=== PATIENT | female | born 1985 | race Caucasian/White ===

== ENCOUNTER 2022-09-14 06:52 | Outpatient (OUT) | payer MEDICARE, MEDICAID, SELFPAY ==
[2022-09-14 07:44] LABS: Basophils Absolute Auto 0.1 10^3/uL (0.0-0.1); Basophils Percent Auto 1.1 % (0.2-2.0); Eosinophils Absolute Auto 0.1 10^3/uL (0.0-0.7); Eosinophils Percent Auto 3.1 % (0.9-7.0); Hematocrit 35.2 % (36.0-48.0); Hemoglobin 12.1 g/dL (12.0-16.0); Immature Granulocytes Abs Auto 0.02 10^3/uL (0.00-0.03); Immature Granulocytes Pct Auto 0.4 % (0.0-0.5); Lymphocytes Absolute Auto 1.5 10^3/uL (1.2-3.8); Lymphocytes Percent Auto 34.2 % (20.5-60.0); Mean Corpuscular HGB Conc 34.4 g/dL (29.9-35.2); Mean Corpuscular Hemoglobin 32.4 pg (26.7-34.0); Mean Corpuscular Volume 94.1 fL (81.0-99.0); Mean Platelet Volume 8.6 fL (9.5-13.5); Monocytes Absolute Auto 0.9 10^3/uL (0.3-0.8); Monocytes Percent Auto 19.7 % (1.7-12.0); Neutrophils Absolute Auto 1.9 10^3/uL (1.4-6.5); Neutrophils Percent Auto 41.5 % (43.0-75.0); Platelet Count 301 10^3/uL (150-450); Red Blood Count 3.74 10^6/uL (4.20-5.40); Red Cell Distribution Width 12.4 % (11.0-15.0); White Blood Count 4.5 10^3/uL (4.0-11.0)
[2022-09-14 08:52] LABS: Alanine Aminotransferase 34 U/L (14-59); Albumin Globulin Ratio 0.9; Albumin Level 3.7 g/dL (3.4-5.0); Alkaline Phosphatase 53 U/L (46-116); Anion Gap 13.9; Aspartate Amino Transferase 26 U/L (15-37); BUN Creatinine Ratio 17.6; Bilirubin Total 0.2 mg/dL (0.2-1.0); Calcium 8.8 mg/dL (8.5-10.1); Carbon Dioxide 27.2 mmol/L (21.0-32.0); Chloride 97 mmol/L (98-107); Chol HDL Ratio 1.9; Cholesterol 144 mg/dL (<=200); Estimated GFR (African America >60 (>=60); Estimated GFR (Non-African Ame >60 (>=60); Globulin 4.1 g/dL; Glucose 100 mg/dL (74-106); HDL Cholesterol 77 mg/dL (40-60); Potassium 4.1 mmol/L (3.5-5.1); Sodium 134 mmol/L (136-145); Total Protein 7.8 g/dL (6.4-8.2); Triglycerides 42 mg/dL (<=150); VLDL CHOLESTEROL 8.4 mg/dL
[2022-09-15 04:12] LABS: Carbamazepine(Tegretol),S 8.3 ug/mL (4.0-12.0)
[2022-09-17 16:09] LABS: Lamotrigine (Lamictal), Serum 4.9 ug/mL (2.0-20.0)
== END 2022-09-14 06:53 | disposition home or self-care (01) ==
LOC: LAB 06:54
PROVIDERS: PCP Family Medicine; Visit Provider Family Medicine
DX: Z79.899 Other long term (current) drug therapy (principal); F31.9 Bipolar disorder, unspecified; E78.00 Pure hypercholesterolemia, unspecified
CPT/HCPCS: 36415; 80053; 80061; 80156; 80175; 85025

== ENCOUNTER 2022-10-03 18:11 | Emergency (ER) | payer MEDICARE, MEDICAID, SELFPAY ==
[2022-10-03 18:14] VITALS: BP 163/93; PULSE 85; RESP 20; TEMP 36.7; O2SAT 98; BMI 27.3
--- NOTE | 2022-10-03 18:30 | XR_ITS ---
The [address] [address] Patient Name: PJ CARD MRN: [id number] date: 1985 Sex: F Assigned Patient Location: ER Current Patient Location: ER Accession/Order Number: [id number] Exam Date: 10/03/2022 18:40 Report Date: 10/03/2022 19:10 At the request of: KYLE LARES Procedure: XR chest 1V EXAMINATION: XR chest 1V HISTORY: Chest pain COMPARISON: None. TECHNIQUE: Portable chest FINDINGS: The lung parenchyma is free of consolidation or infiltrate. No pneumothorax or pleural effusion. The cardiac, mediastinal and hilar contours are normal. The visualized osseous structures exhibit no gross abnormality. XR/XR chest 1V IMPRESSION: No acute cardiopulmonary abnormality. Electronically authenticated by: VIKTORIYA AGUDELO Date: 10/03/2022 19:10
--- NOTE | 2022-10-03 18:30 | ECG_ITS ---
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
--- NOTE | 2022-10-03 18:30 | XR_ITS ---
[address] [address] Patient Name: PJ CARD MRN: [id number] date: 1985 Sex: F Assigned Patient Location: ER Current Patient Location: ED.MAIN Accession/Order Number: [id number] Exam Date: 10/03/2022 18:40 Report Date: 10/03/2022 19:09 At the request of: KYLE LARES Procedure: XR knee RT 4V EXAM: XR knee RT 4V HISTORY: Right knee pain after fall COMPARISON: None. TECHNIQUE: 4 views FINDINGS: IMPRESSION: Nondescript soft tissue edema. Questionable small knee effusion. No visualized fracture, dislocation, subluxation or osseous lesion. Joint spaces are maintained. Electronically authenticated by: VIKTORIYA AGUDELO Date: 10/03/2022 19:09
--- NOTE | 2022-10-03 18:31 | ED.GENADUL1 ---
HPI - General Adult General Chief complaint: Chest Pain Stated complaint: CHEST PAIN Time Seen by Provider: 10/03/22 18:20 Mode of arrival: ambulance Limitations: language barrier History of Present Illness HPI narrative: patient sent from [facility] after complaining of chest pain that began around 4pm this afternoon. On arrival the patient complains of pain in the right knee where she has some bruising. She no longer complains of chest pain. PMHx notable for anxiety. She was able to ambulate on the right knee but could not tell us what happened to the knee. Staff member who called by phone before the patient arrived reported that the patient fell on or around 09/20/22 and the right knee pain and bruising started then. but the caregiver who accompanied the patient told me that she is at the house every day and that the patient fell onto a bent right knee 2 days ago. Related Data Allergies Allergy/AdvReac Type Severity Reaction Status Date / Time amoxicillin Allergy Unknown Verified 10/03/22 18:31 aripiprazole [From Abilify] Allergy Unknown Verified 10/03/22 18:31 metyrosine Allergy Unknown Verified 10/03/22 18:31 molindone [From Moban] Allergy Unknown Verified 10/03/22 18:31 nalbuphine [From Nubain] Allergy Unknown Verified 10/03/22 18:31 divalproex sodium AdvReac Nausea Verified 10/03/22 18:31 [From Depakote] sympathomimetics Allergy Unknown Uncoded 10/03/22 18:31 vicks 44d Allergy Unknown Uncoded 10/03/22 18:31 Exam Narrative Exam Narrative: Nurses notes and vital signs reviewed and patient is not hypoxic. afebrile General: Well-appearing and in no apparent distress. Skin: Warm, dry, no pallor noted. Head: Normocephalic, atraumatic. Neck: Supple, non-tender. Eye: Pupils are equal, round and EOMI. No scleral icterus. Cardiovascular: Regular Rate and Rhythm without murmur, gallop or rub. Respiratory: No accessory muscle use or respiratory distress. Lungs are clear to auscultation, no wheezing, rales or rhonchi Chest Wall: anterior chest wall tenderness without crepitus or subcutaneous emphysema Musculoskeletal: ecchymosis noted to the right knee anteriorly. She has normal ROM in that knee, no calf or popliteal tenderness, no lower extremity edema/swelling GI: Abdomen is soft, non-distended. Normal bowel sounds. No tenderness to palpation. No rebound, guarding, or rigidity noted. Neurological: A&O x4. No cranial nerve dysfunction observed. No truncal ataxia. Moves all extremities. Sensation intact. Psychiatric: Cooperative and interactive. Normal mood and affect. Constitutional Vital Signs, click to edit/add: Last Vital Signs Temp 98.1 F 10/03/22 18:14 Pulse 85 10/03/22 18:14 Resp 20 10/03/22 18:14 BP 163/93 H 10/03/22 18:14 Pulse Ox 98 10/03/22 18:14 O2 Del Method Room Air 10/03/22 18:14 Course Vital Signs Vital signs: Vital Signs Temperature 98.1 F 10/03/22 18:14 Pulse Rate 85 10/03/22 18:14 Respiratory Rate 20 10/03/22 18:14 Blood Pressure 163/93 H 10/03/22 18:14 Pulse Oximetry 98 10/03/22 18:14 Oxygen Delivery Method Room Air 10/03/22 18:14 Temperature 98.1 F 10/03/22 18:14 Pulse Rate 85 10/03/22 18:14 Respiratory Rate 20 10/03/22 18:14 Blood Pressure 163/93 H 10/03/22 18:14 Pulse Oximetry 98 10/03/22 18:14 Oxygen Delivery Method Room Air 10/03/22 18:14 Medical Decision Making MDM Narrative Medical decision making narrative: Patient was placed on monitor and storage bin tender and EKG obtained. EKG unremarkable. CXR obtained and was negative. X-rays of the right knee did not show acute fracture or dislocation - they were unchanged when compared with X-rays on 03/08/20. Caregiver informed of results and given reassurance. ED nurse ordered to place an SEAN wrap on the patient's right knee. Patient discharged back to [facility] Data Chest x-ray: My impression: NAD xr right knee: My impression: no acute fracture or dislocation. Findings present today were also seen on 03/08/20. ECG Data Interpretation: EKG interpretation: Emergency Department physician interpretation. Normal sinus rhythm at 75bpm. Normal axis, normal intervals and no ST segment elevation or depression. Discharge Plan Discharge Chief Complaint: Chest Pain Clinical Impression: Chest pain, Contusion of right knee Patient Disposition: Home, Self-Care Time of Disposition Decision: 19:07 Instructions: Swollen Knee Joint (ED), Knee Pain (ED), Chest Wall Pain (ED) Stand Alone Forms: Portal Instructions Referrals: JOHN MUNROE DO [Primary Care Provider] - 1 week
[2022-10-03 18:32] VITALS: PULSE 85
== END 2022-10-03 19:20 | disposition home or self-care (01) ==
PROVIDERS: Emergency Provider Emergency Medicine; PCP Family Medicine
DX: R07.9 Chest pain, unspecified (principal); S80.01XA Contusion of right knee, initial encounter; W19.XXXA Unspecified fall, initial encounter; F41.9 Anxiety disorder, unspecified; Z79.899 Other long term (current) drug therapy
CPT/HCPCS: 71045; 73564; 93005; 99284

== ENCOUNTER 2023-03-09 09:25 | Outpatient (OUT) | payer MEDICARE, MEDICAID, SELFPAY ==
--- NOTE | 2023-03-09 09:54 | MR_ITS ---
The [address] [address] Patient Name: PJ CARD MRN: [id number] date: 1985 Sex: F Assigned Patient Location: MRI Current Patient Location: MRI Accession/Order Number: [id number] Exam Date: 03/09/2023 10:00 Report Date: 03/09/2023 14:21 At the request of: JOHN MUNROE Procedure: MR pituitary wo/w con MRI brain and pituitary gland with and without contrast, 03/09/2023. HISTORY: Pituitary microadenoma. COMPARISON: MRI brain and pituitary gland with and without contrast, 11/21/2019. TECHNIQUE: Multiplanar, multisequence MRI imaging of the brain and pituitary gland with and without contrast. FINDINGS: The paranasal sinuses are clear. Mastoid air cells appear clear. Nasopharynx is normal. 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 Orbital contents are unremarkable. The extracranial soft tissue structures appear unremarkable. Ventricles are normal in size. There is no hydrocephalus. 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 This is unchanged. This does not place mass effect on the tectal plate. Mild chronic microvascular ischemic changes are seen in the white matter. This is stable from prior. No subdural fluid collection. Diffusion images are normal. No acute ischemic infarction. There appears to be mild asymmetric fullness of the right side of the pituitary gland which is unchanged from the prior exam. The pituitary gland is stable in size. Questionable adenoma on the right side measuring approximately 6 mm in diameter unchanged from previous. MR/MR pituitary wo/w con IMPRESSION: 1. Stable exam. 2. Mild asymmetric fullness of the right side of the pituitary gland possibly with a small microadenoma on the right side of the pituitary measuring approximately 6 mm. The pituitary gland appears stable in size. No significant change. 3. Pineal cyst stable. The remainder of the brain is unremarkable. Electronically authenticated by: MARY ANN PURVIS Date: 03/09/2023 14:21
--- NOTE | 2023-03-09 09:55 | XR_ITS ---
The [address] [address] Patient Name: PJ CARD MRN: [id number] date: 1985 Sex: F Assigned Patient Location: MRI Current Patient Location: MRI Accession/Order Number: [id number] Exam Date: 03/09/2023 11:10 Report Date: 03/09/2023 11:27 At the request of: JOHN MUNROE Procedure: XR DEXA axial skeleton EXAMINATION: XR DEXA axial skeleton, 03/09/2023 11:10 AM EST HISTORY: Osteopenia COMPARISON: 2020, 2018, 2014. TECHNIQUE: Dual-energy X-ray absorptiometry (DEXA) bone density study performed for the axial skeleton. HISTORY: Osteopenia FINDINGS: Bone mineral density AP spine L1-L4 measures 1.159 g/sq cm. T score -0.2. WHO classification: Normal. Lowest bone mineral density left femoral neck measuring 0.867 g/sq cm. T score -1.2. WHO classification: Osteopenia XR/XR DEXA axial skeleton IMPRESSION: Osteopenia. Moderate fracture risk Electronically authenticated by: VIKTORIYA JIMÉNEZ Date: 03/09/2023 11:27
== END 2023-03-09 09:26 | disposition home or self-care (01) ==
LOC: MRI 09:27
PROVIDERS: PCP Family Medicine; Visit Provider Family Medicine
DX: E34.8 Other specified endocrine disorders (principal); M85.80 Other specified disorders of bone density and structure, unspecified site; Z79.3 Long term (current) use of hormonal contraceptives
CPT/HCPCS: 70553; 77080; A9575

== ENCOUNTER 2023-04-28 06:28 | Outpatient (OUT) | payer MEDICARE, MEDICAID, SELFPAY ==
--- OUTSIDE RECORDS SUMMARY | 2023-04-28 06:31 | XMS_ITS | CCD ---
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 Name Role Phone SYSTEM, PROVIDER NOT IN Admitting Unavaila ble SYSTEM, PROVIDER NOT IN Referring Unavaila ble EVANS KILGORE Primary Care Unavailable Unavailable Primary Care Provider Unavailabl e PROVIDER, UNKNOWN Attending Unavailable PROVIDER, UNKNOWN Admitting Unavailable MUNROE, DR JOHN Gates Consulting Unavailable MUNROE, DR JOHN Gates Attending Unavailable MUNROE, DR JOHN Gates Admitting Unavailable MUNROE, DR JOHN Gates Primary Care Unavailable KARASIK ., DR PRUITT Admitting Unavailabl e KARASIK ., DR PRUITT Consulting Unavailabl e KARASIK ., DR PRUITT Attending Unavailabl e MUNROE, DR JOHN Gates Primary Care Unavailable MUNROE, DR JOHN Gates Consulting Unavailable MUNROE, DR JOHN Gates Attending Unavailable MUNROE, DR JOHN Gates Admitting Unavailable MUNROE, DR JOHN Gates Primary Care Unavailable OJHN MUNROE Primary Care Physician SHANEKA, JOHN Attending Unavailable MUNROE, JOHN Admitting Unavailable MUNROE, JOHN Attending Unavailable MUNROEJOHN Admitting Unavailable Allergies Allergy Classification Reported Allergen(s) Allergy Type Date of Onset Reaction(s) Facility (3 sources) Amoxicillin; Translations: [AMOXICILLIN] Drug Allergy 3 [facility] (4 sources) ARIPiprazole; Translations: [ABILIFY] Drug Allergy 3 [facility] Work Phone: (3 sources) Dextromethorphan ; Translations: [DEXTROMETHORPHA N HBR] Drug Allergy 3 [facility] (3 sources) metyroSINE; Translations: [METYROSINE] Drug Allergy 3 [facility] (3 sources) Molindone; Translations: [MOLINDONE] [facility] ([facility] sources) Nalbuphine; Translations: [NALBUPHINE] Drug Allergy 3 [facility] (3 sources) Valproate; Translations: [VALPROIC ACID] Drug Allergy 9 [facility] (3 sources) Food; Translations: [FOOD] Propensity to adverse reactions to drug 3 [facility] (3 sources) Sympathomimetics ; Translations: [SYMPATHOMIMETIC S] Propensity to adverse reactions to drug 3 [facility] (1 source) Amoxicillin Drug Allergy [facility] (1 source) metyroSINE Drug Allergy [facility] (1 source) Molindone Drug Allergy [facility] (1 source) Nalbuphine Drug Allergy [facility] (1 source) Valproate Drug Allergy [facility] (1 source) [facility] [address] [place] [address] Care Drug allergy (disorder) [facility] Medications Current Medications Medication Drug Class(es) Dates Sig (Normalized) Sig (Original) busPIRone hydrochloride 10 mg oral tablet (2 sources) take 1 tablet by mouth twice daily busPIRone (BUSPAR) 10 MG tablet Take 10 mg by mouth 2 times daily. 0 Active calcium polycarbophil (2 sources) Calcium Polycarbophil (FIBER-LAX ORAL) Take by mouth. 0 Active carBAMazepine 100 mg chewable tablet (2 sources) Mood Stabilizer carbamazepine (TEGRETOL) 100 MG chewable tablet carbamazepine 100 mg chewable tablet 0 Active cloNIDine hydrochloride 0.2 mg oral tablet (2 sources) Central alpha-2 Adrenergic Agonist Start: 06-12-2020 cloNIDine (CATAPRES) 0.2 MG tablet dicyclomine hydrochloride 20 mg oral tablet (2 sources) Anticholinergic take 1 tablet by mouth every six hours dicyclomine (BENTYL) 20 MG tablet Take 20 mg by mouth every 6 hours. 0 Active docusate sodium 100 mg oral capsule (2 sources) take 1 capsule by mouth three times daily docusate sodium (COLACE) 100 MG capsule Take 100 mg by mouth 3 times daily. 0 Active fenofibrate 134 mg oral capsule (2 sources) Peroxisome Proliferator Receptor alpha Agonist take 1 capsule by mouth once daily at breakfast fenofibrate micronized (LOFIBRA) 134 MG capsule Take 134 mg by mouth daily (with breakfast). 0 Active guanFACINE 1 mg oral tablet (2 sources) Central alpha-2 Adrenergic Agonist take 1.5 mg by mouth twice daily guanfacine (TENEX) 1 MG tablet Take 1.5 mg by mouth 2 times daily. 0 Active lamoTRIgine 25 mg oral tablet (2 sources) Mood Stabilizer, Anti-epileptic Agent take 2 tablets by mouth once daily lamotrigine (LAMICTAL) 25 MG tablet Take 50 mg by mouth daily. 0 Active loratadine 10 mg oral tablet (2 sources) take 1 tablet by mouth once daily loratadine (CLARITIN) 10 MG tablet Take 10 mg by mouth daily. 0 Active metoprolol tartrate 100 mg oral tablet (2 sources) beta-Adrenergic Molly take 1 tablet by mouth twice daily metoprolol (LOPRESSOR) 100 MG tablet Take 100 mg by mouth 2 times daily. 0 Active montelukast 10 mg oral tablet (2 sources) Leukotriene Receptor Antagonist take 1 tablet by mouth once daily montelukast (SINGULAIR) 10 MG tablet Take 10 mg by mouth daily. 0 Active naltrexone hydrochloride 50 mg oral tablet (2 sources) Opioid Antagonist take 1 tablet by mouth once daily naltrexone (DEPADE) 50 MG tablet Take 50 mg by mouth daily. 0 Active OLANZapine 20 mg oral tablet (2 sources) Atypical Antipsychotic take 1 tablet by mouth once daily olanzapine (ZYPREXA) 20 MG tablet Take 20 mg by mouth daily. 0 Active omeprazole 20 mg delayed release oral capsule (2 sources) Proton Pump Inhibitor take 1 capsule by mouth once daily omeprazole (PRILOSEC) 20 MG capsule Take 20 mg by mouth daily. 0 Active raNITIdine 150 mg oral tablet (2 sources) Histamine-2 Receptor Antagonist take 1 tablet by mouth twice daily ranitidine (ZANTAC) 150 MG tablet Take 150 mg by mouth 2 times daily. 0 Active zolpidem tartrate 10 mg oral tablet (2 sources) gamma-Aminobutyric Acid-ergic Agonist Start: 06-10-2020 zolpidem (AMBIEN) 10 MG tablet Problems Active Problems Problem Classification Problem Date Documented Date Episodic/Chronic Attention-deficit, conduct, and disruptive behavior disorders (2 sources) Attention deficit hyperactivity disorder; Translations: [Attention-deficit hyperactivity disorder, unspecified type] Onset: 05-25-2012 06-03-2018 Chronic Developmental disorders (2 sources) Moderate intellectual disability; Translations: [Moderate intellectual disabilities] Onset: 05-25-2012 05-25-2012 Chronic Disorders of teeth and jaw (2 sources) Chronic periodontitis; Translations: [Chronic periodontitis, unspecified] Onset: 06-09-2012 06-09-2012 Chronic Genitourinary symptoms and ill-defined conditions (5 sources) Unspecified abnormal findings in urine; Translations: [Other abnormal findings in urine] Onset: 05-17-2022 Episodic Past or Other Problems Problem Classification Problem Date Documented Date Episodic/Chronic Disorders of teeth and jaw (6 sources) Dental caries; Translations: [Dental caries, unspecified] Onset: 06-09-2012 06-09-2012 Episodic Immunizations and screening for infectious disease (1 source) Encounter for screening for human papillomavirus (HPV); Translations: [ENC SCREENING HUMAN PAPILLOMAVIRUS] Onset: 04-29-2022 Episodic Other screening for suspected conditions (not mental disorders or infectious disease) (6 sources) Possible ; Translations: [Encounter for test, result unknown] Onset: 06-09-2012 06-09-2012 Episodic Results Test Name Value Interpretation Reference Range Facility CarbamazepineOrdered By: SYS TEM SYSTEM on 04-13-2023 Carbamaz Lvl 6.9 microgram/mL Normal 4.0-12.0 Rem[facility] Comment on above: Performed By: #### 2 [id number], [id number] #### [facility] [address] [place] [address] Physician Orderon 04-13-2023 Physician Order [id number] 0#1.00TIFF Normal [facility] SodiumOrdered By: SYSTEM SYS TEM on 04-13-2023 Sodium [Moles/Vol] 134 mmol/L Low 135-145 Remiso l [facility] Comment on above: Performed By: #### 2 [id number], [id number] #### [facility] [address] [place] [address] CHEMISTRYOrdered By: SYSTEM SYSTEM on 02-23-2023 Carbamaz Lvl 8.7 microgram/mL Normal 4.0 - 12.0 mcg/mL Remisol Chem Sodium [Moles/Vol] 123 mmol/L Low 135 - 145 mmol/L Remisol Chem Carbamazepineon 02-23-2023 Carbamaz Lvl 8.7 microgram/mL Normal 4.0-12.0 [facility] Comment on above: Performed By: #### 2 [id number], [id number] #### [facility] [address] [place] [address] Physician Orderon 02-23-2023 Physician Order [id number] 6#1.00TIFF Normal [facility] Sodiumon 02-23-2023 Sodium [Moles/Vol] 123 mmol/L Low 135-145 [facility] Comment on above: Performed By: #### 2 [id number], [id number] #### [facility] [address] [place] [address] Progress Noteson 06-10-2022 Book Jogger Authentication Interface Message Text ----- May at 3:52:48 PM ----- ----- Provider: [id number] Mario -- Clinic: [place] ----- OR EVALUATION Patient presents for evaluation to determine best course of treatment due to history of . Moderate intellectual disabillity seizure disorder Patient is accompanied by caregiver for today's appointment. Patient cooperated for full intraoral exam. Clinical findings: Normal findings It is best suited that this patient have full comprehensive examination, radiographs and treatment completed in the OR setting. Explained that the patient will be added to our OR waiting list, and the legal guardian will be contacted once a time slot becomes available. Legal Guardian: Jessica Anderson ( family friend) Called [facility], she did not answer , consent could not be taken today Request for dental treatment in the OR was sent out [phone] NOTE: Note: Pt seen in the OR about 2 years ago. Next Visit: OR ----- Signed on May at 4:11:20 PM ----- ----- Provider: [id number] Ed Obrien DDS -- Clinic: [place] ----- Normal [facility] UA (CLEAN/CATCH) PHOTOGRAPHIC EQUIPMENT MECHANIC/MICRO I F IND.on 05-17-2022 Bilirubin Ql (U) Negative Normal NEGATIVE [facility] Comment on above: Performed By: #### U ACSIND #### [facility] [address] [place] [address] Dr. Pio Mack Clarity (U) CLEAR Normal CLEAR [facility] Comment on above: Performed By: #### U ACSIND #### [facility] [address] [address] [address] Pio Mack Color (U) LT. YELLOW Normal YELLOW [facility] Comment on above: Performed By: #### U ACSIND #### [facility] [address] [place] [address] Dr. Pio Mack Glucose Ql (U) Negative Normal NEGATIVE [facility] Comment on above: Performed By: #### U ACSIND #### [facility] [address] [place] [address] Dr. Pio Mack Hemoglobin Ql (U) Negative Normal NEGATIVE [facility] Comment on above: Performed By: #### U ACSIND #### [facility] [address] [place] [address] Dr. Pio Mack Ketones Ql (U) Negative Normal NEGATIVE [facility] Comment on above: Performed By: #### U ACSIND #### [facility] [address] [place] [address] Dr. Pio Mack LEUKOCYTES Negative Normal NEGATIVE [facility] Comment on above: Performed By: #### U ACSIND #### [facility] [address] [address] [address] Pio Mack Nitrite Ql (U) Negative Normal NEGATIVE [facility] Comment on above: Performed By: #### U ACSIND #### [facility] [address] [place] [address] Dr. Pio Mack pH (U) 7.5 [pH] Normal 5-9 [facility] Comment on above: Performed By: #### U ACSIND #### [facility] [address] [place] [address] Dr. Pio Mack SPEC GRAVITY 1.010 Normal 1.005-<=1.02 5 [facility] Comment on above: Performed By: #### U ACSIND #### [facility] [address] [place] [address] Dr. Pio Mack UA PROTEIN Negative Normal NEGATIVE/ TRACE [facility] Comment on above: Performed By: #### U ACSIND #### [facility] [address] [address] [address] Pio Mack UR MICRO IND NOT INDICATED Normal [facility] Comment on above: Performed By: #### U ACSIND #### [facility] [address] [address] [address] Pio Mack Urobilinogen Qn (U) 0.2 {Polina'U}/dL Normal 0.2 - 1. 0 [facility] Comment on above: Performed By: #### U ACSIND #### [facility] [address] [place] [address] Dr. Pio Mack PAP ACOG PANEL 2: 30 to 65on 05-06-2022 . . Normal [facility] Comment on above: Result Comment: Perf ormed at: WB Performed By: #### 4 [id number] #### [facility] [address] [place] [address] Dr. Pio Mack Age Gdln ACOG Testing 30-65 Normal [facility] Comment on above: Performed By: #### 4 [id number] #### [facility] [address] [place] [address] Dr. Pio Mack DIAGNOSIS: Comment Normal [facility] Comment on above: Result Comment: NEGA TIVE FOR INTRAEPITHELIAL LESION OR MALIGNANCY. Performed at: WB Performed By: #### 4 [id number] #### [facility] [address] [place] [address] Dr. Pio Mack HPV Aptima Negative Normal Negative [facility] Comment on above: Result Comment: This nucleic acid amplification test detects fourteen high-risk HPV types (16,18,31,33,35,39,45,51,52,56,58,59,66,68) without differentiation. Performed at: =G Performed By: #### 4 [id number] #### [facility] [address] [address] [address] Pio Mack HPV Genotype Reflex Comment Normal [facility] Comment on above: Result Comment: Crit ershashank not met, HPV Genotype not performed. Performed at: WB Performed By: #### 4 [id number] #### [facility] [address] [place] [address] Dr. Pio Mack Methodology: Comment Normal [facility] Comment on above: Result Comment: This liquid based ThinPrep(R) pap test was screened with the use of an image guided system. Performed at: WB Performed By: #### 4 [id number] #### [facility] [address] [place] [address] Dr. Pio Mack Note: Comment Normal [facility] Comment on above: Result Comment: The Pap smear is a screening test designed to aid in the detection of premalignant and malignant conditions of the uterine cervix. It is not a diagnostic procedure and should not be used as the sole means of detecting cervical cancer. Both false-positive and false-negative reports do occur. . Performed at: WB Performed By: #### 4 [id number] #### [facility] [address] [place] [address] Dr. Pio Mack Performed by: Comment Normal [facility] Comment on above: Result Comment: Ayesha Poe, Assembly Technician (ASCP) Performed at: WB Performed By: #### 4 [id number] #### [facility] [address] [place] [address] Dr. Pio Mack Specimen adequacy: Comment Normal [facility] Comment on above: Result Comment: Sati sfactory for evaluation. Endocervical and/or squamous metaplastic cells (endocervical component) are present. Performed at: WB Performed By: #### 4 [id number] #### [facility] [address] [place] [address] Dr. Pio Mack Encounters Encounter Date Encounter Type Care Provider Facility Start: 04-13-2023 End: 04-14-2023 ambulatory JOHN MUNROE Facility[facility] Start: 04-13-2023 End: 04-13-2023 Lab Drop off JOHN MUNROE [facility] Start: 02-23-2023 End: 02-23-2023 Lab Drop off JOHN MUNROE [facility] Start: 02-23-2023 End: 02-24-2023 ambulatory JOHN MUNROE Facility:[facility] Start: 07-21-[address] JOHN MUNROE Fac ility:[facility] Start: 06-10-2022 End: 06-14-2022 ambulatory UNKNOWN PROVIDER Facility:[facility] Start: 06-10-2022 End: 06-14-2022 Patient encounter procedure Scarlett Albarran DDS Work Phone: [facility] Start: 05-17-2022 End: 05-17-[address] JOHN MUNROE Facility:[facility] Start: 04-28-2022 End: 04-28-[address] SONAL CARRERO . Facility: Start: 04-06-2022 [facility] Start: 05-08-2018 End: 05-12-2018 Patient encounter procedure PROVIDER NOT IN SYSTEM [facility] Plan of Treatment Date Care Activity Detail Author Start: 2036 Shingles (RZV) Vaccine (1 of 2) Shingles (RZV) Vaccine (1 of 2) [facility] Start: 11-11-2029 Tetanus vaccination Tetanus (Td or Tdap) Booster [facility] Start: 05-03-2022 End: 05-03-2022 Patient encounter procedure 05/03/2022 Procedure Visit Dentistry Holli Nguyen DDS [address] [place] [address] [facility] Start: 11-21-2021 Influenza vaccination Influenza Vaccine (#1) [facility] Start: 02-11-2021 COVID-19 Vaccine (4 - Booster for Pfizer series) COVID-19 Vaccine (4 - Booster for Pfizer series) [facility] Start: 04-21-2008 Annual wellness visit Annual Wellness Visit (G0438) [facility] Start: 07-05-2007 Screening for malignant neoplasm of cervix Pap Smear [facility] Start: 2004 Hepatitis C screening Hepatitis C Antibody [facility] Start: 2001 HIV screening HIV Test [facility] Start: 1986 Screening for malignant neoplasm of breast Mammography shared decision making (35 through 39 years) [facility] Immunizations Immunization Date Immunization Notes Care Provider Susi malone 12-17-2020 influenza, injectabl e, quadrivalent, preservative free [facility] 12-17-2020 influenza virus vacc ine, unspecified formulation [facility] 03-25-2020 Pfizer (12+ yrs) KAE S-COV-2 (COVID-19) vaccine, mRNA, spike protein, LNP, pres. free, 30 mcg/0.3mL dose (WXG=222) [facility] 03-04-2020 Pfizer (12+ yrs) KAE S-COV-2 (COVID-19) vaccine, mRNA, spike protein, LNP, pres. free, 30 mcg/0.3mL dose (KPI=272) [facility] 11-28-2019 influenza, injectabl e, quadrivalent, preservative free [facility] 11-12-2019 tetanus toxoid, redu naila diphtheria toxoid, and acellular pertussis vaccine, adsorbed [facility] 11-30-2017 influenza, injectabl e, quadrivalent, preservative free [facility] 12-15-2016 influenza, injectabl e, quadrivalent, contains preservative [facility] 12-12-2014 influenza, injectabl e, quadrivalent, preservative free [facility] 11-10-2010 influenza, seasonal, injectable [facility] 07-07-2006 meningococcal polysa ccharide (groups A, C, Y and W-135) diphtheria toxoid conjugate vaccine (MCV4P) [facility] 11-29-2001 TD(adult) unspecified formulation [facility] 05-04-2001 hepatitis B vaccine, pediatric or pediatric/adolescent dosage [facility] 11-10-2000 hepatitis B vaccine, pediatric or pediatric/adolescent dosage [facility] 10-10-2000 hepatitis B vaccine, pediatric or pediatric/adolescent dosage [facility] 05-30-1998 measles, mumps and r ubella virus vaccine [facility] 12-03-1991 TD(adult) unspecified formulation [facility] 12-03-1991 trivalent poliovirus vaccine, live, oral [facility] 09-06-1988 diphtheria, tetanus toxoids and pertussis vaccine [facility] 09-06-1988 trivalent poliovirus vaccine, live, oral [facility] 01-23-1988 haemophilus influenz ae type b vaccine, conjugate unspecified formulation [facility] 04-30-1987 measles, mumps and r ubella virus vaccine [facility] 1986 diphtheria, tetanus toxoids and pertussis vaccine [facility] 1986 diphtheria, tetanus toxoids and pertussis vaccine [facility] 1986 trivalent poliovirus vaccine, live, oral [facility] 1986 diphtheria, tetanus toxoids and pertussis vaccine [facility] 1986 trivalent poliovirus vaccine, live, oral [facility] Payers Date Payer Category Payer Medicaid [id number] 2007 Medicare MEDICARE MEDICAR E PART A & B [id number] 2007-Present [address] [place] [address] Medicare [id number] 1986 Unknown [id number] 1986 Unknown [id number] 1986 Unknown [id number] 1986 Unknown [id number] 1986 Unknown [id number] 1986 Unknown [id number] 1958 Medicaid [id number] 1958 Medicare [id number] Social History Date Type Detail Facility Start: 06-13-2020 Tobacco smoking stat us [facility] Never smoked tobacco [facility] Work Phone: Start: 06-13-2020 Tobacco use and exposure Smokeless tobacco non-user [facility] Start: 07-15-2020 Alcohol intake Lifetime non-d mark (finding) [facility] Start: 06-13-2020 History SDOH Alcohol Frequency 1 [facility] Start: 1985 Sex Assigned At Not on file [facility] Tobacco smoking status No Smokin g Status Entered [facility] Sex Assigned At Female [facility] History of Present illness Narrative 06-10-2022 Scarlett Albarran DDS - 06/10/2022 1:29 PM EDT Note Date & Type Note Facility 06-10-2022 History of Presen t illness Narrative ----- May at 3:52:48 PM ----- ----- Provider: [id number] Resident Betsy -- Clinic: [place] ----- OR EVALUATION Patient presents for evaluation to determine best course of treatment due to history of . Moderate intellectual disabillity seizure disorder Patient is accompanied by caregiver for today's appointment. Patient cooperated for full intraoral exam. Clinical findings: Normal findings It is best suited that this patient have full comprehensive examination, radiographs and treatment completed in the OR setting. Explained that the patient will be added to our OR waiting list, and the legal guardian will be contacted once a time slot becomes available. Legal Guardian: Jessica Anderson ( family friend) Called [facility], she did not answer , consent could not be taken today Request for dental treatment in the OR was sent out [phone] NOTE: Note: Pt seen in the OR about 2 years ago. Next Visit: OR ----- Signed on May at 4:11:20 PM ----- ----- Provider: [id number] Ed Obrien DDS -- Clinic: [place] ----- documented in this encounter [facility] Evaluation + Plan note Note Date & Type Note Facility Evaluation + Plan note No data available for this section [facility] Hospital Discharge instructions Note Date & Type Note Facility Hospital Discharge instructions No data available for this section [facility] Progress note Note Date & Type Note Facility Progress note No data available for this section [facility] Summary Purpose Family History No Family History Records FoundNo Family History Records FoundNo Family History Records Found No data available for this section No data available for this section No Family History Records Found Advance Directives No Advanced Directives Records FoundNo Advanced Directives Records FoundNo Advanced Directives Records FoundNo Advanced Directives Records Found Additional Source Comments INFORMATION SOURCE (unrecogn ized section and content) DATE CREATED AUTHOR 05/12/2018 [facility] DATE CREATED AUTHOR AUTHOR'S ORGANIZ ATION 06/17/2022 [facility] DATE CREATED AUTHOR AUTHOR'S ORGANIZ ATION 07/30/2022 [facility] DATE CREATED AUTHOR AUTHOR'S ORGANIZ ATION 04/21/2023 [facility] Patient Care team informatio n (unrecognized section and content) Personnel Name: JOHN MUNROE DO Address: Address: [address] [place] [address] Personnel Name: MUNROEJOHN NEVAREZ DO Address: Address: [address] [place] [address] FOR RECORDS PERTAINING TO PATIENTS WHO ARE OR HAVE BEEN ENROLLED IN A CHEMICAL DEPENDENCY/SUBSTANCEABUSE PROGRAM, SOME INFORMATION MAY BE OMITTED. This clinical summary was aggregated from multiple sources. Caution should be exercised in using it in the provision of clinical care. This summary normalizes information from multiple sources, and as a consequence, information in this document may materially change the coding, format and clinical context of patient data. In addition, data may be omitted in some cases. CLINICAL DECISIONS SHOULD BE BASED ON THE PRIMARY CLINICAL RECORDS. [facility] [email or web address] [facility]. provides no warranty or guarantee of the accuracy or completeness of information in this document.
[2023-04-28 07:03] LABS: Sodium 131 mmol/L (136-145)
== END 2023-04-28 06:29 | disposition home or self-care (01) ==
LOC: LAB 06:29
PROVIDERS: PCP Family Medicine; Visit Provider Family Medicine
DX: R79.9 Abnormal finding of blood chemistry, unspecified (principal)
CPT/HCPCS: 36415; 84295

== ENCOUNTER 2023-05-24 21:41 | Inpatient (IN) | payer MEDICARE, MEDICAID, SELFPAY ==
--- NOTE | 2023-05-24 21:47 | ED_ITS ---
HPI - Allergic Reaction General Chief complaint: Allergic Reaction Stated complaint: Allergic Reaction Time Seen by Provider: 05/24/23 21:44 History of Present Illness HPI narrative: patient is mentally slow. Resides at senior living. Developed swelling of her face this afternoon. Physician on called prescribed antibiotic concerned it may be an infection of her sinuses. She now presents with what is suspected to be a possible allergic reaction as she has facial swelling. no fever. she is not able to provide history other than to say it feels hot. she does not appear short of breath and has no stridor MD complaint: Reports allergic reaction, hives and facial swelling Related Data Home Medications ?Medication ?Instructions ?Recorded ?Confirmed atomoxetine 40 mg capsule 40 mg PO QPM 05/24/23 05/25/23 atomoxetine 60 mg capsule 60 mg PO QAM 05/24/23 05/25/23 calcium carbonate 600 mg-vitamin 1 tab PO BID 05/24/23 05/25/23 D3 20 mcg (800 unit) tablet carbamazepine 200 mg 200 mg PO Q12H 05/24/23 05/25/23 tablet,extended release,12 hr carbamazepine 400 mg 400 mg PO DAILY 05/24/23 05/25/23 tablet,extended release,12 hr cefdinir 300 mg capsule 300 mg PO Q12H 05/24/23 05/25/23 clonidine HCl 0.2 mg tablet 0.2 mg PO Q8H 05/24/23 05/25/23 dicyclomine 20 mg tablet 20 mg PO BID 05/24/23 05/25/23 docusate sodium 100 mg capsule 200 mg PO BID 05/24/23 05/28/23 fenofibrate micronized 134 mg 134 mg PO BEDTIME 05/24/23 05/25/23 capsule fluorouracil 5 % topical cream 1 applic topical BID 05/24/23 05/25/23 guanfacine 2 mg tablet 2 mg PO TID 05/24/23 05/25/23 lamotrigine 150 mg tablet 300 mg PO BEDTIME 05/24/23 05/25/23 lamotrigine 200 mg tablet 200 mg PO DAILY 05/24/23 05/25/23 loratadine 10 mg tablet 10 mg PO Q24H 05/24/23 05/24/23 metoprolol tartrate 100 mg tablet 100 mg PO QID 05/24/23 05/25/23 montelukast 10 mg tablet 10 mg PO DAILY 05/24/23 05/25/23 olanzapine 20 mg tablet 20 mg PO QPM 05/24/23 05/28/23 omeprazole 20 mg capsule,delayed 20 mg PO DAILY 05/24/23 05/25/23 release paliperidone 6 mg tablet,extended 6 mg PO BID 05/24/23 05/25/23 release 24 hr calcium polycarbophil 625 mg 1,250 mg PO DAILY 05/25/23 05/25/23 tablet (Fiber-Lax) levonorgestrel-ethinyl estradiol 1 tab PO DAILY 05/25/23 05/25/23 0.1 mg-20 mcg tablet (Aviane) lamotrigine 100 mg tablet 100 mg PO QPM 05/28/23 05/28/23 olanzapine 10 mg tablet (Zyprexa) 10 mg PO QPM 05/28/23 05/28/23 Previous Rx's ?Medication ?Instructions ?Recorded doxycycline hyclate 100 mg capsule 100 mg PO BID 10 days #20 caps 05/28/23 prednisone 50 mg tablet 50 mg PO DAILY 5 days #5 tabs 05/28/23 Allergies Allergy/AdvReac Type Severity Reaction Status Date / Time acetaminophen [From Tylenol] Allergy Intermediate Swelling Verified 05/24/23 23:35 of the Eye guaifenesin [From Mucinex] Allergy Intermediate Swelling Verified 05/24/23 21:48 of the Eye amoxicillin Allergy Unknown Verified 05/24/23 21:48 aripiprazole [From Abilify] Allergy Unknown Verified 05/24/23 21:48 metyrosine Allergy Unknown Verified 05/24/23 21:48 molindone [From Moban] Allergy Unknown Verified 05/24/23 21:48 nalbuphine [From Nubain] Allergy Unknown Verified 05/24/23 21:48 divalproex sodium AdvReac Nausea Verified 05/24/23 21:48 [From Depakote] sympathomimetics Allergy Unknown Uncoded 05/24/23 21:48 vicks 44d Allergy Unknown Uncoded 05/24/23 21:48 Review of Systems ROS Status of ROS unobtainable due to mental status [facility] Medical History (Updated 05/28/23 @ 10:35 by Bhanu Nieves MD) Chest pain ?R07.9 - Chest pain, unspecified (ICD-10) Contusion of right knee ?S80.01XA - Contusion of right knee, initial encounter (ICD-10) Facial rash ?R21 - Rash and other nonspecific skin eruption (ICD-10) Cyst of pineal gland ?E34.8 - Other specified endocrine disorders (ICD-10) Mood disorder ?F39 - Unspecified mood [affective] disorder (ICD-10) Bursitis of right patella ?M70.51 - Other bursitis of knee, right knee (ICD-10) Astigmatism ?H52.209 - Unspecified astigmatism, unspecified eye (ICD-10) Essential familial hypercholesterolemia ?E78.01 - Familial hypercholesterolemia (ICD-10) Hormone imbalance ?E34.9 - Endocrine disorder, unspecified (ICD-10) GERD (gastroesophageal reflux disease) ?K21.9 - Gastro-esophageal reflux disease without esophagitis (ICD-10) Constipation ?K59.00 - Constipation, unspecified (ICD-10) Seasonal allergies ?J30.2 - Other seasonal allergic rhinitis (ICD-10) Seizure ?R56.9 - Unspecified convulsions (ICD-10) Microadenoma ?D36.9 - Benign neoplasm, unspecified site (ICD-10) Osteopenia ?M85.80 - Other specified disorders of bone density and structure, unspecified site (ICD-10) Hyperopia ?H52.00 - Hypermetropia, unspecified eye (ICD-10) Bipol I sing man rem NOS ?F30.3 - Manic episode in partial remission (ICD-10) PTSD (post-traumatic stress disorder) ?F43.10 - Post-traumatic stress disorder, unspecified (ICD-10) Dissociative disorder ?F44.9 - Dissociative and conversion disorder, unspecified (ICD-10) Impulse control disorder ?F63.9 - Impulse disorder, unspecified (ICD-10) ADHD (attention deficit hyperactivity disorder) ?F90.9 - Attention-deficit hyperactivity disorder, unspecified type (ICD-10) Surgical History (Updated 05/24/23 @ 22:22 by Sara Rodriguez) History of cholecystectomy ?Z90.49 - Acquired absence of other specified parts of digestive tract (ICD- 10) Exam Constitutional Other: awake. swelling and erythema of her face [place] about her eyes and her cheeks oral cavity appears dry. limited eval as patient not opening her mouth completely. No obvious swelling. No effort to breath or appearance of distress related to her breathing HENMT Common normals: normocephalic and head/scalp atraumatic Other: puffiness of bilat eyelids R>L Eye Common normals: EOMs intact bilaterally and conjunctivae normal Respiratory Common normals: normal respiratory effort, no retractions, no use of accessory muscles and clear to auscultation bilaterally Cardio Common normals: regular rate, regular rhythm, S1 normal heart sound and S2 normal heart sound GI Common normals: Normal to inspection, nondistended, normoactive bowel sounds present Extremity Common normals: normal to inspection and full ROM Neuro Common normals: moves all extremities and no focal motor deficits Course Course Hospital Course: Reason for admission: See ER note and H&P for details. 37 y/o female with a history of MRDD who presented from senior living with possible allergic reaction. Developed facial swelling and PCP started cefdinir. Developed increased redness and swelling and sent to ER. WBC elevated at 24.[address] showed periorbital cellulitis and admitted. Hospital course: Started fortaz and flagyl. Redness and swelling worsened and added vancomycin. C/o itching and on solu-medrol. Repeat CT showed increased edema but no abscess. Gradually improved. WBC decreased. Afebrile. Redness and swelling much improved. Tolerating oral intake. Discharged home in stable condition. Will resume cefdinir and add doxycycline. Take prednisonen x 5 days. Resume home medication as directed. MDM - Allergic Reaction MDM Narrative Medical decision making narrative: patient presents with what appears to be an allergic reaction involving only her face. She has a dry eczematous confluent rash of her face that does not have the appearance of cellulitis . she has puffiness of both periorbital eyelids R>L. Difficult to grade how tender her eyelids are because anywhere you touch her hurts. Her WBC is elevated with left shift but she is afebrile . treated in the department as an allergic reaction with pepcid, benadryl and solumedrol but not real change with the treatment. CT face ordered and returned with findings suggestive of orbital cellulitis. Discussed with hospitalist and will plan admission Imaging Data CT scan - chest: Radiologist's impression: ITS Impressions Facial Bones CT 05/25/23 00:07 IMPRESSION: 1. Findings suggest acute right periorbital and infraorbital cellulitis involving mostly infraorbital soft tissues. Critical value was reported to Physician: Ryan Felix by Dr. Amari Cat on 05/25/2023 12:46 AM EDT. Electronically authenticated by: AMARI CAT Date: 05/25/2023 00:46 Discharge Plan Discharge Chief Complaint: Allergic Reaction Clinical Impression: Cellulitis of right orbit, Facial rash Patient Disposition: Admitted As Inpatient Discharge Date/Time: 05/25/23 01:28
[2023-05-24 21:48] VITALS: BP 137/104; TEMP 37.1; BMI 29.2
--- OUTSIDE RECORDS SUMMARY | 2023-05-24 21:51 | XMS_ITS | CCD ---
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[employer] Name Role Phone SYSTEM, PROVIDER NOT IN [...] DR JOHN Gates Primary Care Unavailable MUNROE, JOHN Primary Care Physician [phone] SHANEKA, JOHN Attending Unavailable MUNROE, JOHN Admitting Unavailable MUNROE, JOHN Attending Unavailable MUNROE, JOHN Admitting Unavailable DOLKAMINI CRENSHAW Attending Unavailable Allergies Allergy Classification Reported Allergen(s) Allergy Type Date of Onset Reaction(s) Facility (3 sources) Amoxicillin; Translations: [AMOXICILLIN] Drug Allergy 3 [facility] (4 sources) ARIPiprazole; Translations: [ABILIFY] Drug Allergy 3 [facility] Work Phone: (3 sources) Dextromethorphan ; Translations: [DEXTROMETHORPHA N HBR] Drug Allergy 3 [facility] (3 sources) metyroSINE; Translations: [METYROSINE] Drug Allergy 3 [facility] (3 sources) Molindone; Translations: [MOLINDONE] [facility] ([facility] sources) Nalbuphine; Translations: [NALBUPHINE] Drug Allergy 3 [facility] (3 sources) Valproate; Translations: [VALPROIC ACID] Drug Allergy 9 [facility] (3 sources) Food; Translations: [FOOD] Propensity to adverse reactions to drug 3 [facility] (3 sources) Sympathomimetics ; Translations: [SYMPATHOMIMETIC S] Propensity to adverse reactions to drug 3 [facility] (1 source) Amoxicillin Drug Allergy [facility] (1 source) metyroSINE Drug Allergy [facility] (1 source) Molindone Drug Allergy [facility] (1 source) Nalbuphine Drug Allergy [facility] (1 source) Valproate Drug Allergy [facility] (1 source) [facility] [address] [place] [address] Care Drug allergy (disorder) [facility] Medications Current Medications Medication Drug [...] Comment on above: Performed By: #### 2 [id number], [id number] #### [facility] [address] [place] [address] Physician Orderon 04-13-2023 Physician Order [id number] 0#1.00TIFF Normal [facility] SodiumOrdered By: SYSTEM SYS TEM on 04-13-2023 Sodium [Moles/Vol] 134 mmol/L Low 135-145 Remiso l Chem Comment on above: Performed By: #### 2 [id number], [id number] #### [facility] [address] [place] [address] CHEMISTRYOrdered By: SYSTEM SYSTEM on 02-23-2023 Carbamaz Lvl 8.7 microgram/mL Normal 4.0 - 12.0 mcg/mL Remisol Chem Sodium [Moles/Vol] 123 mmol/L Low 135 - 145 mmol/L Remisol Chem Carbamazepineon 02-23-2023 Carbamaz Lvl 8.7 microgram/mL Normal 4.0-12.0 [facility] Comment on above: Performed By: #### 2 [id number], [id number] #### [facility] [address] [place] [address] Physician Orderon 02-23-2023 Physician Order [id number] 6#1.00TIFF Normal [facility] Sodiumon 02-23-2023 Sodium [Moles/Vol] 123 mmol/L Low 135-145 [facility] Comment on above: Performed By: #### 2 [id number], [id number] #### [facility] [address] [place] [address] Progress Noteson 06-10-2022 Wildlife Refuge Manager Authentication Interface Message Text ----- May at 3:52:48 PM ----- ----- Provider: [id number] Mario -- Clinic: [place] ----- OR EVALUATION Patient presents for evaluation [...] treatment in the OR was sent out [phone] NOTE: Note: Pt seen in the OR about 2 years ago. 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 Pio Mack Clarity (U) CLEAR Normal CLEAR [facility] Comment on above: Performed By: #### U ACSIND #### [facility] [address] [address] [address] Pio Mack Color (U) LT. YELLOW Normal YELLOW [facility] Comment on above: Performed By: #### U ACSIND #### [facility] [address] [address] [address] Pio Mack Glucose Ql (U) Negative Normal NEGATIVE [facility] Comment on above: Performed By: #### U ACSIND #### [facility] [address] [place] [address] Dr. Pio Mack Hemoglobin Ql (U) Negative Normal NEGATIVE [facility] Comment on above: Performed By: #### U ACSIND #### [facility] [address] [address] [address] Pio Mack Ketones Ql (U) Negative Normal NEGATIVE [facility] Comment on above: Performed By: #### U ACSIND #### [facility] [address] [address] [address] Pio Mack LEUKOCYTES Negative Normal NEGATIVE [facility] Comment on above: Performed By: #### U ACSIND #### [facility] [address] [address] [address] Pio Mack Nitrite Ql (U) Negative Normal NEGATIVE [facility] Comment on above: Performed By: #### U ACSIND #### [facility] [address] [address] [address] Pio Mack pH (U) 7.5 [pH] Normal 5-9 [facility] Comment on above: Performed By: #### U ACSIND #### [facility] [address] [place] [address] Dr. Pio Mack SPEC GRAVITY 1.010 Normal 1.005-<=1.02 5 [facility] Comment on above: Performed By: #### U ACSIND #### [facility] [address] [address] [address] Pio Mack UA PROTEIN Negative Normal NEGATIVE/ TRACE [facility] Comment on above: Performed By: #### U ACSIND #### [facility] [address] [address] [address] Pio Mack UR MICRO IND NOT INDICATED Normal [facility] Comment on above: Performed By: #### U ACSIND #### [facility] [address] [address] [address] Pio Mack Urobilinogen Qn (U) 0.2 {Polina'U}/dL Normal 0.2 - 1. 0 [facility] Comment on above: Performed By: #### U ACSIND #### [facility] [address] [place] [address] Dr. Pio Mack PAP ACOG PANEL 2: 30 to 65on 05-06-2022 . . Normal [facility] Comment on above: Result Comment: Perf ormed at: WB Performed By: #### 4 [id number] #### [facility] [address] [place] [address] Dr. Pio Mack Age Gdln ACOG Testing 30-65 Normal [facility] Comment on above: Performed By: #### 4 [id number] #### [facility] [address] [place] [address] Dr. Pio Mack DIAGNOSIS: Comment Normal [facility] Comment on above: Result Comment: NEGA TIVE FOR INTRAEPITHELIAL LESION OR MALIGNANCY. Performed at: WB Performed By: #### 4 [id number] #### [facility] [address] [place] [address] Dr. Pio Mack HPV Aptima Negative Normal Negative [facility] Comment on above: Result Comment: This nucleic acid amplification test detects fourteen high-risk HPV types (16,18,31,33,35,39,45,51,52,56,58,59,66,68) without differentiation. Performed at: =G Performed By: #### 4 [id number] #### [facility] [address] [address] [address] Pio Mack HPV Genotype Reflex Comment Normal [facility] Comment on above: Result Comment: Crit eria not met, HPV Genotype not performed. Performed at: WB Performed By: #### 4 [id number] #### [facility] [address] [place] [address] Dr. Pio Mack Methodology: Comment Normal [facility] Comment on above: Result Comment: This liquid based ThinPrep(R) pap test was screened with the use of an image guided system. Performed at: WB Performed By: #### 4 [id number] #### [facility] [address] [place] [address] Dr. Pio Mack Note: Comment Normal [facility] Comment on above: Result Comment: The Pap smear is a screening test designed to aid in the detection of premalignant and malignant conditions of the uterine cervix. It is not a diagnostic procedure and should not be used as the sole means of detecting cervical cancer. Both false-positive and false-negative reports do occur. . Performed at: WB Performed By: #### 4 [id number] #### [facility] [address] [place] [address] Dr. Pio Mack Performed by: Comment Normal [facility] Comment on above: Result Comment: Ayesha Poe, Sand Sifter (ASCP) Performed at: WB Performed By: #### 4 [id number] #### [facility] [address] [place] [address] Dr. Pio Mack Specimen adequacy: Comment Normal [facility] Comment on above: Result Comment: Sati sfactory for evaluation. Endocervical and/or squamous metaplastic cells (endocervical component) are present. Performed at: WB Performed By: #### 4 [id number] #### [facility] [address] [place] [address] Dr. Pio Mack Encounters Encounter Date Encounter Type Care Provider Facility Start: 05-04-2023 End: 05-04-2023 ambulatory KAMINI RAMIREZ Not Available Start: 04-13-2023 End: 04-14-2023 ambulatory JOHN MUNROE Facility:[facility] Start: 04-13-2023 End: 04-13-2023 Lab Drop off JOHN MUNROE [facility] Start: 02-23-2023 End: 02-23-2023 Lab Drop off JOHN MUNROE [facility] Start: 02-23-2023 End: 02-24-2023 ambulatory JOHN MUNROE Facility:[facility] Start: 07-21-[address] JOHN MUNROE Fac ility:[facility] Start: 06-10-2022 End: 06-14-2022 ambulatory UNKNOWN PROVIDER Facility:[facility] Start: 06-10-2022 End: 06-14-2022 Patient encounter procedure Scarlett Avis DDSylvia Work Phone: [facility] Start: 05-17-2022 End: 05-17-[address] JOHN MUNROE Facility:[facility] Start: 04-28-2022 End: 04-28-[address] SONAL CARRERO . Facility: Start: 04-06-2022 Letter encounter [facility] Start: 05-08-2018 End: 05-12-2018 Patient encounter procedure PROVIDER NOT IN SYSTEM [facility] Plan of Treatment Date Care Activity Detail Author Start: 2036 Shingles (RZV) Vaccine (1 of 2) Shingles (RZV) Vaccine (1 of 2) [facility] Start: 11-11-2029 Tetanus vaccination Tetanus (Td or Tdap) Booster [facility] Start: 05-03-2022 End: 05-03-2022 Patient encounter procedure 05/03/2022 Procedure Visit Dentistry Holli Nguyen DDS [address] [place] [address] [facility] Start: 11-21-2021 Influenza vaccination Influenza Vaccine (#1) [facility] Start: 02-11-2021 COVID-19 Vaccine (4 - Booster for Pfizer series) COVID-19 Vaccine (4 - Booster for Pfizer series) [facility] Start: 04-21-2008 Annual wellness visit Annual Wellness Visit (G0438) [facility] Start: 07-05-2007 Screening for malignant neoplasm of cervix Pap Smear [facility] Start: 2004 Hepatitis C screening Hepatitis C Antibody [facility] Start: 2001 HIV screening HIV Test [facility] Start: 1986 Screening for malignant neoplasm of breast Mammography shared decision making (35 through 39 years) [facility] Immunizations Immunization Date Immunization Notes Care Provider Fa cility 12-17-2020 influenza, injectabl e, quadrivalent, preservative free [facility] 12-17-2020 influenza virus vacc ine, unspecified formulation [facility] 03-25-2020 Pfizer (12+ yrs) KAE S-COV-2 (COVID-19) vaccine, mRNA, spike protein, LNP, pres. free, 30 mcg/0.3mL dose (KWQ=933) [facility] 03-04-2020 Pfizer (12+ yrs) KAE S-COV-2 (COVID-19) vaccine, mRNA, spike protein, LNP, pres. free, 30 mcg/0.3mL dose (FDI=672) [facility] 11-28-2019 influenza, injectabl e, quadrivalent, preservative free [facility] 11-12-2019 tetanus toxoid, redu naila diphtheria toxoid, and acellular pertussis vaccine, adsorbed [facility] 11-30-2017 influenza, injectabl e, quadrivalent, preservative free [facility] 12-15-2016 influenza, injectabl e, quadrivalent, contains preservative [facility] 12-12-2014 influenza, injectabl e, quadrivalent, preservative free [facility] 11-10-2010 influenza, seasonal, injectable [facility] 07-07-2006 meningococcal polysa ccharide (groups A, C, Y and W-135) diphtheria toxoid conjugate vaccine (MCV4P) [facility] 11-29-2001 TD(adult) unspecified formulation [facility] 05-04-2001 hepatitis B vaccine, pediatric or pediatric/adolescent dosage [facility] 11-10-2000 hepatitis B vaccine, pediatric or pediatric/adolescent dosage [facility] 10-10-2000 hepatitis B vaccine, pediatric or pediatric/adolescent dosage [facility] 05-30-1998 measles, mumps and r ubella virus vaccine [facility] 12-03-1991 TD(adult) unspecified formulation [facility] 12-03-1991 trivalent poliovirus vaccine, live, oral [facility] 09-06-1988 diphtheria, tetanus toxoids and pertussis vaccine [facility] 09-06-1988 trivalent poliovirus vaccine, live, oral [facility] 01-23-1988 haemophilus influenz ae type b vaccine, conjugate unspecified formulation [facility] 04-30-1987 measles, mumps and r ubella virus vaccine [facility] 1986 diphtheria, tetanus toxoids and pertussis vaccine [facility] 1986 diphtheria, tetanus toxoids and pertussis vaccine [facility] 1986 trivalent poliovirus vaccine, live, oral [facility] 1986 diphtheria, tetanus toxoids and pertussis vaccine [facility] 1986 trivalent poliovirus vaccine, live, oral [facility] Payers Date Payer Category Payer Medicaid [id number] 2007 Medicare MEDICARE MEDICAR E PART A & B [id number] 2007-Present [address] [place] [address] Medicare [id number] 1986 Unknown [id number] 1986 Unknown [id number] 1986 Unknown [id number] 1986 Unknown [id number] 1986 Unknown [id number] 1986 Unknown [id number] 1986 Unknown [id number] 1959 Medicaid [id number] 1958 Medicare [id number] Social History Date Type Detail Facility [facility]: [facility] Work Phone: Start: 06-13-2020 Tobacco use and exposure Smokeless tobacco non-user [facility] Start: 07-15-2020 Alcohol intake Lifetime non-d mark (finding) [facility] Start: 06-13-2020 History SDOH Alcohol Frequency 1 [facility] Start: 1985 Sex Assigned At Not on file [facility] Tobacco smoking status No Smokin g Status Entered [facility] Sex Assigned At Female [facility] History of Present illness Narrative 06-10-2022 Scarlett Albarran DDS - 06/10/2022 1:29 PM EDT Note Date & Type Note Facility 06-10-2022 History of Presen t illness Narrative ----- May at 3:52:48 PM ----- ----- Provider: [id number] Albarran, -- Clinic: [place] ----- OR EVALUATION Patient presents for evaluation [...] treatment in the OR was sent out [phone] NOTE: Note: Pt seen in the OR about 2 years ago. Next Visit: OR ----- Signed on May at 4:11:20 PM ----- ----- Provider: Satinder Obrien DDS -- Clinic: [place] ----- documented in this encounter [facility] Evaluation + Plan note Note Date & Type Note Facility Evaluation + Plan note No data available for this section [facility] Hospital Discharge instructions Note Date & Type Note Facility Hospital Discharge instructions No data available for this section [facility] Progress note Note Date & Type Note Facility Progress note No data available for this section [facility] Summary Purpose Family History No Family History Records FoundNo Family History Records FoundNo Family History Records Found No data available for this section No data available for this section No Family History Records FoundNo Family History Records Found Advance Directives No Advanced Directives Records FoundNo Advanced Directives Records FoundNo Advanced Directives Records FoundNo Advanced Directives Records FoundNo Advanced Directives Records Found Additional Source Comments INFORMATION SOURCE (unrecogn ized section and content) DATE CREATED AUTHOR 05/12/2018 [facility] DATE CREATED AUTHOR AUTHOR'S ORGANIZ ATION 06/17/2022 [facility] DATE CREATED AUTHOR AUTHOR'S ORGANIZ ATION 07/30/2022 [facility] DATE CREATED AUTHOR AUTHOR'S ORGANIZ ATION 04/21/2023 [facility] DATE CREATED AUTHOR AUTHOR'S ORGANIZ ATION 05/05/2023 [facility]IC Patient Care team informatio n (unrecognized section and content) Personnel Name: JOHN MUNROE DO Address: Address: [address] [place] [address] Personnel Name: JOHN MUNROE DO Address: Address: [address] [place] [address] FOR RECORDS PERTAINING TO PATIENTS WHO ARE [...] BE BASED ON THE PRIMARY CLINICAL RECORDS. [facility] [employer] [facility]. provides no warranty or guarantee of the accuracy or completeness of information in this document.
[2023-05-24 22:03] LABS: Hematocrit 33.7 % (36.0-48.0); Hemoglobin 11.2 g/dL (12.0-16.0); Mean Corpuscular HGB Conc 33.2 g/dL (29.9-35.2); Mean Corpuscular Hemoglobin 31.4 pg (26.7-34.0); Mean Corpuscular Volume 94.4 fL (81.0-99.0); Mean Platelet Volume 8.4 fL (9.5-13.5); Platelet Count 262 10^3/uL (150-450); Red Blood Count 3.57 10^6/uL (4.20-5.40); Red Cell Distribution Width 12.4 % (11.0-15.0); White Blood Count 24.4 10^3/uL (4.0-11.0)
[2023-05-24] MEDS: METHYLPREDNISOLONE SOD SUCC PF 125 MG/2 ML VIAL IVP (22:06)
[2023-05-24] MEDS: FAMOTIDINE/PF 20 MG/2 ML VIAL IV (22:06)
[2023-05-24] MEDS: DIPHENHYDRAMINE HCL 50 MG/ML (1ML) VIAL IV (22:06)
[2023-05-24 22:12] VITALS: O2SAT 98
[2023-05-24 22:13] LABS: Anion Gap 16.4; Calcium 9.3 mg/dL (8.5-10.1); Carbon Dioxide 21.5 mmol/L (21.0-32.0); Chloride 95 mmol/L (98-107); Estimated GFR (African America >60 (>=60); Estimated GFR (Non-African Ame >60 (>=60); Glucose 136 mg/dL (74-106); Potassium 3.9 mmol/L (3.5-5.1); Sodium 129 mmol/L (136-145)
--- NOTE | 2023-05-24 22:14 | PC.NURSE ---
Pt from [facility], sent in for swelling of bilateral eyes and cheeks. Pt was given mucinex at 0800 for nasal congestion and swelling began around 1200. Pt was then started on 300mg omnicef at 1930 with no improvement. Swelling continued to worsen around eyes. Pt given 650mg tylenol and 40mg ibuprofen at 1930.
[2023-05-24 22:49] LABS: Lymphocytes Absolute Manual 0.24 10^3/uL (1.20-3.80); Toxic Granulation 4+
[2023-05-24 22:50] LABS: Toxic Vacuolation 1+
[2023-05-24 23:17] VITALS: PULSE 95; O2SAT 96
[2023-05-24] MEDS: IBUPROFEN 400 MG TABLET PO (23:56)
[2023-05-25] VITALS (11 sets, daily range): BP systolic 112–155; BP diastolic 72–88; PULSE 90–113; TEMP 36.6–38.3; O2SAT 94–100; BMI 30.1
--- NOTE | 2023-05-25 00:07 | CT_ITS ---
The [address] [address] Patient Name: PJ CARD MRN: [id number] date: 1985 Sex: F Assigned Patient Location: ER Current Patient Location: ER Accession/Order Number: [id number] Exam Date: 05/25/2023 22:15 Report Date: 05/25/2023 00:46 At the request of: RYAN FELIX Procedure: CT facial bones wo con EXAM: CT facial bones wo con HISTORY: facial swelling COMPARISON: None. TECHNIQUE: Multiplanar, multisequence imaging obtained through the facial bones and orbits without contrast. This CT exam was performed using one or more of the following dose reduction techniques: Automated exposure control, adjustment of the mA and/or kV according to patient size, or use of iterative reconstruction technique. Thin section coronal and sagittal images were reconstructed from the axial data set. All images were reviewed and interpreted. FINDINGS: There is acute left infraorbital soft tissue swelling with edema extending post septal along the inferior left orbital wall. Findings concerning for orbital cellulitis involving the inferior orbital fat. The right globe is intact. Some sparing of the superior renal fat. No retrobulbar or involvement. Symmetric appearance of the right and left optic nerves and extraocular muscles. Left orbit and periorbital tissues are normal. Normal osseous structures. There is some nodular mucosal thickening at base of right maxillary sinus. No air-fluid levels. The rest of the sinuses are clear. Mastoid air cells are clear. Bilateral temporomandibular joints are normal. Upper cervical vertebrae are unremarkable. CT/CT facial bones wo con IMPRESSION: 1. Findings suggest acute right periorbital and infraorbital cellulitis involving mostly infraorbital soft tissues. Critical value was reported to Physician: Ryan Felix by Dr. Amari Cat on 05/25/2023 12:46 AM EDT. Electronically authenticated by: AMARI CAT Date: 05/25/2023 00:46
[2023-05-25] MEDS: CLINDAMYCIN PHOSPHATE/D5W 900 MG/50 ML PIGGYBACK 100 MG IV (00:58)
[2023-05-25] MEDS: VANCOMYCIN HCL 1,000 MG in 0.9 % SODIUM CHLORIDE 250 ML 250 MG IV (01:44)
--- OUTSIDE RECORDS SUMMARY | 2023-05-25 01:46 | XMS_ITS | CCD ---
Author Organization [facility] Care Team Providers Care Dowel Inspector Name Role Phone SYSTEM, PROVIDER NOT IN [...] Care Unavailable MUNROE, JOHN Primary Care Physician SHANEKA, JOHN Attending Unavailable MUNROE, JOHN Admitting Unavailable MUNROE, JOHN Attending Unavailable MUNROE, JOHN Admitting Unavailable DOLKAMINI CRENSHAW Attending Unavailable Allergies Allergy Classification Reported Allergen(s) Allergy Type Date of Onset Reaction(s) Facility (3 sources) Amoxicillin; Translations: [AMOXICILLIN] Drug Allergy 3 [facility] (4 sources) ARIPiprazole; Translations: [ABILIFY] Drug Allergy 3 [facility] Work Phone: (3 sources) Dextromethorphan ; Translations: [DEXTROMETHORPHA N HBR] Drug Allergy 3 [facility] (3 sources) metyroSINE; Translations: [METYROSINE] Drug Allergy 3 [facility] (3 sources) Molindone; Translations: [MOLINDONE] Drug [facility] [address] [facility] (3 sources) Nalbuphine; Translations: [NALBUPHINE] Drug Allergy [address] [facility] (3 sources) Valproate; Translations: [VALPROIC ACID] Drug Allergy [address] [facility] (3 sources) Food; Translations: [FOOD] Propensity to adverse reactions to drug [address] [facility] (3 sources) Sympathomimetics ; Translations: [SYMPATHOMIMETIC S] Propensity to adverse reactions to drug [address] [facility] (1 source) Amoxicillin Drug Allergy [facility] (1 source) metyroSINE Drug Allergy [facility] (1 source) Molindone Drug Allergy [facility] (1 source) Nalbuphine Drug Allergy [facility] (1 source) Valproate Drug Allergy [facility] (1 source) [facility] [address] [place] [address] Care Drug allergy (disorder) [facility] Medications Current Medications Medication Drug [...] Comment on above: Performed By: #### 2 [id number], [id number] #### [facility] [address] [place] [address] Physician Orderon 04-13-2023 Physician Order [id number] 0#1.00TIFF Normal [facility] SodiumOrdered By: SYSTEM SYS TEM on 04-13-2023 Sodium [Moles/Vol] 134 mmol/L Low 135-145 Remiso l Chem Comment on above: Performed By: #### 2 [id number], [id number] #### [facility] [address] [place] [address] CHEMISTRYOrdered By: SYSTEM SYSTEM on 02-23-2023 Carbamaz Lvl 8.7 microgram/mL Normal 4.0 - 12.0 mcg/mL Remisol Chem Sodium [Moles/Vol] 123 mmol/L Low 135 - 145 mmol/L Remisol Chem Carbamazepineon 02-23-2023 Carbamaz Lvl 8.7 microgram/mL Normal 4.0-12.0 [facility] Comment on above: Performed By: #### 2 [id number], [id number] #### [facility] [address] [place] [address] Physician Orderon 02-23-2023 Physician Order [id number] 6#[id number] Normal [facility] Sodiumon 02-23-2023 Sodium [Moles/Vol] 123 mmol/L Low 135-145 [facility] Comment on above: Performed By: #### 2 [id number], [id number] #### [facility] [address] [place] [address] Progress Noteson 06-10-2022 Packaging Engineer Authentication Interface Message Text ----- May at 3:52:48 PM ----- ----- Provider: [id number] Mario -- Clinic: [place] ----- OR EVALUATION Patient presents for evaluation [...] treatment in the OR was sent out [phone] NOTE: Note: Pt seen in the OR about 2 years ago. Next Visit: OR ----- Signed on May at 4:11:20 PM ----- ----- Provider: [id number] Ed Obrien DDS -- Clinic: [place] ----- Normal [facility] [employer] [facility] UA (CLEAN/CATCH) FACILITIES ENGINEER/MICRO I F IND.on 05-17-2022 Bilirubin Ql (U) Negative Normal NEGATIVE [facility] Comment on above: Performed By: #### U ACSIND #### [facility] [address] [place] [address] Dr. Pio Mack Clarity (U) CLEAR Normal CLEAR [facility] Comment on above: Performed By: #### U ACSIND #### [facility] [address] [address] [address] Pio Mack Color (U) LT. YELLOW Normal YELLOW [facility] Comment on above: Performed By: #### U ACSIND #### [facility] [address] [address] [address] Pio Mack Glucose Ql (U) Negative Normal NEGATIVE [facility] Comment on above: Performed By: #### U ACSIND #### [facility] [address] [place] [address] Dr. Pio Mack Hemoglobin Ql (U) Negative Normal NEGATIVE [facility] Comment on above: Performed By: #### U ACSIND #### [facility] [address] [address] [address] Pio Mack Ketones Ql (U) Negative Normal NEGATIVE [facility] Comment on above: Performed By: #### U ACSIND #### [facility] [address] [address] [address] Pio Mack LEUKOCYTES Negative Normal NEGATIVE [facility] Comment on above: Performed By: #### U ACSIND #### [facility] [address] [address] [address] Pio Mack Nitrite Ql (U) Negative Normal NEGATIVE [facility] Comment on above: Performed By: #### U ACSIND #### [facility] [address] [address] [address] Pio Mack pH (U) 7.5 [pH] Normal 5-9 [facility] Comment on above: Performed By: #### U ACSIND #### [facility] [address] [place] [address] Dr. Pio Mack SPEC GRAVITY 1.010 Normal 1.005-<=1.02 5 [facility] Comment on above: Performed By: #### U ACSIND #### [facility] [address] [address] [address] Pio Mack UA PROTEIN Negative Normal NEGATIVE/ TRACE [facility] Comment on above: Performed By: #### U ACSIND #### [facility] [address] [address] [address] Pio Mack UR MICRO IND NOT INDICATED Normal [facility] Comment on above: Performed By: #### U ACSIND #### [facility] [address] [address] [address] Pio Mack Urobilinogen Qn (U) 0.2 {Polina'U}/dL Normal 0.2 - 1. 0 [facility] Comment on above: Performed By: #### U ACSIND #### [facility] [address] [place] [address] Dr. Pio Mack PAP ACOG PANEL 2: 30 to 65on 05-06-2022 . . Normal [facility] Comment on above: Result Comment: Perf ormed at: WB Performed By: #### 4 [id number] #### [facility] [address] [place] [address] Dr. Pio Mack Age Gdln ACOG Testing 30-65 Normal [facility] Comment on above: Performed By: #### 4 [id number] #### [facility] [address] [place] [address] Dr. Pio Mack DIAGNOSIS: Comment Normal [facility] Comment on above: Result Comment: NEGA TIVE FOR INTRAEPITHELIAL LESION OR MALIGNANCY. Performed at: WB Performed By: #### 4 [id number] #### [facility] [address] [place] [address] Dr. Pio Mack HPV Aptima Negative Normal Negative [facility] Comment on above: Result Comment: This nucleic acid amplification test detects fourteen high-risk HPV types (16,18,31,33,35,39,45,51,52,56,58,59,66,68) without differentiation. Performed at: =G Performed By: #### 4 [id number] #### [facility] [address] [address] [address] Pio Mack HPV Genotype Reflex Comment Normal [facility] Comment on above: Result Comment: Crit eria not met, HPV Genotype not performed. Performed at: WB Performed By: #### 4 [id number] #### [facility] [address] [place] [address] Dr. Pio Mack Methodology: Comment Normal [facility] Comment on above: Result Comment: This liquid based ThinPrep(R) pap test was screened with the use of an image guided system. Performed at: WB Performed By: #### 4 [id number] #### [facility] [address] [place] [address] Dr. Pio Mack Note: Comment Normal [facility] Comment on above: Result Comment: The Pap smear is a screening test designed to aid in the detection of premalignant and malignant conditions of the uterine cervix. It is not a diagnostic procedure and should not be used as the sole means of detecting cervical cancer. Both false-positive and false-negative reports do occur. . Performed at: WB Performed By: #### 4 [id number] #### [facility] [address] [place] [address] Dr. Pio Mack Performed by: Comment Normal [facility] Comment on above: Result Comment: Ayesha Poe, Screening Specialist (ASCP) Performed at: WB Performed By: #### 4 [id number] #### [facility] [address] [place] [address] Dr. Pio Mack Specimen adequacy: Comment Normal [facility] Comment on above: Result Comment: Sati sfactory for evaluation. Endocervical and/or squamous metaplastic cells (endocervical component) are present. Performed at: WB Performed By: #### 4 [id number] #### [facility] [address] [place] [address] Dr. Pio Mack Encounters Encounter Date Encounter Type Care Provider Facility Start: 05-04-2023 End: 05-04-2023 ambulatory KAMINI RAMIREZ Not Available Start: 04-13-2023 End: 04-14-2023 ambulatory [place] MUNROE [place] [place]: 04-13-2023 End: 04-13-2023 Lab Drop off JOHN MUNROE [facility] Start: 02-23-2023 End: 02-23-2023 Lab Drop off JOHN MUNROE [facility] Start: 02-23-2023 End: 02-24-2023 ambulatory [place] MUNROE [place] Start: 07-21-[address] JOHN MUNROE Fac ility:[facility] Start: 06-10-2022 End: 06-14-2022 ambulatory UNKNOWN PROVIDER Facility:[facility] Start: 06-10-2022 End: 06-14-2022 Patient encounter procedure Scarlett Avis DDSylvia Work Phone: [facility] Start: 05-17-2022 End: 05-17-[address] JOHN MUNROE Facility:[facility] Start: 04-28-2022 End: 04-28-[address] SONAL CARRERO . Facility: Start: 04-06-2022 Letter encounter [facility] Start: 05-08-2018 End: 05-12-2018 Patient encounter procedure PROVIDER NOT IN SYSTEM [facility] Plan of Treatment Date Care Activity Detail Author Start: 2036 Shingles (RZV) Vaccine (1 of 2) Shingles (RZV) Vaccine (1 of 2) [facility] Start: 11-11-2029 Tetanus vaccination Tetanus (Td or Tdap) Booster [facility] Start: 05-03-2022 End: 05-03-2022 Patient encounter procedure 05/03/2022 Procedure Visit Dentistry Holli Nguyen DDS [address] [place] [address] [facility] Start: 11-21-2021 Influenza vaccination Influenza Vaccine (#1) [facility] Start: 02-11-2021 COVID-19 Vaccine (4 - Booster for Pfizer series) COVID-19 Vaccine (4 - Booster for Pfizer series) [facility] Start: 04-21-2008 Annual wellness visit Annual Wellness Visit (G0438) [facility] Start: 07-05-2007 Screening for malignant neoplasm of cervix Pap Smear [facility] Start: 2004 Hepatitis C screening Hepatitis C Antibody [facility] Start: 2001 HIV screening HIV Test [facility] Start: 1986 Screening for malignant neoplasm of breast Mammography shared decision making (35 through 39 years) [facility] Immunizations Immunization Date Immunization Notes Care Provider Fa cility 12-17-2020 influenza, injectabl e, quadrivalent, preservative free [facility] 12-17-2020 influenza virus vacc ine, unspecified formulation [facility] 03-25-2020 Pfizer (12+ yrs) KAE S-COV-2 (COVID-19) vaccine, mRNA, spike protein, LNP, pres. free, 30 mcg/0.3mL dose (SFZ=796) [facility] 03-04-2020 Pfizer (12+ yrs) KAE S-COV-2 (COVID-19) vaccine, mRNA, spike protein, LNP, pres. free, 30 mcg/0.3mL dose (WAY=838) [facility] 11-28-2019 influenza, injectabl e, quadrivalent, preservative free [facility] 11-12-2019 tetanus toxoid, redu naila diphtheria toxoid, and acellular pertussis vaccine, adsorbed [facility] 11-30-2017 influenza, injectabl e, quadrivalent, preservative free [facility] 12-15-2016 influenza, injectabl e, quadrivalent, contains preservative [facility] 12-12-2014 influenza, injectabl e, quadrivalent, preservative free [facility] 11-10-2010 influenza, seasonal, injectable [facility] 07-07-2006 meningococcal polysa ccharide (groups A, C, Y and W-135) diphtheria toxoid conjugate vaccine (MCV4P) [facility] 11-29-2001 TD(adult) unspecified formulation [facility] 05-04-2001 hepatitis B vaccine, pediatric or pediatric/adolescent dosage [facility] 11-10-2000 hepatitis B vaccine, pediatric or pediatric/adolescent dosage [facility] 10-10-2000 hepatitis B vaccine, pediatric or pediatric/adolescent dosage [facility] 05-30-1998 measles, mumps and r ubella virus vaccine [facility] 12-03-1991 TD(adult) unspecified formulation [facility] 12-03-1991 trivalent poliovirus vaccine, live, oral [facility] 09-06-1988 diphtheria, tetanus toxoids and pertussis vaccine [facility] 09-06-1988 trivalent poliovirus vaccine, live, oral [facility] 01-23-1988 haemophilus influenz ae type b vaccine, conjugate unspecified formulation [facility] 04-30-1987 measles, mumps and r ubella virus vaccine [facility] 1986 diphtheria, tetanus toxoids and pertussis vaccine [facility] 1986 diphtheria, tetanus toxoids and pertussis vaccine [facility] 1986 trivalent poliovirus vaccine, live, oral [facility] 1986 diphtheria, tetanus toxoids and pertussis vaccine [facility] 1986 trivalent poliovirus vaccine, live, oral [facility] Payers Date Payer Category Payer Medicaid [id number] 2007 Medicare MEDICARE MEDICAR E PART A & B [id number] 2007-Present [address] [place] [address] Medicare [id number] 1986 Unknown [id number] 1986 Unknown [id number] 1986 Unknown [id number] 1986 Unknown [id number] 1986 Unknown [id number] 1986 Unknown [id number] 1986 Unknown [id number] 1959 Medicaid [id number] 1958 Medicare [id number] Social History Date Type Detail Facility Start: 06-13-2020 [facility] Work Phone: Start: 06-13-2020 Tobacco use and exposure Smokeless tobacco non-user [facility] Start: 07-15-2020 Alcohol intake Lifetime non-d mark (finding) [facility] Start: 06-13-2020 History SDOH Alcohol Frequency 1 [facility] Start: 1985 Sex Assigned At Not on file [facility] Tobacco smoking status No Smokin g Status Entered [facility] Sex Assigned At Female [facility] History of Present illness Narrative 06-10-2022 Scarlett Albarran DDS - 06/10/2022 1:29 PM EDT Note Date & Type Note Facility 06-10-2022 History of Presen t illness Narrative ----- May at 3:52:48 PM ----- ----- Provider: [id number] Albarran, -- Clinic: [place] ----- OR EVALUATION Patient presents for evaluation [...] treatment in the OR was sent out [phone] NOTE: Note: Pt seen in the OR about 2 years ago. Next Visit: OR ----- Signed on May at 4:11:20 PM ----- ----- Provider: Satinder Obrien DDS -- Clinic: [place] ----- documented in this encounter [facility] Evaluation + Plan note Note Date & Type Note Facility Evaluation + Plan note No data available for this section [facility] Hospital Discharge instructions Note Date & Type Note Facility Hospital Discharge instructions No data available for this section [facility] Progress note Note Date & Type Note Facility Progress note No data available for this section [facility] Summary Purpose Family History No Family History [...] section and content) DATE CREATED AUTHOR 05/12/2018 [facility] DATE CREATED AUTHOR AUTHOR'S ORGANIZ ATION 06/17/2022 [facility] DATE CREATED AUTHOR AUTHOR'S ORGANIZ ATION 07/30/2022 [facility] DATE CREATED AUTHOR AUTHOR'S ORGANIZ ATION 04/21/2023 [facility] DATE CREATED AUTHOR AUTHOR'S ORGANIZ ATION 05/05/2023 [facility] EPIC Patient Care team informatio n (unrecognized section and content) Personnel Name: JOHN MUNROE DO Address: Address: [address] [place] [address] Personnel Name: JOHN MUNROE DO Address: Address: [address] [place] [address] FOR RECORDS PERTAINING TO PATIENTS WHO ARE [...] BE BASED ON THE PRIMARY CLINICAL RECORDS. [facility]. provides no warranty or guarantee of the accuracy or completeness of information in this document.
[2023-05-25 02:07] LABS: PROCALCITONIN 0.17 ng/mL (0.00-0.50)
[2023-05-25] MEDS: KETOROLAC TROMETHAMINE 30 MG/ML VIAL IVP ×2 (05:26→23:33)
[2023-05-25 05:31] LABS: Basophils Percent Auto 0.2 % (0.2-2.0); Eosinophils Percent Auto 0.2 % (0.9-7.0); Hematocrit 31.1 % (36.0-48.0); Hemoglobin 10.5 g/dL (12.0-16.0); Immature Granulocytes Abs Auto 0.25 10^3/uL (0.00-0.03); Immature Granulocytes Pct Auto 1.1 % (0.0-0.5); Lymphocytes Absolute Auto 0.7 10^3/uL (1.2-3.8); Lymphocytes Percent Auto 2.8 % (20.5-60.0); Mean Corpuscular HGB Conc 33.8 g/dL (29.9-35.2); Mean Corpuscular Hemoglobin 31.5 pg (26.7-34.0); Mean Corpuscular Volume 93.4 fL (81.0-99.0); Mean Platelet Volume 9.1 fL (9.5-13.5); Monocytes Percent Auto 4.2 % (1.7-12.0); Neutrophils Absolute Auto 21.4 10^3/uL (1.4-6.5); Neutrophils Percent Auto 91.5 % (43.0-75.0); Platelet Count 284 10^3/uL (150-450); Red Blood Count 3.33 10^6/uL (4.20-5.40); Red Cell Distribution Width 12.4 % (11.0-15.0); White Blood Count 23.3 10^3/uL (4.0-11.0)
[2023-05-25 05:55] LABS: Alanine Aminotransferase 20 U/L (14-59); Albumin Globulin Ratio 0.8; Alkaline Phosphatase 52 U/L (46-116); Anion Gap 14.5; Aspartate Amino Transferase 17 U/L (15-37); BUN Creatinine Ratio 12.5; Bilirubin Total 0.3 mg/dL (0.2-1.0); Calcium 8.9 mg/dL (8.5-10.1); Carbon Dioxide 22.2 mmol/L (21.0-32.0); Chloride 96 mmol/L (98-107); Estimated GFR (African America >60 (>=60); Estimated GFR (Non-African Ame >60 (>=60); Globulin 3.9 g/dL; Glucose 129 mg/dL (74-106); Potassium 3.7 mmol/L (3.5-5.1); Sodium 129 mmol/L (136-145); Total Protein 6.9 g/dL (6.4-8.2)
--- NOTE | 2023-05-25 06:13 | PC.NURSE ---
3 Small hard round pieces of stool noted in bedside commode. Care provided.
--- NOTE | 2023-05-25 06:15 | PC.NURSE ---
Patient up to c and voided 4 large pieces of bowel movement. Brown in color. Hard in texture.
[2023-05-25] MEDS: METHYLPREDNISOLONE SOD SUCC PF 125 MG/2 ML VIAL IVP ×3 (06:40→18:16)
[2023-05-25] MEDS: DIPHENHYDRAMINE HCL 50 MG/ML (1ML) VIAL 25 MG IV (06:40)
[2023-05-25 08:20] LABS: Lactate/Lactic Acid 2.9 mmol/L (0.4-2.0)
[2023-05-25 09:02] LABS: Lactate/Lactic Acid 2.6 mmol/L (0.4-2.0)
[2023-05-25] MEDS: OLANZapine 5 MG TABLET 30 MG PO (09:09)
[2023-05-25] MEDS: LAMOTRIGINE 100 MG TABLET 200 MG PO (09:10)
[2023-05-25] MEDS: CETIRIZINE HCL 10 MG TABLET PO (09:11)
[2023-05-25] MEDS: DOCUSATE SODIUM 100 MG CAPSULE PO ×2 (09:11→22:10)
[2023-05-25] MEDS: CALCIUM CARBONATE 600 MG/VITAMIN D3 400 IU TABLET 1 TAB PO ×2 (09:11→22:12)
[2023-05-25] MEDS: MONTELUKAST SODIUM 10 MG TABLET PO (09:11)
[2023-05-25] MEDS: OMEPRAZOLE 20 MG CAPSULE.DR PO (09:11)
[2023-05-25] MEDS: DICYCLOMINE HCL 10 MG CAPSULE 20 MG PO ×2 (09:11→22:12)
[2023-05-25] MEDS: CLINDAMYCIN PHOSPHATE/D5W 600 MG/50 ML PIGGYBACK 100 MG IV (09:12)
--- NOTE | 2023-05-25 09:42 | CM.NOTE ---
Rounds made with Dr. Moreno, discussed plan of care with pt and need for IV antibiotics.
--- NOTE | 2023-05-25 10:03 | P.HP_ITS ---
HPI H&P: HPI History of Present Illness Chief complaint: Allergic Reaction Narrative: Patient presented to the emergency room with increasing swelling around her right eye. CT scan is consistent with periorbital cellulitis. Patient did not have any visual deficits in terms of range of motion. She admitted for IV antibiotics. When I saw patient up on the medical surgical floor, she seemed comfortable. Not having significant pain. She was a little bit agitated she has MRDD Opioid HPI Opioid Management Most Recent Opioid Data: Last Pain Scale 2 10/03/22 18:41 Last Pain Assessment 05/25/23 18:00 Last MAR Pain Assessment 05/25/23 05:26 Last ORT Total Score 1 05/25/23 01:43 Last ORT Risk Category Low Risk 05/25/23 01:43 PFSH PFSH Medical History (Updated 05/25/23 @ 01:46 by Rajendra Parks) Cyst of pineal gland ?E34.8 - Other specified endocrine disorders (ICD-10) Mood disorder ?F39 - Unspecified mood [affective] disorder (ICD-10) Bursitis of right patella ?M70.51 - Other bursitis of knee, right knee (ICD-10) Astigmatism ?H52.209 - Unspecified astigmatism, unspecified eye (ICD-10) Essential familial hypercholesterolemia ?E78.01 - Familial hypercholesterolemia (ICD-10) Hormone imbalance ?E34.9 - Endocrine disorder, unspecified (ICD-10) GERD (gastroesophageal reflux disease) ?K21.9 - Gastro-esophageal reflux disease without esophagitis (ICD-10) Constipation ?K59.00 - Constipation, unspecified (ICD-10) Seasonal allergies ?J30.2 - Other seasonal allergic rhinitis (ICD-10) Hypertension ?I10 - Essential (primary) hypertension (ICD-10) Seizure ?R56.9 - Unspecified convulsions (ICD-10) Microadenoma ?D36.9 - Benign neoplasm, unspecified site (ICD-10) Osteopenia ?M85.80 - Other specified disorders of bone density and structure, unspecified site (ICD-10) Hyperopia ?H52.00 - Hypermetropia, unspecified eye (ICD-10) Bipolar 1 disorder ?F31.9 - Bipolar disorder, unspecified (ICD-10) Bipol I sing man rem NOS ?F30.3 - Manic episode in partial remission (ICD-10) PTSD (post-traumatic stress disorder) ?F43.10 - Post-traumatic stress disorder, unspecified (ICD-10) Dissociative disorder ?F44.9 - Dissociative and conversion disorder, unspecified (ICD-10) Impulse control disorder ?F63.9 - Impulse disorder, unspecified (ICD-10) Moderate intellectual disability ?F71 - Moderate intellectual disabilities (ICD-10) ADHD (attention deficit hyperactivity disorder) ?F90.9 - Attention-deficit hyperactivity disorder, unspecified type (ICD-10) Surgical History (Updated 05/24/23 @ 22:22 by Sara Rodriguez) History of cholecystectomy ?Z90.49 - Acquired absence of other specified parts of digestive tract (ICD- 10) Meds Home Medications and Allergies Home Medications ?Medication ?Instructions ?Recorded ?Confirmed ?Type atomoxetine 40 mg capsule 40 mg PO QPM 05/24/23 05/25/23 History atomoxetine 60 mg capsule 60 mg PO QAM 05/24/23 05/25/23 History calcium carbonate 600 mg-vitamin 1 tab PO BID 05/24/23 05/25/23 History D3 20 mcg (800 unit) tablet carbamazepine 200 mg 200 mg PO Q12H 05/24/23 05/25/23 History tablet,extended release,12 hr carbamazepine 400 mg 400 mg PO DAILY 05/24/23 05/25/23 History tablet,extended release,12 hr cefdinir 300 mg capsule 300 mg PO Q12H 05/24/23 05/25/23 History clonidine HCl 0.2 mg tablet 0.2 mg PO Q8H 05/24/23 05/25/23 History dicyclomine 20 mg tablet 20 mg PO BID 05/24/23 05/25/23 History docusate sodium 100 mg capsule 100 mg PO BID 05/24/23 05/25/23 History fenofibrate micronized 134 mg 134 mg PO BEDTIME 05/24/23 05/25/23 History capsule fluorouracil 5 % topical cream 1 applic topical BID 05/24/23 05/25/23 History guanfacine 2 mg tablet 2 mg PO TID 05/24/23 05/25/23 History lamotrigine 150 mg tablet 300 mg PO BEDTIME 05/24/23 05/25/23 History lamotrigine 200 mg tablet 200 mg PO DAILY 05/24/23 05/25/23 History levonorgestrel-ethinyl estradiol 1 tab PO DAILY 05/24/23 05/25/23 History 0.1 mg-20 mcg tablet (Aviane) loratadine 10 mg tablet 10 mg PO Q24H 05/24/23 05/24/23 History metoprolol tartrate 100 mg tablet 100 mg PO QID 05/24/23 05/25/23 History montelukast 10 mg tablet 10 mg PO DAILY 05/24/23 05/25/23 History olanzapine 20 mg tablet 30 mg PO DAILY 05/24/23 05/25/23 History omeprazole 20 mg capsule,delayed 20 mg PO DAILY 05/24/23 05/25/23 History release paliperidone 6 mg tablet,extended 6 mg PO BID 05/24/23 05/25/23 History release 24 hr acetaminophen 325 mg tablet 650 mg PO BID PRN fever or pain 05/25/23 05/25/23 History calcium polycarbophil 625 mg 1,250 mg PO DAILY 05/25/23 05/25/23 History tablet (Fiber-Lax) levonorgestrel-ethinyl estradiol 1 tab PO DAILY 05/25/23 05/25/23 History 0.1 mg-20 mcg tablet (Aviane) Allergies Allergy/AdvReac Type Severity Reaction Status Date / Time acetaminophen [From Tylenol] Allergy Intermediate Swelling Verified 05/24/23 23:35 of the Eye guaifenesin [From Mucinex] Allergy Intermediate Swelling Verified 05/24/23 21:48 of the Eye amoxicillin Allergy Unknown Verified 05/24/23 21:48 aripiprazole [From Abilify] Allergy Unknown Verified 05/24/23 21:48 metyrosine Allergy Unknown Verified 05/24/23 21:48 molindone [From Moban] Allergy Unknown Verified 05/24/23 21:48 nalbuphine [From Nubain] Allergy Unknown Verified 05/24/23 21:48 divalproex sodium AdvReac Nausea Verified 05/24/23 21:48 [From Depakote] sympathomimetics Allergy Unknown Uncoded 05/24/23 21:48 vicks 44d Allergy Unknown Uncoded 05/24/23 21:48 Exam Constitutional Vital Signs, click to edit/add: Last Vital Signs Temp 97.8 F 05/25/23 08:24 Pulse 105 H 05/25/23 08:24 Resp 16 05/25/23 08:24 BP 128/82 05/25/23 08:24 Pulse Ox 97 05/25/23 08:24 O2 Del Method Room Air 05/25/23 08:24 Documenting provider has reviewed patient's vital signs: yes Common normals: no apparent distress [facility] Common normals: normocephalic and head/scalp atraumatic Other: Swelling around right eye, mild erythema. Extraocular motions appear to be intact although difficult to assess Neck & C-Spine Common normals: full ROM; lymphadenopathy noted (Right-sided lymphadenopathy) Lymph Lymphatic: no lymphadenopathy noted Respiratory Common normals: normal respiratory effort and no retractions Cardio Common normals: regular rate and regular rhythm Results Labs Labs: Short CBC 05/24/23 05/25/23 Range/Units 21:55 04:32 WBC 24.4 H 23.3 H (4.0-11.0) 10^3/uL Hgb 11.2 L 10.5 L (12.0-16.0) g/dL Hct 33.7 L 31.1 L (36.0-48.0) % Plt Count 262 284 (150-450) 10^3/uL BMP 05/24/23 05/25/23 21:55 04:32 Sodium 129 L 129 L Potassium 3.9 3.7 Chloride 95 L 96 L Carbon Dioxide 21.5 22.2 BUN 9.0 7.0 Creatinine 0.75 0.56 Glucose 136 H 129 H Calcium 9.3 8.9 Liver Function 05/25/23 Range/Units 04:32 Total Bilirubin 0.3 (0.2-1.0) mg/dL AST 17 (15-37) U/L ALT 20 (14-59) U/L Alkaline Phosphatase 52 (46-116) U/L Albumin 3.0 L (3.4-5.0) g/dL Assessment and Plan Assessment and Plan (1) Cellulitis of right orbit: Plan Sinus tachycardia, leukocytosis with bandemia,, hyponatremia, positive lactate secondary to right periorbital cellulitis with mild dehydration, blood cultures are pending this is resulted in severe sepsis. Did not give fluid resuscitation significantly secondary to patient has a history of fluid retention. Blood cultures have been obtained. Antibiotics were adjusted. Try patient on steroids and Benadryl to try to reduce eye swelling. Iron deficiency anemia-monitor daily Juaakywswshg-nyigeevwd-zefbm resuscitation as outlined above may improve Hyperglycemia on admission this is likely secondary to the infection. Will monitor daily. Patient was treated as an outpatient for this over the last 2 days. Antibiotics failed with failure of outpatient treatment with oral antibiotics and progression of symptoms to the point of periorbital cellulitis with severe sepsis, medically necessary treatment with inpatient status, likely 3 to 4-day hospital stay.
[2023-05-25] MEDS: GUANFACINE 2 MG 2 EACH PO ×3 (10:26→22:14)
[2023-05-25] MEDS: CARBAMAZEPINE 200 MG 200 EACH PO ×2 (10:27→22:10)
[2023-05-25] MEDS: ATOMOXETINE 60 MG 60 EACH PO (10:27)
[2023-05-25] MEDS: 0.9 % SODIUM CHLORIDE 1,000 ML 1000 ML IV (10:28)
[2023-05-25] MEDS: LEVONORGESTREL ETHINYL ESTRAD PO (10:29)
--- NOTE | 2023-05-25 10:29 | SWNOTE1 ---
Pt is from [place].
[2023-05-25] MEDS: PALIPERIDONE 6 MG 6 EACH PO ×2 (10:30→22:14)
[2023-05-25] MEDS: CALCIUM POLYCARBOPHIL 625 MG TABLET 1250 MG PO (10:31)
[2023-05-25 10:54] LABS: C Reactive Protein 20.03 mg/dL (<=0.50)
[2023-05-25 11:01] LABS: Erythrocyte Sedimentation Rate 55 mm/hr (<=20)
[2023-05-25 11:17] LABS: Lactate/Lactic Acid 3.3 mmol/L (0.4-2.0)
[2023-05-25] MEDS: LACTATED RINGER'S SOLUTION 1,000 ML 100 ML IV ×2 (11:40→22:19)
[2023-05-25] MEDS: LEVOFLOXACIN IN DEXTROSE 5 % 750 MG/150 ML IV.SOLN 100 MG IV (11:59)
[2023-05-25] MEDS: METOPROLOL TARTRATE 100 MG TABLET PO ×3 (12:01→22:08)
[2023-05-25 14:22] LABS: Lactate/Lactic Acid 3.3 mmol/L (0.4-2.0)
--- NOTE | 2023-05-25 15:05 | SWNOTE1 ---
SHAHID spoke with pt's guardian, Jessica, via phone. She expressed things are going well at [place] for pt. She stated pt does have behaviors, but this is typical. She does not have any concerns at this time of pt returning to [place]. Important Message from Medicare reviewed and discussed with patient's guardian. Pt's guardian verbalized understanding and signed the form. Original was placed in pt's room and copy was placed on chart.
[2023-05-25] MEDS: CLINDAMYCIN PHOS 300 MG/50 ML PIGGYBACK 100 MG IV ×2 (15:20→22:19)
[2023-05-25] MEDS: CLONIDINE HCL 0.2 MG TABLET 0.200000000000000011 MG PO ×2 (15:40→22:08)
[2023-05-25] MEDS: DIPHENHYDRAMINE HCL 50 MG/ML (1ML) VIAL IV (15:43)
[2023-05-25] MEDS: ATOMOXETINE 40 MG 40 EACH PO (22:08)
[2023-05-25] MEDS: LAMOTRIGINE 100 MG TABLET 300 MG PO (22:10)
[2023-05-25] MEDS: FENOFIBRATE 54 MG TABLET 134 MG PO (22:14)
[2023-05-26] VITALS (7 sets, daily range): BP systolic 113–155; BP diastolic 68–93; PULSE 81–92; TEMP 36.4–37; O2SAT 95–99
[2023-05-26] MEDS: METHYLPREDNISOLONE SOD SUCC PF 125 MG/2 ML VIAL IVP ×4 (03:26→21:52)
[2023-05-26] MEDS: CLINDAMYCIN PHOS 300 MG/50 ML PIGGYBACK 100 MG IV ×2 (03:27→08:47)
[2023-05-26 05:56] LABS: Alanine Aminotransferase 25 U/L (14-59); Albumin Globulin Ratio 0.7; Albumin Level 2.5 g/dL (3.4-5.0); Alkaline Phosphatase 63 U/L (46-116); Anion Gap 13.1; Aspartate Amino Transferase 20 U/L (15-37); BUN Creatinine Ratio 12.5; Bilirubin Total 0.2 mg/dL (0.2-1.0); C Reactive Protein 19.69 mg/dL (<=0.50); Calcium 8.2 mg/dL (8.5-10.1); Carbon Dioxide 22.2 mmol/L (21.0-32.0); Chloride 98 mmol/L (98-107); Estimated GFR (African America >60 (>=60); Estimated GFR (Non-African Ame >60 (>=60); Globulin 3.7 g/dL; Glucose 126 mg/dL (74-106); Potassium 4.3 mmol/L (3.5-5.1); Sodium 129 mmol/L (136-145); Total Protein 6.2 g/dL (6.4-8.2)
[2023-05-26] MEDS: METOPROLOL TARTRATE 100 MG TABLET PO ×4 (06:11→21:26)
[2023-05-26 06:15] LABS: Basophils Percent Auto 0.2 % (0.2-2.0); Eosinophils Percent Auto 0.1 % (0.9-7.0); Hematocrit 29.3 % (36.0-48.0); Hemoglobin 9.8 g/dL (12.0-16.0); Lymphocytes Absolute Auto 0.8 10^3/uL (1.2-3.8); Lymphocytes Percent Auto 4.2 % (20.5-60.0); Mean Corpuscular HGB Conc 33.4 g/dL (29.9-35.2); Mean Corpuscular Hemoglobin 31.6 pg (26.7-34.0); Mean Corpuscular Volume 94.5 fL (81.0-99.0); Mean Platelet Volume 8.8 fL (9.5-13.5); Monocytes Absolute Auto 1.2 10^3/uL (0.3-0.8); Monocytes Percent Auto 6.2 % (1.7-12.0); Neutrophils Percent Auto 88.3 % (43.0-75.0); Platelet Count 259 10^3/uL (150-450); Red Cell Distribution Width 12.5 % (11.0-15.0); White Blood Count 19.2 10^3/uL (4.0-11.0)
[2023-05-26 06:19] LABS: Erythrocyte Sedimentation Rate 90 mm/hr (<=20)
[2023-05-26] MEDS: 0.9 % SODIUM CHLORIDE 1,000 ML 75 ML IV ×2 (08:47→23:08)
[2023-05-26] MEDS: DOCUSATE SODIUM 100 MG CAPSULE PO ×2 (08:49→21:18)
[2023-05-26] MEDS: PALIPERIDONE 6 MG 6 EACH PO ×2 (08:50→21:23)
[2023-05-26] MEDS: LAMOTRIGINE 100 MG TABLET 200 MG PO (08:50)
[2023-05-26] MEDS: LEVONORGESTREL ETHINYL ESTRAD PO (08:51)
[2023-05-26] MEDS: ATOMOXETINE 60 MG 60 EACH PO (08:51)
[2023-05-26] MEDS: CALCIUM CARBONATE 600 MG/VITAMIN D3 400 IU TABLET 1 TAB PO ×2 (08:52→21:17)
[2023-05-26] MEDS: MONTELUKAST SODIUM 10 MG TABLET PO (08:52)
[2023-05-26] MEDS: DICYCLOMINE HCL 10 MG CAPSULE 20 MG PO ×2 (08:52→21:17)
[2023-05-26] MEDS: CALCIUM POLYCARBOPHIL 625 MG TABLET 1250 MG PO (08:52)
[2023-05-26] MEDS: CETIRIZINE HCL 10 MG TABLET PO (08:53)
[2023-05-26] MEDS: CARBAMAZEPINE 200 MG 200 EACH PO ×2 (08:53→21:33)
[2023-05-26] MEDS: OLANZapine 5 MG TABLET 30 MG PO (08:53)
[2023-05-26] MEDS: OMEPRAZOLE 20 MG CAPSULE.DR PO (08:53)
[2023-05-26] MEDS: LACTOSE -REDUCED (ENSURE ORIGINAL 237 ML LIQUID) PO ×2 (08:54→21:18)
--- NOTE | 2023-05-26 09:01 | CT_ITS ---
The [address] [address] Patient Name: PJ CARD MRN: [id number] date: 1985 Sex: F Assigned Patient Location: [place] Current Patient Location: [place] Accession/Order Number: [id number] Exam Date: 05/26/2023 09:35 Report Date: 05/26/2023 10:10 At the request of: RAQUEL BLAKELY Procedure: CT facial bones wo con CT facial bones wo con, 05/26/2023 9:35 AM EDT INDICATION: periorbital cellulites progressed COMPARISON: Prior CT of the facial bones dated 06/11/2023 TECHNIQUE: Axial images of 1 mm were obtained from the base of the skull to vertex without contrast with coronal and sagittal reconstruction. Dose reduction techniques were achieved by using automated exposure control and/or adjustment of mA and/or kV according to patient size and/or use of iterative reconstruction technique. FINDINGS: The sensitivity of study has been decreased due to streak artifacts from dental fillings. There is interval increase in the facial swelling from bilateral infraorbital to supraorbital regions with no fluid collection. No post septal extension is noted. There is a retention cyst within the right maxillary sinus. Mild mucosal thickening within the maxillary sinuses is noted. The remainder of paranasal sinuses are clear. There is no pneumatization of the supraorbital anterior ethmoidal air cells. The frontal and sphenoethmoidal recesses are patent. No abnormality of bilateral maxillary ostium and ethmoidal infundibulum is noted. The lamina papyracea is unremarkable bilaterally. Right Celia bullosa is noted. There is a septal deviation to left side. There is a left nasal spur. The carotid arteries have normal intracranial pathway. The fovea ethmoidalis is symmetric. No pneumatization of anterior clinoid process is noted. The optic nerves show bone coverage. There is no suspicious osteolytic or osteoblastic lesion. The visualized portions of orbits and mastoid air cells are unremarkable. No suprahyoid lymphadenopathy by size criteria is noted. CT/CT facial bones wo con IMPRESSION: Interval progression of the facial swelling with no postseptal extension and no fluid collection. Electronically authenticated by: KAREN HARO Date: 05/26/2023 10:10
--- NOTE | 2023-05-26 09:54 | P.PN_ITS ---
Progress Note: Subjective Subjective Interval history: No complaints from the patient. Denies pain. Did spike a fever last night over 100.5 Exam Constitutional Vital Signs, click to edit/add: Last Vital Signs Temp 98.5 F 05/26/23 07:54 Pulse 87 05/26/23 07:54 Resp 20 05/26/23 07:54 BP 147/93 H 05/26/23 07:54 Pulse Ox 98 05/26/23 07:54 O2 Del Method Room Air 05/26/23 07:54 [facility] Common normals: normocephalic (Worsening swelling and erythema around the right eye, now around left eye ) and head/scalp atraumatic Respiratory Common normals: normal respiratory effort and no retractions Cardio Common normals: regular rate Progress Note: Objective Labs Labs: Short CBC 05/26/23 Range/Units 06:10 WBC 19.2 H (4.0-11.0) 10^3/uL Hgb 9.8 L (12.0-16.0) g/dL Hct 29.3 L (36.0-48.0) % Plt Count 259 (150-450) 10^3/uL BMP 05/26/23 04:55 Sodium 129 L Potassium 4.3 Chloride 98 Carbon Dioxide 22.2 BUN 6.0 L Creatinine 0.48 L Glucose 126 H Calcium 8.2 L Liver Function 05/26/23 Range/Units 04:55 Total Bilirubin 0.2 (0.2-1.0) mg/dL AST 20 (15-37) U/L ALT 25 (14-59) U/L Alkaline Phosphatase 63 (46-116) U/L Albumin 2.5 L (3.4-5.0) g/dL Progress Note: A&P Assessment and Plan (1) Cellulitis of right orbit: Plan Admission Dx: Sinus tachycardia, leukocytosis with bandemia, hyponatremia, positive lactate secondary to right periorbital cellulitis with mild dehydration, blood cultures are pending this is resulted in severe sepsis. Did not give fluid resuscitation significantly secondary to patient has a history of fluid retention. So far blood cultures are still pending, this definitely appears worse today. Will adjust antibiotics to triple agent. Repeat CT scan shows no periorbital abscess. But cellulitis has progressed. If not improved with change in antibiotics may need referral tertiary care facility white blood cell count overall is improved Iron deficiency anemia-monitor daily Hubavixkvbsu-cxvjvflki-hmcllsue to monitor Hyperglycemia on admission this is likely secondary to the infection. Will monitor daily. Admission statement : patient was treated as an outpatient for this over the last 2 days. Antibiotics failed with failure of outpatient treatment with oral antibiotics and progression of symptoms to the point of periorbital cellulitis with severe sepsis, medically necessary treatment with inpatient status, likely 3 to 4-day hospital stay. ?
[2023-05-26] MEDS: DIPHENHYDRAMINE HCL 50 MG/ML (1ML) VIAL 25 MG IV ×2 (11:57→17:28)
[2023-05-26] MEDS: VANCOMYCIN HCL 1,250 MG in 0.9 % SODIUM CHLORIDE 250 ML 166.667000000000002 MG IV ×2 (11:57→21:15)
[2023-05-26] MEDS: NEOMYCIN/POLYMYXIN B/DEXAMETHA OP SUSP 100 DROP/5 ML BOTTLE OP ×3 (11:58→21:27)
[2023-05-26 12:28] LABS: HIV Antigen NON-REACTIVE (NONREACTIVE)
[2023-05-26] MEDS: CEFTAZIDIME 2,000 MG in 0.9 % SODIUM CHLORIDE 100 ML 200 MG IV (14:35)
[2023-05-26] MEDS: CLONIDINE HCL 0.2 MG TABLET 0.200000000000000011 MG PO ×2 (14:38→21:23)
[2023-05-26] MEDS: GUANFACINE 2 MG 2 EACH PO ×2 (14:38→21:24)
[2023-05-26] MEDS: METRONIDAZOLE/SODIUM CHLORIDE 500 MG/100 ML PREMIX 100 MG IV ×2 (16:04→23:08)
[2023-05-26] MEDS: FENOFIBRATE 54 MG TABLET 134 MG PO (21:24)
[2023-05-26] MEDS: LAMOTRIGINE 100 MG TABLET 300 MG PO (21:26)
[2023-05-26] MEDS: ATOMOXETINE 40 MG 40 EACH PO (21:34)
[2023-05-27] VITALS (9 sets, daily range): BP systolic 126–158; BP diastolic 74–95; PULSE 70–97; TEMP 36.2–36.7; O2SAT 96–99
[2023-05-27] MEDS: DIPHENHYDRAMINE HCL 50 MG/ML (1ML) VIAL 25 MG IV ×4 (00:11→21:20)
[2023-05-27] MEDS: CEFTAZIDIME 2,000 MG in 0.9 % SODIUM CHLORIDE 100 ML 200 MG IV ×3 (00:12→16:37)
[2023-05-27] MEDS: KETOROLAC TROMETHAMINE 30 MG/ML VIAL IVP (01:15)
[2023-05-27] MEDS: METHYLPREDNISOLONE SOD SUCC PF 125 MG/2 ML VIAL IVP ×4 (03:59→21:23)
[2023-05-27] MEDS: VANCOMYCIN HCL 1,250 MG in 0.9 % SODIUM CHLORIDE 250 ML 166.667000000000002 MG IV (03:59)
[2023-05-27] MEDS: METRONIDAZOLE/SODIUM CHLORIDE 500 MG/100 ML PREMIX 100 MG IV ×3 (05:35→17:36)
[2023-05-27] MEDS: NEOMYCIN/POLYMYXIN B/DEXAMETHA OP SUSP 100 DROP/5 ML BOTTLE OP ×4 (05:38→21:27)
[2023-05-27] MEDS: METOPROLOL TARTRATE 100 MG TABLET PO ×4 (05:39→21:26)
[2023-05-27] MEDS: CLONIDINE HCL 0.2 MG TABLET 0.200000000000000011 MG PO ×3 (05:49→21:25)
[2023-05-27] MEDS: GUANFACINE 2 MG 2 EACH PO ×3 (05:50→21:26)
[2023-05-27 06:07] LABS: Basophils Percent Auto 0.2 % (0.2-2.0); Eosinophils Percent Auto 0.1 % (0.9-7.0); Hematocrit 31.4 % (36.0-48.0); Hemoglobin 9.9 g/dL (12.0-16.0); Immature Granulocytes Pct Auto 1.9 % (0.0-0.5); Lymphocytes Absolute Auto 1.9 10^3/uL (1.2-3.8); Lymphocytes Percent Auto 12.2 % (20.5-60.0); Mean Corpuscular HGB Conc 31.5 g/dL (29.9-35.2); Mean Corpuscular Hemoglobin 30.8 pg (26.7-34.0); Mean Corpuscular Volume 97.8 fL (81.0-99.0); Mean Platelet Volume 9.3 fL (9.5-13.5); Monocytes Absolute Auto 1.9 10^3/uL (0.3-0.8); Monocytes Percent Auto 12.1 % (1.7-12.0); Neutrophils Absolute Auto 11.3 10^3/uL (1.4-6.5); Neutrophils Percent Auto 73.5 % (43.0-75.0); Platelet Count 297 10^3/uL (150-450); Red Blood Count 3.21 10^6/uL (4.20-5.40); Red Cell Distribution Width 12.8 % (11.0-15.0); White Blood Count 15.4 10^3/uL (4.0-11.0)
[2023-05-27 06:09] LABS: HBsAg Screen Negative (Negative); HCV Antibody Non Reactive (Non Reactive)
[2023-05-27 06:32] LABS: Alanine Aminotransferase 23 U/L (14-59); Albumin Globulin Ratio 0.6; Albumin Level 2.5 g/dL (3.4-5.0); Alkaline Phosphatase 66 U/L (46-116); Anion Gap 14.1; Aspartate Amino Transferase 23 U/L (15-37); BUN Creatinine Ratio 18.2; Bilirubin Total 0.2 mg/dL (0.2-1.0); C Reactive Protein 9.57 mg/dL (<=0.50); Calcium 8.9 mg/dL (8.5-10.1); Carbon Dioxide 21.3 mmol/L (21.0-32.0); Chloride 102 mmol/L (98-107); Estimated GFR (African America >60 (>=60); Estimated GFR (Non-African Ame >60 (>=60); Globulin 4.4 g/dL; Glucose 117 mg/dL (74-106); Potassium 4.4 mmol/L (3.5-5.1); Sodium 133 mmol/L (136-145); Total Protein 6.9 g/dL (6.4-8.2)
[2023-05-27 07:07] LABS: Erythrocyte Sedimentation Rate 65 mm/hr (<=20)
[2023-05-27] MEDS: OMEPRAZOLE 20 MG CAPSULE.DR PO (09:03)
[2023-05-27] MEDS: LACTOSE -REDUCED (ENSURE ORIGINAL 237 ML LIQUID) PO ×2 (09:03→21:23)
[2023-05-27] MEDS: CETIRIZINE HCL 10 MG TABLET PO (09:03)
[2023-05-27] MEDS: ATOMOXETINE 60 MG 60 EACH PO (09:04)
[2023-05-27] MEDS: CARBAMAZEPINE 200 MG 200 EACH PO ×2 (09:06→21:22)
[2023-05-27] MEDS: CALCIUM CARBONATE 600 MG/VITAMIN D3 400 IU TABLET 1 TAB PO ×2 (09:06→21:21)
[2023-05-27] MEDS: CALCIUM POLYCARBOPHIL 625 MG TABLET 1250 MG PO (09:06)
[2023-05-27] MEDS: DICYCLOMINE HCL 10 MG CAPSULE 20 MG PO ×2 (09:07→21:22)
[2023-05-27] MEDS: DOCUSATE SODIUM 100 MG CAPSULE PO ×2 (09:07→21:23)
[2023-05-27] MEDS: CARBAMAZEPINE 400 MG 400 EACH PO (09:07)
--- NOTE | 2023-05-27 09:07 | CM.NOTE ---
Rounds made with Dr. Moreno. Migdalia with c/o headache would like Tylenol. Dr. Moreno verbalizes understanding. No discharge today.
[2023-05-27] MEDS: LAMOTRIGINE 100 MG TABLET 200 MG PO (09:08)
[2023-05-27] MEDS: OLANZapine 5 MG TABLET 30 MG PO (09:09)
[2023-05-27] MEDS: LEVONORGESTREL ETHINYL ESTRAD PO (09:09)
[2023-05-27] MEDS: PALIPERIDONE 6 MG 6 EACH PO ×2 (09:10→21:24)
[2023-05-27] MEDS: MONTELUKAST SODIUM 10 MG TABLET PO (09:10)
--- NOTE | 2023-05-27 10:06 | P.PN_ITS ---
Progress Note: Subjective Subjective Interval history: Patient more interactive than yesterday. Asking for a sleeping pill Exam Constitutional Vital Signs, click to edit/add: Last Vital Signs Temp 97.8 F 05/27/23 07:46 Pulse 70 05/27/23 07:46 Resp 16 05/27/23 07:46 BP 134/87 05/27/23 07:46 Pulse Ox 96 05/27/23 07:46 O2 Del Method Room Air 05/27/23 07:46 [facility] Common normals: normocephalic (Swelling around eyes is improved from previous day, erythema as well) and head/scalp atraumatic Respiratory Common normals: normal respiratory effort and no retractions Cardio Common normals: regular rate Progress Note: Objective Labs Labs: Short CBC 05/27/23 Range/Units 05:17 WBC 15.4 H (4.0-11.0) 10^3/uL Hgb 9.9 L (12.0-16.0) g/dL Hct 31.4 L (36.0-48.0) % Plt Count 297 (150-450) 10^3/uL BMP 05/27/23 05:17 Sodium 133 L Potassium 4.4 Chloride 102 Carbon Dioxide 21.3 BUN 6.0 L Creatinine 0.33 L Glucose 117 H Calcium 8.9 Liver Function 05/27/23 Range/Units 05:17 Total Bilirubin 0.2 (0.2-1.0) mg/dL AST 23 (15-37) U/L ALT 23 (14-59) U/L Alkaline Phosphatase 66 (46-116) U/L Albumin 2.5 L (3.4-5.0) g/dL Progress Note: A&P Assessment and Plan (1) Cellulitis of right orbit: Plan Admission Dx: Sinus tachycardia, leukocytosis with bandemia, hyponatremia, positive lactate secondary to right periorbital cellulitis with mild dehydration, blood cultures are pending this is resulted in severe sepsis. Did not give fluid resuscitation significantly secondary to patient has a history of fluid retention. Check on blood cultures later in the day. Definitely improvement from previous day with change in antibiotics. Likely needs 2-3 more days of IV antibiotics. Leukocytosis sedimentation rate and CRP all improved Iron deficiency anemia-monitor daily Hyponatremia-improved Hyperglycemia on admission this is likely secondary to the infection. Will monitor daily. Admission statement : patient was treated as an outpatient for this over the last 2 days. Antibiotics failed with failure of outpatient treatment with oral antibiotics and progression of symptoms to the point of periorbital cellulitis with severe sepsis, medically necessary treatment with inpatient status, likely 3 to 4-day hospital stay. ?
[2023-05-27 11:09] LABS: Rapid Plasma Reagin, Quant Non Reactive titer (NonRea<1:1)
[2023-05-27 11:27] LABS: Vancomycin Trough 8.3 ug/mL (5.0-20.0)
[2023-05-27] MEDS: BENZONATATE 100 MG CAPSULE 200 MG PO (13:39)
[2023-05-27] MEDS: VANCOMYCIN HCL 1,500 MG in 0.9 % SODIUM CHLORIDE 500 ML 250 MG IV ×2 (14:35→22:34)
[2023-05-27] MEDS: ATOMOXETINE 40 MG 40 EACH PO (21:19)
[2023-05-27] MEDS: DOXEPIN HCL 10 MG CAPSULE PO (21:25)
[2023-05-27] MEDS: FENOFIBRATE 54 MG TABLET 134 MG PO (21:25)
[2023-05-27] MEDS: LAMOTRIGINE 100 MG TABLET 300 MG PO (21:26)
[2023-05-28] VITALS: BP 128/77; PULSE 75; TEMP 36.3; O2SAT 95
[2023-05-28] MEDS: METRONIDAZOLE/SODIUM CHLORIDE 500 MG/100 ML PREMIX 100 MG IV ×2 (00:46→07:53)
[2023-05-28] MEDS: KETOROLAC TROMETHAMINE 30 MG/ML VIAL IVP ×2 (00:50→10:21)
[2023-05-28] MEDS: DIPHENHYDRAMINE HCL 50 MG/ML (1ML) VIAL 25 MG IV ×2 (01:51→07:52)
[2023-05-28] MEDS: CEFTAZIDIME 2,000 MG in 0.9 % SODIUM CHLORIDE 100 ML 200 MG IV ×2 (01:51→10:23)
[2023-05-28] MEDS: METHYLPREDNISOLONE SOD SUCC PF 125 MG/2 ML VIAL IVP ×2 (02:29→09:20)
[2023-05-28 04:00] VITALS: BP 151/99; PULSE 86; TEMP 36.3; O2SAT 94
[2023-05-28 05:05] VITALS: O2SAT 95
[2023-05-28 05:15] LABS: Alanine Aminotransferase 27 U/L (14-59); Albumin Globulin Ratio 0.7; Albumin Level 2.5 g/dL (3.4-5.0); Alkaline Phosphatase 56 U/L (46-116); Aspartate Amino Transferase 19 U/L (15-37); BUN Creatinine Ratio 16.7; Bilirubin Total 0.1 mg/dL (0.2-1.0); C Reactive Protein 4.21 mg/dL (<=0.50); Calcium 8.6 mg/dL (8.5-10.1); Carbon Dioxide 24.4 mmol/L (21.0-32.0); Chloride 103 mmol/L (98-107); Estimated GFR (African America >60 (>=60); Estimated GFR (Non-African Ame >60 (>=60); Globulin 3.7 g/dL; Glucose 122 mg/dL (74-106); Potassium 4.4 mmol/L (3.5-5.1); Sodium 136 mmol/L (136-145); Total Protein 6.2 g/dL (6.4-8.2)
[2023-05-28] MEDS: CLONIDINE HCL 0.2 MG TABLET 0.200000000000000011 MG PO (05:15)
[2023-05-28] MEDS: GUANFACINE 2 MG 2 EACH PO (05:16)
[2023-05-28] MEDS: METOPROLOL TARTRATE 100 MG TABLET PO ×2 (05:16→12:23)
[2023-05-28] MEDS: NEOMYCIN/POLYMYXIN B/DEXAMETHA OP SUSP 100 DROP/5 ML BOTTLE OP ×2 (05:17→12:19)
[2023-05-28 05:18] LABS: Basophils Absolute Auto 0.1 10^3/uL (0.0-0.1); Basophils Percent Auto 0.7 % (0.2-2.0); Eosinophils Percent Auto 0.1 % (0.9-7.0); Hematocrit 31.1 % (36.0-48.0); Hemoglobin 10.5 g/dL (12.0-16.0); Immature Granulocytes Pct Auto 7.8 % (0.0-0.5); Lymphocytes Absolute Auto 1.9 10^3/uL (1.2-3.8); Lymphocytes Percent Auto 15.1 % (20.5-60.0); Mean Corpuscular HGB Conc 33.8 g/dL (29.9-35.2); Mean Corpuscular Hemoglobin 31.7 pg (26.7-34.0); Mean Platelet Volume 8.3 fL (9.5-13.5); Monocytes Absolute Auto 0.9 10^3/uL (0.3-0.8); Neutrophils Absolute Auto 8.9 10^3/uL (1.4-6.5); Neutrophils Percent Auto 69.3 % (43.0-75.0); Platelet Count 317 10^3/uL (150-450); Red Blood Count 3.31 10^6/uL (4.20-5.40); Red Cell Distribution Width 12.9 % (11.0-15.0); White Blood Count 12.8 10^3/uL (4.0-11.0)
[2023-05-28 05:34] LABS: Erythrocyte Sedimentation Rate 87 mm/hr (<=20)
[2023-05-28] MEDS: VANCOMYCIN HCL 1,500 MG in 0.9 % SODIUM CHLORIDE 500 ML 250 MG IV (05:47)
[2023-05-28 07:30] VITALS: BP 144/92; PULSE 70; TEMP 36.4; O2SAT 99
[2023-05-28] MEDS: LACTOSE -REDUCED (ENSURE ORIGINAL 237 ML LIQUID) PO (09:20)
[2023-05-28] MEDS: LEVONORGESTREL ETHINYL ESTRAD PO (12:21)
[2023-05-28] MEDS: ATOMOXETINE 60 MG 60 EACH PO (12:21)
[2023-05-28] MEDS: CALCIUM CARBONATE 600 MG/VITAMIN D3 400 IU TABLET 1 TAB PO (12:21)
[2023-05-28] MEDS: CALCIUM POLYCARBOPHIL 625 MG TABLET 1250 MG PO (12:21)
[2023-05-28] MEDS: MONTELUKAST SODIUM 10 MG TABLET PO (12:22)
[2023-05-28] MEDS: OMEPRAZOLE 20 MG CAPSULE.DR PO (12:22)
[2023-05-28] MEDS: DOCUSATE SODIUM 100 MG CAPSULE 200 MG PO (12:23)
[2023-05-28] MEDS: CARBAMAZEPINE 200 MG 200 EACH PO (12:23)
[2023-05-28] MEDS: PALIPERIDONE 6 MG 6 EACH PO (12:23)
[2023-05-28] MEDS: LAMOTRIGINE 200 MG TABLET 1 EACH PO (12:24)
--- NOTE | 2023-05-28 12:28 | P.DS_ITS ---
DS: Providers Provider Date of admission: 05/25/23 01:42 Primary care physician: JOHN MUNROE DO Consults: 05/25/23 01:18 Consult to Pharmacy Routine Consulting Provider: Reason for consultation: Vancomycin dosing/monitoring for orbital cellulitis Has provider been notified: No DS: Diagnosis Discharge Diagnosis (1) Cellulitis of right orbit: (2) Hypertension: (3) Moderate intellectual disability: (4) Bipolar 1 disorder: DS: Summary Hospital Course Hospital Course: Reason for admission: See ER note and H&P for details. 37 y/o female with a history of MRDD who presented from senior care with possible allergic reaction. Developed facial swelling and PCP started cefdinir. Developed increased redness and swelling and sent to ER. WBC elevated at 24.[address] showed periorbital cellulitis and admitted. Hospital course: Started fortaz and flagyl. Redness and swelling worsened and added vancomycin. C/o itching and on solu-medrol. Repeat CT showed increased edema but no abscess. Gradually improved. WBC decreased. Afebrile. Redness and swelling much improved. Tolerating oral intake. Discharged home in stable condition. Will resume cefdinir and add doxycycline. Take prednisonen x 5 days. Resume home medication as directed. Time Spent with Patient Time attestation: Total time spent providing and/or coordinating discharge services: Exam Constitutional Vital Signs, click to edit/add: Last Vital Signs Temp 97.5 F L 05/28/23 07:30 Pulse 70 05/28/23 07:30 Resp 18 05/28/23 07:30 BP 144/92 H 05/28/23 07:30 Pulse Ox 99 05/28/23 07:30 O2 Del Method Room Air 05/28/23 07:30 Documenting provider has reviewed patient's vital signs: yes Common normals: no apparent distress, oriented x3 and alert HENMT Common normals: normocephalic Face and sinus: other (Mild redness and peeling skin around right eye) Eye Common normals: PERRL and EOMs intact bilaterally Respiratory Common normals: normal respiratory effort and clear to auscultation bilaterally Cardio Common normals: regular rate, regular rhythm, no gallops, no murmurs and no rub GI Common normals: Normal to inspection, nondistended, normoactive bowel sounds present and non-tender Extremity Common normals: no pedal edema DS: Data Data Completed and Pending Labs on day of discharge: Labs from last 24 hours 05/28/23 05/28/23 05:13 04:10 WBC 12.8 H RBC 3.31 L Hgb 10.5 L Hct 31.1 L MCV 94.0 MCH 31.7 MCHC 33.8 RDW 12.9 Plt Count 317 MPV 8.3 L Neut % (Auto) 69.3 Lymph % (Auto) 15.1 L [place] % (Auto) 7.0 Eos % (Auto) 0.1 L Baso % (Auto) 0.7 Neut # (Auto) 8.9 H Lymph # (Auto) 1.9 [place] # (Auto) 0.9 H Eos # (Auto) 0.0 Baso # (Auto) 0.1 Abs Immat Gran (auto) 1.00 H Imm/Tot Granulo (auto) 7.8 H ESR 87 H Sodium 136 Potassium 4.4 Chloride 103 Carbon Dioxide 24.4 Anion Gap 13.0 BUN 7.0 Creatinine 0.42 L Est GFR ( Amer) >60 Est GFR (Non-Af Amer) >60 BUN/Creatinine Ratio 16.7 Glucose 122 H Calcium 8.6 Total Bilirubin 0.1 L AST 19 ALT 27 Alkaline Phosphatase 56 C-Reactive Protein 4.21 H Total Protein 6.2 L Albumin 2.5 L Globulin 3.7 Albumin/Globulin Ratio 0.7 Preliminary micro results at discharge 05/25/23 10:44 - Preliminary Blood NO GROWTH AT 36-48 HOURS. FINAL TO FOLLOW. 05/25/23 10:39 Blood Culture Result 1 - Preliminary Blood NO GROWTH AT 36-48 HOURS. FINAL TO FOLLOW. Discharge Plan Discharge Disposition: Home, Self-Care Discharge Medications: New prednisone 50 mg tablet 50 mg PO DAILY 5 Days Qty: 5 0RF doxycycline hyclate 100 mg capsule 100 mg PO BID 10 Days Qty: 20 0RF Continued atomoxetine 40 mg capsule 40 mg PO QPM Patient Comments: takes at 4pm atomoxetine 60 mg capsule 60 mg PO QAM Patient Comments: takes at 8 am calcium carbonate-vitamin D3 600 mg-20 mcg (800 unit) tablet 1 tab PO BID Patient Comments: 0800,2000 carbamazepine 400 mg tablet extended release 12 hr 400 mg PO DAILY Patient Comments: 8 pm carbamazepine 200 mg tablet extended release 12 hr 200 mg PO Q12H Patient Comments: 0800, 1600 cefdinir 300 mg capsule 300 mg PO Q12H Patient Comments: 05/24/23-05/31/23 Rx Instructions: 1 week clonidine HCl 0.2 mg tablet 0.2 mg PO Q8H Patient Comments: 0800,1599,1999 dicyclomine 20 mg tablet 20 mg PO BID Patient Comments: 799,1999 docusate sodium 100 mg capsule 200 mg PO BID Patient Comments: 799,1999 fenofibrate micronized 134 mg capsule 134 mg PO BEDTIME fluorouracil 5 % cream 1 applic TOPICAL BID guanfacine 2 mg tablet 2 mg PO TID Patient Comments: 08,1599,1999 lamotrigine 150 mg tablet 300 mg PO BEDTIME Patient Comments: 1999 lamotrigine 200 mg tablet 200 mg PO DAILY Patient Comments: 08 loratadine 10 mg tablet 10 mg PO Q24H Patient Comments: 0800 metoprolol tartrate 100 mg tablet 100 mg PO QID Rx Instructions: scheduled at 0800, 1200, 1600 and 1999 at [facility] montelukast 10 mg tablet 10 mg PO DAILY Patient Comments: 0800 olanzapine 20 mg tablet 20 mg PO QPM Rx Instructions: at 1999 omeprazole 20 mg capsule,delayed release(DR/EC) 20 mg PO DAILY Patient Comments: 0800 paliperidone 6 mg tablet extended release 24hr 6 mg PO BID Patient Comments: 799,1999 levonorgestrel-ethinyl estrad [Aviane] 0.1-20 mg-mcg tablet 1 tab PO DAILY calcium polycarbophil [Fiber-Lax] 625 mg tablet 1,250 mg PO DAILY Patient Comments: takes at 0800 lamotrigine 100 mg tablet 100 mg PO QPM Patient Comments: at 8 pm olanzapine [Zyprexa] 10 mg tablet 10 mg PO QPM Patient Comments: at 1999 Activity: resume usual activities as tolerated Diet: advance to your usual diet Print Language: Welsh Forms: Portal Instructions
[2023-05-28 12:32] VITALS: O2SAT 95
== END 2023-05-28 14:50 | disposition home or self-care (01) | DRG 603 ==
LOC: ER 05-25 01:04 → MS 05-25 01:43
PROVIDERS: Emergency Medicine Emergency Medical Services; Registered Nurse; Admitting Provider Family Medicine; Emergency Provider Internal Medicine; PCP Family Medicine; Visit Provider Family Medicine
DX: L03.213 Periorbital cellulitis (principal); E87.1 Hypo-osmolality and hyponatremia; E86.0 Dehydration; D50.9 Iron deficiency anemia, unspecified; F71 Moderate intellectual disabilities; F31.9 Bipolar disorder, unspecified; I10 Essential (primary) hypertension; R00.0 Tachycardia, unspecified; R73.9 Hyperglycemia, unspecified; Z79.3 Long term (current) use of hormonal contraceptives; Z79.899 Other long term (current) drug therapy; Z88.6 Allergy status to analgesic agent; Z88.5 Allergy status to narcotic agent; Z88.0 Allergy status to penicillin; Z88.8 Allergy status to other drugs, medicaments and biological substances
CPT/HCPCS: 36415; 36592; 70486; 80048; 80053; 80202; 81001; 83605; 84145; 85007; 85025; 85027; 85652; 86140; 86592; 86803; 87040; 87086; 87340; 87389; 94761; 96365; 96366; 96367; 96368; 96375; 96376; 99285; C1887; J2919; J3370

== ENCOUNTER 2023-06-16 06:34 | Outpatient (OUT) | payer MEDICARE, MEDICAID, SELFPAY ==
--- OUTSIDE RECORDS SUMMARY | 2023-06-16 06:39 | XMS_ITS | CCD ---
Author Organization [facility] Care Team Providers Care Online Banking Specialist Name Role Phone SYSTEM, PROVIDER NOT IN Admitting Unavaila ble SYSTEM, PROVIDER NOT IN Referring Unavaila ble EVANS KILGORE Primary Care Unavailable Unavailable Primary Care Provider Unavailabl e PROVIDER, UNKNOWN Attending Unavailable PROVIDER, UNKNOWN Admitting Unavailable MUNROE, DR LIO Gates Consulting Unavailable MUNROE, DR LIO Gates Attending Unavailable MUNROE, DR LIO Gates Admitting Unavailable MUNROE, DR LIO Gates Primary Care Unavailable KARASIK ., DR PRUITT Admitting Unavailabl e KARASIK ., DR PRUITT Consulting Unavailabl e KARASIK ., DR PRUITT Attending Unavailabl e MUNROE, DR LIO Gates Primary Care Unavailable MUNROE, DR LIO Gates Consulting Unavailable MUNROE, DR LIO Gates Attending Unavailable MUNROE, DR LIO Gates Admitting Unavailable MUNROE, DR LIO Gates Primary Care Unavailable MUNROELIO Primary Care Physician LIO MUNROE Attending Unavailable MUNROE, LIO Admitting Unavailable MUNROE, LIO Attending Unavailable MUNROE, LIO Admitting Unavailable Unavailable Primary Care Provider Unavailabl e NON STAFF Primary Care Provider Unavailabl e IMAN Amanda Emergency Provider [phone] Jass, DO Yazid Admit Provider Jass DO Arvind Attending Provider IMAN Amanda Emergency Provider [phone] Jass, DO Yazid Admit Provider DO Rico Romero Attending Provider [phone] DO Lio Munroe Primary Care Provider Arvind Regan Admitting Unavailable Lio Munroe Primary Care Unavailable Rico Romero Attending UnavailKAMINI Saldana Attending Unavailable KAMINI RAMIREZ Attending Unavailable Allergies Allergy Classification Reported Allergen(s) Allergy Type Date of Onset Reaction(s) Facility (5 sources) Amoxicillin; Translations: [AMOXICILLIN] Drug Allergy Unknown Reaction [facility] (4 sources) ARIPiprazole; Translations: [ABILIFY] Drug Allergy [facility] Work Phone: (3 sources) Dextromethorphan; Translations: [DEXTROMETHORPHAN HBR] Drug Allergy [facility] (5 sources) metyroSINE; Translations: [METYROSINE] Drug Allergy Unknown Reaction [facility] (5 sources) Molindone; Translations: [MOLINDONE] Drug Allergy Unknown Reaction [facility] (3 sources) Nalbuphine; Translations: [NALBUPHINE] Drug Allergy [facility] (3 sources) Valproate; Translations: [VALPROIC ACID] Drug Allergy 019 [facility] (3 sources) Food; Translations: [FOOD] Propensity to adverse reactions to drug [facility] (5 sources) Sympathomimetics; Translations: [SYMPATHOMIMETICS] Propensity to adverse reactions to drug Unknown Reaction [facility] (1 source) Amoxicillin Drug Allergy [facility] (1 source) metyroSINE Drug Allergy [facility] (1 source) Molindone Drug Allergy [facility] (1 source) Nalbuphine Drug Allergy [facility] (1 source) Valproate Drug Allergy [facility] (1 source) [address] [employer] Drug allergy (disorder) [facility] (2 sources) ARIPiprazole Drug Allergy Unknown Reaction [facility] (2 sources) Chlorpheniramine Drug Allergy Unknown Reaction [facility] (2 sources) Dextromethorphan Drug Allergy Unknown Reaction [facility] (2 sources) guaiFENesin Drug Allergy Unknown Reaction [facility] (2 sources) Phenylpropanolamine Drug Allergy Unknown Reaction [facility] (2 sources) Pseudoephedrine Drug Allergy Unknown Reaction [facility] (2 sources) Valproate Drug Allergy Unknown Reaction [facility] Medications Current Medications Medication Drug Class(es) Dates Sig (Normalized) Sig (Original) atomoxetine 40 mg oral capsule (4 sources) Norepinephrine Reuptake Inhibitor Start: 05-29-2023 take 40 mg by mouth once daily in the evening Atomoxetine Active 40 MG PO Every evening May 29, 2023 12:00am Start: 05-29-2023 take 60 mg by mouth once daily in the morning Atomoxetine Active 60 MG PO Every morning May 29, 2023 12:00am busPIRone hydrochloride 10 mg oral tablet (2 sources) take 1 tablet by mouth twice daily busPIRone (BUSPAR) 10 MG tablet Take 10 mg by mouth 2 times daily. 0 Active calcium carbonate 750 mg chewable tablet (2 sources) Start: 05-29-2023 take 1 tablet by mouth every four hours Calcium Carbonate (Tums) 300 mg (750 mg) tablet,chewable Active 600 MG PO Every 4 hours May 29, 2023 12:00am calcium carbonate 1500 mg / cholecalciferol 200 unt oral capsule (2 sources) Vitamin D Start: 05-29-2023 take 1 capsule by mouth twice daily Calcium Carbonate-Vitamin D3 (Calcium 600 + D(3)) 600 mg-5 mcg (200 unit) capsule Active 1 CAP PO Twice daily May 29, 2023 12:00am calcium polycarbophil 625 mg oral tablet (4 sources) Start: 05-29-2023 Calcium Polycarbophil (Fiber-Lax) 625 mg tablet Active 1250 MG PO Daily May 29, 2023 12:00am Calcium Polycarb ophil (FIBER-LAX ORAL) Take by mouth. 0 Active 12 hr carBAMazepine 400 mg extended release oral tablet (4 sources) Mood Stabilizer Start: 05-29-2023 take 400 mg by mouth once daily in the evening Carbamazepine Active 400 MG PO Every evening May 29, 2023 12:00am carbamazepine (T EGRETOL) 100 MG chewable tablet carbamazepine 100 mg chewable tablet 0 Active cloNIDine hydrochloride 0.2 mg oral tablet (4 sources) Central alpha-2 Adrenergic Agonist Start: 05-29-2023 take 0.2 mg by mouth three times daily Clonidine Hcl Active 0.2 MG PO Three times daily May 29, 2023 12:00am Start: 06-12-2020 cloNIDine (CAT DANIEL) 0.2 MG tablet diazePAM 5 mg oral tablet (2 sources) Benzodiazepine Start: 05-29-2023 take 5 mg by mouth once Diazepam Active 5 MG PO As Directed May 29, 2023 12:00am 1 hour prior to procedure dicyclomine hydrochloride 20 mg oral tablet (4 sources) Anticholinergic Start: 05-29-2023 take 20 mg by mouth twice daily Dicyclomine Active 20 MG PO Twice daily May 29, 2023 12:00am take 1 tablet by mouth every six hours dicyclomine (BENTYL) 20 MG tablet Take 20 mg by mouth every 6 hours. 0 Active docusate sodium 100 mg oral capsule (4 sources) Start: 05-29-2023 take 200 mg by mouth twice daily Docusate Sodium Active 200 MG PO Twice daily May 29, 2023 12:00am take 1 capsule by mouth three ti mes daily docusate sodium (COLACE) 100 MG capsule Take 100 mg by mouth 3 times daily. 0 Active doxycycline hyclate 100 mg oral capsule (2 sources) Tetracycline-class Drug Start: 05-29-2023 take 100 mg by mouth twice daily Doxycycline Hyclate Active 100 MG PO Twice daily May 29, 2023 12:00am x 10 days, started on 05/28/23 Levonorgestrel-Et hinyl Estrad (2 sources) Progestin, Estrogen, Progestin-containing Intrauterine Device Start: 05-29-2023 take 1 tablet by mouth once daily Levonorgestrel-E thinyl Estrad (Falmina (28)) 0.1-20 mg-mcg tablet Active 1 TAB PO Daily May 29, 2023 12:00am fenofibrate 120 mg oral tablet (4 sources) Peroxisome Proliferator Receptor alpha Agonist Start: 05-29-2023 take 1 capsule by mouth at bedtime Fenofibrate Active 120 MG PO Bedtime May 29, 2023 12:00am 134 mg capsule take 1 capsule by [facility] once daily at breakfast fenofibrate micronized (LOFIBRA) 134 MG capsule Take 134 mg by mouth daily (with breakfast). 0 Active fluorouracil 50 mg/ml topical cream (2 sources) Nucleoside Metabolic Inhibitor Start: 05-29-2023 Fluorouracil (Efudex) 5 % cream Active 1 APPLIC TOPICAL Twice daily May 29, 2023 12:00am fluticasone propionate 0.05 mg/actuat metered dose nasal spray (2 sources) Corticosteroid Start: 05-29-2023 take 1 spray(s) nasal route once daily Fluticasone Propionate (24 Hour Allergy Relief) 50 mcg/actuation spray,suspension Active 2 SPRAY INTRANASAL Daily May 29, 2023 12:00am administer into each nostril glycerin 2 mg/ml / naphazoline hydrochloride 0.12 mg/ml ophthalmic solution (2 sources) Non-Standardized Chemical Allergen Start: 05-29-2023 take 0.012-0.2 drop(s) into the eye(s) three times daily Naphazoline-Glycer in (Redness Relief) 0.012-0.2 % drops Active 2 DROPS OPHTHALMIC Three times daily May 29, 2023 12:00am guanFACINE 2 mg oral tablet (4 sources) Central alpha-2 Adrenergic Agonist Start: 05-29-2023 take 2 mg by mouth three times daily Guanfacine Active 2 MG PO Three times daily May 29, 2023 12:00am take 1.5 mg by mouth twice daily guanfacine (TENEX) 1 MG tablet Take 1.5 mg by mouth 2 times daily. 0 Active ibuprofen 200 mg oral tablet (2 sources) Nonsteroidal Anti-inflammatory Drug Start: 05-29-2023 Ibuprofen (Advil) 200 mg tablet Active 400 MG PO As Directed May 29, 2023 12:00am lamoTRIgine 200 mg oral tablet (8 sources) Mood Stabilizer, Anti-epileptic Agent Start: 05-29-2023 take 1 tablet by mouth at bedtime Lamotrigine (Lamictal) 100 mg tablet Active 100 MG PO Bedtime May 29, 2023 12:00am Start: 05-29-2023 Lamotrigine (L amictal) 150 mg tablet Active 300 MG PO Bedtime May 29, 2023 12:00am take with 100 mg tablet for total of 400 mg Start: 05-29-2023 take 1 tablet by kip once daily in the morning Lamotrigine (Lamictal) 200 mg tablet Active 200 MG PO Every morning May 29, 2023 12:00am take 2 tablets by mo [facility] once daily lamotrigine (LAMICTAL) 25 MG tablet Take 50 mg by mouth daily. 0 Active loperamide hydrochloride 2 mg oral tablet (2 sources) Opioid Agonist Start: 05-29-2023 Loperamide (Anti-Diarrheal (Loperamide)) 2 mg tablet Active 4 MG PO As Directed May 29, 2023 12:00am administer after each loose stool until symptoms controlled; do not exceed 8 mg per 24 hrs loratadine 10 mg oral tablet (4 sources) Start: 05-29-2023 take 1 tablet by mouth once daily Loratadine (Allerclear) 10 mg tablet Active 10 MG PO Daily May 29, 2023 12:00am take 1 tablet by mouth once yury y loratadine (CLARITIN) 10 MG tablet Take 10 mg by mouth daily. 0 Active metoprolol tartrate 100 mg oral tablet (4 sources) beta-Adrenergic Molly Start: 05-29-2023 take 100 mg by mouth four times daily Metoprolol Tartrate Active 100 MG PO Four times daily May 29, 2023 12:00am take 1 tablet by mouth twice [place] metoprolol (LOPRESSOR) 100 MG tablet Take 100 mg by mouth 2 times daily. 0 Active montelukast 10 mg oral tablet (4 sources) Leukotriene Receptor Antagonist Start: 05-29-2023 take 10 mg by mouth once daily Montelukast Active 10 MG PO Daily May 29, 2023 12:00am take 1 tablet by mouth once yury y montelukast (SINGULAIR) 10 MG tablet Take 10 mg by mouth daily. 0 Active moxifloxacin 400 mg oral tablet (1 source) Quinolone Antimicrobial Start: 06-01-2023 take 400 mg by mouth once daily Moxifloxacin Active 400 MG PO Daily 5 5 June 01, 2023 12:00am naltrexone hydrochloride 50 mg oral tablet (2 sources) Opioid Antagonist take 1 tablet by mouth once daily naltrexone (DEPADE) 50 MG tablet Take 50 mg by mouth daily. 0 Active OLANZapine 10 mg oral tablet (6 sources) Atypical Antipsychotic Start: 05-29-2023 Olanzapine Active 20 MG PO Daily at bedtime May 29, 2023 12:00am take with 10 mg tablet for total dose of 30 mg Start: 05-29-2023 take 10 mg by mouth once daily at bedtime Olanzapine Active 10 MG PO Daily at bedtime May 29, 2023 12:00am take 1 tablet by kip th once daily olanzapine (ZYPREXA) 20 MG tablet Take 20 mg by mouth daily. 0 Active omeprazole 20 mg delayed release oral capsule (4 sources) Proton Pump Inhibitor Start: 05-29-2023 take 20 mg by mouth once daily Omeprazole Active 20 MG PO Daily May 29, 2023 12:00am take 1 capsule by mouth once [place] omeprazole (PRILOSEC) 20 MG capsule Take 20 mg by mouth daily. 0 Active 24 hr paliperidone 6 mg extended release oral tablet (2 sources) Atypical Antipsychotic Start: 05-29-2023 take 6 mg by mouth twice daily Paliperidone Active 6 MG PO Twice daily May 29, 2023 12:00am petrolatum 1 mg/mg topical ointment (2 sources) Start: 05-29-2023 White Petrolatum (Petroleum Jelly) gel Active 1 APPLIC TOPICAL Twice daily May 29, 2023 12:00am twice a day and PRN until face is healed raNITIdine 150 mg oral tablet (2 sources) Histamine-2 Receptor Antagonist take 1 tablet by mouth twice daily ranitidine (ZANTAC) 150 MG tablet Take 150 mg by mouth 2 times daily. 0 Active Sennosides (Senna) 8.6 mg capsule (2 sources) Start: 05-29-2023 take 2 capsules by mouth twice daily Sennosides (Senna) 8.6 mg capsule Active 17.2 MG PO Twice daily May 29, 2023 12:00am sodium chloride 0.111 meq/ml nasal spray (2 sources) Start: 05-29-2023 Sodium Chloride (Altamist) 0.65 % aerosol,spray Active 1 SPRAY INTRANASAL As Directed May 29, 2023 12:00am 3-4 times a day as needed zolpidem tartrate 10 mg oral tablet (2 sources) gamma-Aminobutyric Acid-ergic Agonist Start: 06-10-2020 zolpidem (AMBIEN) 10 MG tablet Completed/Discontinued Medications Medication Drug Class(es) Dates Sig (Normalized) Sig (Original) ondansetron 4 mg disintegrating oral tablet (2 sources) Serotonin-3 Receptor Antagonist Start: 05-29-2023 End: 04-10-2024 take 4 mg by mouth every six hours Ondansetron Discontinued 4 MG PO Every 6 hours May 29, 2023 12:00am June 01, 2023 12:13pm predniSONE 50 mg oral tablet (2 sources) Start: 05-29-2023 End: 06-01-2023 take 50 mg by mouth once daily Prednisone Discontinued 50 MG PO Daily May 29, 2023 12:00am June 01, 2023 12:13pm x5 days, started on 05/29/23 Problems Active Problems Problem Classification Problem Date Documented Date Episodic/Chronic Anxiety disorders (4 sources) Posttraumatic stress disorder; Translations: [Post-traumatic stress disorder, unspecified] Onset: 05-30-2023 05-29-2023 Chronic Attention-deficit, conduct, and disruptive behavior disorders (2 sources) Attention deficit hyperactivity disorder; Translations: [Attention-deficit hyperactivity disorder, unspecified type] Onset: 05-25-2012 06-03-2018 Chronic Developmental disorders (6 sources) Moderate intellectual disability; Translations: [Moderate intellectual disabilities] Onset: 05-25-2012 05-25-2012 Chronic Disorders of lipid metabolism (4 sources) Hypercholesterolemia ; Translations: [Pure hypercholesterolemia , unspecified] Onset: 05-30-2023 05-29-2023 Chronic Disorders of teeth and jaw (2 sources) Chronic periodontitis; Translations: [Chronic periodontitis, unspecified] Onset: 06-09-2012 06-09-2012 Chronic Epilepsy; convulsions (4 sources) Seizure disorder; Translations: [Epilepsy, unspecified, not intractable, without status epilepticus] Onset: 05-30-2023 05-29-2023 Chronic Essential hypertension (4 sources) Hypertensive disorder; Translations: [Essential (primary) hypertension] Onset: 05-30-2023 05-29-2023 Chronic Fluid and electrolyte disorders (1 source) Hyponatremia; Translations: [Hypo-osmolality and hyponatremia] 05-25-2023 Episodic Genitourinary symptoms and ill-defined conditions (5 sources) Unspecified abnormal findings in urine; Translations: [Other abnormal findings in urine] Onset: 05-17-2022 Episodic Mood disorders (4 sources) Bipolar disorder; Translations: [Bipolar disorder, unspecified] Onset: 05-30-2023 05-29-2023 Chronic Residual codes; unclassified (3 sources) Other specified health status; Translations: [Failure of outpatient treatment] Onset: 05-30-2023 05-31-2023 Episodic Skin and subcutaneous tissue infections (5 sources) Cellulitis of periorbital region; Translations: [Periorbital cellulitis] Onset: 05-30-2023 05-29-2023 Episodic Past or Other Problems Problem Classification [...] Test Name Value Interpretation Reference Range Facility Alanine aminotransferase [En zymatic activity/volume] in Serum or PlasmaOrdered By: Rico Romero on 06-01-2023 ALT [Catalytic activity/Vol] 15 U/L 7-52 [facility] Albumin [Mass/volume] in Ser um or Plasma by Bromocresol green (BCG) dye binding methoOrdered By: Rico Romero on 06-01-2023 Albumin BCG dye [Mass/Vol] 3.5 g/dL 3.5-5.7 [facility] Alkaline phosphatase [Enzyma tic activity/volume] in Serum or PlasmaOrdered By: Rico Romero on 06-01-2023 ALP [Catalytic activity/Vol] 42 U/L 34-104 [facility] Aspartate aminotransferase [ Enzymatic activity/volume] in Serum or PlasmaOrdered By: Rico Romero on 06-01-2023 AST [Catalytic activity/Vol] 13 U/L 13-39 [facility] Band form neutrophils/100 WB C Manual cnt (Bld)Ordered By: Arvind Regan on 06-01-2023 Band form neutrophils/100 WBC (Bld) 5 % 0-5 [facility] Basophils Auto (Bld) [#/Vol] Ordered By: Arvind Regan on 06-01-2023 Basophils (Bld) [#/Vol] N/A [facility] Basophils/100 WBC Auto (Bld) Ordered By: Arvind Regan on 06-01-2023 Basophils/100 WBC (Bld) N/A [facility] Bilirubin.total [Mass/volume ] in Serum or PlasmaOrdered By: Rico Romero on 06-01-2023 Bilirubin [Mass/Vol] 0.2 mg/dL 0.3-1.0 [facility] C reactive protein [Mass/vol ume] in Serum or PlasmaOrdered By: Rico Romero on 06-01-2023 CRP [Mass/Vol] 1.1 mg/dL 0.0-0.5 [facility] C-Reactive Proteinon 024 C-Reactive Protein 1.1 mg/dL High 0.0-0.5 [facility] Comment on above: Result Comment: PERF ORMED BY: [place] [address] PATHOLOGIST TRAVEL COORDINATOR REJI SALAZAR M.D. Performed By: #### L ACTIC, CRP #### [address] Calcium [Mass/volume] in Ser um or PlasmaOrdered By: Rico Romero on 06-01-2023 Calcium [Mass/Vol] 8.9 mg/dL 8.6-10.3 [facility] Carbon dioxide, total [Moles /volume] in Serum or PlasmaOrdered By: Rico Romero on 06-01-2023 CO2 [Moles/Vol] 26.6 mmol/L 21.0-31.0 [facility] Chloride [Moles/volume] in S [place] or PlasmaOrdered By: Rico Romero on 06-01-2023 Chloride [Moles/Vol] 102 mmol/L 98-107 [facility] Comprehensive Metabolic Pane carlos 06-01-2023 Albumin [Mass/Vol] 3.5 g/dL Normal 3.5-5.7 [facility] Comment on above: Performed By: #### R SANDRINE Shaw #### [address] Albumin/Globulin [Mass ratio] 1.2 {ratio} Normal [facility] Comment on above: Performed By: #### Devante Shaw #### [address] ALP [Catalytic activity/Vol] 42 U/L Normal 34-104 [facility] Comment on above: Performed By: #### Devante Shaw #### [address] ALT [Catalytic activity/Vol] 15 U/L Normal 7-52 [facility] Comment on above: Performed By: #### Devante Shaw #### [address] Anion gap [Moles/Vol] 11.7 mmol/L Normal 6.0-15.0 [facility] Comment on above: Performed By: #### Devante Shaw #### [address] AST [Catalytic activity/Vol] 13 U/L Normal 13-39 [facility] Comment on above: Performed By: #### Devante Shaw #### [address] Bilirubin [Mass/Vol] 0.2 mg/dL Low 0.3-1.0 [facility] Comment on above: Performed By: #### Devante Shaw #### [address] Calcium [Mass/Vol] 8.9 mg/dL Normal 8.6-10.3 [facility] Comment on above: Performed By: #### Devante Shaw #### [place] [address] [place] Chloride [Moles/Vol] 102 mmol/L Normal 98-107 [facility] Comment on above: Performed By: #### Devante Shaw #### [place] [address] [place] CO2 [Moles/Vol] 26.6 mmol/L Normal 21.0-31.0 [facility] Comment on above: Performed By: #### Devante Shaw #### [address] Creatinine [Mass/Vol] 0.43 mg/dL Low 0.60-1.20 [facility] Comment on above: Performed By: #### Devante Shaw #### [place] [address] [place] Creatinine Clr Calc Pharmacy 191.30 Normal [facility] Comment on above: Performed By: #### Devante Shaw #### [place] [address] [place] GFR/1.73 sq M.predicted MDRD (S/P/Bld) [Vol rate/Area] mL/min/{1.73_m2} Normal [facility] Comment on above: Performed By: #### Devante Shaw #### [address] Globulin (S) [Mass/Vol] 3.0 g/dL Normal T [facility] Comment on above: Performed By: #### Devante Shaw #### [address] Glucose [Mass/Vol] 107 mg/dL High 70-100 [facility] Comment on above: Result Comment: [facility] Glucose Reference Range is dependent on time and content of last meal. Glucose of more than 200 mg/dL in a nonstressed, ambulatory subject supports the diagnosis of Diabetes Mellitus. ADA recommended reference range Performed By: #### Devante Shaw #### [address] Potassium [Moles/Vol] 4.3 mmol/L Normal 3.5-5.1 [facility] Comment on above: Performed By: #### Devante Shaw #### [address] Protein [Mass/Vol] 6.5 g/dL Normal 6.4-8.9 [facility] Comment on above: Performed By: #### R EDRAW K #### [facility] [address] Sodium [Moles/Vol] 136 mmol/L Normal 136-145 [facility] Comment on above: Performed By: #### R EDROLY K #### [facility] [address] [place] [address] [place] Urea nitrogen [Mass/Vol] 9 mg/dL Normal 7-25 [facility] Comment on above: Performed By: #### R SANDRINE K #### [facility] [address] [place] [address] [place] Creatinine [Mass/volume] in Serum or PlasmaOrdered By: Rico Romero on 06-01-2023 Creatinine [Mass/Vol] 0.43 mg/dL 0.60-1.20 [facility] Diff and CBCon 06-01-2023 Band form neutrophils/100 WBC (Bld) 5 % Normal 0-5 [facility] Comment on above: Performed By: #### L ACTIC, CRP #### [facility] [address] [place] [address] [place] Eosinophils/100 WBC (Bld) 4 % High 1-3 [facility] Comment on above: Performed By: #### L ACTIC, CRP #### [facility] [address] [place] [address] [place] Erythrocyte distribution width (RBC) [Ratio] 13.7 % Normal 11.9-15.3 [facility] Comment on above: Performed By: #### L ACTIC, CRP #### [facility] [address] Hematocrit (Bld) [Volume fraction] 35.5 % Normal 34.0-46.4 [facility] Comment on above: Performed By: #### L ACTIC, CRP #### [facility] [address] Hemoglobin (Bld) [Mass/Vol] 11.7 g/dL Low 11.8-15.4 [facility] Comment on above: Performed By: #### L ACTIC, CRP #### [facility] [address] Lymphocytes/100 WBC (Bld) 24 % Normal 18-42 [facility] Comment on above: Performed By: #### L ACTIC, CRP #### [facility] [address] [place] [address] [place] MCH (RBC) [Entitic mass] 31.0 pg Normal 24.7-34.3 [facility] Comment on above: Performed By: #### L ACTIC, CRP #### [address] MCV (RBC) [Entitic vol] 93.9 fL Normal 80-100 [facility] Comment on above: Performed By: #### L ACTIC, CRP #### [address] Mean Corpuscular HGB Conc 33.0 g/dL Normal 32.0-35.0 [facility] Comment on above: Performed By: #### L ACTIC, CRP #### [address] Monocytes/100 WBC (Bld) 6 % Normal 2-11 [facility] Comment on above: Performed By: #### L ACTIC, CRP #### [address] Myelocytes 11 % High 0-0 [facility] Comment on above: Performed By: #### L ACTIC, CRP #### [place] [address] [place] Platelet Estimate Increased Normal Normal [facility] Comment on above: Performed By: #### L ACTIC, CRP #### [place] [address] [place] Platelet mean volume (Bld) [Entitic vol] 6.1 fL Low 6.3-10.7 [facility] [facility] Comment on above: Performed By: #### L ACTIC, CRP #### [place] [address] [place] Platelet Morphology Normal Normal Normal [facility] Comment on above: Performed By: #### L ACTIC, CRP #### [facility] [address] [place] [address] [place] Platelets (Bld) [#/Vol] 456 10*3/uL High 150-450 [facility] Comment on above: Performed By: #### L ACTIC, CRP #### [facility] [address] [place] [address] [place] RBC (Bld) [#/Vol] 3.77 10*6/uL Normal 3.60-5.00 [facility] Comment on above: Performed By: #### L ACTIC, CRP #### [facility] [address] RBC morphology finding Nom (Bld) Normal Normal Normal [facility] Comment on above: Performed By: #### L ACTIC, CRP #### [facility] [address] Segmented neutrophils/100 WBC (Bld) 51 % Normal 50-70 [facility] Comment on above: Performed By: #### L ACTIC, CRP #### [facility] [address] [place] [address] [place] WBC (Bld) [#/Vol] 10.1 10*3/uL Normal 3.8-11.6 [facility] Comment on above: Performed By: #### L ACTIC, CRP #### [facility] [address] [place] [address] [place] Eosinophils Auto (Bld) [#/Vo l]Ordered By: Arvind Regan on 06-01-2023 Eosinophils (Bld) [#/Vol] N/A [facility] Eosinophils/100 WBC Auto (Bl d)Ordered By: Arvind Regan on 06-01-2023 Eosinophils/100 WBC (Bld) N/A [facility] Eosinophils/100 WBC Manual c nt (Bld)Ordered By: Arvind Regan on 06-01-2023 Eosinophils/100 WBC (Bld) 4 % 1-3 [facility] Erythrocyte Sedimentation Ra don 06-01-2023 ESR (Bld) [Velocity] 30 mm/h High 0-19 [facility] Comment on above: Result Comment: PERF ORMED BY: [facility] [address] [place] [address] PATHOLOGIST TRAVEL COORDINATOR REJI SALAZAR M.D. Performed By: #### L ACTIC, CRP #### [facility] [address] Erythrocyte distribution wid th Auto (RBC) [Ratio]Ordered By: Arvind Regan on 06-01-2023 Erythrocyte distribution width (RBC) [Ratio] 13.7 % 11.9-15.3 [facility] Erythrocyte sedimentation ra te by Photometric methodOrdered By: Rico Romero on 06-01-2023 ESR Photometric method (Bld) [Velocity] 30 mm/hr 0-19 [facility] Globulin Calc (S) [Mass/Vol] Ordered By: Rico Romero on 06-01-2023 Globulin (S) [Mass/Vol] 3.0 g/dL [facility] Glucose [Mass/volume] in Ser um or PlasmaOrdered By: Rico Romero on 06-01-2023 Glucose [Mass/Vol] 107 mg/dL 70-100 [facility] Comment on above: ADA recommended refe rence rangeRandom Glucose Reference Range is dependent on time and content of last meal. Glucose of more than 200 mg/dL in a nonstressed, ambulatory subject supports the diagnosis of Diabetes Mellitus. Hematocrit Auto (Bld) [Volum e fraction]Ordered By: Arvind Regan on 06-01-2023 Hematocrit (Bld) [Volume fraction] 35.5 % 34.0-46.4 [facility] Hemoglobin [Mass/volume] in BloodOrdered By: Arvind Regan on 06-01-2023 Hemoglobin (Bld) [Mass/Vol] 11.7 g/dL 11.8-15.4 [facility] Leukocytes [#/volume] correc kristian for nucleated erythrocytes in Blood by Automated counOrdered By: Arvind Regan on 06-01-2023 WBC corrected for nucl RBC Auto (Bld) [#/Vol] 10.1 10*3/uL 3.8-11.6 [facility] Lymphocytes Auto (Bld) [#/Vo l]Ordered By: Yazid Jass on 06-01-2023 Lymphocytes (Bld) [#/Vol] N/A [facility] Lymphocytes/100 WBC Auto (Bl d)Ordered By: Yaneyda Jass on 06-01-2023 Lymphocytes/100 WBC (Bld) N/A [facility] Lymphocytes/100 WBC Manual c nt (Bld)Ordered By: Yazid Jass on 06-01-2023 Lymphocytes/100 WBC (Bld) 24 % 18-42 [facility] MCH Auto (RBC) [Entitic mass ]Ordered By: Yaneyda Jass on 06-01-2023 MCH (RBC) [Entitic mass] 31.0 pg 24.7-34.3 [facility] MCHC Auto (RBC) [Mass/Vol]Or dered By: Yaneyda Jass on 06-01-2023 MCHC (RBC) [Mass/Vol] 33.0 g/dL 32.0-35.0 [facility] MCV Auto (RBC) [Entitic vol] Ordered By: Yaneyda Murdocksein on 06-01-2023 MCV (RBC) [Entitic vol] 93.9 fL 80-100 [facility] Monocytes Auto (Bld) [#/Vol] Ordered By: Yaneyda Jass on 06-01-2023 Monocytes (Bld) [#/Vol] N/A [facility] Monocytes/100 WBC Auto (Bld) Ordered By: Yaneyda Jass on 06-01-2023 Monocytes/100 WBC (Bld) N/A [facility] Monocytes/100 WBC Manual cnt (Bld)Ordered By: Yaneyda Jass on 06-01-2023 Monocytes/100 WBC (Bld) 6 % 2-11 [facility] Myelocytes/100 WBC Manual cn t (Bld)Ordered By: Yaneyda Jass on 06-01-2023 Myelocytes/100 WBC (Bld) 11 % 0-0 [facility] Neutrophils Auto (Bld) [#/Vo l]Ordered By: Yaneyda Jass on 06-01-2023 Neutrophils (Bld) [#/Vol] N/A [facility] Neutrophils/100 WBC Auto (Bl d)Ordered By: Arvind Regan on 06-01-2023 Neutrophils/100 WBC (Bld) N/A [facility] No Panel InformationOrdered By: Rico Romero on 06-01-2023 Estimated GFR (CKD-EPI) > 60.0 mL/Min [facility] Creatinine Clearance (Chem 191.30 [facility] Nucleated erythrocytes [Pres ence] in Blood by Automated countOrdered By: Arvind Regan on 06-01-2023 Nucleated RBC Auto Ql (Bld) N/A [facility] Platelet adequacy [Presence] in Blood by Light microscopyOrdered By: Arvind Regan on 06-01-2023 Platelets LM Ql (Bld) Increased Normal [facility] Platelet mean volume Auto (B ld) [Entitic vol]Ordered By: Arvind Regan on 06-01-2023 Platelet mean volume (Bld) [Entitic vol] 6.1 fL 6.3-10.7 [facility] Platelet morphology finding [Identifier] in BloodOrdered By: Arvind Regan on 06-01-2023 Platelet morphology finding Nom (Bld) Normal Normal [facility] Platelets Auto (Bld) [#/Vol] Ordered By: Arvind Regan on 06-01-2023 Platelets (Bld) [#/Vol] 456 10*3/uL 150-450 [facility] Potassium [Moles/volume] in Serum or PlasmaOrdered By: Rico Romero on 06-01-2023 Potassium [Moles/Vol] 4.3 mmol/L 3.5-5.1 [facility] Protein [Mass/volume] in Ser um or PlasmaOrdered By: Rico Romero on 06-01-2023 Protein [Mass/Vol] 6.5 g/dL 6.4-8.9 [facility] RBC Auto (Bld) [#/Vol]Ordere d By: Arvind Regan on 06-01-2023 RBC (Bld) [#/Vol] 3.77 10*6/uL 3.60-5.00 [facility] RBC morphologyOrdered By: Maddie Regan on 06-01-2023 RBC morphology finding Nom (Bld) Normal Normal [facility] Segmented neutrophils/100 WB C Manual cnt (Bld)Ordered By: Arvind Regan on 06-01-2023 Segmented neutrophils/100 WBC (Bld) 51 % 50-70 [facility] Serum or plasma albumin/glob ulin mass ratioOrdered By: Rico Romero on 06-01-2023 Albumin/Globulin [Mass ratio] 1.2 {ratio} [facility] Serum or plasma anion gap de terminationOrdered By: Rico Romero on 06-01-2023 Anion gap [Moles/Vol] 11.7 mmol/L 6.0-15.0 [facility] Sodium [Moles/volume] in Ser um or PlasmaOrdered By: Rico Romero on 06-01-2023 Sodium [Moles/Vol] 136 mmol/L 136-145 [facility] Urea nitrogen [Mass/volume] in Serum or PlasmaOrdered By: Rico Romero on 06-01-2023 Urea nitrogen [Mass/Vol] 9 mg/dL 7-25 [facility] WBC Auto (Bld) [#/Vol]Ordere d By: Arvind Regan on 06-01-2023 WBC (Bld) [#/Vol] 10.1 10*3/uL 3.8-11.6 [facility] C-Reactive Proteinon 024 C-Reactive Protein 1.0 mg/dL High 0.0-0.5 [facility] Comment on above: Result Comment: PERF ORMED BY: [facility] [address] [place] [address] PATHOLOGIST TRAVEL COORDINATOR REJI SALAZAR M.D. Performed By: #### L ACTIC, CRP #### [facility] [address] [place] [address] [place] Diff and CBCon 05-31-2023 Band form neutrophils/100 WBC (Bld) 3 % Normal 0-5 [facility] Comment on above: Performed By: #### Devante Shaw #### [place] [address] [place] Eosinophils/100 WBC (Bld) 3 % Normal 1-3 [facility] Comment on above: Performed By: #### Devante Shaw #### [address] Erythrocyte distribution width (RBC) [Ratio] 13.6 % Normal 11.9-15.3 [facility] Comment on above: Performed By: #### Devante Shaw #### [address] Hematocrit (Bld) [Volume fraction] 34.3 % Normal 34.0-46.4 [facility] Comment on above: Performed By: #### Devante Shaw #### [address] Hemoglobin (Bld) [Mass/Vol] 11.5 g/dL Low 11.8-15.4 [facility] Comment on above: Performed By: #### Devante Shaw #### [place] [address] [place] Lymphocytes/100 WBC (Bld) 38 % Normal 18-42 [facility] Comment on above: Performed By: #### Devante Shaw #### [address] MCH (RBC) [Entitic mass] 31.2 pg Normal 24.7-34.3 [facility] Comment on above: Performed By: #### Devante Shaw #### [address] MCV (RBC) [Entitic vol] 92.8 fL Normal 80-100 [facility] Comment on above: Performed By: #### Devante Shaw #### [address] Mean Corpuscular HGB Conc 33.6 g/dL Normal 32.0-35.0 [facility] Comment on above: Performed By: #### Devante Shaw #### [address] Metamyelocytes 8 % High 0-0 [facility] Comment on above: Performed By: #### Devante Shaw #### [address] Monocytes/100 WBC (Bld) 4 % Normal 2-11 [facility] Comment on above: Performed By: #### Devante Shaw #### [address] Myelocytes 6 % High 0-0 [facility] Comment on above: Performed By: #### Devante Shaw #### [address] Platelet Estimate Increased Normal Normal [facility] Comment on above: Performed By: #### Devante Shaw #### [address] Platelet mean volume (Bld) [Entitic vol] 6.1 fL Low 6.3-10.7 [facility] Comment on above: Performed By: #### Devante Shaw #### [address] Platelet Morphology Normal Normal Normal [facility] Comment on above: Result Comment: PERF ORMED BY: [place] [address] PATHOLOGIST TRAVEL COORDINATOR REJI SALAZAR M.D. Performed By: #### Devante Shaw #### [place] [address] [place] Platelets (Bld) [#/Vol] 465 10*3/uL High 150-450 [facility] Comment on above: Performed By: #### Devante Shaw #### [address] Polychromasia Slight Normal [facility] Comment on above: Performed By: #### Devante Shaw #### [address] Promyelocytes 1 % High 0-0 [facility] Comment on above: Performed By: #### Devante Shaw #### [address] RBC (Bld) [#/Vol] 3.70 10*6/uL Normal 3.60-5.00 [facility] Comment on above: Performed By: #### Devante DELUCA K #### [address] RBC morphology finding Nom (Bld) Normal Normal Normal [facility] Comment on above: Performed By: #### R SANDRINE K #### [address] Segmented neutrophils/100 WBC (Bld) 38 % Low 50-70 [facility] Comment on above: Performed By: #### Devante DELUCA K #### [address] WBC (Bld) [#/Vol] 10.5 10*3/uL Normal 3.8-11.6 [facility] Comment on above: Performed By: #### Devante Shaw #### [address] Lactate [Moles/volume] in Se rum or PlasmaOrdered By: Anamaria Benton on 05-31-2023 Lactate [Moles/Vol] 1.4 mmol/L 0.5-2.2 [facility] Lactic Acidon 05-31-2023 Lactate [Moles/Vol] 1.4 mmol/L Normal 0.5-2.2 [facility] Comment on above: Result Comment: PERF ORMED BY: [place] [address] PATHOLOGIST TRAVEL COORDINATOR REJI SALAZAR M.D. Performed By: #### L ACTIC, CRP #### [place] [address] [place] Metamyelocytes/100 WBC Manua l cnt (Bld)Ordered By: Arvind Regan on 05-31-2023 Metamyelocytes/100 WBC (Bld) 8 % 0-0 [facility] No Panel InformationOrdered By: Arvind Regan on 05-31-2023 Slides for Pathologist Review Ordered path review [facility] Pathologist Slide Reviewon 0 05-31-2023 Pathologist Slide Review Ordered Path Review Normal [facility] Comment on above: Result Comment: PERF ORMED BY: [place] [address] PATHOLOGIST TRAVEL COORDINATOR REJI SALAZAR M.D. Performed By: #### R SANDRINE K #### [facility] [address] [place] [address] Polychromasia [Presence] in Blood by Light microscopyOrdered By: Arvind Regan on 05-31-2023 Polychromasia LM Ql (Bld) Slight [facility] Promyelocytes/100 WBC Manual cnt (Bld)Ordered By: Arvind Regan on 05-31-2023 Promyelocytes/100 WBC (Bld) 1 % 0-0 [facility] Serum or plasma trough vanco mycin levelOrdered By: Arvind Regan on 05-31-2023 Vancomycin trough [Mass/Vol] 7.4 ug/mL 10.0-20.0 [facility] Comment on above: Last dose: - Vancomycin,Peakon 05-31-2023 Vancomycin,Peak 14.1 ug/mL Low 20.0-40.0 [facility] Comment on above: Order Comment: PREVI OUS SAMPLE HEMOLYZED Result Comment: Last dose: - PERFORMED BY: [place] [address] PATHOLOGIST TRAVEL COORDINATOR REJI SALAZAR M.D. Performed By: #### R SANDRINE K #### [facility] [address] [place] [address] Vancomycin,Troughon 05-31-19 24 Vancomycin,Trough 7.4 ug/mL Low 10.0-20.0 [facility] Comment on above: Order Comment: Time of next dose? 399 Date of last dose?: [id number] Time of last dose?: 184 Result Comment: Last dose: - PERFORMED BY: [place] [address] PATHOLOGIST TRAVEL COORDINATOR REJI SALAZAR M.D. Performed By: #### V ANCT #### [address] Basophils/100 WBC Manual cnt (Bld)Ordered By: Arvind Regan on 05-30-2023 Basophils/100 WBC (Bld) 0 % 0-2 [facility] Comprehensive Metabolic Pane carlos 05-30-2023 Albumin [Mass/Vol] 3.4 g/dL Low 3.5-5.7 [facility] Comment on above: Performed By: #### Devante DELUCA K #### [address] Albumin/Globulin [Mass ratio] 1.3 {ratio} Normal [facility] Comment on above: Performed By: #### Devante DELUCA K #### [address] ALP [Catalytic activity/Vol] 49 U/L Normal 34-104 [facility] Comment on above: Performed By: #### Devante Shaw #### [address] ALT [Catalytic activity/Vol] 19 U/L Normal 7-52 [facility] Comment on above: Performed By: #### Devante Shaw #### [address] Anion gap [Moles/Vol] 10.6 mmol/L Normal 6.0-15.0 [facility] Comment on above: Performed By: #### Devante DELUCA K #### [address] AST [Catalytic activity/Vol] 12 U/L Low 13-39 [facility] Comment on above: Performed By: #### Devante Shaw #### [address] Bilirubin [Mass/Vol] 0.2 mg/dL Low 0.3-1.0 [facility] Comment on above: Performed By: #### Devante Shaw #### [address] Calcium [Mass/Vol] 8.6 mg/dL Normal 8.6-10.3 [facility] Comment on above: Performed By: #### Devante Shaw #### [address] Chloride [Moles/Vol] 102 mmol/L Normal 98-107 [facility] Comment on above: Performed By: #### Devante Shaw #### [address] CO2 [Moles/Vol] 28.4 mmol/L Normal 21.0-31.0 [facility] Comment on above: Performed By: #### Devante Shaw #### [address] Creatinine [Mass/Vol] 0.46 mg/dL Low 0.60-1.20 [facility] Comment on above: Performed By: #### Devante Shaw #### [address] Creatinine Clr Calc Pharmacy 179.58 Normal [facility] Comment on above: Performed By: #### Devante Shaw #### [address] GFR/1.73 sq M.predicted MDRD (S/P/Bld) [Vol rate/Area] mL/min/{1.73_m2} Normal [facility] Comment on above: Performed By: #### Devante Shaw #### [place] [address] [place] Globulin (S) [Mass/Vol] 2.7 g/dL Normal [facility] Comment on above: Performed By: #### Devante Shaw #### [place] [address] [place] Glucose [Mass/Vol] 89 mg/dL Normal 70-100 [facility] Comment on above: Result Comment: [place] Glucose Reference Range is dependent on time and content of last meal. Glucose of more than 200 mg/dL in a nonstressed, ambulatory subject supports the diagnosis of Diabetes Mellitus. ADA recommended reference range Performed By: #### Devante Shaw #### [address] Potassium [Moles/Vol] 4.0 mmol/L Normal 3.5-5.1 [facility] Comment on above: Performed By: #### Devante Shaw #### [address] Protein [Mass/Vol] 6.1 g/dL Low 6.4-8.9 [facility] Comment on above: Performed By: #### Devante Shaw #### [place] [address] [place] Sodium [Moles/Vol] 137 mmol/L Normal 136-145 [facility] Comment on above: Performed By: #### Devante Shaw #### [place] [address] [place] Urea nitrogen [Mass/Vol] 12 mg/dL Normal 7-25 [facility] Comment on above: Performed By: #### Devante Shaw #### [place] [address] [place] Diff and CBCon 05-30-2023 Band form neutrophils/100 WBC (Bld) 1 % Normal 0-5 [facility] Comment on above: Performed By: #### Devante Shaw #### [place] [address] [place] Basophils/100 WBC (Bld) 0 % Normal 0-2 T [facility] Comment on above: Performed By: #### Devante Shaw #### [place] [address] [place] Eosinophils/100 WBC (Bld) 0 % Low 1-3 [facility] Comment on above: Performed By: #### Devante Shaw #### [address] Erythrocyte distribution width (RBC) [Ratio] 13.8 % Normal 11.9-15.3 [facility] Comment on above: Performed By: #### Devante DELUCA K #### [address] Hematocrit (Bld) [Volume fraction] 30.4 % Low 34.0-46.4 [facility] Comment on above: Performed By: #### Devante DELUCA K #### [address] Hemoglobin (Bld) [Mass/Vol] 10.3 g/dL Low 11.8-15.4 [facility] Comment on above: Performed By: #### Devante Shaw #### [address] Lymphocytes/100 WBC (Bld) 31 % Normal 18-42 [facility] Comment on above: Performed By: #### Devante Shaw #### [address] MCH (RBC) [Entitic mass] 31.2 pg Normal 24.7-34.3 [facility] Comment on above: Performed By: #### Devante Shaw #### [address] MCV (RBC) [Entitic vol] 92.2 fL Normal 80-100 [facility] Comment on above: Performed By: #### Devante Shaw #### [address] Mean Corpuscular HGB Conc 33.8 g/dL Normal 32.0-35.0 [facility] Comment on above: Performed By: #### Devante DELUCA K #### [address] Metamyelocytes 4 % High 0-0 [facility] Comment on above: Performed By: #### Devante Shaw #### [address] Monocytes/100 WBC (Bld) 8 % Normal 2-11 T [facility] Comment on above: Performed By: #### Devante Shaw #### [address] Myelocytes 1 % High 0-0 [facility] Comment on above: Performed By: #### Devante Shaw #### [address] Platelet Estimate Normal Normal Normal [facility] Comment on above: Performed By: #### Devante Shaw #### [address] Platelet mean volume (Bld) [Entitic vol] 6.4 fL Normal 6.3-10.7 [facility] Comment on above: Performed By: #### Devante Shaw #### [address] Platelet Morphology Normal Normal Normal [facility] Comment on above: Result Comment: PERF ORMED BY: [place] [address] PATHOLOGIST TRAVEL COORDINATOR REJI SALAZAR M.D. Performed By: #### Devante Shaw #### [place] [address] [place] Platelets (Bld) [#/Vol] 418 10*3/uL Normal 150-450 [facility] Comment on above: Performed By: #### Devante Shaw #### [place] [address] [place] RBC (Bld) [#/Vol] 3.30 10*6/uL Low 3.60-5.00 [facility] Comment on above: Performed By: #### Devante Shaw #### [address] RBC morphology finding Nom (Bld) Normal Normal Normal [facility] Comment on above: Performed By: #### Devante Shaw #### [address] [place] [address] [place] Segmented neutrophils/100 WBC (Bld) 55 % Normal 50-70 [facility] Comment on above: Performed By: #### R SANDRINE K #### [address] WBC (Bld) [#/Vol] 13.4 10*3/uL High 3.8-11.6 [facility] Comment on above: Performed By: #### R SANDRINE K #### [address] Magnesiumon 05-30-2023 Magnesium [Mass/Vol] 1.8 mg/dL Low 1.9-2.7 [facility] Comment on above: Result Comment: PERF ORMED BY: [place] [address] PATHOLOGIST TRAVEL COORDINATOR REJI SALAZAR M.D. Performed By: #### R SANDRINE K #### [address] Magnesium [Mass/volume] in S marimar or PlasmaOrdered By: Arvind Murdocksein on 05-30-2023 Magnesium [Mass/Vol] 1.8 mg/dL 1.9-2.7 [facility] Vancomycin [Mass/volume] in Serum or Plasma --peakOrdered By: Arvind Murdocksein on 05-30-2023 Vancomycin peak [Mass/Vol] 14.1 ug/mL 20.0-40.0 [facility] Comment on above: Last dose: - GHULAM with Reflexon 05-29-2023 GHULAM with Reflex Negative Normal Negative [facility] Comment on above: Result Comment: Perf ormed at: - [facility] [address] [id number] [employer] Manager: Tyrell Fernandez PhD, Phone: [phone] PERFORMED BY: [place] [address] PATHOLOGIST TRAVEL COORDINATOR REJI SALAZAR M.D. Performed By: #### R SANDRINE K #### [address] [address] [place] Anisocytosis LM Ql (Bld)Orde red By: Venita Amanda on 05-29-2023 Anisocytosis Ql (Bld) Slight Fir [facility] Band form neutrophils/100 WB C Manual cnt (Bld)Ordered By: Venita Amanda on 05-29-2023 Band form neutrophils/100 WBC (Bld) 1 % 0-5 [facility] Basic Metabolic Panelon 040 Anion gap [Moles/Vol] Not performed Normal 6.0-15.0 [facility] Comment on above: Performed By: #### C UBLD, BMP, DIFF CBC, PATH SLIDE REV, LACTIC #### [facility] [address] [place] [address] Calcium [Mass/Vol] 9.0 mg/dL Normal 8.6-10.3 [facility] Comment on above: Performed By: #### C UBLD, BMP, DIFF CBC, PATH SLIDE REV, LACTIC #### [address] Chloride [Moles/Vol] 99 mmol/L Normal 98-107 [facility] Comment on above: Performed By: #### C UBLD, BMP, DIFF CBC, PATH SLIDE REV, LACTIC #### [address] CO2 [Moles/Vol] 24.6 mmol/L Normal 21.0-31.0 [facility] [facility] Comment on above: Performed By: #### C UBLD, BMP, DIFF CBC, PATH SLIDE REV, LACTIC #### [address] Creatinine [Mass/Vol] 0.55 mg/dL Low 0.60-1.20 [facility] Comment on above: Performed By: #### C UBLD, BMP, DIFF CBC, PATH SLIDE REV, LACTIC #### [address] Creatinine Clr Calc Pharmacy 149.21 Normal [facility] Comment on above: Result Comment: PERF ORMED BY: [place] [address] PATHOLOGIST TRAVEL COORDINATOR REIJ SALAZAR M.D. Performed By: #### C UBLD, BMP, DIFF CBC, PATH SLIDE REV, LACTIC #### [facility] [address] GFR/1.73 sq M.predicted MDRD (S/P/Bld) [Vol rate/Area] mL/min/{1.73_m2} Normal [facility] Comment on above: Performed By: #### C UBLD, BMP, DIFF CBC, PATH SLIDE REV, LACTIC #### [facility] [address] Glucose [Mass/Vol] 163 mg/dL High 70-100 [facility] Comment on above: Result Comment: [facility] Glucose Reference Range is dependent on time and content of last meal. Glucose of more than 200 mg/dL in a nonstressed, ambulatory subject supports the diagnosis of Diabetes Mellitus. ADA recommended reference range Performed By: #### C UBLD, BMP, DIFF CBC, PATH SLIDE REV, LACTIC #### [address] Potassium Normal 3.5-5.1 [facility] Comment on above: Result Comment: Spec imen hemolyzed, redraw requested Performed By: #### C UBLD, BMP, DIFF CBC, PATH SLIDE REV, LACTIC #### [address] Sodium [Moles/Vol] 134 mmol/L Low 136-145 [facility] Comment on above: Performed By: #### C UBLD, BMP, DIFF CBC, PATH SLIDE REV, LACTIC #### [facility] [address] Urea nitrogen [Mass/Vol] 11 mg/dL Normal 7-25 [facility] Comment on above: Performed By: #### C UBLD, BMP, DIFF CBC, PATH SLIDE REV, LACTIC #### [address] Basophils Auto (Bld) [#/Vol] Ordered By: Venita Amanda on 05-29-2023 Basophils (Bld) [#/Vol] N/A [facility] Basophils/100 WBC Auto (Bld) Ordered By: Venita Amanda on 05-29-2023 Basophils/100 WBC (Bld) N/A [facility] Blood Cultureon 05-29-2023 Bacteria identified Cx Nom (Bld) NO GROWTH 5 DAYS PERFORMED BY: [place] [address] PATHOLOGIST TRAVEL COORDINATOR REJI SALAZAR M.D. Normal [facility] Comment on above: Performed By: #### R EDRAW K #### [address] Bacteria identified Cx Nom (Bld) NO GROWTH 5 DAYS PERFORMED BY: [place] [address] PATHOLOGIST TRAVEL COORDINATOR REJI SALAZAR M.D. Normal [facility] Comment on above: Performed By: #### C UBLD, BMP, DIFF CBC, PATH SLIDE REV, LACTIC #### [address] facial bones w conon CT facial bones w con [facility] Main [place] [address] [place] [address] CT Scan Report Signed Patient: Migdalia Card MR#: [id number] : 1985 Acct:[id number] Age/Sex: 37 / F ADM Date: 05/29/23 Loc: ER Room: Type: [facility] ER Attending Dr: Copies to: Venita Amanda APRN Ordering Provider: Venita Amanda APRN Date of Service: 05/29/23 CT/CT facial bones w con: increased facial swelling. r/o abscess MAXILLOFACIAL CT WITHOUT CONTRAST: CLINICAL HISTORY: Facial swelling, cellulitis. COMPARISON: None TECHNIQUE: Spiral axial unenhanced images were obtained through the facial bones. Coronal and sagittal reconstructions were also reviewed. This CT exam was performed using one or more following dose reduction techniques: Automated exposure control, adjustment of the mA and/or kV according to patient size, or use of iterative reconstruction technique. FINDINGS: No facial bone fracture. No bony destruction. No nasal bone fracture. No mandibular fracture. No orbital fracture. Mild bilateral maxillary sinus disease. Mild ethmoid sinus disease. No air-fluid levels. Intraorbital contents appear unremarkable. Mild periorbital soft tissue swelling. No fluid collection to suggest abscess. This appears to extend into the cheek regions. Nasopharynx appears unremarkable. Prominent level [address]/CT facial bones w con IMPRESSION: NO EVIDENCE OF FACIAL BONE FRACTURE. BILATERAL PERIORBITAL SOFT TISSUE SWELLING IS SEEN EXTENDING INTO THE CHEEK REGION WITHOUT EVIDENCE OF ABSCESS. THERE ARE PRESUMED REACTIVE/PROMINENT BILATERAL LEVEL 2 LYMPH NODES. MILD ETHMOID AND MAXILLARY SINUS DISEASE. Impression dictated by: Rickie Smith Jr., DTienOTien05/29/2023 2:48 PM Dictation Location: [place] [address] Transcribed By: [facility] 05/29/23 1448 Dictated By: Rickie Smith Jr, DO 05/29/23 1443 Signed By: 05/29/23 1448 Normal [facility] Calcium [Mass/volume] in Ser um or PlasmaOrdered By: Venita Amanda on 05-29-2023 Calcium [Mass/Vol] 9.0 mg/dL 8.6-10.3 [facility] Carbon dioxide, total [Moles /volume] in Serum or PlasmaOrdered By: Venita Amanda on 05-29-2023 CO2 [Moles/Vol] 24.6 mmol/L 21.0-31.0 [facility] Chloride [Moles/volume] in S marimar or PlasmaOrdered By: Venita Amanda on 05-29-2023 Chloride [Moles/Vol] 99 mmol/L 98-107 [facility] Creatinine [Mass/volume] in Serum or PlasmaOrdered By: Venita Amanda on 05-29-2023 Creatinine [Mass/Vol] 0.55 mg/dL 0.60-1.20 [facility] Diff and CBCon 05-29-2023 Anisocytosis Ql (Bld) Slight Normal [facility] Comment on above: Performed By: #### C UBLD, BMP, DIFF CBC, PATH SLIDE REV, LACTIC #### [facility] [address] [place] [address] Band form neutrophils/100 WBC (Bld) 1 % Normal 0-5 [facility] Comment on above: Performed By: #### C UBLD, BMP, DIFF CBC, PATH SLIDE REV, LACTIC #### [address] Erythrocyte distribution width (RBC) [Ratio] 13.7 % Normal 11.9-15.3 [facility] Comment on above: Performed By: #### C UBLD, BMP, DIFF CBC, PATH SLIDE REV, LACTIC #### [address] Hematocrit (Bld) [Volume fraction] 35.6 % Normal 34.0-46.4 [facility] Comment on above: Performed By: #### C UBLD, BMP, DIFF CBC, PATH SLIDE REV, LACTIC #### [address] Hemoglobin (Bld) [Mass/Vol] 11.8 g/dL Normal 11.8-15.4 [facility] Comment on above: Performed By: #### C UBLD, BMP, DIFF CBC, PATH SLIDE REV, LACTIC #### [address] Hypochromasia Slight Normal [facility] Comment on above: Performed By: #### C UBLD, BMP, DIFF CBC, PATH SLIDE REV, LACTIC #### [address] Lymphocytes/100 WBC (Bld) 23 % Normal 18-42 [facility] Comment on above: Performed By: #### C UBLD, BMP, DIFF CBC, PATH SLIDE REV, LACTIC #### [address] MCH (RBC) [Entitic mass] 31.0 pg Normal 24.7-34.3 [facility] Comment on above: Performed By: #### C UBLD, BMP, DIFF CBC, PATH SLIDE REV, LACTIC #### [address] MCV (RBC) [Entitic vol] 93.2 fL Normal 80-100 [facility] Comment on above: Performed By: #### C UBLD, BMP, DIFF CBC, PATH SLIDE REV, LACTIC #### [address] Mean Corpuscular HGB Conc 33.2 g/dL Normal 32.0-35.0 [facility] Comment on above: Performed By: #### C UBLD, BMP, DIFF CBC, PATH SLIDE REV, LACTIC #### [address] Metamyelocytes 4 % High 0-0 [facility] Comment on above: Performed By: #### C UBLD, BMP, DIFF CBC, PATH SLIDE REV, LACTIC #### [address] Monocytes/100 WBC (Bld) 18.14 % Normal 0.00-20.00 [facility] Comment on above: Performed By: #### C UBLD, BMP, DIFF CBC, PATH SLIDE REV, LACTIC #### [address] Monocytes/100 WBC (Bld) 1 % Low 2-11 [facility] Comment on above: Performed By: #### C UBLD, BMP, DIFF CBC, PATH SLIDE REV, LACTIC #### [address] Myelocytes 12 % High 0-0 [facility] Comment on above: Performed By: #### C UBLD, BMP, DIFF CBC, PATH SLIDE REV, LACTIC #### [address] Platelet Estimate Normal Normal Normal The [facility] Comment on above: Performed By: #### C UBLD, BMP, DIFF CBC, PATH SLIDE REV, LACTIC #### [address] Platelet mean volume (Bld) [Entitic vol] 6.4 fL Normal 6.3-10.7 [facility] Comment on above: Performed By: #### C UBLD, BMP, DIFF CBC, PATH SLIDE REV, LACTIC #### [address] Platelet Morphology Normal Normal Normal The [facility] Comment on above: Result Comment: PERF ORMED BY: [place] [address] PATHOLOGIST TRAVEL COORDINATOR REJI SALAZAR M.D. Performed By: #### C UBLD, BMP, DIFF CBC, PATH SLIDE REV, LACTIC #### [address] Platelets (Bld) [#/Vol] 403 10*3/uL Normal 150-450 [facility] Comment on above: Performed By: #### C UBLD, BMP, DIFF CBC, PATH SLIDE REV, LACTIC #### [address] Polychromasia Slight Normal [facility] Comment on above: Performed By: #### C UBLD, BMP, DIFF CBC, PATH SLIDE REV, LACTIC #### [address] RBC (Bld) [#/Vol] 3.82 10*6/uL Normal 3.60-5.00 [facility] Comment on above: Performed By: #### C UBLD, BMP, DIFF CBC, PATH SLIDE REV, LACTIC #### [address] Segmented neutrophils/100 WBC (Bld) 59 % Normal 50-70 [facility] Comment on above: Performed By: #### C UBLD, BMP, DIFF CBC, PATH SLIDE REV, LACTIC #### [address] WBC (Bld) [#/Vol] 8.7 10*3/uL Normal 3.8-11.6 [facility] Comment on above: Performed By: #### C UBLD, BMP, DIFF CBC, PATH SLIDE REV, LACTIC #### [place] [address] [place] Eosinophils Auto (Bld) [#/Vo l]Ordered By: Venita Amanda on 05-29-2023 Eosinophils (Bld) [#/Vol] N/A [facility] Eosinophils/100 WBC Auto (Bl d)Ordered By: Venita Amanda on 05-29-2023 Eosinophils/100 WBC (Bld) N/A [facility] Erythrocyte distribution wid th Auto (RBC) [Ratio]Ordered By: Venita Amanda on 05-29-2023 Erythrocyte distribution width (RBC) [Ratio] 13.7 % 11.9-15.3 [facility] Glucose [Mass/volume] in Ser um or PlasmaOrdered By: Venita Amanda on 05-29-2023 Glucose [Mass/Vol] 163 mg/dL 70-100 [facility] Comment on above: ADA recommended refe rence rangeRandom Glucose Reference Range is dependent on time and content of last meal. Glucose of more than 200 mg/dL in a nonstressed, ambulatory subject supports the diagnosis of Diabetes Mellitus. Hematocrit Auto (Bld) [Volum e fraction]Ordered By: Venita Amanda on 05-29-2023 Hematocrit (Bld) [Volume fraction] 35.6 % 34.0-46.4 [facility] Hemoglobin [Mass/volume] in BloodOrdered By: Venita Amanda on 05-29-2023 Hemoglobin (Bld) [Mass/Vol] 11.8 g/dL 11.8-15.4 [facility] Hypochromia LM Ql (Bld)Order ed By: Venita Amanda on 05-29-2023 Hypochromia Ql (Bld) Slight [facility] Carlos 05-29-2023 L Specimen: [id number] Received: 05/29/23 Status: SOURuben Samuels Num: [id number] Spec Type: Impression Subm Dr: Venita Amanda APRN Tissues: PATHPER Procedures: PATHREVIEW Age/ Patient Sex Location Account Attending Physician Migdalia Card 37/F 4N [id number] Rico Romero DO SPEC NUM: [id number] RECD: 05/29/23 STATUS: LYDIA SAMUELS NUM: [id number] BRUNO: 05/29/23- SUBM DR: Venita Amanda APRN ENTERED: 05/29/[address] [facility] [address]: MYLES STAFF SPEC TYPE: Impression DEPT: [place] ENTERED BY: [id number] RECV BY: [id number] ORDERED: PATHREVIEW ORDERED: PATHREVIEW Pathologist Review Abnormal CBC for peripheral blood smear review: -Borderline anemia of the normocytic type, including mild anisocytosis with occasional microcytes and at least rare polychromatophils -Occasional immature granulocytes without blast or granulocytic dysplasia identified -Mildly suggested monocytopenia -Majority of the platelets are of the small sizes Comment: -Mildly left shifted neutrophilic granulocytes are compatible with reactive change, including systemic inflammation and/or the stated history of the cellulitis of the face, to be supported by elevated ESR and C-reactive protein -Borderline anemia may suggest anemia of chronic disease, and possibly relatively iron deficiency in reproductive age of the young adult female patient CPT: Here 5060 CBC Date Time Test Result Flag (u) Normal Range 05/29/23 1336 WBC 8.7 3.8-11.6 X10E3/uL RBC 3.82 3.60-5.00 X10E6/uL HGB 11.8 11.8-15.4 g/dL HCT 35.6 34.0-46.4 % Specimen: [id number] Received: 05/29/23 Status: LYDIA Samuels Num: [id number] Spec Type: Impression Subm Dr: Venita Amanda APRN Tissues: PATHPER Procedures: PATHREVIEW Patient: Migdalia Card [id number] (Continued) Specimen: [id number] Received: 05/29/23 (Continued) LE (Continued) Signed (signature on file) Sharonda Mack MD 06/06/23 0920 Specimen: [id number] Received: 05/29/23 Status: LYDIA Samuels Num: [id number] Spec Type: Impression Subm Dr: Venita Amanda APRN Tissues: PATHPER Procedures: PATHREVIEW Patient: Migdalia Card [id number] (Continued) Specimen: [id number] Received: 05/29/23 (Continued) CBC (Continued) MCV 93.2 80-100 fl MCH 31.0 24.7-34.3 pg MCHC 33.2 32.0-35.0 g/dL RDW 13.7 11.9-15.3 % Plt 403 150-450 x10E3/uL MPV 6.4 6.3-10.7 fl Seg 59 50-70 % Band 1 0-5 % Lymph 23 18-42 % [place] 1 L 2-11 % [place] 4 H 0-0 % Myelo 12 H 0-0 % Polychrom Slight Hypochrom Slight [place] Slight Plt Est Normal Normal Plt Morphology Normal Normal Specimen: [id number] Received: 05/29/23 Status: LYDIA Samuels Num: [id number] Spec Type: Impression Subm Dr: Venita Amanda APRN Tissues: PATHPER Procedures: PATHREVIEW Patient: GodwinMigdalia E [id number] (Continued) Signed (signature on file) Chin-Blu Mack MD 06/06/23 0920 Normal [facility] Lactate [Moles/volume] in Se rum or PlasmaOrdered By: Venita Amanda on 05-29-2023 Lactate [Moles/Vol] 3.0 mmol/L 0.5-2.2 [facility] Comment on above: Critical valueresult calledat 1423 on 05/29/23--- 05/29/231423 ---Lactic previously reported as: 3.0 *H mmol/L Lactic Acidon 05-29-2023 Lactate [Moles/Vol] 3.0 mmol/L Off scale high 0.5-2.2 T [facility] Comment on above: Result Comment: Crit ical value result called at 1423 on 05/29/23 --- 05/29/231423 --- Lactic previously reported as: 3.0 *H mmol/L PERFORMED BY: [place] [address] PATHOLOGIST TRAVEL COORDINATOR REJI SALAZAR M.D. Performed By: #### C UBLD, BMP, DIFF CBC, PATH SLIDE REV, LACTIC #### [facility] [address] Lactic Acid Reflexon 024 Lactic Acid Reflex 2.9 mmol/L Off scale high 0.5-2.2 Th e [facility] Comment on above: Result Comment: Crit ical Result : Called to and read back by: RENATO RODRIGUEZ at: 05/29/2023 18:39:12 by:ZULEIKA PERFORMED BY: [place] [address] PATHOLOGIST TRAVEL COORDINATOR REJI SALAZAR M.D. Performed By: #### R SANDRINE Shaw #### [facility] [address] Leukocytes [#/volume] correc kristian for nucleated erythrocytes in Blood by Automated counOrdered By: Venita Amanda on 05-29-2023 WBC corrected for nucl RBC Auto (Bld) [#/Vol] 8.7 10*3/uL 3.8-11.6 [facility] Lymphocytes Auto (Bld) [#/Vo l]Ordered By: Venita Amanda on 05-29-2023 Lymphocytes (Bld) [#/Vol] N/A [facility] Lymphocytes/100 WBC Auto (Bl d)Ordered By: Venita Amanda on 05-29-2023 Lymphocytes/100 WBC (Bld) N/A [facility] Lymphocytes/100 WBC Manual c nt (Bld)Ordered By: Venita Amanda on 05-29-2023 Lymphocytes/100 WBC (Bld) 23 % 18-42 [facility] MCH Auto (RBC) [Entitic mass ]Ordered By: Venita Amanda on 05-29-2023 MCH (RBC) [Entitic mass] 31.0 pg 24.7-34.3 [facility] MCHC Auto (RBC) [Mass/Vol]Or dered By: Venita Amanda on 05-29-2023 MCHC (RBC) [Mass/Vol] 33.2 g/dL 32.0-35.0 [facility] MCV Auto (RBC) [Entitic vol] Ordered By: Venita Amanda on 05-29-2023 MCV (RBC) [Entitic vol] 93.2 fL 80-100 [facility] Metamyelocytes/100 WBC Manua l cnt (Bld)Ordered By: Venita Amanda on 05-29-2023 Metamyelocytes/100 WBC (Bld) 4 % 0-0 [facility] Monocyte distribution width [Entitic volume] in Blood by AutomatedOrdered By: Venita Amanda on 05-29-2023 Monocyte distribution width Auto (Bld) [Entitic vol] 18.14 % 0.00-20.00 [facility] Monocytes Auto (Bld) [#/Vol] Ordered By: Venita Alessandronayane on 05-29-2023 Monocytes (Bld) [#/Vol] N/A [facility] Monocytes/100 WBC Auto (Bld) Ordered By: Venita Alessandrofle on 05-29-2023 Monocytes/100 WBC (Bld) N/A [facility] Monocytes/100 WBC Manual cnt (Bld)Ordered By: Venita Alessandrofle on 05-29-2023 Monocytes/100 WBC (Bld) 1 % 2-11 [facility] Myelocytes/100 WBC Manual cn t (Bld)Ordered By: Venita Alessandronayane on 05-29-2023 Myelocytes/100 WBC (Bld) 12 % 0-0 [facility] Neutrophils Auto (Bld) [#/Vo l][facility] Neutrophils (Bld) [#/Vol] N/A [facility] Neutrophils/100 WBC Auto (Bl d)Ordered By: Venita Alessandrofle on 05-29-2023 Neutrophils/100 WBC (Bld) N/A [facility] No Panel InformationOrdered By: Venita Amanda on 05-29-2023 Estimated GFR (CKD-EPI) > 60.0 mL/Min [facility] Creatinine Clearance (Chem 149.21 [facility] Slides for Pathologist Review Ordered path review [facility] Nucleated erythrocytes [Pres ence] in Blood by Automated countOrdered By: Venita Amanda on 05-29-2023 Nucleated RBC Auto Ql (Bld) N/A [facility] Pathologist Slide Reviewon 0 05-29-2023 Pathologist Slide Review Ordered Path Review Normal [facility] Comment on above: Result Comment: PERF ORMED BY: [place] [address] PATHOLOGIST TRAVEL COORDINATOR REJI SALAZAR M.D. Performed By: #### C UBLD, BMP, DIFF CBC, PATH SLIDE REV, LACTIC #### [address] Platelet adequacy [Presence] in Blood by Light microscopyOrdered By: Venita Amanda on 05-29-2023 Platelets LM Ql (Bld) Normal Normal [facility] Platelet mean volume Auto (B ld) [Entitic vol]Ordered By: Venita Amanda on 05-29-2023 Platelet mean volume (Bld) [Entitic vol] 6.4 fL 6.3-10.7 [facility] Platelet morphology finding [Identifier] in BloodOrdered By: Venita Amanda on 05-29-2023 Platelet morphology finding Nom (Bld) Normal Normal [facility] Platelets Auto (Bld) [#/Vol] Ordered By: Venita Amanda on 05-29-2023 Platelets (Bld) [#/Vol] 403 10*3/uL 150-450 [facility] Polychromasia [Presence] in Blood by Light microscopyOrdered By: Venita Amanda on 05-29-2023 Polychromasia LM Ql (Bld) Slight [facility] Potassium [Moles/volume] in Serum or PlasmaOrdered By: Venita Amanda on 05-29-2023 Potassium [Moles/Vol] 4.0 mmol/L 3.5-5.1 [facility] RBC Auto (Bld) [#/Vol]Ordere d By: Venita Amanda on 05-29-2023 RBC (Bld) [#/Vol] 3.82 10*6/uL 3.60-5.00 [facility] RBC morphologyOrdered By: Fredrick Amanda on 05-29-2023 RBC morphology finding Nom (Bld) N/A [facility] Redraw Potassiumon Potassium [Moles/Vol] 4.0 mmol/L Normal 3.5-5.1 [facility] Comment on above: Order Comment: PREVI OUS SAMPLE HEMOLYZED Result Comment: PERF ORMED BY: [place] [address] PATHOLOGIST TRAVEL COORDINATOR REJI SALAZAR M.D. Performed By: #### R EDRAW K #### [place] [address] [place] Segmented neutrophils/100 WB C Manual cnt (Bld)Ordered By: Venita Amanda on 05-29-2023 Segmented neutrophils/100 WBC (Bld) 59 % 50-70 [facility] Serum or plasma anion gap de terminationOrdered By: Venita Amanda on 05-29-2023 Anion gap [Moles/Vol] TNP Fir [facility] Comment on above: Test not performed Serum or plasma free cefurox jeni measurement (mass/volume)Ordered By: Arvind Regan on 05-29-2023 Cefuroxime free [Mass/Vol] Negative Negative [facility] Comment on above: Performed at: [place] [id number] Director: Tyrell Fernandez PhD, Phone: [phone] Sodium [Moles/volume] in Ser um or PlasmaOrdered By: Venita Amanda on 05-29-2023 Sodium [Moles/Vol] 134 mmol/L 136-145 [facility] Urea nitrogen [Mass/volume] in Serum or PlasmaOrdered By: Venita Amanda on 05-29-2023 Urea nitrogen [Mass/Vol] 11 mg/dL 7-25 [facility] WBC Auto (Bld) [#/Vol]Ordere d By: Venita Amanda on 05-29-2023 WBC (Bld) [#/Vol] 8.7 10*3/uL 3.8-11.6 [facility] CarbamazepineOrdered By: SYS TEM SYSTEM on 04-13-2023 Carbamaz Lvl 6.9 microgram/mL Normal 4.0-12.0 [facility] Comment on above: Performed By: #### 2 [id number], [id number] #### [facility] [address] [place] [address] Physician Orderon 04-13-2023 Physician Order [id number] 0#1.00TIFF Normal [facility] SodiumOrdered By: SYSTEM SYS TEM on 04-13-2023 Sodium [Moles/Vol] 134 mmol/L Low 135-145 [facility] Comment on above: Performed By: #### 2 [id number], [id number] #### [facility] [address] [place] [address] CHEMISTRYOrdered By: SYSTEM SYSTEM on 02-23-2023 Carbamaz Lvl 8.7 microgram/mL Normal 4.0 - 12.0 mcg/mL Rem[facility] Chem Sodium [Moles/Vol] 123 mmol/L Low 135 - 145 mmol/L [facility] Carbamazepineon 02-23-2023 Carbamaz Lvl 8.7 microgram/mL Normal 4.0-12.0 [facility] Comment on above: Performed By: #### 2 [id number], [id number] #### [facility] [address] [place] [address] Physician Orderon 02-23-2023 Physician Order [id number] 6#1.00TIFF Normal [facility] Sodiumon 02-23-2023 Sodium [Moles/Vol] 123 mmol/L Low 135-145 [facility] Comment on above: Performed By: #### 2 [id number], [id number] #### [facility] [address] [place] [address] Progress Noteson 06-10-2022 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 Next Visit: OR ----- Signed on May at 4:11:20 PM ----- ----- Provider: Satinder Obrien DDS -- Clinic: [place] ----- Normal [facility] (CLEAN/CATCH) PROPERTIES SUPERVISOR/MICRO I F IND.on 05-17-2022 Bilirubin Ql (U) Negative Normal NEGATIVE [facility] Comment on above: Performed By: #### U ACSIND #### [facility] [address] [place] [address] Dr. Pio Mack Clarity (U) CLEAR Normal CLEAR [facility] Comment on above: Performed By: #### U ACSIND #### [facility] [address] [place] [address] Dr. Pio Mack Color (U) LT. YELLOW Normal YELLOW [facility] Comment on above: Performed By: #### U ACSIND #### [facility] [address] [place] [address] [address] Pio Mack Glucose Ql (U) Negative Normal NEGATIVE [facility] Comment on above: Performed By: #### U ACSIND #### [facility] [address] [place] [address] [address] Pio Mack Hemoglobin Ql (U) Negative Normal NEGATIVE [facility] Comment on above: Performed By: #### U ACSIND #### [facility] [address] [address] [address] Pio Mack Ketones Ql (U) Negative Normal NEGATIVE [facility] Comment on above: Performed By: #### U ACSIND #### [facility] [address] [address] [address] Pio Mack LEUKOCYTES Negative Normal NEGATIVE [facility] Comment on above: Performed By: #### U ACSIND #### [facility] [address] [place] [address] Dr. Pio Mack Nitrite Ql (U) Negative Normal NEGATIVE [facility] Comment on above: Performed By: #### U ACSIND #### [facility] [address] [place] [address] Dr. Pio Mack pH (U) 7.5 [pH] Normal 5-9 [facility] Comment on above: Performed By: #### U ACSIND #### [facility] [address] [place] [address] Dr. Pio Mack SPEC GRAVITY 1.010 Normal 1.005-<=1.02 5 [facility] Comment on above: Performed By: #### U ACSIND #### [facility] [address] [place] [address] Dr. Pio Mack UA PROTEIN Negative Normal NEGATIVE/ TRACE [facility] Comment on above: Performed By: #### U ACSIND #### [facility] [address] [place] [address] Dr. Pio Mack UR MICRO IND NOT INDICATED Normal [facility] Comment on above: Performed By: #### U ACSIND #### [facility] [address] [place] [address] Dr. Pio Mack Urobilinogen Qn (U) 0.2 {Polina'U}/dL Normal 0.2 - 1. 0 [facility] Comment on above: Performed By: #### U ACSIND #### [facility] [address] [place] [address] Dr. Pio Mack PAP ACOG PANEL 2: 30 to 65on 05-06-2022 . . Normal [facility] Comment on above: Result Comment: Perf ormed at: WB Performed By: #### [id number] #### [facility] [address] [place] [address] Dr. Pio Mack Age Gdln ACOG Testing 30-65 Normal [facility] Comment on above: Performed By: #### [id number] #### [facility] [address] [place] [address] Dr. Pio Mack DIAGNOSIS: Comment Normal [facility] Comment on above: Result Comment: NEGA TIVE FOR INTRAEPITHELIAL LESION OR MALIGNANCY. Performed at: WB Performed By: #### [id number] #### [facility] [address] [place] [address] Dr. Pio Mack HPV Aptima Negative Normal Negative [facility] Comment on above: Result Comment: This nucleic acid amplification test detects fourteen high-risk HPV types (16,18,31,33,35,39,45,51,52,56,58,59,66,68) without differentiation. Performed at: =G Performed By: #### [id number] #### [facility] [address] [address] [address] Pio Mack HPV Genotype Reflex Comment Normal [facility] Comment on above: Result Comment: Crit eria not met, HPV Genotype not performed. Performed at: WB Performed By: #### [id number] #### [facility] [address] [address] [address] Pio Mack Methodology: Comment Normal [facility] Comment on above: Result Comment: This liquid based ThinPrep(R) pap test was screened with the use of an image guided system. Performed at: WB Performed By: #### [id number] #### [facility] [address] [place] [address] Dr. Pio Mack Note: Comment Normal [facility] Comment on above: Result Comment: The Pap smear is a screening test designed to aid in the detection of premalignant and malignant conditions of the uterine cervix. It is not a diagnostic procedure and should not be used as the sole means of detecting cervical cancer. Both false-positive and false-negative reports do occur. . Performed at: WB Performed By: #### [id number] #### [facility] [address] [place] [address] Dr. Pio Mack Performed by: Comment Normal [facility] Comment on above: Result Comment: Cind daksha Poe, Corporate Driver (ASCP) Performed at: WB Performed By: #### [id number] #### [facility] [address] [place] [address] Dr. Pio Mack Specimen adequacy: Comment Normal [facility] Comment on above: Result Comment: Sati sfactory for evaluation. Endocervical and/or squamous metaplastic cells (endocervical component) are present. Performed at: WB Performed By: #### [id number] #### [facility] [address] [address] [address] Pio Mcak Vital Signs Date Time Vital Sign Value Performing Clinician Dianelys lorenz 06-01-2023 12:00-0400 Body temperature 97.3 [degF] SUSTAINABILITY DIRECTOR Venita Saffle Work Phone: [facility] 06-01-2023 12:00-0400 Diastolic blood pressure 81 mm[Hg] SUSTAINABILITY DIRECTOR Venita Saffle Work Phone: [facility] 06-01-2023 12:00-0400 Heart rate 82 /min SUSTAINABILITY DIRECTOR Venita Saffle Work Phone: [facility] 06-01-2023 12:00-0400 Respiratory rate 18 /min SUSTAINABILITY DIRECTOR Venita Saffle Work Phone: [facility] 06-01-2023 12:00-0400 SaO2% (BldA) [Mass fraction] 98 % SUSTAINABILITY DIRECTOR Venita Saffle Work Phone: [facility] 06-01-2023 12:00-0400 Systolic blood pressure 137 mm[Hg] SUSTAINABILITY DIRECTOR Venita Saffle Work Phone: [facility] 06-01-2023 06:00-0400 Body weight 82 kg SUSTAINABILITY DIRECTOR Venita Saffle Work Phone: [facility] 05-30-2023 12:46-0400 Body height 165.1 cm SUSTAINABILITY DIRECTOR Venita Saffle Work Phone: [facility] 05-29-2023 16:36-0400 Diastolic blood pressure 98 mm[Hg] [facility] 05-29-2023 16:36-0400 Systolic blood pressure 148 mm[Hg] [facility] 05-29-2023 15:48-0400 Body temperature 98.1 [degF] [facility] 05-29-2023 15:48-0400 Heart rate 90 /min [facility] 05-29-2023 15:48-0400 Respiratory rate 18 /min [facility] 05-29-2023 15:48-0400 SaO2% (BldA) [Mass fraction] 96 % [facility] 05-29-2023 13:05-0400 Body height 165.1 cm [facility] 05-29-2023 13:05-0400 Body weight 81.6 kg [facility] Encounters Encounter Date Encounter Type Care Provider Facility Start: 06-09-2023 ambulatory [facility] Start: 06-07-2023 End: 06-07-2023 ambulatory KAMINI D DOLCE Not Available Start: 05-30-2023 End: 06-01-2023 Evaluation and management of inpatient Yazid Jass Facility:[facility] Start: 05-30-2023 End: 06-01-2023 Evaluation and management of inpatient SUSTAINABILITY DIRECTOR Venita Amanda Work Phone: [facility] Work Phone: Start: 05-29-2023 Non-patient / Non-visit [facility] Work Phone: Start: 05-29-2023 Evaluation and management of inpatient [facility] Work Phone: Start: 05-29-2023 observation encounter NON STAFF [facility] Work Phone: Start: 05-25-2023 Orders Only Rickey perez MD Work Phone: [facility] Comment on above: Hyponatremia (Primar y Dx) Start: 05-04-2023 End: 05-04-2023 ambulatory KAMINI D DOLCE Not Available Start: 04-13-2023 End: 04-14-2023 ambulatory LIO MUNROE Facility:[facility] Start: 04-13-2023 End: 04-13-2023 Lab Drop off LIO MUNROE [facility] Start: 02-23-2023 End: 02-23-2023 Lab Drop off LIO MUNROE [facility] Start: 02-23-2023 End: 02-24-2023 ambulatory LIO MUNROE Facility:[facility] Start: 07-21-[address] LIO MUNROE Fac ility:[facility] Start: 06-10-2022 End: 06-14-2022 ambulatory UNKNOWN PROVIDER Facility:[facility] Start: 06-10-2022 End: 06-14-2022 Patient encounter procedure Scarlett Albarran DDS Work Phone: [facility] Start: 05-17-2022 End: 05-17-[address] LIO MUNROE Facility: Start: 04-28-2022 End: 04-28-[address] SONAL CARRERO . Facility: Start: 04-06-2022 Letter encounter [facility] Start: 05-08-2018 End: 05-12-2018 Patient encounter procedure PROVIDER NOT IN SYSTEM [facility] Procedures Date Procedure Procedure Detail Performing Clinician Start: 05-29-2023 CT of facial bones w ith contrast Plan of Treatment Date Care Activity Detail Author Start: 2036 Shingles (RZV) Vacci ne (1 of 2) Shingles (RZV) Vaccine (1 of 2) [facility] Start: 11-11-2029 Tetanus vaccination Tetanus (T d or Tdap) Booster [facility] Start: 10-23-2023 Influenza vaccination Influenza Vacc ine [facility] Start: 07-28-2023 End: 07-28-2023 Patient encounter procedure 07/28/2023 2:30 PM EDT Office Visit [facility] [address] [place] [address] Rickey Cade MD [address] [place] [address] [facility] Start: 06-09-2023 End: 06-09-2023 Patient encounter procedure 06/09/2023 10:00 AM EDT Office Visit [facility] [address] [place] [address] [facility] Start: 06-08-2023 [facility] Start: 06-07-2023 [facility] Start: 06-06-2023 [facility] Start: 06-05-2023 [facility] Start: 06-04-2023 [facility] Start: 06-03-2023 [facility] Start: 06-02-2023 [facility] Start: 06-01-2023 End: 06-01-2023 [facility] Start: 05-31-2023 [facility] Start: 05-30-2023 Comprehensive metabo lic 2000 panel - Serum or Plasma [facility] Start: 05-30-2023 End: 05-30-2023 [facility] Start: 05-29-2023 Hospital admission [facility] Start: 05-29-2023 [facility] Start: 05-29-2023 Bacteria identified in Blood by Culture [facility] Start: 05-29-2023 Blood culture for bacteria, including anaerobic screen Blood Culture [facility] Start: 05-29-2023 [facility] Start: 05-03-2022 End: 05-03-2022 Patient encounter procedure 05/03/2022 Procedure Visit Dentistry CyndygiacomotobiaslindaHolli, DDS [address] [place] [address] [facility] Start: 11-21-2021 Influenza vaccination Influenza Vacc ine (#1) [facility] Start: 02-11-2021 COVID-19 Vaccine (4 - Booster for Pfizer series) COVID-19 Vaccine (4 - Booster for Pfizer series) [facility] Start: 04-21-2008 Annual wellness visit Annual W ellness Visit (G0438) [facility] Start: 07-05-2007 Screening for malign ant neoplasm of cervix [facility] Sm[facility] Start: 2005 DTaP,Tdap and Td Vaccines (1 - Tdap) DTaP,Tdap and Td Vaccines (1 - Tdap) [facility] Start: 2004 Adult BMI Screening Adult BMI Screen ing [facility] Start: 2004 Hepatitis C screening Hepatitis C An tibody [facility] Start: 2001 HIV screening HIV Test [facility] Start: 1998 Depression Screening Depression Scre ening [facility] Start: 1998 Tobacco Screening Tobacco Screening [facility] Start: 1986 Screening for malign ant neoplasm of breast Mammography shared decision making (35 through 39 years) [facility] End: 05-24-2024 Basic metabolic 2000 panel - Serum or Plasma Basic Metabolic Panel Lab Routine Hyponatremia 1 Occurrences starting 05/25/2023 until 05/24/2024 [facility] Work Phone: Comment on above: 1 Occurrences starti ng 05/25/2023 until 05/24/2024 End: 05-24-2024 CBC panel - Blood by Automated count CBC without diff Lab Routine Hyponatremia 1 Occurrences starting 05/25/2023 until 05/24/2024 [facility] Comment on above: 1 Occurrences starti ng 05/25/2023 until 05/24/2024 Cefuroxime free [Mass/volume] in Serum or Plasma [facility] End: 05-24-2024 Magnesium [Mass/volume] in Serum or Plasma Magnesium Lab Routine Hyponatremia 1 Occurrences starting 05/25/2023 until 05/24/2024 [facility] Comment on above: 1 Occurrences starti ng 05/25/2023 until 05/24/2024 Patient referral [facility] Work Phone: End: 05-24-2024 Phosphate [Mass/volume] in Serum or Plasma Phosphorus Lab Routine Hyponatremia 1 Occurrences starting 05/25/2023 until 05/24/2024 [facility] Comment on above: 1 Occurrences starti ng 05/25/2023 until 05/24/2024 End: 05-24-2024 Protein creat ratio Protein creat ratio Lab Routine Hyponatremia 1 Occurrences starting 05/25/2023 until 05/24/2024 [facility] Comment on above: 1 Occurrences starti ng 05/25/2023 until 05/24/2024 End: 05-24-2024 Urinalysis Urinalysis Lab Routine Hyponatremia 1 Occurrences starting 05/25/2023 until 05/24/2024 [facility] Comment on above: 1 Occurrences starti ng 05/25/2023 until 05/24/2024 Immunizations Immunization Date Immunization Notes Care Provider Susi hawkins 12-17-2020 influenza, injectabl e, quadrivalent, preservative free [facility] 12-17-2020 influenza virus vacc ine, unspecified formulation [facility] 03-25-2020 Pfizer (12+ yrs) [facility] S-COV-2 (COVID-19) vaccine, mRNA, spike protein, LNP, pres. free, 30 mcg/0.3mL dose (BAP=452) [facility] 03-04-2020 Pfizer (12+ yrs) KAE S-COV-2 (COVID-19) vaccine, mRNA, spike protein, LNP, pres. free, 30 mcg/0.3mL dose (QTJ=567) [facility] 11-28-2019 influenza, injectabl e, quadrivalent, preservative free [facility] 11-12-2019 tetanus toxoid, redu naila diphtheria toxoid, and acellular pertussis vaccine, adsorbed [facility] 11-30-2017 influenza, injectabl e, quadrivalent, preservative free [facility] 12-15-2016 influenza, injectabl e, quadrivalent, contains preservative [facility] 12-12-2014 influenza, injectabl e, quadrivalent, preservative free [facility] 11-10-2010 influenza, seasonal, injectable [facility] 07-07-2006 meningococcal polysa ccharide (groups A, C, Y and W-135) diphtheria toxoid conjugate vaccine (MCV4P) [facility] 11-29-2001 TD(adult) unspecified formulation [facility] 05-04-2001 hepatitis B vaccine, pediatric or pediatric/adolescent dosage [facility] 11-10-2000 hepatitis B vaccine, pediatric or pediatric/adolescent dosage [facility] 10-10-2000 hepatitis B vaccine, pediatric or pediatric/adolescent dosage [facility] 05-30-1998 measles, mumps and r ubella virus vaccine [facility] 12-03-1991 TD(adult) unspecified formulation [facility] 12-03-1991 trivalent poliovirus [facility], live, [facility] 09-06-1988 diphtheria, tetanus toxoids and pertussis vaccine [facility] 09-06-1988 trivalent poliovirus vaccine, live, oral [facility] 01-23-1988 haemophilus influenz ae type b vaccine, conjugate unspecified formulation [facility] 04-30-1987 measles, mumps and r ubella virus vaccine [facility] 1986 diphtheria, tetanus toxoids and pertussis vaccine [facility] 1986 diphtheria, tetanus toxoids and pertussis vaccine [facility] 1986 trivalent poliovirus vaccine, live, oral [facility] 1986 diphtheria, tetanus toxoids and pertussis vaccine [facility] 1986 trivalent poliovirus vaccine, live, oral [facility] Payers Date Payer Category Payer Medicaid [id number] 2007 Medicare MEDICARE MEDICAR E PART A & B [id number] 2007-Present [address] [place] [address] Medicare [id number] 1986 Unknown [id number] 1986 Unknown [id number] 1986 Unknown [id number] 1986 Unknown [id number] 1986 Unknown [id number] 1986 Unknown [id number] 1986 Unknown [id number] 1986 Unknown [id number] 1986 Unknown [id number] 1958 Medicaid [id number] 1958 Medicare [id number] Medicare Medicare [id number] Social History Date Type Detail Facility Start: 06-13-2020 End: 05-29-2023 Tobacco smoking status NHIS Never smoked tobacco [facility] Work Phone: Start: 06-13-2020 Tobacco use and exposure Smokeless tobacco non-user [facility] Start: 07-15-2020 Alcohol intake Lifetime non-d mark (finding) [facility] Start: 06-13-2020 History SDOH Alcohol Frequency 1 [facility] Start: 1986 Sex Assigned At Not on file [facility] Tobacco smoking status No Smoking Status Entered [facility] Sex Assigned At Female [facility] Tobacco smoking status NHIS Tobacco smoking consumption unknown [facility] Start: 1985 Sex Assigned At Female [facility] NEGATED: Highlighted row [facility] Goals Date Patient Goal Desired Activity /State Functional Status Date Assessment Result Facility 06-01-2023 Functional status Patient at Baseline [facility] Work Phone: Mental Status Date Assessment Result Facility 06-01-2023 Cognitive function Cognitive Sta tus Patient at Baseline [facility] Work Phone: Clinical Notes 06-10-2022 to 06-01-2023 Note Date & Type Note Facility 06-01-2023 Discharge summary Note Date/Time June 01, 2023 12:23pm [facility] [address] [place] [address] Discharge Summary Signed Patient: Migdalia Card MR#: [id number] : 1985 Acct:[id number] Age/Sex: 37 / F Adm Date: 4 Loc: 4N Room: 8Q5718-[address]: Rico Romero DO Copies to: DO Rico Baldwin DO~ Providers Date of Discharge: 06/01/23 Discharging Provider: Rico Romero Primary Care Provider: Lio Munroe Discharge Diagnosis (1) Periorbital cellulitis: (2) Failure of outpatient treatment: (3) Hypertension: (4) Seizure disorder: (5) Bipolar disorder: (6) PTSD (post-traumatic stress disorder): (7) Hypercholesterolemia: (8) Moderate intellectual disability: Final Diagnosis Final Discharge Diagnosis: Acute infectious periorbital cellulitis. This is due to underlying acute bacterial sinusitis. Failure of outpatient treatment. Elevated lactic acid and elevated white blood count on presentation to our ER, concerning for sepsis and bacteremia. CT scan of the sinuses and facial bones was read by radiology as the following: CT/CT facial bones w con IMPRESSION: NO EVIDENCE OF FACIAL BONE FRACTURE. BILATERAL PERIORBITAL SOFT TISSUE SWELLING IS SEEN EXTENDING INTO THE CHEEK REGION WITHOUT EVIDENCE OF ABSCESS. THERE ARE PRESUMED REACTIVE/PROMINENT BILATERAL LEVEL 2 LYMPH NODES. MILD ETHMOID AND MAXILLARY SINUS DISEASE. History of multiple MRDD and psychiatric disorders, which seem to be clinically stable during this hospital stay. Summary Hospital Course Hospital course: This is a 37-year-old woman with developmental delay who lives at the [facility]. She had been cared for at an outside hospital, being discharged couple days before presenting here, for periorbital cellulitis. The caregiver noticed worsening appearance of the patient's face. The patient has also been picking on the skin of her face and she reported that the skin on her face was itching. In the emergency room she had an elevated lactic acid level and an elevated white blood count concerning for bacteremia and the risk of developing sepsis. She was admitted to the hospital. She was placed on broad-spectrum antibiotics with vancomycin and Levaquin. At the outside hospital she had been discharged home to take doxycycline and prednisone for short time. Prednisone was not administered here. CT scanning of the sinuses was done. Changes consistent with periorbital cellulitis was found. No significant fluid collections were seen in her sinusesand the eyes are normal on this CT scan. While she was here in this hospital she made a steady improvement. GHULAM testing was done because the rash in her face looks so dry and like a butterfly rash, but the GHULAM lab test came back perfectly normal. Mostly her dry skin is likely due to washing with soap that is too strong. It does not look like a particularacute allergic reaction. Fortunately white blood count improved rapidly. Lactic acid level improved rapidly. Blood cultures were negative. On the last hospital day the patient's legal guardian came to visit her before she will be transferred back to [place]. She was also given the discharge instructions and the legal guardian will work on making sure that she has gentlesoaps and appropriate skin moisturizers to prevent dry skin and itching which talia constant problem for this patient. The legal guardian was also enforcing on hand hygiene and appropriate facial hygiene with the patient which is also appropriate. Condition Condition at Discharge: Stable Status at Discharge Functional status at discharge: independent ambulation Overall status at discharge: patient is back to baseline Time Spent with Patient Time spent providing/coordinating discharge services (# min): 34 Diagnostic Studies Completed and Pending Studies Pending studies at discharge: 05/29/23 13:54 Blood Culture Stat Preliminary micro results at discharge 05/29/23 13:54 Blood Culture - Preliminary Blood - Right Antecubital No Growth 2 Days 05/29/23 13:33 Blood Culture - Preliminary Blood - Right Antecubital No Growth 2 Days Labs on day of discharge: 06/01/23 05:58: Corrected WBC 10.1, Uncorrected WBC Count 10.1, RBC 3.77, Hgb 11.7 L, Hct 35.5, MCV 93.9, MCH 31.0, MCHC 33.0, RDW 13.7, Plt Count 456 H, MPV 6.1 L, Neut % (Auto) N/A, Lymph % (Auto) N/A, [place] % (Auto) N/A, Eos % (Auto) N/A, Baso % (Auto) N/A, Nucleat RBC Rel Count N/A, Neut # (Auto) N/A, Lymph # (Auto) N/A, [place] # (Auto) N/A, Eos # (Auto) N/A, Baso # (Auto) N/A, Band Neutrophils % 5, Lymphocytes % 24, Monocytes % 6, Eosinophils % 4 H, Myelocytes % 11 H, Segmented Neutrophils 51, Platelet Estimate Increased, Plt Morphology Comment Normal, RBC Morphology Normal, ESR 30 H, PHA Creatinine Clear 191.30, Sodium 136, Potassium 4.3, Chloride 102, Carbon Dioxide 26.6, Anion Gap 11.7, BUN 9, Creatinine 0.43 L, Est GFR (CKD-EPI) > 60.0, Glucose 107 H, Calcium 8.9, Total Bilirubin 0.2 L, AST 13, ALT 15, Alkaline Phosphatase 42, C-Reactive Prot,Quant 1.1 H, Total Protein 6.5, Albumin 3.5, Globulin 3.0, Albumin/Globulin Ratio 1.2, Slides for Path Review Cancelled Exam Physical Exam Vital Signs: Temp Pulse Resp BP Pulse Ox O2 Del Method 97.3 F L 91 16 130/88 96 Room Air 06/01/23 08:00 06/01/23 08:00 06/01/23 08:00 06/01/23 08:00 06/01/23 08:00 06/01/23 08:00 Narrative: Face: Bilateral skin changes from periorbital cellulitis are present. I do agree there is some drying of the skin. This would look a little bit like a butterfly rash . But the GHULAM profile already came back negative. There is no surface skin cellulitis, just typical black eye changes of peyman-orbital cellulitis. Lungs: Clear to auscultation throughout. No wheezing. No rhonchi. No crackles. Cardiac: Regular rate and rhythm auscultation. No rubs or gallops to auscultation. Extremities: No edema in ankles. No swelling or knots of calves bilaterally. Neck: Shotty anterior lymphadenopathy is noted. Left foot: There are some areas of dry skin likely due to ill fitting footwear. The legal guardian points out the patient does not wear her AFO boots like she should. There is no fungal infection on the skin. This will respond to just nice topical moisturizers and appropriate footwear and appropriate socks. Discharge Plan Discharge Plan Patient Disposition: Home Activity: No Activity Restriction Diet: Regular Additional Instructions: DO continue to finish all of the antibiotic pills that was prescribed by Morris: Doxycycline. DO NOT take any of the prednisone that was prescribedby [facility]. This is not needed anymore. DO take the extra antibiotic we are sending home at this time: Avelox. Prescriptions: New moxifloxacin 400 mg tablet 400 mg PO DAILY 5 Days Qty: 5 0RF Continued atomoxetine 40 mg capsule 40 mg PO QPM atomoxetine 60 mg capsule 60 mg PO QAM levonorgestrel-ethinyl estrad [Falmina (28)] 0.1-20 mg-mcg tablet 1 tab PO DAILY Calcium 600 + D(3) 600 mg-5 mcg (200 unit) capsule 1 cap PO BID carbamazepine 400 mg tablet extended release 12 hr 400 mg PO QPM clonidine HCl 0.2 mg tablet 0.2 mg PO TID diazepam 5 mg tablet 5 mg PO DIRECTED Rx Instructions: 1 hour prior to procedure dicyclomine 20 mg tablet 20 mg PO BID docusate sodium 100 mg capsule 200 mg PO BID doxycycline hyclate 100 mg capsule 100 mg PO BID Rx Instructions: x 10 days, started on 05/28/23 fenofibrate 120 mg tablet 120 mg PO HS Rx Instructions: 134 mg capsule calcium polycarbophil [Fiber-Lax] 625 mg tablet 1,250 mg PO DAILY fluorouracil [Efudex] 5 % cream 1 applic topical BID guanfacine 2 mg tablet 2 mg PO TID lamotrigine [Lamictal] 200 mg tablet 200 mg PO QAM lamotrigine [Lamictal] 100 mg tablet 100 mg PO HS loratadine [Allerclear] 10 mg tablet 10 mg PO DAILY metoprolol tartrate 100 mg tablet 100 mg PO QID montelukast 10 mg tablet 10 mg PO DAILY olanzapine 10 mg tablet 10 mg PO QHS omeprazole 20 mg capsule,delayed release(DR/EC) 20 mg PO DAILY paliperidone 6 mg tablet extended release 24 hr 6 mg PO BID white petrolatum [Petroleum Jelly] Gel 1 applic topical BID PRN (Reason: dry skin) Rx Instructions: twice a day and PRN until face is healed Tums 300 mg (750 mg) tablet,chewable 600 mg PO Q4HR PRN (Reason: dyspepsia) fluticasone propionate [24 Hour Allergy Relief] 50 mcg/actuation spray,suspension 2 spray intranasal DAILY PRN (Reason: allergy symptoms) Rx Instructions: administer into each nostril ibuprofen [Advil] 200 mg tablet 400 mg PO DIRECTED PRN (Reason: pain) loperamide [Anti-Diarrheal (loperamide)] 2 mg tablet 4 mg PO DIRECTED PRN (Reason: loose stool) Rx Instructions: administer after each loose stool until symptoms controlled; do not exceed 8 mg per 24 hrs senna 8.6 mg capsule 17.2 mg PO BID PRN (Reason: constipation) Altamist 0.65 % aerosol,spray 1 spray intranasal DIRECTED PRN (Reason: nasal congestion) Rx Instructions: 3-4 times a day as needed Redness Relief 0.012-0.2 % drops 2 drp ophthalmic (eye) TID PRN (Reason: dry eye(s)) lamotrigine [Lamictal] 150 mg tablet 300 mg PO HS Rx Instructions: take with 100 mg tablet for total of 400 mg olanzapine 20 mg tablet 20 mg PO QHS Rx Instructions: take with 10 mg tablet for total dose of 30 mg Discontinued prednisone 50 mg tablet 50 mg PO DAILY Rx Instructions: x5 days, started on 05/29/23 ondansetron 4 mg tablet,disintegrating 4 mg PO Q6HR PRN (Reason: nausea and vomiting) Follow Up: Lio Munroe DO [Primary Care Provider] - (The office is currently closed for lunch. Please call the office for a follow-up appointment within 3-5 days. ) Documented By: Rico Romero DO [id number] Signed By: <Electronically signed by Rico Romero DO> 06/01/23 1503 [facility] Work Phone: [phone] Progress note Author Rico Romero [facility] May 31, 2023 11:47am Note Date/Time May 31, 2023 11:4 7am [facility] [address] [place] [address] Hospitalist Progress Note Signed Patient: Migdalia Card MR#: [id number] : 1985 Acct:[id number] Age/Sex: 37 / F Adm Date: 4 Loc: 4N Room: 9J5633-9 Type: ADM IN Attending Dr: Rico Romero DO Copies to: ~ Date of Service: 05/31/2023 Subjective Subjective Narrative: Patient states that her symptoms that caused her to come to this hospital for hot flash. She says that that is better at this time. Taking her history is difficult because of MRDD. It is difficult to tell if the hot flash was a sensation of warmness and pain in her face or total body fevers chills and rigors. She does describe feeling that she was really cold. She reports thatthat is better at this time. Right now she denies any facial pain. She denies any nasal pain. She denies any eye pain on either one of her eyes. She denies any headache. Denies any fevers or chills. She denies any diarrhea. Her appetite is good. She repeatedly asks ? Home? Patient CT scan showing bilateral periorbital soft tissue swelling with no underlying abscess. History taking is limited given her impaired speech due to MRDD. Currently no family member present at bedside. Exam Physical Exam Vital Signs: Temp Pulse Resp BP Pulse Ox O2 Del Method 98.3 F 69 16 137/79 97 Room Air 05/31/23 08:00 05/31/23 08:00 05/31/23 08:00 05/31/23 08:00 05/31/23 08:00 05/31/23 08:00 Narrative: Face: Bilateral skin changes from periorbital cellulitis are present. I do agree there is some drying of the skin. This would look a little bit like a butterfly rash . But the GHULAM profile already came back negative. There is edema underneath both eyelids, consistent with acute infectious periorbital cellulitis. Lungs: Clear to auscultation throughout. No wheezing. No rhonchi. No crackles. Cardiac: Regular rate and rhythm auscultation. No rubs or gallops to auscultation. Extremities: No edema in ankles. No swelling or knots of calves bilaterally. Neck: Shotty anterior lymphadenopathy is noted Objective Lab Results 05/31/23 03:22 05/30/23 05:26 Microbiology Results Microbiology 05/29/23 13:54 Blood - Right Antecubital Blood Culture - Preliminary No Growth 1 Day 05/29/23 13:33 Blood - Right Antecubital Blood Culture - Preliminary No Growth 1 Day Meds Allergies and Active Meds Allergies amoxicillin Allergy (Unknown, Verified 05/29/23 13:05) Unknown Reaction aripiprazole [From Abilify] Allergy (Unknown, Verified 05/29/23 13:05) Unknown Reaction chlorpheniramine [From Vicks DayQuil] Allergy (Unknown, Verified 05/29/23 13:05) Unknown Reaction dextromethorphan [From Vicks DayQuil] Allergy (Unknown, Verified 05/29/23 13:05) Unknown Reaction divalproex sodium [From Depakote] Allergy (Unknown, Verified 05/29/23 13:05) Unknown Reaction guaifenesin [From Vicks DayQuil] Allergy (Unknown, Verified 05/29/23 13:05) Unknown Reaction metyrosine Allergy (Unknown, Verified 05/29/23 13:05) Unknown Reaction molindone [From Moban] Allergy (Unknown, Verified 05/29/23 13:05) Unknown Reaction phenylpropanolamine [From Vicks DayQuil] Allergy (Unknown, Verified 05/29/23 13:05) Unknown Reaction pseudoephedrine [From Vicks DayQuil] Allergy (Unknown, Verified 05/29/23 13:05) Unknown Reaction sympathomimetics Allergy (Unknown, Uncoded 05/29/23 13:05) Unknown Reaction Active Meds: Active Medications Generic Name Dose Route Start Last Admin Trade Name Freq PRN Reason Stop Dose Admin Acetaminophen 650 mg 05/29/23 15:58 05/31/23 10:38 Acetaminophen 325 Mg Tablet PO 05/28/24 15:57 650 mg Q6HR PRN Administration Pain Scale 1 - 3 or fever Atomoxetine HCl 60 mg 05/30/23 09:00 05/31/23 08:14 Atomoxetine 60 Mg Capsule PO 05/29/24 08:59 60 mg QAM KATHARINE Administration Atomoxetine HCl 40 mg 05/29/23 19:30 05/30/23 20:06 Atomoxetine 40 Mg Capsule PO 05/28/24 19:29 40 mg DAILY@1930 KATHARINE Administration Bisacodyl 10 mg 05/29/23 15:58 Bisacodyl 5 Mg Tablet.Dr PO 05/28/24 15:57 DAILY PRN Constipation Calcium Carbonate 1 tab 05/29/23 19:30 05/31/23 08:14 Calcium Carbonate/Vitamin D3 500 Mg/200 Unit Tablet PO 05/28/24 19:29 1 tab BID@0900,1930 KATHARINE Administration Calcium Carbonate 500 mg 05/29/23 18:01 Calcium Carbonate 500 Mg Tab.Chew PO Q4HR PRN dyspepsia Calcium Polycarbophil 1,250 mg 05/30/23 09:00 05/31/23 08:26 Calcium Polycarbophil 625 Mg Tablet PO 05/29/24 08:59 1,250 mg DAILY KATHARINE Administration Carbamazepine 400 mg 05/29/23 19:30 05/30/23 20:05 Carbamazepine Xr.12hr 200 Mg Tab.Er.12h PO 05/28/24 19:29 400 mg DAILY@1929 KATHARINE Administration Clonidine HCl 0.2 mg 05/29/23 19:30 05/31/23 08:26 Clonidine 0.2 Mg Tablet PO 05/28/24 19:29 0.2 mg 0900,1399,1929 KATHARINE Administration Diazepam 5 mg 05/29/23 18:15 Diazepam 5 Mg Tablet PO 11/25/23 18:14 ONCE PRN 1 HOUR PRIOR TO PROCEDURE Dicyclomine HCl 20 mg 05/29/23 19:30 05/31/23 08:17 Dicyclomine 20 Mg Tablet PO 05/28/24 19:29 20 mg BID@ KATHARINE Administration Diphenhydramine HCl 25 mg 05/29/23 15:51 05/31/23 02:33 Diphenhydramine 25 Mg Capsule PO 05/28/24 15:50 25 mg Q8H PRN Administration Severe rash or Itching Docusate Sodium 200 mg 05/29/23 19:30 05/31/23 08:17 Docusate 100 Mg Capsule PO 05/28/24 19:29 200 mg BID@899,1929 [facility] Administration Emollient Ointment 1 applic 05/29/23 18:01 05/30/23 11:30 Petrolatum,White 99 Gm Oint...G. TOPICAL 1 applic BID PRN Administration dry skin Enoxaparin Sodium 40 mg 05/30/23 10:00 05/31/23 08:18 Enoxaparin 40 Mg/0.4 Ml Syringe SUBCUT 05/29/24 09:59 40 mg DAILY@10 [facility] Administration Fenofibrate 145 mg 05/29/23 19:30 05/30/23 20:04 Fenofibrate Nanocrystallized 145 Mg Tablet PO 05/28/24 19:29 145 mg DAILY@1929 [facility] Administration Fluticasone Propionate 2 spray 05/29/23 18:01 Fluticasone Propionate Charlotte 120 Charlotte/16 Gm Bottle INTRANASAL 05/28/24 18:00 DAILY PRN allergy symptoms Guanfacine HCl 2 mg 05/29/23 19:30 05/31/23 08:15 Guanfacine 1 Mg Tablet PO 05/28/24 19:29 2 mg TID@0900,1400,1930 KATHARINE Administration Hydralazine HCl 10 mg 05/29/23 16:01 Hydralazine 20 Mg/Ml Vial IV-PUSH 05/28/24 16:00 Q4H PRN if SBP > 185 Levofloxacin 750 mg in 150 mls @ 100 mls/hr 05/30/23 17:00 05/30/23 17:16 Levaquin IV 100 mls/hr Q24H KATHARINE Administration Vancomycin HCl 1.5 gm/ 530 mls @ 353.333 mls/hr 05/31/23 12:00 Dextrose IV 05/30/24 11:59 Q8H KATHARINE Ibuprofen 400 mg 05/29/23 18:01 05/31/23 02:33 Ibuprofen 400 Mg Tablet PO 05/28/24 18:00 400 mg Q8H PRN Administration pain Lamotrigine 400 mg 05/29/23 19:30 05/30/23 20:05 Lamotrigine 100 Mg Tablet PO 05/28/24 19:29 400 mg DAILY@1929 KATHARINE Administration Lamotrigine 200 mg 05/30/23 09:00 05/31/23 10:40 Lamotrigine 100 Mg Tablet PO 05/29/24 08:59 200 mg QAM KATHARINE Administration Loperamide HCl 4 mg 05/29/23 18:01 Loperamide 2 Mg Capsule PO 05/28/24 18:00 POST.LOOSE.STOOL PRN loose stool Loratadine 10 mg 05/30/23 09:00 05/31/23 08:16 Loratadine 10 Mg Tablet PO 05/29/24 08:59 10 mg DAILY KATHARINE Administration Melatonin 5 mg 05/29/23 15:58 05/30/23 20:21 Melatonin 5 Mg Tablet PO 05/28/24 15:57 5 mg QHS PRN Administration Insomnia Metoprolol Tartrate 100 mg 05/29/23 19:30 05/31/23 10:38 Metoprolol Tartrate 100 Mg Tablet PO 05/28/24 19:29 100 mg QID@0600,1100,1500,1930 KATHARINE Administration Montelukast Sodium 10 mg 05/30/23 09:00 05/31/23 08:26 Montelukast 10 Mg Tablet PO 05/29/24 08:59 10 mg DAILY KATHARINE Administration Non-Formulary Medication 1 applic 05/29/23 21:00 05/31/23 08:23 Fluorouracil [Efudex] TOPICAL 05/28/24 20:59 Not Given BID KATHARINE Non-Formulary Medication 1 tab 05/30/23 09:00 05/31/23 08:23 Levonorgestrel-Ethinyl Estrad [Falmina (28)] PO 05/29/24 08:59 Not Given DAILY KATHARINE Olanzapine 30 mg 05/29/23 19:30 05/30/23 20:06 Olanzapine 10 Mg Tablet PO 05/28/24 19:29 30 mg DAILY@1929 KATHARINE Administration Paliperidone 6 mg 05/29/23 19:30 05/31/23 08:17 Paliperidone 24hr Er 6 Mg Tab.Er.24 PO 05/28/24 19:29 6 mg BID@899,1929 KATHARINE Administration Pantoprazole Sodium 40 mg 05/30/23 09:00 05/31/23 08:17 Pantoprazole 40 Mg Tablet. PO 05/29/24 08:59 40 mg DAILY KATHARINE Administration Sennosides 2 tab 05/29/23 18:01 Sennosides 8.6 Mg Tablet PO BID PRN constipation Sodium Chloride 0 ml 05/29/23 13:02 05/31/23 08:27 Sodium Chloride 0.9 % 10 Ml Syringe IV-PUSH 05/28/24 13:01 10 ml PRN PRN Administration Flush Vancomycin HCl 1 each 05/29/23 15:51 Vancomycin - Pharmacy Dosing 1 Each Miscell IV PRN PRN ZZ.Pharmacy Consult Protocol A&P - Hospitalist Assessment/Plan (1) Periorbital cellulitis: (2) Failure of outpatient treatment: (3) Hypertension: (4) Seizure disorder: (5) Bipolar disorder: (6) PTSD (post-traumatic stress disorder): (7) Hypercholesterolemia: (8) Moderate intellectual disability: Plan Patient was admitted for periorbital cellulitis with the labs showing leukocytosis and lactic acidosis. Pending blood cultures. Continue current IV antibiotic with both IV Vancomycin - dosed by pharmacy, AND IV Levaquin until clinically improvement. On Lovenox for DVT prophylaxis. Continue home medications. Given her presentation with periorbital cellulitis, with her labs showing significant lactic acidosis and leukocytosis, at the time of admission she clearly had failed outpatient treatment and treatment at the other outlying hospital, and was at risk for sepsis and progression into multisystem organ failure. History taking is challenging given her MRDD status, and that she cannot fully give a complete history to give us an arc of this illness. Therefore inpatient status from the beginning of this hospital stay is appropriate. As of today this patient requires continued hospital stay for IV antibiotics until documented clinical improvement. Documented By: Rico Romero DO 1143 Signed By: <Electronically signed by Rico Romero DO> 05/31/23 1147 [facility] Work Phone: 1([phone]) 524-750404-08-2024 Progress note Author Anamaria Benton [facility] May 30, 2023 12:21pm Note Date/Time May 30, 2023 12:2 1pm [facility] [address] [place] [address] Hospitalist Progress Note Signed Patient: Migdalia Card MR#: [id number] : 1985 Acct:[id number] Age/Sex: 37 / F Adm Date: 4 Loc: 4N Room: 0L9781-2 Type: ADM INOo Attending Dr: Anamaria Benton MD Copies to: ~ Date of Service: 05/30/2023 Subjective Subjective Narrative: Patient examined at bedside and continues to complain of facial discomfort. Noted to have bilateral periorbital edema and cellulitis. Her labs showing leukocytosis with WBC count of 13.4 with bandemia as well. She also had lactic acidosis on admission. Patient CT scan showing bilateral periorbital soft tissue swelling with no underlying abscess. History taking is limited given herimpaired speech due to MRDD. Currently no family member present at bedside. Exam Physical Exam Vital Signs: Temp Pulse Resp BP Pulse Ox O2 Del Method 98.3 F 96 17 155/96 H 98 Room Air 05/30/23 11:39 05/30/23 11:39 05/30/23 11:39 05/30/23 11:39 05/30/23 11:39 05/30/23 11:39 Const Orientation: alert and awake Eyes Other: Bilateral periorbital edema with area of erythema. Extraocular movement intact without tenderness on eye movement. Normal visual acuity. Resp Effort & Inspection: normal respiratory effort and able to speak in complete sentences Auscultation: no rales, no rhonchi and no wheezes Cardio Rate: regular rate Rhythm: regular rhythm Heart Sounds: S1 normal and S2 normal GI Palpation: soft, not firm, no guarding and nontender Neuro General: patient alert, patient awake, moves all extremities and no focal motor deficits Objective Lab Results 05/30/23 05:26 05/30/23 05:26 Meds Allergies and Active Meds Allergies amoxicillin Allergy (Unknown, Verified 05/29/23 13:05) Unknown Reaction aripiprazole [From Abilify] Allergy (Unknown, Verified 05/29/23 13:05) Unknown Reaction chlorpheniramine [From Vicks DayQuil] Allergy (Unknown, Verified 05/29/23 13:05) Unknown Reaction dextromethorphan [From Vicks DayQuil] Allergy (Unknown, Verified 05/29/23 13:05) Unknown Reaction divalproex sodium [From Depakote] Allergy (Unknown, Verified 05/29/23 13:05) Unknown Reaction guaifenesin [From Vicks DayQuil] Allergy (Unknown, Verified 05/29/23 13:05) Unknown Reaction metyrosine Allergy (Unknown, Verified 05/29/23 13:05) Unknown Reaction molindone [From Moban] Allergy (Unknown, Verified 05/29/23 13:05) Unknown Reaction phenylpropanolamine [From Vicks DayQuil] Allergy (Unknown, Verified 05/29/23 13:05) Unknown Reaction pseudoephedrine [From Vicks DayQuil] Allergy (Unknown, Verified 05/29/23 13:05) Unknown Reaction sympathomimetics Allergy (Unknown, Uncoded 05/29/23 13:05) Unknown Reaction Active Meds: Active Medications Generic Name Dose Route Start Last Admin Trade Name Freq PRN Reason Stop Dose Admin Acetaminophen 650 mg 05/29/23 15:58 05/30/23 04:02 Acetaminophen 325 Mg Tablet PO 05/28/24 15:57 650 mg Q6HR PRN Administration Pain Scale 1 - 3 or fever Atomoxetine HCl 60 mg 05/30/23 09:00 05/30/23 08:24 Atomoxetine 60 Mg Capsule PO 05/29/24 08:59 60 mg QAM KATHARINE Administration Atomoxetine HCl 40 mg 05/29/23 19:30 05/29/23 20:03 Atomoxetine 40 Mg Capsule PO 05/28/24 19:29 40 mg DAILY@1929 KATHARINE Administration Bisacodyl 10 mg 05/29/23 15:58 Bisacodyl 5 Mg Tablet.Dr PO 05/28/24 15:57 DAILY PRN Constipation Calcium Carbonate 1 tab 05/29/23 19:30 05/30/23 08:24 Calcium Carbonate/Vitamin D3 500 Mg/200 Unit Tablet PO 05/28/24 19:29 1 tab BID@899,1929 KATHARINE Administration Calcium Carbonate 500 mg 05/29/23 18:01 Calcium Carbonate 500 Mg Tab.Chew PO Q4HR PRN dyspepsia Calcium Polycarbophil 1,250 mg 05/30/23 09:00 05/30/23 08:25 Calcium Polycarbophil 625 Mg Tablet PO 05/29/24 08:59 1,250 mg DAILY KATHARINE Administration Carbamazepine 400 mg 05/29/23 19:30 05/29/23 20:03 Carbamazepine Xr.12hr 200 Mg Tab.Er.12h PO 05/28/24 19:29 400 mg DAILY@1929 KATHARINE Administration Clonidine HCl 0.2 mg 05/29/23 19:30 05/30/23 11:29 Clonidine 0.2 Mg Tablet PO 05/28/24 19:29 0.2 mg 899,1399,1929 KATHARINE Administration Diazepam 5 mg 05/29/23 18:15 Diazepam 5 Mg Tablet PO 11/25/23 18:14 ONCE PRN 1 HOUR PRIOR TO PROCEDURE Dicyclomine HCl 20 mg 05/29/23 19:30 05/30/23 08:25 Dicyclomine 20 Mg Tablet PO 05/28/24 19:29 20 mg BID@899,1929 KATHARINE Administration Diphenhydramine HCl 25 mg 05/29/23 15:51 05/29/23 20:04 Diphenhydramine 25 Mg Capsule PO 05/28/24 15:50 25 mg Q8H PRN Administration Severe rash or Itching Docusate Sodium 200 mg 05/29/23 19:30 05/30/23 08:24 Docusate 100 Mg Capsule PO 05/28/24 19:29 200 mg BID@0900,1930 KATHARINE Administration Emollient Ointment 1 applic 05/29/23 18:01 05/30/23 11:30 Petrolatum,White 99 Gm Oint...G. TOPICAL 1 applic BID PRN Administration dry skin Enoxaparin Sodium 40 mg 05/30/23 10:00 05/30/23 09:11 Enoxaparin 40 Mg/0.4 Ml Syringe SUBCUT 05/29/24 09:59 40 mg DAILY@10 KATHARINE Administration Fenofibrate 145 mg 05/29/23 19:30 05/29/23 20:00 Fenofibrate Nanocrystallized 145 Mg Tablet PO 05/28/24 19:29 145 mg DAILY@1929 KATHARINE Administration Fluticasone Propionate 2 spray 05/29/23 18:01 Fluticasone Propionate Charlotte 120 Charlotte/16 Gm Bottle INTRANASAL 05/28/24 18:00 DAILY PRN allergy symptoms Guanfacine HCl 2 mg 05/29/23 19:30 05/30/23 08:24 Guanfacine 1 Mg Tablet PO 05/28/24 19:29 2 mg TID@0900,1400,1930 KATHARINE Administration Hydralazine HCl 10 mg 05/29/23 16:01 Hydralazine 20 Mg/Ml Vial IV-PUSH 05/28/24 16:00 Q4H PRN if SBP > 185 Levofloxacin 750 mg in 150 mls @ 100 mls/hr 05/30/23 17:00 Levaquin IV Q24H KATHARINE Vancomycin HCl 1.25 gm/ 275 mls @ 183.333 mls/hr 05/29/23 22:30 05/30/23 09:10 Dextrose IV 05/28/24 22:29 183.33 mls/hr Q8H KATHARINE Administration Ibuprofen 400 mg 05/29/23 18:01 05/29/23 20:04 Ibuprofen 400 Mg Tablet PO 05/28/24 18:00 400 mg Q8H PRN Administration pain Lamotrigine 400 mg 05/29/23 19:30 05/29/23 20:01 Lamotrigine 100 Mg Tablet PO 05/28/24 19:29 400 mg DAILY@193 KATHARINE Administration Lamotrigine 200 mg 05/30/23 09:00 05/30/23 08:30 Lamotrigine 100 Mg Tablet PO 05/29/24 08:59 200 mg QAM KATHARINE Administration Loperamide HCl 4 mg 05/29/23 18:01 Loperamide 2 Mg Capsule PO 05/28/24 18:00 POST.LOOSE.STOOL PRN loose stool Loratadine 10 mg 05/30/23 09:00 05/30/23 08:24 Loratadine 10 Mg Tablet PO 05/29/24 08:59 10 mg DAILY KATHARINE Administration Melatonin 5 mg 05/29/23 15:58 05/29/23 20:04 Melatonin 5 Mg Tablet PO 05/28/24 15:57 5 mg QHS PRN Administration Insomnia Metoprolol Tartrate 100 mg 05/29/23 19:30 05/30/23 11:29 Metoprolol Tartrate 100 Mg Tablet PO 05/28/24 19:29 100 mg QID@0600,1100,1500,1930 KATHARINE Administration Montelukast Sodium 10 mg 05/30/23 09:00 05/30/23 09:11 Montelukast 10 Mg Tablet PO 05/29/24 08:59 10 mg DAILY KATHARINE Administration Non-Formulary Medication 1 applic 05/29/23 21:00 05/29/23 23:29 Fluorouracil [Efudex] TOPICAL 05/28/24 20:59 Not Given BID [facility] Non-Formulary Medication 1 tab 05/30/23 09:00 Levonorgestrel-Ethinyl Estrad [Falmina (28)] PO 05/29/24 08:59 DAILY KATHARINE Olanzapine 30 mg 05/29/23 19:30 05/29/23 20:00 Olanzapine 10 Mg Tablet PO 05/28/24 19:29 30 mg DAILY@1929 KATHARINE Administration Paliperidone 6 mg 05/29/23 19:30 05/30/23 08:25 Paliperidone 24hr Er 6 Mg Tab.Er.24 PO 05/28/24 19:29 6 mg BID@899,1929 KATHARINE Administration Pantoprazole Sodium 40 mg 05/30/23 09:00 05/30/23 08:25 Pantoprazole 40 Mg Tablet.Dr PO 05/29/24 08:59 40 mg DAILY KATHARINE Administration Sennosides 2 tab 05/29/23 18:01 Sennosides 8.6 Mg Tablet PO BID PRN constipation Sodium Chloride 0 ml 05/29/23 13:02 05/30/23 11:03 Sodium Chloride 0.9 % 10 Ml Syringe IV-PUSH 05/28/24 13:01 10 ml PRN PRN Administration Flush Vancomycin HCl 1 each 05/29/23 13:17 Vancomycin - Pharmacy Dosing 1 Each Miscell IV ONCE PRN ZZ.Pharmacy Consult Protocol Vancomycin HCl 1 each 05/29/23 15:51 Vancomycin - Pharmacy Dosing 1 Each Miscell IV PRN PRN ZZ.Pharmacy Consult Protocol A&P - Hospitalist Assessment/Plan (1) Periorbital cellulitis: Plan Patient was admitted for periorbital cellulitis with the labs showing leukocytosis and lactic acidosis. Pending blood cultures. Continue current IV antibiotic until clinically improvement. Replace magnesium. On Lovenox for DVTprophylaxis. Continue home medications. Follow-up lactic acid and morning labs. Given her presentation with periorbital cellulitis with her labs showing significant lactic acidosis and leukocytosis, patient requires hospital stay forIV antibiotics until clinical improvement. Documented By: Anamaria Benton MD 05/30/23 1215 Signed By: <Electronically signed by Anamaria Benton MD> 05/30/23 1221 [facility] Work Phone: 1([phone] 266-893704-07-2024 History and physical note Author Arvind Regan [facility] May 29, 2023 4:12pm Note Date/Time May 29, 2023 4:01 pm [facility] [address] [place] [address] Hospitalist H&P Signed Patient: Migdalia Card MR#: [id number] : 1985 Acct:[id number] Age/Sex: 37 / F Adm Date: 4 Loc: 4 Room: 5W6033-7 Type: ADM INOo Attending Dr: Arvind Regan DO Copies to: NON STAFF Arvind Regan DO~ HPI DATE OF EXAMINATION: 05/29/23 CHIEF COMPLAINT: Concern for worsening facial cellulitis HISTORY OF PRESENT ILLNESS: This is a 37-year-old female with MRDD who lives in a halfway who presents [facility] ER with her caregiver with concern for worsening facial cellulitis. Patient was just discharged from [facility] on Tuesday after being treated for periorbital cellulitis. She was discharged home with doxycycline p.o. which she has been taking as per caregiver. Caregiver noticed worsening erythema. Patient has been picking on her skin on the face. She reports that it is itching. Patient is a poor historian due to MRDD but she is able to answer some of my questions. History provided by caregiver by discussion with ER provider and review of medical chart. Patient reports erythema and swelling around her eyes bilaterally. She denies pain with extraocular movement. No changes in vision. No fever. No nausea vomiting or abdominal pain. Review of Systems Review of Systems All other systems reviewed & are negative unless noted below or in HPI [facility] Medical History (Updated 05/29/23 @ 16:10 by Arvind Regan DO) Bursitis of right patella Pineal gland cyst Astigmatism Hypercholesterolemia Mood disorder Hormone imbalance Constipation GERD (gastroesophageal reflux disease) Seasonal allergies Hypertension Seizure disorder Pituitary microadenoma Osteopenia Hyperopia Bipolar disorder PTSD (post-traumatic stress disorder) Dissociative disorder Impulse control disorder, unspecified OCD (obsessive compulsive disorder) ADHD Moderate intellectual disability Surgical History (Updated 05/29/23 @ 13:27 by Candelaria Akbar RN) Hx of cholecystectomy Social History Smoking Status: Never smoker Substance Use Type: None Meds Medications and Allergies Allergies amoxicillin Allergy (Unknown, Verified 05/29/23 13:05) Unknown Reaction aripiprazole [From Abilify] Allergy (Unknown, Verified 05/29/23 13:05) Unknown Reaction chlorpheniramine [From Vicks DayQuil] Allergy (Unknown, Verified 05/29/23 13:05) Unknown Reaction dextromethorphan [From Vicks DayQuil] Allergy (Unknown, Verified 05/29/23 13:05) Unknown Reaction divalproex sodium [From Depakote] Allergy (Unknown, Verified 05/29/23 13:05) Unknown Reaction guaifenesin [From Vicks DayQuil] Allergy (Unknown, Verified 05/29/23 13:05) Unknown Reaction metyrosine Allergy (Unknown, Verified 05/29/23 13:05) Unknown Reaction molindone [From Moban] Allergy (Unknown, Verified 05/29/23 13:05) Unknown Reaction phenylpropanolamine [From Vicks DayQuil] Allergy (Unknown, Verified 05/29/23 13:05) Unknown Reaction pseudoephedrine [From [email or web address]] Allergy (Unknown, Verified 05/29/23 13:05) Unknown Reaction sympathomimetics Allergy (Unknown, Uncoded 05/29/23 13:05) Unknown Reaction Home Medications atomoxetine 40 mg capsule 40 mg PO QPM 05/29/23 [History Confirmed 05/29/23] atomoxetine 60 mg capsule 60 mg PO QAM 05/29/23 [History Confirmed 05/29/23] calcium carbonate 300 mg (750 mg) chewable tablet (Tums) 600 mg PO Q4HR PRN dyspepsia 05/29/23 [History Confirmed 05/29/23] calcium carbonate 600 mg-vitamin D3 5 mcg (200 unit) capsule (Calcium 600 + D(3)) 1 cap PO BID 05/29/23 [History Confirmed 05/29/23] calcium polycarbophil 625 mg tablet (Fiber-Lax) 1,250 mg PO DAILY 05/29/23 [History Confirmed 05/29/23] carbamazepine 400 mg tablet,extended release,12 hr 400 mg PO QPM 05/29/23 [History Confirmed 05/29/23] clonidine HCl 0.2 mg tablet 0.2 mg PO TID 05/29/23 [History Confirmed 05/29/23] diazepam 5 mg tablet 5 mg PO DIRECTED 05/29/23 [History Confirmed 05/29/23] dicyclomine 20 mg tablet 20 mg PO BID 05/29/23 [History Confirmed 05/29/23] docusate sodium 100 mg capsule 200 mg PO BID 05/29/23 [History Confirmed 05/29/23] doxycycline hyclate 100 mg capsule 100 mg PO BID 05/29/23 [History Confirmed 05/29/23] fenofibrate 120 mg tablet 120 mg PO HS 05/29/23 [History Confirmed 05/29/23] fluorouracil 5 % topical cream (Efudex) 1 applic topical BID 05/29/23 [History Confirmed 05/29/23] fluticasone propionate 50 mcg/actuation nasal spray,suspension (24 Hour Allergy Relief) 2 spray intranasal DAILY PRN allergy symptoms 05/29/23 [History Confirmed 05/29/23] guanfacine 2 mg tablet 2 mg PO TID 05/29/23 [History Confirmed 05/29/23] ibuprofen 200 mg tablet (Advil) 400 mg PO DIRECTED PRN pain 05/29/23 [History Confirmed 05/29/23] lamotrigine 100 mg tablet (Lamictal) 100 mg PO HS 05/29/23 [History Confirmed 05/29/23] lamotrigine 150 mg tablet (Lamictal) 300 mg PO HS 05/29/23 [History Confirmed 05/29/23] lamotrigine 200 mg tablet (Lamictal) 200 mg PO QAM 05/29/23 [History Confirmed 05/29/23] levonorgestrel-ethinyl estradiol 0.1 mg-20 mcg tablet (Falmina (28)) 1 tab PO DAILY 05/29/23 [History Confirmed 05/29/23] loperamide 2 mg tablet (Anti-Diarrheal (loperamide)) 4 mg PO DIRECTED PRN loose stool 05/29/23 [History Confirmed 05/29/23] loratadine 10 mg tablet (Allerclear) 10 mg PO DAILY 05/29/23 [History Confirmed 05/29/23] metoprolol tartrate 100 mg tablet 100 mg PO QID 05/29/23 [History Confirmed 05/29/23] montelukast 10 mg tablet 10 mg PO DAILY 05/29/23 [History Confirmed 05/29/23] naphazoline 0.012 %-glycerin 0.2 % eye drops (Redness Relief) 2 drp ophthalmic (eye) TID PRN dry eye(s) 05/29/23 [History Confirmed 05/29/23] olanzapine 10 mg tablet 10 mg PO QHS 05/29/23 [History Confirmed 05/29/23] olanzapine 20 mg tablet 20 mg PO QHS 05/29/23 [History Confirmed 05/29/23] omeprazole 20 mg capsule,delayed release 20 mg PO DAILY 05/29/23 [History Confirmed 05/29/23] ondansetron 4 mg disintegrating tablet 4 mg PO Q6HR PRN nausea and vomiting 05/29/23 [History Confirmed 05/29/23] paliperidone 6 mg tablet,extended release 24 hr 6 mg PO BID 05/29/23 [History Confirmed 05/29/23] prednisone 50 mg tablet 50 mg PO DAILY 05/29/23 [History Confirmed 05/29/23] sennosides 8.6 mg capsule (senna) 17.2 mg PO BID PRN constipation 05/29/23 [History Confirmed 05/29/23] sodium chloride 0.65 % nasal spray aerosol (Altamist) 1 spray intranasal DIRECTED PRN nasal congestion 05/29/23 [History Confirmed 05/29/23] white petrolatum (Petroleum Jelly topical) 1 applic topical BID PRN dry skin 05/29/23 [History Confirmed 05/29/23] Exam Physical Exam Vital Signs: Temp Pulse Resp BP Pulse Ox O2 Del Method 98.1 F 90 18 180/88 H 96 Room Air 05/29/23 15:48 05/29/23 15:48 05/29/23 15:48 05/29/23 15:48 05/29/23 15:48 05/29/23 15:48 Narrative: Generally: No acute distress, nontoxic appearing. Noted to be picking at her skin during my exam. HEENT: Symmetric erythematous rash/malar rash distribution with area of bulging infraorbital area bilaterally with very small area of discharge where the patient has been picking on her skin. Heart: Regular rate Lungs clear to auscultation bilaterally abdomen soft nontender nondistended Extremities no edema Neurologically nonfocal Skin see HEENT exam Psych: Cooperative Results - Hospitalist H&P Lab Results Labs: Laboratory Last Values Corrected WBC 8.7 X10E3/uL (3.8-11.6) 05/29/23 13:36 Uncorrected WBC Count 8.7 x10E3/uL (3.8-11.6) 05/29/23 13:36 RBC 3.82 X10E6/uL (3.60-5.00) 05/29/23 13:36 Hgb 11.8 g/dL (11.8-15.4) 05/29/23 13:36 Hct 35.6 % (34.0-46.4) 05/29/23 13:36 MCV 93.2 fl (80-100) 05/29/23 13:36 MCH 31.0 pg (24.7-34.3) 05/29/23 13:36 MCHC 33.2 g/dL (32.0-35.0) 05/29/23 13:36 RDW 13.7 % (11.9-15.3) 05/29/23 13:36 Plt Count 403 x10E3/uL (150-450) 05/29/23 13:36 MPV 6.4 fl (6.3-10.7) 05/29/23 13:36 Neut % (Auto) N/A 05/29/23 13:36 Lymph % (Auto) N/A 05/29/23 13:36 [place] % (Auto) N/A 05/29/23 13:36 Eos % (Auto) N/A 05/29/23 13:36 Baso % (Auto) N/A 05/29/23 13:36 Nucleat RBC Rel Count N/A 05/29/23 13:36 Neut # (Auto) N/A 05/29/23 13:36 Lymph # (Auto) N/A 05/29/23 13:36 [place] # (Auto) N/A 05/29/23 13:36 Eos # (Auto) N/A 05/29/23 13:36 Baso # (Auto) N/A 05/29/23 13:36 Band Neutrophils % 1 % (0-5) 05/29/23 13:36 Lymphocytes % 23 % (18-42) 05/29/23 13:36 Monocytes % 1 % (2-11) L 05/29/23 13:36 Metamyelocytes % 4 % (0-0) H 05/29/23 13:36 Myelocytes % 12 % (0-0) H 05/29/23 13:36 Segmented Neutrophils 59 % (50-70) 05/29/23 13:36 Monocyte Dist Width 18.14 % (0.00-20.00) 05/29/23 13:36 Platelet Estimate Normal (Normal) 05/29/23 13:36 Plt Morphology Comment Normal (Normal) 05/29/23 13:36 RBC Morphology N/A 05/29/23 13:36 Polychromasia Slight 05/29/23 13:36 Hypochromasia Slight 05/29/23 13:36 Anisocytosis Slight 05/29/23 13:36 PHA Creatinine Clear 149.21 05/29/23 13:36 Sodium 134 mmol/L (136-145) L 05/29/23 13:36 Potassium 4.0 mmol/L (3.5-5.1) 05/29/23 13:54 Chloride 99 mmol/L (98-107) 05/29/23 13:36 Carbon Dioxide 24.6 mmol/L (21.0-31.0) 05/29/23 13:36 Anion Gap TNP 05/29/23 13:36 BUN 11 mg/dL (7-25) 05/29/23 13:36 Creatinine 0.55 mg/dL (0.60-1.20) L 05/29/23 13:36 Est GFR (CKD-EPI) > 60.0 mL/Min 05/29/23 13:36 Glucose 163 mg/dL (70-100) H 05/29/23 13:36 Lactic Acid 3.0 mmol/L (0.5-2.2) H* 05/29/23 13:54 Calcium 9.0 mg/dL (8.6-10.3) 05/29/23 13:36 Slides for Path Review Ordered path review 05/29/23 13:36 Assessment & Plan Assessment/Plan (1) Periorbital cellulitis: Plan This is a 37-year-old female with MRDD who presents to the hospital with worsening facial erythema that seems to be very symmetric pattern, initially concerning for periorbital cellulitis where she was hospitalized at [facility] and treated with IV antibiotics and discharged on doxycycline. -Will observe the patient to medical floor -Will cover the patient with antibiotics for possible periorbital cellulitis although in my opinion rash is very symmetric and consistent with malar rash/inflammation versus allergic reaction rather than infection which has caused her to have itching and pain and she has been picking on it likely causing superficial infection/impetigo. Follow-up blood culture obtained in the emergency room -Will review home medication and order as appropriate once reconciled by RN/pharmacist -As needed Benadryl for itching and triamcinolone to skin -Check GHULAM -Monitor for any signs of orbital cellulitis including but not limited to pain with eye movement, fever, proptosis. These are not present at this time. -Discussed plan of care with caregiver -Full code -Regular diet -DVT prophylaxis-subcu Lovenox IP vs OBS Justification Based on differential dx, clinical care plan, and risk of adverse events, if untreated, in my clinical judgement this patient requires an acute care setting as: OBSERVATION because of an expectation of an under 2 midnight stay. Estimated length of stay (# of days): 36 Documented By: Arvind Regan DO 05/29/23 1600 Signed By: <Electronically signed by Arvind Regan > 05/29/23 1612 [facility] Work Phone: [phone] 495-179904-03-2024 Miscellaneous Notes* Telephone Encounter - Cesiarocky Lang - 05/25/2023 11:38 AM EDT Called and scheduled new pt appt with nurse from [facility] [place] [place] Labs ordered and faxed to facility. documented in this encounterHenry County HospitalSeatSwapr [id number] Telephone encounter Note* Telephone Encounter - Cesia Lang - 05/25/2023 11:38 AM EDT Called and scheduled new pt appt with nurse from [facility] [place] [place] Labs ordered and [facility] facility[id number] History of Present illness Narrative* Scarlett Albarran DDS - 06/10/2022 1:29 PM EDT ----- , June 10, 2022 at 3:52:48 PM ----- ----- Provider: Resident Florencio -- Clinic: [place] ----- OR EVALUATION Patient [...] treatment in the OR was sent out [phone] NOTE: Note: Pt seen in the OR about 2 years ago. Next Visit: OR ----- Signed on May at 4:11:20 PM ----- ----- Provider: Satinder - Og Obrien DDS -- Clinic: [place] ----- documented in this encounterMetroHealthEvaluation + Plan note No data available for this section [facility]* Diagnosis Hyponatremia- Primary Hyposmolality and/or hyponatremia documented in this encounter [facility]* Diagnosis Onset Date Resolution Status Periorbital cellulitis acute [facility] Work Phone: Evaluation note* Diagnosis Onset Date Resolution Status Bipolar disorder acute Failure of outpatient treatment acute Hypercholesterolemia acute Hypertension acute Moderate intellectual disability acute Periorbital cellulitis acute PTSD (post-traumatic stress disorder) acute Seizure disorder acute [facility] Work Phone: History and physical note Author Arvind Regan [facility] May 29, 2023 4:12pm Note Date/Time May 29, 2023 4:01 pm [facility] [address] [place] [address] Hospitalist H&P Signed Patient: Migdalia Card MR#: [id number] : 1985 Acct:[id number] Age/Sex: 37 / F Adm Date: 4 Loc: 4N Room: [address] [place] [address] Type: ADM INOo Attending Dr: Arvind Regan DO Copies to: NON STAFF Arvind Regan DO~ HPI DATE OF EXAMINATION: 05/29/23 CHIEF COMPLAINT: Concern for worsening facial cellulitis HISTORY OF PRESENT ILLNESS: This is a 37-year-old female with MRDD who lives in a halfway who presents [facility] ER with her caregiver with concern for worsening facial cellulitis. Patient was just discharged from [facility] on Tuesday after being treated for periorbital cellulitis. She was discharged home with doxycycline p.o. which she has been taking as per caregiver. Caregiver noticed worsening erythema. Patient has been picking on her skin on the face. She reports that it is itching. Patient is a poor historian due to MRDD but she is able to answer some of my questions. History provided by caregiver by discussion with ER provider and review of medical chart. Patient reports erythema and swelling around her eyes bilaterally. She denies pain with extraocular movement. No changes in vision. No fever. No nausea vomiting or abdominal pain. Review of Systems Review of Systems All other systems reviewed & are negative unless noted below or in HPI [facility] Medical History (Updated 05/29/23 @ 16:10 by Arvind Regan DO) Bursitis of right patella Pineal gland cyst Astigmatism Hypercholesterolemia Mood disorder Hormone imbalance Constipation GERD (gastroesophageal reflux disease) Seasonal allergies Hypertension Seizure disorder Pituitary microadenoma Osteopenia Hyperopia Bipolar disorder PTSD (post-traumatic stress disorder) Dissociative disorder Impulse control disorder, unspecified OCD (obsessive compulsive disorder) ADHD Moderate intellectual disability Surgical History (Updated 05/29/23 @ 13:27 by Candelaria Akbar RN) Hx of cholecystectomy Social History Smoking Status: Never smoker Substance Use Type: None Meds Medications and Allergies Allergies amoxicillin Allergy (Unknown, Verified 05/29/23 13:05) Unknown Reaction aripiprazole [From Abilify] Allergy (Unknown, Verified 05/29/23 13:05) Unknown Reaction chlorpheniramine [From Vicks DayQuil] Allergy (Unknown, Verified 05/29/23 13:05) Unknown Reaction dextromethorphan [From Vicks DayQuil] Allergy (Unknown, Verified 05/29/23 13:05) Unknown Reaction divalproex sodium [From Depakote] Allergy (Unknown, Verified 05/29/23 13:05) Unknown Reaction guaifenesin [From Vicks DayQuil] Allergy (Unknown, Verified 05/29/23 13:05) Unknown Reaction metyrosine Allergy (Unknown, Verified 05/29/23 13:05) Unknown Reaction molindone [From Moban] Allergy (Unknown, Verified 05/29/23 13:05) Unknown Reaction phenylpropanolamine [From Vicks DayQuil] Allergy (Unknown, Verified 05/29/23 13:05) Unknown Reaction pseudoephedrine [From Vicks DayQuil] Allergy (Unknown, Verified 05/29/23 13:05) Unknown Reaction sympathomimetics Allergy (Unknown, Uncoded 05/29/23 13:05) Unknown Reaction Home Medications atomoxetine 40 mg capsule 40 mg PO QPM 05/29/23 [History Confirmed 05/29/23] atomoxetine 60 mg capsule 60 mg PO QAM 05/29/23 [History Confirmed 05/29/23] calcium carbonate 300 mg (750 mg) chewable tablet (Tums) 600 mg PO Q4HR PRN dyspepsia 05/29/23 [History Confirmed 05/29/23] calcium carbonate 600 mg-vitamin D3 5 mcg (200 unit) capsule (Calcium 600 + D(3)) 1 cap PO BID 05/29/23 [History Confirmed 05/29/23] calcium polycarbophil 625 mg tablet (Fiber-Lax) 1,250 mg PO DAILY 05/29/23 [History Confirmed 05/29/23] carbamazepine 400 mg tablet,extended release,12 hr 400 mg PO QPM 05/29/23 [History Confirmed 05/29/23] clonidine HCl 0.2 mg tablet 0.2 mg PO TID 05/29/23 [History Confirmed 05/29/23] diazepam 5 mg tablet 5 mg PO DIRECTED 05/29/23 [History Confirmed 05/29/23] dicyclomine 20 mg tablet 20 mg PO BID 05/29/23 [History Confirmed 05/29/23] docusate sodium 100 mg capsule 200 mg PO BID 05/29/23 [History Confirmed 05/29/23] doxycycline hyclate 100 mg capsule 100 mg PO BID 05/29/23 [History Confirmed 05/29/23] fenofibrate 120 mg tablet 120 mg PO HS 05/29/23 [History Confirmed 05/29/23] fluorouracil 5 % topical cream (Efudex) 1 applic topical BID 05/29/23 [History Confirmed 05/29/23] fluticasone propionate 50 mcg/actuation nasal spray,suspension (24 Hour Allergy Relief) 2 spray intranasal DAILY PRN allergy symptoms 05/29/23 [History Confirmed 05/29/23] guanfacine 2 mg tablet 2 mg PO TID 05/29/23 [History Confirmed 05/29/23] ibuprofen 200 mg tablet (Advil) 400 mg PO DIRECTED PRN pain 05/29/23 [History Confirmed 05/29/23] lamotrigine 100 mg tablet (Lamictal) 100 mg PO HS 05/29/23 [History Confirmed 05/29/23] lamotrigine 150 mg tablet (Lamictal) 300 mg PO HS 05/29/23 [History Confirmed 05/29/23] lamotrigine 200 mg tablet (Lamictal) 200 mg PO QAM 05/29/23 [History Confirmed 05/29/23] levonorgestrel-ethinyl estradiol 0.1 mg-20 mcg tablet (Falmina (28)) 1 tab PO DAILY 05/29/23 [History Confirmed 05/29/23] loperamide 2 mg tablet (Anti-Diarrheal (loperamide)) 4 mg PO DIRECTED PRN loose stool 05/29/23 [History Confirmed 05/29/23] loratadine 10 mg tablet (Allerclear) 10 mg PO DAILY 05/29/23 [History Confirmed 05/29/23] metoprolol tartrate 100 mg tablet 100 mg PO QID 05/29/23 [History Confirmed 05/29/23] montelukast 10 mg tablet 10 mg PO DAILY 05/29/23 [History Confirmed 05/29/23] naphazoline 0.012 %-glycerin 0.2 % eye drops (Redness Relief) 2 drp ophthalmic (eye) TID PRN dry eye(s) 05/29/23 [History Confirmed 05/29/23] olanzapine 10 mg tablet 10 mg PO QHS 05/29/23 [History Confirmed 05/29/23] olanzapine 20 mg tablet 20 mg PO QHS 05/29/23 [History Confirmed 05/29/23] omeprazole 20 mg capsule,delayed release 20 mg PO DAILY 05/29/23 [History Confirmed 05/29/23] ondansetron 4 mg disintegrating tablet 4 mg PO Q6HR PRN nausea and vomiting 05/29/23 [History Confirmed 05/29/23] paliperidone 6 mg tablet,extended release 24 hr 6 mg PO BID 05/29/23 [History Confirmed 05/29/23] prednisone 50 mg tablet 50 mg PO DAILY 05/29/23 [History Confirmed 05/29/23] sennosides 8.6 mg capsule (senna) 17.2 mg PO BID PRN constipation 05/29/23 [History Confirmed 05/29/23] sodium chloride 0.65 % nasal spray aerosol (Altamist) 1 spray intranasal DIRECTED PRN nasal congestion 05/29/23 [History Confirmed 05/29/23] white petrolatum (Petroleum Jelly topical) 1 applic topical BID PRN dry skin 05/29/23 [History Confirmed 05/29/23] Exam Physical Exam Vital Signs: Temp Pulse Resp BP Pulse Ox O2 Del Method 98.1 F 90 18 180/88 H 96 Room Air 05/29/23 15:48 05/29/23 15:48 05/29/23 15:48 05/29/23 15:48 05/29/23 15:48 05/29/23 15:48 Narrative: Generally: No acute distress, nontoxic appearing. Noted to be picking at her skin during my exam. HEENT: Symmetric erythematous rash/malar rash distribution with area of bulging infraorbital area bilaterally with very small area of discharge where the patient has been picking on her skin. Heart: Regular rate Lungs clear to auscultation bilaterally abdomen soft nontender nondistended Extremities no edema Neurologically nonfocal Skin see HEENT exam Psych: Cooperative Results - Hospitalist H&P Lab Results Labs: Laboratory Last Values Corrected WBC 8.7 X10E3/uL (3.8-11.6) 05/29/23 13:36 Uncorrected WBC Count 8.7 x10E3/uL (3.8-11.6) 05/29/23 13:36 RBC 3.82 X10E6/uL (3.60-5.00) 05/29/23 13:36 Hgb 11.8 g/dL (11.8-15.4) 05/29/23 13:36 Hct 35.6 % (34.0-46.4) 05/29/23 13:36 MCV 93.2 fl (80-100) 05/29/23 13:36 MCH 31.0 pg (24.7-34.3) 05/29/23 13:36 MCHC 33.2 g/dL (32.0-35.0) 05/29/23 13:36 RDW 13.7 % (11.9-15.3) 05/29/23 13:36 Plt Count 403 x10E3/uL (150-450) 05/29/23 13:36 MPV 6.4 fl (6.3-10.7) 05/29/23 13:36 Neut % (Auto) N/A 05/29/23 13:36 Lymph % (Auto) N/A 05/29/23 13:36 [place] % (Auto) N/A 05/29/23 13:36 Eos % (Auto) N/A 05/29/23 13:36 Baso % (Auto) N/A 05/29/23 13:36 Nucleat RBC Rel Count N/A 05/29/23 13:36 Neut # (Auto) N/A 05/29/23 13:36 Lymph # (Auto) N/A 05/29/23 13:36 [place] # (Auto) N/A 05/29/23 13:36 Eos # (Auto) N/A 05/29/23 13:36 Baso # (Auto) N/A 05/29/23 13:36 Band Neutrophils % 1 % (0-5) 05/29/23 13:36 Lymphocytes % 23 % (18-42) 05/29/23 13:36 Monocytes % 1 % (2-11) L 05/29/23 13:36 Metamyelocytes % 4 % (0-0) H 05/29/23 13:36 Myelocytes % 12 % (0-0) H 05/29/23 13:36 Segmented Neutrophils 59 % (50-70) 05/29/23 13:36 Monocyte Dist Width 18.14 % (0.00-20.00) 05/29/23 13:36 Platelet Estimate Normal (Normal) 05/29/23 13:36 Plt Morphology Comment Normal (Normal) 05/29/23 13:36 RBC Morphology N/A 05/29/23 13:36 Polychromasia Slight 05/29/23 13:36 Hypochromasia Slight 05/29/23 13:36 Anisocytosis Slight 05/29/23 13:36 PHA Creatinine Clear 149.21 05/29/23 13:36 Sodium 134 mmol/L (136-145) L 05/29/23 13:36 Potassium 4.0 mmol/L (3.5-5.1) 05/29/23 13:54 Chloride 99 mmol/L (98-107) 05/29/23 13:36 Carbon Dioxide 24.6 mmol/L (21.0-31.0) 05/29/23 13:36 Anion Gap TNP 05/29/23 13:36 BUN 11 mg/dL (7-25) 05/29/23 13:36 Creatinine 0.55 mg/dL (0.60-1.20) L 05/29/23 13:36 Est GFR (CKD-EPI) > 60.0 mL/Min 05/29/23 13:36 Glucose 163 mg/dL (70-100) H 05/29/23 13:36 Lactic Acid 3.0 mmol/L (0.5-2.2) H* 05/29/23 13:54 Calcium 9.0 mg/dL (8.6-10.3) 05/29/23 13:36 Slides for Path Review Ordered path review 05/29/23 13:36 Assessment & Plan Assessment/Plan (1) Periorbital cellulitis: Plan This is a 37-year-old female with MRDD who presents to the hospital with worsening facial erythema that seems to be very symmetric pattern, initially concerning for periorbital cellulitis where she was hospitalized at [facility] and treated with IV antibiotics and discharged on doxycycline. -Will observe the patient to medical floor -Will cover the patient with antibiotics for possible periorbital cellulitis although in my opinion rash is very symmetric and consistent with malar rash/inflammation versus allergic reaction rather than infection which has caused her to have itching and pain and she has been picking on it likely causing superficial infection/impetigo. Follow-up blood culture obtained in the emergency room -Will review home medication and order as appropriate once reconciled by RN/pharmacist -As needed Benadryl for itching and triamcinolone to skin -Check GHULAM -Monitor for any signs of orbital cellulitis including but not limited to pain with eye movement, fever, proptosis. These are not present at this time. -Discussed plan of care with caregiver -Full code -Regular diet -DVT prophylaxis-subcu Lovenox IP vs OBS Justification Based on differential dx, clinical care plan, and risk of adverse events, if untreated, in my clinical judgement this patient requires an acute care setting as: OBSERVATION because of an expectation of an under 2 midnight stay. Estimated length of stay (# of days): 36 Documented By: Arvind Regan DO 05/29/23 1600 Signed By: <Electronically signed by Arvind Regan DO> 05/29/23 161 [facility] Work Phone: Hospital Discharge instructions No data available for this section [facility] Additional Instructions DO continue to finish all of the antibiotic pills that was prescribed by Di: Doxycycline. DO NOT take any of the prednisone that was prescribed by Di. This is not needed anymore. DO take the extra antibiotic we are sending home at this time: Avelox.[facility] Work Phone: InstructionsNot on filedocumented in this encounter [facility]Progress note No data available for this section [facility] Summary Purpose Family History No Family History Records FoundNo Family History Records FoundNo Family History Records Found No data available for this section No data available for this section No Family History Records FoundNo Family History Records FoundNo Family History Records FoundNo Family History Records Found Advance Directives No Advanced Directives Records Found Advance Directive Response Recorded Date/ Time Advance Directives No May 28 1:57pm Chief Complaint and Reason for Visit Chief Complaint Cellulitis on face Cellulitis on face Reason for Visit Periorbital cellulit is Chief Complaint Cellulitis on face Cellulitis on face Reason for Visit Bipolar disorder Failure of outpatient treatment Hypercholesterolemia Hypertension Moderate intellectual disability Periorbital cellulitis PTSD (post-traumatic stress disorder) Seizure disorder Additional Source Comments INFORMATION SOURCE (unrecogn ized section and content) DATE CREATED AUTHOR 05/12/2018 [facility] DATE CREATED AUTHOR AUTHOR'S ORGANIZ ATION 06/17/2022 [facility] DATE CREATED AUTHOR AUTHOR'S ORGANIZ ATION 07/30/2022 [facility] DATE CREATED AUTHOR AUTHOR'S ORGANIZ ATION 04/21/2023 [facility] DATE CREATED AUTHOR AUTHOR'S ORGANIZ ATION 06/06/2023 [facility] DATE CREATED AUTHOR AUTHOR'S ORGANIZ ATION 06/08/2023 [facility] EPIC DATE CREATED AUTHOR AUTHOR'S ORGANIZ ATION 06/10/2023 [facility] Patient Care team informatio n (unrecognized section and content) Team Status: Active Member Role Status Dates Lio Munroe DO Primary Care Provider Active Team Status: Active Member Role Status Dates NON STAFF Primary Care Provider Active Start: May 29, 2023 Venita Amanda APRN Emergency Provider Active Start: May 29, 2023 Arvind Poncein , DO Admit Provider, Atte nding Provider, Other Provider Active Start: May 29, 2023 Team Status: Inactive Member Role Status Dates Venita Amanda APRN Emergency Provider Active Start: May 30, 2023 End: June 01, 2023 Maddieneyda Poncein , DO Admit Provider Active Start: May 30, 2023 End: June 01, 2023 Rico Romero , DO Attending Provider Active Start: May 30, 2023 End: June 01, 2023 Lio Munroe DO Primary Care Provider Active Start: May 30, 2023 End: June 01, 2023 Team Status: Active Member Role Status Dates NON STAFF Primary Care Provider Active Team Status: Active Member Role Status Dates NON STAFF Primary Care Provider Active Start: May 29, 2023 Venita Amanda APRN Emergency Provider Active Start: May 29, 2023 Maddieneyda Regan , DO Admit Provider, Atte nding Provider Active Start: May 29, 2023 Goals (unrecognized section and content) Goals may be documented in a n alternate section FOR RECORDS PERTAINING TO PATIENTS WHO ARE [...] BE BASED ON THE PRIMARY CLINICAL RECORDS. [employer] provides no warranty or guarantee of the accuracy or completeness of information in this document.
[2023-06-16 09:01] LABS: Valproic Acid <3.0 ug/mL (50.0-100.0)
[2023-06-20 15:08] LABS: Lamotrigine (Lamictal), Serum 6.6 ug/mL (2.0-20.0)
== END 2023-06-16 06:35 | disposition home or self-care (01) ==
LOC: LAB 06:36
PROVIDERS: PCP Family Medicine; Visit Provider Family Medicine
DX: G40.909 Epilepsy, unspecified, not intractable, without status epilepticus (principal); Z79.899 Other long term (current) drug therapy
CPT/HCPCS: 36415; 80164; 80175

== ENCOUNTER 2023-07-14 08:04 | Outpatient (OUT) | payer MEDICARE, MEDICAID, SELFPAY ==
[2023-07-14 08:48] LABS: Basophils Absolute Auto 0.1 10^3/uL (0.0-0.1); Eosinophils Absolute Auto 0.1 10^3/uL (0.0-0.7); Eosinophils Percent Auto 2.9 % (0.9-7.0); Hematocrit 37.4 % (36.0-48.0); Hemoglobin 12.8 g/dL (12.0-16.0); Immature Granulocytes Abs Auto 0.04 10^3/uL (0.00-0.03); Immature Granulocytes Pct Auto 0.8 % (0.0-0.5); Lymphocytes Absolute Auto 1.8 10^3/uL (1.2-3.8); Lymphocytes Percent Auto 36.2 % (20.5-60.0); Mean Corpuscular HGB Conc 34.2 g/dL (29.9-35.2); Mean Corpuscular Hemoglobin 31.6 pg (26.7-34.0); Mean Corpuscular Volume 92.3 fL (81.0-99.0); Mean Platelet Volume 8.6 fL (9.5-13.5); Monocytes Absolute Auto 0.6 10^3/uL (0.3-0.8); Neutrophils Absolute Auto 2.2 10^3/uL (1.4-6.5); Neutrophils Percent Auto 46.1 % (43.0-75.0); Platelet Count 324 10^3/uL (150-450); Red Blood Count 4.05 10^6/uL (4.20-5.40); Red Cell Distribution Width 12.9 % (11.0-15.0); White Blood Count 4.8 10^3/uL (4.0-11.0)
[2023-07-14 08:49] LABS: Bilirubin Urine NEGATIVE (NEGATIVE); Blood Urine NEGATIVE (NEGATIVE); Clarity Urine CLEAR (CLEAR); Color Urine LT. YELLOW (YELLOW); Glucose Urine UA NEGATIVE (NEGATIVE); Ketones Urine NEGATIVE (NEGATIVE); Leukocyte Esterase Urine NEGATIVE (NEGATIVE); Nitrite Urine NEGATIVE (NEGATIVE); Protein Urine NEGATIVE (NEG/TRACE); Urobilinogen Urine 0.2 EU/dL (0.2-1.0)
[2023-07-14 09:18] LABS: Urine Microscopic Indicated NO
[2023-07-14 10:06] LABS: Anion Gap 13.8; BUN Creatinine Ratio 18.8; Calcium 9.6 mg/dL (8.5-10.1); Carbon Dioxide 27.3 mmol/L (21.0-32.0); Chloride 98 mmol/L (98-107); Estimated GFR (African America >60 (>=60); Estimated GFR (Non-African Ame >60 (>=60); Glucose 91 mg/dL (74-106); Magnesium 1.9 mg/dL (1.8-2.4); Phosphorus 4.1 mg/dL (2.6-4.7); Potassium 4.1 mmol/L (3.5-5.1); Sodium 135 mmol/L (136-145)
[2023-07-14 11:01] LABS: Creatinine Urine Random 18.54 mg/dL (20.00-300.00); Total Protein Urine Random <6.0 mg/dL (<=11.9)
== END 2023-07-14 08:05 | disposition home or self-care (01) ==
LOC: LAB 08:06
PROVIDERS: PCP Family Medicine; Visit Provider Family Medicine
DX: R79.89 Other specified abnormal findings of blood chemistry (principal); G40.909 Epilepsy, unspecified, not intractable, without status epilepticus; M85.80 Other specified disorders of bone density and structure, unspecified site; Z79.899 Other long term (current) drug therapy
CPT/HCPCS: 36415; 80048; 81003; 82570; 83735; 84100; 84156; 85025

== ENCOUNTER 2023-08-17 08:06 | Outpatient (OUT) | payer MEDICARE, MEDICAID, SELFPAY ==
[2023-08-17 08:44] LABS: Basophils Absolute Auto 0.1 10^3/uL (0.0-0.1); Basophils Percent Auto 1.1 % (0.2-2.0); Eosinophils Absolute Auto 0.2 10^3/uL (0.0-0.7); Eosinophils Percent Auto 3.5 % (0.9-7.0); Hematocrit 35.7 % (36.0-48.0); Hemoglobin 11.9 g/dL (12.0-16.0); Immature Granulocytes Abs Auto 0.05 10^3/uL (0.00-0.03); Immature Granulocytes Pct Auto 0.9 % (0.0-0.5); Lymphocytes Absolute Auto 2.3 10^3/uL (1.2-3.8); Mean Corpuscular HGB Conc 33.3 g/dL (29.9-35.2); Mean Corpuscular Hemoglobin 30.7 pg (26.7-34.0); Mean Corpuscular Volume 92.2 fL (81.0-99.0); Mean Platelet Volume 8.4 fL (9.5-13.5); Monocytes Absolute Auto 0.7 10^3/uL (0.3-0.8); Monocytes Percent Auto 11.4 % (1.7-12.0); Neutrophils Absolute Auto 2.5 10^3/uL (1.4-6.5); Neutrophils Percent Auto 43.1 % (43.0-75.0); Platelet Count 442 10^3/uL (150-450); Red Blood Count 3.87 10^6/uL (4.20-5.40); Red Cell Distribution Width 12.3 % (11.0-15.0); White Blood Count 5.7 10^3/uL (4.0-11.0)
[2023-08-17 09:18] LABS: Creatinine Urine Random 18.24 mg/dL (20.00-300.00); Sodium Urine Random 67 mmol/L (30-90)
[2023-08-17 11:13] LABS: Free T4 0.76 ng/dL (0.76-1.46)
[2023-08-17 11:16] LABS: Alanine Aminotransferase 44 U/L (14-59); Albumin Globulin Ratio 0.8; Albumin Level 3.8 g/dL (3.4-5.0); Alkaline Phosphatase 51 U/L (46-116); Anion Gap 12.7; Aspartate Amino Transferase 22 U/L (15-37); BUN Creatinine Ratio 16.9; Bilirubin Total 0.3 mg/dL (0.2-1.0); Calcium 9.4 mg/dL (8.5-10.1); Carbon Dioxide 27.4 mmol/L (21.0-32.0); Chloride 102 mmol/L (98-107); Chol HDL Ratio 2.6; Cholesterol 192 mg/dL (<=200); Estimated GFR (African America >60 (>=60); Estimated GFR (Non-African Ame >60 (>=60); Globulin 4.8 g/dL; Glucose 103 mg/dL (74-106); HDL Cholesterol 74 mg/dL (40-60); Potassium 4.1 mmol/L (3.5-5.1); Sodium 138 mmol/L (136-145); Thyroid Stimulating Hormone 1.895 uIU/mL (0.358-3.740); Total Protein 8.6 g/dL (6.4-8.2); Triglycerides 122 mg/dL (<=150); VLDL CHOLESTEROL 24.4 mg/dL
[2023-08-19 16:09] LABS: Osmolality, Urine 300 mOsmol/kg (.)
[2023-08-19 16:09] LABS: Lamotrigine (Lamictal), Serum 5.8 ug/mL (2.0-20.0)
== END 2023-08-17 08:07 | disposition home or self-care (01) ==
LOC: LAB 08:07
PROVIDERS: PCP Family Medicine; Visit Provider Family Medicine
DX: E78.00 Pure hypercholesterolemia, unspecified (principal); Z79.899 Other long term (current) drug therapy
CPT/HCPCS: 36415; 80053; 80061; 80175; 82533; 82570; 83935; 84300; 84439; 84443; 84550; 85025

== ENCOUNTER 2023-10-21 13:37 | Outpatient (OUT) | payer MEDICARE, MEDICAID, SELFPAY ==
--- OUTSIDE RECORDS SUMMARY | 2023-10-21 13:52 | XMS_ITS | CCD ---
Author Organization [facility] Care Team Providers Care Operating Table Assembler Name Role Phone SYSTEM, PROVIDER NOT IN Admitting Unavaila ble SYSTEM, PROVIDER NOT IN Referring Unavaila ble EVANS KILGORE Primary Care Unavailable Unavailable Primary Care Provider Unavailabl e MUNROE, DR LIO Gates Consulting Unavailable MUNROE, [...] MUNROE, DR LIO Gates Primary Care Unavailable LIO MUNROE Primary Care Physician LIO MUNROE Attending Unavailable MUNROE, LIO Admitting Unavailable MUNROE, LIO Attending Unavailable MUNROELIO Admitting Unavailable Unavailable Primary Care Provider Unavailabl e NON STAFF Primary Care Provider Unavailabl e IMAN Amanda Emergency Provider DO Jass Yaneyda Admit Provider DO Arvind Regan Attending Provider IMAN Amanda Emergency Provider Jass DO Yazid Admit Provider DO Rico Romero Attending Provider DO Lio Munroe Primary Care Provider [phone] KAMINI RAMIREZ Attending Unavailable KAMINI RAMIREZ Attending Unavailable KAMINI RAMIREZ Attending Unavailable KAMINI RAMIREZ Attending Unavailable DAMIEN JONES Attending Unavailable KAMINI RAMIREZ Attending Unavailable DO Titi Terry Emergency Provider Titi Naranjo Attending Unavailable Lio Munroe Primary Care Unavailable Titi Terry Admitting Unavailable Maddie Reganneyda Admitting Unavailable Rico Romero Attending UnavailLio Guevara Primary Care Unavailable PROVIDER, UNKNOWN Admitting Unavailable LIZANDRO PLATA Attending Unavailable Allergies Allergy Classification Reported Allergen(s) Allergy Type Date of Onset Reaction(s) Facility Adrenergic Agonists (1 source) Pseudoephedrine Drug Allergy 024 Unknown Reaction [facility] ARIPiprazole (1 source) ARIPiprazole Drug Allergy 024 Unknown Reaction [facility] Chlorpheniramine (1 source) Chlorpheniramine Drug Allergy 024 Unknown Reaction [facility] Dextromethorphan (1 source) Dextromethorphan Drug Allergy 024 Unknown Reaction [facility] guaiFENesin (1 source) guaiFENesin Drug Allergy 024 Unknown Reaction [facility] metyroSINE (1 source) metyroSINE Drug Allergy 024 Unknown Reaction [facility] Molindone (1 source) Molindone Drug Allergy 024 Unknown Reaction [facility] Penicillins (antibiotic) (1 source) Amoxicillin Drug Allergy 024 Unknown Reaction [facility] Phenylpropanolamine (1 source) Phenylpropanolamine Drug Allergy 024 Unknown Reaction [facility] Valproate (1 source) Valproate Drug Allergy 024 Unknown Reaction [facility] (6 sources) Amoxicillin; Translations: [AMOXICILLIN] Drug Allergy 013 Unknown Reaction [facility] (5 sources) ARIPiprazole; Translations: [Abilify] Drug Allergy 013 [facility] Work Phone: (4 sources) Dextromethorphan; Translations: [DEXTROMETHORPHAN HBR] Drug Allergy [facility] (6 sources) metyroSINE; Translations: [METYROSINE] Drug Allergy 04-19-2 013 Unknown Reaction [facility] (6 sources) Molindone; Translations: [MOLINDONE] Drug Allergy Unknown Reaction [facility] (4 sources) Nalbuphine; Translations: [NALBUPHINE] Drug Allergy [facility] (4 sources) Valproate; Translations: [VALPROIC ACID] Drug Allergy [facility] (4 sources) Food; Translations: [FOOD] Propensity to adverse reactions to drug [facility] (7 sources) Sympathomimetics; Translations: [SYMPATHOMIMETICS] Propensity to adverse reactions to drug Unknown Reaction [facility] (1 source) Amoxicillin Drug Allergy [facility] (1 source) metyroSINE Drug Allergy [facility] (1 source) Molindone Drug Allergy [facility] (1 source) Nalbuphine Drug Allergy [facility] (1 source) Valproate Drug Allergy [facility] (1 source) [address] [employer] Drug allergy (disorder) [facility] (2 sources) ARIPiprazole Drug Allergy Unknown Reaction [facility] (2 sources) Chlorpheniramine Drug Allergy Unknown Reaction [facility] (2 sources) Dextromethorphan Drug Allergy Unknown Reaction [facility] (2 sources) guaiFENesin Drug Allergy Unknown Reaction [facility] (2 sources) Phenylpropanolamine Drug Allergy 024 Unknown Reaction [facility] (2 sources) Pseudoephedrine Drug Allergy 024 Unknown Reaction [facility] (2 sources) Valproate Drug Allergy Unknown Reaction [facility] Medications Current Medications Medication Drug Class(es) Dates Sig (Normalized) Sig (Original) acetaminophen 325 mg oral capsule (1 source) Start: 08-06-2023 take 650 mg by mouth twice daily Acetaminophen Active 650 MG PO Twice daily August 06, 2023 12:00am atomoxetine 40 mg oral capsule (6 sources) Norepinephrine Reuptake Inhibitor Start: 05-29-2023 take 40 mg by mouth once daily in the evening Atomoxetine Active 40 MG PO Every evening May 29, 2023 12:00am Start: 05-29-2023 take 60 mg by mouth once daily in the morning Atomoxetine Active 60 MG PO Every morning May 29, 2023 12:00am busPIRone hydrochloride 10 mg oral tablet (3 sources) take 1 tablet by mouth twice daily busPIRone (BUSPAR) 10 MG tablet Take 10 mg by mouth 2 times daily. Active calcium carbonate 750 mg chewable tablet (3 sources) Start: 05-29-2023 take 1 tablet by mouth every four hours Calcium Carbonate (Tums) 300 mg (750 mg) tablet,chewable Active 600 MG PO Every 4 hours May 29, 2023 12:00am calcium carbonate 1500 mg / cholecalciferol 200 unt oral capsule (3 sources) Vitamin D Start: 05-29-2023 take 1 capsule by mouth twice daily Calcium Carbonate-Vitamin D3 (Calcium 600 + D(3)) 600 mg-5 mcg (200 unit) capsule Active 1 CAP PO Twice daily May 29, 2023 12:00am calcium polycarbophil 625 mg oral tablet (6 sources) Start: 05-29-2023 Calcium Polycarbophil (Fiber-Lax) 625 mg tablet Active 1250 MG PO Daily May 29, 2023 12:00am Calcium Polycarb ophil (FIBER-LAX ORAL) Take by mouth. Active Calcium Polycarb ophil (FIBER-LAX ORAL) Take by mouth. 0 Active 12 hr carBAMazepine 400 mg extended release oral tablet (6 sources) Mood Stabilizer Start: 05-29-2023 take 200 mg by mouth three times daily Carbamazepine Active 200 MG PO Three times daily May 29, 2023 12:00am Start: 05-29-2023 take 400 mg by mouth once daily in the evening Carbamazepine Active 400 MG PO Every evening May 29, 2023 12:00am carbamazepine (T EGRETOL) 100 MG chewable tablet carbamazepine 100 mg chewable tablet Active clindamycin 300 mg oral capsule (1 source) Lincosamide Antibacterial Start: 07-14-2020 take 1 capsule by mouth three times daily clindamycin (CLEOCIN) 300 MG capsule Take 1 Capsule by mouth 3 times daily for 7 days. 21 Capsule 07/14/2020 Active cloNIDine hydrochloride 0.2 mg oral tablet (6 sources) Central alpha-2 Adrenergic Agonist Start: 06-12-2020 take 0.2 mg by mouth three times daily Clonidine Hcl Active 0.2 MG PO Three times daily May 29, 2023 12:00am dicyclomine hydrochloride 20 mg oral tablet (6 sources) Anticholinergic Start: 05-29-2023 take 20 mg by mouth twice daily Dicyclomine Active 20 MG PO Twice daily May 29, 2023 12:00am take 1 tablet by mouth every six hours dicyclomine (BENTYL) 20 MG tablet Take 20 mg by mouth every 6 hours. Active docusate sodium 100 mg oral capsule (7 sources) Start: 08-06-2023 take 1 capsule by mouth twice daily Docusate Sodium (Colace) 100 mg capsule Active 100 MG PO Twice daily 60 August 06, 2023 9:31pm Start: 05-29-2023 take 200 mg by mouth twice portia ly Docusate Sodium Active 200 MG PO Twice daily May 29, 2023 12:00am take 1 capsule by mo ut three times daily docusate sodium (COLACE) 100 MG capsule Take 100 mg by mouth 3 times daily. Active Levonorgestrel-Ethinyl Estrad (3 sources) Progestin, Estrogen, Progestin-containing Intrauterine Device Start: 05-29-2023 take 1 tablet by mouth once daily Levonorgestrel-Ethinyl Estrad (Falmina (28)) 0.1-20 mg-mcg tablet Active 1 TAB PO Daily May 29, 2023 12:00am fenofibrate 120 mg oral tablet (6 sources) Peroxisome Proliferator Receptor alpha Agonist Start: 05-29-2023 take 1 capsule by mouth at bedtime Fenofibrate Active 120 MG PO Bedtime May 29, 2023 12:00am 134 mg capsule take 1 capsule by mo [facility] once daily at breakfast fenofibrate micronized (LOFIBRA) 134 MG capsule Take 134 mg by mouth daily (with breakfast). Active fluticasone propionate 0.05 mg/actuat metered dose nasal spray (3 sources) Corticosteroid Start: 05-29-2023 take 1 spray(s) nasal route once daily Fluticasone Propionate (24 Hour Allergy Relief) 50 mcg/actuation spray,suspension Active 2 SPRAY INTRANASAL Daily May 29, 2023 12:00am administer into each nostril glycerin 2 mg/ml / naphazoline hydrochloride 0.12 mg/ml ophthalmic solution (3 sources) Non-Standardized Chemical Allergen Start: 05-29-2023 take 0.012-0.2 drop(s) into the eye(s) three times daily Naphazoline-Glycerin (Redness Relief) 0.012-0.2 % drops Active 2 DROPS OPHTHALMIC Three times daily May 29, 2023 12:00am guanFACINE 2 mg oral tablet (6 sources) Central alpha-2 Adrenergic Agonist Start: 05-29-2023 take 2 mg by mouth three times daily Guanfacine Active 2 MG PO Three times daily May 29, 2023 12:00am take 1.5 mg by mouth twice daily guanfacine (TENEX) 1 MG tablet Take 1.5 mg by mouth 2 times daily. Active ibuprofen 200 mg oral tablet (3 sources) Nonsteroidal Anti-inflammatory Drug Start: 05-29-2023 take 2 tablets by mouth every four to six hours Ibuprofen (Advil) 200 mg tablet Active 400 MG PO EVERY 4-6 HOURS May 29, 2023 12:00am Start: 05-29-2023 Ibuprofen (Adv il) 200 mg tablet Active 400 MG PO As Directed May 29, 2023 12:00am lamoTRIgine 200 mg oral tablet (12 sources) Mood Stabilizer, Anti-epileptic Agent Start: 05-29-2023 take 1 tablet by mouth at bedtime Lamotrigine (Lamictal) 100 mg tablet Active 100 MG PO Bedtime May 29, 2023 12:00am Start: 05-29-2023 Lamotrigine (L amictal) 150 mg tablet Active 300 MG PO Bedtime May 29, 2023 12:00am take with 100 mg tablet for total of 400 mg Start: 05-29-2023 take 1 tablet by kip th once daily in the morning Lamotrigine (Lamictal) 200 mg tablet Active 200 MG PO Every morning May 29, 2023 12:00am take 2 tablets by mo txh once daily lamotrigine (LAMICTAL) 25 MG tablet Take 50 mg by mouth daily. Active loperamide hydrochloride 2 mg oral tablet (3 sources) Opioid Agonist Start: 05-29-2023 Loperamide (Anti-Diarrheal (Loperamide)) 2 mg tablet Active 4 MG PO As Directed May 29, 2023 12:00am administer after each loose stool until symptoms controlled; do not exceed 8 mg per 24 hrs loratadine 10 mg oral tablet (6 sources) Start: 05-29-2023 take 1 tablet by mouth once daily Loratadine (Allerclear) 10 mg tablet Active 10 MG PO Daily May 29, 2023 12:00am metoprolol tartrate 100 mg oral tablet (6 sources) beta-Adrenergi c Molly Start: 05-29-2023 take 100 mg by mouth four times daily Metoprolol Tartrate Active 100 MG PO Four times daily May 29, 2023 12:00am take 1 tablet by mouth twice portia ly metoprolol (LOPRESSOR) 100 MG tablet Take 100 mg by mouth 2 times daily. Active montelukast 10 mg oral tablet (6 sources) Leukotriene Receptor Antagonist Start: 05-29-2023 take 10 mg by mouth once daily Montelukast Active 10 MG PO Daily May 29, 2023 12:00am naltrexone hydrochloride 50 mg oral tablet (3 sources) Opioid Antagonist take 1 tablet by mouth once daily naltrexone (DEPADE) 50 MG tablet Take 50 mg by mouth daily. Active OLANZapine 10 mg oral tablet (9 sources) Atypical Antipsychotic Start: 05-29-2023 Olanzapine Active [...] tablet Take 20 mg by mouth daily. Active omeprazole 20 mg delayed release oral capsule (6 sources) Proton Pump Inhibitor Start: 05-29-2023 take 20 mg by mouth once daily Omeprazole Active 20 MG PO Daily May 29, 2023 12:00am 24 hr paliperidone 6 mg extended release oral tablet (3 sources) Atypical Antipsychotic Start: 05-29-2023 take 6 mg by mouth twice daily Paliperidone Active 6 MG PO Twice daily May 29, 2023 12:00am petrolatum 1 mg/mg topical ointment (3 sources) Start: 05-29-2023 White Petrolatum (Petroleum Jelly) gel Active 1 APPLIC TOPICAL Twice daily May 29, 2023 12:00am twice a day and PRN until face is healed polyethylene glycol 3350 25691 mg powder for oral solution (1 source) Osmotic Laxative Start: 08-06-2023 Polyethylene Glycol 3350 (Miralax) 17 gram/dose powder Active 17 GM PO Twice daily August 06, 2023 12:00am mix into 4-8 oz. of any hot/cold/room temp. beverage; use immediately Psyllium Husk (Metamucil) 0.4 gram capsule (1 source) Start: 08-06-2023 Psyllium Husk (Metamucil) 0.4 gram capsule Active 0.4 GM PO Daily August 06, 2023 12:00am raNITIdine 150 mg oral tablet (3 sources) Histamine-2 Receptor Antagonist take 1 tablet by mouth twice daily ranitidine (ZANTAC) 150 MG tablet Take 150 mg by mouth 2 times daily. Active Sennosides (Senna) 8.6 mg capsule (3 sources) Start: 05-29-2023 take 2 capsules by mouth twice daily Sennosides (Senna) 8.6 mg capsule Active 17.2 MG PO Twice daily May 29, 2023 12:00am simethicone 250 mg oral capsule (1 source) Start: 08-06-2023 take 250 mg by mouth twice daily Simethicone Active 250 MG PO Twice daily 10 12August 06, 2023 12:00am sodium chloride 0.111 meq/ml nasal spray (3 sources) Start: 05-29-2023 Sodium Chloride (Altamist) 0.65 % aerosol,spray Active 1 SPRAY INTRANASAL As Directed May 29, 2023 12:00am 3-4 times a day as needed zolpidem tartrate 10 mg oral tablet (3 sources) gamma-Aminobutyric Acid-ergic Agonist Start: 06-10-2020 zolpidem (AMBIEN) 10 MG tablet 06/10/2020 Active Completed/Discontinued Medications Medication Drug Class(es) Dates Sig (Normalized) Sig (Original) diazePAM 5 mg oral tablet (3 sources) Benzodiazepine Start: 05-29-2023 End: 08-06-2023 take 5 mg by mouth once Diazepam Discontinued 5 MG PO As Directed May 29, 2023 12:00am August 06, 2023 9:27pm 1 hour prior to procedure doxycycline hyclate 100 mg oral capsule (3 sources) Tetracycline-class Drug Start: 05-29-2023 End: 08-06-2023 take 100 mg by mouth twice daily Doxycycline Hyclate Discontinued 100 MG PO Twice daily May 29, 2023 12:00am August 06, 2023 9:27pm x 10 days, started on 05/28/23 fluorouracil 50 mg/ml topical cream (3 sources) Nucleoside Metabolic Inhibitor Start: 05-29-2023 End: 08-06-2023 Fluorouracil (Efudex) 5 % cream Discontinued 1 APPLIC TOPICAL Twice daily May 29, 2023 12:00am August 06, 2023 9:27pm moxifloxacin 400 mg oral tablet (2 sources) Quinolone Antimicrobial Start: 06-01-2023 End: 08-06-2023 take 400 mg by mouth once daily Moxifloxacin Discontinued 400 MG PO Daily 5 5 June 01, 2023 12:00am August 06, 2023 9:27pm ondansetron 4 mg disintegrating oral tablet (3 sources) Serotonin-3 Receptor Antagonist Start: 05-29-2023 End: 06-01-2023 take 4 mg by mouth every six hours Ondansetron Discontinued 4 MG PO Every 6 hours May 29, 2023 12:00am June 01, 2023 12:13pm predniSONE 50 mg oral tablet (3 sources) Start: 05-29-2023 End: 06-01-2023 take 50 mg by mouth once daily Prednisone Discontinued 50 MG PO Daily May 29, 2023 12:00am June 01, 2023 12:13pm x5 days, started on 05/29/23 Problems Active Problems Problem Classification Problem Date Documented Da te Episodic/Chronic Abdominal pain (1 source) Abdominal pain; Translations: [Unspecified abdominal pain] 08-06-2023 Episodic Anxiety disorders (6 sources) Posttraumatic stress disorder; Translations: [Post-traumatic stress disorder, unspecified] Onset: 05-30-2023 05-29-2023 Chronic Attention-deficit, conduct, and disruptive behavior disorders (3 sources) Attention deficit hyperactivity disorder; Translations: [Attention-deficit hyperactivity disorder, unspecified type] Onset: 05-25-2012 06-03-2018 Chronic Developmental disorders (7 sources) Moderate intellectual disability; Translations: [Moderate intellectual disabilities] Onset: 05-25-2012 05-25-2012 Chronic Disorders of lipid metabolism (6 sources) Hypercholesterolemi a; Translations: [Pure hypercholesterolemi a, unspecified] Onset: 05-30-2023 05-29-2023 Chronic Disorders of teeth and jaw (3 sources) Chronic periodontitis; Translations: [Chronic periodontitis, unspecified] Onset: 06-09-2012 06-09-2012 Chronic Epilepsy; convulsions (6 sources) Seizure disorder; Translations: [Epilepsy, unspecified, not intractable, without status epilepticus] Onset: 05-30-2023 05-29-2023 Chronic Essential hypertension (6 sources) Hypertensive disorder; Translations: [Essential (primary) hypertension] Onset: 05-30-2023 05-29-2023 Chronic Fluid and electrolyte disorders (1 source) Hyponatremia; Translations: [Hypo-osmolality and hyponatremia] 05-25-2023 Episodic Genitourinary symptoms and ill-defined conditions (5 sources) Unspecified abnormal findings in urine; Translations: [Other abnormal findings in urine] Onset: 05-17-2022 Episodic Headache; including migraine (1 source) Headache; Translations: [Headache] 08-06-2023 Episodic Mood disorders (6 sources) Bipolar disorder; Translations: [Bipolar disorder, unspecified] Onset: 05-30-2023 05-29-2023 Chronic Other gastrointestinal disorders (1 source) Constipation; Translations: [Constipation, unspecified] 08-06-2023 Episodic Residual codes; unclassified (3 sources) Other specified health status; Translations: [Failure of outpatient treatment] Onset: 05-30-2023 05-31-2023 Episodic Skin and subcutaneous tissue infections (7 sources) Cellulitis of periorbital region; Translations: [Periorbital cellulitis] Onset: 05-30-2023 05-29-2023 Episodic Past or Other Problems Problem Classification Problem Date Documented Date Episodic/Chronic Disorders of teeth and jaw (11 sources) Dental caries; Translations: [Dental caries, unspecified] Onset: 06-09-2012 06-09-2012 Episodic Immunizations and screening for infectious disease (1 source) Encounter for screening for human papillomavirus (HPV); Translations: [ENC SCREENING HUMAN PAPILLOMAVIRUS] Onset: 04-29-2022 Episodic Other screening for suspected conditions (not mental disorders or infectious disease) (7 sources) Possible ; Translations: [Encounter for test, result unknown] Onset: 06-09-2012 06-09-2012 Episodic Results Test Name Value Interpretation Reference Range Facility Progress Noteson 10-19-2023 Brick Offbearer Authentication Interface Message Text ----- Thursday, October 19, 2023 at 11:01:41 AM ----- ----- Provider: [id number] Plata, Resident -- Clinic: [place] ----- LIMITED EXAM Patient presents for Emergency appointment with a CC of Sensitivity in the LL and LR area of their mouth. Reviewed patient's medical history. Patient has a history of: . ADHD, seizure disorder, bipolar disorder, moderate intellectual disabilities No contraindications, patient is ready for treatment. Clinical exam was completed. Clinical Exam Finding(s): Extensive decay tooth # None Radiographs taken today were: NONE Radiographic Findings: Discussed the medical necessity of the problem with the patient. Patient consented to treatment today. Pt here with meter calibrator to discuss IV sedation as a quicker alternative to the OR waitlist. Pt has previously been evaluated for the OR on 06/10/2022. While evaluating the patient, I informed her that there will be a needle with regards to placing the IV. Pt accepts this. Pt is cooperative, opens and closes on command. Pt had no issues with the examination. #22 and 26 appear carious, further radiographic evidence is needed for full determination. Spoke with Dr. Mahoney, he agrees the patient is a candidate for IV sedation. Informed both the patient and the meter calibrator. Treatment request for IV sedation will be sent for the patient. Next Visit: IV sedation and appropriate treatment. ----- Signed on Thursday, October 19, 2023 at 1:27:08 PM ----- ----- Provider: [id number] Ed Obrien DDS -- Clinic: [place] ----- Normal [facility] Progress Noteson 09-22-2023 Brick Offbearer [employer] Interface Message Text Return call to LATASHA barragan) inquiring how long patient has to wait before being seen in the OR . patient was added on OR list 06/10/2022---advised there is a two year wait ----- September at 1:05:49 PM ----- ----- Provider: THOUSTONMilena Ramírez [facility] -- Clinic: [place] ----- Normal [facility] CT head/brain wo conon 08-06 CT head/brain wo con [facility] Main [facility] [address] [place] [address] CT Scan Report Signed Patient: Migdalia Connelly MR#: [id number] : 1985 Acct:[id number] Age/Sex: 38 / F ADM Date: 08/06/23 Loc: ER Room: Type: [facility] ER Attending Dr: Copies to: Titi Terry DO Ordering Provider: Titi Terry DO Date of Service: 08/06/23 CT/CT head/brain wo con: r/o ich Unenhanced head CT TECHNIQUE: Contiguous axial imaging of the head. The CT exam was performed using one or more the following dose reduction techniques: Automated exposure control, adjustment of the MA and/or Kv according to patient size, or use of the iterative reconstruction technique. COMPARISON: None HISTORY: Hypertension. History of seizures. VENTRICLES: Within normal limits ATROPHY: None BRAIN PARENCHYMA: Adequate tillman-white matter differentiation identified. HEMORRHAGE: None HERNIATION: No mass effect or herniation INFARCTION: No recent vascular distribution infarction is seen. EXTRA-AXIAL FLUID COLLECTIONS None MIDBRAIN: Unremarkable GRETEL: Unremarkable MEDULLA: Unremarkable SINUSES: Unremarkable ORBITS: Grossly unremarkable MASTOIDS: Unremarkable BONY STRUCTURES Intact ADDITIONAL FINDINGS: CT/CT head/brain wo con IMPRESSION: No acute findings. Impression dictated by: Cr Remy M.D.08/07/2023 9:56 AM Dictation Location: [place] [address] Transcribed By: [facility] 08/07/23 0956 Dictated By: Cr Remy DO 08/07/23 0955 Signed By: 08/07/23 0956 Normal [facility] XR KUBon 08-07-2023 XR KUB [facility] Main [address] [address] XRay Report Signed Patient: Migdalia Connelly MR#: [id number] : 1985 Acct:[id number] Age/Sex: 38 / F ADM Date: 08/06/23 Loc: ER Room: Type: [facility] ER Attending Dr: Copies to: Titi Terry DO Ordering Provider: Titi Terry DO Date of Service: 08/06/23 XR/XR KUB: Abdominal Pain KUB COMPARISON: None HISTORY: Abdominal pain. Constipation. THORAX: Lung bases unremarkable. FREE AIR: Supine position limits assessment BOWEL: No gaseous intestinal distention. STOOL: Large amount stool throughout the colon. RENAL STONES: No significant stones present. VASCULAR CALCIFICATIONS: Unremarkable SOFT TISSUE: Unremarkable BONES: Unremarkable POSTSURGICAL CHANGES: Cholecystectomy XR/XR KUB IMPRESSION: Constipation. Impression dictated by: Cr Remy M.D.08/07/2023 9:55 AM Dictation Location: [place] [address] Transcribed By: [facility] 08/07/23954 Dictated By: Cr Remy DO 08/07/2354 Signed By: 08/07/23954 Normal [facility] Alanine aminotransferase [En zymatic activity/volume] in Serum or PlasmaOrdered By: Titi Terry on 08-06-2023 ALT [Catalytic activity/Vol] 25 U/L Normal 7-52 [facility] Comment on above: Performed By: #### C UBLD, BMP, DIFF CBC, LACTIC, PATH SLIDE REV #### [facility] [address] [place] [address] [place] Albumin [Mass/volume] in Ser um or Plasma by Bromocresol green (BCG) dye binding methoOrdered By: Titi Terry on 08-06-2023 Albumin BCG dye [Mass/Vol] 4.0 g/dL 3.5-5.7 [facility] Alkaline phosphatase [Enzyma tic activity/volume] in Serum or PlasmaOrdered By: Titi Terry on 08-06-2023 ALP [Catalytic activity/Vol] 32 U/L Low 34-104 [facility] Comment on above: Performed By: #### C UBLD, BMP, DIFF CBC, LACTIC, PATH SLIDE REV #### [facility] [address] [id number] [place] Aspartate aminotransferase [ Enzymatic activity/volume] in Serum or PlasmaOrdered By: Titi Terry on 08-06-2023 AST [Catalytic activity/Vol] 24 U/L Normal 13-39 [facility] Comment on above: Performed By: #### C UBLD, BMP, DIFF CBC, LACTIC, PATH SLIDE REV #### [address] Automated basophil %Ordered By: Titi Terry on 08-06-2023 Basophils/100 WBC (Bld) 0.3 % Normal . [facility] Comment on above: Performed By: #### C UBLD, BMP, DIFF CBC, LACTIC, PATH SLIDE REV #### [address] Automated basophil countOrde red By: Titi Terry on 08-06-2023 Basophils (Bld) [#/Vol] 0.0 10*3/uL Normal 0.0-0.2 [facility] Comment on above: Result Comment: PERF ORMED BY: [place] [address] PATHOLOGIST PROGRAM SUPPORT CLERK REJI SALAZAR M.D. Performed By: #### C UBLD, BMP, DIFF CBC, LACTIC, PATH SLIDE REV #### [address] Automated blood monocyte cou ntOrdered By: Titi Terry on 08-06-2023 Monocytes (Bld) [#/Vol] 0.4 10*3/uL Normal 0.0-0.8 [facility] Comment on above: Performed By: #### C UBLD, BMP, DIFF CBC, LACTIC, PATH SLIDE REV #### [address] Automated eosinophil %Ordere d By: Titi Terry on 08-06-2023 Eosinophils/100 WBC (Bld) 0.3 % Normal . [facility] Comment on above: Performed By: #### C UBLD, BMP, DIFF CBC, LACTIC, PATH SLIDE REV #### [address] Automated eosinophil countOr dered By: Titi Terry on 08-06-2023 Eosinophils (Bld) [#/Vol] 0.0 10*3/uL Normal 0.0-0.45 [facility] Comment on above: Performed By: #### C UBLD, BMP, DIFF CBC, LACTIC, PATH SLIDE REV #### [facility] [address] Automated monocyte %Ordered By: Titi Terry on 08-06-2023 Monocytes/100 WBC (Bld) 4.2 % Normal . [facility] Comment on above: Performed By: #### C UBLD, BMP, DIFF CBC, LACTIC, PATH SLIDE REV #### [address] Automated neutrophil %Ordere d By: Titi Terry on 08-06-2023 Neutrophils/100 WBC (Bld) 89.0 % Normal . [facility] Comment on above: Performed By: #### C UBLD, BMP, DIFF CBC, LACTIC, PATH SLIDE REV #### [address] Bacteria [Presence] in Urine by AutomatedOrdered By: PROVIDER TEMP on 08-06-2023 Bacteria Auto Ql (U) 2+ [HPF] None Seen [facility] Basic Metabolic Panelon 07-22 Creatinine Clr Calc Pharmacy 142.49 Normal [facility] Comment on above: Performed By: #### C UBLD, BMP, DIFF CBC, LACTIC, PATH SLIDE REV #### [address] GFR/1.73 sq M.predicted MDRD (S/P/Bld) [Vol rate/Area] mL/min/{1.73_m2} Normal [facility] Comment on above: Performed By: #### C UBLD, BMP, DIFF CBC, LACTIC, PATH SLIDE REV #### [address] Bilirubin Test strip Ql (U)O rdered By: PROVIDER TEMP on 08-06-2023 Bilirubin Ql (U) Negative Negative [facility] Bilirubin.direct [Mass/volum e] in Serum or PlasmaOrdered By: Titi Terry on 08-06-2023 Bilirubin.direct [Mass/Vol] 0.10 mg/dL 0.03-0.18 [facility] Bilirubin.total [Mass/volume ] in Serum or PlasmaOrdered By: Titi Huertay on 08-06-2023 Bilirubin [Mass/Vol] 0.3 mg/dL Normal 0.3-1.0 [facility] Comment on above: Performed By: #### C UBLD, BMP, DIFF CBC, LACTIC, PATH SLIDE REV #### [facility] [address] COVID CepheidOrdered By: Leonid belgica Harrison on 08-06-2023 SARS-CoV-2 (COVID-19) Ab IA Ql Negative Negative [facility] Comment on above: This is a duplicate [employer] Xpert Xpress CoV-2/Flu/RSV Plus RNA by RT-PCR result to be used for statistical tracking purpose only. SARS-CoV-2 (COVID-19) RNA ROSENDO+probe Ql (Unsp spec) [facility] COVID-19 / Flu A/B / RSV PCR on 08-06-2023 SARS-CoV-2 (COVID-19) RNA ROSENDO+probe Ql (Unsp spec) COVID-19 Cepheid Result Negative for SARS-CoV-2 RNA by RT-PCR Flu A Cepheid Result Negative for Flu A RNA by RT-PCR Flu B Cepheid Result Negative for Flu B RNA by RT-PCR RSV Cepheid Result Negative for RSV RNA by RT-PCR COVID19 Blank Space Reference: Negative COVID19 Blank Space Cepheid Disclaimer The Cepheid Xpert Xpress CoV-2/Flu/RSV Plus has Cepheid Disclaimer not been FDA cleared or approved; this test has Cepheid Disclaimer been authorized by FDA under an EUA for use by Cepheid Disclaimer authorized laboratories; this test has been Cepheid Disclaimer authorized only for the simultaneous qualitative Cepheid Disclaimer detection and differentiation of nucleic acids from Cepheid Disclaimer SARS-CoV-2, influenza A, influenza B, and Cepheid Disclaimer respiratory syncytial virus (RSV), and not for any Cepheid Disclaimer other viruses or pathogens; and this test is only Cepheid Disclaimer authorized for the duration of the declaration that Cepheid Disclaimer circumstances exist justifying the authorization of Cepheid Disclaimer emergency use of in vitro diagnostic tests for Cepheid Disclaimer detection and/or diagnosis of COVID-19 under Cepheid Disclaimer Section 564(b)(1) of the Act, 21 U.S.C. 360bbb- Cepheid Disclaimer 3(b)(1), unless the authorization is terminated or Cepheid Disclaimer revoked sooner. PERFORMED BY: [place] [address] PATHOLOGIST PROGRAM SUPPORT CLERK REJI SALAZAR M.D. Normal [facility] Comment on above: Performed By: #### C UBLD, BMP, DIFF CBC, LACTIC, PATH SLIDE REV #### [place] [address] [place] Calcium [Mass/volume] in Ser um or PlasmaOrdered By: Titi Terry on 08-06-2023 Calcium [Mass/Vol] 8.8 mg/dL Normal 8.6-10.3 [facility] Comment on above: Performed By: #### C UBLD, BMP, DIFF CBC, LACTIC, PATH SLIDE REV #### [place] [address] [place] Carbon dioxide, total [Moles /volume] in Serum or PlasmaOrdered By: Titi Terry on 08-06-2023 CO2 [Moles/Vol] 22.4 mmol/L Normal 21.0-31.0 [facility] Comment on above: Performed By: #### C UBLD, BMP, DIFF CBC, LACTIC, PATH SLIDE REV #### [address] [id number] [facility] Cepheid COVID PCR Negativeon 08-06-2023 SARS-CoV-2 (COVID-19) RNA ROSENDO+probe Ql (Unsp spec) Negative Normal Negative [facility] Comment on above: Result Comment: This is a duplicate [employer] Xpert Xpress CoV-2/Flu/RSV Plus RNA by RT-PCR result to be used for statistical tracking purpose only. PERFORMED BY: [place] [address] PATHOLOGIST PROGRAM SUPPORT CLERK REJI SALAZAR M.D. Performed By: #### C UBLD, BMP, DIFF CBC, LACTIC, PATH SLIDE REV #### [address] Chloride [Moles/volume] in S marimar or PlasmaOrdered By: Titi Terry on 08-06-2023 Chloride [Moles/Vol] 99 mmol/L Normal 98-107 [facility] Comment on above: Performed By: #### C UBLD, BMP, DIFF CBC, LACTIC, PATH SLIDE REV #### [address] Color of Urine by AutoOrdere d By: HEBERT TEMP on 08-06-2023 Color (U) Yellow Normal Yellow [facility] Comment on above: Order Comment: Name Collection Type:: Voided Performed By: #### C UBLD, BMP, DIFF CBC, LACTIC, PATH SLIDE REV #### [address] Complete Blood Count Auto Di ffon 08-06-2023 Mean Corpuscular HGB Conc 34.8 g/dL Normal 32.0-35.0 [facility] Comment on above: Performed By: #### C UBLD, BMP, DIFF CBC, LACTIC, PATH SLIDE REV #### [address] Monocytes/100 WBC (Bld) 28.85 % High 0.00-20.00 [facility] Comment on above: Result Comment: For adults in ED, MDW > 20.0 may be associated with a higher risk of sepsis during the first 12 hrs of hospital admission Performed By: #### C UBLD, BMP, DIFF CBC, LACTIC, PATH SLIDE REV #### [address] NRBC% 0.0 /100{WBC} Normal 0-0.5 [facility] Comment on above: Performed By: #### C UBLD, BMP, DIFF CBC, LACTIC, PATH SLIDE REV #### [facility] [address] [place] [address] [place] Creatinine [Mass/volume] in Serum or PlasmaOrdered By: Titi Terry on 08-06-2023 Creatinine [Mass/Vol] 0.56 mg/dL Low 0.60-1.20 [facility] Comment on above: Performed By: #### C UBLD, BMP, DIFF CBC, LACTIC, PATH SLIDE REV #### [place] [address] [place] Dipstick and Microscopicon 0 08-06-2023 Bacteria,Urine 2+ High None Seen [facility] Comment on above: Order Comment: Name Collection Type:: Voided Performed By: #### C UBLD, BMP, DIFF CBC, LACTIC, PATH SLIDE REV #### [place] [address] [place] Bilirubin,Urine Negative Normal Negative [facility] Comment on above: Order Comment: Name Collection Type:: Voided Performed By: #### C UBLD, BMP, DIFF CBC, LACTIC, PATH SLIDE REV #### [address] Glucose Ql (U) Normal Normal Normal [facility] Comment on above: Order Comment: Name Collection Type:: Voided Performed By: #### C UBLD, BMP, DIFF CBC, LACTIC, PATH SLIDE REV #### [place] [address] [place] Hyaline Casts,Urine None Normal 0-8 [facility] Comment on above: Order Comment: Name Collection Type:: Voided Performed By: #### C UBLD, BMP, DIFF CBC, LACTIC, PATH SLIDE REV #### [place] [address] [place] Mucus,Urine Rare Normal [facility] Comment on above: Order Comment: Name Collection Type:: Voided Result Comment: PERF ORMED BY: [place] [address] PATHOLOGIST PROGRAM SUPPORT CLERK REJI SALAZAR M.D. Performed By: #### C UBLD, BMP, DIFF CBC, LACTIC, PATH SLIDE REV #### [place] [address] [place] Nitrite,Urine Negative Normal Negative [facility] Comment on above: Order Comment: Name Collection Type:: Voided Performed By: #### C UBLD, BMP, DIFF CBC, LACTIC, PATH SLIDE REV #### [place] [address] [place] Non-Squamous Epithelial Cell,U 1-2 High None Seen [facility] Comment on above: Order Comment: Name Collection Type:: Voided Performed By: #### C UBLD, BMP, DIFF CBC, LACTIC, PATH SLIDE REV #### [place] [address] [place] Occult Blood,Urine Negative Normal Negative [facility] Comment on above: Order Comment: Name Collection Type:: Voided Result Comment: PERF ORMED BY: [place] [address] PATHOLOGIST PROGRAM SUPPORT CLERK REJI SALAZAR M.D. Performed By: #### C UBLD, BMP, DIFF CBC, LACTIC, PATH SLIDE REV #### [place] [address] [place] Protein,Urine Negative Normal Negative [facility] Comment on above: Order Comment: Name Collection Type:: Voided Performed By: #### C UBLD, BMP, DIFF CBC, LACTIC, PATH SLIDE REV #### [place] [address] [place] RBC,Urine 5-9 High 0-4 [facility] Comment on above: Order Comment: Name Collection Type:: Voided Performed By: #### C UBLD, BMP, DIFF CBC, LACTIC, PATH SLIDE REV #### [place] [address] [place] Specificy [place],Urine 1.022 Normal 1.001-1.030 [facility] Comment on above: Order Comment: Name Collection Type:: Voided Performed By: #### C UBLD, BMP, DIFF CBC, LACTIC, PATH SLIDE REV #### [facility] [address] Squamous Epithelial Cell,Urine 10-19 High 0-2 [facility] Comment on above: Order Comment: Name Collection Type:: Voided Performed By: #### C UBLD, BMP, DIFF CBC, LACTIC, PATH SLIDE REV #### [address] Urobilinogen,Urine Normal Normal Normal [facility] Comment on above: Order Comment: Name Collection Type:: Voided Performed By: #### C UBLD, BMP, DIFF CBC, LACTIC, PATH SLIDE REV #### [address] WBC,Urine 10-19 High 0-4 [facility] Comment on above: Order Comment: Name Collection Type:: Voided Performed By: #### C UBLD, BMP, DIFF CBC, LACTIC, PATH SLIDE REV #### [address] Epithelial cells.non-squamou s [#/area] in Urine sediment by Automated countOrdered By: PROVIDER TEMP on 08-06-2023 Epithelial cells.non-squamous Auto (Urine sed) [#/Area] 1-2 [HPF] None Seen [facility] Epithelial cells.squamous [# /area] in Urine sediment by Automated countOrdered By: PROVIDER TEMP on 08-06-2023 Epithelial cells.squamous Auto (Urine sed) [#/Area] 10-19 [HPF] 0-2 [facility] Erythrocyte distribution wid th [Ratio] by Automated countOrdered By: Titi Terry on 08-06-2023 Erythrocyte distribution width (RBC) [Ratio] 13.0 % Normal 11.9-15.3 [facility] Comment on above: Performed By: #### C UBLD, BMP, DIFF CBC, LACTIC, PATH SLIDE REV #### [facility] [address] [place] [address] Erythrocytes [#/area] in Uri ne sediment by Automated countOrdered By: PROVIDER TEMP on 08-06-2023 RBC Auto (Urine sed) [#/Area] 5-9 [HPF] 0-4 [facility] Erythrocytes [#/volume] in B lood by Automated countOrdered By: Titi Terry on 08-06-2023 RBC (Bld) [#/Vol] 3.57 10*6/uL Low 3.60-5.00 [facility] Comment on above: Performed By: #### C UBLD, BMP, DIFF CBC, LACTIC, PATH SLIDE REV #### [facility] [address] [place] [address] [place] Glucose [Mass/volume] in Ser um or PlasmaOrdered By: Titi Terry on 08-06-2023 Glucose [Mass/Vol] 116 mg/dL High 70-100 [facility] Comment on above: ADA recommended refe rence rangeRandom Glucose Reference Range is dependent on time and content of last meal. Glucose of more than 200 mg/dL in a nonstressed, ambulatory subject supports the diagnosis of Diabetes Mellitus. Result Comment: [place] om Glucose Reference Range is dependent on time and content of last meal. Glucose of more than 200 mg/dL in a nonstressed, ambulatory subject supports the diagnosis of Diabetes Mellitus. ADA recommended reference range Performed By: #### C UBLD, BMP, DIFF CBC, LACTIC, PATH SLIDE REV #### [facility] [address] [id number] [place] Glucose [Mass/volume] in Uri ne by Test stripOrdered By: PROVIDER TEMP on 08-06-2023 Glucose Test strip (U) [Mass/Vol] Normal mg/dL Normal [facility] Hematocrit [Volume Fraction] of Blood by Automated countOrdered By: Titi Terry on 08-06-2023 Hematocrit (Bld) [Volume fraction] 32.9 % Low 34.0-46.4 [facility] Comment on above: Performed By: #### C UBLD, BMP, DIFF CBC, LACTIC, PATH SLIDE REV #### [facility] [address] [place] [address] [place] Hemoglobin Test strip Ql (U) Ordered By: PROVIDER TEMP on 08-06-2023 Hemoglobin Ql (U) Negative Negative [facility] Hemoglobin [Mass/volume] in BloodOrdered By: Titi Terry on 08-06-2023 Hemoglobin (Bld) [Mass/Vol] 11.4 g/dL Low 11.8-15.4 [facility] Comment on above: Performed By: #### C UBLD, BMP, DIFF CBC, LACTIC, PATH SLIDE REV #### [facility] [address] Hepatic Panelon 08-06-2023 Albumin [Mass/Vol] 4.0 g/dL Normal 3.5-5.7 [facility] Comment on above: Performed By: #### C UBLD, BMP, DIFF CBC, LACTIC, PATH SLIDE REV #### [address] Bilirubin,Indirect 0.2 mg/dL Normal [facility] Comment on above: Performed By: #### C UBLD, BMP, DIFF CBC, LACTIC, PATH SLIDE REV #### [address] Bilirubin.indirect [Mass/Vol] 0.10 mg/dL Normal 0.03-0.18 [facility] Comment on above: Performed By: #### C UBLD, BMP, DIFF CBC, LACTIC, PATH SLIDE REV #### [address] Hyaline casts [#/area] in Ur ine sediment by Automated countOrdered By: PROVIDER TEMP on 08-06-2023 Hyaline casts Auto (Urine sed) [#/Area] None [LPF] 0-8 [facility] Ketones [Presence] in Urine by Test stripOrdered By: PROVIDER TEMP on 08-06-2023 Ketones Ql (U) Negative Normal Negative [facility] Comment on above: Order Comment: Name Collection Type:: Voided Performed By: #### C UBLD, BMP, DIFF CBC, LACTIC, PATH SLIDE REV #### [address] Leukocyte esterase [Presence ] in Urine by Test stripOrdered By: PROVIDER TEMP on 08-06-2023 Leukocyte esterase Test strip Ql (U) 2+ High Negative [facility] Comment on above: Order Comment: Name Collection Type:: Voided Performed By: #### C UBLD, BMP, DIFF CBC, LACTIC, PATH SLIDE REV #### [address] Leukocytes [#/area] in Urine sediment by Automated countOrdered By: PROVIDER TEMP on 08-06-2023 WBC Auto (Urine sed) [#/Area] 10-19 [HPF] 0-4 [facility] Leukocytes [#/volume] correc kristian for nucleated erythrocytes in Blood by Automated counOrdered By: Titi Terry on 08-06-2023 WBC corrected for nucl RBC Auto (Bld) [#/Vol] 9.0 10*3/uL 3.8-11.6 [facility] Leukocytes [#/volume] in Blo od by Automated countOrdered By: Titi Terry on 08-06-2023 WBC (Bld) [#/Vol] 9.0 10*3/uL Normal 3.8-11.6 [facility] Comment on above: Performed By: #### C UBLD, BMP, DIFF CBC, LACTIC, PATH SLIDE REV #### [facility] [address] [place] [address] Lipase [Enzymatic activity/v olume] in Serum or PlasmaOrdered By: Titi Terry on 08-06-2023 Lipase [Catalytic activity/Vol] 25.0 U/L Normal 11.0-82.0 [facility] Comment on above: Result Comment: PERF ORMED BY: [place] [address] PATHOLOGIST PROGRAM SUPPORT CLERK REJI SALAZAR M.D. Performed By: #### C UBLD, BMP, DIFF CBC, LACTIC, PATH SLIDE REV #### [facility] [address] [place] [address] [place] Lymphocytes [#/volume] in Bl ood by Automated countOrdered By: Titi Terry on 08-06-2023 Lymphocytes (Bld) [#/Vol] 0.6 10*3/uL Low 1.00-4.8 [facility] Comment on above: Performed By: #### C UBLD, BMP, DIFF CBC, LACTIC, PATH SLIDE REV #### [facility] [address] [place] [address] [place] Lymphocytes/100 leukocytes i n Blood by Automated countOrdered By: Titi Terry on 08-06-2023 Lymphocytes/100 WBC (Bld) 6.2 % Normal . [facility] Comment on above: Performed By: #### C UBLD, BMP, DIFF CBC, LACTIC, PATH SLIDE REV #### [facility] [address] MCH [Entitic mass] by Automa kristian countOrdered By: Titi Terry on 08-06-2023 MCH (RBC) [Entitic mass] 32.0 pg Normal 24.7-34.3 [facility] Comment on above: Performed By: #### C UBLD, BMP, DIFF CBC, LACTIC, PATH SLIDE REV #### [address] MCHC Auto (RBC) [Mass/Vol]Or dered By: Titi Terry on 08-06-2023 MCHC (RBC) [Mass/Vol] 34.8 g/dL 32.0-35.0 [facility] MCV [Entitic volume] by Auto mated countOrdered By: Titi Terry on 08-06-2023 MCV (RBC) [Entitic vol] 92.0 fL Normal 80-100 [facility] Comment on above: Performed By: #### C UBLD, BMP, DIFF CBC, LACTIC, PATH SLIDE REV #### [address] Monocyte distribution width [Entitic volume] in Blood by AutomatedOrdered By: Titi Terry on 08-06-2023 Monocyte distribution width Auto (Bld) [Entitic vol] 28.85 % 0.00-20.00 [facility] Comment on above: For adults in ED, MD W > 20.0 may be associated with a higher risk of sepsis during the first 12 hrs of hospital admission Mucus [Presence] in Urine by AutomatedOrdered By: HEBERT TEMP on 08-06-2023 Mucus Auto Ql (U) Rare [LPF] [facility] Neutrophils [#/volume] in Bl ood by Automated countOrdered By: Titi Terry on 08-06-2023 Neutrophils (Bld) [#/Vol] 8.0 10*3/uL High 1.8-7.7 [facility] Comment on above: Performed By: #### C UBLD, BMP, DIFF CBC, LACTIC, PATH SLIDE REV #### [facility] [address] Nitrite Test strip Ql (U)Ord ered By: PROVIDER TEMP on 08-06-2023 Nitrite Ql (U) Negative Negative [facility] No Panel InformationOrdered By: Titi Terry on 08-06-2023 Estimated GFR (CKD-EPI) > 60.0 mL/Min [facility] Creatinine Clearance (Chem 142.49 [facility] Nucleated erythrocytes [Pres ence] in Blood by Automated countOrdered By: Titi Terry on 08-06-2023 Nucleated RBC Auto Ql (Bld) 0.0 /100{WBC} 0-0.5 [facility] Platelet mean volume [Entiti c volume] in Blood by Automated countOrdered By: Titi Terry on 08-06-2023 Platelet mean volume (Bld) [Entitic vol] 6.8 fL Normal 6.3-10.7 [facility] Comment on above: Performed By: #### C UBLD, BMP, DIFF CBC, LACTIC, PATH SLIDE REV #### [facility] [address] [place] [address] [place] Platelets [#/volume] in Bloo d by Automated countOrdered By: Titi Terry on 08-06-2023 Platelets (Bld) [#/Vol] 294 10*3/uL Normal 150-450 [facility] Comment on above: Performed By: #### C UBLD, BMP, DIFF CBC, LACTIC, PATH SLIDE REV #### [facility] [address] [place] [address] [place] Potassium [Moles/volume] in Serum or PlasmaOrdered By: Titi Terry on 06-15-2024 Potassium [Moles/Vol] 3.7 mmol/L Normal 3.5-5.1 [facility] Comment on above: Performed By: #### C UBLD, BMP, DIFF CBC, LACTIC, PATH SLIDE REV #### [address] Protein Test strip (U) [Mass /Vol]Ordered By: PROVIDER TEMP on 08-06-2023 Protein (U) [Mass/Vol] Negative Negative [facility] Protein [Mass/volume] in Ser um or PlasmaOrdered By: Titi Terry on 08-06-2023 Protein [Mass/Vol] 6.9 g/dL Normal 6.4-8.9 [facility] Comment on above: Performed By: #### C UBLD, BMP, DIFF CBC, LACTIC, PATH SLIDE REV #### [address] Serum globulin measurement b y calculation (mass/volume)Ordered By: Titi Terry on 08-06-2023 Globulin (S) [Mass/Vol] 2.9 g/dL Normal [facility] Comment on above: Performed By: #### C UBLD, BMP, DIFF CBC, LACTIC, PATH SLIDE REV #### [address] Serum or plasma albumin/glob ulin mass ratioOrdered By: Titi Terry on 08-06-2023 Albumin/Globulin [Mass ratio] 1.4 {ratio} Normal [facility] Comment on above: Performed By: #### C UBLD, BMP, DIFF CBC, LACTIC, PATH SLIDE REV #### [address] Serum or plasma anion gap de terminationOrdered By: Titi Terry on 08-06-2023 Anion gap [Moles/Vol] 13.3 mmol/L Normal 6.0-15.0 [facility] Comment on above: Performed By: #### C UBLD, BMP, DIFF CBC, LACTIC, PATH SLIDE REV #### [address] Serum or plasma non-glucuron idated bilirubin measurement (mass/volume)Ordered By: Titi Terry on 08-06-2023 Bilirubin.indirect [Mass/Vol] 0.2 mg/dL [facility] Sodium [Moles/volume] in Ser um or PlasmaOrdered By: Titi Terry on 08-06-2023 Sodium [Moles/Vol] 131 mmol/L Low 136-145 [facility] Comment on above: Performed By: #### C UBLD, BMP, DIFF CBC, LACTIC, PATH SLIDE REV #### [facility] [address] Specific gravity Test strip (U) [Rel density]Ordered By: PROVIDER TEMP on 08-06-2023 Specific gravity (U) [Rel density] 1.022 1.001-1.030 [facility] Urea nitrogen [Mass/volume] in Serum or PlasmaOrdered By: Titi Terry on 08-06-2023 Urea nitrogen [Mass/Vol] 6 mg/dL Low 7-25 [facility] Comment on above: Performed By: #### C UBLD, BMP, DIFF CBC, LACTIC, PATH SLIDE REV #### [address] Urine Cultureon 08-06-2023 Bacteria identified Cx Nom (U) 20,000 colonies/ml mixed bacterial skin contaminants 2 Days PERFORMED BY: [place] [address] PATHOLOGIST PROGRAM SUPPORT CLERK REJI SALAZAR M.D. Normal [facility] Comment on above: Performed By: #### C UBLD, BMP, DIFF CBC, LACTIC, PATH SLIDE REV #### [facility] [address] Urine appearanceOrdered By: PROVIDER TEMP on 08-06-2023 Appearance (U) Cloudy Critically abnormal Clear [facility] Comment on above: Order Comment: Name Collection Type:: Voided Performed By: #### C UBLD, BMP, DIFF CBC, LACTIC, PATH SLIDE REV #### [facility] [address] [place] [address] [place] Urobilinogen Test strip (U) [Mass/Vol]Ordered By: PROVIDER TEMP on 08-06-2023 Urobilinogen (U) [Mass/Vol] Normal mg/dL Normal [facility] pH of Urine by Test stripOrd ered By: PROVIDER TEMP on 08-06-2023 pH (U) 6.5 [pH] Normal 5.0-9.0 [facility] Comment on above: Order Comment: Name Collection Type:: Voided Performed By: #### C UBLD, BMP, DIFF CBC, LACTIC, PATH SLIDE REV #### [facility] [address] [place] [id number] [facility] Progress Noteson 07-28-2023 Brick Offbearer Authentication Interface Message Text Received message from Sheila yanez [place] regarding where patient was on waitlist advised that patient was seen on 06/10/2022 and there is a 2 to 2 1/2 year wait ----- , July 28, 2023 at 11:20:33 AM ----- ----- Provider: Gayle Ventura-High Scaler -- Clinic: [place] ----- Normal [facility] Alanine aminotransferase [En zymatic activity/volume] in Serum or PlasmaOrdered By: Rico Romero on 06-01-2023 ALT [Catalytic activity/Vol] 15 U/L Normal 7-52 [facility] Comment on above: Performed By: #### C UBLD, BMP, DIFF CBC, LACTIC, PATH SLIDE REV #### [facility] [address] [place] [id number] [facility] Albumin [Mass/volume] in Ser um or Plasma by Bromocresol green (BCG) dye binding methoOrdered By: Rico Romero on 06-01-2023 Albumin BCG dye [Mass/Vol] 3.5 g/dL 3.5-5.7 [facility] Alkaline phosphatase [Enzyma tic activity/volume] in Serum or PlasmaOrdered By: Rico Romero on 06-01-2023 ALP [Catalytic activity/Vol] 42 U/L Normal 34-104 [facility] Comment on above: Performed By: #### C UBLD, BMP, DIFF CBC, LACTIC, PATH SLIDE REV #### [facility] [address] [place] [id number] [place] Aspartate aminotransferase [ Enzymatic activity/volume] in Serum or PlasmaOrdered By: Rico Romero on 06-01-2023 AST [Catalytic activity/Vol] 13 U/L Normal 13-39 [facility] Comment on above: Performed By: #### C UBLD, BMP, DIFF CBC, LACTIC, PATH SLIDE REV #### [facility] [address] [place] [address] [place] Basophils Auto (Bld) [#/Vol] Ordered By: Arvind Regan on 06-01-2023 Basophils (Bld) [#/Vol] N/A F [facility] Basophils/100 WBC Auto (Bld) Ordered By: Yaneyda Murdocksein on 06-01-2023 Basophils/100 WBC (Bld) N/A F [facility] Bilirubin.total [Mass/volume ] in Serum or PlasmaOrdered By: Rico Romero on 06-01-2023 Bilirubin [Mass/Vol] 0.2 mg/dL Low 0.3-1.0 [facility] Comment on above: Performed By: #### C UBLD, BMP, DIFF CBC, LACTIC, PATH SLIDE REV #### [facility] [address] [place] [id number] [place] C reactive protein [Mass/vol ume] in Serum or PlasmaOrdered By: Rico Romero on 06-01-2023 CRP [Mass/Vol] 1.1 mg/dL 0.0-0.5 [facility] C-Reactive Proteinon 024 C-Reactive Protein 1.1 mg/dL High 0.0-0.5 [facility] Comment on above: Result Comment: PERF ORMED BY: [place] [address] PATHOLOGIST PROGRAM SUPPORT CLERK REJI SALAZAR M.D. Performed By: #### C UBLD, BMP, DIFF CBC, LACTIC, PATH SLIDE REV #### [facility] [address] [place] [id number] [place] Calcium [Mass/volume] in Ser um or PlasmaOrdered By: Rico Romero on 06-01-2023 Calcium [Mass/Vol] 8.9 mg/dL Normal 8.6-10.3 [facility] Comment on above: Performed By: #### C UBLD, BMP, DIFF CBC, LACTIC, PATH SLIDE REV #### [facility] [address] Carbon dioxide, total [Moles /volume] in Serum or PlasmaOrdered By: Rico Romero on 06-01-2023 CO2 [Moles/Vol] 26.6 mmol/L Normal 21.0-31.0 [facility] Comment on above: Performed By: #### C UBLD, BMP, DIFF CBC, LACTIC, PATH SLIDE REV #### [address] Chloride [Moles/volume] in S [place] or PlasmaOrdered By: Rico Romero on 06-01-2023 Chloride [Moles/Vol] 102 mmol/L Normal 98-107 [facility] Comment on above: Performed By: #### C UBLD, BMP, DIFF CBC, LACTIC, PATH SLIDE REV #### [address] Comprehensive Metabolic Pane carlos 06-01-2023 Albumin [Mass/Vol] 3.5 g/dL Normal 3.5-5.7 [facility] Comment on above: Performed By: #### C UBLD, BMP, DIFF CBC, LACTIC, PATH SLIDE REV #### [place] [address] [place] Creatinine Clr Calc Pharmacy 191.30 Normal [facility] Comment on above: Performed By: #### C UBLD, BMP, DIFF CBC, LACTIC, PATH SLIDE REV #### [place] [address] [place] GFR/1.73 sq M.predicted MDRD (S/P/Bld) [Vol rate/Area] mL/min/{1.73_m2} Normal [facility] Comment on above: Performed By: #### C UBLD, BMP, DIFF CBC, LACTIC, PATH SLIDE REV #### [facility] [address] Creatinine [Mass/volume] in Serum or PlasmaOrdered By: Rico Romero on 06-01-2023 Creatinine [Mass/Vol] 0.43 mg/dL Low 0.60-1.20 [facility] Comment on above: Performed By: #### C UBLD, BMP, DIFF CBC, LACTIC, PATH SLIDE REV #### [facility] [address] [place] [address] [place] Diff and CBCon 06-01-2023 Mean Corpuscular HGB Conc 33.0 g/dL Normal 32.0-35.0 [facility] Comment on above: Performed By: #### C UBLD, BMP, DIFF CBC, LACTIC, PATH SLIDE REV #### [address] Myelocytes 11 % High 0-0 [facility] Comment on above: Performed By: #### C UBLD, BMP, DIFF CBC, LACTIC, PATH SLIDE REV #### [address] Platelet Estimate Increased Normal Normal [facility] Comment on above: Performed By: #### C UBLD, BMP, DIFF CBC, LACTIC, PATH SLIDE REV #### [address] Platelet Morphology Normal Normal Normal [facility] Comment on above: Performed By: #### C UBLD, BMP, DIFF CBC, LACTIC, PATH SLIDE REV #### [place] [address] [place] Eosinophils Auto (Bld) [#/Vo l]Ordered By: Arvind Regan on 06-01-2023 Eosinophils (Bld) [#/Vol] N/A [facility] Eosinophils/100 WBC Auto (Bl d)Ordered By: Arvind Regan on 06-01-2023 Eosinophils/100 WBC (Bld) N/A [facility] Eosinophils/100 leukocytes i n Blood by Manual countOrdered By: Arvind Regan on 06-01-2023 Eosinophils/100 WBC (Bld) 4 % High 1-3 [facility] Comment on above: Performed By: #### C UBLD, BMP, DIFF CBC, LACTIC, PATH SLIDE REV #### [facility] [address] Erythrocyte Sedimentation Ra don 06-01-2023 ESR (Bld) [Velocity] 30 mm/h High 0-19 [facility] Comment on above: Result Comment: PERF ORMED BY: [place] [address] PATHOLOGIST PROGRAM SUPPORT CLERK REJI SALAZAR M.D. Performed By: #### C UBLD, BMP, DIFF CBC, LACTIC, PATH SLIDE REV #### [facility] [address] Erythrocyte distribution wid th [Ratio] by Automated countOrdered By: Arvind Regan on 06-01-2023 Erythrocyte distribution width (RBC) [Ratio] 13.7 % Normal 11.9-15.3 [facility] Comment on above: Performed By: #### C UBLD, BMP, DIFF CBC, LACTIC, PATH SLIDE REV #### [facility] [address] Erythrocyte sedimentation ra te by Photometric methodOrdered By: Rico Romero on 06-01-2023 ESR Photometric method (Bld) [Velocity] 30 mm/hr 0-19 [facility] Erythrocytes [#/volume] in B lood by Automated countOrdered By: Arvind Regan on 06-01-2023 RBC (Bld) [#/Vol] 3.77 10*6/uL Normal 3.60-5.00 [facility] Comment on above: Performed By: #### C UBLD, BMP, DIFF CBC, LACTIC, PATH SLIDE REV #### [place] [address] [place] Glucose [Mass/volume] in Ser um or PlasmaOrdered By: Rico Romero on 06-01-2023 Glucose [Mass/Vol] 107 mg/dL High 70-100 [facility] Comment on above: ADA recommended refe rence rangeRandom Glucose Reference Range is dependent on time and content of last meal. Glucose of more than 200 mg/dL in a nonstressed, ambulatory subject supports the diagnosis of Diabetes Mellitus. Result Comment: [place] Glucose Reference Range is dependent on time and content of last meal. Glucose of more than 200 mg/dL in a nonstressed, ambulatory subject supports the diagnosis of Diabetes Mellitus. ADA recommended reference range Performed By: #### C UBLD, BMP, DIFF CBC, LACTIC, PATH SLIDE REV #### [address] Hematocrit [Volume Fraction] of Blood by Automated countOrdered By: Arvind Regan on 06-01-2023 Hematocrit (Bld) [Volume fraction] 35.5 % Normal 34.0-46.4 [facility] Comment on above: Performed By: #### C UBLD, BMP, DIFF CBC, LACTIC, PATH SLIDE REV #### [address] Hemoglobin [Mass/volume] in BloodOrdered By: Arvind Regan on 06-01-2023 Hemoglobin (Bld) [Mass/Vol] 11.7 g/dL Low 11.8-15.4 [facility] Comment on above: Performed By: #### C UBLD, BMP, DIFF CBC, LACTIC, PATH SLIDE REV #### [address] Leukocytes [#/volume] correc kristian for nucleated erythrocytes in Blood by Automated counOrdered By: Arvind Regan on 06-01-2023 WBC corrected for nucl RBC Auto (Bld) [#/Vol] 10.1 10*3/uL 3.8-11.6 [facility] Leukocytes [#/volume] in Blo od by Automated countOrdered By: Arvind Regan on 06-01-2023 WBC (Bld) [#/Vol] 10.1 10*3/uL Normal 3.8-11.6 [facility] Comment on above: Performed By: #### C UBLD, BMP, DIFF CBC, LACTIC, PATH SLIDE REV #### [place] [address] [place] Lymphocytes Auto (Bld) [#/Vo l]Ordered By: Arvind Regan on 06-01-2023 Lymphocytes (Bld) [#/Vol] N/A [facility] Lymphocytes/100 WBC Auto (Bl d)Ordered By: Arvind Poncein on 06-01-2023 Lymphocytes/100 WBC (Bld) N/A [facility] Lymphocytes/100 leukocytes i n Blood by Manual countOrdered By: Arvind Regan on 06-01-2023 Lymphocytes/100 WBC (Bld) 24 % Normal 18-42 [facility] Comment on above: Performed By: #### C UBLD, BMP, DIFF CBC, LACTIC, PATH SLIDE REV #### [facility] [address] MCH [Entitic mass] by Automa kristian countOrdered By: Arvind Regan on 06-01-2023 MCH (RBC) [Entitic mass] 31.0 pg Normal 24.7-34.3 [facility] Comment on above: Performed By: #### C UBLD, BMP, DIFF CBC, LACTIC, PATH SLIDE REV #### [facility] [address] MCHC Auto (RBC) [Mass/Vol]Or dered By: Arvind Regan on 06-01-2023 MCHC (RBC) [Mass/Vol] 33.0 g/dL 32.0-35.0 [facility] MCV [Entitic volume] by Auto mated countOrdered By: Arvind Regan on 06-01-2023 MCV (RBC) [Entitic vol] 93.9 fL Normal 80-100 F [facility] Comment on above: Performed By: #### C UBLD, BMP, DIFF CBC, LACTIC, PATH SLIDE REV #### [facility] [address] Manual blood segmented neutr ophils/100 leukocytesOrdered By: Arvind Regan on 06-01-2023 Segmented neutrophils/100 WBC (Bld) 51 % Normal 50-70 [facility] Comment on above: Performed By: #### C UBLD, BMP, DIFF CBC, LACTIC, PATH SLIDE REV #### [facility] [address] [place] [address] [place] Monocytes Auto (Bld) [#/Vol] Ordered By: Yaneyda Murdocksein on 06-01-2023 Monocytes (Bld) [#/Vol] N/A F [facility] Monocytes/100 WBC Auto (Bld) Ordered By: Arvidn Murdocksein on 06-01-2023 Monocytes/100 WBC (Bld) N/A F [facility] Monocytes/100 leukocytes in Blood by Manual countOrdered By: Arvind Murdocksein on 06-01-2023 Monocytes/100 WBC (Bld) 6 % Normal 2-11 [facility] Comment on above: Performed By: #### C UBLD, BMP, DIFF CBC, LACTIC, PATH SLIDE REV #### [place] [address] [place] Myelocytes/100 WBC Manual cn t (Bld)Ordered By: Arvind Murdocksein on 06-01-2023 Myelocytes/100 WBC (Bld) 11 % 0-0 [facility] Neutrophils Auto (Bld) [#/Vo l]Ordered By: Arvind Murdocksein on 06-01-2023 Neutrophils (Bld) [#/Vol] N/A [facility] Neutrophils/100 WBC Auto (Bl d)Ordered By: Arvind Murdocksein on 06-01-2023 Neutrophils/100 WBC (Bld) N/A [facility] No Panel InformationOrdered By: Rico Romero on 06-01-2023 Estimated GFR (CKD-EPI) > 60.0 mL/Min [facility] Creatinine Clearance (Chem 191.30 [facility] Nucleated erythrocytes [Pres ence] in Blood by Automated countOrdered By: Arvind Murdocksein on 06-01-2023 Nucleated RBC Auto Ql (Bld) N/A [facility] Peripheral white blood cell differential % bands, microscopic examOrdered By: Arvind Regan on 06-01-2023 Band form neutrophils/100 WBC (Bld) 5 % Normal 0-5 [facility] Comment on above: Performed By: #### C UBLD, BMP, DIFF CBC, LACTIC, PATH SLIDE REV #### [facility] [address] [place] [address] [place] Platelet adequacy [Presence] in Blood by Light microscopyOrdered By: Arvind Regan on 06-01-2023 Platelets LM Ql (Bld) Increased Normal [facility] Platelet mean volume [Entiti c volume] in Blood by Automated countOrdered By: Arvind Regan on 06-01-2023 Platelet mean volume (Bld) [Entitic vol] 6.1 fL Low 6.3-10.7 [facility] Comment on above: Performed By: #### C UBLD, BMP, DIFF CBC, LACTIC, PATH SLIDE REV #### [facility] [address] Platelet morphology finding [Identifier] in BloodOrdered By: Arvind Regan on 06-01-2023 Platelet morphology finding Nom (Bld) Normal Normal [facility] Platelets [#/volume] in Bloo d by Automated countOrdered By: Arvind Regan on 06-01-2023 Platelets (Bld) [#/Vol] 456 10*3/uL High 150-450 [facility] Comment on above: Performed By: #### C UBLD, BMP, DIFF CBC, LACTIC, PATH SLIDE REV #### [facility] [address] [place] [address] [place] Potassium [Moles/volume] in Serum or PlasmaOrdered By: Rico Romero on 06-01-2023 Potassium [Moles/Vol] 4.3 mmol/L Normal 3.5-5.1 [facility] Comment on above: Performed By: #### C UBLD, BMP, DIFF CBC, LACTIC, PATH SLIDE REV #### [facility] [address] [place] [address] [place] Protein [Mass/volume] in Ser um or PlasmaOrdered By: Rico Romero on 06-01-2023 Protein [Mass/Vol] 6.5 g/dL Normal 6.4-8.9 [facility] Comment on above: Performed By: #### C UBLD, BMP, DIFF CBC, LACTIC, PATH SLIDE REV #### [facility] [address] [place] [address] [place] RBC morphologyOrdered By: Maddie Regan on 06-01-2023 RBC morphology finding Nom (Bld) Normal Normal Normal [facility] Comment on above: Performed By: #### C UBLD, BMP, DIFF CBC, LACTIC, PATH SLIDE REV #### [facility] [address] Serum globulin measurement b y calculation (mass/volume)Ordered By: Rico Romero on 06-01-2023 Globulin (S) [Mass/Vol] 3.0 g/dL Normal F [facility] Comment on above: Performed By: #### C UBLD, BMP, DIFF CBC, LACTIC, PATH SLIDE REV #### [address] Serum or plasma albumin/glob ulin mass ratioOrdered By: Rico Romero on 06-01-2023 Albumin/Globulin [Mass ratio] 1.2 {ratio} Normal [facility] Comment on above: Performed By: #### C UBLD, BMP, DIFF CBC, LACTIC, PATH SLIDE REV #### [address] Serum or plasma anion gap de terminationOrdered By: Rico Romero on 06-01-2023 Anion gap [Moles/Vol] 11.7 mmol/L Normal 6.0-15.0 [facility] Comment on above: Performed By: #### C UBLD, BMP, DIFF CBC, LACTIC, PATH SLIDE REV #### [address] Sodium [Moles/volume] in Ser um or PlasmaOrdered By: Rico Romero on 06-01-2023 Sodium [Moles/Vol] 136 mmol/L Normal 136-145 [facility] Comment on above: Performed By: #### C UBLD, BMP, DIFF CBC, LACTIC, PATH SLIDE REV #### [address] Urea nitrogen [Mass/volume] in Serum or PlasmaOrdered By: Rico Romero on 06-01-2023 Urea nitrogen [Mass/Vol] 9 mg/dL Normal 7-25 [facility] Comment on above: Performed By: #### C UBLD, BMP, DIFF CBC, LACTIC, PATH SLIDE REV #### [address] C-Reactive Proteinon 024 C-Reactive Protein 1.0 mg/dL High 0.0-0.5 [facility] Comment on above: Result Comment: PERF ORMED BY: [place] [address] PATHOLOGIST PROGRAM SUPPORT CLERK REJI SALAZAR M.D. Performed By: #### C UBLD, BMP, DIFF CBC, LACTIC, PATH SLIDE REV #### [address] Diff and CBCon 05-31-2023 Band form neutrophils/100 WBC (Bld) 3 % Normal 0-5 [facility] Comment on above: Performed By: #### C UBLD, BMP, DIFF CBC, LACTIC, PATH SLIDE REV #### [address] Eosinophils/100 WBC (Bld) 3 % Normal 1-3 [facility] Comment on above: Performed By: #### C UBLD, BMP, DIFF CBC, LACTIC, PATH SLIDE REV #### [address] Erythrocyte distribution width (RBC) [Ratio] 13.6 % Normal 11.9-15.3 [facility] Comment on above: Performed By: #### C UBLD, BMP, DIFF CBC, LACTIC, PATH SLIDE REV #### [address] Hematocrit (Bld) [Volume fraction] 34.3 % Normal 34.0-46.4 [facility] Comment on above: Performed By: #### C UBLD, BMP, DIFF CBC, LACTIC, PATH SLIDE REV #### [address] Hemoglobin (Bld) [Mass/Vol] 11.5 g/dL Low 11.8-15.4 [facility] Comment on above: Performed By: #### C UBLD, BMP, DIFF CBC, LACTIC, PATH SLIDE REV #### [address] Lymphocytes/100 WBC (Bld) 38 % Normal 18-42 [facility] Comment on above: Performed By: #### C UBLD, BMP, DIFF CBC, LACTIC, PATH SLIDE REV #### [address] MCH (RBC) [Entitic mass] 31.2 pg Normal 24.7-34.3 [facility] Comment on above: Performed By: #### C UBLD, BMP, DIFF CBC, LACTIC, PATH SLIDE REV #### [address] MCV (RBC) [Entitic vol] 92.8 fL Normal 80-100 [facility] Comment on above: Performed By: #### C UBLD, BMP, DIFF CBC, LACTIC, PATH SLIDE REV #### [address] Mean Corpuscular HGB Conc 33.6 g/dL Normal 32.0-35.0 [facility] Comment on above: Performed By: #### C UBLD, BMP, DIFF CBC, LACTIC, PATH SLIDE REV #### [address] Metamyelocytes 8 % High 0-0 [facility] Comment on above: Performed By: #### C UBLD, BMP, DIFF CBC, LACTIC, PATH SLIDE REV #### [address] Monocytes/100 WBC (Bld) 4 % Normal 2-11 [facility] Comment on above: Performed By: #### C UBLD, BMP, DIFF CBC, LACTIC, PATH SLIDE REV #### [address] Myelocytes 6 % High 0-0 [facility] Comment on above: Performed By: #### C UBLD, BMP, DIFF CBC, LACTIC, PATH SLIDE REV #### [address] Platelet Estimate Increased Normal Normal [facility] Comment on above: Performed By: #### C UBLD, BMP, DIFF CBC, LACTIC, PATH SLIDE REV #### [address] Platelet mean volume (Bld) [Entitic vol] 6.1 fL Low 6.3-10.7 [facility] Comment on above: Performed By: #### C UBLD, BMP, DIFF CBC, LACTIC, PATH SLIDE REV #### [address] Platelet Morphology Normal Normal Normal [facility] Comment on above: Result Comment: PERF ORMED BY: [place] [address] PATHOLOGIST PROGRAM SUPPORT CLERK REJI SALAZAR M.D. Performed By: #### C UBLD, BMP, DIFF CBC, LACTIC, PATH SLIDE REV #### [address] Platelets (Bld) [#/Vol] 465 10*3/uL High 150-450 [facility] Comment on above: Performed By: #### C UBLD, BMP, DIFF CBC, LACTIC, PATH SLIDE REV #### [address] Polychromasia Slight Normal [facility] Comment on above: Performed By: #### C UBLD, BMP, DIFF CBC, LACTIC, PATH SLIDE REV #### [address] Promyelocytes 1 % High 0-0 [facility] Comment on above: Performed By: #### C UBLD, BMP, DIFF CBC, LACTIC, PATH SLIDE REV #### [address] RBC (Bld) [#/Vol] 3.70 10*6/uL Normal 3.60-5.00 [facility] Comment on above: Performed By: #### C UBLD, BMP, DIFF CBC, LACTIC, PATH SLIDE REV #### [facility] [address] [place] [address] [place] RBC morphology finding Nom (Bld) Normal Normal Normal [facility] Comment on above: Performed By: #### C UBLD, BMP, DIFF CBC, LACTIC, PATH SLIDE REV #### [facility] [address] [place] [address] [place] Segmented neutrophils/100 WBC (Bld) 38 % Low 50-70 [facility] Comment on above: Performed By: #### C UBLD, BMP, DIFF CBC, LACTIC, PATH SLIDE REV #### [facility] [address] [place] [address] [place] WBC (Bld) [#/Vol] 10.5 10*3/uL Normal 3.8-11.6 [facility] Comment on above: Performed By: #### C UBLD, BMP, DIFF CBC, LACTIC, PATH SLIDE REV #### [facility] [address] [place] [address] [place] Lactate [Moles/volume] in Se rum or PlasmaOrdered By: Anamaria Benton on 05-31-2023 Lactate [Moles/Vol] 1.4 mmol/L Normal 0.5-2.2 [facility] Comment on above: Result Comment: PERF ORMED BY: [place] [address] PATHOLOGIST PROGRAM SUPPORT CLERK REJI SALAZAR M.D. Performed By: #### C UBLD, BMP, DIFF CBC, LACTIC, PATH SLIDE REV #### [place] [address] [place] Metamyelocytes/100 WBC Manua l cnt (Bld)Ordered By: Arvind Regan on 05-31-2023 Metamyelocytes/100 WBC (Bld) 8 % 0-0 [facility] No Panel InformationOrdered By: Arvind Regan on 05-31-2023 Slides for Pathologist Review Ordered path review [facility] Pathologist Slide Reviewon 0 05-31-2023 Pathologist Slide Review Ordered Path Review Normal [facility] Comment on above: Result Comment: PERF ORMED BY: [place] [address] PATHOLOGIST PROGRAM SUPPORT CLERK REJI SALAZAR M.D. Performed By: #### C UBLD, BMP, DIFF CBC, LACTIC, PATH SLIDE REV #### [place] [id number] [facility] Polychromasia [Presence] in Blood by Light microscopyOrdered By: Arvind Murdocksein on 05-31-2023 Polychromasia LM Ql (Bld) Slight [facility] Promyelocytes/100 WBC Manual cnt (Bld)Ordered By: Arvind Murdocksein on 05-31-2023 Promyelocytes/100 WBC (Bld) 1 % 0-0 [facility] Serum or plasma trough vanco mycin levelOrdered By: Arvnid Regan on 05-31-2023 Vancomycin trough [Mass/Vol] 7.4 ug/mL 10.0-20.0 [facility] Comment on above: Last dose: - Vancomycin,Troughon 05-31-19 Vancomycin,Trough 7.4 ug/mL Low 10.0-20.0 [facility] Comment on above: Order Comment: Time of next dose? 399 Date of last dose?: 20230530 Time of last dose?: 1842 Result Comment: Last dose: - PERFORMED BY: [place] [address] PATHOLOGIST PROGRAM SUPPORT CLERK REJI SALAZAR M.D. Performed By: #### C UBLD, BMP, DIFF CBC, LACTIC, PATH SLIDE REV #### [place] [id number] [place] Basophils/100 leukocytes in Blood by Manual countOrdered By: Arvind Regan on 05-30-2023 Basophils/100 WBC (Bld) 0 % Normal 0-2 [facility] Comment on above: Performed By: #### M G, DIFF CBC, CMP #### [place] [address] [facility] Comprehensive Metabolic Pane carlos 05-30-2023 Albumin [Mass/Vol] 3.4 g/dL Low 3.5-5.7 [facility] Comment on above: Performed By: #### M G, DIFF CBC, CMP #### [facility] [address] [place] [address] [place] Albumin/Globulin [Mass ratio] 1.3 {ratio} Normal [facility] Comment on above: Performed By: #### M G, DIFF CBC, CMP #### [facility] [address] ALP [Catalytic activity/Vol] 49 U/L Normal 34-104 [facility] Comment on above: Performed By: #### M G, DIFF CBC, CMP #### [facility] [address] ALT [Catalytic activity/Vol] 19 U/L Normal 7-52 [facility] Comment on above: Performed By: #### M G, DIFF CBC, CMP #### [facility] [address] Anion gap [Moles/Vol] 10.6 mmol/L Normal 6.0-15.0 [facility] Comment on above: Performed By: #### M G, DIFF CBC, CMP #### [facility] [address] [place] [address] [place] AST [Catalytic activity/Vol] 12 U/L Low 13-39 [facility] Comment on above: Performed By: #### M G, DIFF CBC, CMP #### [place] [address] [place] Bilirubin [Mass/Vol] 0.2 mg/dL Low 0.3-1.0 [facility] Comment on above: Performed By: #### M G, DIFF CBC, CMP #### [facility] [address] [place] [address] [place] Calcium [Mass/Vol] 8.6 mg/dL Normal 8.6-10.3 [facility] Comment on above: Performed By: #### M G, DIFF CBC, CMP #### [facility] [address] [place] [address] [place] Chloride [Moles/Vol] 102 mmol/L Normal 98-107 [facility] Comment on above: Performed By: #### M G, DIFF CBC, CMP #### [facility] [address] CO2 [Moles/Vol] 28.4 mmol/L Normal 21.0-31.0 The [facility] Comment on above: Performed By: #### M G, DIFF CBC, CMP #### [address] Creatinine [Mass/Vol] 0.46 mg/dL Low 0.60-1.20 [facility] Comment on above: Performed By: #### M G, DIFF CBC, CMP #### [facility] [address] [place] [address] [place] Creatinine Clr Calc Pharmacy 179.58 Normal [facility] Comment on above: Performed By: #### M G, DIFF CBC, CMP #### [facility] [address] [place] [address] [place] GFR/1.73 sq M.predicted MDRD (S/P/Bld) [Vol rate/Area] mL/min/{1.73_m2} Normal [facility] Comment on above: Performed By: #### M G, DIFF CBC, CMP #### [facility] [address] [place] [address] [place] Globulin (S) [Mass/Vol] 2.7 g/dL Normal T he [facility] Comment on above: Performed By: #### M G, DIFF CBC, CMP #### [place] [address] [place] Glucose [Mass/Vol] 89 mg/dL Normal 70-100 [facility] Comment on above: Result Comment: [facility] Glucose Reference Range is dependent on time and content of last meal. Glucose of more than 200 mg/dL in a nonstressed, ambulatory subject supports the diagnosis of Diabetes Mellitus. ADA recommended reference range Performed By: #### M G, DIFF CBC, CMP #### [facility] [address] Potassium [Moles/Vol] 4.0 mmol/L Normal 3.5-5.1 [facility] Comment on above: Performed By: #### M G, DIFF CBC, CMP #### [facility] [address] Protein [Mass/Vol] 6.1 g/dL Low 6.4-8.9 [facility] Comment on above: Performed By: #### M G, DIFF CBC, CMP #### [facility] [address] Sodium [Moles/Vol] 137 mmol/L Normal 136-145 [facility] Comment on above: Performed By: #### M G, DIFF CBC, CMP #### [address] Urea nitrogen [Mass/Vol] 12 mg/dL Normal 7-25 [facility] Comment on above: Performed By: #### M G, DIFF CBC, CMP #### [facility] [address] Diff and CBCon 05-30-2023 Band form neutrophils/100 WBC (Bld) 1 % Normal 0-5 [facility] Comment on above: Performed By: #### M G, DIFF CBC, CMP #### [address] Eosinophils/100 WBC (Bld) 0 % Low 1-3 [facility] Comment on above: Performed By: #### M G, DIFF CBC, CMP #### [address] Erythrocyte distribution width (RBC) [Ratio] 13.8 % Normal 11.9-15.3 [facility] Comment on above: Performed By: #### M G, DIFF CBC, CMP #### [address] Hematocrit (Bld) [Volume fraction] 30.4 % Low 34.0-46.4 [facility] Comment on above: Performed By: #### M G, DIFF CBC, CMP #### [address] Hemoglobin (Bld) [Mass/Vol] 10.3 g/dL Low 11.8-15.4 [facility] Comment on above: Performed By: #### M G, DIFF CBC, CMP #### [address] Lymphocytes/100 WBC (Bld) 31 % Normal 18-42 [facility] Comment on above: Performed By: #### M G, DIFF CBC, CMP #### [address] MCH (RBC) [Entitic mass] 31.2 pg Normal 24.7-34.3 [facility] Comment on above: Performed By: #### M G, DIFF CBC, CMP #### [address] MCV (RBC) [Entitic vol] 92.2 fL Normal 80-100 T [facility] Comment on above: Performed By: #### M G, DIFF CBC, CMP #### [address] Mean Corpuscular HGB Conc 33.8 g/dL Normal 32.0-35.0 [facility] Comment on above: Performed By: #### M G, DIFF CBC, CMP #### [address] Metamyelocytes 4 % High 0-0 The [facility] Comment on above: Performed By: #### M G, DIFF CBC, CMP #### [address] Monocytes/100 WBC (Bld) 8 % Normal 2-11 [facility] Comment on above: Performed By: #### M G, DIFF CBC, CMP #### [address] Myelocytes 1 % High 0-0 [facility] Comment on above: Performed By: #### M G, DIFF CBC, CMP #### [address] Platelet Estimate Normal Normal Normal [facility] Comment on above: Performed By: #### M G, DIFF CBC, CMP #### [facility] [address] [place] [address] [place] Platelet mean volume (Bld) [Entitic vol] 6.4 fL Normal 6.3-10.7 [facility] Comment on above: Performed By: #### M G, DIFF CBC, CMP #### [address] Platelet Morphology Normal Normal Normal The [facility] Comment on above: Result Comment: PERF ORMED BY: [place] [address] PATHOLOGIST PROGRAM SUPPORT CLERK REJI SALAZAR M.D. Performed By: #### M G, DIFF CBC, CMP #### [place] [address] [place] Platelets (Bld) [#/Vol] 418 10*3/uL Normal 150-450 [facility] Comment on above: Performed By: #### M G, DIFF CBC, CMP #### [address] RBC (Bld) [#/Vol] 3.30 10*6/uL Low 3.60-5.00 [facility] Comment on above: Performed By: #### M G, DIFF CBC, CMP #### [address] RBC morphology finding Nom (Bld) Normal Normal Normal [facility] Comment on above: Performed By: #### M G, DIFF CBC, CMP #### [place] [address] [place] Segmented neutrophils/100 WBC (Bld) 55 % Normal 50-70 [facility] Comment on above: Performed By: #### M G, DIFF CBC, CMP #### [facility] [address] [place] [address] [place] WBC (Bld) [#/Vol] 13.4 10*3/uL High 3.8-11.6 [facility] Comment on above: Performed By: #### M G, DIFF CBC, CMP #### [place] [address] [place] Magnesium [Mass/volume] in S marimar or PlasmaOrdered By: Arvind Regan on 05-30-2023 Magnesium [Mass/Vol] 1.8 mg/dL Low 1.9-2.7 [facility] Comment on above: Result Comment: PERF ORMED BY: [place] [address] PATHOLOGIST PROGRAM SUPPORT CLERK REJI SALAZAR M.D. Performed By: #### M G, DIFF CBC, CMP #### [address] Vancomycin [Mass/volume] in Serum or Plasma --peakOrdered By: Arvind Poncein on 05-30-2023 Vancomycin peak [Mass/Vol] 14.1 ug/mL 20.0-40.0 [facility] Comment on above: Last dose: - Vancomycin,Peakon 05-30-2023 Vancomycin,Peak 14.1 ug/mL Low 20.0-40.0 The [facility] Comment on above: Order Comment: Comme nt ?DRAW 1 HOUR AFTER INFUSION COMPLETES AB 1944 per RN said draw at 2230 AB 8 Date of last dose?: 20230530 Time of last dose?: 1700 Result Comment: Last dose: - PERFORMED BY: [place] [address] PATHOLOGIST PROGRAM SUPPORT CLERK REJI SALAZAR M.D. Performed By: #### C UBLD, BMP, DIFF CBC, LACTIC, PATH SLIDE REV #### [address] GHULAM with Reflexon 05-29-2023 GHULAM with Reflex Negative Normal Negative [facility] Comment on above: Result Comment: Perf ormed at: - [facility] [address] [id number] Portfolio Architect: Tyrell Fernandez PhD, Phone: [phone] PERFORMED BY: [place] [address] PATHOLOGIST PROGRAM SUPPORT CLERK REJI SALAZAR M.D. Performed By: #### C UBLD, BMP, DIFF CBC, LACTIC, PATH SLIDE REV #### [place] [id number] [facility] Anisocytosis [Presence] in B lood by Light microscopyOrdered By: Venita Amanda on 05-29-2023 Anisocytosis Ql (Bld) Slight Normal [facility] Comment on above: Performed By: #### C UBLD, BMP, DIFF CBC, LACTIC, PATH SLIDE REV #### [facility] [address] Bacterial blood cultureOrder ed By: Venita Amanda on 05-29-2023 Bacteria identified Cx Nom (Bld) NO GROWTH 5 DAYS [facility] Bacteria identified Cx Nom (Bld) NO GROWTH 5 DAYS [facility] Basic Metabolic Panelon Anion gap [Moles/Vol] Not performed Normal 6.0-15.0 [facility] Comment on above: Performed By: #### C UBLD, BMP, DIFF CBC, LACTIC, PATH SLIDE REV #### [address] Creatinine Clr Calc Pharmacy 149.21 Normal [facility] Comment on above: Result Comment: PERF ORMED BY: [place] [address] PATHOLOGIST PROGRAM SUPPORT CLERK REJI SALAZAR M.D. Performed By: #### C UBLD, BMP, DIFF CBC, LACTIC, PATH SLIDE REV #### [address] GFR/1.73 sq M.predicted MDRD (S/P/Bld) [Vol rate/Area] mL/min/{1.73_m2} Normal [facility] Comment on above: Performed By: #### C UBLD, BMP, DIFF CBC, LACTIC, PATH SLIDE REV #### [facility] [address] Potassium Normal 3.5-5.1 [facility] Comment on above: Result Comment: Spec imen hemolyzed, redraw requested Performed By: #### C UBLD, BMP, DIFF CBC, LACTIC, PATH SLIDE REV #### [facility] [address] [place] [address] [place] Basophils Auto (Bld) [#/Vol] Ordered By: Venita Amanda on 05-29-2023 Basophils (Bld) [#/Vol] N/A F [facility] Basophils/100 WBC Auto (Bld) Ordered By: Venita Amanda on 05-29-2023 Basophils/100 WBC (Bld) N/A F [facility] Blood Cultureon 05-29-2023 Bacteria identified Cx Nom (Bld) NO GROWTH 5 DAYS PERFORMED BY: [place] [address] PATHOLOGIST PROGRAM SUPPORT CLERK REJI SALAZAR M.D. Normal [facility] Comment on above: Performed By: #### C UBLD #### [address] Bacteria identified Cx Nom (Bld) NO GROWTH 5 DAYS PERFORMED BY: [place] [address] PATHOLOGIST PROGRAM SUPPORT CLERK REJI SALAZAR M.D. Normal [facility] Comment on above: Performed By: #### C UBLD, BMP, DIFF CBC, LACTIC, PATH SLIDE REV #### [address] facial bones w conon CT facial bones w con [facility] [address] [place] [address] CT Scan Report Signed Patient: Migdalia Connelly MR#: [id number] : 1985 Acct:[id number] Age/Sex: 37 / F ADM Date: 05/29/23 Loc: ER Room: Type: [facility] ER Attending Dr: Copies to: Venita [...] DISEASE. Impression dictated by: Rickie Smith Jr., Ann.OTien05/29/2023 2:48 PM Dictation Location: [place] [address] Transcribed By: [facility] 05/29/23 1448 Dictated By: Rickie Smith Jr, DO 05/29/23 1443 Signed By: 05/29/23 1448 Normal [facility] Calcium [Mass/volume] in Ser um or PlasmaOrdered By: Venita Amanda on 05-29-2023 Calcium [Mass/Vol] 9.0 mg/dL Normal 8.6-10.3 [facility] Comment on above: Performed By: #### C UBLD, BMP, DIFF CBC, LACTIC, PATH SLIDE REV #### [facility] [address] [place] [address] [place] Carbon dioxide, total [Moles /volume] in Serum or PlasmaOrdered By: Venita Amanda on 05-29-2023 CO2 [Moles/Vol] 24.6 mmol/L Normal 21.0-31.0 [facility] Comment on above: Performed By: #### C UBLD, BMP, DIFF CBC, LACTIC, PATH SLIDE REV #### [facility] [address] [place] [id number] [place] Chloride [Moles/volume] in S marimar or PlasmaOrdered By: Venita Amanda on 05-29-2023 Chloride [Moles/Vol] 99 mmol/L Normal 98-107 [facility] Comment on above: Performed By: #### C UBLD, BMP, DIFF CBC, LACTIC, PATH SLIDE REV #### [address] Creatinine [Mass/volume] in Serum or PlasmaOrdered By: Venita Amanda on 05-29-2023 Creatinine [Mass/Vol] 0.55 mg/dL Low 0.60-1.20 [facility] Comment on above: Performed By: #### C UBLD, BMP, DIFF CBC, LACTIC, PATH SLIDE REV #### [address] Diff and CBCon 05-29-2023 Hypochromasia Slight Normal [facility] Comment on above: Performed By: #### C UBLD, BMP, DIFF CBC, LACTIC, PATH SLIDE REV #### [address] Mean Corpuscular HGB Conc 33.2 g/dL Normal 32.0-35.0 [facility] Comment on above: Performed By: #### C UBLD, BMP, DIFF CBC, LACTIC, PATH SLIDE REV #### [address] Metamyelocytes 4 % High 0-0 [facility] Comment on above: Performed By: #### C UBLD, BMP, DIFF CBC, LACTIC, PATH SLIDE REV #### [address] Monocytes/100 WBC (Bld) 18.14 % Normal 0.00-20.00 T [facility] Comment on above: Performed By: #### C UBLD, BMP, DIFF CBC, LACTIC, PATH SLIDE REV #### [address] Myelocytes 12 % High 0-0 [facility] Comment on above: Performed By: #### C UBLD, BMP, DIFF CBC, LACTIC, PATH SLIDE REV #### [address] Platelet Estimate Normal Normal Normal [facility] Comment on above: Performed By: #### C UBLD, BMP, DIFF CBC, LACTIC, PATH SLIDE REV #### [address] Platelet Morphology Normal Normal Normal [facility] Comment on above: Result Comment: PERF ORMED BY: [place] [address] PATHOLOGIST PROGRAM SUPPORT CLERK REJI SALAZAR M.D. Performed By: #### C UBLD, BMP, DIFF CBC, LACTIC, PATH SLIDE REV #### [address] Polychromasia Slight Normal [facility] Comment on above: Performed By: #### C UBLD, BMP, DIFF CBC, LACTIC, PATH SLIDE REV #### [address] Eosinophils Auto (Bld) [#/Vo l]Ordered By: Venita Amanda on 05-29-2023 Eosinophils (Bld) [#/Vol] N/A [facility] Eosinophils/100 WBC Auto (Bl d)Ordered By: Venita Amanda on 05-29-2023 Eosinophils/100 WBC (Bld) N/A [facility] Erythrocyte distribution wid th [Ratio] by Automated countOrdered By: Venita Amanda on 05-29-2023 Erythrocyte distribution width (RBC) [Ratio] 13.7 % Normal 11.9-15.3 [facility] Comment on above: Performed By: #### C UBLD, BMP, DIFF CBC, LACTIC, PATH SLIDE REV #### [address] Erythrocytes [#/volume] in B lood by Automated countOrdered By: Venita Amanda on 05-29-2023 RBC (Bld) [#/Vol] 3.82 10*6/uL Normal 3.60-5.00 [facility] Comment on above: Performed By: #### C UBLD, BMP, DIFF CBC, LACTIC, PATH SLIDE REV #### [place] [address] [place] Glucose [Mass/volume] in Ser um or PlasmaOrdered By: Venita Amanda on 05-29-2023 Glucose [Mass/Vol] 163 mg/dL High 70-100 [facility] Comment on above: ADA recommended refe rence rangeRandom Glucose Reference Range is dependent on time and content of last meal. Glucose of more than 200 mg/dL in a nonstressed, ambulatory subject supports the diagnosis of Diabetes Mellitus. Result Comment: [place] om Glucose Reference Range is dependent on time and content of last meal. Glucose of more than 200 mg/dL in a nonstressed, ambulatory subject supports the diagnosis of Diabetes Mellitus. ADA recommended reference range Performed By: #### C UBLD, BMP, DIFF CBC, LACTIC, PATH SLIDE REV #### [facility] [address] [place] [address] Hematocrit [Volume Fraction] of Blood by Automated countOrdered By: Venita Amanda on 05-29-2023 Hematocrit (Bld) [Volume fraction] 35.6 % Normal 34.0-46.4 [facility] Comment on above: Performed By: #### C UBLD, BMP, DIFF CBC, LACTIC, PATH SLIDE REV #### [facility] [address] Hemoglobin [Mass/volume] in BloodOrdered By: Venita Amanda on 05-29-2023 Hemoglobin (Bld) [Mass/Vol] 11.8 g/dL Normal 11.8-15.4 [facility] Comment on above: Performed By: #### C UBLD, BMP, DIFF CBC, LACTIC, PATH SLIDE REV #### [facility] [address] [place] [address] Hypochromia LM Ql (Bld)Order ed By: Venita Amanda on 05-29-2023 Hypochromia Ql (Bld) Slight [facility] Carlos 05-29-2023 L Specimen: [id number] Received: 05/29/23 Status: SOUT Req Num: [id number] Spec Type: Impression Subm Dr: Venita Amanda APRN Tissues: PATHPER Procedures: PATHREVIEW Age/ Patient Sex Location Account Attending Physician Migdalia Connelly 37/F 4N [id number] Rico Romero DO SPEC NUM: [id number] RECD: 05/29/23 STATUS: LYDIA JAMAAL NUM: [id number] BRUNO: 05/29/23- SUBM DR: Venita Amanda APRN ENTERED: 05/29/[address]: MYLES STAFF SPEC TYPE: Impression DEPT: PA ENTERED BY: [id number] RECV BY: [id number] ORDERED: PATHREVIEW ORDERED: PATHREVIEW Pathologist Review Abnormal [...] 11.8-15.4 g/dL HCT 35.6 34.0-46.4 % Specimen: [id number] Received: 05/29/23 Status: LYDIA Jamaal Num: [id number] Spec Type: Impression Subm Dr: Venita Amanda APRN Tissues: PATHPER Procedures: PATHREVIEW Patient: Migdalia Connelly [id number] (Continued) Specimen: [id number] Received: 05/29/23 (Continued) LE (Continued) Signed (signature on file) Sharonda Mack MD 06/06/23 0920 Specimen: [id number] Received: 05/29/23 Status: LYDIA Samuels Num: [id number] Spec Type: Impression Subm Dr: Venita Amanda APRN Tissues: PATHPER Procedures: PATHREVIEW Patient: Migdalia Connelly [id number] (Continued) Specimen: [id number] Received: 05/29/23 (Continued) CBC (Continued) MCV 93.2 80-100 fl MCH 31.0 24.7-34.3 pg MCHC 33.2 32.0-35.0 g/dL RDW 13.7 11.9-15.3 % Plt 403 150-450 x10E3/uL MPV 6.4 6.3-10.7 fl Seg 59 50-70 % Band 1 0-5 % Lymph 23 18-42 % [place] 1 L 2-11 % [place] 4 H 0-0 % Myelo 12 H 0-0 % Polychrom Slight Hypochrom Slight [place] Slight Plt Est Normal Normal Plt Morphology Normal Normal Specimen: [id number] Received: 05/29/23 Status: LYDIA Samuels Num: [id number] Spec Type: Impression Subm Dr: Venita Amanda APRN Tissues: PATHPER Procedures: PATHREVIEW Patient: Migdalia Connelly [id number] (Continued) Signed (signature on file) Martinez-Blu Mack MD 06/06/23 0920 Normal [facility] Lactate [Moles/volume] in Se rum or PlasmaOrdered By: Venita Amanda on 05-29-2023 Lactate [Moles/Vol] 3.0 mmol/L Off scale high 0.5-2.2 F [facility] Comment on above: Critical valueresult calledat 1423 on 05/29/23--- 05/29/23 1424 ---Lactic previously reported as: 3.0 *H mmol/L Result Comment: Crit ical value result called at 1423 on 05/29/23 --- 05/29/23 1424 --- Lactic previously reported as: 3.0 *H mmol/L PERFORMED BY: [address] [place] [address] PATHOLOGIST PROGRAM SUPPORT CLERK REJI SALAZAR M.D. Performed By: #### C UBLD, BMP, DIFF CBC, LACTIC, PATH SLIDE REV #### [facility] [address] Lactic Acid Reflexon 024 Lactic Acid Reflex 2.9 mmol/L Off scale high 0.5-2.2 Th [facility] Comment on above: Result Comment: Crit ical Result : Called to and read back by: RENATO RODRIGUEZ at: 05/29/2023 18:39:12 by:[email or web address] PERFORMED BY: [place] [address] PATHOLOGIST PROGRAM SUPPORT CLERK REJI SALAZAR M.D. Performed By: #### L ACTIC RFX #### [address] Leukocytes [#/volume] correc kristian for nucleated erythrocytes in Blood by Automated counOrdered By: Venita Amanda on 05-29-2023 WBC corrected for nucl RBC Auto (Bld) [#/Vol] 8.7 10*3/uL 3.8-11.6 [facility] Leukocytes [#/volume] in Blo od by Automated countOrdered By: Venita Amanda on 05-29-2023 WBC (Bld) [#/Vol] 8.7 10*3/uL Normal 3.8-11.6 [facility] Comment on above: Performed By: #### C UBLD, BMP, DIFF CBC, LACTIC, PATH SLIDE REV #### [address] Lymphocytes Auto (Bld) [#/Vo l]Ordered By: Venita Amanda on 05-29-2023 Lymphocytes (Bld) [#/Vol] N/A [facility] Lymphocytes/100 WBC Auto (Bl d)Ordered By: Venita Amanda on 05-29-2023 Lymphocytes/100 WBC (Bld) N/A [facility] Lymphocytes/100 leukocytes i n Blood by Manual countOrdered By: Venita Amanda on 05-29-2023 Lymphocytes/100 WBC (Bld) 23 % Normal 18-42 [facility] Comment on above: Performed By: #### C UBLD, BMP, DIFF CBC, LACTIC, PATH SLIDE REV #### [address] MCH [Entitic mass] by Automa kristian countOrdered By: Venita Amanda on 05-29-2023 MCH (RBC) [Entitic mass] 31.0 pg Normal 24.7-34.3 [facility] Comment on above: Performed By: #### C UBLD, BMP, DIFF CBC, LACTIC, PATH SLIDE REV #### [facility] [address] MCHC Auto (RBC) [Mass/Vol]Or dered By: Venita Amanda on 05-29-2023 MCHC (RBC) [Mass/Vol] 33.2 g/dL 32.0-35.0 [facility] MCV [Entitic volume] by Auto mated countOrdered By: Venita Amanda on 05-29-2023 MCV (RBC) [Entitic vol] 93.2 fL Normal 80-100 F [facility] Comment on above: Performed By: #### C UBLD, BMP, DIFF CBC, LACTIC, PATH SLIDE REV #### [facility] [address] Manual blood segmented neutr ophils/100 leukocytesOrdered By: Venita Amanda on 05-29-2023 Segmented neutrophils/100 WBC (Bld) 59 % Normal 50-70 [facility] Comment on above: Performed By: #### C UBLD, BMP, DIFF CBC, LACTIC, PATH SLIDE REV #### [facility] [address] [place] [address] [place] Metamyelocytes/100 WBC Manua l cnt (Bld)Ordered By: Venita Amanda on 05-29-2023 Metamyelocytes/100 WBC (Bld) 4 % 0-0 [facility] Monocyte distribution width [Entitic volume] in Blood by AutomatedOrdered By: Venita Amanda on 05-29-2023 Monocyte distribution width Auto (Bld) [Entitic vol] 18.14 % 0.00-20.00 [facility] Monocytes Auto (Bld) [#/Vol] Ordered By: Venita Amanda on 05-29-2023 Monocytes (Bld) [#/Vol] N/A F [facility] Monocytes/100 WBC Auto (Bld) Ordered By: Venita Amanda on 05-29-2023 Monocytes/100 WBC (Bld) N/A F [facility] Monocytes/100 leukocytes in Blood by Manual countOrdered By: Venita Amanda on 05-29-2023 Monocytes/100 WBC (Bld) 1 % Low 2-11 F [facility] Comment on above: Performed By: #### C UBLD, BMP, DIFF CBC, LACTIC, PATH SLIDE REV #### [facility] [address] [place] [address] [place] Myelocytes/100 WBC Manual cn t (Bld)Ordered By: Venita Amanda on 05-29-2023 Myelocytes/100 WBC (Bld) 12 % 0-0 [facility] Neutrophils Auto (Bld) [#/Vo l]Ordered By: Venita Amanda on 05-29-2023 Neutrophils (Bld) [#/Vol] N/A [facility] Neutrophils/100 WBC Auto (Bl d)Ordered By: Venita Amanda on 05-29-2023 Neutrophils/100 WBC (Bld) N/A [facility] No Panel InformationOrdered By: Venita Amanda on 05-29-2023 Estimated GFR (CKD-EPI) > 60.0 mL/Min [facility] Pharmacy Creatinine Clearance (Chem 149.21 [facility] Slides for Pathologist Review Ordered path review [facility] Nucleated erythrocytes [Pres ence] in Blood by Automated countOrdered By: Venita Amanda on 05-29-2023 Nucleated RBC Auto Ql (Bld) N/A [facility] Pathologist Slide Reviewon 0 05-29-2023 Pathologist Slide Review Ordered Path Review Normal [facility] Comment on above: Result Comment: PERF ORMED BY: [place] [address] PATHOLOGIST PROGRAM SUPPORT CLERK REJI SALAZAR M.D. Performed By: #### C UBLD, BMP, DIFF CBC, LACTIC, PATH SLIDE REV #### [facility] [address] [place] [address] [place] Peripheral white blood cell differential % bands, microscopic examOrdered By: Venita Amanda on 05-29-2023 Band form neutrophils/100 WBC (Bld) 1 % Normal 0-5 [facility] Comment on above: Performed By: #### C UBLD, BMP, DIFF CBC, LACTIC, PATH SLIDE REV #### [facility] [address] [place] [address] [place] Platelet adequacy [Presence] in Blood by Light microscopyOrdered By: Venita Amanda on 05-29-2023 Platelets LM Ql (Bld) Normal Normal [facility] Platelet mean volume [Entiti c volume] in Blood by Automated countOrdered By: Venita Amanda on 05-29-2023 Platelet mean volume (Bld) [Entitic vol] 6.4 fL Normal 6.3-10.7 [facility] Comment on above: Performed By: #### C UBLD, BMP, DIFF CBC, LACTIC, PATH SLIDE REV #### [facility] [address] Platelet morphology finding [Identifier] in BloodOrdered By: Venita Amanda on 05-29-2023 Platelet morphology finding Nom (Bld) Normal Normal [facility] Platelets [#/volume] in Bloo d by Automated countOrdered By: Venita Amanda on 05-29-2023 Platelets (Bld) [#/Vol] 403 10*3/uL Normal 150-450 [facility] Comment on above: Performed By: #### C UBLD, BMP, DIFF CBC, LACTIC, PATH SLIDE REV #### [facility] [address] Polychromasia [Presence] in Blood by Light microscopyOrdered By: Venita Amanda on 05-29-2023 Polychromasia LM Ql (Bld) Slight [facility] Potassium [Moles/volume] in Serum or PlasmaOrdered By: Venita Amanda on 05-29-2023 Potassium [Moles/Vol] 4.0 mmol/L Normal 3.5-5.1 [facility] Comment on above: Order Comment: PREVI OUS SAMPLE HEMOLYZED Result Comment: PERF ORMED BY: [place] [address] PATHOLOGIST PROGRAM SUPPORT CLERK REJI SALAZAR M.D. Performed By: #### C UBLD, BMP, DIFF CBC, LACTIC, PATH SLIDE REV #### [facility] [address] [place] [address] [place] RBC morphologyOrdered By: Fredrick Amanda on 05-29-2023 RBC morphology finding Nom (Bld) N/A [facility] Serum or plasma anion gap de terminationOrdered By: Venita Amanda on 05-29-2023 Anion gap [Moles/Vol] TNP [facility] Comment on above: Test not performed Serum or plasma free cefurox jeni measurement (mass/volume)Ordered By: Arvind Regan on 05-29-2023 Cefuroxime free [Mass/Vol] Negative Negative [facility] Comment on above: Performed at: [address] [id number] Director: Tyrell Fernandez PhD, Phone: [phone] Sodium [Moles/volume] in Ser um or PlasmaOrdered By: Venita Amanda on 05-29-2023 Sodium [Moles/Vol] 134 mmol/L Low 136-145 [facility] Comment on above: Performed By: #### C UBLD, BMP, DIFF CBC, LACTIC, PATH SLIDE REV #### [facility] [address] Urea nitrogen [Mass/volume] in Serum or PlasmaOrdered By: Venita Amanda on 05-29-2023 Urea nitrogen [Mass/Vol] 11 mg/dL Normal 7-25 [facility] Comment on above: Performed By: #### C UBLD, BMP, DIFF CBC, LACTIC, PATH SLIDE REV #### [facility] [address] CarbamazepineOrdered By: SYS TEM SYSTEM on 04-13-2023 Carbamaz Lvl 6.9 microgram/mL Normal 4.0-12.0 [facility] Comment on above: Performed By: #### 2 [id number], [id number] #### [facility] [address] [place] [address] Physician Orderon 04-13-2023 Physician Order [id number] 0#1.00TIFF Normal [facility] SodiumOrdered By: SYSTEM SYS TEM on 04-13-2023 Sodium [Moles/Vol] 134 mmol/L Low 135-145 [facility] Comment on above: Performed By: #### 2 [id number], [id number] #### [facility] [address] [place] [address] CHEMISTRYOrdered By: SYSTEM SYSTEM on 02-23-2023 Carbamaz Lvl 8.7 microgram/mL Normal 4.0 - 12.0 mcg/mL Remisol Chem Sodium [Moles/Vol] 123 mmol/L Low 135 - 145 mmol/L Remisol Chem Carbamazepineon 02-23-2023 Carbamaz Lvl 8.7 microgram/mL Normal 4.0-12.0 [facility] Comment on above: Performed By: #### 2 [id number], [id number] #### [facility] [address] [place] [address] Physician Orderon 02-23-2023 Physician Order [id number] 6#1.00TIFF Normal [facility] Sodiumon 02-23-2023 Sodium [Moles/Vol] 123 mmol/L Low 135-145 [facility] Comment on above: Performed By: #### 2 [id number], [id number] #### [facility] [address] [place] [address] UA (CLEAN/CATCH) CAR USHER/MICRO I F IND.on 05-17-2022 Bilirubin Ql (U) Negative Normal NEGATIVE [facility] Comment on above: Performed By: #### U ACSIND #### [facility] [address] [place] [address] Dr. Pio Mack Clarity (U) CLEAR Normal CLEAR [facility] Comment on above: Performed By: #### U ACSIND #### [facility] [address] [place] [address] Dr. Pio Mack Color (U) LT. YELLOW Normal YELLOW [facility] Comment on above: Performed By: #### U ACSIND #### [facility] [address] [place] [address] Dr. Pio Mack Glucose Ql (U) Negative Normal NEGATIVE [facility] Comment on above: Performed By: #### U ACSIND #### [facility] [address] [place] [address] Dr. Pio Mack Hemoglobin Ql (U) Negative Normal NEGATIVE [facility] Comment on above: Performed By: #### U ACSIND #### [facility] [address] [place] [address] Dr. Pio Mack Ketones Ql (U) Negative Normal NEGATIVE [facility] Comment on above: Performed By: #### U ACSIND #### [facility] [address] [place] [address] Dr. Pio Makc LEUKOCYTES Negative Normal NEGATIVE [facility] Comment on above: Performed By: #### U ACSIND #### [facility] [address] [place] [address] [address] Pio Mack Nitrite Ql (U) Negative Normal NEGATIVE [facility] Comment on above: Performed By: #### U ACSIND #### [facility] [address] [place] [address] Dr. Pio Mack pH (U) 7.5 [pH] Normal 5-9 [facility] Comment on above: Performed By: #### U ACSIND #### [facility] [address] [place] [address] Dr. Pio Mack SPEC GRAVITY 1.010 Normal 1.005-<=1.02 5 [facility] Comment on above: Performed By: #### U ACSIND #### [facility] [address] [place] [address] Dr. Pio Mack UA PROTEIN Negative Normal NEGATIVE/ TRACE [facility] Comment on above: Performed By: #### U ACSIND #### [facility] [address] [place] [address] Dr. Pio Mack UR MICRO IND NOT INDICATED Normal [facility] Comment on above: Performed By: #### U ACSIND #### [facility] [address] [place] [address] Dr. Pio Mack Urobilinogen Qn (U) 0.2 {Polina'U}/dL Normal 0.2 - 1. 0 [facility] Comment on above: Performed By: #### U ACSIND #### [facility] [address] [place] [address] Dr. Pio Mack PAP ACOG PANEL 2: 30 to 65on 05-06-2022 . . Normal [facility] Comment on above: Result Comment: Perf ormed at: WB Performed By: #### 4 [id number] #### [facility] [address] [place] [address] [address] Pio Mack Age Gdln ACOG Testing 30-65 Normal [facility] Comment on above: Performed By: #### 4 [id number] #### [facility] [address] [place] [address] [address] Pio Mack DIAGNOSIS: Comment Normal [facility] Comment on above: Result Comment: NEGA TIVE FOR INTRAEPITHELIAL LESION OR MALIGNANCY. Performed at: WB Performed By: #### 4 [id number] #### [facility] [address] [place] [address] Dr. Pio Mack HPV Aptima Negative Normal Negative [facility] Comment on above: Result Comment: This nucleic acid amplification test detects fourteen high-risk HPV types (16,18,31,33,35,39,45,51,52,56,58,59,66,68) without differentiation. Performed at: =G Performed By: #### 4 [id number] #### [facility] [address] [place] [address] [address] Pio Mack HPV Genotype Reflex Comment Normal [facility] Comment on above: Result Comment: Crit eria not met, HPV Genotype not performed. Performed at: WB Performed By: #### 4 [id number] #### [facility] [address] [place] [address] [address] Pio Mack Methodology: Comment Normal [facility] Comment on above: Result Comment: This liquid based ThinPrep(R) pap test was screened with the use of an image guided system. Performed at: WB Performed By: #### 4 [id number] #### [facility] [address] [place] [address] Dr. Pio Mack Note: Comment Normal [facility] Comment on above: Result Comment: The Pap smear is a screening test designed to aid in the detection of premalignant and malignant conditions of the uterine cervix. It is not a diagnostic procedure and should not be used as the sole means of detecting cervical cancer. Both false-positive and false-negative reports do occur. . Performed at: WB Performed By: #### 4 [id number] #### [facility] [address] [place], [place] [address] Dr. Pio Mack Performed by: Comment Normal [facility] Comment on above: Result Comment: Ayesha Poe, Loom Operator (ASCP) Performed at: WB Performed By: #### 4 [id number] #### [facility] [address] [place], [place] [address] Dr. Pio Mack Specimen adequacy: Comment Normal [facility] Comment on above: Result Comment: Sati sfactory for evaluation. Endocervical and/or squamous metaplastic cells (endocervical component) are present. Performed at: WB Performed By: #### 4 [id number] #### [facility] [address] [place], [place] [address] Dr. Pio Mack Vital Signs Date Time Vital Sign Value Performing Clinician Faci lity 08-06-2023 22:14-0400 Diastolic blood pressure 81 mm[Hg] IRON GUARDRAIL INSTALLER Venita myaNUMBER Work Phone: [facility] 08-06-2023 22:14-0400 Heart rate 85 /min IRON GUARDRAIL INSTALLER Venita myaNUMBER Work Phone: [facility] 08-06-2023 22:14-0400 Respiratory rate 22 /min IRON GUARDRAIL INSTALLERSherlyn Nathan myaNUMBER Work Phone: [facility] 08-06-2023 22:14-0400 SaO2% (BldA) [Mass fraction] 100 % IRON GUARDRAIL INSTALLER Venita [employer] Work Phone: [facility] 08-06-2023 22:14-0400 Systolic blood pressure 142 mm[Hg] IRON GUARDRAIL INSTALLER Venita [employer] Work Phone: [facility] 08-06-2023 19:54-0400 Body height 163.83 cm IRON GUARDRAIL INSTALLER Venita myaNUMBER Work Phone: [facility] 08-06-2023 19:54-0400 Body temperature 98.2 [degF] IRON GUARDRAIL INSTALLER Venita Saffle Work Phone: [facility] 08-06-2023 19:54-0400 Body weight 82 kg IRON GUARDRAIL INSTALLER Venita Saffle Work Phone: [facility] 06-01-2023 12:00-0400 Body temperature 97.3 [degF] IRON GUARDRAIL INSTALLER Venita Saffle Work Phone: [facility] 06-01-2023 12:00-0400 Diastolic blood pressure 81 mm[Hg] IRON GUARDRAIL INSTALLER Venita Saffle Work Phone: [facility] 06-01-2023 12:00-0400 Heart rate 82 /min IRON GUARDRAIL INSTALLER Venita Saffle Work Phone: [facility] 06-01-2023 12:00-0400 Respiratory rate 18 /min IRON GUARDRAIL INSTALLER Venita Saffle Work Phone: [facility] 06-01-2023 12:00-0400 SaO2% (BldA) [Mass fraction] 98 % IRON GUARDRAIL INSTALLER Venita Saffle Work Phone: [facility] 06-01-2023 12:00-0400 Systolic blood pressure 137 mm[Hg] IRON GUARDRAIL INSTALLER Venita Saffle Work Phone: [facility] 06-01-2023 06:00-0400 Body weight 82 kg IRON GUARDRAIL INSTALLER Venita Saffle Work Phone: [facility] 05-30-2023 12:46-0400 Body height 165.1 cm IRON GUARDRAIL INSTALLER Venita Saffle Work Phone: [facility] 05-29-2023 16:36-0400 Diastolic blood pressure 98 mm[Hg] [facility] 05-29-2023 16:36-0400 Systolic blood pressure 148 mm[Hg] [facility] 05-29-2023 15:48-0400 Body temperature 98.1 [degF] [facility] 05-29-2023 15:48-0400 Heart rate 90 /min [facility] 05-29-2023 15:48-0400 Respiratory rate 18 /min [facility] 05-29-2023 15:48-0400 SaO2% (BldA) [Mass fraction] 96 % [facility] 05-29-2023 13:05-0400 Body height 165.1 cm [facility] 05-29-2023 13:05-0400 Body weight 81.6 kg [facility] Encounters Encounter Date Encounter Type Care Provider Facility Start: 10-19-2023 End: 10-19-2023 Patient encounter procedure Lizandro Plata DDS Work Phone: [facility] Comment on above: Caries (Primary Dx) Start: 10-19-2023 ambulatory UNKNOWN PROVIDER Facili ty:[facility] Start: 08-06-2023 End: 08-07-2023 Emergency department patient visit IMAN Francoistammy Work Phone: [facility] Work Phone: Start: 07-26-2023 End: 07-26-2023 ambulatory KAMINI D DOLCE Not Available Start: 07-14-2023 End: 07-14-2023 ambulatory DAMIEN JONES Not Available Start: 07-12-2023 End: 07-12-2023 ambulatory KAMINI D DOLCE Not Available Start: 06-28-2023 End: 06-28-2023 ambulatory KAMINI D DOLCE Not Available Start: 06-09-2023 ambulatory [facility] Start: 06-07-2023 End: 06-07-2023 ambulatory KAMINI D DOLCE Not Available Start: 05-30-2023 End: 06-01-2023 Evaluation and management of inpatient IMAN Amanda Work Phone: [facility] Work Phone: Start: 05-29-2023 Evaluation and management of inpatient [place] [address] [facility] Work Phone: Start: 05-29-2023 observation encounter NON STAFF [facility] Work Phone: Start: 05-29-2023 End: 06-01-2023 Non-patient / Non-visit [facility] Work Phone: Start: 05-25-2023 Orders Only Rickey perez MD Work Phone: [facility] Comment on above: Hyponatremia (Primar y Dx) Start: 05-04-2023 End: 05-04-2023 ambulatory KAMINI RAMIREZ Not Available Start: 04-13-2023 End: 04-14-2023 ambulatory LIO MUNREO Facility:[facility] Start: 04-13-2023 End: 04-13-2023 Lab Drop off LIO MUNROE [facility] Start: 02-23-2023 End: 02-23-2023 Lab Drop off LIO MUNROE [facility] Start: 02-23-2023 End: 02-24-2023 ambulatory LIO MUNROE Facility:[facility] Start: 07-21-[address] LIO MUNROE Fac ility:[facility] Start: 06-10-2022 End: 06-14-2022 Patient encounter procedure Scarlett Albarran DDS Work Phone: [facility] Start: 05-17-2022 End: 05-17-[address] LIO MUNROE Facility: Start: 04-28-2022 End: 04-28-[address] SONAL CARRERO . Facility: Start: 04-06-2022 Letter encounter David osorio Start: 05-08-2018 End: 05-12-2018 Patient encounter procedure PROVIDER NOT IN SYSTEM [facility] Procedures Date Procedure Procedure Detail Performing Clinician Start: 08-06-2023 SARS-CoV-2, Influenz a & RSV (PCR) IRON GUARDRAIL INSTALLERSherlyn Amanda Work Phone: Start: 05-29-2023 CT of facial bones w ith contrast Start: 05-29-2023 Blood culture for bacteria, including anaerobic screen IMAN Amanda Work Phone: Plan of Treatment Date Care Activity Detail Author Start: 2036 Shingles (RZV) Vacci ne (1 of 2) Shingles (RZV) Vaccine (1 of 2) [facility] Start: 11-11-2029 Tetanus vaccination Tetanus (T d or Tdap) [facility] Start: 11-22-2023 Influenza vaccination Influenza Vacc ine (#1) [facility] Start: 10-23-2023 Influenza vaccination Influenza Vacc ine [facility] Start: 08-06-2023 CT of head without contrast CT head/brain wo con [facility] Start: 08-06-2023 CT Unspecified body region WO contrast [facility] Start: 08-06-2023 Diagnostic radiograp hy of abdomen [facility] Start: 08-06-2023 Bacteria identified in Urine by Culture [facility] Start: 07-28-2023 End: 07-28-2023 Patient encounter procedure 07/28/2023 2:30 PM EDT Office Visit [facility] [address] [place] [address] Rickey Cade MD [address] [place] [address] [facility] Start: 06-09-2023 End: 06-09-2023 Patient encounter procedure 06/09/2023 10:00 AM EDT Office Visit [facility] [address] [place] [address] [facility] Start: 06-08-2023 [facility] Start: 06-07-2023 [facility] Start: 06-06-2023 [facility] Start: 06-05-2023 [facility] Start: 06-04-2023 [facility] Start: 06-03-2023 [facility] Start: 06-02-2023 [facility] Start: 06-01-2023 End: 06-01-2023 [facility] Start: 05-31-2023 [facility] Start: 05-30-2023 Comprehensive metabo lic 2000 panel - Serum or Plasma [facility] Start: 05-30-2023 End: 05-30-2023 [facility] Start: 05-29-2023 Hospital admission [facility] Start: 05-29-2023 [facility] Start: 05-29-2023 Bacteria identified in Blood by Culture [facility] Start: 05-29-2023 Blood culture for bacteria, including anaerobic screen Blood Culture [facility] Start: 05-29-2023 [facility] Start: 10-22-2022 COVID-19 Vaccine () COVID-19 Vaccine () [facility] Start: 05-03-2022 End: 05-03-2022 Patient encounter procedure 05/03/2022 Procedure Visit Dentistry Holli Nguyen, DDSylvia [address] [place] [address] [facility] Start: 11-21-2021 Influenza vaccination Influenza Vacc ine (#1) [facility] Start: 02-11-2021 COVID-19 Vaccine (4 - Booster for Pfizer series) COVID-19 Vaccine (4 - Booster for Pfizer series) [facility] Start: 2013 HPV Vaccine (optiona l start 27-45 years) HPV Vaccine (optional start 27-45 years) [facility] Start: 04-21-2008 Annual wellness visit Annual W ellness Visit (G0438) [facility] Start: 07-05-2007 Screening for malign ant neoplasm of cervix Pap Smear [facility] Start: 2005 DTaP,Tdap and Td Vaccines (1 - Tdap) DTaP,Tdap and Td Vaccines (1 - Tdap) Xamplified V[facility] Start: 2005 Hepatitis A (HAV) Vaccine (optional start 19+ years) Hepatitis A (HAV) Vaccine (optional start 19+ years) [facility] Start: 2004 Adult BMI Screening Adult BMI Screen ing [facility] Start: 2004 Hepatitis C screening Hepatitis C An tibody [facility] Start: 2001 HIV screening HIV Test [facility] Start: 1998 Depression Screening Depression Scre ening [facility] Start: 1998 Tobacco Screening Tobacco Screening [facility] Start: 1986 Screening for malign ant neoplasm of breast [facility] End: 05-24-2024 Basic metabolic 2000 panel - Serum or Plasma Basic Metabolic Panel Lab Routine Hyponatremia 1 Occurrences starting 05/25/2023 until 05/24/2024 [facility] Work Phone: Comment on above: 1 Occurrences starti ng 05/25/2023 until 05/24/2024 End: 05-24-2024 CBC panel - Blood by Automated count CBC without diff Lab Routine Hyponatremia 1 Occurrences starting 05/25/2023 until 05/24/[address] [facility] Comment on above: 1 Occurrences starti ng 05/25/2023 until 05/24/2024 Cefuroxime free [Mass/volume] in Serum or Plasma [facility] End: 05-24-2024 Magnesium [Mass/volume] in Serum or Plasma Magnesium Lab Routine Hyponatremia 1 Occurrences starting 05/25/2023 until 05/24/[address] [facility] Comment on above: 1 Occurrences starti ng 05/25/2023 until 05/24/2024 Patient Education Constipation, Adult (DC) Headache, Adult (DC) [facility] Work Phone: Patient referral [facility] Work Phone: End: 05-24-2024 Phosphate [Mass/volume] in Serum or Plasma Phosphorus Lab Routine Hyponatremia 1 Occurrences starting 05/25/2023 until 05/24/[address] [facility] Comment on above: 1 Occurrences starti ng 05/25/2023 until 05/24/2024 End: 05-24-2024 Protein creat ratio Protein creat ratio Lab Routine Hyponatremia 1 Occurrences starting 05/25/2023 until 05/24/[address] [facility] Comment on above: 1 Occurrences starti ng 05/25/2023 until 05/24/2024 End: 05-24-2024 Urinalysis Urinalysis Lab Routine Hyponatremia 1 Occurrences starting 05/25/2023 until 05/24/[address] [facility] Comment on above: 1 Occurrences starti ng 05/25/2023 until 05/24/2024 Immunizations Immunization Date Immunization Notes Care Provider Susi malone 12-17-2020 influenza, injectabl e, quadrivalent, preservative free [facility] 12-17-2020 influenza virus vacc ine, unspecified formulation [facility] 03-25-2020 Pfizer (12+ yrs) KAE S-COV-2 (COVID-19) vaccine, mRNA, spike protein, LNP, pres. free, 30 mcg/0.3mL dose (BSE=728) [facility] 03-04-2020 Pfizer (12+ yrs) KAE S-COV-2 (COVID-19) vaccine, mRNA, spike protein, LNP, pres. free, 30 mcg/0.3mL dose (OTC=187) [facility] 11-28-2019 influenza, injectabl e, quadrivalent, preservative free [facility] 11-12-2019 tetanus toxoid, redu naila diphtheria toxoid, and acellular pertussis vaccine, adsorbed [facility] 11-30-2017 influenza, injectabl e, quadrivalent, preservative free [facility] 12-15-2016 influenza, injectabl e, quadrivalent, contains preservative [facility] 12-12-2014 influenza, injectabl e, quadrivalent, preservative free [facility] 11-10-2010 influenza, seasonal, injectable [facility] 07-07-2006 meningococcal polysa ccharide (groups A, C, Y and W-135) diphtheria toxoid conjugate vaccine (MCV4P) [facility] 11-29-2001 TD(adult) unspecified formulation [facility] 05-04-2001 hepatitis B vaccine, pediatric or pediatric/adolescent dosage [facility] 11-10-2000 hepatitis B vaccine, pediatric or pediatric/adolescent dosage [facility] 10-10-2000 hepatitis B vaccine, pediatric or pediatric/adolescent dosage [facility] 05-30-1998 measles, mumps and r ubella virus vaccine [facility] 12-03-1991 TD(adult) unspecified formulation [facility] 12-03-1991 trivalent poliovirus vaccine, live, oral [facility] 09-06-1988 diphtheria, tetanus toxoids and pertussis vaccine [facility] 09-06-1988 trivalent poliovirus vaccine, live, oral [facility] 01-23-1988 haemophilus influenz ae type b vaccine, conjugate unspecified formulation [facility] 04-30-1987 measles, mumps and r ubella virus vaccine [facility] 1986 diphtheria, tetanus toxoids and pertussis vaccine [facility] 1986 diphtheria, tetanus toxoids and pertussis vaccine [facility] 1986 trivalent poliovirus vaccine, live, oral [facility] 1986 diphtheria, tetanus toxoids and pertussis vaccine [facility] 1986 trivalent poliovirus vaccine, live, oral [facility] Payers Date Payer Category Payer Medicaid [id number] 2007 Medicare MEDICARE MEDICAR E PART A & B [id number] 2007-Present [address] [place] [address] Medicare [id number] 1986 Unknown [id number] 1986 Unknown [id number] 1986 Unknown [id number] [id number] 1986 Unknown [id number] [id number] 1986 Unknown [id number] [id number] 1986 Unknown [id number] [id number] 1986 Unknown [id number] 2.16.840.1.184763.3.579.2.9 1986 Unknown [id number] [id number] 1986 Unknown [id number] 2.16.840.1.144293.3.579.2.9 1986 Unknown [id number] 2.16.840.1.049780.3.579.2.9 1986 Unknown [id number] [id number] 1986 Unknown [id number] [id number] 1986 Unknown [id number] [id number] 1959 Medicaid [id number] 1958 Medicare [id number] Medicare Medicare [id number] Social History Date Type Detail Facility [...] Tobacco smoking status No Smoking Status Entered [facility] Start: 07-15-2020 Sex Assigned At Female [facility] Start: 08-06-2023 Tobacco smoking status DEIS Tobacco smoking consumption unknown [facility] Start: 1985 Sex Assigned At Female [facility] Start: 07-15-2020 History of Social function [facility] NEGATED: Highlighted row [facility] Goals Date Patient Goal Desired Activity /State Functional Status Date Assessment Result Facility 06-01-2023 Functional status Patient at Baseline [facility] Work Phone: Mental Status Date Assessment Result Facility 06-01-2023 Cognitive function Cognitive Sta tus Patient at Baseline [facility] Work Phone: Clinical Notes 06-10-2022 to 10-19-2023 Lizandro Plata DDS - 10/19/2023 10:05 AM EDT Note Date & Type Note Facility 10-19-2023 History of Presen t illness Narrative ----- Thursday, October 19, 2023 at 11:01:41 AM ----- ----- Provider: [id number] Ed Plata, -- Clinic: [place] ----- LIMITED EXAM Patient presents for Emergency appointment with a CC of Sensitivity in the LL and LR area of their mouth. Reviewed patient's medical history. Patient has a history of: . ADHD, seizure disorder, bipolar disorder, moderate intellectual disabilities No contraindications, patient is ready for treatment. Clinical exam was completed. Clinical Exam Finding(s): Extensive decay tooth # None Radiographs taken today were: NONE Radiographic Findings: Discussed the medical necessity of the problem with the patient. Patient consented to treatment today. Pt here with meter calibrator to discuss IV sedation as a quicker alternative to the OR waitlist. Pt has previously been evaluated for the OR on 06/10/2022. While evaluating the patient, I informed her that there will be a needle with regards to placing the IV. Pt accepts this. Pt is cooperative, opens and closes on command. Pt had no issues with the examination. #22 and 26 appear carious, further radiographic evidence is needed for full determination. Spoke with Dr. Mahoney, he agrees the patient is a candidate for IV sedation. Informed both the patient and the meter calibrator. Treatment request for IV sedation will be sent for the patient. Next Visit: IV sedation and appropriate treatment. ----- Signed on Thursday, October 19, 2023 at 1:27:08 PM ----- ----- Provider: [id number] Ed Obrien DDS -- Clinic: [place] ----- documented in this encounter [facility] 06-01-2023 Discharge summary Note Date/Time June 01, 2023 12:23pm [facility] [address] [place], [place] [address] Discharge Summary Signed Patient: Migdalia Connelly MR#: [id number] : 1985 Acct:[id number] Age/Sex: 37 / F Adm Date: 4 Loc: 4N Room: [address] [place] [address]: Rico Romero DO Copies to: Lio Munroe, DO Rico Romero DO~ Providers Date of Discharge: 06/01/23 Discharging [...] with developmental delay who lives at the [facility]. She had been cared for at an [...] before she will be transferred back to [place]. She was also given the discharge instructions [...] % (Auto) N/A, Lymph % (Auto) N/A, Desoto % (Auto) N/A, Eos % (Auto) N/A, Baso % (Auto) N/A, Nucleat RBC Rel Count N/A, Neut # (Auto) N/A, Lymph # (Auto) N/A, Desoto # (Auto) N/A, Eos # (Auto) N/A, [...] <Electronically signed by Rico Romero DO> 06/01/23 1656 [facility] Work Phone: 1(335) 703-262004-09-2024 Progress note Author Rico Romero [facility] May 31, 2023 11:47am Note Date/Time May 31, 2023 11:4 7am [facility] [address] [place], [place] [address]ist Progress Note Signed Patient: Migdalia Connelly MR#: [id number] : 1985 Acct:[id number] Age/Sex: 37 / F Adm Date: 4 Loc: 4N Room: 8H5943-9 Type: ADM IN Attending Dr: Rico Romero [...] Unit Tablet PO 05/28/24 19:29 1 tab BID@ KATHARINE Administration Calcium Carbonate 500 mg 05/29/23 [...] Mg Tablet PO 05/28/24 19:29 0.2 mg 09,1399,1929 [facility] Administration Diazepam 5 mg 05/29/23 18:15 Diazepam [...] Capsule PO 05/28/24 19:29 200 mg BID@899,1929 [facility] Administration Emollient Ointment 1 applic 05/29/23 18:01 05/30/23 11:30 Petrolatum,White 99 Gm Oint...G. TOPICAL 1 applic BID PRN Administration dry skin Enoxaparin Sodium 40 mg 05/30/23 10:00 05/31/23 08:18 Enoxaparin 40 Mg/0.4 Ml Syringe SUBCUT 05/29/24 09:59 40 mg DAILY@10 KATHARINE Administration Fenofibrate 145 mg 05/29/23 19:30 05/30/23 20:04 Fenofibrate Nanocrystallized 145 Mg Tablet PO 05/28/24 19:29 145 mg DAILY@1930 KATHARINE Administration Fluticasone Propionate 2 spray 05/29/23 18:01 Fluticasone Propionate Pe[place] 120 [place]/16 Gm Bottle INTRANASAL 05/28/24 18:00 DAILY PRN [...] Mg Tablet PO 05/28/24 19:29 400 mg DAILY@1930 KATHARINE Administration Lamotrigine 200 mg 05/30/23 09:00 [...] Tablet PO 05/29/24 08:59 10 mg DAILY KTAHARINE Administration Non-Formulary Medication 1 applic 05/29/23 21:00 [...] 05/30/23 09:00 05/31/23 08:17 Pantoprazole 40 Mg Tablet.Dr PO 05/29/24 08:59 [...] signed by Rico Romero DO> 05/31/23 1147 [facility] Work Phone: 1(308) 966-397704-08-2024 Progress note Author Anamaria Benton [facility] May 30, 2023 12:21pm Note Date/Time May 30, 2023 12:2 1pm [facility] [address] [place] [address] Hospitalist Progress Note Signed Patient: Migdalia Connelly MR#: [id number] : 1985 Acct:[id number] Age/Sex: 37 / F Adm Date: 4 Loc: 4N Room: 1R1268-7 Type: ADM INOo Attending Dr: Anamaria Benton [...] Verified 05/29/23 13:05) Unknown Reaction pseudoephedrine [From Miyaobabei] Allergy (Unknown, Verified 05/29/23 13:05) Unknown Reaction [...] 10 mg 05/29/23 15:58 Bisacodyl 5 Mg Tablet. PO 05/28/24 15:57 DAILY PRN Constipation Calcium Carbonate 1 tab 05/29/23 19:30 05/30/23 08:24 Calcium Carbonate/Vitamin D3 500 Mg/200 Unit Tablet PO 05/28/24 19:29 1 tab BID@0900,0 KATHARINE Administration Calcium Carbonate 500 mg 05/29/23 [...] Mg Tablet PO 05/28/24 19:29 0.2 mg 0900,1400,1930 KATHARINE Administration Diazepam 5 mg 05/29/23 18:15 Diazepam 5 Mg Tablet PO 11/25/23 18:14 ONCE PRN 1 HOUR PRIOR TO PROCEDURE Dicyclomine HCl 20 mg 05/29/23 19:30 05/30/23 08:25 Dicyclomine 20 Mg Tablet PO 05/28/24 19:29 20 mg BID@0900,1930 KATHARINE Administration Diphenhydramine HCl 25 mg 05/29/23 15:51 05/29/23 20:04 Diphenhydramine 25 Mg Capsule PO 05/28/24 15:50 25 mg Q8H PRN Administration Severe rash or Itching Docusate Sodium 200 mg 05/29/23 19:30 05/30/23 08:24 Docusate 100 Mg Capsule PO 05/28/24 19:29 200 mg BID@09,1929 [facility] Administration Emollient Ointment 1 applic 05/29/23 18:01 05/30/23 11:30 Petrolatum,White 99 Gm Oint...G. TOPICAL 1 applic BID PRN Administration dry skin Enoxaparin Sodium 40 mg 05/30/23 10:00 05/30/23 09:11 Enoxaparin 40 Mg/0.4 Ml Syringe SUBCUT 05/29/24 09:59 40 mg DAILY@10 [facility] Administration Fenofibrate 145 mg 05/29/23 19:30 05/29/23 20:00 Fenofibrate Nanocrystallized 145 Mg Tablet PO 05/28/24 19:29 145 mg DAILY@1929 [facility] Administration Fluticasone Propionate 2 spray 05/29/23 18:01 Fluticasone Propionate Pe[place] 120 [place]/16 Gm Bottle INTRANASAL 05/28/24 18:00 DAILY PRN allergy symptoms Guanfacine HCl 2 mg 05/29/23 19:30 05/30/23 08:24 Guanfacine 1 Mg Tablet PO 05/28/24 19:29 2 mg TID@0900,1400,1930 [facility] Administration Hydralazine HCl 10 mg 05/29/23 16:01 Hydralazine 20 Mg/Ml Vial IV-PUSH 05/28/24 16:00 Q4H PRN if SBP > 185 Levofloxacin 750 mg in 150 mls @ 100 mls/hr 05/30/23 17:00 Levaquin IV Q24H [facility] Vancomycin HCl 1.25 gm/ 275 mls @ 183.333 mls/hr 05/29/23 22:30 05/30/23 09:10 Dextrose IV 05/28/24 22:29 183.33 mls/hr Q8H KATHARINE Administration Ibuprofen 400 mg 05/29/23 18:01 05/29/23 20:04 Ibuprofen 400 Mg Tablet PO 05/28/24 18:00 400 mg Q8H PRN Administration pain Lamotrigine 400 mg 05/29/23 19:30 05/29/23 20:01 Lamotrigine 100 Mg Tablet PO 05/28/24 19:29 400 mg DAILY@1930 KATHARINE Administration Lamotrigine 200 mg 05/30/23 09:00 [...] KATHARINE Non-Formulary Medication 1 tab 05/30/23 09:00 Levonorgestrel-Ethinyl Estrad [Falmina (28)] PO 05/29/24 08:59 DAILY KATHARINE Olanzapine 30 mg 05/29/23 19:30 05/29/23 20:00 Olanzapine 10 Mg Tablet PO 05/28/24 19:29 30 mg DAILY@1930 KATHARINE Administration Paliperidone 6 mg 05/29/23 19:30 05/30/23 08:25 Paliperidone 24hr Er 6 Mg Tab.Er.24 PO 05/28/24 19:29 6 mg BID@0900,1930 KATHARINE Administration Pantoprazole Sodium 40 mg 05/30/23 [...] signed by Anamaria Benton MD> 05/30/23 1221 [facility] Work Phone: 1(523) 332-542104-07-2024 History and physical note Author Arvind Regan [facility] May 29, 2023 4:12pm Note Date/Time May 29, 2023 4:01 pm [facility] [address] [place] [address] Hospitalist H&P Signed Patient: Migdalia Connelly MR#: [id number] : 1985 Acct:[id number] Age/Sex: 37 / F Adm Date: 4 Loc: 4N Room: 4P0159-2 Type: ADM INOo Attending Dr: Arvind Regan DO Copies to: NON STAFF Arvind Regan DO~ HPI DATE OF EXAMINATION: 05/29/23 CHIEF COMPLAINT: Concern for worsening facial cellulitis HISTORY OF PRESENT ILLNESS: This is a 37-year-old female with MRDD who lives in a correction who presents [facility] ER with her caregiver with concern for worsening facial cellulitis. Patient was just discharged from [facility] on Tuesday after being treated [...] negative unless noted below or in HPI [facility] Medical History (Updated 05/29/23 @ 16:10 by [...] 13:36 Lymph % (Auto) N/A 05/29/23 13:36 Desoto % (Auto) N/A 05/29/23 13:36 Eos % (Auto) N/A 05/29/23 13:36 Baso % (Auto) N/A 05/29/23 13:36 Nucleat RBC Rel Count N/A 05/29/23 13:36 Neut # (Auto) N/A 05/29/23 13:36 Lymph # (Auto) N/A 05/29/23 13:36 [place] # (Auto) N/A 05/29/23 13:36 Eos # [...] periorbital cellulitis where she was hospitalized at [facility] and treated with IV antibiotics [...] <Electronically signed by Arvind Regan DO> 05/29/23 1612 [facility] Work Phone: 1(462) 725-807204-03-2024 Miscellaneous Notes* Telephone Encounter - Cesia Lang - 05/25/2023 11:38 AM EDT Called and scheduled new pt appt with nurse from [facility]. Labs ordered and faxed to facility. [facility] Telephone encounter Note* Telephone Encounter - Cesia Lang - 05/25/2023 11:38 AM EDT Called and scheduled new pt appt with nurse from [facility]. Labs ordered and faxed to facility. [facility] VidRocket [id number] History of Present illness Narrative* Scarlett Albarran DDS - 06/10/2022 1:29 PM EDT ----- May at 3:52:48 PM ----- ----- Provider: Resident Florencio -- Clinic: [place] ----- OR EVALUATION Patient presents for evaluation [...] treatment in the OR was sent out [phone] NOTE: Note: Pt seen in the OR about 2 years ago. Next Visit: OR ----- Signed on May at 4:11:20 PM ----- ----- Provider: Satinder Obrien DDS -- Clinic: [place] ----- documented in this encounter[facility]Health[facility] + Plan note No data available for this section [facility] Diagnosis Hyponatremia- Primary Hyposmolality and/or hyponatremia [facility] Diagnosis Onset Date Resolution Status Periorbital cellulitis acute [facility] Work Phone: Evaluation note* Diagnosis Onset Date Resolution Status Bipolar disorder acute Failure of outpatient treatment acute Hypercholesterolemia acute Hypertension acute Moderate intellectual disability acute Periorbital cellulitis acute PTSD (post-traumatic stress disorder) acute Seizure disorder acute [facility] Work Phone: Evaluation note* Diagnosis Onset Date Resolution Status Bipolar disorder acute Hypercholesterolemia acute Hypertension acute PTSD (post-traumatic stress disorder) acute Seizure disorder acute Periorbital cellulitis resol shana [facility] Work Phone: Evaluation note* Diagnosis Caries- Primary Unspecified dental caries documented in this encounter [facility] Author Arvind Regan [facility] May 29, 2023 4:12pm Note Date/Time May 29, 2023 4:01 pm [facility] [address] [place] [address] Hospitalist H&P Signed Patient: Migdalia Connelly MR#: [id number] : 1985 Acct:[id number] Age/Sex: 37 / F Adm Date: 4 Loc: 4N Room: [id number] Type: ADM INOo Attending Dr: Arvind Regan DO Copies to: NON STAFF Arvind Regan DO~ HPI DATE OF EXAMINATION: 05/29/23 CHIEF COMPLAINT: Concern for worsening facial cellulitis HISTORY OF PRESENT ILLNESS: This is a 37-year-old female with MRDD who lives in a correction who presents [facility] ER with her caregiver with concern for worsening facial cellulitis. Patient was just discharged from [facility] on Tuesday after being treated [...] negative unless noted below or in HPI [facility] Medical History (Updated 05/29/23 @ 16:10 by [...] 13:36 Lymph % (Auto) N/A 05/29/23 13:36 [place]oto % (Auto) N/A 05/29/23 13:36 Eos % (Auto) N/A 05/29/23 13:36 Baso % (Auto) N/A 05/29/23 13:36 Nucleat RBC Rel Count N/A 05/29/23 13:36 Neut # (Auto) N/A 05/29/23 13:36 Lymph # (Auto) N/A 05/29/23 13:36 Desoto # (Auto) N/A 05/29/23 13:36 Eos # [...] periorbital cellulitis where she was hospitalized at [facility] and treated with IV antibiotics [...] <Electronically signed by Arvind Regan DO> 05/29/23 1612 [facility] Work Phone: Hospital Discharge instructions No data available for this section [facility] Additional Instructions DO continue to finish all of the antibiotic pills that was prescribed by Di: Doxycycline. DO NOT take any of the prednisone that was prescribed by Di. This is not needed anymore. DO take the extra antibiotic we are sending home at this time: Avelox.[facility] Work Phone: Hospital Discharge instructions Additional Instructions Take simethicone as prescribed for abdominal distention. Take Metamucil Colace and MiraLAX as prescribed constipation. Make sure to take drinking plenty of water each day. Take Naprosyn as prescribed for headache. Follow-up with your primary care provider for ongoing treatment.[facility] Work Phone: InstructionsNot on filedocumented in this encounter [facility] No data available for this section [facility] Summary Purpose Family History No Family [...] cellulitis PTSD (post-traumatic stress disorder) Seizure disorder Chief Complaint Cellulitis on face Cellulitis on face Cellulitis on face flu like symptoms Reason for Visit Bipolar disorder Hypercholesterolemia Hypertension PTSD (post-traumatic stress disorder) Seizure disorder Periorbital cellulitis Reason for Referral Specialty Diagnoses / Procedures Referred By Delilah ball Referred To Contact Anesthesiology Diagnoses Caries Og Mahoney, DDS [address] [place] [address] S PRE ADMISSION TESTING [address] [place] [address] Referral ID Status Reason Start Date Expiration Date V isits Requested Visits Authorized [id number] Authorized 10/19/2023 10/18/2024 1 1 Scheduling Instructions Your surgical team will reach out to you to schedule a pre-admission testing appointment. Question Answer Reason for consult? Recommended PAT Risk Score Additional Source Comments INFORMATION SOURCE (unrecogn ized section and content) DATE CREATED AUTHOR 05/12/2018 [facility] DATE CREATED AUTHOR AUTHOR'S ORGANIZ ATION 07/30/2022 [facility] DATE CREATED AUTHOR AUTHOR'S ORGANIZ ATION 04/21/[address] [facility] DATE CREATED AUTHOR AUTHOR'S ORGANIZ ATION 06/10/2023 [facility] DATE CREATED AUTHOR AUTHOR'S ORGANIZ ATION 07/27/2023 [facility] DATE CREATED AUTHOR AUTHOR'S ORGANIZ ATION 08/08/2023 [facility] DATE CREATED AUTHOR AUTHOR'S ORGANIZ ATION 10/21/2023 [facility] Patient Care team informatio n (unrecognized section and content) Team Status: Active Member Role Status Dates Lio Munroe DO Primary Care Provider Active Team Status: Active Member Role Status Dates NON STAFF Primary Care Provider Active Start: May 29, 2023 Venita Amanda APRN Emergency Provider Active Start: May 29, 2023 Arvind Regan DO Admit Provider, Atte nding Provider, Other Provider Active Start: May 29, 2023 Team Status: Inactive Member Role Status Dates Venita Amanda APRN Emergency Provider Active Start: May 30, 2023 End: June 01, 2023 Arvind Poncein , DO Admit Provider Active Start: [...] Provider Active Start: May 29, 2023 Arvind Murdocksein , DO Admit Provider, Atte nding Provider Active Start: May 29, 2023 Team Status: Active Member Role Status Dates Venita Amanda APRN Emergency Provider Active Start: May 29, 2023 End: June 01, 2023 Arvind Murdocksein , DO Admit Provider, Atte nding Provider Active Start: May 29, 2023 End: June 01, 2023 Rico Romero , DO Other Provider Active Start: May 29, 2023 End: June 01, 2023 Lio Munroe DO Primary Care Provider Active Start: May 29, 2023 End: June 01, 2023 Sherie Holt MD Active Start: 2023 End: June 01, 2023 Team Status: Active Member Role Status Dates NON STAFF Primary Care Provider Active Start: May 29, 2023 End: June 01, 2023 Venita Amanda APRN Emergency Provider Active Start: May 29, 2023 End: June 01, 2023 Arvind Poncein , DO Admit Provider, Atte nding Provider, Other Provider Active Start: May 29, 2023 End: June 01, 2023 Team Status: Inactive Member Role Status Dates Lio Munroe DO Primary Care Provider Active Start: August 06, 2023 End: August 07, 2023 Titi Terry DO Emergency Provider Active Start: August 06, 2023 End: August 07, 2023 Goals (unrecognized section and content) Goals [...] BE BASED ON THE PRIMARY CLINICAL RECORDS. [facility] [x+1] [facility]. provides no warranty or guarantee of the accuracy or completeness of information in this document.
[2023-10-21 14:14] LABS: Hematocrit 36.2 % (36.0-48.0); Hemoglobin 12.4 g/dL (12.0-16.0); Mean Corpuscular HGB Conc 34.3 g/dL (29.9-35.2); Mean Corpuscular Hemoglobin 31.2 pg (26.7-34.0); Mean Corpuscular Volume 91.2 fL (81.0-99.0); Mean Platelet Volume 8.6 fL (9.5-13.5); Platelet Count 332 10^3/uL (150-450); Red Blood Count 3.97 10^6/uL (4.20-5.40); Red Cell Distribution Width 11.8 % (11.0-15.0); White Blood Count 5.3 10^3/uL (4.0-11.0)
[2023-10-21 14:14] LABS: Bilirubin Urine NEGATIVE (NEGATIVE); Blood Urine NEGATIVE (NEGATIVE); Clarity Urine CLEAR (CLEAR); Color Urine LT. YELLOW (YELLOW); Glucose Urine UA NEGATIVE (NEGATIVE); Ketones Urine NEGATIVE (NEGATIVE); Leukocyte Esterase Urine TRACE (NEGATIVE); Nitrite Urine NEGATIVE (NEGATIVE); Protein Urine NEGATIVE (NEG/TRACE); Urobilinogen Urine 0.2 EU/dL (0.2-1.0)
[2023-10-21 14:48] LABS: Creatinine Urine Random 48.06 mg/dL (20.00-300.00); Protein Creatinine Ratio Urine 0.16; Sodium Urine Random 31 mmol/L (30-90); Total Protein Urine Random 7.9 mg/dL (<=11.9)
[2023-10-21 15:06] LABS: Anion Gap 15.9; Carbon Dioxide 24.2 mmol/L (21.0-32.0); Chloride 96 mmol/L (98-107); Estimated GFR (African America >60 (>=60); Estimated GFR (Non-African Ame >60 (>=60); Glucose 103 mg/dL (74-106); Magnesium 1.6 mg/dL (1.8-2.4); Phosphorus 3.6 mg/dL (2.6-4.7); Potassium 4.1 mmol/L (3.5-5.1); Sodium 132 mmol/L (136-145); TSH W/ REFLEX FT4 1.539 uIU/mL (0.358-3.740); Uric Acid 2.4 mg/dL (2.6-6.0)
== END 2023-10-21 13:38 | disposition home or self-care (01) ==
PROVIDERS: PCP Family Medicine; Visit Provider Internal Medicine Nephrology
DX: E87.1 Hypo-osmolality and hyponatremia (principal)
CPT/HCPCS: 36415; 80048; 81003; 82533; 82570; 83735; 83930; 83935; 84100; 84156; 84300; 84443; 84550; 85027

== ENCOUNTER 2024-05-03 06:35 | Outpatient (OUT) | payer MEDICARE, MEDICAID, SELFPAY ==
--- OUTSIDE RECORDS SUMMARY | 2024-05-03 06:38 | XMS_ITS | CCD ---
Author Organization 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 Name Role Phone SYSTEM, PROVIDER NOT IN Admitting Unavaila ble SYSTEM, PROVIDER NOT IN Referring Unavaila ble EVANS KILGORE Primary Care Unavailable Unavailable Primary Care Provider Unavailabl e MUÑOZ, DR LIO aGtes Consulting Unavailable MUÑOZ, DR LIO Gates Attending Unavailable MUÑOZ, DR LIO Gates Admitting Unavailable MUÑOZ, DR LIO Gates Primary Care Unavailable KARASIK ., DR PRUITT Admitting Unavailabl e KARASIK ., DR PRUITT Consulting Unavailabl e KARASIK ., DR PRUITT Attending Unavailabl e MUÑOZ, DR LIO Gates Primary Care Unavailable MUÑOZ, DR LIO Gates Consulting Unavailable MUÑOZ, DR LIO Gates Attending Unavailable MUÑOZ, DR LIO Gates Admitting Unavailable MUÑOZ, DR LIO Gates Primary Care Unavailable LIO MUÑOZ Primary Care Physician LIO MUÑOZ Attending Unavailable MUÑOZ, LIO Admitting Unavailable MUÑOZ, LIO Attending Unavailable MUÑOZ, LIO Admitting Unavailable NON STAFF Primary Care Provider Unavailabl e IMAN Amanda Emergency Provider DO Jass Yazid Admit Provider DO Arvind Regan Attending Provider [phone] IMAN Amanda Emergency Provider [phone] Jass DO Yazid Admit Provider DO Rico Romero Attending Provider [phone] DO Lio Muñoz Primary Care Provider DO Titi Terry Emergency Provider Unava Titi Clarke Attending Unavailable Muñoz, Lio Gates Primary Care Unavailable Titi Terry Admitting Unavailable Arvind Regan Admitting Unavailable Rico Romero Attending Unavailabl e Lio Muñoz Primary Care Unavailable Sharon SUN Isidrolizeth Unavailable Lio Muñoz MD Primary Care Provider PROVIDER, UNKNOWN Admitting Unavailable SABRA FRIAS Referring Unavailable PROVIDER, UNKNOWN Attending Unavailable PROVIDER, UNKNOWN Admitting Unavailable LUKE-OG MCKINLEY Referring Unavailable PROVIDER, UNKNOWN Attending Unavailable PROVIDER, UNKNOWN Admitting Unavailable MARLENI ALEJANDRO Attending Unavailable PROVIDER, UNKNOWN Attending Unavailable PROVIDER, UNKNOWN Admitting Unavailable PROVIDER, UNKNOWN Admitting Unavailable LIZANDRO VERONICA Attending Unavailable DOLCE, BHANU Juarez Attending Unavailable DOLCE, BHANU Juarez Attending Unavailable DOLCE, BHANU Juarez Attending Unavailable DOLCE, BHANU Juarez Attending Unavailable ROBERT, DAMIEN Attending Unavailable DOLCE, BHANU Juarez Attending Unavailable DOLCE, BHANU Juarez Attending Unavailable ROBERT, DAMIEN Attending Unavailable DOLCE, BHANU Juarez Attending Unavailable IVORY HANNAH Attending Unavailable DOLCE, BHANU Juarez Attending Unavailable ROBERT, DAMIEN Attending Unavailable Unavailable Primary Care Provider Unavailabl e Allergies Allergy Classification Reported Allergen(s) Allergy Type Date of Onset Reaction(s) Facility Adrenergic Agonists (1 source) Pseudoephedrine Drug Allergy 024 Unknown Reaction [facility] ARIPiprazole (1 source) ARIPiprazole Drug Allergy 024 Unknown Reaction [facility] Chlorpheniramine (1 source) Chlorpheniramine Drug Allergy 024 Unknown Reaction [facility] Dextromethorphan (1 source) Dextromethorphan Drug Allergy 024 Unknown Reaction [facility] guaiFENesin (1 source) guaiFENesin Drug Allergy 024 Unknown Reaction [facility] metyroSINE (1 source) metyroSINE Drug Allergy 024 Unknown Reaction [facility] Molindone (1 source) Molindone Drug Allergy 024 Unknown Reaction [facility] Penicillins (antibiotic) (1 source) Amoxicillin Drug Allergy 024 Unknown Reaction [facility] Phenylpropanolamine (1 source) Phenylpropanolamine Drug Allergy 024 Unknown Reaction [facility] Valproate (1 source) Valproate Drug Allergy Unknown Reaction [facility] (20 sources) Amoxicillin; Translations: [AMOXICILLIN] Drug Allergy Unknown [facility] (14 sources) ARIPiprazole; Translations: [Abilify] Drug Allergy [facility] Work Phone: (20 sources) Dextromethorphan; Translations: [DEXTROMETHORPHAN HBR] Drug Allergy [facility] (20 sources) metyroSINE; Translations: [METYROSINE] Drug Allergy Unknown [facility] (20 sources) Molindone; Translations: [MOLINDONE] Drug Allergy Unknown [facility] (20 sources) Nalbuphine; Translations: [NALBUPHINE] Drug Allergy Unknown [facility] (20 sources) Valproate; Translations: [VALPROIC ACID] Drug Allergy Unknown [facility] (20 sources) Food; Translations: [FOOD] Propensity to adverse reactions to drug [facility] (20 sources) Sympathomimetics; Translations: [SYMPATHOMIMETICS] Propensity to adverse reactions to drug Unknown Reaction [facility] (1 source) Amoxicillin Drug Allergy [facility] (1 source) metyroSINE Drug Allergy [facility] (1 source) Molindone Drug Allergy [facility] (1 source) Nalbuphine Drug Allergy [facility] (1 source) Valproate Drug Allergy [facility] (1 source) [facility] [address] [facility] Drug allergy (disorder) [facility] (15 sources) ARIPiprazole Drug Allergy Unknown [facility] (12 sources) Chlorpheniramine Drug Allergy Unknown [facility] (2 sources) Dextromethorphan Drug Allergy Unknown Reaction [facility] (2 sources) guaiFENesin Drug Allergy Unknown Reaction [facility] (2 sources) Phenylpropanolamine Drug Allergy Unknown Reaction [facility] (2 sources) Pseudoephedrine Drug Allergy Unknown Reaction [facility] (2 sources) Valproate Drug Allergy Unknown Reaction [facility] (3 sources) metyroSINE Drug Allergy [facility] Medications Current Medications Medication Drug Class(es) Dates Sig (Normalized) Sig (Original) acetaminophen 325 mg oral capsule (20 sources) Start: 08-06-2023 take 650 mg by mouth twice daily Acetaminophen Active 650 MG PO Twice daily August 06, 2023 12:00am take 2 tablets by mo uth twice daily as needed acetaminophen (Tylenol) 325 MG tablet TA KE TWO TABLETS BY MOUTH TWICE A DAY NEEDED FOR TEMP OR GENERAL DISCOMFORT Active take 1 tablet by kip th every four hours as needed acetaminophen (TYLENOL) 325 mg tablet Ta ke 1 tablet (325 mg total) by mouth every 4 (four) hours as needed. Active atomoxetine 40 mg oral capsule (20 sources) Norepinephrine Reuptake Inhibitor Start: 05-29-2023 take 60 mg by mouth once daily in the morning Atomoxetine Active 60 MG PO Every morning May 29, 2023 12:00am Start: 04-27-2023 atomoxetine (S trattera) 40 MG capsule 04/27/2023 Active busPIRone hydrochloride 10 mg oral tablet (4 sources) take 1 tablet by mouth twice daily busPIRone (BUSPAR) 10 MG tablet Take 10 mg by mouth 2 times daily. Active calcium carbonate 750 mg chewable tablet (11 sources) Start: 05-29-2023 take 2 tablets by mouth every four hours as needed Calcium Carbonate Antacid (Tums Smoothies) 750 MG CHEW Take 2 Tablets by mouth every 4 hours as needed. 05/29/2023 Active Start: 05-29-2023 take 1 tablet by kip th every four hours Calcium Carbonate (Tums) 300 mg (750 mg) tablet,chewable Active 600 MG PO Every 4 hours May 29, 2023 12:00am calcium carbonate 1500 mg / cholecalciferol 200 unt oral capsule (20 sources) Vitamin D Start: 05-29-2023 take 1 capsule by mouth twice daily Calcium Carbonate-Vitamin D3 (Calcium 600 + D(3)) 600 mg-5 mcg (200 unit) capsule Active 1 CAP PO Twice daily May 29, 2023 12:00am Start: 04-26-2023 take 1 tablet by kip th in the morning Calcium+D3 600-20 MG-MCG tablet Take 1 tablet by mouth in the morning and 1 tablet before bedtime. 04/26/2023 Active Start: 04-26-2023 take 1 tablet by kip th in the morning calcium carbonate-vitamin D3 600 mg(1,500mg) -800 units tablet Take 1 tablet by mouth in the morning and 1 tablet before bedtime. 04/26/2023 Active take 1 tablet by kip th twice daily Calcium+D3 600-20 MG-MCG TABS Take 1 Tablet by mouth 2 times daily. Active calcium polycarbophil 625 mg oral tablet (20 sources) Start: 07-21-2023 take 1 tablet by mouth in the morning FIBER-LAX 625 mg tablet Take 1 tablet (625 mg total) by mouth in the morning. 07/21/2023 Active Start: 05-29-2023 Calcium Polyca rbophil (Fiber-Lax) 625 mg tablet Active 1250 MG PO Daily May 29, 2023 12:00am Calcium Polycarb ophil (FIBER-LAX ORAL) Take by mouth. Active Calcium Polycarb ophil (FIBER-LAX ORAL) Take by mouth. 0 Active 12 hr carBAMazepine 400 mg extended release oral tablet (20 sources) Mood Stabilizer Start: 05-29-2023 take 1 tablet by mouth three times daily, then take 2 tablets by mouth every twelve hours carBAMazepine XR (TEGretol XR) 400 mg 12 hr tablet Take 200 mg by mouth 3 (three) times a day. 05/29/2023 Active Start: 05-29-2023 take 400 mg by mouth once daily in the evening Carbamazepine Active 400 MG PO Every evening May 29, 2023 12:00am Start: 04-27-2023 End: 02-29-2024 take 1 tablet by mouth in the morning, then take 1 tablet by mouth every twelve hours in the evening, then take 1 tablet by mouth at bedtime carBAMazepine XR (TEGretol XR) 200 MG 12 hr tablet Take 200 mg by mouth in the morning and 200 mg in the evening and 200 mg before bedtime. 04/27/2023 02/29/2024 Discontinued (Side effects) carbamazepine (T EGRETOL) 100 MG chewable tablet carbamazepine 100 mg chewable tablet Active clindamycin 300 mg oral capsule (2 sources) Lincosamide Antibacterial Start: 07-14-2020 take 1 capsule by mouth three times daily clindamycin (CLEOCIN) 300 MG capsule Take 1 Capsule by mouth 3 times daily for 7 days. 21 Capsule 07/14/2020 Active cloNIDine hydrochloride 0.2 mg oral tablet (20 sources) Central alpha-2 Adrenergic Agonist Start: 06-12-2020 take 1 tablet by mouth three times daily cloNIDine (CATAPRES) 0.2 mg tablet Take 1 tablet (0.2 mg total) by mouth 3 (three) times a day. 07/21/2023 Active cloNIDine (Catap res) 0.2 MG tablet 1 (one) time each day at the same time Active dicyclomine hydrochloride 20 mg oral tablet (20 sources) Anticholinergic Start: 07-21-2023 take 1 tablet by mouth every six hours dicyclomine (BENTYL) 20 mg tablet Take 1 tablet (20 mg total) by mouth every 6 (six) hours. 07/21/2023 Active Start: 05-29-2023 take 20 mg by mouth twice yury y Dicyclomine Active 20 MG PO Twice daily May 29, 2023 12:00am dicyclomine (Ivan tyl) 20 MG tablet every 12 (twelve) hours Active docusate sodium 100 mg oral capsule (20 sources) Start: 05-29-2023 take 1 capsule by mouth twice daily Docusate Sodium (Colace) 100 mg capsule Active 100 MG PO Twice daily August 06, 2023 9:31pm Start: 05-29-2023 take 200 mg by mouth twice portia ly Docusate Sodium Active 200 MG PO Twice daily May 29, 2023 12:00am Docusate Sodium (DSS) 100 MG capsule 1 (one) time each day at the same time Active take 2 capsules by m outh twice daily docusate sodium (COLACE) 100 MG capsule Take 200 mg by mouth 2 times daily. Active take 1 capsule by mo uth three times daily docusate sodium (COLACE) 100 MG capsule Take 100 mg by mouth 3 times daily. Active Levonorgestrel-Ethinyl Estrad (20 sources) Progestin, Estrogen, Progestin-containing Intrauterine Device Start: 05-29-2023 take 1 tablet by mouth once daily Levonorgestrel-Ethinyl Estrad (Falmina (28)) 0.1-20 mg-mcg tablet Active 1 TAB PO Daily May 29, 2023 12:00am take 1 tablet by mouth once yury y Aviane 0.1-20 MG-MCG tablet Take 1 tablet by mouth Daily Active take 1 tablet by mouth once in t he morning levonorgestreL-ethinyl estrad (AVIANE,ALESSE,LESSINA) 0.1-20 mg-mcg per tablet Take 1 tablet by mouth in the morning. Active fenofibrate 134 mg oral capsule (20 sources) Peroxisome Proliferator Receptor alpha Agonist Start: 07-21-2023 take 1 capsule by mouth once daily before breakfast fenofibrate micronized (LOFIBRA) 134 mg capsule Take 1 capsule (134 mg total) by mouth every morning before breakfast. 07/21/2023 Active Start: 05-29-2023 take 1 capsule by mo [facility] at bedtime Fenofibrate Active 120 MG PO Bedtime May 29, 2023 12:00am 134 mg capsule fluticasone propionate 0.05 mg/actuat metered dose nasal spray (20 sources) Corticosteroid Start: 05-29-2023 take 1 spray(s) nasal route in the morning fluticasone propionate (FLONASE) 50 mcg/actuation nasal spray Administer 1 spray into each nostril in the morning. 05/29/2023 Active Start: 05-29-2023 take 1 spray(s) nasa l route once daily Fluticasone Propionate (24 Hour Allergy Relief) 50 mcg/actuation spray,suspension Active 2 SPRAY INTRANASAL Daily May 29, 2023 12:00am administer into each nostril take 2 spray(s) nasa l route once daily as needed fluticasone (Flonase) 50 MCG/ACT nasal spray INHALE 2 SPRAYS INTO EACH NOSTRIL ONCE DAILY NEEDED Active take 2 spray(s) nasa l route once daily as needed FLUTICASONE PROPIONATE, NASAL, NASAL Use 2 Sprays in each nostril daily as needed for Other. Active glycerin 2 mg/ml / naphazoline hydrochloride 0.12 mg/ml ophthalmic solution (3 sources) Non-Standardized Chemical Allergen Start: 05-29-2023 take 0.012-0.2 drop(s) into the eye(s) three times daily Naphazoline-Glycerin (Redness Relief) 0.012-0.2 % drops Active 2 DROPS OPHTHALMIC Three times daily May 29, 2023 12:00am guanFACINE 2 mg oral tablet (20 sources) Central alpha-2 Adrenergic Agonist Start: 05-29-2023 take 1 tablet by mouth once daily guanFACINE (TENEX) 2 mg tablet Take 1 tablet (2 mg total) by mouth nightly. 05/29/2023 Active Start: 05-29-2023 take 2 mg by mouth t hree times daily Guanfacine Active 2 MG PO Three times daily May 29, 2023 12:00am take 1.5 mg by mouth twice daily guanfacine (TENEX) 1 MG tablet Take 1.5 mg by mouth 2 times daily. Active ibuprofen 200 mg oral tablet (14 sources) Nonsteroidal Anti-inflammatory Drug Start: 05-29-2023 take 1 tablet by mouth every six hours as needed ibuprofen (ADVIL,MOTRIN) 200 mg tablet Take 1 tablet (200 mg total) by mouth every 6 (six) hours as needed. 05/29/2023 Active Start: 05-29-2023 take 2 tablets by mo uth every four to six hours Ibuprofen (Advil) 200 mg tablet Active 400 MG PO EVERY 4-6 HOURS May 29, 2023 12:00am Start: 05-29-2023 Ibuprofen (Adv il) 200 mg tablet Active 400 MG PO As Directed May 29, 2023 12:00am take 400 mg by mouth every four hours as needed for pain IBUPROFEN ORAL Take 400 mg by mouth every 4 hours as needed for Pain. Active ibuprofen (Motrin) 50 mg split tablet (2 sources) ibuprofen (Motri n) 50 mg split tablet Take 400 mg by mouth Active lamoTRIgine 150 mg oral tablet (20 sources) Mood Stabilizer, Anti-epileptic Agent Start: 07-21-2023 take 1 tablet by mouth in the morning lamoTRIgine (LaMICtal) 150 mg tablet Take 1 tablet (150 mg total) by mouth in the morning. 07/21/2023 Active Start: 07-21-2023 take 0.5 tablet by m outh in the morning lamoTRIgine (LaMICtal) 200 mg tablet Take 0.5 tablets (100 mg total) by mouth in the morning. 07/21/2023 Active Start: 05-29-2023 take 1 tablet by kip th in the morning lamoTRIgine (LaMICtal) 100 mg tablet Take 1 tablet (100 mg total) by mouth in the morning. 07/21/2023 Active Start: 05-29-2023 Lamotrigine (L amictal) 150 mg tablet Active 300 MG PO Bedtime May 29, 2023 12:00am take with 100 mg tablet for total of 400 mg Start: 04-27-2023 take 2 tablets by mo ut at bedtime lamoTRIgine (LaMICtal) 150 MG tablet Take 300 mg by mouth at bedtime 04/27/2023 Active Start: 04-27-2023 [facility] lamoTRIgine (LaMICtal) 200 MG tablet Take 1 tablet by mouth Daily 04/27/2023 Active take 2 tablets by mo orh once daily lamotrigine (LAMICTAL) 25 MG tablet Take 50 mg by mouth daily. Active loperamide hydrochloride 2 mg oral tablet (14 sources) Opioid Agonist Start: 05-29-2023 take 1 tablet by mouth three times daily as needed loperamide (IMODIUM A-D) 2 mg tablet Take 1 tablet (2 mg total) by mouth 3 (three) times a day as needed. 05/29/2023 Active Start: 05-29-2023 Loperamide (An ti-Diarrheal (Loperamide)) 2 mg tablet Active 4 MG PO As Directed May 29, 2023 12:00am administer after each loose stool until symptoms controlled; do not exceed 8 mg per 24 hrs loratadine 10 mg oral tablet (20 sources) Start: 05-29-2023 take 1 tablet by mouth in the morning loratadine (CLARITIN) 10 mg tablet Take 1 tablet (10 mg total) by mouth in the morning. 05/29/2023 Active metoprolol tartrate 100 mg oral tablet (20 sources) beta-Adrenergic Molly Start: 05-29-2023 take 1 tablet by mouth in the morning, then take 1 tablet by mouth at bedtime metoprolol tartrate (LOPRESSOR) 100 mg tablet Take 1 tablet (100 mg total) by mouth in the morning and 1 tablet (100 mg total) before bedtime. 07/21/2023 Active metoprolol tartr ate (Lopressor) 100 MG tablet every 12 (twelve) hours Active take 1 tablet by mouth twice portia ly metoprolol (LOPRESSOR) 100 MG tablet Take 100 mg by mouth 2 times daily. Active montelukast 10 mg oral tablet (20 sources) Leukotriene Receptor Antagonist Start: 05-29-2023 take 1 tablet by mouth once daily montelukast (SINGULAIR) 10 mg tablet Take 1 tablet (10 mg total) by mouth nightly. 07/21/2023 Active naltrexone hydrochloride 50 mg oral tablet (4 sources) Opioid Antagonist take 1 tablet by mouth once daily naltrexone (DEPADE) 50 MG tablet Take 50 mg by mouth daily. Active OLANZapine 20 mg oral tablet (20 sources) Atypical Antipsychotic Start: 07-21-2023 take 1 tablet by mouth once daily OLANZapine (ZyPREXA) 20 mg tablet Take 1 tablet (20 mg total) by mouth nightly. Total 30mg 07/21/2023 Active Start: 05-29-2023 Olanzapine Act sindhu 20 MG PO Daily at bedtime May 29, 2023 12:00am take with 10 mg tablet for total dose of 30 mg Start: 04-27-2023 OLANZapine (Zy PREXA) 10 MG tablet 04/27/2023 Active omeprazole 20 mg delayed release oral capsule (20 sources) Proton Pump Inhibitor Start: 05-10-2023 take 20 mg by mouth once daily Omeprazole Active 20 MG PO Daily May 29, 2023 12:00am 24 hr paliperidone 6 mg extended release oral tablet (20 sources) Atypical Antipsychotic Start: 07-21-2023 take 1 tablet by mouth once daily in the morning paliperidone (INVEGA) 6 mg 24 hr tablet Take 1 tablet (6 mg total) by mouth every morning. 07/21/2023 Active Start: 05-29-2023 take 6 mg by mouth twice daily Paliperidone Active 6 MG PO Twice daily May 29, 2023 12:00am Start: 04-27-2023 paliperidone ( Invega) 6 MG 24 hr tablet 1 tablet in the morning and 1 tablet before bedtime. 04/27/2023 Active petrolatum 1 mg/mg topical ointment (3 sources) Start: 05-29-2023 White Petrolat um (Petroleum Jelly) gel Active 1 APPLIC TOPICAL Twice daily May 29, 2023 12:00am twice a day and PRN until face is healed polyethylene glycol 3350 71317 mg powder for oral solution (9 sources) Osmotic Laxative Start: 11-18-2023 Polyethylene Glycol 3350 (PEG 3350) 17 GM/SCOOP POWD Take 17 g by mouth every morning. 11/18/2023 Active Start: 08-06-2023 Polyethylene G lycol 3350 (Miralax) 17 gram/dose powder Active 17 GM PO Twice daily August 06, 2023 12:00am mix into 4-8 oz. of any hot/cold/room temp. beverage; use immediately Psyllium Husk (Metamucil) 0.4 gram capsule (1 source) Start: 08-06-2023 Psyllium Husk (Metamucil) 0.4 gram capsule Active 0.4 GM PO Daily August 06, 2023 12:00am raNITIdine 150 mg oral tablet (4 sources) Histamine-2 Receptor Antagonist take 1 tablet by mouth twice daily ranitidine (ZANTAC) 150 MG tablet Take 150 mg by mouth 2 times daily. Active Sennosides (Senna) 8.6 mg capsule (3 sources) Start: 05-29-2023 take 2 capsules by mouth twice daily Sennosides (Senna) 8.6 mg capsule Active 17.2 MG PO Twice daily May 29, 2023 12:00am sennosides, retirement 8.6 mg oral tablet (10 sources) Start: 05-29-2023 sennosides (Senokot) 8.6 MG tablet Twice daily 05/29/2023 Active simethicone 250 mg oral capsule (1 source) Start: 08-06-2023 take 250 mg by mouth twice daily Simethicone Active 250 MG PO Twice daily 10 12August 06, 2023 12:00am sodium chloride 0.111 meq/ml nasal spray (3 sources) Start: 05-29-2023 Sodium Chloride (Altamist) 0.65 % aerosol,spray Active 1 SPRAY INTRANASAL As Directed May 29, 2023 12:00am 3-4 times a day as needed tacrolimus 0.001 mg/mg topical ointment (7 sources) Calcineurin Inhibitor Immunosuppressant Start: 12-09-2023 tacrolimus (Protopic) 0.1 % ointment Indications: Lip licking dermatitis Apply to affected areas bid prn when flared 60 g 11 12/09/2023 Active zolpidem tartrate 10 mg oral tablet (4 sources) gamma-Aminobutyric Acid-ergic Agonist Start: 06-10-2020 zolpidem (AMBIEN) 10 MG tablet 06/10/2020 Active Completed/Discontinued Medications Medication Drug Class(es) Dates Sig (Normalized) Sig (Original) calcium chloride 0.0014 meq/ml / potassium chloride 0.004 meq/ml / sodium chloride 0.103 meq/ml / sodium lactate 0.028 meq/ml injectable solution (3 sources) Start: 12-15-2023 End: 12-15-2023 Intravenous, PRN CONTINUOUS, Starting on Melanie 12/15/23 at 0832, Until Melanie 12/15/23 at 0925 dexmedetomidine 0.1 mg/ml injectable solution (3 sources) Central alpha-2 Adrenergic Agonist Start: 12-15-2023 End: 12-15-2023 Intravenous Push, PRN, Starting on Melanie 12/15/23 at 0834, Until Melanie 12/15/23 at 0925, Intra-op diazePAM 5 mg oral tablet (3 sources) [...] 2023 12:00am August 06, 2023 9:27pm 1 ml glycopyrrolate 0.2 mg/ml injection (3 sources) Start: 12-15-2023 End: 12-15-2023 Intravenous, PRN, Starting on Melanie 12/15/23 at 0834, Until Melanie 12/15/23 at 0925, Intra-op 1 ml ketorolac tromethamine 30 mg/ml cartridge (3 sources) Nonsteroidal Anti-inflammatory Drug, Cyclooxygenase Inhibitor Start: 12-15-2023 End: 12-15-2023 Intravenous Push, PRN, Starting on Melanie 12/15/23 at 0912, Until Melanie 12/15/23 at 0925 midazolam 1 mg/ml injectable solution (3 sources) Benzodiazepine Start: 12-15-2023 End: 12-15-2023 Intravenous, PRN, Starting on Melanie 12/15/23 at 0834, Until Melanie 12/15/23 at 0925, Intra-op moxifloxacin 400 mg oral tablet (2 sources) Quinolone Antimicrobial Start: 06-01-2023 End: 08-06-2023 take 400 mg by mouth once daily Moxifloxacin Discontinued 400 MG PO Daily 06 25June 01, 2023 12:00am August 06, 2023 9:27pm ondansetron 4 mg disintegrating oral tablet (11 sources) Serotonin-3 Receptor Antagonist Start: 05-29-2023 End: 06-01-2023 take 4 mg by mouth every six hours Ondansetron Discontinued 4 MG PO Every 6 hours May 29, 2023 12:00am June 01, 2023 12:13pm take 1 tablet by kip th every six hours as needed for nausea ondansetron (Zofran) 4 MG tablet Take 4 mg by mouth every 6 hours as needed for Nausea. Active predniSONE 50 mg oral tablet (3 sources) Start: 05-29-2023 End: 06-01-2023 take 50 mg by mouth once daily Prednisone Discontinued 50 MG PO Daily May 29, 2023 12:00am June 01, 2023 12:13pm x5 days, started on 05/29/23 Problems Active Problems Problem Classification Problem Date Documented Da te Episodic/Chronic Abdominal pain (1 source) Abdominal pain; Translations: [Unspecified abdominal pain] 08-06-2023 Episodic Allergic reactions (2 sources) Lip-licking eczema; Translations: [Dermatitis, unspecified] 12-09-2023 Episodic Anxiety disorders (9 sources) Posttraumatic stress disorder; Translations: [Post-traumatic stress disorder, unspecified] Onset: 4 05-29-2023 Chronic Anxiety disorders (12 sources) Anger reaction; Translations: [Irritability and anger] Onset: 4 07-14-2023 Episodic Attention-deficit, conduct, and disruptive behavior disorders (20 sources) Attention deficit hyperactivity disorder; Translations: [Attention-deficit hyperactivity disorder, unspecified type] Onset: 3 06-03-2018 Chronic Developmental disorders (16 sources) Moderate intellectual disability; Translations: [Moderate intellectual disabilities] Onset: 3 05-25-2012 Chronic Disorders of lipid metabolism (16 sources) Hypercholesterolemia; Translations: [Pure hypercholesterolemia, unspecified] Onset: 4 05-29-2023 Chronic Disorders of teeth and jaw (12 sources) Chronic periodontitis; Translations: [Chronic periodontitis, unspecified] Onset: 3 06-09-2012 Chronic Epilepsy; convulsions (16 sources) Seizure disorder; Translations: [Epilepsy, unspecified, not intractable, without status epilepticus] Onset: 4 05-29-2023 Chronic Epilepsy; convulsions (12 sources) Seizure; Translations: [Unspecified convulsions] Onset: 4 07-14-2023 Episodic Esophageal disorders (3 sources) Gastroesophageal reflux disease; Translations: [Gastro-esophageal reflux disease without esophagitis] Onset: 4 02-01-2024 Chronic Essential hypertension (16 sources) Hypertensive disorder; Translations: [Essential (primary) hypertension] Onset: 4 05-29-2023 Chronic Fluid and electrolyte disorders (6 sources) Hyponatremia; Translations: [Hypo-osmolality and hyponatremia] Onset: 4 02-29-2024 Episodic Genitourinary symptoms and ill-defined conditions (5 sources) Unspecified abnormal findings in urine; Translations: [Other abnormal findings in urine] Onset: 3 Episodic Headache; including migraine (4 sources) Headache; Translations: [Headache] Onset: 4 08-06-2023 Episodic Impulse control disorders, NEC (3 sources) Impulse control disorder; Translations: [Impulse disorder, unspecified] Onset: 4 02-01-2024 Chronic Miscellaneous mental health disorders (3 sources) Dissociative disorder; Translations: [Dissociative and conversion disorder, unspecified] Onset: 4 02-01-2024 Chronic Mood disorders (19 sources) Bipolar disorder; Translations: [Bipolar disorder, unspecified] Onset: 4 05-29-2023 Chronic Mycoses (2 sources) Onychomycosis; Translations: [Tinea unguium] 11-09-2023 Episodic Other connective tissue disease (2 sources) Pain of toe of right foot; Translations: [Pain in right toe(s)] 11-09-2023 Episodic Other connective tissue disease (2 sources) Pain of toe of left foot; Translations: [Pain in left toe(s)] 11-09-2023 Episodic Other gastrointestinal disorders (1 source) Constipation; Translations: [Constipation, unspecified] 08-06-2023 Episodic Other nutritional; endocrine; and metabolic disorders (12 sources) Developmental delay; Translations: [Unspecified lack of expected normal physiological development in childhood] Onset: 4 07-14-2023 Episodic Residual codes; unclassified (3 sources) Other specified health status; Translations: [Failure of outpatient treatment] Onset: 4 05-31-2023 Episodic Skin and subcutaneous tissue infections (7 sources) Cellulitis of periorbital region; Translations: [Periorbital cellulitis] Onset: 4 05-29-2023 Episodic Past or Other Problems Problem Classification Problem Date Documented Date Episodic/Chronic Disorders of teeth and jaw (20 sources) Dental caries; Translations: [Dental caries, unspecified] Onset: 06-09-2012 06-09-2012 Episodic Immunizations and screening for infectious disease (1 source) Encounter for screening for human papillomavirus (HPV); Translations: [ENC SCREENING HUMAN PAPILLOMAVIRUS] Onset: 04-29-2022 Episodic Other screening for suspected conditions (not mental disorders or infectious disease) (16 sources) Possible ; Translations: [Encounter for test, result unknown] Onset: 06-09-2012 06-09-2012 Episodic Residual codes; unclassified (10 sources) Disturbance of consciousness; Translations: [Transient alteration of awareness] Onset: 07-14-2023 07-14-2023 Episodic Results Test Name Value Interpretation Reference Range Facility Anesthesia Postprocedure Stefani qiuntana 02-23-2024 Order Processor Authentication Interface Message Text Anesthesia Postoperative Assessment: Vital Signs (most recent): There were no vitals taken for this visit. Anesthesia Post Evaluation Level of consciousness: awake Post-procedure exam normal. Body temperature, hydration status, PONV and pain evaluated and addressed. Pain management: adequate Hydration status: normal PONV:No nausea/vomiting reported Cardiopulmonary status stable Respiratory status: acceptable Cardiovascular status: acceptable Comments: The patient has fully recovered, meets discharge criteria, and has been under anesthesia care until point of discharge home. ANESTHESIA NOTABLE EVENTS: No notable events documented. 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 Questions answered. Risks, benefits, and alternatives of anesthesia discussed with patient. Patient agrees to proceed with planned surgery. Patient consented to history and physical in presence of visitors. Advised patient that s/he should make no major decisions, no driving, and no exertion today postoperatively. Advised patient that due to sedation anesthesia, s/he may have awareness during procedure. Physical Exam Airway TM distance: Not Adequate Micrognathia: Not present Jaw opening: Adequate Neck flexion: Adequate Dental PE (+) chipped teeth Pulmonary - pulmonary exam normal Cardiovascular - cardiovascular exam normal Neuro - neurological exam normal Plan Anesthesia plan: MAC; (NC) Anesthesia risks / alternatives discussed pre-op Questions answered / anesthesia plan accepted Past medical history, surgical history, allergies, and medications reviewed. Pertinent laboratory tests, EKG, imaging, and consults reviewed and I have personally seen and evaluated the patient, repeating brown portions of the history and physical examination. Attestation: Anesthesia options were discussed with the patient and/or legal account executive sales representative. The risks, benefits and alternatives were reviewed. Questions regarding anesthesia were answered. Patient and/or legal account executive sales representative knows such anesthetics and procedures may be performed by Resident physicians, Certified Anesthesiologist Assistants, or Certified Nurse Anesthetists under the supervision of a physician. The patient /or the patient's legal account executive sales representative agree with the plan for anesthesia. MHPATFORM Normal [facility] Progress Noteson 02-23-2024 Order Processor Authentication Interface Message Text ----- February at 10:34:06 AM ----- ----- Provider: Shelby Frias DMD -- Clinic: [facility] ----- PT. WAS SEEN IN [facility] UNDER TWILIGHT SEDATION WITH ANESTHESIA TEAM. Anesthesia diagnosis: Unspecified mental disorder- F09 and Other intellectual disabilities- F78 Dental diagnosis: Dental Caries, unspecified - K02.9 COMPOSITE JEWISH Patient is scheduled for Rastafari on tooth #23 MFL and 24 DFL. Reviewed Medical History. Patient is ready for treatment. Topical Benzocaine gel applied at the injection site for 2 minutes. Administered 2 carpules of Lidocaine, 2% with Epinephrine 1:100,000,. Cotton roll isolation achieved. Decay/existing rastafarian removed, cavity prepared. Selectively etched enamel with 37% phosphoric acid, rinsed, and blot dried. OptiBond bowles applied and light-cured. Condensed packable composite shade A2 in light cured increments using Mylar strip and wedge. Finished with finishing burs, checked occlusion, verified proximal contacts and rastafarian was polished. Rinsed and suctioned intraorally, advised patient to not eat until local anesthesia wears off. NOTE: Pt. was not cooperative for IV sedation; moved head and tried to sit up often. Due to behavior today, it is recommended for patient's safety to be seen in OR for all remaining treatment. Next Visit: OR for comprehensive treatment ----- Signed on February at 10:36:59 AM ----- ----- Provider: Shelby Frias DMD -- Clinic: [facility] ----- Normal [facility] Telephone Encounteron 2023 Order Processor Authentication Interface Message Text Anesthesia consent obtained by Dr. Koch and scanned into [employer]. Normal [facility] PAT Call Historyon Order Processor Authentication Interface Message Text Telephone History Migdalia Connelly, [id number] 02/01/2024 Patient was identified by name and date of with Nurse Latasha from [facility]. Needs: Physical, Neck Circumference, Glasses, BHCG, Intellectual Disability, Anxiety and Seizure Precautions on DOS. If the patient becomes ill prior to procedure or surgery, they are to call their provider or surgeon's office directly. 02/01/2024 - communicated with patient will need urine test the morning of the procedure 02/01/2024-Spoke with Dr. 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 No Snoring No Tired/Fatigued No Observed Apnea No Pressure: Hypertension No BMI greater than 35 0 Age greater than 50 0 Neck circ greater than 40cm (15.75 ) Unable to Assess Gender male? 0 Score 0 EXERCISE CAPACITY: 4-10 mets ALLERGIES: Abilify, Amoxicillin, Depakote [valproic acid], Food, Metyrosine, Moban [molindone], Nubain [nalbuphine], Sympathomimetics, and Vicks 44 cough relief [dextromethorphan hbr] PREVIOUS ANESTHETIC EXPERIENCES AND INTUBATION HISTORY: No previous anesthetic complication FAMILY HISTORY OF ANESTHETIC COMPLICATIONS: No PAST MEDICAL HISTORY: Past Medical History: Diagnosis Date Attention deficit hyperactivity disorder (ADHD) 05/25/2012 Attention deficit disorder with hyperactivity Caries 09/05/2018 Added automatically from request for surgery [id number] Constipation Per OSH H+P 08/2018 Dental decay 08/26/2016 Added automatically from request for surgery [id number] Developmental delay Per OSH H+P 08/2018 Hormone imbalance Per OSH H+P 08/2018 HTN (hypertension) Per OSH H+P 08/2018 Hypercholesteremia Per OSH H+P 08/2018 Moderate intellectual disabilities 05/25/2012 Mood disorder (HCC) Per OSH H+P 08/2018 Pituitary microadenoma (HCC) Per OSH H+P 08/2018 Seizures (HCC) Per OSH H+P 08/2018 PROBLEM LIST: Patient Active Problem List: Moderate intellectual disabilities [F71] Attention deficit hyperactivity disorder (ADHD) [F90.9] Unspecified dental caries [K02.9] Chronic periodontitis, unspecified [K05.30] Unconfirmed [Z32.00] Dental decay [K02.9] Caries [K02.9] Past Medical History and Review of Systems Pulmonary - negative ROS Comment: Denies SOB, wheezes, fever, chills, increased sputum, or general malaise. 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 GI/Hepatic/Renal (+) GERD Heme/Other - negative ROS Other ROS: glasses PAST SURGICAL HISTORY: Past Surgical History: Procedure Laterality Date CHOLECYSTECTOMY 2009 Per OSH H+P 08/2018 DENTAL RESTORATIONS Bilateral 12/28/2013 Procedure: DENTAL RESTORATIONS; Surgeon: Lynda Haque DDS; Location[facility]; Service: Dental DENTAL RESTORATIONS N/A 09/03/2016 Procedure: DENTAL RESTORATIONS; Surgeon: Bhavin Valdovinos DDS; Location: [facility] [place]; Service: Dental DENTAL RESTORATIONS N/A 09/15/2018 Procedure: DENTAL RESTORATIONS; Surgeon: Og Mahoney DDS; Location: [facility] [place]; Service: Dental DENTAL RESTORATIONS Bilateral 07/14/2020 Procedure: DENTAL RESTORATIONS; Surgeon: Og Mahoney DDS; Location: [facility] [place]; Service: Dental SOCIAL HISTORY: Social History Socioeconomic History Marital status: Single Tobacco Use Smoking status: Never Smokeless tobacco: Never Substance and Sexual Activity Alcohol use: Never Drug use: Never PAIN ASSESSMENT: Severity: 0 Location: N/A LABORATORY DATA: [facility] 10/24/2023 LABS TESTS REVIEWED: CXRay: No Chest x-ray found EKG: Last ECG Date: Not Found ECHO: Echocardiogram date: Not Found No results found for this basename: LVEF Stress test date: Last StressTest: none found going back to 09/16/2011 CURRENT MEDICATION LIST: Current Outpatient Medications Medication Sig Dispense Refill ondansetron (Zofran) 4 MG tablet Take 4 mg by mouth every 6 hours as needed for Nausea. FLUTICASONE PROPIONATE, NASAL, NASAL Use 2 Sprays in each nostril daily as needed for Other. IBUPROFEN ORAL Take 400 mg by mouth every 4 hours as needed for Pain. Loperamide HCl 2 MG ta (more content not included)... Normal [facility] Addendum Noteon 12-15-2023 Order Processor Authentication Interface Message Text Addendum created 12/15/23 1134 by Orquidea Florez MD Clinical Note Signed Normal [facility] Order Processor Authentication Interface Message Text Addendum created 12/15/23 1026 by Domingo Carrion APRN-RAVINDRA Flowsheet accepted, LDA properties accepted Normal [facility] Anesthesia Postprocedure Stefani luationon 12-15-2023 Order Processor Authentication Interface Message Text Anesthesia Postoperative Assessment: Vital Signs (most recent): There were no vitals taken for this visit. Anesthesia Post Evaluation Level of consciousness: awake Post-procedure exam normal. Body temperature, hydration status, PONV and pain evaluated and addressed. Pain management: adequate Hydration status: normal PONV:No nausea/vomiting reported Cardiopulmonary status stable Respiratory status: acceptable Cardiovascular status: acceptable Comments: The patient has fully recovered, meets discharge criteria, and has been under anesthesia care until point of discharge home. ANESTHESIA NOTABLE EVENTS: No notable events documented. 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 Questions answered. Risks, benefits, and alternatives of anesthesia discussed with patient. Patient agrees to proceed with planned surgery. Patient consented to history and physical in presence of visitors. Advised patient that s/he should make no major decisions, no driving, and no exertion today postoperatively. Advised patient that due to sedation anesthesia, s/he may have awareness during procedure. Physical Exam Airway Mallampati: III TM distance: Not Adequate Micrognathia: Not present Jaw opening: Adequate Neck flexion: Adequate Dental PE (+) chipped teeth Pulmonary - pulmonary exam normal Cardiovascular - cardiovascular exam normal Neuro - neurological exam normal Plan Anesthesia plan: MAC; (NC) Anesthesia risks / alternatives discussed pre-op Questions answered / anesthesia plan accepted Past medical history, surgical history, allergies, and medications reviewed. Pertinent laboratory tests, EKG, imaging, and consults reviewed and I have personally seen and evaluated the patient, repeating brown portions of the history and physical examination. Attestation: Anesthesia options were discussed with the patient and/or legal account executive sales representative. The risks, benefits and alternatives were reviewed. Questions regarding anesthesia were answered. Patient and/or legal account executive sales representative knows such anesthetics and procedures may be performed by Resident physicians, Certified Anesthesiologist Assistants, or Certified Nurse Anesthetists under the supervision of a physician. The patient /or the patient's legal account executive sales representative agree with the plan for anesthesia. MHPATFORM Normal [facility] Anesthesia Transfer Of Careo n 12-15-2023 Order Processor Authentication Interface Message Text Patient recovered by SILK SCREEN PAINTER in room. Patient is awake, comfortable, and stable. 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] Attention deficit hyperactivity disorder (ADHD) [F90.9] Unspecified dental caries [K02.9] Chronic periodontitis, unspecified [K05.30] Unconfirmed [Z32.00] Dental decay [K02.9] Caries [K02.9] Past Surgical History: Review of patient's past surgical history indicates: DENTAL RESTORATIONS (12/28/2013) Procedure: DENTAL RESTORATIONS; Surgeon: Lynda Haque DDS; Location: [facility]; Service: Dental DENTAL RESTORATIONS (09/03/2016) Procedure: DENTAL RESTORATIONS; Surgeon: Bhavin Valdovinos DDS; Location: [facility] [place]; Service: Dental CHOLECYSTECTOMY (2009) Per OSH H+P 08/2018 DENTAL RESTORATIONS (09/15/2018) Procedure: DENTAL RESTORATIONS; Surgeon: Og Mahoney DDS; Location: [facility] [place]; Service: Dental DENTAL RESTORATIONS (07/14/2020) Procedure: DENTAL RESTORATIONS; Surgeon: Og Mahoney DDS; Location: [facility]; Service: Dental Allergies: Abilify, Amoxicillin, Depakote [valproic acid], Food, Metyrosine, Moban [molindone], Nubain [nalbuphine], Sympathomimetics, and Vicks 44 cough relief [dextromethorphan hbr] Basic Operating Room Facts: * No surgeons listed * Anesthesiologist: Orquidea Florez MD SILK SCREEN PAINTER: Domingo Carrion APRN-SILK SCREEN PAINTER DENTAL VISIT Intraoperative Events: No acute event ASA: ASA status not filed in the log. EBL: Not documented Urine Not documented Lactated Ringers and NaCl 0.9%: Fluid Totals (Filter: LR and NaCl 0.9% Medications Shown) Medication Calculated Total Lactated Ringers 30 mL / 1 bag Cell Saver: Not documented Blood Volume Values: Blood Products None MTP Blood: MTP PRBC: Not documented MTP FFP: Not documented MTP PLT: Not documented MTP Cryo: Not documented MTP Whole Blood: Not documented Current Vasoactive Medications: {Vasoactive Medications: None Lines, Drains, Airways Airway Adjunct: Nasal Cannula (Active) Airway Insertion Details * No LDAs found * All non-working IVs have been removed: Yes Laboratory Data: CBC (last 3 years, up to 8 values) No lab values to display. BMP (last 3 years, up to 8 values) No lab values to display. Basic Metabolic Panel No lab values to display. No results found for: INR No result for BNP LFT's (last 3 years, up to 8 values) No lab values to display. Arterial Blood Gases None Hand off Completed: Yes 1. The patient was identified. 2. Pertinent medical history was relayed. 3. A brief discussion was had about any pertinent surgical/ procedural issues. 4. Intraoperative/ anesthetic management issue and concerns were discussed. 5. Plans for the early post-operative period relayed. 6. An opportunity for questions and acknowledgment of understanding of the report was received. Domingo Carrion APRN-SILK SCREEN PAINTER [facility] Blood Attestationon 12-15-19 Order Processor Authentication Interface Message Text Blood Attestation: ATTESTATION OF INFORMED CONSENT FOR BLOOD: The transfusion of blood and/or blood components were discussed with the patient and/or legal account executive sales representative. The risks, benefits and alternatives were reviewed. Questions regarding blood transfusions were answered. The patient /or the patient's legal account executive sales representative agree with the plan for transfusion of blood and/or blood components. Normal [facility] Progress Noteson 12-15-2023 Order Processor Authentication Interface Message Text ----- November at 9:52:24 AM ----- ----- Provider: Orlando Alejandro Resident -- Clinic: [facility] ----- PT WAS SEEN IN [facility] UNDER TWILIGHT SEDATION WITH ANESTHESIA TEAM Anesthesia diagnosis: ADHD- F909, and Moderate intellectual disabilities- F71 Dental diagnosis: Dental Caries, unspecified - K02.9 and Retained Dental Root- K08.3 PERIODIC EXAMINATION Reviewed patient's medical history. Patient has a history of: ADHD, seizure disorder, bipolar disorder, moderate intellectual disabilities No contraindications, patient is ready for treatment. Patient's chief complaint: Periodic Exam Pain Scale: 0/10 Radiographs taken today were: 4 BWs and 1 PA Clinical Examination reveals: Decay teeth # 7,23,24,25,26,27 Missing teeth # 7 non restorable Soft tissue evaluation: Within Normal Limits Completed current status of dentition on the charting. COMPOSITE JEWISH Patient is scheduled for Rastafari on tooth #26 surface B5. Topical Benzocaine gel applied at the injection site for 2 minutes. Administered 0.5 carpules of Lidocaine, 2% with Epinephrine 1:100,000,. Isolation achieved. Decay/existing rastafarian removed, cavity prepared. Selectively etched enamel with 37% phosphoric acid, rinsed, and blot dried. OptiBond bowles applied and light-cured. Condensed packable composite shade A2 in light cured increments. Finished with finishing burs, checked occlusion, verified proximal contacts and rastafarian was polished. SIMPLE EXTRACTION tooth # 7 Radiograph used for surgical planning and direction is correctly matched to the patient. Correct surgical site and/or involved teeth have been physically verified by the patient and the surgeon immediately before starting the procedure. Blood Pressure: 126/72 Pulse:79 Consent for treatment was signed by the patient. Benzocaine topical applied in injection area for 2-3 minutes. Anesthesia injected in facial area with prior aspiration to prevent intravascular infiltration. Infiltrative technique performed with 1 carpules Lidocaine, 2% with Epinephrine 1:100,000, 27 gauge long needle used. Extracted tooth/teeth # 7 . Simple extraction performed. Reflected mucoperiosteal cuff around tooth #7, followed by luxation, avulsion and atraumatic delivery with elevator and forceps. Inspected socket, followed by curettage, saline irrigation, and pressure gauze for hemostasis. No complications The patient has been given the following prescriptions: No medications prescribed. Post operative care instructions have been given to the patient and the patient has confirmed that they understand the instructions. Patient was dismissed. Patient tolerated the procedure well. NOTE: Pt already on pain medications Next visit: Restorative under IV sedation [facility] ----- Signed on November at 10:18:01 AM ----- ----- Provider: Shelby Frias DMD -- Clinic: [facility] ----- Normal [facility] PAT Appt H AND Jaspreet Order Processor Authentication Interface Message Text Attestation signed by Lio Jones MD at 11/28/2023 4:39 PM Teaching Physician Note: I saw and evaluated the patient. I personally obtained the brown and critical portions of the history and physical exam. I reviewed the resident's documentation and discussed the patient with the resident. I agree with the resident's medical decision making as documented in the resident's note. The patient was advised that a portion of this visit was performed virtually via audio and video and that strict confidentially was maintained. Lio Jones MD Pre-Admission Testing Consultation Migdalia Connelly, [id number] 38 year old Female 11/23/2023 Consult placed to [facility] due to significant PMH of HLD, HTN, seizures, moderate intellectual disability. [facility] Triage Risk Score Total Score: 3 2 Patient is on more than 2 antihypertension medications. 1 Patient has history of hyperlipidemia. Migdalia Connelly is scheduled for Dental Rastafari Pre-Op diagnosis of: Dental Carries HISTORY OF PRESENT ILLNESS: Patient is a 38 year old female with a pmh of HLD, HTN, seizures, moderate intellectual disability. Patient is here for pre-admission optimization and education prior to surgery. RECENT ILLNESS: Serious illness or hospitalization within the last six months. No STOP BANG: STOP-BANG Row Name 11/23/23 5682 History of sleep apnea? Yes Snoring No Tired/Fatigued No Observed Apnea No BMI greater than 35 0 Age greater than 50 0 Gender male? 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 Social History Tobacco Use Smoking status: Never Smokeless tobacco: Never Substance Use Topics Alcohol use: Never Drug use: Never MEDICAL HISTORY: Past Medical History: Diagnosis Date Constipation Per OSH H+P 08/2018 Developmental delay Per OSH H+P 08/2018 Hormone imbalance Per OSH H+P 08/2018 HTN (hypertension) Per OSH H+P 08/2018 Hypercholesteremia Per OSH H+P 08/2018 Mood disorder (HCC) Per OSH H+P 08/2018 Pituitary microadenoma (HCC) Per OSH H+P 08/2018 Seizures (HCC) Per OSH H+P 08/2018 SURGICAL HISTORY: Past Surgical History: Procedure Laterality Date CHOLECYSTECTOMY 2009 Per OSH H+P 08/2018 DENTAL RESTORATIONS Bilateral 12/28/2013 Procedure: DENTAL RESTORATIONS; Surgeon: Lynda Haque DDS; Location: [facility]; Service: Dental DENTAL RESTORATIONS N/A 09/03/2016 Procedure: DENTAL RESTORATIONS; Surgeon: Bhavin Valdovinos DDS; Location: [facility] [place]; Service: Dental DENTAL RESTORATIONS N/A 09/15/2018 Procedure: DENTAL RESTORATIONS; Surgeon: Og Mahoeny DDS; Location: [facility]; Service: Dental DENTAL RESTORATIONS Bilateral 07/14/2020 Procedure: DENTAL RESTORATIONS; Surgeon: Og Mahoney DDS; Location: [facility] [place]; Service: Dental Past Medical History and Review of Systems Pulmonary - negative ROS Dental ROS (+) teeth problems Endo Neuro/Psych (+) bipolar disorder, seizures, attention deficit hyperactivity disorder, intellectual disability Comment: +Pituitary Adenoma Cardiovascular (+) hypertension, hyperlipidemia GI/Hepatic/Renal (+) GERD Heme/Other - negative ROS PREVIOUS ANESTHETIC COMPLICATIONS: no history of difficult intubation , adverse effects of anesthetic agents, or family history of anesthesia-related problems, nor malignant hyperthermia Anesthesia Complications No anesthesia history noted CURRENT MEDICATION LIST: Current Outpatient Medications Medication Sig Dispense Refill clindamycin (CLEOCIN) 300 MG capsule Take 1 Capsule by mouth 3 times daily for 7 days. 21 Capsule 0 zolpidem (AMBIEN) 10 MG tablet cloNIDine (CATAPRES) 0.2 MG tablet carbamazepine (TEGRETOL) 100 MG chewable tablet carbamazepine 100 mg chewable tablet guanfacine (TENEX) 1 MG tablet Take 1.5 mg by mouth 2 times daily. ranitidine (ZANTAC) 150 MG tablet Take 150 mg by mouth 2 times daily. docusate sodium (COLACE) 100 MG capsule Take 100 mg by mouth 3 times daily. loratadine (CLARITIN) 10 MG tablet Take 10 mg by mouth daily. fenofibrate micronized (LOFIBRA) 134 MG capsule Take 134 mg by mouth daily (with breakfast). montelukast (SINGULAIR) 10 MG tablet Take 10 mg by mouth daily. naltrexone (DEPADE) 50 MG tablet Take 50 mg by mouth d (more content not included)... Normal [facility] Telephone Encounteron 2023 Order Processor Authentication Interface Message Text Anesthesia consent obtained and scanned into [facility]. Scheduled for surgery 12/15/2023. Normal [facility] Progress Noteson 11-07-2023 Order Processor Authentication Interface Message Text Parent/guardian/richard ent was contacted for PAT AND IV Sedation scheduled -- confirmed information with patient, also informed mom importance of going to PAT appointment -- if missed, IV Sedation will be cancelled, and you will be placed back on wait list 12/15/2023----- Tuesday, November 07, 2023 at 2:12:30 PM ----- ----- Provider: HANNAH Ramírez Dental-Hospital Admissions Clerk -- Clinic: [facility] ----- Normal [facility] Order Processor Authentication Interface Message Text Parent/guardian/richard ent was contacted for PAT AND IV Sedation scheduled -- confirmed information with patient, also informed mom importance of going to PAT appointment -- if missed, IV Sedation will be cancelled, and you will be placed back on wait list 12/15/2023----- Tuesday, November 07, 2023 at 2:17:34 PM ----- ----- Provider: HANNAH Ramírez [facility] Admissions Clerk -- Clinic: [facility] ----- Normal [facility] Progress Noteson 10-19-2023 Order Processor Authentication Interface Message Text ----- Thursday, October 19, 2023 at 11:01:41 AM ----- ----- Provider: [id number] Veronica, Resident -- Clinic: [facility] ----- LIMITED EXAM Patient presents for Emergency [...] consented to treatment today. Pt here with glove pairer to discuss IV sedation as a quicker [...] sedation. Informed both the patient and the glove pairer. Treatment request for IV sedation will be sent for the patient. Next Visit: IV sedation and appropriate treatment. ----- Signed on Thursday, October 19, 2023 at 1:27:08 PM ----- ----- Provider: Satinder Obrien DDS -- Clinic: [facility] ----- Normal [facility] Progress Noteson 09-22-2023 Order Processor Authentication Interface Message Text Return call to LATASHA Dubois [email or web address]) inquiring how long patient has to wait before being seen in the OR . patient was added on OR list 06/10/2022---advised there is a two year wait ----- September at 1:05:49 PM ----- ----- Provider: Gayle Vent[facility]-H[facility] Admissions Clerk -- Clinic: [facility] ----- Normal [facility] CT head/brain wo [facility] 08-06 CT head/brain wo [facility] Main [address] [address] [address] Scan Report Signed Patient: Migdalia Connelly MR#: [id number] : 1985 Acct:[id number] Age/Sex: 38 / F ADM Date: 08/06/23 Loc: ER Room: Type: [facility] ER Attending Dr: Copies to: Titi Terry [...] Cr Remy M.D.08/07/2023 9:56 AM Dictation Location: [place] [facility] Transcribed By: [facility] 08/07/23 0956 Dictated By: Cr Remy DO 08/07/23 0955 Signed By: 08/07/23 0956 Normal [facility] XR KUBon 08-07-2023 XR KUB [facility] [place] [address] XRay Report Signed Patient: Migdalia Connelly MR#: [id number] : 1985 Acct:[id number] Age/Sex: 38 / F ADM Date: 08/06/23 Loc: ER Room: Type: [facility] ER Attending Dr: Copies to: Titi Terry [...] Cr Remy M.D.08/07/2023 9:55 AM Dictation Location: [place] [address] Transcribed By: ENRIQUE 08/07/23954 Dictated By: Cr Remy DO 08/07/23953 Signed By: 08/07/23954 Normal [facility] Alanine aminotransferase [En zymatic activity/volume] in Serum or PlasmaOrdered By: Titi Terry on 08-06-2023 ALT [Catalytic activity/Vol] 25 U/L Normal 7-52 [facility] Comment on above: Performed By: #### C UBLD, BMP, DIFF CBC, LACTIC, PATH SLIDE REV #### [facility] [address] [place] [address] [place] Albumin [Mass/volume] in Ser um or Plasma by Bromocresol green (BCG) dye binding methoOrdered By: Titi eTrry on 08-06-2023 Albumin BCG dye [Mass/Vol] 4.0 g/dL 3.5-5.7 [facility] Alkaline phosphatase [Enzyma tic activity/volume] in Serum or PlasmaOrdered By: Titi Terry on 08-06-2023 ALP [Catalytic activity/Vol] 32 U/L Low 34-104 [facility] Comment on above: Performed By: #### C UBLD, BMP, DIFF CBC, LACTIC, PATH SLIDE REV #### [facility] [address] [place] [address] [place] Aspartate aminotransferase [ Enzymatic activity/volume] in Serum or PlasmaOrdered By: Titi Terry on 08-06-2023 AST [Catalytic activity/Vol] 24 U/L Normal 13-39 [facility] Comment on above: Performed By: #### C UBLD, BMP, DIFF CBC, LACTIC, PATH SLIDE REV #### [facility] [address] [place] [address] [place] Automated basophil %Ordered By: Titi Terry on 08-06-2023 Basophils/100 WBC (Bld) 0.3 % Normal . [facility] Comment on above: Performed By: #### C UBLD, BMP, DIFF CBC, LACTIC, PATH SLIDE REV #### [facility] [address] [place] [id number] [place] Automated basophil countOrde red By: Titi Terry on 08-06-2023 Basophils (Bld) [#/Vol] 0.0 10*3/uL Normal 0.0-0.2 [facility] Comment on above: Result Comment: PERF ORMED BY: [place] [address] PATHOLOGIST ENGINEERING PROGRAM MANAGER REJI SALAZAR M.D. Performed By: #### C UBLD, BMP, DIFF CBC, LACTIC, PATH SLIDE REV #### [address] Automated blood monocyte cou ntOrdered By: Titi Terry on 08-06-2023 Monocytes (Bld) [#/Vol] 0.4 10*3/uL Normal 0.0-0.8 [facility] Comment on above: Performed By: #### C UBLD, BMP, DIFF CBC, LACTIC, PATH SLIDE REV #### [address] Automated eosinophil %Ordere d By: Titi Terry on 08-06-2023 Eosinophils/100 WBC (Bld) 0.3 % Normal . [facility] Comment on above: Performed By: #### C UBLD, BMP, DIFF CBC, LACTIC, PATH SLIDE REV #### [address] Automated eosinophil countOr dered By: Titi Terry on 08-06-2023 Eosinophils (Bld) [#/Vol] 0.0 10*3/uL Normal 0.0-0.45 [facility] Comment on above: Performed By: #### C UBLD, BMP, DIFF CBC, LACTIC, PATH SLIDE REV #### [address] Automated monocyte %Ordered By: Titi Terry on 08-06-2023 Monocytes/100 WBC (Bld) 4.2 % Normal . [facility] Comment on above: Performed By: #### C UBLD, BMP, DIFF CBC, LACTIC, PATH SLIDE REV #### [address] Automated neutrophil %Ordere d By: Titi Terry on 08-06-2023 Neutrophils/100 WBC (Bld) 89.0 % Normal . [facility] Comment on above: Performed By: #### C UBLD, BMP, DIFF CBC, LACTIC, PATH SLIDE REV #### [facility] [address] Bacteria [Presence] in Urine by AutomatedOrdered By: PROVIDER TEMP on 08-06-2023 Bacteria Auto Ql (U) 2+ [HPF] None Seen [facility] Basic Metabolic Panelon 07-22 Creatinine Clr Calc Pharmacy 142.49 Normal [facility] Comment on above: Performed By: #### C UBLD, BMP, DIFF CBC, LACTIC, PATH SLIDE REV #### [facility] [address] [place] [address] GFR/1.73 sq M.predicted MDRD (S/P/Bld) [Vol rate/Area] mL/min/{1.73_m2} Normal [facility] Comment on above: Performed By: #### C UBLD, BMP, DIFF CBC, LACTIC, PATH SLIDE REV #### [address] Bilirubin Test strip Ql (U)O rdered By: PROVIDER TEMP on 08-06-2023 Bilirubin Ql (U) Negative Negative [facility] Bilirubin.direct [Mass/volum e] in Serum or PlasmaOrdered By: Titi Terry on 08-06-2023 Bilirubin.direct [Mass/Vol] 0.10 mg/dL 0.03-0.18 [facility] Bilirubin.total [Mass/volume ] in Serum or PlasmaOrdered By: Titi Terry on 08-06-2023 Bilirubin [Mass/Vol] 0.3 mg/dL Normal 0.3-1.0 [facility] Comment on above: Performed By: #### C UBLD, BMP, DIFF CBC, LACTIC, PATH SLIDE REV #### [address] COVID CepheidOrdered By: Leonid Terry on 08-06-2023 SARS-CoV-2 (COVID-19) Ab IA Ql Negative Negative [facility] Comment on above: This is a duplicate Cepheid Xpert Xpress CoV-2/Flu/RSV Plus RNA by RT-PCR result to be used for statistical tracking purpose only. SARS-CoV-2 (COVID-19) RNA ROSENDO+probe Ql (Unsp spec) [facility] COVID-19 / Flu A/B / RSV PCR [...] or Cepheid Disclaimer revoked sooner. PERFORMED BY: [place] [id number] PATHOLOGIST ENGINEERING PROGRAM MANAGER REJI SALAZAR M.D. Normal [facility] Comment on above: Performed By: #### C UBLD, BMP, DIFF CBC, LACTIC, PATH SLIDE REV #### [place] [id number] [facility] Calcium [Mass/volume] in Ser um or PlasmaOrdered By: Titi Terry on 08-06-2023 Calcium [Mass/Vol] 8.8 mg/dL Normal 8.6-10.3 [facility] Comment on above: Performed By: #### C UBLD, BMP, DIFF CBC, LACTIC, PATH SLIDE REV #### [address] Carbon dioxide, total [Moles /volume] in Serum or PlasmaOrdered By: Titi Terry on 08-06-2023 CO2 [Moles/Vol] 22.4 mmol/L Normal 21.0-31.0 [facility] Comment on above: Performed By: #### C UBLD, BMP, DIFF CBC, LACTIC, PATH SLIDE REV #### [address] [address] [facility] Cepheid COVID PCR Negativeon 08-06-2023 SARS-CoV-2 (COVID-19) RNA ROSENDO+probe Ql (Unsp spec) Negative Normal Negative [facility] Comment on above: Result Comment: This is a duplicate Cepheid Xpert Xpress CoV-2/Flu/RSV Plus RNA by RT-PCR result to be used for statistical tracking purpose only. PERFORMED BY: [place] [id number] PATHOLOGIST ENGINEERING PROGRAM MANAGER REJI SALAZAR M.D. Performed By: #### C UBLD, BMP, DIFF CBC, LACTIC, PATH SLIDE REV #### [place] [id number] [place] Chloride [Moles/volume] in S marimar or PlasmaOrdered By: Titi Terry on 08-06-2023 Chloride [Moles/Vol] 99 mmol/L Normal 98-107 [facility] Comment on above: Performed By: #### C UBLD, BMP, DIFF CBC, LACTIC, PATH SLIDE REV #### [facility] [address] Color of Urine by AutoOrdere d By: HEBERT TEMLeelee on 08-06-2023 Color (U) Yellow Normal Yellow [facility] Comment on above: Order Comment: Name Collection Type:: Voided Performed By: #### C UBLD, BMP, DIFF CBC, LACTIC, PATH SLIDE REV #### [facility] [address] Complete Blood Count Auto Di ffon 08-06-2023 Mean Corpuscular HGB Conc 34.8 g/dL Normal 32.0-35.0 [facility] Comment on above: Performed By: #### C UBLD, BMP, DIFF CBC, LACTIC, PATH SLIDE REV #### [address] Monocytes/100 WBC (Bld) 28.85 % High 0.00-20.00 [facility] Comment on above: Result Comment: For adults in ED, MDW > 20.0 may be associated with a higher risk of sepsis during the first 12 hrs of hospital admission Performed By: #### C UBLD, BMP, DIFF CBC, LACTIC, PATH SLIDE REV #### [address] NRBC% 0.0 /100{WBC} Normal 0-0.5 [facility] Comment on above: Performed By: #### C UBLD, BMP, DIFF CBC, LACTIC, PATH SLIDE REV #### [facility] [address] [place] [address] [place] Creatinine [Mass/volume] in Serum or PlasmaOrdered By: Titi Terry on 08-06-2023 Creatinine [Mass/Vol] 0.56 mg/dL Low 0.60-1.20 [facility] Comment on above: Performed By: #### C UBLD, BMP, DIFF CBC, LACTIC, PATH SLIDE REV #### [address] Dipstick and Microscopicon 0 08-06-2023 Bacteria,Urine 2+ High None Seen [facility] Comment on above: Order Comment: Name Collection Type:: Voided Performed By: #### C UBLD, BMP, DIFF CBC, LACTIC, PATH SLIDE REV #### [address] Bilirubin,Urine Negative Normal Negative [facility] Comment on above: Order Comment: Name Collection Type:: Voided Performed By: #### C UBLD, BMP, DIFF CBC, LACTIC, PATH SLIDE REV #### [address] Glucose Ql (U) Normal Normal Normal [facility] Comment on above: Order Comment: Name Collection Type:: Voided Performed By: #### C UBLD, BMP, DIFF CBC, LACTIC, PATH SLIDE REV #### [address] Hyaline Casts,Urine None Normal 0-8 [facility] Comment on above: Order Comment: Name Collection Type:: Voided Performed By: #### C UBLD, BMP, DIFF CBC, LACTIC, PATH SLIDE REV #### [address] Mucus,Urine Rare Normal [facility] Comment on above: Order Comment: Name Collection Type:: Voided Result Comment: PERF ORMED BY: [place] [address] PATHOLOGIST ENGINEERING PROGRAM MANAGER REJI SALAZAR M.D. Performed By: #### C UBLD, BMP, DIFF CBC, LACTIC, PATH SLIDE REV #### [address] Nitrite,Urine Negative Normal Negative [facility] Comment on above: Order Comment: Name Collection Type:: Voided Performed By: #### C UBLD, BMP, DIFF CBC, LACTIC, PATH SLIDE REV #### [address] Non-Squamous Epithelial Cell,U 1-2 High None Seen [facility] Comment on above: Order Comment: Name Collection Type:: Voided Performed By: #### C UBLD, BMP, DIFF CBC, LACTIC, PATH SLIDE REV #### [address] Occult Blood,Urine Negative Normal Negative [facility] Comment on above: Order Comment: Name Collection Type:: Voided Result Comment: PERF ORMED BY: [place] [address] PATHOLOGIST ENGINEERING PROGRAM MANAGER REJI SALAZAR M.D. Performed By: #### C UBLD, BMP, DIFF CBC, LACTIC, PATH SLIDE REV #### [address] Protein,Urine Negative Normal Negative [facility] Comment on above: Order Comment: Name Collection Type:: Voided Performed By: #### C UBLD, BMP, DIFF CBC, LACTIC, PATH SLIDE REV #### [address] RBC,Urine 5-9 High 0-4 [facility] Comment on above: Order Comment: Name Collection Type:: Voided Performed By: #### C UBLD, BMP, DIFF CBC, LACTIC, PATH SLIDE REV #### [address] Specificy [place],Urine 1.022 Normal 1.001-1.030 [facility] Comment on above: Order Comment: Name Collection Type:: Voided Performed By: #### C UBLD, BMP, DIFF CBC, LACTIC, PATH SLIDE REV #### [address] Squamous Epithelial Cell,Urine 10-19 High 0-2 [facility] Comment on above: Order Comment: Name Collection Type:: Voided Performed By: #### C UBLD, BMP, DIFF CBC, LACTIC, PATH SLIDE REV #### [address] Urobilinogen,Urine Normal Normal Normal [facility] Comment on above: Order Comment: Name Collection Type:: Voided Performed By: #### C UBLD, BMP, DIFF CBC, LACTIC, PATH SLIDE REV #### [facility] [address] WBC,Urine 10-19 High 0-4 [facility] Comment on above: Order Comment: Name Collection Type:: Voided Performed By: #### C UBLD, BMP, DIFF CBC, LACTIC, PATH SLIDE REV #### [facility] [address] Epithelial cells.non-squamou s [#/area] in Urine sediment by Automated countOrdered By: PROVIDER TEMP on 08-06-2023 Epithelial cells.non-squamous Auto (Urine sed) [#/Area] 1-2 [HPF] None Seen [facility] Epithelial cells.squamous [# /area] in Urine sediment by Automated countOrdered By: PROVIDER TEMP on 08-06-2023 Epithelial cells.squamous Auto (Urine sed) [#/Area] 10-19 [HPF] 0-2 [facility] Erythrocyte distribution wid th [Ratio] by Automated countOrdered By: Tiit Terry on 08-06-2023 Erythrocyte distribution width (RBC) [Ratio] 13.0 % Normal 11.9-15.3 [facility] Comment on above: Performed By: #### C UBLD, BMP, DIFF CBC, LACTIC, PATH SLIDE REV #### [address] Erythrocytes [#/area] in Uri ne sediment by Automated countOrdered By: PROVIDER TEMP on 08-06-2023 RBC Auto (Urine sed) [#/Area] 5-9 [HPF] 0-4 [facility] Erythrocytes [#/volume] in B lood by Automated countOrdered By: Titi Terry on 08-06-2023 RBC (Bld) [#/Vol] 3.57 10*6/uL Low 3.60-5.00 [facility] Comment on above: Performed By: #### C UBLD, BMP, DIFF CBC, LACTIC, PATH SLIDE REV #### [address] Glucose [Mass/volume] in Ser um or PlasmaOrdered By: Titi Terry on 08-06-2023 Glucose [Mass/Vol] 116 mg/dL High 70-100 [facility] Comment on above: ADA recommended refe rence rangeRandom Glucose Reference Range is dependent on time and content of last meal. Glucose of more than 200 mg/dL in a nonstressed, ambulatory subject supports the diagnosis of Diabetes Mellitus. Result Comment: [place] om Glucose Reference Range is dependent on time and content of last meal. Glucose of more than 200 mg/dL in a nonstressed, ambulatory subject supports the diagnosis of Diabetes Mellitus. ADA recommended reference range Performed By: #### C UBLD, BMP, DIFF CBC, LACTIC, PATH SLIDE REV #### [address] Glucose [Mass/volume] in Uri ne by Test stripOrdered By: PROVIDER TEMP on 08-06-2023 Glucose Test strip (U) [Mass/Vol] Normal mg/dL Normal [facility] Hematocrit [Volume Fraction] of Blood by Automated countOrdered By: Titi Terry on 08-06-2023 Hematocrit (Bld) [Volume fraction] 32.9 % Low 34.0-46.4 [facility] Comment on above: Performed By: #### C UBLD, BMP, DIFF CBC, LACTIC, PATH SLIDE REV #### [place] [id number] [facility] Hemoglobin Test strip Ql (U) Ordered By: PROVIDER TEMP on 08-06-2023 Hemoglobin Ql (U) Negative Negative [facility] Hemoglobin [Mass/volume] in BloodOrdered By: Titi Terry on 08-06-2023 Hemoglobin (Bld) [Mass/Vol] 11.4 g/dL Low 11.8-15.4 [facility] Comment on above: Performed By: #### C UBLD, BMP, DIFF CBC, LACTIC, PATH SLIDE REV #### [place] [id number] [facility] Hepatic Panelon 08-06-2023 Albumin [Mass/Vol] 4.0 g/dL Normal 3.5-5.7 [facility] Comment on above: Performed By: #### C UBLD, BMP, DIFF CBC, LACTIC, PATH SLIDE REV #### [facility] [address] [place] [address] [place] Bilirubin,Indirect 0.2 mg/dL Normal [facility] Comment on above: Performed By: #### C UBLD, BMP, DIFF CBC, LACTIC, PATH SLIDE REV #### [address] Bilirubin.indirect [Mass/Vol] 0.10 mg/dL Normal 0.03-0.18 [facility] Comment on above: Performed By: #### C UBLD, BMP, DIFF CBC, LACTIC, PATH SLIDE REV #### [address] Hyaline casts [#/area] in Ur ine sediment by Automated countOrdered By: PROVIDER TEMP on 08-06-2023 Hyaline casts Auto (Urine sed) [#/Area] None [LPF] 0-8 [facility] Ketones [Presence] in Urine by Test stripOrdered By: PROVIDER TEMP on 08-06-2023 Ketones Ql (U) Negative Normal Negative [facility] Comment on above: Order Comment: Name Collection Type:: Voided Performed By: #### C UBLD, BMP, DIFF CBC, LACTIC, PATH SLIDE REV #### [address] Leukocyte esterase [Presence ] in Urine by Test stripOrdered By: PROVIDER TEMP on 08-06-2023 Leukocyte esterase Test strip Ql (U) 2+ High Negative [facility] Comment on above: Order Comment: Name Collection Type:: Voided Performed By: #### C UBLD, BMP, DIFF CBC, LACTIC, PATH SLIDE REV #### [place] [address] [place] Leukocytes [#/area] in Urine sediment by Automated countOrdered By: PROVIDER TEMP on 08-06-2023 WBC Auto (Urine sed) [#/Area] 10-19 [HPF] 0-4 [facility] Leukocytes [#/volume] correc kristian for nucleated erythrocytes in Blood by Automated counOrdered By: Titivalentin Terry on 08-06-2023 WBC corrected for nucl RBC Auto (Bld) [#/Vol] 9.0 10*3/uL 3.8-11.6 [facility] Leukocytes [#/volume] in Blo od by Automated countOrdered By: Titi Terry on 08-06-2023 WBC (Bld) [#/Vol] 9.0 10*3/uL Normal 3.8-11.6 [facility] Comment on above: Performed By: #### C UBLD, BMP, DIFF CBC, LACTIC, PATH SLIDE REV #### [address] Lipase [Enzymatic activity/v olume] in Serum or PlasmaOrdered By: Titi Terry on 08-06-2023 Lipase [Catalytic activity/Vol] 25.0 U/L Normal 11.0-82.0 [facility] Comment on above: Result Comment: PERF ORMED BY: [place] [address] PATHOLOGIST ENGINEERING PROGRAM MANAGER REJI SALAZAR M.D. Performed By: #### C UBLD, BMP, DIFF CBC, LACTIC, PATH SLIDE REV #### [place] [address] [place] Lymphocytes [#/volume] in Bl ood by Automated countOrdered By: Titi Terry on 08-06-2023 Lymphocytes (Bld) [#/Vol] 0.6 10*3/uL Low 1.00-4.8 [facility] Comment on above: Performed By: #### C UBLD, BMP, DIFF CBC, LACTIC, PATH SLIDE REV #### [place] [address] [place] Lymphocytes/100 leukocytes i n Blood by Automated countOrdered By: Titi Terry on 08-06-2023 Lymphocytes/100 WBC (Bld) 6.2 % Normal . [facility] Comment on above: Performed By: #### C UBLD, BMP, DIFF CBC, LACTIC, PATH SLIDE REV #### [facility] [address] MCH [Entitic mass] by Automa kristian countOrdered By: Titi Terry on 08-06-2023 MCH (RBC) [Entitic mass] 32.0 pg Normal 24.7-34.3 [facility] Comment on above: Performed By: #### C UBLD, BMP, DIFF CBC, LACTIC, PATH SLIDE REV #### [facility] [address] MCHC Auto (RBC) [Mass/Vol]Or dered By: Titi Terry on 08-06-2023 MCHC (RBC) [Mass/Vol] 34.8 g/dL 32.0-35.0 [facility] MCV [Entitic volume] by Auto mated countOrdered By: Titi Terry on 08-06-2023 MCV (RBC) [Entitic vol] 92.0 fL Normal 80-100 [facility] Comment on above: Performed By: #### C UBLD, BMP, DIFF CBC, LACTIC, PATH SLIDE REV #### [address] Monocyte distribution width [Entitic volume] in Blood by AutomatedOrdered By: Titi Terry on 08-06-2023 Monocyte distribution width Auto (Bld) [Entitic vol] 28.85 % 0.00-20.00 [facility] Comment on above: For adults in ED, MD W > 20.0 may be associated with a higher risk of sepsis during the first 12 hrs of hospital admission Mucus [Presence] in Urine by AutomatedOrdered By: PROVIDER TEMP on 08-06-2023 Mucus Auto Ql (U) Rare [LPF] [facility] Neutrophils [#/volume] in Bl ood by Automated countOrdered By: Titi Terry on 08-06-2023 Neutrophils (Bld) [#/Vol] 8.0 10*3/uL High 1.8-7.7 [facility] Comment on above: Performed By: #### C UBLD, BMP, DIFF CBC, LACTIC, PATH SLIDE REV #### [facility] [address] [place] [address] Nitrite Test strip Ql (U)Ord ered By: PROVIDER TEMP on 08-06-2023 Nitrite Ql (U) Negative Negative [facility] No Panel InformationOrdered By: Titi Terry on 08-06-2023 Estimated GFR (CKD-EPI) > 60.0 mL/Min [facility] Creatinine Clearance (Chem 142.49 [facility] Nucleated erythrocytes [Pres ence] in Blood by Automated countOrdered By: Titi Terry on 08-06-2023 Nucleated RBC Auto Ql (Bld) 0.0 /100{WBC} 0-0.5 [facility] Platelet mean volume [Entiti c volume] in Blood by Automated countOrdered By: Titi Terry on 08-06-2023 Platelet mean volume (Bld) [Entitic vol] 6.8 fL Normal 6.3-10.7 [facility] Comment on above: Performed By: #### C UBLD, BMP, DIFF CBC, LACTIC, PATH SLIDE REV #### [facility] [address] [place] [address] [place] Platelets [#/volume] in Bloo d by Automated countOrdered By: Titi Terry on 08-06-2023 Platelets (Bld) [#/Vol] 294 10*3/uL Normal 150-450 [facility] Comment on above: Performed By: #### C UBLD, BMP, DIFF CBC, LACTIC, PATH SLIDE REV #### [facility] [address] [place] [address] [place] Potassium [Moles/volume] in Serum or PlasmaOrdered By: Titi Terry on 08-06-2023 Potassium [Moles/Vol] 3.7 mmol/L Normal 3.5-5.1 [facility] Comment on above: Performed By: #### C UBLD, BMP, DIFF CBC, LACTIC, PATH SLIDE REV #### [facility] [address] [place] [id number] [place] Protein Test strip (U) [Mass /Vol]Ordered By: PROVIDER TEMP on 08-06-2023 Protein (U) [Mass/Vol] Negative Negative [facility] Protein [Mass/volume] in Ser um or PlasmaOrdered By: Titi Terry on 08-06-2023 Protein [Mass/Vol] 6.9 g/dL Normal 6.4-8.9 [facility] Comment on above: Performed By: #### C UBLD, BMP, DIFF CBC, LACTIC, PATH SLIDE REV #### [address] Serum globulin measurement b y calculation (mass/volume)Ordered By: Titi Terry on 08-06-2023 Globulin (S) [Mass/Vol] 2.9 g/dL Normal [facility] Comment on above: Performed By: #### C UBLD, BMP, DIFF CBC, LACTIC, PATH SLIDE REV #### [address] Serum or plasma albumin/glob ulin mass ratioOrdered By: Titi Terry on 08-06-2023 Albumin/Globulin [Mass ratio] 1.4 {ratio} Normal [facility] Comment on above: Performed By: #### C UBLD, BMP, DIFF CBC, LACTIC, PATH SLIDE REV #### [address] Serum or plasma anion gap de terminationOrdered By: Titi Terry on 08-06-2023 Anion gap [Moles/Vol] 13.3 mmol/L Normal 6.0-15.0 [facility] Comment on above: Performed By: #### C UBLD, BMP, DIFF CBC, LACTIC, PATH SLIDE REV #### [address] Serum or plasma non-glucuron idated bilirubin measurement (mass/volume)Ordered By: Titi Terry on 08-06-2023 Bilirubin.indirect [Mass/Vol] 0.2 mg/dL [facility] Sodium [Moles/volume] in Ser um or PlasmaOrdered By: Titi Terry on 08-06-2023 Sodium [Moles/Vol] 131 mmol/L Low 136-145 [facility] Comment on above: Performed By: #### C UBLD, BMP, DIFF CBC, LACTIC, PATH SLIDE REV #### [place] [id number] [place] Specific gravity Test strip (U) [Rel density]Ordered By: PROVIDER TEMP on 08-06-2023 Specific gravity (U) [Rel density] 1.022 1.001-1.030 [facility] Urea nitrogen [Mass/volume] in Serum or PlasmaOrdered By: Titi Terry on 08-06-2023 Urea nitrogen [Mass/Vol] 6 mg/dL Low 7-25 [facility] Comment on above: Performed By: #### C UBLD, BMP, DIFF CBC, LACTIC, PATH SLIDE REV #### [facility] [address] [place] [address] Urine Cultureon 08-06-2023 Bacteria identified Cx Nom (U) 20,000 colonies/ml mixed bacterial skin contaminants 2 Days PERFORMED BY: [place] [address] PATHOLOGIST ENGINEERING PROGRAM MANAGER REJI SALAZAR M.D. Normal [facility] Comment on above: Performed By: #### C UBLD, BMP, DIFF CBC, LACTIC, PATH SLIDE REV #### [facility] [address] [place] [address] Urine appearanceOrdered By: PROVIDER TEMP on 08-06-2023 Appearance (U) Cloudy Critically abnormal Clear [facility] Comment on above: Order Comment: Name Collection Type:: Voided Performed By: #### C UBLD, BMP, DIFF CBC, LACTIC, PATH SLIDE REV #### [facility] [address] [place] [address] Urobilinogen Test strip (U) [Mass/Vol]Ordered By: PROVIDER TEMP on 08-06-2023 Urobilinogen (U) [Mass/Vol] Normal mg/dL Normal [facility] pH of Urine by Test stripOrd ered By: PROVIDER TEMP on 08-06-2023 pH (U) 6.5 [pH] Normal 5.0-9.0 [facility] Comment on above: Order Comment: Name Collection Type:: Voided Performed By: #### C UBLD, BMP, DIFF CBC, LACTIC, PATH SLIDE REV #### [facility] [address] [place] [address] Progress Noteson 07-28-2023 Order Processor Authentication Interface Message Text Received message from Sheila from [facility] regarding where patient was on waitlist advised that patient was seen on 06/10/2022 and there is a 2 to 2 1/2 year wait ----- , July 28, 2023 at 11:20:33 AM ----- ----- Provider: Gayle [facility]-H[facility] Admissions Clerk -- Clinic: [facility] ----- Normal [facility] Alanine aminotransferase [En zymatic activity/volume] in Serum or PlasmaOrdered By: Rico Romero on 06-01-2023 ALT [Catalytic activity/Vol] 15 U/L Normal 7-52 [facility] Comment on above: Performed By: #### C UBLD, BMP, DIFF CBC, LACTIC, PATH SLIDE REV #### [facility] [address] Albumin [Mass/volume] in Ser um or Plasma by Bromocresol green (BCG) dye binding methoOrdered By: Rico Romero on 06-01-2023 Albumin BCG dye [Mass/Vol] 3.5 g/dL 3.5-5.7 [facility] Alkaline phosphatase [Enzyma tic activity/volume] in Serum or PlasmaOrdered By: Rico Romero on 06-01-2023 ALP [Catalytic activity/Vol] 42 U/L Normal 34-104 [facility] Comment on above: Performed By: #### C UBLD, BMP, DIFF CBC, LACTIC, PATH SLIDE REV #### [facility] [address] [place] [id number] [facility] Aspartate aminotransferase [ Enzymatic activity/volume] in Serum or PlasmaOrdered By: Rico Romero on 06-01-2023 AST [Catalytic activity/Vol] 13 U/L Normal 13-39 [facility] Comment on above: Performed By: #### C UBLD, BMP, DIFF CBC, LACTIC, PATH SLIDE REV #### [facility] [address] [place] [id number] [facility] Basophils Auto (Bld) [#/Vol] Ordered By: Arvind Regan on 06-01-2023 Basophils (Bld) [#/Vol] N/A [facility] Basophils/100 WBC Auto (Bld) Ordered By: Maddieneyda Regan on 06-01-2023 Basophils/100 WBC (Bld) N/A [facility] Bilirubin.total [Mass/volume ] in Serum or PlasmaOrdered By: Rico Romero on 06-01-2023 Bilirubin [Mass/Vol] 0.2 mg/dL Low 0.3-1.0 [facility] Comment on above: Performed By: #### C UBLD, BMP, DIFF CBC, LACTIC, PATH SLIDE REV #### [facility] [address] [place] [address] [place] C reactive protein [Mass/vol ume] in Serum or PlasmaOrdered By: Rico Romero on 06-01-2023 CRP [Mass/Vol] 1.1 mg/dL 0.0-0.5 [facility] C-Reactive Proteinon 024 C-Reactive Protein 1.1 mg/dL High 0.0-0.5 [facility] Comment on above: Result Comment: PERF ORMED BY: [place] [address] PATHOLOGIST ENGINEERING PROGRAM MANAGER REJI SALAZAR M.D. Performed By: #### C UBLD, BMP, DIFF CBC, LACTIC, PATH SLIDE REV #### [facility] [address] [place] [address] [place] Calcium [Mass/volume] in Ser um or PlasmaOrdered By: Rico Romero on 06-01-2023 Calcium [Mass/Vol] 8.9 mg/dL Normal 8.6-10.3 [facility] Comment on above: Performed By: #### C UBLD, BMP, DIFF CBC, LACTIC, PATH SLIDE REV #### [facility] [address] [place] [address] [place] Carbon dioxide, total [Moles /volume] in Serum or PlasmaOrdered By: Rico Romero on 06-01-2023 CO2 [Moles/Vol] 26.6 mmol/L Normal 21.0-31.0 [facility] Comment on above: Performed By: #### C UBLD, BMP, DIFF CBC, LACTIC, PATH SLIDE REV #### [facility] [address] Chloride [Moles/volume] in S [place] or PlasmaOrdered By: Rico Romero on 06-01-2023 Chloride [Moles/Vol] 102 mmol/L Normal 98-107 [facility] Comment on above: Performed By: #### C UBLD, BMP, DIFF CBC, LACTIC, PATH SLIDE REV #### [facility] [address] Comprehensive Metabolic Pane carlos 06-01-2023 Albumin [Mass/Vol] 3.5 g/dL Normal 3.5-5.7 [facility] Comment on above: Performed By: #### C UBLD, BMP, DIFF CBC, LACTIC, PATH SLIDE REV #### [facility] [address] [place] [address] [place] Creatinine Clr Calc Pharmacy 191.30 Normal [facility] Comment on above: Performed By: #### C UBLD, BMP, DIFF CBC, LACTIC, PATH SLIDE REV #### [facility] [address] GFR/1.73 sq M.predicted MDRD (S/P/Bld) [Vol rate/Area] mL/min/{1.73_m2} Normal [facility] Comment on above: Performed By: #### C UBLD, BMP, DIFF CBC, LACTIC, PATH SLIDE REV #### [facility] [address] Creatinine [Mass/volume] in Serum or PlasmaOrdered By: Rico Romero on 06-01-2023 Creatinine [Mass/Vol] 0.43 mg/dL Low 0.60-1.20 [facility] Comment on above: Performed By: #### C UBLD, BMP, DIFF CBC, LACTIC, PATH SLIDE REV #### [facility] [address] [place] [address] [place] Diff and CBCon 06-01-2023 Mean Corpuscular HGB Conc 33.0 g/dL Normal 32.0-35.0 [facility] Comment on above: Performed By: #### C UBLD, BMP, DIFF CBC, LACTIC, PATH SLIDE REV #### [facility] [address] Myelocytes 11 % High 0-0 [facility] Comment on above: Performed By: #### C UBLD, BMP, DIFF CBC, LACTIC, PATH SLIDE REV #### [facility] [address] Platelet Estimate Increased Normal Normal [facility] Comment on above: Performed By: #### C UBLD, BMP, DIFF CBC, LACTIC, PATH SLIDE REV #### [facility] [address] Platelet Morphology Normal Normal Normal [facility] Comment on above: Performed By: #### C UBLD, BMP, DIFF CBC, LACTIC, PATH SLIDE REV #### [address] Eosinophils Auto (Bld) [#/Vo l]Ordered By: Arvind Regan on 06-01-2023 Eosinophils (Bld) [#/Vol] N/A [facility] Eosinophils/100 WBC Auto (Bl d)Ordered By: Arvind Regan on 06-01-2023 Eosinophils/100 WBC (Bld) N/A [facility] Eosinophils/100 leukocytes i n Blood by Manual countOrdered By: Arvind Regan on 06-01-2023 Eosinophils/100 WBC (Bld) 4 % High 1-3 [facility] Comment on above: Performed By: #### C UBLD, BMP, DIFF CBC, LACTIC, PATH SLIDE REV #### [address] Erythrocyte Sedimentation Ra don 06-01-2023 ESR (Bld) [Velocity] 30 mm/h High 0-19 [facility] Comment on above: Result Comment: PERF ORMED BY: [place] [address] PATHOLOGIST ENGINEERING PROGRAM MANAGER REJI SALAZAR M.D. Performed By: #### C UBLD, BMP, DIFF CBC, LACTIC, PATH SLIDE REV #### [facility] [address] Erythrocyte distribution wid th [Ratio] by Automated countOrdered By: Arvind Regan on 06-01-2023 Erythrocyte distribution width (RBC) [Ratio] 13.7 % Normal 11.9-15.3 [facility] Comment on above: Performed By: #### C UBLD, BMP, DIFF CBC, LACTIC, PATH SLIDE REV #### [facility] [address] Erythrocyte sedimentation ra te by Photometric methodOrdered By: Rico Romero on 06-01-2023 ESR Photometric method (Bld) [Velocity] 30 mm/hr 0-19 [facility] Erythrocytes [#/volume] in B lood by Automated countOrdered By: Arvind Regan on 06-01-2023 RBC (Bld) [#/Vol] 3.77 10*6/uL Normal 3.60-5.00 [facility] Comment on above: Performed By: #### C UBLD, BMP, DIFF CBC, LACTIC, PATH SLIDE REV #### [facility] [address] Glucose [Mass/volume] in Ser um or PlasmaOrdered By: Rico Romero on 06-01-2023 Glucose [Mass/Vol] 107 mg/dL High 70-100 [facility] Comment on above: ADA recommended refe rence rangeRandom Glucose Reference Range is dependent on time and content of last meal. Glucose of more than 200 mg/dL in a nonstressed, ambulatory subject supports the diagnosis of Diabetes Mellitus. Result Comment: [place] om Glucose Reference Range is dependent on time and content of last meal. Glucose of more than 200 mg/dL in a nonstressed, ambulatory subject supports the diagnosis of Diabetes Mellitus. ADA recommended reference range Performed By: #### C UBLD, BMP, DIFF CBC, LACTIC, PATH SLIDE REV #### [facility] [address] [place] [address] [place] Hematocrit [Volume Fraction] of Blood by Automated countOrdered By: Arvind Regan on 06-01-2023 Hematocrit (Bld) [Volume fraction] 35.5 % Normal 34.0-46.4 [facility] Comment on above: Performed By: #### C UBLD, BMP, DIFF CBC, LACTIC, PATH SLIDE REV #### [facility] [address] Hemoglobin [Mass/volume] in BloodOrdered By: Arvind Regan on 06-01-2023 Hemoglobin (Bld) [Mass/Vol] 11.7 g/dL Low 11.8-15.4 [facility] Comment on above: Performed By: #### C UBLD, BMP, DIFF CBC, LACTIC, PATH SLIDE REV #### [facility] [address] Leukocytes [#/volume] correc kristian for nucleated erythrocytes in Blood by Automated counOrdered By: Arvind Regan on 06-01-2023 WBC corrected for nucl RBC Auto (Bld) [#/Vol] 10.1 10*3/uL 3.8-11.6 [facility] Leukocytes [#/volume] in Blo od by Automated countOrdered By: Arvind Regan on 06-01-2023 WBC (Bld) [#/Vol] 10.1 10*3/uL Normal 3.8-11.6 [facility] Comment on above: Performed By: #### C UBLD, BMP, DIFF CBC, LACTIC, PATH SLIDE REV #### [address] Lymphocytes Auto (Bld) [#/Vo l]Ordered By: Arvind Murdocksein on 06-01-2023 Lymphocytes (Bld) [#/Vol] N/A [facility] Lymphocytes/100 WBC Auto (Bl d)Ordered By: Arvind Murdocksein on 06-01-2023 Lymphocytes/100 WBC (Bld) N/A [facility] Lymphocytes/100 leukocytes i n Blood by Manual countOrdered By: Arvind Poncein on 06-01-2023 Lymphocytes/100 WBC (Bld) 24 % Normal 18-42 [facility] Comment on above: Performed By: #### C UBLD, BMP, DIFF CBC, LACTIC, PATH SLIDE REV #### [facility] [address] MCH [Entitic mass] by Automa kristian countOrdered By: Arvind Regan on 06-01-2023 MCH (RBC) [Entitic mass] 31.0 pg Normal 24.7-34.3 [facility] Comment on above: Performed By: #### C UBLD, BMP, DIFF CBC, LACTIC, PATH SLIDE REV #### [address] MCHC Auto (RBC) [Mass/Vol]Or dered By: Arvind Regan on 06-01-2023 MCHC (RBC) [Mass/Vol] 33.0 g/dL 32.0-35.0 [facility] MCV [Entitic volume] by Auto mated countOrdered By: Arvind Regan on 06-01-2023 MCV (RBC) [Entitic vol] 93.9 fL Normal 80-100 [facility] Comment on above: Performed By: #### C UBLD, BMP, DIFF CBC, LACTIC, PATH SLIDE REV #### [address] Manual blood segmented neutr ophils/100 leukocytesOrdered By: Arvind Regan on 06-01-2023 Segmented neutrophils/100 WBC (Bld) 51 % Normal 50-70 [facility] Comment on above: Performed By: #### C UBLD, BMP, DIFF CBC, LACTIC, PATH SLIDE REV #### [address] Monocytes Auto (Bld) [#/Vol] Ordered By: Arvind Regan on 06-01-2023 Monocytes (Bld) [#/Vol] N/A [facility] Monocytes/100 WBC Auto (Bld) Ordered By: Arvind Murdocksein on 06-01-2023 Monocytes/100 WBC (Bld) N/A [facility] Monocytes/100 leukocytes in Blood by Manual countOrdered By: Arvind Regan on 06-01-2023 Monocytes/100 WBC (Bld) 6 % Normal 2-11 [facility] Comment on above: Performed By: #### C UBLD, BMP, DIFF CBC, LACTIC, PATH SLIDE REV #### [facility] [address] [place] [address] [place] Myelocytes/100 WBC Manual cn t (Bld)Ordered By: Arvind Regan on 06-01-2023 Myelocytes/100 WBC (Bld) 11 % 0-0 [facility] Neutrophils Auto (Bld) [#/Vo l]Ordered By: Arvind Regan on 06-01-2023 Neutrophils (Bld) [#/Vol] N/A [facility] Neutrophils/100 WBC Auto (Bl d)Ordered By: Arvind Regan on 06-01-2023 Neutrophils/100 WBC (Bld) N/A [facility] No Panel InformationOrdered By: Rico Romero on 06-01-2023 Estimated GFR (CKD-EPI) > 60.0 mL/Min [facility] Creatinine Clearance (Chem 191.30 [facility] Nucleated erythrocytes [Pres ence] in Blood by Automated countOrdered By: Arvind Regan on 06-01-2023 Nucleated RBC Auto Ql (Bld) N/A [facility] Peripheral white blood cell differential % bands, microscopic examOrdered By: Arvind Regan on 06-01-2023 Band form neutrophils/100 WBC (Bld) 5 % Normal 0-5 [facility] Comment on above: Performed By: #### C UBLD, BMP, DIFF CBC, LACTIC, PATH SLIDE REV #### [facility] [address] [place] [address] [place] Platelet adequacy [Presence] in Blood by Light microscopyOrdered By: Arvind Regan on 06-01-2023 Platelets LM Ql (Bld) Increased Normal [facility] Platelet mean volume [Entiti c volume] in Blood by Automated countOrdered By: Arvind Regan on 06-01-2023 Platelet mean volume (Bld) [Entitic vol] 6.1 fL Low 6.3-10.7 [facility] Comment on above: Performed By: #### C UBLD, BMP, DIFF CBC, LACTIC, PATH SLIDE REV #### [facility] [address] Platelet morphology finding [Identifier] in BloodOrdered By: Arvind Regan on 06-01-2023 Platelet morphology finding Nom (Bld) Normal Normal [facility] Platelets [#/volume] in Bloo d by Automated countOrdered By: Arvind Regan on 06-01-2023 Platelets (Bld) [#/Vol] 456 10*3/uL High 150-450 [facility] Comment on above: Performed By: #### C UBLD, BMP, DIFF CBC, LACTIC, PATH SLIDE REV #### [facility] [address] Potassium [Moles/volume] in Serum or PlasmaOrdered By: Rico Romero on 06-01-2023 Potassium [Moles/Vol] 4.3 mmol/L Normal 3.5-5.1 [facility] Comment on above: Performed By: #### C UBLD, BMP, DIFF CBC, LACTIC, PATH SLIDE REV #### [facility] [address] Protein [Mass/volume] in Ser um or PlasmaOrdered By: Rico Romero on 06-01-2023 Protein [Mass/Vol] 6.5 g/dL Normal 6.4-8.9 [facility] Comment on above: Performed By: #### C UBLD, BMP, DIFF CBC, LACTIC, PATH SLIDE REV #### [facility] [address] RBC morphologyOrdered By: Maddie Regan on 06-01-2023 RBC morphology finding Nom (Bld) Normal Normal Normal [facility] Comment on above: Performed By: #### C UBLD, BMP, DIFF CBC, LACTIC, PATH SLIDE REV #### [facility] [address] Serum globulin measurement b y calculation (mass/volume)Ordered By: Rico Romero on 06-01-2023 Globulin (S) [Mass/Vol] 3.0 g/dL Normal [facility] Comment on above: Performed By: #### C UBLD, BMP, DIFF CBC, LACTIC, PATH SLIDE REV #### [facility] [address] Serum or plasma albumin/glob ulin mass ratioOrdered By: Rico Romero on 06-01-2023 Albumin/Globulin [Mass ratio] 1.2 {ratio} Normal [facility] Comment on above: Performed By: #### C UBLD, BMP, DIFF CBC, LACTIC, PATH SLIDE REV #### [facility] [address] Serum or plasma anion gap de terminationOrdered By: Rico Romero on 06-01-2023 Anion gap [Moles/Vol] 11.7 mmol/L Normal 6.0-15.0 [facility] Comment on above: Performed By: #### C UBLD, BMP, DIFF CBC, LACTIC, PATH SLIDE REV #### [facility] [address] [place] [address] Sodium [Moles/volume] in Ser um or PlasmaOrdered By: Rico Romero on 06-01-2023 Sodium [Moles/Vol] 136 mmol/L Normal 136-145 [facility] Comment on above: Performed By: #### C UBLD, BMP, DIFF CBC, LACTIC, PATH SLIDE REV #### [facility] [address] [place] [address] Urea nitrogen [Mass/volume] in Serum or PlasmaOrdered By: Rico Romero on 06-01-2023 Urea nitrogen [Mass/Vol] 9 mg/dL Normal 7-25 [facility] Comment on above: Performed By: #### C UBLD, BMP, DIFF CBC, LACTIC, PATH SLIDE REV #### [facility] [address] [place] [address] C-Reactive Proteinon 024 C-Reactive Protein 1.0 mg/dL High 0.0-0.5 [facility] Comment on above: Result Comment: PERF ORMED BY: [place] [id number] PATHOLOGIST ENGINEERING PROGRAM MANAGER REJI SALAZAR M.D. Performed By: #### C UBLD, BMP, DIFF CBC, LACTIC, PATH SLIDE REV #### [address] Diff and CBCon 05-31-2023 Band form neutrophils/100 WBC (Bld) 3 % Normal 0-5 [facility] Comment on above: Performed By: #### C UBLD, BMP, DIFF CBC, LACTIC, PATH SLIDE REV #### [address] Eosinophils/100 WBC (Bld) 3 % Normal 1-3 [facility] Comment on above: Performed By: #### C UBLD, BMP, DIFF CBC, LACTIC, PATH SLIDE REV #### [address] Erythrocyte distribution width (RBC) [Ratio] 13.6 % Normal 11.9-15.3 [facility] Comment on above: Performed By: #### C UBLD, BMP, DIFF CBC, LACTIC, PATH SLIDE REV #### [address] Hematocrit (Bld) [Volume fraction] 34.3 % Normal 34.0-46.4 [facility] Comment on above: Performed By: #### C UBLD, BMP, DIFF CBC, LACTIC, PATH SLIDE REV #### [address] Hemoglobin (Bld) [Mass/Vol] 11.5 g/dL Low 11.8-15.4 [facility] Comment on above: Performed By: #### C UBLD, BMP, DIFF CBC, LACTIC, PATH SLIDE REV #### [address] Lymphocytes/100 WBC (Bld) 38 % Normal 18-42 [facility] Comment on above: Performed By: #### C UBLD, BMP, DIFF CBC, LACTIC, PATH SLIDE REV #### [address] MCH (RBC) [Entitic mass] 31.2 pg Normal 24.7-34.3 [facility] Comment on above: Performed By: #### C UBLD, BMP, DIFF CBC, LACTIC, PATH SLIDE REV #### [address] MCV (RBC) [Entitic vol] 92.8 fL Normal 80-100 [facility] Comment on above: Performed By: #### C UBLD, BMP, DIFF CBC, LACTIC, PATH SLIDE REV #### [address] Mean Corpuscular HGB Conc 33.6 g/dL Normal 32.0-35.0 [facility] Comment on above: Performed By: #### C UBLD, BMP, DIFF CBC, LACTIC, PATH SLIDE REV #### [address] Metamyelocytes 8 % High 0-0 [facility] Comment on above: Performed By: #### C UBLD, BMP, DIFF CBC, LACTIC, PATH SLIDE REV #### [address] Monocytes/100 WBC (Bld) 4 % Normal 2-11 [facility] Comment on above: Performed By: #### C UBLD, BMP, DIFF CBC, LACTIC, PATH SLIDE REV #### [address] Myelocytes 6 % High 0-0 [facility] Comment on above: Performed By: #### C UBLD, BMP, DIFF CBC, LACTIC, PATH SLIDE REV #### [address] Platelet Estimate Increased Normal Normal [facility] Comment on above: Performed By: #### C UBLD, BMP, DIFF CBC, LACTIC, PATH SLIDE REV #### [address] Platelet mean volume (Bld) [Entitic vol] 6.1 fL Low 6.3-10.7 [facility] Comment on above: Performed By: #### C UBLD, BMP, DIFF CBC, LACTIC, PATH SLIDE REV #### [address] Platelet Morphology Normal Normal Normal [facility] Comment on above: Result Comment: PERF ORMED BY: [place] [address] PATHOLOGIST ENGINEERING PROGRAM MANAGER REJI SALAZAR M.D. Performed By: #### C UBLD, BMP, DIFF CBC, LACTIC, PATH SLIDE REV #### [address] Platelets (Bld) [#/Vol] 465 10*3/uL High 150-450 [facility] Comment on above: Performed By: #### C UBLD, BMP, DIFF CBC, LACTIC, PATH SLIDE REV #### [address] Polychromasia Slight Normal [facility] Comment on above: Performed By: #### C UBLD, BMP, DIFF CBC, LACTIC, PATH SLIDE REV #### [address] Promyelocytes 1 % High 0-0 [facility] Comment on above: Performed By: #### C UBLD, BMP, DIFF CBC, LACTIC, PATH SLIDE REV #### [address] RBC (Bld) [#/Vol] 3.70 10*6/uL Normal 3.60-5.00 [facility] Comment on above: Performed By: #### C UBLD, BMP, DIFF CBC, LACTIC, PATH SLIDE REV #### [address] RBC morphology finding Nom (Bld) Normal Normal Normal [facility] Comment on above: Performed By: #### C UBLD, BMP, DIFF CBC, LACTIC, PATH SLIDE REV #### [address] Segmented neutrophils/100 WBC (Bld) 38 % Low 50-70 [facility] Comment on above: Performed By: #### C UBLD, BMP, DIFF CBC, LACTIC, PATH SLIDE REV #### [facility] [address] [place] [address] [place] WBC (Bld) [#/Vol] 10.5 10*3/uL Normal 3.8-11.6 [facility] Comment on above: Performed By: #### C UBLD, BMP, DIFF CBC, LACTIC, PATH SLIDE REV #### [facility] [address] [place] [address] [place] Lactate [Moles/volume] in Se rum or PlasmaOrdered By: Anamaria Benton on 05-31-2023 Lactate [Moles/Vol] 1.4 mmol/L Normal 0.5-2.2 [facility] Comment on above: Result Comment: PERF ORMED BY: [place] [address] PATHOLOGIST ENGINEERING PROGRAM MANAGER REJI SALAZAR M.D. Performed By: #### C UBLD, BMP, DIFF CBC, LACTIC, PATH SLIDE REV #### [address] Metamyelocytes/100 WBC Manua l cnt (Bld)Ordered By: Arvind Regan on 05-31-2023 Metamyelocytes/100 WBC (Bld) 8 % 0-0 [facility] No Panel InformationOrdered By: Arvind Regan on 05-31-2023 Slides for Pathologist Review Ordered path review [facility] Pathologist Slide Reviewon 0 05-31-2023 Pathologist Slide Review Ordered Path Review Normal [facility] Comment on above: Result Comment: PERF ORMED BY: [place] [address] PATHOLOGIST ENGINEERING PROGRAM MANAGER REJI SALAZAR M.D. Performed By: #### C UBLD, BMP, DIFF CBC, LACTIC, PATH SLIDE REV #### [facility] [address] [place] [address] [place] Polychromasia [Presence] in Blood by Light microscopyOrdered By: Arvind Regan on 05-31-2023 Polychromasia LM Ql (Bld) Slight [facility] Promyelocytes/100 WBC Manual cnt (Bld)Ordered By: Arvind Regan on 05-31-2023 Promyelocytes/100 WBC (Bld) 1 % 0-0 [facility] Serum or plasma trough vanco mycin levelOrdered By: Arvind Murdocksein on 05-31-2023 Vancomycin trough [Mass/Vol] 7.4 ug/mL 10.0-20.0 [facility] Comment on above: Last dose: - Vancomycin,Troughon 05-31-19 24 Vancomycin,Trough 7.4 ug/mL Low 10.0-20.0 [facility] Comment on above: Order Comment: Time of next dose? 399 Date of last dose?: [id number] Time of last dose?: 1842 Result Comment: Last dose: - PERFORMED BY: [place] [address] PATHOLOGIST ENGINEERING PROGRAM MANAGER REJI SALAZAR M.D. Performed By: #### C UBLD, BMP, DIFF CBC, LACTIC, PATH SLIDE REV #### [facility] [address] [place] [address] [place] Basophils/100 leukocytes in Blood by Manual countOrdered By: Arvind Regan on 05-30-2023 Basophils/100 WBC (Bld) 0 % Normal 0-2 [facility] Comment on above: Performed By: #### M G, DIFF CBC, CMP #### [facility] [address] [place] [address] [place] Comprehensive Metabolic Pane carlos 05-30-2023 Albumin [Mass/Vol] 3.4 g/dL Low 3.5-5.7 [facility] Comment on above: Performed By: #### M G, DIFF CBC, CMP #### [facility] [address] [place] [address] [place] Albumin/Globulin [Mass ratio] 1.3 {ratio} Normal [facility] Comment on above: Performed By: #### M G, DIFF CBC, CMP #### [facility] [address] ALP [Catalytic activity/Vol] 49 U/L Normal 34-104 [facility] Comment on above: Performed By: #### M G, DIFF CBC, CMP #### [facility] [address] ALT [Catalytic activity/Vol] 19 U/L Normal 7-52 [facility] Comment on above: Performed By: #### M G, DIFF CBC, CMP #### [facility] [address] Anion gap [Moles/Vol] 10.6 mmol/L Normal 6.0-15.0 Th e [facility] Comment on above: Performed By: #### M G, DIFF CBC, CMP #### [facility] [address] AST [Catalytic activity/Vol] 12 U/L Low 13-39 [facility] Comment on above: Performed By: #### M G, DIFF CBC, CMP #### [facility] [address] Bilirubin [Mass/Vol] 0.2 mg/dL Low 0.3-1.0 [facility] Comment on above: Performed By: #### M G, DIFF CBC, CMP #### [facility] [address] [place] [address] [place] Calcium [Mass/Vol] 8.6 mg/dL Normal 8.6-10.3 [facility] Comment on above: Performed By: #### M G, DIFF CBC, CMP #### [place] [address] [place] Chloride [Moles/Vol] 102 mmol/L Normal 98-107 [facility] Comment on above: Performed By: #### M G, DIFF CBC, CMP #### [facility] [address] [place] [id number] [place] CO2 [Moles/Vol] 28.4 mmol/L Normal 21.0-31.0 [facility] Comment on above: Performed By: #### M G, DIFF CBC, CMP #### [place] [address] [place] Creatinine [Mass/Vol] 0.46 mg/dL Low 0.60-1.20 [facility] Comment on above: Performed By: #### M G, DIFF CBC, CMP #### [facility] [address] [place] [address] [place] Creatinine Clr Calc Pharmacy 179.58 Normal [facility] Comment on above: Performed By: #### M G, DIFF CBC, CMP #### [place] [address] [place] GFR/1.73 sq M.predicted MDRD (S/P/Bld) [Vol rate/Area] mL/min/{1.73_m2} Normal [facility] Comment on above: Performed By: #### M G, DIFF CBC, CMP #### [address] Globulin (S) [Mass/Vol] 2.7 g/dL Normal T he [facility] Comment on above: Performed By: #### M G, DIFF CBC, CMP #### [address] Glucose [Mass/Vol] 89 mg/dL Normal 70-100 [facility] Comment on above: Result Comment: [facility] Glucose Reference Range is dependent on time and content of last meal. Glucose of more than 200 mg/dL in a nonstressed, ambulatory subject supports the diagnosis of Diabetes Mellitus. ADA recommended reference range Performed By: #### M G, DIFF CBC, CMP #### [address] Potassium [Moles/Vol] 4.0 mmol/L Normal 3.5-5.1 [facility] Comment on above: Performed By: #### M G, DIFF CBC, CMP #### [address] Protein [Mass/Vol] 6.1 g/dL Low 6.4-8.9 [facility] Comment on above: Performed By: #### M G, DIFF CBC, CMP #### [address] Sodium [Moles/Vol] 137 mmol/L Normal 136-145 [facility] Comment on above: Performed By: #### M G, DIFF CBC, CMP #### [address] Urea nitrogen [Mass/Vol] 12 mg/dL Normal 7-25 [facility] Comment on above: Performed By: #### M G, DIFF CBC, CMP #### [address] Diff and CBCon 05-30-2023 Band form neutrophils/100 WBC (Bld) 1 % Normal 0-5 [facility] Comment on above: Performed By: #### M G, DIFF CBC, CMP #### [address] Eosinophils/100 WBC (Bld) 0 % Low 1-3 [facility] Comment on above: Performed By: #### M G, DIFF CBC, CMP #### [address] Erythrocyte distribution width (RBC) [Ratio] 13.8 % Normal 11.9-15.3 [facility] Comment on above: Performed By: #### M G, DIFF CBC, CMP #### [address] Hematocrit (Bld) [Volume fraction] 30.4 % Low 34.0-46.4 [facility] Comment on above: Performed By: #### M G, DIFF CBC, CMP #### [address] Hemoglobin (Bld) [Mass/Vol] 10.3 g/dL Low 11.8-15.4 [facility] Comment on above: Performed By: #### M G, DIFF CBC, CMP #### [address] Lymphocytes/100 WBC (Bld) 31 % Normal 18-42 [facility] Comment on above: Performed By: #### M G, DIFF CBC, CMP #### [address] MCH (RBC) [Entitic mass] 31.2 pg Normal 24.7-34.3 [facility] Comment on above: Performed By: #### M G, DIFF CBC, CMP #### [address] MCV (RBC) [Entitic vol] 92.2 fL Normal 80-100 [facility] Comment on above: Performed By: #### M G, DIFF CBC, CMP #### [address] Mean Corpuscular HGB Conc 33.8 g/dL Normal 32.0-35.0 [facility] Comment on above: Performed By: #### M G, DIFF CBC, CMP #### [address] Metamyelocytes 4 % High 0-0 [facility] Comment on above: Performed By: #### M G, DIFF CBC, CMP #### [address] Monocytes/100 WBC (Bld) 8 % Normal 2-11 [facility] Comment on above: Performed By: #### M G, DIFF CBC, CMP #### [address] Myelocytes 1 % High 0-0 [facility] Comment on above: Performed By: #### M G, DIFF CBC, CMP #### [address] Platelet Estimate Normal Normal Normal [facility] Comment on above: Performed By: #### M G, DIFF CBC, CMP #### [address] Platelet mean volume (Bld) [Entitic vol] 6.4 fL Normal 6.3-10.7 [facility] Comment on above: Performed By: #### M G, DIFF CBC, CMP #### [address] Platelet Morphology Normal Normal Normal [facility] Comment on above: Result Comment: PERF ORMED BY: [place] [address] PATHOLOGIST ENGINEERING PROGRAM MANAGER REJI SALAZAR M.D. Performed By: #### M G, DIFF CBC, CMP #### [facility] [address] [place] [address] [place] Platelets (Bld) [#/Vol] 418 10*3/uL Normal 150-450 [facility] Comment on above: Performed By: #### M G, DIFF CBC, CMP #### [facility] [address] RBC (Bld) [#/Vol] 3.30 10*6/uL Low 3.60-5.00 [facility] Comment on above: Performed By: #### M G, DIFF CBC, CMP #### [facility] [address] RBC morphology finding Nom (Bld) Normal Normal Normal [facility] Comment on above: Performed By: #### M G, DIFF CBC, CMP #### [address] Segmented neutrophils/100 WBC (Bld) 55 % Normal 50-70 [facility] Comment on above: Performed By: #### M G, DIFF CBC, CMP #### [place] [address] [place] WBC (Bld) [#/Vol] 13.4 10*3/uL High 3.8-11.6 [facility] Comment on above: Performed By: #### M G, DIFF CBC, CMP #### [address] Magnesium [Mass/volume] in S marimar or PlasmaOrdered By: Arvind Regan on 05-30-2023 Magnesium [Mass/Vol] 1.8 mg/dL Low 1.9-2.7 [facility] Comment on above: Result Comment: PERF ORMED BY: [place] [address] PATHOLOGIST ENGINEERING PROGRAM MANAGER REJI SALAZAR M.D. Performed By: #### M G, DIFF CBC, CMP #### [address] Vancomycin [Mass/volume] in Serum or Plasma --peakOrdered By: Arvind Regan on 05-30-2023 Vancomycin peak [Mass/Vol] 14.1 ug/mL 20.0-40.0 [facility] Comment on above: Last dose: - Vancomycin,Peakon 05-30-2023 Vancomycin,Peak 14.1 ug/mL Low 20.0-40.0 [facility] Comment on above: Order Comment: Comme nt ?DRAW 1 HOUR AFTER INFUSION COMPLETES AB 1944 per RN said draw at 2230 AB 8 Date of last dose?: 20230530 Time of last dose?: 170 Result Comment: Last dose: - PERFORMED BY: [place] [address] PATHOLOGIST ENGINEERING PROGRAM MANAGER REJI SALAZAR M.D. Performed By: #### C UBLD, BMP, DIFF CBC, LACTIC, PATH SLIDE REV #### [address] GHULAM with Reflexon 05-29-2023 GHULAM with Reflex Negative Normal Negative [facility] Comment on above: Result Comment: Perf ormed at: CB - [facility] [address] [id number] Lodge Attendant: Tyrell Fernandez PhD, Phone: [phone] PERFORMED BY: [place] [address] PATHOLOGIST ENGINEERING PROGRAM MANAGER REJI SALAZAR M.D. Performed By: #### C UBLD, BMP, DIFF CBC, LACTIC, PATH SLIDE REV #### [address] Anisocytosis [Presence] in B lood by Light microscopyOrdered By: Venita Amanda on 05-29-2023 Anisocytosis Ql (Bld) Slight Normal [facility] Comment on above: Performed By: #### C UBLD, BMP, DIFF CBC, LACTIC, PATH SLIDE REV #### [address] Bacterial blood cultureOrder ed By: Venita Amanda on 05-29-2023 Bacteria identified Cx Nom (Bld) NO GROWTH 5 DAYS [facility] Bacteria identified Cx Nom (Bld) NO GROWTH 5 DAYS [facility] Basic Metabolic Panelon Anion gap [Moles/Vol] Not performed Normal 6.0-15.0 [facility] Comment on above: Performed By: #### C UBLD, BMP, DIFF CBC, LACTIC, PATH SLIDE REV #### [facility] [address] Creatinine Clr Calc Pharmacy 149.21 Normal [facility] Comment on above: Result Comment: PERF ORMED BY: [place] [address] PATHOLOGIST ENGINEERING PROGRAM MANAGER REJI SALAZAR M.D. Performed By: #### C UBLD, BMP, DIFF CBC, LACTIC, PATH SLIDE REV #### [address] GFR/1.73 sq M.predicted MDRD (S/P/Bld) [Vol rate/Area] mL/min/{1.73_m2} Normal [facility] Comment on above: Performed By: #### C UBLD, BMP, DIFF CBC, LACTIC, PATH SLIDE REV #### [facility] [address] Potassium Normal 3.5-5.1 [facility] Comment on above: Result Comment: Spec imen hemolyzed, redraw requested Performed By: #### C UBLD, BMP, DIFF CBC, LACTIC, PATH SLIDE REV #### [place] [address] [place] Basophils Auto (Bld) [#/Vol] Ordered By: Venita Amanda on 05-29-2023 Basophils (Bld) [#/Vol] N/A [facility] Basophils/100 WBC Auto (Bld) Ordered By: Venita Amanda on 05-29-2023 Basophils/100 WBC (Bld) N/A [facility] Blood Cultureon 05-29-2023 Bacteria identified Cx Nom (Bld) NO GROWTH 5 DAYS PERFORMED BY: [place] [address] PATHOLOGIST ENGINEERING PROGRAM MANAGER REJI SALAZAR M.D. Normal [facility] Comment on above: Performed By: #### C UBLD #### [address] Bacteria identified Cx Nom (Bld) NO GROWTH 5 DAYS PERFORMED BY: [place] [address] PATHOLOGIST ENGINEERING PROGRAM MANAGER REJI SALAZAR M.D. Normal [facility] Comment on above: Performed By: #### C UBLD, BMP, DIFF CBC, LACTIC, PATH SLIDE REV #### [address] facial bones w conon 04-0 CT facial bones w con [facility] Main [place] [address] [place] [address] CT Scan Report Signed Patient: Migdalia Connelly MR#: [id number] : 1985 Acct:[id number] Age/Sex: 37 / F ADM Date: 05/29/23 Loc: ER Room: Type: [facility] ER Attending Dr: Copies to: Venita Amanda [...] DISEASE. Impression dictated by: Rickie Smith Jr., D.O.05/29/2023 2:48 PM Dictation Location: [place] [address] Transcribed By: [facility] 05/29/23 1448 Dictated By: Rickie Smith Jr, DO 05/29/23 1443 Signed By: 05/29/23 1448 Normal [facility] Calcium [Mass/volume] in Ser um or PlasmaOrdered By: Venita Amanda on 05-29-2023 Calcium [Mass/Vol] 9.0 mg/dL Normal 8.6-10.3 [facility] Comment on above: Performed By: #### C UBLD, BMP, DIFF CBC, LACTIC, PATH SLIDE REV #### [facility] [address] [place] [address] [place] Carbon dioxide, total [Moles /volume] in Serum or PlasmaOrdered By: Venita Amanda on 05-29-2023 CO2 [Moles/Vol] 24.6 mmol/L Normal 21.0-31.0 [facility] Comment on above: Performed By: #### C UBLD, BMP, DIFF CBC, LACTIC, PATH SLIDE REV #### [facility] [address] [place] [id number] [place] Chloride [Moles/volume] in S marimar or PlasmaOrdered By: Venita Amanda on 05-29-2023 Chloride [Moles/Vol] 99 mmol/L Normal 98-107 [facility] Comment on above: Performed By: #### C UBLD, BMP, DIFF CBC, LACTIC, PATH SLIDE REV #### [facility] [address] [place] [id number] [place] Creatinine [Mass/volume] in Serum or PlasmaOrdered By: Venita Amanda on 05-29-2023 Creatinine [Mass/Vol] 0.55 mg/dL Low 0.60-1.20 [facility] Comment on above: Performed By: #### C UBLD, BMP, DIFF CBC, LACTIC, PATH SLIDE REV #### [address] Diff and CBCon 05-29-2023 Hypochromasia Slight Normal [facility] Comment on above: Performed By: #### C UBLD, BMP, DIFF CBC, LACTIC, PATH SLIDE REV #### [address] Mean Corpuscular HGB Conc 33.2 g/dL Normal 32.0-35.0 [facility] Comment on above: Performed By: #### C UBLD, BMP, DIFF CBC, LACTIC, PATH SLIDE REV #### [address] Metamyelocytes 4 % High 0-0 [facility] Comment on above: Performed By: #### C UBLD, BMP, DIFF CBC, LACTIC, PATH SLIDE REV #### [address] Monocytes/100 WBC (Bld) 18.14 % Normal 0.00-20.00 [facility] Comment on above: Performed By: #### C UBLD, BMP, DIFF CBC, LACTIC, PATH SLIDE REV #### [address] Myelocytes 12 % High 0-0 [facility] Comment on above: Performed By: #### C UBLD, BMP, DIFF CBC, LACTIC, PATH SLIDE REV #### [address] Platelet Estimate Normal Normal Normal [facility] Comment on above: Performed By: #### C UBLD, BMP, DIFF CBC, LACTIC, PATH SLIDE REV #### [address] Platelet Morphology Normal Normal Normal [facility] Comment on above: Result Comment: PERF ORMED BY: [place] [address] PATHOLOGIST ENGINEERING PROGRAM MANAGER REJI SALAZAR M.D. Performed By: #### C UBLD, BMP, DIFF CBC, LACTIC, PATH SLIDE REV #### [address] Polychromasia Slight Normal [facility] Comment on above: Performed By: #### C UBLD, BMP, DIFF CBC, LACTIC, PATH SLIDE REV #### [facility] [address] Eosinophils Auto (Bld) [#/Vo l]Ordered By: Venita Amanda on 05-29-2023 Eosinophils (Bld) [#/Vol] N/A [facility] Eosinophils/100 WBC Auto (Bl d)Ordered By: Venita Amanda on 05-29-2023 Eosinophils/100 WBC (Bld) N/A [facility] Erythrocyte distribution wid th [Ratio] by Automated countOrdered By: Venita Amanda on 05-29-2023 Erythrocyte distribution width (RBC) [Ratio] 13.7 % Normal 11.9-15.3 [facility] Comment on above: Performed By: #### C UBLD, BMP, DIFF CBC, LACTIC, PATH SLIDE REV #### [facility] [address] Erythrocytes [#/volume] in B lood by Automated countOrdered By: Venita Amanda on 05-29-2023 RBC (Bld) [#/Vol] 3.82 10*6/uL Normal 3.60-5.00 [facility] Comment on above: Performed By: #### C UBLD, BMP, DIFF CBC, LACTIC, PATH SLIDE REV #### [address] Glucose [Mass/volume] in Ser um or PlasmaOrdered By: Venita Amanda on 05-29-2023 Glucose [Mass/Vol] 163 mg/dL High 70-100 [facility] Comment on above: ADA recommended refe rence rangeRandom Glucose Reference Range is dependent on time and content of last meal. Glucose of more than 200 mg/dL in a nonstressed, ambulatory subject supports the diagnosis of Diabetes Mellitus. Result Comment: [place] Glucose Reference Range is dependent on time and content of last meal. Glucose of more than 200 mg/dL in a nonstressed, ambulatory subject supports the diagnosis of Diabetes Mellitus. ADA recommended reference range Performed By: #### C UBLD, BMP, DIFF CBC, LACTIC, PATH SLIDE REV #### [facility] [address] Hematocrit [Volume Fraction] of Blood by Automated countOrdered By: Venita Amanda on 05-29-2023 Hematocrit (Bld) [Volume fraction] 35.6 % Normal 34.0-46.4 [facility] Comment on above: Performed By: #### C UBLD, BMP, DIFF CBC, LACTIC, PATH SLIDE REV #### [facility] [address] [place] [address] Hemoglobin [Mass/volume] in BloodOrdered By: Venita Amanda on 05-29-2023 Hemoglobin (Bld) [Mass/Vol] 11.8 g/dL Normal 11.8-15.4 [facility] Comment on above: Performed By: #### C UBLD, BMP, DIFF CBC, LACTIC, PATH SLIDE REV #### [address] Hypochromia LM Ql (Bld)Order ed By: Venita Amanda on 05-29-2023 Hypochromia Ql (Bld) Slight [facility] Carlos 05-29-2023 L Specimen: [id number] Received: 05/29/23 Status: LYDIA Hinton Num: [id number] Spec Type: Impression Subm Dr: Venita Amanda APRN Tissues: PATHPER Procedures: PATHREVIEW Age/ Patient Sex Location Account Attending Physician Migdalia Connelly 37/F 4N [id number] Rico Romero DO SPEC NUM: [id number] RECD: 05/29/23 STATUS: LYDIA HINTON NUM: [id number] BRUNO: 05/29/23- SUBM DR: Venita Amanda APRN ENTERED: 05/29/[address]: MYLES STAFF SPEC TYPE: Impression DEPT: NE ENTERED BY: [id number] RECV BY: [id number] ORDERED: PATHREVIEW ORDERED: PATHREVIEW Pathologist Review Abnormal [...] HCT 35.6 34.0-46.4 % Specimen: [id number] Received: 05/29/23-1424 Status: LYDIA Hinton Num: [id number] Spec Type: Impression Subm Dr: Venita Amanda APRN Tissues: PATHPER Procedures: PATHREVIEW Patient: Migdalia Connelly [id number] (Continued) Specimen: [id number] Received: 05/29/23 (Continued) CBC (Continued) Signed (signature on file) Sharonda Mack MD 06/06/23 0920 Specimen: [id number] Received: 05/29/23 Status: LYDIA Hinton Num: [id number] Spec Type: Impression Subm Dr: Venita Amanda APRN Tissues: PATHPER Procedures: PATHREVIEW Patient: Migdalia Connelly [id number] (Continued) Specimen: [id number] Received: 05/29/23 (Continued) CBC (Continued) MCV 93.2 80-100 fl MCH 31.0 24.7-34.3 pg MCHC 33.2 32.0-35.0 g/dL RDW 13.7 11.9-15.3 % Plt 403 150-450 x10E3/uL MPV 6.4 6.3-10.7 fl Seg 59 50-70 % Band 1 0-5 % Lymph 23 18-42 % [place] 1 L 2-11 % [place] 4 H 0-0 % Myelo 12 H 0-0 % Polychrom Slight Hypochrom Slight [place] Slight Plt Est Normal Normal Plt Morphology Normal Normal Specimen: [id number] Received: 05/29/23 Status: LYDIA H[place] Num: [id number] Spec Type: Impression Subm Dr: Venita Amanda APRN Tissues: PATHPER Procedures: PATHREVIEW Patient: Migdalia Connelly [id number] (Continued) Signed (signature on file) Chin-Blu Mack MD 06/06/23 0920 Normal [facility] Lactate [Moles/volume] in Se rum or PlasmaOrdered By: Venita Amanda on 05-29-2023 Lactate [Moles/Vol] 3.0 mmol/L Off scale high 0.5-2.2 [facility] Comment on above: Critical valueresult calledat 1423 on 05/29/23--- 05/29/23 142 ---Lactic previously reported as: 3.0 *H mmol/L Result Comment: Crit ical value result called at 1423 on 05/29/23 --- 05/29/23 142 --- Lactic previously reported as: 3.0 *H mmol/L PERFORMED BY: [place] [address] PATHOLOGIST ENGINEERING PROGRAM MANAGER REJI SALAZAR M.D. Performed By: #### C UBLD, BMP, DIFF CBC, LACTIC, PATH SLIDE REV #### [facility] [address] [place] [address] Lactic Acid Reflexon 024 Lactic Acid Reflex 2.9 mmol/L Off scale high 0.5-2.2 Th e [facility] Comment on above: Result Comment: Crit ical Result : Called to and read back by: RENATO RODRGIUEZ at: 05/29/2023 18:39:12 by:[email or web address] PERFORMED BY: [place] [address] PATHOLOGIST ENGINEERING PROGRAM MANAGER REJI SALAZAR M.D. Performed By: #### L ACTIC RFX #### [facility] [address] [place] [address] Leukocytes [#/volume] correc kristian for nucleated erythrocytes in Blood by Automated counOrdered By: Venita Amanda on 05-29-2023 WBC corrected for nucl RBC Auto (Bld) [#/Vol] 8.7 10*3/uL 3.8-11.6 [facility] Leukocytes [#/volume] in Blo od by Automated countOrdered By: Venita Amanda on 05-29-2023 WBC (Bld) [#/Vol] 8.7 10*3/uL Normal 3.8-11.6 [facility] Comment on above: Performed By: #### C UBLD, BMP, DIFF CBC, LACTIC, PATH SLIDE REV #### [facility] [address] Lymphocytes Auto (Bld) [#/Vo l]Ordered By: Venita Amanda on 05-29-2023 Lymphocytes (Bld) [#/Vol] N/A [facility] Lymphocytes/100 WBC Auto (Bl d)Ordered By: Venita Amanda on 05-29-2023 Lymphocytes/100 WBC (Bld) N/A [facility] Lymphocytes/100 leukocytes i n Blood by Manual countOrdered By: Venita Amanda on 05-29-2023 Lymphocytes/100 WBC (Bld) 23 % Normal 18-42 [facility] Comment on above: Performed By: #### C UBLD, BMP, DIFF CBC, LACTIC, PATH SLIDE REV #### [address] MCH [Entitic mass] by Automa kristian countOrdered By: Venita Amanda on 05-29-2023 MCH (RBC) [Entitic mass] 31.0 pg Normal 24.7-34.3 [facility] Comment on above: Performed By: #### C UBLD, BMP, DIFF CBC, LACTIC, PATH SLIDE REV #### [address] MCHC Auto (RBC) [Mass/Vol]Or dered By: Venita Amanda on 05-29-2023 MCHC (RBC) [Mass/Vol] 33.2 g/dL 32.0-35.0 [facility] MCV [Entitic volume] by Auto mated countOrdered By: Venita Amanda on 05-29-2023 MCV (RBC) [Entitic vol] 93.2 fL Normal 80-100 [facility] Comment on above: Performed By: #### C UBLD, BMP, DIFF CBC, LACTIC, PATH SLIDE REV #### [facility] [address] [place] [address] [place] Manual blood segmented neutr ophils/100 leukocytesOrdered By: Venita Amanda on 05-29-2023 Segmented neutrophils/100 WBC (Bld) 59 % Normal 50-70 [facility] Comment on above: Performed By: #### C UBLD, BMP, DIFF CBC, LACTIC, PATH SLIDE REV #### [facility] [address] [place] [address] [place] Metamyelocytes/100 WBC Manua l cnt (Bld)Ordered By: Venita Amanda on 05-29-2023 Metamyelocytes/100 WBC (Bld) 4 % 0-0 [facility] Monocyte distribution width [Entitic volume] in Blood by AutomatedOrdered By: Venita Amanda on 05-29-2023 Monocyte distribution width Auto (Bld) [Entitic vol] 18.14 % 0.00-20.00 [facility] Monocytes Auto (Bld) [#/Vol] Ordered By: Venita Amanda on 05-29-2023 Monocytes (Bld) [#/Vol] N/A [facility] Monocytes/100 WBC Auto (Bld) Ordered By: Venita Amanda on 05-29-2023 Monocytes/100 WBC (Bld) N/A [facility] Monocytes/100 leukocytes in Blood by Manual countOrdered By: Venita Amanda on 05-29-2023 Monocytes/100 WBC (Bld) 1 % Low 2-11 [facility] Comment on above: Performed By: #### C UBLD, BMP, DIFF CBC, LACTIC, PATH SLIDE REV #### [facility] [address] [place] [address] [place] Myelocytes/100 WBC Manual cn t (Bld)Ordered By: Venita Amanda on 05-29-2023 Myelocytes/100 WBC (Bld) 12 % 0-0 [facility] Neutrophils Auto (Bld) [#/Vo l]Ordered By: Venita Amanda on 05-29-2023 Neutrophils (Bld) [#/Vol] N/A [facility] Neutrophils/100 WBC Auto (Bl d)Ordered By: Venita Amanda on 05-29-2023 Neutrophils/100 WBC (Bld) N/A [facility] No Panel InformationOrdered By: Venita Amanda on 05-29-2023 Estimated GFR (CKD-EPI) > 60.0 mL/Min [facility] Creatinine Clearance (Chem 149.21 [facility] Slides for Pathologist Review Ordered path review [facility] Nucleated erythrocytes [Pres ence] in Blood by Automated countOrdered By: Venita Amanda on 05-29-2023 Nucleated RBC Auto Ql (Bld) N/A [facility] Pathologist Slide Reviewon 0 05-29-2023 Pathologist Slide Review Ordered Path Review Normal [facility] Comment on above: Result Comment: PERF ORMED BY: [place] [address] PATHOLOGIST ENGINEERING PROGRAM MANAGER REJI SALAZAR M.D. Performed By: #### C UBLD, BMP, DIFF CBC, LACTIC, PATH SLIDE REV #### [facility] [address] Peripheral white blood cell differential % bands, microscopic examOrdered By: Venita Amanda on 05-29-2023 Band form neutrophils/100 WBC (Bld) 1 % Normal 0-5 [facility] Comment on above: Performed By: #### C UBLD, BMP, DIFF CBC, LACTIC, PATH SLIDE REV #### [facility] [address] [place] [address] [place] Platelet adequacy [Presence] in Blood by Light microscopyOrdered By: Venita Amanda on 05-29-2023 Platelets LM Ql (Bld) Normal Normal [facility] Platelet mean volume [Entiti c volume] in Blood by Automated countOrdered By: Venita Amanda on 05-29-2023 Platelet mean volume (Bld) [Entitic vol] 6.4 fL Normal 6.3-10.7 [facility] Comment on above: Performed By: #### C UBLD, BMP, DIFF CBC, LACTIC, PATH SLIDE REV #### [place] [address] [place] Platelet morphology finding [Identifier] in BloodOrdered By: Venita Amanda on 05-29-2023 Platelet morphology finding Nom (Bld) Normal Normal [facility] Platelets [#/volume] in Bloo d by Automated countOrdered By: Veniat Amanda on 05-29-2023 Platelets (Bld) [#/Vol] 403 10*3/uL Normal 150-450 [facility] Comment on above: Performed By: #### C UBLD, BMP, DIFF CBC, LACTIC, PATH SLIDE REV #### [facility] [address] Polychromasia [Presence] in Blood by Light microscopyOrdered By: Venita Amanda on 05-29-2023 Polychromasia LM Ql (Bld) Slight [facility] Potassium [Moles/volume] in Serum or PlasmaOrdered By: Venita Amanda on 05-29-2023 Potassium [Moles/Vol] 4.0 mmol/L Normal 3.5-5.1 [facility] Comment on above: Order Comment: PREVI OUS SAMPLE HEMOLYZED Result Comment: PERF ORMED BY: [place] [address] PATHOLOGIST ENGINEERING PROGRAM MANAGER REJI SALAZAR M.D. Performed By: #### C UBLD, BMP, DIFF CBC, LACTIC, PATH SLIDE REV #### [facility] [address] RBC morphologyOrdered By: Fredrick Amanda on 05-29-2023 RBC morphology finding Nom (Bld) N/A [facility] Serum or plasma anion gap de terminationOrdered By: Venita Amanda on 05-29-2023 Anion gap [Moles/Vol] TNP [facility] Comment on above: Test not performed Serum or plasma free cefurox jeni measurement (mass/volume)Ordered By: Arvind Regan on 05-29-2023 Cefuroxime free [Mass/Vol] Negative Negative [facility] Comment on above: Performed at: [address] [id number] Director: Tyrell Fernandez PhD, Phone: [phone] Sodium [Moles/volume] in Ser um or PlasmaOrdered By: Venita Amanda on 05-29-2023 Sodium [Moles/Vol] 134 mmol/L Low 136-145 [facility] Comment on above: Performed By: #### C UBLD, BMP, DIFF CBC, LACTIC, PATH SLIDE REV #### [facility] [address] Urea nitrogen [Mass/volume] in Serum or PlasmaOrdered By: Venita Amanda on 05-29-2023 Urea nitrogen [Mass/Vol] 11 mg/dL Normal 7-25 [facility] Comment on above: Performed By: #### C UBLD, BMP, DIFF CBC, LACTIC, PATH SLIDE REV #### [facility] [address] CarbamazepineOrdered By: SYS TEM SYSTEM on 04-13-2023 Carbamaz Lvl 6.9 microgram/mL Normal 4.0-12.0 [facility] Comment on above: Performed By: #### 2 [id number], [id number] #### [facility] [address] [place] [address] Physician Orderon 04-13-2023 Physician Order [id number] 0#1.00TIFF Normal [facility] SodiumOrdered By: SYSTEM SYS TEM on 04-13-2023 Sodium [Moles/Vol] 134 mmol/L Low 135-145 [facility] Comment on above: Performed By: #### 2 [id number], [id number] #### [facility] [address] [place] [id number] CHEMISTRYOrdered By: SYSTEM SYSTEM on 02-23-2023 Carbamaz Lvl 8.7 microgram/mL Normal 4.0 - 12.0 mcg/mL Remisol Chem Sodium [Moles/Vol] 123 mmol/L Low 135 - 145 mmol/L Remisol Chem Carbamazepineon 02-23-2023 Carbamaz Lvl 8.7 microgram/mL Normal 4.0-12.0 [facility] Comment on above: Performed By: #### 2 [id number], [id number] #### [facility] [address] [place] [address] Physician Orderon 02-23-2023 Physician Order [id number] 6#1.00TIFF Normal [facility] Sodiumon 02-23-2023 Sodium [Moles/Vol] 123 mmol/L Low 135-145 [facility] Comment on above: Performed By: #### 2 [id number], [id number] #### [facility] [address] [place] [address] UA (CLEAN/CATCH) WAGON DRIVER SALESPERSON/MICRO I F IND.on 05-17-2022 Bilirubin Ql (U) Negative Normal NEGATIVE [facility] Comment on above: Performed By: #### U ACSIND #### [facility] [address] [place] [address] Dr. Pio Mack Clarity (U) CLEAR Normal CLEAR [facility] Comment on above: Performed By: #### U ACSIND #### [facility] [address] [place] [address] Dr. Pio Mack Color (U) LT. YELLOW Normal YELLOW [facility] Comment on above: Performed By: #### U ACSIND #### [facility] [address] [place] [address] Dr. Pio Mack Glucose Ql (U) Negative Normal NEGATIVE [facility] Comment on above: Performed By: #### U ACSIND #### [facility] [address] [place] [address] Dr. Pio Mack Hemoglobin Ql (U) Negative Normal NEGATIVE [facility] Comment on above: Performed By: #### U ACSIND #### [facility] [address] [place] [address] Dr. Pio Mack Ketones Ql (U) Negative Normal NEGATIVE [facility] Comment on above: Performed By: #### U ACSIND #### [facility] [address] [place] [address] Dr. Pio Mack LEUKOCYTES Negative Normal NEGATIVE [facility] Comment on above: Performed By: #### U ACSIND #### [facility] [address] [address] [address] Pio Mack Nitrite Ql (U) Negative Normal NEGATIVE [facility] Comment on above: Performed By: #### U ACSIND #### [facility] [address] [place] [address] [address] Pio Mack pH (U) 7.5 [pH] Normal 5-9 [facility] Comment on above: Performed By: #### U ACSIND #### [facility] [address] [place] [address] Dr. Pio Mack SPEC GRAVITY 1.010 Normal 1.005-<=1.02 5 [facility] Comment on above: Performed By: #### U ACSIND #### [facility] [address] [place] [address] Dr. Pio Mack UA PROTEIN Negative Normal NEGATIVE/ TRACE [facility] Comment on above: Performed By: #### U ACSIND #### [facility] [address] [place] [address] [address] Pio Mack UR MICRO IND NOT INDICATED Normal [facility] Comment on above: Performed By: #### U ACSIND #### [facility] [address] [place] [address] Dr. Pio Mack Urobilinogen Qn (U) 0.2 {Polina'U}/dL Normal 0.2 - 1. 0 [facility] Comment on above: Performed By: #### U ACSIND #### [facility] [address] [place] [address] Dr. Pio Mack PAP ACOG PANEL 2: 30 to 65on 05-06-2022 . . Normal [facility] Comment on above: Result Comment: Perf ormed at: WB Performed By: #### 4 [id number] #### [facility] [address] [place] [address] Dr. Pio Mack Age Gdln ACOG Testing 30-65 Normal [facility] Comment on above: Performed By: #### 4 [id number] #### [facility] [address] [place] [address] Dr. Pio Mack DIAGNOSIS: Comment Normal [facility] Comment on above: Result Comment: NEGA TIVE FOR INTRAEPITHELIAL LESION OR MALIGNANCY. Performed at: WB Performed By: #### 4 [id number] #### [facility] [address] [place] [address] Dr. Pio Mack HPV Aptima Negative Normal Negative [facility] Comment on above: Result Comment: This nucleic acid amplification test detects fourteen high-risk HPV types (16,18,31,33,35,39,45,51,52,56,58,59,66,68) without differentiation. Performed at: =G Performed By: #### 4 [id number] #### [facility] [address] [place] [address] Dr. Pio Mack HPV Genotype Reflex Comment Normal [facility] Comment on above: Result Comment: Crit eria not met, HPV Genotype not performed. Performed at: WB Performed By: #### 4 [id number] #### [facility] [address] [place] [address] Dr. Pio Mack Methodology: Comment Normal [facility] Comment on above: Result Comment: This liquid based ThinPrep(R) pap test was screened with the use of an image guided system. Performed at: WB Performed By: #### 4 [id number] #### [facility] [address] [place] [address] Dr. Pio Mack Note: Comment Normal [facility] Comment on above: Result Comment: The Pap smear is a screening test designed to aid in the detection of premalignant and malignant conditions of the uterine cervix. It is not a diagnostic procedure and should not be used as the sole means of detecting cervical cancer. Both false-positive and false-negative reports do occur. . Performed at: WB Performed By: #### 4 [id number] #### [facility] [address] [place] [address] Dr. Pio Mack Performed by: Comment Normal [facility] Comment on above: Result Comment: Ayesha Poe, Communications Electrician Supervisor (ASCP) Performed at: WB Performed By: #### 4 [id number] #### [facility] [address] [place], [place] [id number] Dr. Pio Mack Specimen adequacy: Comment Normal [facility] Comment on above: Result Comment: Sati sfactory for evaluation. Endocervical and/or squamous metaplastic cells (endocervical component) are present. Performed at: WB Performed By: #### 4 [id number] #### [facility] [address] [address] [address] Pio Mack Vital Signs Date Time Vital Sign Value Performing Clinician Facility 02-29-2024 11:05-0500 Body mass index (BMI) [Ratio] 31.24 kg/m2 Damien Jones LOOP PULLER Work Phone: [facility] 02-29-2024 11:05-0500 Body weight 82.56 kg Damien Jones LOOP PULLER Work Phone: [facility] 02-29-2024 11:05-0500 Diastolic blood pressure 82 mm[Hg] Damien Jones LOOP PULLER Work Phone: [facility] 02-29-2024 11:05-0500 Heart rate 84 /min Damien Jones LOOP PULLER Work Phone: [facility] 02-29-2024 11:05-0500 Systolic blood pressure 142 mm[Hg] Damien Jones LOOP PULLER Work Phone: [facility] 02-28-2024 09:30-0500 Body height 162.6 cm Bhanu Ramirez DPM FACFAS Work Phone: [facility] 02-28-2024 09:30-0500 Body mass index (BMI) [Ratio] 31.58 kg/m2 Bhanu Ramirez DPM FACFAS Work Phone: [facility] 02-28-2024 09:30-0500 Body weight 83.46 kg Bhanu Ramirez DPM FACFAS Work Phone: [facility] 02-28-2024 09:30-0500 Diastolic blood pressure 82 mm[Hg] Bhanu Ramirez DPM FACFAS Work Phone: [facility] 02-28-2024 09:30-0500 Heart rate 71 /min Bhanu Ramirez DPM FACFAS Work Phone: [facility] 02-28-2024 09:30-0500 Systolic blood pressure 132 mm[Hg] Bhanu Ramirez DPM FACFAS Work Phone: [facility] 02-01-2024 09:00-0500 Body height 165.1 cm Penny Denton RN [facility] 02-01-2024 09:00-0500 Body mass index (BMI) [Ratio] 31.72 kg/m2 Penny Denton RN [facility] 02-01-2024 09:00-0500 Body weight 86.46 kg Penny Denton RN [facility] 12-15-2023 09:17-0400 Body temperature 98.2 [degF] Micaela VELEZ Work Phone: [facility] 12-15-2023 09:17-0400 Respiratory rate 0 /min Micaela VELEZ Work Phone: [facility] 12-15-2023 09:16-0400 Diastolic blood pressure 90 mm[Hg] Micaela VELEZ Work Phone: [facility] 12-15-2023 09:16-0400 Heart rate 84 /min [facility]icaela VELEZ [facility] 12-15-2023 09:16-0400 SaO2% (BldA) [Mass fraction] 95 % Micaela VELEZ Work Phone: [facility] 12-15-2023 09:16-0400 Systolic blood pressure 125 mm[Hg] Micaela VELEZ Work Phone: [facility] 11-09-2023 09:19-0400 Body height 162.6 cm Bhanu Ramirez DPM FACFAS Work Phone: [facility] 11-09-2023 09:19-0400 Body mass index (BMI) [Ratio] 31.58 kg/m2 Bhanu Ivance DPM FACFAS Work Phone: [facility] 11-09-2023 09:19-0400 Body weight 83.46 kg Bhanu Dolce DPM FACFAS Work Phone: [facility] 11-09-2023 09:19-0400 Diastolic blood pressure 80 mm[Hg] Bhaun Ramirez DPM FACFAS Work Phone: [facility] 11-09-2023 09:19-0400 Heart rate 68 /min Bhanu Ramirez DPM FACFAS Work Phone: [facility] 11-09-2023 09:19-0400 Systolic blood pressure 130 mm[Hg] Bhanu Ramirez DPM FACFAS Work Phone: [facility] 10-27-2023 09:37-0400 Diastolic blood pressure 62 mm[Hg] Case Melchor MD Work Phone: [facility] 10-27-2023 09:37-0400 Heart rate 65 /min Case Melchor MD Work Phone: [facility] 10-27-2023 09:37-0400 Systolic blood pressure 102 mm[Hg] Case Melchor MD Work Phone: [facility] 10-27-2023 09:34-0400 Body weight 83.46 kg Case Melchor MD Work Phone: [facility] 08-06-2023 22:14-0400 Diastolic blood pressure 81 mm[Hg] IMAN Nathan Saffle Work Phone: [facility] 08-06-2023 22:14-0400 Heart rate 85 /min WOOD BOATBUILDERRocky Nathan Saffle Work Phone: [facility] 08-06-2023 22:14-0400 Respiratory rate 22 /min WOOD BOATBUILDERRocky Nathan Saffle Work Phone: [facility] 08-06-2023 22:14-0400 SaO2% (BldA) [Mass fraction] 100 % WOOD BOATBUILDER Venita Saffle Work Phone: [facility] 08-06-2023 22:14-0400 Systolic blood pressure 142 mm[Hg] IMAN Nathan Saffle Work Phone: [facility] 08-06-2023 19:54-0400 Body height 163.83 cm IMAN Pathakney Saffle Work Phone: [facility] 08-06-2023 19:54-0400 Body temperature 98.2 [degF] WOOD BOATBUILDER Venita Saffle Work Phone: [facility] 08-06-2023 19:54-0400 Body weight 82 kg WOOD BOATBUILDER Venita Saffle Work Phone: [facility] 07-28-2023 14:10-0400 Diastolic blood pressure 80 mm[Hg] Case Melchor MD Work Phone: [facility] 07-28-2023 14:10-0400 Heart rate 75 /min Case Melchor MD Work Phone: [facility] 07-28-2023 14:10-0400 Systolic blood pressure 110 mm[Hg] Case Melchor MD Work Phone: [facility] 07-28-2023 14:07-0400 Body weight 80.74 kg Case Melchor MD Work Phone: [facility] 07-28-2023 14:07-0400 SaO2% (BldA) [Mass fraction] 100 % Case Melchor MD Work Phone: [email or web address] 06-01-2023 12:00-0400 Body temperature 97.3 [degF] WOOD BOATBUILDER Venita Saffle Work Phone: [facility] 06-01-2023 12:00-0400 Diastolic blood pressure 81 mm[Hg] WOOD BOATBUILDER Venita Saffle Work Phone: [facility] 06-01-2023 12:00-0400 Heart rate 82 /min WOOD BOATBUILDER Venita Saffle Work Phone: [facility] 06-01-2023 12:00-0400 Respiratory rate 18 /min WOOD BOATBUILDER Venita Saffle Work Phone: [facility] 06-01-2023 12:00-0400 SaO2% (BldA) [Mass fraction] 98 % WOOD BOATBUILDER Venita Saffle Work Phone: [facility] 06-01-2023 12:00-0400 Systolic blood pressure 137 mm[Hg] WOOD BOATBUILDER Venita Saffle Work Phone: [facility] 06-01-2023 06:00-0400 Body weight 82 kg WOOD BOATBUILDER Venita Saffle Work Phone: [facility] 05-30-2023 12:46-0400 Body height 165.1 cm WOOD BOATBUILDER Venita Saffle Work Phone: [facility] 05-29-2023 16:36-0400 Diastolic blood pressure 98 mm[Hg] [facility] 05-29-2023 16:36-0400 Systolic blood pressure 148 mm[Hg] [facility] 05-29-2023 15:48-0400 Body temperature 98.1 [degF] [facility] 05-29-2023 15:48-0400 Heart rate 90 /min [facility] 05-29-2023 15:48-0400 Respiratory rate 18 /min [facility] 05-29-2023 15:48-0400 SaO2% (BldA) [Mass fraction] 96 % [facility] 05-29-2023 13:05-0400 Body height 165.1 cm [facility] 05-29-2023 13:05-0400 Body weight 81.6 kg [facility] Encounters Encounter Date Encounter Type Care Provider Facility Start: 02-29-2024 End: 02-29-2024 Bamboo geovanni Jones LOOP PULLER Work Phone: [facility] Start: 02-29-2024 End: 02-29-2024 Larryboo geovanni Jones LOOP PULLER Work Phone: [facility] Start: 02-29-2024 End: 02-29-2024 Office outpatient visit 25 minutes Damien Jones LOOP PULLER Work Phone: [facility] Comment on above: Convulsions, unspeci fied convulsion type (CMS/HCC) (Primary Dx); Hyponatremia; Developmental delay; Anger reaction Start: 02-29-2024 End: 02-29-2024 ambulatory DAMIEN JONES Not Available Start: 02-28-2024 End: 02-28-2024 Bamboo flowsheet Bhanu Ramirez DPM FACFAS Work Phone: [facility] Start: 02-28-2024 End: 02-28-2024 Bamboo flowsheet Bhanu Ann Ramirez DPM FACFAS Work Phone: [facility] Start: 02-28-2024 End: 02-28-2024 Patient encounter procedure Bhanu Ramirez DPM FACFAS Work Phone: [facility] Comment on above: Onychomycosis (Prima ry Dx); Pain in right toe(s); Pain in left toe(s) Start: 02-28-2024 End: 02-28-2024 ambulatory BHANU RAMIREZ Not Available Start: 02-23-2024 End: 02-27-2024 Patient encounter procedure Sabra Frias DMD Work Phone: [facility] Start: 02-23-2024 End: 02-27-2024 ambulatory UNKNOWN PROVIDER Facility:[facility] Start: 02-14-2024 End: 02-14-2024 Telephone encounter Megha Sanchez RN [facility] Pre-Admission Testing Start: 02-01-2024 End: 02-01-2024 Nursing evaluation of patient and report Penny Denton RN [facility] Pre-Admission Testing Comment on above: Pre-op evaluation (P rimary Dx) Start: 02-01-2024 End: 02-01-2024 Preprocedural examination done Penny Denton RN [facility] Start: 02-01-2024 ambulatory UNKNOWN PROVIDER Facili ty:[facility] Start: 02-01-2024 Encounter for other preprocedural examination UNKNOWN PROVIDER [facility] Start: 01-07-2024 End: 01-07-2024 Letter encounter [facility] Start: 12-15-2023 End: 12-19-2023 ambulatory UNKNOWN PROVIDER Facility:[facility] Start: 12-15-2023 End: 12-15-2023 Anesthesia consultation Orquidea Florez MD Work Phone: [facility] Start: 12-15-2023 End: 12-15-2023 Patient encounter procedure Marleni Alejandro DDS Work Phone: [facility] Comment on above: Caries (Primary Dx) Start: 12-09-2023 End: 12-09-2023 Bamboo flowsheet Ivory A Felter WOOD BOATBUILDER-PAINTER MIRROR Work Phone: [facility] Start: 12-09-2023 End: 12-09-2023 Bamboo flowsheet Ivory A Felter WOOD BOATBUILDER-PAINTER MIRROR Work Phone: [facility] Start: 12-09-2023 End: 12-09-2023 Office outpatient new 30 minutes Ivory A Felter WOOD BOATBUILDER-PAINTER MIRROR Work Phone: [facility] Comment on above: Lip licking dermatit is Start: 12-09-2023 End: 12-09-2023 ambulatory IVORY A FELTER Not Available Start: 11-23-2023 End: 11-23-2023 Telephone encounter Idania Campbell RN [facility] Pre-Admission Testing Comment on above: PAT (Anesthesia cons ent obtained) Start: 11-23-2023 ambulatory UNKNOWN PROVIDER Facili ty:[facility] Start: 11-09-2023 End: 11-09-2023 Bamboo flowsheet Bhanu D Dolce DPM FACFAS Work Phone: [facility] Start: 11-09-2023 End: 11-09-2023 Bamboo flowsheet Bhanu D Dolce DPM FACFAS Work Phone: [facility] Start: 11-09-2023 End: 11-09-2023 ambulatory BHANU D DOLCE Not Available Start: 11-09-2023 End: 11-09-2023 Patient encounter procedure Bhanu D Dolce DPM FACFAS Work Phone: [facility] Comment on above: Onychomycosis (Prima ry Dx); Pain in right toe(s); Pain in left toe(s) Start: 10-27-2023 End: 10-27-2023 Office outpatient visit 25 minutes Case Melchor MD Work Phone: [facility] Comment on above: Hyponatremia (Primar y Dx) Start: 10-19-2023 End: 10-19-2023 Patient encounter procedure Lizandro Veronica DDS Work Phone: [facility] Comment on above: Caries (Primary Dx) Start: 10-19-2023 ambulatory UNKNOWN PROVIDER Facili ty:[facility] Start: 09-15-2023 End: 09-15-2023 ambulatory DAMIEN ROBERT Not Available Start: 08-30-2023 End: 08-30-2023 ambulatory BHANU D DOLCE Not Available Start: 08-06-2023 End: 08-07-2023 Emergency department patient visit WOOD BOATBUILDERRocky Amanda Work Phone: [facility] Work Phone: Start: 08-01-2023 End: 08-01-2023 Telephone encounter Scanning Provider External [facility] Start: 07-28-2023 End: 07-28-2023 Office outpatient new 45 minutes Case Melchor MD Work Phone: [facility] Comment on above: Hyponatremia (Primar y Dx) Start: 07-26-2023 End: 07-26-2023 ambulatory BHANU D DOLCE Not Available Start: 07-14-2023 End: 07-14-2023 ambulatory DAMIEN ROBERT Not Available Start: 07-12-2023 End: 07-12-2023 ambulatory BHANU D DOLCE Not Available Start: 06-28-2023 End: 06-28-2023 ambulatory BHANU D DOLCE Not Available Start: 06-09-2023 ambulatory [facility] Start: 06-07-2023 End: 06-07-2023 ambulatory BHANU D DOLCE Not Available Start: 05-30-2023 End: 06-01-2023 Evaluation and management of inpatient WOOD BOATBUILDER Venita Saffle Work Phone: [facility] Work Phone: Start: 05-29-2023 Evaluation and management of inpatient [address] [facility] Work Phone: Start: 05-29-2023 observation encounter NON STAFF [facility] Work Phone: Start: 05-29-2023 End: 06-01-2023 Non-patient / Non-visit [facility] Work Phone: Start: 05-25-2023 Orders Only Case perez MD Work Phone: [facility] Comment on above: Hyponatremia (Primar y Dx) Start: 05-04-2023 End: 05-04-2023 ambulatory BHANU RAMIREZ Not Available Start: 04-13-2023 End: 04-14-2023 ambulatory LIO MUÑOZ Facility:[facility] Start: 04-13-2023 End: 04-13-2023 Lab Drop off LIO MUÑOZ [facility] Start: 02-23-2023 End: 02-23-2023 Lab Drop off LIO MUÑOZ [facility] Start: 02-23-2023 End: 02-24-2023 ambulatory LIO MUÑOZ Facility:[facility] Start: 07-21-[address] LIO MUÑOZ Fac ility:[facility] Start: 06-10-2022 End: 06-14-2022 Patient encounter procedure Scarlett Albarran DDS Work Phone: [facility] Start: 05-17-2022 End: 05-17-[address] LIO MUÑOZ Facility: Start: 04-28-2022 End: 04-28-[address] SONAL CARRERO . Facility:[facility] Start: 02-14-2023 Letter encounter [facility] Start: 05-08-2018 End: 05-12-2018 Patient encounter procedure PROVIDER NOT IN SYSTEM [facility] Procedures Date Procedure Procedure Detail Performing Clinician Start: 08-06-2023 SARS-CoV-2, Influenz a & RSV (PCR) IMAN Amanda Work Phone: Start: 05-29-2023 CT of facial bones w ith contrast Start: 05-29-2023 Blood culture for bacteria, including anaerobic screen IMAN Amanda Work Phone: Plan of Treatment Date Care Activity Detail Author Start: 2036 Shingles (RZV) Vacci ne (1 of 2) Shingles (RZV) Vaccine (1 of 2) [facility] Start: 11-11-2029 DTaP,Tdap and Td Vaccines (7 - Td or Tdap) DTaP,Tdap and Td Vaccines (7 - Td or Tdap) [facility] Start: 11-11-2029 Tetanus vaccination Tetanus (T d or Tdap) Booster [facility] Start: 05-17-2024 End: 05-17-2024 Patient encounter procedure 05/17/2024 8:40 AM EDT Office Visit [facility] [address] [place] [address] Damien Jones NP [address] [place] [address] [facility] Start: 05-08-2024 End: 05-08-2024 Patient encounter procedure 05/08/2024 9:30 AM EDT Procedure Visit [facility] [address] [place] [address] Bhanu Ramirez, DPM FACFAS [address] [place] [address] [facility] Start: 02-29-2024 End: 02-29-2024 Patient encounter procedure [facility] [address] Comment on above: Arrived Start: 02-28-2024 End: 02-28-2024 Patient encounter procedure [facility] Comment on above: Arrived Start: 02-23-2024 End: 02-23-2024 Patient encounter procedure 02/23/2024 10:50 AM EST Procedure Visit [facility] [address] [place] [address] Sabra Frias, DMD [address] [place] [address] [facility] Start: 02-01-2024 End: 02-01-2024 Nursing evaluation of patient and report 02/01/2024 9:00 AM EST Nurse Visit [facility] Pre-Admission Testing [address] [place] [address] Penny Denton, RN [address] [place] [address] [facility] Pre-Admission Testing Start: 12-15-2023 End: 12-15-2023 Patient encounter procedure 12/15/2023 12:00 PM EDT Procedure Visit [facility] [address] [place] [address] Sabra Frias, DMD [address] [place] [address] [facility] Start: 12-09-2023 End: 12-09-2023 Patient encounter procedure 12/09/2023 12:40 PM EDT Office Visit [facility] [address] [place] [address] Ivory Hannah, WOOD BOATBUILDER-PAINTER MIRROR [address] [place] [address] Arrived [facility] Comment on above: Arrived Start: 11-22-2023 Influenza vaccination Influenza Vacc ine (#1) [facility] Start: 10-27-2023 End: 10-27-2023 Patient encounter procedure 10/27/2023 9:30 AM EDT Office Visit [facility] [address] [place] [address] Case Melchor MD [address] [place] [address] [facility] Start: 10-23-2023 COVID-19 Vaccine ( season) COVID-19 Vaccine () [facility] Start: 10-23-2023 COVID-19 Vaccine ( season) COVID-19 Vaccine () [facility] Start: 10-23-2023 Influenza vaccination [facility] Start: 08-06-2023 CT of head without contrast CT head/brain wo con [facility] Start: 08-06-2023 CT Unspecified body region WO contrast [facility] Start: 08-06-2023 Diagnostic radiograp hy of abdomen [facility] Start: 08-06-2023 Bacteria identified in Urine by Culture [facility] Start: 07-28-2023 End: 07-28-2023 Patient encounter procedure 07/28/2023 2:30 PM EDT Office Visit N [facility] [address] [place] [address] Case Melchor MD [address] [place] [address] [facility] Start: 07-28-2023 End: 07-20-2024 Cortisol Cortisol Lab Routine Hyponatremia Expected: 07/28/2023 (Approximate), Expires: 07/20/2024 [facility] Work Phone: Comment on above: Expected: 07/28/2023 (Approximate), Expires: 07/20/2024 Start: 07-28-2023 End: 07-20-2024 Osmolality of Serum or Plasma Osmolality Lab Routine Hyponatremia Expected: 07/28/2023 (Approximate), Expires: 07/20/2024 [facility] Comment on above: Expected: 07/28/2023 (Approximate), Expires: 07/20/2024 Start: 07-28-2023 End: 07-20-2024 Osmolality, urine Osmolality, urine Lab Routine Hyponatremia Expected: 07/28/2023 (Approximate), Expires: 07/20/2024 [facility] Comment on above: Expected: 07/28/2023 (Approximate), Expires: 07/20/2024 Start: 07-28-2023 End: 07-20-2024 TSH with Reflex TSH with Reflex Lab Routine Hyponatremia Expected: 07/28/2023 (Approximate), Expires: 07/20/2024 [facility] Comment on above: Expected: 07/28/2023 (Approximate), Expires: 07/20/2024 Start: 07-28-2023 End: 07-20-2024 Urate [Mass/volume] in Serum or Plasma Uric acid Lab Routine Hyponatremia Expected: 07/28/2023 (Approximate), Expires: 07/20/2024 [facility] Comment on above: Expected: 07/28/2023 (Approximate), Expires: 07/20/2024 Start: 06-09-2023 End: 06-09-2023 Patient encounter procedure 06/09/2023 10:00 AM EDT Office Visit [facility] [address] [place] [id number] [facility] Start: 06-08-2023 [facility] Start: 06-07-2023 [facility] Start: 06-06-2023 [facility] Start: 06-05-2023 [facility] Start: 06-04-2023 [facility] Start: 06-03-2023 [facility] Start: 06-02-2023 [facility] Start: 06-01-2023 End: 06-01-2023 [facility] Start: 05-31-2023 [facility] Start: 05-30-2023 Comprehensive metabo lic 2000 panel - Serum or Plasma [facility] Start: 05-30-2023 End: 05-30-2023 [facility] Start: 05-29-2023 Hospital admission [facility] Start: 05-29-2023 [facility] Start: 05-29-2023 Bacteria identified in Blood by Culture [facility] Start: 05-29-2023 Blood culture for bacteria, including anaerobic screen Blood Culture [facility] Start: 05-29-2023 [facility] Start: 10-22-2022 COVID-19 Vaccine () COVID-19 Vaccine () [facility] Start: 05-03-2022 End: 05-03-2022 Patient encounter procedure 05/03/2022 Procedure Visit Dentistry Holli Nguyen, HALINA [address] [place] [address] [facility] Start: 11-21-2021 Influenza vaccination Influenza Vacc ine (#1) [facility] Start: 02-11-2021 COVID-19 Vaccine (4 - Booster for Pfizer series) COVID-19 Vaccine (4 - Booster for Pfizer series) [facility] Start: 2016 Screening for malign ant neoplasm of cervix [facility] Start: 2013 HPV Vaccine (optiona l start 27-45 years) HPV Vaccine (optional start 27-45 years) [facility] Start: 04-21-2008 Annual wellness visit Annual W ellness Visit (G0438) [facility] Start: 07-05-2007 Screening for malign ant neoplasm of cervix Pap Smear [facility] Start: 2005 DTaP,Tdap and Td Vaccines (1 - Tdap) DTaP,Tdap and Td Vaccines (1 - Tdap) [facility] Start: 2005 Hepatitis A (HAV) Vaccine (optional start 19+ years) Hepatitis A (HAV) Vaccine (optional start 19+ years) [facility] Start: 2004 Adult BMI Screening Adult BMI Screen ing [facility] Start: 2004 Hepatitis C screening Hepatitis C An tibody [facility] Start: 2001 HIV screening HIV Test [facility] Start: 02-21-1999 Annual wellness visit Annual W ellness Visit (G0438) [facility] Start: 1998 Depression Screening Depression Scre ening [facility] Start: 1998 Tobacco Screening Tobacco Screening [facility] Start: 1986 Screening for malign ant neoplasm of breast [facility] End: 05-24-2024 Basic metabolic 2000 panel - Serum or Plasma Basic Metabolic Panel Lab Routine Hyponatremia 1 Occurrences starting 05/25/2023 until 05/24/2024 [facility] Work Phone: Comment on above: 1 Occurrences starti ng 05/25/2023 until 05/24/2024 End: 05-24-2024 CBC panel - Blood by Automated count CBC without diff Lab Routine Hyponatremia 1 Occurrences starting 05/25/2023 until 05/24/2024 [facility] Comment on above: 1 Occurrences starti ng 05/25/2023 until 05/24/2024 Cefuroxime free [Mass/volume] in Serum or Plasma [facility] End: 05-24-2024 Magnesium [Mass/volume] in Serum or Plasma Magnesium Lab Routine Hyponatremia 1 Occurrences starting 05/25/2023 until 05/24/2024 [facility] Comment on above: 1 Occurrences starti ng 05/25/2023 until 05/24/2024 Patient Education Constipation, Adult (DC) Headache, Adult (DC) [facility] Work Phone: Patient referral [facility] Work Phone: End: 05-24-2024 Phosphate [Mass/volume] in Serum or Plasma Phosphorus Lab Routine Hyponatremia 1 Occurrences starting 05/25/2023 until 05/24/2024 [facility] Comment on above: 1 Occurrences starti ng 05/25/2023 until 05/24/2024 End: 05-24-2024 Protein creat ratio Protein creat ratio Lab Routine Hyponatremia 1 Occurrences starting 05/25/2023 until 05/24/2024 [facility] Comment on above: 1 Occurrences starti ng 05/25/2023 until 05/24/2024 Sodium [Moles/volume ] in Serum or Plasma Sodium Lab Routine Hyponatremia Ordered: 02/29/2024 [facility] Work Phone: Comment on above: Ordered: 02/29/2024 End: 07-20-2024 Sodium, urine, random Sodium, urine, random Lab Routine Hyponatremia 1 Occurrences starting 07/28/2023 until 07/20/2024 [facility] Comment on above: 1 Occurrences starti ng 07/28/2023 until 07/20/2024 End: 05-24-2024 Urinalysis Urinalysis Lab Routine Hyponatremia 1 Occurrences starting 05/25/2023 until 05/24/2024 [facility] Comment on above: 1 Occurrences starti ng 05/25/2023 until 05/24/2024 Urine Creatinine,Rdm Urine Creat inine,Rdm Lab Routine Hyponatremia Ordered: 07/28/2023 [facility] Comment on above: Ordered: 07/28/2023 End: 12-15-2023 Urine test visual color cmprsn meths URINE HCG-IN OFFICE Lab Routine One time for 1 Occurrences starting 12/15/2023 until 12/15/2023 [facility] Work Phone: Comment on above: One time for 1 Occur rences starting 12/15/2023 until 12/15/2023 Immunizations Immunization Date Immunization Notes Care Provider Susi [facility] 12-08-2023 influenza virus vaccine, unspecified formulation Ivory Hannah WOOD BOATBUILDER-PAINTER MIRROR Work Phone: [facility] 12-08-2022 influenza virus vaccine, unspecified formulation Case Melchor MD Work Phone: [facility] 12-17-2020 influenza, injectabl e, quadrivalent, preservative free [facility] 12-17-2020 influenza virus vaccine, unspecified formulation [facility] 03-25-2020 Pfizer (12+ yrs) SARS-COV-2 (COVID-19) vaccine, mRNA, spike protein, LNP, pres. free, 30 mcg/0.3mL dose ([id number]) [facility] 03-04-2020 Pfizer (12+ yrs) SARS-COV-2 (COVID-19) vaccine, mRNA, spike protein, LNP, pres. free, 30 mcg/0.3mL dose ([id number]) [facility] 11-28-2019 influenza, injectabl e, quadrivalent, preservative free [facility] 11-12-2019 tetanus toxoid, redu anila diphtheria toxoid, and acellular pertussis vaccine, adsorbed [facility] 11-30-2017 influenza, injectabl e, quadrivalent, preservative free [facility] 12-15-2016 influenza, injectabl e, quadrivalent, contains preservative [facility] 12-12-2014 influenza, injectabl e, quadrivalent, preservative free [facility] 11-10-2010 influenza, seasonal, injectable [facility] 07-07-2006 meningococcal polysaccharide (groups A, C, Y and W-135) diphtheria toxoid conjugate vaccine (MCV4P) [facility] 11-29-2001 TD(adult) unspecifie d formulation [facility] 05-04-2001 hepatitis B vaccine, pediatric or pediatric/adolescent dosage [facility] 11-10-2000 hepatitis B vaccine, pediatric or pediatric/adolescent dosage [facility] 10-10-2000 hepatitis B vaccine, pediatric or pediatric/adolescent dosage [facility] 05-30-1998 measles, mumps and rubella virus vaccine [facility] 12-03-1991 TD(adult) unspecifie d formulation [facility] 12-03-1991 trivalent poliovirus vaccine, live, oral [facility] 09-06-1988 diphtheria, tetanus toxoids and pertussis vaccine [facility] 09-06-1988 trivalent poliovirus vaccine, live, oral [facility] 01-23-1988 haemophilus influenz ae type b vaccine, conjugate unspecified formulation [facility] 04-30-1987 measles, mumps and rubella virus vaccine [facility] 1986 diphtheria, tetanus toxoids and pertussis vaccine [facility] 1986 diphtheria, tetanus toxoids and pertussis vaccine [facility] 1986 trivalent poliovirus vaccine, live, oral [facility] 1985 diphtheria, tetanus toxoids and pertussis vaccine [facility] 1985 trivalent poliovirus vaccine, live, oral [facility] Payers Date Payer Category Payer Dental --Stand Alone DENTAL-MEDI CAID [id number] 2018 Medicaid [id number]. [id number] 2007 Medicare FFS MEDICARE [id number]. [id number] 2006 Medicare [id number] 1.13.56.2.7. [id number] 1986 Unknown [id number] 2.16.840.1.369522.3.579.2.5 1986 Unknown [id number] 2.16.840.1.667955.3.579.2.5 1986 Unknown [id number] 2.16.840.1.317245.3.579.2.5 1986 Unknown [id number] 2.16.840.1.573682.3.579.2.7 1986 Unknown [id number] 2.16.840.1.363444.3.579.2.7 1986 Unknown [id number] 2.16.840.1.755250.3.579.2.1 1986 Unknown [id number] 2.16.840.1.290943.3.579.2.7 32 1986 Unknown [id number] 2.16.840.1.592976.3.579.2.7 32 1986 Unknown [id number] 2.16.840.1.814598.3.579.2.7 32 1986 Unknown [id number] 2.16.840.1.222102.3.579.2.7 32 1986 Unknown [id number] 2.16.840.1.155915.3.579.2.7 32 1986 Unknown [id number] 2.16.840.1.428913.3.579.2.1 259 1986 Unknown [id number] 2.16.840.1.885052.3.579.2.1 259 1986 Unknown [id number] 2.16.840.1.283823.3.579.2.1 259 1986 Unknown [id number] 2.16.840.1.835509.3.579.2.1 259 1986 Unknown [id number] 2.16.840.1.888159.3.579.2.1 259 1986 Unknown [id number] 2.16.840.1.687334.3.579.2.1 259 1986 Unknown [id number] 2.16.840.1.505253.3.579.2.1 259 1986 Unknown [id number] 2.16.840.1.574711.3.579.2.1 259 1986 Unknown [id number] 2.16.840.1.757353.3.579.2.1 259 1986 Unknown [id number] 2.16.840.1.691253.3.579.2.1 259 1986 Unknown [id number] 2.16.840.1.454339.3.579.2.1 259 1986 Unknown [id number] 2.16.840.1.396916.3.579.2.1 259 1959 Medicaid [id number] 1958 Medicare [id number] Medicare Medicare [id number] Social History Date Type Detail Facility Start: 06-13-2020 End: 05-04-2023 Tobacco smoking status NHIS Never smoked tobacco [facility] Work Phone: Start: 06-13-2020 End: 05-04-2023 Tobacco use and exposure Smokeless tobacco non-user [facility] Start: 07-15-2020 End: 02-28-2024 Alcohol intake Lifetime non-drinker (finding) [facility] Start: 06-13-2020 History SDOH Alcohol Frequency 1 [facility] Start: 1985 [facility] Tobacco smoking status No Smoking Status Entered [facility] Start: 07-15-2020 End: 02-28-2024 Sex Assigned At Female [facility] Start: 1985 Sex Assigned At Female [facility] Start: 08-06-2023 Tobacco smoking status NHIS Unknown if ever smoked [facility] Start: 07-15-2020 End: 02-28-2024 History of Social function [facility] Start: 01-12-2012 Sex Female (finding) [facility] NEGATED: Highlighted row [facility] Goals Date Patient Goal Desired Activity /State Functional Status Date Assessment Result Facility 06-01-2023 Functional status [facility] at [facility] Work Phone: Mental Status Date Assessment Result Facility 06-01-2023 Cognitive function Cognitive Sta tus Patient at [facility] Work Phone: Clinical Notes 06-10-2022 to 02-29-2024 Damien Jones NP - 02/29/2024 11:00 AM Hemant Ramirez DPM FACFAS - 02/28/2024 9:30 AM Sabra Tsai DMD - 02/23/2024 9:37 AM ESTDischarmarisol InstructionsProcedure Summary Note Date & Type Note Facility 02-29-2024 History of Presen t illness Narrative Images from the original note were not included. Chief Complaint Patient presents with Convulsions Subjective Migdalia Connelly, 38 y.o., female The patient presents today for follow up to convulsions/seizure activity. She is accompanied today by a facility caregiver. Admits labs after last visit, September 2023 that were ordered by her PCP. She takes carbamazepine and lamotrigine, tolerating well. Her caregiver denies any symptoms to suggest breakthrough seizure and states previous concern to her knowledge was many years ago. No signs of nocturnal seizure and no concerns with staring off episodes. Caregiver states the patient has not had any episodes of syncope or increased confusion. The patient has been sleeping well, and mood has been stable. The patient and caregiver deny further concerns today. Review of Systems Constitutional: Negative for appetite change, fatigue and fever. Respiratory: Negative for cough, shortness of breath and wheezing. Cardiovascular: Negative for chest pain, palpitations and leg swelling. Gastrointestinal: Negative for abdominal pain, constipation, diarrhea and nausea. Musculoskeletal: Negative for arthralgias, gait problem and myalgias. Neurological: Positive for seizures (history of). Negative for dizziness, tremors, numbness and headaches. Past Medical History: Diagnosis Date ADHD (attention deficit hyperactivity disorder) ([facility]) Alteration of consciousness Anger reaction Astigmatism Bipolar disorder ([facility]) Convulsions ([facility]) Developmental delay GERD (gastroesophageal reflux disease) Hypercholesterolemia ([facility]) Hyperopia Hypertension ([facility]) Impulse control disorder ([facility]) Intellectual disability ([facility]) Mental disorder Mental retardation, mild Mood disorder ([facility]) OCD (obsessive compulsive disorder) ([facility]) Osteopenia PTSD (post-traumatic stress disorder) ([facility]) Seizures ([facility]) History reviewed. No pertinent surgical history. No family history on file. Social History Tobacco Use Smoking status: Never Smokeless tobacco: Never Substance Use Topics Alcohol use: Never Allergies: Amoxicillin, Aripiprazole, Chlorpheniramine, Dextromethorphan hbr, Food, Metyrosine, Molindone, Nalbuphine, Sympathomimetics, and Valproic acid Vitals: 02/29/24 1105 BP: 142/82 Pulse: 84 Body mass index is 31.24 kg/m . weight: 182 lb Neurologic exam: Mental status: Developmentally delayed, in no acute distress. Grossly oriented to person, place and time. Memory partially intact. Developmental delay. Chronic dysarthria. Attention and concentration decreased at baseline. Fund of knowledge is at baseline. Cranial nerves: CN II: Visual acuity is normal. Visual ray full to confrontation. CN III, IV, : pupils equal round and reactive to light. Extraocular movements intact. No ptosis present. CN V: Facial sensation is normal. CN VII: Full and symmetric facial movement. CN VIII: Hearing is intact. CN IX and X: Palate elevates symmetrically. CN XI: Shoulder shrug is normal bilaterally. CN XII: Tongue is midline without atrophy or fasciculation. 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 RLE Strength illopsoas, quadriceps, tibialis anterior, and gastrocnemius strength 5/5. LLE Strength illopsoas, quadriceps, tibialis anterior, and gastrocnemius strength 5/5. Normal tone x4 extremities. Bulk is normal. Sensory: Sensation is intact to light touch throughout distal extremities. Reflexes: RUE biceps reflex 2+, brachioradialis reflex 2+. LUE biceps reflex 2+, brachioradialis reflex 2+. RLE knee reflex 1+. LLE knee reflex 1+. Negative Brian's Coordination: [id number] testing is normal Gait: Normal Review and summary of old records: Sodium level on 10/21/23 was 132 Labs on 08/17/23: Lamotrigine level 5.8 (wnl), Sodium 138 LABS on 04/28/23: Na 131 LABS on 04/13/23: Carbamazepine level 6.9 (within normal limits). Sodium level 134 (mildly low) LABs on 03/22/23: Carbamazepine level 8.7 (WNL). Sodium level 123 (L) LABS on 09/14/22: Carbamazepine level 8.3 (WNL). Lamotrigine level 4.9 (WNL). CBC overall unremarkable. Sodium level 134 (L). LFTs (WNL) Routine EEG at [facility] in March 2018: Normal MRI of the brain w and w/o contrast at 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 Assessment/Plan Diagnoses and all orders for this visit: Convulsions, unspecified convulsion type (CMS/HCC) The patient has a history of behavioral reactions and outbursts that can be convulsive in nature. Per documentation, these have resembled seizures but seem to be nonepileptic. However, the patient does have developmental delay which increases epilepsy risk. She has been stable on lamotrigine and carbamazepine without concerns for any breakthrough seizures for several years. Carbamazepine dose has been decreased to low sodium levels however it seems that her sodium level is again dropping. PLAN: - Continue lamotrigine PO 200 mg in morning and 400 mg in the evening (primarily for mood/psych) - Decrease carbamazepine XR PO to 200 mg in the morning, 100 mg in the afternoon, and 200 mg in the evening - Will recheck sodium level prior to next appointment. Lab slip printed and given to the patient today. - Medication compliance discussed - No driving (the patient does not) - If concerns for a breakthrough epileptic event would consider the addition of Onfi - I advised the caregiver to notify the office or have the patient evaluated should the patient experience seizure-like activity or acute alteration of mental status in the future Hyponatremia Sodium level 132 on 10/21/23. See plan above. Developmental delay The patient is developmentally delayed which certainly raises the risk for epilepsy. Anger reaction Seemingly stable per report from the patient's caregiver today. PLAN: - Follow closely with psychiatry and primary care provider for management Follow up in 2-3 months (lab to be completed prior) or sooner if symptoms worsen, fail to improve, or should a new neurological concern arise. Pt has been fully educated on their diagnosis, treatment options, follow up plan, and return instructions documented in this encounter [facility] 02-28-2024 History of Presen t illness Narrative Images from the original note were not included. patient: Migdalia Connelly : 1985 PCP: Lio Muñoz MD SUBJECTIVE This is a 38 y.o. female that presents today with a chief complaint of painful elongated nails digits 1 through 10. They cause marked limitation in ambulation due to pain and pressure from shoe gear. Allergies: Allergies Allergen Reactions Amoxicillin Unknown Aripiprazole Unknown Chlorpheniramine Unknown Dextromethorphan Hbr Food Peterson Slaw Metyrosine Unknown Molindone Unknown Nalbuphine Unknown Sympathomimetics Valproic Acid Unknown Per OSH H+P 08/2018 Past Medical History: Past Medical History: Diagnosis Date ADHD (attention deficit hyperactivity disorder) ([facility]) Alteration of consciousness Anger reaction Astigmatism Bipolar disorder ([facility]) Convulsions ([facility]) Developmental delay GERD (gastroesophageal reflux disease) Hypercholesterolemia ([facility]) Hyperopia Hypertension ([facility]) Impulse control disorder ([facility]) Intellectual disability ([facility]) Mental disorder Mental retardation, mild Mood disorder ([facility]) OCD (obsessive compulsive disorder) ([facility]) Osteopenia PTSD (post-traumatic stress disorder) ([facility]) Seizures ([facility]) Medications: Current Outpatient Medications: acetaminophen (Tylenol) 325 MG tablet, TAKE TWO TABLETS BY MOUTH TWICE A DAY NEEDED FOR TEMP OR GENERAL DISCOMFORT, Disp: , Rfl: atomoxetine (Strattera) 40 MG capsule, , Disp: , Rfl: atomoxetine (Strattera) 60 MG capsule, 1 (one) time each day at the same time, Disp: , Rfl: Aviane 0.1-20 MG-MCG tablet, Take 1 tablet by mouth Daily, Disp: , Rfl: Calcium Polycarbophil (fiber) 625 MG tablet, every 8 (eight) hours, Disp: , Rfl: Calcium+D3 600-20 MG-MCG tablet, Take 1 tablet by mouth in the morning and 1 tablet before bedtime., Disp: , Rfl: carBAMazepine XR (TEGretol XR) 200 MG 12 hr tablet, Take 200 mg by mouth in the morning and 200 mg in the evening and 200 mg before bedtime., Disp: , Rfl: cloNIDine (Catapres) 0.2 MG tablet, 1 (one) time each day at the same time, Disp: , Rfl: dicyclomine (Bentyl) 20 MG tablet, every 12 (twelve) hours, Disp: , Rfl: Docusate Sodium (DSS) 100 MG capsule, 1 (one) time each day at the same time, Disp: , Rfl: fenofibrate micronized (Lofibra) 134 MG capsule, 1 (one) time each day at the same time, Disp: , Rfl: fluticasone (Flonase) 50 MCG/ACT nasal spray, INHALE 2 SPRAYS INTO EACH NOSTRIL ONCE DAILY NEEDED, Disp: , Rfl: guanFACINE (Tenex) 2 MG tablet, 1 (one) time each day at the same time, Disp: , Rfl: lamoTRIgine (LaMICtal) 100 MG tablet, 1 (one) time each day at the same time, Disp: , Rfl: lamoTRIgine (LaMICtal) 150 MG tablet, Take 300 mg by mouth at bedtime, Disp: , Rfl: lamoTRIgine (LaMICtal) 200 MG tablet, Take 1 tablet by mouth Daily, Disp: , Rfl: loratadine (Claritin) 10 MG tablet, 1 (one) time each day at the same time, Disp: , Rfl: metoprolol tartrate (Lopressor) 100 MG tablet, every 12 (twelve) hours, Disp: , Rfl: montelukast (Singulair) 10 MG tablet, 1 (one) time each day at the same time, Disp: , Rfl: OLANZapine (ZyPREXA) 10 MG tablet, , Disp: , Rfl: OLANZapine (ZyPREXA) 20 MG tablet, 1 (one) time each day at the same time, Disp: , Rfl: omeprazole (PriLOSEC) [address] capsule, 1 (one) time each day at the same time, Disp: , Rfl: paliperidone (Invega) 6 MG 24 hr tablet, 1 tablet in the morning and 1 tablet before bedtime., Disp: , Rfl: sennosides (Senokot) 8.6 MG tablet, Twice daily, Disp: , Rfl: tacrolimus (Protopic) 0.1 % ointment, Apply to affected areas bid prn when flared, Disp: 60 g, Rfl: 11 Review of systems: Constitutional: Denies fever, chills, nausea, vomiting GI: Denies abdominal pain, cramping, loose stool, gastric ulcers Musculoskeletal: Denies low back pain, knee pain, systemic arthritis Neurologic: Denies burning, tingling, transient paralysis OBJECTIVE Physical Examination: DERM: Positive hair growth to b/l feet with good skin turgor noted. Negative openings in skin. No macerations noted interdigitally. Web spaces were clean and dry. No ulcerations were noted. Nails 1 through 10 were thickened elongated yellow and crumbly with subungual debris. They were painful to palpation 04262 on the right 21314 on the left. VASC: DP /PT were nonpalpable bilateral. Capillary refill time < 3 seconds Digits 1-5 bilateral NEURO: [place] [facility] 5.07 monofilament was intact B/L. Vibratory sensation was intact B/L Musculoskeletal: Muscle strength was +5 over 5 all intrinsic and extrinsic muscles tested. Radiographs: AP/MO/LAT: Diagnostic ultrasound: ASSESSMENT 1. Onychomycosis 2. Pain in right toe(s) 3. Pain in left toe(s) PLAN The patient was educated on proper foot care as well as the etiology of onychomycosis. I educated the patient on proper shoe gear as well. Today the nails were debrided both in length and thickness 1 through 10. DAY Laura documented in this encounter [facility] 02-23-2024 Note Patient recovered by anesthesia in procedure room. [facility] 02-23-2024 History of Presen t illness Narrative ----- February at 10:34:06 AM ----- ----- Provider: Shelby Frias DMD -- Clinic: [facility] ----- PT. WAS SEEN IN [facility] UNDER TWILIGHT SEDATION WITH ANESTHESIA TEAM. Anesthesia diagnosis: Unspecified mental disorder- F09 and Other intellectual disabilities- F78 Dental diagnosis: Dental Caries, unspecified - K02.9 COMPOSITE JEWISH Patient is scheduled for Rastafari on tooth #23 MFL and 24 DFL. Reviewed Medical History. Patient is ready for treatment. Topical Benzocaine gel applied at the injection site for 2 minutes. Administered 2 carpules of Lidocaine, 2% with Epinephrine 1:100,000,. Cotton roll isolation achieved. Decay/existing rastafarian removed, cavity prepared. Selectively etched enamel with 37% phosphoric acid, rinsed, and blot dried. OptiBond bowles applied and light-cured. Condensed packable composite shade A2 in light cured increments using Mylar strip and wedge. Finished with finishing burs, checked occlusion, verified proximal contacts and rastafarian was polished. Rinsed and suctioned intraorally, advised patient to not eat until local anesthesia wears off. NOTE: Pt. was not cooperative for IV sedation; moved head and tried to sit up often. Due to behavior today, it is recommended for patient's safety to be seen in OR for all remaining treatment. Next Visit: OR for comprehensive treatment ----- Signed on February at 10:36:59 AM ----- ----- Provider: Shelby Frias DMD -- Clinic: [facility] ----- documented in this encounter [facility] 02-14-2024 Telephone encount er Note Anesthesia consent obtained by Dr. Koch and scanned into [employer]. [facility] 02-14-2024 Miscellaneous Notes Formattin g of this note might be different from the original. Anesthesia consent obtained by Dr. Koch and scanned into [employer]. documented in this encounter [facility] 02-01-2024 Instructions Penny Denton RN - 02/01/2024 9:44 AM EST You are you have surgery with Dr. Frias on 02/22/2023 at [facility] which is located at [address] [place] [address] PATIENT MEDICATION INSTRUCTIONS: On the morning of your surgery, please take only the following medications, with a small sip of water: FLUTICASONE PROPIONATE, NASAL, NASAL acetaminophen (TYLENOL) 325 mg tablet paliperidone (INVEGA) 6 MG 24 hour tablet lamotrigine (LaMICtal) 200 MG tablet carBAMazepine (TEGRETOL XR) 200 MG SR tablet Aviane 0.1-20 MG-MCG per tablet cloNIDine (CATAPRES) 0.2 MG tablet guanFACINE HCl 2 MG TABS montelukast (SINGULAIR) 10 MG tablet omeprazole (PRILOSEC) 20 MG capsule metoprolol (LOPRESSOR) 100 MG tablet DO NOT TAKE Fenofibrate within 24 hours of the procedure - LAST DOSE 02/21/2024 Do not take any Aspirin 7 days before the surgery. Do not take any Ibuprofen products/NSAIDs 3 days before surgery. May take over the counter Acetaminophen (Tylenol) as needed for pain. Do not take any herbal medications 7 days prior to surgery (Fish Oil, Ginseng, Ginko Biloba) DAY OF SURGERY NOTES: Please use this CHECKLIST to prepare for your surgery/procedure: Assume that any lab or testing done during your Pre-admission testing appointment is within normal limits unless otherwise contacted. Expect a call from [facility] one business day prior to surgery for surgery arrival time and location. Please plan to restart your medications the day after surgery unless otherwise explicitly instructed. Please contact your surgeon s/proceduralist s office for any surgical or recovery types of questions. CANCELLING YOUR SURGERY/PROCEDURE: If you get a cold, are not feeling well, or become , please call your surgeon s office as soon as possible. Refer to your Preparing for Your Surgery/Procedure booklet or [email or web address] if you have questions. Contact the Pre-Admission Testing department at [phone] or your surgeon's office with any questions that are not answered. Eating and drinking before surgery: Adult Patients: Plain water withOUT additives is acceptable up to 2 hours prior to surgery arrival time. No food or any other type of liquids for at least 8 hours prior to surgery arrival time. A sip of water with morning medications is acceptable. Enhanced Recovery After Surgery (ERAS), bariatric, and endoscopy/colonoscopy patients should follow their surgeon s/proceduralist s instructions for clear fluids prior to surgery. Patients whose assigned sex at was female, and are starting puberty or beyond, will be urine tested for per hospital policy. Pediatric Patients (under the age of 1212 years old): Patients are not to have solid food for 8 hours prior to coming for surgery. Patients can have infant formula or non-human milk (skim, 2%, whole, nut-milks, soy, etc.) 6 hours prior to coming for surgery. Patients can have breast milk up to 4 hours prior to coming for surgery. Patients can have clear liquids (water, flavored flores, Pedialyte) up to 2 hours prior to coming for surgery. ON THE DAY OF SURGERY: DO bring your ID, insurance card, medication list, and a small amount of guerra for filling prescriptions and any medical co-pays. Do NOT wear any jewelry including rings, earrings, or mouth, tongue, or body piercings. Metal jewelry could cause constriction, amputation, or quinn. Loose or bulky things in your mouth can be unsafe and result in breathing problems. DO bring glasses if you wear contacts and other assistance items such as oxygen, inhaler, cane, walker, etc. Do NOT bring valuables, credit cards, or large amounts of guerra. Do NOT wear lotion or strong-smelling fragrance (perfume, cologne, cream or lotion). ARRANGE FOR A RIDE: If you are scheduled to go home the same day of surgery, a responsible adult MUST drive or accompany you home in a car, cab, shared ride service, or Metro-van. You will not be allowed to drive yourself home or travel home alone. Your surgery may be cancelled if you do not have a ride. A responsible adult must stay with you after surgery. Please call [employer] if you need transportation assistance or have concerns about going home [phone]. PEDIATRIC or ADOLESCENTS: Parents or a legal guardian must remain at the hospital during surgery. You will need to make childcare arrangements for your other small children to remain at home or bring an adult with you who can supervise them in the waiting area while you are with your child. Please bring legal guardianship papers with you if applicable. Patients whose assigned sex at was female, and are starting puberty or beyond, will be urine tested for per hospital policy. SLEEP APNEA PATIENTS: Bring your sleep apnea machine and mask. PLEASE BE ON TIME. A late arrival may result in the cancellation/ delay of your surgery. A risk of anesthesia is nausea and/or vomiting (PONV). Certain patients are at higher risk than others. Talk to your anesthesiologist about the plan to minimize this risk. In general, it is best to start with only ice chips or small sips of water, then progress to clear, non-alcoholic fluids. You do not have to eat if you do not feel like it; fluids are the most important in the first 24 hours after surgery. If you start to eat, try bananas, applesauce, plain toast, saltine crackers, or broth; avoid fried or fatty foods. Make sure to eat something about 15 minutes before taking any pain medications. Seek medical attention for any prolonged PONV and signs of dehydration. Thank you for choosing [facility]; it is our pleasure to care for you. documented in this encounter [facility] 02-01-2024 Evaluation note Images from the original note were not included. Telephone History Migdalia Cueva Godwin, [id number] 02/01/2024 Patient was identified by name and date of with Nurse Anaya from [place]. Needs: Physical, Neck Circumference, Glasses, BHCG, Intellectual Disability, Anxiety and Seizure Precautions on DOS. If the patient becomes ill prior to procedure or surgery, they are to call their provider or surgeon's office directly. 02/01/2024 - communicated with patient will need urine test the morning of the procedure 02/01/2024-Spoke with Dr. 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 No Snoring No Tired/Fatigued No Observed Apnea No Pressure: Hypertension No BMI greater than 35 0 Age greater than 50 0 Neck circ greater than 40cm (15.75 ) Unable to Assess Gender male? 0 Score 0 EXERCISE CAPACITY: 4-10 mets ALLERGIES: Abilify, Amoxicillin, Depakote [valproic acid], Food, Metyrosine, Moban [molindone], Nubain [nalbuphine], Sympathomimetics, and Vicks 44 cough relief [dextromethorphan hbr] PREVIOUS ANESTHETIC EXPERIENCES AND INTUBATION HISTORY: No previous anesthetic complication FAMILY HISTORY OF ANESTHETIC COMPLICATIONS: No PAST MEDICAL HISTORY: Past Medical History: Diagnosis Date Attention deficit hyperactivity disorder (ADHD) 05/25/2012 Attention deficit disorder with hyperactivity Caries 09/05/2018 Added automatically from request for surgery [id number] Constipation Per OSH H+P 08/2018 Dental decay 08/26/2016 Added automatically from request for surgery [id number] Developmental delay Per OSH H+P 08/2018 Hormone imbalance Per OSH H+P 08/2018 HTN (hypertension) Per OSH H+P 08/2018 Hypercholesteremia Per OSH H+P 08/2018 Moderate intellectual disabilities 05/25/2012 Mood disorder (HCC) Per OSH H+P 08/2018 Pituitary microadenoma (HCC) Per OSH H+P 08/2018 Seizures (HCC) Per OSH H+P 08/2018 PROBLEM LIST: Patient Active Problem List: Moderate intellectual disabilities [F71] Attention deficit hyperactivity disorder (ADHD) [F90.9] Unspecified dental caries [K02.9] Chronic periodontitis, unspecified [K05.30] Unconfirmed [Z32.00] Dental decay [K02.9] Caries [K02.9] Past Medical History and Review of Systems Pulmonary - negative ROS Comment: Denies SOB, wheezes, fever, chills, increased sputum, or general malaise. 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 GI/Hepatic/Renal (+) GERD Heme/Other - negative ROS Other ROS: glasses PAST SURGICAL HISTORY: Past Surgical History: Procedure Laterality Date CHOLECYSTECTOMY 2009 Per OSH H+P 08/2018 DENTAL RESTORATIONS Bilateral 12/28/2013 Procedure: DENTAL RESTORATIONS; Surgeon: Lynda Haque DDS; Location: [facility]; Service: Dental DENTAL RESTORATIONS N/A 09/03/2016 Procedure: DENTAL RESTORATIONS; Surgeon: Bhavin Valdovinos DDS; Location: [facility] [place]; Service: Dental DENTAL RESTORATIONS N/A 09/15/2018 Procedure: DENTAL RESTORATIONS; Surgeon: Og Mahoney DDS; Location: [facility] [place]; Service: Dental DENTAL RESTORATIONS Bilateral 07/14/2020 Procedure: DENTAL RESTORATIONS; Surgeon: Og Mahoney DDS; Location: [facility] [place]; Service: Dental SOCIAL HISTORY: Social History Socioeconomic History Marital status: Single Tobacco Use Smoking status: Never Smokeless tobacco: Never Substance and Sexual Activity Alcohol use: Never Drug use: Never PAIN ASSESSMENT: Severity: 0 Location: N/A LABORATORY DATA: [facility] 10/24/2023 LABS TESTS REVIEWED: CXRay: No Chest x-ray found EKG: Last ECG Date: Not Found ECHO: Echocardiogram date: Not Found No results found for this basename: LVEF Stress test date: Last StressTest: none found going back to 09/16/2011 CURRENT MEDICATION LIST: Current Outpatient Medications Medication Sig Dispense Refill ondansetron (Zofran) 4 MG tablet Take 4 mg by mouth every 6 hours as needed for Nausea. FLUTICASONE PROPIONATE, NASAL, NASAL Use 2 Sprays in each nostril daily as needed for Other. IBUPROFEN ORAL Take 400 mg by mouth every 4 hours as needed for Pain. Loperamide HCl 2 MG tab Take 4 mg by mouth as needed for Other. Calcium Carbonate Antacid (Tums Smoothies) 750 MG CHEW Take 2 Tablets by mouth every 4 hours as needed. acetaminophen (TYLENOL) 325 mg tablet Take 650 mg by mouth 2 times daily as needed for Pain or Fever. Polyethylene Glycol 3350 (PEG 3350) 17 GM/SCOOP POWD Take 17 g by mouth every morning. paliperidone (INVEGA) 6 MG 24 hour tablet Take 6 mg by mouth 2 times a day. lamotrigine (LaMICtal) 150 MG tablet Take 300 mg by mouth at bedtime. lamotrigine (LaMICtal) 200 MG tablet Take 200 mg by mouth every morning. OLANZapine (ZyPREXA) 10 MG tablet Take 10 mg by mouth at bedtime. carBAMazepine (TEGRETOL XR) 200 MG SR tablet Take 200 mg by mouth 3 times daily. atomoxetine (STRATTERA) 40 MG capsule Take 40 mg by mouth every evening. atomoxetine (STRATTERA) 60 MG capsule Take 60 mg by mouth every morning. Aviane 0.1-20 MG-MCG per tablet Take 1 Tablet by mouth daily. Calcium+D3 600-20 MG-MCG TABS Take 1 Tablet by mouth 2 times daily. cloNIDine (CATAPRES) 0.2 MG tablet Take 0.2 mg by mouth 3 times daily. guanFACINE HCl 2 MG TABS Take 2 mg by mouth 3 times daily. docusate sodium (COLACE) 100 MG capsule Take 200 mg by mouth 2 times daily. loratadine (CLARITIN) 10 MG tablet Take 10 mg by mouth daily. fenofibrate micronized (LOFIBRA) 134 MG capsule Take 134 mg by mouth at bedtime. montelukast (SINGULAIR) 10 MG tablet Take 10 mg by mouth daily. lamoTRIgine (LAMICTAL) 100 MG tablet Take 100 mg by mouth at bedtime. omeprazole (PRILOSEC) 20 MG capsule Take 20 mg by mouth daily. olanzapine (ZYPREXA) 20 MG tablet Take 20 mg by mouth at bedtime. dicyclomine (BENTYL) 20 MG tablet Take 20 mg by mouth 2 times a day. metoprolol (LOPRESSOR) 100 MG tablet Take 100 mg by mouth 4 times daily. Calcium Polycarbophil (FIBER-LAX ORAL) Take by mouth. No current facility-administered medications for this visit. CURRENT MEDICATIONS: Aspirin: No NSAIDS: Yes - will stop 3 days prior to procedure - tylenol ok Other Antiplatelet Medication: No Anticoagulants: No Steroids: No SGLT-2/GLP-1: No PATIENT MEDICATION INSTRUCTIONS: On the morning of your surgery, please take only the following medications, with a small sip of water: FLUTICASONE PROPIONATE, NASAL, NASAL acetaminophen (TYLENOL) 325 mg tablet paliperidone (INVEGA) 6 MG 24 hour tablet lamotrigine (LaMICtal) 200 MG tablet carBAMazepine (TEGRETOL XR) 200 MG SR tablet Aviane 0.1-20 MG-MCG per tablet cloNIDine (CATAPRES) 0.2 MG tablet guanFACINE HCl 2 MG TABS montelukast (SINGULAIR) 10 MG tablet omeprazole (PRILOSEC) 20 MG capsule metoprolol (LOPRESSOR) 100 MG tablet DO NOT TAKE Fenofibrate within 24 hours of the procedure - LAST DOSE 02/21/2024 Do not take any Aspirin 7 days before the surgery. Do not take any Ibuprofen products/NSAIDs 3 days before surgery. May take over the counter Acetaminophen (Tylenol) as needed for pain. Do not take any herbal medications 7 days prior to surgery (Fish Oil, Ginseng, Ginko Biloba) DAY OF SURGERY NOTES: Please use this CHECKLIST to prepare for your surgery/procedure: Assume that any lab or testing done during your Pre-admission testing appointment is within normal limits unless otherwise contacted. Expect a call from [facility] one business day prior to surgery for surgery arrival time and location. Please plan to restart your medications the day after surgery unless otherwise explicitly instructed. Please contact your surgeon s/proceduralist s office for any surgical or recovery types of questions. CANCELLING YOUR SURGERY/PROCEDURE: If you get a cold, are not feeling well, or become , please call your surgeon s office as soon as possible. Refer to your Preparing for Your Surgery/Procedure booklet or [email or web address] if you have questions. Contact the Pre-Admission Testing department at [phone] or your surgeon's office with any questions that are not answered. Eating and drinking before surgery: Adult Patients: Plain water withOUT additives is acceptable up to 2 hours prior to surgery arrival time. No food or any other type of liquids for at least 8 hours prior to surgery arrival time. A sip of water with morning medications is acceptable. Enhanced Recovery After Surgery (ERAS), bariatric, and endoscopy/colonoscopy patients should follow their surgeon s/proceduralist s instructions for clear fluids prior to surgery. Patients whose assigned sex at was female, and are starting puberty or beyond, will be urine tested for per hospital policy. Pediatric Patients (under the age of 1212 years old): Patients are not to have solid food for 8 hours prior to coming for surgery. Patients can have formula or non-human milk (skim, 2%, whole, nut-milks, soy, etc.) 6 hours prior to coming for surgery. Patients can have breast milk up to 4 hours prior to coming for surgery. Patients can have clear liquids (water, flavored flores, Pedialyte) up to 2 hours prior to coming for surgery. ON THE DAY OF SURGERY: DO bring your ID, insurance card, medication list, and a small amount of guerra for filling prescriptions and any medical co-pays. Do NOT wear any jewelry including rings, earrings, or mouth, tongue, or body piercings. Metal jewelry could cause constriction, amputation, or quinn. Loose or bulky things in your mouth can be unsafe and result in breathing problems. DO bring glasses if you wear contacts and other assistance items such as oxygen, inhaler, cane, walker, etc. Do NOT bring valuables, credit cards, or large amounts of guerra. Do NOT wear lotion or strong-smelling fragrance (perfume, cologne, cream or lotion). ARRANGE FOR A RIDE: If you are scheduled to go home the same day of surgery, a responsible adult MUST drive or accompany you home in a car, cab, shared ride service, or Metro-van. You will not be allowed to drive yourself home or travel home alone. Your surgery may be cancelled if you do not have a ride. A responsible adult must stay with you after surgery. Please call [employer] if you need transportation assistance or have concerns about going home [phone]. PEDIATRIC or ADOLESCENTS: Parents or a legal guardian must remain at the hospital during surgery. You will need to make childcare arrangements for your other small children to remain at home or bring an adult with you who can supervise them in the waiting area while you are with your child. Please bring legal guardianship papers with you if applicable. Patients whose assigned sex at was female, and are starting puberty or beyond, will be urine tested for per hospital policy. SLEEP APNEA PATIENTS: Bring your sleep apnea machine and mask. PLEASE BE ON TIME. A late arrival may result in the cancellation/ delay of your surgery. A risk of anesthesia is nausea and/or vomiting (PONV). Certain patients are at higher risk than others. Talk to your anesthesiologist about the plan to minimize this risk. In general, it is best to start with only ice chips or small sips of water, then progress to clear, non-alcoholic fluids. You do not have to eat if you do not feel like it; fluids are the most important in the first 24 hours after surgery. If you start to eat, try bananas, applesauce, plain toast, saltine crackers, or broth; avoid fried or fatty foods. Make sure to eat something about 15 minutes before taking any pain medications. Seek medical attention for any prolonged PONV and signs of dehydration. Thank you for choosing [facility]; it is our pleasure to care for you. Penny Denton RN Time Spent Performing this Telephone History: 30 [facility] 02-01-2024 Miscellaneous Notes Formattin g of this note is different from the original. Images from the original note were not included. Telephone History Migdalia Cueva Godwin, [id number] 02/01/2024 Patient was identified by name and date of with Nurse Latasha from [facility]. Needs: Physical, Neck Circumference, Glasses, BHCG, Intellectual Disability, Anxiety and Seizure Precautions on DOS. If the patient becomes ill prior to procedure or surgery, they are to call their provider or surgeon's office directly. 02/01/2024 - communicated with patient will need urine test the morning of the procedure 02/01/2024-Spoke with Dr. 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 No Snoring No Tired/Fatigued No Observed Apnea No Pressure: Hypertension No BMI greater than 35 0 Age greater than 50 0 Neck circ greater than 40cm (15.75 ) Unable to Assess Gender male? 0 Score 0 EXERCISE CAPACITY: 4-10 mets ALLERGIES: Abilify, Amoxicillin, Depakote [valproic acid], Food, Metyrosine, Moban [molindone], Nubain [nalbuphine], Sympathomimetics, and Vicks 44 cough relief [dextromethorphan hbr] PREVIOUS ANESTHETIC EXPERIENCES AND INTUBATION HISTORY: No previous anesthetic complication FAMILY HISTORY OF ANESTHETIC COMPLICATIONS: No PAST MEDICAL HISTORY: Past Medical History: Diagnosis Date Attention deficit hyperactivity disorder (ADHD) 05/25/2012 Attention deficit disorder with hyperactivity Caries 09/05/2018 Added automatically from request for surgery [id number] Constipation Per OSH H+P 08/2018 Dental decay 08/26/2016 Added automatically from request for surgery [id number] Developmental delay Per OSH H+P 08/2018 Hormone imbalance Per OSH H+P 08/2018 HTN (hypertension) Per OSH H+P 08/2018 Hypercholesteremia Per OSH H+P 08/2018 Moderate intellectual disabilities 05/25/2012 Mood disorder (HCC) Per OSH H+P 08/2018 Pituitary microadenoma (HCC) Per OSH H+P 08/2018 Seizures (HCC) Per OSH H+P 08/2018 PROBLEM LIST: Patient Active Problem List: Moderate intellectual disabilities [F71] Attention deficit hyperactivity disorder (ADHD) [F90.9] Unspecified dental caries [K02.9] Chronic periodontitis, unspecified [K05.30] Unconfirmed [Z32.00] Dental decay [K02.9] Caries [K02.9] Past Medical History and Review of Systems Pulmonary - negative ROS Comment: Denies SOB, wheezes, fever, chills, increased sputum, or general malaise. 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 GI/Hepatic/Renal (+) GERD Heme/Other - negative ROS Other ROS: glasses PAST SURGICAL HISTORY: Past Surgical History: Procedure Laterality Date CHOLECYSTECTOMY 2009 Per OSH H+P 08/2018 DENTAL RESTORATIONS Bilateral 12/28/2013 Procedure: DENTAL RESTORATIONS; Surgeon: Lynda Haque DDS; Location: [facility]; Service: Dental DENTAL RESTORATIONS N/A 09/03/2016 Procedure: DENTAL RESTORATIONS; Surgeon: Bhavin Valdovinos DDS; Location: [facility] [place]; Service: Dental DENTAL RESTORATIONS N/A 09/15/2018 Procedure: DENTAL RESTORATIONS; Surgeon: Og Mahoney DDS; Location: [facility] [place]; Service: Dental DENTAL RESTORATIONS Bilateral 07/14/2020 Procedure: DENTAL RESTORATIONS; Surgeon: Og Mahoney DDS; Location: [facility] [place]; Service: Dental SOCIAL HISTORY: Social History Socioeconomic History Marital status: Single Tobacco Use Smoking status: Never Smokeless tobacco: Never Substance and Sexual Activity Alcohol use: Never Drug use: Never PAIN ASSESSMENT: Severity: 0 Location: N/A LABORATORY DATA: [facility] 10/24/2023 LABS TESTS REVIEWED: CXRay: No Chest x-ray found EKG: Last ECG Date: Not Found ECHO: Echocardiogram date: Not Found No results found for this basename: LVEF Stress test date: Last StressTest: none found going back to 09/16/2011 CURRENT MEDICATION LIST: Current Outpatient Medications Medication Sig Dispense Refill ondansetron (Zofran) 4 MG tablet Take 4 mg by mouth every 6 hours as needed for Nausea. FLUTICASONE PROPIONATE, NASAL, NASAL Use 2 Sprays in each nostril daily as needed for Other. IBUPROFEN ORAL Take 400 mg by mouth every 4 hours as needed for Pain. Loperamide HCl 2 MG tab Take 4 mg by mouth as needed for Other. Calcium Carbonate Antacid (Tums Smoothies) 750 MG CHEW Take 2 Tablets by mouth every 4 hours as needed. acetaminophen (TYLENOL) 325 mg tablet Take 650 mg by mouth 2 times daily as needed for Pain or Fever. Polyethylene Glycol 3350 (PEG 3350) 17 GM/SCOOP POWD Take 17 g by mouth every morning. paliperidone (INVEGA) 6 MG 24 hour tablet Take 6 mg by mouth 2 times a day. lamotrigine (LaMICtal) 150 MG tablet Take 300 mg by mouth at bedtime. lamotrigine (LaMICtal) 200 MG tablet Take 200 mg by mouth every morning. OLANZapine (ZyPREXA) 10 MG tablet Take 10 mg by mouth at bedtime. carBAMazepine (TEGRETOL XR) 200 MG SR tablet Take 200 mg by mouth 3 times daily. atomoxetine (STRATTERA) 40 MG capsule Take 40 mg by mouth every evening. atomoxetine (STRATTERA) 60 MG capsule Take 60 mg by mouth every morning. Aviane 0.1-20 MG-MCG per tablet Take 1 Tablet by mouth daily. Calcium+D3 600-20 MG-MCG TABS Take 1 Tablet by mouth 2 times daily. cloNIDine (CATAPRES) 0.2 MG tablet Take 0.2 mg by mouth 3 times daily. guanFACINE HCl 2 MG TABS Take 2 mg by mouth 3 times daily. docusate sodium (COLACE) 100 MG capsule Take 200 mg by mouth 2 times daily. loratadine (CLARITIN) 10 MG tablet Take 10 mg by mouth daily. fenofibrate micronized (LOFIBRA) 134 MG capsule Take 134 mg by mouth at bedtime. montelukast (SINGULAIR) 10 MG tablet Take 10 mg by mouth daily. lamoTRIgine (LAMICTAL) 100 MG tablet Take 100 mg by mouth at bedtime. omeprazole (PRILOSEC) 20 MG capsule Take 20 mg by mouth daily. olanzapine (ZYPREXA) 20 MG tablet Take 20 mg by mouth at bedtime. dicyclomine (BENTYL) 20 MG tablet Take 20 mg by mouth 2 times a day. metoprolol (LOPRESSOR) 100 MG tablet Take 100 mg by mouth 4 times daily. Calcium Polycarbophil (FIBER-LAX ORAL) Take by mouth. No current facility-administered medications for this visit. CURRENT MEDICATIONS: Aspirin: No NSAIDS: Yes - will stop 3 days prior to procedure - tylenol ok Other Antiplatelet Medication: No Anticoagulants: No Steroids: No SGLT-2/GLP-1: No PATIENT MEDICATION INSTRUCTIONS: On the morning of your surgery, please take only the following medications, with a small sip of water: FLUTICASONE PROPIONATE, NASAL, NASAL acetaminophen (TYLENOL) 325 mg tablet paliperidone (INVEGA) 6 MG 24 hour tablet lamotrigine (LaMICtal) 200 MG tablet carBAMazepine (TEGRETOL XR) 200 MG SR tablet Aviane 0.1-20 MG-MCG per tablet cloNIDine (CATAPRES) 0.2 MG tablet guanFACINE HCl 2 MG TABS montelukast (SINGULAIR) 10 MG tablet omeprazole (PRILOSEC) 20 MG capsule metoprolol (LOPRESSOR) 100 MG tablet DO NOT TAKE Fenofibrate within 24 hours of the procedure - LAST DOSE 02/21/2024 Do not take any Aspirin 7 days before the surgery. Do not take any Ibuprofen products/NSAIDs 3 days before surgery. May take over the counter Acetaminophen (Tylenol) as needed for pain. Do not take any herbal medications 7 days prior to surgery (Fish Oil, Ginseng, Ginko Biloba) DAY OF SURGERY NOTES: Please use this CHECKLIST to prepare for your surgery/procedure: Assume that any lab or testing done during your Pre-admission testing appointment is within normal limits unless otherwise contacted. Expect a call from [facility] one business day prior to surgery for surgery arrival time and location. Please plan to restart your medications the day after surgery unless otherwise explicitly instructed. Please contact your surgeon s/proceduralist s office for any surgical or recovery types of questions. CANCELLING YOUR SURGERY/PROCEDURE: If you get a cold, are not feeling well, or become , please call your surgeon s office as soon as possible. Refer to your Preparing for Your Surgery/Procedure booklet or [email or web address] if you have questions. Contact the Pre-Admission Testing department at [phone] or your surgeon's office with any questions that are not answered. Eating and drinking before surgery: Adult Patients: Plain water withOUT additives is acceptable up to 2 hours prior to surgery arrival time. No food or any other type of liquids for at least 8 hours prior to surgery arrival time. A sip of water with morning medications is acceptable. Enhanced Recovery After Surgery (ERAS), bariatric, and endoscopy/colonoscopy patients should follow their surgeon s/proceduralist s instructions for clear fluids prior to surgery. Patients whose assigned sex at was female, and are starting puberty or beyond, will be urine tested for per hospital policy. Pediatric Patients (under the age of 1212 years old): Patients are not to have solid food for 8 hours prior to coming for surgery. Patients can have formula or non-human milk (skim, 2%, whole, nut-milks, soy, etc.) 6 hours prior to coming for surgery. Patients can have breast milk up to 4 hours prior to coming for surgery. Patients can have clear liquids (water, flavored flores, Pedialyte) up to 2 hours prior to coming for surgery. ON THE DAY OF SURGERY: DO bring your ID, insurance card, medication list, and a small amount of guerra for filling prescriptions and any medical co-pays. Do NOT wear any jewelry including rings, earrings, or mouth, tongue, or body piercings. Metal jewelry could cause constriction, amputation, or quinn. Loose or bulky things in your mouth can be unsafe and result in breathing problems. DO bring glasses if you wear contacts and other assistance items such as oxygen, inhaler, cane, walker, etc. Do NOT bring valuables, credit cards, or large amounts of guerra. Do NOT wear lotion or strong-smelling fragrance (perfume, cologne, cream or lotion). ARRANGE FOR A RIDE: If you are scheduled to go home the same day of surgery, a responsible adult MUST drive or accompany you home in a car, cab, shared ride service, or Metro-van. You will not be allowed to drive yourself home or travel home alone. Your surgery may be cancelled if you do not have a ride. A responsible adult must stay with you after surgery. Please call [facility] Social Work if you need transportation assistance or have concerns about going home [phone]. PEDIATRIC or ADOLESCENTS: Parents or a legal guardian must remain at the hospital during surgery. You will need to make childcare arrangements for your other small children to remain at home or bring an adult with you who can supervise them in the waiting area while you are with your child. Please bring legal guardianship papers with you if applicable. Patients whose assigned sex at was female, and are starting puberty or beyond, will be urine tested for per hospital policy. SLEEP APNEA PATIENTS: Bring your sleep apnea machine and mask. PLEASE BE ON TIME. A late arrival may result in the cancellation/ delay of your surgery. A risk of anesthesia is nausea and/or vomiting (PONV). Certain patients are at higher risk than others. Talk to your anesthesiologist about the plan to minimize this risk. In general, it is best to start with only ice chips or small sips of water, then progress to clear, non-alcoholic fluids. You do not have to eat if you do not feel like it; fluids are the most important in the first 24 hours after surgery. If you start to eat, try bananas, applesauce, plain toast, saltine crackers, or broth; avoid fried or fatty foods. Make sure to eat something about 15 minutes before taking any pain medications. Seek medical attention for any prolonged PONV and signs of dehydration. Thank you for choosing [facility]; it is our pleasure to care for you. Penny Denton RN Time Spent Performing this Telephone History: 30 documented in this encounter [facility] 12-15-2023 Note Formatting of this n ote is different from the original. Addendum created 12/15/23 1134 by Orquidea Florez MD Clinical Note Signed [facility] 12-15-2023 Miscellaneous Notes Formattin g of this note is different from the original. Addendum created 12/15/23 1134 by Orquidea Florez MD Clinical Note Signed Addendum created 12/15/23 1026 by Domingo Carrion APRN-CRNA Flowsheet accepted, LDA properties accepted Patient recovered by SILK SCREEN PAINTER in room. Patient is awake, comfortable, and stable. 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] Attention deficit hyperactivity disorder (ADHD) [F90.9] Unspecified dental caries [K02.9] Chronic periodontitis, unspecified [K05.30] Unconfirmed [Z32.00] Dental decay [K02.9] Caries [K02.9] Past Surgical History: Review of patient's past surgical history indicates: DENTAL RESTORATIONS (12/28/2013) Procedure: DENTAL RESTORATIONS; Surgeon: Lynda Haque DDS; Location: [facility]; Service: Dental DENTAL RESTORATIONS (09/03/2016) Procedure: DENTAL RESTORATIONS; Surgeon: Bhavin Valdovinos DDS; Location: [facility]; Service: Dental CHOLECYSTECTOMY (2009) Per OSH H+P 08/2018 DENTAL RESTORATIONS (09/15/2018) Procedure: DENTAL RESTORATIONS; Surgeon: Og Mahoney DDS; Location: [facility]; Service: Dental DENTAL RESTORATIONS (07/14/2020) Procedure: DENTAL RESTORATIONS; Surgeon: Og Mahoney DDS; Location: [facility]; Service: Dental Allergies: Abilify, Amoxicillin, Depakote [valproic acid], Food, Metyrosine, Moban [molindone], Nubain [nalbuphine], Sympathomimetics, and Vicks 44 cough relief [dextromethorphan hbr] Basic Operating Room Facts: * No surgeons listed * Anesthesiologist: Orquidea Florez MD SILK SCREEN PAINTER: Domingo Carrion APRN-CRNA DENTAL VISIT Intraoperative Events: No acute event ASA: ASA status not filed in the log. EBL: Not documented Urine Not documented Lactated Ringers and NaCl 0.9%: Fluid Totals (Filter: LR and NaCl 0.9% Medications Shown) Medication Calculated Total Lactated Ringers 30 mL / 1 bag Cell Saver: Not documented Blood Volume Values: Blood Products None MTP Blood: MTP PRBC: Not documented MTP FFP: Not documented MTP PLT: Not documented MTP Cryo: Not documented MTP Whole Blood: Not documented Current Vasoactive Medications: {Vasoactive Medications: None Lines, Drains, Airways Airway Adjunct: Nasal Cannula (Active) Airway Insertion Details * No LDAs found * All non-working IVs have been removed: Yes Laboratory Data: CBC (last 3 years, up to 8 values) No lab values to display. BMP (last 3 years, up to 8 values) No lab values to display. Basic Metabolic Panel No lab values to display. No results found for: INR No result for BNP LFT's (last 3 years, up to 8 values) No lab values to display. Arterial Blood Gases None Hand off Completed: Yes 1. The patient was identified. 2. Pertinent medical history was relayed. 3. A brief discussion was had about any pertinent surgical/ procedural issues. 4. Intraoperative/ anesthetic management issue and concerns were discussed. 5. Plans for the early post-operative period relayed. 6. An opportunity for questions and acknowledgment of understanding of the report was received. MAXIMO Soliz documented in this encounter [facility] 12-15-2023 Procedure anesthe fritz Narrative Procedure Name Responsible Anesthesiologist Anesthesia Start Time Anesthesia Stop Time DENTAL VISIT Orquidea Florez MD 12/15/23 0832 4 0925 Events Date Time Event Comment 12/15/2023 0810 0832 An Start Data 0832 An Start 0833 Preinduction Verify The anes thesia team has reviewed the patient's vital signs immediately prior to induction. MAXIMO Soliz 0833 Procedure Timeout Confirm th e correct patient identity: Yes Confirm the correct procedure: Yes Confirm the correct procedural site: Yes Confirm signed informed consent: Yes Confirm prophylactic antibiotic administration (if applicable): N/A Discuss fire risk mitigation (if applicable): Yes Anesthesia Staff MAXIMO Soliz Proceduralist Altagracia Additional Staff 0834 An Induction 0843 Anesthesia Release 0920 an stop data 0924 Handoff I completed my SBAR handoff to the receiving nurse in the receiving unit. 09 AN Stop Meds Name Total glycopyrrolate (ROBINUL) injection 0.2 m g/mL 0.1 mg Midazolam 1 mg/mL 5 mg Dexmedetomidine injection 100 mcg/mL 56 mcg Ketorolac 30 mg/mL 15 mg Lactated Ringers 30 mL * Agents Name N2O O2 Flow Rate (l/min) * Blood No blood administrations on file. Lines, Drains, and Airways Type Details Placement Removal Surgical Wound 06/09/12 06/09/12 0000 by Carola Hansen RN Surgical Wound 09/15/18; 1148; Incision; N/A; Mouth 09/15/18 1148 by Mayte Poole RN Wound 07/14/20; 1023; Bilateral; Other (Comment); Surgical - Incision 07/14/20 1023 by Felix Oro, VISHNU Airway Adjunct 12/15/23; 0833; Nasa l Cannula; 12/15/23; 0920 12/15/23 0833 by Domingo Carrion APRN-CRNA 12/15/23 0920 by Domingo Carrion APRN-CRNA documented in this encounter [id number] Note* Addendum Note - Domingo Carrion APRN-CRNA - 12/15/2023 10:26 AM EDT Addendum created 12/15/23 1026 by Domingo Carrion APRN-CRNA Flowsheet accepted, LDA properties accepted [facility] [facility] Work Phone: 1(682) 980-800510-24-2024 Note* Addendum Note - Domingo Carrion APRN- CRNA - 12/15/2023 10:26 AM EDT Addendum created 12/15/23 1026 by Domingo Carrion APRN-CRNA Flowsheet accepted, LDA properties accepted [employer] [facility] Work Phone: 1(242) 593-777610-24-2024 Miscellaneous Notes* Addendum Note - Domingo Carrion APRN-CRNA - 12/15/2023 10:26 AM EDT Addendum created 12/15/23 1026 by Domingo Carrion APRN-CRNA Flowsheet accepted, LDA properties accepted * Anesthesia Transfer Of Care - Domingo Carrion APRN-CRNA - 12/15/2023 9:24 AM EDT Patient recovered by SILK SCREEN PAINTER in room. Patient is awake, comfortable, and stable. 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] Attention deficit hyperactivity disorder (ADHD) [F90.9] Unspecified dental caries [K02.9] Chronic periodontitis, unspecified [K05.30] Unconfirmed [Z32.00] Dental decay [K02.9] Caries [K02.9] Past Surgical History: Review of patient's past surgical history indicates: DENTAL RESTORATIONS (12/28/2013) Procedure: DENTAL RESTORATIONS; Surgeon: Lynda Haque DDS; Location: [facility]; Service: Dental DENTAL RESTORATIONS (09/03/2016) Procedure: DENTAL RESTORATIONS; Surgeon: Bhavin Valdovinos DDS; Location: [facility] [place]; Service: Dental CHOLECYSTECTOMY (2009) Per OSH H+P 08/2018 DENTAL RESTORATIONS (09/15/2018) Procedure: DENTAL RESTORATIONS; Surgeon: Og Mahoney DDS; Location: [facility] [place]; Service: Dental DENTAL RESTORATIONS (07/14/2020) Procedure: DENTAL RESTORATIONS; Surgeon: Og Mahoney DDS; Location: [facility] [place]; Service: Dental Allergies: Abilify, Amoxicillin, Depakote [valproic acid], Food, Metyrosine, Moban [molindone], Nubain [nalbuphine], Sympathomimetics, and Vicks 44 cough relief [dextromethorphan hbr] Basic Operating Room Facts: * No surgeons listed * Anesthesiologist: Orquidea Florez MD SILK SCREEN PAINTER: Domingo Carrion APRN-RAVINDRA DENTAL VISIT Intraoperative Events: No acute event ASA: ASA status not filed in the log. EBL: Not documented Urine Not documented Lactated Ringers and NaCl 0.9%: Fluid Totals (Filter: LR and NaCl 0.9% Medications Shown) Medication Calculated Total Lactated Ringers 30 mL / 1 bag Cell Saver: Not documented Blood Volume Values: Blood Products None MTP Blood: MTP PRBC: Not documented MTP FFP: Not documented MTP PLT: Not documented MTP Cryo: Not documented MTP Whole Blood: Not documented Current Vasoactive Medications: {Vasoactive Medications: None Lines, Drains, Airways Airway Adjunct: Nasal Cannula (Active) Airway Insertion Details * No LDAs found * All non-working IVs have been removed: Yes Laboratory Data: CBC (last 3 years, up to 8 values) No lab values to display. BMP (last 3 years, up to 8 values) No lab values to display. Basic Metabolic Panel No lab values to display. No results found for: INR No result for BNP LFT's (last 3 years, up to 8 values) No lab values to display. Arterial Blood Gases None Hand off Completed: Yes 1. The patient was identified. 2. Pertinent medical history was relayed. 3. A brief discussion was had about any pertinent surgical/ procedural issues. 4. Intraoperative/ anesthetic management issue and concerns were discussed. 5. Plans for the early post-operative period relayed. 6. An opportunity for questions and acknowledgment of understanding of the report was received. MAXIMO Soliz documented in this [id number] Anesthesiology Postoperative evaluation and management note* Anesthesia Postprocedure Evaluation - Orquidea Florez MD - 12/15/2023 9:26 AM EDT Anesthesia Postoperative Assessment: Vital Signs (most recent): There were no vitals taken for this visit. Anesthesia Post Evaluation Level of consciousness: awake Post-procedure exam normal. Body temperature, hydration status, PONV and pain evaluated and addressed. Pain management: adequate Hydration status: normal PONV:No nausea/vomiting reported Cardiopulmonary status stable Respiratory status: acceptable Cardiovascular status: acceptable Comments: The patient has fully recovered, meets discharge criteria, and has been under anesthesia care until point of discharge home. ANESTHESIA NOTABLE EVENTS: No notable events documented. [facility] Work Phone: [phone] 209-199010-24-2024 Surgical operation note* Anesthesia Postprocedure Evaluation - Orquidea Florez MD - 12/15/2023 9:26 AM EDT Anesthesia Postoperative Assessment: Vital Signs (most recent): There were no vitals taken for this visit. Anesthesia Post Evaluation Level of consciousness: awake Post-procedure exam normal. Body temperature, hydration status, PONV and pain evaluated and addressed. Pain management: adequate Hydration status: normal PONV:No nausea/vomiting reported Cardiopulmonary status stable Respiratory status: acceptable Cardiovascular status: acceptable Comments: The patient has fully recovered, meets discharge criteria, and has been under anesthesia care until point of discharge home. ANESTHESIA NOTABLE EVENTS: No notable events documented. 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 Questions answered. Risks, benefits, and alternatives of anesthesia discussed with patient. Patient agrees to proceed with planned surgery. Patient consented to history and physical in presence of visitors. Advised patient that s/he should make no major decisions, no driving, and no exertion today postoperatively. Advised patient that due to sedation anesthesia, s/he may have awareness during procedure. Physical Exam Airway Mallampati: III TM distance: Adequate Micrognathia: Not present Jaw opening: Adequate Neck flexion: Adequate Dental PE (+) chipped teeth Pulmonary - pulmonary exam normal Cardiovascular - cardiovascular exam normal Neuro - neurological exam normal Plan Anesthesia plan: MAC; (NC) Anesthesia risks / alternatives discussed pre-op Questions answered / anesthesia plan accepted Past medical history, surgical history, allergies, and medications reviewed. Pertinent laboratory tests, EKG, imaging, and consults reviewed and I have personally seen and evaluated the patient, repeating brown portions of the history and physical examination. Attestation: Anesthesia options were discussed with the patient and/or legal account executive sales representative. The risks, benefitsand alternatives were reviewed. Questions regarding anesthesia were answered. Patient and/or legal account executive sales representative knows such anesthetics and procedures may be performed by Resident physicians, Certified Anesthesiologist Assistants, or Certified Nurse Anesthetists under the supervision of a physician. The patient /or the patient s legal account executive sales representative agree with the plan for anesthesia. MHPATFORM documented in this [id number] Surgical operation note* Anesthesia Postprocedure Evaluation - Orquidea Florez MD - 12/15/2023 9:26 AM EDT Anesthesia Postoperative Assessment: Vital Signs (most recent): There were no vitals taken for this visit. Anesthesia Post Evaluation Level of consciousness: awake Post-procedure exam normal. Body temperature, hydration status, PONV and pain evaluated and addressed. Pain management: adequate Hydration status: normal PONV:No nausea/vomiting reported Cardiopulmonary status stable Respiratory status: acceptable Cardiovascular status: acceptable Comments: The patient has fully recovered, meets discharge criteria, and has been under anesthesia care until point of discharge home. ANESTHESIA NOTABLE EVENTS: No notable events documented. 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 Questions answered. Risks, benefits, and alternatives of anesthesia discussed with patient. Patient agrees to proceed with planned surgery. Patient consented to history and physical in presence of visitors. Advised patient that s/he should make no major decisions, no driving, and no exertion today postoperatively. Advised patient that due to sedation anesthesia, s/he may have awareness during procedure. Physical Exam Airway Mallampati: III TM distance: Adequate Micrognathia: Not present Jaw opening: Adequate Neck flexion: Adequate Dental PE (+) chipped teeth Pulmonary - pulmonary exam normal Cardiovascular - cardiovascular exam normal Neuro - neurological exam normal Plan Anesthesia plan: MAC; (NC) Anesthesia risks / alternatives discussed pre-op Questions answered / anesthesia plan accepted Past medical history, surgical history, allergies, and medications reviewed. Pertinent laboratory tests, EKG, imaging, and consults reviewed and I have personally seen and evaluated the patient, repeating brown portions of the history and physical examination. Attestation: Anesthesia options were discussed with the patient and/or legal account executive sales representative. The risks, benefitsand alternatives were reviewed. Questions regarding anesthesia were answered. Patient and/or legal account executive sales representative knows such anesthetics and procedures may be performed by Resident physicians, Certified Anesthesiologist Assistants, or Certified Nurse Anesthetists under the supervision of a physician. The patient /or the patient s legal account executive sales representative agree with the plan for anesthesia. MHPATFORM documented in this [id number] Surgical operation note* Anesthesia Postprocedure Evaluation - Orquidea Florez MD - 12/15/2023 9:26 AM EDT Anesthesia Postoperative Assessment: Vital Signs (most recent): There were no vitals taken for this visit. Anesthesia Post Evaluation Level of consciousness: awake Post-procedure exam normal. Body temperature, hydration status, PONV and pain evaluated and addressed. Pain management: adequate Hydration status: normal PONV:No nausea/vomiting reported Cardiopulmonary status stable Respiratory status: acceptable Cardiovascular status: acceptable Comments: The patient has fully recovered, meets discharge criteria, and has been under anesthesia care until point of discharge home. ANESTHESIA NOTABLE EVENTS: No notable events documented. 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 Questions answered. Risks, benefits, and alternatives of anesthesia discussed with patient. Patient agrees to proceed with planned surgery. Patient consented to history and physical in presence of visitors. Advised patient that s/he should make no major decisions, no driving, and no exertion today postoperatively. Advised patient that due to sedation anesthesia, s/he may have awareness during procedure. Physical Exam Airway Mallampati: III TM distance: Not Adequate Micrognathia: Not present Jaw opening: Adequate Neck flexion: Adequate Dental PE (+) chipped teeth Pulmonary - pulmonary exam normal Cardiovascular - cardiovascular exam normal Neuro - neurological exam normal Plan Anesthesia plan: MAC; (NC) Anesthesia risks / alternatives discussed pre-op Questions answered / anesthesia plan accepted Past medical history, surgical history, allergies, and medications reviewed. Pertinent laboratory tests, EKG, imaging, and consults reviewed and I have personally seen and evaluated the patient, repeating brown portions of the history and physical examination. Attestation: Anesthesia options were discussed with the patient and/or legal account executive sales representative. The risks, benefitsand alternatives were reviewed. Questions regarding anesthesia were answered. Patient and/or legal account executive sales representative knows such anesthetics and procedures may be performed by Resident physicians, Certified Anesthesiologist Assistants, or Certified Nurse Anesthetists under the supervision of a physician. The patient /or the patient s legal account executive sales representative agree with the plan for anesthesia. MHPATFORM documented in this [id number] Anesthesiology Postoperative evaluation and management note* Anesthesia Transfer Of Care - Domingo Carrion APRN- RAVINDRA - 12/15/2023 9:24 AM EDT Patient recovered by SILK SCREEN PAINTER in room. Patient is awake, comfortable, and stable. 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] Attention deficit hyperactivity disorder (ADHD) [F90.9] Unspecified dental caries [K02.9] Chronic periodontitis, unspecified [K05.30] Unconfirmed [Z32.00] Dental decay [K02.9] Caries [K02.9] Past Surgical History: Review of patient's past surgical history indicates: DENTAL RESTORATIONS (12/28/2013) Procedure: DENTAL RESTORATIONS; Surgeon: Lynda Haque DDS; Location: [facility]; Service: Dental DENTAL RESTORATIONS (09/03/2016) Procedure: DENTAL RESTORATIONS; Surgeon: Bhavin Valdovinos DDS; Location: [facility]; Service: Dental CHOLECYSTECTOMY (2009) Per OSH H+P 08/2018 DENTAL RESTORATIONS (09/15/2018) Procedure: DENTAL RESTORATIONS; Surgeon: Og Mahoney DDS; Location: [facility] [place]; Service: Dental DENTAL RESTORATIONS (07/14/2020) Procedure: DENTAL RESTORATIONS; Surgeon: Og Mahoney DDS; Location: [facility] [place]; Service: Dental Allergies: Abilify, Amoxicillin, Depakote [valproic acid], Food, Metyrosine, Moban [molindone], Nubain [nalbuphine], Sympathomimetics, and Vicks 44 cough relief [dextromethorphan hbr] Basic Operating Room Facts: * No surgeons listed * Anesthesiologist: Orquidea Florez MD SILK SCREEN PAINTER: Domingo Carrion APRN-RAVINDRA DENTAL VISIT Intraoperative Events: No acute event ASA: ASA status not filed in the log. EBL: Not documented Urine Not documented Lactated Ringers and NaCl 0.9%: Fluid Totals (Filter: LR and NaCl 0.9% Medications Shown) Medication Calculated Total Lactated Ringers 30 mL / 1 bag Cell Saver: Not documented Blood Volume Values: Blood Products None MTP Blood: MTP PRBC: Not documented MTP FFP: Not documented MTP PLT: Not documented MTP Cryo: Not documented MTP Whole Blood: Not documented Current Vasoactive Medications: {Vasoactive Medications: None Lines, Drains, Airways Airway Adjunct: Nasal Cannula (Active) Airway Insertion Details * No LDAs found * All non-working IVs have been removed: Yes Laboratory Data: CBC (last 3 years, up to 8 values) No lab values to display. BMP (last 3 years, up to 8 values) No lab values to display. Basic Metabolic Panel No lab values to display. No results found for: INR No result for BNP LFT's (last 3 years, up to 8 values) No lab values to display. Arterial Blood Gases None Hand off Completed: Yes 1. The patient was identified. 2. Pertinent medical history was relayed. 3. A brief discussion was had about any pertinent surgical/ procedural issues. 4. Intraoperative/ anesthetic management issue and concerns were discussed. 5. Plans for the early post-operative period relayed. 6. An opportunity for questions and acknowledgment of understanding of the report was received. MAXIMO Soliz [employer] Work Phone: [phone]) 467-837310-24-2024 Miscellaneous Notes* Anesthesia Transfer Of Care - Domingo Carrion APRN-CRNA - 12/15/2023 9:24 AM EDT Patient recovered by SILK SCREEN PAINTER in room. Patient is awake, comfortable, and stable. 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] Attention deficit hyperactivity disorder (ADHD) [F90.9] Unspecified dental caries [K02.9] Chronic periodontitis, unspecified [K05.30] Unconfirmed [Z32.00] Dental decay [K02.9] Caries [K02.9] Past Surgical History: Review of patient's past surgical history indicates: DENTAL RESTORATIONS (12/28/2013) Procedure: DENTAL RESTORATIONS; Surgeon: Lynda Haque DDS; Location: [facility]; Service: Dental DENTAL RESTORATIONS (09/03/2016) Procedure: DENTAL RESTORATIONS; Surgeon: Bhavin Valdovinos DDS; Location: [facility] [place]; Service: Dental CHOLECYSTECTOMY (2009) Per OSH H+P 08/2018 DENTAL RESTORATIONS (09/15/2018) Procedure: DENTAL RESTORATIONS; Surgeon: Og Mahoney DDS; Location: [facility] [place]; Service: Dental DENTAL RESTORATIONS (07/14/2020) Procedure: DENTAL RESTORATIONS; Surgeon: Og Mahoney DDS; Location: [facility] [place]; Service: Dental Allergies: Abilify, Amoxicillin, Depakote [valproic acid], Food, Metyrosine, Moban [molindone], Nubain [nalbuphine], Sympathomimetics, and Vicks 44 cough relief [dextromethorphan hbr] Basic Operating Room Facts: * No surgeons listed * Anesthesiologist: Orquidea Florez MD SILK SCREEN PAINTER: Domingo Carrion APRN-RAVINDRA DENTAL VISIT Intraoperative Events: No acute event ASA: ASA status not filed in the log. EBL: Not documented Urine Not documented Lactated Ringers and NaCl 0.9%: Fluid Totals (Filter: LR and NaCl 0.9% Medications Shown) Medication Calculated Total Lactated Ringers 30 mL / 1 bag Cell Saver: Not documented Blood Volume Values: Blood Products None MTP Blood: MTP PRBC: Not documented MTP FFP: Not documented MTP PLT: Not documented MTP Cryo: Not documented MTP Whole Blood: Not documented Current Vasoactive Medications: {Vasoactive Medications: None Lines, Drains, Airways Airway Adjunct: Nasal Cannula (Active) Airway Insertion Details * No LDAs found * All non-working IVs have been removed: Yes Laboratory Data: CBC (last 3 years, up to 8 values) No lab values to display. BMP (last 3 years, up to 8 values) No lab values to display. Basic Metabolic Panel No lab values to display. No results found for: INR No result for BNP LFT's (last 3 years, up to 8 values) No lab values to display. Arterial Blood Gases None Hand off Completed: Yes 1. The patient was identified. 2. Pertinent medical history was relayed. 3. A brief discussion was had about any pertinent surgical/ procedural issues. 4. Intraoperative/ anesthetic management issue and concerns were discussed. 5. Plans for the early post-operative period relayed. 6. An opportunity for questions and acknowledgment of understanding of the report was received. MAXIMO Soliz documented in this [id number] History of Present illness Narrative* Marleni Alejandro DDS - 12/15/2023 8:53 AM EDT ----- November at 9:52:24 AM ----- ----- Provider: Resident Eric -- Clinic: [facility] ----- PT WAS SEEN IN [facility] UNDER TWILIGHT SEDATION WITH ANESTHESIA TEAM Anesthesia diagnosis: ADHD- F909, and Moderate intellectual disabilities- F71 Dental diagnosis: Dental Caries, unspecified - K02.9 and Retained Dental Root- K08.3 PERIODIC EXAMINATION Reviewed patient's medical history. Patient has a history of: ADHD, seizure disorder, bipolar disorder, moderate intellectual disabilities No contraindications, patient is ready for treatment. Patient's chief complaint: Periodic Exam Pain Scale: 0/10 Radiographs taken today were: 4 BWs and 1 PA Clinical Examination reveals: Decay teeth # 7,23,24,25,26,27 Missing teeth # 7 non restorable Soft tissue evaluation: Within Normal Limits Completed current status of dentition on the charting. COMPOSITE JEWISH Patient is scheduled for Rastafari on tooth #26 surface B5. Topical Benzocaine gel applied at theinjection site for 2 minutes. Administered 0.5 carpules of Lidocaine, 2% with Epinephrine 1:100,000,. Isolation achieved. Decay/existing rastafarian removed, cavity prepared. Selectively etched enamel with 37% phosphoric acid, rinsed, and blot dried. OptiBond bowles applied and light-cured. Condensed packable composite shade A2 in light cured increments. Finished with finishing burs, checked occlusion, verified proximal contacts and rastafarian was polished. SIMPLE EXTRACTION tooth # 7 Radiograph used for surgical planning and direction is correctly matched to the patient. Correct surgical site and/or involved teeth have been physically verified by the patient and the surgeon immediately before starting the procedure. Blood Pressure: 126/72 Pulse:79 Consent for treatment was signed by the patient. Benzocaine topical applied in injection area for 2-3 minutes. Anesthesia injected in facial area with prior aspiration to prevent intravascular infiltration. Infiltrative technique performed with 1 carpules Lidocaine, 2% with Epinephrine 1:100,000, 27 gauge long needle used. Extracted tooth/teeth # 7 . Simple extraction performed. Reflected mucoperiosteal cuff around tooth #7, followed by luxation, avulsion and atraumatic delivery with elevator and forceps. Inspected socket, followed by curettage, saline irrigation, and pressure gauze for hemostasis. No complications The patient has been given the following prescriptions: No medications prescribed. Post operative care instructions have been given to the patient and the patient has confirmed that they understand the instructions. Patient was dismissed. Patient tolerated the procedure well. NOTE: Pt already on pain medications Next visit: Restorative under IV sedation [place] ----- Signed on November at 10:18:01 AM ----- ----- Provider: Shelby Frias DMD -- Clinic: [facility] ----- documented in this [id number] Progress note* Blood Attestation - Orquidea Florez MD - 12/15/2023 8:26 AM EDT Blood Attestation: ATTESTATION OF INFORMED CONSENT FOR BLOOD: The transfusion of blood and/or blood components were discussed with the patient and/or legal account executive sales representative. The risks, benefits and alternatives were reviewed. Questions regarding blood transfusions were answered. The patient /or the patient s legal account executive sales representative agree with the plan for transfusion of blood and/or blood components. [facility] Work Phone: [phone] Miscellaneous Notes* Blood Attestation - Orquidea Florez MD - 12/15/2023 8:26 AM EDT Blood Attestation: ATTESTATION OF INFORMED CONSENT FOR BLOOD: The transfusion of blood and/or blood components were discussed with the patient and/or legal account executive sales representative. The risks, benefits and alternatives were reviewed. Questions regarding blood transfusions were answered. The patient /or the patient s legal account executive sales representative agree with the plan for transfusion of blood and/or blood components. 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 Questions answered. Risks, benefits, and alternatives of anesthesia discussed with patient. Patient agrees to proceed with planned surgery. Patient consented to history and physical in presence of visitors. Advised patient that s/he should make no major decisions, no driving, and no exertion today postoperatively. Advised patient that due to sedation anesthesia, s/he may have awareness during procedure. Physical Exam Airway Mallampati: III TM distance: Not Adequate Micrognathia: Not present Jaw opening: Adequate Neck flexion: Adequate Dental PE (+) chipped teeth Pulmonary - pulmonary exam normal Cardiovascular - cardiovascular exam normal Neuro - neurological exam normal Plan Anesthesia plan: MAC; (NC) Anesthesia risks / alternatives discussed pre-op Questions answered / anesthesia plan accepted Past medical history, surgical history, allergies, and medications reviewed. Pertinent laboratory tests, EKG, imaging, and consults reviewed and I have personally seen and evaluated the patient, repeating brown portions of the history and physical examination. Attestation: Anesthesia options were discussed with the patient and/or legal account executive sales representative. The risks, benefitsand alternatives were reviewed. Questions regarding anesthesia were answered. Patient and/or legal account executive sales representative knows such anesthetics and procedures may be performed by Resident physicians, Certified Anesthesiologist Assistants, or Certified Nurse Anesthetists under the supervision of a physician. The patient /or the patient s legal account executive sales representative agree with the plan for anesthesia. MHP[employer]FORM [id number] History of Present illness Narrative* YESIKA Mac - 12/09/2023 12:40 PM EDT Images from the original note were not included. Rash Location: face Duration: unsure Severity: moderate Quality: itchy painful Modifying Factors: none Associated symptoms: redness, bumps Treatments tried: Clindamycin 300 mg BID x 7 days, Bactroban ointment BID x 5 days, Carmex TID x 10days Current treatments: OTC hydrocortisone BID, stable but not healed New patient All pertinent medical history, medications, and allergies were reviewed. General Exam: alert, oriented to person, place, and time, normal affect, well appearing Accompanied by caregiver A focused exam completed based on patient reported problems, see below: 1. Lip licking dermatitis Left Lower Cutaneous Lip, Mid Lower Cutaneous Lip, Right Lower Cutaneous Lip Erythematous papules Start Protopic 0.1 % use up to twice a day. Notify office if worsening. Related Medications tacrolimus (Protopic) 0.1 % ointment Apply to affected areas bid prn when flared Next Visit: prn for any new/changing lesions documented in this encounterRanken Jordan Pediatric Specialty [id number] Telephone encounter Note* Telephone Encounter - Idania Campbell RN - 11/23/2023 2:56 PM EDT Anesthesia consent obtained and scanned into [facility]. Scheduled for surgery 12/15/2023. [id number] Miscellaneous Notes* Telephone Encounter - Idania Campbell RN - 11/23/2023 2:56 PM EDT Anesthesia consent obtained and scanned into [facility]. Scheduled for surgery 12/15/2023. documented in this [id number] NoteDo not eat or drink anything after midnight the night prior to your procedure. On the morning of your procedure, take only the following medications with a small sip of water if needed: -Continue taking all medications as prescribed. Avoid taking medications, supplements or multivitamins not listed above the day of your surgery without consulting with your physician first. READ THE FOLLOWING BOLDED LINES CAREFULLY, THEY ARE TEMPORARY CHANGES TO YOUR MEDICATIONS: Do not take aspirin for 7 days prior to your procedure; this medication increases your risk of bleeding during the procedure. Do not take NSAIDs (e.g., Ibuprofen, Motrin, Aleve) for at least 3 days prior to your procedure; these medications increase your risk of bleeding during the procedure. You may take acetaminophen (Tylenol) for pain as needed. Contact the Pre Admission Testing (PAT) department at [phone], or your surgeon's office, with any additional questions.[facility]09-18-2024 History of Present illness Narrative* Bhanu Ramirez DPM FACFAS - 11/09/2023 9:00 AM EDT Images from the original note were not included. patient: Migdalia Connelly : 1985 PCP: Lio Muñoz MD SUBJECTIVE This is a 38 y.o. female that presents today with a chief complaint of painful elongated nails digits 1 through 10. They cause marked limitation in ambulation due to pain and pressure from shoe gear. Allergies: Allergies Allergen Reactions Amoxicillin Unknown Aripiprazole Unknown Chlorpheniramine Unknown Dextromethorphan Hbr Food Peterson Slaw Metyrosine Unknown Molindone Unknown Nalbuphine Unknown Sympathomimetics Valproic Acid Unknown Per OSH H+P 08/2018 Past Medical History: Past Medical History: Diagnosis Date ADHD (attention deficit hyperactivity disorder) ([facility]) Alteration of consciousness Anger reaction Astigmatism Bipolar disorder ([facility]) Convulsions ([facility]) Developmental delay GERD (gastroesophageal reflux disease) Hypercholesterolemia ([facility]) Hyperopia Hypertension ([facility]) Impulse control disorder ([facility]) Intellectual disability ([facility]) Mental disorder Mental retardation, mild Mood disorder ([facility]) OCD (obsessive compulsive disorder) ([facility]) Osteopenia PTSD (post-traumatic stress disorder) ([facility]) Seizures ([facility]) Medications: Current Outpatient Medications: acetaminophen (Tylenol) 325 MG tablet, TAKE TWO TABLETS BY MOUTH TWICE A DAY NEEDED FOR TEMP OR GENERAL DISCOMFORT, Disp: , Rfl: atomoxetine (Strattera) 40 MG capsule, , Disp: , Rfl: atomoxetine (Strattera) 60 MG capsule, 1 (one) time each day at the same time, Disp: , Rfl: Aviane 0.1-20 MG-MCG tablet, Take 1 tablet by mouth Daily, Disp: , Rfl: Calcium Polycarbophil (fiber) 625 MG tablet, every 8 (eight) hours, Disp: , Rfl: Calcium+D3 600-20 MG-MCG tablet, Take 1 tablet by mouth in the morning and 1 tablet before bedtime., Disp: , Rfl: carBAMazepine XR (TEGretol XR) 200 MG 12 hr tablet, Take 200 mg by mouth in the morning and 200 mg in the evening and 200 mg before bedtime., Disp: , Rfl: cloNIDine (Catapres) 0.2 MG tablet, 1 (one) time each day at the same time, Disp: , Rfl: dicyclomine (Bentyl) 20 MG tablet, every 12 (twelve) hours, Disp: , Rfl: Docusate Sodium (DSS) 100 MG capsule, 1 (one) time each day at the same time, Disp: , Rfl: fenofibrate micronized (Lofibra) 134 MG capsule, 1 (one) time each day at the same time, Disp: , Rfl: fluticasone (Flonase) 50 MCG/ACT nasal spray, INHALE 2 SPRAYS INTO EACH NOSTRIL ONCE DAILY NEEDED, Disp: , Rfl: guanFACINE (Tenex) 2 MG tablet, 1 (one) time each day at the same time, Disp: , Rfl: lamoTRIgine (LaMICtal) 100 MG tablet, 1 (one) time each day at the same time, Disp: , Rfl: lamoTRIgine (LaMICtal) 150 MG tablet, Take 300 mg by mouth at bedtime, Disp: , Rfl: lamoTRIgine (LaMICtal) 200 MG tablet, Take 1 tablet by mouth Daily, Disp: , Rfl: loratadine (Claritin) 10 MG tablet, 1 (one) time each day at the same time, Disp: , Rfl: metoprolol tartrate (Lopressor) 100 MG tablet, every 12 (twelve) hours, Disp: , Rfl: montelukast (Singulair) 10 MG tablet, 1 (one) time each day at the same time, Disp: , Rfl: OLANZapine (ZyPREXA) 10 MG tablet, , Disp: , Rfl: OLANZapine (ZyPREXA) 20 MG tablet, 1 (one) time each day at the same time, Disp: , Rfl: omeprazole (PriLOSEC) [address] capsule, 1 (one) time each day at the same time, Disp: , Rfl: paliperidone (Invega) 6 MG 24 hr tablet, 1 tablet in the morning and 1 tablet before bedtime., Disp: , Rfl: sennosides (Senokot) 8.6 MG tablet, Twice daily, Disp: , Rfl: Review of systems: Constitutional: Denies fever, chills, nausea, vomiting GI: Denies abdominal pain, cramping, loose stool, gastric ulcers Musculoskeletal: Denies low back pain, knee pain, systemic arthritis Neurologic: Denies burning, tingling, transient paralysis OBJECTIVE Physical Examination: DERM: Positive hair growth to b/l feet with good skin turgor noted. Negative openings in skin. No macerations noted interdigitally. Web spaces were clean and dry. No ulcerations were noted. Nails 1 through 10 were thickened elongated yellow and crumbly with subungual debris. They were painful to palpation [phone] on the right [id number] on the left. VASC: DP /PT were nonpalpable bilateral. Capillary refill time < 3 seconds Digits 1-5 bilateral NEURO: [place] 5.07 monofilament was intact B/L. Vibratory sensation was intact B/L Musculoskeletal: Muscle strength was +5 over 5 all intrinsic and extrinsic muscles tested. Radiographs: AP/MO/LAT: Diagnostic ultrasound: ASSESSMENT 1. Onychomycosis 2. Pain in right toe(s) 3. Pain in left toe(s) PLAN The patient was educated on proper foot care as well as the etiology of onychomycosis. I educated the patient on proper shoe gear as well. Today the nails were debrided both in length and thickness 1through 10. Bhanu Ramirez DPM FACBART documented in this encounterRanken Jordan Pediatric Specialty [id number] History of Present illness Narrative* Case Melchor MD - 10/27/2023 9:30 AM EDT Images from the original note were not included. Date of Service: 10/24/23 PCP:Dr. Lio Muñoz History of Present Illness Migdalia Connelly is a 38 y.o. female, who is following with us for hyponatremia returning for nephrologicfollow-up. When seen in June of 2023 the sodium was 135 BUN 9 creatinine 0.48. She is on multiple medications that have been associated with hyponatremia which include Strattera,Tegretol, Zyprexa, Lamictal, and Invega. Laboratories of 10/26/2023 show a urine sodium of 31 sodium was 132 potassium 4.1 chloride 96 totalCO2 24.2 BUN 9 creatinine 0.6 cortisol 16.6 mcg/dL urinalysis was unremarkable. Plasma osmolality was 272 milliosmoles per kg. Unfortunately the urine osmolality was not performed. Migdalia does drink a variety of liquid beverages avidly. The caregiver who accompanied her to the clinic today confirms that it would be very difficult to restrict her intake of liquids. Problem List Attention deficit hyperactivity disorder Moderate intellectual disabilities Chronic periodontitis Verruca plantaris 5. Painful lesion plantar aspect of the foot Surgical, Family & Social History Social History: Social History Socioeconomic History Marital status: Single Spouse name: Not on file Number of children: Not on file Years of education: Not on file Highest education level: Not on file Occupational History Not on file Tobacco Use Smoking status: Not on file Smokeless tobacco: Not on file Substance and Sexual Activity Alcohol use: Not on file Drug use: Not on file Sexual activity: Not on file Other Topics Concern Not on file Social History Narrative Not on file Social Determinants of Health Financial Resource Strain: Not on file Food Insecurity: Not on file Transportation Needs: Not on file Physical Activity: Not on file Stress: Not on file Social Connections: Not on file Interpersonal Safety: Not on file Housing Instability: Not on file Family History: No family history on file. Allergies & Medications Allergies: Allergies Allergen Reactions Abilify [Aripiprazole] Amoxicillin Metyrosine Moban [Molindone] Nubain [Nalbuphine] Current Meds: Current Outpatient Medications Medication Sig Dispense Refill acetaminophen (TYLENOL) 325 mg tablet Take 1 tablet (325 mg total) by mouth every 4 (four) hours asneeded. atomoxetine (STRATTERA) 40 mg capsule Take 1 capsule (40 mg total) by mouth in the morning. atomoxetine (STRATTERA) 60 mg capsule Take 1 capsule (60 mg total) by mouth in the morning. mORNING. calcium carbonate-vitamin D3 600 mg(1,500mg) -800 units tablet Take 1 tablet by mouth in the morning and 1 tablet before bedtime. carBAMazepine XR (TEGretol XR) 400 mg 12 hr tablet Take 200 mg by mouth 3 (three) times a day. cloNIDine (CATAPRES) 0.2 mg tablet Take 1 tablet (0.2 mg total) by mouth 3 (three) times a day. dicyclomine (BENTYL) 20 mg tablet Take 1 tablet (20 mg total) by mouth every 6 (six) hours. docusate sodium (COLACE) 100 mg capsule Take 1 capsule (100 mg total) by mouth in the morning and 1capsule (100 mg total) before bedtime. fenofibrate micronized (LOFIBRA) 134 mg capsule Take 1 capsule (134 mg total) by mouth every morning before breakfast. FIBER-LAX 625 mg tablet Take 1 tablet (625 mg total) by mouth in the morning. fluticasone propionate (FLONASE) 50 mcg/actuation nasal spray Administer 1 spray into each nostril in the morning. guanFACINE (TENEX) 2 mg tablet Take 1 tablet (2 mg total) by mouth nightly. ibuprofen (ADVIL,MOTRIN) 200 mg tablet Take 1 tablet (200 mg total) by mouth every 6 (six) hours asneeded. lamoTRIgine (LaMICtal) 100 mg tablet Take 1 tablet (100 mg total) by mouth in the morning. lamoTRIgine (LaMICtal) 150 mg tablet Take 1 tablet (150 mg total) by mouth in the morning. lamoTRIgine (LaMICtal) 200 mg tablet Take 0.5 tablets (100 mg total) by mouth in the morning. levonorgestreL-ethinyl estrad (AVIANE,ALESSE,LESSINA) 0.1-20 mg-mcg per tablet Take 1 tablet by mouth in the morning. loperamide (IMODIUM A-D) 2 mg tablet Take 1 tablet (2 mg total) by mouth 3 (three) times a day as needed. loratadine (CLARITIN) 10 mg tablet Take 1 tablet (10 mg total) by mouth in the morning. metoprolol tartrate (LOPRESSOR) 100 mg tablet Take 1 tablet (100 mg total) by mouth in the morning and 1 tablet (100 mg total) before bedtime. montelukast (SINGULAIR) 10 mg tablet Take 1 tablet (10 mg total) by mouth nightly. OLANZapine (ZyPREXA) 20 mg tablet Take 1 tablet (20 mg total) by mouth nightly. Total 30mg omeprazole (PriLOSEC) 20 mg capsule Take 1 capsule (20 mg total) by mouth every morning before breakfast. paliperidone (INVEGA) 6 mg 24 hr tablet Take 1 tablet (6 mg total) by mouth every morning. No current facility-administered medications for this visit. Review of Systems Review of Systems Physical Exam Vital Signs: There were no vitals filed for this visit. BMI: There is no height or weight on file to calculate BMI. General appearance: alert in no apparent distress. Psychiatric: Oriented to place, time and person HEENT: atraumatic, supple, moist oral mucosa, no JVD Cardiovascular: normal S1-S2 Respiratory: No respiratory distress with no use of accessory muscles. Clear to auscultation bilaterally with no wheezes or crackles Abdomen: soft, no tenderness, no guarding, positive bowel sounds and no hepato or splenomegaly Vascular: adequate pulses and no carotid bruits. Musculoskeletal: no joint swelling or tenderness. Neurologic: No focal deficit in upper or lower extremities Lymphatic: no cervical or axillary lymphadenopathy. Edema: Laboratory Studies Chemistry: No results found for: SODIUM , K , CL , CO2 , ANIONGAP , BUN , CREATININE , EGFR , CALCIUM , MG , PHOSPHORUS , IONIZEDCALC No results found for: TOTALPROTEI , ALBUMIN , AST , ALT , BILIRUBIN , ALKPHOS Hematology: No results found for: WBC , HGB , HCT , PLT Anemia Studies: No results found for: IRONSAT , FERRITIN , [id number] , FOLATE Mineral and Bone Labs: No results found for: CALCIUM , PHOSPHORUS , VITD25 , PTH Urine Studies: No results found for: COLOR , TURBIDITY , SPECIFICGRA , NITRITE , PHURINE , LEUKOCYTE , PROTEIN , KETONES , UROBILINOGEN , BLOODHGB No results found for: UPROCRTRAT , MICROALBUR , MICRAU Immunology Profile No results found for: PROTELECTR , SEDRATE , CRP , RF , ANASCREEN , ANTIDSDNA , C3 , C4 , ANCA , MYELOP , PROTEINASE3 , ANTIGLOMERU No results found for: HAV , HEPAIGM , HEPBIGM , HEPBCAB , HBEAG , HEPCAB Imaging Echocardiogram: No results found. IMPRESSION 1. Hyponatremia: Secondary to the syndrome of inappropriate anti diuresis associated with the use of multiple psychotropic medications. Unfortunately, the laboratory did not obtain data that was ordered. But clinically I believe the diagnosis is secure. PLAN 1. I would not change psychotropic medications on the basis of mild hyponatremia. 2. Ordinarily we would fluid restrict patient is with the syndrome of inappropriate anti diuresis. Due to her behavioral issues, I think it would be very difficult to restrict her access to free water. 3. This level of hyponatremia is likely of little clinical significance. No specific intervention is recommended. She should avoid,of course, water loading or excessive fluid intake. 4. I would monitor her electrolytes once a month or bimonthly and return for nephrologic follow-up if the sodium is routinely less than or equal to 125 mEq per L. Thank you Dr. Muñoz for the opportunity to participate in the care of your patients! Please contact me at [phone] (Office) or [phone] (Answering service) with any questions. CASE MELCHOR MD [facility] This note was created with the assistance of a speech-recognition program. Although the intention is to generate a document that actually reflects the content of the visit, no guarantees can be provided that every mistake has been identified and corrected by editing. documented in this encounter[facility]08-28-[facility] History of Present illness Narrative* Lizandro Veronica DDS - 10/19/2023 10:05 AM EDT ----- Thursday, October 19, 2023 at 11:01:41 AM ----- ----- Provider: [id number] Resident Marco -- Clinic: [facility] ----- LIMITED EXAM Patient presents for Emergency [...] consented to treatment today. Pt here with glove pairer to discuss IV sedation as a quicker [...] sedation. Informed both the patient and the glove pairer. Treatment request for IV sedation will be sent for the patient. Next Visit: IV sedation and appropriate treatment. ----- Signed on Thursday, October 19, 2023 at 1:27:08 PM ----- ----- Provider: [id number] Ed Obrien DDS -- Clinic: [facility] ----- documented in this [id number] Miscellaneous Notes* Telephone Encounter - Cesia Lang - 08/01/2023 3:02 PM EDT [facility] called and requested the last progress note to be faxed to [phone]. Faxed note. documented in this encounterPrem[facility]06-10-2024 Telephone encounter Note* Telephone Encounter - Cesiarocky Lang - 08/01/2023 3:02 PM EDT [facility] called and requested the last progress note to be faxed to [phone]. Faxed note. [facility]06-06-[facility] History of Present illness Narrative* Case Melchor MD - 07/28/2023 2:30 PM EDT Date of Service: 07/28/23 Reason for Referral: Hyponatremia Referring Physician: Damien Jones, APR* History of Present Illness Migdalia Connelly is a 38 y.o. female, who was referred to us for the evaluation of hyponatremia. Laboratories of 07/14/2023 show a sodium of 135 potassium 4.1 chloride 98 total CO2 27 BUN 9 creatinine 0.48 EGFR greater than 60 a urinalysis showed a specific gravity of 1.010 there is negative protein and negative blood on dipstick exam. She is awake and alert. She drinks a lot of water and other beverages constantly. She is a resident at the [facility] full- time. She is reasonably functional. Her most serious behavior is obsessive compulsive disorder. Problem List Attention deficit hyperactivity disorder Moderate intellectual disabilities Chronic periodontitis Verruca plantaris 5.Painful lesion plantar aspect of the foot Surgical, Family & Social History Medical History: History reviewed. No pertinent past medical history. Surgical History: No past surgical history on file. Social History: Social History Socioeconomic History Marital status: Single Spouse name: Not on file Number of children: Not on file Years of education: Not on file Highest education level: Not on file Occupational History Not on file Tobacco Use Smoking status: Not on file Smokeless tobacco: Not on file Substance and Sexual Activity Alcohol use: Not on file Drug use: Not on file Sexual activity: Not on file Other Topics Concern Not on file Social History Narrative Not on file Social Determinants of Health Financial Resource Strain: Not on file Food Insecurity: Not on file Transportation Needs: Not on file Physical Activity: Not on file Stress: Not on file Social Connections: Not on file Interpersonal Safety: Not on file Housing Instability: Not on file Family History: No family history on file. Allergies & Medications Allergies: Allergies Allergen Reactions Abilify [Aripiprazole] Amoxicillin Metyrosine Moban [Molindone] Nubain [Nalbuphine] Current Meds: Current Outpatient Medications Medication Sig Dispense Refill acetaminophen (TYLENOL) 325 mg tablet Take 1 tablet (325 mg total) by mouth every 4 (four) hours asneeded. atomoxetine (STRATTERA) 40 mg capsule Take 1 capsule (40 mg total) by mouth in the morning. atomoxetine (STRATTERA) 60 mg capsule Take 1 capsule (60 mg total) by mouth in the morning. mORNING. calcium carbonate-vitamin D3 600 mg(1,500mg) -800 units tablet Take 1 tablet by mouth in the morning and 1 tablet before bedtime. carBAMazepine XR (TEGretol XR) 400 mg 12 hr tablet Take 200 mg by mouth 3 (three) times a day. cloNIDine (CATAPRES) 0.2 mg tablet Take 1 tablet (0.2 mg total) by mouth 3 (three) times a day. dicyclomine (BENTYL) 20 mg tablet Take 1 tablet (20 mg total) by mouth every 6 (six) hours. docusate sodium (COLACE) 100 mg capsule Take 1 capsule (100 mg total) by mouth in the morning and 1capsule (100 mg total) before bedtime. fenofibrate micronized (LOFIBRA) 134 mg capsule Take 1 capsule (134 mg total) by mouth every morning before breakfast. FIBER-LAX 625 mg tablet Take 1 tablet (625 mg total) by mouth in the morning. fluticasone propionate (FLONASE) 50 mcg/actuation nasal spray Administer 1 spray into each nostril in the morning. guanFACINE (TENEX) 2 mg tablet Take 1 tablet (2 mg total) by mouth nightly. ibuprofen (ADVIL,MOTRIN) 200 mg tablet Take 1 tablet (200 mg total) by mouth every 6 (six) hours asneeded. lamoTRIgine (LaMICtal) 100 mg tablet Take 1 tablet (100 mg total) by mouth in the morning. lamoTRIgine (LaMICtal) 150 mg tablet Take 1 tablet (150 mg total) by mouth in the morning. lamoTRIgine (LaMICtal) 200 mg tablet Take 0.5 tablets (100 mg total) by mouth in the morning. levonorgestreL-ethinyl estrad (AVIANE,ALESSE,LESSINA) 0.1-20 mg-mcg per tablet Take 1 tablet by mouth in the morning. loperamide (IMODIUM A-D) 2 mg tablet Take 1 tablet (2 mg total) by mouth 3 (three) times a day as needed. loratadine (CLARITIN) 10 mg tablet Take 1 tablet (10 mg total) by mouth in the morning. metoprolol tartrate (LOPRESSOR) 100 mg tablet Take 1 tablet (100 mg total) by mouth in the morning and 1 tablet (100 mg total) before bedtime. montelukast (SINGULAIR) 10 mg tablet Take 1 tablet (10 mg total) by mouth nightly. OLANZapine (ZyPREXA) 20 mg tablet Take 1 tablet (20 mg total) by mouth nightly. Total 30mg omeprazole (PriLOSEC) 20 mg capsule Take 1 capsule (20 mg total) by mouth every morning before breakfast. paliperidone (INVEGA) 6 mg 24 hr tablet Take 1 tablet (6 mg total) by mouth every morning. No current facility-administered medications for this visit. Review of Systems Review of Systems Constitutional: Negative for chills, diaphoresis, fatigue and fever. HENT: Negative for congestion, ear discharge, ear pain, facial swelling and hearing loss. Eyes: Negative for pain, discharge, redness and itching. Respiratory: Negative for cough, shortness of breath and wheezing. Cardiovascular: Negative for chest pain, palpitations and leg swelling. Gastrointestinal: Negative for abdominal pain, constipation, diarrhea, nausea and vomiting. Endocrine: Negative for polydipsia, polyphagia and polyuria. Genitourinary: Negative for decreased urine volume, difficulty urinating, dysuria, enuresis, flank pain, frequency, hematuria and urgency. Musculoskeletal: Negative for arthralgias, joint swelling and myalgias. Skin: Negative for rash and wound. Neurological: Negative for dizziness, tremors, weakness, light-headedness and numbness. Hematological: Negative for adenopathy. Does not bruise/bleed easily. Physical Exam Vital Signs: Vitals: 07/28/23 1407 07/28/23 1410 BP: 116/59 110/80 BP Site: Left Arm Right Arm BP Postition: Sitting Standing BP CUFF SIZE: M (9-13 inches) M (9-13 inches) Pulse: 76 75 SpO2: 100% Weight: 80.7 kg (178 lb) BMI: There is no height or weight on file to calculate BMI. General appearance: alert in no apparent distress. Psychiatric: Oriented to place, time and person HEENT: atraumatic, supple, moist oral mucosa, no JVD Cardiovascular: normal S1-S2, no edema Respiratory: No respiratory distress with no use of accessory muscles. Clear to auscultation bilaterally with no wheezes or crackles Abdomen: soft, no tenderness, no guarding, positive bowel sounds and no hepato or splenomegaly Vascular: adequate pulses and no carotid bruits. Musculoskeletal: no joint swelling or tenderness. Neurologic: No focal deficit in upper or lower extremities Lymphatic: no cervical or axillary lymphadenopathy. Laboratory Studies Chemistry: No results found for: SODIUM , K , CL , CO2 , ANIONGAP , BUN , CREATININE , EGFR , CALCIUM , MG , PHOSPHORUS , IONIZEDCALC No results found for: TOTALPROTEI , ALBUMIN , AST , ALT , BILIRUBIN , ALKPHOS Hematology: No results found for: WBC , HGB , HCT , PLT Anemia Studies: No results found for: IRONSAT , FERRITIN , [id number] , FOLATE Mineral and Bone Labs: No results found for: CALCIUM , PHOSPHORUS , VITD25 , PTH Urine Studies: No results found for: COLOR , TURBIDITY , SPECIFICGRA , NITRITE , PHURINE , LEUKOCYTE , PROTEIN , KETONES , UROBILINOGEN , BLOODHGB No results found for: UPROCRTRAT , MICROALBUR , MICRAU Immunology Profile No results found for: PROTELECTR , SEDRATE , CRP , RF , ANASCREEN , ANTIDSDNA , C3 , C4 , ANCA , MYELOP , PROTEINASE3 , ANTIGLOMERU No results found for: HAV , HEPAIGM , HEPBIGM , HEPBCAB , HBEAG , HEPCAB Imaging Echocardiogram: No results found. IMPRESSION 1. Hyponatremia: Medications that have been associated with hyponatremia these include Strattera, Tegretol, Zyprexa, Lamictal, and Invega. Fortunately, she does not have severe hyponatremia and at this moment no specific intervention is necessary. Ordinarily, we would fluid restrict patients With this degree of hyponatremia. I believe, because of her behavioral disorder, it would be very difficult to restrict her access to water or other beverages. PLAN 1. Confirm diagnosis with measuring of plasma osmolality, T4 TSH cortisol uric acid urine sodium urine creatinine urine osmolality. 2. No change in current medications. 3. She return the office in 4-6 weeks time to review the results of her investigations. Further recommendations will be forthcoming depending on the results of these studies. If treatment were needed, it would probably consists of low-dose loop diuretic and sodium chloride tablets to increase obligate free water excretion. Thank you No primary care provider on file. for the referral and opportunity to participate in the care of your patients! Please contact me at [phone] (Office) or [phone] (Answering service) with any questions. CASE MELCHOR MD [facility] This note was created with the assistance of a speech-recognition program. Although the intention is to generate a document that actually reflects the content of the visit, no guarantees can be provided that every mistake has been identified and corrected by editing. documented in this encounterPremier Health [facility]04-10-2024 Discharge summary Author Rico Romero [facility] June 01, 2023 3:06pm Note Date/Time June 01, 2023 12: 23pm [facility] [address] [place] [address] Discharge Summary Signed Patient: Migdalia Connelly MR#: [id number] : 1985 Acct:[id number] Age/Sex: 37 / F Adm Date: 4 Loc: 4N Room: 8F4953-[address]: Rico Romero DO Copies to: Lio Muñoz, DO Rico Romero, DO~ Providers Date of Discharge: 06/01/23 Discharging Provider: Rico Romero Primary Care Provider: Lio Muñoz Discharge Diagnosis (1) Periorbital cellulitis: (2) Failure [...] with developmental delay who lives at the [facility]. She had been cared for [...] before she will be transferred back to [place]. She was also given the discharge instructions [...] % (Auto) N/A, Lymph % (Auto) N/A, Bates % (Auto) N/A, Eos % (Auto) N/A, Baso % (Auto) N/A, Nucleat RBC Rel Count N/A, Neut # (Auto) N/A, Lymph # (Auto) N/A, Bates # (Auto) N/A, Eos # (Auto) N/A, [...] (Reason: nausea and vomiting) Follow Up: Lio Muñoz DO [Primary Care Provider] - (The office is currently closed for lunch. Please call the office for a follow-up appointment within 3-5 days. ) Documented By: Rico Romero DO 1219 Signed By: <Electronically signed by Rico Romero DO> 06/01/23 8[facility] Work Phone: [phone] 607-302404-09-2024 Progress note Author Rico Romero [facility] May 31, 2023 11:47am Note Date/Time May 31, 2023 11:[address] [facility] [address] [place] [address] Hospitalist Progress Note Signed Patient: Migdalia Connelly MR#: [id number] : 1985 Acct:[id number] Age/Sex: 37 / F Adm Date: 4 Loc: 4N Room: 8U0242-9 Type: ADM IN Attending Dr: Rico Romero [...] Verified 05/29/23 13:05) Unknown Reaction pseudoephedrine [From VicFlowify Limited DayQuil] Allergy (Unknown, Verified 05/29/23 13:05) Unknown [...] Tablet PO 05/28/24 19:29 0.2 mg 09,1399,1929 KATHARINE Administration Diazepam 5 mg 05/29/23 18:15 [...] Capsule PO 05/28/24 19:29 200 mg BID@899,1929 KATHARINE Administration Emollient Ointment 1 applic 05/29/23 18:01 05/30/23 11:30 Petrolatum,White 99 Gm Oint...G. TOPICAL 1 applic BID PRN Administration dry skin Enoxaparin Sodium 40 mg 05/30/23 10:00 05/31/23 08:18 Enoxaparin 40 Mg/0.4 Ml Syringe SUBCUT 05/29/24 09:59 40 mg DAILY@10 [facility] Administration Fenofibrate 145 mg 05/29/23 19:30 05/30/23 20:04 Fenofibrate Nanocrystallized 145 Mg Tablet PO 05/28/24 19:29 145 mg DAILY@1929 KATHARINE Administration Fluticasone Propionate 2 spray 05/29/23 18:01 Fluticasone Propionate Highland 120 Highland/16 Gm Bottle INTRANASAL 05/28/24 18:00 DAILY PRN allergy symptoms Guanfacine HCl 2 mg 05/29/23 19:30 05/31/23 08:15 Guanfacine 1 Mg Tablet PO 05/28/24 19:29 2 mg TID@0900,1400,1929 KATHARINE Administration Hydralazine HCl 10 mg 05/29/23 [...] 1143 Signed By: <Electronically signed by Rico Romero, > 05/31/[address] [facility] Work Phone: 1(925) 867-884504-08-2024 Progress note Author Anamaria Benton [facility] May 30, 2023 12:21pm Note Date/Time May 30, 2023 12:[address] [facility] [address] [place] [address] Hospitalist Progress Note Signed Patient: Migdalia Connelly MR#: [id number] : 1985 Acct:[id number] Age/Sex: 37 / F Adm Date: 4 Loc: 4N Room: [address] [place] [address] Type: ADM INOo Attending Dr: Anamaria Benton [...] Tablet PO 05/28/24 19:29 0.2 mg 0900,1399,1929 [facility] Administration Diazepam 5 mg 05/29/23 18:15 Diazepam [...] Capsule PO 05/28/24 19:29 200 mg BID@899,1929 [facility] Administration Emollient Ointment 1 applic 05/29/23 18:01 [...] Propionate 2 spray 05/29/23 18:01 Fluticasone Propionate Highland 120 Highland/16 Gm Bottle INTRANASAL 05/28/24 18:00 DAILY PRN [...] signed by Anamaria Benton MD> 05/30/23 [facility] Work Phone: 1(899) 601-890604-07-2024 History and physical note Author Arvind Regan [facility] May 29, 2023 4:12pm Note Date/Time May 29, 2023 4:[address] [facility] [address] [place] [address] Hospitalist H&P Signed Patient: Migdalia Connelly MR#: [id number] : 1985 Acct:[id number] Age/Sex: 37 / F Adm Date: 4 Loc: 4N Room: 9A2017-7 Type: ADM INOo Attending Dr: Arvind Regan DO Copies to: NON STAFF Arvind Regan DO~ HPI DATE OF EXAMINATION: 05/29/23 CHIEF COMPLAINT: Concern for worsening facial cellulitis HISTORY OF PRESENT ILLNESS: This is a 37-year-old female with MRDD who lives in a [facility] term [facility] with concern for worsening facial cellulitis. Patient was just discharged from [facility] on Tuesday after being treated for periorbital [...] negative unless noted below or in HPI [facility] Medical History (Updated 05/29/23 @ 16:10 by [...] 13:36 Lymph % (Auto) N/A 05/29/23 13:36 Bates % (Auto) N/A 05/29/23 13:36 Eos % (Auto) N/A 05/29/23 13:36 Baso % (Auto) N/A 05/29/23 13:36 Nucleat RBC Rel Count N/A 05/29/23 13:36 Neut # (Auto) N/A 05/29/23 13:36 Lymph # (Auto) N/A 05/29/23 13:36 Bates # (Auto) N/A 05/29/23 13:36 Eos # [...] periorbital cellulitis where she was hospitalized at [facility] and treated with IV antibiotics and discharged [...] stay (# of days): 36 Documented By: Avrind Regan DO 05/29/23 1600 Signed By: <Electronically signed by Arvind Regan DO> 05/29/[address] [facility] Work Phone: 1(814) 527-544804-03-2024 Miscellaneous Notes* Telephone Encounter - Cesia Lang - 05/25/2023 11:38 AM EDT Called and scheduled new pt appt with nurse from [facility]. Labs ordered and faxed to facility. documented in this encounterPremier Health [facility]04-03-2024 Telephone encounter Note* Telephone Encounter - Cesia Lang - 05/25/2023 11:38 AM EDT Called and scheduled new pt appt with nurse from [facility]. Labs ordered and faxed to facility. [facility]04-20-2023 History of Present illness Narrative* Scarlett Albarran DDS - 06/10/2022 1:29 PM EDT ----- May at 3:52:48 PM ----- ----- Provider: [id number] Resident Betsy -- Clinic: [facility] ----- OR EVALUATION Patient presents for evaluation [...] treatment in the OR was sent out [phone] NOTE: Note: Pt seen in the OR about 2 years ago. Next Visit: OR ----- Signed on May at 4:11:20 PM ----- ----- Provider: [id number] Ed Obrien DDS -- Clinic: [facility] ----- documented in this encounterMetroHealthEvaluation + Plan note No data available for this section [facility]* Diagnosis Onset Date Resolution Status Periorbital cellulitis acute [facility] Work Phone: Evaluation note* Diagnosis Onset Date Resolution Status Bipolar disorder acute Failure of outpatient treatment acute Hypercholesterolemia acute Hypertension acute Moderate intellectual disability acute Periorbital cellulitis acute PTSD (post-traumatic stress disorder) acute Seizure disorder acute [facility] Work Phone: Evaluation note* Diagnosis Onset Date Resolution Status Bipolar disorder acute Hypercholesterolemia acute Hypertension acute PTSD (post-traumatic stress disorder) acute Seizure disorder acute Periorbital cellulitis resol shana [facility] Work Phone: Evaluation note* Diagnosis Caries- Primary Unspecified dental caries [facility] encounter [facility]* Diagnosis Lip licking dermatitis [facility] Diagnosis Caries- Primary Unspecified dental caries [facility]* Diagnosis Onychomycosis- Primary Dermatophytosis of nail Pain in right toe(s) Pain in left toe(s) [facility]* Diagnosis Pre-op evaluation- Primary Preoperative examination, unspecified [facility]* Diagnosis Onychomycosis- Primary Dermatophytosis of nail Pain in right toe(s) Pain in left toe(s) [facility]* Diagnosis Convulsions, unspecified convulsion type (CMS/HCC)- Primary Hyponatremia Hyposmolality and/or hyponatremia Developmental delay Unspecified delay in development Anger reaction Undersocialized conduct disorder, aggressive type, unspecified [facility] encounter [facility]* Diagnosis Hyponatremia- Primary Hyposmolality and/or hyponatremia [facility] Diagnosis Hyponatremia- Primary Hyposmolality and/or hyponatremia documented [facility]* Diagnosis Hyponatremia- Primary Hyposmolality and/or hyponatremia documented in this encounter [facility] Author Arvind Regan [facility] May 29, 2023 4:12pm Note Date/Time May 29, 2023 4:[address] [facility] [address] [place] [address] Hospitalist H&P Signed Patient: Migdalia Connelly MR#: [id number] : 1985 Acct:[id number] Age/Sex: 37 / F Adm Date: 4 Loc: 4N Room: [address] [place] [address] Type: ADM INOo Attending Dr: Arvind Regan DO Copies to: NON STAFF Arvind Regan DO~ HPI DATE OF EXAMINATION: 05/29/23 CHIEF COMPLAINT: Concern for worsening facial cellulitis HISTORY OF PRESENT ILLNESS: This is a 37-year-old female with MRDD who lives in a long term [facility] with concern for worsening facial cellulitis. Patient was just discharged from [facility] on Tuesday after being treated for periorbital [...] negative unless noted below or in HPI [facility] Medical History (Updated 05/29/23 @ 16:10 by [...] 13:36 Lymph % (Auto) N/A 05/29/23 13:36 Bates % (Auto) N/A 05/29/23 13:36 Eos % (Auto) N/A 05/29/23 13:36 Baso % (Auto) N/A 05/29/23 13:36 Nucleat RBC Rel Count N/A 05/29/23 13:36 Neut # (Auto) N/A 05/29/23 13:36 Lymph # (Auto) N/A 05/29/23 13:36 Bates # (Auto) N/A 05/29/23 13:36 Eos # [...] periorbital cellulitis where she was hospitalized at [facility] and treated with IV antibiotics and discharged [...] signed by Arvind Regan DO> 05/29/23 1612 [facility] Work Phone: Hospital Discharge instructions No data available for this section [facility] Additional Instructions DO continue to finish all of the antibiotic pills that was prescribed by Radha: Doxycycline. DO NOT take any of the prednisone that was prescribed by Radha. This is not needed anymore. DO take the extra antibiotic we are sending home at this time: Avelox[facility] Work Phone: Hospital Discharge instructions Additional Instructions Take simethicone as prescribed for abdominal distention. Take Metamucil Colace and MiraLAX as prescribed constipation. Make sure to take drinking plenty of water each day. Take Naprosyn as prescribed for headache. Follow-up with your primary care provider for ongoing treatment.[facility] Work Phone: InstructionsNot on filedocumented in this encounter [facility]ructionsNot on filedocumented in this encounter [facility] System[facility]ructionsNot on filedocumented in this encounter [facility] Narrative* Procedure Summary Procedure Name Responsible Anesthesiologist Anesthesia Start Time Anesthesia Stop Time DENTAL VISIT Orquidea Florez MD 12/15/23 0832 4 0925 Events Date Time Event Comment 12/15/2023 0810 0832 An Start Data 0832 An Start 0833 Preinduction Verify The anes thesia team has reviewed the patient's vital signs immediately prior to induction. MAXIMO Soliz 0833 Procedure Timeout Confirm th e correct patient identity: Yes Confirm the correct procedure: Yes Confirm the correct procedural site: Yes Confirm signed informed consent: Yes Confirm prophylactic antibiotic administration (if applicable): N/A Discuss fire risk mitigation (if applicable): Yes Anesthesia Staff MAXIMO Soliz Proceduralist Altagracia Additional Staff 0834 An Induction 0843 Anesthesia Release 09 an stop data 09 Handoff I completed my SBAR handoff to the receiving nurse in the receiving unit. 09 AN Stop Meds Name Total glycopyrrolate (ROBINUL) injection 0.2 m g/mL 0.1 mg Midazolam 1 mg/mL 5 mg Dexmedetomidine injection 100 mcg/mL 56 mcg Ketorolac 30 mg/mL 15 mg Lactated Ringers 30 mL * Agents Name N2O O2 Flow Rate (l/min) * Blood No blood administrations on file. Lines, Drains, and Airways Type Details Placement Removal Surgical Wound 06/09/12 06/09/12 0000 by Carola Hansen, admitting office escort Wound 09/15/18; 1148; Inci jae; N/A; Mouth 09/15/18 1148 by Mayte Poole RN Wound 07/14/20; 1023; Bila teral; Other (Comment); Surgical - Incision 07/14/20 1023 by Felix Oro, RN Airway Adjunct 12/15/23; 0833; Nasal Cannula 0833 by Domingo Carrion APRN-CRNA [facility] N[facility]* Procedure Summary Procedure Name Responsible Anesthesiologist Anesthesia Start Time Anesthesia Stop Time DENTAL VISIT Orquidea Florez MD 12/15/23 0832 4 09 Events Date Time Event Comment 12/15/2023 0810 0832 An Start Data 0832 An Start 0833 Preinduction Verify The anes thesia team has reviewed the patient's vital signs immediately prior to induction. MAXIMO Soliz 0833 Procedure Timeout Confirm th e correct patient identity: Yes Confirm the correct procedure: Yes Confirm the correct procedural site: Yes Confirm signed informed consent: Yes Confirm prophylactic antibiotic administration (if applicable): N/A Discuss fire risk mitigation (if applicable): Yes Anesthesia Staff MAXIMO Soliz Proceduralist Altagracia Additional Staff 0834 An Induction 0843 Anesthesia Release 0920 an stop data 0924 Handoff I completed my SBAR handoff to the receiving nurse in the receiving unit. 924 AN Stop Meds Name Total glycopyrrolate (ROBINUL) injection 0.2 m g/mL 0.1 mg Midazolam 1 mg/mL 5 mg Dexmedetomidine injection 100 mcg/mL 56 mcg Ketorolac 30 mg/mL 15 mg Lactated Ringers 30 mL * Agents Name N2O O2 Flow Rate (l/min) * Blood No blood administrations on file. Lines, Drains, and Airways Type Details Placement Removal Surgical Wound 06/09/12 06/09/12 0000 by Carola Hansen RN Surgical Wound 09/15/18; 1148; Incision; N/A; Mouth 09/15/18 1148 by Mayte Poole RN Wound 07/14/20; 1023; Bilateral; Other (Comment); Surgical - Incision 07/14/20 1023 by Felix Oro, VISHNU Airway Adjunct 12/15/23; 0833; Nasa l Cannula; 12/15/23; 0920 12/15/23 0833 by Domingo Carrion APRN-CRNA 12/15/23 0920 by Domingo Carrion APRN-CRNA documented [facility] this encounter [facility] No data available for this section [facility] for visit Narrative* Service Level Authorization (Routine) - Closed Specialty Diagnoses / Procedures Referred By Conttruman t Referred To Contact Anesthesiology Diagnoses Caries Sabra Frias DMD [address] [place] [address] Phone: tel: fax: [facility] [address] [place] [address] Phone: tel: Referral ID Status Reason Start Date Expiration Date Visits Re quested Visits Authorized [id number] Closed 12/15/2023 12/14/2024 1 1 [facility] for visit Narrative* Consultation (Routine) - Pending Review Specialty Diagnoses / Procedures Referred By Delilah ball Referred To Contact Nephrology Diagnoses Hyponatremia Damien Jones, WOOD BOATBUILDER-PAINTER MIRROR [address] [place] [address] Phn Nephrology Nwgeni Alma [address] [place] [address] Referral ID Status Reason Start Date Expiration Date Visits Requested Visits Authorized [id number] Pending Review Specialty Services Required 05/24/2023 05/23/2024 1 1 [facility] Summary Purpose Family History No Family History Records FoundNo Family History Records Found No data available for this section No data available for this section No Family History Records FoundNo Family History Records FoundNo Family History Records FoundNo Family History Records FoundNo Family History Records Found Advance Directives Advance Directive Response Recorded Date/ Time Advance [...] ball Referred To Contact Anesthesiology Diagnoses Caries Sabra Frias, [address] [place] [address] [facility] [address] [place] [address] Referral ID Status Reason Start Date Expiration Date V isits Requested Visits Authorized [id number] Authorized 12/15/2023 12/14/2024 1 1 Scheduling Instructions Your surgical team will reach out to you to schedule a pre-admission testing appointment. Question Answer Reason for consult? Recommended PAT Risk Score Specialty Diagnoses / Procedures Referred By Delilah t Referred To Contact Anesthesiology Diagnoses Caries LukeEdRikaOg, DDS [address] [place] [address] [facility] [address] [place] [address] Referral ID Status Reason Start Date Expiration Date V isits Requested Visits Authorized [id number] Authorized 10/19/2023 10/18/2024 1 1 Scheduling Instructions Your surgical team will reach out to you to schedule a pre-admission testing appointment. Question Answer Reason for consult? Recommended PAT Risk Score Additional Source Comments INFORMATION SOURCE (unrecogn ized section and content) DATE CREATED AUTHOR 05/12/2018 [facility] DATE CREATED AUTHOR AUTHOR'S ORGANIZ ATION 07/30/2022 [facility] DATE CREATED AUTHOR AUTHOR'S ORGANIZ ATION 04/21/2023 [facility] DATE CREATED AUTHOR AUTHOR'S ORGANIZ ATION 06/10/2023 [facility] DATE CREATED AUTHOR AUTHOR'S ORGANIZ ATION 08/08/2023 [facility] DATE CREATED AUTHOR AUTHOR'S ORGANIZ ATION 03/04/2024 [facility] DATE CREATED AUTHOR AUTHOR'S ORGANIZ ATION 03/05/2024 [facility] EPIC Patient Care team informatio n (unrecognized section and content) Team Status: Active Member Role Status Dates Lio Muñoz DO Primary Care Provider Active Team Status: [...] 30, 2023 End: June 01, 2023 Arvind Regan DO Admit Provider Active Start: May 30, 2023 End: June 01, 2023 Rico Romero DO Attending Provider Active Start: May 30, 2023 End: June 01, 2023 Lio Muñoz DO Primary Care Provider Active Start: May 30, 2023 End: June 01, 2023 Team Status: Active Member Role Status Dates NON STAFF Primary Care Provider Active Team Status: Active Member Role Status Dates NON STAFF Primary Care Provider Active Start: May 29, 2023 Venita Amanda APRN Emergency Provider Active Start: May 29, 2023 Yazid Jass , DO Admit Provider, Atte nding Provider Active Start: May 29, 2023 Team Status: Active Member Role Status Dates Venita Amanda APRN Emergency Provider Active Start: May 29, 2023 End: June 01, 2023 Yazid Jass , DO Admit Provider, Atte nding Provider Active Start: May 29, 2023 End: June 01, 2023 Rico Romero DO Other Provider Active Start: May 29, 2023 End: June 01, 2023 Lio Muñoz DO Primary Care Provider Active Start: May 29, 2023 End: June 01, 2023 Sherie Holt MD Active Start: 2023 End: June 01, 2023 Team Status: Active Member Role Status Dates NON STAFF Primary Care Provider Active Start: May 29, 2023 End: June 01, 2023 Venita Amanda APRN Emergency Provider Active Start: May 29, 2023 End: June 01, 2023 Yazid Jass , DO Admit Provider, Atte nding Provider, Other Provider Active Start: May 29, 2023 End: June 01, 2023 Team Status: Inactive Member Role Status Dates Lio Muñoz DO Primary Care Provider Active Start: August 06, 2023 End: August 07, 2023 Titi Terry DO Emergency Provider Active Start: August 06, 2023 End: August 07, 2023 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 Start Date End Date Lio Muñoz MD [address] [place] [address] PCP - General Family Medicine 11/09/23 Ramone Herrera DO [address] [place] [address] Referring Physician Neurology 05/19/23 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 Start Date End Date Lio Muñoz MD [address] [place] [address] PCP - General Family Medicine 11/09/23 Ramone Herrera DO [address] [place] [id number] Referring Physician Neurology 05/19/23 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 Start Date End Date Lio Muñoz MD [address] [place] [address] PCP - General Family Medicine 11/09/23 Ramone Herrera DO [address] [place] [id number] Referring Physician Neurology 05/19/23 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 Start Date End Date Lio Muñoz MD [address] [place] [address] PCP - General Family Medicine 11/09/23 Ramone Herrera DO [address] [place] [phone] Referring Physician Neurology 05/19/23 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 Start Date End Date Lio Muñoz MD [address] [place] [id number] PCP - General Family Medicine 11/09/23 Ramone Herrera DO [address] [address] Referring Physician Neurology 05/19/23 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 Start Date End Date Lio Muñoz MD [address] [place] [address] PCP - General Family Medicine 11/09/23 Ramone Herrera DO [address] [place] [address] Referring Physician Neurology 05/19/23 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 Start Date End Date Lio Muñoz MD [address] [place] [address] PCP - General Family Medicine 11/09/23 Ramone Herrera DO [address] [place] [address] Referring Physician Neurology 05/19/23 Goals (unrecognized section and content) Goals may be documented in a n alternate section Reason for Visit (unrecogniz ed section and content) Reason Onset Date Comments PAT 11/23/2023 Anesthesia conse nt obtained Reason Comments Toenail Care Non dm nail care Reason Comments Toenail Care Non DM nail care Reason Comments Convulsions FOR RECORDS PERTAINING TO PATIENTS WHO ARE [...] BE BASED ON THE PRIMARY CLINICAL RECORDS. [employer] provides no warranty or guarantee of the accuracy or completeness of information in this document.
[2024-05-03 06:55] LABS: Basophils Percent Auto 0.6 % (0.2-2.0); Eosinophils Absolute Auto 0.2 10^3/uL (0.0-0.7); Eosinophils Percent Auto 2.4 % (0.9-7.0); Hematocrit 37.9 % (36.0-48.0); Hemoglobin 12.7 g/dL (12.0-16.0); Immature Granulocytes Abs Auto 0.02 10^3/uL (0.00-0.03); Immature Granulocytes Pct Auto 0.3 % (0.0-0.5); Lymphocytes Absolute Auto 2.4 10^3/uL (1.2-3.8); Lymphocytes Percent Auto 33.4 % (20.5-60.0); Mean Corpuscular HGB Conc 33.5 g/dL (29.9-35.2); Mean Corpuscular Hemoglobin 31.3 pg (26.7-34.0); Mean Corpuscular Volume 93.3 fL (81.0-99.0); Mean Platelet Volume 9.4 fL (9.5-13.5); Monocytes Absolute Auto 0.8 10^3/uL (0.3-0.8); Monocytes Percent Auto 11.1 % (1.7-12.0); Neutrophils Absolute Auto 3.7 10^3/uL (1.4-6.5); Neutrophils Percent Auto 52.2 % (43.0-75.0); Platelet Count 250 10^3/uL (150-450); Red Blood Count 4.06 10^6/uL (4.20-5.40); Red Cell Distribution Width 12.3 % (11.0-15.0)
[2024-05-03 07:30] LABS: Alanine Aminotransferase 26 U/L (14-59); Albumin Globulin Ratio 0.9; Albumin Level 3.5 g/dL (3.4-5.0); Alkaline Phosphatase 70 U/L (46-116); Anion Gap 15.3; Aspartate Amino Transferase 21 U/L (15-37); BUN Creatinine Ratio 14.8; Bilirubin Total 0.2 mg/dL (0.2-1.0); Calcium 9.3 mg/dL (8.5-10.1); Carbon Dioxide 25.2 mmol/L (21.0-32.0); Chloride 102 mmol/L (98-107); Chol HDL Ratio 2.7; Cholesterol 178 mg/dL (<=200); Estimated GFR (African America >60 (>=60 mL/min/1.73m^2); Estimated GFR (Non-African Ame >60 (>=60 mL/min/1.73m^2); Globulin 3.9 g/dL; Glucose 105 mg/dL (74-106); HDL Cholesterol 65 mg/dL (40-60); Potassium 4.5 mmol/L (3.5-5.1); Sodium 138 mmol/L (136-145); Total Protein 7.4 g/dL (6.4-8.2); Triglycerides 194 mg/dL (<=150); VLDL CHOLESTEROL 38.8 mg/dL
== END 2024-05-03 06:36 | disposition home or self-care (01) ==
LOC: LAB 06:35
PROVIDERS: PCP Family Medicine; Visit Provider Family Medicine
DX: E78.00 Pure hypercholesterolemia, unspecified (principal); Z79.899 Other long term (current) drug therapy; G40.909 Epilepsy, unspecified, not intractable, without status epilepticus; I10 Essential (primary) hypertension; K21.9 Gastro-esophageal reflux disease without esophagitis; K59.00 Constipation, unspecified; E61.8 Deficiency of other specified nutrient elements
CPT/HCPCS: 36415; 80053; 80061; 82306; 85025

== ENCOUNTER 2024-08-23 18:32 | Outpatient (REF) | payer MEDICARE, MEDICAID, SELFPAY ==
[2024-08-23 19:30] LABS: Glucose Urine UA NEGATIVE (NEGATIVE)
[2024-08-23 19:39] LABS: Cast Seen? NONE SEEN #/LPF (NONE SEEN); Crystals Seen? Seen #/HPF (None Seen); Urine Culture Indicated YES-FRMC
== END 2024-08-23 18:33 | disposition home or self-care (01) ==
LOC: LAB 18:32
PROVIDERS: PCP Family Medicine; Visit Provider Family Medicine
DX: R30.0 Dysuria (principal)
CPT/HCPCS: 81001; 87086

== ENCOUNTER 2024-09-28 06:32 | Outpatient (OUT) | payer MEDICARE, MEDICAID, SELFPAY ==
--- OUTSIDE RECORDS SUMMARY | 2024-09-28 06:35 | XMS_ITS | CCD ---
Author Organization [facility] Care Team Providers Care Senior Biostatistician Name Role Phone SYSTEM, PROVIDER NOT IN Admitting Unavaila ble SYSTEM, PROVIDER NOT IN Referring Unavaila ble EVANS KILGORE Primary Care Unavailable Unavailable Primary Care Provider Unavailvarsha e MUÑOZ, DR LIO Gates Consulting Unavailable MUÑOZ, [...] MUÑOZ, DR LIO Gates Primary Care Unavailable MUÑOZLIO Primary Care Physician [phone] LIO MUÑOZ Attending Unavailable MUÑOZ, LIO Admitting Unavailable MUÑOZ, LIO Attending Unavailable MUÑOZ, LIO Admitting Unavailable NON STAFF Primary Care Provider Unavailvarsha e IMAN Amanda Emergency Provider DO Jass Yazid Admit Provider DO Arvind Regan Attending Provider IMAN Amanda Emergency Provider Jass DO Yazid Admit Provider DO Rico Romero Attending Provider [phone] DO Lio Muñoz Primary Care Provider [phone] DO Titi Terry Emergency Provider Unavai eli Sharon Javi SUNattilaer Unavailable Lio Muñoz MD Primary Care Provider [phone] Unavailable Primary Care Provider Unavailabl e Unavailable Primary Care Provider Unavailabl e Isidro Herrera DOer Unavailable MuñozLio aggarwal DO Primary Care Provider EVE HAQUE Attending Unavailable TEOFILO, LINN L Referring Unavailable MUÑOZ, LIO A Primary Care Unavailable TEOFILO, LINN L Attending Unavailable TEOFILO, LINN L Referring Unavailable MUÑOZ, LIO A Primary Care Unavailable TEOFILO, LINN L Attending Unavailable TEOFILO, LINN L Referring Unavailable MUÑOZ, LIO A Primary Care Unavailable DOLCE, BHANU Juarez Attending Unavailable HILL, VALENTINA Attending Unavailable MUÑOZ, LIO Gates Referring Unavailable DOLCE, BHANU Juarez Attending Unavailable DOLCE, BHANU Juarez Attending Unavailable DOLCE, BHANU Juarez Attending Unavailable DOLCE, BHANU Juarez Attending Unavailable DOLCE, BHANU Juarez Attending Unavailable ROBERT, DAMIEN Attending Unavailable DOLCE, BHANU Juarez Attending Unavailable FELTER, IVORY Gates Attending Unavailable DOLCE, BHANU Juarez Attending Unavailable ROBERT, DAMIEN Attending Unavailable Muñoz DO, Lio A Attending Provider [phone] Muñoz, Lio A Admitting Unavailable Muñoz, Lio A Attending Unavailable SHOLEYZAID Attending Unavailable TEOFILO, LINN L Attending Unavailable MUÑOZ, LIO A Primary Care Unavailable TEOFILO, LINN L Attending Unavailable MUÑOZ, LIO A Referring Unavailable MUÑOZ, LIO A Primary Care Unavailable PROVIDER, UNKNOWN Admitting Unavailable PROVIDER, UNKNOWN Attending Unavailable MARLENI ALEJANDRO Attending Unavailable PROVIDER, UNKNOWN Admitting Unavailable LIZANDRO VERONICA Attending Unavailable PROVIDER, UNKNOWN Admitting Unavailable AL-MASHNI, OG Admitting Unavailable AL-MASHNI, OG Attending Unavailable PROVIDER, UNKNOWN Admitting Unavailable GLENN CHATMAN Attending Unavailable PROVIDER, UNKNOWN Attending Unavailable SABRA FRIAS Referring Unavailable PROVIDER, UNKNOWN Admitting Unavailable PROVIDER, UNKNOWN Attending Unavailable AL-MASHNI, OG Referring Unavailable PROVIDER, UNKNOWN Admitting Unavailable Allergies Allergy Classification Reported Allergen(s) Allergy Type Date of Onset Reaction(s) Facility Adrenergic Agonists (1 source) Pseudoephedrine Drug Allergy 024 Unknown Reaction [facility] ARIPiprazole (1 source) ARIPiprazole Drug Allergy 024 Unknown Reaction [facility] Chlorpheniramine (1 source) Chlorpheniramine Drug Allergy 024 Unknown Reaction [facility] Dextromethorphan (1 source) Dextromethorphan Drug Allergy 024 Unknown Reaction [facility] guaiFENesin (1 source) guaiFENesin Drug Allergy 024 Unknown Reaction [facility] metyroSINE (1 source) metyroSINE Drug Allergy 024 Unknown Reaction [facility] Molindone (1 source) Molindone Drug Allergy 024 Unknown Reaction [facility] Penicillins (antibiotic) (1 source) Amoxicillin Drug Allergy 024 Unknown Reaction [facility] Phenylpropanolamine (1 source) Phenylpropanolamine Drug Allergy 024 Unknown Reaction [facility] Valproate (1 source) Valproate Drug Allergy 024 Unknown Reaction [facility] (20 sources) Amoxicillin; Translations: [AMOXICILLIN] Drug [facility]ergy [facility] ARIPiprazole; Translations: [Abilify] Drug Allergy [facility] Work Phone: (20 sources) Dextromethorphan; Translations: [DEXTROMETHORPHAN HBR] Drug Allergy [facility] (20 sources) metyroSINE; Translations: [METYROSINE] Drug Allergy Unknown [facility] (20 sources) Molindone; Translations: [MOLINDONE] Drug Allergy Unknown [facility] (20 sources) Nalbuphine; Translations: [NALBUPHINE] Drug Allergy Unknown [facility] (20 sources) Valproate; Translations: [VALPROIC ACID] Drug Allergy 019 Unknown [facility] (20 sources) Food; Translations: [FOOD] Propensity to adverse reactions to drug [facility] (20 sources) Sympathomimetics; Translations: [SYMPATHOMIMETICS] Propensity to adverse reactions to drug 013 Unknown Reaction [facility] (1 source) Amoxicillin Drug Allergy [facility] (1 source) metyroSINE Drug Allergy [facility] (1 source) Molindone Drug Allergy [facility] (1 source) Nalbuphine Drug Allergy [facility] (1 source) Valproate Drug Allergy [facility] (1 source) [employer] [address] [employer] Drug allergy (disorder) [facility] (20 sources) ARIPiprazole; Translations: [ARIPIPRAZOLE] Drug Allergy 013 Unknown [facility] (20 sources) Chlorpheniramine Drug Allergy 024 Unknown [facility] (3 sources) Dextromethorphan Drug Allergy 024 Unknown Reaction [facility] (3 sources) guaiFENesin Drug Allergy 024 Unknown Reaction [facility] (3 sources) Phenylpropanolamine Drug Allergy 024 Unknown Reaction [facility] (3 sources) Pseudoephedrine Drug Allergy Unknown Reaction [facility] (3 sources) Valproate Drug Allergy 024 Unknown Reaction [facility] (7 sources) metyroSINE Drug Allergy 024 [facility] (6 sources) Other; Translations: [OTHER] Propensity to adverse reactions [facility] Medications Current Medications Medication Drug Class(es) Dates Sig (Normalized) Sig (Original) acetaminophen 325 mg oral capsule (20 sources) Start: 08-06-2023 take 2 capsules by mouth twice daily as needed for pain Start: 08-06-2023 take 650 mg by mouth twice daily Acetaminophen Active 650 MG PO Twice daily August 06, 2023 12:00am take 1 tablet by kip th every four hours as needed acetaminophen (TYLENOL) 325 mg tablet Take 1 tablet (325 mg total) by mouth every 4 (four) hours as needed. Active take 2 tablets by mo uth twice daily as needed acetaminophen (Tylenol) 325 MG tablet TAKE TWO TABLETS BY MOUTH TWICE A DAY NEEDED FOR TEMP OR GENERAL DISCOMFORT Active albuterol 0.83 mg/ml inhalation solution (3 sources) beta2-Adrenergic Agonist Start: 05-23-2024 take 1 dose by inhalation every six hours as needed albuterol (PROVENTIL,VENTOLIN) 2.5 mg /3 mL (0.083 %) nebulizer solution INHALE 1 VIAL VIA NEBULIZER EVERY 6 HOURS NEEDED FOR 2 WEEKS 05/23/2024 Active atomoxetine 60 mg oral capsule (20 sources) Norepinephrine Reuptake Inhibitor Start: 05-29-2023 take 1 capsule by mouth once daily in the morning Start: 04-27-2023 take 1 capsule by mouth once d aily in the evening busPIRone hydrochloride 10 mg oral tablet (4 sources) take 1 tablet by mouth twice daily busPIRone (BUSPAR) 10 MG tablet Take 10 mg by mouth 2 times daily. Active calcium carbonate 750 mg chewable tablet (13 sources) Start: 05-29-2023 take 2 tablets by mouth every four hours as needed Calcium Carbonate Antacid (Tums Smoothies) 750 MG CHEW Take 2 Tablets by mouth every 4 hours as needed. 05/29/2023 Active Start: 05-29-2023 take 1 tablet by mouth every f our hours as needed calcium carbonate 1500 mg / cholecalciferol 200 unt oral capsule (20 sources) Vitamin D Start: 05-29-2023 take 1 capsule by mo [facility] twice daily Start: 04-26-2023 take 1 tablet by kip [...] the morning. 07/21/2023 Active Start: 05-29-2023 Calcium Polycarb ophil (FIBER-LAX ORAL) Take by mouth. Active Calcium Polycarb ophil (FIBER-LAX ORAL) Take by mouth. 0 Active 12 hr carBAMazepine 400 mg extended release oral tablet (20 sources) Mood Stabilizer Start: 05-29-2023 take 1 tablet by mouth in the morning, then take 1 tablet by mouth every twelve hours, then take 1 tablet by mouth at bedtime carBAMazepine XR (TEGretol XR) 400 mg 12 hr tablet Take 200 mg by mouth in the morning and 200 mg at noon and 200 mg before bedtime. 05/29/2023 Active Start: 05-29-2023 take 400 mg by mouth once daily in the evening Carbamazepine Active 400 MG PO Every evening May 29, 2023 12:00am Start: 04-27-2023 End: 02-29-2024 take 1 tablet by mouth three times daily carBAMazepine (TEGRETOL XR) 200 MG SR tablet Take 200 mg by mouth 3 times daily. 11/16/2023 Active carbamazepine (T EGRETOL) 100 MG chewable tablet carbamazepine 100 mg chewable tablet Active clindamycin 300 mg oral capsule (5 sources) Lincosamide Antibacterial Start: 08-05-2024 clindamycin (CLEOCIN ) 300 mg capsule 08/05/2024 Active Start: 07-14-2020 take 1 capsule by mo [facility] three times daily clindamycin (CLEOCIN) 300 MG capsule Take 1 Capsule by mouth 3 times daily for 7 days. 21 Capsule 07/14/2020 Active cloNIDine hydrochloride 0.2 mg oral tablet (20 sources) Central alpha-2 Adrenergic Agonist Start: 06-12-2020 cloNIDine (CATAPRES) 0.2 mg tablet Take 1 tablet (0.2 mg total) by mouth in the morning and 1 tablet (0.2 mg total) at noon and 1 tablet (0.2 mg total) before bedtime. 07/21/2023 Active cloNIDine (Catap res) 0.2 MG tablet 1 (one) time each day at the same time Active dicyclomine hydrochloride 20 mg oral tablet (20 sources) Anticholinergic Start: 07-21-2023 take 1 tablet by mouth every six hours dicyclomine (BENTYL) 20 mg tablet Take 1 tablet (20 mg total) by mouth every 6 (six) hours. 07/21/2023 Active Start: 05-29-2023 [facility] dicyclomine (Ivan tyl) 20 MG tablet every 12 (twelve) hours Active docusate sodium 100 mg oral capsule (20 sources) Start: 05-29-2023 take 1 capsule by mouth in the morning, then take 1 capsule by mouth at bedtime docusate sodium (COLACE) 100 mg capsule Take 1 capsule (100 mg total) by mouth in the morning and 1 capsule (100 mg total) before bedtime. 05/29/2023 Active Start: 05-29-2023 take 2 capsules by m outh twice daily Start: 05-29-2023 take 200 mg by mouth twice [place] Docusate Sodium Active 200 MG PO Twice daily May 29, 2023 12:00am Docusate Sodium (DSS) 100 MG capsule 1 (one) time each day at the same time Active take 1 capsule by mo neh three times daily docusate sodium (COLACE) 100 MG capsule Take 100 mg by mouth 3 times daily. Active Levonorgestrel-Ethinyl Estra d (20 sources) Progestin, Estrogen, Progestin-containing Intrauterine Device Start: 05-29-2023 take 1 tablet by mouth once daily Start: 05-29-2023 take 1 tablet by kip th once daily Levonorgestrel-Ethinyl Estrad (Falmina (28)) 0.1-20 mg-mcg tablet Active 1 TAB PO Daily May 29, 2023 12:00am take 1 tablet by kip th once daily Aviane 0.1-20 MG-MCG tablet Take 1 table t by mouth Daily Active take 1 tablet by kip th once in the morning levonorgestreL-ethinyl estrad (AVIANE,ALESSE,LESSINA) 0.1-20 mg-mcg per [...] breakfast. 07/21/2023 Active Start: 05-29-2023 take 1 tablet by mouth at bedt jeni fluticasone propionate 0.05 mg/actuat metered dose nasal spray (20 sources) Corticosteroid Start: 05-29-2023 take 1 spray(s) nasal route in the morning fluticasone propionate (FLONASE) 50 mcg/actuation nasal spray Administer 1 spray into each nostril in the morning. 05/29/2023 Active Start: 05-29-2023 take 1 spray(s) nasa l route once daily as needed take 2 spray(s) nasa l route once daily as needed fluticasone (Flonase) 50 MCG/ACT nasal spray INHALE 2 SPRAYS INTO EACH NOSTRIL ONCE DAILY NEEDED Active take 2 spray(s) nasa l route once daily as needed FLUTICASONE PROPIONATE, NASAL, NASAL Use 2 Sprays in each nostril daily as needed for Other. Active glycerin 2 mg/ml / naphazoline hydrochloride 0.12 mg/ml ophthalmic solution (4 sources) Non-Standardized Chemical Allergen Start: 05-29-2023 take 0.012-0.2 drop(s) into the eye(s) three times daily as needed 12 hr guaiFENesin 600 mg extended release oral tablet (3 sources) Start: 06-01-2024 take 1 tablet by mouth twice daily as needed for congestion and cough guaiFENesin (MUCINEX) 600 mg tablet extended release 12hr TAKE ONE TABLET BY MOUTH TWICE A DAY NEEDED FOR NASAL CONGESTION AND COUGH MUCINEX 06/01/2024 Active guanFACINE 2 mg oral tablet (20 sources) Central alpha-2 Adrenergic Agonist Start: 05-29-2023 take 1 tablet by mouth once daily guanFACINE (TENEX) 2 mg tablet Take 1 tablet (2 mg total) by mouth nightly. 05/29/2023 Active Start: 05-29-2023 take 1 tablet by kip three times daily take 1.5 mg by mouth twice daily guanfacine (TENEX) 1 MG tablet Take 1.5 mg by mouth 2 times daily. Active ibuprofen 200 mg oral tablet (20 sources) Nonsteroidal Anti-inflammatory Drug Start: 05-29-2023 take 1 tablet by mouth every six hours as needed ibuprofen (ADVIL,MOTRIN) 200 mg tablet Take 1 tablet (200 mg total) by mouth every 6 (six) hours as needed. 05/29/2023 Active Start: 05-29-2023 take 2 tablets by mo [facility] every four to six hours as needed for pain Start: 05-29-2023 Ibuprofen (Adv il) 200 mg tablet Active 400 MG PO As Directed May 29, 2023 12:00am take 400 mg by mouth every four hours as needed for pain IBUPROFEN ORAL Take 400 mg by mouth every 4 hours as needed for Pain. Active ibuprofen (Motrin) 50 mg split tablet (15 sources) ibuprofen (Motri n) 50 mg split [...] in the morning. 07/21/2023 Active Start: 05-29-2023 Start: 04-27-2023 take 1 tablet by kip th once daily in the morning Start: 04-27-2023 take 2 tablets by mo uth at bedtime lamoTRIgine (LaMICtal) 150 MG tablet Take 300 mg by mouth at bedtime 04/27/2023 Active take 2 tablets by mo uth once daily lamotrigine (LAMICTAL) 25 MG tablet Take 50 mg by mouth daily. Active loperamide hydrochloride 2 mg oral tablet (20 sources) Opioid Agonist Start: 05-29-2023 loperamide (IM ODIUM A-D) 2 mg tablet Take 1 tablet (2 mg total) by mouth as needed in the morning and 1 tablet (2 mg total) as needed at noon and 1 tablet (2 mg total) as needed in the evening. 05/29/2023 Active Start: 05-29-2023 take 1 tablet by kip th three times daily as needed loperamide (IMODIUM A-D) 2 mg tablet Take 1 tablet (2 mg total) by mouth 3 (three) times a day as needed. 05/29/2023 Active Start: 05-29-2023 loratadine 10 mg oral tablet (20 sources) [...] nightly. Total 30mg 07/21/2023 Active Start: 05-29-2023 Start: 04-27-2023 take 1 tablet by mouth once da giacomo at bedtime omeprazole 20 mg delayed release oral capsule (20 sources) Proton Pump Inhibitor Start: 05-10-2023 take 1 capsule by mouth once daily before breakfast omeprazole (PriLOSEC) 20 mg capsule Take 1 capsule (20 mg total) by mouth every morning before breakfast. 05/10/2023 Active 24 hr paliperidone 6 mg extended release oral tablet (20 sources) Atypical Antipsychotic Start: 07-21-2023 take 1 tablet by mouth once daily in the morning paliperidone (INVEGA) 6 mg 24 hr tablet Take 1 tablet (6 mg total) by mouth every morning. 07/21/2023 Active Start: 05-29-2023 take 1 tablet by kip th twice daily Start: 04-27-2023 paliperidone ( Invega) 6 MG 24 hr tablet 1 tablet in the morning and 1 tablet before bedtime. 04/27/2023 Active petrolatum 1 mg/mg topical ointment (4 sources) Start: 05-29-2023 polyethylene glycol 3350 [id number] mg powder for oral solution (14 sources) Osmotic Laxative Start: 11-18-2023 polyethylene glycol (GLYCOLAX) 17 gram/dose powder Take 17 g by mouth. 11/18/2023 Active Start: 08-06-2023 psyllium 400 mg oral capsule (1 source) Start: 08-06-2023 Psyllium Husk (Metamucil) 0.4 gram capsule (1 [...] Twice daily May 29, 2023 12:00am sennosides, senior care 8.6 mg oral tablet (20 sources) Start: 05-29-2023 sennosides (Senokot) 8.6 MG tablet Twice daily 05/29/2023 Active Start: 05-29-2023 take 2 capsules by m outh twice daily as needed for constipation simethicone 250 mg oral capsule (2 sources) Start: 08-06-2023 take 1 capsule by mouth twice daily as needed sodium chloride 0.111 meq/ml nasal spray (4 sources) Start: 05-29-2023 tacrolimus 0.001 mg/mg topical ointment (20 sources) Calcineurin Inhibitor Immunosuppressant Start: 12-09-2023 tacrolimus [...] 0925, Intra-op diazePAM 5 mg oral tablet (4 sources) Benzodiazepine Start: 05-29-2023 End: 08-06-2023 take 1 tablet by mouth once Diazepam 5 mg tablet Discontinued 5 MG PO As Directed May 29, 2023 12:00am August 06, 2023 9:27pm 1 hour prior to procedure doxycycline hyclate 100 mg oral capsule (4 sources) Tetracycline-class Drug Start: 05-29-2023 End: 08-06-2023 take 1 capsule by mouth twice daily Doxycycline Hyclate 100 mg capsule Discontinued 100 MG PO Twice daily May 29, 2023 12:00am August 06, 2023 9:27pm x 10 days, started on 05/28/23 fluorouracil 50 mg/ml topical cream (4 sources) Nucleoside Metabolic Inhibitor Start: 05-29-2023 End: [...] 0925, Intra-op moxifloxacin 400 mg oral tablet (3 sources) Quinolone Antimicrobial Start: 06-01-2023 End: 08-06-2023 take 1 tablet by mouth once daily Moxifloxacin 400 mg tablet Discontinued 400 MG PO Daily 5 June 01, 2023 12:00am August 06, 2023 9:27pm ondansetron 4 mg disintegrating oral tablet (13 sources) Serotonin-3 Receptor Antagonist Start: 05-29-2023 End: 06-01-2023 take 1 tablet by mouth every six hours as needed for nausea and vomiting Ondansetron 4 mg tablet,disintegra ting Discontinued 4 MG PO Every 6 hours as needed for nausea and vomiting May 29, 2023 12:00am June 01, 2023 12:13pm take 1 tablet by kip th every six hours as needed for nausea ondansetron (Zofran) 4 MG tablet Take 4 mg by mouth every 6 hours as needed for Nausea. Active predniSONE 50 mg oral tablet (4 sources) Start: 05-29-2023 End: 06-01-2023 take 1 tablet by mouth once daily Prednisone 50 mg tablet Discontinued 50 MG PO Daily May 29, 2023 12:00am June 01, 2023 12:13pm x5 days, started on 05/29/23 Problems Active Problems Problem Classification Problem Date Documented Da te Episodic/Chronic Abdominal pain (2 sources) Abdominal pain; Translations: [Unspecified abdominal pain] 08-06-2023 Episodic Allergic reactions (2 sources) Lip-licking eczema; Translations: [Dermatitis, unspecified] 12-09-2023 Episodic Anxiety disorders (10 sources) Posttraumatic stress disorder; Translations: [Post-traumatic stress disorder, unspecified] Onset: 4 05-29-2023 Chronic Attention-deficit, conduct, and disruptive behavior disorders (20 sources) Attention deficit hyperactivity disorder; Translations: [Attention-deficit hyperactivity disorder, unspecified type] Onset: 3 06-03-2018 Chronic Developmental disorders (16 sources) Moderate intellectual disability; Translations: [Moderate intellectual disabilities] Onset: 3 05-25-2012 Chronic Disorders of lipid metabolism (20 sources) Hypercholesterolemia; Translations: [Pure hypercholesterolemia, unspecified] Onset: 4 05-29-2023 Chronic Disorders of teeth and jaw (13 sources) Chronic periodontitis; Translations: [Chronic periodontitis, unspecified] Onset: 3 06-09-2012 Chronic Epilepsy; convulsions (20 sources) Seizure disorder; Translations: [Epilepsy, unspecified, not intractable, without status epilepticus] Onset: 4 05-29-2023 Chronic Esophageal disorders (4 sources) Gastroesophageal reflux disease; Translations: [Gastro-esophageal reflux disease without esophagitis] Onset: 4 02-01-2024 Chronic Essential hypertension (20 sources) Hypertensive disorder; Translations: [Essential (primary) hypertension] Onset: 4 05-29-2023 Chronic Genitourinary symptoms and ill-defined conditions (5 sources) Unspecified abnormal findings in urine; Translations: [Other abnormal findings in urine] Onset: Episodic Headache; including migraine (6 sources) Headache; Translations: [Headache] Onset: 4 08-06-2023 Episodic Impulse control disorders, NEC (4 sources) Impulse control disorder; Translations: [Impulse disorder, unspecified] Onset: 4 02-01-2024 Chronic Miscellaneous mental health disorders (4 sources) Dissociative disorder; Translations: [Dissociative and conversion disorder, unspecified] Onset: 4 02-01-2024 Chronic Mood disorders (20 sources) Bipolar disorder; Translations: [Bipolar disorder, unspecified] Onset: 4 05-29-2023 Chronic Mycoses (3 sources) Onychomycosis; Translations: [Tinea unguium] 11-09-2023 Episodic Nonmalignant breast conditions (17 sources) Pain of breast; Translations: [Lump in right breast] Onset: 5 08-07-2024 Episodic Other bone disease and musculoskeletal deformities (2 sources) Exostosis of right foot; Translations: [Other specified disorders of bone, ankle and foot] 08-07-2024 Episodic Other connective tissue disease (3 sources) Pain of toe of right foot; Translations: [Pain in right toe(s)] 11-09-2023 Episodic Other connective tissue disease (5 sources) Pain of toe of left foot; Translations: [Pain in left toe(s)] 11-09-2023 Episodic Other connective tissue disease (2 sources) Enthesopathy of lower limb; Translations: [Other enthesopathy of right foot and ankle] 08-07-2024 Episodic Other connective tissue disease (2 sources) Pain in right foot; Translations: [Pain in right foot] 08-07-2024 Episodic Other gastrointestinal disorders (2 sources) Constipation; Translations: [Constipation, unspecified] 08-06-2023 Episodic Other skin disorders (4 sources) Ingrowing nail; Translations: [Ingrowing nail] 2024 Episodic Other skin disorders (3 sources) Breast changes; Translations: [Changes in skin texture] Onset: 5 08-08-2024 Episodic Other skin disorders (1 source) Changes in skin texture; Translations: [Changes in skin texture] Onset: 5 Episodic Residual codes; unclassified (2 sources) Other specified health status; Translations: [Failure of outpatient treatment] 05-31-2023 Episodic Skin and subcutaneous tissue infections (11 sources) Cellulitis of periorbital region; Translations: [Periorbital cellulitis] 05-29-2023 Episodic Unclassified (1 source) New Patient Onset: 5 Unclassified (1 source) Mass Onset: 5 Unclassified (1 source) Medicare breast and Pelvic Onset: 5 Past or Other Problems Problem Classification Problem Date Documented Date Episodic/Chronic Anxiety disorders (20 sources) Anger reaction; Translations: [Irritability and anger] Onset: 07-14-2023 07-14-2023 Episodic Disorders of teeth and jaw (20 sources) Dental caries; Translations: [Dental caries, unspecified] Onset: 06-09-2012 06-09-2012 Episodic Epilepsy; convulsions (20 sources) Seizure; Translations: [Unspecified convulsions] Onset: 07-14-2023 07-14-2023 Episodic Fluid and electrolyte disorders (12 sources) Hyponatremia; Translations: [Hypo-osmolality and hyponatremia] Onset: 10-27-2023 02-29-2024 Episodic Immunizations and screening for infectious disease (1 source) Encounter for screening for human papillomavirus (HPV); Translations: [ENC SCREENING HUMAN PAPILLOMAVIRUS] Onset: 04-29-2022 Episodic Other nutritional; endocrine; and metabolic disorders (20 sources) Developmental delay; Translations: [Unspecified lack of expected normal physiological development in childhood] Onset: 07-14-2023 07-14-2023 Episodic Other screening for suspected conditions (not mental disorders or infectious disease) (17 sources) Possible ; Translations: [Encounter for test, result unknown] Onset: 06-09-2012 06-09-2012 Episodic Residual codes; unclassified (20 sources) Disturbance of consciousness; Translations: [Transient alteration of awareness] Onset: 07-14-2023 07-14-2023 Episodic Results Test Name Value Interpretation Reference Range Facility Patient Instructionson 09-21 Lead Pony Rider Authentication Interface Message Text RECOMMENDATIONS: Patient was instructed on the following: Nothing by mouth after midnight before surgery except following meds with sip of water on AM of surgery: Atomoxetine, Aviane, Carbamazepine, Clonidine, Bentyl, Guanfacine, Lamictal, Metoprolol, Omeprazole and Invega Stop aspirin 7 days before surgery Stop NSAID 5 days before surgery Stop Vitamin E 10 days prior to surgery Stop alternative/herbal medication 10 days before surgery Glenn Chatman MD Normal [facility] Progress Noteson 09-21-2024 Lead Pony Rider Authentication Interface Message Text Blood pressure 138/85, pulse 85, temperature 97.8 ???F (36.6 ???C), temperature source Temporal, resp. rate 18, weight 182 lb 14.4 oz (83 kg). Medications/Allergie s Reviewed CURRENT MEDICATIONS Current Outpatient Medications Medication Sig Dispense Refill carbamazepine (TEGretol-XR) 100 MG XR tablet Take 100 mg by mouth daily. metoprolol (LOPRESSOR) 25 MG tablet Take 25 mg by mouth 3 times daily. ondansetron (Zofran) 4 MG tablet Take 4 [...] 200 mg by mouth 3 times daily. (Patient taking differently: Take 200 mg by mouth 2 times daily.) atomoxetine (STRATTERA) 40 MG capsule Take 40 [...] 100 mg by mouth 4 times daily. (Patient taking differently: Take 100 mg by mouth 3 times daily.) Calcium Polycarbophil (FIBER-LAX ORAL) Take by mouth. No current facility-administere d medications for this visit. ALLERGIES Allergies[1] Latex Allergy: unknown Surgical Procedure: dental restorations Surgeon: unknown Date of Surgery: 10/08/24 HISTORY: 39 year old with history of Mod ID,ADHD OCD, Impulse Control Disorder, PTSD, Osteopenia, Seizure Disorder, Bipolar Disorder, S/P CCK, HTN, GERD, Seasonal Allergies, Mood Disoder, HLD, Pineal Cyst and Microadenoma scheduled for above procedure My opinion was requested regarding this patient's complex presurgical evaluation. Pertinent Past Medical History and Surgical History Reviewed. Medical History[2] Surgical History[3] Pertinent Social History Reviewed Tobacco Use History[4] Social History Substance and Sexual Activity Alcohol Use Never Social History Substance and Sexual Activity Drug Use Never Family History Reviewed. family history is not on file. Patient reports following maximal activity level: > 4 METS REVIEW OF SYSTEMS: Anesthesia complications: Unknown General: Denies: fever, chills, night sweats, and weight loss MOVEMENT EDUCATION SPECIALIST: h/o Seizures on AEDs Microadenoma in Pituitary Gland Respiratory: No h/o COPD, asthma dyspnea or recent URI Cardiovascular: HTN HLD GI: GERD Constipation : No h/o disease Renal: No h/o CRI/ESRD Endo: Microadenoma Heme: Easy Bruisability Onc: No h/o malignancy VTE: No h/o DVT/PE Rheum: No h/o rheumatologic disease Psychiatric: Mood Disorder PHYSICAL EXAMINATION: General: Alert, no distress, cooperative Skin: Skin texture and tugor normal. No rash or lesions HEENT: No oropharyngeal lesions, no obvious dental infections, no loose teeth Missing some teeth Neck: No carotid bruit, JVD, lymphadenopathy or goiter CV: Normal S1/S2, no murmurs/gallops/rubs Lungs: Lungs clear to auscultation. Good air entry bilaterally Abdomen: Distended; non tender Extremities: Extremities normal. No deformities, edema, clubbing or discoloration. Neuro: No focal neurological deficits Pulses: 2+ carotid and radial pulses : Not examined/ Not indicated AIRWAY EXAM: Mallampati Classification of Airway: Class I Uvula, faucial pillars, soft palate visible Thyromental Distance: >6cm Neck Extension: FROM Mouth (more content not included)... Normal [facility] Progress Noteson 08-28-2024 Lead Pony Rider Authentication Interface Message Text Nurse (LATASHA) was contacted for PAT AND OR Visit scheduled -- confirmed information with nurse , also informed nurse importance of receiving PSE call -- if not received surgery will be canceled ----- Wednesday, August 28, 2024 at 12:25:15 PM ----- ----- Provider: HANNAH Ramírez Dental-Certified Wellness Program Coordinator -- Clinic: [place] ----- Normal [facility] Urine Cultureon 08-23-2024 Bacteria identified Cx Nom (U) <9,000 colonies/ml mixed bacterial skin contaminants 2 Days PERFORMED BY: [place] [address] PATHOLOGIST BAND SAWMILL OPERATOR CHARLENE BEDOYA M.D. Normal [facility] Comment on above: Performed By: #### C UU #### [address] MAMM DIAGNOSTIC BILATERAL W CADon 08-09-2024 MAMM DIAGNOSTIC BILATERAL W CAD MAMM DIAGNOSTIC BILATERAL W CAD MIGDALIA STEPHIE 1985 [id number], [id number] EXAM: MAMM DIAGNOSTIC BILATERAL W CAD, US BREAST RT LIMITED, 08/09/2024 11:03 AM CLINICAL INDICATIONS: Mastodynia, female; Mass of right breast, unspecified quadrant, COMPARISON: None TECHNIQUE: Bilateral digital tomosynthesis MLO and CC views of the breasts were obtained, with creation of synthetic 2D views. Computer aided detection was utilized. FINDINGS: There are scattered areas of fibroglandular density. No masses evident on mammographic imaging in the area of clinical symptoms. There are no suspicious masses, calcifications, or areas of architectural distortion. Right Breast Ultrasound, Limited TECHNIQUE: Multiple real-time tillman-scale images of the right breast in the 10 o'clock axis were performed in the area of clinical symptoms. Color Doppler was utilized to assess vascular flow. FINDINGS: There is no focal mass, architectural distortion or abnormal vascularity visualized. COMBINED IMPRESSION: No mammographic or sonographic evidence of malignancy. BI-RADS: BI-RADS 1 - Negative RECOMMENDATION: Follow up per ACR recommendations or as clinically indicated.. RISK ASSESSMENT: TC Lifetime risk: 12.68%. The patient's reported personal and family medical history was used calculate their Tyrer-Cuzick lifetime risk of malignancy. Scores less than 20% are not considered high risk per ACR guidelines and patient should continue with the above recommendation. Patient was given the results before leaving the department. Finalized by Milad Umana MD on 08/09/2024 11:36 AM 1 b FU ACR Normal [facility] Anesthesia Postprocedure Stefani luationon 02-23-2024 Lead Pony Rider Authentication Interface Message Text Anesthesia Postoperative Assessment: [...] EVENTS: No notable events documented. Normal [facility] Anesthesia Preprocedure Eval uationon 02-23-2024 Lead Pony Rider Authentication Interface Message Text ASA: 2 No history of anesthetic complications NPO status: >8 hours Past Medical History and Review of Systems Pulmonary (-) sleep apnea Dental ROS (+) teeth problems Endo sagger preparer (-) not (negative in clinic today) Neuro/Psych [...] were discussed with the patient and/or legal pest control service representative. The risks, benefits and alternatives were reviewed. Questions regarding anesthesia were answered. Patient and/or legal pest control service representative knows such anesthetics and procedures may be performed by Resident physicians, Certified Anesthesiologist Assistants, or Certified Nurse Anesthetists under the supervision of a physician. The patient /or the patient's legal pest control service representative agree with the plan for anesthesia. MHPATFORM Normal [facility] Progress Noteson 02-23-2024 Lead Pony Rider Authentication Interface Message Text ----- February at 10:34:06 AM ----- ----- Provider: Shelby Frias DMD -- Clinic: [place] ----- PT. WAS SEEN IN [facility] UNDER TWILIGHT SEDATION WITH ANESTHESIA TEAM. Anesthesia diagnosis: Unspecified mental disorder- F09 and Other intellectual disabilities- F78 Dental diagnosis: Dental Caries, unspecified - K02.9 COMPOSITE SIKHISM Patient is scheduled for Mormonism on tooth #23 MFL and 24 DFL. Reviewed Medical History. Patient is ready for treatment. Topical Benzocaine gel applied at the injection site for 2 minutes. Administered 2 carpules of Lidocaine, 2% with Epinephrine 1:100,000,. Cotton roll isolation achieved. Decay/existing hoahaoism removed, cavity prepared. Selectively etched enamel with 37% phosphoric acid, rinsed, and blot dried. OptiBond bowles applied and light-cured. Condensed packable composite shade A2 in light cured increments using Mylar strip and wedge. Finished with finishing burs, checked occlusion, verified proximal contacts and hoahaoism was polished. Rinsed and suctioned intraorally, advised [...] ----- Provider: Shelby Frias DMD -- Clinic: [place] ----- Normal [facility] Telephone Encounteron 2023 Lead Pony Rider Authentication Interface Message Text Anesthesia consent obtained by Dr. Koch and scanned into Alfred. Normal [facility] PAT Call Historyon Lead Pony Rider Authentication Interface Message Text Telephone History Migdalia Card, [id number] 02/01/2024 Patient was identified by name and date of with Nurse Anaya from [facility]. Needs: Physical, Neck Circumference, Glasses, BHCG, Intellectual Disability, Anxiety and Seizure Precautions on DOS. If the patient becomes ill prior to procedure or surgery, they are to call their provider or surgeon's office directly. 02/01/2024 - communicated with patient will need urine test the morning of the procedure 02/01/2024-Spoke with Dr. Florez (Anesthesia) in regards to anxiety with last procedure - indicates that [facility] can give her 5 mg Valium at least 1 hour prior to arriving (Nurse at [facility] - Latasha- aware) 02/01/2024-[facility] to provide most recent labs (fax number given) 02/14/2024-LG consent obtained - see media analyst 38 year old 190.6 lbs 5' 5 [...] 09/05/2018 Added automatically from request for surgery [id number] Constipation Per OSH H+P 08/2018 Dental decay 08/26/2016 Added automatically from request for surgery [id number] Developmental delay Per OSH H+P 08/2018 Hormone [...] Decay, Dental Caries, Peridontitis, Endo (+) obesity sagger preparer (+) irregular periods Neuro/Psych (+) bipolar disorder, [...] DENTAL RESTORATIONS; Surgeon: Bhavin Valdovinos DDS; Location: [facility] [place]; Service: Dental DENTAL RESTORATIONS N/A 09/15/2018 Procedure: DENTAL RESTORATIONS; Surgeon: Og Mahoney DDS; Location: [facility]; Service: Dental DENTAL RESTORATIONS Bilateral 07/14/2020 Procedure: DENTAL RESTORATIONS; Surgeon: Og Mahoney DDS; Location: [facility]; Service: Dental SOCIAL HISTORY: Social History Socioeconomic History Marital status: Single Tobacco Use Smoking status: Never Smokeless tobacco: Never Substance and Sexual Activity Alcohol use: Never Drug use: Never PAIN ASSESSMENT: Severity: 0 Location: N/A LABORATORY DATA: [facility] 10/24/2023 LABS TESTS REVIEWED: CXRay: No Chest [...] ta (more content not included)... Normal [facility] Addendum Noteon 12-15-2023 Lead Pony Rider Authentication Interface Message Text Addendum created 12/15/23 1134 by Orquidea Florez MD Clinical Note Signed Normal [facility] Lead Pony Rider Authentication Interface Message Text Addendum created 12/15/23 1026 by Domingo Carrion APRN-RAVINDRA Flowsheet accepted, LDA properties accepted Normal [facility] Anesthesia Postprocedure Steafni kyungationon 12-15-2023 Lead Pony Rider Authentication Interface Message Text Anesthesia Postoperative Assessment: [...] EVENTS: No notable events documented. Normal [facility] Anesthesia Preprocedure Maria Luisa escalona 12-15-2023 Lead Pony Rider Authentication Interface Message Text ASA: 2 No history of anesthetic complications PSE status: Had PSE NPO status: >8 hours Past Medical History and Review of Systems (Full ROS completed in PSE) Pulmonary (-) sleep apnea Dental ROS (+) teeth problems Endo sagger preparer (-) not (negative in clinic today) Neuro/Psych [...] were discussed with the patient and/or legal pest control service representative. The risks, benefits and alternatives were reviewed. Questions regarding anesthesia were answered. Patient and/or legal pest control service representative knows such anesthetics and procedures may be performed by Resident physicians, Certified Anesthesiologist Assistants, or Certified Nurse Anesthetists under the supervision of a physician. The patient /or the patient's legal pest control service representative agree with the plan for anesthesia. MHPATFORM Normal [facility] Anesthesia Transfer Of Careo n 12-15-2023 Lead Pony Rider Authentication Interface Message Text Patient recovered by UNIT SUPERVISOR in room. Patient is awake, comfortable, and [...] DENTAL RESTORATIONS; Surgeon: Bhavin Valdovinos DDS; Location: [facility] [place]; Service: Dental CHOLECYSTECTOMY (2009) Per OSH H+P 08/2018 DENTAL RESTORATIONS (09/15/2018) Procedure: DENTAL RESTORATIONS; Surgeon: Og Mahoney DDS; Location: [facility] [place]; Service: Dental DENTAL RESTORATIONS (07/14/2020) Procedure: DENTAL RESTORATIONS; Surgeon: Og Mahoney DDS; Location: [facility] [place]; Service: Dental Allergies: Abilify, Amoxicillin, Depakote [valproic acid], Food, Metyrosine, Moban [molindone], Nubain [nalbuphine], Sympathomimetics, and Vicks 44 cough relief [dextromethorphan hbr] Basic Operating Room Facts: * No surgeons listed * Anesthesiologist: Orquidea Florez MD UNIT SUPERVISOR: Domingo Carrion APRN-CRNA DENTAL VISIT Intraoperative Events: [...] of the report was received. MAXIMO Soliz Normal [facility] Blood Attestationon 12-15-19 Lead Pony Rider Authentication Interface Message Text Blood Attestation: ATTESTATION OF INFORMED CONSENT FOR BLOOD: The transfusion of blood and/or blood components were discussed with the patient and/or legal pest control service representative. The risks, benefits and alternatives were reviewed. Questions regarding blood transfusions were answered. The patient /or the patient's legal pest control service representative agree with the plan for transfusion of blood and/or blood components. Normal [facility] Progress Noteson 12-15-2023 Lead Pony Rider Authentication Interface Message Text ----- November at 9:52:24 AM ----- ----- Provider: Orlando Alejandro Resident -- Clinic: [place] ----- PT WAS SEEN IN [facility] UNDER TWILIGHT SEDATION WITH ANESTHESIA TEAM [...] status of dentition on the charting. COMPOSITE SIKHISM Patient is scheduled for Mormonism on tooth #26 surface B5. Topical Benzocaine gel applied at the injection site for 2 minutes. Administered 0.5 carpules of Lidocaine, 2% with Epinephrine 1:100,000,. Isolation achieved. Decay/existing hoahaoism removed, cavity prepared. Selectively etched enamel with 37% phosphoric acid, rinsed, and blot dried. OptiBond bowles applied and light-cured. Condensed packable composite shade A2 in light cured increments. Finished with finishing burs, checked occlusion, verified proximal contacts and hoahaoism was polished. SIMPLE EXTRACTION tooth # 7 [...] ----- Provider: Shelby Frias DMD -- Clinic: [place] ----- Normal [facility] Appt H AND Jaspreet Lead Pony Rider Authentication Interface Message Text Attestation signed by [...] Lio Jones MD Pre-Admission Testing Consultation Migdalia Cueva Stephie, [id number] 38 year old Female 11/23/2023 Consult placed to [facility] due to significant PMH of HLD, HTN, seizures, moderate intellectual disability. [facility] Triage Risk Score Total Score: 3 2 Patient is on more than 2 antihypertension medications. 1 Patient has history of hyperlipidemia. Migdalia Anay Card is scheduled for Dental Mormonism Pre-Op diagnosis of: Dental Carries HISTORY OF PRESENT ILLNESS: Patient is a 38 year old female with a pmh of HLD, HTN, seizures, moderate intellectual disability. Patient is here for pre-admission optimization and education prior to surgery. RECENT ILLNESS: Serious illness or hospitalization within the last six months. No STOP BANG: STOP-BANG Row Name 11/23/23 1330 History of sleep apnea? Yes Snoring No [...] DENTAL RESTORATIONS; Surgeon: Bhavin Valdovinos DDS; Location: [facility]; Service: Dental DENTAL RESTORATIONS N/A 09/15/2018 Procedure: DENTAL RESTORATIONS; Surgeon: Og Mahoney DDS; Location: [facility] [place]; Service: Dental DENTAL RESTORATIONS Bilateral 07/14/2020 Procedure: DENTAL RESTORATIONS; Surgeon: Og Mahoney DDS; Location: [facility] [place]; Service: Dental Past Medical History and Review [...] d (more content not included)... Normal [facility] Telephone Encounteron 2023 Lead Pony Rider Authentication Interface Message Text Anesthesia consent obtained and scanned into Mapp. Scheduled for surgery 12/15/2023. Normal [facility] Progress Noteson 11-07-2023 Lead Pony Rider Authentication Interface Message Text Parent/guardian/richard ent was contacted for PAT AND IV Sedation scheduled -- confirmed information with patient, also informed mom importance of going to PAT appointment -- if missed, IV Sedation will be cancelled, and you will be placed back on wait list 12/15/2023----- Tuesday, November 07, 2023 at 2:12:30 PM ----- ----- Provider: HANNAH Ramírez Dental-Certified Wellness Program Coordinator -- Clinic: [place] ----- Normal [facility] Lead Pony Rider Authentication Interface Message Text Parent/guardian/richard ent was contacted for PAT AND IV Sedation scheduled -- confirmed information with patient, also informed mom importance of going to PAT appointment -- if missed, IV Sedation will be cancelled, and you will be placed back on wait list 12/15/2023----- Tuesday, November 07, 2023 at 2:17:34 PM ----- ----- Provider: HANNAH Ramírez Dental-Certified Wellness Program Coordinator -- Clinic: [place] ----- Normal [facility] Progress Noteson 10-19-2023 Lead Pony Rider Authentication Interface Message Text ----- Thursday, October 19, 2023 at 11:01:41 AM ----- ----- Provider: Glynn Veronica, Resident -- Clinic: [place] ----- LIMITED EXAM Patient presents for Emergency [...] consented to treatment today. Pt here with relationship advisor to discuss IV sedation as a quicker [...] sedation. Informed both the patient and the relationship advisor. Treatment request for IV sedation will be sent for the patient. Next Visit: IV sedation and appropriate treatment. ----- Signed on Thursday, October 19, 2023 at 1:27:08 PM ----- ----- Provider: Satinder Obrien DDS -- Clinic: [place] ----- Normal [facility] Alanine aminotransferase [En zymatic activity/volume] in Serum or PlasmaOrdered By: Titi Terry on 08-06-2023 ALT [Catalytic activity/Vol] 25 U/L 7-52 [facility] Albumin [Mass/volume] in Ser um or Plasma by Bromocresol green (BCG) dye binding methoOrdered By: Titi Terry on 08-06-2023 Albumin BCG dye [Mass/Vol] 4.0 g/dL 3.5-5.7 [facility] Alkaline phosphatase [Enzyma tic activity/volume] in Serum or PlasmaOrdered By: Titi Terry on 08-06-2023 ALP [Catalytic activity/Vol] 32 U/L 34-104 [facility] Aspartate aminotransferase [ Enzymatic activity/volume] in Serum or PlasmaOrdered By: Titi Terry on 08-06-2023 AST [Catalytic activity/Vol] 24 U/L 13-39 [facility] Bacteria [Presence] in Urine by AutomatedOrdered By: HEBERT SILVA on 08-06-2023 Bacteria Auto Ql (U) 2+ [HPF] None Seen [facility] Basophils Auto (Bld) [#/Vol] Ordered By: Titi Terry on 08-06-2023 Basophils (Bld) [#/Vol] 0.0 10*3/uL 0.0-0.2 [facility] Basophils/100 WBC Auto (Bld) Ordered By: Titi Terry on 08-06-2023 Basophils/100 WBC (Bld) 0.3 % . F [facility] Bilirubin Test strip Ql (U)O rdered By: PROVIDER SHIRA on 08-06-2023 Bilirubin Ql (U) Negative Negative [facility] Bilirubin.direct [Mass/volum e] in Serum or PlasmaOrdered By: Titi Terry on 08-06-2023 Bilirubin.direct [Mass/Vol] 0.10 mg/dL 0.03-0.18 [facility] Bilirubin.total [Mass/volume ] in Serum or PlasmaOrdered By: Titi Terry on 08-06-2023 Bilirubin [Mass/Vol] 0.3 mg/dL 0.3-1.0 [facility] COVID CepheidOrdered By: Leonid lindo Harrison on 08-06-2023 SARS-CoV-2 (COVID-19) Ab IA Ql Negative Negative [facility] Comment on above: This is a duplicate [employer] Xpert Xpress CoV-2/Flu/RSV Plus RNA by RT-PCR result to be used for statistical tracking purpose only. SARS-CoV-2 (COVID-19) RNA ROSENDO+probe Ql (Unsp spec) [facility] Calcium [Mass/volume] in Ser um or PlasmaOrdered By: Titi Terry on 08-06-2023 Calcium [Mass/Vol] 8.8 mg/dL 8.6-10.3 [facility] Carbon dioxide, total [Moles /volume] in Serum or PlasmaOrdered By: Titi Terry on 08-06-2023 CO2 [Moles/Vol] 22.4 mmol/L 21.0-31.0 [facility] Chloride [Moles/volume] in S marimar or PlasmaOrdered By: Titi Terry on 08-06-2023 Chloride [Moles/Vol] 99 mmol/L 98-107 [facility] Color Auto (U)Ordered By: SHANT SILVA on 08-06-2023 Color (U) Yellow Yellow [facility] Creatinine [Mass/volume] in Serum or PlasmaOrdered By: Titi Terry on 08-06-2023 Creatinine [Mass/Vol] 0.56 mg/dL 0.60-1.20 [facility] Eosinophils Auto (Bld) [#/Vo l]Ordered By: Titi Terry on 08-06-2023 Eosinophils (Bld) [#/Vol] 0.0 10*3/uL 0.0-0.45 [facility] Eosinophils/100 WBC Auto (Bl d)Ordered By: Titi Terry on 08-06-2023 Eosinophils/100 WBC (Bld) 0.3 % . [facility] Epithelial cells.non-squamou s [#/area] in Urine sediment by Automated countOrdered By: PROVIDER TEMP on 08-06-2023 Epithelial cells.non-squamous Auto (Urine sed) [#/Area] 1-2 [HPF] None Seen [facility] Epithelial cells.squamous [# /area] in Urine sediment by Automated countOrdered By: PROVIDER TEMP on 08-06-2023 Epithelial cells.squamous Auto (Urine sed) [#/Area] 10-19 [HPF] 0-2 [facility] Erythrocyte distribution wid th Auto (RBC) [Ratio]Ordered By: Titi Terry on 08-06-2023 Erythrocyte distribution width (RBC) [Ratio] 13.0 % 11.9-15.3 [facility] Erythrocytes [#/area] in Uri ne sediment by Automated countOrdered By: PROVIDER TEMP on 08-06-2023 RBC Auto (Urine sed) [#/Area] 5-9 [HPF] 0-4 [facility] Globulin Calc (S) [Mass/Vol] Ordered By: Titi Terry on 08-06-2023 Globulin (S) [Mass/Vol] 2.9 g/dL [facility] Glucose [Mass/volume] in Ser um or PlasmaOrdered By: Titi Terry on 08-06-2023 Glucose [Mass/Vol] 116 mg/dL 70-100 [facility] Comment on above: ADA recommended refe rence rangeRandom Glucose Reference Range is dependent on time and content of last meal. Glucose of more than 200 mg/dL in a nonstressed, ambulatory subject supports the diagnosis of Diabetes Mellitus. Glucose [Mass/volume] in Uri ne by Test stripOrdered By: PROVIDER TEMP on 08-06-2023 Glucose Test strip (U) [Mass/Vol] Normal mg/dL Normal [facility] Hematocrit Auto (Bld) [Volum e fraction]Ordered By: Titi Terry on 08-06-2023 Hematocrit (Bld) [Volume fraction] 32.9 % 34.0-46.4 [facility] Hemoglobin Test strip Ql (U) Ordered By: PROVIDER TEMP on 08-06-2023 Hemoglobin Ql (U) Negative Negative [facility] Hemoglobin [Mass/volume] in BloodOrdered By: Titi Terry on 08-06-2023 Hemoglobin (Bld) [Mass/Vol] 11.4 g/dL 11.8-15.4 [facility] Hyaline casts [#/area] in Ur ine sediment by Automated countOrdered By: PROVIDER TEMP on 08-06-2023 Hyaline casts Auto (Urine sed) [#/Area] None [LPF] 0-8 [facility] Ketones Test strip Ql (U)Ord ered By: PROVIDER TEMP on 08-06-2023 Ketones Ql (U) Negative Negative [facility] Leukocyte esterase [Presence ] in Urine by Test stripOrdered By: PROVIDER TEMP on 08-06-2023 Leukocyte esterase Test strip Ql (U) 2+ Negative [facility] Leukocytes [#/area] in Urine sediment by Automated countOrdered By: PROVIDER TEMP on 08-06-2023 WBC Auto (Urine sed) [#/Area] 10-19 [HPF] 0-4 [facility] Leukocytes [#/volume] correc kristian for nucleated erythrocytes in Blood by Automated counOrdered By: Titi Terry on 08-06-2023 WBC corrected for nucl RBC Auto (Bld) [#/Vol] 9.0 10*3/uL 3.8-11.6 [facility] Lipase [Enzymatic activity/v olume] in Serum or PlasmaOrdered By: Titi Terry on 08-06-2023 Lipase [Catalytic activity/Vol] 25.0 U/L 11.0-82.0 [facility] Lymphocytes Auto (Bld) [#/Vo l]Ordered By: Titi Terry on 08-06-2023 Lymphocytes (Bld) [#/Vol] 0.6 10*3/uL 1.00-4.8 [facility] Lymphocytes/100 WBC Auto (Bl d)Ordered By: Titi Terry on 08-06-2023 Lymphocytes/100 WBC (Bld) 6.2 % . [facility] MCH Auto (RBC) [Entitic mass ]Ordered By: Titi Terry on 08-06-2023 MCH (RBC) [Entitic mass] 32.0 pg 24.7-34.3 [facility] MCHC Auto (RBC) [Mass/Vol]Or dered By: Titi Terry on 08-06-2023 MCHC (RBC) [Mass/Vol] 34.8 g/dL 32.0-35.0 [facility] MCV Auto (RBC) [Entitic vol] Ordered By: Titi Terry on 08-06-2023 MCV (RBC) [Entitic vol] 92.0 fL 80-100 [facility] Monocyte distribution width [Entitic volume] in Blood by AutomatedOrdered By: Titi Terry on 08-06-2023 Monocyte distribution width Auto (Bld) [Entitic vol] 28.85 % 0.00-20.00 [facility] Comment on above: For adults in ED, MD W > 20.0 may be associated with a higher risk of sepsis during the first 12 hrs of hospital admission Monocytes Auto (Bld) [#/Vol] Ordered By: Titi Terry on 08-06-2023 Monocytes (Bld) [#/Vol] 0.4 10*3/uL 0.0-0.8 [facility] Monocytes/100 WBC Auto (Bld) Ordered By: Titi Terry on 08-06-2023 Monocytes/100 WBC (Bld) 4.2 % . [facility] Mucus [Presence] in Urine by AutomatedOrdered By: HEBERT SILVA on 08-06-2023 Mucus Auto Ql (U) Rare [LPF] [facility] Neutrophils Auto (Bld) [#/Vo l]Ordered By: Titi Terry on 08-06-2023 Neutrophils (Bld) [#/Vol] 8.0 10*3/uL 1.8-7.7 [facility] Neutrophils/100 WBC Auto (Bl d)Ordered By: Titi Terry on 08-06-2023 Neutrophils/100 WBC (Bld) 89.0 % . [facility] Nitrite Test strip Ql (U)Ord ered By: PROVIDER SHIRA on 08-06-2023 Nitrite Ql (U) Negative Negative [facility] No Panel InformationOrdered By: Titi Terry on 08-06-2023 Estimated GFR (CKD-EPI) > 60.0 mL/Min [facility] Creatinine Clearance (Chem 142.49 [facility] Nucleated erythrocytes [Pres ence] in Blood by Automated countOrdered By: Titi Terry on 08-06-2023 Nucleated RBC Auto Ql (Bld) 0.0 /100{WBC} 0-0.5 [facility] Platelet mean volume Auto (B ld) [Entitic vol]Ordered By: Titi Terry on 08-06-2023 Platelet mean volume (Bld) [Entitic vol] 6.8 fL 6.3-10.7 [facility] Platelets Auto (Bld) [#/Vol] Ordered By: Titi Terry on 08-06-2023 Platelets (Bld) [#/Vol] 294 10*3/uL 150-450 [facility] Potassium [Moles/volume] in Serum or PlasmaOrdered By: Titi Terry on 08-06-2023 Potassium [Moles/Vol] 3.7 mmol/L 3.5-5.1 [facility] Protein Test strip (U) [Mass /Vol]Ordered By: HEBERT SILVA on 08-06-2023 Protein (U) [Mass/Vol] Negative Negative [facility] Protein [Mass/volume] in Ser um or PlasmaOrdered By: Titi Terry on 08-06-2023 Protein [Mass/Vol] 6.9 g/dL 6.4-8.9 [facility] RBC Auto (Bld) [#/Vol]Ordere d By: Titi Terry on 08-06-2023 RBC (Bld) [#/Vol] 3.57 10*6/uL 3.60-5.00 [facility] Serum or plasma albumin/glob ulin mass ratioOrdered By: Titi Terry on 08-06-2023 Albumin/Globulin [Mass ratio] 1.4 {ratio} [facility] Serum or plasma anion gap de terminationOrdered By: Titi Terry on 08-06-2023 Anion gap [Moles/Vol] 13.3 mmol/L 6.0-15.0 [facility] Serum or plasma non-glucuron idated bilirubin measurement (mass/volume)Ordered By: Titi Terry on 08-06-2023 Bilirubin.indirect [Mass/Vol] 0.2 mg/dL [facility] Sodium [Moles/volume] in Ser um or PlasmaOrdered By: Titi Terry on 08-06-2023 Sodium [Moles/Vol] 131 mmol/L 136-145 [facility] Specific gravity Test strip (U) [Rel density]Ordered By: PROVIDER TEMP on 08-06-2023 Specific gravity (U) [Rel density] 1.022 1.001-1.030 [facility] Urea nitrogen [Mass/volume] in Serum or PlasmaOrdered By: Titi Terry on 08-06-2023 Urea nitrogen [Mass/Vol] 6 mg/dL 09-14 [facility] Urine appearanceOrdered By: PROVIDER TEMP on 08-06-2023 Appearance (U) Cloudy Clear [facility] Urobilinogen Test strip (U) [Mass/Vol]Ordered By: PROVIDER TEMP on 08-06-2023 Urobilinogen (U) [Mass/Vol] Normal mg/dL Normal [facility] WBC Auto (Bld) [#/Vol]Ordere d By: Titi Terry on 08-06-2023 WBC (Bld) [#/Vol] 9.0 10*3/uL 3.8-11.6 [facility] pH Test strip (U)Ordered By: PROVIDER TEMP on 08-06-2023 pH (U) 6.5 [pH] 5.0-9.0 [facility] Alanine aminotransferase [En zymatic activity/volume] in Serum or PlasmaOrdered By: Rico Romero on 06-01-2023 ALT [Catalytic activity/Vol] 15 U/L 7-52 [facility] Albumin [Mass/volume] in Ser um or Plasma by Bromocresol green (BCG) dye binding methoOrdered By: Rico Romero on 06-01-2023 Albumin BCG dye [Mass/Vol] 3.5 g/dL 3.5-5.7 [facility] Alkaline phosphatase [Enzyma tic activity/volume] in Serum or PlasmaOrdered By: Rico Romero on 06-01-2023 ALP [Catalytic activity/Vol] 42 U/L 34-104 [facility] Aspartate aminotransferase [ Enzymatic activity/volume] in Serum or PlasmaOrdered By: Rico Romero on 06-01-2023 AST [Catalytic activity/Vol] 13 U/L 13-39 [facility] Band form neutrophils/100 WB C Manual cnt (Bld)Ordered By: Arvind Murdocksein on 06-01-2023 Band form neutrophils/100 WBC (Bld) 5 % 0-5 [facility] Basophils Auto (Bld) [#/Vol] Ordered By: Arvind Murdocksein on 06-01-2023 Basophils (Bld) [#/Vol] N/A [facility] Basophils/100 WBC Auto (Bld) Ordered By: Arvind Murdocksein on 06-01-2023 Basophils/100 WBC (Bld) N/A [facility] Bilirubin.total [Mass/volume ] in Serum or PlasmaOrdered By: Rico Romero on 06-01-2023 Bilirubin [Mass/Vol] 0.2 mg/dL 0.3-1.0 [facility] C reactive protein [Mass/vol ume] in Serum or PlasmaOrdered By: Rico Romero on 06-01-2023 CRP [Mass/Vol] 1.1 mg/dL 0.0-0.5 [facility] Calcium [Mass/volume] in Ser um or PlasmaOrdered By: Rico Romero on 06-01-2023 Calcium [Mass/Vol] 8.9 mg/dL 8.6-10.3 [facility] Carbon dioxide, total [Moles /volume] in Serum or PlasmaOrdered By: Rico Romero on 06-01-2023 CO2 [Moles/Vol] 26.6 mmol/L 21.0-31.0 [facility] Chloride [Moles/volume] in S marimar or PlasmaOrdered By: Rico Romero on 06-01-2023 Chloride [Moles/Vol] 102 mmol/L 98-107 [facility] Creatinine [Mass/volume] in Serum or PlasmaOrdered By: Rico Romero on 06-01-2023 Creatinine [Mass/Vol] 0.43 mg/dL 0.60-1.20 [facility] Eosinophils Auto (Bld) [#/Vo l]Ordered By: Arvind Regan on 06-01-2023 Eosinophils (Bld) [#/Vol] N/A [facility] Eosinophils/100 WBC Auto (Bl d)Ordered By: Arvind Regan on 06-01-2023 Eosinophils/100 WBC (Bld) N/A [facility] Eosinophils/100 WBC Manual c nt (Bld)Ordered By: Arvind Regan on 06-01-2023 Eosinophils/100 WBC (Bld) 4 % 1-3 [facility] Erythrocyte distribution wid th Auto (RBC) [Ratio]Ordered By: Arvind Regan on 06-01-2023 Erythrocyte distribution width (RBC) [Ratio] 13.7 % 11.9-15.3 [facility] Erythrocyte sedimentation ra te by Photometric methodOrdered By: Rico Romero on 06-01-2023 ESR Photometric method (Bld) [Velocity] 30 mm/hr 0-19 [facility] Globulin Calc (S) [Mass/Vol] Ordered By: Rico Romero on 06-01-2023 Globulin (S) [Mass/Vol] 3.0 g/dL [facility] Glucose [Mass/volume] in Ser um or PlasmaOrdered By: Rico Romero on 06-01-2023 Glucose [Mass/Vol] 107 mg/dL 70-100 [facility] Comment on above: ADA recommended refe rence rangeRandom Glucose Reference Range is dependent on time and content of last meal. Glucose of more than 200 mg/dL in a nonstressed, ambulatory subject supports the diagnosis of Diabetes Mellitus. Hematocrit Auto (Bld) [Volum e fraction]Ordered By: Arvind Regan on 06-01-2023 Hematocrit (Bld) [Volume fraction] 35.5 % 34.0-46.4 [facility] Hemoglobin [Mass/volume] in BloodOrdered By: Arvind Regan on 06-01-2023 Hemoglobin (Bld) [Mass/Vol] 11.7 g/dL 11.8-15.4 [facility] Leukocytes [#/volume] correc kristian for nucleated erythrocytes in Blood by Automated counOrdered By: Arvind Murdocksein on 06-01-2023 WBC corrected for nucl RBC Auto (Bld) [#/Vol] 10.1 10*3/uL 3.8-11.6 [facility] Lymphocytes Auto (Bld) [#/Vo l]Ordered By: Yaneyda Jass on 06-01-2023 Lymphocytes (Bld) [#/Vol] N/A [facility] Lymphocytes/100 WBC Auto (Bl d)Ordered By: Yaneyda Jass on 06-01-2023 Lymphocytes/100 WBC (Bld) N/A [facility] Lymphocytes/100 WBC Manual c nt (Bld)Ordered By: Arvind Murdocksein on 06-01-2023 Lymphocytes/100 WBC (Bld) 24 % 18-42 [facility] MCH Auto (RBC) [Entitic mass ]Ordered By: Arvind Murdocksein on 06-01-2023 MCH (RBC) [Entitic mass] 31.0 pg 24.7-34.3 [facility] MCHC Auto (RBC) [Mass/Vol]Or dered By: Yaneyda Jass on 06-01-2023 MCHC (RBC) [Mass/Vol] 33.0 g/dL 32.0-35.0 [facility] MCV Auto (RBC) [Entitic vol] Ordered By: Arvind Murdocksein on 06-01-2023 MCV (RBC) [Entitic vol] 93.9 fL 80-100 [facility] Monocytes Auto (Bld) [#/Vol] Ordered By: Arvind Murdocksein on 06-01-2023 Monocytes (Bld) [#/Vol] N/A [facility] Monocytes/100 WBC Auto (Bld) Ordered By: Yaneyda Jass on 06-01-2023 Monocytes/100 WBC (Bld) N/A [facility] Monocytes/100 WBC Manual cnt (Bld)Ordered By: Arvind Murdocksein on 06-01-2023 Monocytes/100 WBC (Bld) 6 % 2-11 [facility] Myelocytes/100 WBC Manual cn t (Bld)Ordered By: Arvind Regan on 06-01-2023 Myelocytes/100 WBC (Bld) 11 % 0-0 [facility] Neutrophils Auto (Bld) [#/Vo l]Ordered By: Arvind Murdocksein on 06-01-2023 Neutrophils (Bld) [#/Vol] N/A [facility] Neutrophils/100 WBC Auto (Bl d)Ordered By: Arvind Murdocksein on 06-01-2023 Neutrophils/100 WBC (Bld) N/A [facility] No Panel InformationOrdered By: Rico Romero on 06-01-2023 Estimated GFR (CKD-EPI) > 60.0 mL/Min [facility] Creatinine Clearance (Chem 191.30 [facility] Nucleated erythrocytes [Pres ence] in Blood by Automated countOrdered By: Arvind Regan on 06-01-2023 Nucleated RBC Auto Ql (Bld) N/A [facility] Platelet adequacy [Presence] in Blood by Light microscopyOrdered By: Arvind Regan on 06-01-2023 Platelets LM Ql (Bld) Increased Normal [facility] Platelet mean volume Auto (B ld) [Entitic vol]Ordered By: Arvind Regan on 06-01-2023 Platelet mean volume (Bld) [Entitic vol] 6.1 fL 6.3-10.7 [facility] Platelet morphology finding [Identifier] in BloodOrdered By: Arvind Regan on 06-01-2023 Platelet morphology finding Nom (Bld) Normal Normal [facility] Platelets Auto (Bld) [#/Vol] Ordered By: Arvind Regan on 06-01-2023 Platelets (Bld) [#/Vol] 456 10*3/uL 150-450 [facility] Potassium [Moles/volume] in Serum or PlasmaOrdered By: Rico Romero on 06-01-2023 Potassium [Moles/Vol] 4.3 mmol/L 3.5-5.1 [facility] Protein [Mass/volume] in Ser um or PlasmaOrdered By: Rico Romero on 06-01-2023 Protein [Mass/Vol] 6.5 g/dL 6.4-8.9 [facility] RBC Auto (Bld) [#/Vol]Ordere d By: Arvind Regan on 06-01-2023 RBC (Bld) [#/Vol] 3.77 10*6/uL 3.60-5.00 [facility] RBC morphologyOrdered By: Maddie Regan on 06-01-2023 RBC morphology finding Nom (Bld) Normal Normal [facility] Segmented neutrophils/100 WB C Manual cnt (Bld)Ordered By: Arvind Regan on 06-01-2023 Segmented neutrophils/100 WBC (Bld) 51 % 50-70 [facility] Serum or plasma albumin/glob ulin mass ratioOrdered By: Rico Romero on 06-01-2023 Albumin/Globulin [Mass ratio] 1.2 {ratio} [facility] Serum or plasma anion gap de terminationOrdered By: Rico Romero on 06-01-2023 Anion gap [Moles/Vol] 11.7 mmol/L 6.0-15.0 [facility] Sodium [Moles/volume] in Ser um or PlasmaOrdered By: Rico Romero on 06-01-2023 Sodium [Moles/Vol] 136 mmol/L 136-145 [facility] Urea nitrogen [Mass/volume] in Serum or PlasmaOrdered By: Rico Romero on 06-01-2023 Urea nitrogen [Mass/Vol] 9 mg/dL 7-25 [facility] WBC Auto (Bld) [#/Vol]Ordere d By: Arvind Regan on 06-01-2023 WBC (Bld) [#/Vol] 10.1 10*3/uL 3.8-11.6 [facility] Lactate [Moles/volume] in Se rum or PlasmaOrdered By: Anamaria Benton on 05-31-2023 Lactate [Moles/Vol] 1.4 mmol/L 0.5-2.2 [facility] Metamyelocytes/100 WBC Manua l cnt (Bld)Ordered By: Arvind Regan on 05-31-2023 Metamyelocytes/100 WBC (Bld) 8 % 0-0 [facility] No Panel InformationOrdered By: Arvind Regan on 05-31-2023 Slides for Pathologist Review Ordered path review [facility] Polychromasia [Presence] in Blood by Light microscopyOrdered By: Arvind Regan on 05-31-2023 Polychromasia LM Ql (Bld) Slight [facility] Promyelocytes/100 WBC Manual cnt (Bld)Ordered By: Arvind Regan on 05-31-2023 Promyelocytes/100 WBC (Bld) 1 % 0-0 [facility] Serum or plasma trough vanco mycin levelOrdered By: Arvind Regan on 05-31-2023 Vancomycin trough [Mass/Vol] 7.4 ug/mL 10.0-20.0 [facility] Comment on above: Last dose: - Basophils/100 WBC Manual cnt (Bld)Ordered By: Arvind Regan on 05-30-2023 Basophils/100 WBC (Bld) 0 % 0-2 [facility] Magnesium [Mass/volume] in S marimar or PlasmaOrdered By: Arvind Regan on 05-30-2023 Magnesium [Mass/Vol] 1.8 mg/dL 1.9-2.7 [facility] Vancomycin [Mass/volume] in Serum or Plasma --peakOrdered By: Arvind Regan on 05-30-2023 Vancomycin peak [Mass/Vol] 14.1 ug/mL 20.0-40.0 [facility] Comment on above: Last dose: - Anisocytosis LM Ql (Bld)Orde red By: Venita Amanda on 05-29-2023 Anisocytosis Ql (Bld) Slight [facility] Bacterial blood cultureOrder ed By: Venita Amanda on 05-29-2023 Bacteria identified Cx Nom (Bld) NO GROWTH 5 DAYS [facility] Bacteria identified Cx Nom (Bld) NO GROWTH 5 DAYS [facility] Band form neutrophils/100 WB C Manual cnt (Bld)Ordered By: Venita Amanda on 05-29-2023 Band form neutrophils/100 WBC (Bld) 1 % 0-5 [facility] Basophils Auto (Bld) [#/Vol] Ordered By: Venita Amanda on 05-29-2023 Basophils (Bld) [#/Vol] N/A [facility] Basophils/100 WBC Auto (Bld) Ordered By: Venita Amanda on 05-29-2023 Basophils/100 WBC (Bld) N/A [facility] Calcium [Mass/volume] in Ser um or PlasmaOrdered By: Venita Amanda on 05-29-2023 Calcium [Mass/Vol] 9.0 mg/dL 8.6-10.3 [facility] Carbon dioxide, total [Moles /volume] in Serum or PlasmaOrdered By: Venita Amanda on 05-29-2023 CO2 [Moles/Vol] 24.6 mmol/L 21.0-31.0 [facility] Chloride [Moles/volume] in S marimar or PlasmaOrdered By: Venita Amanda on 05-29-2023 Chloride [Moles/Vol] 99 mmol/L 98-107 [facility] Creatinine [Mass/volume] in Serum or PlasmaOrdered By: Venita Amanda on 05-29-2023 Creatinine [Mass/Vol] 0.55 mg/dL 0.60-1.20 [facility] Eosinophils Auto (Bld) [#/Vo l]Ordered By: Venita Amanda on 05-29-2023 Eosinophils (Bld) [#/Vol] N/A [facility] Eosinophils/100 WBC Auto (Bl d)Ordered By: Venita Amanda on 05-29-2023 Eosinophils/100 WBC (Bld) N/A [facility] Erythrocyte distribution wid th Auto (RBC) [Ratio]Ordered By: Venita Amanda on 05-29-2023 Erythrocyte distribution width (RBC) [Ratio] 13.7 % 11.9-15.3 [facility] Glucose [Mass/volume] in Ser um or PlasmaOrdered By: Venita Amanda on 05-29-2023 Glucose [Mass/Vol] 163 mg/dL 70-100 [facility] Comment on above: ADA recommended refe rence rangeRandom Glucose Reference Range is dependent on time and content of last meal. Glucose of more than 200 mg/dL in a nonstressed, ambulatory subject supports the diagnosis of Diabetes Mellitus. Hematocrit Auto (Bld) [Volum e fraction]Ordered By: Venita Amanda on 05-29-2023 Hematocrit (Bld) [Volume fraction] 35.6 % 34.0-46.4 [facility] Hemoglobin [Mass/volume] in BloodOrdered By: Venita Amanda on 05-29-2023 Hemoglobin (Bld) [Mass/Vol] 11.8 g/dL 11.8-15.4 [facility] Hypochromia LM Ql (Bld)Order ed By: Venita Amanda on 05-29-2023 Hypochromia Ql (Bld) Slight [facility] Lactate [Moles/volume] in Se rum or PlasmaOrdered By: Venita Amanda on 05-29-2023 Lactate [Moles/Vol] 3.0 mmol/L 0.5-2.2 [facility] Comment on above: Critical valueresult calledat 1423 on 05/29/23--- 05/29/23 1424 ---Lactic previously reported as: 3.0 *H mmol/L Leukocytes [#/volume] correc kristian for nucleated erythrocytes in Blood by Automated counOrdered By: Venita Amanda on 05-29-2023 WBC corrected for nucl RBC Auto (Bld) [#/Vol] 8.7 10*3/uL 3.8-11.6 [facility] Lymphocytes Auto (Bld) [#/Vo l]Ordered By: Venita Amanda on 05-29-2023 Lymphocytes (Bld) [#/Vol] N/A [facility] Lymphocytes/100 WBC Auto (Bl d)Ordered By: Venita Amanda on 05-29-2023 Lymphocytes/100 WBC (Bld) N/A [facility] Lymphocytes/100 WBC Manual c nt (Bld)Ordered By: Venita Amanda on 05-29-2023 Lymphocytes/100 WBC (Bld) 23 % 18-42 [facility] MCH Auto (RBC) [Entitic mass ]Ordered By: Venita Amanda on 05-29-2023 MCH (RBC) [Entitic mass] 31.0 pg 24.7-34.3 [facility] MCHC Auto (RBC) [Mass/Vol]Or dered By: Venita Amanda on 05-29-2023 MCHC (RBC) [Mass/Vol] 33.2 g/dL 32.0-35.0 [facility] MCV Auto (RBC) [Entitic vol] Ordered By: Venita Amanda on 05-29-2023 MCV (RBC) [Entitic vol] 93.2 fL 80-100 [facility] Metamyelocytes/100 WBC Manua l cnt (Bld)Ordered By: Venita Amanda on 05-29-2023 Metamyelocytes/100 WBC (Bld) 4 % 0-0 [facility] Monocyte distribution width [Entitic volume] in Blood by AutomatedOrdered By: Venita Amanda on 05-29-2023 Monocyte distribution width Auto (Bld) [Entitic vol] 18.14 % 0.00-20.00 [facility] Monocytes Auto (Bld) [#/Vol] Ordered By: Venita Amanda on 05-29-2023 Monocytes (Bld) [#/Vol] N/A [facility] Monocytes/100 WBC Auto (Bld) Ordered By: Venita Amanda on 05-29-2023 Monocytes/100 WBC (Bld) N/A [facility] Monocytes/100 WBC Manual cnt (Bld)Ordered By: Venita Amanda on 05-29-2023 Monocytes/100 WBC (Bld) 1 % 2-11 [facility] Myelocytes/100 WBC Manual cn t (Bld)Ordered By: Venita Amanda on 05-29-2023 Myelocytes/100 WBC (Bld) 12 % 0-0 [facility] Neutrophils Auto (Bld) [#/Vo l]Ordered By: Venita Amanda on 05-29-2023 Neutrophils (Bld) [#/Vol] N/A [facility] Neutrophils/100 WBC Auto (Bl d)Ordered By: Venita Amanda on 05-29-2023 Neutrophils/100 WBC (Bld) N/A [facility] No Panel InformationOrdered By: Venita Amanda on 05-29-2023 Estimated GFR (CKD-EPI) > 60.0 mL/Min [facility] Creatinine Clearance (Chem 149.21 [facility] Slides for Pathologist Review Ordered path review [facility] Nucleated erythrocytes [Pres ence] in Blood by Automated countOrdered By: Venita Amanda on 05-29-2023 Nucleated RBC Auto Ql (Bld) N/A [facility] Platelet adequacy [Presence] in Blood by Light microscopyOrdered By: Venita Amanda on 05-29-2023 Platelets LM Ql (Bld) Normal Normal [facility] Platelet mean volume Auto (B ld) [Entitic vol]Ordered By: Venita Amanda on 05-29-2023 Platelet mean volume (Bld) [Entitic vol] 6.4 fL 6.3-10.7 [facility] Platelet morphology finding [Identifier] in BloodOrdered By: Venita Amanda on 05-29-2023 Platelet morphology finding Nom (Bld) Normal Normal [facility] Platelets Auto (Bld) [#/Vol] Ordered By: Venita Amanda on 05-29-2023 Platelets (Bld) [#/Vol] 403 10*3/uL 150-450 [facility] Polychromasia [Presence] in Blood by Light microscopyOrdered By: Venita Amanda on 05-29-2023 Polychromasia LM Ql (Bld) Slight [facility] Potassium [Moles/volume] in Serum or PlasmaOrdered By: Venita Amanda on 05-29-2023 Potassium [Moles/Vol] 4.0 mmol/L 3.5-5.1 [facility] RBC Auto (Bld) [#/Vol]Ordere d By: Venita Amanda on 05-29-2023 RBC (Bld) [#/Vol] 3.82 10*6/uL 3.60-5.00 [facility] RBC morphologyOrdered By: Fredrick Amanda on 05-29-2023 RBC morphology finding Nom (Bld) N/A [facility] Segmented neutrophils/100 WB C Manual cnt (Bld)Ordered By: Venita Amanda on 05-29-2023 Segmented neutrophils/100 WBC (Bld) 59 % 50-70 [facility] Serum or plasma anion gap de terminationOrdered By: Venita Amanda on 05-29-2023 Anion gap [Moles/Vol] TNP [facility] Comment on above: Test not performed Serum or plasma free cefurox jeni measurement (mass/volume)Ordered By: Arvind Regan on 05-29-2023 Cefuroxime free [Mass/Vol] Negative Negative [facility] Comment on above: Performed at: - [facility] [address] [id number] Director: Tyrell Fernandez PhD, Phone: [phone] Sodium [Moles/volume] in Ser um or PlasmaOrdered By: Venita Amanda on 05-29-2023 Sodium [Moles/Vol] 134 mmol/L 136-145 [facility] Urea nitrogen [Mass/volume] in Serum or PlasmaOrdered By: Venita Amanda on 05-29-2023 Urea nitrogen [Mass/Vol] 11 mg/dL 7-25 [facility] WBC Auto (Bld) [#/Vol]Ordere d By: Venita Amanda on 05-29-2023 WBC (Bld) [#/Vol] 8.7 10*3/uL 3.8-11.6 [facility] CarbamazepineOrdered By: SYS TEM SYSTEM on 04-13-2023 Carbamaz Lvl 6.9 microgram/mL Normal 4.0-12.0 Remiso l Chem Comment on above: Performed By: #### 2 [id number] #### [facility] [address] [place] [address] Physician Orderon 04-13-2023 Physician Order [id number] 0#1.00TIFF Normal [facility] SodiumOrdered By: SYSTEM SYS TEM on 04-13-2023 Sodium [Moles/Vol] 134 mmol/L Low 135-145 Remiso l Chem Comment on above: Performed By: #### 2 [id number] #### [facility] [address] [place] [address] CHEMISTRYOrdered By: SYSTEM SYSTEM on 02-23-2023 Carbamaz Lvl 8.7 microgram/mL Normal 4.0 - 12.0 mcg/mL Remisol Chem Sodium [Moles/Vol] 123 mmol/L Low 135 - 145 mmol/L Remisol Chem Carbamazepineon 02-23-2023 Carbamaz Lvl 8.7 microgram/mL Normal 4.0-12.0 [facility] Comment on above: Performed By: #### 2 [id number], [id number] #### [facility] [address] [place] [address] Physician Orderon 02-23-2023 Physician Order [id number] 6#1.00TIFF Normal [facility] Sodiumon 02-23-2023 Sodium [Moles/Vol] 123 mmol/L Low 135-145 [facility] Comment on above: Performed By: #### 2 [id number] #### [facility] [address] [place] [address] UA (CLEAN/CATCH) MOVEMENT EDUCATION SPECIALIST/MICRO I F IND.on 05-17-2022 Bilirubin Ql (U) Negative Normal NEGATIVE [facility] Comment on above: Performed By: #### U ACSIND #### [facility] [address] [place] [address] Dr. Pio Mack Clarity (U) CLEAR Normal CLEAR [facility] Comment on above: Performed By: #### U ACSIND #### [facility] [address] [place] [address] Dr. Pio Mack Color (U) LT. YELLOW Normal YELLOW [facility] Comment on above: Performed By: #### U ACSIND #### [facility] [address] [place] [address] Dr. Pio Mack Glucose Ql (U) Negative Normal NEGATIVE [facility] Comment on above: Performed By: #### U ACSIND #### [facility] [address] [place] [address] Dr. Pio Mack Hemoglobin Ql (U) Negative Normal NEGATIVE [facility] Comment on above: Performed By: #### U ACSIND #### [facility] [address] [address] [address] Pio Mack Ketones Ql (U) Negative Normal NEGATIVE [facility] Comment on above: Performed By: #### U ACSIND #### [facility] [address] [address] [address] Pio Mack LEUKOCYTES Negative Normal NEGATIVE [facility] Comment on above: Performed By: #### U ACSIND #### [facility] [address] [address] [address] Pio Mack Nitrite Ql (U) Negative Normal NEGATIVE [facility] Comment on above: Performed By: #### U ACSIND #### [facility] [address] [place] [address] Dr. Pio Mack pH (U) 7.5 [pH] Normal 5-9 [facility] Comment on above: Performed By: #### U ACSIND #### [facility] [address] [address] [address] Pio Mack SPEC GRAVITY 1.010 Normal 1.005-<=1.02 5 [facility] Comment on above: Performed By: #### U ACSIND #### [facility] [address] [place] [address] Dr. Pio Mack UA PROTEIN Negative Normal NEGATIVE/ TRACE [facility] Comment on above: Performed By: #### U ACSIND #### [facility] [address] [address] [address] Pio Mack UR MICRO IND NOT INDICATED Normal [facility] Comment on above: Performed By: #### U ACSIND #### [facility] [address] [address] [address] Pio Mack Urobilinogen Qn (U) 0.2 {Polina'U}/dL Normal 0.2 - 1. 0 [facility] Comment on above: Performed By: #### U ACSIND #### [facility] [address] [place] [address] Dr. Pio Mack PAP ACOG PANEL 2: 30 to 65on 05-06-2022 . . Normal [facility] Comment on above: Result Comment: Perf ormed at: WB Performed By: #### 4 [id number] #### [facility] [address] [place] [address] Dr. Pio Mack Age Gdln ACOG Testing 30-65 [facility] Comment on above: Performed By: #### 4 [id number] #### [facility] [address] [address] [address] Pio Mack DIAGNOSIS: Comment Normal [facility] Comment on above: Result Comment: NEGA TIVE FOR INTRAEPITHELIAL LESION OR MALIGNANCY. Performed at: WB Performed By: #### 4 [id number] #### [facility] [address] [place] [address] Dr. Pio Mack HPV Aptima Negative Normal Negative [facility] Comment on above: Result Comment: This nucleic acid amplification test detects fourteen high-risk HPV types (16,18,31,33,35,39,45,51,52,56,58,59,66,68) without differentiation. Performed at: =G Performed By: #### 4 [id number] #### [facility] [address] [address] [address] Pio Mack HPV Genotype Reflex Comment Normal [facility] Comment on above: Result Comment: Crit eria not met, HPV Genotype not performed. Performed at: WB Performed By: #### 4 [id number] #### [facility] [address] [place] [address] Dr. Pio Mack Methodology: Comment [facility] Comment on above: Result Comment: This liquid based ThinPrep(R) pap test was screened with the use of an image guided system. Performed at: WB Performed By: #### 4 [id number] #### [facility] [address] [place] [address] Dr. Pio Mack Note: Comment [facility] Comment on above: Result Comment: The Pap smear is a screening test designed to aid in the detection of premalignant and malignant conditions of the uterine cervix. It is not a diagnostic procedure and should not be used as the sole means of detecting cervical cancer. Both false-positive and false-negative reports do occur. . Performed at: WB Performed By: #### 4 [id number] #### [facility] [address] [place] [address] Dr. Pio Mack Performed by: Comment Normal [facility] Comment on above: Result Comment: Ayesha Poe, [employer]vertising Display Rotator (ASCP) Performed at: WB Performed By: #### 4 [id number] #### [facility] [address] [place] [address] Dr. Pio Mack Specimen adequacy: Comment Normal [facility] Comment on above: Result Comment: Sati sfactory for evaluation. Endocervical and/or squamous metaplastic cells (endocervical component) are present. Performed at: WB Performed By: #### 4 [id number] #### [facility] [address] [place] [address] Dr. Pio Mack Vital Signs Date Time Vital Sign Value Performing Clinician Facility 09-04-2024 10:32-0400 Body height 163.8 cm Linn Red MD Work Phone: [facility] 09-04-2024 10:32-0400 Body mass index (BMI) [Ratio] 31.03 kg/m2 Linn Red MD Work Phone: [facility] 09-04-2024 10:32-0400 Body weight 83.28 kg Linn Red MD Work Phone: [facility] 09-04-2024 10:32-0400 Diastolic blood pressure 70 mm[Hg] Linn Red MD Work Phone: [facility] 09-04-2024 10:32-0400 Systolic blood pressure 110 mm[Hg] Linn Red MD Work Phone: [facility] 08-21-2024 10:31-0400 Body height 162.6 cm Bhanu FUCHS Work Phone: [facility] 08-21-2024 10:31-0400 Body mass index (BMI) [Ratio] 33.81 kg/m2 Bhanu Ivannavid DPM FACFAS Work Phone: [facility] 08-21-2024 10:31-0400 Body weight 89.36 kg Bhanu Ramirez DPM FACFAS Work Phone: [facility] 08-21-2024 10:31-0400 Diastolic blood pressure 69 mm[Hg] Bhanu Ivannavid DPM FACFAS Work Phone: [facility] 08-21-2024 10:31-0400 Heart rate 70 /min Bhanu Ramirez DPM FACFAS Work Phone: [facility] 08-21-2024 10:31-0400 Systolic blood pressure 114 mm[Hg] Bhanu Ramirez DPM FACFAS Work Phone: [facility] 08-09-2024 09:36-0400 Body height 163.8 cm Eve Haque DIRECTOR [employer] Work Phone: [facility] 08-09-2024 09:36-0400 Body mass index (BMI) [Ratio] 31.45 kg/m2 Eve Haque DIRECTOR [employer] Work Phone: [facility] 08-09-2024 09:36-0400 Body weight 84.37 kg Eve Haqeu DIRECTOR [employer] Work Phone: [facility] 08-09-2024 09:36-0400 Diastolic blood pressure 92 mm[Hg] Eve Haque DIRECTOR [employer] Work Phone: [facility] 08-09-2024 09:36-0400 Heart rate 69 /min Eve Haque DIRECTOR [employer] Work Phone: [facility] 08-09-2024 09:36-0400 Respiratory rate 16 /min Eve Haque DIRECTOR [employer] Work Phone: [facility] 08-09-2024 09:36-0400 Systolic blood pressure 124 mm[Hg] Eve Haque DIRECTOR [employer] Work Phone: [facility] 08-07-2024 14:12-0400 Body height 163.8 cm Linn Red MD Work Phone: [facility] 08-07-2024 14:12-0400 Body mass index (BMI) [Ratio] 31.54 kg/m2 Linn Red MD Work Phone: [facility] 08-07-2024 14:12-0400 Body weight 84.64 kg Linn Red MD Work Phone: [facility] 08-07-2024 14:12-0400 Diastolic blood pressure 68 mm[Hg] Linn Red MD Work Phone: [facility] 08-07-2024 14:12-0400 Systolic blood pressure 114 mm[Hg] Linn Rde MD Work Phone: [facility] 08-07-2024 09:53-0400 Body height 162.6 cm Bhanu Lovece DPM FACFAS Work Phone: [facility] 08-07-2024 09:53-0400 Body mass index (BMI) [Ratio] 33.81 kg/m2 Bhanu Dolce DPM FACFAS Work Phone: [facility] 08-07-2024 09:53-0400 Body weight 89.36 kg Bhanu Dolce DPM FACFAS Work Phone: [facility] 08-07-2024 09:53-0400 Diastolic blood pressure 68 mm[Hg] Bhanu Dolce DPM FACFAS Work Phone: [facility] 08-07-2024 09:53-0400 Heart rate 71 /min Bhanu Dolce DPM FACFAS Work Phone: [facility] 08-07-2024 09:53-0400 Systolic blood pressure 112 mm[Hg] Bhanu Dolce DPM FACFAS Work Phone: [facility] 07-18-2024 10:55-0400 Body height 162.6 cm Bhanu Dolce DPM FACFAS Work Phone: [facility] 07-18-2024 10:55-0400 Body mass index (BMI) [Ratio] 33.81 kg/m2 Bhanu Dolce DPM FACFAS Work Phone: [facility] 07-18-2024 10:55-0400 Body weight 89.36 kg Bhanu Dolce DPM FACFAS Work Phone: [facility] 07-18-2024 10:55-0400 Diastolic blood pressure 66 mm[Hg] Bhanu Dolce DPM FACFAS Work Phone: [facility] 07-18-2024 10:55-0400 Heart rate 72 /min Bhanu Dolce DPM FACFAS Work Phone: [facility] 07-18-2024 10:55-0400 Systolic blood pressure 110 mm[Hg] Bhanu Dolce DPM FACFAS Work Phone: [facility] 2024 10:23-0400 Body height 162.6 cm Bhanu Dolce DPM FACFAS Work Phone: [facility] 2024 10:23-0400 Body mass index (BMI) [Ratio] 33.81 kg/m2 Bhanu Dolce DPM FACFAS Work Phone: [facility] 2024 10:23-0400 Body weight 89.36 kg Bhanu Dolce DPM FACFAS Work Phone: [facility] 2024 10:23-0400 Diastolic blood pressure 68 mm[Hg] Bhanu Dolce DPM FACFAS Work Phone: [facility] 2024 10:23-0400 Heart rate 75 /min Bhanu Dolce DPM FACFAS Work Phone: [facility] 2024 10:23-0400 Systolic blood pressure 108 mm[Hg] Bhanu Dolce DPM FACFAS Work Phone: [facility] 06-13-2024 13:33-0400 Body height 165.1 cm Zaid MONTANEZ Work Phone: [facility] 06-13-2024 13:33-0400 Body mass index (BMI) [Ratio] 32.05 kg/m2 Zaid Jama DIRECTOR [employer] Work Phone: [facility] 06-13-2024 13:33-0400 Body weight 87.36 kg Zaid Jama DIRECTOR [employer] Work Phone: [facility] 06-13-2024 13:33-0400 Diastolic blood pressure 72 mm[Hg] Zaid Jama DIRECTOR [employer] Work Phone: [facility] 06-13-2024 13:33-0400 Systolic blood pressure 116 mm[Hg] Zaid Jama DIRECTOR [employer] Work Phone: [facility] 06-04-2024 10:33-0400 Body height 162.6 cm Valentina Dukes PA Work Phone: [facility] 06-04-2024 10:33-0400 Body mass index (BMI) [Ratio] 33.81 kg/m2 Valentina Dukes PA Work Phone: [facility] 06-04-2024 10:33-0400 Body weight 89.36 kg Valentina Dukes PA Work Phone: [facility] 06-04-2024 10:33-0400 Diastolic blood pressure 72 mm[Hg] Valentina Dukes PA Work Phone: [facility] 06-04-2024 10:33-0400 Heart rate 73 /min Valentina Dukes PA Work Phone: [facility] 06-04-2024 10:33-0400 Respiratory rate 16 /min Valentina Dukes PA Work Phone: [facility] 06-04-2024 10:33-0400 SaO2% (BldA) [Mass fraction] 96 % Valentina Dukes PA Work Phone: [facility] 06-04-2024 10:33-0400 Systolic blood pressure 104 mm[Hg] Valentina Dukes PA Work Phone: [facility] 02-29-2024 11:05-0500 Body mass index (BMI) [Ratio] 31.24 kg/m2 Damien Jones SHOWPLACE MANAGER Work Phone: [facility] 02-29-2024 11:05-0500 Body weight 82.56 kg Damien Jones SHOWPLACE MANAGER Work Phone: [facility] 02-29-2024 11:05-0500 Diastolic blood pressure 82 mm[Hg] Damien Jones SHOWPLACE MANAGER Work Phone: [facility] 02-29-2024 11:05-0500 Heart rate 84 /min Damien Jones SHOWPLACE MANAGER Work Phone: [facility] 02-29-2024 11:05-0500 Systolic blood pressure 142 mm[Hg] Damien Jones SHOWPLACE MANAGER Work Phone: [facility] 02-28-2024 09:30-0500 Body height 162.6 cm Bhanu Dolce DPM FACFAS Work Phone: [facility] 02-28-2024 09:30-0500 Body mass index (BMI) [Ratio] 31.58 kg/m2 Bhanu Dolce DPM FACFAS Work Phone: [facility] 02-28-2024 09:30-0500 Body weight 83.46 kg Bhanu Dolce DPM FACFAS Work Phone: [facility] 02-28-2024 09:30-0500 Diastolic blood pressure 82 mm[Hg] Bhanu Dolce DPM FACFAS Work Phone: [facility] 02-28-2024 09:30-0500 Heart rate 71 /min Bhanu Dolce DPM FACFAS Work Phone: [facility] 02-28-2024 09:30-0500 Systolic blood pressure 132 mm[Hg] Bhanu Lovece DPM FACFAS Work Phone: [facility] 02-01-2024 09:00-0500 Body height 165.1 cm Penny Denton RN [facility] 02-01-2024 09:00-0500 Body mass index (BMI) [Ratio] 31.72 kg/m2 Penny Denton RN [facility] 02-01-2024 09:00-0500 Body weight 86.46 kg [facility] 12-15-2023 09:17-0400 Body temperature 98.2 [degF] [facility] 12-15-2023 09:17-0400 Respiratory rate 0 /min [facility]ica[facility] VELEZ [facility] 12-15-2023 09:16-0400 Diastolic blood pressure 90 mm[Hg] [facility]ica[facility]LEZ [facility] 12-15-2023 09:16-0400 Heart rate 84 /min [facility]icaela VELEZ [facility] 12-15-2023 09:16-0400 SaO2% (BldA) [Mass fraction] 95 % Micaela VELEZ [facility] 12-15-2023 09:16-0400 Systolic blood pressure 125 mm[Hg] Micaela VELEZ Work [facility]: [facility] 11-09-2023 09:19-0400 Body height 162.6 cm Bhanu Dolce DPM FACFAS Work Phone: [facility] 11-09-2023 09:19-0400 Body mass index (BMI) [Ratio] 31.58 kg/m2 Bhanu Dolce DPM FACFAS Work Phone: [facility] 11-09-2023 09:19-0400 Body weight 83.46 kg Bhanu Dolce DPM FACFAS Work Phone: [facility] 11-09-2023 09:19-0400 Diastolic blood pressure 80 mm[Hg] Bhanu Dolce DPM FACFAS Work Phone: [facility] 11-09-2023 09:19-0400 Heart rate 68 /min Bhanu Lovece DPM FACFAS Work Phone: [facility] 11-09-2023 09:19-0400 Systolic blood pressure 130 mm[Hg] Bhanu Lovece DPM FACFAS Work Phone: [facility] 10-27-2023 09:37-0400 Diastolic blood pressure 62 mm[Hg] Case Melchor MD Work Phone: [facility] 10-27-2023 09:37-0400 Heart rate 65 /min Case Melchor MD Work Phone: [facility] 10-27-2023 09:37-0400 Systolic blood pressure 102 mm[Hg] Case Melchor MD Work Phone: [facility] 10-27-2023 09:34-0400 Body weight 83.46 kg Case Melchor MD Work Phone: [facility] 08-06-2023 22:14-0400 Diastolic blood pressure 81 mm[Hg] DIRECTOR [employer] SCI[employer] Venita Saffle Work Phone: [facility] 08-06-2023 22:14-0400 Heart rate 85 /min DIRECTOR [employer] Venita Saffle Work Phone: [facility] 08-06-2023 22:14-0400 Respiratory rate 22 /min DIRECTOR [employer] Venita Saffle Work Phone: [facility] 08-06-2023 22:14-0400 SaO2% (BldA) [Mass fraction] 100 % DIRECTOR [employer] Venita Saffle Work Phone: [facility] 08-06-2023 22:14-0400 Systolic blood pressure 142 mm[Hg] DIRECTOR [employer] Venita Saffle Work Phone: [facility] 08-06-2023 19:54-0400 Body height 163.83 cm DIRECTOR [employer] Venita Saffle Work Phone: [facility] 08-06-2023 19:54-0400 Body temperature 98.2 [degF] DIRECTOR [employer] Venita Saffle Work Phone: [facility] 08-06-2023 19:54-0400 Body weight 82 kg DIRECTOR [employer] Venita Saffle Work Phone: [facility] 07-28-2023 14:10-0400 Diastolic blood pressure 80 mm[Hg] Case Melchor MD Work Phone: [facility] [employer] [facility] 07-28-2023 14:10-0400 Heart rate 75 /min Case Melchor MD Work Phone: [facility] [employer] [facility] 07-28-2023 14:10-0400 Systolic blood pressure 110 mm[Hg] Case Melchor MD Work Phone: [facility] [employer] [facility] 07-28-2023 14:07-0400 Body weight 80.74 kg Case Melchor MD Work Phone: [facility] [employer] 07-28-2023 14:07-0400 SaO2% (BldA) [Mass fraction] 100 % Case Melchor MD Work Phone: [facility] [employer] [facility] 06-01-2023 12:00-0400 Body temperature 97.3 [degF] DIRECTOR [employer] Venita Saffle Work Phone: [facility] 06-01-2023 12:00-0400 Diastolic blood pressure 81 mm[Hg] DIRECTOR [employer] Venita Saffle Work Phone: [facility] 06-01-2023 12:00-0400 Heart rate 82 /min DIRECTOR [employer] Venita Saffle Work Phone: [facility] 06-01-2023 12:00-0400 Respiratory rate 18 /min DIRECTOR [employer] Venita Saffle Work Phone: [facility] 06-01-2023 12:00-0400 SaO2% (BldA) [Mass fraction] 98 % DIRECTOR [employer] Venita Saffle Work Phone: [facility] 06-01-2023 12:00-0400 Systolic blood pressure 137 mm[Hg] DIRECTOR [employer] Venita Saffle Work Phone: [facility] 06-01-2023 06:00-0400 Body weight 82 kg DIRECTOR [employer] Venita Saffle Work Phone: [facility] 05-30-2023 12:46-0400 Body height 165.1 cm IMAN Amanda Work Phone: [facility] 05-29-2023 16:36-0400 Diastolic blood pressure 98 mm[Hg] [facility] 05-29-2023 16:36-0400 Systolic blood pressure 148 mm[Hg] [facility] 05-29-2023 15:48-0400 Body temperature 98.1 [degF] [facility] 05-29-2023 15:48-0400 Heart rate 90 /min [facility] 05-29-2023 15:48-0400 Respiratory rate 18 /min [facility] 05-29-2023 15:48-0400 SaO2% (BldA) [Mass fraction] 96 % [facility] 05-29-2023 13:05-0400 Body height 165.1 cm [facility] 05-29-2023 13:05-0400 Body weight 81.6 kg [facility] Encounters Encounter Date Encounter Type Care Provider Facility Start: 09-21-2024 ambulatory UNKNOWN PROVIDER Facili ty:[facility] Start: 09-04-2024 End: 09-04-2024 Office outpatient visit 15 minutes Linn Red MD Work Phone: [facility] Comment on above: Mastodynia, female ( Primary Dx) Start: 09-04-2024 End: 09-04-2024 ambulatory LINN RED [facility] Start: 08-28-2024 [facility] Start: 08-23-2024 End: 08-23-2024 ambulatory Lio Mñuoz [facility] Work Phone: Start: 08-23-2024 End: 08-23-2024 Departed Referred Lio Muñoz DO -LAB [facility] Start: 08-21-2024 End: 08-21-2024 Bamboo flowsheet Bhanu Ramirez DPM FACFAS Work Phone: [facility] Start: 08-21-2024 End: 08-21-2024 Bamboo flowsheet Bhanu D Dolce DPM FACFAS Work Phone: [facility] Start: 08-21-2024 End: 08-21-2024 Office outpatient visit 15 minutes Bhanu D Dolce DPM FACFAS Work Phone: [facility] Comment on above: Exostosis of right f oot (Primary Dx); Other enthesopathy of right foot and ankle; Right foot pain Start: 08-21-2024 End: 08-21-2024 ambulatory BHANU D DOLCE Not Available Start: 08-09-2024 End: 08-09-2024 ambulatory [facility] Start: 08-09-2024 End: 08-09-2024 Office outpatient new 30 minutes Eve Haque DIRECTOR [employer] MAN Work Phone: [facility] Comment on above: Mass of right breast , unspecified quadrant (Primary Dx); Breast skin changes; Mastodynia, female Start: 08-09-2024 End: 08-09-2024 ambulatory [facility] Start: 08-08-2024 End: 08-08-2024 Admission to same day surgery center Risa Black DDS Work Phone: [facility] Start: 08-07-2024 End: 08-07-2024 Office outpatient visit 15 minutes Linn Red MD Work Phone: [facility] Comment on above: Mastodynia, female ( Primary Dx); Mass of right breast, unspecified quadrant Start: 08-07-2024 End: 08-07-2024 ambulatory [facility] Start: 08-07-2024 End: 08-07-2024 Bamboo flowsheet Bhanu D Dolce DPM FACFAS Work Phone: [facility] Start: 08-07-2024 End: 08-07-2024 Bamboo flowsheet Bhanu D Dolce DPM FACFAS Work Phone: [facility] Start: 08-07-2024 End: 08-07-2024 Office outpatient visit 15 minutes Bhanu Ann Dolce DPM FACFAS Work Phone: [facility] Comment on above: Exostosis of right f oot (Primary Dx); Other enthesopathy of right foot and ankle; Pain in right toe(s); Right foot pain; Onychomycosis; Pain in left toe(s) Start: 08-07-2024 End: 08-07-2024 ambulatory BHANU D DOLCE Not Available Start: 07-18-2024 End: 07-18-2024 Bamboo flowsheet Bhanu Ann Dolce DPM FACFAS Work Phone: [facility] Start: 07-18-2024 End: 07-18-2024 Bamboo flowsheet Bhanu Ann Dolce DPM FACFAS Work Phone: [facility] Start: 07-18-2024 End: 07-18-2024 Office outpatient visit 15 minutes Bhanu Ann Lovece DPM FACFAS Work Phone: [facility] Comment on above: Abscess, toe, left ( Primary Dx); Onychocryptosis Start: 07-18-2024 End: 07-18-2024 ambulatory BHANU D DOLCE Not Available Start: 2024 End: 2024 Bamboo flowsheet Bhanu D Dolce DPM FACFAS Work Phone: [facility] Start: 2024 End: 2024 Bamboo flowsheet Bhanu D Dolce DPM FACFAS Work Phone: [facility] Start: 2024 End: 2024 Office outpatient visit 15 minutes Bhanu D Dolce DPM FACFAS Work Phone: [facility] Comment on above: Onychocryptosis (Bertha jack Dx); Pain in left toe(s); Abscess, toe, left Start: 2024 End: 2024 ambulatory BHANU D DOLCE Not Available Start: 06-13-2024 End: 06-13-2024 Manual pelvic examination [facility] DIRECTOR [employer] SCI[employer]-CNM Work Phone: [facility] Work Phone: Start: 06-13-2024 End: 06-13-2024 [facility] [employer]-CN[employer] Work Phone: [facility] Comment on above: Encounter for breast and pelvic examination (Primary Dx) Start: 06-13-2024 End: 06-13-2024 ambulatory [facility] Start: 06-13-2024 Encounter for gynecological examination (general) (routine) without abnormal findings [facility] Start: 06-04-2024 End: 06-04-2024 Bamboo flowsheet Valentina PYLE Work Phone: [facility] Start: 06-04-2024 End: 06-04-2024 Bamboo flowsheet Valentina PYLE Work Phone: [facility] Start: 06-04-2024 End: 06-04-2024 Office outpatient visit 15 minutes Valentina PYLE Work Phone: [facility] Comment on above: Convulsions, unspeci fied convulsion type (CMS/HCC) (Primary Dx); Hyponatremia; Developmental delay; Anger reaction Start: 06-04-2024 End: 06-04-2024 ambulatory VALENTINA DUKES Not Available Start: 05-08-2024 End: 05-08-2024 ambulatory BHANU RAMIREZ Not Available Start: 02-29-2024 End: 02-29-2024 Bamboo flowsheet Damien Jones SHOWPLACE MANAGER Work Phone: [facility] Start: 02-29-2024 End: 02-29-2024 Bamboo flowsheet Damien Jones SHOWPLACE MANAGER Work Phone: [facility] Start: 02-29-2024 End: 02-29-2024 Office outpatient visit 25 minutes Damien Jones NP Work Phone: [facility] Comment on above: Convulsions, unspeci fied convulsion type (CMS/HCC) (Primary Dx); Hyponatremia; Developmental delay; Anger reaction Start: 02-29-2024 End: 02-29-2024 ambulatory DAMIEN JONES Not Available Start: 02-28-2024 End: 02-28-2024 Bamboo flowsheet Bhanu Ann Ramirez DPM FACFAS Work Phone: [facility] Start: 02-28-2024 End: 02-28-2024 Bamboo flowsheet Bhanu Ann Dolce DPM FACFAS Work Phone: [facility] Start: 02-28-2024 End: 02-28-2024 Patient encounter procedure Bhanu Ann Ramirez DPM FACFAS Work Phone: [facility] Comment on above: Onychomycosis (Prima ry Dx); Pain in right toe(s); Pain in left toe(s) Start: 02-28-2024 End: 02-28-2024 ambulatory BHANU RAMIREZ Not Available Start: 02-23-2024 End: 02-27-2024 Patient encounter procedure Sabra Frias DMD Work Phone: [facility] Start: 02-23-2024 End: 02-27-2024 ambulatory UNKNOWN PROVIDER Facility:[facility] Start: 02-14-2024 End: 02-14-2024 Telephone encounter Megha Sanchez RN [facility] Pre-Admission Testing Start: 02-01-2024 End: 02-01-2024 Nursing evaluation of patient and report Penny Denton RN [facility] Pre-Admission Testing Comment on above: Pre-op evaluation (P rimary Dx) Start: 02-01-2024 End: 02-01-2024 Preprocedural examination done Penny Denton RN [facility] Start: 02-01-2024 ambulatory UNKNOWN PROVIDER Facili ty:[facility] Start: 02-01-2024 Encounter for other preprocedural examination UNKNOWN PROVIDER [facility] Start: 01-07-2024 End: 01-07-2024 Letter encounter [facility] Start: 12-15-2023 End: 12-19-2023 ambulatory MARLENI ALEJANDRO Facility:[facility] Start: 12-15-2023 End: 12-15-2023 Anesthesia consultation Orquidea Florez MD Work Phone: [facility] Start: 12-15-2023 End: 12-15-2023 Patient encounter procedure Marleni Alejandro DDS Work Phone: [facility] Comment on above: Caries (Primary Dx) Start: 12-09-2023 End: 12-09-2023 Bamboo flowsheet Ivory A Felter DIRECTOR LIFE SCIENCES-LOCATION MAN Work Phone: [facility] Start: 12-09-2023 End: 12-09-2023 Bamboo flowsheet Ivory A Felter DIRECTOR LIFE SCIENCES-LOCATION MAN Work Phone: [facility] Start: 12-09-2023 End: 12-09-2023 Office outpatient new 30 minutes Ivory A Felter DIRECTOR LIFE SCIENCES-LOCATION MAN Work Phone: [facility] Comment on above: Lip licking dermatit is Start: 12-09-2023 End: 12-09-2023 ambulatory IVORY A FELTER Not Available Start: 11-23-2023 End: 11-23-2023 Telephone encounter Idania Campbell RN [facility] Pre-Admission Testing Comment on above: PAT (Anesthesia cons ent obtained) Start: 11-23-2023 ambulatory UNKNOWN PROVIDER Facili ty:[facility] Start: 11-09-2023 End: 11-09-2023 Bamboo flowsheet Bhanu [...] 25 minutes Case Melchor MD Work Phone: [facility] Comment on above: Hyponatremia (Primar y Dx) Start: 10-19-2023 End: 10-19-2023 Patient encounter procedure Lizandro Veronica DDS Work Phone: [facility] Comment on above: Caries (Primary Dx) Start: 10-19-2023 ambulatory LIZANDRO VERONICA Facility:[facility] Start: 09-15-2023 End: 09-15-2023 ambulatory DAMIEN JONES Not Available Start: 08-30-2023 End: 08-30-2023 ambulatory BHANU RAMIREZ Not Available Start: 08-06-2023 End: 08-07-2023 Emergency department patient visit DIRECTOR LIFE SCIENCES Venita Francoisnayananay Work Phone: [facility] Work Phone: Start: 08-01-2023 End: 08-01-2023 Telephone encounter Scanning Provider External N [facility] Start: 07-28-2023 End: 07-28-2023 Office outpatient new 45 minutes Case Melchor MD Work Phone: [facility] Comment on above: Hyponatremia (Primar y Dx) Start: 05-30-2023 End: 06-01-2023 Evaluation and management of inpatient DIRECTOR LIFE SCIENCES Venita Francoisfle Work Phone: [facility] Work Phone: Start: 05-29-2023 Evaluation and manag ement of inpatient [facility] [place] [facility] Work Phone: Start: 05-29-2023 observation encounter NON STAFF F [facility] Work Phone: Start: 05-29-2023 End: 06-01-2023 Non-patient / [facility]-visit [facility] Work Phone: Start: 05-25-2023 Orders Only Case perez MD Work Phone: [facility] Comment on above: Hyponatremia (Primar y Dx) Start: 04-13-2023 End: 04-14-2023 ambulatory LIO MUÑOZ [facility] Start: 04-13-2023 End: 04-13-2023 Lab Drop off LIO MUÑOZ [facility] Start: 02-23-2023 End: 02-23-2023 Lab Drop off LIO MUÑOZ [facility] Start: 02-23-2023 End: 02-24-2023 ambulatory LIO MUÑOZ [facility] Start: 07-21-[address] LIO MUÑOZ Fac ility:[facility] Start: 06-10-2022 End: 06-14-2022 Patient encounter procedure Scarlett Albarran DDS Work Phone: [facility] Start: 05-17-2022 End: 05-17-[address] LIO MUÑOZ Facility: Start: 04-28-2022 End: 04-28-[address] SONAL CARRERO . Facility: Start: 04-06-2022 [facility] Start: 05-08-2018 End: 05-12-2018 Patient encounter procedure PROVIDER NOT IN SYSTEM [facility] Procedures Date Procedure Procedure Detail Performing Clinician Start: 09-04-2024 Follow-up visit Follow-up LINN RED Start: 06-13-2024 Microscopic observat ion [Identifier] in Cervix by Cyto stain Zaid MONTANEZ Work Phone: Start: 08-06-2023 SARS-CoV-2, Influenz a & RSV (PCR) IMAN Amanda Work Phone: Start: 05-29-2023 CT of facial bones w ith contrast Start: 05-29-2023 Blood culture for bacteria, including anaerobic screen IMAN Amanda Work Phone: Plan of Treatment Date Care Activity Detail Author Start: 2036 Shingles (RZV) Vacci ne (1 of 2) Shingles (RZV) Vaccine (1 of 2) [facility] Start: 11-11-2029 DTaP,Tdap and Td Vaccines (7 - Td or Tdap) DTaP,Tdap and Td Vaccines (7 - Td or Tdap) [facility] Start: 11-11-2029 Tetanus vaccination Tetanus (T d or Tdap) Booster [facility] Start: 06-14-2027 Screening for malign ant neoplasm of cervix Pap Smear [facility] Start: 08-09-2025 Adult BMI Screening Adult BMI Screen ing [facility] Start: 08-09-2025 Tobacco Screening Tobacco Screening [facility] Start: 08-07-2025 Adult BMI Screening Adult BMI Screen ing [facility] Start: 08-07-2025 Tobacco Screening Tobacco Screening [facility] Start: 06-13-2025 Adult BMI Screening Adult BMI Screen ing [facility] Start: 06-13-2025 Tobacco Screening Tobacco Screening [facility] Start: 11-20-2024 End: 11-20-2024 Patient encounter procedure 11/20/2024 11:00 AM EDT [facility] [address] [place] [address] Abby Bauman PA [address] [place] [address] [facility] Start: 11-14-2024 End: 11-14-2024 Patient encounter procedure 11/14/2024 9:00 AM EDT Procedure Visit [facility] [address] [place] [phone] Bhanu Ramirez, DPM FACFAS [address] [facility] [place] [address] [facility] Start: 11-06-2024 End: 11-06-2024 Patient encounter procedure 11/06/2024 9:40 AM EDT Procedure Visit [facility] [address] [facility] [place] [address] Bhanu Ramirez, DPM FACFAS [address] [facility] [place] [address] [facility] Start: 10-22-2024 Influenza vaccination P [facility] Start: 10-17-2024 End: 10-17-2024 Patient encounter procedure 10/17/2024 8:40 AM EDT Office Visit [facility] [address] [place] [phone] Migdalia Mike NP [address] [place] [address] [facility] Start: 09-04-2024 End: 09-04-2024 Patient encounter procedure 09/04/2024 10:00 AM EDT Office Visit [facility]ly [facility] [place] [id number] Linn Red MD [address] [place] [address] [facility] Start: 08-27-2024 End: 08-27-2024 Patient encounter procedure 08/27/2024 10:20 AM EDT Office Visit [facility] [address] [place] [phone] Valentina Dukes PA [address] [place], [place] [id number] [facility] Start: 08-23-2024 Urine culture [facility] Start: 08-23-2024 Bacteria identified in Urine by Culture Urine Culture [facility] Start: 08-21-2024 End: 08-21-2024 Clinical Support [facility] Comment on above: Arrived Start: 08-07-2024 End: 08-07-2025 MG Breast duct - right Views W contrast intra duct Mammography diagnostic unilateral right with CAD Imaging Routine Mastodynia, female Mass of right breast, unspecified quadrant Expected: 08/07/2024, Expires: 08/07/2025 [employer] Object Phone: Comment on above: Expected: 08/07/2024 , Expires: 08/07/2025 Start: 08-07-2024 End: 08-07-2025 MR Breast - bilateral WO and W contrast IV MR bilateral breast with and without contrast with CAD Imaging Routine Mastodynia, female Mass of right breast, unspecified quadrant Expected: 08/07/2024, Expires: 08/07/2025 [employer] Comment on above: Expected: 08/07/2024 , Expires: 08/07/2025 Start: 08-07-2024 End: 08-07-2025 US Breast - right limited Ultrasound breast limited right Imaging Routine Mastodynia, female Mass of right breast, unspecified quadrant Expected: 08/07/2024, Expires: 08/07/2025 [employer] Comment on above: Expected: 08/07/2024 , Expires: 08/07/2025 Start: 08-07-2024 End: 08-07-2024 Patient encounter procedure [facility] Comment on above: Arrived Start: 07-18-2024 End: 07-18-2024 Patient encounter procedure [facility] Comment on above: Arrived Start: 2024 End: 2024 Patient encounter procedure 2024 10:20 AM EDT Office Visit [facility] [address] [facility] [facility] [address] Bhanu Ramirez, DPM FACFAS [address] [place] [address] Arrived [facility] Comment on above: Arrived Start: 06-04-2024 End: 06-04-2024 Patient encounter procedure 06/04/2024 10:40 AM EDT Office Visit [facility] [address] [place] [phone] Valentina Dukes PA [address] [place] [address] Arrived [facility] Comment on above: Arrived Start: 05-17-2024 End: 05-17-2024 Patient encounter procedure 05/17/2024 8:40 AM EDT Office Visit [facility] [address] [place] [address] Damien Jones NP [address] [place] [address] [facility] Start: 05-08-2024 End: 05-08-2024 Patient encounter procedure 05/08/2024 9:30 AM EDT Procedure Visit [facility] [address] [place] [address] Bhanu Ramirez, DPM FACFAS [address] [place] [address] [facility] Start: 02-29-2024 End: 02-29-2024 Patient encounter procedure [facility] [place] [address] Comment on above: Arrived Start: 02-28-2024 End: 02-28-2024 Patient encounter procedure [facility] Comment on above: Arrived Start: 02-23-2024 End: 02-23-2024 Patient encounter procedure 02/23/2024 10:50 AM EST Procedure Visit [facility] [address] [place] [address] Sabra Frias DMD [address] [place] [address] [facility] Start: 02-01-2024 End: 02-01-2024 Nursing evaluation of patient and report 02/01/2024 9:00 AM EST Nurse Visit [facility] Pre-Admission Testing [address] [place] [address] Penny Denton, VISHNU [address] [place] [address] [facility] Pre-Admission Testing Start: 12-15-2023 End: 12-15-2023 Patient encounter procedure 12/15/2023 12:00 PM EDT Procedure Visit [facility] [address] [place] [address] Sabra Frias DMD [address] [place] [address] [facility] Start: 12-09-2023 End: 12-09-2023 Patient encounter procedure 12/09/2023 12:40 PM EDT Office Visit [facility] [address] [place] [address] Ivory Hannah APRN-LOCATION MAN [address] [place] [address] Arrived [facility] Comment on above: Arrived Start: 11-22-2023 Influenza vaccination Influenza Vacc ine (#1) [facility] Start: 10-27-2023 End: 10-27-2023 Patient encounter procedure 10/27/2023 9:30 AM EDT Office Visit [facility] [address] [place] [address] Case Melchor MD [address] [facility] [address] [place] [address] [facility] Start: 10-23-2023 COVID-19 Vaccine ( season) COVID-19 Vaccine ( season) [facility] Start: 10-23-2023 COVID-19 Vaccine ( season) COVID-19 Vaccine ( season) [facility] Start: 10-23-2023 Influenza vaccination [facility] Start: 08-06-2023 CT of head without contrast CT head/brain [facility] Start: 08-06-2023 CT Unspecified body region WO contrast [facility] Start: 08-06-2023 Diagnostic radiograp hy of abdomen [facility] Start: 08-06-2023 Bacteria identified in Urine by Culture [facility] Start: 07-28-2023 End: 07-28-2023 Patient encounter procedure 07/28/2023 2:30 PM EDT Office Visit N [facility] [address] [place] [address] Case Melchor MD [address] [place] [address] [facility] Start: 07-28-2023 End: 07-20-2024 Cortisol Cortisol Lab Routine Hyponatremia Expected: 07/28/2023 (Approximate), Expires: 07/20/2024 [facility] Work Phone: Comment on above: Expected: 07/28/2023 (Approximate), Expires: 07/20/2024 Start: 07-28-2023 End: 07-20-2024 Osmolality of Serum or Plasma Osmolality Lab Routine Hyponatremia Expected: 07/28/2023 (Approximate), Expires: 07/20/2024 [facility] Comment on above: Expected: 07/28/2023 (Approximate), Expires: 07/20/2024 Start: 07-28-2023 End: 07-20-2024 Osmolality, urine Osmolality, urine Lab Routine Hyponatremia Expected: 07/28/2023 (Approximate), Expires: 07/20/2024 [facility] Comment on above: Expected: 07/28/2023 (Approximate), Expires: 07/20/2024 Start: 07-28-2023 End: 07-20-2024 TSH with Reflex TSH with Reflex Lab Routine Hyponatremia Expected: 07/28/2023 (Approximate), Expires: 07/20/2024 [facility] Comment on above: Expected: 07/28/2023 (Approximate), Expires: 07/20/2024 Start: 07-28-2023 End: 07-20-2024 Urate [Mass/volume] in Serum or Plasma Uric acid Lab Routine Hyponatremia Expected: 07/28/2023 (Approximate), Expires: 07/20/2024 [facility] Comment on above: Expected: 07/28/2023 (Approximate), Expires: 07/20/2024 Start: 06-09-2023 End: 06-09-2023 Patient encounter procedure 06/09/2023 10:00 AM EDT Office Visit [facility] [address] [place] [address] [facility] Start: 06-08-2023 [facility] Start: 06-07-2023 [facility] Start: 06-06-2023 [facility] Start: 06-05-2023 [facility] Start: 06-04-2023 [facility] Start: 06-03-2023 [facility] Start: 06-02-2023 [facility] Start: 06-01-2023 End: 06-01-2023 [facility] Start: 05-31-2023 [facility] Start: 05-30-2023 Comprehensive metabo lic 2000 panel - Serum or Plasma [facility] Start: 05-30-2023 End: 05-30-2023 [facility] Start: 05-29-2023 Hospital admission [facility] Start: 05-29-2023 [facility] Start: 05-29-2023 Bacteria identified in Blood by Culture [facility] Start: 05-29-2023 Blood culture for bacteria, including anaerobic screen Blood Culture [facility] Start: 05-29-2023 [facility] Start: 10-22-2022 COVID-19 Vaccine ( season) COVID-19 Vaccine () [facility] Start: 05-03-2022 End: 05-03-2022 Patient encounter procedure 05/03/2022 Procedure Visit Dentistry Holli Nguyen, HALINA [address] [place] [address] [facility] Start: 11-21-2021 Influenza vaccination Influenza Vacc ine (#1) [facility] Start: 02-11-2021 COVID-19 Vaccine (4 - Booster for Pfizer series) COVID-19 Vaccine (4 - Booster for Pfizer series) [facility] Start: 2016 Screening for malign ant neoplasm of cervix [facility] Start: 2013 HPV Vaccine (optiona l start 27-45 years) HPV Vaccine (optional start 27-45 years) [facility] Start: 04-21-2008 Annual wellness visit Annual W ellness Visit (G0438) [facility] Start: 07-05-2007 Screening for malign ant neoplasm of cervix [facility] Start: 2005 DTaP,Tdap and Td Vaccines (1 - Tdap) DTaP,Tdap and Td Vaccines (1 - Tdap) [facility] Start: 2005 Hepatitis A (HAV) Vaccine (optional start 19+ years) Hepatitis A (HAV) Vaccine (optional start 19+ years) [facility] Start: 2004 Adult BMI Follow Up Plan Adult BMI Follow Up Plan [facility] Start: 2004 Adult BMI Screening Adult BMI Screen ing [facility] Start: 2004 Hepatitis C screening Hepatitis C An tibody [facility] Start: 2001 HIV screening HIV Test [facility] Start: 02-21-1999 Annual wellness visit Annual W ellness Visit (G0438) [facility] Start: 1998 Depression Screening Depression Scre ening [facility] Start: 1998 Tobacco Screening Tobacco Screening [facility] Start: 1986 Screening for malign ant neoplasm of breast [facility] End: 05-24-2024 Basic metabolic 2000 panel - Serum or Plasma Basic Metabolic Panel Lab Routine Hyponatremia 1 Occurrences starting 05/25/2023 until 05/24/2024 [facility] Work Phone: Comment on above: 1 Occurrences starti ng 05/25/2023 until 05/24/2024 End: 05-24-2024 CBC panel - Blood by Automated count CBC without diff Lab Routine Hyponatremia 1 Occurrences starting 05/25/2023 until 05/24/2024 [facility] Comment on above: 1 Occurrences starti ng 05/25/2023 until 05/24/2024 Cefuroxime free [Mass/volume] in Serum or Plasma [facility] DENTAL RESTORATIONS DENTAL SILVIA RATIONS Routine scheduled Caries [facility] End: 05-24-2024 Magnesium [Mass/volume] in Serum or Plasma Magnesium Lab Routine Hyponatremia 1 Occurrences starting 05/25/2023 until 05/24/2024 [facility] Comment on above: 1 Occurrences starti ng 05/25/2023 until 05/24/2024 Patient Education Constipation, Adult (DC) Headache, Adult (DC) [facility] Work Phone: Patient referral [facility] Work Phone: End: 05-24-2024 Phosphate [Mass/volume] in Serum or Plasma Phosphorus Lab Routine Hyponatremia 1 Occurrences starting 05/25/2023 until 05/24/2024 [facility] Comment on above: 1 Occurrences starti ng 05/25/2023 until 05/24/2024 End: 05-24-2024 Protein creat ratio Protein creat ratio Lab Routine Hyponatremia 1 Occurrences starting 05/25/2023 until 05/24/2024 [facility] Comment on above: 1 Occurrences starti ng 05/25/2023 until 05/24/2024 Sodium [Moles/volume ] in Serum or Plasma Sodium Lab Routine Hyponatremia Ordered: 02/29/2024 [facility] Work Phone: Comment on above: Ordered: 02/29/2024 End: 07-20-2024 Sodium, urine, random Sodium, urine, random Lab Routine Hyponatremia 1 Occurrences starting 07/28/2023 until 07/20/2024 [facility] Comment on above: 1 Occurrences starti ng 07/28/2023 until 07/20/2024 End: 05-24-2024 Urinalysis Urinalysis Lab Routine Hyponatremia 1 Occurrences starting 05/25/2023 until 05/24/2024 [facility] Comment on above: 1 Occurrences starti ng 05/25/2023 until 05/24/2024 Urine Creatinine,Rdm Urine Creat inine,Rdm Lab Routine Hyponatremia Ordered: 07/28/2023 [facility] Comment on above: Ordered: 07/28/2023 End: 12-15-2023 Urine test visual color cmprsn meths URINE HCG-IN OFFICE Lab Routine One time for 1 Occurrences starting 12/15/2023 until 12/15/2023 [employer] Work Phone: Comment on above: One time for 1 Occur rences starting 12/15/2023 until 12/15/2023 Immunizations Immunization Date Immunization Notes Care Provider [facility] 12-08-2023 influenza virus vaccine, unspecified formulation Ivory Hannah DIRECTOR [employer]-LOCATION MAN Work Phone: [facility] 12-08-2022 influenza virus vaccine, unspecified formulation Case Melchor MD Work Phone: [facility] 12-17-2020 influenza, injectabl e, quadrivalent, preservative free [facility] 12-17-2020 influenza virus vaccine, unspecified formulation [facility] 03-25-2020 Pfizer (12+ yrs) SARS-COV-2 (COVID-19) vaccine, mRNA, spike protein, LNP, pres. free, 30 mcg/0.3mL dose (LKF=[id number]) [facility] 03-04-2020 Pfizer (12+ yrs) SARS-COV-2 (COVID-19) vaccine, mRNA, spike protein, LNP, pres. free, 30 mcg/0.3mL dose (ZFG=818) [facility] 11-28-2019 influenza, injectabl e, quadrivalent, preservative free [facility] 11-12-2019 tetanus toxoid, redu naila diphtheria toxoid, and acellular pertussis vaccine, adsorbed [facility] 11-30-2017 influenza, injectabl e, quadrivalent, preservative free [facility] 12-15-2016 influenza, injectabl e, quadrivalent, contains preservative [facility] 12-12-2014 influenza, injectabl e, quadrivalent, preservative free [facility] 11-10-2010 influenza, seasonal, injectable [facility] 07-07-2006 meningococcal polysaccharide (groups A, C, Y and W-135) diphtheria toxoid conjugate vaccine (MCV4P) [facility] 11-29-2001 TD(adult) unspecifie d formulation [facility] 05-04-2001 hepatitis B vaccine, pediatric or pediatric/adolescent dosage [facility] 11-10-2000 hepatitis B vaccine, pediatric or pediatric/adolescent dosage [facility] 10-10-2000 hepatitis B vaccine, pediatric or pediatric/adolescent dosage [facility] 05-30-1998 measles, mumps and rubella virus vaccine [facility] 12-03-1991 TD(adult) unspecifie d formulation [facility] 12-03-1991 trivalent poliovirus vaccine, live, oral [facility] 09-06-1988 diphtheria, tetanus toxoids and pertussis vaccine [facility] 09-06-1988 trivalent poliovirus vaccine, live, oral [facility] 01-23-1988 haemophilus influenz ae type b vaccine, conjugate unspecified formulation [facility] 04-30-1987 measles, mumps and rubella virus vaccine [facility] 1986 diphtheria, tetanus toxoids and pertussis vaccine [facility] 1986 diphtheria, tetanus toxoids and pertussis vaccine [facility] 1986 trivalent poliovirus vaccine, live, [facility] 1986 diphtheria, tetanus toxoids and pertussis vaccine [facility] 1986 trivalent poliovirus vaccine, live, oral [facility] Payers Date Payer Category Payer Dental --Stand Alone DENTAL-MEDI CAID [id number] 2018 Medicaid [id number]. [id number] 2007 Medicare FFS MEDICARE [id number] 2006 Medicare [id number] [id number]. [id number] 1986 Unknown [id number] 2.16.840.1.167435.3.579.2.5 93 1986 Unknown [id number] 2.16.840.1.186147.3.579.2.5 93 1986 Unknown [id number] 2.16.840.1.573548.3.579.2.5 93 1986 Unknown [id number] 2.16.840.1.896692.3.579.2.7 27 1986 Unknown [id number] 2.16.840.1.822649.3.579.2.7 27 1986 Unknown [id number] 2.16.840.1.324628.3.579.2.1 286 1986 Unknown [id number] 2.16.840.1.867909.3.579.2.1 286 1986 Unknown [id number] 2.16.840.1.427798.3.579.2.1 286 1986 Unknown [id number] 2.16.840.1.236553.3.579.2.1 259 1986 Unknown [id number] 2.16.840.1.874038.3.579.2.1 259 1986 Unknown [id number] 2.16.840.1.707465.3.579.2.1 259 1986 Unknown [id number] 2.16.840.1.181932.3.579.2.1 259 1986 Unknown [id number] 2.16.840.1.946537.3.579.2.1 259 1986 Unknown [id number] 2.16.840.1.131132.3.579.2.1 259 1986 Unknown [id number] 2.16.840.1.059008.3.579.2.1 259 1986 Unknown [id number] 2.16.840.1.269074.3.579.2.1 259 1986 Unknown [id number] 2.16.840.1.106095.3.579.2.1 259 1986 Unknown [id number] 2.16.840.1.453561.3.579.2.1 259 1986 Unknown [id number] 2.16.840.1.702970.3.579.2.1 259 1986 Unknown [id number] 2.16.840.1.075854.3.579.2.1 259 1986 Unknown [id number] 2.16.840.1.280895.3.579.2.1 286 1986 Unknown [id number] 2.16.840.1.135891.3.579.2.1 286 1986 Unknown [id number] 2.16.840.1.697214.3.579.2.1 286 1986 Unknown [id number] 2.16.840.1.670515.3.579.2.7 32 1986 Unknown [id number] 2.16.840.1.023939.3.579.2.7 32 1986 Unknown [id number] 2.16.840.1.463415.3.579.2.7 32 1986 Unknown [id number] 2.16.840.1.117354.3.579.2.7 32 1986 Unknown [id number] 2.16.840.1.537241.3.579.2.7 32 1986 Unknown [id number] 2.16.840.1.268843.3.579.2.7 32 1986 Unknown [id number] 2.16.840.1.727041.3.579.2.7 32 1959 Medicaid [id number] 1958 Medicare [id number] Medicare Medicare [id number] Social History Date Type Detail Facility Start: 06-13-2020 End: 06-13-2024 Tobacco smoking status NHIS Never smoked tobacco [facility] Work Phone: Start: 06-13-2020 End: 06-13-2024 Tobacco use and exposure Smokeless tobacco non-user [facility] Start: 07-15-2020 End: 09-04-2024 Alcohol intake Lifetime non-drinker (finding) [facility] Start: 06-13-2020 History SDOH Alcohol Frequency 1 [facility] Start: 1985 Sex Assigned At Not on file [facility] Tobacco smoking status No Smoking Status Entered [facility] Start: 07-15-2020 End: 09-04-2024 Sex Assigned At Female [facility] Start: 1985 Sex Assigned At Female [facility] Start: 08-06-2023 Tobacco smoking status NHIS Unknown if ever smoked [facility] Start: 07-15-2020 End: 09-04-2024 History of Social function [facility] Start: 01-12-2012 End: 04-28-2023 Sex Female (finding) [facility] Start: 02-01-2024 Details of drug misuse behavior Has never misused drugs (situation) [facility] NEGATED: Highlighted row [facility] Goals Date Patient Goal Desired Activity /State Functional Status Date Assessment Result Facility 06-01-2023 Functional status Patient at Baseline [facility] Work Phone: Mental Status Date Assessment Result Facility 06-01-2023 Cognitive function Cognitive Sta tus Patient at Baseline [facility] Work Phone: Clinical Notes 06-10-2022 to 09-04-2024 Linn Red MD - 09/04/2024 10:00 AM EDErick Ramirez DPM [facility]ACFAS - 08/21/2024 10:30 AM Jayden Haque APRN-DESI - 08/09/2024 9:30 AM Rvaen Red MD - 08/07/2024 2:30 PM EDT Note Date & Type Note Facility 09-04-2024 History of Present illness Narrative Migdalia Card is a 39 y.o.female. No LMP recorded (lmp unknown).. She presents for follow up of breast imaging due to breast pain. Patient reports improvement with antibiotics. Patient reports no pain or burning. MRI was not obtained. OB History No obstetric history on file. RESULTS DISCUSSED: FINDINGS: There is no focal mass, architectural distortion or abnormal vascularity visualized. COMBINED IMPRESSION: No mammographic or sonographic evidence of malignancy. BI-RADS: BI-RADS 1 - Negative RECOMMENDATION: Follow up per ACR recommendations or as clinically indicated.. RISK ASSESSMENT: TC Lifetime risk: 12.68%. The patient's reported personal and family medical history was used calculate their Tyrer-Cuzick lifetime risk of malignancy. Scores less than 20% are not considered high risk per ACR guidelines and patient should continue with the above recommendation. MEDICAL HX Past Medical History: Diagnosis Date Astigmatism Attention deficit disorder with hyperactivity Bipolar 1 disorder (CMS-HCC) Constipation Dissociative disorder GERD (gastroesophageal reflux disease) History of pineal cyst Hormone imbalance Hypercholesterolemia Hyperopia Hypertension Impulse control disorder Moderate intellectual disability Mood disorder OCD (obsessive compulsive disorder) Osteopenia Patellar bursitis, right Pituitary microadenoma (CMS-HCC) PTSD (post-traumatic stress disorder) Seizure disorder (CMS-HCC) SURGICAL HX Past Surgical History: Procedure Laterality Date CHOLECYSTECTOMY FAMILY HX No family history on file. MEDS Current Outpatient Medications Medication Sig Dispense Refill acetaminophen (TYLENOL) 325 mg tablet Take 1 tablet (325 mg total) by mouth every 4 (four) hours as needed. albuterol (PROVENTIL,VENTOLIN) 2.5 mg /3 mL (0.083 %) nebulizer solution INHALE 1 VIAL VIA NEBULIZER EVERY 6 HOURS NEEDED FOR 2 WEEKS atomoxetine (STRATTERA) 40 mg capsule Take 1 [...] mouth in the morning and 200 mg at noon and 200 mg before bedtime. clindamycin (CLEOCIN) 300 mg capsule cloNIDine (CATAPRES) 0.2 mg tablet Take 1 tablet (0.2 mg total) by mouth in the morning and 1 tablet (0.2 mg total) at noon and 1 tablet (0.2 mg total) before bedtime. dicyclomine (BENTYL) 20 mg tablet Take 1 tablet (20 mg total) by mouth every 6 (six) hours. docusate sodium (COLACE) 100 mg capsule Take 1 capsule (100 mg total) by mouth in the morning and 1 capsule (100 mg total) before bedtime. fenofibrate micronized (LOFIBRA) 134 mg capsule Take 1 capsule (134 mg total) by mouth every morning before breakfast. FIBER-LAX 625 mg tablet Take 1 tablet (625 mg total) by mouth in the morning. fluticasone propionate (FLONASE) 50 mcg/actuation nasal spray Administer 1 spray into each nostril in the morning. guaiFENesin (MUCINEX) 600 mg tablet extended release 12hr TAKE ONE TABLET BY MOUTH TWICE A DAY NEEDED FOR NASAL CONGESTION AND COUGH MUCINEX guanFACINE (TENEX) 2 mg tablet Take 1 tablet (2 mg total) by mouth nightly. ibuprofen (ADVIL,MOTRIN) 200 mg tablet Take 1 tablet (200 mg total) by mouth every 6 (six) hours as needed. lamoTRIgine (LaMICtal) 100 mg tablet Take 1 [...] 1 tablet (2 mg total) by mouth as needed in the morning and 1 tablet (2 mg total) as needed at noon and 1 tablet (2 mg total) as needed in the evening. loratadine (CLARITIN) 10 mg tablet Take 1 [...] (6 mg total) by mouth every morning. polyethylene glycol (GLYCOLAX) 17 gram/dose powder Take 17 g by mouth. No current facility-administered medications for this visit. ALLERGIES Allergies Allergen Reactions Abilify [Aripiprazole] Amoxicillin Metyrosine Moban [Molindone] Nubain [Nalbuphine] Other Sympathomimetics Review of Systems Review of Systems Objective BP 110/70 Ht 163.8 cm (5' 4.5 ) Wt 83.3 kg (183 lb 9.6 oz) LMP (LMP Unknown) BMI 31.03 kg/m Physical Exam Physical Exam GEN AAOX3, NAD HEENT UNREMARKABLE HEART RRR LUNGS CTAB BREASTS NO MASSES, SKIN CHANGES OR LAD, NO NIPPLE DC ABD BENIGN, OBESE, NTND PELVIS: DEFERRED RECTAL DEFERRED EXTREM NO CCE, NO CALF TENDERNESS Assessment/Plan: BREAST MASS MASTODYNIA SX RESOLVED SUSPECT MASTITIS RESOLVED AFTER COURSE OF ABX Discussed the mammogram and ultrasound results with patient and resident care manager rn. Discussed how the patient has been feeling since she finished her antibiotics. Discussed the patients skin picking could be the source of infection. Advised to keep appointment with breast clinic. Recommend yearly mammograms. [facility] 09/04/24 [id number] LINN RED MD documented in this encounter [facility] 08-21-2024 History of Present illness Narrative Images from the original note were not included. patient: Migdalia Card : 1985 PCP: Lio Muñoz MD SUBJECTIVE This is a 39 y.o. female that presents today with a chief complaint of a spur /painful mass dorsal aspect of the 1st metatarsocuneiform joint. Patient is a poor historian has difficulty speaking but she states it does hurt in shoes. She had a cortisone injection last visit she relates minimal improvement. She was requesting another injection Allergies: Allergies Allergen Reactions Amoxicillin Unknown Aripiprazole Unknown Chlorpheniramine Unknown Dextromethorphan Hbr Food Peterson Slaw Metyrosine Unknown Molindone Unknown Nalbuphine Unknown Sympathomimetics Valproic Acid Unknown Per OSH H+P 08/2018 Past Medical History: Active Ambulatory Problems Diagnosis Date Noted Attention deficit disorder with hyperactivity 05/25/2012 Bipolar disorder (HCC) 05/04/2023 Essential hypertension 05/04/2023 Seizure disorder (HCC) 05/04/2023 Pure hypercholesterolemia 05/04/2023 Anger reaction 07/14/2023 Convulsion (HCC) 07/14/2023 Alteration of consciousness 07/14/2023 Development delay 07/14/2023 Resolved Ambulatory Problems Diagnosis Date Noted No Resolved Ambulatory Problems Past Medical History: Diagnosis Date ADHD (attention deficit hyperactivity disorder) Astigmatism Convulsions (HCC) Developmental delay GERD (gastroesophageal reflux disease) Hypercholesterolemia Hyperopia Hypertension Impulse control disorder Intellectual disability Mental disorder Mood disorder OCD (obsessive compulsive disorder) Osteopenia PTSD (post-traumatic stress disorder) Seizures (HCC) Medications: Current Outpatient Medications: acetaminophen (Tylenol) 325 [...] the morning and 1 tablet before bedtime. (Patient not taking: Reported on 02/29/2024), Disp: , Rfl: carBAMazepine XR (TEGretol XR) 200 MG 12 hr tablet, Take 200 mg by mouth in the morning and 200 mg before bedtime. Do not crush, chew, or split.., Disp: , Rfl: cloNIDine (Catapres) 0.2 MG [...] at the same time, Disp: , Rfl: ibuprofen (Motrin) 50 mg split tablet, Take 400 mg by mouth, Disp: , Rfl: lamoTRIgine (LaMICtal) 100 MG [...] to affected areas bid prn when flared (Patient not taking: Reported on 02/29/2024), Disp: 60 g, Rfl: 11 Review of [...] clean and dry. No ulcerations were noted. Soft tissue mass noted at the dorsal aspect of the right 1st metatarsocuneiform joint freely mobile within the subcutaneous tissue bursal formation VASC: DP /PT were nonpalpable bilateral. Capillary refill time < 3 seconds Digits 1-5 bilateral NEURO: [place] Ami 5.07 monofilament was intact B/L. Vibratory sensation was intact B/L Musculoskeletal: Muscle strength was +5 over 5 all intrinsic and extrinsic muscles tested. Exostosis noted at the 1st metatarsocuneiform joint mild tenderness noted with direct palpation Radiographs: AP/MO/LAT: deferred Diagnostic ultrasound: DIAGNOSTIC ULTRASOUND 12 MEGAHERTZ LINEAR PROBE REVEALED: hypoechoic capsulitis bursitis noted about the 1st metatarsocuneiform joint with spur formation noted ASSESSMENT 1. Exostosis of right foot 2. Other enthesopathy of right foot and ankle PLAN Recommended a 2nd cortisone injection Educated the patient and her caregiver in the exostosis of the 1st metatarsocuneiform joint as well as soft tissue/ bursa noted in that region I recommended cortisone injection into the bursa of the 1st metatarsocuneiform joint The patient was injected with 1 cc of 2% lidocaine plain and 1 cc of Kenalog 10 the ultrasonic guidance. A 12 megahertz linear probe was used for the injection in order to ensure exact placement and to avoid injection into underlying subcutaneous tissue. I discussed removal of the exostosis and soft tissue mass if the cortisone injection does not help. He was attempting shoe gear modifications at this point i as well. Follow up 1 month DAY Laura documented in this encounter [facility] 08-09-2024 History of Present illness Narrative Images from the original note were not included. 08/09/2024 DIAGNOSIS: Migdalia Card is a 39 y.o. female who [facility] for evaluation and recommendations regarding a right breast mass. HISTORY OF PRESENT ILLNESS: Migdalia Card is a 39 y.o. female who presents with right breast changes. History obtained from chart reviewed, additional information provided primarily by the facility staff present with her but patient is able to offer some input as well. Patient was seen by [facility] on 08/07/24 with complaints of right breast and nipple tenderness/inversion that started on 08/02. This progressed t/o the course of several days to include swelling, firmness, redness and warmth. Clindamycin was initiated on 08/05. BDM, U/S, and breast MRI ordered. She is scheduled for BDM and U/S on 08/28 at [place]. Patient does note some improvement since starting Clindamycin. Appraisal Specialist feels redness is improved compared to earlier in the week. GYNECOLOGICAL HISTORY AND RISK ASSESSMENT: First day of last menstrual period - irregular cycle - last unknown Age when you started your period: unknown Have you ever taken control pills? yes Have you ever taken Fertility Medication? no Number of pregnancies: 0 Number of live births: 0 Age at first : N/A Did you breast feed? N/A Age at menopause: N/A Have you ever taken hormone replacement therapy? no HEALTH HISTORY: The patient's past medical history, medications, and allergies have been reviewed in Epic. PAST MEDICAL HISTORY: Past Medical History: Diagnosis Date Astigmatism Attention deficit disorder with hyperactivity Bipolar 1 disorder (CMS-HCC) Constipation Dissociative disorder GERD (gastroesophageal reflux disease) History of pineal cyst Hormone imbalance Hypercholesterolemia Hyperopia Hypertension Impulse control disorder Moderate intellectual disability Mood disorder OCD (obsessive compulsive disorder) Osteopenia Patellar bursitis, right Pituitary microadenoma (CMS-HCC) PTSD (post-traumatic stress disorder) Seizure disorder ([facility]-HCC) PAST SURGICAL HISTORY: Past Surgical History: Procedure Laterality Date CHOLECYSTECTOMY MEDICATIONS: Current Outpatient Medications: acetaminophen (TYLENOL) 325 mg tablet, Take 1 tablet (325 mg total) by mouth every 4 (four) hours as needed., Disp: , Rfl: albuterol (PROVENTIL,VENTOLIN) 2.5 mg /3 mL (0.083 %) nebulizer solution, INHALE 1 VIAL VIA NEBULIZER EVERY 6 HOURS NEEDED FOR 2 WEEKS, Disp: , Rfl: atomoxetine (STRATTERA) 40 mg capsule, Take 1 capsule (40 mg total) by mouth in the morning., Disp: , Rfl: atomoxetine (STRATTERA) 60 mg capsule, Take 1 capsule (60 mg total) by mouth in the morning. mORNING., Disp: , Rfl: calcium carbonate-vitamin D3 600 mg(1,500mg) -800 units tablet, Take 1 tablet by mouth in the morning and 1 tablet before bedtime., Disp: , Rfl: carBAMazepine XR (TEGretol XR) 400 mg 12 hr tablet, Take 200 mg by mouth in the morning and 200 mg at noon and 200 mg before bedtime., Disp: , Rfl: clindamycin (CLEOCIN) 300 mg capsule, , Disp: , Rfl: cloNIDine (CATAPRES) 0.2 mg tablet, Take 1 tablet (0.2 mg total) by mouth in the morning and 1 tablet (0.2 mg total) at noon and 1 tablet (0.2 mg total) before bedtime., Disp: , Rfl: dicyclomine (BENTYL) 20 mg tablet, Take 1 tablet (20 mg total) by mouth every 6 (six) hours., Disp: , Rfl: docusate sodium (COLACE) 100 mg capsule, Take 1 capsule (100 mg total) by mouth in the morning and 1 capsule (100 mg total) before bedtime., Disp: , Rfl: fenofibrate micronized (LOFIBRA) 134 mg capsule, Take 1 capsule (134 mg total) by mouth every morning before breakfast., Disp: , Rfl: FIBER-LAX 625 mg tablet, Take 1 tablet (625 mg total) by mouth in the morning., Disp: , Rfl: fluticasone propionate (FLONASE) 50 mcg/actuation nasal spray, Administer 1 spray into each nostril in the morning., Disp: , Rfl: guaiFENesin (MUCINEX) 600 mg tablet extended release 12hr, TAKE ONE TABLET BY MOUTH TWICE A DAY NEEDED FOR NASAL CONGESTION AND COUGH MUCINEX, Disp: , Rfl: guanFACINE (TENEX) 2 mg tablet, Take 1 tablet (2 mg total) by mouth nightly., Disp: , Rfl: ibuprofen (ADVIL,MOTRIN) 200 mg tablet, Take 1 tablet (200 mg total) by mouth every 6 (six) hours as needed., Disp: , Rfl: lamoTRIgine (LaMICtal) 100 mg tablet, Take 1 tablet (100 mg total) by mouth in the morning., Disp: , Rfl: lamoTRIgine (LaMICtal) 150 mg tablet, Take 1 tablet (150 mg total) by mouth in the morning., Disp: , Rfl: lamoTRIgine (LaMICtal) 200 mg tablet, Take 0.5 tablets (100 mg total) by mouth in the morning., Disp: , Rfl: levonorgestreL-ethinyl estrad (AVIANE,ALESSE,LESSINA) 0.1-20 mg-mcg per tablet, Take 1 tablet by mouth in the morning., Disp: , Rfl: loperamide (IMODIUM A-D) 2 mg tablet, Take 1 tablet (2 mg total) by mouth as needed in the morning and 1 tablet (2 mg total) as needed at noon and 1 tablet (2 mg total) as needed in the evening., Disp: , Rfl: loratadine (CLARITIN) 10 mg tablet, Take 1 tablet (10 mg total) by mouth in the morning., Disp: , Rfl: metoprolol tartrate (LOPRESSOR) 100 mg tablet, Take 1 tablet (100 mg total) by mouth in the morning and 1 tablet (100 mg total) before bedtime., Disp: , Rfl: montelukast (SINGULAIR) 10 mg tablet, Take 1 tablet (10 mg total) by mouth nightly., Disp: , Rfl: OLANZapine (ZyPREXA) 20 mg tablet, Take 1 tablet (20 mg total) by mouth nightly. Total 30mg, Disp: , Rfl: omeprazole (PriLOSEC) 20 mg capsule, Take 1 capsule (20 mg total) by mouth every morning before breakfast., Disp: , Rfl: paliperidone (INVEGA) 6 mg 24 hr tablet, Take 1 tablet (6 mg total) by mouth every morning., Disp: , Rfl: polyethylene glycol (GLYCOLAX) 17 gram/dose powder, Take 17 g by mouth., Disp: , Rfl: ALLERGIES: Allergies Allergen Reactions Abilify [Aripiprazole] Amoxicillin Metyrosine Moban [Molindone] Nubain [Nalbuphine] Other Sympathomimetics FAMILY HISTORY No family history on file. SOCIAL HISTORY Social History Socioeconomic History Marital status: Single Tobacco Use Smoking status: Never Smokeless tobacco: Never Vaping Use Vaping status: Never Used Substance and Sexual Activity Alcohol use: Never Drug use: Never Sexual activity: Never REVIEW OF SYSTEMS: A review of systems was performed. Pertinent patient information is noted below: Review of Systems Constitutional: Negative for chills, fatigue, fever and unexpected weight change. HENT: Negative for congestion, ear pain, hearing loss, postnasal drip, sneezing and sore throat. Eyes: Negative for pain and redness. Respiratory: Negative for cough, shortness of breath and wheezing. Cardiovascular: Negative for chest pain and palpitations. Gastrointestinal: Negative for abdominal pain, constipation, diarrhea, nausea and vomiting. Genitourinary: Negative for dysuria, frequency, menstrual problem, pelvic pain and vaginal bleeding. Musculoskeletal: Negative for arthralgias, back pain and myalgias. Skin: Negative for rash and wound. Neurological: Negative for dizziness, weakness and headaches. Psychiatric/Behavioral: Negative for confusion. The patient is not nervous/anxious. BREASTS: breast pain, breast lump, and skin changes PHYSICAL EXAMINATION BP (!) 124/92 (BP Site: Left Arm, BP Postition: Sitting) Pulse 69 Resp 16 Ht 163.8 cm (5' 4.49 ) Wt 84.4 kg (186 lb) BMI 31.45 kg/m General Appearance: Well developed, well appearing, no acute distress Head: Normocephalic, without obvious abnormality, atraumatic ENT: Conjugate gaze, EOMs intact, mucous membranes moist Neck: Supple, no appreciable cervical lymphadenopathy Cardiac: Regular rate Pulmonary: Respirations unlabored Breasts: Examined in upright and supine position. BREAST (R): dense fibroglandular tissue upper pole, similar to left breast; there is an island of vague firmness encompassing the LOQ with associated tenderness; no skin changes, no tenderness, partially inverted vs cleft nipple, no nipple discharge, no supra/infraclavicular adenopathy, no axillary adenopathy. BREAST (L): dense fibroglandular tissue upper pole, no masses present, no skin changes, no tenderness, no nipple discharge, no nipple retraction, no supra/infraclavicular adenopathy, no axillary adenopathy. Abdomen: Abdomen is soft without significant tenderness, masses, organomegaly or guarding Extremities: Extremities normal, atraumatic, no cyanosis or edema Neurological: No gross neurological deficits, gait normal Psychologic: Appropriate affect ASSESSMENT: ICD-10-CM 1. Mass of right breast, unspecified quadrant N63.10 2. Breast skin changes R23.4 Migdalia Card is a 39 y.o. female with abrupt onset of right breast pain with associated redness and firmness. PLAN OF CARE: Discussed and reviewed clinical breast exam findings with patient and her care provider present. Spoke with staff at [facility] - patient will be worked in today for [facility] and U/S. Will await results to determine next steps, as appropriate. Continue antibiotic course as advised. Follow up pending results of testing. The patient understands and agrees with the plan as discussed. All questions answered. Eve Haque CNP [facility] Total time spent was 39 minutes: Preparing to see the patient (e.g., review of tests) Obtaining and/or reviewing separately obtained history Performing a medically appropriate examination and/or evaluation Counseling and educating the patient/family/caregiver Ordering medications, tests, or procedures Referring and communicating with other health nurse wound care (not separately reported) Documenting clinical information in the electronic or other health record Independently interpreting results (not separately reported) and communicating results to the patient/family/caregiver YESIKA Armstrong 08/09/24 1711 documented in this encounter [facility] 08-07-2024 History of Present illness Narrative Migdalia Card is a 39 y.o.female. No LMP recorded.. She presents with breast tenderness. According to report that was brought with pt: On 08/02/24 Migdalia began to complain that her right nipple and breast were painful. Then the following days it was noted that her right breast began to be swollen, warm when palpated and had a hardness noted when palpated. Ibuprofen and Acetaminophen were given for pain as ordered and needed. 08/04/24 Dr Muñoz ordered Clindamycin 300mg BID for 7 days. The medication was started on 08/05/24. She had also been noted tat times squeezing her right breast and nipple. OB History No obstetric history on file. MEDICAL HX No past medical history on file. SURGICAL HX No past surgical history on file. FAMILY HX No family history on file. MEDS Current Outpatient Medications Medication Sig Dispense Refill acetaminophen (TYLENOL) 325 mg tablet Take 1 tablet (325 mg total) by mouth every 4 (four) hours as needed. atomoxetine (STRATTERA) 40 mg capsule Take 1 [...] by mouth in the morning and 1 capsule (100 mg total) before bedtime. fenofibrate micronized [...] mouth every 6 (six) hours as needed. lamoTRIgine (LaMICtal) 100 mg tablet Take 1 [...] No current facility-administered medications for this visit. ALLERGIES Allergies Allergen Reactions Abilify [Aripiprazole] Amoxicillin Metyrosine Moban [Molindone] Nubain [Nalbuphine] Review of Systems Review of Systems Objective BP 114/68 Ht 163.8 cm (5' 4.5 ) Wt 84.6 kg (186 lb 9.6 oz) BMI 31.54 kg/m Physical Exam Physical Exam GEN AAOX3, NAD HEENT UNREMARKABLE HEART RRR LUNGS CTAB BREASTS SIGNIFICANT FIRM 6X6 CM AREA IN RIGHT BREAST WITH ERYTHEMA RADIATING TO THE UNDERSIDE OF BREAST TO MIDLINE, SMALL BRUISE AT THE 4 O'CLOCK AREA OF RIGHT BREAST ABD BENIGN, OBESE, NTND PELVIS: DEFERRED RECTAL DEFERRED EXTREM NO CCE, NO CALF TENDERNESS Assessment/Plan: Diagnoses and all orders for this visit: Mastodynia, female 6CM IFLAMMATORY RIGHT BREAST MASS Discussed how the patients right breast has been feeling and what symptoms she is experiencing. Breast evaluated. Advise a consultation with a breast specialist. Discussed ordering a mammogram. Discussed follow up care with patients resident care manager rn who believes she will tolerate a mammogram, she states if CT is needed she may need some sedation. Mammogram, ultrasound, MRI, and breast specialist requisition provided. FU [id number] MD DAMON MILLER, [facility] 08/07/24 1447 [facility] 08/07/24 1458 documented in this encounter [facility] 08-07-2024 History of Present illness Narrative Images from the original note were not included. patient: Migdalia Card : 1985 PCP: Lio Muñoz MD SUBJECTIVE This is a 39 y.o. female that presents today with a chief complaint of painful elongated nails digits 1 through 10. They cause marked limitation in ambulation due to pain and pressure from shoe gear. 2nd chief complaint patient was complaining of a spur /painful mass dorsal aspect of the 1st metatarsocuneiform joint. Patient is a poor historian has difficulty speaking but she states it does hurt in shoes. Allergies: Allergies Allergen Reactions Amoxicillin Unknown Aripiprazole Unknown Chlorpheniramine Unknown Dextromethorphan Hbr Food Peterson Slaw Metyrosine Unknown Molindone Unknown Nalbuphine Unknown Sympathomimetics Valproic Acid Unknown Per OSH H+P 08/2018 Past Medical History: Active Ambulatory Problems Diagnosis Date Noted Attention deficit disorder with hyperactivity 05/25/2012 Bipolar disorder ([facility]) 05/04/2023 Essential hypertension 05/04/2023 Seizure disorder ([facility]) 05/04/2023 Pure hypercholesterolemia 05/04/2023 Anger reaction 07/14/2023 Convulsion ([facility]) 07/14/2023 Alteration of consciousness 07/14/2023 Development delay 07/14/2023 Resolved Ambulatory Problems Diagnosis Date Noted No Resolved Ambulatory Problems Past Medical History: Diagnosis Date ADHD (attention deficit hyperactivity disorder) Astigmatism Convulsions ([facility]) Developmental delay GERD (gastroesophageal reflux disease) Hypercholesterolemia Hyperopia Hypertension Impulse control disorder Intellectual disability Mental disorder Mood disorder OCD (obsessive compulsive disorder) Osteopenia PTSD (post-traumatic stress disorder) Seizures ([facility]) Medications: Current Outpatient Medications: acetaminophen (Tylenol) 325 [...] the morning and 1 tablet before bedtime. (Patient not taking: Reported on 02/29/2024), Disp: , Rfl: carBAMazepine XR (TEGretol XR) 200 MG 12 hr tablet, Take 200 mg by mouth in the morning and 200 mg before bedtime. Do not crush, chew, or split.., Disp: , Rfl: cloNIDine (Catapres) 0.2 MG [...] at the same time, Disp: , Rfl: ibuprofen (Motrin) 50 mg split tablet, Take 400 mg by mouth, Disp: , Rfl: lamoTRIgine (LaMICtal) 100 MG [...] to affected areas bid prn when flared (Patient not taking: Reported on 02/29/2024), Disp: 60 g, Rfl: 11 Review of [...] clean and dry. No ulcerations were noted. Soft tissue mass noted at the dorsal aspect of the right 1st metatarsocuneiform joint freely mobile within the subcutaneous tissue bursal formation Nails 1 through 10 were thickened elongated yellow and crumbly with subungual debris. They were painful to palpation [id number] on the right [id number] on the left. VASC: DP /PT were nonpalpable bilateral. Capillary refill time < 3 seconds Digits 1-5 bilateral NEURO: [place] Ami 5.07 monofilament was intact B/L. Vibratory sensation was intact B/L Musculoskeletal: Muscle strength was +5 over 5 all intrinsic and extrinsic muscles tested. Exostosis noted at the 1st metatarsocuneiform joint mild tenderness noted with direct palpation Radiographs: AP/MO/LAT: deferred Diagnostic ultrasound: DIAGNOSTIC ULTRASOUND 12 MEGAHERTZ LINEAR PROBE REVEALED: hypoechoic capsulitis bursitis noted about the 1st metatarsocuneiform joint with spur formation noted ASSESSMENT 1. Other enthesopathy of right foot and ankle 2. Exostosis of right foot 3. Pain in right toe(s) 4. Right foot pain 5. Onychomycosis 6. Pain in left toe(s) PLAN The patient was educated on proper foot care as well as the etiology of onychomycosis. I educated the patient on proper shoe gear as well. Today the nails were debrided both in length and thickness 1 through 10. Educated the patient and her caregiver in the exostosis of the 1st metatarsocuneiform joint as well as soft tissue/ bursa noted in that region I recommended cortisone injection into the bursa of the 1st metatarsocuneiform joint The patient was injected with 1 cc of 2% lidocaine plain and 1 cc of Kenalog 10 the ultrasonic guidance. A 12 megahertz linear probe was used for the injection in order to ensure exact placement and to avoid injection into underlying subcutaneous tissue. I discussed removal of the exostosis and soft tissue mass if the cortisone injection does not help. I did recommended shoe gear modifications she will be going to an crystal grinder to have new shoes purchase follow up 2 weeks for reexamine. DAY Laura documented in this encounter [facility] 07-18-2024 History of Present illness Narrative Images from the original note were not included. Patient: Migdalia Card : 1985 PCP: Lio Muñoz MD SUBJECTIVE This is a 39 y.o. female that presents today for follow up a nail avulsion /incision and drainage of abscess left . Patient is doing well they deny fever chills nausea vomiting. They deny any pain they have been compliant with her postoperative care they have been soaking the nail as directed and applying topical antibiotics. Allergies: Allergies Allergen Reactions Amoxicillin Unknown Aripiprazole Unknown Chlorpheniramine Unknown Dextromethorphan Hbr Food Peterson Slaw Metyrosine Unknown Molindone Unknown Nalbuphine Unknown Sympathomimetics Valproic Acid Unknown Per OSH H+P 08/2018 Past Medical History: Active Ambulatory Problems Diagnosis Date Noted Attention deficit disorder with hyperactivity ([facility]) 05/25/2012 Bipolar disorder 05/04/2023 Essential hypertension ([facility]) 05/04/2023 Seizure disorder ([facility]) 05/04/2023 Pure hypercholesterolemia ([facility]) 05/04/2023 Anger reaction 07/14/2023 Convulsion ([facility]) 07/14/2023 Alteration of consciousness 07/14/2023 Development delay 07/14/2023 Resolved Ambulatory Problems Diagnosis Date Noted No Resolved Ambulatory Problems Past Medical History: Diagnosis Date ADHD (attention deficit hyperactivity disorder) ([facility]) Astigmatism Convulsions ([facility]) Developmental delay GERD (gastroesophageal reflux disease) Hypercholesterolemia ([facility]) Hyperopia Hypertension ([facility]) Impulse control disorder ([facility]) Intellectual disability ([facility]) Mental disorder Mood disorder ([facility]) OCD (obsessive compulsive disorder) ([facility]) Osteopenia PTSD (post-traumatic stress disorder) ([facility]) Seizures ([facility]) Medications: Current Outpatient Medications: acetaminophen (Tylenol) 325 [...] the morning and 1 tablet before bedtime. (Patient not taking: Reported on 02/29/2024), Disp: , Rfl: carBAMazepine XR (TEGretol XR) 200 MG 12 hr tablet, Take 200 mg by mouth in the morning and 200 mg before bedtime. Do not crush, chew, or split.., Disp: , Rfl: cloNIDine (Catapres) 0.2 MG [...] at the same time, Disp: , Rfl: ibuprofen (Motrin) 50 mg split tablet, Take 400 mg by mouth, Disp: , Rfl: lamoTRIgine (LaMICtal) 100 MG [...] to affected areas bid prn when flared (Patient not taking: Reported on 02/29/2024), Disp: 60 g, Rfl: 11 ROS: Constitutional: Denies fever, chills, nausea, vomiting GI: Denies abdominal pain, cramping, loose stool, gastric ulcers Musculoskeletal: Denies low back pain, knee pain, systemic arthritis Neurologic: Denies burning, tingling, transient paralysis OBJECTIVE Physical examination: DERM: Positive hair growth to b/l feet with good skin turgor noted. Nail avulsion site is healing well no signs of infection no drainage no malodor. Mild fibrotic tissue noted within the nail fold. No ascending cellulitis or lymphangitis noted. VASC: Palpable pedal pulsed b/l with warm to cool tibia to toes b/l NEURO: Gross sensation intact digits 1-10 and b/l feeT MUSCULOSKELETAL: Muscle strength is +5 over 5 all intrinsic and extrinsic muscles tested ASSESSMENT 1. Abscess, toe, left 2. Onychocryptosis PLAN Patient may discontinue soaking the nail. They may discontinue topical antibiotics follow up p.r.n. DAY Laura documented in this encounter [facility] 2024 History of Present illness Narrative Patient: Migdalia Card : 1985 PCP: Lio Muñoz MD SUBJECTIVE This is a 39 y.o. female presents today with a chief complaint of a painful ingrown toenail with associated soft tissue abscess left foot. The state the pain has been present for several weeks and has progressively worsened. They have attempted trimming the nail back to no avail. They have noticed erythema and drainage coming from the affected border of the nail. They have attempted soaking the nail and topical antibiotics to no avail. The patient rates the pain a scale from 1-10 as a 8 with 10 being the worst pain of their lives. Allergies: Allergies Allergen Reactions Amoxicillin Unknown Aripiprazole Unknown Chlorpheniramine Unknown Dextromethorphan Hbr Food Peterson Slaw Metyrosine Unknown Molindone Unknown Nalbuphine Unknown Sympathomimetics Valproic Acid Unknown Per OSH H+P 08/2018 Past Medical History: Active Ambulatory Problems Diagnosis Date Noted Attention deficit disorder with hyperactivity ([facility]) 05/25/2012 Bipolar disorder 05/04/2023 Essential hypertension ([facility]) 05/04/2023 Seizure disorder ([facility]) 05/04/2023 Pure hypercholesterolemia ([facility]) 05/04/2023 Anger reaction 07/14/2023 Convulsion ([facility]) 07/14/2023 Alteration of consciousness 07/14/2023 Development delay 07/14/2023 Resolved Ambulatory Problems Diagnosis Date Noted No Resolved Ambulatory Problems Past Medical History: Diagnosis Date ADHD (attention deficit hyperactivity disorder) ([facility]) Astigmatism Convulsions ([facility]) Developmental delay GERD (gastroesophageal reflux disease) Hypercholesterolemia ([facility]) Hyperopia Hypertension ([facility]) Impulse control disorder ([facility]) Intellectual disability ([facility]) Mental disorder Mood disorder ([facility]) OCD (obsessive compulsive disorder) ([facility]) Osteopenia PTSD (post-traumatic stress disorder) ([facility]) Seizures ([facility]) Medications: Current Outpatient Medications: acetaminophen (Tylenol) 325 [...] the morning and 1 tablet before bedtime. (Patient not taking: Reported on 02/29/2024), Disp: , Rfl: carBAMazepine XR (TEGretol XR) 200 MG 12 hr tablet, Take 200 mg by mouth in the morning and 200 mg before bedtime. Do not crush, chew, or split.., Disp: , Rfl: cloNIDine (Catapres) 0.2 MG [...] at the same time, Disp: , Rfl: ibuprofen (Motrin) 50 mg split tablet, Take 400 mg by mouth, Disp: , Rfl: lamoTRIgine (LaMICtal) 100 MG [...] to affected areas bid prn when flared (Patient not taking: Reported on 02/29/2024), Disp: 60 g, Rfl: 11 Review of systems: Constitutional: Denies fever, chills, nausea, vomiting GI: Denies abdominal pain, cramping, loose stool, gastric ulcers Musculoskeletal: Denies low back pain, knee pain, systemic arthritis Neurologic: Denies burning, tingling, transient paralysis OBJECTIVE Physical Examination: DERM: Positive hair growth to b/l feet with good skin turgor noted. Negative openings in skin. The left great toe is incurvated and painful at the nail border. There is significant erythema and drainage with abscess formation noted. Pain on direct palpation of the incurvated border. Localized erythema circumferentially around the digit. There is no ascending cellulitis or lymphangitis noted. VASC: DP /PT were palpable bilateral. Capillary refill time < 3 seconds Digits 1-5 bilateral NEURO: [place] Ami 5.07 monofilament was intact B/L. Vibratory sensation was intact B/L Musculoskeletal: Muscle strength was +5 over 5 all intrinsic and extrinsic muscles tested. Radiographs: AP/MO/LAT: ASSESSMENT 1. Onychocryptosis 2. Pain in left toe(s) 3. Abscess, toe, left PLAN Recommended incision and drainage of the infection of the digit. Consent forms were signed for the procedure today. The digit was anesthetized with 3 cc of 2% lidocaine plain. The digit was prepped and draped in the usual sterile manner. The offending nail border was freed proximally and at the nail bed. The nail was then split and removed in toto. The abscess was drained and copiously lavaged with normal sterile saline. Dressings consisted of Silvadene 4x4s and Coban. The patient was instructed to change the dressing daily. DAY Laura documented in this encounter [facility] 06-13-2024 History of Present illness Narrative Subjective Migdalia Card is a pleasant 38 y.o. female who presents for medicare pelvic and clinical breast exam screening for cancer. The patient has no complaints today. The patient has never been sexually active. Hot flashes - Mild Bladder issues - None Bowel issues - None History of abnormal Pap smear: no Last pap: 2 years ago Family history of uterine or ovarian cancer: no Regular self breast exam: yes Last mammogram: not yet Family history of breast cancer: no Family history of colon cancer: no Family history of pancreatic or prostate cancer: no Working no : goes to day [employer] How many children? no Smoker no Dexa Scan: not due yet Colonoscopy: not yet The following portions of the patient's history were reviewed and updated as appropriate: allergies, current medications, past family history, past medical history, past social history, past surgical history, problem list, and medication reconciliation was completed including current medication and post discharge medication. Review of Systems Reason unable to perform ROS: developmentally delayed. Objective Vitals: 06/13/24 1333 BP: 116/72 Body mass index is 32.05 kg/m . Physical Exam Vitals and nursing note reviewed. Exam conducted with a polymer tester present. Constitutional: General: She is not in acute distress. Appearance: She is obese. She is not ill-appearing, toxic-appearing or diaphoretic. HENT: Head: Normocephalic and atraumatic. Eyes: General: No scleral icterus. Right eye: No discharge. Left eye: No discharge. Neck: Thyroid: No thyroid mass, thyromegaly or thyroid tenderness. Cardiovascular: Rate and Rhythm: Normal rate and regular rhythm. Heart sounds: Normal heart sounds. Pulmonary: Effort: Pulmonary effort is normal. Breath sounds: Normal breath sounds. Chest: Chest wall: No mass, lacerations, deformity, swelling or tenderness. Breasts: Giovanni Score is 5. Breasts are symmetrical. Right: Normal. Left: Normal. Abdominal: General: There is no distension. Palpations: Abdomen is soft. There is no mass. Tenderness: There is no abdominal tenderness. There is no guarding or rebound. Hernia: No hernia is present. Genitourinary: General: Normal vulva. Exam position: Lithotomy position. Pubic Area: No rash or pubic lice. Labia: Right: No rash, tenderness, lesion or injury. Left: No rash, tenderness, lesion or injury. Urethra: No prolapse, urethral pain, urethral swelling or urethral lesion. Vagina: Normal. Cervix: No discharge, friability, lesion, erythema, cervical bleeding or eversion. Rectum: No external hemorrhoid. Musculoskeletal: Cervical back: Neck supple. No rigidity or tenderness. Lymphadenopathy: Cervical: No cervical adenopathy. Upper Body: Right upper body: No supraclavicular or axillary adenopathy. Left upper body: No supraclavicular or axillary adenopathy. Skin: General: Skin is warm and dry. Neurological: General: No focal deficit present. Mental Status: She is alert. Psychiatric: Mood and Affect: Mood normal. Behavior: Behavior normal. Migdalia was seen today for medicare breast and pelvic . Diagnoses and all orders for this visit: Encounter for breast and pelvic examination 1. Discussed SBE. 2. Questions answered. 3. Discussed ASCCP guidelines w/caregiver Idania, and pt. Due 2027 for next PAP 4. Return for Medicare pelvic / breast exam and / or PRN. DAMON MIKE CMA - TARIK Yates 06/13/24 2:12 PM TARIK Leblanc 06/13/24 1415 documented in this encounter [facility] 06-04-2024 History of Present illness Narrative Images from the original note were not included. Chief Complaint Patient presents with Seizures Subjective Migdalia Card, 38 y.o., female SEIZURE -resident at [place], here today with house aide -labs to review -on carbamazepine and lamotrigine -decreased carbamazepine at last visit -denies any missed doses -no reported seizures per report from facility Review of Systems Constitutional: Negative for appetite [...] Diagnosis Date ADHD (attention deficit hyperactivity disorder) ([facility]) Alteration of consciousness Anger reaction Astigmatism Bipolar disorder Convulsions ([facility]) Developmental delay GERD (gastroesophageal reflux disease) Hypercholesterolemia ([facility]) Hyperopia Hypertension ([facility]) Impulse control disorder ([facility]) Intellectual disability ([facility]) Mental disorder Mental retardation, mild Mood disorder ([facility]) OCD (obsessive compulsive disorder) ([facility]) Osteopenia PTSD (post-traumatic stress disorder) ([facility]) Seizures ([facility]) No past surgical history on file. No family history on file. Social History Tobacco Use Smoking status: Never Smokeless tobacco: Never Substance Use Topics Alcohol use: Never Allergies: Amoxicillin, Aripiprazole, Chlorpheniramine, Dextromethorphan hbr, Food, Metyrosine, Molindone, Nalbuphine, Sympathomimetics, and Valproic acid Vitals: 06/04/24 1033 BP: 104/72 Pulse: 73 Resp: 16 SpO2: 96% Body mass index is 33.81 kg/m . weight: 197 lb Neurologic exam: Mental status: Developmentally delayed, [...] , wrist extensors , wrist flexor , stonemason supervisor strength 5/5. LUE Strength deltoid , biceps , triceps , wrist extensors , wrist flexor , stonemason supervisor strength 5/5. RLE Strength illopsoas, quadriceps, tibialis [...] 1+. LLE knee reflex 1+. Negative Brian's Gait: Normal Review and summary of old records: Sodium level 05/03/2024: 138 Sodium level on 10/21/23 was 132 Labs [...] 134 (L). LFTs (WNL) Routine EEG at [facility] in March 2018: Normal MRI of the brain w and w/o contrast at [facility] on 10/18/13 and 06/30/16: Stable right [...] dose has been decreased to low sodium levels, which have now normalized. She is doing well on current doses without breakthrough events. PLAN: - Continue lamotrigine PO 200 mg in morning and 400 mg in the evening (primarily for mood/psych) - Continue carbamazepine XR PO to 200 mg in the morning, 100 mg in the afternoon, and 200 mg in the evening - Recent blood work reviewed - Continue with compliance with medications - No driving (the patient does not) - If concerns for a breakthrough epileptic event would consider the addition of Onfi - I advised the caregiver to notify the office or have the patient evaluated should the patient experience seizure-like activity or acute alteration of mental status in the future Hyponatremia Sodium level 132 on 10/21/23, recent sodium 05/03/2024 138. See plan above. Developmental delay The patient is developmentally delayed which certainly raises the risk for epilepsy. Anger reaction Seemingly stable per report from the patient's caregiver today. PLAN: - Follow closely with psychiatry and primary care provider for management Follow up in 3-4 months (lab to be completed prior) or sooner if symptoms worsen, fail to improve, or should a new neurological concern arise. Pt has been fully educated on their diagnosis, treatment options, follow up plan, and return instructions documented in this encounter [facility] 02-29-2024 History of Present illness Narrative Images from the original note were not included. Chief Complaint Patient presents with Convulsions Subjective Migdalia Card, 38 y.o., female The patient presents today [...] Diagnosis Date ADHD (attention deficit hyperactivity disorder) (CMS/HCC) Alteration of consciousness Anger reaction Astigmatism Bipolar disorder (CMS/HCC) Convulsions (CMS/HCC) Developmental delay GERD (gastroesophageal reflux disease) Hypercholesterolemia (CMS/HCC) Hyperopia Hypertension (CMS/HCC) Impulse control disorder (CMS/HCC) Intellectual disability (CMS/HCC) Mental disorder Mental retardation, mild Mood disorder (CMS/HCC) OCD (obsessive compulsive disorder) ([facility]/HCC) Osteopenia PTSD (post-traumatic stress disorder) ([facility]) Seizures ([facility]) History reviewed. No pertinent surgical history. No [...] , wrist extensors , wrist flexor , stonemason supervisor strength 5/5. LUE Strength deltoid , biceps , triceps , wrist extensors , wrist flexor , stonemason supervisor strength 5/5. RLE Strength illopsoas, quadriceps, tibialis [...] LLE knee reflex 1+. Negative Brian's Coordination: Hmbker-ys-vify testing is normal Gait: Normal Review and [...] 134 (L). LFTs (WNL) Routine EEG at [facility] in March 2018: Normal MRI of the brain w and w/o contrast at [facility] on 10/18/13 and 06/30/16: Stable right [...] and return instructions documented in this encounter [facility] 02-28-2024 History of Present illness Narrative Images from the original note were not included. patient: Migdalia Card : 1985 PCP: Lio Muñoz MD SUBJECTIVE [...] Diagnosis Date ADHD (attention deficit hyperactivity disorder) (CMS/HCC) Alteration of consciousness Anger reaction Astigmatism Bipolar disorder (CMS/HCC) Convulsions (CMS/HCC) Developmental delay GERD (gastroesophageal reflux disease) Hypercholesterolemia (CMS/HCC) Hyperopia Hypertension (CMS/HCC) Impulse control disorder (CMS/HCC) Intellectual disability (CMS/HCC) Mental disorder Mental retardation, mild Mood disorder (CMS/HCC) OCD (obsessive compulsive disorder) (CMS/HCC) Osteopenia PTSD (post-traumatic stress disorder) ([facility]/HCC) Seizures ([facility]/HCC) Medications: Current Outpatient Medications: acetaminophen (Tylenol) 325 [...] subungual debris. They were painful to palpation 23351 on the right 89537 on the left. VASC: DP /PT were nonpalpable bilateral. Capillary refill time < 3 seconds Digits 1-5 bilateral NEURO: [place] Ami 5.07 monofilament was intact B/L. Vibratory [...] 10. DAY Laura documented in this encounter [facility] 02-23-2024 Note Patient recovered by anesthesia in procedure room. [facility] 02-23-2024 History of Present illness Narrative ----- February at 10:34:06 AM ----- ----- Provider: Shelby Frias DMD -- Clinic: [place] ----- PT. WAS SEEN IN [facility] UNDER TWILIGHT SEDATION WITH ANESTHESIA TEAM. Anesthesia diagnosis: Unspecified mental disorder- F09 and Other intellectual disabilities- F78 Dental diagnosis: Dental Caries, unspecified - K02.9 COMPOSITE SIKHISM Patient is scheduled for Mormonism on tooth #23 MFL and 24 DFL. Reviewed Medical History. Patient is ready for treatment. Topical Benzocaine gel applied at the injection site for 2 minutes. Administered 2 carpules of Lidocaine, 2% with Epinephrine 1:100,000,. Cotton roll isolation achieved. Decay/existing hoahaoism removed, cavity prepared. Selectively etched enamel with 37% phosphoric acid, rinsed, and blot dried. OptiBond bowles applied and light-cured. Condensed packable composite shade A2 in light cured increments using Mylar strip and wedge. Finished with finishing burs, checked occlusion, verified proximal contacts and hoahaoism was polished. Rinsed and suctioned intraorally, advised [...] ----- Provider: Shelby Frias DMD -- Clinic: [place] ----- documented in this encounter [facility] 02-14-2024 Telephone encounter Note Anesthesia consent obtained by Dr. Koch and scanned into Alfred. [facility] 02-14-2024 Miscellaneous Notes Anesthesia consent obtained by Dr. Koch and scanned into Alfred. documented in this encounter [facility] 02-01-2024 Instructions Penny Denton RN - 02/01/2024 9:44 AM EST You are you have surgery with Dr. Frias on 02/22/2023 at [facility] which is located at [address] [place] [address] PATIENT MEDICATION INSTRUCTIONS: On the morning of [...] unless otherwise contacted. Expect a call from [facility] one business day prior to surgery for [...] your Preparing for Your Surgery/Procedure booklet or [email or web address] if you have questions. Contact the Pre-Admission Testing department at [phone] or your surgeon's office with any questions [...] Metal jewelry could cause constriction, amputation, or serrano. Loose or bulky things in your mouth [...] stay with you after surgery. Please call [facility] if you need transportation assistance or have concerns about going home [phone]. PEDIATRIC or ADOLESCENTS: Parents or a legal [...] signs of dehydration. Thank you for choosing [facility]; it is our pleasure to care for you. documented in this encounter [facility] 02-01-2024 Evaluation note Images from the original note were not included. Telephone History Migdalia Card, [id number] 02/01/2024 Patient was identified by name and date of with Nurse Latasha from [facility]. Needs: Physical, Neck Circumference, Glasses, BHCG, Intellectual Disability, Anxiety and Seizure Precautions on DOS. If the patient becomes ill prior to procedure or surgery, they are to call their provider or surgeon's office directly. 02/01/2024 - communicated with patient will need urine test the morning of the procedure 02/01/2024-Spoke with Dr. Florez (Anesthesia) in regards to anxiety with last procedure - indicates that [facility] can give her 5 mg Valium at least 1 hour prior to arriving (Nurse at [facility] - Latasha- aware) 02/01/2024-[facility] to provide most recent labs (fax number given) 02/14/2024-LG consent obtained - see media analyst 38 year old 190.6 lbs 5' 5 [...] 09/05/2018 Added automatically from request for surgery [id number] Constipation Per OSH H+P 08/2018 Dental decay 08/26/2016 Added automatically from request for surgery [id number] Developmental delay Per OSH H+P 08/2018 Hormone [...] Decay, Dental Caries, Peridontitis, Endo (+) obesity sagger preparer (+) irregular periods Neuro/Psych (+) bipolar disorder, [...] DENTAL RESTORATIONS; Surgeon: Bhavin Valdovinos DDS; Location: [facility] [place]; Service: Dental DENTAL RESTORATIONS N/A 09/15/2018 Procedure: DENTAL RESTORATIONS; Surgeon: Og Mahoney DDS; Location: [facility] [place]; Service: Dental DENTAL RESTORATIONS Bilateral 07/14/2020 Procedure: DENTAL RESTORATIONS; Surgeon: Og Mahoney DDS; Location: [facility] [place]; Service: Dental SOCIAL HISTORY: Social History Socioeconomic History Marital status: Single Tobacco Use Smoking status: Never Smokeless tobacco: Never Substance and Sexual Activity Alcohol use: Never Drug use: Never PAIN ASSESSMENT: Severity: 0 Location: N/A LABORATORY DATA: [facility] 10/24/2023 LABS TESTS REVIEWED: CXRay: No Chest [...] unless otherwise contacted. Expect a call from [employer] one business day prior to surgery for [...] your Preparing for Your Surgery/Procedure booklet or [email or web address] if you have questions. Contact the Pre-Admission Testing department at [phone] or your surgeon's office with any questions [...] Metal jewelry could cause constriction, amputation, or serrano. Loose or bulky things in your mouth [...] stay with you after surgery. Please call [facility] [employer] if you need transportation assistance or have concerns about going home [phone]. PEDIATRIC or ADOLESCENTS: Parents or a legal [...] signs of dehydration. Thank you for choosing [facility]; it is our pleasure to care for you. Penny Denton RN Time Spent Performing this Telephone History: 30 [facility] 02-01-2024 Miscellaneous Notes Images from the original note were not included. Telephone History Migdalia Card, [id number] 02/01/2024 Patient was identified by name and date of with Nurse Latasha from [facility]. Needs: Physical, Neck Circumference, Glasses, BHCG, Intellectual Disability, Anxiety and Seizure Precautions on DOS. If the patient becomes ill prior to procedure or surgery, they are to call their provider or surgeon's office directly. 02/01/2024 - communicated with patient will need urine test the morning of the procedure 02/01/2024-Spoke with Dr. Florez (Anesthesia) in regards to anxiety with last procedure - indicates that [facility] can give her 5 mg Valium at least 1 hour prior to arriving (Nurse at [facility] - Latasha- aware) 02/01/2024-[facility] to provide most recent labs (fax number given) 02/14/2024-LG consent obtained - see media analyst 38 year old 190.6 lbs 5' 5 [...] 09/05/2018 Added automatically from request for surgery [id number] Constipation Per OSH H+P 08/2018 Dental decay 08/26/2016 Added automatically from request for surgery [id number] Developmental delay Per OSH H+P 08/2018 Hormone [...] Decay, Dental Caries, Peridontitis, Endo (+) obesity sagger preparer (+) irregular periods Neuro/Psych (+) bipolar disorder, [...] DENTAL RESTORATIONS; Surgeon: Bhavin Valdovinos DDS; Location: [facility] [place]; Service: Dental DENTAL RESTORATIONS N/A 09/15/2018 Procedure: DENTAL RESTORATIONS; Surgeon: Og Mahoney DDS; Location: [facility] [place]; Service: Dental DENTAL RESTORATIONS Bilateral 07/14/2020 Procedure: DENTAL RESTORATIONS; Surgeon: Og Mahoney DDS; Location: [facility] [place]; Service: Dental SOCIAL HISTORY: Social History Socioeconomic History Marital status: Single Tobacco Use Smoking status: Never Smokeless tobacco: Never Substance and Sexual Activity Alcohol use: Never Drug use: Never PAIN ASSESSMENT: Severity: 0 Location: N/A LABORATORY DATA: [facility] 10/24/2023 LABS TESTS REVIEWED: CXRay: No Chest [...] unless otherwise contacted. Expect a call from [employer] one business day prior to surgery for [...] your Preparing for Your Surgery/Procedure booklet or [email or web address] if you have questions. Contact the Pre-Admission Testing department at [phone] or your surgeon's office with any questions [...] Metal jewelry could cause constriction, amputation, or serrano. Loose or bulky things in your mouth [...] stay with you after surgery. Please call [employer] if you need transportation assistance or have concerns about going home [phone]. PEDIATRIC or ADOLESCENTS: Parents or a legal [...] signs of dehydration. Thank you for choosing [facility]; it is our pleasure to care for you. Penny Denton RN Time Spent Performing this Telephone History: 30 documented in this encounter [facility] 12-15-2023 Note Formatting of this n ote is different from the original. Addendum created 12/15/23 113 by Orquidea Florez MD Clinical Note Signed [facility] 12-15-2023 Miscellaneous Notes Addendum created 12/15/231133 by Orquidea Florez MD Clinical Note Signed Addendum created 12/15/23 1026 by Domingo Carrion APRN-CRNA Flowsheet accepted, LDA properties accepted Patient recovered by UNIT SUPERVISOR in room. Patient is awake, comfortable, and [...] DENTAL RESTORATIONS; Surgeon: Bhavin Valdovinos DDS; Location: [facility] [place]; Service: Dental CHOLECYSTECTOMY (2009) Per OSH H+P 08/2018 DENTAL RESTORATIONS (09/15/2018) Procedure: DENTAL RESTORATIONS; Surgeon: Og Mahoney DDS; Location: [facility] [place]; Service: Dental DENTAL RESTORATIONS (07/14/2020) Procedure: DENTAL RESTORATIONS; Surgeon: Og Mahoney DDS; Location: [facility] [place]; Service: Dental Allergies: Abilify, Amoxicillin, Depakote [valproic acid], Food, Metyrosine, Moban [molindone], Nubain [nalbuphine], Sympathomimetics, and Vicks 44 cough relief [dextromethorphan hbr] Basic Operating Room Facts: * No surgeons listed * Anesthesiologist: Orquidea Florez MD UNIT SUPERVISOR: Domingo Carrion APRN-UNIT SUPERVISOR DENTAL VISIT Intraoperative Events: No acute event [...] received. MAXIMO Soliz documented in this encounter [facility] 12-15-2023 Procedure anesthe fritz Narrative Procedure Name [...] the receiving nurse in the receiving unit. 0925 AN Stop Meds Name Total glycopyrrolate (ROBINUL) [...] Surgical - Incision 07/14/20 1023 by Felix Oro RN Airway Adjunct 12/15/23; 0833; Nasa l Cannula; 12/15/23; 0920 12/15/23 0833 by Domingo Carrion APRN-CRNA 12/15/23 0920 by Domingo Carrion APRN-CRNA documented in this encounter [id number] Note* Addendum Note - Domingo Carrion APRN-CRNA - 12/15/2023 10:26 AM EDT Addendum created 12/15/23 1026 by Domingo Carrion APRN-CRNA Flowsheet accepted, LDA properties accepted [facility] Work Phone: 1(303) 923-900010-24-2024 Note* Addendum Note - Domingo Carrion APRN- CRNA - 12/15/2023 10:26 AM EDT Addendum created 12/15/23 1026 by Domingo Carrion APRN-CRNA Flowsheet accepted, LDA properties accepted [employer] Work Phone: 1(358) 524-196110-24-2024 Miscellaneous Notes* Addendum Note - Domingo Carrion APRN-CRNA - 12/15/2023 10:26 AM EDT Addendum created 12/15/23 1026 by Domingo Carrion APRN-CRNA Flowsheet accepted, LDA properties accepted * Anesthesia Transfer Of Care - Domingo Carrion APRN-CRNA - 12/15/2023 9:24 AM EDT Patient recovered by UNIT SUPERVISOR in room. Patient is awake, comfortable, and [...] DENTAL RESTORATIONS; Surgeon: Bhavin Valdovinos DDS; Location: [facility] [place]; Service: Dental CHOLECYSTECTOMY (2009) Per OSH H+P 08/2018 DENTAL RESTORATIONS (09/15/2018) Procedure: DENTAL RESTORATIONS; Surgeon: Og Mahoney DDS; Location: [facility] [place]; Service: Dental DENTAL RESTORATIONS (07/14/2020) Procedure: DENTAL RESTORATIONS; Surgeon: Og Mahoney DDS; Location: [facility] [place]; Service: Dental Allergies: Abilify, Amoxicillin, Depakote [valproic acid], Food, Metyrosine, Moban [molindone], Nubain [nalbuphine], Sympathomimetics, and Vicks 44 cough relief [dextromethorphan hbr] Basic Operating Room Facts: * No surgeons listed * Anesthesiologist: Orquidea Florez MD UNIT SUPERVISOR: Domingo Carrion APRN-RAVINDRA DENTAL VISIT Intraoperative Events: [...] was received. MAXIMO Soliz documented in this [id number] Anesthesiology Postoperative evaluation and management note* Anesthesia [...] ANESTHESIA NOTABLE EVENTS: No notable events documented. [facility] Work Phone: 1(747) 298-778610-24-2024 Surgical operation note* Anesthesia Postprocedure Evaluation - [...] apnea Dental ROS (+) teeth problems Endo sagger preparer (-) not (negative in clinic today) Neuro/Psych [...] were discussed with the patient and/or legal pest control service representative. The risks, benefitsand alternatives were reviewed. Questions regarding anesthesia were answered. Patient and/or legal pest control service representative knows such anesthetics and procedures may be performed by Resident physicians, Certified Anesthesiologist Assistants, or Certified Nurse Anesthetists under the supervision of a physician. The patient /or the patient s legal pest control service representative agree with the plan for anesthesia. [employer] documented in this [id number] Surgical operation note* Anesthesia Postprocedure Evaluation - [...] apnea Dental ROS (+) teeth problems Endo sagger preparer (-) not (negative in clinic today) Neuro/Psych [...] were discussed with the patient and/or legal pest control service representative. The risks, benefitsand alternatives were reviewed. Questions regarding anesthesia were answered. Patient and/or legal pest control service representative knows such anesthetics and procedures may be performed by Resident physicians, Certified Anesthesiologist Assistants, or Certified Nurse Anesthetists under the supervision of a physician. The patient /or the patient s legal pest control service representative agree with the plan for anesthesia. [employer] documented in this [id number] Surgical operation note* Anesthesia Postprocedure Evaluation - [...] apnea Dental ROS (+) teeth problems Endo sagger preparer (-) not (negative in clinic today) Neuro/Psych [...] were discussed with the patient and/or legal pest control service representative. The risks, benefitsand alternatives were reviewed. Questions regarding anesthesia were answered. Patient and/or legal pest control service representative knows such anesthetics and procedures may be performed by Resident physicians, Certified Anesthesiologist Assistants, or Certified Nurse Anesthetists under the supervision of a physician. The patient /or the patient s legal pest control service representative agree with the plan for anesthesia. [employer] documented in this [id number] Anesthesiology Postoperative evaluation and management note* Anesthesia Transfer Of Care - Domingo CarrionIMAN- RAVINDRA - 12/15/2023 9:24 AM EDT Patient recovered by UNIT SUPERVISOR in room. Patient is awake, comfortable, and [...] DENTAL RESTORATIONS; Surgeon: Bhavin Valdovinos DDS; Location: [facility] [place]; Service: Dental CHOLECYSTECTOMY (2009) Per OSH H+P 08/2018 DENTAL RESTORATIONS (09/15/2018) Procedure: DENTAL RESTORATIONS; Surgeon: Og Mahoney DDS; Location: [facility] [place]; Service: Dental DENTAL RESTORATIONS (07/14/2020) Procedure: DENTAL RESTORATIONS; Surgeon: Og Mahoney DDS; Location: [facility] [place]; Service: Dental Allergies: Abilify, Amoxicillin, Depakote [valproic acid], Food, Metyrosine, Moban [molindone], Nubain [nalbuphine], Sympathomimetics, and Vicks 44 cough relief [dextromethorphan hbr] Basic Operating Room Facts: * No surgeons listed * Anesthesiologist: Orquidea Florez MD UNIT SUPERVISOR: Domingo Carrion APRN-CRNA DENTAL VISIT Intraoperative Events: [...] of the report was received. MAXIMO Soliz [employer] Work Phone: 1(968) 781-598610-24-2024 Miscellaneous Notes* Anesthesia Transfer Of Care - Domingo Carrion APRN-CRNA - 12/15/2023 9:24 AM EDT Patient recovered by UNIT SUPERVISOR in room. Patient is awake, comfortable, and [...] DENTAL RESTORATIONS; Surgeon: Bhavin Valdovinos DDS; Location: [facility] [place]; Service: Dental CHOLECYSTECTOMY (2009) Per OSH H+P 08/2018 DENTAL RESTORATIONS (09/15/2018) Procedure: DENTAL RESTORATIONS; Surgeon: Og Mahoney DDS; Location: [facility] [place]; Service: Dental DENTAL RESTORATIONS (07/14/2020) Procedure: DENTAL RESTORATIONS; Surgeon: Og Mahoney DDS; Location: [facility] [place]; Service: Dental Allergies: Abilify, Amoxicillin, Depakote [valproic acid], Food, Metyrosine, Moban [molindone], Nubain [nalbuphine], Sympathomimetics, and Vicks 44 cough relief [dextromethorphan hbr] Basic Operating Room Facts: * No surgeons listed * Anesthesiologist: Orquidea Florez MD UNIT SUPERVISOR: Domingo Carrion APRN-RAVINDRA DENTAL VISIT Intraoperative Events: [...] was received. MAXIMO Soliz documented in this [id number] History of Present illness Narrative* Marleni Alejandro DDS - 12/15/2023 8:53 AM EDT ----- November at 9:52:24 AM ----- ----- Provider: Orlando Alejandro Resident -- Clinic: [place] ----- PT WAS SEEN IN [facility] UNDER TWILIGHT SEDATION WITH ANESTHESIA TEAM [...] status of dentition on the charting. COMPOSITE SIKHISM Patient is scheduled for Mormonism on tooth #26 surface B5. Topical Benzocaine gel applied at theinjection site for 2 minutes. Administered 0.5 carpules of Lidocaine, 2% with Epinephrine 1:100,000,. Isolation achieved. Decay/existing hoahaoism removed, cavity prepared. Selectively etched enamel with 37% phosphoric acid, rinsed, and blot dried. OptiBond bowles applied and light-cured. Condensed packable composite shade A2 in light cured increments. Finished with finishing burs, checked occlusion, verified proximal contacts and hoahaoism was polished. SIMPLE EXTRACTION tooth # 7 [...] medications Next visit: Restorative under IV sedation [facility] ----- Signed on November at 10:18:01 AM ----- ----- Provider: Shelby Frias DMD -- Clinic: [place] ----- documented in this [id number] Progress note* Blood Attestation - Orquidea Florez MD - 12/15/2023 8:26 AM EDT Blood Attestation: ATTESTATION OF INFORMED CONSENT FOR BLOOD: The transfusion of blood and/or blood components were discussed with the patient and/or legal pest control service representative. The risks, benefits and alternatives were reviewed. Questions regarding blood transfusions were answered. The patient /or the patient s legal pest control service representative agree with the plan for transfusion of blood and/or blood components. [facility] Work Phone: 1(136) 474-353610-24-2024 Miscellaneous Notes* Blood Attestation - Orquidea Florez MD - 12/15/2023 8:26 AM EDT Blood Attestation: ATTESTATION OF INFORMED CONSENT FOR BLOOD: The transfusion of blood and/or blood components were discussed with the patient and/or legal pest control service representative. The risks, benefits and alternatives were reviewed. Questions regarding blood transfusions were answered. The patient /or the patient s legal pest control service representative agree with the plan for transfusion of blood and/or blood components. 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 The risks, benefitsand alternatives were reviewed. Questions regarding anesthesia were answered. Patient and/or legal pest control service representative knows such anesthetics and procedures may be performed by Resident physicians, Certified Anesthesiologist Assistants, or Certified Nurse Anesthetists under the supervision of a physician. The patient /or the patient s legal pest control service representative agree with the plan for anesthesia. [employer] [id number] History of Present illness Narrative* Ivory Hannah, DIRECTOR LIFE SCIENCES-LOCATION MAN - 12/09/2023 12:40 PM EDT Images from [...] for any new/changing lesions [id number] Telephone encounter Note* Telephone Encounter - Idania Campbell RN - 11/23/2023 2:56 PM EDT Anesthesia consent obtained and scanned into Mapp. Scheduled for surgery 12/15/2023. [id number] Miscellaneous Notes* Telephone Encounter - Idania Campbell RN - 11/23/2023 2:56 PM EDT Anesthesia consent obtained and scanned into Mapp. Scheduled for surgery 12/15/2023. documented in this [id number] NoteDo not eat or drink anything after [...] the Pre Admission Testing (PAT) department at [phone], or your surgeon's office, with any additional questions.[facility] [id number] History of Present illness Narrative* Bhanu Ramirez DPM FACFAS - 11/09/2023 9:00 AM EDT Images from the original note were not included. patient: Migdalia Card : 1985 PCP: Lio Muñoz MD SUBJECTIVE [...] Diagnosis Date ADHD (attention deficit hyperactivity disorder) ([facility]) Alteration of consciousness Anger reaction Astigmatism Bipolar disorder ([facility]/HCC) Convulsions ([facility]) Developmental delay GERD (gastroesophageal reflux disease) Hypercholesterolemia ([facility]/HCC) Hyperopia Hypertension ([facility]/HCC) Impulse control disorder ([facility]/HCC) Intellectual disability ([facility]/HCC) Mental disorder Mental retardation, mild Mood disorder ([facility]/HCC) OCD (obsessive compulsive disorder) ([facility]/HCC) Osteopenia PTSD (post-traumatic stress disorder) ([facility]) Seizures ([facility] [facility]) Medications: Current Outpatient Medications: acetaminophen (Tylenol) 325 [...] subungual debris. They were painful to palpation 21531 on the right 53878 on the left. VASC: DP /PT were nonpalpable bilateral. Capillary refill time < 3 seconds Digits 1-5 bilateral NEURO: [place] Ami 5.07 monofilament was intact B/L. Vibratory [...] both in length and thickness 1through 10. DAY Laura documented in this encounterBarnes-Jewish Saint Peters [id number] History of Present illness Narrative* Case Melchor MD - 10/27/2023 9:30 AM EDT Images from the original note were not included. Date of Service: 10/24/23 PCP:Dr. Lio Muñoz History of Present Illness Migdalia Card is a 38 y.o. female, who is [...] results found for: IRONSAT , FERRITIN , [id number] , FOLATE Mineral and Bone Labs: No [...] of your patients! Please contact me at [phone] (Office) or [phone] (Answering service) with any questions. CASE MELCHOR MD [facility] This note was created with the assistance of a speech-recognition program. Although the intention is to generate a document that actually reflects the content of the visit, no guarantees can be provided that every mistake has been identified and corrected by editing. documented in [facility] History of Present illness Narrative* Lizandro Veronica, HALINA - 10/19/2023 10:05 AM EDT ----- Tuesday, October 19, 2023 at 11:01:41 AM ----- ----- Provider: [id number] Sukhdeep -- Clinic: [place] ----- LIMITED EXAM Patient presents for Emergency [...] consented to treatment today. Pt here with relationship advisor to discuss IV sedation as a quicker [...] sedation. Informed both the patient and the relationship advisor. Treatment request for IV sedation will be sent for the patient. Next Visit: IV sedation and appropriate treatment. ----- Signed on Thursday, October 19, 2023 at 1:27:08 PM ----- ----- Provider: [id number] - Og Obrien DDS -- Clinic: [place] ----- documented in this [id number] Miscellaneous Notes* Telephone Encounter - Cesia Lang - 08/01/2023 3:02 PM EDT Wolfgang Rachel called and requested the last progress note to be faxed to [phone]. Faxed note. documented in this encounterRegency [facility]06-10-2024 Telephone encounter Note* Telephone Encounter - Cesia Lang - 08/01/2023 3:02 PM EDT Wolfgang Rachel called and requested the last progress note to be faxed to [phone]. Faxed note. [facility] History of Present illness Narrative* Case Melchor MD - 07/28/2023 2:30 PM EDT Date of Service: 07/28/23 Reason for Referral: Hyponatremia Referring Physician: Damien Jones, BLANCA* History of Present Illness Migdalia Card is a 38 y.o. female, who was [...] constantly. She is a resident at the [facility] full- [facility]. She is reasonably functional. Her [...] results found for: IRONSAT , FERRITIN , [id number] , FOLATE Mineral and Bone Labs: No [...] of your patients! Please contact me at [phone] (Office) or [phone] (Answering service) with any questions. CASE MELCHOR MD [facility] This note was created with the assistance of a speech-recognition program. Although the intention is to generate a document that actually reflects the content of the visit, no guarantees can be provided that every mistake has been identified and corrected by editing. documented in this encounterRegency Hospital [facility]04-10-2024 Discharge summary Author Rico Romero [facility] June 01, 2023 3:06pm Note Date/Time June 01, 2023 12: 23pm [facility] [address] [place], [place] [id number] Discharge Summary Signed Patient: Migdalia Card MR#: [id number] : 1985 Acct:[id number] Age/Sex: 37 / F Adm Date: 4 Loc: 4N Room: 1B0060-[address]: Rico Romero DO Copies to: Lio Muñoz, DO Rico Romero DO~ Providers Date of [...] with developmental delay who lives at the [facility]. She had been cared for at [...] before she will be transferred back to [place]. She was also given the discharge instructions [...] % (Auto) N/A, Lymph % (Auto) N/A, Ferry % (Auto) N/A, Eos % (Auto) N/A, Baso % (Auto) N/A, Nucleat RBC Rel Count N/A, Neut # (Auto) N/A, Lymph # (Auto) N/A, Ferry # (Auto) N/A, Eos # (Auto) N/A, [...] <Electronically signed by Rico Romero DO> 06/01/23 2786 [facility] Work Phone: 1(811) 788-810204-09-2024 Progress note Author Rico Romero [facility] May 31, 2023 11:47am Note Date/Time May 31, 2023 11:4 7am [facility] [address] [place] [address] Hospitalist Progress Note Signed Patient: Migdalia Card MR#: [id number] : 1985 Acct:[id number] Age/Sex: 37 / F Adm Date: 4 Loc: 4N Room: 0T4201-4 Type: ADM IN Attending Dr: Rico Romero [...] Tablet PO 05/28/24 19:29 20 mg BID@ [facility] Administration Diphenhydramine HCl 25 mg 05/29/23 15:51 05/31/23 02:33 Diphenhydramine 25 Mg Capsule PO 05/28/24 15:50 25 mg Q8H PRN Administration Severe rash or Itching Docusate Sodium 200 mg 05/29/23 19:30 05/31/23 08:17 Docusate 100 Mg Capsule PO 05/28/24 19:29 200 mg BID@899,1929 [facility] Administration Emollient Ointment 1 applic 05/29/23 18:01 05/30/23 11:30 Petrolatum,White 99 Gm Oint...G. TOPICAL 1 applic BID PRN Administration dry skin Enoxaparin Sodium 40 mg 05/30/23 10:00 05/31/23 08:18 Enoxaparin 40 Mg/0.4 Ml Syringe SUBCUT 05/29/24 09:59 40 mg DAILY@10 [facility] Administration Fenofibrate 145 mg 05/29/23 19:30 05/30/23 20:04 Fenofibrate Nanocrystallized 145 Mg Tablet PO 05/28/24 19:29 145 mg DAILY@1930 KATHARINE Administration Fluticasone Propionate 2 spray 05/29/23 18:01 Fluticasone Propionate [place] 120 [place]/16 Gm Bottle INTRANASAL 05/28/24 18:00 DAILY PRN allergy symptoms Guanfacine HCl 2 mg 05/29/23 19:30 05/31/23 08:15 Guanfacine 1 Mg Tablet PO 05/28/24 19:29 2 mg TID@0900,1400,1930 KAHTARINE Administration Hydralazine HCl 10 mg 05/29/23 16:01 [...] Tablet PO 05/29/24 08:59 10 mg DAILY KATHARNIE Administration Non-Formulary Medication 1 applic 05/29/23 21:00 [...] Mg Tab.Er.24 PO 05/28/24 19:29 6 mg BID@0900,0 KATHARINE Administration Pantoprazole Sodium 40 mg 05/30/23 [...] signed by Rico Romero DO> 05/31/23 114[address] [facility] Work Phone: 1(154) 278-789904-08-2024 Progress note Author Anamaria Benton [facility] May 30, 2023 12:21pm Note Date/Time May 30, 2023 12:[facility] [address] [place] [address] Hospitalist Progress Note Signed Patient: Migdalia Card MR#: [id number] : 1985 Acct:[id number] Age/Sex: 37 / F Adm Date: 4 Loc: 4N Room: 4W3459-9 Type: ADM INOo Attending Dr: Anamaria Benton [...] Mg Capsule PO 05/28/24 19:29 40 mg DAILY@193 KATHARINE Administration Bisacodyl 10 mg 05/29/23 15:58 [...] Mg Tab.Er.12h PO 05/28/24 19:29 400 mg DAILY@193 KATHARINE Administration Clonidine HCl 0.2 mg 05/29/23 19:30 05/30/23 11:29 Clonidine 0.2 Mg Tablet PO 05/28/24 19:29 0.2 mg 0900,1400,0 KATHARINE Administration Diazepam 5 mg 05/29/23 18:15 Diazepam 5 Mg Tablet PO 11/25/23 18:14 ONCE PRN 1 HOUR PRIOR TO PROCEDURE Dicyclomine HCl 20 mg 05/29/23 19:30 05/30/23 08:25 Dicyclomine 20 Mg Tablet PO 05/28/24 19:29 20 mg BID@0900,0 KATHARINE Administration Diphenhydramine HCl 25 mg 05/29/23 [...] Tablet PO 05/28/24 19:29 145 mg DAILY@1930 [facility] Administration Fluticasone Propionate 2 spray 05/29/23 18:01 Fluticasone Propionate [place] 120 [place]/16 Gm Bottle INTRANASAL 05/28/24 18:00 DAILY PRN [...] Mg Tablet PO 05/28/24 19:29 30 mg DAILY@193 KATHARINE Administration Paliperidone 6 mg 05/29/23 19:30 05/30/23 08:25 Paliperidone 24hr Er 6 Mg Tab.Er.24 PO 05/28/24 19:29 6 mg BID@0900,1929 KATHARINE Administration Pantoprazole Sodium 40 mg 05/30/23 09:00 05/30/23 08:25 Pantoprazole 40 Mg Tablet. PO 05/29/24 08:59 [...] Anamaria Benton MD> 05/30/23 1221 [facility] Work Phone: 1(867) 639-163804-07-2024 History and physical note Author Arvind Regan [facility] May 29, 2023 4:12pm Note Date/Time May 29, 2023 4:01 pm [facility] [address] [place] [address] Hospitalist H&P Signed Patient: Migdalia Card MR#: [id number] : 1985 Acct:[id number] Age/Sex: 37 / F Adm Date: 4 Loc: 4N Room: [address] [place] [address] Type: ADM INOo Attending Dr: Arvind Regan DO Copies to: NON STAFF Arvind Regan DO~ HPI DATE OF EXAMINATION: 05/29/23 CHIEF COMPLAINT: Concern for worsening facial cellulitis HISTORY OF PRESENT ILLNESS: This is a 37-year-old female with MRDD who lives in a [facility] who presents [facility] with her caregiver with concern for worsening facial cellulitis. Patient was just discharged from [facility] on Tuesday after being treated for [...] negative unless noted below or in HPI [facility] Medical History (Updated 05/29/23 @ 16:10 [...] Verified 05/29/23 13:05) Unknown Reaction phenylpropanolamine [From VicRossolini DayQuil] Allergy (Unknown, Verified 05/29/23 13:05) Unknown [...] 13:36 Lymph % (Auto) N/A 05/29/23 13:36 Ferry % (Auto) N/A 05/29/23 13:36 Eos % (Auto) N/A 05/29/23 13:36 Baso % (Auto) N/A 05/29/23 13:36 Nucleat RBC Rel Count N/A 05/29/23 13:36 Neut # (Auto) N/A 05/29/23 13:36 Lymph # (Auto) N/A 05/29/23 13:36 Ferry # (Auto) N/A 05/29/23 13:36 Eos # [...] periorbital cellulitis where she was hospitalized at [facility] and treated with IV antibiotics and [...] <Electronically signed by Arvind Regan DO> 05/29/23 0890 [facility] Work Phone: 1(242) 758-781504-03-2024 Miscellaneous Notes* Telephone Encounter - Cesia Lang - 05/25/2023 11:38 AM EDT Called and scheduled new pt appt with nurse from [facility]. Labs ordered and faxed to facility. documented in this encounterGal[facility] Reach Clothing [id number] Telephone encounter Note* Telephone Encounter - Cesia Lang - 05/25/2023 11:38 AM EDT Called and scheduled new pt appt with nurse from [facility]. Labs ordered and [facility]ed to facility. [facility] History of Present illness Narrative* Scarlett Albarran DDS - 06/10/2022 1:29 PM EDT ----- May at 3:52:48 PM ----- ----- Provider: [id number] Ginna -- [place] ----- OR EVALUATION Patient presents for evaluation [...] treatment in the OR was sent out [phone] NOTE: Note: Pt seen in the OR about 2 years ago. Next Visit: OR ----- Signed on May at 4:11:20 PM ----- ----- Provider: Satinder Obrien DDS -- Clinic: [place] ----- documented in this encounterMetroHealthEvaluation + Plan note No data available for this section [facility]* Diagnosis Onset Date Resolution Status Periorbital cellulitis acute [facility] Work Phone: Evaluation note* Diagnosis Onset Date Resolution Status Bipolar disorder acute Failure of outpatient treatment acute Hypercholesterolemia acute Hypertension acute Moderate intellectual disability acute Periorbital cellulitis acute PTSD (post-traumatic stress disorder) acute Seizure disorder acute [facility] Work Phone: Evaluation note* Diagnosis Onset Date Resolution Status Bipolar disorder acute Hypercholesterolemia acute Hypertension acute PTSD (post-traumatic stress disorder) acute Seizure disorder acute Periorbital cellulitis resol shana [facility] Work Phone: Evaluation note* Diagnosis Caries- [...] aggressive type, unspecified documented in this encounter [facility] HealthcareEvaluation note* Diagnosis Hyponatremia- Primary Hyposmolality and/or hyponatremia documented [facility] this encounter [facility] Diagnosis Hyponatremia- Primary Hyposmolality and/or hyponatremia documented in this [facility]* Diagnosis Hyponatremia- Primary Hyposmolality and/or hyponatremia documented in this encounter [facility]* Diagnosis Convulsions, unspecified convulsion type (CMS/HCC)- Primary Hyponatremia Hyposmolality and/or hyponatremia Developmental delay Unspecified delay in development Anger reaction Undersocialized conduct disorder, aggressive type, unspecified documented in this encounter [facility] HealthcareEvaluation note* Diagnosis Encounter for breast and pelvic examination- Primary [facility]* Diagnosis Onychocryptosis- Primary Ingrowing nail Pain in left toe(s) Abscess, toe, left documented in this encounter [facility] HealthcareEvaluation note* Diagnosis Abscess, toe, left- Primary Onychocryptosis Ingrowing nail documented in this encounter [facility] HealthcareEvaluation note* Diagnosis Exostosis of right foot- Primary Other enthesopathy of right foot and ankle Pain in right toe(s) Right foot pain Pain in soft tissues of limb Onychomycosis Dermatophytosis of nail Pain in left toe(s) documented in this encounter [facility] HealthcareEvaluation note* Diagnosis Mastodynia, female- Primary Mass of right breast, unspecified quadrant [facility] this encounter [facility]* Diagnosis Caries- Primary Unspecified dental caries documented in this encounter [facility]* Diagnosis Mass of right breast, unspecified quadrant- Primary Breast skin changes Mastodynia, female documented in this encounter [facility]* Diagnosis Exostosis of right foot- Primary Other enthesopathy of right foot and ankle Right foot pain Pain in soft tissues of limb documented in this encounter [facility] HealthcareEvaluation noteNo assessment information availableSelect Medical [facility] Work Phone: Evaluation note* Diagnosis Mastodynia, female- Primary documented in this encounter [facility] SystemHistory and physical note Author Arvind Regan [facility] May 29, 2023 4:12pm Note Date/Time May 29, 2023 4:01 pm [facility] [address] [place] [address] Hospitalist H&P Signed Patient: Migdalia Card MR#: [id number] : 1985 Acct:[id number] Age/Sex: 37 / F Adm Date: 4 Loc: 4N Room: 7D6279-2 Type: ADM INOo Attending Dr: Arvind Regan DO Copies to: NON STAFF Arvind Regan DO~ HPI DATE OF EXAMINATION: 05/29/23 CHIEF COMPLAINT: Concern for worsening facial cellulitis HISTORY OF PRESENT ILLNESS: This is a 37-year-old female with MRDD who lives in a [facility] who presents [facility] with her caregiver with concern for worsening facial cellulitis. Patient was just discharged from [facility] on Tuesday after being treated for [...] negative unless noted below or in HPI [facility] Medical History (Updated 05/29/23 @ 16:10 [...] 13:36 Lymph % (Auto) N/A 05/29/23 13:36 Ferry % (Auto) N/A 05/29/23 13:36 Eos % (Auto) N/A 05/29/23 13:36 Baso % (Auto) N/A 05/29/23 13:36 Nucleat RBC Rel Count N/A 05/29/23 13:36 Neut # (Auto) N/A 05/29/23 13:36 Lymph # (Auto) N/A 05/29/23 13:36 Ferry # (Auto) N/A 05/29/23 13:36 Eos # [...] periorbital cellulitis where she was hospitalized at [facility] and treated with IV antibiotics and [...] Arvind Regan DO> 05/29/23 1612 [facility] Work Phone: Hospital Discharge instructions No data available for this section [facility] Dis[facility] instructions Additional Instructions DO continue to finish all of the antibiotic pills that was prescribed by Radha: Doxycycline. DO NOT take any of the prednisone that was prescribed by Radha. This is not needed anymore. DO take the extra antibiotic we are sending home at this time: Avelox.[facility] Work Phone: Hospital Discharge instructions Additional Instructions Take simethicone as prescribed for abdominal distention. Take Metamucil Colace and MiraLAX as prescribed constipation. Make sure to take drinking plenty of water each day. Take Naprosyn as prescribed for headache. Follow-up with your primary care provider for ongoing treatment.[facility] Work Phone: InstructionsNot on filedocumented in this encounter [facility] SystemInstructionsNot on filedocumented in this encounter [facility] SystemInstructionsNot on filedocumented in this encounter [facility] SystemInstructionsNot on filedocumented in this encounter [facility] SystemInstructionsNot on filedocumented in this encounter [facility] SystemInstructionsNot on filedocumented in this encounter [facility] SystemInstructionsNot on filedocumented in this encounter [facility] SystemProcedure anesthesia Narrative* Procedure Summary Procedure Name Responsible Anesthesiologist Anesthesia Start Time Anesthesia Stop Time DENTAL VISIT Orquidea Florez MD 12/15/23 0832 4 0925 Events Date Time Event Comment 12/15/2023 0810 0832 An Start Data 0832 An Start 0833 Preinduction Verify The [facility] team has reviewed the patient's vital [...] the receiving nurse in the receiving unit. 0925 AN Stop Meds Name Total glycopyrrolate (ROBINUL) [...] Wound 06/09/12 06/09/12 0000 by Carola Hansen, seismic prospecting observer helper Wound 09/15/18; 1148; Inci jae; N/A; Mouth [...] 0832 An Start 0833 Preinduction Verify The [facility] team has reviewed the patient's vital [...] 0843 Anesthesia Release 09 an stop data 0924 Handoff I completed [...] Felix Oro, RN Airway Adjunct 12/15/23; 0833; Nasa l Cannula; 12/15/23; 0920 12/15/23 0833 by Domingo Carrion APRN-CRNA 12/15/23 0920 by Domingo Carrion APRN-CRNA documented in this encounter [facility] note No data available for this section [facility] HospitalReason for referral (narrative)No reason for referral information availableSelect Medical [facility] Work Phone: Reason for visit Narrative* Service Level Authorization (Routine) - Closed Specialty Diagnoses / Procedures Referred By Delilah t Referred To Contact Anesthesiology Diagnoses Caries Sabra Frias, DMD [address] [place] [address] Phone: tel: fax: [facility] PRE ADMISSION TEST[facility] [address] [place] [address] Phone: tel: Referral ID Status Reason Start Date Expiration Date Visits Re quested Visits Authorized [id number] Closed 12/15/2023 12/14/2024 1 1 [facility] for visit Narrative* Consultation (Routine) - Pending Review Specialty Diagnoses / Procedures Referred By Delilah ball Referred To Contact Nephrology Diagnoses Hyponatremia Damien Jones, IMAN-LOCATION MAN [address] [place] [id number] Phn Nephrology geni [address] [place] [phone] Referral ID Status Reason Start Date Expiration Date Visits Requested Visits Authorized [id number] Pending Review Specialty Services Required 05/24/2023 05/23/2024 1 1 [facility] Summary Purpose Family History No Family History [...] (post-traumatic stress disorder) Seizure disorder Periorbital cellulitis Chief Complaint Admit Date Unknown Negrita 3rd, 2025 6:07p m Reason for Referral Specialty Diagnoses / Procedures Referred By Contac t Referred To Contact Anesthesiology Diagnoses Caries Sabra Frias, DMD [address] [place] [address] [facility] [address] [place] [address] Referral ID Status Reason Start Date Expiration Date V isits Requested Visits Authorized [id number] Authorized 12/15/2023 12/14/2024 1 1 Scheduling Instructions Your surgical team will reach out to you to schedule a pre-admission testing appointment. Question Answer Reason for consult? Recommended PAT Risk Score Specialty Diagnoses / Procedures Referred By Contac t Referred To Contact Anesthesiology Diagnoses Caries Og Mahoney, HALINA [address] [place] [phone] [facility] [address] [place] [phone] Referral ID Status Reason Start Date Expiration Date V isits Requested Visits Authorized [id number] Authorized 10/19/2023 10/18/2024 1 1 Scheduling Instructions Your surgical team will reach out to you to schedule a pre-admission testing appointment. Question Answer Reason for consult? Recommended PAT Risk Score Additional Source Comments INFORMATION SOURCE (unrecogn ized section and content) DATE CREATED AUTHOR 05/12/2018 [facility] DATE CREATED AUTHOR AUTHOR'S ORGANIZ ATION 07/30/2022 [facility] DATE CREATED AUTHOR AUTHOR'S ORGANIZ ATION 04/21/2023 [facility] DATE CREATED AUTHOR AUTHOR'S ORGANIZ ATION 08/12/2024 [facility] DATE CREATED AUTHOR AUTHOR'S ORGANIZ ATION 08/12/2024 [facility] DATE CREATED AUTHOR AUTHOR'S ORGANIZ ATION 08/23/2024 [facility] DATE CREATED AUTHOR AUTHOR'S ORGANIZ ATION 08/26/2024 [facility] DATE CREATED AUTHOR AUTHOR'S ORGANIZ ATION 09/08/2024 [facility] DATE CREATED AUTHOR AUTHOR'S ORGANIZ ATION 09/24/2024 [facility] Patient Care team informatio n (unrecognized [...] May 30, 2023 End: June 01, 2023 Yazid Jass , DO Admit Provider Active Start: May [...] 2023 End: June 01, 2023 Venita Amanda , DIRECTOR LIFE SCIENCES Emergency Provider Active Start: May 29, 2023 [...] August 06, 2023 End: August 07, 2023 Senior Biostatistician Relationship Specialty Start Date End Date Lio Muñoz MD [address] [place] [address] PCP - General Family Medicine 11/09/23 Ramone Herrera DO [address] [place] [id number] Referring Physician Neurology 05/19/23 Senior Biostatistician Relationship Specialty Start Date End Date Lio Muñoz MD [address] [place] [address] PCP - General Family Medicine 11/09/23 Ramone Herrera DO [address] [place] [id number] Referring Physician Neurology 05/19/23 Senior Biostatistician Relationship Specialty Start Date End Date Lio Muñoz MD [address] [place] [address] PCP - General Family Medicine 11/09/23 Ramone Herrera DO [address] [address] Referring Physician Neurology 05/19/23 Senior Biostatistician Relationship Specialty Start Date End Date Lio Muñoz MD [address] [place] [address] PCP - General Family Medicine 11/09/23 Ramone Herrera DO [address] [place] [phone] Referring Physician Neurology 05/19/23 Senior Biostatistician Relationship Specialty Start Date End Date Lio Muñoz MD [address] [place], [place] [id number] PCP - General Family Medicine 11/09/23 Ramone Herrera DO [address] [place] [id number] Referring Physician Neurology 05/19/23 Senior Biostatistician Relationship Specialty Start Date End Date Lio Muñoz MD [address] [place] [address] PCP - General Family Medicine 11/09/23 Ramone Herrera DO [address] [place] [phone] Referring Physician Neurology 05/19/23 Senior Biostatistician Relationship Specialty Start Date End Date Lio Muñoz MD [address] [place], [place] [id number] PCP - General Family Medicine 11/09/23 Ramone Herrera DO [address] [place] [id number] Referring Physician Neurology 05/19/23 Senior Biostatistician Relationship Specialty Start Date End Date Lio Muñoz MD [address] [place] [address] PCP - General Family Medicine 11/09/23 Ramone Herrera DO [address] [place] [address] Referring Physician Neurology 05/19/23 Senior Biostatistician Relationship Specialty Start Date End Date Lio Muñoz MD [address] [place] [address] PCP - General Family Medicine 11/09/23 Ramone Herrera DO [address] [place] [id number] Referring Physician Neurology 05/19/23 Senior Biostatistician Relationship Specialty Start Date End Date Lio Muñoz MD [address] [place], [place] [id number] PCP - General Family Medicine 11/09/23 Ramone Herrera DO [address] [phone] Referring Physician Neurology 05/19/23 Senior Biostatistician Relationship Specialty Start Date End Date Lio Muñoz MD [address] [place] [id number] PCP - General Family Medicine 11/09/23 Ramone Herrera DO [address] [phone] Referring Physician Neurology 05/19/23 Senior Biostatistician Relationship Specialty Start Date End Date Lio Muñoz MD [address] [place], [place] [phone] PCP - General Family Medicine 11/09/23 Ramone Herrera DO [address] [phone] Referring Physician Neurology 05/19/23 Senior Biostatistician Relationship Specialty Start Date End Date Lio Muñoz DO [address] [place] [address] PCP - General Family Medicine 08/07/24 Senior Biostatistician Relationship Specialty Start Date End Date Lio Muñoz DO [address] [place] [address] PCP - General Family Medicine 08/07/24 Senior Biostatistician Relationship Specialty Start Date End Date Lio Muñoz MD [address] [phone] (Work) PCP - General Family Medicine 11/09/23 Ramone Herrera DO [address] [place] [address] Referring Physician Neurology 05/19/23 Senior Biostatistician Relationship Specialty Start Date End Date Lio Muñoz MD [address] [place] [address] PCP - General Family Medicine 11/09/23 Ramone Herrera DO [address] [place] [address] Referring Physician Neurology 05/19/23 Team Status: Inactive Member Role Status Dates Lio Muñoz DO Attending Provider Active Start: August 23, 2024 End: August 23, 2024 Senior Biostatistician Relationship Specialty Start Date End Date Lio Muñoz DO [address] [phone] PCP - General Family Medicine 08/07/24 Goals (unrecognized section and content) Goals may be documented in a n alternate section Reason for Visit (unrecogniz ed section and content) Reason Onset Date Comments PAT 11/23/2023 Anesthesia conse nt obtained Reason Comments Toenail Care Non dm nail care Reason Comments Toenail Care Non DM nail care Reason Comments Convulsions Reason Comments Seizures Reason Comments Medicare breast and Pelvic Reason Comments Ingrown Toenail Lt great toenail Reason Comments Follow-up F/U LT grt nail avul jae Reason Comments Toenail Care Non DM nail care Foot Pain RT foot pain Reason Comments Breast Lump Reason Comments New Patient Mass Right breast mass Specialty Diagnoses / Procedures Referred By Contac t Referred To Contact Breast Surgery Diagnoses Mastodynia, female Mass of right breast, unspecified quadrant Linn Red MD [address] [facility] [place] [address] Phone: tel: fax: Yesenia Serrano MD [address] [phone] Phone: tel: fax: Referral ID Status Reason Start Date Expiration Date V isits Requested Visits Authorized [id number] Pending Review 08/07/2024 08/07/2025 1 1 Reason Comments Injections F/U RT foot joint in j x1 Reason Comments Follow-up FOR RECORDS PERTAINING TO PATIENTS WHO ARE [...] BE BASED ON THE PRIMARY CLINICAL RECORDS. [facility] [employer] provides no warranty or guarantee of the accuracy or completeness of information in this document.
[2024-09-28 06:53] LABS: Hematocrit 37.5 % (36.0-48.0); Hemoglobin 12.6 g/dL (12.0-16.0); Immature Granulocytes Abs Auto 0.01 10^3/uL (0.00-0.03); Immature Granulocytes Pct Auto 0.2 % (0.0-0.5); Lymphocytes Absolute Auto 2.2 10^3/uL (1.2-3.8); Mean Corpuscular HGB Conc 33.6 g/dL (29.9-35.2); Mean Corpuscular Hemoglobin 31.1 pg (26.7-34.0); Mean Corpuscular Volume 92.6 fL (81.0-99.0); Platelet Count 359 10^3/uL (150-450); Red Blood Count 4.05 10^6/uL (4.20-5.40); White Blood Count 5.7 10^3/uL (4.0-11.0)
[2024-09-28 07:04] LABS: Anion Gap 15.2; Blood Urea Nitrogen 9.0 mg/dL (7.0-18.0); Calcium 9.5 mg/dL (8.5-10.1); Carbon Dioxide 25.2 mmol/L (21.0-32.0); Chloride 100 mmol/L (98-107); Estimated GFR (African America >60 (>=60 mL/min/1.73m^2); Estimated GFR (Non-African Ame >60 (>=60 mL/min/1.73m^2); Glucose 98 mg/dL (74-106); Potassium 4.4 mmol/L (3.5-5.1); Sodium 136 mmol/L (136-145)
== END 2024-09-28 06:33 | disposition home or self-care (01) ==
LOC: LAB 06:32
PROVIDERS: PCP Family Medicine; Visit Provider Family Medicine
DX: K59.00 Constipation, unspecified (principal); I10 Essential (primary) hypertension; G40.909 Epilepsy, unspecified, not intractable, without status epilepticus; K21.9 Gastro-esophageal reflux disease without esophagitis; Z79.899 Other long term (current) drug therapy; F31.9 Bipolar disorder, unspecified
CPT/HCPCS: 36415; 80048; 85025

== ENCOUNTER 2024-10-06 06:31 | Outpatient (OUT) | payer MEDICARE, MEDICAID, SELFPAY ==
--- NOTE | 2024-10-06 | XR_ITS ---
The [address] [address] Patient Name: PJ CARD MRN: [id number] date: 1985 Sex: F Assigned Patient Location: LAB Current Patient Location: LAB Accession/Order Number: [id number] Exam Date: 10/06/2024 09:16 Report Date: 10/06/2024 09:17 At the request of: JOHN MUNROE DO Procedure: XR abdomen 1V KUB: CLINICAL INFORMATION: Abdominal pain COMPARISON: None FINDINGS: No bowel obstruction or free air. Osseous structures demonstrate degenerative change. XR/XR abdomen 1V IMPRESSION: No acute process. Impression dictated by: Rickie Smith Jr., D.O. 10/06/2024 9:17 AM Dictation Location: [employer] ([place]) TechnologyFERRY COUNTY MEMORIAL HOSPITALChujian Electronically authenticated by: [id number] Date: 10/06/2024 09:17
--- OUTSIDE RECORDS SUMMARY | 2024-10-06 06:35 | XMS_ITS | CCD ---
Author Organization [facility] [employer] Care Team Providers Care Directory Compiler Name Role Phone SYSTEM, PROVIDER NOT IN Admitting Unavaila ble SYSTEM, PROVIDER NOT IN Referring Unavaila ble EVANS KILGORE Primary Care Unavailable Unavailable Primary Care Provider Unavailabl e MUÑOZ, DR LIO Gates Consulting Unavailable [...] Care Unavailable LIO MUÑOZ Primary Care Physician [phone] LIO MUÑOZ Attending Unavailable MUÑOZ, LIO Admitting Unavailable MUÑOZ, LIO Attending Unavailable MUÑOZ, LIO Admitting Unavailable NON STAFF Primary Care Provider Unavailabl e IMAN Amanda Emergency Provider DO Arvind Regan Admit Provider DO Arvind Regan Attending Provider IMAN Amanda Emergency Provider DO Jass Yazid Admit Provider DO Rico Romero Attending Provider DO Lio Muñoz Primary Care Provider [phone] DO Titi Terry Emergency Provider ЕленаndRamone Mcguire DO Unavailable Lio Muñoz MD Primary Care Provider Unavailable Primary Care Provider Unavailabl e Unavailable Primary Care Provider Unavailabl e Sharon SUN Christopher Unavailable [phone] MuñozLio aggarwal DO Primary Care Provider EVE HAQUE Attending Unavailable TEOFILO, LINN L Referring Unavailable MUÑOZ, LIO Gates Primary Care Unavailable TEOFILO, LINN Almazan Attending Unavailable TEOFILO, LINN L Referring Unavailable MUÑOZ, LIO Gates Primary Care Unavailable TEOFILO, LINN L Attending Unavailable TEOFILO, LINN L Referring Unavailable MUÑOZ, LIO Gates Primary Care Unavailable Muñoz Lio SUN Attending Provider [phone] MuñozLio aggarwal Admitting Unavailable Muñoz, Lio Gates Attending Unavailable SHOLEYZAID Attending Unavailable TEOFILO, LINN Almazan Attending Unavailable MUÑOZ, LIO Gates Primary Care Unavailable TEOFILO, LINN L Attending Unavailable MUÑOZ, LIO Gates Referring Unavailable MUÑOZ, LIO Gates Primary Care Unavailable Sharon SUN Christopher Unavailable DOLCE, BHANU Juarez Attending Unavailable HILL, VALENTINA Attending Unavailable MUÑOZ, LIO Gates Referring Unavailable DOLCE, BHANU Juarez Attending Unavailable DOLCE, BHANU Juarez Attending Unavailable DOLCE, BHANU Juarez Attending Unavailable DOLCE, BHANU Juarez Attending Unavailable DOLCE, BHANU Juarez Attending Unavailable DOLCE, BHANU Juarez Attending Unavailable FELTER, IVORY Gates Attending Unavailable DOLCE, BHANU Juarez Attending Unavailable DAMIEN JONES Attending Unavailable PROVIDER, UNKNOWN Admitting Unavailable PROVIDER, UNKNOWN Attending Unavailable PROVIDER, UNKNOWN Attending Unavailable AL-MASHNI, OG Referring Unavailable PROVIDER, UNKNOWN Admitting Unavailable PROVIDER, UNKNOWN Attending Unavailable SABRA FRIAS Referring Unavailable PROVIDER, UNKNOWN Admitting Unavailable PROVIDER, UNKNOWN Admitting Unavailable GLENN CHATMAN Attending Unavailable AL-MASHNI, OG Admitting Unavailable AL-MASHNI, OG Attending Unavailable LIZANDRO VERONICA Attending Unavailable PROVIDER, UNKNOWN Admitting Unavailable MARLENI ALEJANDRO Attending Unavailable PROVIDER, UNKNOWN Admitting Unavailable Allergies Allergy Classification Reported Allergen(s) Allergy Type Date of Onset Reaction(s) Facility Adrenergic Agonists (1 source) Pseudoephedrine Drug Allergy 024 Unknown Reaction [facility] ARIPiprazole (1 source) ARIPiprazole Drug Allergy 024 Unknown Reaction [facility] Chlorpheniramine (1 source) Chlorpheniramine Drug Allergy 024 Unknown Reaction [facility] Dextromethorphan (1 source) Dextromethorphan Drug Allergy 024 Unknown Reaction [facility] guaiFENesin (1 source) guaiFENesin Drug Allergy 024 Unknown Reaction [facility] metyroSINE (1 source) metyroSINE Drug Allergy 024 Unknown Reaction [facility] Molindone (1 source) Molindone Drug Allergy 024 Unknown Reaction [facility] Penicillins (antibiotic) (1 source) Amoxicillin Drug Allergy 024 Unknown Reaction [facility] Phenylpropanolamine (1 source) Phenylpropanolamine Drug Allergy 024 Unknown Reaction [facility] Valproate (1 source) Valproate Drug Allergy 024 Unknown Reaction [facility] (20 sources) Amoxicillin; Translations: [AMOXICILLIN] Drug Allergy Unknown [facility] (20 sources) ARIPiprazole; Translations: [Abilify] Drug Allergy [facility] Work Phone: (20 sources) Dextromethorphan; Translations: [DEXTROMETHORPHAN HBR] Drug Allergy [facility] (20 sources) metyroSINE; Translations: [METYROSINE] Drug Allergy 013 Unknown [facility] (20 sources) Molindone; Translations: [MOLINDONE] [...] [facility] (1 source) Amoxicillin Drug Allergy [facility] (1 source) metyroSINE Drug Allergy [facility] (1 source) Molindone Drug Allergy [facility] (1 source) Nalbuphine Drug Allergy [facility] (1 source) Valproate Drug Allergy [facility] (1 source) [address] [address] [facility] Drug allergy (disorder) [facility] (20 sources) ARIPiprazole; Translations: [ARIPIPRAZOLE] Drug Allergy 013 Unknown [facility] (20 sources) Chlorpheniramine Drug Allergy Unknown [facility] (3 sources) Dextromethorphan Drug Allergy Unknown Reaction [facility] (3 sources) guaiFENesin Drug Allergy Unknown Reaction [facility] (3 sources) Phenylpropanolamine Drug Allergy Unknown Reaction [facility] (3 sources) Pseudoephedrine Drug Allergy Unknown Reaction [facility] (3 sources) Valproate Drug Allergy Unknown Reaction [facility] (7 sources) [facility]roSINE [facility] (6 sources) Other; Translations: [OTHER] Propensity to adverse reactions [facility] Medications Current Medications Medication Drug Class(es) Dates Sig (Normalized) Sig (Original) acetaminophen 325 mg oral capsule (20 sources) Start: 08-06-2023 take 2 capsules by mouth twice daily as needed for pain Start: 08-06-2023 take 650 mg by mouth twice daily Acetaminophen Active 650 MG PO Twice daily August 06, 2023 12:00am take 2 tablets by mo [facility] twice daily as needed for pain acetaminophen (TYLENOL) 325 mg tablet Take 650 mg by mouth 2 times daily as needed for Pain or Fever. Active take 1 tablet by kip every four hours as needed acetaminophen (TYLENOL) 325 mg tablet Take 1 tablet (325 mg total) by mouth every 4 (four) hours as needed. Active albuterol 0.83 mg/ml inhalation solution (3 sources) beta2-Adrenergic Agonist Start: 04-02-2025 take 1 dose by inhalation every six hours as needed albuterol (PROVENTIL,VENTOLIN) 2.5 mg /3 mL (0.083 %) nebulizer solution INHALE 1 VIAL VIA NEBULIZER EVERY 6 HOURS NEEDED FOR 2 WEEKS 05/23/2024 Active atomoxetine 60 mg oral capsule (20 sources) Norepinephrine Reuptake Inhibitor Start: 05-29-2023 take 1 capsule by mouth once daily in the morning Start: 04-27-2023 atomoxetine (S trattera) 40 MG capsule 04/27/2023 Active busPIRone hydrochloride 10 mg oral tablet (4 sources) take 1 tablet by mouth twice daily busPIRone (BUSPAR) 10 MG tablet Take 10 mg by mouth 2 times daily. Active calcium carbonate 750 mg chewable tablet (18 sources) Start: 05-29-2023 take 2 tablets by [...] Start: 05-29-2023 take 1 capsule by mo [facility] twice daily Start: 04-26-2023 take 1 [...] in the morning. 07/21/2023 Active Start: 05-29-2023 End: 09-21-2024 Calcium Polycarbophil (FIBER -LAX ORAL) Take by mouth. 09/21/2024 Discontinued Calcium Polycarb ophil (FIBER-LAX ORAL) Take by mouth. Active Calcium Polycarb ophil (FIBER-LAX ORAL) Take by mouth. 0 Active 12 hr carBAMazepine 200 mg extended release oral tablet (20 sources) Mood Stabilizer Start: 09-21-2024 take 1 tablet by mouth twice daily carBAMazepine (TEGRETOL XR) 200 MG SR tablet Take 1 Tablet by mouth 2 times daily. 09/21/2024 Active Start: 05-29-2023 take 1 tablet by kip in the morning, then take 1 tablet [...] May 29, 2023 12:00am Start: 04-27-2023 End: 09-21-2024 take 1 tablet by mouth three times daily carBAMazepine (TEGRETOL XR) 200 MG SR tablet Take 200 mg by mouth 3 times daily. 11/16/2023 09/21/2024 Discontinued End: 09-21-2024 take 1 tablet by mouth once daily carbamazepine (TEGretol-XR) 100 MG XR tablet Take 100 mg by mouth daily. 09/21/2024 Discontinued take 1 capsule by mo [facility] once daily in the evening carBAMazepine ER (CARBATROL) 100 MG CR capsule Take 100 mg by mouth daily. At 4 pm Active carbamazepine (T EGRETOL) 100 MG chewable tablet carbamazepine 100 mg chewable tablet Active cholecalciferol 0.125 mg oral capsule (5 sources) Vitamin D take 1 capsule by mouth once daily Cholecalciferol (Vitamin D3) 125 MCG (5000 UT) CAPS Take 125 mcg by mouth daily. Active clindamycin 300 mg oral capsule (5 sources) Lincosamide Antibacterial Start: clindamycin (CLEOCIN) 300 mg capsule 08/05/2024 Active Start: 07-14-2020 take 1 capsule by mo uth three times daily clindamycin (CLEOCIN) 300 MG capsule Take 1 Capsule by mouth 3 times daily for 7 days. 21 Capsule 07/14/2020 Active cloNIDine hydrochloride 0.2 mg oral tablet (20 sources) Central alpha-2 Adrenergic Agonist Start: 06-12-2020 take 1 tablet by mouth three times daily cloNIDine (CATAPRES) 0.2 MG tablet Take 0.2 mg by mouth 3 times daily. 06/12/2020 Active cloNIDine (Catap res) 0.2 MG tablet [...] 1 tablet by kip th twice daily dicyclomine (Ivan tyl) 20 MG [...] time Active take 1 capsule by mo [facility] three times daily docusate sodium (COLACE) 100 [...] kip th once daily Aviane 0.1-20 MG-MCG per tablet Take 1 Tablet by mouth daily. Active take 1 tablet by kip th [...] tablet by kip th three times daily take 1.5 mg by [...] mo uth every four to six hours as needed for pain Start: 05-29-2023 Ibuprofen (Adv il) 200 mg tablet Active 400 MG PO As Directed May 29, 2023 12:00am take 400 mg by mouth every four hours as needed for pain IBUPROFEN ORAL Take 400 mg by mouth every 4 hours as needed for Pain. Active ibuprofen (Motrin) 50 mg split tablet (17 sources) ibuprofen (Motri n) 50 mg split [...] 07/21/2023 Active Start: 05-29-2023 Start: 04-27-2023 take 2 tablets by mo uth at bedtime lamoTRIgine (LaMICtal) 150 MG tablet Take 300 mg by mouth at bedtime 04/27/2023 Active Start: 04-27-2023 take 1 tablet by kip th once daily lamoTRIgine (LaMICtal) 200 MG tablet Take 1 tablet by mouth Daily 04/27/2023 Active take 2 tablets by mo [facility] once daily lamotrigine (LAMICTAL) 25 MG tablet Take 50 mg by mouth daily. Active loperamide hydrochloride 2 mg oral tablet (20 sources) Opioid Agonist Start: 05-29-2023 take 1 tablet by mouth three times daily as needed loperamide (IMODIUM A-D) 2 mg tablet Take 1 tablet (2 mg total) by mouth 3 (three) times a day as needed. 05/29/2023 Active Start: 05-29-2023 loperamide (IM ODIUM A-D) 2 mg tablet Take 1 tablet (2 mg total) by mouth as needed in the morning and 1 tablet (2 mg total) as needed at noon and 1 tablet (2 mg total) as needed in the evening. 05/29/2023 Active Start: 05-29-2023 loratadine 10 mg oral tablet (20 sources) Start: 05-29-2023 take 1 tablet by mouth in the morning loratadine (CLARITIN) 10 mg tablet Take 1 tablet (10 mg total) by mouth in the morning. 05/29/2023 Active metoprolol tartrate 100 mg oral tablet (20 sources) beta-Adrenergic Molly Start: 05-29-2023 End: 09-21-2024 take 1 tablet by mouth in the morning, then take 1 tablet by mouth at bedtime metoprolol tartrate (LOPRESSOR) 100 mg tablet Take 1 tablet (100 mg total) by mouth in the morning and 1 tablet (100 mg total) before bedtime. 07/21/2023 [facility] metoprolol (LOPRESSOR) 100 MG tablet Franck e 100 mg by mouth 3 times a day. Active take 1 tablet by kip three times daily metoprolol (LOPRESSOR) 25 MG tablet Take 25 mg by mouth 3 times daily. Active metoprolol tartr ate (Lopressor) 100 MG [...] 30mg 07/21/2023 Active Start: 05-29-2023 Start: 04-27-2023 End: 09-21-2024 OLANZapine (ZyPREXA) 10 MG t ablet 04/27/2023 Active omeprazole 20 mg delayed release [...] (4 sources) Start: 05-29-2023 polyethylene glycol 3350 49776 mg powder for oral solution (19 sources) Osmotic Laxative Start: 11-18-2023 Polyethylene Glycol 3350 (PEG 3350) 17 GM/SCOOP POWD Take 17 g by mouth every morning. 11/18/2023 Active Start: 08-06-2023 psyllium 400 mg [...] Twice daily May 29, 2023 12:00am sennosides, halfway 8.6 mg oral tablet (20 sources) Start: [...] tablet Discontinued 400 MG PO Daily 5 5 June 01, 2023 12:00am August 06, 2023 9:27pm ondansetron 4 mg disintegrating oral tablet (18 sources) Serotonin-3 Receptor Antagonist Start: 05-29-2023 End: [...] Translations: [Dermatitis, unspecified] 12-09-2023 Episodic Anxiety disorders (15 sources) Posttraumatic stress disorder; Translations: [Post-traumatic stress disorder, unspecified] Onset: 4 05-29-2023 Chronic Attention-deficit, conduct, and disruptive behavior disorders (20 sources) Attention deficit hyperactivity disorder; Translations: [Attention-deficit hyperactivity disorder, unspecified type] Onset: 3 06-03-2018 Chronic Developmental disorders (20 sources) Moderate intellectual disability; Translations: [Moderate intellectual disabilities] Onset: 3 05-25-2012 Chronic Disorders of lipid metabolism (20 sources) Hypercholesterolemia; Translations: [Pure hypercholesterolemia, unspecified] Onset: 4 05-29-2023 Chronic Disorders of teeth and jaw (18 sources) Chronic periodontitis; Translations: [Chronic periodontitis, unspecified] Onset: 3 06-09-2012 Chronic Epilepsy; convulsions (20 sources) Seizure disorder; Translations: [Epilepsy, unspecified, not intractable, without status epilepticus] Onset: 4 05-29-2023 Chronic Esophageal disorders (9 sources) Gastroesophageal reflux disease; Translations: [Gastro-esophageal reflux disease without esophagitis] Onset: 4 02-01-2024 Chronic Essential hypertension (20 sources) Hypertensive disorder; Translations: [Essential (primary) hypertension] Onset: 4 05-29-2023 Chronic Genitourinary symptoms and ill-defined conditions (5 sources) Unspecified abnormal findings in urine; Translations: [Other abnormal findings in urine] Onset: 3 Episodic Impulse control disorders, NEC (9 sources) Impulse control disorder; Translations: [Impulse disorder, unspecified] Onset: 4 02-01-2024 Chronic Miscellaneous mental health disorders (9 sources) Dissociative disorder; Translations: [Dissociative and conversion disorder, unspecified] Onset: 4 02-01-2024 Chronic Mood disorders (20 sources) Bipolar disorder; Translations: [Bipolar disorder, unspecified] Onset: 4 05-29-2023 Chronic Mycoses (3 sources) Onychomycosis; Translations: [Tinea unguium] 11-09-2023 Episodic Nonmalignant breast conditions (17 sources) Pain of breast; Translations: [Lump in right breast] Onset: 5 08-07-2024 Episodic Other bone disease and musculoskeletal deformities (3 sources) Exostosis of right foot; Translations: [Other specified disorders of bone, ankle and foot] 08-07-2024 Episodic Other connective tissue disease (3 sources) Pain of toe of right foot; Translations: [Pain in right toe(s)] 11-09-2023 Episodic Other connective tissue disease (5 sources) Pain of toe of left foot; Translations: [Pain in left toe(s)] 11-09-2023 Episodic Other connective tissue disease (3 sources) Enthesopathy of lower limb; Translations: [Other enthesopathy of right foot and ankle] 08-07-2024 Episodic Other connective tissue disease (2 sources) Pain in right foot; Translations: [Pain in right foot] 08-07-2024 Episodic Other gastrointestinal disorders (2 sources) Constipation; Translations: [Constipation, unspecified] 08-06-2023 Episodic Other nutritional; endocrine; and metabolic disorders (1 source) Body mass index 30+ - obesity; Translations: [Body mass index (BMI) 30.0-30.9, adult] 10-05-2024 Chronic Other skin disorders (4 sources) Ingrowing nail; [...] [Hypo-osmolality and hyponatremia] Onset: 10-27-2023 02-29-2024 Episodic Headache; including migraine (11 sources) Headache; Translations: [Headache] Onset: 02-01-2024 08-06-2023 Episodic Immunizations and screening for infectious disease (1 source) Encounter for screening for human papillomavirus (HPV); Translations: [ENC SCREENING HUMAN PAPILLOMAVIRUS] Onset: 04-29-2022 Episodic Other nutritional; endocrine; and metabolic disorders (20 sources) Developmental delay; Translations: [Unspecified lack of expected normal physiological development in childhood] Onset: 07-14-2023 07-14-2023 Episodic Other screening for suspected conditions (not mental disorders or infectious disease) (20 sources) Possible ; Translations: [Encounter for test, result unknown] Onset: 06-09-2012 06-09-2012 Episodic Residual codes; unclassified (20 sources) Disturbance of consciousness; Translations: [Transient alteration of awareness] Onset: 07-14-2023 07-14-2023 Episodic Results Test Name Value Interpretation Reference Range Facility Telephone Encounteron 2024 Division Human Resources Manager Authentication Interface Message Text Dr. Chatman made aware that CBC and CMP from 05/03/24 received from [facility] and scanned into [employer]. Addendum: Dr. Chatman states that he has reviewed labs and results are acceptable on 10/04 via secure chat. Normal [facility] Patient Instructionson 09-21 Division Human Resources Manager Authentication Interface Message Text RECOMMENDATIONS: Patient was [...] before surgery Glenn Chatman MD Normal [facility] Progress Noteson 09-21-2024 Division Human Resources Manager Authentication Interface Message Text Blood pressure 138/85, [...] fever, chills, night sweats, and weight loss POPULATION HEALTH MANAGER: h/o Seizures on AEDs Microadenoma in Pituitary [...] Mouth (more content not included)... Normal [facility] Progress Noteson 08-28-2024 Division Human Resources Manager Authentication Interface Message Text Nurse (LATASHA) was contacted for PAT AND OR Visit scheduled -- confirmed information with nurse , also informed nurse importance of receiving PSE call -- if not received surgery will be canceled ----- Wednesday, August 28, 2024 at 12:25:15 PM ----- ----- Provider: HANNAH - Bharti Ramírez, Dental-Lockstitch Waistline Joiner -- Clinic: [place] ----- Normal [facility] Urine Cultureon 08-23-2024 Bacteria identified Cx Nom (U) <9,000 colonies/ml mixed bacterial skin contaminants 2 Days PERFORMED BY: [place] [address] PATHOLOGIST PATTERN LAYOUT WORKER CHARLENE BEDOYA M.D. Normal [facility] Comment on above: Performed By: #### C UU #### [address] [facility] W CADon 08-09-2024 [facility] W CAD [facility]ATER[facility] W CAD MIGDALIA STEPHIE 1985 [id number], [id number] EXAM: MAMM DIAGNOSTIC BILATERAL W CAD, US [...] family medical history was used calculate their Tyrer-zi lifetime risk of malignancy. Scores less than 20% are not considered high risk per ACR guidelines and patient should continue with the above recommendation. Patient was given the results before leaving the department. Finalized by Milad Umana MD on 08/09/2024 11:36 AM 1 b FU ACR Normal [facility] Anesthesia Postprocedure Stefani luationon 02-23-2024 Division Human Resources Manager Authentication Interface Message Text Anesthesia Postoperative Assessment: [...] EVENTS: No notable events documented. Normal [facility] Anesthesia Preprocedure Eval uationon 02-23-2024 Division Human Resources Manager Authentication Interface Message Text ASA: 2 No history of anesthetic complications NPO status: >8 hours Past Medical History and Review of Systems Pulmonary (-) sleep apnea Dental ROS (+) teeth problems Endo damage inside adjuster (-) not (negative in clinic today) Neuro/Psych [...] were discussed with the patient and/or legal customer development representative. The risks, benefits and alternatives were reviewed. Questions regarding anesthesia were answered. Patient and/or legal customer development representative knows such anesthetics and procedures may be performed by Resident physicians, Certified Anesthesiologist Assistants, or Certified Nurse Anesthetists under the supervision of a physician. The patient /or the patient's legal customer development representative agree with the plan for anesthesia. [employer] Normal [facility] Progress Noteson 02-23-2024 Division Human Resources Manager Authentication Interface Message Text ----- February at 10:34:06 AM ----- ----- Provider: Shelby Frias DMD -- Clinic: [place] ----- PT. WAS SEEN IN [facility] UNDER TWILIGHT SEDATION WITH ANESTHESIA TEAM. Anesthesia diagnosis: Unspecified mental disorder- F09 and Other intellectual disabilities- F78 Dental diagnosis: Dental Caries, unspecified - K02.9 COMPOSITE CONGREGATIONAL Patient is scheduled for Druze on tooth #23 MFL and 24 DFL. Reviewed Medical History. Patient is ready for treatment. Topical Benzocaine gel applied at the injection site for 2 minutes. Administered 2 carpules of Lidocaine, 2% with Epinephrine 1:100,000,. Cotton roll isolation achieved. Decay/existing mormonism removed, cavity prepared. Selectively etched enamel with 37% phosphoric acid, rinsed, and blot dried. OptiBond bowles applied and light-cured. Condensed packable composite shade A2 in light cured increments using Mylar strip and wedge. Finished with finishing burs, checked occlusion, verified proximal contacts and mormonism was polished. Rinsed and suctioned intraorally, advised [...] ----- Provider: Shelby Frias DMD -- Clinic: [place] ----- Normal [facility] Telephone Encounteron 2023 Division Human Resources Manager Authentication Interface Message Text Anesthesia consent obtained by Dr. Koch and scanned into [employer]. Normal [facility] PAT Call Historyon Division Human Resources Manager Authentication Interface Message Text Telephone History Migdalia Connelly, [id number] 02/01/2024 Patient was identified by name and date of with Nurse Latasha from [place]. Needs: Physical, Neck Circumference, Glasses, BHCG, Intellectual Disability, Anxiety and Seizure Precautions on DOS. If the patient becomes ill prior to procedure or surgery, they are to call their provider or surgeon's office directly. 02/01/2024 - communicated with patient will need urine test the morning of the procedure 02/01/2024-Spoke with Dr. Florez (Anesthesia) in regards to anxiety with last procedure - indicates that [facility] can give her 5 mg Valium at least 1 hour prior to arriving (Nurse at [place] - Latasha- aware) 02/01/2024-[facility] to provide most recent labs (fax number given) 02/14/2024-LG consent obtained - see media theorist and author of 38 year old 190.6 lbs 5' 5 [...] 09/05/2018 Added automatically from request for surgery [id number] Constipation Per OSH H+P 08/2018 Dental decay 08/26/2016 Added automatically from request for surgery [id number] Developmental delay Per OSH H+P 08/2018 Hormone [...] Decay, Dental Caries, Peridontitis, Endo (+) obesity damage inside adjuster (+) irregular periods Neuro/Psych (+) bipolar disorder, [...] DENTAL RESTORATIONS; Surgeon: Bhavin Valdovinos DDS; Location: [facility]; Service: Dental DENTAL RESTORATIONS N/A 09/15/2018 Procedure: DENTAL RESTORATIONS; Surgeon: Og Mahoney DDS; Location: [facility]; Service: Dental DENTAL RESTORATIONS Bilateral 07/14/2020 Procedure: DENTAL RESTORATIONS; Surgeon: Og Mahoney DDS; Location: [facility]; Service: Dental SOCIAL HISTORY: Social History Socioeconomic History Marital status: Single Tobacco Use Smoking status: Never Smokeless tobacco: Never Substance and Sexual Activity Alcohol use: Never Drug use: Never PAIN ASSESSMENT: Severity: 0 Location: N/A LABORATORY DATA: [facility] 10/24/2023 LABS TESTS REVIEWED: CXRay: No Chest [...] ta (more content not included)... Normal [facility] [employer] [facility] Addendum Noteon 12-15-2023 Division Human Resources Manager Authentication Interface Message Text Addendum created 12/15/23 1134 by Orquidea Florez MD Clinical Note Signed Normal [facility] [employer] [facility] Division Human Resources Manager Authentication Interface Message Text Addendum created 12/15/23 1026 by Domingo Carrion APRN-RAVINDRA Flowsheet accepted, LDA properties accepted Normal [facility] [employer] [facility] Anesthesia Postprocedure Stefani luationon 12-15-2023 Division Human Resources Manager Authentication Interface Message Text Anesthesia Postoperative Assessment: [...] EVENTS: No notable events documented. Normal [facility] [employer] [facility] Anesthesia Preprocedure Evlinnette escalona 12-15-2023 Division Human Resources Manager Authentication Interface Message Text ASA: 2 No history of anesthetic complications PSE status: Had PSE NPO status: >8 hours Past Medical History and Review of Systems (Full ROS completed in PSE) Pulmonary (-) sleep apnea Dental ROS (+) teeth problems Endo damage inside adjuster (-) not (negative in clinic today) Neuro/Psych [...] were discussed with the patient and/or legal customer development representative. The risks, benefits and alternatives were reviewed. Questions regarding anesthesia were answered. Patient and/or legal customer development representative knows such anesthetics and procedures may be performed by Resident physicians, Certified Anesthesiologist Assistants, or Certified Nurse Anesthetists under the supervision of a physician. The patient /or the patient's legal customer development representative agree with the plan for anesthesia. [employer] Normal [facility] [employer] [facility] Anesthesia Transfer Of Careo n 12-15-2023 Division Human Resources Manager Authentication Interface Message Text Patient recovered by BRADDER in room. Patient is awake, comfortable, and [...] DENTAL RESTORATIONS; Surgeon: Bhavin Valdovinos DDS; Location: [facility] [place]; Service: Dental CHOLECYSTECTOMY (2009) Per OSH H+P 08/2018 DENTAL RESTORATIONS (09/15/2018) Procedure: DENTAL RESTORATIONS; Surgeon: Og Mahoney DDS; Location: [facility] [place]; Service: Dental DENTAL RESTORATIONS (07/14/2020) Procedure: DENTAL RESTORATIONS; Surgeon: Og Mahoney DDS; Location: [facility] [place]; Service: Dental Allergies: Abilify, Amoxicillin, Depakote [valproic acid], Food, Metyrosine, Moban [molindone], Nubain [nalbuphine], Sympathomimetics, and Vicks 44 cough relief [dextromethorphan hbr] Basic Operating Room Facts: * No surgeons listed * Anesthesiologist: Orquidea Florez MD BRADDER: Domingo Carrion APRN-BRADDER DENTAL VISIT Intraoperative Events: No acute event [...] of the report was received. Domingo Carrion APRN-BRADDER Normal [facility] [employer] [facility] Blood Attestationon 12-15-19 Division Human Resources Manager Authentication Interface Message Text Blood Attestation: ATTESTATION OF INFORMED CONSENT FOR BLOOD: The transfusion of blood and/or blood components were discussed with the patient and/or legal customer development representative. The risks, benefits and alternatives were reviewed. Questions regarding blood transfusions were answered. The patient /or the patient's legal customer development representative agree with the plan for transfusion of blood and/or blood components. Normal [facility] [employer] [facility] Progress Noteson 12-15-2023 Division Human Resources Manager Authentication Interface Message Text ----- November at 9:52:24 AM ----- ----- Provider: Orlando Alejandro Resident -- Clinic: [place] ----- PT WAS SEEN IN [facility] UNDER TWILIGHT SEDATION WITH ANESTHESIA TEAM [...] status of dentition on the charting. COMPOSITE CONGREGATIONAL Patient is scheduled for Druze on tooth #26 surface B5. Topical Benzocaine gel applied at the injection site for 2 minutes. Administered 0.5 carpules of Lidocaine, 2% with Epinephrine 1:100,000,. Isolation achieved. Decay/existing mormonism removed, cavity prepared. Selectively etched enamel with 37% phosphoric acid, rinsed, and blot dried. OptiBond bowles applied and light-cured. Condensed packable composite shade A2 in light cured increments. Finished with finishing burs, checked occlusion, verified proximal contacts and mormonism was polished. SIMPLE EXTRACTION tooth # 7 [...] medications Next visit: Restorative under IV sedation [facility] ----- Signed on November at 10:18:01 AM ----- ----- Provider: [id number] - Sabra Frias DMD -- Clinic: [place] ----- Normal [facility] [employer] [facility] PAT Appt Juancarlos Division Human Resources Manager Authentication Interface Message Text Attestation signed by [...] Jones MD Pre-Admission Testing Consultation Migdalia Connelly, [id number] 38 year old Female 11/23/2023 Consult placed to [facility] due to significant PMH of HLD, HTN, seizures, moderate intellectual disability. [facility] Triage Risk Score Total Score: 3 2 Patient is on more than 2 antihypertension medications. 1 Patient has history of hyperlipidemia. Migdalia Connelly is scheduled for Dental Druze Pre-Op diagnosis of: Dental Carries HISTORY OF PRESENT ILLNESS: Patient is a 38 year old female with a pmh of HLD, HTN, seizures, moderate intellectual disability. Patient is here for pre-admission optimization and education prior to surgery. RECENT ILLNESS: Serious illness or hospitalization within the last six months. No STOP BANG: STOP-BANG Row Name 11/23/23 8307 History of sleep apnea? Yes Snoring No [...] DENTAL RESTORATIONS; Surgeon: Bhavin Valdovinos DDS; Location: [facility] [place]; Service: Dental DENTAL RESTORATIONS N/A 09/15/2018 Procedure: DENTAL RESTORATIONS; Surgeon: Og Mahoney DDS; Location: [facility] [place]; Service: Dental DENTAL RESTORATIONS Bilateral 07/14/2020 Procedure: DENTAL RESTORATIONS; Surgeon: Og Mahoney DDS; Location: [facility] [place]; Service: Dental Past Medical History and Review [...] d (more content not included)... Normal [facility] [employer] [facility] Telephone Encounteron 2023 Division Human Resources Manager Authentication Interface Message Text Anesthesia consent obtained and scanned into [employer]. Scheduled for surgery 12/15/2023. Normal [facility] [employer] [facility] [facility] Progress Noteson 11-07-2023 Division Human Resources Manager Authentication Interface Message Text Parent/guardian/richard ent was contacted for PAT AND IV Sedation scheduled -- confirmed information with patient, also informed mom importance of going to PAT appointment -- if missed, IV Sedation will be cancelled, and you will be placed back on wait list 12/15/2023----- Tuesday, November 07, 2023 at 2:12:30 PM ----- ----- Provider: HANNAH Ramírez Dental-Lockstitch Waistline Joiner -- Clinic: [place] ----- Normal [facility] [employer] [facility] Division Human Resources Manager Authentication Interface Message Text Parent/guardian/richard ent was contacted for PAT AND IV Sedation scheduled -- confirmed information with patient, also informed mom importance of going to PAT appointment -- if missed, IV Sedation will be cancelled, and you will be placed back on wait list 12/15/2023----- Tuesday, November 07, 2023 at 2:17:34 PM ----- ----- Provider: HANNAH Ramírez Dental-Lockstitch Waistline Joiner -- Clinic: [place] ----- Normal [facility] [employer] [facility] [facility] Progress Noteson 10-19-2023 Division Human Resources Manager Authentication Interface Message Text ----- Thursday, October 19, 2023 at 11:01:41 AM ----- ----- Provider: [id number] Veronica, Resident -- Clinic: [place] ----- LIMITED EXAM Patient presents for Emergency [...] consented to treatment today. Pt here with double cut sawyer to discuss IV sedation as a quicker [...] sedation. Informed both the patient and the double cut sawyer. Treatment request for IV sedation will be sent for the patient. Next Visit: IV sedation and appropriate treatment. ----- Signed on Thursday, October 19, 2023 at 1:27:08 PM ----- ----- Provider: [id number] Ed Obrien DDS -- Clinic: [place] ----- Normal [facility] [employer] [facility] [facility] Alanine aminotransferase [En zymatic activity/volume] in Serum or PlasmaOrdered By: Titi Terry on 08-06-2023 ALT [Catalytic activity/Vol] 25 U/L 7-52 [facility] Albumin [Mass/volume] in Ser um or Plasma by Bromocresol green (BCG) dye binding methoOrdered By: Titi Terry on 08-06-2023 Albumin BCG dye [Mass/Vol] 4.0 g/dL 3.5-5.7 [facility] Alkaline phosphatase [Enzyma tic activity/volume] in Serum or PlasmaOrdered By: Titi Terry on 08-06-2023 ALP [Catalytic activity/Vol] 32 U/L 34-104 [facility] Aspartate aminotransferase [ Enzymatic activity/volume] in Serum or PlasmaOrdered By: Titi Terry on 08-06-2023 AST [Catalytic activity/Vol] 24 U/L 13-39 [facility] Bacteria [Presence] in Urine by AutomatedOrdered By: PROVIDER TEMP on 08-06-2023 Bacteria Auto Ql (U) 2+ [HPF] None Seen [facility] Basophils Auto (Bld) [#/Vol] Ordered By: Titi Terry on 08-06-2023 Basophils (Bld) [#/Vol] 0.0 10*3/uL 0.0-0.2 [facility] Basophils/100 WBC Auto (Bld) Ordered By: Titi Terry on 08-06-2023 Basophils/100 WBC (Bld) 0.3 % . [facility] Bilirubin Test strip Ql (U)O rdered By: PROVIDER SHIRA on 08-06-2023 Bilirubin Ql (U) Negative Negative [facility] Bilirubin.direct [Mass/volum e] in Serum or PlasmaOrdered By: Titi Terry on 08-06-2023 Bilirubin.direct [Mass/Vol] 0.10 mg/dL 0.03-0.18 [facility] Bilirubin.total [Mass/volume ] in Serum or PlasmaOrdered By: Titi Terry on 08-06-2023 Bilirubin [Mass/Vol] 0.3 mg/dL 0.3-1.0 [facility] COVID CepheidOrdered By: Leonid Terry on 08-06-2023 SARS-CoV-2 (COVID-19) Ab IA Ql Negative Negative [facility] Comment on above: This is a duplicate Cepheid Xpert Xpress CoV-2/Flu/RSV Plus RNA by RT-PCR result to be used for statistical tracking purpose only. SARS-CoV-2 (COVID-19) RNA ROSENDO+probe Ql (Unsp spec) [facility] Calcium [Mass/volume] in Ser um or PlasmaOrdered By: Titi Terry on 08-06-2023 Calcium [Mass/Vol] 8.8 mg/dL 8.6-10.3 [facility] Carbon dioxide, total [Moles /volume] in Serum or PlasmaOrdered By: Titi Terry on 08-06-2023 CO2 [Moles/Vol] 22.4 mmol/L 21.0-31.0 [facility] Chloride [Moles/volume] in S marimar or PlasmaOrdered By: Titi Terry on 08-06-2023 Chloride [Moles/Vol] 99 mmol/L 98-107 [facility] Color Auto (U)Ordered By: SHANT SILVA on 08-06-2023 Color (U) Yellow Yellow [facility] Creatinine [Mass/volume] in Serum or PlasmaOrdered By: Titi Terry on 08-06-2023 Creatinine [Mass/Vol] 0.56 mg/dL 0.60-1.20 [facility] Eosinophils Auto (Bld) [#/Vo l]Ordered By: Titi Terry on 08-06-2023 Eosinophils (Bld) [#/Vol] 0.0 10*3/uL 0.0-0.45 [facility] Eosinophils/100 WBC Auto (Bl d)Ordered By: Titi Terry on 08-06-2023 Eosinophils/100 WBC (Bld) 0.3 % . [facility] Epithelial cells.non-squamou s [#/area] in Urine sediment by Automated countOrdered By: PROVIDER TEMP on 08-06-2023 Epithelial cells.non-squamous Auto (Urine sed) [#/Area] 1-2 [HPF] None Seen [facility] Epithelial cells.squamous [# /area] in Urine sediment by Automated countOrdered By: PROVIDER TEMP on 08-06-2023 Epithelial cells.squamous Auto (Urine sed) [#/Area] 10-19 [HPF] 0-2 [facility] Erythrocyte distribution wid th Auto (RBC) [Ratio]Ordered By: Titi Terry on 08-06-2023 Erythrocyte distribution width (RBC) [Ratio] 13.0 % 11.9-15.3 [facility] Erythrocytes [#/area] in Uri ne sediment by Automated countOrdered By: PROVIDER TEMP on 08-06-2023 RBC Auto (Urine sed) [#/Area] 5-9 [HPF] 0-4 [facility] Globulin Calc (S) [Mass/Vol] Ordered By: Titi Terry on 08-06-2023 Globulin (S) [Mass/Vol] 2.9 g/dL [facility] Glucose [Mass/volume] in Ser um or PlasmaOrdered By: Titi Terry on 08-06-2023 Glucose [Mass/Vol] 116 mg/dL 70-100 [facility] Comment on above: ADA recommended refe rence rangeRandom Glucose Reference Range is dependent on time and content of last meal. Glucose of more than 200 mg/dL in a nonstressed, ambulatory subject supports the diagnosis of Diabetes Mellitus. Glucose [Mass/volume] in Uri ne by Test stripOrdered By: PROVIDER SHIRA on 08-06-2023 Glucose Test strip (U) [Mass/Vol] Normal mg/dL Normal [facility] Hematocrit Auto (Bld) [Volum e fraction]Ordered By: Titi Terry on 08-06-2023 Hematocrit (Bld) [Volume fraction] 32.9 % 34.0-46.4 [facility] Hemoglobin Test strip Ql (U) Ordered By: PROVIDER TEMLeelee on 08-06-2023 Hemoglobin Ql (U) Negative Negative [facility] Hemoglobin [Mass/volume] in BloodOrdered By: Titi Terry on 08-06-2023 Hemoglobin (Bld) [Mass/Vol] 11.4 g/dL 11.8-15.4 [facility] Hyaline casts [#/area] in Ur ine sediment by Automated countOrdered By: PROVIDER TEMP on 08-06-2023 Hyaline casts Auto (Urine sed) [#/Area] None [LPF] 0-8 [facility] Ketones Test strip Ql (U)Ord ered By: PROVIDER TEMP on 08-06-2023 Ketones Ql (U) Negative Negative [facility] Leukocyte esterase [Presence ] in Urine by Test stripOrdered By: PROVIDER TEMP on 08-06-2023 Leukocyte esterase Test strip Ql (U) 2+ Negative [facility] Leukocytes [#/area] in Urine sediment by Automated countOrdered By: PROVIDER TEMP on 08-06-2023 WBC Auto (Urine sed) [#/Area] 10-19 [HPF] 0-4 [facility] Leukocytes [#/volume] correc kristian for nucleated erythrocytes in Blood by Automated counOrdered By: Titi Terry on 08-06-2023 WBC corrected for nucl RBC Auto (Bld) [#/Vol] 9.0 10*3/uL 3.8-11.6 [facility] Lipase [Enzymatic activity/v olume] in Serum or PlasmaOrdered By: Titi Terry on 08-06-2023 Lipase [Catalytic activity/Vol] 25.0 U/L 11.0-82.0 [facility] Lymphocytes Auto (Bld) [#/Vo l]Ordered By: Titi Terry on 08-06-2023 Lymphocytes (Bld) [#/Vol] 0.6 10*3/uL 1.00-4.8 [facility] Lymphocytes/100 WBC Auto (Bl d)Ordered By: Titi Terry on 08-06-2023 Lymphocytes/100 WBC (Bld) 6.2 % . [facility] MCH Auto (RBC) [Entitic mass ]Ordered By: Titi Terry on 08-06-2023 MCH (RBC) [Entitic mass] 32.0 pg 24.7-34.3 [facility] MCHC Auto (RBC) [Mass/Vol]Or dered By: Titi Terry on 08-06-2023 MCHC (RBC) [Mass/Vol] 34.8 g/dL 32.0-35.0 [facility] MCV Auto (RBC) [Entitic vol] Ordered By: Titi Terry on 08-06-2023 MCV (RBC) [Entitic vol] 92.0 fL 80-100 [facility] Monocyte distribution width [Entitic volume] in Blood by AutomatedOrdered By: Titi Terry on 08-06-2023 Monocyte distribution width Auto (Bld) [Entitic vol] 28.85 % 0.00-20.00 [facility] Comment on above: For adults in ED, MD W > 20.0 may be associated with a higher risk of sepsis during the first 12 hrs of hospital admission Monocytes Auto (Bld) [#/Vol] Ordered By: Titi Terry on 08-06-2023 Monocytes (Bld) [#/Vol] 0.4 10*3/uL 0.0-0.8 [facility] Monocytes/100 WBC Auto (Bld) Ordered By: Titi Terry on 08-06-2023 Monocytes/100 WBC (Bld) 4.2 % . [facility] Mucus [Presence] in Urine by AutomatedOrdered By: PROVIDER TEMP on 08-06-2023 Mucus Auto Ql (U) Rare [LPF] [facility] Neutrophils Auto (Bld) [#/Vo l]Ordered By: Titi Terry on 08-06-2023 Neutrophils (Bld) [#/Vol] 8.0 10*3/uL 1.8-7.7 [facility] Neutrophils/100 WBC Auto (Bl d)Ordered By: Titi Terry on 08-06-2023 Neutrophils/100 WBC (Bld) 89.0 % . [facility] Nitrite Test strip Ql (U)Ord ered By: PROVIDER TEMP on 08-06-2023 Nitrite Ql (U) Negative Negative [facility] No Panel InformationOrdered By: Titi Terry on 08-06-2023 Estimated GFR (CKD-EPI) > 60.0 mL/Min [facility] Creatinine Clearance (Chem 142.49 [facility] Nucleated erythrocytes [Pres ence] in Blood by Automated countOrdered By: Titi Terry on 08-06-2023 Nucleated RBC Auto Ql (Bld) 0.0 /100{WBC} 0-0.5 [facility] Platelet mean volume Auto (B ld) [Entitic vol]Ordered By: Titi Terry on 08-06-2023 Platelet mean volume (Bld) [Entitic vol] 6.8 fL 6.3-10.7 [facility] Platelets Auto (Bld) [#/Vol] Ordered By: Titi Terry on 08-06-2023 Platelets (Bld) [#/Vol] 294 10*3/uL 150-450 [facility] Potassium [Moles/volume] in Serum or PlasmaOrdered By: Titi Terry on 08-06-2023 Potassium [Moles/Vol] 3.7 mmol/L 3.5-5.1 [facility] Protein Test strip (U) [Mass /Vol]Ordered By: PROVIDER TEMP on 08-06-2023 Protein (U) [Mass/Vol] Negative Negative [facility] Protein [Mass/volume] in Ser um or PlasmaOrdered By: Titi Terry on 08-06-2023 Protein [Mass/Vol] 6.9 g/dL 6.4-8.9 [facility] RBC Auto (Bld) [#/Vol]Ordere d By: Titi Terry on 08-06-2023 RBC (Bld) [#/Vol] 3.57 10*6/uL 3.60-5.00 [facility] Serum or plasma albumin/glob ulin mass ratioOrdered By: Titi Terry on 08-06-2023 Albumin/Globulin [Mass ratio] 1.4 {ratio} [facility] Serum or plasma anion gap de terminationOrdered By: Titi Terry on 08-06-2023 Anion gap [Moles/Vol] 13.3 mmol/L 6.0-15.0 [facility] Serum or plasma non-glucuron idated bilirubin measurement (mass/volume)Ordered By: Titi Terry on 08-06-2023 Bilirubin.indirect [Mass/Vol] 0.2 mg/dL [facility] Sodium [Moles/volume] in Ser um or PlasmaOrdered By: Titi Terry on 08-06-2023 Sodium [Moles/Vol] 131 mmol/L 136-145 [facility] Specific gravity Test strip (U) [Rel density]Ordered By: PROVIDER TEMP on 08-06-2023 Specific gravity (U) [Rel density] 1.022 1.001-1.030 [facility] Urea nitrogen [Mass/volume] in Serum or PlasmaOrdered By: Titi Terry on 08-06-2023 Urea nitrogen [Mass/Vol] 6 mg/dL 09-14 [facility] Urine appearanceOrdered By: PROVIDER TEMP on 08-06-2023 Appearance (U) Cloudy Clear [facility] Urobilinogen Test strip (U) [Mass/Vol]Ordered By: PROVIDER TEMP on 08-06-2023 Urobilinogen (U) [Mass/Vol] Normal mg/dL Normal [facility] WBC Auto (Bld) [#/Vol]Ordere d By: Titi Terry on 08-06-2023 WBC (Bld) [#/Vol] 9.0 10*3/uL 3.8-11.6 [facility] pH Test strip (U)Ordered By: PROVIDER TEMP on 08-06-2023 pH (U) 6.5 [pH] 5.0-9.0 [facility] Alanine aminotransferase [En zymatic activity/volume] in Serum or PlasmaOrdered By: Rico Romero on 06-01-2023 ALT [Catalytic activity/Vol] 15 U/L [facility] Albumin [Mass/volume] in Ser um or Plasma by Bromocresol green (BCG) dye binding methoOrdered By: Rico Romero on 06-01-2023 Albumin BCG dye [Mass/Vol] 3.5 g/dL 3.5-5.7 [facility] Alkaline phosphatase [Enzyma tic activity/volume] in Serum or PlasmaOrdered By: Rico Romero on 06-01-2023 ALP [Catalytic activity/Vol] 42 U/L 34-104 [facility] Aspartate aminotransferase [ Enzymatic activity/volume] in Serum or PlasmaOrdered By: Rico Romero on 06-01-2023 AST [Catalytic activity/Vol] 13 U/L 13-39 [facility] Band form neutrophils/100 WB C Manual cnt (Bld)Ordered By: Arvind Regan on 06-01-2023 Band form neutrophils/100 WBC (Bld) 5 % 0-5 [facility] Basophils Auto (Bld) [#/Vol] Ordered By: Arvind Regan on 06-01-2023 Basophils (Bld) [#/Vol] N/A [facility] Basophils/100 WBC Auto (Bld) Ordered By: Arvind Regan on 06-01-2023 Basophils/100 WBC (Bld) N/A [facility] Bilirubin.total [Mass/volume ] in Serum or PlasmaOrdered By: Rico Romero on 06-01-2023 Bilirubin [Mass/Vol] 0.2 mg/dL 0.3-1.0 [facility] C reactive protein [Mass/vol ume] in Serum or PlasmaOrdered By: Rico Romero on 06-01-2023 CRP [Mass/Vol] 1.1 mg/dL 0.0-0.5 [facility] Calcium [Mass/volume] in Ser um or PlasmaOrdered By: Rico Romero on 06-01-2023 Calcium [Mass/Vol] 8.9 mg/dL 8.6-10.3 [facility] Carbon dioxide, total [Moles /volume] in Serum or PlasmaOrdered By: Rico Romero on 06-01-2023 CO2 [Moles/Vol] 26.6 mmol/L 21.0-31.0 [facility] Chloride [Moles/volume] in S marimar or PlasmaOrdered By: Rico Romero on 06-01-2023 Chloride [Moles/Vol] 102 mmol/L 98-107 [facility] Creatinine [Mass/volume] in Serum or PlasmaOrdered By: Rico Romero on 06-01-2023 Creatinine [Mass/Vol] 0.43 mg/dL 0.60-1.20 [facility] Eosinophils Auto (Bld) [#/Vo l]Ordered By: Arvind Regan on 06-01-2023 Eosinophils (Bld) [#/Vol] N/A [facility] Eosinophils/100 WBC Auto (Bl d)Ordered By: Arvind Regan on 06-01-2023 Eosinophils/100 WBC (Bld) N/A [facility] Eosinophils/100 WBC Manual c nt (Bld)Ordered By: Arvind Regan on 06-01-2023 Eosinophils/100 WBC (Bld) 4 % 1-3 [facility] Erythrocyte distribution wid th Auto (RBC) [Ratio]Ordered By: Arvind Regan on 06-01-2023 Erythrocyte distribution width (RBC) [Ratio] 13.7 % 11.9-15.3 [facility] Erythrocyte sedimentation ra te by Photometric methodOrdered By: Rico Romero on 06-01-2023 ESR Photometric method (Bld) [Velocity] 30 mm/hr 0-19 [facility] Globulin Calc (S) [Mass/Vol] Ordered By: Rico Romero on 06-01-2023 Globulin (S) [Mass/Vol] 3.0 g/dL [facility] Glucose [Mass/volume] in Ser um or PlasmaOrdered By: Rico Romero on 06-01-2023 Glucose [Mass/Vol] 107 mg/dL 70-100 [facility] Comment on above: ADA recommended refe rence rangeRandom Glucose Reference Range is dependent on time and content of last meal. Glucose of more than 200 mg/dL in a nonstressed, ambulatory subject supports the diagnosis of Diabetes Mellitus. Hematocrit Auto (Bld) [Volum e fraction]Ordered By: Arvind Regan on 06-01-2023 Hematocrit (Bld) [Volume fraction] 35.5 % 34.0-46.4 [facility] Hemoglobin [Mass/volume] in BloodOrdered By: Arvind Regan on 06-01-2023 Hemoglobin (Bld) [Mass/Vol] 11.7 g/dL 11.8-15.4 [facility] Leukocytes [#/volume] correc kristian for nucleated erythrocytes in Blood by Automated counOrdered By: Arvind Regan on 06-01-2023 WBC corrected for nucl RBC Auto (Bld) [#/Vol] 10.1 10*3/uL 3.8-11.6 [facility] Lymphocytes Auto (Bld) [#/Vo l]Ordered By: Yaneyda Jass on 06-01-2023 Lymphocytes (Bld) [#/Vol] N/A [facility] Lymphocytes/100 WBC Auto (Bl d)Ordered By: Yazid Jass on 06-01-2023 Lymphocytes/100 WBC (Bld) N/A [facility] Lymphocytes/100 WBC Manual c nt (Bld)Ordered By: Yaneyda Jass on 06-01-2023 Lymphocytes/100 WBC (Bld) 24 % 18-42 [facility] MCH Auto (RBC) [Entitic mass ]Ordered By: Yaneyda Jass on 06-01-2023 MCH (RBC) [Entitic mass] 31.0 pg 24.7-34.3 [facility] MCHC Auto (RBC) [Mass/Vol]Or dered By: Yazid Jass on 06-01-2023 MCHC (RBC) [Mass/Vol] 33.0 g/dL 32.0-35.0 [facility] MCV Auto (RBC) [Entitic vol] Ordered By: Yazid Jass on 06-01-2023 MCV (RBC) [Entitic vol] 93.9 fL 80-100 [facility] Monocytes Auto (Bld) [#/Vol] Ordered By: Yazid Jass on 06-01-2023 Monocytes (Bld) [#/Vol] N/A [facility] [facility] WBC Auto (Bld) Ordered By: Yaneyda Jass on 06-01-2023 Monocytes/100 WBC (Bld) N/A [facility] Monocytes/100 WBC Manual cnt (Bld)Ordered By: Yazid Jass on 06-01-2023 Monocytes/100 WBC (Bld) 6 % 2-11 [facility] Myelocytes/100 WBC Manual cn t (Bld)Ordered By: Yazid Jass on 06-01-2023 Myelocytes/100 WBC (Bld) 11 % 0-0 [facility] Neutrophils Auto (Bld) [#/Vo l]Ordered By: Yaneyda Jass on 06-01-2023 Neutrophils (Bld) [#/Vol] N/A [facility] Neutrophils/100 WBC Auto (Bl d)Ordered By: Arvind Regan on 06-01-2023 Neutrophils/100 WBC (Bld) N/A [facility] No Panel InformationOrdered By: Rico Romero on 06-01-2023 Estimated GFR (CKD-EPI) > 60.0 mL/Min [facility] Creatinine Clearance (Chem 191.30 [facility] Nucleated erythrocytes [Pres ence] in Blood by Automated countOrdered By: Arvind Regan on 06-01-2023 Nucleated RBC Auto Ql (Bld) N/A [facility] Platelet adequacy [Presence] in Blood by Light microscopyOrdered By: Arvind Regan on 06-01-2023 Platelets LM Ql (Bld) Increased Normal [facility] Platelet mean volume Auto (B ld) [Entitic vol]Ordered By: Arvind Regan on 06-01-2023 Platelet mean volume (Bld) [Entitic vol] 6.1 fL 6.3-10.7 [facility] Platelet morphology finding [Identifier] in BloodOrdered By: Arvind Regan on 06-01-2023 Platelet morphology finding Nom (Bld) Normal Normal [facility] Platelets Auto (Bld) [#/Vol] Ordered By: Arvind Regan on 06-01-2023 Platelets (Bld) [#/Vol] 456 10*3/uL 150-450 [facility] Potassium [Moles/volume] in Serum or PlasmaOrdered By: Rico Romero on 06-01-2023 Potassium [Moles/Vol] 4.3 mmol/L 3.5-5.1 [facility] Protein [Mass/volume] in Ser um or PlasmaOrdered By: Rico Romero on 06-01-2023 Protein [Mass/Vol] 6.5 g/dL 6.4-8.9 [facility] RBC Auto (Bld) [#/Vol]Ordere d By: Arvind Regan on 06-01-2023 RBC (Bld) [#/Vol] 3.77 10*6/uL 3.60-5.00 [facility] RBC morphologyOrdered By: Maddie Regan on 06-01-2023 RBC morphology finding Nom (Bld) Normal Normal [facility] Segmented neutrophils/100 WB C Manual cnt (Bld)Ordered By: Arvind Regan on 06-01-2023 Segmented neutrophils/100 WBC (Bld) 51 % 50-70 [facility] Serum or plasma albumin/glob ulin mass ratioOrdered By: Rico Romero on 06-01-2023 Albumin/Globulin [Mass ratio] 1.2 {ratio} [facility] Serum or plasma anion gap de terminationOrdered By: Rico Romero on 06-01-2023 Anion gap [Moles/Vol] 11.7 mmol/L 6.0-15.0 [facility] Sodium [Moles/volume] in Ser um or PlasmaOrdered By: Rico Romero on 06-01-2023 Sodium [Moles/Vol] 136 mmol/L 136-145 [facility] Urea nitrogen [Mass/volume] in Serum or PlasmaOrdered By: Rico Romero on 06-01-2023 Urea nitrogen [Mass/Vol] 9 mg/dL 7-25 [facility] WBC Auto (Bld) [#/Vol]Ordere d By: Arvind Regan on 06-01-2023 WBC (Bld) [#/Vol] 10.1 10*3/uL 3.8-11.6 [facility] Lactate [Moles/volume] in Se rum or PlasmaOrdered By: Anamaria Benton on 05-31-2023 Lactate [Moles/Vol] 1.4 mmol/L 0.5-2.2 [facility] Metamyelocytes/100 WBC Manua l cnt (Bld)Ordered By: Arvind Regan on 05-31-2023 Metamyelocytes/100 WBC (Bld) 8 % 0-0 [facility] No Panel InformationOrdered By: Arvind Regan on 05-31-2023 Slides for Pathologist Review Ordered path review [facility] Polychromasia [Presence] in Blood by Light microscopyOrdered By: Arvind Regan on 05-31-2023 Polychromasia LM Ql (Bld) Slight [facility] Promyelocytes/100 WBC Manual cnt (Bld)Ordered By: Arvind Regan on 05-31-2023 Promyelocytes/100 WBC (Bld) 1 % 0-0 [facility] Serum or plasma trough vanco mycin levelOrdered By: Arvind Regan on 05-31-2023 Vancomycin trough [Mass/Vol] 7.4 ug/mL 10.0-20.0 [facility] Comment on above: Last dose: - Basophils/100 WBC Manual cnt (Bld)Ordered By: Arvind Regan on 05-30-2023 Basophils/100 WBC (Bld) 0 % 0-2 [facility] Magnesium [Mass/volume] in S marimar or PlasmaOrdered By: Arvind Regan on 05-30-2023 Magnesium [Mass/Vol] 1.8 mg/dL 1.9-2.7 [facility] Vancomycin [Mass/volume] in Serum or Plasma --peakOrdered By: Arvind Regan on 05-30-2023 Vancomycin peak [Mass/Vol] 14.1 ug/mL 20.0-40.0 [facility] Comment on above: Last dose: - Anisocytosis LM Ql (Bld)Orde red By: Venita Amanda on 05-29-2023 Anisocytosis Ql (Bld) Slight [facility] Bacterial blood cultureOrder ed By: Venita Amanda on 05-29-2023 Bacteria identified Cx Nom (Bld) NO GROWTH 5 DAYS [facility] Bacteria identified Cx Nom (Bld) NO GROWTH 5 DAYS [facility] Band form neutrophils/100 WB C Manual cnt (Bld)Ordered By: Venita Amanda on 05-29-2023 Band form neutrophils/100 WBC (Bld) 1 % 0-5 [facility] Basophils Auto (Bld) [#/Vol] Ordered By: Venita Amanda on 05-29-2023 Basophils (Bld) [#/Vol] N/A [facility] Basophils/100 WBC Auto (Bld) Ordered By: Venita Amanda on 05-29-2023 Basophils/100 WBC (Bld) N/A [facility] Calcium [Mass/volume] in Ser um or PlasmaOrdered By: Venita Amanda on 05-29-2023 Calcium [Mass/Vol] 9.0 mg/dL 8.6-10.3 [facility] Carbon dioxide, total [Moles /volume] in Serum or PlasmaOrdered By: Venita Amanda on 05-29-2023 CO2 [Moles/Vol] 24.6 mmol/L 21.0-31.0 [facility] Chloride [Moles/volume] in S marimar or PlasmaOrdered By: Venita Amanda on 05-29-2023 Chloride [Moles/Vol] 99 mmol/L 98-107 [facility] Creatinine [Mass/volume] in Serum or PlasmaOrdered By: Venita Amanda on 05-29-2023 Creatinine [Mass/Vol] 0.55 mg/dL 0.60-1.20 [facility] Eosinophils Auto (Bld) [#/Vo l]Ordered By: Venita Amanda on 05-29-2023 Eosinophils (Bld) [#/Vol] N/A [facility] Eosinophils/100 WBC Auto (Bl d)Ordered By: Venita Amanda on 05-29-2023 Eosinophils/100 WBC (Bld) N/A [facility] Erythrocyte distribution wid th Auto (RBC) [Ratio]Ordered By: Venita Amanda on 05-29-2023 Erythrocyte distribution width (RBC) [Ratio] 13.7 % 11.9-15.3 [facility] Glucose [Mass/volume] in Ser um or PlasmaOrdered By: Venita Amanda on 05-29-2023 Glucose [Mass/Vol] 163 mg/dL 70-100 [facility] Comment on above: ADA recommended refe rence rangeRandom Glucose Reference Range is dependent on time and content of last meal. Glucose of more than 200 mg/dL in a nonstressed, ambulatory subject supports the diagnosis of Diabetes Mellitus. Hematocrit Auto (Bld) [Volum e fraction]Ordered By: Venita Amanda on 05-29-2023 Hematocrit (Bld) [Volume fraction] 35.6 % 34.0-46.4 [facility] Hemoglobin [Mass/volume] in BloodOrdered By: Venita Amanda on 05-29-2023 Hemoglobin (Bld) [Mass/Vol] 11.8 g/dL 11.8-15.4 [facility] Hypochromia LM Ql (Bld)Order ed By: Venita Amanda on 05-29-2023 Hypochromia Ql (Bld) Slight [facility] Lactate [Moles/volume] in Se rum or PlasmaOrdered By: Venita Amanda on 05-29-2023 Lactate [Moles/Vol] 3.0 mmol/L 0.5-2.2 [facility] Comment on above: Critical valueresult calledat 1423 on 05/29/23--- 05/29/23 142 ---Lactic previously reported as: 3.0 *H mmol/L Leukocytes [#/volume] correc kristian for nucleated erythrocytes in Blood by Automated counOrdered By: Venita Amanda on 05-29-2023 WBC corrected for nucl RBC Auto (Bld) [#/Vol] 8.7 10*3/uL 3.8-11.6 [facility] Lymphocytes Auto (Bld) [#/Vo l]Ordered By: Venita Amanda on 05-29-2023 Lymphocytes (Bld) [#/Vol] N/A [facility] Lymphocytes/100 WBC Auto (Bl d)Ordered By: Venita Amanda on 05-29-2023 Lymphocytes/100 WBC (Bld) N/A [facility] Lymphocytes/100 WBC Manual c nt (Bld)Ordered By: Venita Amanda on 05-29-2023 Lymphocytes/100 WBC (Bld) 23 % 18-42 [facility] MCH Auto (RBC) [Entitic mass ]Ordered By: Venita Amanda on 05-29-2023 MCH (RBC) [Entitic mass] 31.0 pg 24.7-34.3 [facility] MCHC Auto (RBC) [Mass/Vol]Or dered By: Venita Amanda on 05-29-2023 MCHC (RBC) [Mass/Vol] 33.2 g/dL 32.0-35.0 [facility] MCV Auto (RBC) [Entitic vol] Ordered By: Venita Amanda on 05-29-2023 MCV (RBC) [Entitic vol] 93.2 fL 80-100 [facility] Metamyelocytes/100 WBC Manua l cnt (Bld)Ordered By: Venita Amanda on 05-29-2023 Metamyelocytes/100 WBC (Bld) 4 % 0-0 [facility] Monocyte distribution width [Entitic volume] in Blood by AutomatedOrdered By: Venita Amanda on 05-29-2023 Monocyte distribution width Auto (Bld) [Entitic vol] 18.14 % 0.00-20.00 [facility] Monocytes Auto (Bld) [#/Vol] Ordered By: Venita Amanda on 05-29-2023 Monocytes (Bld) [#/Vol] N/A [facility] Monocytes/100 WBC Auto (Bld) Ordered By: Venita Amanda on 05-29-2023 Monocytes/100 WBC (Bld) N/A [facility] Monocytes/100 WBC Manual cnt (Bld)Ordered By: Venita Amanda on 05-29-2023 Monocytes/100 WBC (Bld) 1 % 2-11 [facility] Myelocytes/100 WBC Manual cn t (Bld)Ordered By: Venita Amanda on 05-29-2023 Myelocytes/100 WBC (Bld) 12 % 0-0 [facility] Neutrophils Auto (Bld) [#/Vo l]Ordered By: Venita Amanda on 05-29-2023 Neutrophils (Bld) [#/Vol] N/A [facility] Neutrophils/100 WBC Auto (Bl d)Ordered By: Venita Amanda on 05-29-2023 Neutrophils/100 WBC (Bld) N/A [facility] No Panel InformationOrdered By: Venita Amanda on 05-29-2023 Estimated GFR (CKD-EPI) > 60.0 mL/Min [facility] Creatinine Clearance (Chem 149.21 [facility] Slides for Pathologist Review Ordered path review [facility] Nucleated erythrocytes [Pres ence] in Blood by Automated countOrdered By: Venita Amanda on 05-29-2023 Nucleated RBC Auto Ql (Bld) N/A [facility] Platelet adequacy [Presence] in Blood by Light microscopyOrdered By: Venita Amanda on 05-29-2023 Platelets LM Ql (Bld) Normal Normal [facility] Platelet mean volume Auto (B ld) [Entitic vol]Ordered By: Venita Amanda on 05-29-2023 Platelet mean volume (Bld) [Entitic vol] 6.4 fL 6.3-10.7 [facility] Platelet morphology finding [Identifier] in BloodOrdered By: Venita Amanda on 05-29-2023 Platelet morphology finding Nom (Bld) Normal Normal [facility] Platelets Auto (Bld) [#/Vol] Ordered By: Venita Amanda on 05-29-2023 Platelets (Bld) [#/Vol] 403 10*3/uL 150-450 [facility] Polychromasia [Presence] in Blood by Light microscopyOrdered By: Venita Amanda on 05-29-2023 Polychromasia LM Ql (Bld) Slight [facility] Potassium [Moles/volume] in Serum or PlasmaOrdered By: Venita Amanda on 05-29-2023 Potassium [Moles/Vol] 4.0 mmol/L 3.5-5.1 [facility] RBC Auto (Bld) [#/Vol]Ordere d By: Venita Amanda on 05-29-2023 RBC (Bld) [#/Vol] 3.82 10*6/uL 3.60-5.00 [facility] RBC morphologyOrdered By: Fredrick Amanda on 05-29-2023 RBC morphology finding Nom (Bld) N/A [facility] Segmented neutrophils/100 WB C Manual cnt (Bld)Ordered By: Venita Amanda on 05-29-2023 Segmented neutrophils/100 WBC (Bld) 59 % 50-70 [facility] Serum or plasma anion gap de terminationOrdered By: Venita Amanda on 05-29-2023 Anion gap [Moles/Vol] TNP [facility] Comment on above: Test not performed Serum or plasma free cefurox jeni measurement (mass/volume)Ordered By: Arvind Regan on 05-29-2023 Cefuroxime free [Mass/Vol] Negative Negative [facility] Comment on above: Performed at: [address] [id number] Director: Tyrell Fernandez PhD, Phone: [phone] Sodium [Moles/volume] in Ser um or PlasmaOrdered By: Venita Amanda on 05-29-2023 Sodium [Moles/Vol] 134 mmol/L 136-145 [facility] Urea nitrogen [Mass/volume] in Serum or PlasmaOrdered By: Venita Amanda on 05-29-2023 Urea nitrogen [Mass/Vol] 11 mg/dL 7-25 [facility] WBC Auto (Bld) [#/Vol]Ordere d By: Venita Amanda on 05-29-2023 WBC (Bld) [#/Vol] 8.7 10*3/uL 3.8-11.6 [facility] CarbamazepineOrdered By: SYS TEM SYSTEM on 04-13-2023 Carbamaz Lvl 6.9 microgram/mL Normal 4.0-12.0 [facility] Comment on above: Performed By: #### 2 [id number] #### [facility] [address] [id number] Physician Orderon 04-13-2023 Physician Order [id number] 0#1.00TIFF Normal [facility] SodiumOrdered By: SYSTEM SYS TEM on 04-13-2023 Sodium [Moles/Vol] 134 mmol/L Low 135-145 [facility] Comment on above: Performed By: #### 2 [id number] #### [facility] [address] [place] [address] CHEMISTRYOrdered By: SYSTEM SYSTEM on 02-23-2023 Carbamaz Lvl 8.7 microgram/mL Normal 4.0 - 12.0 mcg/mL Rem[facility] Sodium [Moles/Vol] 123 mmol/L Low 135 - 145 mmol/L [facility] Carbamazepineon 02-23-2023 Carbamaz Lvl 8.7 microgram/mL Normal 4.0-12.0 [facility] Comment on above: Performed By: #### 2 [id number] #### [facility] [address] [place] [address] Physician Orderon 02-23-2023 Physician Order [id number] 6#1.00TIFF Normal [facility] Sodiumon 02-23-2023 Sodium [Moles/Vol] 123 mmol/L Low 135-145 [facility] Comment on above: Performed By: #### 2 [id number] #### [facility] [address] [place] [address] UA (CLEAN/CATCH) POPULATION HEALTH MANAGER/MICRO I F IND.on 05-17-2022 Bilirubin Ql (U) Negative Normal NEGATIVE [facility] Comment on above: Performed By: #### U ACSIND #### [facility] [address] [place] [address] Dr. Pio Mack Clarity (U) CLEAR Normal CLEAR [facility] Comment on above: Performed By: #### U ACSIND #### [facility] [address] [place] [address] Dr. Pio Mack Color (U) LT. YELLOW Normal YELLOW [facility] Comment on above: Performed By: #### U ACSIND #### [facility] [address] [place] [address] Dr. Pio Mack Glucose Ql (U) Negative Normal NEGATIVE [facility] Comment on above: Performed By: #### U ACSIND #### [facility] [address] [place] [address] Dr. Pio Mack Hemoglobin Ql (U) Negative Normal NEGATIVE [facility] Comment on above: Performed By: #### U ACSIND #### [facility] [address] [place] [address] Dr. Pio Mack Ketones Ql (U) Negative Normal NEGATIVE [facility] Comment on above: Performed By: #### U ACSIND #### [facility] [address] [place] [address] Dr. Pio Mack LEUKOCYTES Negative Normal NEGATIVE [facility] Comment on above: Performed By: #### U ACSIND #### [facility] [address] [place] [address] Dr. Pio Mack Nitrite Ql (U) Negative Normal NEGATIVE [facility] Comment on above: Performed By: #### U ACSIND #### [facility] [address] [address] [address] Pio Mack pH (U) 7.5 [pH] Normal 5-9 [facility] Comment on above: Performed By: #### U ACSIND #### [facility] [address] [place] [address] Dr. Pio Mack SPEC GRAVITY 1.010 Normal 1.005-<=1.02 5 [facility] Comment on above: Performed By: #### U ACSIND #### [facility] [address] [place] [address] Dr. Pio Mack UA PROTEIN Negative Normal NEGATIVE/ TRACE [facility] Comment on above: Performed By: #### U ACSIND #### [facility] [address] [place] [address] Dr. Pio Mack UR MICRO IND NOT INDICATED Normal [facility] Comment on above: Performed By: #### U ACSIND #### [facility] [address] [place] [address] Dr. Pio Mack Urobilinogen Qn (U) 0.2 {Polina'U}/dL Normal 0.2 - 1. 0 [facility] Comment on above: Performed By: #### U ACSIND #### [facility] [address] [place] [address] Dr. Pio Mack PAP ACOG PANEL 2: 30 to 65on 05-06-2022 . . Normal [facility] Comment on above: Result Comment: Perf ormed at: WB Performed By: #### 4 [id number] #### [facility] [address] [place] [address] Dr. Pio Mack Age Gdln ACOG Testing 30-65 Normal [facility] Comment on above: Performed By: #### 4 [id number] #### [facility] [address] [place] [address] Dr. Pio Mack DIAGNOSIS: Comment Normal [facility] Comment on above: Result Comment: NEGA TIVE FOR INTRAEPITHELIAL LESION OR MALIGNANCY. Performed at: WB Performed By: #### 4 [id number] #### [facility] [address] [place] [address] Dr. Pio Mack HPV Aptima Negative Normal Negative [facility] Comment on above: Result Comment: This nucleic acid amplification test detects fourteen high-risk HPV types (16,18,31,33,35,39,45,51,52,56,58,59,66,68) without differentiation. Performed at: =G Performed By: #### 4 [id number] #### [facility] [address] [place] [address] Dr. Pio Mack HPV Genotype Reflex Comment Normal [facility] Comment on above: Result Comment: Crit eria not met, HPV Genotype not performed. Performed at: WB Performed By: #### 4 [id number] #### [facility] [address] [place] [address] Dr. Pio Mack Methodology: Comment Normal [facility] Comment on above: Result Comment: This liquid based ThinPrep(R) pap test was screened with the use of an image guided system. Performed at: WB Performed By: #### 4 [id number] #### [facility] [address] [place] [address] Dr. Pio Mack Note: Comment Normal [facility] Comment on above: Result Comment: The Pap smear is a screening test designed to aid in the detection of premalignant and malignant conditions of the uterine cervix. It is not a diagnostic procedure and should not be used as the sole means of detecting cervical cancer. Both false-positive and false-negative reports do occur. . Performed at: WB Performed By: #### 4 [id number] #### [facility] [address] [place] [address] Dr. Pio Mack Performed by: Comment Normal [facility] Comment on above: Result Comment: Ayesha Poe, Account Executive [employer] (ASCP) Performed at: WB Performed By: #### 4 [id number] #### [facility] [address] [place], [place] [address] Dr. Pio Mack Specimen adequacy: Comment Normal [facility] Comment on above: Result Comment: Sati sfactory for evaluation. Endocervical and/or squamous metaplastic cells (endocervical component) are present. Performed at: WB Performed By: #### 4 [id number] #### [facility] [address] [address] [address] Pio Mack Vital Signs Date Time Vital Sign Value Performing Clinician Facility 10-03-2024 09:36-0400 Body height 162.6 cm Bhanu Ramirez DPM FACFAS Work Phone: [facility] 10-03-2024 09:36-0400 Body mass index (BMI) [Ratio] 33.81 kg/m2 Bhanu Ramirez DPM FACFAS Work Phone: [facility] 10-03-2024 09:36-0400 Body weight 89.36 kg Bhanu Ramirez DPM FACFAS Work Phone: [facility] 10-03-2024 09:36-0400 Diastolic blood pressure 68 mm[Hg] Bhanu Ramirez DPM FACFAS Work Phone: [facility] 10-03-2024 09:36-0400 Heart rate 72 /min Bhanu Ramirez DPM FACFAS Work Phone: [facility] 10-03-2024 09:36-0400 Systolic blood pressure 115 mm[Hg] Bhanu Ramirez DPM FACFAS Work Phone: [facility] 09-21-2024 14:39-0400 Body mass index (BMI) [Ratio] 30.44 kg/m2 Glenn Chatman MD Work Phone: [facility] 09-21-2024 14:39-0400 Body temperature 97.81 [degF] Glenn Chatman MD Work Phone: [facility] 09-21-2024 14:39-0400 Body weight 82.96 kg Glenn Chatman MD Work Phone: [facility] 09-21-2024 14:39-0400 Diastolic blood pressure 85 mm[Hg] [facility] 09-21-2024 14:39-0400 Heart rate 85 /min Glenn Chatman [facility] 09-21-2024 14:39-0400 Respiratory rate 18 /min Glenn Chatman [facility] 09-21-2024 14:39-0400 Systolic blood pressure 138 mm[Hg] Glenn Chatman MD Work Phone: [facility] 09-04-2024 10:32-0400 Body height 163.8 cm Linn Red MD Work Phone: [facility] 09-04-2024 10:32-0400 Body mass index (BMI) [Ratio] 31.03 kg/m2 Linn Red MD Work Phone: [facility] 09-04-2024 10:32-0400 Body weight 83.28 kg Linn Red MD Work Phone: [facility] 09-04-2024 10:32-0400 Diastolic blood pressure 70 mm[Hg] Linn Red MD Work Phone: [facility] 09-04-2024 10:32-0400 Systolic blood pressure 110 mm[Hg] Linn Red MD Work Phone: [facility] 08-21-2024 10:31-0400 Body height 162.6 cm Bhanu Ramirez DPM FACFAS Work Phone: [facility] 08-21-2024 10:31-0400 Body mass index (BMI) [Ratio] 33.81 kg/m2 Bhanu Ramirez DPM FACFAS Work Phone: [facility] 08-21-2024 10:31-0400 Body weight 89.36 kg Bhanu Ramirez DPM FACFAS Work Phone: [facility] 08-21-2024 10:31-0400 Diastolic blood pressure 69 mm[Hg] Bhanu Ivanden DPM FACFAS Work Phone: [facility] 08-21-2024 10:31-0400 Heart rate 70 /min Bhanu Ramirez DPM FACFAS Work Phone: [facility] 08-21-2024 10:31-0400 Systolic blood pressure 114 mm[Hg] Bhanu Ramirez DPM FACFAS Work Phone: [facility] 08-09-2024 09:36-0400 Body height 163.8 cm Eve Haque [employer] SUPERVISOR-RETAIL STORE ASSISTANT Work Phone: [facility] 08-09-2024 09:36-0400 Body mass index (BMI) [Ratio] 31.45 kg/m2 Eve Haque [employer] SUPERVISOR-RETAIL STORE ASSISTANT Work Phone: [facility] 08-09-2024 09:36-0400 Body weight 84.37 kg Eve Haque [employer] SUPERVISOR-RETAIL STORE ASSISTANT Work Phone: [facility] 08-09-2024 09:36-0400 Diastolic blood pressure 92 mm[Hg] Eve Haque [employer]ING SUPERVISOR-RETAIL STORE ASSISTANT Work Phone: [facility] 08-09-2024 09:36-0400 Heart rate 69 /min Eve Haque [employer]ING SUPERVISOR-RETAIL STORE ASSISTANT Work Phone: [facility] 08-09-2024 09:36-0400 Respiratory rate 16 /min Eve Haque [employer]ING SUPERVISOR-RETAIL STORE ASSISTANT Work Phone: [facility] 08-09-2024 09:36-0400 Systolic blood pressure 124 mm[Hg] Eve Haque [employer]ING SUPERVISOR-RETAIL STORE ASSISTANT Work Phone: [facility] 08-07-2024 14:12-0400 Body height 163.8 cm Linn Red MD Work Phone: [facility] 08-07-2024 14:12-0400 Body mass index (BMI) [Ratio] 31.54 kg/m2 Linn Red MD Work Phone: [facility] 08-07-2024 14:12-0400 Body weight 84.64 kg Linn Red MD Work Phone: [facility] 08-07-2024 14:12-0400 Diastolic blood pressure 68 mm[Hg] Linn Red MD Work Phone: [facility] 08-07-2024 14:12-0400 Systolic blood pressure 114 mm[Hg] Linn Red MD Work Phone: [facility] 08-07-2024 09:53-0400 Body height 162.6 cm Bhanu Dolce DPM FACFAS Work Phone: [facility] 08-07-2024 09:53-0400 Body mass index (BMI) [Ratio] 33.81 kg/m2 Bhanu Dolce DPM FACFAS Work Phone: [facility] 08-07-2024 09:53-0400 Body weight 89.36 kg Bhanu Dolce DPM FACFAS Work Phone: [facility] 08-07-2024 09:53-0400 Diastolic blood pressure 68 mm[Hg] Bhanu Dolce DPM FACFAS Work Phone: [facility] 08-07-2024 09:53-0400 Heart rate 71 /min Bhanu Dolce DPM FACFAS Work Phone: [facility] 08-07-2024 09:53-0400 Systolic blood pressure 112 mm[Hg] Bhanu Dolce DPM FACFAS Work Phone: [facility] 07-18-2024 10:55-0400 Body height 162.6 cm Bhanu Dolce DPM FACFAS Work Phone: [facility] 07-18-2024 10:55-0400 Body mass index (BMI) [Ratio] 33.81 kg/m2 Bhanu Dolce DPM FACFAS Work Phone: [facility] 07-18-2024 10:55-0400 Body weight 89.36 kg Bhanu Dolce DPM FACFAS Work Phone: [facility] 07-18-2024 10:55-0400 Diastolic blood pressure 66 mm[Hg] Bhanu Dolce DPM FACFAS Work Phone: [facility] 07-18-2024 10:55-0400 Heart rate 72 /min Bhanu Dolce DPM FACFAS Work Phone: [facility] 07-18-2024 10:55-0400 Systolic blood pressure 110 mm[Hg] Bhanu Dolce DPM FACFAS Work Phone: [facility] 2024 10:23-0400 Body height 162.6 cm Bhanu Dolce DPM FACFAS Work Phone: [facility] 2024 10:23-0400 Body mass index (BMI) [Ratio] 33.81 kg/m2 Bhanu Dolce DPM FACFAS Work Phone: [facility] 2024 10:23-0400 Body weight 89.36 kg Bhanu Dolce DPM FACFAS Work Phone: [facility] 2024 10:23-0400 Diastolic blood pressure 68 mm[Hg] Bhanu Dolce DPM FACFAS Work Phone: [facility] 2024 10:23-0400 Heart rate 75 /min Bhanu Dolce DPM FACFAS Work Phone: [facility] 2024 10:23-0400 Systolic blood pressure 108 mm[Hg] Bhanu Dolce DPM FACFAS Work Phone: [facility] 06-13-2024 13:33-0400 Body height 165.1 cm Zaid Jama APRN-CNM Work Phone: [facility] 06-13-2024 13:33-0400 Body mass index (BMI) [Ratio] 32.05 kg/m2 Zaid Jama ETHYLBENZENE CRACKING SUPERVISOR-CNM Work Phone: [facility] 06-13-2024 13:33-0400 Body weight 87.36 kg Zaid Jama ETHYLBENZENE CRACKING SUPERVISOR-CNM Work Phone: [facility] 06-13-2024 13:33-0400 Diastolic blood pressure 72 mm[Hg] Zaid Jama ETHYLBENZENE CRACKING SUPERVISOR-CNM Work Phone: [facility] 06-13-2024 13:33-0400 Systolic blood pressure 116 mm[Hg] Zaid Jama ETHYLBENZENE CRACKING SUPERVISOR-CNM Work Phone: [facility] 06-04-2024 10:33-0400 Body height 162.6 cm Valentina Dukes PA Work Phone: [facility] 06-04-2024 10:33-0400 Body mass index (BMI) [Ratio] 33.81 kg/m2 Valentina Dukes PA Work Phone: [facility] 06-04-2024 10:33-0400 Body weight 89.36 kg Valentina Dukes PA Work Phone: [facility] 06-04-2024 10:33-0400 Diastolic blood pressure 72 mm[Hg] Valentina Dukes PA Work Phone: [facility] 06-04-2024 10:33-0400 Heart rate 73 /min Valentina Dukes PA Work Phone: [facility] 06-04-2024 10:33-0400 Respiratory rate 16 /min Valentina Dukes PA Work Phone: [facility] 06-04-2024 10:33-0400 SaO2% (BldA) [Mass fraction] 96 % Valentina Dukes PA Work Phone: [facility] 06-04-2024 10:33-0400 Systolic blood pressure 104 mm[Hg] Valentina Dukes PA Work Phone: [facility] 02-29-2024 11:05-0500 Body mass index (BMI) [Ratio] 31.24 kg/m2 Damien Jones NP Work Phone: [facility] 02-29-2024 11:05-0500 Body weight 82.56 kg Damien Jones NP Work Phone: [facility] 02-29-2024 11:05-0500 Diastolic blood pressure 82 mm[Hg] Damien Jones COMMUNITY AIDE Work Phone: [facility] 02-29-2024 11:05-0500 Heart rate 84 /min Damien Jones COMMUNITY AIDE Work Phone: [facility] 02-29-2024 11:05-0500 Systolic blood pressure 142 mm[Hg] Damien Jones COMMUNITY AIDE Work Phone: [facility] 02-28-2024 09:30-0500 Body height 162.6 cm Bhanu Dolce DPM FACFAS Work Phone: [facility] 02-28-2024 09:30-0500 Body mass index (BMI) [Ratio] 31.58 kg/m2 Bhanu Dolce DPM FACFAS Work Phone: [facility] 02-28-2024 09:30-0500 Body weight 83.46 kg Bhanu Dolce DPM FACFAS Work Phone: [facility] 02-28-2024 09:30-0500 Diastolic blood pressure 82 mm[Hg] Bhanu Dolce DPM FACFAS Work Phone: [facility] 02-28-2024 09:30-0500 Heart rate 71 /min Bhanu Dolce DPM FACFAS Work Phone: [facility] 02-28-2024 09:30-0500 Systolic blood pressure 132 mm[Hg] Bhanu Dolce DPM FACFAS Work Phone: [facility] 02-01-2024 09:00-0500 Body height 165.1 cm Penny Denton RN [facility] 02-01-2024 09:00-0500 Body mass index (BMI) [Ratio] 31.72 kg/m2 Penny Denton RN [facility] 02-01-2024 09:00-0500 Body weight 86.46 kg Penny Denton RN [facility] 12-15-2023 09:17-0400 Body temperature 98.2 [degF] Micaela Heard CAA Work Phone: [facility] 12-15-2023 09:17-0400 Respiratory rate 0 /min Micaela VELEZ Work Phone: [facility] 12-15-2023 09:16-0400 Diastolic blood pressure 90 mm[Hg] Micaela VELEZ Work Phone: [facility] 12-15-2023 09:16-0400 Heart rate 84 /min Micaela VELEZ Work Phone: [facility] 12-15-2023 09:16-0400 SaO2% (BldA) [Mass fraction] 95 % Micaela VELEZ Work Phone: [facility] 12-15-2023 09:16-0400 Systolic blood pressure 125 mm[Hg] Micaela VELEZ Work Phone: [facility] 11-09-2023 09:19-0400 Body height 162.6 cm Bhanu Dolce DPM FACFAS Work Phone: [facility] 11-09-2023 09:19-0400 Body mass index (BMI) [Ratio] 31.58 kg/m2 Bhanu Dolce DPM FACFAS Work Phone: [facility] 11-09-2023 09:19-0400 Body weight 83.46 kg Bhanu Dolce DPM FACFAS Work Phone: [facility] 11-09-2023 09:19-0400 Diastolic blood pressure 80 mm[Hg] Bhanu Lovece DPM FACFAS Work Phone: [facility] 11-09-2023 09:19-0400 Heart rate 68 /min Bhanu Lovece DPM FACFAS Work Phone: [facility] 11-09-2023 09:19-0400 Systolic blood pressure 130 mm[Hg] Bhanu Lovece DPM FACFAS Work Phone: [facility] 10-27-2023 09:37-0400 Diastolic blood pressure 62 mm[Hg] Case Melchor MD Work Phone: [facility] 10-27-2023 09:37-0400 Heart rate 65 /min Case Melchor MD Work Phone: [facility] 10-27-2023 09:37-0400 Systolic blood pressure 102 mm[Hg] Case Melchor MD Work Phone: [facility] 10-27-2023 09:34-0400 Body weight 83.46 kg Case Melchor MD Work Phone: [facility] 08-06-2023 22:14-0400 Diastolic blood pressure 81 mm[Hg] ETHYLBENZENE CRACKING SUPERVISOR Venita Saffle Work Phone: [facility] 08-06-2023 22:14-0400 Heart rate 85 /min ETHYLBENZENE CRACKING SUPERVISOR Venita Saffle Work Phone: [facility] 08-06-2023 22:14-0400 Respiratory rate 22 /min ETHYLBENZENE CRACKING SUPERVISOR Venita Saffle Work Phone: [facility] 08-06-2023 22:14-0400 SaO2% (BldA) [Mass fraction] 100 % ETHYLBENZENE CRACKING SUPERVISOR Venita Saffle Work Phone: [facility] 08-06-2023 22:14-0400 Systolic blood pressure 142 mm[Hg] ETHYLBENZENE CRACKING SUPERVISOR Venita Saffle Work Phone: [facility] 08-06-2023 19:54-0400 Body height 163.83 cm ETHYLBENZENE CRACKING SUPERVISOR Venita Saffle Work Phone: [facility] 08-06-2023 19:54-0400 Body temperature 98.2 [degF] ETHYLBENZENE CRACKING SUPERVISOR Venita Saffle Work Phone: [facility] 08-06-2023 19:54-0400 Body weight 82 kg ETHYLBENZENE CRACKING SUPERVISOR Venita Saffle Work Phone: [facility] 07-28-2023 14:10-0400 Diastolic blood pressure 80 mm[Hg] Case Melchor MD Work Phone: [facility] 07-28-2023 14:10-0400 Heart rate 75 /min Case Melchor MD [facility] 07-28-2023 14:10-0400 Systolic blood pressure 110 mm[Hg] [facility] 07-28-2023 14:07-0400 Body weight 80.74 kg Case Melchor MD Work Phone: [facility] 07-28-2023 14:07-0400 SaO2% (BldA) [Mass fraction] 100 % Case Melchor MD Work Phone: [facility] 06-01-2023 12:00-0400 Body temperature 97.3 [degF] ETHYLBENZENE CRACKING SUPERVISOR Venita Saffle Work Phone: [facility] 06-01-2023 12:00-0400 Diastolic blood pressure 81 mm[Hg] ETHYLBENZENE CRACKING SUPERVISOR Venita Saffle Work Phone: [facility] 06-01-2023 12:00-0400 Heart rate 82 /min ETHYLBENZENE CRACKING SUPERVISOR Venita Saffle Work Phone: [facility] 06-01-2023 12:00-0400 Respiratory rate 18 /min ETHYLBENZENE CRACKING SUPERVISOR Venita Saffle Work Phone: [facility] 06-01-2023 12:00-0400 SaO2% (BldA) [Mass fraction] 98 % ETHYLBENZENE CRACKING SUPERVISOR Venita Saffle Work Phone: [facility] 06-01-2023 12:00-0400 Systolic blood pressure 137 mm[Hg] ETHYLBENZENE CRACKING SUPERVISOR Venita Saffle Work Phone: [facility] 06-01-2023 06:00-0400 Body weight 82 kg ETHYLBENZENE CRACKING SUPERVISOR Venita Saffle Work Phone: [facility] 05-30-2023 12:46-0400 Body height 165.1 cm ETHYLBENZENE CRACKING SUPERVISOR Venita Saffle Work Phone: [facility] 05-29-2023 16:36-0400 Diastolic blood pressure 98 mm[Hg] [facility] 05-29-2023 16:36-0400 Systolic blood pressure 148 mm[Hg] [facility] 05-29-2023 15:48-0400 Body temperature 98.1 [degF] [facility] 05-29-2023 15:48-0400 Heart rate 90 /min [facility] 05-29-2023 15:48-0400 Respiratory rate 18 /min [facility] 05-29-2023 15:48-0400 SaO2% (BldA) [Mass fraction] 96 % [facility] 05-29-2023 13:05-0400 Body height 165.1 cm [facility] 05-29-2023 13:05-0400 Body weight 81.6 kg [facility] Encounters Encounter Date Encounter Type Care Provider Facility Start: 10-05-2024 End: 10-05-2024 Telephone encounter Alvin Garcia RN [facility] Pre-Admission Testing Comment on above: Dental (DD adult den marixa restorations 10/08/24 under [place] at [facility]. PAT completed 09/21/24. Consents obtained from [facility] [place]. KIM RN spoke to Yazmin MARES at [facility] on 10/05/24. Confirmed NPO after 2200. [facility] address [address] [place] [address]. 0630 arrival time. Staff from [facility] will be accompanying pt DOS./) Start: 10-03-2024 End: 10-03-2024 Bamboo flowsheet Bhanu Ramirez DPM FACFAS Work Phone: [facility] Start: 10-03-2024 End: 10-03-2024 Bamboo flowsheet Bhanu Ramirez DPM FACFAS Work Phone: [facility] Start: 10-03-2024 End: 10-03-2024 Telephone encounter [facility] Start: 10-03-2024 End: 10-03-2024 Office outpatient visit 15 minutes Bhanu Ramirez DPM FACFAS Work Phone: [facility] Comment on above: Exostosis of right f oot (Primary Dx); Other enthesopathy of right foot and ankle Start: 10-03-2024 End: 10-03-2024 ambulatory BHANU RAMIREZ Not Available Start: 09-28-2024 End: 09-28-2024 Telephone encounter Megha Sanchez RN [facility] Pre-Admission Testing Start: 09-21-2024 ambulatory UNKNOWN PROVIDER Facili ty:[facility] Start: 09-21-2024 End: 10-05-2024 Office outpatient new 45 minutes Glenn Chatman MD Work Phone: [facility] Comment on above: Pre-op evaluation (P rimary Dx); Body mass index (BMI) 30.0-30.9, adult Start: 09-21-2024 End: 10-05-2024 Preprocedural examination done Glenn Chatman MD Work Phone: [facility] Work Phone: Start: 09-04-2024 End: 09-04-2024 Office outpatient visit 15 minutes Linn Red MD Work Phone: [facility]stetric[facility]Gyne[facility] Comment on above: Mastodynia, female ( Primary Dx) Start: 09-04-2024 End: 09-04-2024 ambulatory LINN RED [facility] Start: 08-28-2024 ambulatory OG MAHONEY Facilit y:[facility] Start: 08-23-2024 End: 08-23-2024 ambulatory Lio Muñoz [facility] Work Phone: Start: 08-23-2024 End: 08-23-2024 Departed Referred Lio Muñoz DO -LAB [facility] Start: 08-21-2024 End: 08-21-2024 Bamboo flowsheet Bhanu Ramirez DPM FACFAS Work Phone: [facility] Start: 08-21-2024 End: 08-21-2024 Bamboo flowsheet Bhanu Ramirez DPM FACFAS Work Phone: [facility] Start: 08-21-2024 End: 08-21-2024 Office outpatient visit 15 minutes Bhanu D Ivance DPM FACFAS Work Phone: [facility] Comment on above: Exostosis of right f oot (Primary Dx); Other enthesopathy of right foot and ankle; Right foot pain Start: 08-21-2024 End: 08-21-2024 ambulatory BHANU D DOLDEN Not Available Start: 08-09-2024 End: 08-09-2024 ambulatory [facility] Start: 08-09-2024 End: 08-09-2024 Office outpatient new 30 minutes Eve Haque ETHYLBENZENE CRACKING SUPERVISOR-RETAIL STORE ASSISTANT Work Phone: [facility] Surgical Oncology Comment on above: Mass of right breast , unspecified quadrant (Primary Dx); Breast skin changes; Mastodynia, female Start: 08-09-2024 End: 08-09-2024 [facility] Start: 08-08-2024 End: 08-08-2024 Admission to same day surgery center Risa Sofia DDS Work Phone: [facility] Start: 08-07-2024 End: 08-07-2024 Office outpatient visit 15 minutes Linn Red MD Work Phone: [facility]stetric[facility]Gynecology Comment on above: Mastodynia, female ( Primary Dx); Mass of right breast, unspecified quadrant Start: 08-07-2024 End: 08-07-2024 ambulatory [facility] Start: 08-07-2024 End: 08-07-2024 Bamboo flowsheet Bhanu D Dolce DPM FACFAS Work Phone: [facility] Start: 08-07-2024 End: 08-07-2024 Bamboo flowsheet Bhanu D Dolce DPM FACFAS Work Phone: [facility] Start: 08-07-2024 End: 08-07-2024 Office outpatient visit 15 minutes Bhanu D Dolce DPM FACFAS Work Phone: [facility] Comment on above: Exostosis of right f oot (Primary Dx); Other enthesopathy of right foot and ankle; Pain in right toe(s); Right foot pain; Onychomycosis; Pain in left toe(s) Start: 08-07-2024 End: 08-07-2024 ambulatory BHANU D DOLCE Not Available Start: 07-18-2024 End: 07-18-2024 Bamboo flowsheet Bhanu D Dolce DPM FACFAS Work Phone: [facility] Start: 07-18-2024 End: 07-18-2024 Bamboo flowsheet Bhanu D Dolce DPM FACFAS Work Phone: [facility] Start: 07-18-2024 End: 07-18-2024 Office outpatient visit 15 minutes Bhanu D [...] Start: 06-13-2024 End: 06-13-2024 Manual pelvic examination Zaid Jama APRN-[facility] Work Phone: [facility] Work Phone: Start: 06-13-2024 End: 06-13-2024 Patient encounter procedure [facility] ETHYLBENZENE CRACKING SUPERVISOR-CNM Work Phone: [facility]etric[facility]Gynecology Comment on above: Encounter for breast and pelvic examination (Primary Dx) Start: 06-13-2024 End: 06-13-2024 ambulatory [facility] Start: 06-13-2024 Encounter for gynecological examination (general) (routine) without abnormal findings [facility] Start: 06-04-2024 End: 06-04-2024 Bamboo flowsheet Valentina PYLE Work Phone: [facility] Start: 06-04-2024 End: 06-04-2024 Bamboo flowsheet Valentina PYLE Work Phone: [facility] Start: 06-04-2024 End: 06-04-2024 Office outpatient visit 15 minutes Valentina PYLE Work Phone: [facility] Comment on above: Convulsions, unspeci fied convulsion type (CMS/HCC) (Primary Dx); Hyponatremia; Developmental delay; Anger reaction Start: 06-04-2024 End: 06-04-2024 ambulatory VALENTINA DUKES Not Available Start: 05-08-2024 End: 05-08-2024 ambulatory BHANU RAMIREZ Not Available Start: 02-29-2024 End: 02-29-2024 Bamboo flowsheet Damien Jones COMMUNITY AIDE Work Phone: [facility] Start: 02-29-2024 End: 02-29-2024 Bamboo flowsheet Damien Jones COMMUNITY AIDE Work Phone: [facility] Start: 02-29-2024 End: 02-29-2024 Office outpatient visit 25 minutes Damien Jones COMMUNITY AIDE Work Phone: [facility] Comment on above: Convulsions, unspeci fied convulsion type (CMS/HCC) (Primary Dx); Hyponatremia; Developmental delay; Anger reaction Start: 02-29-2024 End: 02-29-2024 ambulatory DAMIEN JONES Not Available Start: 02-28-2024 End: 02-28-2024 Bamboo flowsheet Bhanu Ann Dolden DPM FACFAS Work Phone: [facility] Start: 02-28-2024 End: 02-28-2024 Bamboo flowsheet Bhanu Juarez Dolden DPM FACFAS Work Phone: [facility] Start: 02-28-2024 End: 02-28-2024 Patient encounter procedure Bhanu Ramirez DPM FACFAS Work Phone: [facility] Comment on above: Onychomycosis (Prima ry Dx); Pain in right toe(s); Pain in left toe(s) Start: 02-28-2024 End: 02-28-2024 ambulatory BHANU Juarez IVANDEN Not Available Start: 02-23-2024 End: 02-27-2024 Patient encounter procedure Sarba Frias DMD Work Phone: [facility] Start: 02-23-2024 End: 02-27-2024 ambulatory UNKNOWN PROVIDER Facility:[facility] Start: 02-14-2024 End: 02-14-2024 Telephone encounter Megha Sanchez RN [facility] Pre-Admission Testing Start: 02-01-2024 End: 02-01-2024 Nursing evaluation of patient and report Penny Denton RN [facility] Pre-Admission Testing Comment on above: Pre-op evaluation (P rimary Dx) Start: 02-01-2024 End: 02-01-2024 Preprocedural examination done Penny Denton RN [facility] Start: 02-01-2024 ambulatory UNKNOWN PROVIDER Facili ty:[facility] Start: 02-01-2024 Encounter for other preprocedural examination UNKNOWN PROVIDER [facility] Start: 01-07-2024 End: 01-07-2024 Letter encounter [facility] Start: 12-15-2023 End: 12-19-2023 ambulatory MARELNI ALEJANDRO Facility:[facility] Start: 12-15-2023 End: 12-15-2023 Anesthesia consultation Orquidea Florez MD Work Phone: [facility] Start: 12-15-2023 End: 12-15-2023 Patient encounter procedure Marleni Alejandro DDS Work Phone: [facility] Comment on above: Caries (Primary Dx) Start: 12-09-2023 End: 12-09-2023 Bamboo flowsheet Ivory A Felter ETHYLBENZENE CRACKING SUPERVISOR-RETAIL STORE ASSISTANT Work Phone: [facility] Start: 12-09-2023 End: 12-09-2023 Bamboo flowsheet Ivory A Felter ETHYLBENZENE CRACKING SUPERVISOR-RETAIL STORE ASSISTANT Work Phone: [facility] Start: 12-09-2023 End: 12-09-2023 Office outpatient new 30 minutes Ivory A Felter ETHYLBENZENE CRACKING SUPERVISOR-RETAIL STORE ASSISTANT Work Phone: [facility] Comment on above: Lip licking dermatit is Start: 12-09-2023 End: 12-09-2023 ambulatory IVORY A FELTER Not Available Start: 11-23-2023 End: 11-23-2023 Telephone encounter Idania Campbell RN [facility] Pre-Admission Testing Comment on above: PAT (Anesthesia cons ent obtained) Start: 11-23-2023 ambulatory UNKNOWN PROVIDER Facili ty:[facility] Start: 11-09-2023 End: 11-09-2023 Bamboo flowsheet Bhanu D Ivance DPM FACFAS Work Phone: [facility] Start: 11-09-2023 End: 11-09-2023 Bamboo flowsheet Bhanu D Dolce DPM FACFAS Work Phone: [facility] Start: 11-09-2023 End: 11-09-2023 ambulatory BHANU D DOLCE Not Available Start: 11-09-2023 End: 11-09-2023 Patient encounter procedure Bhanu Ann Lovece DPM FACFAS Work Phone: [facility] Comment on above: Onychomycosis (Prima ry Dx); Pain in right toe(s); Pain in left toe(s) Start: 10-27-2023 End: 10-27-2023 Office outpatient visit 25 minutes Case Melchor MD Work Phone: [facility] Comment on above: Hyponatremia (Primar y Dx) Start: 10-19-2023 End: 10-19-2023 Patient encounter procedure Lizandro Veronica DDS Work Phone: [facility] Comment on above: Caries (Primary Dx) Start: 10-19-2023 ambulatory LIZANDRO VERONICA Facility:[facility] Start: 08-06-2023 End: 08-07-2023 Emergency department patient visit ETHYLBENZENE CRACKING SUPERVISOR Venita Amanda Work Phone: [facility] Work Phone: Start: 08-01-2023 End: 08-01-2023 Telephone encounter Scanning Provider External [facility] Start: 07-28-2023 End: 07-28-2023 Office outpatient new 45 minutes Case Melchor MD Work Phone: [facility] Comment on above: Hyponatremia (Primar y Dx) Start: 05-30-2023 End: 06-01-2023 Evaluation and management of inpatient IMAN Francoisfle Work Phone: [facility] Work Phone: Start: 05-29-2023 Evaluation and manag ement of inpatient [facility]-[address] [place] [address] Surgical Work Phone: Start: 05-29-2023 observation encounter NON STAFF F [facility] Work Phone: Start: 05-29-2023 End: 06-01-2023 Non-patient / Non-visit [facility] Work Phone: Start: 05-25-2023 Orders Only Case perez MD Work Phone: [facility] Comment on above: Hyponatremia (Primar y Dx) Start: 04-13-2023 End: 04-14-2023 ambulatory LIO SHANEKA [facility] Start: 04-13-2023 End: 04-13-2023 Lab Drop off LIO SHANEKA [facility] Start: 02-23-2023 End: 02-23-2023 Lab Drop off ILO SPEARSRING [facility] Start: 02-23-2023 End: 02-24-2023 ambulatory LIO MUÑOZ [facility] Start: 07-21-[address] LIO MUÑOZ Fac ility:[facility] Start: 06-10-2022 End: 06-14-2022 Patient encounter procedure Scarlett Albarran DDS Work Phone: [facility] Start: 05-17-2022 End: 05-17-[address] LIO MUÑOZ Facility: Start: 04-28-2022 End: 04-28-[address] SONAL CARRERO . Facility: Start: 04-06-2022 Letter encounter David osorio Start: 05-08-2018 End: 05-12-2018 Patient encounter procedure PROVIDER NOT IN SYSTEM [facility] Procedures Date Procedure Procedure Detail Performing Clinician Start: 09-04-2024 Follow-up visit Follow-up LINN RED Start: 06-13-2024 Microscopic observat ion [Identifier] in Cervix by Cyto stain Zaid Jama ETHYLBENZENE CRACKING SUPERVISOR-CN Work Phone: Start: 08-06-2023 SARS-CoV-2, Influenz a & RSV (PCR) IMAN Amanda Work Phone: Start: 05-29-2023 CT of facial bones w ith contrast Start: 05-29-2023 Blood culture for bacteria, including anaerobic screen IMAN Amanda Work Phone: Plan of Treatment Date Care Activity Detail Author Start: 2036 Shingles (RZV) Vacci ne (1 of 2) Shingles (RZV) Vaccine (1 of 2) [facility] Start: 11-11-2029 DTaP,Tdap and Td Vaccines (7 - Td or Tdap) DTaP,Tdap and Td Vaccines (7 - Td or Tdap) [facility] Start: 11-11-2029 Tetanus vaccination Tetanus (T d or Tdap) Booster [facility] Start: 06-14-2027 Screening for malign ant neoplasm of cervix Pap Smear [facility] Start: 08-09-2025 Adult BMI Screening Adult BMI Screen ing [facility] Start: 08-09-2025 Tobacco Screening Tobacco Screening [facility] Start: 08-07-2025 Adult BMI Screening Adult BMI Screen ing [facility] Start: 08-07-2025 Tobacco Screening Tobacco Screening [facility] Start: 06-13-2025 Adult BMI Screening Adult BMI Screen ing [facility] Start: 06-13-2025 Tobacco Screening Tobacco Screening [facility] Start: 11-21-2024 Influenza vaccination Influenza Vacc ine (#1) [facility] Start: 11-20-2024 End: 11-20-2024 Patient encounter procedure 11/20/2024 11:00 AM EDT Office Visit [facility] [address] [place] [address] Abby Bauman PA [address] [place] [address] [facility] Start: 11-14-2024 End: 11-14-2024 Patient encounter procedure 11/14/2024 9:00 AM EDT Procedure Visit [facility] [address] [place] [phone] Bhanu Ramirez, DPM FACFAS [address] [place] [address] [facility] Start: 11-06-2024 End: 11-06-2024 Patient encounter procedure 11/06/2024 9:40 AM EDT Procedure Visit [facility] [address] [place] [phone] Bhanu Ramirez, DPM FACFAS [address] [place] [address] [facility] Start: 10-22-2024 Influenza vaccination [facility] Start: 10-17-2024 End: 10-17-2024 Patient encounter procedure 10/17/2024 8:40 AM EDT Office Visit [facility] [address] [phone] Migdalia Mike NP [address] [address] [facility] Start: 10-08-2024 End: 10-08-2024 Admission to same day surgery center [facility] Comment on above: [facility] Start: 10-08-2024 End: 10-08-2024 DENTAL RESTORATIONS [facility] Start: 10-08-2024 Subsequent hospital visit by physician [facility] Start: 10-08-2024 End: 10-08-2024 Patient encounter procedure 10/08/2024 6:30 AM EDT Procedure Visit [facility] [address] [place] [address] Og Mahoney, DDS [address] [place], [place] [phone] [facility] Start: 10-03-2024 End: 10-03-2024 Clinical Support 10/03/2024 9:30 AM EDT Clinical Support [facility] [address] [place] [address] Bhanu Ramirez, DPM FACFAS [address] [place] [address] Arrived [facility] Comment on above: Arrived Start: 09-04-2024 End: 09-04-2024 Patient encounter procedure 09/04/2024 10:00 AM EDT [facility] [address] [place] [address] Linn Red MD [address] [place] [address] [facility] Start: 08-27-2024 End: 08-27-2024 Patient encounter procedure 08/27/2024 10:20 AM EDT Office Visit [facility]ARC[facility] [address] [place] [phone] Valentina Dukes PA [address] [place] [address] [facility] Start: 08-23-2024 Urine culture [facility] Start: 08-23-2024 Bacteria identified in Urine by Culture Urine Culture [facility] Start: 08-21-2024 End: 08-21-2024 Clinical Support [facility] Comment on above: Arrived Start: 08-07-2024 End: 08-07-2025 MG Breast duct - right Views W contrast intra duct Mammography diagnostic unilateral right with CAD Imaging Routine Mastodynia, female Mass of right breast, unspecified quadrant Expected: 08/07/2024, Expires: 08/07/2025 [employer] Work Phone: Comment on above: Expected: 08/07/2024 , Expires: 08/07/2025 Start: 08-07-2024 End: 08-07-2025 MR Breast - bilateral WO and W contrast IV MR bilateral breast with and without contrast with CAD Imaging Routine Mastodynia, female Mass of right breast, unspecified quadrant Expected: 08/07/2024, Expires: 08/07/2025 [employer] Comment on above: Expected: 08/07/2024 , Expires: 08/07/2025 Start: 08-07-2024 End: 08-07-2025 US Breast - right limited Ultrasound breast limited right Imaging Routine Mastodynia, female Mass of right breast, unspecified quadrant Expected: 08/07/2024, Expires: 08/07/2025 [employer] Comment on above: Expected: 08/07/2024 , Expires: 08/07/2025 Start: 08-07-2024 End: 08-07-2024 Patient encounter procedure [facility] Comment on above: Arrived Start: 07-18-2024 End: 07-18-2024 Patient encounter procedure [facility] Comment on above: Arrived Start: 2024 End: 2024 Patient encounter procedure 2024 10:20 AM EDT Office Visit [facility] [address] [place] [phone] Bhanu Ramirez, DPM FACFAS [address] [address] Arrived [facility] Comment on above: Arrived Start: 06-04-2024 End: 06-04-2024 Patient encounter procedure 06/04/2024 10:40 AM EDT Office Visit [facility] [address] [place] [phone] Valentina Dukes PA [address] [place] [address] Arrived [facility] Comment on above: Arrived Start: 05-17-2024 End: 05-17-2024 Patient encounter procedure 05/17/2024 8:40 AM EDT Office Visit [facility] [address] [place] [phone] Damien Jones NP [address] [place] [address] [facility] Start: 05-08-2024 End: 05-08-2024 Patient encounter procedure 05/08/2024 9:30 AM EDT Procedure Visit [facility] [address] [place] [phone] Bhanu Ramirez, DPM FACFAS [address] [place] [address] [facility] Start: 02-29-2024 End: 02-29-2024 Patient encounter procedure [facility] [place] [address] Comment on above: Arrived Start: 02-28-2024 End: 02-28-2024 Patient encounter procedure [facility] Comment on above: Arrived Start: 02-23-2024 End: 02-23-2024 Patient encounter procedure 02/23/2024 10:50 AM EST Procedure Visit [facility] [address] [place] [address] Sabra Frias, [address] [place] [address] [facility] Start: 02-01-2024 End: 02-01-2024 Nursing evaluation of patient and report 02/01/2024 9:00 AM EST Nurse Visit [facility] Pre-Admission Testing [address] [phone] Penny Denton RN [address] [place] [address] [facility] Start: 12-15-2023 End: 12-15-2023 Patient encounter procedure 12/15/2023 12:00 PM EDT Procedure Visit [facility] [address] [place] [address] Sabra Frias, TYS[address] [place] [address] [facility] Start: 12-09-2023 End: 12-09-2023 Patient encounter procedure 12/09/2023 12:40 PM EDT Office Visit [facility] [address] [place] [phone] Ivory Hannah APRN-RETAIL STORE ASSISTANT [address] [place] [address] Arrived [facility] Comment on above: Arrived Start: 11-22-2023 Influenza vaccination Influenza Vacc ine (#1) [facility] Start: 10-27-2023 End: 10-27-2023 Patient encounter procedure 10/27/2023 9:30 AM EDT Office Visit [facility] [place] [address] [facility] [place] [address] Case Melchor MD [address] [place] [address] [facility] Start: 10-23-2023 COVID-19 Vaccine ( season) COVID-19 Vaccine () [facility] Start: 10-23-2023 COVID-19 Vaccine ( season) COVID-19 Vaccine () [facility] Start: 10-23-2023 Influenza [facility] Start: 08-06-2023 CT of head without contrast CT head/brain wo con [facility] Start: 08-06-2023 CT Unspecified body region WO contrast [facility] Start: 08-06-2023 Diagnostic radiograp hy of abdomen [facility] Start: 08-06-2023 Bacteria identified in Urine by Culture [facility] Start: 07-28-2023 End: 07-28-2023 Patient encounter procedure 07/28/2023 2:30 PM EDT Office Visit [facility] [place] [address] [facility] [address] Case Melchor MD [address] [address] [facility] Start: 07-28-2023 End: 07-20-2024 Cortisol Cortisol Lab Routine Hyponatremia Expected: 07/28/2023 (Approximate), Expires: 07/20/2024 [facility] Work Phone: Comment on above: Expected: 07/28/2023 (Approximate), Expires: 07/20/2024 Start: 07-28-2023 End: 07-20-2024 Osmolality of Serum or Plasma Osmolality Lab Routine Hyponatremia Expected: 07/28/2023 (Approximate), Expires: 07/20/2024 [facility] Comment on above: Expected: 07/28/2023 (Approximate), Expires: 07/20/2024 Start: 07-28-2023 End: 07-20-2024 Osmolality, urine Osmolality, urine Lab Routine Hyponatremia Expected: 07/28/2023 (Approximate), Expires: 07/20/2024 [facility] Comment on above: Expected: 07/28/2023 (Approximate), Expires: 07/20/2024 Start: 07-28-2023 End: 07-20-2024 TSH with Reflex TSH with Reflex Lab Routine Hyponatremia Expected: 07/28/2023 (Approximate), Expires: 07/20/2024 [facility] Comment on above: Expected: 07/28/2023 (Approximate), Expires: 07/20/2024 Start: 07-28-2023 End: 07-20-2024 Urate [Mass/volume] in Serum or Plasma Uric acid Lab Routine Hyponatremia Expected: 07/28/2023 (Approximate), Expires: 07/20/2024 [facility] Comment on above: Expected: 07/28/2023 (Approximate), Expires: 07/20/2024 Start: 06-09-2023 End: 06-09-2023 Patient encounter procedure 06/09/2023 10:00 AM EDT [facility] [address] [place] [address] [facility] Start: 06-08-2023 [facility] Start: 06-07-2023 [facility] Start: 06-06-2023 [facility] Start: 06-05-2023 [facility] Start: 06-04-2023 [facility] Start: 06-03-2023 [facility] Start: 06-02-2023 [facility] Start: 06-01-2023 End: 06-01-2023 [facility] Start: 05-31-2023 [facility] Start: 05-30-2023 Comprehensive metabo lic 2000 panel - Serum or Plasma [facility] Start: 05-30-2023 End: 05-30-2023 [facility] Start: 05-29-2023 Hospital admission [facility] Start: 05-29-2023 [facility] Start: 05-29-2023 Bacteria identified in Blood by Culture [facility] Start: 05-29-2023 Blood culture for bacteria, including anaerobic screen Blood Culture [facility] Start: 05-29-2023 [facility] Start: 10-22-2022 COVID-19 Vaccine () COVID-19 Vaccine () [facility] Start: 05-03-2022 End: 05-03-2022 Patient encounter procedure 05/03/2022 Procedure Visit Dentistry Holli Nguyen, DDS [address] [place] [address] [facility] Start: 11-21-2021 Influenza vaccination Influenza Vacc ine (#1) [facility] Start: 02-11-2021 COVID-19 Vaccine (4 - Booster for Pfizer series) COVID-19 Vaccine (4 - Booster for Pfizer series) [facility] Start: 2016 Screening for malign ant neoplasm of cervix [facility] Start: 2013 HPV Vaccine (optiona l start 27-45 years) HPV Vaccine (optional start 27-45 years) [facility] Start: 04-21-2008 Annual wellness visit Annual W ellness Visit (G0438) [facility] Start: 07-05-2007 Screening for malign ant neoplasm of cervix Pap Smear [facility] Start: 2005 DTaP,Tdap and Td Vaccines (1 - Tdap) DTaP,Tdap and Td Vaccines (1 - Tdap) [facility] Start: 2005 Hepatitis A (HAV) Vaccine (optional start 19+ years) Hepatitis A (HAV) Vaccine (optional start 19+ years) [facility] Start: 2004 Adult BMI Follow Up Plan Adult BMI Follow Up Plan [facility] Start: 2004 Adult BMI Screening Adult BMI Screen ing [facility] Start: 2004 Hepatitis C screening Hepatitis C An tibody [facility] Start: 2001 HIV screening HIV Test [facility] Start: 02-21-1999 Annual wellness visit Annual W ellness Visit (G0438) [facility] Start: 1998 Depression Screening Depression Scre ening [facility] Start: 1998 Tobacco Screening Tobacco Screening [facility] Start: 1986 Screening for malign ant neoplasm of breast [facility] End: 05-24-2024 Basic metabolic 2000 panel - Serum or Plasma Basic Metabolic Panel Lab Routine Hyponatremia 1 Occurrences starting 05/25/2023 until 05/24/2024 [facility] Work Phone: Comment on above: 1 Occurrences starti ng 05/25/2023 until 05/24/2024 End: 09-21-2025 Basic metabolic 2000 panel - Serum or Plasma BASIC METABOLIC PANEL Lab Routine Pre-op evaluation 1 Occurrences starting 09/21/2024 until 09/21/2025 [facility] Work Phone: Comment on above: 1 Occurrences starti ng 09/21/2024 until 09/21/2025 End: 05-24-2024 CBC panel - Blood by Automated count CBC without diff Lab Routine Hyponatremia 1 Occurrences starting 05/25/2023 until 05/24/2024 [facility] Comment on above: 1 Occurrences starti ng 05/25/2023 until 05/24/2024 CBC panel - Blood by Automated count COMPLETE BLOOD COUNT Lab Routine Pre-op evaluation Ordered: 09/21/2024 [facility] Comment on above: Ordered: 09/21/2024 Cefuroxime free [Mass/volume] in Serum or Plasma [facility] DENTAL RESTORATIONS DENTAL SILVIA RATIONS Routine scheduled Caries [facility] End: 05-24-2024 Magnesium [Mass/volume] in Serum or Plasma Magnesium Lab Routine Hyponatremia 1 Occurrences starting 05/25/2023 until 05/24/2024 [facility] Comment on above: 1 Occurrences starti ng 05/25/2023 until 05/24/2024 Patient Education Constipation, Adult (DC) Headache, Adult (DC) [facility] Work Phone: Patient referral [facility] Work Phone: End: 05-24-2024 Phosphate [Mass/volume] in Serum or Plasma Phosphorus Lab Routine Hyponatremia 1 Occurrences starting 05/25/2023 until 05/24/2024 [facility] Comment on above: 1 Occurrences starti ng 05/25/2023 until 05/24/2024 End: 05-24-2024 Protein creat ratio Protein creat ratio Lab Routine Hyponatremia 1 Occurrences starting 05/25/2023 until 05/24/2024 [facility] Comment on above: 1 Occurrences starti ng 05/25/2023 until 05/24/2024 Sodium [Moles/volume ] in Serum or Plasma Sodium Lab Routine Hyponatremia Ordered: 02/29/2024 [facility] Work Phone: Comment on above: Ordered: 02/29/2024 End: 07-20-2024 Sodium, urine, random Sodium, urine, random Lab Routine Hyponatremia 1 Occurrences starting 07/28/2023 until 07/20/2024 [facility] Comment on above: 1 Occurrences starti ng 07/28/2023 until 07/20/2024 End: 05-24-2024 Urinalysis Urinalysis Lab Routine Hyponatremia 1 Occurrences starting 05/25/2023 until 05/24/2024 [facility] Comment on above: 1 Occurrences starti ng 05/25/2023 until 05/24/2024 Urine Creatinine,Rdm Urine Creat inine,Rdm Lab Routine Hyponatremia Ordered: 07/28/2023 [facility] Comment on above: Ordered: 07/28/2023 End: 12-15-2023 Urine test visual color cmprsn meths URINE HCG-IN OFFICE Lab Routine One time for 1 Occurrences starting 12/15/2023 until 12/15/2023 [employer] Work Phone: Comment on above: One time for 1 Occur rences starting 12/15/2023 until 12/15/2023 Immunizations Immunization Date Immunization Notes Care Provider Fa [facility] 12-08-2023 influenza virus vaccine, unspecified formulation Ivory Hannah ETHYLBENZENE CRACKING SUPERVISOR-RETAIL STORE ASSISTANT Work Phone: [facility] 12-08-2022 influenza virus vaccine, unspecified formulation Case Melchor MD Work Phone: [facility] 12-17-2020 influenza, injectabl e, quadrivalent, preservative free [facility] 12-17-2020 influenza virus vaccine, unspecified formulation [facility] 03-25-2020 Pfizer (12+ yrs) SARS-COV-2 (COVID-19) vaccine, mRNA, spike protein, LNP, pres. free, 30 mcg/0.3mL dose (QST=451) [facility] 03-04-2020 Pfizer (12+ yrs) SARS-COV-2 (COVID-19) vaccine, mRNA, spike protein, LNP, pres. free, 30 mcg/0.3mL dose (GKH=624) [facility] 11-28-2019 influenza, injectabl e, quadrivalent, preservative free [facility] 11-12-2019 tetanus toxoid, redu naila diphtheria toxoid, and acellular pertussis vaccine, adsorbed [facility] 11-30-2017 influenza, injectabl e, quadrivalent, preservative free [facility] 12-15-2016 influenza, injectabl e, quadrivalent, contains preservative [facility] 12-12-2014 influenza, injectabl e, quadrivalent, preservative free [facility] 11-10-2010 influenza, seasonal, injectable [facility] 07-07-2006 meningococcal polysaccharide (groups A, C, Y and W-135) diphtheria toxoid conjugate vaccine (MCV4P) [facility] 11-29-2001 TD(adult) unspecifie d formulation [facility] 05-04-2001 hepatitis B vaccine, pediatric or pediatric/adolescent dosage [facility] 11-10-2000 hepatitis B vaccine, pediatric or pediatric/adolescent dosage [facility] 10-10-2000 hepatitis B vaccine, pediatric or pediatric/adolescent dosage [facility] 05-30-1998 measles, mumps and rubella virus vaccine [facility] 12-03-1991 TD(adult) unspecifie d formulation [facility] 12-03-1991 trivalent poliovirus vaccine, live, oral [facility] 09-06-1988 diphtheria, tetanus toxoids and pertussis vaccine [facility] 09-06-1988 trivalent poliovirus vaccine, live, oral [facility] 01-23-1988 haemophilus influenz ae type b vaccine, conjugate unspecified formulation [facility] 04-30-1987 measles, mumps and rubella virus vaccine [facility] 1986 diphtheria, tetanus toxoids and pertussis vaccine [facility] 1986 diphtheria, tetanus toxoids and pertussis vaccine [facility] 1986 trivalent poliovirus vaccine, live, oral [facility] 1986 diphtheria, tetanus toxoids and pertussis vaccine [facility] 1986 trivalent poliovirus vaccine, live, oral [facility] Payers Date Payer Category Payer Dental --Stand Alone DENTAL-MEDI CAID [id number] 2018 Medicaid [id number]. [id number] 2007 Medicare FFS MEDICARE [id number] 2006 Medicare [id number] [id number]. [id number] 1986 Unknown [id number] 2.16.840.1.203119.3.579.2.5 93 1986 Unknown [id number] 2.16.840.1.733180.3.579.2.5 93 1986 Unknown [id number] 2.16.840.1.681693.3.579.2.5 93 1986 Unknown [id number] 2.16.840.1.663932.3.579.2.7 27 1986 Unknown [id number] 2.16.840.1.962025.3.579.2.7 27 1986 Unknown [id number] 2.16.840.1.325574.3.579.2.1 286 1986 Unknown [id number] 2.16.840.1.539221.3.579.2.1 286 1986 Unknown [id number] 2.16.840.1.506533.3.579.2.1 286 1986 Unknown [id number] 2.16.840.1.613020.3.579.2.1 286 1986 Unknown [id number] 2.16.840.1.547840.3.579.2.1 286 1986 Unknown [id number] 2.16.840.1.438409.3.579.2.1 286 1986 Unknown [id number] 2.16.840.1.668670.3.579.2.1 259 1986 Unknown [id number] 2.16.840.1.691283.3.579.2.1 259 1986 Unknown [id number] 2.16.840.1.954529.3.579.2.1 259 1986 Unknown [id number] 2.16.840.1.559869.3.579.2.1 259 1986 Unknown [id number] 2.16.840.1.833737.3.579.2.1 259 1986 Unknown [id number] 2.16.840.1.308787.3.579.2.1 259 1986 Unknown [id number] 2.16.840.1.743123.3.579.2.1 259 1986 Unknown [id number] 2.16.840.1.465257.3.579.2.1 259 1986 Unknown [id number] 2.16.840.1.120334.3.579.2.1 259 1986 Unknown [id number] 2.16.840.1.526836.3.579.2.1 259 1986 Unknown [id number] 2.16.840.1.095462.3.579.2.1 259 1986 Unknown [id number] 2.16.840.1.171522.3.579.2.7 32 1986 Unknown [id number] 2.16.840.1.684644.3.579.2.7 32 1986 Unknown [id number] 2.16.840.1.664429.3.579.2.7 32 1986 Unknown [id number] 2.16.840.1.159603.3.579.2.7 32 1986 Unknown [id number] 2.16.840.1.394900.3.579.2.7 32 1986 Unknown [id number] 2.16.840.1.792119.3.579.2.7 32 1986 Unknown [id number] 2.16.840.1.808449.3.579.2.7 32 1959 Medicaid [id number] 1958 Medicare [id number] Medicare Medicare [id number] Social History Date Type Detail Facility Start: 06-13-2020 End: 05-04-2023 Tobacco smoking status COIS Never smoked tobacco [employer] Phone: Start: 06-13-2020 End: 05-04-2023 Tobacco use and exposure Smokeless tobacco non-user [facility] Start: 07-15-2020 End: 09-21-2024 Alcohol intake Lifetime non-drinker (finding) [facility] Start: 06-13-2020 History SDOH Alcohol Frequency 1 [facility] Start: 1986 Sex Assigned At Not on file [facility] Tobacco smoking status No Smoking Status Entered [facility] Start: 07-15-2020 End: 02-01-2024 Sex Assigned At Female [facility] Start: 1986 Sex Assigned At Female [facility] Start: 08-06-2023 Tobacco smoking status NHIS Unknown if ever smoked [facility] Start: 07-15-2020 End: 02-01-2024 History of Social function [facility] Start: 01-12-2012 End: 04-28-2023 Sex Female (finding) [facility] Start: 02-01-2024 End: 09-21-2024 Details of drug misuse behavior Has never misused drugs (situation) [facility] NEGATED: Highlighted row [facility] Goals Date Patient Goal Desired Activity /State Functional Status Date Assessment Result Facility 06-01-2023 Functional status Patient at [facility] Work Phone: Mental Status Date Assessment Result Facility 06-01-2023 Cognitive function Cognitive Sta tus Patient at [facility] Work Phone: Clinical Notes 06-10-2022 to 10-03-2024 Telephone Encounter - Megha Sanchez RN - 10/03/2024 10:08 AM EDTTelephone Encounter - Megha Sanchez RN - 10/03/2024 10:08 AM EDTTelephone Encounter - Megha Sanchez RN - 10/03/2024 10:08 AM EDT Note Date & Type Note Facility 10-03-[address] Chatman made aware that CBC and CMP from 05/03/24 received from [facility] and scanned into Epic. Addendum: Dr. Chatman states that he has reviewed labs and results are acceptable on 10/04 via secure chat. [facility] 10-03-[address] Chatman made aware that CBC and CMP from 05/03/24 received from [facility] and scanned into Epic. documented in this encounter [facility] 10-03-[address] Chatman made aware that CBC and CMP from 05/03/24 received from [facility] and scanned into Epic. Addendum: Dr. Chatman states that he has reviewed labs and results are acceptable on 10/04 via secure chat. documented in this encounter [facility] 10-03-2024 History of Present illness Narrative Images from [...] states it does hurt in shoes. She states it is feeling significantly better no pain. Allergies: Allergies Allergen Reactions Amoxicillin Unknown Aripiprazole [...] clean and dry. No ulcerations were noted. No Soft tissue mass noted at the dorsal aspect of the right 1st metatarsocuneiform joint freely mobile within the subcutaneous tissue bursal formation VASC: DP /PT were nonpalpable bilateral. Capillary refill time < 3 seconds Digits 1-5 bilateral NEURO: Dorena Ami 5.07 monofilament was intact B/L. Vibratory sensation was intact B/L Musculoskeletal: Muscle strength was +5 over 5 all intrinsic and extrinsic muscles tested. Exostosis noted at the 1st metatarsocuneiform joint mild tenderness noted with direct palpation ASSESSMENT 1. Exostosis of right foot 2. Other enthesopathy of right foot and ankle PLAN Patient is doing significantly better she is not having any pain follow up with me p.r.n. Bhanu Ramirez DPM FACFAS documented in this encounter [facility] [facility] 09-28-2024 Note Anesthesia consent o btained by Dr. Velez for 10/08 dental procedure and scanned into [employer]. [facility] 09-28-2024 Telephone encounter Note Anesthesia consent obtained by Dr. Velez for 10/08 dental procedure and scanned into [employer]. [facility] 09-28-2024 Miscellaneous Notes Anesthesia consent obtained by Dr. Velez for 10/08 dental procedure and scanned into [employer]. documented in this encounter [facility] 09-21-2024 Instructions Glenn Chatman MD - 09/21/2024 4:10 PM EDT RECOMMENDATIONS: Patient was instructed on the following: [...] 10 days before surgery Glenn Chatman MD documented in this encounter [facility] 09-21-2024 History of Present illness Narrative Blood pressure 138/85, pulse 85, temperature 97.8 F (36.6 C), temperature source Temporal, resp. rate 18, weight 182 lb 14.4 oz (83 kg). Medications/Allergies Reviewed CURRENT MEDICATIONS Current Outpatient Medications Medication [...] current facility-administered medications for this visit. 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 Disease status limits daily activity. EKG: Not indicated LABS: Reviewed ASSESSMENT and PLAN Patient is a 39 year old year old female Functional capacity: >4.0 METs Comorbid Conditions: Mod ID ADHD OCD Impulse Control Disorder PTSD Osteopenia Seizure Disorder Bipolar Disorder S/P CCK HTN GERD Seasonal Allergies Mood Disoder HLD Pineal Cyst Microadenoma Revised Cardiac Risk Index: None Patient is scheduled for a procedure that is low risk. RECOMMENDATIONS: Patient was instructed on the following: Nothing by mouth after midnight before surgery except following meds with sip of water on AM of surgery: Atomoxetine, Aviane, Carbamazepine, Clonidine, Bentyl, Guanfacine, Lamictal, Metoprolol, Omeprazole and Invega Stop aspirin 7 days before surgery Stop NSAID 5 days before surgery Stop Vitamin E 10 days prior to surgery Stop alternative/herbal medication 10 days before surgery Recommendations to surgical team: None Patient is medically optimized for surgery pending : at baseline Glenn Chatman MD [phone] [1] Allergies Allergen Reactions Abilify Amoxicillin Depakote [Valproic Acid] Per OSH H+P 08/2018 Food Peterson Slaw Metyrosine Moban [Molindone] Nubain [Nalbuphine] Sympathomimetics Vicks 44 Cough Relief [Dextromethorphan Hbr] [2] Past Medical History: Diagnosis Date Attention deficit hyperactivity disorder (ADHD) 05/25/2012 Attention deficit disorder with hyperactivity Caries 09/05/2018 Added automatically from request for surgery [id number] Constipation Per OSH H+P 08/2018 Dental decay 08/26/2016 Added automatically from request for surgery [id number] Developmental delay Per OSH H+P 08/2018 Hormone imbalance Per OSH H+P 08/2018 HTN (hypertension) Per OSH H+P 08/2018 Hypercholesteremia Per OSH H+P 08/2018 Moderate intellectual disabilities 05/25/2012 Mood disorder (HCC) Per OSH H+P 08/2018 Pituitary microadenoma (HCC) Per OSH H+P 08/2018 Seizures (HCC) Per OSH H+P 08/2018 [3] Past Surgical History: Procedure Laterality Date CHOLECYSTECTOMY 2009 Per OSH H+P 08/2018 DENTAL RESTORATIONS Bilateral 12/28/2013 Procedure: DENTAL RESTORATIONS; Surgeon: Lynda Haque DDS; Location: [facility]; Service: Dental DENTAL RESTORATIONS N/A 09/03/2016 Procedure: DENTAL RESTORATIONS; Surgeon: Bhavin Valdovinos DDS; Location: [facility] Surgery [place]; Service: Dental DENTAL RESTORATIONS N/A 09/15/2018 Procedure: DENTAL RESTORATIONS; Surgeon: Og Mahoney DDS; Location: [facility] Surgery [place]; Service: Dental DENTAL RESTORATIONS Bilateral 07/14/2020 Procedure: DENTAL RESTORATIONS; Surgeon: Og Mahoney DDS; Location: [facility] Surgery [place]; Service: Dental [4] Social History Tobacco Use Smoking Status Never Smokeless Tobacco Never documented in this encounter [facility] 09-04-2024 History of Present illness Narrative Migdalia Connelly is a 39 y.o.female. No LMP recorded [...] (CMS-HCC) PTSD (post-traumatic stress disorder) Seizure disorder ([facility]) SURGICAL HX Past Surgical History: Procedure Laterality [...] mammogram and ultrasound results with patient and veterinarian laboratory animal care. Discussed how the patient has been feeling since she finished her antibiotics. Discussed the patients skin picking could be the source of infection. Advised to keep appointment with breast clinic. Recommend yearly mammograms. [facility] CLEMENTE 09/04/24 1046 LINN RED MD documented in this encounter [facility] 08-21-2024 History of Present illness Narrative Images [...] deficit disorder with hyperactivity 05/25/2012 Bipolar disorder ([facility]) 05/04/2023 Essential hypertension 05/04/2023 Seizure disorder ([facility]) 05/04/2023 Pure hypercholesterolemia 05/04/2023 Anger reaction 07/14/2023 Convulsion ([facility]) 07/14/2023 Alteration of consciousness 07/14/2023 Development delay 07/14/2023 Resolved Ambulatory Problems Diagnosis Date Noted No Resolved Ambulatory Problems Past Medical History: Diagnosis Date ADHD (attention deficit hyperactivity disorder) Astigmatism Convulsions ([facility]) Developmental delay GERD (gastroesophageal reflux disease) Hypercholesterolemia Hyperopia Hypertension Impulse control disorder Intellectual disability Mental disorder Mood disorder OCD (obsessive compulsive disorder) Osteopenia PTSD (post-traumatic stress disorder) Seizures ([facility]) Medications: Current Outpatient Medications: acetaminophen [...] < 3 seconds Digits 1-5 bilateral NEURO: Dorena Ami 5.07 monofilament was intact B/L. Vibratory [...] i as well. Follow up 1 month Bhanu Ramirez DPM FACBART documented in this encounter [facility] 08-09-2024 History of Present illness Narrative Images from the original note were not included. 08/09/2024 DIAGNOSIS: Migdalia Connelly is a 39 y.o. female who presents to the [facility] for evaluation and recommendations regarding a right breast mass. HISTORY OF PRESENT ILLNESS: Migdalia Connelly is a 39 y.o. female who presents with right breast changes. History obtained from chart reviewed, additional information provided primarily by the facility staff present with her but patient is able to offer some input as well. Patient was seen by SCOREBOARD OPERATOR on 08/07/24 with complaints of right breast and nipple tenderness/inversion that started on 08/02. This progressed t/o the course of several days to include swelling, firmness, redness and warmth. Clindamycin was initiated on 08/05. BDM, U/S, and breast MRI ordered. She is scheduled for BDM and U/S on 08/28 at [place]. Patient does note some improvement since starting Clindamycin. Product Safety Coordinator feels redness is improved compared to earlier [...] medications, and allergies have been reviewed in [facility]. PAST MEDICAL HISTORY: Past Medical History: Diagnosis Date Astigmatism Attention deficit disorder with hyperactivity Bipolar 1 disorder (CMS-HCC) Constipation Dissociative disorder GERD (gastroesophageal reflux disease) History of pineal cyst Hormone imbalance Hypercholesterolemia Hyperopia Hypertension Impulse control disorder Moderate intellectual disability Mood disorder OCD (obsessive compulsive disorder) Osteopenia Patellar bursitis, right Pituitary microadenoma ([facility]) PTSD (post-traumatic stress disorder) Seizure disorder ([facility]) PAST SURGICAL HISTORY: Past Surgical History: Procedure [...] N63.10 2. Breast skin changes R23.4 Migdalia Connelly is a 39 y.o. female with abrupt onset of right breast pain with associated redness and firmness. PLAN OF CARE: Discussed and reviewed clinical breast exam findings with patient and her care provider present. Spoke with staff at [facility] - patient will be worked in today for BD and U/S. Will await results to determine next steps, as appropriate. Continue antibiotic course as advised. Follow up pending results of testing. The patient understands and agrees with the plan as discussed. All questions answered. Eve Haque CNP [facility] Breast Surgery Total time spent was 39 minutes: Preparing to see the patient (e.g., review of tests) Obtaining and/or reviewing separately obtained history Performing a medically appropriate examination and/or evaluation Counseling and educating the patient/family/caregiver Ordering medications, tests, or procedures Referring and communicating with other health director of health care marketing (not separately reported) Documenting clinical information in the electronic or other health record Independently interpreting results (not separately reported) and communicating results to the patient/family/caregiver YESIKA Armstrong 08/09/24 1711 documented in this encounter [facility] 08-07-2024 History of Present illness Narrative Migdalia Connelly is a 39 y.o.female. No LMP recorded.. [...] mammogram. Discussed follow up care with patients veterinarian laboratory animal care who believes she will tolerate a mammogram, she states if CT is needed she may need some sedation. Mammogram, ultrasound, MRI, and breast specialist requisition provided. FU [id number] MD DAMON MILLER, [facility] Aundrea Banks 08/07/24 9917 Aundrea Banks 08/07/24 8171 documented in this encounter [facility] 08-07-2024 History of Present illness Narrative Images from the original note were not included. patient: Migdaila Connelly : 1985 PCP: Lio Muñoz MD [...] (HCC) 05/04/2023 Essential hypertension 05/04/2023 Seizure disorder ([facility]) 05/04/2023 Pure hypercholesterolemia 05/04/2023 Anger reaction 07/14/2023 Convulsion ([facility]) 07/14/2023 Alteration of consciousness 07/14/2023 Development delay 07/14/2023 Resolved Ambulatory Problems Diagnosis Date Noted No Resolved Ambulatory Problems Past Medical History: Diagnosis Date ADHD (attention deficit hyperactivity disorder) Astigmatism Convulsions ([facility]) Developmental delay GERD (gastroesophageal reflux disease) Hypercholesterolemia Hyperopia Hypertension Impulse control disorder Intellectual disability Mental disorder Mood disorder OCD (obsessive compulsive disorder) Osteopenia PTSD (post-traumatic stress disorder) Seizures ([facility]) Medications: Current Outpatient Medications: acetaminophen [...] subungual debris. They were painful to palpation 28399 on the right 51733 on the left. VASC: DP /PT were nonpalpable bilateral. Capillary refill time < 3 seconds Digits 1-5 bilateral NEURO: Dorena Ami 5.07 monofilament was intact B/L. Vibratory [...] modifications she will be going to an energy and conservation technician to have new shoes purchase follow up 2 weeks for reexamine. DAY Laura documented in this encounter [facility] 07-18-2024 History of Present illness Narrative Images from the original note were not included. Patient: Migdalia Connelly : 1985 PCP: Lio Muñoz [...] Date Noted Attention deficit disorder with hyperactivity (CMS/HCC) 05/25/2012 Bipolar disorder 05/04/2023 Essential hypertension (CMS/HCC) 05/04/2023 Seizure disorder (CMS/HCC) 05/04/2023 Pure hypercholesterolemia (CMS/HCC) 05/04/2023 Anger reaction 07/14/2023 Convulsion (CMS/HCC) 07/14/2023 Alteration of consciousness 07/14/2023 Development delay 07/14/2023 Resolved Ambulatory Problems Diagnosis Date Noted No Resolved Ambulatory Problems Past Medical History: Diagnosis Date ADHD (attention deficit hyperactivity disorder) ([facility]) Astigmatism Convulsions ([facility]) Developmental delay GERD (gastroesophageal reflux disease) Hypercholesterolemia ([facility]) Hyperopia Hypertension ([facility]) Impulse control disorder ([facility]) Intellectual disability ([facility]) Mental disorder Mood disorder ([facility]) OCD (obsessive compulsive disorder) ([facility]) Osteopenia PTSD (post-traumatic stress disorder) ([facility]) Seizures ([facility]) Medications: Current Outpatient Medications: acetaminophen (Tylenol) 325 [...] p.r.n. DAY Laura documented in this encounter [facility] 2024 History of Present illness Narrative Patient: Migdalia Connelly : 1985 PCP: Lio Muñoz [...] Date Noted Attention deficit disorder with hyperactivity ([facility]) 05/25/2012 Bipolar disorder 05/04/2023 Essential hypertension (CMS/[facility]) 05/04/2023 Seizure disorder ([facility]) 05/04/2023 Pure hypercholesterolemia (CMS/HCC) 05/04/2023 Anger reaction 07/14/2023 Convulsion ([facility]) 07/14/2023 Alteration of consciousness 07/14/2023 Development delay 07/14/2023 Resolved Ambulatory Problems Diagnosis Date Noted No Resolved Ambulatory Problems Past Medical History: Diagnosis Date ADHD (attention deficit hyperactivity disorder) (CMS/[facility]) Astigmatism Convulsions ([facility]) Developmental delay GERD (gastroesophageal reflux disease) Hypercholesterolemia ([facility]/H[facility]) Hyperopia Hypertension ([facility]) Impulse control disorder ([facility]) Intellectual disability ([facility]) Mental disorder Mood disorder ([facility]) OCD (obsessive compulsive disorder) ([facility]) Osteopenia PTSD (post-traumatic stress disorder) ([facility]) Seizures ([facility]) Medications: Current Outpatient Medications: acetaminophen [...] < 3 seconds Digits 1-5 bilateral NEURO: Dorena Ami 5.07 monofilament was intact B/L. Vibratory [...] daily. DAY Laura documented in this encounter [facility] 06-13-2024 History of Present illness Narrative Subjective Migdalia Connelly is a pleasant 38 y.o. female who [...] nursing note reviewed. Exam conducted with a mathematical sciences professor present. Constitutional: General: She is not in [...] breast exam and / or PRN. DAMON MIKE, [facility] - Zaid Jama, ETHYLBENZENE CRACKING SUPERVISOR-CNM 06/13/24 2:12 PM TARIK Leblanc 06/13/24 1415 documented in this encounter [facility] 06-04-2024 History of Present illness Narrative Images from the original note were not included. Chief Complaint Patient presents with Seizures Subjective Migdalia Connelly, 38 y.o., female SEIZURE -resident at [place], here today with house aide -labs to [...] consciousness Anger reaction Astigmatism Bipolar disorder Convulsions (CMS/HCC) Developmental delay GERD (gastroesophageal reflux disease) Hypercholesterolemia (CMS/HCC) Hyperopia Hypertension (CMS/HCC) Impulse control disorder (CMS/HCC) Intellectual disability (CMS/HCC) Mental disorder Mental retardation, mild Mood disorder (CMS/HCC) OCD (obsessive compulsive disorder) (CMS/HCC) Osteopenia PTSD (post-traumatic stress disorder) (CMS/HCC) Seizures ([facility]) No past surgical history on file. No [...] , wrist extensors , wrist flexor , dispatcher chief oil strength 5/5. LUE Strength deltoid , biceps , triceps , wrist extensors , wrist flexor , dispatcher chief oil strength 5/5. RLE Strength illopsoas, quadriceps, tibialis [...] LFTs (WNL) Routine EEG at [facility] in March 2018: Normal MRI of the brain w and w/o contrast at [facility] on 10/18/13 and 06/30/16: Stable right [...] and return instructions documented in this encounter [facility] 02-29-2024 History of Present illness Narrative Images [...] Diagnosis Date ADHD (attention deficit hyperactivity disorder) ([facility]) Alteration of consciousness Anger reaction Astigmatism Bipolar disorder ([facility]) Convulsions ([facility]) Developmental delay GERD (gastroesophageal reflux disease) Hypercholesterolemia ([facility]) Hyperopia Hypertension ([facility]) Impulse control disorder ([facility]) Intellectual disability ([facility]) Mental disorder Mental retardation, mild Mood disorder ([facility]) OCD (obsessive compulsive disorder) ([facility]) Osteopenia PTSD (post-traumatic stress disorder) ([facility]) Seizures ([facility]) History reviewed. No pertinent surgical [...] , wrist extensors , wrist flexor , dispatcher chief oil strength 5/5. LUE Strength deltoid , biceps , triceps , wrist extensors , wrist flexor , dispatcher chief oil strength 5/5. RLE Strength illopsoas, quadriceps, tibialis [...] LLE knee reflex 1+. Negative Brian's Coordination: Fmilps-hw-lfzy testing is normal Gait: Normal Review and [...] LFTs (WNL) Routine EEG at [facility] in March 2018: Normal MRI of the brain w and w/o contrast at [facility] on 10/18/13 and 06/30/16: Stable right [...] and return instructions documented in this encounter [facility] 02-28-2024 History of Present illness Narrative Images [...] Diagnosis Date ADHD (attention deficit hyperactivity disorder) ([facility]) Alteration of consciousness Anger reaction Astigmatism Bipolar disorder (CMS/HCC) Convulsions (CMS/HCC) Developmental delay GERD (gastroesophageal reflux disease) Hypercholesterolemia (CMS/HCC) Hyperopia Hypertension (CMS/HCC) Impulse control disorder (CMS/HCC) Intellectual disability (CMS/HCC) Mental disorder Mental retardation, mild Mood disorder (CMS/HCC) OCD (obsessive compulsive disorder) (CMS/HCC) Osteopenia PTSD (post-traumatic stress disorder) (CMS/HCC) Seizures ([facility]) Medications: Current Outpatient Medications: acetaminophen [...] subungual debris. They were painful to palpation 70207 on the right 21726 on the left. VASC: DP /PT were nonpalpable bilateral. Capillary refill time < 3 seconds Digits 1-5 bilateral NEURO: Dorena Ami 5.07 monofilament was intact B/L. Vibratory [...] 10. DAY Laura documented in this encounter [facility] 02-23-2024 Note Patient recovered by anesthesia in procedure room. [facility] 02-23-2024 History of Present illness Narrative ----- February at 10:34:06 AM ----- ----- Provider: Shelby Frias DMD -- Clinic: [place] ----- PT. WAS SEEN IN [place] UNDER TWILIGHT SEDATION WITH ANESTHESIA TEAM. Anesthesia diagnosis: Unspecified mental disorder- F09 and Other intellectual disabilities- F78 Dental diagnosis: Dental Caries, unspecified - K02.9 COMPOSITE CONGREGATIONAL Patient is scheduled for Druze on tooth #23 MFL and 24 DFL. Reviewed Medical History. Patient is ready for treatment. Topical Benzocaine gel applied at the injection site for 2 minutes. Administered 2 carpules of Lidocaine, 2% with Epinephrine 1:100,000,. Cotton roll isolation achieved. Decay/existing mormonism removed, cavity prepared. Selectively etched enamel with 37% phosphoric acid, rinsed, and blot dried. OptiBond bowles applied and light-cured. Condensed packable composite shade A2 in light cured increments using Mylar strip and wedge. Finished with finishing burs, checked occlusion, verified proximal contacts and mormonism was polished. Rinsed and suctioned intraorally, advised [...] ----- Provider: Shelby Frias DMD -- Clinic: [place] ----- documented in this encounter [facility] 02-14-2024 Telephone encounter Note Anesthesia consent obtained by Dr. Koch and scanned into [employer]. [facility] 02-14-2024 Miscellaneous Notes Anesthesia consent obtained by Dr. Koch and scanned into [employer]. documented in this encounter [facility] 02-01-2024 Instructions Penny Denton RN - 02/01/2024 9:44 AM EST You are you have surgery with Dr. Frias on 02/22/2023 at [facility] which is located at [address] [place] [address] PATIENT MEDICATION INSTRUCTIONS: On the morning of [...] unless otherwise contacted. [facility] one business day prior to surgery for [...] your Preparing for Your Surgery/Procedure booklet or [email or web address] if you have questions. Contact the Pre-Admission Testing department at [phone] or your surgeon's office with any questions [...] stay with you after surgery. Please call [email or web address] if you need transportation assistance or have concerns about going home [phone]. PEDIATRIC or ADOLESCENTS: Parents or a legal [...] signs of dehydration. Thank you for choosing [facility]; it is our pleasure to care for you. documented in this encounter [facility] 02-01-2024 Evaluation note Images from the original note were not included. Telephone History Migdalia Cueva Stephie, [id number] 02/01/2024 Patient was identified by name and date of with Nurse Latasha from [place]. Needs: Physical, Neck Circumference, Glasses, BHCG, Intellectual Disability, Anxiety and Seizure Precautions on DOS. If the patient becomes ill prior to procedure or surgery, they are to call their provider or surgeon's office directly. 02/01/2024 - communicated with patient will need urine test the morning of the procedure 02/01/2024-Spoke with Dr. 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 No Snoring No [...] 09/05/2018 Added automatically from request for surgery [id number] Constipation Per OSH H+P 08/2018 Dental decay 08/26/2016 Added automatically from request for surgery [id number] Developmental delay Per OSH H+P 08/2018 Hormone [...] Decay, Dental Caries, Peridontitis, Endo (+) obesity damage inside adjuster (+) irregular periods Neuro/Psych (+) bipolar disorder, [...] DENTAL RESTORATIONS; Surgeon: Bhavin Valdovinos DDS; Location: [facility] Surgery [place]; Service: Dental DENTAL RESTORATIONS N/A 09/15/2018 Procedure: DENTAL RESTORATIONS; Surgeon: Og Mahoney DDS; Location: [facility]; Service: Dental DENTAL RESTORATIONS Bilateral 07/14/2020 Procedure: DENTAL RESTORATIONS; Surgeon: Og Mahoney DDS; Location: [facility] Surgery [place]; Service: Dental SOCIAL HISTORY: Social History Socioeconomic History Marital status: Single Tobacco Use Smoking status: Never Smokeless tobacco: Never Substance and Sexual Activity Alcohol use: Never Drug use: Never PAIN ASSESSMENT: Severity: 0 Location: N/A [facility] [place] 10/24/2023 LABS TESTS REVIEWED: CXRay: No Chest [...] unless otherwise contacted. Expect a call from [employer] one business day prior to surgery for [...] your Preparing for Your Surgery/Procedure booklet or [employer]/surgery if you have questions. Contact the Pre-Admission Testing department at [phone] or your surgeon's office with any questions [...] stay with you after surgery. Please call [email or web address] if you need transportation assistance or have concerns about going home [phone]. PEDIATRIC or ADOLESCENTS: Parents or a legal [...] signs of dehydration. Thank you for choosing [facility]; it is our pleasure to care for you. Penny Denton RN Time Spent Performing this Telephone History: 30 [facility] 02-01-2024 Miscellaneous Notes Images from the original note were not included. Telephone History Migdalia Connelly, [id number] 02/01/2024 Patient was identified by name and date of with Nurse Anaya from [place]. Needs: Physical, Neck Circumference, Glasses, BHCG, Intellectual Disability, Anxiety and Seizure Precautions on DOS. If the patient becomes ill prior to procedure or surgery, they are to call their provider or surgeon's office directly. 02/01/2024 - communicated with patient will need urine test the morning of the procedure 02/01/2024-Spoke with Dr. Florez (Anesthesia) in regards to anxiety with last procedure - indicates that [place] can give her 5 mg Valium at least 1 hour prior to arriving (Nurse at [place] - Latasha- aware) 02/01/2024-[place] to provide most recent labs (fax number given) 02/14/2024-LG consent obtained - see media theorist and author of 38 year old 190.6 lbs 5' 5 [...] 09/05/2018 Added automatically from request for surgery [id number] Constipation Per OSH H+P 08/2018 Dental decay 08/26/2016 Added automatically from request for surgery [id number] Developmental delay Per OSH H+P 08/2018 Hormone [...] Decay, Dental Caries, Peridontitis, Endo (+) obesity damage inside adjuster (+) irregular periods Neuro/Psych (+) bipolar disorder, [...] DENTAL RESTORATIONS; Surgeon: Bhavin Valdovinos DDS; Location: [facility] [place]; Service: Dental DENTAL RESTORATIONS N/A 09/15/2018 Procedure: DENTAL RESTORATIONS; Surgeon: Og Mahoney DDS; Location: [facility]; Service: Dental DENTAL RESTORATIONS Bilateral 07/14/2020 Procedure: DENTAL RESTORATIONS; Surgeon: Og Mahoney DDS; Location: [facility] [place]; Service: Dental SOCIAL HISTORY: Social History Socioeconomic History Marital status: Single Tobacco Use Smoking status: Never Smokeless tobacco: Never Substance and Sexual Activity Alcohol use: Never Drug use: Never PAIN ASSESSMENT: Severity: 0 Location: N/A LABORATORY DATA: [facility] [place] 10/24/2023 LABS TESTS REVIEWED: CXRay: No Chest [...] unless otherwise contacted. Expect a call from [employer] one business day prior to surgery for [...] your Preparing for Your Surgery/Procedure booklet or [employer]/surgery if you have questions. Contact the Pre-Admission Testing department at [phone] or your surgeon's office with any questions [...] a car, cab, shared ride service, or [facility]. You will not be allowed to drive yourself home or travel home alone. Your surgery may be cancelled if you do not have a ride. A responsible adult must stay with you after surgery. Please call [email or web address] if you need transportation assistance or have concerns about going home [phone]. PEDIATRIC or ADOLESCENTS: Parents or a legal [...] signs of dehydration. Thank you for choosing [facility]; it is our pleasure to care for you. Penny Denton RN Time Spent Performing this Telephone History: 30 documented in this encounter [facility] 12-15-2023 Note Formatting of this n ote is different from the original. Addendum created 12/15/231133 by Orquidea Florez MD Clinical Note Signed [facility] 12-15-2023 Miscellaneous Notes Addendum created 12/15/231133 by Orquidea Florez MD Clinical Note Signed Addendum created 12/15/23 1026 by Domingo Carrion APRN-BRADDER Flowsheet accepted, LDA properties accepted Patient recovered by BRADDER in room. Patient is awake, comfortable, and [...] DENTAL RESTORATIONS; Surgeon: Bhavin Valdovinos DDS; Location: [facility] [place]; Service: Dental CHOLECYSTECTOMY (2009) Per OSH H+P 08/2018 DENTAL RESTORATIONS (09/15/2018) Procedure: DENTAL RESTORATIONS; Surgeon: Og Mahoney DDS; Location: [facility] [place]; Service: Dental DENTAL RESTORATIONS (07/14/2020) Procedure: DENTAL RESTORATIONS; Surgeon: Og Mahoney DDS; Location: [facility] [place]; Service: Dental Allergies: Abilify, Amoxicillin, Depakote [valproic acid], Food, Metyrosine, Moban [molindone], Nubain [nalbuphine], Sympathomimetics, and Vicks 44 cough relief [dextromethorphan hbr] Basic Operating Room Facts: * No surgeons listed * Anesthesiologist: Orquidea Florez MD BRADDER: Domingo Carrion APRN-CRNA DENTAL VISIT Intraoperative Events: [...] received. MAXIMO Soliz documented in this encounter [facility] 12-15-2023 Procedure anesthe fritz Narrative Procedure Name [...] Domingo Carrion APRN-CRNA documented in this encounter [id number] Note* Addendum Note - Domingo Carrion APRN-CRNA - 12/15/2023 10:26 AM EDT Addendum created 12/15/23 1026 by Domingo Carrion APRN-CRNA Flowsheet accepted, LDA properties accepted [facility] Work Phone: 1(293) 127-299210-24-2024 Note* Addendum Note - Domingo Carrion APRN- CRNA - 12/15/2023 10:26 AM EDT Addendum created 12/15/23 1026 by Domingo Carrion APRN-CRNA Flowsheet accepted, LDA properties accepted [employer] Work Phone: 1(970) 247-641210-24-2024 Miscellaneous Notes* Addendum Note - Domingo Carrion APRN-CRNA - 12/15/2023 10:26 AM EDT Addendum created 12/15/23 1026 by Domingo Carrion APRN-CRNA Flowsheet accepted, LDA properties accepted * Anesthesia Transfer Of Care - Domingo Carrion APRN-CRNA - 12/15/2023 9:24 AM EDT Patient recovered by BRADDER in room. Patient is awake, comfortable, and [...] DENTAL RESTORATIONS; Surgeon: Bhavin Valdovinos DDS; Location: [facility] [place]; Service: Dental CHOLECYSTECTOMY (2009) Per OSH H+P 08/2018 DENTAL RESTORATIONS (09/15/2018) Procedure: DENTAL RESTORATIONS; Surgeon: Og Mahoney DDS; Location: [facility] [place]; Service: Dental DENTAL RESTORATIONS (07/14/2020) Procedure: DENTAL RESTORATIONS; Surgeon: Og Mahoney DDS; Location: [facility] [place]; Service: Dental Allergies: Abilify, Amoxicillin, Depakote [valproic acid], Food, Metyrosine, Moban [molindone], Nubain [nalbuphine], Sympathomimetics, and Vicks 44 cough relief [dextromethorphan hbr] Basic Operating Room Facts: * No surgeons listed * Anesthesiologist: Orquidea Florez MD BRADDER: Domingo Carrion APRN-CRNA DENTAL VISIT Intraoperative Events: [...] was received. MAXIMO Soliz documented in this [id number] Anesthesiology Postoperative evaluation and management note* Anesthesia [...] ANESTHESIA NOTABLE EVENTS: No notable events documented. [facility] Work Phone: 1(186) 421-248410-24-2024 Surgical operation note* Anesthesia Postprocedure Evaluation - [...] apnea Dental ROS (+) teeth problems Endo damage inside adjuster (-) not (negative in clinic today) Neuro/Psych [...] were discussed with the patient and/or legal customer development representative. The risks, benefitsand alternatives were reviewed. Questions regarding anesthesia were answered. Patient and/or legal customer development representative knows such anesthetics and procedures may be performed by Resident physicians, Certified Anesthesiologist Assistants, or Certified Nurse Anesthetists under the supervision of a physician. The patient /or the patient s legal customer development representative agree with the plan for anesthesia. [employer] documented in this [id number] Surgical operation note* Anesthesia Postprocedure Evaluation - [...] apnea Dental ROS (+) teeth problems Endo damage inside adjuster (-) not (negative in clinic today) Neuro/Psych [...] were discussed with the patient and/or legal customer development representative. The risks, benefitsand alternatives were reviewed. Questions regarding anesthesia were answered. Patient and/or legal customer development representative knows such anesthetics and procedures may be performed by Resident physicians, Certified Anesthesiologist Assistants, or Certified Nurse Anesthetists under the supervision of a physician. The patient /or the patient s legal customer development representative agree with the plan for anesthesia. [employer] documented in this [id number] Surgical operation note* Anesthesia Postprocedure Evaluation - [...] apnea Dental ROS (+) teeth problems Endo damage inside adjuster (-) not (negative in clinic today) Neuro/Psych [...] were discussed with the patient and/or legal customer development representative. The risks, benefitsand alternatives were reviewed. Questions regarding anesthesia were answered. Patient and/or legal customer development representative knows such anesthetics and procedures may be performed by Resident physicians, Certified Anesthesiologist Assistants, or Certified Nurse Anesthetists under the supervision of a physician. The patient /or the patient s legal customer development representative agree with the plan for anesthesia. [employer] documented in this [id number] Anesthesiology Postoperative evaluation and management note* Anesthesia Transfer Of Care - Domingo Carrion APRN- RAVINDRA - 12/15/2023 9:24 AM EDT Patient recovered by BRADDER in room. Patient is awake, comfortable, and [...] DENTAL RESTORATIONS; Surgeon: Bhavin Valdovinos DDS; Location: [facility] [place]; Service: Dental CHOLECYSTECTOMY (2009) Per OSH H+P 08/2018 DENTAL RESTORATIONS (09/15/2018) Procedure: DENTAL RESTORATIONS; Surgeon: Og Mahoney DDS; Location: [facility] [place]; Service: Dental DENTAL RESTORATIONS (07/14/2020) Procedure: DENTAL RESTORATIONS; Surgeon: Og Mahoney DDS; Location: [facility] [place]; Service: Dental Allergies: Abilify, Amoxicillin, Depakote [valproic acid], Food, Metyrosine, Moban [molindone], Nubain [nalbuphine], Sympathomimetics, and Vicks 44 cough relief [dextromethorphan hbr] Basic Operating Room Facts: * No surgeons listed * Anesthesiologist: Orquidea Florez MD BRADDER: Domingo Carrion APRN-BRADDER DENTAL VISIT Intraoperative Events: No acute event [...] of the report was received. MAXIMO Soliz [employer] Work Phone: 1(189) 753-134510-24-2024 Miscellaneous Notes* Anesthesia Transfer Of Care - Domingo Carrion APRN-CRNA - 12/15/2023 9:24 AM EDT Patient recovered by BRADDER in room. Patient is awake, comfortable, and [...] DENTAL RESTORATIONS; Surgeon: Bhavin Valdovinos DDS; Location: [facility] [place]; Service: Dental CHOLECYSTECTOMY (2009) Per OSH H+P 08/2018 DENTAL RESTORATIONS (09/15/2018) Procedure: DENTAL RESTORATIONS; Surgeon: Og Mahoney DDS; Location: [facility] [place]; Service: Dental DENTAL RESTORATIONS (07/14/2020) Procedure: DENTAL RESTORATIONS; Surgeon: Og Mahoney DDS; Location: [facility] [place]; Service: Dental Allergies: Abilify, Amoxicillin, Depakote [valproic acid], Food, Metyrosine, Moban [molindone], Nubain [nalbuphine], Sympathomimetics, and Vicks 44 cough relief [dextromethorphan hbr] Basic Operating Room Facts: * No surgeons listed * Anesthesiologist: Orquidea Florez MD BRADDER: Domingo Carrion APRN-CRNA DENTAL VISIT Intraoperative Events: [...] was received. MAXIMO Soliz documented in this [id number] History of Present illness Narrative* Marleni Alejandro DDS - 12/15/2023 8:53 AM EDT ----- , December 15, 2023 at 9:52:24 AM ----- ----- Provider: Orlando Alejandro, Resident -- Clinic: [facility] ----- PT WAS SEEN IN [facility] UNDER TWILIGHT SEDATION WITH ANESTHESIA TEAM [...] status of dentition on the charting. COMPOSITE CONGREGATIONAL Patient is scheduled for Druze on tooth #26 surface B5. Topical Benzocaine gel applied at theinjection site for 2 minutes. Administered 0.5 carpules of Lidocaine, 2% with Epinephrine 1:100,000,. Isolation achieved. Decay/existing mormonism removed, cavity prepared. Selectively etched enamel with 37% phosphoric acid, rinsed, and blot dried. OptiBond bowles applied and light-cured. Condensed packable composite shade A2 in light cured increments. Finished with finishing burs, checked occlusion, verified proximal contacts and mormonism was polished. SIMPLE EXTRACTION tooth # 7 [...] medications Next visit: Restorative under IV sedation [facility] ----- Signed on November at 10:18:01 AM ----- ----- Provider: Shelby Frias DMD -- Clinic: [place] [place] ----- documented in this [id number] Progress note* Blood Attestation - Orquidea Florez MD - 12/15/2023 8:26 AM EDT Blood Attestation: ATTESTATION OF INFORMED CONSENT FOR BLOOD: The transfusion of blood and/or blood components were discussed with the patient and/or legal customer development representative. The risks, benefits and alternatives were reviewed. Questions regarding blood transfusions were answered. The patient /or the patient s legal customer development representative agree with the plan for transfusion of blood and/or blood components. [facility] Work Phone: 1(172) 951-109510-24-2024 Miscellaneous Notes* Blood Attestation - Orquidea Florez MD - 12/15/2023 8:26 AM EDT Blood Attestation: ATTESTATION OF INFORMED CONSENT FOR BLOOD: The transfusion of blood and/or blood components were discussed with the patient and/or legal customer development representative. The risks, benefits and alternatives were reviewed. Questions regarding blood transfusions were answered. The patient /or the patient s legal customer development representative agree with the plan for transfusion of blood and/or blood components. documented in this [id number] Anesthesiology Preoperative evaluation and management note* Anesthesia Preprocedure Evaluation - Orquidea Florez MD - 12/15/2023 7:54 AM EDT ASA: 2 No history of anesthetic complications PSE status: Had PSE NPO status: >8 hours Past Medical History and Review of Systems (Full ROS completed in PSE) Pulmonary (-) sleep apnea Dental ROS (+) teeth problems Endo damage inside adjuster (-) not (negative in clinic today) Neuro/Psych [...] were discussed with the patient and/or legal customer development representative. The risks, benefitsand alternatives were reviewed. Questions regarding anesthesia were answered. Patient and/or legal customer development representative knows such anesthetics and procedures may be performed by Resident physicians, Certified Anesthesiologist Assistants, or Certified Nurse Anesthetists under the supervision of a physician. The patient /or the patient s legal customer development representative agree with the plan for anesthesia. [facility] [id number] History of Present illness Narrative* YESIKA Mac [...] for any new/changing lesions documented in this encounterMissouri Baptist Medical [id number] Telephone encounter Note* Telephone Encounter - Idania Campbell RN - 11/23/2023 2:56 PM EDT Anesthesia consent obtained and scanned into [facility]. Scheduled for surgery 12/15/2023. [id number] Miscellaneous Notes* Telephone Encounter - Idania Campbell RN - 11/23/2023 2:56 PM EDT Anesthesia consent obtained and scanned into [facility]. Scheduled for surgery 12/15/2023. documented in this [id number] NoteDo not eat or drink anything after [...] the Pre Admission Testing (PAT) department at [phone], or your surgeon's office, with any additional questions.[facility] HospitalAsterion [id number] History of Present illness Narrative* Bhanu Ramirez DPM FACFAS - 11/09/2023 9:00 AM EDT Images from the original note were not included. patient: Migdaila Connelly : 1985 PCP: Lio Muñoz MD [...] Diagnosis Date ADHD (attention deficit hyperactivity disorder) ([facility]/HCC) Alteration of consciousness Anger reaction Astigmatism Bipolar disorder (CMS/HCC) Convulsions (CMS/HCC) Developmental delay GERD (gastroesophageal reflux disease) Hypercholesterolemia (CMS/HCC) Hyperopia Hypertension (CMS/HCC) Impulse control disorder (CMS/HCC) Intellectual disability (CMS/HCC) Mental disorder Mental retardation, mild Mood disorder (CMS/HCC) OCD (obsessive compulsive disorder) (CMS/HCC) Osteopenia PTSD (post-traumatic stress disorder) ([facility]) Seizures ([facility]) Medications: Current Outpatient Medications: acetaminophen [...] subungual debris. They were painful to palpation 69712 on the right 50599 on the left. VASC: DP /PT were nonpalpable bilateral. Capillary refill time < 3 seconds Digits 1-5 bilateral NEURO: Dorena Ami 5.07 monofilament was intact B/L. Vibratory [...] and thickness 1through 10. Bhanu Ramirez DPM FACFAS documented in this encounterMissouri Baptist Medical [id number] History of Present illness Narrative* Case Melchor [...] results found for: IRONSAT , FERRITIN , [id number] , FOLATE Mineral and Bone Labs: No [...] of your patients! Please contact me at [phone] (Office) or [phone] (Answering service) with any questions. CASE MELCHOR MD [facility] This note was created with the assistance of a speech-recognition program. Although the intention is to generate a document that actually reflects the content of the visit, no guarantees can be provided that every mistake has been identified and corrected by editing. documented in this encounterKindred Hospital Lima08-28-2024 History of Present illness Narrative* Lizandro Veronica, HALINA - 10/19/2023 10:05 AM EDT ----- Thursday, October 19, 2023 at 11:01:41 AM ----- ----- Provider: [id number] - Lizandro Veronica, Resident -- Clinic: [place] ----- LIMITED EXAM Patient presents for Emergency [...] consented to treatment today. Pt here with double cut sawyer to discuss IV sedation as a quicker [...] sedation. Informed both the patient and the double cut sawyer. Treatment request for IV sedation will be sent for the patient. Next Visit: IV sedation and appropriate treatment. ----- Signed on Thursday, October 19, 2023 at 1:27:08 PM ----- ----- Provider: [id number] - Og Obrien DDS -- Clinic: [place] ----- documented in this [id number] Miscellaneous Notes* Telephone Encounter - Cesia Lang - 08/01/2023 3:02 PM EDT [facility] last [facility] to be fax[facility] to [phone]. Faxed note. documented in this encounterKindred Hospital Lima06-10-2024 Telephone encounter Note* Telephone Encounter - Cesia Lang - 08/01/2023 3:02 PM EDT [place] Nurs[facility] called and requested the last progress note to be faxed to [phone]. Faxed note. [facility] History of Present illness Narrative* Case Melchor [...] constantly. She is a resident at the [facility] full- time. She is reasonably functional. [...] results found for: IRONSAT , FERRITIN , [id number] , FOLATE Mineral and Bone Labs: No [...] of your patients! Please contact me at [phone] (Office) or [phone] (Answering service) with any questions. CASE MELCHOR MD [facility] This note was created with the assistance of a speech-recognition program. Although the intention is to generate a document that actually reflects the content of the visit, no guarantees can be provided that every mistake has been identified and corrected by editing. documented in this encounterKindred Hospital Lima04-10-2024 Discharge summary Author Rico Romero [facility] June 01, 2023 3:06pm Note Date/Time June 01, 2023 12: 23pm [facility] [address] [place] [address] Discharge Summary Signed Patient: Migdalia Connelly MR#: [id number] : 1985 Acct:[id number] Age/Sex: 37 / F Adm Date: 4 Loc: 4N Room: 0I2220-[address]: Rico Romero DO Copies to: [...] with developmental delay who lives at the [facility] home. She had been cared for at an [...] before she will be transferred back to [place]. She was also given the discharge instructions [...] % (Auto) N/A, Lymph % (Auto) N/A, [place] % (Auto) N/A, Eos % (Auto) N/A, Baso % (Auto) N/A, Nucleat RBC Rel Count N/A, Neut # (Auto) N/A, Lymph # (Auto) N/A, [place] # (Auto) N/A, Eos # (Auto) N/A, [...] <Electronically signed by Rico Romero DO> 06/01/23 [address] [facility] Work Phone: 1(181) 674-518104-09-2024 Progress note Author Rico Romero [facility] May 31, 2023 11:47am Note Date/Time May 31, 2023 11:4 7am [facility] [address] [place] [address] Hospitalist Progress Note Signed Patient: Migdalia Connelly MR#: [id number] : 1985 Acct:[id number] Age/Sex: 37 / F Adm Date: 4 Loc: 4N Room: 9H0730-1 Type: ADM IN Attending Dr: Rico Romero [...] Dose Route Start Last Admin Trade Name Anu PRN Reason Stop Dose Admin Acetaminophen 650 [...] Mg Tablet PO 05/28/24 19:29 20 mg BID@09,1929 KATHARINE Administration Diphenhydramine HCl 25 mg 05/29/23 [...] Tablet PO 05/28/24 19:29 145 mg DAILY@1929 [facility] Administration Fluticasone Propionate 2 spray 05/29/23 18:01 Fluticasone Propionate Kemmerer 120 Kemmerer/16 Gm Bottle INTRANASAL 05/28/24 18:00 DAILY PRN [...] [Efudex] TOPICAL 05/28/24 20:59 Not Given BID [facility] Non-Formulary Medication 1 tab 05/30/23 09:00 05/31/23 [...] signed by Rico Romero DO> 05/31/23 [address] [facility] Work Phone: 1(673) 510-722904-08-2024 Progress note Author Anamaria Benton [facility] May 30, 2023 12:21pm Note Date/Time May 30, 2023 12:2 1pm [facility] [address] [place] [address] Hospitalist Progress Note Signed Patient: Migdalia Connelly MR#: [id number] : 1985 Acct:[id number] Age/Sex: 37 / F Adm Date: 4 Loc: 4N Room: [address] [place] [address] Type: ADM INOo Attending Dr: Anamaria Benton [...] Mg Tablet PO 05/28/24 19:29 0.2 mg 0900,1400,1929 KATHARINE Administration Diazepam 5 mg 05/29/23 18:15 Diazepam 5 Mg Tablet PO 11/25/23 18:14 ONCE PRN 1 HOUR PRIOR TO PROCEDURE Dicyclomine HCl 20 mg 05/29/23 19:30 05/30/23 08:25 Dicyclomine 20 Mg Tablet PO 05/28/24 19:29 20 mg BID@09,1929 KATHARINE Administration Diphenhydramine HCl 25 mg 05/29/23 15:51 05/29/23 20:04 Diphenhydramine 25 Mg Capsule PO 05/28/24 15:50 25 mg Q8H PRN Administration Severe rash or Itching Docusate Sodium 200 mg 05/29/23 19:30 05/30/23 08:24 Docusate 100 Mg Capsule PO 05/28/24 19:29 200 mg BID@09,1929 KATHARINE Administration Emollient Ointment 1 applic 05/29/23 18:01 05/30/23 11:30 Petrolatum,White 99 Gm Oint...G. TOPICAL 1 applic BID PRN Administration dry skin Enoxaparin Sodium 40 mg 05/30/23 10:00 05/30/23 09:11 Enoxaparin 40 Mg/0.4 Ml Syringe SUBCUT 05/29/24 09:59 40 mg DAILY@10 [facility] Administration Fenofibrate 145 mg 05/29/23 19:30 05/29/23 20:00 Fenofibrate Nanocrystallized 145 Mg Tablet PO 05/28/24 19:29 145 mg DAILY@193 KATHARINE Administration Fluticasone Propionate 2 spray 05/29/23 18:01 Fluticasone Propionate Kemmerer 120 Kemmerer/16 Gm Bottle INTRANASAL 05/28/24 18:00 DAILY PRN [...] signed by Anamaria Benton MD> 05/30/23 [address] [facility] Work Phone: 1(457) 737-849004-07-2024 History and physical note Author Arvind Regan [facility] May 29, 2023 4:12pm Note Date/Time May 29, 2023 4:01 pm [facility] [address] [place] [address] Hospitalist H&P Signed Patient: Migdalia Connelly MR#: [id number] : 1985 Acct:[id number] Age/Sex: 37 / F Adm Date: 4 Loc: 4N Room: 3D7693-2 Type: ADM INOo Attending Dr: Arvind Regan DO Copies to: NON STAFF Arvind Regan DO~ HPI DATE OF EXAMINATION: 05/29/23 CHIEF COMPLAINT: Concern for worsening facial cellulitis HISTORY OF PRESENT ILLNESS: This is a 37-year-old female with MRDD who lives in a fdc who presents [facility] ER with her caregiver with concern for worsening facial cellulitis. Patient was just discharged from [facility] on Tuesday after being treated for [...] negative unless noted below or in HPI [facility] Medical History (Updated 05/29/23 @ 16:10 by [...] 13:36 Lymph % (Auto) N/A 05/29/23 13:36 [place] % (Auto) N/A 05/29/23 13:36 Eos % (Auto) N/A 05/29/23 13:36 Baso % (Auto) N/A 05/29/23 13:36 Nucleat RBC Rel Count N/A 05/29/23 13:36 Neut # (Auto) N/A 05/29/23 13:36 Lymph # (Auto) N/A 05/29/23 13:36 [place] # (Auto) N/A 05/29/23 13:36 Eos # [...] periorbital cellulitis where she was hospitalized at [facility] and treated with IV antibiotics and [...] signed by Arvind Regan DO> 05/29/23 1612 [facility] Work Phone: [phone] 332-530904-03-2024 Miscellaneous Notes* Telephone Encounter - Cesia Lang - 05/25/2023 11:38 AM EDT Called and scheduled new pt appt with nurse from [facility]. Labs ordered and faxed to facility. [facility] Telephone encounter Note* Telephone Encounter - Cesia Lang - 05/25/2023 11:38 AM EDT Called and scheduled new pt appt with nurse from [facility]. Labs ordered and [facility]ed to facility. [facility] Asterion [phone] History of Present illness Narrative* Scarlett Albarran DDS - 06/10/2022 1:29 PM EDT ----- May at 3:52:48 PM ----- ----- Provider: [id number] Resident Betsy -- Clinic: [place] ----- OR EVALUATION Patient presents for evaluation [...] treatment in the OR was sent out [phone] NOTE: Note: Pt seen in the OR about 2 years ago. Next Visit: OR ----- Signed on May at 4:11:20 PM ----- ----- Provider: [id number] Ed Obrien DDS -- Clinic: [place] ----- documented in this encounterMetroHealthEvaluation + Plan note No data available for this section [facility]* Diagnosis Onset Date Resolution Status Periorbital cellulitis acute [facility] Work Phone: Evaluation note* Diagnosis Onset Date Resolution Status Bipolar disorder acute Failure of outpatient treatment acute Hypercholesterolemia acute Hypertension acute Moderate intellectual disability acute Periorbital cellulitis acute PTSD (post-traumatic stress disorder) acute Seizure disorder acute [facility] Work Phone: Evaluation note* Diagnosis Onset Date Resolution Status Bipolar disorder acute Hypercholesterolemia acute Hypertension acute PTSD (post-traumatic stress disorder) acute Seizure disorder acute Periorbital cellulitis resol shana [facility] Work Phone: Evaluation note* Diagnosis Caries- Primary [...] [facility] Diagnosis Convulsions, unspecified convulsion type (CMS/HCC)- Primary Hyponatremia Hyposmolality and/or hyponatremia Developmental delay Unspecified delay in development Anger reaction Undersocialized conduct disorder, aggressive type, unspecified [facility]* Diagnosis Encounter for breast and pelvic examination- Primary documented [facility] this [facility]* Diagnosis Onychocryptosis- Primary Ingrowing nail Pain in left toe(s) Abscess, toe, left documented [facility] this [facility]* Diagnosis Abscess, toe, left- Primary Onychocryptosis Ingrowing nail [facility]* Diagnosis Exostosis of right foot- Primary Other enthesopathy of right foot and ankle Pain in right toe(s) Right foot pain Pain in soft tissues of limb Onychomycosis Dermatophytosis of nail Pain in left toe(s) documented [facility] this encounter [facility]* Diagnosis Mastodynia, female- Primary Mass of right breast, unspecified quadrant documented [facility] this encounter [facility]* Diagnosis Caries- Primary Unspecified dental caries [facility]* Diagnosis Mass of right breast, unspecified quadrant- Primary Breast skin changes Mastodynia, female [facility] encounter [facility]* Diagnosis Exostosis of right foot- Primary Other enthesopathy of right foot and ankle Right foot pain Pain in soft tissues of limb documented in this encounter [facility] noteNo assessment information available[facility] Work Phone: Evaluation note* Diagnosis Mastodynia, female- Primary [facility]* Diagnosis Exostosis of right foot- Primary Other enthesopathy of right foot and ankle documented in this encounter [facility]* Diagnosis Caries- Primary Unspecified dental caries Pre-op evaluation- Primary Preoperative examination, unspecified Body mass index (BMI) 30.0-30.9, adult Caries Unspecified dental caries documented in this encounter [facility]HealthHistory and physical note Author Arvind Regan [facility] May 29, 2023 4:12pm Note Date/Time May 29, 2023 4:01 pm [facility] [address] [place] [address] Hospitalist H&P Signed Patient: Migdalia Connelly MR#: [id number] : 1985 Acct:[id number] Age/Sex: 37 / F Adm Date: 4 Loc: 4N Room: 6I9827-0 Type: ADM INOo Attending Dr: Arvind Regan DO Copies to: NON STAFF Arvind Regan DO~ HPI DATE OF EXAMINATION: 05/29/23 CHIEF COMPLAINT: Concern for worsening facial cellulitis HISTORY OF PRESENT ILLNESS: This is a 37-year-old female with MRDD who lives in a fdc who presents [facility] ER with her caregiver with concern for worsening facial cellulitis. Patient was just discharged from [facility] on Tuesday after being treated for [...] negative unless noted below or in HPI [facility] Medical History (Updated 05/29/23 @ 16:10 by [...] Verified 05/29/23 13:05) Unknown Reaction phenylpropanolamine [From Polimax DayQuil] Allergy (Unknown, Verified 05/29/23 13:05) Unknown Reaction pseudoephedrine [From VicAnago DayQuil] Allergy (Unknown, Verified 05/29/23 13:05) Unknown [...] 13:36 Lymph % (Auto) N/A 05/29/23 13:36 [place] % (Auto) N/A 05/29/23 13:36 Eos % (Auto) N/A 05/29/23 13:36 Baso % (Auto) N/A 05/29/23 13:36 Nucleat RBC Rel Count N/A 05/29/23 13:36 Neut # (Auto) N/A 05/29/23 13:36 Lymph # (Auto) N/A 05/29/23 13:36 [place] # (Auto) N/A 05/29/23 13:36 Eos # [...] periorbital cellulitis where she was hospitalized at [facility] and treated with IV antibiotics and [...] 1600 Signed By: <Electronically signed by Arvind Rgean DO> 05/29/23 1612 [facility] Work Phone: Hospital Discharge instructions No data available for this section [facility] Dis[facility] instructions Additional Instructions DO continue to finish all of the antibiotic pills that was prescribed by Radha: Doxycycline. DO NOT take any of the prednisone that was prescribed by Radha. This is not needed anymore. DO take the extra antibiotic we are sending home at this time: Avelox.[facility] Work Phone: Hospital Discharge instructions Additional Instructions Take simethicone as prescribed for abdominal distention. Take Metamucil Colace and MiraLAX as prescribed constipation. Make sure to take drinking plenty of water each day. Take Naprosyn as prescribed for headache. Follow-up with your primary care provider for ongoing treatment.[facility] Work Phone: InstructionsNot on filedocumented in this encounter [facility]InstructionsNot on filedocumented in this encounter [facility]ructionsNot on filedocumented in this encounter [facility] SystemInstructionsNot on filedocumented in this encounter [facility] SystemInstructionsNot on filedocumented in this encounter [facility] SystemInstructionsNot on filedocumented in this encounter [facility] SystemInstructionsNot on filedocumented in this encounter [facility] SystemProcedure anesthesia Narrative* Procedure Summary Procedure Name Responsible Anesthesiologist Anesthesia Start Time Anesthesia Stop Time DENTAL VISIT Orquidea Florez MD 12/15/23 0832 4 0925 Events Date Time Event Comment 12/15/2023 0810 0832 An Start Data 0832 An Start 0833 Preinduction Verify The [facility] thesia team has reviewed the patient's vital signs immediately prior to induction. Domingo Carrion APRN-RAVINDRA 0833 Procedure Timeout Confirm th e correct patient identity: Yes Confirm the correct procedure: Yes Confirm the correct procedural site: Yes Confirm signed informed consent: Yes Confirm prophylactic antibiotic administration (if applicable): N/A Discuss fire risk mitigation (if applicable): Yes Anesthesia Staff MAXIMO Soliz Proceduralist Altagracia Additional Staff 0834 An Induction 08 Anesthesia Release 919 an stop data 923 Handoff I completed my SBAR handoff to [...] Wound 06/09/12 06/09/12 0000 by Carola Hansen, chicken tender Wound 09/15/18; 1148; Inci jae; N/A; Mouth [...] 0832 An Start 0833 Preinduction Verify The [facility] thesia team has reviewed the patient's vital [...] Staff 0834 An Induction 0843 Anesthesia Release 919 an stop data 923 Handoff I completed my SBAR handoff to [...] Wound 06/09/12 06/09/12 0000 by Carola Hansen, chicken tender Wound 09/15/18; 1148; Incision; N/A; Mouth 09/15/18 1148 by Mayte Poole RN Wound 07/14/20; 1023; Bilateral; Other (Comment); Surgical - Incision 07/14/20 1023 by Felix Oro RN Airway Adjunct 12/15/23; 0833; Nasa l Cannula; 12/15/23; 0920 12/15/23 0833 by Domingo Carrion APRN-CRNA 12/15/23 0920 by Domingo Carrion APRN-CRNA documented in this encounter [facility]Progress note No data available for this section [facility] CenterReason for referral (narrative)No reason for referral information availableBer[facility] Work Phone: Reason for visit Narrative* Service Level Authorization (Routine) - Closed Specialty Diagnoses / Procedures Referred By Contac t Referred To Contact Anesthesiology Diagnoses Caries Sabra Frias DMD [address] [place] [address] Phone: tel: fax: [facility] PRE [facility]MISSION [facility] [address] [place] [address] Phone: tel: Referral ID Status Reason Start Date Expiration Date Visits Re quested Visits Authorized [id number] Closed 12/15/2023 12/14/2024 1 1 [facility]* Consultation (Routine) - Pending Review Specialty Diagnoses / Procedures Referred By Contac t Referred To Contact Nephrology Diagnoses Hyponatremia Damien Jones, IMAN-RETAIL STORE ASSISTANT [address] [place] [address] [address] Nephrology Nw[place]i [place] [address] [place] [address] Referral ID Status Reason Start Date Expiration Date Visits Requested Visits Authorized [id number] Pending Review Specialty Services Required 05/24/2023 05/23/2024 1 1 [facility] Summary Purpose Family History No Family History [...] Periorbital cellulitis Chief Complaint Admit Date Unknown August 23, 2024 6:07p m Reason for Referral Specialty Diagnoses / Procedures Referred By Contac t Referred To Contact Anesthesiology Diagnoses Caries Sabra Frias DMD [address] [place] [address] [facility] PRE ADMISSION TESTING [address] [place] [address] Referral ID Status Reason Start Date Expiration Date V isits Requested Visits Authorized [id number] Authorized 12/15/2023 12/14/2024 1 1 Scheduling Instructions Your surgical team will reach out to you to schedule a pre-admission testing appointment. Question Answer Reason for consult? Recommended PAT Risk Score Specialty Diagnoses / Procedures Referred By Contac t Referred To Contact Anesthesiology Diagnoses Caries Og Mahoney, HALINA [address] [place] [address] [facility] PRE ADMISSION TESTING [address] [place] [address] Referral ID Status Reason Start Date Expiration Date V isits Requested Visits Authorized [id number] Authorized 10/19/2023 10/18/2024 1 1 Scheduling Instructions Your surgical team will reach out to you to schedule a pre-admission testing appointment. Question Answer Reason for consult? Recommended PAT Risk Score Additional Source Comments INFORMATION SOURCE (unrecogn ized section and content) DATE CREATED AUTHOR 05/12/2018 [facility] DATE CREATED AUTHOR AUTHOR'S ORGANIZ ATION 07/30/2022 [facility] DATE CREATED AUTHOR AUTHOR'S ORGANIZ ATION 04/21/2023 [facility] DATE CREATED AUTHOR AUTHOR'S ORGANIZ ATION 08/12/2024 [facility] DATE CREATED AUTHOR AUTHOR'S ORGANIZ ATION 08/12/2024 [facility] DATE CREATED AUTHOR AUTHOR'S ORGANIZ ATION 08/26/2024 [facility] DATE CREATED AUTHOR AUTHOR'S ORGANIZ ATION 09/08/2024 [facility] DATE CREATED AUTHOR AUTHOR'S ORGANIZ ATION 10/04/2024 [facility] EPIC DATE CREATED AUTHOR AUTHOR'S ORGANIZ ATION 10/05/2024 [facility] Patient Care team informatio n (unrecognized section and content) Team Status: Active Member Role Status Dates Lio Muñoz DO Primary Care Provider Active Team Status: Active Member Role Status Dates NON STAFF Primary Care Provider Active Start: May 29, 2023 Veinta Amanda APRN Emergency Provider Active Start: May [...] August 06, 2023 End: August 07, 2023 Directory Compiler Relationship Specialty Start Date End Date Lio Muñoz MD [address] [place] [address] PCP - General Family Medicine 11/09/23 Ramone Herrera DO [address] [place] [address] Referring Physician Neurology 05/19/23 Directory Compiler Relationship Specialty Start Date End Date Lio Muñoz MD [address] [place], [place] [id number] PCP - General Family Medicine 11/09/23 Ramone Herrera DO [address] [place] [id number] Referring Physician Neurology 05/19/23 Directory Compiler Relationship Specialty Start Date End Date Lio Muñoz MD [address] [place], [place] [id number] PCP - General Family Medicine 11/09/23 Ramone Herrera DO [address] [place] [address] Referring Physician Neurology 05/19/23 Directory Compiler Relationship Specialty Start Date End Date Lio Muñoz MD [address] [place] [address] PCP - General Family Medicine 11/09/23 Ramone Herrera DO [address] [place] [id number] Referring Physician Neurology 05/19/23 Directory Compiler Relationship Specialty Start Date End Date Lio Muñoz MD [address] [place] [address] PCP - General Family Medicine 11/09/23 Ramone Herrera DO [address] [address] Referring Physician Neurology 05/19/23 Directory Compiler Relationship Specialty Start Date End Date Lio Muñoz MD [address] [place] [address] PCP - General Family Medicine 11/09/23 Ramone Herrera DO [address] [address] Referring Physician Neurology 05/19/23 Directory Compiler Relationship Specialty Start Date End Date Lio Muñoz MD [address] [place] [address] PCP - General Family Medicine 11/09/23 Ramone Herrera DO [address] [place] [id number] Referring Physician Neurology 05/19/23 Directory Compiler Relationship Specialty Start Date End Date Lio Muñoz MD [address] [place] [id number] PCP - General Family Medicine 11/09/23 Ramone Herrera DO [address] [place] [id number] Referring Physician Neurology 05/19/23 Directory Compiler Relationship Specialty Start Date End Date Lio Muñoz MD [address] [place] [address] PCP - General Family Medicine 11/09/23 Ramone Herrera DO [address] [place] [id number] Referring Physician Neurology 05/19/23 Directory Compiler Relationship Specialty Start Date End Date Lio Muoñz MD [address] [place] [address] PCP - General Family Medicine 11/09/23 Ramone Herrera DO [address] [address] Referring Physician Neurology 05/19/23 Directory Compiler Relationship Specialty Start Date End Date Lio Muñoz MD [address] [place] [id number] PCP - General Family Medicine 11/09/23 Ramone Herrera DO [address] [place] [phone] Referring Physician Neurology 05/19/23 Directory Compiler Relationship Specialty Start Date End Date Lio Muñoz MD [address] [place] [address] PCP - General Family Medicine 11/09/23 Ramone Herrera DO [address] [place] [id number] Referring Physician Neurology 05/19/23 Directory Compiler Relationship Specialty Start Date End Date Lio Muñoz DO [address] [place] [id number] PCP - General Family Medicine 08/07/24 Directory Compiler Relationship Specialty Start Date End Date Lio Muñoz DO [address] [place] [address] PCP - General Family Medicine 08/07/24 Directory Compiler Relationship Specialty Start Date End Date Lio Muñoz MD [address] [place] [address] PCP - General Family Medicine 11/09/23 Ramone Herrera DO [address] [place] [phone] Referring Physician Neurology 05/19/23 Directory Compiler Relationship Specialty Start Date End Date Lio Muñoz MD [address] [place], [place] [id number] PCP - General Family Medicine 11/09/23 Ramone Herrera DO [address] [place] [address] Referring Physician Neurology 05/19/23 Team Status: Inactive Member Role Status Dates Lio Muñoz DO Attending Provider Active Start: August 23, 2024 End: August 23, 2024 Directory Compiler Relationship Specialty Start Date End Date Lio Muñoz DO [address] [place], [place] [phone] PCP - General Family Medicine 08/07/24 Directory Compiler Relationship Specialty Start Date End Date Lio Muñoz MD [address] [place], [place] [id number] PCP - General Family Medicine 11/09/23 Ramone Herrera DO [address] [place] [phone] Referring Physician Neurology 05/19/23 Directory Compiler Relationship Specialty Start Date End Date Lio Muñoz MD [address] [place] [address] PCP - General Family Medicine 11/09/23 Ramone Herrera DO [address] [place] [phone] Referring Physician Neurology 05/19/23 Goals (unrecognized section [...] mass Specialty Diagnoses / Procedures Referred By Delilah t Referred To Contact Breast Surgery Diagnoses Mastodynia, female Mass of right breast, unspecified quadrant Linn Red MD [address] [facility] [place] [address] Phone: tel: fax: Yesenia Serrano MD [address] [address] Phone: tel: fax: Referral ID Status Reason Start Date Expiration Date V isits Requested Visits Authorized [id number] Pending Review 08/07/2024 08/07/2025 1 1 Reason Comments Injections F/U RT foot joint in j x1 Reason Comments Follow-up Reason Comments Injections F/U LT foot 1st met joint inj x2 Reason Onset Date Comments Dental 10/05/2024 DD adult dental restorations 10/08/24 under [place] at [facility]. PAT completed 09/21/24. Consents obtained from Guardian Jessica [place]. KIM RN spoke to Yazmin MARES at [facility] on 10/05/24. Confirmed NPO after 0. [facility] address [address] [place] [address] - [place] entrance. 0630 arrival time. Staff from [facility] will be accompanying pt DOS. Reason Comments Pre-surgical Evaluation FOR RECORDS PERTAINING TO PATIENTS WHO ARE [...] BE BASED ON THE PRIMARY CLINICAL RECORDS. [facility]. provides no warranty or guarantee of the accuracy or completeness of information in this document.
[2024-10-06 06:55] LABS: Hematocrit 38.4 % (36.0-48.0); Hemoglobin 13.0 g/dL (12.0-16.0); Immature Granulocytes Abs Auto 0.01 10^3/uL (0.00-0.03); Immature Granulocytes Pct Auto 0.2 % (0.0-0.5); Lymphocytes Absolute Auto 1.5 10^3/uL (1.2-3.8); Mean Corpuscular HGB Conc 33.9 g/dL (29.9-35.2); Mean Corpuscular Hemoglobin 31.0 pg (26.7-34.0); Mean Corpuscular Volume 91.6 fL (81.0-99.0); Platelet Count 322 10^3/uL (150-450); Red Blood Count 4.19 10^6/uL (4.20-5.40); White Blood Count 5.0 10^3/uL (4.0-11.0)
[2024-10-06 07:12] LABS: Alanine Aminotransferase 52 U/L (14-59); Albumin Globulin Ratio 0.8; Albumin Level 3.4 g/dL (3.4-5.0); Alkaline Phosphatase 51 U/L (46-116); Anion Gap 12.0; Aspartate Amino Transferase 42 U/L (15-37); Blood Urea Nitrogen 6.0 mg/dL (7.0-18.0); Calcium 9.2 mg/dL (8.5-10.1); Carbon Dioxide 26.4 mmol/L (21.0-32.0); Chloride 101 mmol/L (98-107); Estimated GFR (African America >60 (>=60 mL/min/1.73m^2); Estimated GFR (Non-African Ame >60 (>=60 mL/min/1.73m^2); Globulin 4.5 g/dL; Glucose 108 mg/dL (74-106); Potassium 4.4 mmol/L (3.5-5.1); Sodium 135 mmol/L (136-145); Total Protein 7.9 g/dL (6.4-8.2)
== END 2024-10-06 06:32 | disposition home or self-care (01) ==
LOC: LAB 06:31
PROVIDERS: PCP Family Medicine; Visit Provider Family Medicine
DX: R10.84 Generalized abdominal pain (principal)
CPT/HCPCS: 36415; 74018; 80053; 85025

== ENCOUNTER 2025-01-05 17:34 | Outpatient (REF) | payer MEDICARE, MEDICAID, SELFPAY ==
--- OUTSIDE RECORDS SUMMARY | 2023-09-02 05:50 | XMS_ITS ---
Author Organization [facility] Address [address] [place] [address] Care Team Providers Care Ergonomics Technician Name Role Phone Lexus Thapa Primary Care Provider REASON FOR VISIT NEW PATIENT DENTAL EXAM Encounters Encounter Location Date Provider Diagnosis [facility] [address] [place] [address] 09/02/2023 Lexus Thapa Plan Of Treatment Next Appt Details Provider Name:Rickie Garg, 0 05/01/2025 09:30:00 AM, [address], [place], [address], Progress Notes * PJ CARDDOB:1985 ([age] yo F)Acc No.[id number]:09/02/2023 Patient:?KAE CARDAH :?Lexus Thapa DDSDOB:1985???Age:38 Y ???Sex:FemaleDate:09/02/2023hone:[phone]:[address] [place] [place] [address], [place], [place] Subjective: * Chief Complaints: * N EW PATIENT DENTAL EXAM * Electronic signature of Lexus Thapa DDS on 01/05/2025 at 05:42 PM ESTSign off status: Pending * Provider: Kody Thapa DDS Date: 0 09/02/2023 Generated for Printing/Faxing/eTransmitting on:?01/05/2025 05:42 PM EST
--- OUTSIDE RECORDS SUMMARY | 2023-09-23 05:25 | XMS_ITS ---
Author Organization [facility] Address [address] [facility] [place] [place] [address] Care Team Providers Care Relationship Manager Name Role Phone Lexus Thapa Primary Care Provider [phone] Dr. Rickie Hebert Unavailable [phone] REASON FOR VISIT NEW PT EXAM Encounters Encounter Location Date Provider Diagnosis [facility] [address] [facility] [place] [address] 09/23/2023 Rickie Garg Plan Of Treatment Next Appt Details Provider Name:Rickie Garg, 0 05/01/2025 09:30:00 AM, [address] [place], [address], Progress Notes * PJ CARDDOB:1985 ([age] yo F)Acc No.[id number]:09/23/2023 Patient:?PJ CARD :?ROBERT CheneyOB:1985???Age:38 Y???Sex: FemaleDate:09/23/2023hone:[phone]:[address] [place] [address]Ytd:Lexus Thapa Subjective: * Chief Complaints: * N EW PT EXAM * Electronic signature of Dr. Rickie Garg , [facility], [id number] on 01/05/2025 at 05:41 PM ESTSign off status: Pending * Provider: Tru Garg DDS Date: 0 09/23/2023 Generated for Printing/Faxing/eTransmitting on:?01/05/2025 05:41 PM EST
--- OUTSIDE RECORDS SUMMARY | 2023-11-01 08:30 | XMS_ITS ---
Author Organization [facility] Address [address] [place] [address] Care Team Providers Care Retail Salesman Name Role Phone Lexus Thapa Primary Care Provider REASON FOR VISIT NEW PT EXAM Encounters Encounter Location Date Provider Diagnosis [facility] [address] [place] [address] 11/01/2023 Lexus Thapa Plan Of Treatment Next Appt Details Provider Name:Rickie Garg, 0 05/01/2025 09:30:00 AM, [address], [place], [address], Progress Notes * PJ CARDDOB:1985 ([age] yo F)Acc No.[id number]:11/01/2023 Patient:?PJ CARD :?Lexus Thapa DDSDOB:1985???Age:38 Y ???Sex:FemaleDate:11/01/2023hone:[phone]:[address] [place] [address], [place] Subjective: * Chief Complaints: * N EW PT EXAM * Electronic signature of Lexus Thapa DDS on 01/05/2025 at 05:44 PM ESTSign off status: Pending * Provider: Kody Thapa DDS Date: 0 11/01/2023 Generated for Printing/Faxing/eTransmitting on:?01/05/2025 05:44 PM EST
--- OUTSIDE RECORDS SUMMARY | 2024-05-04 04:20 | XMS_ITS ---
Author Organization [facility] Address [address] [facility] [place] [address] Care Team Providers Care Service Tech/Welder Name Role Phone Lexus Thapa Primary Care Provider [phone] Dr. Rickie Hebert Unavailable [phone] REASON FOR VISIT tooth loose bottom right [place] Encounters Encounter Location Date Provider Diagnosis [facility] [address] [facility] [place] [address] 05/04/2024 Rickie Garg Plan Of Treatment Next Appt Details Provider Name:Rickie Garg, 0 05/01/2025 09:30:00 AM, [address] [place], [address], Progress Notes * PJ CARDDOB:1985 ([age] yo F)Acc No.[id number]:05/04/2024 Patient:?PJ CARD :?Rickie Garg DDSDOB:1985???Age:38 Y???Sex: FemaleDate:05/04/2024Phone:[phone]:[address] [place] [address]Grx:Lexus Thapa Subjective: * Chief Complaints: * T ooth loose bottom right -[place] * Electronic signature of Dr. Rickie Garg , DMD, [id number] on 01/05/2025 at 05:43 PM ESTSign off status: Pending * Provider: Tru Garg DDS Date: 0 05/04/2024 Generated for Printing/Faxing/eTransmitting on:?01/05/2025 05:43 PM EST
--- OUTSIDE RECORDS SUMMARY | 2024-11-01 04:30 | XMS_ITS ---
Author Organization [facility] Servic es Address [address] [place] [address] Care Team Providers Care Baler Operator Name Role Phone Lexus Thapa Primary Care Provider [phone] Dr. Rickie Hebert Unavailable [phone] REASON FOR VISIT 6 month f/u Encounters Encounter Location Date Provider Diagnosis [facility] [place] [address] [place] [address] 2024 Rickie Garg Plan Of Treatment Next Appt Details Provider Name:Rickie Garg, 0 05/01/2025 09:30:00 AM, [address], [address], Progress Notes * PJ CARDDOB:1985 ([age] yo F)Acc No.[id number]:11/01/2024 Patient:?PJ CARD :?Rickie Garg DDSDOB:1985???Age:39 Y???Sex: FemaleDate:11/01/2024Phone:[phone]:[address] [place] [address]Jpw:Lexus Thapa Subjective: * Chief Complaints: * 6 month f/u * Electronic signature of Dr. Rickie Garg , [facility], [id number] on 01/05/2025 at 05:43 PM ESTSign off status: Pending * Provider: Tru Garg DDS Date: 0 11/01/2024 Generated for Printing/Faxing/eTransmitting on:?01/05/2025 05:43 PM EST
--- OUTSIDE RECORDS SUMMARY | 2024-11-13 03:45 | XMS_ITS ---
Author Organization [facility] Address [address] [place] [address] Care Team Providers Care Senior Communications Engineer Name Role Phone Lexus Thapa Primary Care Provider [phone] REASON FOR VISIT CROWN PREP Encounters Encounter Location Date Provider Diagnosis [facility] [address] [place] [address] 11/13/2024 Lexus Thapa Plan Of Treatment Next Appt Details Provider Name:Rickie Garg, 0 05/01/2025 09:30:00 AM, [address], [address], Progress Notes * STEPHIEPJDOB:1985 ([age] yo F)Acc No.[id number]:11/13/2024 Patient:?PJ CARD :?Lexus Thapa DDSDOB:1985???Age:39 Y ???Sex:FemaleDate:11/13/2024Phone:[phone]:[address] [place] [address], [place] Subjective: * Chief Complaints: * C ROWN PREP * Electronic signature of Lexus Thapa DDS on 01/05/2025 at 05:44 PM ESTSign off status: Pending * Provider: Kody Thapa DDS Date: 0 11/13/2024 Generated for Printing/Faxing/eTransmitting on:?01/05/2025 05:44 PM EST
--- OUTSIDE RECORDS SUMMARY | 2024-12-11 04:30 | XMS_ITS ---
Author Organization [facility] Address [address] [place] [address] Care Team Providers Care Customer Account Manager Name Role Phone Lexus Thapa Primary Care Provider [phone] REASON FOR VISIT CROWN SEAT Encounters Encounter Location Date Provider Diagnosis [facility] [address] [place] [address] 12/11/2024 Lexus Thapa Plan Of Treatment Next Appt Details Provider Name:Rickie Garg, 0 05/01/2025 09:30:00 AM, [address], [place], [address], Progress Notes * PJ CARDDOB:1985 ([age] yo F)Acc No.[id number]:12/11/2024 Patient:?PJ CARD :?Lexus Thapa DDSDOB:1985???Age:39 Y ???Sex:FemaleDate:12/11/2024Phone:[phone]:[address] [place] [address], [place] Subjective: * Chief Complaints: * C ROWN SEAT * Electronic signature of Lexus Thapa DDS on 01/05/2025 at 05:41 PM ESTSign off status: Pending * Provider: Kody Thapa DDS Date: 1 Generated for Printing/Faxing/eTransmitting on:?01/05/2025 05:41 PM EST
--- OUTSIDE RECORDS SUMMARY | 2025-01-05 17:40 | XMS_ITS | CCD ---
Author Organization [facility] CliniSysd Care Team Providers Care Continuity Writer Name Role Phone SYSTEM, PROVIDER NOT IN [...] Admit Provider DO Arvind Regan Attending Provider [phone] IMAN Amanda Emergency Provider [phone] DO Jass Yazid Admit Provider DO Rico Romero Attending Provider DO Lio Muñoz Primary Care Provider [phone] DO Titi Terry Emergency Provider ЕленаprRamone Mcguire DO Unavailable [phone] Lio Muñoz MD Primary Care Provider Unavailable Primary Care Provider Unavailabl e Unavailable Primary Care Provider Unavailabl e Sharon DO, Christopher Unavailable MuñozLio aggarwal DO Primary Care Provider [phone] TEOFILO, LINN L Attending Unavailable TEOFILO, LINN L Referring Unavailable MUÑOZ, LIO A Primary Care Unavailable TEOFILO, LINN L Attending Unavailable TEOFILO, LINN L Referring Unavailable MUÑOZ, LIO A Primary Care Unavailable Muñoz DO, Lio A Attending Provider MuñozArmani aggarwalel A Admitting Unavailable Muñoz, Lio A Attending Unavailable ZAID JOSHUA Attending Unavailable TEOFILO, LINN L Attending Unavailable MUÑOZ, LIO A Primary Care Unavailable TEOFILO, LINN L Attending Unavailable MUÑOZ, LIO A Referring Unavailable MUÑOZ, LIO A Primary Care Unavailable Sharon DO, Christopher Unavailable LIZANDRO VERONICA Attending Unavailable PROVIDER, UNKNOWN Admitting Unavailable MARLENI ALEJANDRO Attending Unavailable PROVIDER, UNKNOWN Admitting Unavailable PROVIDER, UNKNOWN Admitting Unavailable PROVIDER, UNKNOWN Attending Unavailable PROVIDER, UNKNOWN Attending Unavailable AL-MASHNI, OG Referring Unavailable PROVIDER, UNKNOWN Admitting Unavailable PROVIDER, UNKNOWN Admitting Unavailable SABRA FRIAS Referring Unavailable PROVIDER, UNKNOWN Attending Unavailable GLENN CHATMAN Attending Unavailable PROVIDER, UNKNOWN Admitting Unavailable AL-MASHNI, OG Attending Unavailable PROVIDER, UNKNOWN Admitting Unavailable AL-MASHNI, OG Referring Unavailable AL-MASHNI, OG Attending Unavailable AL-MASHNI, OG Admitting Unavailable DOLCE, BHANU Juarez Attending Unavailable DAMIEN JONES Attending Unavailable DOLCE, BHANU Juarez Attending Unavailable FELTER, IVORY Gates Attending Unavailable DOLCE, BHANU Juarez Attending Unavailable DOLCE, BHANU Juarez Attending Unavailable DOLCE, BHANU Juarez Attending Unavailable DOLCE, BHANU Juarez Attending Unavailable DOLCE, BHANU Juarez Attending Unavailable VALENTINA MIKE Attending Unavailable MUÑOZ, LIO A Referring Unavailable DOLCE, BHANU Juarez Attending Unavailable EVE HAQUE Attending Unavailable TEOFILO, LINN L Referring Unavailable MUÑOZ, LIO A Primary Care Unavailable ABBY BAUMAN Attending Unavailable MUÑOZ, LIO A Referring Unavailable MUÑOZ, LIO A Primary Care Unavailable Rashid SERVICE SUPERINTENDENT-INTERNAL INVESTIGATOR-CMigdalia Attending Provider NON STAFF Primary Care Provider Unavailvarsha e Allergies Allergy ClassificationReported Allergen(s)Allergy TypeDate of OnsetReaction(s) FacilityAdrenergic Agonists (1 source)PseudoephedrineDrug Cqrkpyq80-70-0447Vtqzhdt ReactionPeoples HospitalARIPiprazole (1 source)ARIPiprazoleDrug Ocndbrx22-56-0533Yvqzebt ReactionPeoples HospitalChlorpheniramine (1 source)ChlorpheniramineDrug Gejbzec42-65-4033Qbykpqn ReactionFirDunlap Memorial HospitalDextromethorphan (1 source)DextromethorphanDrug Ehcepyz52-33-7324Xmegrdu ReactionPeoples HospitalguaiFENesin (1 source)guaiFENesinDrug Jwlabwn35-24-7353Fmivymc ReactionPeoples HospitalmetyroSINE (1 source)metyroSINEDrug Gcharca10-73-1346Yybaimx ReactionPeoples HospitalMolindone (1 source)MolindoneDrug Hgyywbr85-91-1457Fcfzznf ReactionPeoples HospitalPenicillins (antibiotic) (1 source)AmoxicillinDrug Kpokzkz04-89-1207Wnvxmbq ReactionPeoples HospitalPhenylpropanolamine (1 source)PhenylpropanolamineDrug Whtgmlf65-50-6612Amwkbzx ReactionPeoples HospitalValproate (1 source)ValproateDrug Ofzlkqb50-53-1384Ouwzwzs ReactionPeoples Hospital (20 sources)Amoxicillin; Translations: [AMOXICILLIN]Drug Rxagkuf97-63-9329 [facility] (20 sources)ARIPiprazole; Translations: [Abilify]Drug Ovblwrf04-69-0195 [facility] Work Phone: (20 sources)Dextromethorphan; Translations: [DEXTROMETHORPHAN HBR]Drug Allergy 86-68-2049FdqefGurxzj (20 sources)metyroSINE; Translations: [METYROSINE]Drug Lkmoixd65-18-2172Vkeamyb [facility] (20 sources)Molindone; Translations: [MOLINDONE]Drug Ortvfge18-02-8455Npbcvsb [facility] (20 sources)Nalbuphine; Translations: [NALBUPHINE]Drug Xjqdqbs63-28-3214Tzznmyl [facility] (20 sources)Valproate; Translations: [VALPROIC ACID]Drug Uqpfhto72-75-4345 [facility] (20 sources)Food; Translations: [FOOD]Propensity to adverse reactions to drug 39-18-8093FwpauLqubgv (20 sources)Sympathomimetics; Translations: [SYMPATHOMIMETICS]Propensity to adverse reactions to rxgw07-19-9788Ityuidx [facility]Met[facility] (1 source)AmoxicillinDrug AllergyThe [facility] (1 source)metyroSINEDrug AllergyThe [facility] (1 source)MolindoneDrug AllergyThe [facility] (1 source)NalbuphineDrug AllergyThe [facility] (1 source)ValproateDrug AllergyThe [facility] (1 source)Vicks 44 Custom CareDrug allergy (disorder)[facility] (20 sources)ARIPiprazole; Translations: [ARIPIPRAZOLE]Drug Ogyjzir53-56-8487 [facility] (20 sources)ChlorpheniramineDrug Hfkytqq81-24-2635CkzcmstLhdtazmbgProMedica Flower Hospital (4 sources)DextromethorphanDrug Fqvbwqg58-18-8677Un[facility]ces [facility] (4 sources)guaiFENesinDrug Nkzjdxy68-89-5591PjgxiqiSelect Medical [facility] (4 sources)PhenylpropanolamineDrug Hfofhzs15-15-5074Xymxifp [facility] (4 sources)PseudoephedrineDrug Abbopvr01-94-6416Yaovhix [facility] (4 sources)ValproateDrug Ekbyrfl16-99-2661Zyyrmtg [facility] (9 sources)metyroSINEDrug Pqcaynj67-91-3037K[facility] (8 sources)Other; Translations: [OTHER]Propensity to adverse vxnzqkymu17-92-3902 [facility] Medications Current Medications MedicationDrug Class(es)DatesSig (Normalized)Sig (Original)acetaminophen 500 mg oral tablet (20 sources)Start: 18-19-2044miqg 1 tablet by mouth every six hours as needed for painacetaminophen (TYLENOL) 500 MG tablet Take 1 Tablet by mouth every 6 hours as needed for Pain or Fever. 30 Tablet 10/08/2024 10:08 AM EDT 10/08/2024 ActiveStart: 10-08-2024 End: 98-89-8594785 mg, Oral, PACU ONCE PRN, Starting on Tue10/08/24 at 0803, Until Tue10/08/24 at 1402, Mild Pain (pain score 1,2,3), PACU NowStart: 07-61-6773nhfe 2 capsules by mouth twice daily as needed for painAcetaminophen 325 mg capsule Active 650 MG PO Twice daily as needed for fever or pain August 06, 2023 12:00am Complies with drug therapyStart: 64-00-4175chjb 650 mg by mouth twice dailyAcetaminophen Active 650 MG PO Twice daily August 06, 2023 12:00amtake 1 tablet by mouth every four hours as neededacetaminophen (TYLENOL) 325 mg tablet Take 1 tablet (325 mg total) by mouth every 4 (four) hours as needed. Activetake 2 tablets by mouth twice daily as neededacetaminophen (Tylenol) 325 MG tablet TAKE TWO TABLETS BY MOUTH TWICE A DAY NEEDED FOR TEMP OR GENERAL DISCOMFORT Activealbuterol 0.83 mg/ml inhalation solution (5 sources)beta2-Adrenergic AgonistStart: 75-27-9269frem 1 dose by inhalation every six hours as neededalbuterol (PROVENTIL,VENTOLIN) 2.5 mg /3 mL (0.083 %) nebulizer solution INHALE 1 VIAL VIA NEBULIZER EVERY 6 HOURS NEEDED FOR 2 WEEKS 05/23/2024 Activeatomoxetine 60 mg oral capsule (20 sources)Norepinephrine Reuptake InhibitorStart: 43-35-5687tlng 1 capsule by mouth once daily in the morningStart: 89-26-8334aowd 1 capsule by mouth once daily in the eveningbusPIRone hydrochloride 10 mg oral tablet (4 sources)take 1 tablet by mouth twice dailybusPIRone (BUSPAR) 10 MG tablet Take 10 mg by mouth 2 times daily. Activecalcium carbonate 750 mg chewable tablet (20 sources)Start: 11-27-8543pkjk 2 tablets by mouth every four hours as needed Calcium Carbonate Antacid (Tums Smoothies) 750 MG CHEW Take 2 Tablets by mouth every 4 hours as needed. 05/29/2023 ActiveStart: 90-88-0471ifac 1 tablet by mouth every four hours as neededcalcium carbonate 1500 mg / cholecalciferol 200 unt oral capsule (20 sources)Vitamin DStart: 34-65-4308dcna 1 capsule by mouth twice dailyStart: 68-16-2030wmwo 1 tablet by mouth in the morningcalcium carbonate-vitamin D3 600 mg(1,500mg) -800 units tablet Take 1 tablet by mouth in the morning and 1 tablet before bedtime. 04/26/2023 ActiveStart: 42-91-1103vqbj 1 tablet by mouth in the morningCalcium+D3 600-20 MG-MCG tablet Take 1 tablet by mouth in the morning and 1 tablet before bedtime. 04/26/2023 Activetake 1 tablet by mouth twice daily Calcium+D3 600-20 MG-MCG TABS Take 1 Tablet by mouth 2 times daily. Active calcium polycarbophil 625 mg oral tablet (20 sources)Start: 18-07-0058pyak 1 tablet by mouth in the morningFIBER-LAX 625 mg tablet Take 1 tablet (625 mg total) by mouth in the morning. 07/21/2023 ActiveStart: 05-29-2023 End: 38-78-3495Xyqppfg Polycarbophil (FIBER-LAX ORAL) Take by mouth. 09/21/2024 DiscontinuedCalcium Polycarbophil (FIBER-LAX ORAL) Take by mouth. ActiveCalcium Polycarbophil (FIBER-LAX ORAL) Take by mouth. 0 Hepdil12 hr carBAMazepine 200 mg extended release oral tablet (20 sources)Mood StabilizerStart: 56-08-9465wouh 1 tablet by mouth twice daily carBAMazepine (TEGRETOL XR) 200 MG SR tablet Take 1 Tablet by mouth 2 times daily. 09/21/2024 ActiveStart: 13-31-4078qvwt 1 tablet by mouth three times dailyStart: 82-36-6679pzzy 400 mg by mouth once daily in the evening Carbamazepine Active 400 MG PO Every evening May 29, 2023 12:00amStart: 04-27-2023 End: 46-51-4090uqxv 1 tablet by mouth three times dailycarBAMazepine (TEGRETOL XR) 200 MG SR tablet Take 200 mg by mouth 3 times daily. 11/16/2023 09/21/2024 Discontinuedtake 1 capsule by mouth once daily in the eveningcarBAMazepine ER (CARBATROL) 100 MG CR capsule Take 100 mg by mouth daily. At 4 pm Active End: 29-59-6329stoh 1 tablet by mouth once dailycarbamazepine (TEGretol-XR) 100 MG XR tablet Take 100 mg by mouth daily. 09/21/2024 Discontinuedcarbamazepine (TEGRETOL) 100 MG chewable tablet carbamazepine 100 mg chewable tablet Active cholecalciferol 0.125 mg oral capsule (7 sources)Vitamin Dtake 1 capsule by mouth once dailyCholecalciferol (Vitamin D3) 125 MCG (5000 UT) CAPS Take 125 mcg by mouth daily. Activeclindamycin 300 mg oral capsule (7 sources)Lincosamide AntibacterialStart: 96-05-5887bwpxrsvzhsl (CLEOCIN) 300 mg capsule 08/05/2024 ActiveStart: 25-49-2204qlkx 1 capsule by mouth three times dailyclindamycin (CLEOCIN) 300 MG capsule Take 1 Capsule by mouth 3 times daily for 7 days. 21 Capsule 07/14/2020 ActivecloNIDine hydrochloride 0.2 mg oral tablet (20 sources)Central alpha-2 Adrenergic AgonistStart: 84-15-8839bmux 1 tablet by mouth three times dailycloNIDine (Catapres) 0.2 MG tablet 1 (one) time each day at the same time Activedicyclomine hydrochloride 20 mg oral tablet (20 sources)AnticholinergicStart: 99-85-2627cukj 1 tablet by mouth every six hoursdicyclomine (BENTYL) 20 mg tablet Take 1 tablet (20 mg total) by mouth every 6 (six) hours. 07/21/2023 ActiveStart: 96-98-5094cdhf 1 tablet by mouth twice dailydicyclomine (Bentyl) 20 MG tablet every 12 (twelve) hours Active docusate sodium 100 mg oral capsule (20 sources)Start: 22-82-1263junb 1 capsule by mouth twice daily as needed for constipationStart: 57-57-3335ykcl 2 capsules by mouth twice dailyStart: 89-64-5096oxrp 200 mg by mouth twice dailyDocusate Sodium Active 200 MG PO Twice daily Jalyn 7th, 2024 12:00amDocusate Sodium (DSS) 100 MG capsule 1 (one) time each day at the same time Activetake 1 capsule by mouth three times daily docusate sodium (COLACE) 100 MG capsule Take 100 mg by mouth 3 times daily. ActiveLevonorgestrel-Ethinyl Estrad (20 sources)Progestin, Estrogen, Progestin-containing Intrauterine DeviceStart: 66-88-6728bmeb 1 tablet by mouth once dailyStart: 43-73-8299wody 1 tablet by mouth once dailyLevonorgestrel-Ethinyl Estrad (Falmina (28)) 0.1-20 mg-mcg tablet Active 1 TAB PO Daily May 29, 2023 12:00amtake 1 tablet by mouth once dailyAviane 0.1-20 MG-MCG tablet Take 1 tablet by mouth Daily Activetake 1 tablet by mouth once in the morninglevonorgestreL-ethinyl estrad (AVIANE,ALESSE,LESSINA) 0.1-20 mg-mcg per tablet Take 1 tablet by mouth in the morning. Activefenofibrate 134 mg oral capsule (20 sources)Peroxisome Proliferator Receptor alpha AgonistStart: 87-41-5145nsxd 1 capsule by mouth once daily before breakfastfenofibrate micronized (LOFIBRA) 134 mg capsule Take 1 capsule (134 mg total) by mouth every morning before breakfast. 07/21/2023 ActiveStart: 11-60-7568gqna 1 tablet by mouth at bedtime fluticasone propionate 0.05 mg/actuat metered dose nasal spray (20 sources)CorticosteroidStart: 28-78-3005rnzx 1 spray(s) nasal route in the morningfluticasone propionate (FLONASE) 50 mcg/actuation nasal spray Administer 1 spray into each nostril in the morning. 05/29/2023 ActiveStart: 51-94-4964qexe 1 spray(s) nasal route once daily as neededtake 2 spray(s) nasal route once daily as neededfluticasone (Flonase) 50 MCG/ACT nasal spray INHALE 2 SPRAYS INTO EACH NOSTRIL ONCE DAILY NEEDEDActivetake 2 spray(s) nasal route once daily as neededFLUTICASONE PROPIONATE, NASAL, NASAL Use 2 Sprays in each nostril daily as needed for Other. Suspendedtake 2 spray(s) nasal route once daily as needed FLUTICASONE PROPIONATE, NASAL, NASAL Use 2 Sprays in each nostril daily as needed for Other. Activeglycerin 2 mg/ml / naphazoline hydrochloride 0.12 mg/ml ophthalmic solution (5 sources)Non-Standardized Chemical AllergenStart: 99-82-6791ajbm 0.012-0.2 drop(s) into the eye(s) three times daily as hr guaiFENesin 600 mg extended release oral tablet (5 sources)Start: 40-74-1056ghzn 1 tablet by mouth twice daily as needed for congestion and coughguaiFENesin (MUCINEX) 600 mg tablet extended release 12hr TAKE ONE TABLET BY MOUTH TWICE A DAY NEEDED FOR NASAL CONGESTION AND COUGH MUCINEX 06/01/2024 ActiveguanFACINE 2 mg oral tablet (20 sources)Central alpha-2 Adrenergic AgonistStart: 61-47-4132chjl 1 tablet by mouth once dailyguanFACINE (TENEX) 2 mg tablet Take 1 tablet (2 mg total) by mouth nightly. 05/29/2023 ActiveStart: 07-15-8359huzg 1 tablet by mouth three times dailytake 1.5 mg by mouth twice dailyguanfacine (TENEX) 1 MG tablet Take 1.5 mg by mouth 2 times daily. Active1 ml HYDROmorphone hydrochloride 0.2 mg/ml prefilled syringe (2 sources)Opioid AgonistStart: 10-08-2024 End: 50.5 mg, Intravenous, PACU EVERY 15 MIN PRN X 4 DOSES, 4 doses, Starting on Tue10/08/24 at 0803, Until Tue10/09/24 at 2359, Severe Pain (pain score 7,8,9,10), PACU NowStart: 10-08-2024 End: 50.2 mg, Intravenous, PACU EVERY 15 MIN PRN X 4 DOSES, 4 doses, Starting on Tue10/08/24 at 0803, Until Tue10/10/24 at 0802, Moderate Pain (pain score 4,5,6), PACU Nowibuprofen 400 mg oral tablet (20 sources)Nonsteroidal Anti-inflammatory DrugStart: 56-33-6055gkyx 1 tablet by mouth every six hours as needed for painibuprofen (MOTRIN) 400 MG tablet Take 1 Tablet by mouth every 6 hours as needed for Pain. 90 Tablet2 10/08/2024 10:08 AM EDT 10/08/2024 ActiveStart: 77-62-2523ilsa 1 tablet by mouth every six hours as neededibuprofen (ADVIL,MOTRIN) 200 mg tablet Take 1 tablet (200 mg total) by mouth every 6 (six) hours asneeded. 05/29/2023 ActiveStart: 53-61-0200vdwg 2 tablets by mouth every four to six hours as needed for painStart: 05-29-2023 Ibuprofen (Advil) 200 mg tablet Active 400 MG PO As Directed May 29, 2023 12:00amtake 400 mg by mouth every four hours as needed for painIBUPROFEN ORAL Take 400 mg by mouth every 4 hours as needed for Pain. Activeibuprofen (Motrin) 50 mg split tablet (19 sources)ibuprofen (Motrin) 50 mg split tablet Take 400 mg by mouth Active lamoTRIgine 150 mg oral tablet (20 sources)Mood Stabilizer, Anti-epileptic AgentStart: 46-80-8268ryyy 1 tablet by mouth in the morninglamoTRIgine (LaMICtal) 150 mg tablet Take 1 tablet (150 mg total) by mouth in the morning. 07/21/2023 ActiveStart: 76-10-5062dggl 0.5 tablet by mouth in the morninglamoTRIgine (LaMICtal) 200 mg tablet Take 0.5 tablets (100 mg total) by mouth in the morning. 07/21/2023 ActiveStart: 42-60-3377safn 1 tablet by mouth at bedtimeStart: 55-04-7461Chuxr: 04-27-2023 take 1 tablet by mouth once daily in the morningStart: 42-48-6765hmgc 2 tablets by mouth at bedtimelamoTRIgine (LaMICtal) 150 MG tablet Take 300 mg by mouth at bedtime 04/27/2023 Activetake 2 tablets by mouth once dailylamotrigine (LAMICTAL) 25 MG tablet Take 50 mg by mouth daily. Activeloperamide hydrochloride 2 mg oral tablet (20 sources)Opioid AgonistStart: 48-35-9040tuxhemccku (IMODIUM A-D) 2 mg tablet Take 1 tablet (2 mg total) by mouth as needed in the morning and 1 tablet (2 mg total) as needed at noon and 1 tablet (2 mg total) as needed in the evening. 05/29/2023 ActiveStart: 20-82-1496wipn 1 tablet by mouth three times daily as neededloperamide (IMODIUM A-D) 2 mg tablet Take 1 tablet (2 mg total) by mouth 3 (three) times a day as needed. 05/29/2023 ActiveStart: 02-95-3889yhiqprdjsx 10 mg oral tablet (20 sources)Start: 41-20-5573taie 1 tablet by mouth once dailymetoprolol tartrate 100 mg oral tablet (20 sources)beta-Adrenergic BlockerStart: 05-29-2023 End: 21-48-2595tqsd 1 tablet by mouth four times dailymetoprolol tartrate (Lopressor) 100 MG tablet every 12 (twelve) hours Activetake 1 tablet by mouth three times dailymetoprolol (LOPRESSOR) 100 MG tablet Take 100 mg by mouth 3 times a day. Activetake 1 tablet by mouth three times dailymetoprolol (LOPRESSOR) 25 MG tablet Take 25 mg by mouth 3 times daily. Activetake 1 tablet by mouth twice dailymetoprolol (LOPRESSOR) 100 MG tablet Take 100 mg by mouth 2 times daily. Activemontelukast 10 mg oral tablet (20 sources)Leukotriene Receptor AntagonistStart: 26-14-4748hapw 1 tablet by mouth once dailynaltrexone hydrochloride 50 mg oral tablet (4 sources)Opioid Antagonisttake 1 tablet by mouth once dailynaltrexone (DEPADE) 50 MG tablet Take 50 mg by mouth daily. ActiveOLANZapine 20 mg oral tablet (20 sources)Atypical AntipsychoticStart: 28-71-3197eiyl 1 tablet by mouth once dailyOLANZapine (ZyPREXA) 20 mg tablet Take 1 tablet (20 mg total) by mouth nightly. Total 30mg 07/21/2023 ActiveStart: 73-65-6770Glgss: 04-27-2023 End: 86-94-4284amfw 1 tablet by mouth once daily at bedtimeomeprazole 20 mg delayed release oral capsule (20 sources)Proton Pump InhibitorStart: 76-89-0313aoie 1 capsule by mouth once daily2 ml ondansetron 2 mg/ml injection (20 sources)Serotonin-3 Receptor AntagonistStart: 10-08-2024 End: 35-61-7951elda 4 mg intravenously once as needed for nausea4 mg, Intravenous, PACU ONCE PRN, Starting on Tue10/08/24 at 0803, Until Tue10/08/24 at 1402, Nausea, Vomiting, PACU NowStart: 05-29-2023 End: 41-08-2990mhqr 1 tablet by mouth every six hours as needed for nausea and vomitingOndansetron 4 mg tablet,disintegrating Discontinued 4 MG PO Every 6 hours as needed for nausea and vomiting May 29, 2023 12:00am June 01, 2023 12:13pmtake 1 tablet by mouth every six hours as needed for nauseaondansetron (Zofran) 4 MG tablet Take 4 mg by mouth every 6 hours as needed for Nausea. ActiveoxyCODONE hydrochloride 5 mg oral tablet (1 source)Opioid AgonistStart: 07-90-335432 mg, Oral, PRN, 1 dose, Starting on Tue10/08/24 at 0803, Until Discontinued, Moderate Pain (pain score 4,5,6), PACU Now24 hr paliperidone 6 mg extended release oral tablet (20 sources)Atypical AntipsychoticStart: 83-84-6192lgsm 1 tablet by mouth once daily in the morningpaliperidone (INVEGA) 6 mg 24 hr tablet Take 1 tablet (6 mg total) by mouth every morning. 07/21/2023 ActiveStart: 13-16-7109xasr 1 tablet by mouth twice dailyStart: 83-29-6362hdbuyhpbdujg (Invega) 6 MG 24 hr tablet 1 tablet in the morning and 1 tablet before bedtime. 04/27/2023 Activepetrolatum 1 mg/mg topical ointment (5 sources)Start: 15-84-7852ndpvqmydabsg glycol 3350 67458 mg powder for oral solution (20 sources)Osmotic LaxativeStart: 29-40-2927qpdmzhjoqcqk glycol (GLYCOLAX) 17 gram/dose powder Take 17 g by mouth. 11/18/2023 ActiveStart: 16-68-6467tmwxrvvd 400 mg oral capsule (2 sources)Start: 88-53-4002Labseuhb Husk (Metamucil) 0.4 gram capsule (1 source)Start: 85-72-6028Jrjbnyar Husk (Metamucil) 0.4 gram capsule Active 0.4 GM PO Daily August 06, 2023 12:00amraNITIdine 150 mg oral tablet (4 sources)Histamine-2 Receptor Antagonisttake 1 tablet by mouth twice daily ranitidine (ZANTAC) 150 MG tablet Take 150 mg by mouth 2 times daily. Amabgl64 hr scopolamine 0.0139 mg/hr transdermal system (1 source)AnticholinergicStart: 10-08-2024 End: mg, Transdermal, STAT, 1 dose, On Tue10/08/24 at 0730, Pre-op Sennosides (Senna) 8.6 mg capsule (3 sources)Start: 38-87-5468ynli 2 capsules by mouth twice dailySennosides (Senna) 8.6 mg capsule Active 17.2 MG PO Twice daily May 29, 2023 12:00am sennosides, senior living 8.6 mg oral tablet (20 sources)Start: 04-83-0384ncvtygastq (Senokot) 8.6 MG tablet Twice daily 05/29/2023 ActiveStart: 35-50-9688poms 2 capsules by mouth twice daily as needed for constipationsimethicone 250 mg oral capsule (3 sources)Start: 87-28-3151jozt 1 capsule by mouth twice daily as needed tacrolimus 0.001 mg/mg topical ointment (20 sources)Calcineurin Inhibitor ImmunosuppressantStart: 15-46-6493dwidgkozys (Protopic) 0.1 % ointment Indications: Lip licking dermatitis Apply to affected areas bid prn when flared 60 g 11 12/09/2023 Activezolpidem tartrate 10 mg oral tablet (4 sources)gamma-Aminobutyric Acid-ergic AgonistStart: 57-60-9052ncmegykb (AMBIEN) 10 MG tablet 06/10/2020 Active Completed/Discontinued Medications MedicationDrug Class(es)DatesSig (Normalized)Sig (Original)aprepitant 40 mg oral capsule (1 source)Substance P/Neurokinin-1 Receptor AntagonistStart: 10-08-2024 End: 92-40-1321epkj 1 dose by mouth once40 mg, Oral, ONCE, 1 dose, On Tue10/08/24 at 0730, Pre-opStart: 10-08-2024 End: 40-27-0337wgpa 1 dose by mouth once40 mg, Oral, ONCE, 1 dose, On Tue10/08/24 at 0730, Pre-opcalcium chloride 0.0014 meq/ml / potassium chloride 0.004 meq/ml / sodium chloride 0.103 meq/ml / sodium lactate 0.028 meq/ml injectable solution (3 sources)Start: 12-15-2023 End: 96-24-8805Seslarkgjue, PRN CONTINUOUS, Starting on Melanie 12/15/23 at 0832, Until Melanie 12/15/23 at 0925dexmedetomidine 0.1 mg/ml injectable solution (3 sources)Central alpha-2 Adrenergic AgonistStart: 12-15-2023 End: 69-55-1638Fjiwrzitguo Push, PRN, Starting on Melanie 12/15/23 at 0834, Until Melanie 12/15/23 at 0925, Intra-opdiazePAM 5 mg oral tablet (5 sources)BenzodiazepineStart: 05-29-2023 End: 01-07-8902suxl 1 tablet by mouth onceDiazepam 5 mg tablet Discontinued 5 MG PO As Directed May 29, 2023 12:00am August 06, 2023 9:27pm 1 hour prior to proceduredoxycycline hyclate 100 mg oral capsule (5 sources)Tetracycline-class DrugStart: 05-29-2023 End: 68-85-8552zwoi 1 capsule by mouth twice dailyDoxycycline Hyclate 100 mg capsule Discontinued 100 MG PO Twice daily May 29, 2023 12:00am August 06, 2023 9:27pm x 10 days, started on 05/28/23fluorouracil 50 mg/ml topical cream (5 sources)Nucleoside Metabolic InhibitorStart: 05-29-2023 End: 21-31-9235Wgcpugxohbxh (Efudex) 5 % cream Discontinued 1 APPLIC TOPICAL Twice daily May 29, 2023 12:00am August 06, 2023 9:27pm1 ml glycopyrrolate 0.2 mg/ml injection (3 sources)Start: 12-15-2023 End: 88-67-8940Kjxsfbeydze, PRN, Starting on Melanie 12/15/23 at 0834, Until Melanie 12/15/23 at 0925, Intra-op1 ml ketorolac tromethamine 30 mg/ml cartridge (3 sources)Nonsteroidal Anti-inflammatory Drug, Cyclooxygenase InhibitorStart: 12-15-2023 End: 33-49-4741Mybrpwdaldb Push, PRN, Starting on Melanie 12/15/23 at 0912, Until Melanie 12/15/23 at 0925midazolam 1 mg/ml injectable solution (3 sources)BenzodiazepineStart: 12-15-2023 End: 08-32-4281Ukjjvxxhnyh, PRN, Starting on Melanie 12/15/23 at 0834, Until Melanie 12/15/23 at 0925, Intra-opmoxifloxacin 400 mg oral tablet (4 sources)Quinolone AntimicrobialStart: 06-01-2023 End: 78-79-7976bwrm 1 tablet by mouth once dailyMoxifloxacin 400 mg tablet Discontinued 400 MG PO Daily 5 5 0 June 01, 2023 12:00am August 06, 2023 9:27pm1 ml naloxone hydrochloride 0.4 mg/ml injection (1 source)Opioid AntagonistStart: .4 mg, Intravenous, PRN, Starting on Tue10/08/24 at 0803, Until Discontinued, Respiratory Rate Less Than 8 for adults and less than 12 for Peds or for suspected overdose, PACU NowpredniSONE 50 mg oral tablet (5 sources)Start: 05-29-2023 End: 60-64-7398tdid 1 tablet by mouth once dailyPrednisone 50 mg tablet Discontinued 50 MG PO Daily May 29, 2023 12:00am June 01, 2023 12:13pm x5 days, started on 05/29/2419 ml sodium chloride 9 mg/ml injection (6 sources)Start: mL, Intravenous, PRN, Starting on Tue10/08/24 at 0803, Until Discontinued, For medication administration and blood draw, PACU Now Start: 05-29-2023 Problems Active Problems Problem ClassificationProblemDateDocumented DateEpisodic/ChronicAbdominal pain (3 sources)Abdominal pain; Translations: [Unspecified abdominal pain]08-06-2023 EpisodicAllergic reactions (2 sources)Lip-licking eczema; Translations: [Dermatitis, unspecified]12-09-2023 EpisodicAnxiety disorders (18 sources)Posttraumatic stress disorder; Translations: [Post-traumatic stress disorder, unspecified]Onset: 870920-24-5750YxbayqpTeugdfjut-ymplgfs, conduct, and disruptive behavior disorders (20 sources)Attention deficit hyperactivity disorder; Translations: [Attention- deficit hyperactivity disorder, unspecified type]Onset: ChronicDevelopmental disorders (20 sources)Moderate intellectual disability; Translations: [Moderate intellectual disabilities]Onset: 742706-24-3650NkkihjpImilddfqn of lipid metabolism (20 sources)Hypercholesterolemia; Translations: [Pure hypercholesterolemia, unspecified]Onset: 228927-09-0547LxwqdjhApnpghpda of teeth and jaw (20 sources)Chronic periodontitis; Translations: [Chronic periodontitis, unspecified]Onset: 855414-21-9053ClkdkavGhirbovp; convulsions (20 sources)Seizure disorder; Translations: [Epilepsy, unspecified, not intractable, without status epilepticus]Onset: hronic Epilepsy; convulsions (20 sources)Seizure; Translations: [Unspecified convulsions]Onset: 07-14-2023 33-49-5537RunclgzyRztffwfvtv disorders (11 sources)Gastroesophageal reflux disease; Translations: [Gastro-esophageal reflux disease without esophagitis]Onset: 792893-99-1748IolvezzMcpxtpyuw hypertension (20 sources)Hypertensive disorder; Translations: [Essential (primary) hypertension]Onset: 142127-90-6101ChozakpMthrgfcasobvk symptoms and ill- defined conditions (5 sources)Unspecified abnormal findings in urine; Translations: [Other abnormal findings in urine]Onset: 13-64-0066SjkqfsdpHqtjjray; including migraine (14 sources)Headache; Translations: [Headache]Onset: EpisodicImpulse control disorders, NEC (11 sources)Impulse control disorder; Translations: [Impulse disorder, unspecified]Onset: 927671-07-0592CuankgbFmzkdrilcsabw mental health disorders (11 sources)Dissociative disorder; Translations: [Dissociative and conversion disorder, unspecified]Onset: 722965-40-1374RzhxaraLett disorders (20 sources)Bipolar disorder; Translations: [Bipolar disorder, unspecified] Onset: 106400-86-7232IozzbvhXfefkaq (4 sources)Onychomycosis; Translations: [Tinea unguium]96-00-5384XtbrneqmUmfie bone disease and musculoskeletal deformities (3 sources)Exostosis of right foot; Translations: [Other specified disorders of bone, ankle and foot]04-57-2039NenijfkyWipxx connective tissue disease (4 sources)Pain of toe of right foot; Translations: [Pain in right toe(s)] 92-77-2242JicyxhlcFcgmv connective tissue disease (6 sources)Pain of toe of left foot; Translations: [Pain in left toe(s)] 53-99-0417AmnoubbkQzehx connective tissue disease (3 sources)Enthesopathy of lower limb; Translations: [Other enthesopathy of right foot and ankle]62-76-9729LkdujcqjGqsee connective tissue disease (2 sources)Pain in right foot; Translations: [Pain in right foot]08-07-2024 EpisodicOther gastrointestinal disorders (3 sources)Constipation; Translations: [Constipation, unspecified]08-06-2023 EpisodicOther nutritional; endocrine; and metabolic disorders (1 source)Body mass index 30+ - obesity; Translations: [Body mass index (BMI) 30.0-30.9, adult]41-01-7663HhsleluZhvqm skin disorders (4 sources)Ingrowing nail; Translations: [Ingrowing nail]08-07-3264Usnoshrg Residual codes; unclassified (2 sources)Other specified health status; Translations: [Failure of outpatient treatment]28-75-6620LtblqxjiIemi and subcutaneous tissue infections (12 sources)Cellulitis of periorbital region; Translations: [Periorbital cellulitis]40-18-1602CdhxckcoSaduazkvvnll (1 source)Medicare breast and PelvicOnset: 85-82-4168Vfsihlgeihmr (1 source)New PatientOnset: 05-96-4197Bdggreabcyur (1 source)MassOnset: 08-09-2024 Past or Other Problems Problem ClassificationProblemDateDocumented DateEpisodic/ChronicAnxiety disorders (20 sources)Anger reaction; Translations: [Irritability and anger]Onset: 753917-46-1309EoptcxhhHzsfqrtbl of teeth and jaw (20 sources)Dental caries; Translations: [Dental caries, unspecified]Onset: 007882-10-6410JfiltuctAhfah and electrolyte disorders (14 sources)Hyponatremia; Translations: [Hypo-osmolality and hyponatremia]Onset: 427980-65-3591IaqpewbyVmxqspthwxhfn and screening for infectious disease (1 source)Encounter for screening for human papillomavirus (HPV); Translations: [ENC SCREENING HUMAN PAPILLOMAVIRUS]Onset: 24-21-3227QhuwpkmzTcbpjtbfjtla breast conditions (20 sources)Pain of breast; Translations: [Lump in right breast]Onset: 898813-38-3120CvdslkftTlxuo nutritional; endocrine; and metabolic disorders (20 sources)Developmental delay; Translations: [Unspecified lack of expected normal physiological development in childhood]Onset: EpisodicOther screening for suspected conditions (not mental disorders or infectious disease) (20 sources)Possible ; Translations: [Encounter for test, result unknown]Onset: 425895-90-8922MbbpakkeMbxjw skin disorders (5 sources)Breast changes; Translations: [Changes in skin texture]Onset: 397529-20-4428ByfcuigjMhstq skin disorders (1 source)Changes in skin texture; Translations: [Changes in skin texture]Onset: 84-93-4299RqccqzzgIafcvkyt codes; unclassified (20 sources)Disturbance of consciousness; Translations: [Transient alteration of awareness]Onset: 665912-91-8182Zgzknrtu Results Test NameValueInterpretationReference RangeFacilityAnesthesia Postprocedure Evaluationon [id number] Authentication Interface Message Text Anesthesia Postoperative Assessment: Vital Signs (most recent): BP 153/80 (BP Location: right arm) Pulse 113 Temp 36.6 ???C (97.9 ???F) (Temporal) Resp 16 Ht 5' 5 (1.651 m) Wt 182 lb (82.6 kg) SpO2 99% BMI 30.29 kg/m??? Anesthesia Post Evaluation Level of consciousness: arousable Post-procedure exam normal. Body temperature, hydration status, PONV and pain evaluated and addressed. Pain management: adequate Hydration status: normal PONV:No nausea/vomiting reported Cardiopulmonary status stable Respiratory status: acceptable Cardiovascular status: acceptable ANESTHESIA NOTABLE EVENTS: No notable events documented.NormalThe [facility] Clinic [facility] Hospital SystemAnesthesia Preprocedure Evaluationon [id number] Authentication Interface Message Text Attestation signed by Kedar Moralez MD at 10/08/2024 8:51 AM Teaching Physician Note: I saw and evaluated the patient. I personally obtained the brown and critical portions of the history and physical exam. I reviewed the resident's documentation and discussed the patient with the resident. I agree with the resident's medical decision making as documented in the resident's note. 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 - negative ROS Neuro/Psych (+) bipolar disorder, seizures, attention deficit hyperactivity disorder, intellectual disability Cardiovascular (+) hypertension well controlled, Surgical risk: low; Cardiac condition: no apparent, hyperlipidemia (-) arrhythmia, CHF No previous ECG available GI/Hepatic/Renal (+) GERD (-) renal disease, liver disease Heme/Other - negative ROS Physical Exam Airway Mallampati: II TM distance: Adequate Micrognathia: Not present Jaw opening: Adequate Neck flexion: Adequate Dental PE (+) intact Pulmonary - pulmonary exam normal Comment: Chest clear to auscultation bilaterally Cardiovascular - cardiovascular exam normal Comment: RRR with S1S2; no murmurs, gallops, or rubs Neuro - neurological exam normal Comment: Awake, alert, oriented, No motor deficits and sensation grossly intact Plan Anesthesia plan: general; (ETT) Anesthesia risks / alternatives discussed pre-op Questions answered / anesthesia plan accepted Past medical history, surgical history, allergies, and medications reviewed. Pertinent laboratory tests, EKG, imaging, and consults reviewed and I have personally seen and evaluated the patient, repeating brown portions of the history and physical examination. Attestation: Anesthesia options were discussed with the patient and/or legal branch service representative. The risks, benefits and alternatives were reviewed. Questions regarding anesthesia were answered. Patient and/or legal branch service representative knows such anesthetics and procedures may be performed by Resident physicians, Certified Anesthesiologist Assistants, or Certified Nurse Anesthetists under the supervision of a physician. The patient /or the patient's legal branch service representative agree with the plan for anesthesia. [facility] HospitalAnest[facility] Of [facility]on [facility]24 Newspaper Deliverer Authentication Interface Message TextPatient taken to PACU. Patient was drowsy, comfortable, and stable on arrival. Anesthesia Transfer of Care Note Past Medical History: Medical History[1] Sleep Apnea/Positive STOP-BANG: No Problem List: Problem List[2] Past Surgical History: Review of patient's past surgical history indicates: DENTAL RESTORATIONS (12/28/2013) Procedure: DENTAL RESTORATIONS; Surgeon: Lynda Haque DDS; Location: [facility]; Service: Dental DENTAL RESTORATIONS (09/03/2016) Procedure: DENTAL RESTORATIONS; Surgeon: Bhavin Valdovinos DDS; Location: [facility] [place]; Service: Dental CHOLECYSTECTOMY (2009) Per OSH H+P 08/2018 DENTAL RESTORATIONS (09/15/2018) Procedure: DENTAL RESTORATIONS; Surgeon: Og Grant DDS; Location: [facility]; Service: Dental DENTAL RESTORATIONS (07/14/2020) Procedure: DENTAL RESTORATIONS; Surgeon: Og Grant DDS; Location: [facility]; Service: Dental Allergies: Abilify, Amoxicillin, Depakote [valproic acid], Food, Metyrosine, Moban [molindone], Nubain [nalbuphine], Sympathomimetics, and Vicks 44 cough relief [dextromethorphan hbr] Basic Operating Room Facts: Surgeon(s): Og Grant DDS Anesthesiologist: Kedar Moralez MD Utility Driver: Randi Rico MD; Enio Wells MD DENTAL RESTORATIONS (Bilateral: Mouth) EXTRACTION, TOOTH (Bilateral: Mouth) Intraoperative Events: No acute event ASA: 2 EBL: Not documented Urine Not documented Lactated Ringers and NaCl 0.9%: Fluid Totals (Filter: LR and NaCl 0.9% Medications Shown) Medication Calculated Total Lactated Ringers 600 mL / 1 bag Cell Saver: Not documented Blood Volume Values: Blood Products None MTP Blood: MTP PRBC: Not documented MTP FFP: Not documented MTP PLT: Not documented MTP Cryo: Not documented MTP Whole Blood: Not documented Current Vasoactive Medications: {Vasoactive Medications: None Lines, Drains, Airways Airway Insertion Details [REMOVED] Advanced Airway: ETT, Nasal #7 (Removed) 10/08/24 0759 Pre-Oxygenation/ Induction: Mask Rapid Sequence Induction?: Mask Ventilation: Easy Blade Type: Hyperangulated Blade Size: 4 Visualization: Grade 2 Airway Type: ETT, Nasal Airway Size: #7 Post Insertion Assessment: Confirmation: Equal bilateral breath sounds, CO2 confirmed # Attempts >1: 2 Special Equipment: Present on Admission?: Previously Removed / Not Present: Removal Reason: Discontinued therapy Not Removed at Discharge: Removed 10/08/24 0940 Measured from: Naris 10/08/24 0815 Secured via: Taped 10/08/24 08 Site Assessment WNL 10/08/24 0815 All non-working IVs have been removed: N/A Laboratory Data: CBC (last 3 years, up [...] of understanding of the report was received. Enio Wells MD [1] Past Medical History: Diagnosis Date Attention deficit hyperactivity disorder (ADHD) 05/25/2012 Attention deficit disorder with hyperactivity Caries 09/05/2018 Added automatically from request for surgery [id number] Constipation Per OSH H+P 08/2018 Dental decay 08/26/2016 Added automatically from request for surgery [id number] Developmental delay Per OSH H+P 08/2018 Hormone imbalance Per OSH H+P 08/2018 HTN (hypertension) Per OSH H+P 08/2018 Hypercholesteremia Per OSH H+P 08/2018 Moderate intellectual disabilities 05/25/2012 Mood disorder (HCC) Per OSH H+P 08/2018 Pituitary microadenoma (HCC) Per OSH H+P 08/2018 Seizures (HCC) Per OSH H+P 08/2018 [2] Patient Active Problem List Diagnosis Code Moderate intellectual disabilities F71 Attention deficit hyperactivity disorder (ADHD) F90.9 Unspecified dental caries K02.9 Chronic periodontitis, unspecified K05.30 Unconfirmed Z32.00 Dental decay K02.9 Caries K02.9 Bipolar disorder (HCC) F31.9 Dissociative disorder F44.9 Impulse control disorder F63.9 Gastroesophageal reflux disease K21.9 Headache R51.9 Posttraumatic stress disorder F43.10[facility] SystemBrief Operative Noteon [id number] Authentication Interface Message TextBrief Operative Note [facility] OR 3 Migdalia E Stephie 39 year old female Surgical Contact Serial Number: [id number] Preoperative Diagnosis: Pre-op Diagnosis * Caries [K02.9] Moderate intellectual disabilities Attention deficit hyperactivity disorder (ADHD) Unspecified dental caries Chronic periodontitis, unspecified Unconfirmed Dental decay Bipolar disorder (HCC) Dissociative disorder Impulse control disorder Gastroesophageal reflux disease Headache Posttraumatic stress disorder Postoperative Diagnosis: Moderate intellectual disabilities Attention deficit hyperactivity disorder (ADHD) Unspecified dental caries Unconfirmed Bipolar disorder (HCC) Dissociative disorder Impulse control disorder Gastroesophageal reflux disease Headache Posttraumatic stress disorder Procedures: Full mouth xrays [84253] Comprehensive exam [77558] Prophy [62767] Fluoride application [64063] Restorative [01841] Surgical extractions [63464] Surgeon(s): Surgeon(s): Og Grant DDS Staff: Box Closing Machine Operator Nurse: Rosanna Monroe RN Dental Resident: Risa Black DDS Anesthesia: General Anesthesiologist: Kedar Moralez MD Utility Driver: Randi Rico MD; Enio Wells MD Specimen(s): * No specimens in log * Estimated Blood Loss: less than 5 cc Lines/Drains: * No LDAs found * Temporarily Retained Foreign Object: No Findings: Normal Complications: None Status at end of surgery: Stable Activity: weight bearing as tolerated Surgical wound class: No wound. Patient Class: Outpatient Surgery. Is this a patient scheduled as an outpatient that needs to be admitted as an inpatient? No . Dr. Grant was present in the OR for the critical portion of the procedure and procedure sign-out. Signed by Risa Black DDS 10/08/2024 9:24 [facility] Inter[facility] H AND P Noteon [id number] Authentication Interface Message TextH AND P reviewed. The patient was examined and there are no changes to the H AND P. Medications, allergies, and pertinent laboratory and diagnostic tests were also reviewed at this time. Surgery still indicated. Surgical Attestation: I have reviewed the patient's History and Physical Examination. I have personally seen and evaluated the patient, repeating brown portions. There is no significant interval change. Surgery is still indicated. Yes Consent reviewed and signed by patient/family: Yes Operative site verified and marked: site verified but not marked as not anatomically possible Risa Black DDS 10/08/2024 7:15 [facility]PITALVolly SystemOP Noteon [id number] Authentication Interface Message TextOperative Note [facility] OR 3 Migdalia Connelly 39 year old female Surgical Contact Serial Number: [id number] Preoperative Diagnosis: Pre-op Diagnosis * Caries [K02.9] Moderate intellectual disabilities Attention deficit hyperactivity disorder (ADHD) Unspecified dental caries Chronic periodontitis, unspecified Unconfirmed Dental decay Bipolar disorder (HCC) Dissociative disorder Impulse control disorder Gastroesophageal reflux disease Headache Posttraumatic stress disorder Postoperative Diagnosis: Moderate intellectual disabilities Attention deficit hyperactivity disorder (ADHD) Unspecified dental caries Unconfirmed Bipolar disorder (HCC) Dissociative disorder Impulse control disorder Gastroesophageal reflux disease Headache Posttraumatic stress disorder Procedures: Full mouth xrays [94349] Comprehensive exam [63888] Prophy [74933] Fluoride application [39160] Restorative [22033] Surgical extractions [85854] Surgeon(s): Surgeon(s): Og Grant DDS Staff: Box Closing Machine Operator Nurse: Rosanna Monroe RN Dental Resident: Risa Black DDS Anesthesia: General- Nasal ETT Estimated Blood Loss: less than 5 cc IV Fluids: 500cc Urine Output: Not measured. Findings: The patient was brought to the operating room and placed in the supine position on the operating room table. Following satisfactory induction of GA. The patient was intubated with a nasal endotracheal tube. She was then prepped and drapped in the usual sterile fashion for dental procedures. Full mouth series were then taken and an oral examination was completed. A moistened throat pack was then placed. Full mouth scaling was then performed. The radiographs were examined by the attending and the resident and used in conjunction with th oral exam to formulate a treatment plan. The restorative aspect of the treatment plan included the following composite restorations for # 11 DILF, #24 DILF, and #27 DL. These restorations were placed following excavation of the carious lesions on each tooth. The surgical aspect of the treatment plan included the following surgical extraction(s) and/or root removal: Teeth # 12, # 25, # 26, # 28, and # 30 3.0 chromic gut sutures were placed in all extraction sites. The remaining dentition was then polished with prophy paste. The oral cavity was irrigated and suctioned then the throat pack was removed. Fluoride treament was placed on the remaining dentition. The patient tolerated the procedure well was extubated in the operating room, and taken to the PACU in stable condition. Complications: None Status at end of surgery: Stable Medications: Medications Taking[1] Dictated by: Risa Black DDS: Dr. AL- Mashni was present for the critical portions of the procedure. Risa Black, OSCARSylvia 10/08/2024 9:31 AM [1] Outpatient Medications Marked as Taking for the 10/08/24 encounter (Hospital Encounter) Medication Sig Dispense Refill Cholecalciferol (Vitamin D3) 125 MCG (5000 UT) CAPS Take 125 mcg by mouth daily. metoprolol (LOPRESSOR) 100 MG tablet Take 100 mg by mouth 3 times a day. polycarbophil (Fiber-Lax) 625 MG tablet Take 2 Tablets by mouth every morning. carBAMazepine (TEGRETOL XR) 200 MG SR tablet Take 1 Tablet by mouth 2 times daily. carBAMazepine ER (CARBATROL) 100 MG CR capsule Take 100 mg by mouth daily. At 4 pm metoprolol (LOPRESSOR) 25 MG tablet Take 25 mg by mouth 3 times daily. Calcium Carbonate Antacid (Tums Smoothies) 750 MG CHEW Take 2 Tablets by mouth every 4 hours as needed. Polyethylene Glycol 3350 (PEG 3350) 17 GM/SCOOP POWD Take 17 g by mouth every morning. paliperidone (INVEGA) 6 MG 24 hour tablet Take 6 mg by mouth 2 times a day. lamotrigine (LaMICtal) 150 MG tablet Take 300 mg by mouth at bedtime. lamotrigine (LaMICtal) 200 MG tablet Take 200 mg by mouth every morning. atomoxetine (STRATTERA) 40 MG capsule Take 40 mg by mouth every evening. atomoxetine (STRATTERA) 60 MG capsule Take 60 mg by mouth every morning. Calcium+D3 600-20 MG-MCG TABS Take 1 Tablet [...] 20 mg by mouth 2 times a day.NormalThe [facility] SystemProgress Noteson [id number] Authentication Interface Message Text----- Tuesday, October 08, 2024 at 9:47:45 AM ----- ----- Provider: Satinder Obrien DDS -- Clinic: [facility] ----- [place] notes, pt is ready for tx. poor OH. restos and ext completed as needed. took long time, ext was tricky, root tips broke, flaps raised, tips delivered. releasing incisions made to retrieve teeth 12, and 28. OP Note by Risa Black DDS at 10/08/2024 8:06 AM Author: Risa Black DDS Service: Dentistry Author Type: Resident Filed: 10/08/2024 9:33 AM Date of Service: 10/08/2024 8:06 AM Note Type: OP Note Status: Cosign Needed Extractor Operator Helper: Risa Black DDS (Resident) Cosign Required: Yes Operative Note [facility] OR 3 Migdalia Connelly 39 year old female Surgical Contact Serial Number: [id number] Preoperative Diagnosis: Pre-op Diagnosis * Caries [K02.9] Moderate intellectual disabilities Attention deficit hyperactivity disorder (ADHD) Unspecified dental caries Chronic periodontitis, unspecified Unconfirmed Dental decay Bipolar disorder (HCC) Dissociative disorder Impulse control disorder Gastroesophageal reflux disease Headache Posttraumatic stress disorder Postoperative Diagnosis: Moderate intellectual disabilities Attention deficit hyperactivity disorder (ADHD) Unspecified dental caries Unconfirmed Bipolar disorder (HCC) Dissociative disorder Impulse control disorder Gastroesophageal reflux disease Headache Posttraumatic stress disorder Procedures: Full mouth xrays [43027] Comprehensive exam [65866] Prophy [45039] Fluoride application [38617] Restorative [32173] Surgical extractions [35809] Surgeon(s): Surgeon(s): Og Grant DDS Staff: Box Closing Machine Operator Nurse: Baillie, Rosanna, RN Dental Resident: Risa Black DDS Anesthesia: General- Nasal ETT Estimated Blood Loss: less than 5 cc IV Fluids: 500cc Urine Output: Not measured. Findings: The patient was brought to the operating room and placed in the supine position on the operating room table. Following satisfactory induction of GA. The patient was intubated with a nasal endotracheal tube. She was then prepped and drapped in the usual sterile fashion for dental procedures. Full mouth series were then taken and an oral examination was completed. A moistened throat pack was then placed. Full mouth scaling was then performed. The radiographs were examined by the attending and the resident and used in conjunction with th oral exam to formulate a treatment plan. The restorative aspect of the treatment plan included the following composite restorations for # 11 DILF, #24 DILF, and #27 DL. These restorations were placed following excavation of the carious lesions on each tooth. The surgical aspect of the treatment plan included the following surgical extraction(s) and/or root removal: Teeth # 12, # 25, # 26, # 28, and # 30 3.0 chromic gut sutures were placed in all extraction sites. The remaining dentition was then polished with prophy paste. The oral cavity was irrigated and suctioned then the throat pack was removed. Fluoride treament was placed on the remaining dentition. The patient tolerated the procedure well was extubated in the operating room, and taken to the PACU in stable condition. Complications: None Status at end of surgery: Stable Medications: [Medications Taking] [Medications Taking] Outpatient Medications Marked as Taking for the 10/08/24 encounter (Hospital Encounter) Medication Sig Dispense Refill * Cholecalciferol (Vitamin D3) 125 MCG (5000 UT) CAPS Take 125 mcg by mouth daily. * metoprolol (LOPRESSOR) 100 MG tablet Take 100 mg by mouth 3 times a day. * polycarbophil (Fiber-Lax) 625 MG tablet Take 2 Tablets by mouth every morning. * carBAMazepine (TEGRETOL XR) 200 MG SR tablet Take 1 Tablet by mouth 2 times daily. * carBAMazepine ER (CARBATROL) 100 MG CR capsule Take 100 mg by mouth daily. At 4 pm * metoprolol (LOPRESSOR) 25 MG tablet Take 25 mg by mouth 3 times daily. * Calcium Carbonate Antacid (Tums Smoothies) 750 MG CHEW Take 2 Tablets by mouth every 4 hours as needed. * Polyethylene Glycol 3350 (PEG 3350) 17 GM/SCOOP POWD Take 17 g by mouth every morning. * paliperidone (INVEGA) 6 MG 24 hour tablet Take 6 mg by mouth 2 times a day. * lamotrigine (LaMICtal) 150 MG tablet Take 300 mg by mouth at bedtime. * lamotrigine (LaMICtal) 200 MG tablet Take 200 mg by mouth every morning. * atomoxetine (STRATTERA) 40 MG capsule Take 40 mg by mouth every evening. * atomoxetine (STRATTERA) 60 MG capsule Take 60 mg by mouth every morning. * Calcium+D3 600-20 MG-MCG TABS Take 1 Tablet by mouth 2 times daily. * cloNIDine (CATAPRES) 0.2 MG tablet Take 0.2 mg by mouth 3 times daily. * guanFACINE HCl 2 MG TABS Take 2 mg by mouth 3 times daily. * docusate sodium (COLACE) 100 MG capsule Take 200 mg by mouth 2 times daily. * lo (more content not included)...NormalThe Mail.[employer] SystemURINE HCG-IN OFFICEOrdered By: Artur Sinclair on 26-70-8716IRY ( test) Ql (U)Negative NegativeMetroHealthNegative Internal ControlNegativeNegativeMetroHealthPositive Internal ControlPositivePositiveMetroHealthMetroHealthTelephone Encounteron 31-22-7223Kxazfiaspbkfl Authentication Interface Message TextDr. Chatman made aware that CBC and CMP from 05/03/24 received from [facility] and scanned into Dissolve. Addendum: Dr. 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: h/o Seizures on AEDs Microadenoma in Pituitary [...] Neck Extension: FROM Mouth (more content not included)...NormalBerger Hospital SystemPatient Instructionson [id number] Authentication Interface Message Text RECOMMENDATIONS: Patient was [...] Stop alternative/herbal medication 10 days before surgery Brenden CasonMarion Hospital SystemProgress Noteson 08-28-2024 Newspaper Deliverer Authentication Interface Message TextNurse (LATAHSA) was contacted for PAT AND OR Visit scheduled -- confirmed information with nurse , also informed nurse importance of receiving PSE call -- if not received surgery will be canceled ----- Wednesday, August 28, 2024 at 12:25:15 PM ----- ----- Provider: AHNNAH Ramírez Dental-Meteorological Observer -- Clinic: [place] -----NormalMemorial Health SystemUrine Cultureon 63-46-7720Yptuedin identified Cx Nom (U)<9,000 colonies/ml mixed bacterial skin contaminants 2 Days PERFORMED BY: [address] [address] PATHOLOGIST GROUP MANAGER CHARLENE BEDOYA M.D.[facility] Emergency Physician GroupComment on above: Performed By: #### CUU #### [place] [address] USAMAMM DIAGNOSTIC BILATERAL W CADon [id number] DIAGNOSTIC BILATERAL W CADMAMM DIAGNOSTIC BILATERAL W CAD MIGDALIA STEPHIE 1985 [id number], [id number] EXAM: MAMM DIAGNOSTIC BILATERAL W CAD, US [...] MD on 08/09/2024 11:36 AM [address] [facility] CenterAnesthesia Postprocedure Evaluationon [id number] Authentication Interface Message TextAnesthesia Postoperative Assessment: Vital Signs (most recent): There [...] home. 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 The risks, benefits and alternatives were reviewed. Questions regarding anesthesia were answered. Patient and/or legal branch service representative knows such anesthetics and procedures may be performed by Resident physicians, Certified Anesthesiologist Assistants, or Certified Nurse Anesthetists under the supervision of a physician. The patient /or the patient's legal branch service representative agree with the plan for anesthesia. MHPATFORMNormBoston University Medical Center HospitalNeogenix Oncology SystemProgress Noteson [id number] Authentication Interface Message Text----- February at 10:34:06 AM ----- ----- Provider: Shelby Frias DMD -- Clinic: [place] ----- PT. WAS SEEN IN [facility] UNDER TWILIGHT SEDATION WITH ANESTHESIA TEAM. Anesthesia diagnosis: Unspecified mental disorder- F09 and Other intellectual disabilities- F78 Dental diagnosis: Dental Caries, unspecified - K02.9 COMPOSITE MANDAEN Patient is scheduled for Yazidi on tooth #23 MFL and 24 DFL. Reviewed Medical History. Patient is ready for treatment. Topical Benzocaine gel applied at the injection site for 2 minutes. Administered 2 carpules of Lidocaine, 2% with Epinephrine 1:100,000,. Cotton roll isolation achieved. Decay/existing scientologist removed, cavity prepared. Selectively etched enamel with 37% phosphoric acid, rinsed, and blot dried. OptiBond bowles applied and light-cured. Condensed packable composite shade A2 in light cured increments using Mylar strip and wedge. Finished with finishing burs, checked occlusion, verified proximal contacts and scientologist was polished. Rinsed and suctioned intraorally, advised [...] ----- Provider: Shelby Frias DMD -- Clinic: [place] -----DigiwinSoft Telephone Encounteron [id number] Authentication Interface Message TextAnesthesia consent obtained by Dr. Koch and scanned into Dissolve.NormalHarrison Community Hospital Mail.[employer] Media Corporation SystemPAT Call Historyon [id number] Authentication Interface Message TextTelephone History Migdalia Connelly, [id number] 02/01/2024 Patient was identified by name and date of with Nurse Latasha from [place]. Needs: Physical, Neck Circumference, Glasses, BHCG, Intellectual Disability, Anxiety and Seizure Precautions on DOS. If the patient becomes ill prior to procedure or surgery, they are to call their provider or surgeon's office directly. 02/01/2024 - communicated with patient will need urine test the morning of the procedure 02/01/2024-Spoke with Dr. 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 38 year old 190.6 lbs [...] 09/05/2018 Added automatically from request for surgery [id number] Constipation Per OSH H+P 08/2018 Dental decay 08/26/2016 Added automatically from request for surgery [id number] Developmental delay Per OSH H+P 08/2018 Hormone [...] Decay, Dental Caries, Peridontitis, Endo (+) 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 (+) irregular periods Neuro/Psych (+) bipolar disorder, [...] DENTAL RESTORATIONS; Surgeon: Bhavin Valdovinos DDS; Location: [facility] [place]; Service: Dental DENTAL RESTORATIONS N/A 09/15/2018 Procedure: DENTAL RESTORATIONS; Surgeon: Og Grant DDS; Location: [facility] [place]; Service: Dental DENTAL RESTORATIONS Bilateral 07/14/2020 Procedure: DENTAL RESTORATIONS; Surgeon: Og Grant DDS; Location: [facility] [place]; Service: Dental SOCIAL HISTORY: Social History Socioeconomic History Marital status: Single Tobacco Use Smoking status: Never Smokeless tobacco: Never Substance and Sexual Activity Alcohol use: Never Drug use: Never PAIN ASSESSMENT: Severity: 0 Location: N/A LABORATORY DATA: [facility] 10/24/2023 LABS TESTS REVIEWED: CXRay: No Chest [...] HCl 2 MG ta (more content not included)...NormalThe Mail.[employer] SystemAddendum Noteon [id number] Authentication Interface Message TextAddendum created 12/15/23 1134 by Orquidea Florez MD Clinical Note SignedNoSt. Charles Hospital Mail.[employer] Media [employer] SystemTranscription Nuritasation Interface Message TextAddendum created 12/15/23 1026 by Domingo Carrion APRN-CRNA Flowsheet accepted, LDA properties acceptedNoElyria Memorial HospitalVaraa.com System Anesthesia Postprocedure Evaluationon 19-05-9647Lqhpocxqslwqp Authentication Interface Message TextAnesthesia Postoperative Assessment: Vital Signs (most recent): There [...] home. 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 The risks, benefits and alternatives were reviewed. Questions regarding anesthesia were answered. Patient and/or legal branch service representative knows such anesthetics and procedures may be performed by Resident physicians, Certified Anesthesiologist Assistants, or Certified Nurse Anesthetists under the supervision of a physician. The patient /or the patient's legal branch service representative agree with the plan for anesthesia. [facility] HospitalAnesthesia Transfer Of [facility] For The Chronically Illon 12-15-2023 Newspaper Deliverer Authentication Interface Message TextPatient recovered by SIGNAL WORKER in room. Patient is awake, comfortable, and [...] DENTAL RESTORATIONS; Surgeon: Bhavin Valdovinos DDS; Location: [facility] [place]; Service: Dental CHOLECYSTECTOMY (2009) Per OSH H+P 08/2018 DENTAL RESTORATIONS (09/15/2018) Procedure: DENTAL RESTORATIONS; Surgeon: Og Grant DDS; Location: [facility] [place]; Service: Dental DENTAL RESTORATIONS (07/14/2020) Procedure: DENTAL RESTORATIONS; Surgeon: Og Grant DDS; Location: [facility] [place]; Service: Dental Allergies: Abilify, Amoxicillin, Depakote [valproic acid], Food, Metyrosine, Moban [molindone], Nubain [nalbuphine], Sympathomimetics, and Vicks 44 cough relief [dextromethorphan hbr] Basic Operating Room Facts: * No surgeons listed * Anesthesiologist: Orquidea Florez MD SIGNAL WORKER: Domingo Carrion APRN-SIGNAL WORKER DENTAL VISIT Intraoperative Events: No acute event [...] of understanding of the report was received. Ian Soliz [facility] SystemBlood Attestationon 12-15-2023 Newspaper Deliverer Authentication Interface Message TextBlood Attestation: ATTESTATION OF INFORMED CONSENT FOR BLOOD: The transfusion of blood and/or blood components were discussed with the patient and/or legal branch service representative. The risks, benefits and alternatives were reviewed. Questions regarding blood transfusions were answered. The patient /or the patient's legal branch service representative agree with the plan for transfusion of blood and/or blood components.NormalThe [facility] SystemProgress Noteson [id number] Authentication Interface Message Text----- November at 9:52:24 AM ----- ----- Provider: Orlando Alejandro, Resident -- Clinic: [place] ----- PT WAS SEEN IN [facility] UNDER TWILIGHT SEDATION WITH ANESTHESIA TEAM Anesthesia [...] status of dentition on the charting. COMPOSITE MANDAEN Patient is scheduled for Yazidi on tooth #26 surface B5. Topical Benzocaine gel applied at the injection site for 2 minutes. Administered 0.5 carpules of Lidocaine, 2% with Epinephrine 1:100,000,. Isolation achieved. Decay/existing scientologist removed, cavity prepared. Selectively etched enamel with 37% phosphoric acid, rinsed, and blot dried. OptiBond bowles applied and light-cured. Condensed packable composite shade A2 in light cured increments. Finished with finishing burs, checked occlusion, verified proximal contacts and scientologist was polished. SIMPLE EXTRACTION tooth # 7 [...] ----- Provider: Shelby Frias DMD -- Clinic: [place] -----NormalThe [employer] System PAT Appt H AND Jaspreet [id number] Authentication Interface Message Text Attestation signed by [...] Jones MD Pre-Admission Testing Consultation Migdalia Connelly, [id number] 38 year old Female 11/23/2023 Consult placed to [facility] due to significant PMH of HLD, HTN, seizures, moderate intellectual disability. [facility] Triage Risk Score Total Score: 3 2 Patient is on more than 2 antihypertension medications. 1 Patient has history of hyperlipidemia. Migdalia Connelly is scheduled for Dental Yazidi Pre-Op diagnosis of: Dental Carries HISTORY OF PRESENT ILLNESS: Patient is a 38 year old female with a pmh of HLD, HTN, seizures, moderate intellectual disability. Patient is here for pre-admission optimization and education prior to surgery. RECENT ILLNESS: Serious illness or hospitalization within the last six months. No STOP BANG: STOP-BANG Row Name 11/23/23 4968 History of sleep apnea? Yes Snoring No [...] DENTAL RESTORATIONS; Surgeon: Bhavin Valdovinos DDS; Location: [facility] [place]; Service: Dental DENTAL RESTORATIONS N/A 09/15/2018 Procedure: DENTAL RESTORATIONS; Surgeon: Og Grant DDS; Location: [facility]; Service: Dental DENTAL RESTORATIONS Bilateral 07/14/2020 Procedure: DENTAL RESTORATIONS; Surgeon: Og Grant DDS; Location: [facility] [place]; Service: Dental Past Medical History and Review [...] mg by mouth d (more content not included)...NormalBerger Hospital SystemTelephone Encounteron 11-23-2023 Newspaper Deliverer Authentication Interface Message TextAnesthesia consent obtained and scanned into Justin.TV. Scheduled for surgery 12/15/2023.NormalThe [facility] SystemProgress Noteson [id number] Authentication Interface Message TextParent/guardian/patient was contacted for PAT AND IV Sedation scheduled -- confirmed information with patient, also informed mom importance of going to PAT appointment -- if missed, IV Sedation will be cancelled, and you will be placed back on wait list 12/15/2023----- Tuesday, November 07, 2023 at 2:17:34 PM ----- ----- Provider: HANNAH Ramírez Dental-Meteorological Observer -- Clinic: [place] -----[facility] SystemTranscription Nuritasation Interface Message TextParent/guardian/patient was contacted for PAT AND IV Sedation scheduled -- confirmed information with patient, also informed mom importance of going to PAT appointment -- if missed, IV Sedation will be cancelled, and you will be placed back on wait list 12/15/2023----- Tuesday, November 07, 2023 at 2:12:30 PM ----- ----- Provider: HANNAH Ramírez Dental-Meteorological Observer -- Clinic: [place] -----[facility] SystemProess Noteson 38-77-2989Gnyxpbsjrgbtc Nuritasation Interface Message Text----- Thursday, October 19, 2023 at 11:01:41 AM ----- ----- Provider: [id number] Veronica, Resident -- Clinic: [place] ----- LIMITED EXAM Patient presents for Emergency [...] consented to treatment today. Pt here with reformatory attendant to discuss IV sedation as a quicker [...] needed for full determination. Spoke with Dr. Grant, he agrees the patient is a candidate for IV sedation. Informed both the patient and the reformatory attendant. Treatment request for IV sedation will be sent for the patient. Next Visit: IV sedation and appropriate treatment. ----- Signed on Thursday, October 19, 2023 at 1:27:08 PM ----- ----- Provider: Satinder Obrien DDS -- Clinic: [place] -----NormalThe [facility] Alanine aminotransferase [Enzymatic activity/volume] in Serum or PlasmaOrdered By: Titi Terry on 24-82-4677ICT [Catalytic activity/Vol]25 U/L7-52 [facility] HospitalAlbumin [Mass/volume] in Serum or Plasma by Bromocresol green (BCG) dye binding methoOrdered By: Titi Terry on 20-47-7075Yfrujcz BCG dye [Mass/Vol]4.0 g/dL3.5-5.7FMercy Health West HospitalAlkaline phosphatase [Enzymatic activity/volume] in Serum or PlasmaOrdered By: Titi Terry on 85-63-8022VPU [Catalytic activity/Vol]32 U/L34-104 [facility] HospitalAspartate aminotransferase [Enzymatic activity/volume] in Serum or PlasmaOrdered By: Titi Terry on 50-71-5098NJK [Catalytic activity/Vol]24 U/T27-34VnlvgoelpPeoples HospitalBacteria [Presence] in Urine by AutomatedOrdered By: HEBERT SILVA on 99-23-7036Sgdbujdg Auto Ql (U)2+ [HPF]None SeenPeoples HospitalBasophils Auto (Bld) [#/Vol]Ordered By: Titi Terry on 08-97-0669Btnsrkwjn (Bld) [#/Vol] 0.0 10*3/uL0.0-0.2FMercy Health West HospitalBasophils/100 WBC Auto (Bld) Ordered By: Titi Terry on 30-22-9359Armyuxrxk/100 WBC (Bld)0.3 %.Pe[facility] HospitalBilirubin Test strip Ql (U)Ordered By: HEBERT TEMP on 26-46-3306Fprxvdyxv Ql (U)NegativeNegativePeoples Hospital Bilirubin.direct [Mass/volume] in Serum or PlasmaOrdered By: Titi Terry on 19-17-4421Biusuyrvr.direct [Mass/Vol]0.10 mg/dL0.03-0.18FMercy Health West HospitalBilirubin.total [Mass/volume] in Serum or PlasmaOrdered By: Titi Terry on 07-15-6749Uacbpojuj [Mass/Vol]0.3 mg/dL0.3-1.0Pe[facility] HospitalCOVID CepheidOrdered By: Titi Terry on 08-06-2023 SARS-CoV-2 (COVID-19) Ab IA QlNegativeNegVan Wert County Hospital Comment on above:This is a duplicate Cepheid Xpert Xpress CoV-2/Flu/RSV Plus RNA by RT-PCR result to be used for statistical tracking purpose only.SARS-CoV-2 (COVID-19) RNA ROSENDO+probe Ql (Unsp spec)Pe[facility] HospitalCalcium [Mass/volume] in Serum or PlasmaOrdered By: Titi Terry on 08-06-2023 Calcium [Mass/Vol]8.8 mg/dL8.6-10.3FMercy Health West HospitalCarbon dioxide, total [Moles/volume] in Serum or PlasmaOrdered By: Titi Terry on 79-57-8212RQ5 [Moles/Vol]22.4 mmol/L21.0-31.0[facility] Chloride [Moles/volume] in Serum or PlasmaOrdered By: Titi Terry on 96-53-4327Yramptes [Moles/Vol]99 mmol/Y77-843GydkrastfPeoples Hospital Color Auto (U)Ordered By: PROVIDER TEMP on 31-84-7749Eupjj (U)YellowYellow [facility] HospitalCreatinine [Mass/volume] in Serum or Plasma Ordered By: Titi Terry on 48-97-4731Oyuuraynmk [Mass/Vol]0.56 mg/dL 0.60-1.20Pe[facility] HospitalEosinophils Auto (Bld) [#/Vol]Ordered By: Titi Terry on 95-57-8817Tfdyivvuynq (Bld) [#/Vol]0.0 10*3/uL0.0-0.45 [facility] HospitalEosinophils/100 WBC Auto (Bld)Ordered By: Titi Terry on 72-64-7100Pijvdyeskor/100 WBC (Bld)0.3 %.[facility] HospitalEpithelial cells.non-squamous [#/area] in Urine sediment by Automated countOrdered By: PROVIDER TEMP on 01-16-2412Mkufckijot cells.non- squamous Auto (Urine sed) [#/Area]1-2 [HPF]None SeenPeoples HospitalEpithelial cells.squamous [#/area] in Urine sediment by Automated count Ordered By: PROVIDER TEMP on 02-73-1818Mnzdgrqgkb cells.squamous Auto (Urine sed) [#/Area]10-19 [HPF]0-2FMercy Health West HospitalErythrocyte distribution width Auto (RBC) [Ratio]Ordered By: Titi Terry on 08-06-2023 Erythrocyte distribution width (RBC) [Ratio]13.0 %11.9-15.3FMercy Health West HospitalErythrocytes [#/area] in Urine sediment by Automated countOrdered By: PROVIDER TEMP on 74-10-3452EMB Auto (Urine sed) [#/Area]5-9 [HPF]0-4 [facility] HospitalGlobulin Calc (S) [Mass/Vol]Ordered By: Titi Terry on 31-91-1785Fdvczhdp (S) [Mass/Vol]2.9 g/dLPeoples HospitalGlucose [Mass/volume] in Serum or PlasmaOrdered By: Titi Terry on 33-92-3540Vnaubfg [Mass/Vol]116 mg/dE96-238HzlaffxfjPeoples Hospital Comment on above:ADA recommended reference rangeRandom Glucose Reference Range is dependent on time and content of last meal. Glucose of more than 200 mg/dL in a nonstressed, ambulatory subject supports the diagnosisof Diabetes Mellitus. Glucose [Mass/volume] in Urine by Test stripOrdered By: PROVIDER TEMP on 28-11-0521Gmpltvy Test strip (U) [Mass/Vol]Normal mg/dLNormalPeoples HospitalHematocrit Auto (Bld) [Volume fraction]Ordered By: Titi Terry on 33-10-4268Mpapdrcgoe (Bld) [Volume fraction]32.9 %34.0-46.4FMercy Health West HospitalHemoglobin Test strip Ql (U)Ordered By: PROVIDER TEMP on 99-34-2320Tvhiyugzvp Ql (U)NegativeNegativePeoples Hospital Hemoglobin [Mass/volume] in BloodOrdered By: Titi Terry on 08-06-2023 Hemoglobin (Bld) [Mass/Vol]11.4 g/dL11.8-15.4FMercy Health West Hospital Hyaline casts [#/area] in Urine sediment by Automated countOrdered By: PROVIDER TEM on 66-82-3895Pdlyuav casts Auto (Urine sed) [#/Area]None [LPF]0-8Peoples HospitalKetones Test strip Ql (U)Ordered By: PROVIDER TEMP on 55-94-8273Igvkito Ql (U)NegativeNegativePeoples Hospital Leukocyte esterase [Presence] in Urine by Test stripOrdered By: PROVIDER TEMP on 78-01-3886Rdfnszspk esterase Test strip Ql (U)2+NegativePeoples HospitalLeukocytes [#/area] in Urine sediment by Automated countOrdered By: PROVIDER TEMP on 63-72-8815NTU Auto (Urine sed) [#/Area]10-19 [HPF]0-4 [facility] HospitalLeukocytes [#/volume] corrected for nucleated erythrocytes in Blood by Automated counOrdered By: Titi Terry on 61-01-7694CNB corrected for nucl RBC Auto (Bld) [#/Vol]9.0 10*3/uL3.8-11.6 [facility] HospitalLipase [Enzymatic activity/volume] in Serum or PlasmaOrdered By: Titi Terry on 84-30-7211Bxawrf [Catalytic activity/Vol] 25.0 U/L11.0-82.0Peoples HospitalLymphocytes Auto (Bld) [#/Vol] Ordered By: Titi Terry on 95-27-3809Zixrwdmstwl (Bld) [#/Vol]0.6 10*3/uL 1.00-4.8Peoples HospitalLymphocytes/100 WBC Auto (Bld)Ordered By: Titi Terry on 86-59-3510Zlntcmjzruy/100 WBC (Bld)6.2 %.[facility] Auto (RBC) [Entitic mass]Ordered By: Titi Terry on 12-53-1816PTV (RBC) [Entitic mass]32.0 pg24.7-34.3FACMC Healthcare System GlenbeighHC Auto (RBC) [Mass/Vol]Ordered By: Titi Terry on 37-20-3945BBHQ (RBC) [Mass/Vol]34.8 g/dL32.0-35.0Peoples HospitalMCV Auto (RBC) [Entitic vol]Ordered By: Titi Terry on 69-17-8663OZX (RBC) [Entitic vol]92.0 tB73-658VutqkenrlPeoples HospitalMonocyte distribution width [Entitic volume] in Blood by AutomatedOrdered By: Titi Terry on 08-06-2023 Monocyte distribution width Auto (Bld) [Entitic vol]28.85 %0.00-20.00Peoples HospitalComment on above:For adults in ED, MDW > 20.0 may be associated with a higher risk of sepsis during the first 12 hrs of hospital admissionMonocytes Auto (Bld) [#/Vol]Ordered By: Titi Terry on 08-06-2023 Monocytes (Bld) [#/Vol]0.4 10*3/uL0.0-0.8[facility] Monocytes/100 WBC Auto (Bld)Ordered By: Titi Terry on 08-06-2023 Monocytes/100 WBC (Bld)4.2 %.Peoples HospitalMucus [Presence] in Urine by AutomatedOrdered By: PROVIDER TEMP on 77-74-9157Otmjz Auto Ql (U) Rare [LPF]Peoples HospitalNeutrophils Auto (Bld) [#/Vol]Ordered By: Titi Terry on 37-31-5686Hdynagwgmpa (Bld) [#/Vol]8.0 10*3/uL1.8-7.7 Peoples HospitalNeutrophils/100 WBC Auto (Bld)Ordered By: Titi Terry on 28-42-3893Vfnkvapkhne/100 WBC (Bld)89.0 %.Peoples HospitalNitrite Test strip Ql (U)Ordered By: PROVIDER TEMP on 08-06-2023 Nitrite Ql (U)NegativeNegativePeoples HospitalNo Panel InformationOrdered By: Titi Terry on 42-72-4703Zjtfxrakw GFR (CKD-EPI)> 60.0 mL/MinPeoples HospitalPharmacy Creatinine Clearance (Chem 142.49Peoples HospitalNucleated erythrocytes [Presence] in Blood by Automated countOrdered By: Titi Terry on 90-00-8837Dvpmrhogw RBC Auto Ql (Bld)0.0 /100{WBC}0-0.5FMercy Health West HospitalPlatelet mean volume Auto (Bld) [Entitic vol]Ordered By: Titi Terry on 08-06-2023 Platelet mean volume (Bld) [Entitic vol]6.8 fL6.3-10.7FMercy Health West HospitalPlatelets Auto (Bld) [#/Vol]Ordered By: Titi Terry on 08-06-2023 Platelets (Bld) [#/Vol]294 10*3/eV948-535MukqsydkkPeoples Hospital Potassium [Moles/volume] in Serum or PlasmaOrdered By: Titi Terry on 92-77-1793Wdqnyugqi [Moles/Vol]3.7 mmol/L3.5-5.1Fire[facility] Medical CenterProtein Test strip (U) [Mass/Vol]Ordered By: PROVIDER TEMP on 08-06-2023 Protein (U) [Mass/Vol]NegativeNegativePeoples HospitalProtein [Mass/volume] in Serum or PlasmaOrdered By: Titi Terry on 08-06-2023 Protein [Mass/Vol]6.9 g/dL6.4-8.9Peoples HospitalRBC Auto (Bld) [#/Vol]Ordered By: Titi Terry on 09-57-5080LRO (Bld) [#/Vol]3.57 10*6/uL 3.60-5.00[facility] Hospitalerum or plasma albumin/globulin mass ratioOrdered By: Titi Terry on 86-42-0826Mhtrjwc/Globulin [Mass ratio]1.4 {ratio}[facility] Hospitalerum or plasma anion gap determination Ordered By: Titi Terry on 25-74-3967Suycm gap [Moles/Vol]13.3 mmol/L 6.0-15.0[facility] Hospitalerum or plasma non-glucuronidated bilirubin measurement (mass/volume)Ordered By: Titi Terry on 08-06-2023 Bilirubin.indirect [Mass/Vol]0.2 mg/dLOhioHealth Mansfield Hospitalodium [Moles/volume] in Serum or PlasmaOrdered By: Titi Terry on 08-06-2023 Sodium [Moles/Vol]131 mmol/W497-078MykhyuvgcOhioHealth Mansfield Hospitalpecific gravity Test strip (U) [Rel density]Ordered By: PROVIDER TEMP on 08-06-2023 Specific gravity (U) [Rel density]1.0221.001-1.030Peoples HospitalUrea nitrogen [Mass/volume] in Serum or PlasmaOrdered By: Titi Terry on 52-73-7962Rjox nitrogen [Mass/Vol]6 mg/dL7-25Peoples HospitalUrine appearanceOrdered By: PROVIDER TEMP on 05-12-9201Gkpsrrtydh (U) CloudyClearFMercy Health West HospitalUrobilinogen Test strip (U) [Mass/Vol]Ordered By: PROVIDER TEMP on 58-87-6314Sowfjilputbo (U) [Mass/Vol] Normal mg/dLNormalPeoples HospitalWBC Auto (Bld) [#/Vol]Ordered By: Titi Terry on 89-27-8244FRM (Bld) [#/Vol]9.0 10*3/uL3.8-11.6FMercy Health West HospitalpH Test strip (U)Ordered By: HEBERT TEMP on 08-06-2023 pH (U)6.5 [pH]5.0-9.0Peoples HospitalAlanine aminotransferase [Enzymatic activity/volume] in Serum or PlasmaOrdered By: Rico Romero on 24-67-2004PTC [Catalytic activity/Vol]15 U/L7-52Peoples HospitalAlbumin [Mass/volume] in Serum or Plasma by Bromocresol green (BCG) dye binding methoOrdered By: Rico Romero on 99-63-9482Qhizkks BCG dye [Mass/Vol]3.5 g/dL3.5-5.7FMercy Health West HospitalAlkaline phosphatase [Enzymatic activity/volume] in Serum or PlasmaOrdered By: Rico Romero on 84-83-5516LTB [Catalytic activity/Vol]42 U/C32-314GlccwfdmcPeoples HospitalAspartate aminotransferase [Enzymatic activity/volume] in Serum or Plasma Ordered By: Rico Romero on 75-81-3514PTZ [Catalytic activity/Vol]13 U/L 13-39Peoples HospitalBand form neutrophils/100 WBC Manual cnt (Bld)Ordered By: Arvind Regan on 53-95-8451Wccf form neutrophils/100 WBC (Bld)5 %0-5FMercy Health West HospitalBasophils Auto (Bld) [#/Vol]Ordered By: Arvind Regan on 57-29-4316Ybnemlkcd (Bld) [#/Vol]N/[facility] JacksonBasophils/100 WBC Auto (Bld)Ordered By: Arvind Regan on 06-01-2023 Basophils/100 WBC (Bld)N/[facility] JacksonBilirubin.total [Mass/volume] in Serum or PlasmaOrdered By: Rico Romero on 06-01-2023 Bilirubin [Mass/Vol]0.2 mg/dL0.3-1.0Peoples HospitalC reactive protein [Mass/volume] in Serum or PlasmaOrdered By: Rico Romero on 25-90-4560UCM [Mass/Vol]1.1 mg/dL0.0-0.5FMercy Health West HospitalCalcium [Mass/volume] in Serum or PlasmaOrdered By: Rico Romero on 06-01-2023 Calcium [Mass/Vol]8.9 mg/dL8.6-10.3FMercy Health West HospitalCarbon dioxide, total [Moles/volume] in Serum or PlasmaOrdered By: Rico Romero on 87-74-2492EG2 [Moles/Vol]26.6 mmol/L21.0-31.0Peoples HospitalChloride [Moles/volume] in Serum or PlasmaOrdered By: Rico Romero on 45-37-7754Crwodlrt [Moles/Vol]102 mmol/F84-240ZboidyxqqPeoples HospitalCreatinine [Mass/volume] in Serum or PlasmaOrdered By: Rico Romero on 89-14-4929Vibonlrxzp [Mass/Vol]0.43 mg/dL0.60-1.20Peoples HospitalEosinophils Auto (Bld) [#/Vol]Ordered By: Arvind Murdocksein on 92-16-5458Hfkpmhrpeiy (Bld) [#/Vol]N/[facility] Eosinophils/100 WBC Auto (Bld)Ordered By: Arvind Jass on 06-01-2023 Eosinophils/100 WBC (Bld)N/[facility] JacksonEosinophils/100 WBC Manual cnt (Bld)Ordered By: Arvind Jass on 26-76-2947Kigptervyyt/100 WBC (Bld)4 %1-3FMercy Health West HospitalErythrocyte distribution width Auto (RBC) [Ratio]Ordered By: Arvind Murdocksein on 52-29-4228Qagyhotyzgq distribution width (RBC) [Ratio]13.7 %11.9-15.3FMercy Health West HospitalErythrocyte sedimentation rate by Photometric methodOrdered By: Rico Romero on 57-43-9362GWC Photometric method (Bld) [Velocity]30 mm/hr0-19Peoples HospitalGlobulin Calc (S) [Mass/Vol]Ordered By: Rico Romero on 54-69-8142Vpyabinm (S) [Mass/Vol]3.0 g/dLPeoples Hospital Glucose [Mass/volume] in Serum or PlasmaOrdered By: Rico Romero on 25-25-4160Hrrfunt [Mass/Vol]107 mg/aR51-822TncpdqrqwPeoples Hospital Comment on above:ADA recommended reference rangeRandom Glucose Reference Range is dependent on time and content of last meal. Glucose of more than 200 mg/dL in a nonstressed, ambulatory subject supports the diagnosisof Diabetes Mellitus. Hematocrit Auto (Bld) [Volume fraction]Ordered By: Arvind Regan on 06-01-2023 Hematocrit (Bld) [Volume fraction]35.5 %34.0-46.4FMercy Health West HospitalHemoglobin [Mass/volume] in BloodOrdered By: Arvind Regan on 06-01-2023 Hemoglobin (Bld) [Mass/Vol]11.7 g/dL11.8-15.4FMercy Health West Hospital Leukocytes [#/volume] corrected for nucleated erythrocytes in Blood by Automated counOrdered By: Arvind Regan on 98-33-6317LHI corrected for nucl RBC Auto (Bld) [#/Vol]10.1 10*3/uL3.8-11.6FMercy Health West HospitalLymphocytes Auto (Bld) [#/Vol]Ordered By: Arvind Regan on 09-20-7528Iuuisfzzfph (Bld) [#/Vol]N/[facility] JacksonLymphocytes/100 WBC Auto (Bld)Ordered By: Arvind Regan on 22-29-0399Mlidtszdebu/100 WBC (Bld)N/[facility] JacksonLymphocytes/100 WBC Manual cnt (Bld)Ordered By: Arvind Regan on 79-38-0629Mgsjszbgijb/100 WBC (Bld)24 %18-42Cleveland ClinicH Auto (RBC) [Entitic mass]Ordered By: Yaneyda Jass on 10-16-6087QKG (RBC) [Entitic mass]31.0 pg24.7-34.3FMercy Health West HospitalMCHC Auto (RBC) [Mass/Vol]Ordered By: Arvind Jass on 33-85-5884LBJO (RBC) [Mass/Vol]33.0 g/dL 32.0-35.0Peoples HospitalMCV Auto (RBC) [Entitic vol]Ordered By: Arvind Murdocksein on 09-75-5008HWM (RBC) [Entitic vol]93.9 xN99-258XbkvepbqmPeoples HospitalMonocytes Auto (Bld) [#/Vol]Ordered By: Arvind Murdocksein on 69-22-1165Yswykjorw (Bld) [#/Vol]N/[facility] Monocytes/100 WBC Auto (Bld)Ordered By: Arvind Murdocksein on 71-25-3413Omzookafp/100 WBC (Bld)N/[facility] JacksonMonocytes/100 WBC Manual cnt (Bld) Ordered By: Arvind Jass on 80-43-8772Ewfcmrems/100 WBC (Bld)6 %2-11Peoples HospitalMyelocytes/100 WBC Manual cnt (Bld)Ordered By: Arvind Murdocksein on 04-70-6688Buhgopwxgy/100 WBC (Bld)11 %0-0Peoples HospitalNeutrophils Auto (Bld) [#/Vol]Ordered By: Arvind Murdocksein on 06-01-2023 Neutrophils (Bld) [#/Vol]N/[facility] JacksonNeutrophils/100 WBC Auto (Bld)Ordered By: neyda Murdocksein on 43-27-5500Fwlwpcixihg/100 WBC (Bld)N/A Peoples HospitalNo Panel InformationOrdered By: Rico Romero on 53-16-0877Cmnqowxsj GFR (CKD-EPI)> 60.0 mL/MinPeoples HospitalPharmacy Creatinine Clearance (Czyg289.30Peoples HospitalNucleated erythrocytes [Presence] in Blood by Automated count Ordered By: Arvind Regan on 84-35-8879Blbkfpbkv RBC Auto Ql (Bld)N/AFMercy Health West HospitalPlatelet adequacy [Presence] in Blood by Light microscopy Ordered By: Arvind Regan on 14-89-4938Oalkhjtfj LM Ql (Bld)IncreasedNormal Peoples HospitalPlatelet mean volume Auto (Bld) [Entitic vol] Ordered By: Arvind Poncein on 05-48-4673Rkbypvcv mean volume (Bld) [Entitic vol] 6.1 fL6.3-10.7FMercy Health West HospitalPlatelet morphology finding [Identifier] in BloodOrdered By: Arvind Regan on 69-08-7446Fdjrliqk morphology finding Nom (Bld)NormalNormLicking Memorial HospitalPlatelets Auto (Bld) [#/Vol]Ordered By: Arvind Regan on 09-03-8519Kzuepuazv (Bld) [#/Vol]456 10*3/cO628-391VbmsmhnxaPeoples HospitalPotassium [Moles/volume] in Serum or PlasmaOrdered By: Rico Romero on 04-16-6768Jwmjjaqcb [Moles/Vol]4.3 mmol/L3.5-5.1FMercy Health West HospitalProtein [Mass/volume] in Serum or PlasmaOrdered By: Rico Romero on 24-97-5275Aphcvoa [Mass/Vol]6.5 g/dL 6.4-8.9Peoples HospitalRB Auto (Bld) [#/Vol]Ordered By: Arvind Regan on 05-10-5210PWN (Bld) [#/Vol]3.77 10*6/uL3.60-5.00[facility] morphologyOrdered By: Arvind Regan on 67-69-9875UJL morphology finding Nom (Bld)NormalNoProMedica Bay Park Hospital Segmented neutrophils/100 WBC Manual cnt (Bld)Ordered By: Arvind Regan on 35-84-3071Fuhgmeetb neutrophils/100 WBC (Bld)51 %50-70[facility] Hospitalerum or plasma albumin/globulin mass ratioOrdered By: Rico Romero on 07-70-7488Ccnfbxi/Globulin [Mass ratio]1.2 {ratio}[facility] Hospitalerum or plasma anion gap determinationOrdered By: Rico Romero on 14-39-3733Fosng gap [Moles/Vol]11.7 mmol/L6.0-15.0 [facility] Hospitalodium [Moles/volume] in Serum or PlasmaOrdered By: Rico Romero on 58-99-4603Pkggfs [Moles/Vol]136 mmol/O986-043 Peoples HospitalUrea nitrogen [Mass/volume] in Serum or Plasma Ordered By: Rico Romero on 19-41-5313Xumv nitrogen [Mass/Vol]9 mg/dL 7-25Peoples HospitalWBC Auto (Bld) [#/Vol]Ordered By: Arvind Regan on 72-84-0661ABJ (Bld) [#/Vol]10.1 10*3/uL3.8-11.6FMercy Health West HospitalLactate [Moles/volume] in Serum or PlasmaOrdered By: Anamaria Benton on 11-88-3874Shukhmz [Moles/Vol]1.4 mmol/L0.5-2.2FMercy Health West HospitalMetamyelocytes/100 WBC Manual cnt (Bld)Ordered By: Arvind Regan on 19-47-7890Dimvbxcaikzlqv/100 WBC (Bld)8 %0-0Peoples HospitalNo Panel InformationOrdered By: Arvind Regan on 33-78-0143Hvjzgb for Pathologist ReviewOrdered path reviewPeoples HospitalPolychromasia [Presence] in Blood by Light microscopyOrdered By: Arvind Regan on 05-31-2023 Polychromasia LM Ql (Bld)SlightPeoples Hospital Promyelocytes/100 WBC Manual cnt (Bld)Ordered By: Arvind Regan on 05-31-2023 Promyelocytes/100 WBC (Bld)1 %0-0[facility] Hospitalerum or plasma trough vancomycin levelOrdered By: Arvind Regan on 77-60-0459Vaoojhogdj trough [Mass/Vol]7.4 ug/mL10.0-20.0Peoples HospitalComment on above:Last dose: -Basophils/100 WBC Manual cnt (Bld)Ordered By: Arvind Regan on 08-49-1285Fhsawibsu/100 WBC (Bld)0 %0-2FMercy Health West Hospital Magnesium [Mass/volume] in Serum or PlasmaOrdered By: Arvind Regan on 43-30-4960Nmimpxeuf [Mass/Vol]1.8 mg/dL1.9-2.7FMercy Health West Hospital Vancomycin [Mass/volume] in Serum or Plasma --peakOrdered By: Arvind Regan on 38-32-3139Qnhtsedhka peak [Mass/Vol]14.1 ug/mL20.0-40.0Peoples HospitalComment on above:Last dose: -Anisocytosis LM Ql (Bld)Ordered By: Venita Amanda on 83-93-4164Sxlnzsvhfizw Ql (Bld)SlightPeoples HospitalBacterial blood cultureOrdered By: Venita Amanda on 05-29-2023 Bacteria identified Cx Nom (Bld)NO GROWTH 5 DAYSPeoples HospitalBacteria identified Cx Nom (Bld)NO GROWTH 5 DAYSPeoples HospitalBand form neutrophils/100 WBC Manual cnt (Bld)Ordered By: Venita Amanda on 85-68-5453Nhkq form neutrophils/100 WBC (Bld)1 %0-5FMercy Health West HospitalBasophils Auto (Bld) [#/Vol]Ordered By: Venita Amanda on 64-32-5103Zlyqaabjt (Bld) [#/Vol]NMercy Health [facility] Basophils/100 WBC Auto (Bld)Ordered By: Venita Amanda on 05-29-2023 Basophils/100 WBC (Bld)N/[facility] JacksonCalcium [Mass/volume] in Serum or PlasmaOrdered By: Venita Amanda on 59-99-6812Vptpuqi [Mass/Vol] 9.0 mg/dL8.6-10.3FMercy Health West HospitalCarbon dioxide, total [Moles/volume] in Serum or PlasmaOrdered By: Venita Amanda on 91-57-3382QQ1 [Moles/Vol]24.6 mmol/L21.0-31.0Peoples HospitalChloride [Moles/volume] in Serum or PlasmaOrdered By: Venita Amanda on 05-29-2023 Chloride [Moles/Vol]99 mmol/Y33-793SmhdkplarPeoples HospitalCreatinine [Mass/volume] in Serum or PlasmaOrdered By: Venita Amanda on 05-29-2023 Creatinine [Mass/Vol]0.55 mg/dL0.60-1.20[facility] Eosinophils Auto (Bld) [#/Vol]Ordered By: Venita Amanda on 05-29-2023 Eosinophils (Bld) [#/Vol]N/AFMercy Health West HospitalEosinophils/100 WBC Auto (Bld)Ordered By: Venita Amanda on 84-08-5691Vltgjdmbocc/100 WBC (Bld)N/A Peoples HospitalErythrocyte distribution width Auto (RBC) [Ratio]Ordered By: Venita Amanda on 72-68-2668Sdzjimfujfl distribution width (RBC) [Ratio]13.7 %11.9-15.3FMercy Health West HospitalGlucose [Mass/volume] in Serum or PlasmaOrdered By: Venita Amanda on 00-12-6920Tokmpwl [Mass/Vol]163 mg/wG71-615ZpwyliaquPeoples HospitalComment on above:ADA recommended reference rangeRandom Glucose Reference Range is dependent on time and content of last meal. Glucose of more than 200 mg/dL in a nonstressed, ambulatory subject supports the diagnosisof Diabetes Mellitus.Hematocrit Auto (Bld) [Volume fraction]Ordered By: Venita Amanda on 98-68-1203Afnzgguynh (Bld) [Volume fraction]35.6 %34.0-46.4FMercy Health West HospitalHemoglobin [Mass/volume] in BloodOrdered By: Venita Amanda on 60-78-0645Lzdgtfnouy (Bld) [Mass/Vol]11.8 g/dL11.8-15.4FMercy Health West HospitalHypochromia LM Ql (Bld)Ordered By: Venita Amanda on 36-97-6748Kfprksljmui Ql (Bld)Slight Peoples HospitalLactate [Moles/volume] in Serum or Plasma Ordered By: Venita Amanda on 63-92-3638Zskhsmw [Moles/Vol]3.0 mmol/L0.5-2.2 Peoples HospitalComment on above:Critical valueresult calledat 1423 on 05/29/23--- 05/29/23 1424 ---Lactic previously reported as: 3.0 *H mmol/LLeukocytes [#/volume] corrected for nucleated erythrocytes in Blood by Automated counOrdered By: Venita Amanda on 06-36-7372XRQ corrected for nucl RBC Auto (Bld) [#/Vol]8.7 10*3/uL3.8-11.6FMercy Health West Hospital Lymphocytes Auto (Bld) [#/Vol]Ordered By: Venita Amanda on 05-29-2023 Lymphocytes (Bld) [#/Vol]N/AFMercy Health West HospitalLymphocytes/100 WBC Auto (Bld)Ordered By: Venita Amanda on 85-72-8890Xtqurfwycom/100 WBC (Bld)N/A Peoples HospitalLymphocytes/100 WBC Manual cnt (Bld)Ordered By: Venita Amanda on 58-21-0141Zzlfybcexns/100 WBC (Bld)23 %18-42[facility] Auto (RBC) [Entitic mass]Ordered By: Venita Amanda on 31-81-8625NFZ (RBC) [Entitic mass]31.0 pg24.7-34.3FMercy Health West HospitalMCHC Auto (RBC) [Mass/Vol]Ordered By: Venita Amanda on 76-43-2182MUAN (RBC) [Mass/Vol]33.2 g/dL32.0-35.0Cleveland ClinicV Auto (RBC) [Entitic vol]Ordered By: Venita Amanda on 68-93-3614BAA (RBC) [Entitic vol]93.2 uN08-031CpieruvhlPeoples HospitalMetamyelocytes/100 WBC Manual cnt (Bld)Ordered By: Venita Amanda on 17-88-7973Hhkbmolglexwlp/100 WBC (Bld)4 %0-0Peoples HospitalMonocyte distribution width [Entitic volume] in Blood by AutomatedOrdered By: Venita Amanda on 81-19-0576Agjvtpws distribution width Auto (Bld) [Entitic vol]18.14 %0.00-20.00Peoples HospitalMonocytes Auto (Bld) [#/Vol]Ordered By: Venita Amanda on 42-11-8049Efdujjjrx (Bld) [#/Vol]N/[facility] Monocytes/100 WBC Auto (Bld)Ordered By: Venita Amanda on 05-29-2023 Monocytes/100 WBC (Bld)N/[facility] JacksonMonocytes/100 WBC Manual cnt (Bld)Ordered By: Venita Amanda on 62-05-9828Cuwoxnnlw/100 WBC (Bld) 1 %2-11Peoples HospitalMyelocytes/100 WBC Manual cnt (Bld) Ordered By: Venita Amanda on 25-24-1045Cupumsters/100 WBC (Bld)12 %0-0 Peoples HospitalNeutrophils Auto (Bld) [#/Vol]Ordered By: Venita Amanda on 58-38-8871Slishikokah (Bld) [#/Vol]N/[facility] – JacksonNeutrophils/100 WBC Auto (Bld)Ordered By: Venita Amanda on 70-54-1575Wrsvxwqshvn/100 WBC (Bld)N/[facility] – JacksonNo Panel InformationOrdered By: Venita Amanda on 10-70-4415Dqnokghov GFR (CKD-EPI)> 60.0 mL/MinPeoples HospitalPharmacy Creatinine Clearance (Chem 149.21OhioHealth Mansfield Hospitallides for Pathologist ReviewOrdered path reviewPeoples HospitalNucleated erythrocytes [Presence] in Blood by Automated countOrdered By: Venita Amanda on 38-14-9604Bqitflxko RBC Auto Ql (Bld)N/AFMercy Health West HospitalPlatelet adequacy [Presence] in Blood by Light microscopyOrdered By: Venita Amanda on 77-16-7395Dovpetsau LM Ql (Bld)NormalNoProMedica Bay Park HospitalPlatelet mean volume Auto (Bld) [Entitic vol]Ordered By: Venita Amanda on 10-75-7847Rdgkgtng mean volume (Bld) [Entitic vol]6.4 fL6.3-10.7FMercy Health West HospitalPlatelet morphology finding [Identifier] in BloodOrdered By: Venita Amanda on 21-74-1286Bmzvaswn morphology finding Nom (Bld)NormalNormLicking Memorial HospitalPlatelets Auto (Bld) [#/Vol]Ordered By: Venita Amanda on 46-95-1147Nvdroggzj (Bld) [#/Vol]403 10*3/rE242-785BtyryasslPeoples HospitalPolychromasia [Presence] in Blood by Light microscopyOrdered By: Venita Amanda on 52-17-9513Hheisiawbbzrw LM Ql (Bld)SlightPeoples HospitalPotassium [Moles/volume] in Serum or PlasmaOrdered By: Venita Amanda on 26-70-5150Iqqdhtclr [Moles/Vol]4.0 mmol/L3.5-5.1FMercy Health West HospitalRBC Auto (Bld) [#/Vol]Ordered By: Venita Amanda on 63-52-7731RFO (Bld) [#/Vol]3.82 10*6/uL3.60-5.00Peoples HospitalRB morphology Ordered By: Venita Amanda on 06-42-4214ADZ morphology finding Nom (Bld)N/A [facility] Hospitalegmented neutrophils/100 WBC Manual cnt (Bld) Ordered By: Venita Amanda on 98-42-9941Zygiihuiu neutrophils/100 WBC (Bld)59 % 50-70OhioHealth Mansfield Hospitalerum or plasma anion gap determination Ordered By: Venita Amanda on 47-54-4155Knrww gap [Moles/Vol]TNPPeoples HospitalComment on above:Test not performedSerum or plasma free cefuroxime measurement (mass/volume)Ordered By: Arvind Regan on 05-29-2023 Cefuroxime free [Mass/Vol]NegativeNegativePeoples Hospital Comment on above:Performed at: - [facility] [id number] Director: Tyrell Fernandez PhD, Phone: [phone] [Moles/volume] in Serum or PlasmaOrdered By: Venita Amanda on 90-19-4811Oeoael [Moles/Vol]134 mmol/H519-099DjzdhwhllPeoples HospitalUrea nitrogen [Mass/volume] in Serum or PlasmaOrdered By: Venita Amanda on 58-94-1541Zfvf nitrogen [Mass/Vol]11 mg/dL7-25Peoples HospitalWBC Auto (Bld) [#/Vol]Ordered By: Venita Amanda on 65-00-3739JVG (Bld) [#/Vol]8.7 10*3/uL 3.8-11.6FMercy Health West HospitalCarbamazepineOrdered By: SYSTEM SYSTEM on 39-86-6695Bbcvgkkv Lvl6.9 microgram/mLNormal4.0-12.0Remisol ChemComment on above:Performed By: #### [id number], [id number] #### [facility] [address], [place] [address]Etytevqqf Orderon 23-15-7329Byzjnizuc Order [id number]#1.00TIFFNormalFishMercy Medical CenterodiumOrdered By: SYSTEM SYSTEM on 23-32-3336Rjofop [Moles/Vol]134 mmol/L Dtp794-848Gzzqxru ChemComment on above:Performed By: #### [id number], [id number] #### [facility] [address], [place] [address]VZMUTTPGBEhcotbj By: SYSTEM SYSTEM on 32-09-5076Bdanrcgw Lvl8.7 microgram/mLNormal4.0 - 12.0 mcg/mLRemisol ChemSodium [Moles/Vol]123 mmol/LLow 135 - 145 mmol/LRemisol ChemCarbamazepineon 37-44-5520Ejocvypi Lvl8.7 microgram/mLNormal4.0-12.0[facility] Community HospitalComment on above:Performed By: #### [id number], [id number] #### [facility] [address], [place] [address]Dfbsvubso Orderon 17-18-1029Ujcpzaqba Order [id number]#1.00TIFFNormalTrinity Health System Twin City Medical Centerodiumon 68-20-5851Wwjvqt [Moles/Vol]123 mmol/UXeo365-841CunjtsWooster Community HospitalComment on above:Performed By: #### [id number], [id number] #### [facility] [address], [place] [address]AF (CLEAN/CATCH) STARCHMAKER/MICRO IF IND.on 89-28-2399Osistyxly Ql (U) NegativeNormalNEGATIVEDayton Va Medical CenterComment on above:Performed By: #### UACSIND #### [facility] [address] [place] [address] Dr. Pio Kurtz (U)CLEARNormalCLEARDayton Va Medical CenterComment on above: Performed By: #### UACSIND #### [facility] [address] [place] [address] Dr. Pio Velázquez (U)LT. YELLOWNormalYELLOWDayton Va Medical CenterComment on above:Performed By: #### UACSIND #### [facility] [address] [place] [address] Dr. Pio MackGlucose Ql (U)NegativeNormalNEGATIVEDayton Va Medical CenterComment on above:Performed By: #### UACSIND #### [facility] [address] [place] [address] Dr. Pio MackHemoglobin Ql (U)NegativeNormalNEGNorwalk Memorial Hospital Comment on above:Performed By: #### UACSIND #### [facility] [address] [address] [address] Pio Osheaones Ql (U)NegativeNormalNEGATIVEThe [facility] WestComment on above:Performed By: #### UACSIND #### [facility] [address] [place] [address] Dr. Pio MackLEUKOCYTESNegativeNormalNEGATIVEThe [facility] Cleveland WestComment on above:Performed By: #### UACSIND #### [facility] [address] [place] [address] Dr. Pio Barkertrite Ql (U)NegativeNormalNEGATIVEDayton Va Medical CenterComment on above:Performed By: #### UACSIND #### [facility] [address] [place] [address] Dr. Pio Posadas (U)7.5 [pH]Normal5-9The [facility] WestComment on above: Performed By: #### UACSIND #### [facility] [address] [place] [address] Dr. Pio MackSPEC GRAVITY1.215Fxnndx8.005-<=1.025The [facility] Hospital Cleveland WestComment on above:Performed By: #### UACSIND #### [facility] [address] [place] [address] Dr. Pio May PROTEINNegativeNormalNEGATIVE/ TRACEThe [facility] Comment on above:Performed By: #### UACSIND #### [facility] [address] [place] [address] Dr. Pio Rivera MICRO INDNOT INDICATEDNormalThRegency Hospital CompanyComment on above:Performed By: #### UACSIND #### [facility] [address] [place] [address] Dr. Pio Melgozagen Qn (U)0.2 {Polina'U}/dLNormal0.2 - 1.0The [facility] Cleveland WestComment on above:Performed By: #### UACSIND #### [facility] [address] [place] [address] Dr. Pio Quiñones ACOG PANEL 2: 30 to 65on 05-06-2022..NormalDayton Va Medical CenterComformerly [facility] on above:Result Comment: Performed at: WBPerformed By: #### [id number] #### [facility] [address] [place] [address] Dr. Pio Baer Gdln ACOG Zikwhlk44-59MgfpdeMfyOhioHealth Grady Memorial HospitalComment on above:Performed By: #### [id number] #### [facility] [address] [place] [address] Dr. Pio MackDIAGNOSIS:CommentMercy Health Clermont Hospital on above: Result Comment: NEGATIVE FOR INTRAEPITHELIAL LESION OR MALIGNANCY. Performed at: WBPerformed By: #### [id number] #### [facility] [address] [place] [address] Dr. Pio Milner AptimaNegativeNormalNegativeDayton Va Medical CenterComformerly [facility] on above:Result Comment: This nucleic acid amplification test detects fourteen high-risk HPV types (16,18,31,33,35,39,45,51,52,56,58,59,66,68) without differentiation. Performed at: =GPerformed By: #### [id number] #### [facility] [address] [place] [address] Dr. Pio Milner Genotype ReflexCommentCleveland Clinic Ak[facility] General Lodi HospitalComformerly [facility] on above:Result Comment: Criteria not met, HPV Genotype not performed. Performed at: WBPerformed By: #### [id number] #### [facility] [address] [place] [address] Dr. Pio MackMethodology:CommentMercy Health Clermont Hospital on above: Result Comment: This liquid based ThinPrep(R) pap test was screened with the use of an image guided system. Performed at: WBPerformed By: #### [id number] #### [facility] [address] [place] [address] Dr. Pio MackNote:CommentMercy Health Clermont Hospital on above:Result Comment: The Pap smear is a screening test designed to aid in the detection of premalignant and malignant conditions of the uterine cervix. It is not a diagnostic procedure and should not be used as the sole means of detecting cervical cancer. Both false-positive and false-negative reports do occur. . Performed at: WBPerformed By: #### [id number] #### [facility] [address] [place] [address] Dr. Pio MackPerformed by:CommentCleveland Clinic Akron General Lodi HospitalComformerly [facility] on above: Result Comment: Mary Anne Poe, Paper Mill Superintendent (ASCP) Performed at: WBPerformed By: #### [id number] #### [facility] [address] [place] [address] Dr. Pio MackSpecimen adequacy:CommentMercy Health Clermont [facility] on above:Result Comment: Satisfactory for evaluation. Endocervical and/or squamous metaplastic cells (endocervical component) are present. Performed at: WBPerformed By: #### [id number] #### [facility] [address] [place] [address] Dr. Pio Mack Vital Signs Date TimeVital SignValuePerforming ArkwulgnwEhukyldr89-63-1999 09:03-0400Body beqmig775.83 Juankapil Mike SERVICE SUPERINTENDENT-INTERNAL INVESTIGATOR-C Work Phone: 1(984)969-[address] [place], [place] 7182310-29-2025 09:03-0400 Body mass index (BMI) [Ratio]31.4 kg/t3LbyqzMigdalia Mike SERVICE SUPERINTENDENT-INTERNAL INVESTIGATOR-C Work Phone: 1(532)914-[address] [place], [place] 7182310-29-2025 09:03-0400 Body .36 kgriley Mike SERVICE SUPERINTENDENT-INTERNAL INVESTIGATOR-C Work Phone: 1(423)536-[address] [place], [place] 7182310-29-2025 09:03-0400 Diastolic blood skxyodxf01 mm[Hg]Migdalia Rashid SERVICE SUPERINTENDENT-INTERNAL INVESTIGATOR-C Work Phone: 1(336)965-[address] [place], [place] 7182310-29-2025 09:03-0400 Heart rate67 /Rahel Mike SERVICE SUPERINTENDENT-INTERNAL INVESTIGATOR-C Work Phone: [facility]10-29-2025 09:03-0400 Respiratory rate16 /minSarah Rashid SERVICE SUPERINTENDENT-INTERNAL INVESTIGATOR-C Work Phone: [facility]10-29-2025 09:03-0400 SaO2% (BldA) [Mass fraction]98 %Migdalia Mike SERVICE SUPERINTENDENT-INTERNAL INVESTIGATOR-C Work Phone: [facility]10-29-2025 09:03-0400 Systolic blood kojimqyc727 mm[Hg]Migdalia Mike SERVICE SUPERINTENDENT-INTERNAL INVESTIGATOR-C Work Phone: [facility]09-30-2025 10:58-0400 Body qusiot889.8 cmKatherine Romp PA Work Phone: [facility] [employer] [facility] Wnnoex27-93-1650 10:58-0400Body mass index (BMI) [Ratio]27.73 kg/c7Duptiudoi Romp PA Work Phone: [facility] CenterHighcon Flllkw60-39-1718 10:58-0400Body .39 kgKatherine Romp PA Work Phone: [facility] CenterIndependent [facility]09-30-2025 10:58-0400Diastolic blood uwydmlon55 mm[Hg]Abby Romp PA Work Phone: [facility] [employer] [facility] Niverz29-28-5293 10:58-0400Heart rate 62 /minKatherine Romp PA Work Phone: [facility] CenterIn[facility].09-30-2025 10:58-0400 Respiratory rate16 /minKatherine Romp PA Work Phone: [facility] CenterIn[facility].09-30-2025 10:58-0400Systolic blood stegimgr015 mm[Hg]Abby Romp PA Work Phone: [facility] [employer] [facility] Sqbyye30-80-6899 09:29-0400Body hokmyb829.6 cmMarc Dolce DPM FACFAS Work Phone: [facility] SystemFgtlegvvtl86-65-4250 09:29-0400Body mass index (BMI) [Ratio]33.81 kg/m2Maryusuf Charlton DPM FACFAS Work Phone: 1(868)[address] [place], [place] 5837409-24-2025 09:29-0400Body dykaoq04.36 kgMarc Latesha DPM FACFAS Work Phone: 1(448)[address] [place], [place] 5837409-24-2025 09:29-0400Diastolic blood mm[Hg]Bhanu Charlton DPM FACFAS Work Phone: 1(441)[address] [place], [place] 5837409-24-2025 09:29-0400Heart rate75 /min Bhnau Charlton DPM FACFAS Work Phone: 1(755)[address] [place], [place] 5837409-24-2025 09:29-0400Systolic blood oosvmhgz857 mm[Hg]Bhanu Charlton DPM FACFAS Work Phone: 1(916)[address] [place], [place] 5837408-18-2025 10:00-0400Body temperature 97.9 [degF]Ogjesus manuel Grant DDS Work Phone: met797-9133TayauQncafv13-272006HnfzyPivryw03-29-9116 10:00-0400Diastolic blood dtlzruku47 mm[Hg]Ogjesus manuel Grant DDS Work Phone: MetroHealthComment on above:ok for DC per Dr. Moralez, pt will take home BP cfcp92-95-8012 10:00-0400Heart ochn206 /minCatiaith Avinash-Romainjarodi DDS Work Phone: [phone]aNpyggv88-13-5792 10:00-0400Respiratory rate17 /minCatiaith Avinash-Romainhni DDS Work Phone: 1(766) [phone]wVffhda54-92-8072 10:00-7715RwU8% (BldA) [Mass fraction]94 %Ogjesus manuel Gongyulia DDS Work Phone: 1(813) [phone]pWnkbjp14-08-0147 10:00-0400Systolic blood gnncejbg426 mm[Hg]Og OakleyRomainmerlyn DDS Work Phone: MetroHealthComment on above:ok for DC per Dr. Moralez, pt will take home BP kmij04-57-0946 07:13-0400Body ysysmd013.1 cmLmarilu Grant DDS Work Phone: met011-8086JyjrhKqyqia54-634589LvifcCeysvz36-77-2227 07:13-0400Body mass index (BMI) [Ratio]30.29 kg/v8JoqzjOg Grant DDS Work Phone: 1(260) [phone]eXuatyh80-65-2024 07:13-0400Body omenko46.56 kg Og Grant DDS Work Phone: 1(645) [phone]hRjaczj18-17-0393 09:36-0400Body axiwbp245.6 cm Bhanu Charlton DPM FACFAS Work Phone: 1(631)[address]08-13-2025 09:36-0400Body mass index (BMI) [Ratio]33.81 kg/m2Marc Ivance DPM FACFAS Work Phone: 1(632)[address] [place], [place] 5837408-13-2025 09:36-0400Body bfboog52.36 kgMarc Dolce DPM FACFAS Work Phone: 1(671)[address] [place], [place] 5837408-13-2025 09:36-0400Diastolic blood xwjnflyc82 mm[Hg]Bhanu Charlton DPM FACFAS Work Phone: 1(382)[address] [place], [place] 5837408-13-2025 09:36-0400Heart rate72 /min Bhanu Charlton DPM FACFAS Work Phone: 1(106)[address] [place] [address]-13-2025 09:36-0400Systolic blood yfxdvaws851 mm[Hg]Bhanu Charlton DPM FACFAS Work Phone: 1(650)[address] [place], [place] 5837408-01-2025 14:39-0400Body mass index (BMI) [Ratio]30.44 kg/n6WydvbujeGlenn Chatman MD Work Phone: 1(996) [phone]tMhrisk46-18-3246 14:39-0400Body vjmmhhasblw56.81 [degF]Glenn Chatman MD Work Phone: 1(977) [phone]fIdiurg83-53-9461 14:39-0400Body aarnyn41.96 kg Glenn Chatman MD Work Phone: 1(961) [phone]zQoqbrs20-04-1881 14:39-0400Diastolic blood pgytewwc26 mm[Hg]Glenn Chatman MD Work Phone: 1(226) [phone]aVaaahz98-00-9442 14:39-0400Heart rate85 /min Glenn Chatman MD Work Phone: 1(410) [phone]uWqeejr95-02-8201 14:39-0400Respiratory rate18 /minEmmanjanice Chatman MD Work Phone: 1(824) [phone]fJtprko01-69-6714 14:39-0400Systolic blood bwtfkixa582 mm[Hg]Glenn Chatman MD Work Phone: 1(580) [phone]hBobdwj68-43-3531 10:32-0400Body kmbujj084.8 cm Linn Red MD Work Phone: [facility]07-15-2025 10:32-0400Body mass index (BMI) [Ratio]31.03 kg/c5BbxgcLinn Red MD Work Phone: [facility]07-15-2025 10:32-0400Body .28 kgLinn Red MD Work Phone: [facility]07-15-2025 10:32-0400Diastolic blood xubkaxis63 mm[Hg]Linn Red MD Work Phone: [facility]07-15-2025 10:32-0400Systolic blood tqaltlde520 mm[Hg]Linn Red MD Work Phone: [facility]07-01-2025 10:31-0400Body uhbsbz511.6 cmMarc Latesha BERNSTEIN FACFAS Work Phone: [facility] SystemTshzpyuguz20-81-5841 10:31-0400Body mass index (BMI) [Ratio]33.81 kg/m2Marc Dolce DPM FACFAS Work Phone: [facility] SystemTcikqbhzhg84-11-2514 10:31-0400Body igslev65.36 kgMaryusuf Charlton DPM FACFAS Work Phone: [facility] SystemMpdzfrrdsn25-42-4267 10:31-0400Diastolic blood mm[Hg]Bhanu Charlton DPM FACFAS Work Phone: [facility] SystemRlaswvooig40-52-8073 10:31-0400Heart rate70 /min Bhanu Charlton DPM FACFAS Work Phone: [facility] SystemGrxxarvznh68-61-4624 10:31-0400Systolic blood wyoierbs080 mm[Hg]Bhanu Charlton DPM FACFAS Work Phone: 1([phone] SystemBhuavusims35-32-3662 09:36-0400Body faawuo771.8 cmGrjuan carlos Haque SERVICE SUPERINTENDENT-CABLE CUTTER AND SWAGER Work Phone: [facility]06-19-2025 09:36-0400Body mass index (BMI) [Ratio]31.45 kg/u4Mffwnohhjuan carlos Haque SERVICE SUPERINTENDENT-CABLE CUTTER AND SWAGER Work Phone: [facility]06-19-2025 09:36-0400Body skjoys07.37 kgGrjuan carlos Haque SERVICE SUPERINTENDENT-CABLE CUTTER AND SWAGER Work Phone: [facility]06-19-2025 09:36-0400Diastolic blood ymoopaod45 mm[Hg]Eve Haque SERVICE SUPERINTENDENT-CABLE CUTTER AND SWAGER Work Phone: [facility]06-19-2025 09:36-0400Heart rate 69 /minJohanjuan carlos Haque SERVICE SUPERINTENDENT-CABLE CUTTER AND SWAGER Work Phone: [facility]06-19-2025 09:36-0400 Respiratory rate16 /minGrjuan carlos Haque SERVICE SUPERINTENDENT-CABLE CUTTER AND SWAGER Work Phone: [facility]06-19-2025 09:36-0400Systolic blood gozcdhnj515 mm[Hg]Eve Haque SERVICE SUPERINTENDENT-CABLE CUTTER AND SWAGER Work Phone: [facility]06-17-2025 14:12-0400Body wmwzag922.8 Martha Red MD Work Phone: [facility]06-17-2025 14:12-0400Body mass index (BMI) [Ratio]31.54 kg/a6QumboLinn Red MD Work Phone: [facility]06-17-2025 14:12-0400Body qjovju35.64 kgLinn Red MD Work Phone: [facility]06-17-2025 14:12-0400Diastolic blood obvliroh62 mm[Hg]Linn Red MD Work Phone: [facility]06-17-2025 14:12-0400Systolic blood mqhbdyhf703 mm[Hg]Linn Red MD Work Phone: [facility]06-17-2025 09:53-0400Body .6 cmMarc Dolce DPM FACFAS Work Phone: 1(324)[address] [place], [place] 5837406-17-2025 09:53-0400Body mass index (BMI) [Ratio]33.81 kg/m2Marc Dolce DPM FACFAS Work Phone: 1(350)[address] [place], [place] 5837406-17-2025 09:53-0400Body cvaaus15.36 kgMarc Dolce DPM FACFAS Work Phone: 1(516)[address] [place], [place] 5837406-17-2025 09:53-0400Diastolic blood vquwrhne09 mm[Hg]Bhanu Charlton DPM FACFAS Work Phone: 1(133)[address] [place], [place] 5837406-17-2025 09:53-0400Heart rate71 /min Bhanu Charlton DPM FACFAS Work Phone: 1(914)[address] [place], [place] 5837406-17-2025 09:53-0400Systolic blood ncwirxxj261 mm[Hg]Bhanu Charlton DPM FACFAS Work Phone: 1)[address] [place], [place] 5837405-28-2025 10:55-0400Body ckopek064.6 cmMarc Dolce DPM FACFAS Work Phone: 1(419)[address] [place], [place] 5837405-28-2025 10:55-0400Body mass index (BMI) [Ratio]33.81 kg/m2Marc Dolce DPM FACFAS Work Phone: 1(419)[address] [place], [place] 5837405-28-2025 10:55-0400Body ephlkj77.36 kgMarc Dolce DPM FACFAS Work Phone: 1(419)[address] [place], [place] 5837405-28-2025 10:55-0400Diastolic blood ywuuctkv36 mm[Hg]Bhanu Dolce DPM FACFAS Work Phone: 1(419)[address] [place], [place] 5837405-28-2025 10:55-0400Heart rate72 /min Bhanu Dolce DPM FACFAS Work Phone: 1(419)[address] [place], [place] 5837405-28-2025 10:55-0400Systolic blood wwiwmnkm846 mm[Hg]Bhanu Dolce DPM FACFAS Work Phone: 1(419)[address] [place], [place] 5837405-14-2025 10:23-0400Body xmardu417.6 cmMarc Dolce DPM FACFAS Work Phone: 1(419)[address] [place], [place] 5837405-14-2025 10:23-0400Body mass index (BMI) [Ratio]33.81 kg/m2Marc Dolce DPM FACFAS Work Phone: 1(419)[address] [place], [place] 5837405-14-2025 10:23-0400Body .36 kgMarc Dolce DPM FACFAS Work Phone: 1(419)[address] [place] [address]-14-2025 10:23-0400Diastolic blood mm[Hg]Bhanu Dolce DPM FACFAS Work Phone: 1(419)[address] [place], [place] 5837405-14-2025 10:23-0400Heart rate75 /min Bhanu Dolce DPM FACFAS Work Phone: 1(419)[address] [place], [place] 5837405-14-2025 10:23-0400Systolic blood yqnkaact514 mm[Hg]Bhanu Lovece DPM FACFAS Work Phone: 1(419)[address] [place], [place] 5837404-23-2025 13:33-0400Body islhri924.1 cmZaid Joshua SERVICE SUPERINTENDENT-CNM Work Phone: [facility]04-23-2025 13:33-0400Body mass index (BMI) [Ratio]32.05 kg/i2DbvviZaid Joshua SERVICE SUPERINTENDENT-CNM Work Phone: [facility]04-23-2025 13:33-0400Body javgox66.36 kgZaid Joshua SERVICE SUPERINTENDENT-CNM Work Phone: [facility]04-23-2025 13:33-0400Diastolic blood yujqvgxm26 mm[Hg]Zaid Joshua SERVICE SUPERINTENDENT-CNM Work Phone: [facility]04-23-2025 13:33-0400Systolic blood xkuuyifo978 mm[Hg]Zaid Joshua APRN-CNM Work Phone: [facility]04-14-2025 10:33-0400Body vytlyw543.6 cmAparveen Mike PA Work Phone: [facility] SystemKoquhwbzqs84-19-7278 10:33-0400Body mass index (BMI) [Ratio]33.81 kg/m2Valentina Mike PA Work Phone: [facility] SystemAyfftnrhoy75-09-9341 10:33-0400Body .36 kgValentina Mike PA Work Phone: [facility] SystemDhkhhtizss90-53-8580 10:33-0400Diastolic blood ooxijamv39 mm[Hg]Valentina Mike PA Work Phone: [place] [address]Mqszhrdqei04-37-2644 10:33-0400Heart rate73 /min Valentina Mike PA Work Phone: [place] [address]Siwkyfmlhj62-97-0046 10:33-0400Respiratory rate16 /minValentina Mike PA Work Phone: [place] [address]Xgkxgtlfdf37-31-0479 10:33-7563BxN7% (BldA) [Mass fraction]96 %Valentina Mike PA Work Phone: [facility] SystemRufvlkhlyi96-71-8979 10:33-0400Systolic blood szzqedvh935 mm[Hg]Valentina Mike PA Work Phone: [facility] SystemRbgmwobhiu27-12-2412 11:05-0500Body mass index (BMI) [Ratio]31.24 kg/r6BbvcphDamien Jones THREAD ROLLER Work Phone: [facility] SystemXccbuvfxyy16-57-2359 11:05-0500Body mnyezt28.56 kgDamien Jones THREAD ROLLER Work Phone: 1(405)256-[facility] SystemZzfqxzjigb22-12-4848 11:05-0500Diastolic blood mm[Hg]Damien Jones THREAD ROLLER Work Phone: 1(453)033-[facility] SystemWkwwztavnm48-33-9103 11:05-0500Heart rate84 /min Damien Jones THREAD ROLLER Work Phone: [facility] SystemStijeejfgr60-70-2609 11:05-0500Systolic blood zirejvtu684 mm[Hg]Damiendaksha Jones THREAD ROLLER Work Phone: 1(047)321-[facility] SystemPibojfydcu85-45-6105 09:30-0500Body rhfeka390.6 cmMarc Dolce DPM FACFAS Work Phone: [phone] SystemQhmeecasrf67-31-8482 09:30-0500Body mass index (BMI) [Ratio]31.58 kg/m2Marc Dolce DPM FACFAS Work Phone: 1(011)[address] [place], [place] 5837401-07-2025 09:30-0500Body wquqnj04.46 kgMarc Dolce DPM FACFAS Work Phone: 1(828)[address] [place], [place] 5837401-07-2025 09:30-0500Diastolic blood awimxaet00 mm[Hg]Bahnu Charlton DPM FACFAS Work Phone: 1(671)[address] [place], [place] 5837401-07-2025 09:30-0500Heart rate71 /min Bhanu Charlton DPM FACFAS Work Phone: 1(925)993-[address] [place], [place] [address]Qsafymidhs88-79-2972 09:30-0500Systolic blood mm[Hg]Bhanu Charlton DPM FACFAS Work Phone: 1(856)[address] [place], [place] 5837412-11-2024 09:00-0500Body vakeyh481.1 cmCatherkeshawn Denton SQHsglyTumfhp27-13-2182 09:00-0500Body mass index (BMI) [Ratio]31.72 kg/y5Gfaeidpthkeshawn Denton HDQinluDcrejp91-98-0723 09:00-0500Body frurjh18.46 kgCatindia Denton CWIqlpkYyiqkf70-92-5554 09:17-0400Body zcyzczhwlbg33.2 [degF]Micaela VELEZ Work Phone: [phone]8-153918UazqpOlyvjw41-37-4126 09:17-0400Respiratory rate0 /min Micaela VELEZ Work Phone: [phone]43955YqpkgMmejig35-40-1852 09:16-0400Diastolic blood mm[Hg]Micaela VELEZ Work Phone: [phone]51569QumjvYtsoai20-55-0679 09:16-0400Heart rate84 /min Micaela VELEZ Work Phone: [phone]80668YmujpGzlrie57-18-1950 09:16-7447LwN0% (BldA) [Mass fraction]95 %Micaela VELEZ Work Phone: [phone])[phone]06524LpdqtEemtgx23-60-9358 09:16-0400Systolic blood ankisdad399 mm[Hg]Micaela VELEZ Work Phone: 1(502) [phone]RhssxEmmmph64-92-3636 09:19-0400Body ivloie105.6 cm Bhanu Charlton DPM FACFAS Work Phone: [facility] SystemTpmcboukpd50-66-1876 09:19-0400Body mass index (BMI) [Ratio]31.58 kg/m2Marc Dolce DPM FACFAS Work Phone: [facility] SystemAuoeudltsi35-14-3882 09:19-0400Body smhqru53.46 kgMarc Dolce DPM FACFAS Work Phone: [facility] SystemXakelaktcv52-60-3344 09:19-0400Diastolic blood iqynbxlh38 mm[Hg]Bhanu Charlton DPM FACFAS Work Phone: [facility] SystemQtgbrohelm04-51-2759 09:19-0400Heart rate68 /min Bhanu Charlton DPM FACFAS Work Phone: [facility] SystemYixdvggktg37-26-3404 09:19-0400Systolic blood mm[Hg]Bhanu Charlton DPM FACFAS Work Phone: [facility] SystemCmqtfwmvxz45-75-9754 09:37-0400Diastolic blood hgtamycb45 mm[Hg]Case Melchor MD Work Phone: [facility]09-05-2024 09:37-0400Heart rate 65 /minCase Melchor MD Work Phone: [address] [place], [place] 6483409-05-2024 09:37-0400Systolic blood rdemaxst702 mm[Hg]Case Melchor MD Work Phone: [facility]09-05-2024 09:34-0400Body innlxn47.46 kgCase Melchor MD Work Phone: [facility]06-15-2024 22:14-0400Diastolic blood etbvsrzt25 mm[Hg]IMAN Pathakney Saffle Work Phone: [facility]06-15-2024 22:14-0400 Heart rate85 /minBLANCASherlyn Venita Saffle Work Phone: [facility]06-15-2024 22:14-0400 Respiratory rate22 /minAPRSherlyn Venita Saffle Work Phone: [facility]06-15-2024 22:14-0400 SaO2% (BldA) [Mass fraction]100 %SERVICE SUPERINTENDENT Venita Saffle Work Phone: [facility]06-15-2024 22:14-0400 Systolic blood tsosenuq232 mm[Hg]SERVICE SUPERINTENDENT Venita Saffle Work Phone: [facility]06-15-2024 19:54-0400 Body heplzx387.83 cmAPRSherlyn Venita Saffle Work Phone: [facility]06-15-2024 19:54-0400 Body reclxxwyuru28.2 [degF]IMAN Nathan Saffle Work Phone: [facility]06-15-2024 19:54-0400 Body kgAPRSherlyn Nathan Saffle Work Phone: [facility]06-06-2024 14:10-0400 Diastolic blood ychvnjtb19 mm[Hg]Case Melchor MD Work Phone: [facility]06-06-2024 14:10-0400Heart rate 75 /minCase Melchor MD Work Phone: [facility]06-06-2024 14:10-0400Systolic blood vouvpsml519 mm[Hg]Case Melchor MD Work Phone: [facility]06-06-2024 14:07-0400Body wqplwy77.74 kgCase Melchor MD Work Phone: [facility]06-06-2024 14:07-8143OlA1% (BldA) [Mass fraction]100 %Case Melchor MD Work Phone: [facility]04-10-2024 12:00-0400Body tygdxzitfnd93.3 [degF]IMAN Nathan Saffle Work Phone: [facility]04-10-2024 12:00-0400 Diastolic blood tmtaamuv70 mm[Hg]IMAN Nathan Saffle Work Phone: [facility]04-10-2024 12:00-0400 Heart rate82 /minIMAN Nathan Saffle Work Phone: [facility]04-10-2024 12:00-0400 Respiratory rate18 /minIMAN Nathan Saffle Work Phone: [facility]04-10-2024 12:00-0400 SaO2% (BldA) [Mass fraction]98 %IMAN Nathan Saffle Work Phone: [facility]04-10-2024 12:00-0400 Systolic blood exozvrrn757 mm[Hg]IMAN Nathan Saffle Work Phone: [facility]04-10-2024 06:00-0400 Body kgAPRSherlyn Francoisfle Work Phone: [facility]04-08-2024 12:46-0400 Body uzixnn404.1 cmAPRSherlyn Francoisfle Work Phone: [facility]04-07-2024 16:36-0400 Diastolic blood syenutkt23 mm[Hg][facility]04-07-2024 16:36-0400Systolic blood vftbvffy300 mm[Hg][facility] 05-29-2023 15:48-0400Body rwiogtefsdl19.1 [degF][facility]04-07-2024 15:48-0400Heart rate90 /[facility] 05-29-2023 15:48-0400Respiratory rate18 /[facility] 05-29-2023 15:48-8585NfL5% (BldA) [Mass fraction]96 %[facility]04-07-2024 13:05-0400Body uzckxa498.1 cm[facility] 05-29-2023 13:05-0400Body qzxfyn41.6 kgPe[facility] Encounters Encounter DateEncounter TypeCare ProviderFacilityStart: 12-19-2024 End: 67-94-0726nskyyfqpkjXYL [facility]Start: 12-19-2024 End: 51-08-8717Myjhhpv encounter Sarah Mike APRN-FNP-C-[facility] Work Phone: Start: 11-20-2024 End: 98-90-2042Ngqsahvuk encounterSally von Mati [facility] OncologyStart: 11-20-2024 End: 01-10-4930Wohbjd outpatient visit 25 minutesKatherkeshawn Recinos Merna PYLE Work Phone: [facility] Surgical OncologyComment on above:Cellulitis of right breast (Primary Dx)Start: 11-20-2024 End: 30-00-2892lczkuluvwjFHABQFVFM H ROMPProMedica Keenan Private Hospitaltart: 11-14-2024 End: 60-32-4179Qwhruv flowsheetMarc D Dolce DPM FACFAS Work Phone: [facility]: 11-14-2024 End: 75-89-2746Xjkeuo flowsheetMarc D Dolce DPM FACFAS Work Phone: [facility] Hospitaltart: 11-14-2024 End: 38-71-5509Unxwpvc encounter procedureMarc D Dolce DPM FACFAS Work Phone: [facility] PODComment on above:Onychomycosis (Primary Dx); Pain in left toe(s); Pain in right toe(s)Start: 11-14-2024 End: 55-53-8234weozzcbyaaZVPR D DOLCENot AvailableStart: 65-84-3886yytetctkbx OG GONGIFacility:METROHealthStart: 10-08-2024 End: 59-95-6296kgrjohqahzQLOGS AL-MASHNIFacility:METROHealthStart: 10-08-2024 End: 15-95-3562Jzutmmk encounter procedureOg Grant DDS Work Phone: [facility] DentistryStart: 10-08-2024 End: 67-66-7274Osyhzrsxch hospital visit by physicianOg Grant DDS Work Phone: metZipanoAtrium Health Ambulatory SurgeryStart: 10-05-2024 End: 93-96-0624Anrbmdkzv encounterAlvin Garcia RNMetroHealth Pre-Admission TestingComment on above:Dental (DD adult dental restorations 10/08/24 under [place] at [place]. PAT completed 09/21/24. Consents obtained from Guardian Jessica Houston. KIM RN spoke to Yazmin MARES at [facility] on 10/05/24. Confirmed NPO after 2199. [place] address [id number] [place] [address]. 0630 [facility] time. [facility] DOS./)Start: 10-03-2024 End: 68-02-5776Xlnxoy flowsheetMarc D Dolce DPM FACFAS Work Phone: [facility]oms [facility] HospitalwnStart: 10-03-2024 End: 51-37-0201Ypnlmq flowsheetMarc D Dolce DPM FACFAS Work Phone: [facility]oms [facility] Hospitaltart: 10-03-2024 End: 14-93-2641Hqbxvemwb encounterJulienne Ty RNMetroHealth Pre-Admission TestingStart: 10-03-2024 End: 69-90-1527Yzqqss outpatient visit 15 minutesMarc D Dolce DPM FACFAS Work Phone: noms [facility] PODComment on above:Exostosis of right foot (Primary Dx); Other enthesopathy of right foot and ankleStart: 10-03-2024 End: 96-05-6138ioxzjabgkkEZYI D DOLCENot AvailableStart: 09-28-2024 End: 57-21-2661Xaizmxbtu encounterJulienne Ty RNMetroHealth Pre-Admission TestingStart: 85-18-0771bkituslrooOWDCQUID BOAKYEFacility:METROHealthStart: 09-21-2024 End: 46-64-5846Wdmipw outpatient new 45 minutesGlenn Chatman MD Work Phone: Met[facility] Pediatric Comprehensive CareComment on above:Pre-op evaluation (Primary Dx); Body mass index (BMI) 30.0-30.9, adultStart: 09-21-2024 End: 30-22-7023Fctfckbczwuya examination doneGlenn Chatman MD Work Phone: [facility] Work Phone: Start: 09-04-2024 End: 24-01-2476Krusev outpatient visit 15 minutesComita Red MD Work Phone: [facility]etric[facility]/GynecologyComment on above:Mastodynia, female (Primary Dx)Start: 09-04-2024 End: 20-08-0240civxbbycehGJXPZGarfield County Public Hospital Ambulatory PPGStart: 08-23-2024 End: 04-55-5973coonlfjqqkPeftsl A [facility] Work Phone: Start: 08-23-2024 End: 11-31-5183Wohtcwet ReferredGulf Breeze Hospital DO-LAB [facility] Start: 08-21-2024 End: 71-41-3479Xtoqsc flowsheetMarc D Dolce DPM FACFAS Work Phone: noms ASC PODStart: 08-21-2024 End: 40-00-1399Ygtxdg flowsheetMarc D Dolce DPM FACFAS Work Phone: noms [facility] PODStart: 08-21-2024 End: 36-74-4564Mdnjjs outpatient visit 15 minutesMarc D Dolce DPM FACFAS Work Phone: noms [facility]MA PODComment on above:Exostosis of right foot (Primary Dx); Other enthesopathy of right foot and ankle; Right foot painStart: 08-21-2024 End: 26-23-7654afaiwijhueXHED D DOLCENot AvailableStart: 08-09-2024 End: 90-94-2640tuqjinvawiCRQKWUniversity Hospitals Health System HospitalStart: 08-09-2024 End: 74-28-7775Uhvcbq outpatient new 30 minutesEve Haque SERVICE SUPERINTENDENT-CABLE CUTTER AND SWAGER Work Phone: [facility] Surgical OncologyComment on above:Mass of right breast, unspecified quadrant (Primary Dx); Breast skin changes; Mastodynia, femaleStart: 08-09-2024 End: 23-70-6343ljecgcqkouIBZSIGHTEmily Ni [facility] HospitalStart: 08-08-2024 End: 93-20-5396Jqyptnsag to same day surgery centerMitaylor Black DDS Work Phone: [facility] DentistryStart: 08-07-2024 End: 39-63-9654Yzztpq outpatient visit 15 minutesLinn Red MD Work Phone: [facility] Obstetrics/GynecologyComment on above:Mastodynia, female (Primary Dx); Mass of right breast, unspecified quadrantStart: 08-07-2024 End: 74-51-0249prvkhgmtjpFQRAZNYU [facility] Ambulatory PPGStart: 08-07-2024 End: 74-68-0834Ibraji flowsheetMarc D Dolce DPM FACFAS Work Phone: [facility] PODStart: 08-07-2024 End: 97-88-6547Xtmzat flowsheetMarc D Dolce DPM FACFAS Work Phone: [facility] PODStart: 08-07-2024 End: 35-99-2890Yuklxs outpatient visit 15 minutesMarc D Dolce DPM FACFAS Work Phone: [facility] NMA PODComment on above:Exostosis of right foot (Primary Dx); Other enthesopathy of right foot and ankle; Pain in right toe(s); Right foot pain; Onychomycosis; Pain in left toe(s)Start: 08-07-2024 End: 60-36-8537syrcwehapvZGOX D DOLCENot AvailableStart: 07-18-2024 End: 58-53-8632Cruqtd flowsheetMarc D Dolce DPM FACFAS Work Phone: [phone] PODStart: 07-18-2024 End: 18-79-1381Hdkaxp flowsheetMarc D Dolce DPM FACFAS Work Phone: [phone] PODStart: 07-18-2024 End: 38-11-1076Xskuak outpatient visit 15 minutesMarc D Dolce DPM FACFAS Work Phone: noMS NMA PODComment on above:Abscess, toe, left (Primary Dx); OnychocryptosisStart: 07-18-2024 End: 78-07-3679vraqolxivkUKWA D DOLCENot AvailableStart: 2024 End: 82-47-1291Bjggka flowsheetMarc D Dolce DPM FACFAS Work Phone: [facility] ASC PODStart: 2024 End: 57-58-0676Ejoyze flowsheetMarc D Dolce DPM FACFAS Work Phone: NOGF ASC PODStart: 2024 End: 19-34-0798Djqmkq outpatient visit 15 minutesMarc D Dolce DPM FACFAS Work Phone: noms NMA PODComment on above:Onychocryptosis (Primary Dx); Pain in left toe(s); Abscess, toe, leftStart: 2024 End: 75-77-3766celrbccetaOCPZ D DOLCENot AvailableStart: 06-13-2024 End: 04-80-8445Bwsbdn pelvic examinationZaid Joshua IMAN-JEANNINEM Work Phone: [facility] Work Phone: Start: 06-13-2024 End: 32-33-2911Cujqixl encounter procedureZaid Joshua IMAN-CNM Work Phone: [facility] Physicians Obstetrics/GynecologyComment on above:Encounter for breast and pelvic examination (Primary Dx)Start: 06-13-2024 End: 28-27-2741ouubijjjeiOKINP [facility] Ambulatory PPGStart: 00-93-3718Yuerlilbf for gynecological examination (general) (routine) without abnormal findingsOKCASSIEKaleida Health Ambulatory PPGStart: 06-04-2024 End: 09-96-8031Yeuish Yesenia PYLE Work Phone: aNA SALUEStart: 06-04-2024 End: 54-03-3619Hegywirosalia PYLE Work Phone: aNA DANICAEVUEStart: 06-04-2024 End: 29-84-0287Leppbo outpatient visit 15 minutesPamelaanay Rashid PA Work Phone: aNA BELLEVUEComment on above:Convulsions, unspecified convulsion type (CMS/HCC) (Primary Dx); Hyponatremia; Developmental delay; Anger reactionStart: 06-04-2024 End: 41-79-3113svzbdkguhsNVIT HILLNot AvailableStart: 05-08-2024 End: 63-34-6895dkehheztfeMBPC D DOLCENot AvailableStart: 02-29-2024 End: 31-62-7726Ynrjxl Margoth Jones THREAD ROLLER Work Phone: aNA BELLEVUEStart: 02-29-2024 End: 13-59-0782Muwexurosalia Jones THREAD ROLLER Work Phone: ANA BELLEVUEStart: 02-29-2024 End: 01-10-2458Aezite outpatient visit 25 minutesDamien Jones THREAD ROLLER Work Phone: aNA BELLEVUEComment on above:Convulsions, unspecified convulsion type (CMS/HCC) (Primary Dx); Hyponatremia; Developmental delay; Anger reactionStart: 02-29-2024 End: 76-95-5198wriyngxdcbIIEVZG MORRISNot AvailableStart: 02-28-2024 End: 04-30-7109Azrdce flowsheetMarc D Dolce DPM FACFAS Work Phone: [facility] PODStart: 02-28-2024 End: 66-99-1140Vtfwnx flowsheetMarc D Dolce DPM FACFAS Work Phone: [facility] PODStart: 02-28-2024 End: 58-45-5673Hjjtygo encounter procedureMarc D Dolce DPM FACFAS Work Phone: [facility] NMA PODComment on above:Onychomycosis (Primary Dx); Pain in right toe(s); Pain in left toe(s)Start: 02-28-2024 End: 75-09-3955uijvtsmqdhCBOU D DOLCENot AvailableStart: 02-23-2024 End: 87-84-3728Dwkynsp encounter procedureJennifer Altagracia MEHTA Work Phone: [facility]Start: 02-23-2024 End: 22-08-9094gpogpywhlkFXCNKBZ PROVIDERFacility:[facility] HospitalStart: 02-14-2024 End: 55-45-6303Qkyeovkwx encounterJusujit Sanchez RNCleveland Clinic Mercy Hospital Pre-Admission TestingStart: 02-01-2024 End: 21-77-6848Zrlqpgm evaluation of patient and reportPenny Denton RN [facility] Pre-Admission TestingComment on above:Pre-op evaluation (Primary Dx)Start: 02-01-2024 End: 27-85-7733Oyzybsejvhpox examination doneCatindia Denton RNCleveland Clinic Mercy Hospital Start: 34-91-7951ydgbjdxjvcAMNPYDP PROVIDERFacility:[facility] HospitalStart: 02-01-2024 Encounter for other preprocedural examinationUNKNOWN PROVIDERThe [facility] SystemStart: 01-07-2024 End: 83-17-6116Elspdx encounterMetroHealthStart: 12-15-2023 End: 60-75-4453pitldtqzxtPVXLYS GJINIFacility:[facility] HospitalStart: 12-15-2023 End: 25-51-6076Amxskvanhh Saira Florez MD Work Phone: [facility] HospitalStart: 12-15-2023 End: 66-92-8629Dtwgfyq encounter procedureMarleni Alejandro DDS Work Phone: [facility] HospitalComment on above:Caries (Primary Dx)Start: 12-09-2023 End: 52-54-1507Faeqpk flowsheetNatalie A Felter SERVICE SUPERINTENDENT-CABLE CUTTER AND SWAGER Work Phone: noMS SWS DERMStart: 12-09-2023 End: 53-09-7807Pzsaxa flowsheetNatalie A Felter SERVICE SUPERINTENDENT-CABLE CUTTER AND SWAGER Work Phone: noms SWS DERMStart: 12-09-2023 End: 91-86-1357Feornp outpatient new 30 minutesNatalie A Felter SERVICE SUPERINTENDENT-CABLE CUTTER AND SWAGER Work Phone: noms SWS DERMComment on above:Lip licking dermatitis Start: 12-09-2023 End: 84-07-8019gsfwpmnubiBZJNHAR A FELTERNot AvailableStart: 11-23-2023 End: 06-18-9771Svvftqely encounterMeldeep Webblos RNMetroHealth Pre-Admission TestingComment on above:PAT (Anesthesia consent obtained)Start: 11-23-2023 ambulatoryUNKNOWN PROVIDERFacility:METROHealthStart: 11-09-2023 End: 42-21-8371Bepqfn flowsheetMarc D Dolce DPM FACFAS Work Phone: [facility] PODStart: 11-09-2023 End: 49-86-9397Crsouq flowsheetMarc D Dolce DPM FACFAS Work Phone: [facility] PODStart: 11-09-2023 End: 25-66-7200Npphezw encounter procedureMarc D Dolce DPM FACFAS Work Phone: noms NMA PODComment on above:Onychomycosis (Primary Dx); Pain in right toe(s); Pain in left toe(s)Start: 10-27-2023 End: 68-59-5538Aczihv outpatient visit 25 minutesCase Melchor MD Work Phone: [facility] Comment on above:Hyponatremia (Primary Dx)Start: 10-19-2023 End: 54-73-0246Aibkngb encounter Ellen Veronica DDS Work Phone: [facility] HospitalComment on above:Caries (Primary Dx)Start: 12-96-8884zsnthcmgzcRJWO GOODMAN Facility:METROHealthStart: 08-06-2023 End: 98-62-6917Rfyvqlilz department patient visitIMAN Amanda Work Phone: [facility]-Emergency [facility] Work Phone: Start: 08-01-2023 End: 29-25-4385Gtxjbkigs encounterScanning Provider ExternalPHN [facility] CenteroStart: 07-28-2023 End: 76-99-2415Sxsojm outpatient new 45 Lazara Melchor MD Work Phone: T [facility] Comment on above:Hyponatremia (Primary Dx)Start: 05-30-2023 End: 37-89-4949Clqkotziom and management of inpatientAPRN Venita Amanda Work Phone: [facility] Work Phone: Start: 43-94-1119Xdiupqmasr and management of inpatientS[facility] Work Phone: Start: 73-46-9612qupumlevncn encounterNON STAFF [facility] Work Phone: Start: 05-29-2023 End: 78-56-7611Gvu-patient / Non-visitFircjw medical center Physician Group-[facility] Med OutPt Work Phone: Start: 76-29-9012Yetkao Michelle Melchor MD Work Phone: X [facility] Comment on above:Hyponatremia (Primary Dx)Start: 04-13-2023 End: 77-71-0496ldcdbnycpxYUANEA HERRINGFacility:FTMCStart: 04-13-2023 End: 65-30-9135Vfa Drop offDANIEL MUÑOZ [facility] Start: 02-23-2023 End: 81-71-9635Nut Drop offDANIEL MUÑOZ [facility] Start: 02-23-2023 End: 95-61-5449duyjotmrheNOSTSP HERRINGFacility:FTMCStart: 18-48-4605yuqgdemmfv DR LIO A HERRINGFacility:H0Hzmwm: 06-10-2022 End: 89-71-7402Felnrkh encounter procedureElivesna Albarran DDS Work Phone: [facility] DentistryStart: 05-17-2022 End: 84-06-3624xtmyicknlsSU DANIEL A HERRINGFacility:J0Vzfrh: 04-28-2022 End: 00-19-1455oezkppayltSC SONAL CARRERO .Facility:I8Mnovd: 05-21-3917Hqycuh encounterMetroHealthStart: 05-08-2018 End: 87-66-3375Tayetjy encounter procedurePROVIDER NOT IN [facility] Procedures DateProcedureProcedure DetailPerforming ClinicianStart: 79-72-6964Wkneli-up visitFollow-upKATHERINE H ROMPStart: 69-84-6497Drzbu test visual color felipe Black DDS Work Phone: Start: 82-79-4253Jfnskt-up visitFollow-upCORIAnay Almazan KOVACHStart: 04-26-0121Kturocvcsaq observation [Identifier] in Cervix by Cyto Yvette MONTANEZ Work Phone: Start: 01-17-4136PMTF-CoV-2, Influenza & RSV (PCR)IMAN Amanda Work Phone: Start: 11-47-0288NS of facial bones with contrast Start: 59-40-3522Vjsah culture for bacteria, including anaerobic screenAPRSherlyn Amanda Work Phone: Plan of Treatment DateCare ActivityDetailAuthorStart: 68-03-6288Ernzazxv (RZV) Vaccine (1 of 2) Shingles (RZV) Vaccine (1 of 2)MetroHealthStart: 68-33-7704LOkN,Tdap and Td Vaccines (7 - Td or Tdap)DTaP,Tdap and Td Vaccines (7 - Td or Tdap)[facility] Oncology SystemStart: 04-73-8437Izgcwtl vaccinationTetanus (Td or Tdap) Booster MetroHealthStart: 78-55-7733Cpfymhukx for malignant neoplasm of cervixPap Smear [facility] Hospitaltart: 91-00-6114Pquhr BMI ScreeningAdult BMI Screening [facility] Hospitaltart: 34-11-3494Uesdvlb ScreeningTobacco Screening [facility] Hospitaltart: 16-88-4746Bilkd BMI ScreeningAdult BMI Screening [facility] SystemStart: 26-55-9851Wblubuq ScreeningTobacco Screening [facility] Hospitaltart: 47-51-8259Rajnr BMI ScreeningAdult BMI Screening [facility] Hospitaltart: 57-92-2877Ywyvicp ScreeningTobacco Screening [facility] Hospitaltart: 19-65-0785Okvst BMI ScreeningAdult BMI Screening [facility] Hospitaltart: 23-44-6881Uynmkne ScreeningTobacco Screening [facility] Hospitaltart: 01-30-2025 End: 74-94-8522Fulyszj encounter /10/2025 9:10 AM EST Procedure Visit [facility] [address] [facility] [place] [address] Bhanu Charlton, DPM FACFAS [address] [place] [address] [facility] NMA PODStart: 85-36-1283Qqugbuphn vaccinationInfluenza Vaccine (#1)MetroHealthStart: 11-20-2024 End: 28-10-8000Kcyvcoy encounter agofuirfn86/30/2025 11:00 AM EDT Office Visit [facility] [address] [phone] Abby Bauman PA [address] [place] [phone] [facility] OncologyStart: 11-14-2024 End: 10-45-6110Mymjflw encounter procedureNOMS NMA PODComment on above:Arrived Start: 11-06-2024 End: 50-83-2333Jifgmqj encounter zdemdkaza11/16/2025 9:40 AM EDT Procedure Visit [facility] [address] [facility] [place] [address] Bhanu Charlton, DPM FACFAS [address] [place] [address] [facility] Start: 91-33-3226Bnttisgor vaccinationMercy Health St. Rita's Medical Centerca [facility] SystemStart: 10-17-2024 End: 90-75-0190Meoniil encounter wdxdtehik47/27/2025 8:40 AM EDT Office Visit [facility] [address] [phone] Migdalia Mike, DIOGO [address] [place] [address] [facility] VIRAMONTESYStart: 10-08-2024 End: 83-20-9640Cfmdwiofu to same day surgery [facility] Ambulatory SurgeryComment on above:DENTAL RESTORATIONSStart: 10-08-2024 End: 09-44-1966UJPIHN RESTORATIONSMetroHealthStart: 86-63-9086Xovsjqnsty hospital visit by physicianF[facility] Ambulatory SurgeryStart: 10-08-2024 End: 34-71-2668Yrvyvuz encounter hfnvkmytb59/18/2025 6:30 AM EDT Procedure Visit [facility] [address] [place] [address] Og Grant, DDS [address] [place], [place] [id number] [facility] DentistryStart: 10-03-2024 End: 58-04-3476Miaccqil Zoxzktd2610/03/2024 9:30 AM EDT Clinical Support [facility] [address] [facility] [place] [address] Bhanu Charlton, DPM FACFAS [address] [place] [address] ArrivedNOCT DA PODComment on above:ArrivedStart: 09-04-2024 End: 40-49-0846Yyscxbv encounter hzgucodnu69/15/2025 10:00 AM EDT Office Visit [facility] [address] [address] Linn Red MD [address] [place] [address] [facility] Ob[facility]etrics/GynecologyStart: 08-27-2024 End: 29-02-4734Ogjwlli encounter sqnbsezim01/07/2025 10:20 AM EDT Office Visit [facility] [place] [address] [place] [address] Valentina Mike PA [address] [place] [address] [facility] GOFFtart: 42-00-8651SgfavSelect Medical Specialty [facility] Start: 85-32-2768Vcwrdxgb identified in Urine by CultureAdena Regional Medical Centertart: 08-21-2024 End: 11-26-9612Hgjjublh SupportNorthern Texas Foot & Ankle SpecialistsComment on above:ArrivedStart: 08-07-2024 End: 38-06-1295JR Breast duct - right Views W contrast intra ductMammography diagnostic unilateral right with CAD Imaging Routine Mastodynia, female Mass of right breast, unspecified quadrant Expected: 08/07/2024, Expires: 08/07/2025 [facility] Work Phone: Comment on above:Expected: 08/07/2024, Expires: 08/07/2025Start: 08-07-2024 End: 23-52-4798VU Breast - bilateral WO and W contrast IVMR bilateral breast with and without contrast with CAD Imaging Routine Mastodynia, female Mass of ri ght breast, unspecified quadrant Expected: 08/07/2024, Expires: 08/07/2025 [facility] SystemComment on above:Expected: 08/07/2024, Expires: 08/07/2025Start: 08-07-2024 End: 44-47-0844QP Breast - right limitedUltrasound breast limited right Imaging Routine Mastodynia, female Mass of right breast, unspecified quadrant Expected: 08/07/2024, Expires: 08/07/2025[facility] SystemComment on above:Expected: 08/07/2024, Expires: 08/07/2025Start: 08-07-2024 End: 70-11-3724Cbkxdox encounter procedureNOMS NMA PODComment on above:Arrived Start: 07-18-2024 End: 17-69-2066Iettnai encounter procedureNOMS NMA PODComment on above:Arrived Start: 2024 End: 81-24-4700Mzuqtzr encounter /14/2025 10:20 AM EDT Office Visit [facility] [address] [facility] [place] [address] Ioxhu, Marc D, DPM FACFAS [address] [place] [address] ArrivedNOMS NMA PODComment on above:ArrivedStart: 06-04-2024 End: 48-85-3909Avintjx encounter qkyfnsied54/14/2025 10:40 AM EDT Office Visit [facility] GARCIA [address] [place] [phone] Valentina Mike PA [address] [place], [place] [phone] ArrivedGHULAM GARCIAComment on above:ArrivedStart: 05-17-2024 End: 40-41-5711Hycyunl encounter cmgaarexk49/27/2025 8:40 AM EDT Office Visit [facility] GARCIA [address] [place] [address] Damien Jones NP [address] [place], [place] [address] [facility] GOFFtart: 05-08-2024 End: 52-62-6688Fdybzjw encounter nfzpevfqj57/18/2025 9:30 AM EDT Procedure Visit [facility] [address] [place] [address] Bhanu Charlton, DPM FACFAS [address] [place] [address] [facility] NMA PODStart: 02-29-2024 End: 35-70-3976Zbawgur encounter procedureNOMS [facility] ROUTEComment on above:ArrivedStart: 02-28-2024 End: 11-32-3327Qraqdet encounter procedureNOMS NMA PODComment on above:Arrived Start: 02-23-2024 End: 44-52-7556Vgblgbl encounter ajuvpfbyb81/02/2025 10:50 AM EST Procedure Visit [facility] [address] [place] [address] Sabra Frias DMD [address] [place] [address] [facility] Start: 02-01-2024 End: 99-79-6316Vdcbjcv evaluation of patient and haxisv4102/01/2024 9:00 AM EST Nurse Visit [facility] Pre-Admission Testing [address] [place] [address] Penny Denton RN [address] [place], [place] [address]MlyfsZtlpmpFayette County Memorial Hospital Pre-Admission TestingStart: 12-15-2023 End: 59-53-8214Nohcmax encounter gdjhlxpik76/24/2024 12:00 PM EDT Procedure Visit [facility] [address] [place] [address] Sabra Frias DMD [address] [place] [address] [facility] Start: 12-09-2023 End: 95-26-1834Ajieeza encounter gnkzkncby33/18/2024 12:40 PM EDT Office Visit [facility] [address] [place] [address] Tylerlizeth Ivory Gates, IMAN-CABLE CUTTER AND SWAGER [address] [place] [address] ArrivedNOMS SWS DERMComment on above: ArrivedStart: 81-37-3406Nvohdycpw vaccinationInfluenza Vaccine (#1)[facility] Start: 10-27-2023 End: 59-47-0888Vdyxylh encounter dyunkcugm48/05/2024 9:30 AM EDT Office Visit [facility] [place] [address] [place] [address] Case Melchor MD [address] [place] [phone] [facility] Enterprisetart: 40-37-6674CCZEE-19 Vaccine ( season)COVID-19 Vaccine ( season)[facility]HealthStart: 10-23-2023 COVID-19 Vaccine ( season)COVID-19 Vaccine ( season) [facility]HealthStart: 30-08-6149Crosgrxii vaccinationMetroHealthStart: 00-94-4116CY of head without contrastCT head/brain wo [facility] Start: 17-71-0592JH Unspecified body region WO contrastOhioHealth Mansfield Hospitaltart: 08-70-7605Demjqdsyml radiography of abdomenOhioHealth Mansfield Hospitaltart: 45-45-9422Iwltmenx identified in Urine by Culture [facility] Hospitaltart: 07-28-2023 End: 09-68-9726Jmnqaxp encounter fgtzospns48/06/2024 2:30 PM EDT Office Visit [facility] [address] [place] [address] Case Melchor MD [address] [place] [address] [facility] FremontStart: 07-28-2023 End: 74-65-7676ZntmeywlPruvisfp Lab Routine Hyponatremia Expected: 07/28/2023 (Approximate), Expires: 07/20/2024[facility] Work Phone: Comment on above:Expected: 07/28/2023 (Approximate), Expires: 07/20/2024Start: 07-28-2023 End: 93-04-0518Ljqohhrury of Serum or PlasmaOsmolality Lab Routine Hyponatremia Expected: 07/28/2023 (Approximate), Expires: 07/20/2024[facility] Comment on above:Expected: 07/28/2023 (Approximate), Expires: 07/20/2024Start: 07-28-2023 End: 87-12-3909Cpkmrvgwfu, urineOsmolality, urine Lab Routine Hyponatremia Expected: 07/28/2023 (Approximate), Expires: 07/20/2024[facility] Comment on above:Expected: 07/28/2023 (Approximate), Expires: 07/20/2024Start: 07-28-2023 End: 12-83-5139UCF with ReflexTSH with Reflex Lab Routine Hyponatremia Expected: 07/28/2023 (Approximate), Expires: 07/20/2024[facility] CenterComment on above:Expected: 07/28/2023 (Approximate), Expires: 07/20/2024Start: 07-28-2023 End: 89-84-3433Nmpyq [Mass/volume] in Serum or PlasmaUric acid Lab Routine Hyponatremia Expected: 07/28/2023 (Approximate), Expires: 07/20/2024[facility] CenterComment on above:Expected: 07/28/2023 (Approximate), Expires: 07/20/2024Start: 06-09-2023 End: 71-38-3060Ccqbrkz encounter jvnroydyt48/18/2024 10:00 AM EDT Office Visit [facility] [address] [place] [address] [facility]/GynecologyStart: 76-00-5887AqnjqagyzOhioHealth Mansfield Hospitaltart: 73-46-1697TwjxcchsdOhioHealth Mansfield Hospitaltart: 07-00-9938KbecdgqbsOhioHealth Mansfield Hospitaltart: 26-89-2790RpzcxwdusOhioHealth Mansfield Hospitaltart: 75-09-1650PsybtzfqkOhioHealth Mansfield Hospitaltart: 68-72-9037VktymhpyiOhioHealth Mansfield Hospitaltart: 44-33-8632NtmxmfilsOhioHealth Mansfield Hospitaltart: 06-01-2023 End: 33-11-7491DwghnjxldOhioHealth Mansfield Hospitaltart: 26-50-5333CqbbxwptiOhioHealth Mansfield Hospitaltart: 22-00-2237Dnejvqgpavazr metabolic 2000 panel - Serum or PlasmaOhioHealth Mansfield Hospitaltart: 05-30-2023 End: 86-84-6575TyaieutweOhioHealth Mansfield Hospitaltart: 95-43-4460Aosrzrnh admissionOhioHealth Mansfield Hospitaltart: 40-31-6523PvqokdymdOhioHealth Mansfield Hospitaltart: 74-10-8226Doywurex identified in Blood by CultureOhioHealth Mansfield Hospitaltart: 10-01-2524Eeipl culture for bacteria, including anaerobic screenBlood CultureOhioHealth Mansfield Hospitaltart: 05-29-2023 [facility] Hospitaltart: 26-17-5170ZBTLX-19 Vaccine ( season)COVID-19 Vaccine ()[facility]Start: 05-03-2022 End: 71-37-4725Hsxczmi encounter uopdslgxd86/13/2023 Procedure Visit Dentistry Holli Nguyen, DDS [address] [place] [address] [facility] DentistryStart: 11-21-2021 Influenza vaccinationInfluenza Vaccine (#1)[facility]HealthStart: 62-06-7434BLJTF-19 Vaccine (4 - Booster for Pfizer series)COVID-19 Vaccine (4 - Booster for Pfizer series)[facility]HealthStart: 54-11-5323Rvrucfwha for malignant neoplasm of cervix [facility] HealthcareStart: 04-16-7102HOP Vaccine (optional start 27-45 years)HPV Vaccine (optional start 27-45 years)[facility]HealthStart: 97-28-0158Fnwovx wellness visitAnnual Wellness Visit (G0438)[facility]roHealthStart: 15-38-2333Glxwubayq for malignant neoplasm of cervixPap SmearMetroHealthStart: 66-01-3352FRmF,Tdap and Td Vaccines (1 - Tdap)DTaP,Tdap and Td Vaccines (1 - Tdap)[facility] SystemStart: 37-55-7432Blltbhdit A (HAV) Vaccine (optional start 19+ years) Hepatitis A (HAV) Vaccine (optional start 19+ years)[facility]HealthStart: 2004 Adult BMI Follow Up PlanAdult BMI Follow Up PlanProMercy Health [facility] SystemStart: 35-75-3893Qywhh BMI ScreeningAdult BMI ScreeningProMercy Health [facility] SystemStart: 52-16-7469Qlsugfhrq C screeningHepatitis C AntibodyMetroHealthStart: 2001 HIV screeningHIV TestMetroHealthStart: 05-62-1187Ehjbul wellness visitAnnual Wellness Visit (G0438)[facility]roHealthStart: 92-15-7128Qjautffkeg ScreeningDepression ScreeningProMercy Health [facility] SystemStart: 08-13-5180Yijkvtt ScreeningTobacco ScreeningProMercy Health [facility] SystemStart: 58-05-0323Yngtslkqw for malignant neoplasm of breastMetroHealth End: 38-21-5352Qqwkh metabolic 2000 panel - Serum or PlasmaBasic Metabolic Panel Lab Routine Hyponatremia 1 Occurrences starting 05/25/2023 until 05/24/2024[facility] Work Phone: Comment on above:1 Occurrences starting 05/25/2023 until 05/24/2024 End: 60-86-0808Ethkw metabolic 2000 panel - Serum or PlasmaBASIC METABOLIC PANEL Lab Routine Pre-op evaluation 1 Occurrences starting 09/21/2024 until 09/22/19 26[facility]ITALEmployee [facility] Work Phone: Comment on above:1 Occurrences starting 09/21/2024 until 09/21/2025 End: [id number] panel - Blood by Automated countCBC without diff Lab Routine Hyponatremia 1 Occurrences starting 05/25/2023 until 05/24/2024[facility] SystemComment on above:1 Occurrences starting 05/25/2023 until 05/24/2024BC panel - Blood by Automated countCOMPLETE BLOOD COUNT Lab Routine Pre-op evaluation Ordered: 09/21/2024[facility]HealthComment on above:Ordered: 09/21/2024 Cefuroxime free [Mass/volume] in Serum or PlasmaPeoples HospitalDENTAL RESTORATIONSDENTAL RESTORATIONS Routine scheduled CariesMetroHealth End: 51-41-5998Hcxrtvyaq [Mass/volume] in Serum or PlasmaMagnesium Lab Routine Hyponatremia 1 Occurrences starting 05/25/2023 until 05/24/2024[facility] SystemComment on above:1 Occurrences starting 05/25/2023 until 05/24/2024Patient EducationConstipation, Adult (DC) Headache, Adult (DC)[facility] Work Phone: Patient referralS[facility] Work Phone: End: 22-52-3662Kjanuythi [Mass/volume] in Serum or PlasmaPhosphorus Lab Routine Hyponatremia 1 Occurrences starting 05/25/2023 until 05/24/2024Pro[facility] SystemComment on above:1 Occurrences starting 05/25/2023 until 05/24/2024 End: 39-82-1349Fpgxabw creat ratioProtein creat ratio Lab Routine Hyponatremia 1 Occurrences starting 05/25/2023 until 05/24/2024Pro[facility] SystemComment on above:1 Occurrences starting 05/25/2023 until 05/24/2024Sodium [Moles/volume] in Serum or PlasmaSodium Lab Routine Hyponatremia Ordered: 02/29/2024[facility] Work Phone: comment on above:Ordered: 02/29/2024 End: 28-23-3429Reufug, urine, randomSodium, urine, random Lab Routine Hyponatremia 1 Occurrences starting 07/28/2023 until 07/20/2024[facility] CenterComment on above:1 Occurrences starting 07/28/2023 until 07/20/2024 End: 91-02-2726TytpoixldyOmeykhqxrg Lab Routine Hyponatremia 1 Occurrences starting 05/25/2023 until 05/24/2024[facility] CenterComment on above:1 Occurrences starting 05/25/2023 until 05/24/2024Urine Creatinine,RdmUrine Creatinine,Rdm Lab Routine Hyponatremia Ordered: 07/28/2023[facility] CenterComment [facility] above:Ordered: 07/28/2023 End: 30-68-1117Sahmo test visual color cmprsn methsURINE HCG-IN OFFICE Lab Routine One time for 1 Occurrences starting 12/15/2023 until 12/15/2023[facility] Work Phone: comment on above:One time for 1 Occurrences starting 12/15/2023 until 12/15/2023 Immunizations Immunization DateImmunizationNotesCare XjxdcuueAhivwgpe62-19-4763jeqssijfx virus vaccine, unspecified formulationIvory NAPOLES Work Phone: [facility] SystemDlqkcxkseu57-54-8577yuxwpewxz virus vaccine, unspecified formulationCase Melchor MD Work Phone: [facility] CenterOtpddo90-15-5437rszlamnyv, injectable, quadrivalent, preservative kxwtYbtruWwctyi21-81-1077pdyaycpdp virus vaccine, unspecified jrokamqyolyYqdewMcvjod89-08-0902Nmyiho (12+ yrs) SARS-COV-2 (COVID-19) vaccine, mRNA, spike protein, LNP, pres. free, 30 mcg/0.3mL dose (ZLA=101)OctmwZfjuos20-88-8147Vmhfxa (12+ yrs) SARS-COV-2 (COVID-19) vaccine, mRNA, spike protein, LNP, pres. free, 30 mcg/0.3mL dose (ATE=928)[facility] 58-94-8168wszvadtwj, injectable, quadrivalent, preservative freeC[facility] Clinic [facility] 16-24-7702mdykqba toxoid, reduced diphtheria toxoid, and acellular pertussis vaccine, mxcdxtvtKlndaPpvjky73-62-4910ollwnvlcn, injectable, quadrivalent, preservative tcjpFasvuSgsfbd92-88-7489pkjhxnjfb, injectable, quadrivalent, contains vazbpslffvvhAqlmoIsfrfb91-93-2276jiutdgsxb, injectable, quadrivalent, preservative gajbByfuiHhobmh47-36-2013jrfiruwuc, seasonal, injectableMetroUniversity Hospitals [facility]aug[facility] Center 91-04-7429enqzzsbqjvfqd polysaccharide (groups A, C, Y and W-135) diphtheria toxoid conjugate vaccine (MCV4P)AdadaCtqzzm01-45-1992ER(adult) unspecified wzcmcmztqhhEmtwdUgshib01-07-4439cgbbsiwwv B vaccine, pediatric or pediatric/adolescent qxlzjxPizvvVphyww19-57-8203fyhvelidg B vaccine, pediatric or pediatric/adolescent okuygbKqxrwPktpcm37-24-9832bwwciellh B vaccine, pediatric or pediatric/adolescent bjyuniVdntmLhihjy25-15-2391uawvqzi, mumps and rubella virus gchsmraIedfiWmoeau62-55-3652AX(adult) unspecified formulation QnrstDrykgi51-98-0898xfzlijrvs poliovirus vaccine, live, oralMetroUniversity Hospitals [facility]aug[facility] Medical Center 33-19-9458vlpjojoqow, tetanus toxoids and pertussis jykllgeSjamvGvyvom06-23-5612 trivalent poliovirus vaccine, live, exuiQdofdKbstbv76-05-7543nyvrxkrzhph influenzae type b vaccine, conjugate unspecified formulationC[facility] 02-90-9542uwauwhl, mumps and rubella virus ljkcljiDnleeIgqvzb73-18-7235 diphtheria, tetanus toxoids and pertussis bkxamtgIutcjDbawty68-49-0151 diphtheria, tetanus toxoids and pertussis nposdulJqzxcLbphek23-71-1208iwjkcxlez poliovirus vaccine, live, mksqYnpceWndfmj34-87-4457pvedptgnlt, tetanus toxoids and pertussis qkbafnfJwvzdWvralq64-64-6480qlnusihrs poliovirus vaccine, live, oralMetroHealth Payers DatePayer CategoryPayerPolicy [id number] --Stand AloneDENTAL-MEDICAID [id number] 2019Medicaid [id number] 2008Medicare FFEDICARE [id number] 2007Medicare 1.2.840.003396.1.[id number] 2..1.734372.3.57[id number] 2..1.735889.3.57[id number] 2..1.467712.3.57[id number] 2..1.278744.3.57[id number] 2..1.376771.3.57[id number] 2.0.1.509672.3.57[id number] 2..1.338052.3.57[id number] 2.16.840.1.269726.3.57[id number] 2.16.840.1.333065.3.57[id number] 2.16.840.1.567003.3.579.2.004[id number] 2.16.840.1.517836.3.57[id number] 2.16840.1.015771.3.57[id number] 2.16840.1.125441.3.57[id number] 2.840.1.395059.3.57[id number] 2.16840.1.467154.3.57[id number] 2.16840.1.893663.3.57[id number] 2.16840.1.017071.3.57[id number] 2.840.1.910533.3.57[id number] 2.16840.1.795991.3.579.2.372201-79-1354Tiocllv00663740 2.16840.1.124077.3.579.2.[id number] 2.16840.1.512279.3.57[id number] 2.16.840.1.318469.3.579.[id number] 2.16.840.1.436869.3.579.2.922355-72-1591Ttqsjnn5570458 2.16.840.1.734642.3.579.2.702323-55-6883Vuqvlso1980283 2.16.840.1.208478.3.579.2.959171-58-9858Zftkxpk5407194 2.16.840.1.645615.3.579.2.426321-57-9470Brngbau5124206 2.16.840.1.560571.3.579.2.21[id number] 2.16.840.1.576517.3.579.2.[id number] 2.16.840.1.513842.3.579.2.8[id number] 2.16.840.1.196119.3.57[id number] 2.16.840.1.743886.3.579.2.1286 [id number] 1960Medicare [id number] Social History DateTypeDetailFacilityStart: 06-13-2020 End: 25-92-8751Amsnpyf smoking status NHISNever smoked tobaccoMetroHealth Work Phone: Start: 06-13-2020 End: 22-41-5984Gwdibzd use and exposureSmokeless tobacco non-userMetroHealth Start: 07-15-2020 End: 10-73-4384Rqokpbi intakeLifetime non-drinker (finding)MetroHealthStart: 34-85-8263Knuldkg SDOH Alcohol Ksadfywht1ChyrqXyzwjqEspva: 85-28-3646Agt Assigned At BirthNot on fileMetroUniversity Hospitals Geauga Medical CenterTobacco smoking statusNo Smoking Status EnteredCleveland Clinic Lutheran Hospitaltart: 07-15-2020 End: 20-77-0817Mto Assigned At [facility]healthFeMer[facility] Health [facility] Hospitaltart: 70-57-8629Kre Assigned At [facility] Centertart: 24-05-3076Ferysyf smoking status NHISUnknown if ever smokedOhioHealth Mansfield Hospitaltart: 07-15-2020 End: 52-77-2996Jsgizmz of Social functionMetroHealthStart: 01-12-2012 End: 18-76-9881WzeJffzhx (finding)MetroHealthStart: 02-01-2024 End: 44-09-5647Urxqwdi of drug misuse behaviorHas never misused drugs (situation)MetroHealthNEGATED: Highlighted rowPeoples Hospital Goals DatePatient GoalDesired Activity/State Functional Status IbfxJmyjorliivHmxqmvTqvhoptw30-70-0495Ppxwbbrpnd statusPatient at Baseline [facility] Work Phone: Mental Status UwqdNzmgqmujknDidjasDlsvvwgb37-21-0662Rwppbsnrc functionCognitive Status [facility]Mer[facility] Work Phone: Clinical Notes 06-10-2022 to 11-20-2024 Note Date & BxenDfyjQsrifhab86-63-1962 Miscellaneous Notes* Telephone Encounter - Luz Marina Nunez LPN - 11/20/2024 12:56 PM EDT [facility] called request last office note to be faxed to [phone]. Office note faxed. documented in this encounterPremier [facility] Center09-30-2025 Telephone encounter Note* Telephone Encounter - Luz Marina Nunez LPN - 11/20/2024 12:56 PM EDT [facility] called request last office note to be faxed to [phone]. Office note faxed. [facility] [place]09-30-2025 History of Present illness Narrative* EDENILSON Morton - 11/20/2024 11:00 AM EDT Images from the original note were not included. Interval HPI: I had the pleasure of meeting Migdalia Connelly in the office today. She is a very pleasant 39 y.o. female who presents for follow up regarding right breast infection. She states all of her symptoms have resolved including the right breast pain. She denies concerns with her breasts includingmasses, skin changes or nipple discharge. She underwent bilateral diagnostic mammogram and right breast ultrasound (08/09/2024) which was BIRADS 1. Tyrlizeth Cuzik risk assessment calculated by radiology (08/09/2024) showed a 12.68% lifetime risk of developing breast cancer c/t 13.05% for the typical population. Reviewed notes from Eve Haque CNP dated (08/09/2024), imaging including bilateral diagnostic mammogram and right breast ultrasound dated (08/09/2024) and updated history form dated (11/20/2024). HPI (08/09/2024) Eve Haque CABLE CUTTER AND SWAGER: Migdalia Connelly is a 39 y.o. female who presents with right breastchanges. History obtained from chart reviewed, additional information provided primarily by the facility staff present with her but patient is able to offer some input as well. Patient was seen by CAR SANDER on 08/07/24 with complaints of right breast and nipple tenderness/inversion that started on 08/02. This progressed t/o the course of several days to include swelling, firmness, redness and warmth. Clindamycin was initiated on 08/05. BDM, U/S, and breast MRI ordered. She is scheduled for BDM and U/S on 08/28 at [facility]. Patient does note some improvement since starting Clindamycin. Flight Communications Operator feels redness is improved compared to earlier in the week. Past Medical History Past Medical History: Diagnosis Date Astigmatism Attention deficit disorder with hyperactivity Bipolar 1 disorder (CMS-HCC) Constipation Dissociative disorder GERD (gastroesophageal reflux disease) History of pineal cyst Hormone imbalance Hypercholesterolemia Hyperopia Hypertension Impulse control disorder Moderate intellectual disability Mood disorder OCD (obsessive compulsive disorder) Osteopenia Patellar bursitis, right Pituitary microadenoma ([facility]-HCC) PTSD (post-traumatic stress disorder) Seizure disorder ([facility]) Past Surgical History Past Surgical History: Procedure Laterality Date CHOLECYSTECTOMY Family History History reviewed. No pertinent family history. Current Medications Current Outpatient Medications: acetaminophen (TYLENOL) 325 mg [...] mg total) by mouth in the morning., Disp:, Rfl: atomoxetine (STRATTERA) 60 mg capsule, Take [...] total) by mouth every 6 (six) hours., Disp:, Rfl: docusate sodium (COLACE) 100 mg capsule, [...] nasal spray, Administer 1 spray into each nostrilin the morning., Disp: , Rfl: guaiFENesin (MUCINEX) [...] (100 mg total) by mouth in the morningand 1 tablet (100 mg total) before bedtime., [...] 17 g by mouth., Disp: , Rfl: Allergies Allergies Allergen Reactions Abilify [Aripiprazole] Amoxicillin Metyrosine Moban [Molindone] Nubain [Nalbuphine] Other Sympathomimetics Social History Social History Substance and Sexual Activity Alcohol Use Never Social History Tobacco Use Smoking Status Never Smokeless Tobacco Never Social History Substance and Sexual Activity Drug Use Never Review of Systems Review of Systems All other systems reviewed and are negative. Breast: negative for masses, skin changes, nipple discharge or pain Objective: Limited exam, patient refused to lay supine Her height is 163.8 cm (5' 4.49 ) and weight is 74.4 kg (164 lb). Her blood pressure is 144/91 (abnormal) and her pulse is 62. Her respiration is 16. Constitutional: awake, alert, no apparent distress Head: normocephalic, atraumatic. Eyes: conjunctiva normal bilaterally; EOMI. Neck: supple; no lymphadenopathy. Neurologic: oriented to place, person, and situation. Psychiatric: appropriately interactive with provider; normal mood and affect. Examination of the right breast demonstrated nipple cleft; no masses, signs of infection, concerning skin lesions or nipple discharge. Examination of the left breast was without masses, concerning skin lesions or nipple discharge. She has no axillary lymphadenopathy. Images: Her images were reviewed. EXAM: MAMM DIAGNOSTIC BILATERAL W CAD, US [...] family medical history was used calculate their Tyrer-zick lifetime risk of malignancy. Scores less than 20% are not considered high risk per ACR guidelines and patient should continue with the above recommendation. Patient was given the results before leaving the department. Finalized by Milad Umana MD on 08/09/2024 11:36 AM ASSESSMENT -Right breast infection PLAN Reviewed history, imaging and clinical exam with patient and caregiver. No concerning findings on clinical exam or imaging. No signs of infection on exam. She can follow up with us PRN. Encouraged them to contact us with changes in her exam, questions or concerns. Dolores Bauman PA-C [facility] EDENILSON Morton 11/20/24 1115 documented in this encounterMercy Health St. Rita's Medical CenterIndependent Artist Competition Assoc.09-24-2025 History of Present illness Narrative* Bhanu Charlton DPM FACFAS - 11/14/2024 9:00 AM EDT Images from the original [...] deficit disorder with hyperactivity 05/25/2012 Bipolar disorder ([facility]) 05/04/2023 Essential hypertension 05/04/2023 Seizure disorder ([facility]) 05/04/2023 Pure hypercholesterolemia 05/04/2023 Anger reaction 07/14/2023 Convulsion ([facility]) 07/14/2023 Alteration of consciousness 07/14/2023 Development delay 07/14/2023 Resolved Ambulatory Problems Diagnosis Date Noted No Resolved Ambulatory Problems Past Medical History: Diagnosis Date ADHD (attention deficit hyperactivity disorder) Astigmatism Convulsions ([facility]) Developmental delay GERD (gastroesophageal reflux disease) Hypercholesterolemia Hyperopia Hypertension Impulse control disorder Intellectual disability Mental disorder Mood disorder OCD (obsessive compulsive disorder) Osteopenia PTSD (post-traumatic stress disorder) Seizures ([facility]) Medications: Current Outpatient Medications: acetaminophen (Tylenol) [...] in the morning and 1 tablet before bedtime.(Patient not taking: Reported on 02/29/2024), Disp: , [...] subungual debris. They were painful to palpation 29310 on the right 86403 on the left. VASC: DP /PT were nonpalpable bilateral. Capillary refill time < 3 seconds Digits 1-5 bilateral NEURO: [place] 5.07 monofilament was intact B/L. Vibratory sensation was intact B/L Musculoskeletal: Muscle strength was +5 over 5 all intrinsic and extrinsic muscles tested. Radiographs: AP/MO/LAT: Diagnostic ultrasound: ASSESSMENT No diagnosis found. PLAN The patient was educated on proper foot care as well as the etiology of onychomycosis. I educated the patient on proper shoe gear as well. Today the nails were debrided both in length and thickness 1through 10. DAY Laura documented in this encounterSaint Luke's Health SystemAguczfupqi77-19-3086 Hospital Discharge instructions* Discharge Instructions* Yady Lewis RN - 10/08/2024 9:34 AM EDT Basic Extraction Instructions - [employer] [facility] - Department of Dentistry Biting on Gauze to Control Bleeding Bleeding may occur for some time after you extraction. In most cases this bleeding can be easily contolled by placing a piece of clean gauze DIRECTLY over the empty tooth socket. Then make sure that you bite firmly on this gauze for 30 to 60 minutes. Use the gauze we supplied to you in the sealed plastic bag. Wash your hands with soap and water before touching the gauze and placing it in your mouth. Before removing gauze from your mouth first wash your hands with soap and water. Place the used gauze from your mouth in the plastic bag provided and then seal the bag. Dispose of the bag in a trash container. Make sure to wash your hands again when you are done touching the used gauze and before touching anything else. If a small amount of bleeding continues after 45 minutes then repeat these instructions. Very lightbleeding for 2 days is common. If heavy bleeding is still persistent during normal clinic hours than call the Dental Clinic where the extraction was done to speak with a dentist. [facility] [phone]; [facility] [phone];and [place] [phone]. On the weekends or evenings you can contact the Dental Resident circulation manager at [phone] and ask the voltmeter operator to page the Dental Resident. HELPING THE HEALING PROCESS AND STOPPING THE BLEEDING FOR THE NEXT 24 HOURS (1 DAY) AFTER THE EXTRACTION: DO NOT RINSE YOUR MOUTH OR SPIT DO NOT DRINK OR SUCK FROM A STRAW OR ANYTHING ELSE DO NOT DRINK ANY HOT LIQUIDS SUCH SOUP, COFFEE, TEA, HOT CHOCOLATE AVOID HEAVY LIFTING, BENDING OR OTHER STRENUOUS EXERCISES FOR THE NEXT 48 HOURS (2 DAYS) AFTER THE EXTRACTION: DO NOT SMOKE OR DRINK ALCOHOL DO NOT RINSE WITH MOUTHWASH OR A MOUTH RINSE Stitches may have been placed to help healing. Your dentist will advise you if you need to return to have them removed. TOOTH BRUSHING On the day of the extraction it is best to avoid brushing the teeth right next to the extraction site. On the next day you can start brushing ALL your teeth but in a gentle fashion. Remember to not rinse strongly because it may cause you to start bleeding from the extraction site again. SWELLING AND PAIN After the extraction you may feel some pain and experience some swelling. An ice pack of unopened bag of frozen peas of corn applied to the area should keep the swelling down. Put the ice pack on youface for 10 minutes and then leave it off for the next 20 minutes. You can repeat this patter as you feel is necessary for up to 24 hours after the extraction. To avoid injury, make sure that adults or children avoid biting or chewing on their lips of cheeks, which may be numb following an extraction. If your pain or swelling seems to be getting worse or you feel as though something is not right then call your dentist, as directed above. ANTIBIOTICS AND PAIN MEDICATION If antibiotics have been prescribed then you should take them as directed; this includes taking allthe antibiotic (or liquid) pills that were prescribed. If you don't finish them completely a serious infection could result. You may have little to no discomfort after the extraction. If you have minor pain then you may wantto take acetaminophen (Tylenol) or ibuprofen (Motrin). It is very important that before taking any medications that you read and follow the directions and warnings that come with these products so you know whether they are right for you and you situation. If you have any questions on whether these medications are right for you, first talk to your dentist or pharmacist before taking the medication. Your dentist may have given you a written prescription for pain relief. It is important that if youdecide to take it you read and understand all the precautions, warnings and directions that come with the medication. If you have any questions on whether the medication is right for you, first talk to your dentist or pharmacist before taking the medication. The pain medication prescription that your dentist gave you may contain a narcotic (like codeine). If so, most narcotic pain medications may upset your stomach. If so, then it is best to take them with food. The pain medication prescription that you were given can also make you drowsy or make you act strangely. If so, you should limit or stop activities such as driving a motor vehicle, operate machinery or other activities that require your full attention. A scopolamine patch was placed behind your RIGHT ear to help prevent post- operative nausea and vomiting. The patch can stay in place for up to 72 hours. Wash hands after touching or removing the patch. EATING AND DRINKING A soft or liquid diet may be best for you after a difficult extraction. For a simpler extraction just make sure you do your chewing with those teeth that are NOT near the extraction site. PERIOPERATIVE DISCHARGE/HOME-GOING INSTRUCTIONS ANESTHESIA - GENERAL (ADULT) If a problem arises, you may contact your physician by calling [phone] and asking for the resident circulation manager for DENTAL service. Special Care Needs: Activity: Rest at home today and tomorrow, then progress to your regular activities as tolerated. Diet: Clear liquids are best tolerated at first. If you are not nauseated, you can progress your diet to solid foods as tolerated. Possible post-operative precautions: Call you doctor or clinic for: 1. Signs of infection such as fever or chills. 2. Severe pain that in not relieved by Tylenol or your pain medicine prescription. 3. You may have a sore throat - it is usually gone in 1 to 2 days. Post-anesthesia safety: Possible side effects include drowsiness, dizziness, or inability to think clearly. For your safety, do not drive, drink alcoholic beverages, take any unprescribed medication or make any important decisions for 24 hours. A responsible adult should be with you for 24 hours. If no urine by 3:30 pm or you become very uncomfortable and can t urinate, call [phone] or come to the emergency room. A risk of anesthesia is post operative nausea and/or vomiting (PONV). Certain patients?are at higher risk than others. Talk to your anesthesiologist about the plan to minimize this risk. In?general, it is best to start with only ice chips or small sips of water, then progress to clear, non-alcoholic fluids. You do not have to eat if you do not feel like it; fluids?are the most important in?the first?24 hours after surgery. If you start to eat, try bananas, applesauce, plain toast, saltine crackers, or broth; avoid fried or fatty foods. Make sure to eat something about 15 minutes before takingany pain medications. Seek medical attention for any prolonged?PONV and signs of dehydration. The day after surgery, a nurse will call to check on you. However, if there are any questions or concerns, please call us at the number listed in the home going instructions. Rev. 09/26 documented in this [id number] Surgery Postoperative evaluation and management note* Brief Operative Note - Risa Black DDS - 10/08/2024 8:06 AM EDT Brief Operative Note [facility] OR 3 Migdalia Connelly 39 year old female Surgical Contact Serial Number: [id number] Preoperative Diagnosis: Pre-op Diagnosis * Caries [K02.9] Moderate intellectual disabilities Attention deficit hyperactivity disorder (ADHD) Unspecified dental caries Chronic periodontitis, unspecified Unconfirmed Dental decay Bipolar disorder (HCC) Dissociative disorder Impulse control disorder Gastroesophageal reflux disease Headache Posttraumatic stress disorder Postoperative Diagnosis: Moderate intellectual disabilities Attention deficit hyperactivity disorder (ADHD) Unspecified dental caries Unconfirmed Bipolar disorder (HCC) Dissociative disorder Impulse control disorder Gastroesophageal reflux disease Headache Posttraumatic stress disorder Procedures: Full mouth xrays [95923] Comprehensive exam [12526] Prophy [91471] Fluoride application [16629] Restorative [60204] Surgical extractions [05930] Surgeon(s): Surgeon(s): Og Grant DDS Staff: Box Closing Machine Operator Nurse: Rosanna Monroe RN Dental Resident: Risa lBack DDS Anesthesia: General Anesthesiologist: Kedar Moralez MD Utility Driver: Randi Rico MD; Enio Wells MD Specimen(s): * No specimens in log * Estimated Blood Loss: less than 5 cc Lines/Drains: * No LDAs found * Temporarily Retained Foreign Object: No Findings: Normal Complications: None Status at end of surgery: Stable Activity: weight bearing as tolerated Surgical wound class: No wound. Patient Class: Outpatient Surgery. Is this a patient scheduled as an outpatient that needs to be admitted as an inpatient? No Dr. Dr. Grant was present in the OR for the critical portion of the procedure and procedure sign-out. Signed by Risa Black DDS 10/08/2024 9:24 AM Cosigned by Og Grant DDS at 10/08/2024 9:49 AM EDT [id number] Surgery Surgical operation note* OP Note - Risa Black DDS - 10/08/2024 8:06 AM EDT Operative Note [facility] OR 3 Migdalia Connelly 39 year old female Surgical Contact Serial Number: [id number] Preoperative Diagnosis: Pre-op Diagnosis * Caries [K02.9] Moderate intellectual disabilities Attention deficit hyperactivity disorder (ADHD) Unspecified dental caries Chronic periodontitis, unspecified Unconfirmed Dental decay Bipolar disorder (HCC) Dissociative disorder Impulse control disorder Gastroesophageal reflux disease Headache Posttraumatic stress disorder Postoperative Diagnosis: Moderate intellectual disabilities Attention deficit hyperactivity disorder (ADHD) Unspecified dental caries Unconfirmed Bipolar disorder (HCC) Dissociative disorder Impulse control disorder Gastroesophageal reflux disease Headache Posttraumatic stress disorder Procedures: Full mouth xrays [09931] Comprehensive exam [91563] Prophy [61771] Fluoride application [93768] Restorative [32088] Surgical extractions [66487] Surgeon(s): Surgeon(s): Og Grant DDS Staff: Box Closing Machine Operator Nurse: Rosanna Monroe RN Dental Resident: Risa Black DDS Anesthesia: General- Nasal ETT Estimated Blood Loss: less than 5 cc IV Fluids: 500cc Urine Output: Not measured. Findings: The patient was brought to the operating room and placed in the supine position on the operating room table. Following satisfactory induction of GA. The patient was intubated with a nasal endotracheal tube. She was then prepped and drapped in the usual sterile fashion for dental procedures. Full mouth series were then taken and an oral examination was completed. A moistened throat pack was then placed. Full mouth scaling was then performed. The radiographs were examined by the attending and the resident and used in conjunction with th oral exam to formulate a treatment plan. The restorative aspect of the treatment plan included the following composite restorations for # 11DILF, #24 DILF, and #27 DL. These restorations were placed following excavation of the carious lesions on each tooth. The surgical aspect of the treatment plan included the following surgical extraction(s) and/or rootremoval: Teeth # 12, # 25, # 26, # 28, and # 30 3.0 chromic gut sutures were placed in all extraction sites. The remaining dentition was then polished with prophy paste. The oral cavity was irrigated and suctioned then the throat pack was removed. Fluoride treament was placed on the remaining dentition. Thepatient tolerated the procedure well was extubated in the operating room, and taken to the PACU in stable condition. Complications: None Status at end of surgery: Stable Medications: Medications Taking[1] Dictated by: Risa Black DDS: Dr. ASHIA Meléndez was present for the critical portions of the procedure. Risa Black DDS 10/08/2024 9:31 AM [1] Outpatient Medications Marked as Taking for the 10/08/24 encounter (Hospital Encounter) Medication Sig Dispense Refill Cholecalciferol (Vitamin D3) 125 MCG (5000 UT) CAPS Take 125 mcg by mouth daily. metoprolol (LOPRESSOR) 100 MG tablet Take 100 mg by mouth 3 times a day. polycarbophil (Fiber-Lax) 625 MG tablet Take 2 Tablets by mouth every morning. carBAMazepine (TEGRETOL XR) 200 MG SR tablet Take 1 Tablet by mouth 2 times daily. carBAMazepine ER (CARBATROL) 100 MG CR capsule Take 100 mg by mouth daily. At 4 pm metoprolol (LOPRESSOR) 25 MG tablet Take 25 mg by mouth 3 times daily. Calcium Carbonate Antacid (Tums Smoothies) 750 MG CHEW Take 2 Tablets by mouth every 4 hours as needed. Polyethylene Glycol 3350 (PEG 3350) 17 GM/SCOOP POWD Take 17 g by mouth every morning. paliperidone (INVEGA) 6 MG 24 hour tablet Take 6 mg by mouth 2 times a day. lamotrigine (LaMICtal) 150 MG tablet Take 300 mg by mouth at bedtime. lamotrigine (LaMICtal) 200 MG tablet Take 200 mg by mouth every morning. atomoxetine (STRATTERA) 40 MG capsule Take 40 mg by mouth every evening. atomoxetine (STRATTERA) 60 MG capsule Take 60 mg by mouth every morning. Calcium+D3 600-20 MG-MCG TABS Take 1 Tablet [...] mg by mouth 2 times a day. Cosigned by Og Grant DDS at 10/08/2024 9:50 AM EDT [id number] Miscellaneous Notes* Brief Operative Note - Risa Black DDS - 10/08/2024 8:06 AM EDT Brief Operative Note [facility] 3 Migdalia Connelly 39 year old female Surgical Contact Serial Number: [id number] Preoperative Diagnosis: Pre-op Diagnosis * Caries [K02.9] Moderate intellectual disabilities Attention deficit hyperactivity disorder (ADHD) Unspecified dental caries Chronic periodontitis, unspecified Unconfirmed Dental decay Bipolar disorder (HCC) Dissociative disorder Impulse control disorder Gastroesophageal reflux disease Headache Posttraumatic stress disorder Postoperative Diagnosis: Moderate intellectual disabilities Attention deficit hyperactivity disorder (ADHD) Unspecified dental caries Unconfirmed Bipolar disorder (HCC) Dissociative disorder Impulse control disorder Gastroesophageal reflux disease Headache Posttraumatic stress disorder Procedures: Full mouth xrays [15955] Comprehensive exam [53133] Prophy [08592] Fluoride application [61508] Restorative [43827] Surgical extractions [21033] Surgeon(s): Surgeon(s): Og Grant DDS Staff: Box Closing Machine Operator Nurse: Rosanna Monroe RN Dental Resident: Risa Black DDS Anesthesia: General Anesthesiologist: Kedar Moralez MD Utility Driver: Randi Rico MD; Enio Wells MD Specimen(s): * No specimens in log * Estimated Blood Loss: less than 5 cc Lines/Drains: * No LDAs found * Temporarily Retained Foreign Object: No Findings: Normal Complications: None Status at end of surgery: Stable Activity: weight bearing as tolerated Surgical wound class: No wound. Patient Class: Outpatient Surgery. Is this a patient scheduled as an outpatient that needs to be admitted as an inpatient? No . Dr. Grant was present in the OR for the critical portion of the procedure and procedure sign-out. Signed by Risa Black DDS 10/08/2024 9:24 AM Cosigned by Og Grant DDS at 10/08/2024 9:49 AM EDT * OP Note - Risa Black DDS - 10/08/2024 8:06 AM EDT Operative Note [facility] 3 Migdalia Connelly 39 year old female Surgical Contact Serial Number: [id number] Preoperative Diagnosis: Pre-op Diagnosis * Caries [K02.9] Moderate intellectual disabilities Attention deficit hyperactivity disorder (ADHD) Unspecified dental caries Chronic periodontitis, unspecified Unconfirmed Dental decay Bipolar disorder (HCC) Dissociative disorder Impulse control disorder Gastroesophageal reflux disease Headache Posttraumatic stress disorder Postoperative Diagnosis: Moderate intellectual disabilities Attention deficit hyperactivity disorder (ADHD) Unspecified dental caries Unconfirmed Bipolar disorder (HCC) Dissociative disorder Impulse control disorder Gastroesophageal reflux disease Headache Posttraumatic stress disorder Procedures: Full mouth xrays [39879] Comprehensive exam [46194] Prophy [01525] Fluoride application [22896] Restorative [92553] Surgical extractions [42483] Surgeon(s): Surgeon(s): Og Grant DDS Staff: Box Closing Machine Operator Nurse: Rosanna Monroe RN Dental Resident: Risa Black DDS Anesthesia: General- Nasal ETT Estimated Blood Loss: less than 5 cc IV Fluids: 500cc Urine Output: Not measured. Findings: The patient was brought to the operating room and placed in the supine position on the operating room table. Following satisfactory induction of GA. The patient was intubated with a nasal endotracheal tube. She was then prepped and drapped in the usual sterile fashion for dental procedures. Full mouth series were then taken and an oral examination was completed. A moistened throat pack was then placed. Full mouth scaling was then performed. The radiographs were examined by the attending and the resident and used in conjunction with th oral exam to formulate a treatment plan. The restorative aspect of the treatment plan included the following composite restorations for # 11DILF, #24 DILF, and #27 DL. These restorations were placed following excavation of the carious lesions on each tooth. The surgical aspect of the treatment plan included the following surgical extraction(s) and/or rootremoval: Teeth # 12, # 25, # 26, # 28, and # 30 3.0 chromic gut sutures were placed in all extraction sites. The remaining dentition was then polished with prophy paste. The oral cavity was irrigated and suctioned then the throat pack was removed. Fluoride treament was placed on the remaining dentition. Thepatient tolerated the procedure well was extubated in the operating room, and taken to the PACU in stable condition. Complications: None Status at end of surgery: Stable Medications: Medications Taking[1] Dictated by: Risa Black DDS: Dr. ASHIA Meléndez was present for the critical portions of the procedure. Risa Black DDS 10/08/2024 9:31 AM [1] Outpatient Medications Marked as Taking for the 10/08/24 encounter (Hospital Encounter) Medication Sig Dispense Refill Cholecalciferol (Vitamin D3) 125 MCG (5000 UT) CAPS Take 125 mcg by mouth daily. metoprolol (LOPRESSOR) 100 MG tablet Take 100 mg by mouth 3 times a day. polycarbophil (Fiber-Lax) 625 MG tablet Take 2 Tablets by mouth every morning. carBAMazepine (TEGRETOL XR) 200 MG SR tablet Take 1 Tablet by mouth 2 times daily. carBAMazepine ER (CARBATROL) 100 MG CR capsule Take 100 mg by mouth daily. At 4 pm metoprolol (LOPRESSOR) 25 MG tablet Take 25 mg by mouth 3 times daily. Calcium Carbonate Antacid (Tums Smoothies) 750 MG CHEW Take 2 Tablets by mouth every 4 hours as needed. Polyethylene Glycol 3350 (PEG 3350) 17 GM/SCOOP POWD Take 17 g by mouth every morning. paliperidone (INVEGA) 6 MG 24 hour tablet Take 6 mg by mouth 2 times a day. lamotrigine (LaMICtal) 150 MG tablet Take 300 mg by mouth at bedtime. lamotrigine (LaMICtal) 200 MG tablet Take 200 mg by mouth every morning. atomoxetine (STRATTERA) 40 MG capsule Take 40 mg by mouth every evening. atomoxetine (STRATTERA) 60 MG capsule Take 60 mg by mouth every morning. Calcium+D3 600-20 MG-MCG TABS Take 1 Tablet [...] mg by mouth 2 times a day. Cosigned by Og Grant DDS at 10/08/2024 9:50 AM EDT documented in this [id number] History of Present illness Narrative* Og Grant DDS - 10/08/2024 7:53 AM EDT ----- Tuesday, October 08, 2024 at 9:47:45 AM ----- ----- Provider: Satinder Obrien DDS -- Clinic: [facility] ----- [place] notes, pt is ready for tx. poor OH. restos and ext completed as needed. took long time, ext was tricky, root tips broke, flaps raised, tips delivered. releasing incisions made to retrieve teeth 12, and 28. OP Note by Risa Black DDS at 10/08/2024 8:06 AM Author: Risa Black DDS Service: Dentistry Author Type: Resident Filed: 10/08/2024 9:33 AM Date of Service: 10/08/2024 8:06 AM Note Type: OP Note Status: Cosign Needed Extractor Operator Helper: Risa Black DDS (Resident) Cosign Required: Yes Operative Note [facility] OR 3 Migdalia Connelly 39 year old female Surgical Contact Serial Number: [id number] Preoperative Diagnosis: Pre-op Diagnosis * Caries [K02.9] Moderate intellectual disabilities Attention deficit hyperactivity disorder (ADHD) Unspecified dental caries Chronic periodontitis, unspecified Unconfirmed Dental decay Bipolar disorder (HCC) Dissociative disorder Impulse control disorder Gastroesophageal reflux disease Headache Posttraumatic stress disorder Postoperative Diagnosis: Moderate intellectual disabilities Attention deficit hyperactivity disorder (ADHD) Unspecified dental caries Unconfirmed Bipolar disorder (HCC) Dissociative disorder Impulse control disorder Gastroesophageal reflux disease Headache Posttraumatic stress disorder Procedures: Full mouth xrays [70653] Comprehensive exam [87394] Prophy [98376] Fluoride application [77499] Restorative [70910] Surgical extractions [31212] Surgeon(s): Surgeon(s): Og Grant DDS Staff: Box Closing Machine Operator Nurse: Rosanna Monroe RN Dental Resident: Risa Black DDS Anesthesia: General- Nasal ETT Estimated Blood Loss: less than 5 cc IV Fluids: 500cc Urine Output: Not measured. Findings: The patient was brought to the operating room and placed in the supine position on the operating room table. Following satisfactory induction of GA. The patient was intubated with a nasal endotracheal tube. She was then prepped and drapped in the usual sterile fashion for dental procedures. Full mouth series were then taken and an oral examination was completed. A moistened throat pack was then placed. Full mouth scaling was then performed. The radiographs were examined by the attending and the resident and used in conjunction with th oral exam to formulate a treatment plan. The restorative aspect of the treatment plan included the following composite restorations for # 11DILF, #24 DILF, and #27 DL. These restorations were placed following excavation of the carious lesions on each tooth. The surgical aspect of the treatment plan included the following surgical extraction(s) and/or rootremoval: Teeth # 12, # 25, # 26, # 28, and # 30 3.0 chromic gut sutures were placed in all extraction sites. The remaining dentition was then polished with prophy paste. The oral cavity was irrigated and suctioned then the throat pack was removed. Fluoride treament was placed on the remaining dentition. Thepatient tolerated the procedure well was extubated in the operating room, and taken to the PACU in stable condition. Complications: None Status at end of surgery: Stable Medications: [Medications Taking] [Medications Taking] Outpatient Medications Marked as Taking for the 10/08/24 encounter (Hospital Encounter) Medication Sig Dispense Refill * Cholecalciferol (Vitamin D3) 125 MCG (5000 UT) CAPS Take 125 mcg by mouth daily. * metoprolol (LOPRESSOR) 100 MG tablet Take 100 mg by mouth 3 times a day. * polycarbophil (Fiber-Lax) 625 MG tablet Take 2 Tablets by mouth every morning. * carBAMazepine (TEGRETOL XR) 200 MG SR tablet Take 1 Tablet by mouth 2 times daily. * carBAMazepine ER (CARBATROL) 100 MG CR capsule Take 100 mg by mouth daily. At 4 pm * metoprolol (LOPRESSOR) 25 MG tablet Take 25 mg by mouth 3 times daily. * Calcium Carbonate Antacid (Tums Smoothies) 750 MG CHEW Take 2 Tablets by mouth every 4 hours as needed. * Polyethylene Glycol 3350 (PEG 3350) 17 GM/SCOOP POWD Take 17 g by mouth every morning. * paliperidone (INVEGA) 6 MG 24 hour tablet Take 6 mg by mouth 2 times a day. * lamotrigine (LaMICtal) 150 MG tablet Take 300 mg by mouth at bedtime. * lamotrigine (LaMICtal) 200 MG tablet Take 200 mg by mouth every morning. * atomoxetine (STRATTERA) 40 MG capsule Take 40 mg by mouth every evening. * atomoxetine (STRATTERA) 60 MG capsule Take 60 mg by mouth every morning. * Calcium+D3 600-20 MG-MCG TABS Take 1 Tablet by mouth 2 times daily. * cloNIDine (CATAPRES) 0.2 MG tablet Take 0.2 mg by mouth 3 times daily. * guanFACINE HCl 2 MG TABS Take 2 mg by mouth 3 times daily. * docusate sodium (COLACE) 100 MG capsule Take 200 mg by mouth 2 times daily. * loratadine (CLARITIN) 10 MG tablet Take 10 mg by mouth daily. * fenofibrate micronized (LOFIBRA) 134 MG capsule Take 134 mg by mouth at bedtime. * montelukast (SINGULAIR) 10 MG tablet Take 10 mg by mouth daily. * lamoTRIgine (LAMICTAL) 100 MG tablet Take 100 mg by mouth at bedtime. * omeprazole (PRILOSEC) 20 MG capsule Take 20 mg by mouth daily. * olanzapine (ZYPREXA) 20 MG tablet Take 20 mg by mouth at bedtime. * dicyclomine (BENTYL) 20 MG tablet Take 20 mg by mouth 2 times a day. Dictated by: Risa Black DDS: Dr. ASHIA Meléndez was present for the critical portions of the procedure. Risa Black DDS 10/08/2024 9:31 AM ----- Signed on Tuesday, October 08, 2024 at 9:50:51 AM ----- ----- Provider: [id number] Ed Obrien DDS -- Clinic: [facility] ----- documented in this [id number] Telephone encounter Note* Telephone Encounter - Megha Sanchez RN - 10/03/2024 10:[address] Chatman made aware that CBC and CMP from 05/03/24 received from [facility] Addendum: Dr. Chatman states that he has reviewed labs and results are acceptable on 10/04 via secureImpevat. [id number] Miscellaneous Notes* Telephone Encounter - Megha Sanchez RN - 10/03/2024 10:[address] Chatman made aware that CBC and CMP from 05/03/24 received from [facility] and [facility]. documented in this [id number] Miscellaneous Notes* Telephone Encounter - Megha Sanchez RN - 10/03/2024 10:[address] Chatman made aware that CBC and CMP from 05/03/24 received from [facility]. Addendum: Dr. Chatman states that he has reviewed labs and results are acceptable on 10/04 via securechat. documented in this [id number] History of Present illness Narrative* Bhanu Charlton, DAY FACFAS - 10/03/2024 9:30 AM EDT Images from the original [...] in the morning and 1 tablet before bedtime.(Patient not taking: Reported on 02/29/2024), Disp: , [...] the right 1st metatarsocuneiform joint freely mobile withinthe subcutaneous tissue bursal formation VASC: DP /PT were nonpalpable bilateral. Capillary refill time < 3 seconds Digits 1-5 bilateral NEURO: [place] 5.07 monofilament was intact B/L. Vibratory [...] pain follow up with me p.r.n. Bhanu Charlton DPM FACFAS documented in this encounterSaint Luke's Health [id number] Velez for 10/08 dental procedure and scanned into [facility]08-08-2025 Telephone encounter Note* Telephone Encounter - Megha Sanchez RN - 09/28/2024 3:42 PM EDT Anesthesia consent obtained by Dr. Velez for 10/08 dental procedure and scanned into [facility]. [id number] Miscellaneous Notes* Telephone Encounter - Megha Sanchez RN - 09/28/2024 3:42 PM EDT Anesthesia consent obtained by Dr. Velez for 10/08 dental procedure and scanned into [facility]. 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 Diseasestatus limits daily activity. EKG: Not indicated LABS: [...] pending : at baseline Glenn Chatman MD [phone] [1] Allergies Allergen Reactions Abilify Amoxicillin Depakote [Valproic Acid] Per OSH H+P 08/2018 Food Peterson Slaw Metyrosine Moban [Molindone] Nubain [Nalbuphine] Sympathomimetics Vicks 44 Cough Relief [Dextromethorphan Hbr] [2] Past Medical History: Diagnosis Date Attention deficit hyperactivity disorder (ADHD) 05/25/2012 Attention deficit disorder with hyperactivity Caries 09/05/2018 Added automatically from request for surgery [id number] Constipation Per OSH H+P 08/2018 Dental decay 08/26/2016 Added automatically from request for surgery [id number] Developmental delay Per OSH H+P 08/2018 Hormone [...] DENTAL RESTORATIONS; Surgeon: Bhavin Valdovinos DDS; Location: [facility]; Service: Dental DENTAL RESTORATIONS N/A 09/15/2018 Procedure: DENTAL RESTORATIONS; Surgeon: Og Grant DDS; Location: [facility] [place]; Service: Dental DENTAL RESTORATIONS Bilateral 07/14/2020 Procedure: DENTAL RESTORATIONS; Surgeon: Og Grant DDS; Location: [facility] [place]; Service: Dental [4] Social History Tobacco Use Smoking Status Never Smokeless Tobacco Never documented in this [id number] History of Present illness Narrative* Linn Red MD - 09/04/2024 10:00 AM EDT Migdalia Connelly is a 39 y.o.female. No LMP recorded (lmp unknown).. She presents for follow up of breastimaging due to breast pain. Patient reports improvement [...] disorder) Osteopenia Patellar bursitis, right Pituitary microadenoma ([facility]) PTSD (post-traumatic stress disorder) Seizure disorder ([facility]) SURGICAL HX Past Surgical History: Procedure Laterality Date CHOLECYSTECTOMY FAMILY HX No family history on file. MEDS Current Outpatient Medications Medication Sig Dispense Refill acetaminophen (TYLENOL) 325 mg tablet Take 1 tablet (325 mg total) by mouth every 4 (four) hours asneeded. albuterol (PROVENTIL,VENTOLIN) 2.5 mg /3 mL (0.083 [...] mammogram and ultrasound results with patient and janitor caretaker. Discussed how the patient has been feeling since she finished her antibiotics. Discussed the patients skin picking could bethe source of infection. Advised to keep appointment with breast clinic. Recommend yearly mammograms. FOREST CLEMENTE 09/04/24 1046 LINN RED MD documented in this encounterMercy Health St. Rita's Medical CenterInnovolt [facility] [id number] History of Present illness Narrative* Bhanu Charlton DPM FACFAS - 08/21/2024 10:30 AM EDT Images from the original note [...] deficit disorder with hyperactivity 05/25/2012 Bipolar disorder ([facility]) 05/04/2023 Essential hypertension 05/04/2023 Seizure disorder ([facility]) 05/04/2023 Pure hypercholesterolemia 05/04/2023 Anger reaction 07/14/2023 Convulsion ([facility]) 07/14/2023 Alteration of consciousness 07/14/2023 Development delay 07/14/2023 Resolved Ambulatory Problems Diagnosis Date Noted No Resolved Ambulatory Problems Past Medical History: Diagnosis Date ADHD (attention deficit hyperactivity disorder) Astigmatism Convulsions ([facility]) Developmental delay GERD (gastroesophageal reflux disease) Hypercholesterolemia Hyperopia Hypertension Impulse control disorder Intellectual disability Mental disorder Mood disorder OCD (obsessive compulsive disorder) Osteopenia PTSD (post-traumatic stress disorder) Seizures ([facility]) Medications: Current Outpatient Medications: acetaminophen (Tylenol) [...] in the morning and 1 tablet before bedtime.(Patient not taking: Reported on 02/29/2024), Disp: , [...] < 3 seconds Digits 1-5 bilateral NEURO: [place] 5.07 monofilament was intact B/L. Vibratory [...] exact placement and to avoid injection into underlyingsubcutaneous tissue. I discussed removal of the exostosis and soft tissue mass if the cortisone injection does not help. He was attempting shoe gear modifications at this point i as well. Follow up 1month DAY Laura documented in this encounterSaint Luke's Health [id number] History of Present illness Narrative* Eve Haque, SERVICE SUPERINTENDENT-CABLE CUTTER AND SWAGER - 08/09/2024 9:30 AM EDT Images from the original [...] input as well. Patient was seen by CAR SANDER on 08/07/24 with complaints of right breast and nipple tenderness/inversion that started on 08/02. This progressed t/o the course of several days to include swelling, firmness, redness and warmth. Clindamycin was initiated on 08/05. BDM, U/S, and breast MRI ordered. She is scheduled for BDM and U/S on 08/28 at [facility]. Patient does note some improvement since starting Clindamycin. Flight Communications Operator feels redness is improved compared to earlier [...] medications, and allergies have been reviewed in [facility]. PAST MEDICAL HISTORY: Past Medical History: Diagnosis Date Astigmatism Attention deficit disorder with hyperactivity Bipolar 1 disorder (CMS-HCC) Constipation Dissociative disorder GERD (gastroesophageal reflux disease) History of pineal cyst Hormone imbalance Hypercholesterolemia Hyperopia Hypertension Impulse control disorder Moderate intellectual disability Mood disorder OCD (obsessive compulsive disorder) Osteopenia Patellar bursitis, right Pituitary microadenoma (CMS-HCC) PTSD (post-traumatic stress disorder) Seizure disorder (CMS-HCC) PAST SURGICAL HISTORY: Past Surgical History: Procedure [...] mg total) by mouth in the morning., Disp:, Rfl: atomoxetine (STRATTERA) 60 mg capsule, Take [...] total) by mouth every 6 (six) hours., Disp:, Rfl: docusate sodium (COLACE) 100 mg capsule, [...] nasal spray, Administer 1 spray into each nostrilin the morning., Disp: , Rfl: guaiFENesin (MUCINEX) [...] (100 mg total) by mouth in the morningand 1 tablet (100 mg total) before bedtime., [...] no nipple discharge, no supra/infraclavicular adenopathy, no axillaryadenopathy. BREAST (L): dense fibroglandular tissue upper pole, [...] care provider present. Spoke with staff at [facility] - patient will be worked in today for BD and U/S. Will await results to determine next steps, as appropriate. Continue antibiotic course as advised. Follow up pending results of testing. The patient understands and agrees with the plan as discussed. All questions answered. Eve Haque CNP [facility] Total time spent was 39 minutes: Preparing to see the patient (e.g., review of tests) Obtaining and/or reviewing separately obtained history Performing a medically appropriate examination and/or evaluation Counseling and educating the patient/family/caregiver Ordering medications, tests, or procedures Referring and communicating with other health care information associate (not separately reported) Documenting clinical information in the electronic or other health record Independently interpreting results (not separately reported) and communicating results to the patient/family/caregiver YESIKA Arsmtrong 08/09/24 1711 documented in this encounterPremier Health Atrium Medical Center06-17-2025 History of Present illness Narrative* Linn Red MD - 08/07/2024 2:30 PM EDT Migdalia Connelly is a 39 y.o.female. No [...] mammogram. Discussed follow up care with patients janitor caretaker who believes she will tolerate a mammogram, she states if CT is needed she may need some sedation. Mammogram, ultrasound, MRI, and breast specialist requisition provided. FU 4-6WKS MD DAMON MILLER, [facility] Aundrea Leis 08/07/24 1447 Aundrea Leis 08/07/24 1458 documented in this encounterPremier Health Atrium Medical Center06-17-2025 History of Present illness Narrative* Bhanu Charlton DPAwa FACFAS - 08/07/2024 9:30 AM EDT Images from the original [...] (HCC) 05/04/2023 Essential hypertension 05/04/2023 Seizure disorder ([facility]) 05/04/2023 Pure hypercholesterolemia 05/04/2023 Anger reaction 07/14/2023 Convulsion ([facility]) 07/14/2023 Alteration of consciousness 07/14/2023 Development delay 07/14/2023 Resolved Ambulatory Problems Diagnosis Date Noted No Resolved Ambulatory Problems Past Medical History: Diagnosis Date ADHD (attention deficit hyperactivity disorder) Astigmatism Convulsions ([facility]) Developmental delay GERD (gastroesophageal reflux disease) [...] in the morning and 1 tablet before bedtime.(Patient not taking: Reported on 02/29/2024), Disp: , [...] subungual debris. They were painful to palpation 94063 on the right 09972 on the left. VASC: DP /PT were nonpalpable bilateral. Capillary refill time < 3 seconds Digits 1-5 bilateral NEURO: [place] 5.07 monofilament was intact B/L. Vibratory [...] both in length and thickness 1through 10. Educated the patient and her caregiver in the exostosis of the 1st metatarsocuneiform joint as wellas soft tissue/ bursa noted in that region I recommended cortisone injection into the bursa of the 1st metatarsocuneiform joint The patient was injected with 1 cc of 2% lidocaine plain and 1 cc of [place] alog 10 the ultrasonic guidance. A 12 megahertz linear probe was used for the injection in order toensure exact placement and to avoid injection into underlying subcutaneous tissue. I discussed removal of the exostosis and soft tissue mass if the cortisone injection does not help. I did recommended shoe gear modifications she will be going to an corporate recycling manager to have new shoes purchase follow up 2 weeks for reexamine. DAY Laura documented in this encounterSaint Luke's Health [id number] History of Present illness Narrative* DAY Laura - 07/18/2024 10:20 AM EDT Images from the original note [...] Date Noted Attention deficit disorder with hyperactivity ([facility]) 05/25/2012 Bipolar disorder 05/04/2023 Essential hypertension ([facility]) 05/04/2023 Seizure disorder ([facility]) 05/04/2023 Pure hypercholesterolemia ([facility]) 05/04/2023 Anger reaction 07/14/2023 Convulsion ([facility]) 07/14/2023 Alteration of consciousness 07/14/2023 Development delay 07/14/2023 Resolved Ambulatory Problems Diagnosis Date Noted No Resolved Ambulatory Problems Past Medical History: Diagnosis Date ADHD (attention deficit hyperactivity disorder) ([facility]) Astigmatism Convulsions ([facility]) Developmental delay GERD (gastroesophageal reflux disease) Hypercholesterolemia ([facility]) Hyperopia Hypertension ([facility]) Impulse control disorder ([facility]) Intellectual disability ([facility]) Mental disorder Mood disorder ([facility]) OCD (obsessive compulsive disorder) ([facility]) Osteopenia PTSD (post-traumatic stress disorder) ([facility]) Seizures ([facility]) Medications: Current Outpatient Medications: acetaminophen (Tylenol) [...] in the morning and 1 tablet before bedtime.(Patient not taking: Reported on 02/29/2024), Disp: , [...] up p.r.n. DAY Laura documented in this encounterSaint Luke's Health [id number] History of Present illness Narrative* DAY Laura - 2024 10:20 AM EDT Patient: Migdalia Connelly : 1985 PCP: Lio [...] Date Noted Attention deficit disorder with hyperactivity ([facility]/HCC) 05/25/2012 Bipolar disorder 05/04/2023 Essential hypertension ([facility]) 05/04/2023 Seizure disorder ([facility]) 05/04/2023 Pure hypercholesterolemia ([facility]) 05/04/2023 Anger reaction 07/14/2023 Convulsion ([facility]) 07/14/2023 Alteration of consciousness 07/14/2023 Development delay 07/14/2023 Resolved Ambulatory Problems Diagnosis Date Noted No Resolved Ambulatory Problems Past Medical History: Diagnosis Date ADHD (attention deficit hyperactivity disorder) ([facility]) Astigmatism Convulsions ([facility]) Developmental delay GERD (gastroesophageal reflux disease) Hypercholesterolemia ([facility]) Hyperopia Hypertension ([facility]) Impulse control disorder ([facility]) Intellectual disability ([facility]) Mental disorder Mood disorder ([facility]) OCD (obsessive compulsive disorder) ([facility]) Osteopenia PTSD (post-traumatic stress disorder) ([facility]) Seizures ([facility]) Medications: Current Outpatient Medications: acetaminophen (Tylenol) [...] in the morning and 1 tablet before bedtime.(Patient not taking: Reported on 02/29/2024), Disp: , [...] < 3 seconds Digits 1-5 bilateral NEURO: [place] 5.07 monofilament was intact B/L. Vibratory [...] was instructed to change the dressing daily. Bhanu Charlton DPM FACBART documented in this encounterSaint Luke's Health [id number] History of Present illness Narrative* Zaid Joshua APRN-ALEKSANDAR - 06/13/2024 1:15 PM EDT Subjective Migdalia Connelly is a pleasant 38 [...] past medical history, past social history, past surgicalhistory, problem list, and medication reconciliation was completed including current medication andpost discharge medication. Review of Systems Reason unable to perform ROS: developmentally delayed. Objective Vitals: 06/13/24 1333 BP: 116/72 Body mass index is 32.05 kg/m . Physical Exam Vitals and nursing note reviewed. Exam conducted with a cement production plant operator present. Constitutional: General: She is not in [...] TARIK Leblanc 06/13/24 1415 documented in this encounterPremier Health At[facility] Medical Center04-14-2025 History of Present illness Narrative* EDENILSON Rush - 06/04/2024 10:40 AM EDT Images from the original note were not included. Chief Complaint Patient presents with Seizures Subjective Migdalia Connelly, 38 y.o., female SEIZURE -resident at [facility], here today with house aide -labs to [...] Diagnosis Date ADHD (attention deficit hyperactivity disorder) ([facility]/HCC) Alteration of consciousness Anger reaction Astigmatism Bipolar disorder Convulsions (CMS/HCC) Developmental delay GERD (gastroesophageal reflux disease) Hypercholesterolemia (CMS/HCC) Hyperopia Hypertension (CMS/HCC) Impulse control disorder ([facility]/HCC) Intellectual disability ([facility]/HCC) Mental disorder Mental retardation, mild Mood disorder (CMS/HCC) OCD (obsessive compulsive disorder) ([facility]) Osteopenia PTSD (post-traumatic stress disorder) ([facility]) Seizures ([facility]) No past surgical history on file. [...] , wrist extensors , wrist flexor , director of religious activities strength 5/5. LUE Strength deltoid , biceps , triceps , wrist extensors , wrist flexor , director of religious activities strength 5/5. RLE Strength illopsoas, quadriceps, tibialis [...] 134 (L). LFTs (WNL) Routine EEG at [facility] in March 2018: Normal MRI of the brain w and w/o contrast at [facility] on 10/18/13 and 06/30/16: Stable right adenohypophyseal [...] breakthrough seizures for several years. Carbamazepine dose hasbeen decreased to low sodium levels, which have now normalized. She is doing well on current doses without breakthrough events. PLAN: - Continue lamotrigine PO 200 mg in morning and 400 mg in the evening (primarily for mood/psych) - Continue carbamazepine XR PO to 200 mg in the morning, 100 mg in the afternoon, and 200 mg in theevening - Recent blood work reviewed - Continue [...] plan, and return instructions documented in this encounterSaint Luke's Health [id number] History of Present illness Narrative* Damien Jones NP - 02/29/2024 11:00 AM EST Images from the original note were not included. Chief Complaint Patient presents with Convulsions Subjective Migdalia Connelly, 38 y.o., female The patient presents today for follow up to convulsions/seizure activity. She is accompanied today by a facility caregiver. Admits labs after last visit, September 2023 that were ordered by her PCP. Shetakes carbamazepine and lamotrigine, tolerating well. Her caregiver [...] (CMS/HCC) Impulse control disorder (CMS/HCC) Intellectual disability ([facility]) Mental disorder Mental retardation, mild Mood disorder ([facility]/HCC) OCD (obsessive compulsive disorder) ([facility]) Osteopenia PTSD (post-traumatic stress disorder) ([facility]) Seizures ([facility]) History reviewed. No pertinent surgical history. [...] , wrist extensors , wrist flexor , director of religious activities strength 5/5. LUE Strength deltoid , biceps , triceps , wrist extensors , wrist flexor , director of religious activities strength 5/5. RLE Strength illopsoas, quadriceps, tibialis [...] LLE knee reflex 1+. Negative Brian's Coordination: Ooplow-ds-pocn testing is normal Gait: Normal Review and [...] 134 (L). LFTs (WNL) Routine EEG at [facility] in March 2018: Normal MRI of the brain w and w/o contrast at [facility] on 10/18/13 and 06/30/16: Stable right adenohypophyseal [...] breakthrough seizures for several years. Carbamazepine dose hasbeen decreased to low sodium levels however it seems that her sodium level is again dropping. PLAN: - Continue lamotrigine PO 200 mg in morning and 400 mg in the evening (primarily for mood/psych) - Decrease carbamazepine XR PO to 200 mg in the morning, 100 mg in the afternoon, and 200 mg in theevening - Will recheck sodium level prior to [...] plan, and return instructions documented in this encounterSaint Luke's Health [id number] History of Present illness Narrative* Bhanu Charlton DPM FACFAS - 02/28/2024 9:30 AM EST Images from the original note were not [...] Diagnosis Date ADHD (attention deficit hyperactivity disorder) ([facility]) Alteration of consciousness Anger reaction Astigmatism Bipolar disorder ([facility]/HCC) Convulsions ([facility]/HCC) Developmental delay GERD (gastroesophageal reflux disease) Hypercholesterolemia (CMS/HCC) Hyperopia Hypertension ([facility]/HCC) Impulse control disorder ([facility]/HCC) Intellectual disability ([facility]/HCC) Mental disorder Mental retardation, mild Mood disorder ([facility]/HCC) OCD (obsessive compulsive disorder) ([facility]/HCC) Osteopenia PTSD (post-traumatic stress disorder) ([facility]/HCC) Seizures ([facility]) Medications: Current Outpatient Medications: acetaminophen (Tylenol) [...] bid prn when flared, Disp: 60 g, Rfl:11 Review of systems: Constitutional: Denies fever, chills, [...] subungual debris. They were painful to palpation 84028 on the right 54941 on the left. VASC: DP /PT were nonpalpable bilateral. Capillary refill time < 3 seconds Digits 1-5 bilateral NEURO: [place] 5.07 monofilament was intact B/L. Vibratory [...] 1through 10. DAY Laura documented in this encounterSaint Luke's Health [id number] NotePatient recovered by anesthesia in procedure room.[facility] [id number] History of Present illness Narrative* Sabra Frias DMD - 02/23/2024 9:37 AM EST ----- Thursday, February 23, 2024 at 10:34:06 AM ----- ----- Provider: Shelby Frias DMD -- Clinic: [place] ----- PT. WAS SEEN IN [facility] UNDER TWILIGHT SEDATION WITH ANESTHESIA TEAM. Anesthesia diagnosis: Unspecified mental disorder- F09 and Other intellectual disabilities- F78 Dental diagnosis: Dental Caries, unspecified - K02.9 COMPOSITE MANDAEN Patient is scheduled for Yazidi on tooth #23 MFL and 24 DFL. Reviewed Medical History. Patient is ready for treatment. Topical Benzocaine gel applied at the injection site for 2 minutes. Administered 2 carpules of Lidocaine, 2% with Epinephrine 1:100,000,. Cotton roll isolation achieved. Decay/existing scientologist removed, cavity prepared. Selectively etched enamel with 37% phosphoric acid, rinsed, and blot dried. OptiBond bowles applied and light-cured. Condensed packable composite shade A2 in light cured increments using Mylar strip and wedge. Finished with finishing burs, checked occlusion, verified proximal contacts and scientologist was polished. Rinsed and suctioned intraorally, advised [...] ----- Provider: Shelby Frias DMD -- Clinic: [place] ----- documented in this [id number] Telephone encounter Note* Telephone Encounter - Megha Sanchez RN - 02/14/2024 10:24 AM EST Anesthesia consent obtained by Dr. Koch and scanned into Dissolve. [id number] Miscellaneous Notes* Telephone Encounter - Megha Sanchez RN - 02/14/2024 10:24 AM EST Anesthesia consent obtained by Dr. Koch and scanned into [employer]olve. documented in this [id number] Instructions* Discharge Instructions* Penny Denton RN - 02/01/2024 9:44 AM EST You are you have surgery with Dr. Frias on 02/22/2023 at [facility] which is located at [address] [place] [address] PATIENT MEDICATION INSTRUCTIONS: On the morning of [...] Do not take any Ibuprofen products/NSAIDs 3 daysbefore surgery. May take over the counter Acetaminophen [...] unless otherwise contacted. Expect a call from [employer] one business day prior to surgery for surgery arrival time andlocation. Please plan to restart your medications the day after surgery unless otherwise explicitly instructed. Please contact your surgeon s/proceduralist s office for any surgical or recovery types of questions. CANCELLING YOUR SURGERY/PROCEDURE: If you get a cold, are not feeling well, or become , please call your surgeon s office as soon as possible. Refer to your Preparing for Your Surgery/Procedure booklet or [email or web address] if you have questions. Contact the Pre-Admission Testing department at [phone] or your surgeon's officewith any questions that are not answered. Eating [...] earrings, or mouth, tongue, or body piercings. Metaljewelry could cause constriction, amputation, or serrano. Loose [...] stay with you after surgery. Please call [employer] if you need transportation assistance or have concerns about going home [phone]. PEDIATRIC or ADOLESCENTS: Parents or a legal [...] of water, then progress to clear, non-alcoholic fluids.You do not have to eat if you do not feel like it; fluids are the most important in the first 24 hours after surgery. If you start to eat, try bananas, applesauce, plain toast, saltine crackers, or broth; avoid fried or fatty foods. Make sure to eat something about 15 minutes before taking any painmedications. Seek medical attention for any prolonged PONV and signs of dehydration. Thank you for choosing [facility]; it is our pleasure to care for you. documented in this [id number] Evaluation note* PAT Call History - Penny Denton RN - 02/01/2024 9:20 AM EST Images from the original note were not included. Telephone History Migdalia Connelly, [id number] 02/01/2024 Patient was identified by name and date of with Nurse Latasha from [facility]. Needs: Physical, Neck Circumference, Glasses, BHCG, Intellectual Disability, Anxiety and Seizure Precautions on DOS. Ifthe patient becomes ill prior to procedure or surgery, they are to call their provider or surgeon'soffice directly. 02/01/2024 - communicated with patient will need urine test the morning of the procedure 02/01/2024-Spoke with Dr. Florez (Anesthesia) in regards to anxiety with last procedure - indicates that [facility] can give her 5 mg Valium at least 1 hour prior to arriving (Nurse at [facility] - Latasha-aware) 02/01/2024-[facility] to provide most recent labs (fax number given) 02/14/2024-LG consent obtained - see assistant media buyer 38 year old 190.6 lbs [...] 09/05/2018 Added automatically from request for surgery [id number] Constipation Per OSH H+P 08/2018 Dental decay 08/26/2016 Added automatically from request for surgery [id number] Developmental delay Per OSH H+P 08/2018 Hormone [...] Decay, Dental Caries, Peridontitis, Endo (+) 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 (+) irregular periods Neuro/Psych (+) bipolar disorder, [...] DENTAL RESTORATIONS; Surgeon: Bhavin Valdovinos DDS; Location: [facility]; Service: Dental DENTAL RESTORATIONS N/A 09/15/2018 Procedure: DENTAL RESTORATIONS; Surgeon: Og Grant DDS; Location: [facility]; Service: Dental DENTAL RESTORATIONS Bilateral 07/14/2020 Procedure: DENTAL RESTORATIONS; Surgeon: Og Grant DDS; Location: [facility]; Service: Dental SOCIAL HISTORY: Social History Socioeconomic History Marital status: Single Tobacco Use Smoking status: Never Smokeless tobacco: Never Substance and Sexual Activity Alcohol use: Never Drug use: Never PAIN ASSESSMENT: Severity: 0 Location: N/A LABORATORY DATA: [facility] 10/24/2023 LABS TESTS REVIEWED: CXRay: No Chest [...] Do not take any Ibuprofen products/NSAIDs 3 daysbefore surgery. May take over the counter Acetaminophen [...] unless otherwise contacted. [facility] to surgery for surgery arrival time andlocation. Please plan to restart your medications the day after surgery unless otherwise explicitly instructed. Please contact your surgeon s/proceduralist s office for any surgical or recovery types of questions. CANCELLING YOUR SURGERY/PROCEDURE: If you get a cold, are not feeling well, or become , please call your surgeon s office as soon as possible. Refer to your Preparing for Your Surgery/Procedure booklet or [email or web address] if you have questions. Contact the Pre-Admission Testing department at [phone] or your surgeon's officewith any questions that are not answered. Eating [...] earrings, or mouth, tongue, or body piercings. Metaljewelry could cause constriction, amputation, or serrano. Loose [...] stay with you after surgery. Please call [employer] if you need transportation assistance or have concerns about going home [phone]. PEDIATRIC or ADOLESCENTS: Parents or a legal [...] of water, then progress to clear, non-alcoholic fluids.You do not have to eat if you do not feel like it; fluids are the most important in the first 24 hours after surgery. If you start to eat, try bananas, applesauce, plain toast, saltine crackers, or broth; avoid fried or fatty foods. Make sure to eat something about 15 minutes before taking any painmedications. Seek medical attention for any prolonged PONV and signs of dehydration. Thank you for choosing [facility]; it is our pleasure to care for you. Penny Denton RN Time Spent Performing this Telephone History: 30 [id number] Miscellaneous Notes* PAT Call History - Penny Denton RN - 02/01/2024 9:20 AM EST Images from the original note were not included. Telephone History Migdalia Cueva Stephie, [id number] 02/01/2024 Patient was identified by name and date of with Nurse Anaya from [facility] [place]. Needs: Physical, Neck Circumference, Glasses, BHCG, Intellectual Disability, Anxiety and Seizure Precautions on DOS. Ifthe patient becomes ill prior to procedure or surgery, they are to call their provider or surgeon'soffice directly. 02/01/2024 - communicated with patient will need urine test the morning of the procedure 02/01/2024-Spoke with Dr. Florez (Anesthesia) in regards to anxiety with last procedure - indicates that [facility] can give her 5 mg Valium at least 1 hour prior to arriving (Nurse at [facility] - Latasha-aware) 02/01/2024-[facility] to provide most recent labs (fax number given) 02/14/2024-LG consent obtained - see assistant media buyer 38 year old 190.6 lbs [...] 09/05/2018 Added automatically from request for surgery [id number] Constipation Per OSH H+P 08/2018 Dental decay 08/26/2016 Added automatically from request for surgery [id number] Developmental delay Per OSH H+P 08/2018 Hormone [...] Decay, Dental Caries, Peridontitis, Endo (+) 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; Service: Dental DENTAL RESTORATIONS Bilateral 07/14/2020 Procedure: DENTAL RESTORATIONS; Surgeon: Og Grant DDS; Location: [facility]; Service: Dental SOCIAL HISTORY: Social History Socioeconomic History Marital status: Single Tobacco Use Smoking status: Never Smokeless tobacco: Never Substance and Sexual Activity Alcohol use: Never Drug use: Never PAIN ASSESSMENT: Severity: 0 Location: N/A LABORATORY DATA: [facility] 10/24/2023 LABS TESTS REVIEWED: CXRay: No Chest [...] Do not take any Ibuprofen products/NSAIDs 3 daysbefore surgery. May take over the counter Acetaminophen [...] unless otherwise contacted. Expect a call from [employer] one business day prior to surgery for surgery arrival time andlocation. Please plan to restart your medications the day after surgery unless otherwise explicitly instructed. Please contact your surgeon s/proceduralist s office for any surgical or recovery types of questions. CANCELLING YOUR SURGERY/PROCEDURE: If you get a cold, are not feeling well, or become , please call your surgeon s office as soon as possible. Refer to your Preparing for Your Surgery/Procedure booklet or [email or web address] if you have questions. Contact the Pre-Admission Testing department at [phone] or your surgeon's officewith any questions that are not answered. Eating [...] earrings, or mouth, tongue, or body piercings. Metaljewelry could cause constriction, amputation, or serrano. Loose [...] stay with you after surgery. Please call [employer] if you need transportation assistance or have concerns about going home [phone]. PEDIATRIC or ADOLESCENTS: Parents or a legal [...] of water, then progress to clear, non-alcoholic fluids.You do not have to eat if you do not feel like it; fluids are the most important in the first 24 hours after surgery. If you start to eat, try bananas, applesauce, plain toast, saltine crackers, or broth; avoid fried or fatty foods. Make sure to eat something about 15 minutes before taking any painmedications. Seek medical attention for any prolonged PONV and signs of dehydration. Thank you for choosing [facility]; it is our pleasure to care for you. Penny Denton RN Time Spent Performing this Telephone History: 30 documented in this [id number] Note* Addendum Note - Orquidea Florez MD - 12/15/2023 11:34 AM EDT Addendum created 12/15/231133 by Orquidea Florez MD Clinical Note Signed [id number] Miscellaneous Notes* Addendum Note - Orquidea Florez MD - 12/15/2023 11:34 AM EDT Addendum created 12/15/231133 by Orquidea Florez MD Clinical Note Signed * Addendum Note - Domingo Carrion APRN-CRNA - 12/15/2023 10:26 AM EDT Addendum created 12/15/23 1026 by Domingo Carrion APRN-CRNA Flowsheet accepted, LDA properties accepted * Anesthesia Transfer Of Care - Domingo Carrion APRN-CRNA - 12/15/2023 9:24 AM EDT Patient recovered by SIGNAL WORKER in room. Patient is awake, comfortable, and [...] DENTAL RESTORATIONS; Surgeon: Bhavin Valdovinos DDS; Location: [facility] [place]; Service: Dental CHOLECYSTECTOMY (2009) Per OSH H+P 08/2018 DENTAL RESTORATIONS (09/15/2018) Procedure: DENTAL RESTORATIONS; Surgeon: Og Grant DDS; Location: [facility] [place]; Service: Dental DENTAL RESTORATIONS (07/14/2020) Procedure: DENTAL RESTORATIONS; Surgeon: Og Grant DDS; Location: [facility] [place]; Service: Dental Allergies: Abilify, Amoxicillin, Depakote [valproic acid], Food, Metyrosine, Moban [molindone], Nubain [nalbuphine], Sympathomimetics, and Vicks 44 cough relief [dextromethorphan hbr] Basic Operating Room Facts: * No surgeons listed * Anesthesiologist: Orquidea Florez MD SIGNAL WORKER: Domingo Carrion APRN-CRNA DENTAL VISIT Intraoperative Events: [...] was received. MAXIMO Soliz documented in this [id number] Procedure anesthesia Narrative * Procedure NameResponsible AnesthesiologistAnesthesia Start TimeAnesthesia Stop TimeDENTAL VISITOrquidea Florez MD12/15/23 79340212/15/23 0925DateTime RhmynDnxmjqq57/24/[id number] Start [id number] Owvju2239Zofmdwrweeyl Verify The anesthesia team has reviewed the patient's vital signs immediately prior to induction. MAXIMO Soliz0833Procedure TimeoutConfirm the correct patient identity: Yes Confirm the correct procedure: Yes Confirm the correct procedural site: Yes Confirm signed informed consent: Yes Confirm prophylactic antibiotic administration (if applicable): N/A Discuss fire risk mitigation (if applicable): Yes Anesthesia Staff MAXIMO Soliz Proceduralist Altagracia Additional Staff 0834An Eqtznoehi5780Itfncgorvu Fwqnzek1509he stop [id number] completed my SBAR handoff to the receiving nurse in the receiving unit.09AN Stop* NameTotalglycopyrrolate (ROBINUL) injection 0.2 mg/mL0.1 mgMidazolam 1 mg/mL5 mgDexmedetomidine injection 100 mcg/mL56 mcg Ketorolac 30 mg/mL15 mgLactated Tttaban55 mL * Agents Name N2O O2 Flow Rate (l/min) * Blood No blood administrations on file. TypeDetailsPlacementRemovalSurgical Wound06/09 0000 by Carola Hansen RNSurgical Wound09/15/18; 1148; Incision; N/A; Mouth09/15/18 1148 by Mayte Poole RNWound07/14/20; 1023; Bilateral; Other (Comment); Surgical - Hkubsuir61/24/21 1023 by Felix Oro RNAirway Rvhezot64/24/24; 0833; Nasal Cannula; 12/15/23; 0833 by Domingo Carrino APRN-CRNA12/15/23 0920 by Domingo Carrion APRN-CRNAdocumented in this encounter [id number] Note* Addendum Note - Domingo Carrion APRN-CRNA - 12/15/2023 10:26 AM EDT Addendum created 12/15/23 1026 by Domingo Carrion APRN-CRNA Flowsheet accepted, LDA properties accepted [facility] Work Phone: 1(855) 122-838910-24-2024 Note* Addendum Note - Domingo Carrion APRN- CRNA - 12/15/2023 10:26 AM EDT Addendum created 12/15/23 1026 by Domingo Carrion APRN-CRNA Flowsheet accepted, LDA properties accepted [facility] Work Phone: 1(328) 509-380810-24-2024 Miscellaneous Notes* Addendum Note - Domingo Carrion APRN-CRNA - 12/15/2023 10:26 AM EDT Addendum created 12/15/23 1026 by Domingo Carrion APRN-CRNA Flowsheet accepted, LDA properties accepted * Anesthesia Transfer Of Care - Domingo Carrion APRN-CRNA - 12/15/2023 9:24 AM EDT Patient recovered by SIGNAL WORKER in room. Patient is awake, comfortable, and [...] DENTAL RESTORATIONS; Surgeon: Bhavin Valdovinos DDS; Location: [facility] [place]; Service: Dental CHOLECYSTECTOMY (2009) Per OSH H+P 08/2018 DENTAL RESTORATIONS (09/15/2018) Procedure: DENTAL RESTORATIONS; Surgeon: Og rGant DDS; Location: [facility] [place]; Service: Dental DENTAL RESTORATIONS (07/14/2020) Procedure: DENTAL RESTORATIONS; Surgeon: Og Grant DDS; Location: [facility]; Service: Dental Allergies: Abilify, Amoxicillin, Depakote [valproic acid], Food, Metyrosine, Moban [molindone], Nubain [nalbuphine], Sympathomimetics, and Vicks 44 cough relief [dextromethorphan hbr] Basic Operating Room Facts: * No surgeons listed * Anesthesiologist: Orquidea Florez MD SIGNAL WORKER: Domingo Carrion APRN-RAVINDRA DENTAL VISIT Intraoperative Events: [...] was received. MAXIMO Soliz documented in this [id number] Anesthesiology Postoperative evaluation and management note* Anesthesia [...] ANESTHESIA NOTABLE EVENTS: No notable events documented. 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 The risks, benefitsand alternatives were reviewed. Questions regarding anesthesia were answered. Patient and/or legal branch service representative knows such anesthetics and procedures may be performed by Resident physicians, Certified Anesthesiologist Assistants, or Certified Nurse Anesthetists under the supervision of a physician. The patient /or the patient s legal branch service representative agree with the plan for anesthesia. MHPATFORM documented in this [id number] Surgical operation note* Anesthesia Postprocedure Evaluation - [...] apnea Dental ROS (+) teeth problems Endo scientific systems analyst (-) not (negative in clinic today) Neuro/Psych [...] were discussed with the patient and/or legal branch service representative. The risks, benefitsand alternatives were reviewed. Questions regarding anesthesia were answered. Patient and/or legal branch service representative knows such anesthetics and procedures may be performed by Resident physicians, Certified Anesthesiologist Assistants, or Certified Nurse Anesthetists under the supervision of a physician. The patient /or the patient s legal branch service representative agree with the plan for anesthesia. MHPATFORM documented in this [id number] Surgical operation note* Anesthesia Postprocedure Evaluation - [...] apnea Dental ROS (+) teeth problems Endo scientific systems analyst (-) not (negative in clinic today) Neuro/Psych [...] were discussed with the patient and/or legal branch service representative. The risks, benefitsand alternatives were reviewed. Questions regarding anesthesia were answered. Patient and/or legal branch service representative knows such anesthetics and procedures may be performed by Resident physicians, Certified Anesthesiologist Assistants, or Certified Nurse Anesthetists under the supervision of a physician. The patient /or the patient s legal branch service representative agree with the plan for anesthesia. MHPATFORM documented in this [id number] Anesthesiology Postoperative evaluation and management note* Anesthesia Transfer Of Care - Domingo Carrion APRN- RAVINDRA - 12/15/2023 9:24 AM EDT Patient recovered by SIGNAL WORKER in room. Patient is awake, comfortable, and [...] DENTAL RESTORATIONS; Surgeon: Bhavin Valdovinos DDS; Location: [facility] [place]; Service: Dental CHOLECYSTECTOMY (2009) Per OSH H+P 08/2018 DENTAL RESTORATIONS (09/15/2018) Procedure: DENTAL RESTORATIONS; Surgeon: Og Grant DDS; Location: [facility] [place]; Service: Dental DENTAL RESTORATIONS (07/14/2020) Procedure: DENTAL RESTORATIONS; Surgeon: Og Grant DDS; Location: [facility] [place]; Service: Dental Allergies: Abilify, Amoxicillin, Depakote [valproic acid], Food, Metyrosine, Moban [molindone], Nubain [nalbuphine], Sympathomimetics, and Vicks 44 cough relief [dextromethorphan hbr] Basic Operating Room Facts: * No surgeons listed * Anesthesiologist: Orquidea Florez MD SIGNAL WORKER: Domingo Carrion APRN-SIGNAL WORKER DENTAL VISIT Intraoperative Events: No acute event [...] of the report was received. MAXIMO Soliz [employer] Work Phone: 1(496) 634-752810-24-2024 Miscellaneous Notes* Anesthesia Transfer Of Care - Domingo Carrion APRN-CRNA - 12/15/2023 9:24 AM EDT Patient recovered by SIGNAL WORKER in room. Patient is awake, comfortable, and [...] DENTAL RESTORATIONS; Surgeon: Bhavin Valdovinos DDS; Location: [facility] [place]; Service: Dental CHOLECYSTECTOMY (2009) Per OSH H+P 08/2018 DENTAL RESTORATIONS (09/15/2018) Procedure: DENTAL RESTORATIONS; Surgeon: Og Grant DDS; Location: [facility] [place]; Service: Dental DENTAL RESTORATIONS (07/14/2020) Procedure: DENTAL RESTORATIONS; Surgeon: Og Grant DDS; Location: [facility]; Service: Dental Allergies: Abilify, Amoxicillin, Depakote [valproic acid], Food, Metyrosine, Moban [molindone], Nubain [nalbuphine], Sympathomimetics, and Vicks 44 cough relief [dextromethorphan hbr] Basic Operating Room Facts: * No surgeons listed * Anesthesiologist: Orquidea Florez MD SIGNAL WORKER: Domingo Carrion APRN-RAVINDRA DENTAL VISIT Intraoperative Events: [...] was received. MAXIMO Soliz documented in this [id number] History of Present illness Narrative* Marleni Alejandro DDS - 12/15/2023 8:53 AM EDT ----- November at 9:52:24 AM ----- ----- Provider: Resident Eric -- Clinic: [place] ----- PT WAS SEEN IN [facility] UNDER TWILIGHT SEDATION WITH ANESTHESIA TEAM Anesthesia [...] status of dentition on the charting. COMPOSITE MANDAEN Patient is scheduled for Yazidi on tooth #26 surface B5. Topical Benzocaine gel applied at theinjection site for 2 minutes. Administered 0.5 carpules of Lidocaine, 2% with Epinephrine 1:100,000,. Isolation achieved. Decay/existing scientologist removed, cavity prepared. Selectively etched enamel with 37% phosphoric acid, rinsed, and blot dried. OptiBond bowles applied and light-cured. Condensed packable composite shade A2 in light cured increments. Finished with finishing burs, checked occlusion, verified proximal contacts and scientologist was polished. SIMPLE EXTRACTION tooth # 7 [...] ----- Provider: Shelby Frias DMD -- Clinic: [place] ----- documented in this [id number] Progress note* Blood Attestation - Oruqidea Florez MD - 12/15/2023 8:26 AM EDT Blood Attestation: ATTESTATION OF INFORMED CONSENT FOR BLOOD: The transfusion of blood and/or blood components were discussed with the patient and/or legal branch service representative. The risks, benefits and alternatives were reviewed. Questions regarding blood transfusions were answered. The patient /or the patient s legal branch service representative agree with the plan for transfusion of blood and/or blood components. [facility] Work Phone: 1(606) 601-655810-24-2024 Miscellaneous Notes* Blood Attestation - Orquidea Florez MD - 12/15/2023 8:26 AM EDT Blood Attestation: ATTESTATION OF INFORMED CONSENT FOR BLOOD: The transfusion of blood and/or blood components were discussed with the patient and/or legal branch service representative. The risks, benefits and alternatives were reviewed. Questions regarding blood transfusions were answered. The patient /or the patient s legal branch service representative agree with the plan for transfusion of blood and/or blood components. 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 The risks, benefitsand alternatives were reviewed. Questions regarding anesthesia were answered. Patient and/or legal branch service representative knows such anesthetics and procedures may be performed by Resident physicians, Certified Anesthesiologist Assistants, or Certified Nurse Anesthetists under the supervision of a physician. The patient /or the patient s legal branch service representative agree with the plan for anesthesia. MHPATFORM [id number] History of Present illness Narrative* YESIKA Mac [...] for any new/changing lesions documented in this encounterSaint Luke's Health [id number] Telephone encounter Note* Telephone Encounter - Idania Campbell RN - 11/23/2023 2:56 PM EDT Anesthesia consent obtained and scanned into [employer]. Scheduled for surgery 12/15/2023. [id number] Miscellaneous Notes* Telephone Encounter - Idania Campbell RN - 11/23/2023 2:56 PM EDT Anesthesia consent obtained and scanned into [employer]. Scheduled for surgery 12/15/2023. documented in this [id number] NoteDo not eat or drink anything after [...] the Pre Admission Testing (PAT) department at [phone], or your surgeon's office, with any additional questions.[facility] [id number] History of Present illness Narrative* Bhanu Charlton DPM FACFAS - 11/09/2023 9:00 AM EDT [...] Anger reaction Astigmatism Bipolar disorder (CMS/HCC) Convulsions ([facility]/HCC) Developmental delay GERD (gastroesophageal reflux disease) Hypercholesterolemia (CMS/HCC) Hyperopia Hypertension (CMS/HCC) Impulse control disorder (CMS/HCC) Intellectual disability ([facility]/HCC) Mental disorder Mental retardation, mild Mood disorder (CMS/HCC) OCD (obsessive compulsive disorder) ([facility]) Osteopenia PTSD (post-traumatic stress disorder) ([facility]) Seizures ([facility]) Medications: Current Outpatient Medications: acetaminophen (Tylenol) [...] subungual debris. They were painful to palpation 88917 on the right 06090 on the left. VASC: DP /PT were nonpalpable bilateral. Capillary refill time < 3 seconds Digits 1-5 bilateral NEURO: [place] Ami 5.07 monofilament was intact B/L. Vibratory [...] 1through 10. DAY Laura documented in this encounterSaint Luke's Health [id number] History of Present illness Narrative* Case Melchor [...] results found for: IRONSAT , FERRITIN , [id number] , FOLATE Mineral and Bone Labs: No [...] of your patients! Please contact me at [phone] (Office) or [phone] (Answering service) with any questions. CASE MELCHOR MD [facility] This note was created with the assistance of a speech-recognition program. Although the intention is to generate a document that actually reflects the content of the visit, no guarantees can be provided that every mistake has been identified and corrected by editing. documented in this encounterPremier Health Atrium Medical Center08-28-2024 History of Present illness Narrative* Lizandro Veronica DDS - 10/19/2023 10:05 AM EDT ----- Thursday, October 19, 2023 at 11:01:41 AM ----- ----- Provider: [id number] Resident Marco -- Clinic: [place] ----- LIMITED EXAM Patient presents for Emergency [...] consented to treatment today. Pt here with reformatory attendant to discuss IV sedation as a quicker [...] needed for full determination. Spoke with Dr. Grant, he agrees the patient is a candidate for IV sedation. Informed both the patient and the reformatory attendant. Treatment request for IV sedation will be sent for the patient. Next Visit: IV sedation and appropriate treatment. ----- Signed on Thursday, October 19, 2023 at 1:27:08 PM ----- ----- Provider: [id number] Ed Obrien DDS -- Clinic: [place] ----- documented in this [id number] Miscellaneous Notes* Telephone Encounter - Cesia Lang - 08/01/2023 3:02 PM EDT [facility] called and requested the last progress note to be faxed to [phone]. Faxed note. documented in this encounterPremier Health Atrium Medical Center06-10-2024 Telephone encounter Note* Telephone Encounter - Cesia Lang - 08/01/2023 3:02 PM EDT [facility] called and requested the last progress note to be faxed to [phone]. Faxed note. [facility]06-06-2024 History of Present illness Narrative* Case Melchor [...] constantly. She is a resident at the [facility] full- time. She is reasonably functional. [...] Physical Exam Vital Signs: Vitals: 07/28/23 1407 06/06/24 1410 BP: 116/59 110/80 BP Site: Left [...] results found for: IRONSAT , FERRITIN , [id number] , FOLATE Mineral and Bone Labs: No [...] of your patients! Please contact me at [phone] (Office) or [phone] (Answering service) with any questions. CASE MELCHOR MD [facility] This note was created with the assistance of a speech-recognition program. Although the intention is to generate a document that actually reflects the content of the visit, no guarantees can be provided that every mistake has been identified and corrected by editing. documented in this encounterPremier Health Atrium Medical Center04-10-2024 Discharge summary Author Rico Romero [facility] June 01, 2023 3:06pmNote Date/TimeApr2023 12:23pm[place] [address] Discharge Summary Signed Patient: Migdalia Connelly MR#: [id number] : 1985 Acct:[id number] Age/Sex: 37 / F Adm Date: 4 Loc: 4N Room: 0R7166-[address]: Rico Romero DO Copies to: [...] SEEN EXTENDING INTO THE [place] WITHOUT EVIDENCEOF ABSCESS. THERE ARE PRESUMED REACTIVE/PROMINENT BILATERAL LEVEL 2 LYMPH NODES. MILD ETHMOID AND MAXILLARY SINUS DISEASE. History of multiple MRDD and psychiatric disorders, which seem to be clinically stable during this hospital stay. Summary Hospital Course Hospital course: This is a 37-year-old woman with developmental delay who lives at the [facility]. She hadbeen cared for at an outside hospital, being discharged couple days before presenting here, for periorbital cellulitis. The caregiver noticed worsening appearance of the patient's face. The patient has also been picking on the skin of her face and she reported that the skin on her face was itching.In the emergency room she had an elevated [...] steady improvement. GHULAM testing was done because therash in her face looks so dry and [...] before she will be transferred back to [place]. She was also given the discharge instructions [...] RBC 3.77, Hgb 11.7 L, Hct 35.5, MCV93.9, MCH 31.0, MCHC 33.0, RDW 13.7, Plt Count 456 H, MPV 6.1 L, Neut % (Auto) N/A, Lymph % (Auto) N/A, [place] % (Auto) N/A, Eos % (Auto) N/A, Baso % (Auto) N/A, Nucleat RBC Rel Count N/A, Neut # (Auto) N/A, Lymph # (Auto) N/A, [place] # (Auto) N/A, Eos # (Auto) N/A, [...] 60.0, Glucose 107 H, Calcium 8.9, Total Bilirubin0.2 L, AST 13, ALT 15, Alkaline Phosphatase [...] <Electronically signed by Rico Romero DO> 06/01/[address] [facility] Work Phone: 1(119) 222-866104-09-2024 Progress note Author Rico Romero [facility] May 31, 2023 11:47amNote Date/TimeApril 2023 11:47[place] [address] Hospitalist Progress Note Signed Patient: Migdalia Connelly MR#: [id number] : 1985 Acct:[id number] Age/Sex: 37 / F Adm Date: 4 Loc: 4N Room: 2Q3789-5 Type: ADM IN Attending Dr: Rico Romero DO Copies to: ~ Date of Service: 05/31/2023 Subjective Subjective Narrative: Patient states that her symptoms that caused her to come to this hospital for hot flash. She saysthat that is better at this time. Taking [...] Capsule PO 05/28/24 19:29 40 mg DAILY@1929 [facility] Administration Bisacodyl 10 mg 05/29/23 15:58 Bisacodyl [...] Capsule PO 05/28/24 19:29 200 mg BID@899,1929 [facility] Administration Emollient Ointment 1 applic 05/29/23 18:01 05/30/23 11:30 Petrolatum,White 99 Gm Oint...G. TOPICAL 1 applic BID PRN Administration dry skin Enoxaparin Sodium 40 mg 05/30/23 10:00 05/31/23 08:18 Enoxaparin 40 Mg/0.4 Ml Syringe SUBCUT 05/29/24 09:59 40 mg DAILY@10 [facility] Administration Fenofibrate 145 mg 05/29/23 19:30 05/30/23 20:04 Fenofibrate Nanocrystallized 145 Mg Tablet PO 05/28/24 19:29 145 mg DAILY@1929 [facility] Administration Fluticasone Propionate 2 spray 05/29/23 18:01 Fluticasone Propionate [place] 120 [place]/16 Gm Bottle INTRANASAL 05/28/24 18:00 DAILY PRN allergy symptoms Guanfacine HCl 2 mg 05/29/23 19:30 05/31/23 08:15 Guanfacine 1 Mg Tablet PO 05/28/24 19:29 2 mg TID@0900,1400,1929 [facility] Administration Hydralazine HCl 10 mg 05/29/23 16:01 [...] [Efudex] TOPICAL 05/28/24 20:59 Not Given BID [facility] Non-Formulary Medication 1 tab 05/30/23 09:00 [...] Signed By: <Electronically signed by Rico Romero, DO> 05/31/[address] [facility] Work Phone: 1(836) 306-457404-08-2024 Progress note Author Anamaria Benton [facility] May 30, 2023 12:21pmNote Date/TimeApril 2023 12:21[place] [address] Hospitalist Progress Note Signed Patient: Migdalia Connelly MR#: [id number] : 1985 Acct:[id number] Age/Sex: 37 / F Adm Date: 4 Loc: 4 Room: 5K3650-1 Type: ADM INOo Attending Dr: Anamaria Benton MD Copies to: ~ Date of Service: 05/30/2023 Subjective Subjective Narrative: Patient examined at bedside and continues to complain of facial discomfort. Noted to have bilateralperiorbital edema and cellulitis. Her labs showing leukocytosis [...] Unit Tablet PO 05/28/24 19:29 1 tab BID@09,1929 [facility] Administration Calcium Carbonate 500 mg 05/29/23 18:01 Calcium Carbonate 500 Mg Tab.Chew PO Q4HR PRN dyspepsia Calcium Polycarbophil 1,250 mg 05/30/23 09:00 05/30/23 08:25 Calcium Polycarbophil 625 Mg Tablet PO 05/29/24 08:59 1,250 mg DAILY [facility] Administration Carbamazepine 400 mg 05/29/23 19:30 05/29/23 20:03 Carbamazepine Xr.12hr 200 Mg Tab.Er.12h PO 05/28/24 19:29 400 mg DAILY@1929 [facility] Administration Clonidine HCl 0.2 mg 05/29/23 19:30 05/30/23 11:29 Clonidine 0.2 Mg Tablet PO 05/28/24 19:29 0.2 mg 0900,1400,1929 [facility] Administration Diazepam 5 mg 05/29/23 18:15 Diazepam 5 Mg Tablet PO 11/25/23 18:14 ONCE PRN 1 HOUR PRIOR TO PROCEDURE Dicyclomine HCl 20 mg 05/29/23 19:30 05/30/23 08:25 Dicyclomine 20 Mg Tablet PO 05/28/24 19:29 20 mg BID@899,1929 [facility] Administration Diphenhydramine HCl 25 mg 05/29/23 15:51 05/29/23 20:04 Diphenhydramine 25 Mg Capsule PO 05/28/24 15:50 25 mg Q8H PRN Administration Severe rash or Itching Docusate Sodium 200 mg 05/29/23 19:30 05/30/23 08:24 Docusate 100 Mg Capsule PO 05/28/24 19:29 200 mg BID@0900,0 [facility] Administration Emollient Ointment 1 applic 05/29/23 18:01 05/30/23 11:30 Petrolatum,White 99 Gm Oint...G. TOPICAL 1 applic BID PRN Administration dry skin Enoxaparin Sodium 40 mg 05/30/23 10:00 05/30/23 09:11 Enoxaparin 40 Mg/0.4 Ml Syringe SUBCUT 05/29/24 09:59 40 mg DAILY@10 [facility] Administration Fenofibrate 145 mg 05/29/23 19:30 05/29/23 20:00 Fenofibrate Nanocrystallized 145 Mg Tablet PO 05/28/24 19:29 145 mg DAILY@1930 [facility] Administration Fluticasone Propionate 2 spray 05/29/23 18:01 Fluticasone Propionate [place] 120 [place]/16 Gm Bottle INTRANASAL 05/28/24 18:00 DAILY PRN [...] signed by Anamaria Benton MD> 05/30/[address] [facility] Work Phone: 1(170) 805-816404-07-2024 History and physical note Author Arvind Regan [facility] May 29, 2023 4:12pmNote Date/TimeApr2023 4:01pm[place] [address] Hospitalist H&P Signed Patient: Migdalia Connelly MR#: [id number] : 1985 Acct:[id number] Age/Sex: 37 / F Adm Date: 4 Loc: 4 Room: [address] [place] [address] Type: ADM INOo Attending Dr: Arvind Regan DO Copies to: NON STAFF Arvind Regan DO~ HPI DATE OF EXAMINATION: 05/29/23 CHIEF COMPLAINT: Concern for worsening facial cellulitis HISTORY OF PRESENT ILLNESS: This is a 37-year-old female with MRDD who lives in a fdc who [facility] caregiver with concern for worsening facial cellulitis. Patient was just discharged from [facility] on Tuesday after being treated for periorbital cellulitis. She was discharged home with doxycycline p.o. which she has been taking as per caregiver. Caregiver noticed worsening erythema.Patient has been picking on her skin on the face. She reports that it is itching. Patient is a poorhistorian due to MRDD but she is able to answer some of my questions. History provided by caregiverby discussion with ER provider and review of medical chart. Patient reports erythema and swelling around her eyes bilaterally. She denies pain with extraocularmovement. No changes in vision. No fever. No nausea vomiting or abdominal pain. Review of Systems Review of Systems All other systems reviewed & are negative unless noted below or in HPI [facility] Medical History (Updated 05/29/23 @ 16:10 by [...] 13:36 Lymph % (Auto) N/A 05/29/23 13:36 [place] % (Auto) N/A 05/29/23 13:36 Eos % (Auto) N/A 05/29/23 13:36 Baso % (Auto) N/A 05/29/23 13:36 Nucleat RBC Rel Count N/A 05/29/23 13:36 Neut # (Auto) N/A 05/29/23 13:36 Lymph # (Auto) N/A 05/29/23 13:36 [place] # (Auto) N/A 05/29/23 13:36 Eos # [...] periorbital cellulitis where she was hospitalized at [facility] and treated with IV antibiotics and discharged on doxycycline. -Will observe the patient to medical floor -Will cover the patient with antibiotics for possible periorbital cellulitis although in my opinionrash is very symmetric and consistent with malar rash/inflammation versus allergic reaction rather than infection which has caused her to have itching and pain and she has been picking on it likely ca using superficial infection/impetigo. Follow-up blood culture obtained in [...] <Electronically signed by Arvind Regan DO> 05/29/23 [facility] Work Phone: 1(135) 914-147604-03-2024 Miscellaneous Notes* Telephone Encounter - Cesia Lang - 05/25/2023 11:38 AM EDT Called and scheduled new pt appt with nurse from [facility]. Labs ordered and faxed to facility. [facility] Telephone encounter Note* Telephone Encounter - Cesia Petersenev - 05/25/2023 11:38 AM EDT Called and scheduled new pt appt with nurse from [facility]. Labs ordered and faxed to facility. [facility] [employer] [id number] History of Present illness Narrative* Scarlett Albarran DDS - 06/10/2022 1:29 PM EDT ----- May at 3:52:48 PM ----- ----- Provider: [id number] Resident Betsy -- Clinic: [place] ----- OR EVALUATION Patient presents for evaluation [...] treatment in the OR was sent out [phone] NOTE: Note: Pt seen in the OR about 2 years ago. Next Visit: OR ----- Signed on May at 4:11:20 PM ----- ----- Provider: [id number] Ed Obrien DDS -- Clinic: [place] ----- documented in this encounterMetroHealthEvaluation + Plan note No data available for this section [facility]* Diagnosis Onset Date Resolution Status Periorbital cellulitis [facility] Work Phone: Evaluation note* Diagnosis Onset Date Resolution Status Bipolar disorder acuteFailure of outpatient treatmentacuteHypercholesterolemiaacuteHypertension acuteModerate intellectual disabilityacutePeriorbital cellulitisacutePTSD (post- traumatic stress disorder)acuteSeizure disorderacute [facility] Work Phone: Evaluation note* Diagnosis Onset Date Resolution Status Bipolar disorder acuteHypercholesterolemiaacuteHypertensionacutePTSD (post-traumatic stress disorder)acuteSeizure disorderacutePeriorbital cellulitisresolved [facility] Work Phone: Evaluation note* Diagnosis Caries- Primary Unspecified dental caries documented in this encounter [facility]* Diagnosis Lip licking dermatitis [facility]* Diagnosis Caries- Primary Unspecified dental caries [facility]* Diagnosis Onychomycosis- Primary Dermatophytosis of nail Pain in right toe(s) Pain in left toe(s) documented in this encounter [facility] Healthcare[facility] note* Diagnosis Pre-op evaluation- Primary Preoperative examination, unspecified documented [facility] this encounter [facility]* Diagnosis Onychomycosis- Primary Dermatophytosis of nail Pain in right toe(s) Pain in left toe(s) documented in this encounter [facility] HealthcareEvaluation note* Diagnosis Convulsions, unspecified convulsion type (CMS/HCC)- Primary Hyponatremia Hyposmolality and/or hyponatremia Developmental delay Unspecified delay in development Anger reaction Undersocialized conduct disorder, aggressive type, unspecified documented in this encounter [facility] HealthcareEvaluation note* Diagnosis Hyponatremia- Primary Hyposmolality and/or [...] aggressive type, unspecified documented in this encounter [facility] HealthcareEvaluation note* Diagnosis Encounter for breast and pelvic examination- Primary [facility]* Diagnosis Onychocryptosis- Primary Ingrowing nail Pain in left toe(s) Abscess, toe, left documented in this encounter [facility] HealthcareEvaluation note* Diagnosis Abscess, toe, left- Primary Onychocryptosis Ingrowing nail documented in this encounter [facility] HealthcareEvaluation note* Diagnosis Exostosis of right foot- Primary Other enthesopathy of right foot and ankle Pain in right toe(s) Right foot pain Pain in soft tissues of limb Onychomycosis Dermatophytosis of nail Pain in left toe(s) documented in this encounter [facility] HealthcareEvaluation note* Diagnosis Mastodynia, female- Primary Mass of right breast, unspecified quadrant [facility]* Diagnosis Caries- Primary Unspecified dental caries [facility]* Diagnosis Mass of right breast, unspecified quadrant- Primary Breast skin changes Mastodynia, female [facility]* Diagnosis Exostosis of right foot- Primary Other enthesopathy of right foot and ankle Right foot pain Pain in soft tissues of limb documented in this encounter [facility] HealthcareEvaluation noteNo assessment information availableMer[facility] Work Phone: Evaluation note* Diagnosis Mastodynia, female- Primary [facility]* Diagnosis Exostosis of right foot- Primary Other enthesopathy of right foot and ankle documented in this encounter [facility] HealthcareEvaluation note* Diagnosis Caries- Primary Unspecified dental caries Pre-op evaluation- Primary Preoperative examination, unspecified Body mass index (BMI) 30.0-30.9, adult Caries Unspecified dental caries [facility]* Diagnosis Caries- Primary Unspecified dental caries [facility]* Diagnosis Onychomycosis- Primary Dermatophytosis of nail Pain in left toe(s) Pain in right toe(s) documented in this encounter [facility] Healthcare[facility] note* Diagnosis Cellulitis of right breast- Primary [facility] encounter [facility]* Diagnosis Onset Date Resolution Status Admit Date Convulsions resolvedOctober 2024 9:02am [facility] Work Phone: History and physical note Author Arvind Regan [facility] May 29, 2023 4:12pmNote Date/TimeApril 2023 4:01pm[place] [address] Hospitalist H&P Signed Patient: Migdalia Connelly MR#: [id number] : 1985 Acct:[id number] Age/Sex: 37 / F Adm Date: 4 Loc: 4N Room: [address] [place] [address] Type: ADM INOo Attending Dr: Arvind Regan DO Copies to: NON STAFF Arvind Regan DO~ HPI DATE OF EXAMINATION: 05/29/23 CHIEF COMPLAINT: Concern for worsening facial cellulitis HISTORY OF PRESENT ILLNESS: This is a 37-year-old female with MRDD who lives in a fdc who [facility] with her caregiver with concern for worsening facial cellulitis. Patient was just discharged from [facility] on Tuesday after being treated for periorbital cellulitis. She was discharged home with doxycycline p.o. which she has been taking as per caregiver. Caregiver noticed worsening erythema.Patient has been picking on her skin on the face. She reports that it is itching. Patient is a poorhistorian due to MRDD but she is able to answer some of my questions. History provided by caregiverby discussion with ER provider and review of medical chart. Patient reports erythema and swelling around her eyes bilaterally. She denies pain with extraocularmovement. No changes in vision. No fever. No nausea vomiting or abdominal pain. Review of Systems Review of Systems All other systems reviewed & are negative unless noted below or in HPI [facility] Medical History (Updated 05/29/23 @ 16:10 by [...] 13:36 Lymph % (Auto) N/A 05/29/23 13:36 [place] % (Auto) N/A 05/29/23 13:36 Eos % (Auto) N/A 05/29/23 13:36 Baso % (Auto) N/A 05/29/23 13:36 Nucleat RBC Rel Count N/A 05/29/23 13:36 Neut # (Auto) N/A 05/29/23 13:36 Lymph # (Auto) N/A 05/29/23 13:36 [place] # (Auto) N/A 05/29/23 13:36 Eos # [...] periorbital cellulitis where she was hospitalized at [facility] and treated with IV antibiotics and discharged on doxycycline. -Will observe the patient to medical floor -Will cover the patient with antibiotics for possible periorbital cellulitis although in my opinionrash is very symmetric and consistent with malar rash/inflammation versus allergic reaction rather than infection which has caused her to have itching and pain and she has been picking on it likely ca using superficial infection/impetigo. Follow-up blood culture obtained in [...] signed by Arvind Regan DO> 05/29/[address] [facility] Work Phone: Hospital Discharge instructions No [...] we are sending home at this time: [employer].[facility] Work Phone: Hospital Discharge instructions Additional Instructions Take simethicone as prescribed for abdominal distention. Take Metamucil Colace and MiraLAX as prescribed constipation. Make sure to take drinking plenty of water each day. Take Naprosyn as prescribed for headache. Follow-up with your primary care provider for ongoing treatment.[facility] Work Phone: InstructionsNot on filedocumented in [...] encounter [facility]Pro[facility] Narrative* Procedure NameResponsible AnesthesiologistAnesthesia Start TimeAnesthesia Stop TimeDENTAL Orqudiea Arcos MD12/15/23 07327012/15/23 5799UslrRndyVwbhqHsmbosa48/24/[id number] Start Lcsx2195Yq Dfqae7615Eitqanannpqf VerifyThe anesthesia team has reviewed the patient's vital signs immediately prior to induction. MAXIMO Soliz0833Procedure TimeoutConfirm the correct patient identity: Yes Confirm the correct procedure: Yes Confirm the correct procedural site: Yes Confirm signed informed consent: Yes Confirm prophylactic antibiotic administration (if applicable): N/A Discuss fire risk mitigation (if applicable): Yes Anesthesia Staff MAXIMO Soliz Proceduralist Altagracia Additional Staff 0834An Nutminqkk0068Llvonnkfht Cmmbnjn6861we stop [id number] HandoffI completed my SBAR handoff to the receiving nurse in the receiving unit.0925AN Stop* NameTotalglycopyrrolate (ROBINUL) injection 0.2 mg/mL0.1 mg Midazolam 1 mg/mL5 mgDexmedetomidine injection 100 mcg/mL56 mcgKetorolac 30 mg/mL15 mgLactated Ixvucbs48 mL * Agents Name N2O O2 Flow Rate (l/min) * Blood No blood administrations on file. TypeDetailsPlacementRemovalSurgical Wound06/09 0000 by Carola Hansen RNSurgical Wound09/15/18; 1148; Incision; N/A; Mouth09/15/18 1148 by Mayte Poole RNWound07/14/20; 1023; Bilateral; Other (Comment); Surgical - Ujohizaa86/24/21 1023 by Felix Oro RNAirway Gdjmqjr52/24/24; 0833; Nasal Opafnwq91/24/24 0833 by Domingo Carrion APRN-CRNAdocumented in this encounter [facility]Pro[facility] Narrative* Procedure NameResponsible AnesthesiologistAnesthesia Start TimeAnesthesia Stop TimeDENTAL Orquidea Arcos MD12/15/23 34253312/15/23 2607PcsvMzwhTkjddHuduidy49/24/[id number] Start Ljwl2341St Cfhlo9547Xdxeptynvdvw VerifyThe anesthesia team has reviewed the patient's vital signs immediately prior to induction. MAXIMO Soliz0833Procedure TimeoutConfirm the correct patient identity: Yes Confirm the correct procedure: Yes Confirm the correct procedural site: Yes Confirm signed informed consent: Yes Confirm prophylactic antibiotic administration (if applicable): N/A Discuss fire risk mitigation (if applicable): Yes Anesthesia Staff MAXIMO Soliz Proceduralist Altagracia Additional Staff 0834An Voygtcbyo0147Yaskfxcjbi [id number] stop [id number] HandoffI completed my SBAR handoff to the receiving nurse in the receiving unit.0925AN Stop* NameTotalglycopyrrolate (ROBINUL) injection 0.2 mg/mL0.1 mg Midazolam 1 mg/mL5 mgDexmedetomidine injection 100 mcg/mL56 mcgKetorolac 30 mg/mL15 mgLactated Gsyueuk29 mL * Agents Name N2O O2 Flow Rate (l/min) * Blood No blood administrations on file. TypeDetailsPlacementRemovalSurgical Wound06/09 0000 by Carola Hansen RNSurgical Wound09/15/18; 1148; Incision; N/A; Mouth09/15/18 1148 by Mayte Poole RNWound07/14/20; 1023; Bilateral; Other (Comment); Surgical - Riqymoml47/24/21 1023 by Felix Oro RNAirway Cwqzwyl28/24/24; 0833; Nasal Cannula; 12/15/23; 0833 by Domingo Carrion APRN-CRNA12/15/23 0920 by Domingo Carrion APRN-CRNAdocumented in this encounter [facility]Progress note No data available for this section [facility]Reason for referral (narrative)No reason for referral information available[facility] Work Phone: Reason for visit Narrative* Service Level Authorization (Routine) - ClosedSpecialtyDiagnoses / ProceduresReferred By ContactReferred To ContactAnesthesiology Diagnoses Caries Sabra Frias, DMD [address] [place] [address] Phone: tel: fax: [facility] PRE ADMISSION TESTING [address] [place] [address] Phone: tel: Referral IDStatusReasonStart DateExpiration DateVisits RequestedVisits [id number]/24/202410/ [facility]Reason for [facility] Narrative* Consultation (Routine) - Pending Review SpecialtyDiagnoses / ProceduresReferred By ContactReferred To Contact Nephrology Diagnoses Hyponatremia Damien Jones, SERVICE SUPERINTENDENT-CABLE CUTTER AND SWAGER [address] [place] [address] Ph[address] Nephrology geni [place] [address] [place] [address] Referral IDStatusReasonStart DateExpiration DateVisits RequestedVisits [id number] Review Specialty Services Required [facility] CenterReason for visit Narrative* Auth/Cert (Routine)Specialty Diagnoses / ProceduresReferred By ContactReferred To ContactAmbulatory Surgery Diagnoses Caries Caries [K02.9] Procedures UNLISTED PROCEDURE, DENTOALVEOLAR STRUCTURES ANESTHESIA, INTRAORAL PROC, W/BX; NOS DENTAL RESTORATIONS Og Grant, DDS [address] [place] [address] Phone: tel: fax: [facility] [address] [place] [phone] Phone: tel: Referral IDStatusReasonStart DateExpiration DateVisits RequestedVisits [id number] [facility] Summary Purpose Family History No Family [...] Chief Complaint Cellulitis on face Cellulitis on faceReason for VisitPeriorbital cellulitis Chief Complaint Cellulitis on face Cellulitis on faceReason for VisitBipolar disorder Failure of outpatient treatment Hypercholesterolemia Hypertension Moderate intellectual disability Periorbital cellulitis PTSD (post-traumatic stress disorder) Seizure disorder Chief Complaint Cellulitis on face Cellulitis on face Cellulitis on face flu like symptomsReason for VisitBipolar disorder Hypercholesterolemia Hypertension PTSD (post-traumatic stress disorder) Seizure disorder Periorbital cellulitis Chief Complaint Admit Date Unknown August 23, 2024 6:07p m Chief Complaint Admit Date 3-4 month follow up December 19, 2024 9 :02am Reason for Visit Admit Date Convulsions December 19, 2024 9 :02am Reason for Referral SpecialtyDiagnoses / ProceduresReferred By ContactReferred To Contact Anesthesiology Diagnoses Caries Sabra Frias DMD [address] [place] [address] [facility] PRE ADMISSION TESTING [address] [place] [address] Referral IDStatusReasonStart DateExpiration DateVisits RequestedVisits [id number]/24/202410/24/202511 Scheduling Instructions Your surgical team will reach out to you to schedule a pre-admission testing appointment. QuestionAnswer Reason for consult? Recommended PAT Risk Score SpecialtyDiagnoses / ProceduresReferred By ContactReferred To Contact Anesthesiology Diagnoses Caries Og Grant, HALINA [address] [place] [address] [facility] PRE ADMISSION TESTING [address] [place] [address] Referral IDStatFaizan DateExpiration DateVisits RequestedVisits [id number]/28/20248/28/202511 Scheduling Instructions Your surgical team will reach out to you to schedule a pre-admission testing appointment. QuestionAnswer Reason for consult? Recommended PAT Risk Score Additional Source Comments INFORMATION SOURCE (unrecogn ized section and content) DATE CREATED AUTHOR 05/12/2018 [facility] DATE CREATED AUTHOR AUTHOR'S ORGANIZ ATION 07/30/2022 [facility] DATE CREATED AUTHOR AUTHOR'S ORGANIZ ATION 04/21/2023 [facility] DATE CREATED AUTHOR AUTHOR'S ORGANIZ ATION 08/12/2024 [facility] DATE CREATED AUTHOR AUTHOR'S ORGANIZ ATION 08/26/2024 [facility] DATE CREATED AUTHOR AUTHOR'S ORGANIZ ATION 09/08/2024 [facility] DATE CREATED AUTHOR AUTHOR'S ORGANIZ ATION 10/15/2024 [facility] DATE CREATED AUTHOR AUTHOR'S ORGANIZ ATION 11/15/2024 [facility] DATE CREATED AUTHOR AUTHOR'S ORGANIZ ATION 11/25/2024 [facility] Patient Care team informatio n (unrecognized section and content) Team Status: Active Member Role Status Dates Lio Muñoz DO Primary Care Provider Active Team Status: Active Member Role Status Dates NON STAFF Primary Care Provider Active Start: May 29, 2023 Aryan Pritchard ProviderActiveStart: May 29, 2023 Margie Zeng Provider, Attending Provider, Other ProviderActiveStart: May 29, 2023 Team Status: Inactive Member Role Status Dates Venita Amanda APRN Emergency Provider Active Start: May 30, 2023 End: June 01, 2023Arvind Regan , DOAdmit ProviderActiveStart: May 30, 2023 End: June 01, 2023Lucien Mora ProviderActiveStart: May 30, 2023 End: May 31reggie Gates Muñoz , DOPrimary Care ProviderActiveStart: May 30, 2023 End: June 01, 2023 Team Status: Active Member Role Status Dates NON STAFF Primary Care Provider Active Team Status: Active Member Role Status Dates NON STAFF Primary Care Provider Active Start: May 29, 2023 Aryan Pritchard ProviderActiveStart: May 29, 2023 Yaneyda Poncein , DOAdmit Provider, Attending ProviderActiveStart: May 29, 2023 Team Status: Active Member Role Status Dates Venita Amanda SERVICE SUPERINTENDENT Emergency Provider Active Start: May 29, 2023 End: June 01, 2023Yaneyda Murdocksein , DOAdmit Provider, Attending ProviderActive Start: May 29, 2023 End: June 01, 2023Rico Romero DOOther ProviderActiveStart: May 29, 2023 End: May 31reggie Gates Muñoz , DOPrimary Care ProviderActiveStart: May 29, 2023 End: May 31afik Massouh , MDActiveStart: May 29, 2023 End: June 01, 2023 Team Status: Active Member Role Status Dates NON STAFF Primary Care Provider Active Start: May 29, 2023 End: May 31Aryan Naidu ProviderActiveStart: May 29, 2023 End: June 01, 2023Arvind Murdocksein , DOAdmit Provider, Attending Provider, Other ProviderActiveStart: May 29, 2023 End: June 01, 2023 Team Status: Inactive Member Role Status Dates Lio Muñoz DO Primary Care Provider Active Start: August 06, 2023 End: August 07, 2023Dorcas Gilliam ProviderActiveStart: August 06, 2023 End: August 07, 2023Team MemberRelationshipSpecialtyStart DateEnd Date Lio Muñoz MD [address] [place] [address] PCP - GeneralFamily Medicine11/09/23 Ramone Herrera DO [address] [phone] Referring PhysicianNeurology05/19/23Team MemberRelationshipSpecialtyStart DateEnd Lio Muñoz MD [address] [place], [place] [id number] PCP - GeneralFamily Medicine11/09/23 Ramone Herrera DO [address] [phone] Referring PhysicianNeurology05/19/23Team MemberRelationshipSpecialtyStart DateEnd Lio Muñoz MD [address] [place] [address] PCP - GeneralFamily Medicine11/09/23 Ramone Herrera DO [address] [phone] Referring PhysicianNeurology05/19/23Team MemberRelationshipSpecialtyStart End Lio Muñoz MD [address] [place], [place] [address] PCP - GeneralFamily Medicine11/09/23 Ramone Herrera DO [address] [phone] Referring PhysicianNeurology05/19/23Team MemberRelationshipSpecialtyStart DateEnd Lio Muñoz MD [address] [place], [place] [address] PCP - GeneralFamily Medicine11/09/23 Ramone Herrera DO [address] [place] [address] Referring PhysicianNeurology05/19/23Team MemberRelationshipSpecialtyStart DateEnd Date Lio Muñoz MD [address] [place] [address] PCP - GeneralFamily Medicine11/09/23 Ramone Herrera DO [address] [place] [address] Referring PhysicianNeurology05/19/23Team MemberRelationshipSpecialtyStart DateEnd Date Lio Muñoz MD [address] [place] [address] PCP - GeneralFamily Medicine11/09/23 Ramone Herrera DO [address] [place] [address] Referring PhysicianNeurology05/19/23Team MemberRelationshipSpecialtyStart End Lio Muñoz MD [address] [place] [address] PCP - GeneralFamily Medicine11/09/23 Ramone Herrera DO [address] [place] [address] Referring PhysicianNeurology05/19/23Team MemberRelationshipSpecialtyStart End Date Lio Muñoz MD [address] [place] [address] PCP - GeneralFamily Medicine11/09/23 Ramone Herrera DO [address] [place] [address] Referring PhysicianNeurology05/19/23Team MemberRelationshipSpecialtyStart DateEnd Date Lio Muñoz MD [address] [place], [place] [phone] PCP - GeneralFamily Medicine11/09/23 Ramone Herrera DO [address] [place] [address] Referring PhysicianNeurology05/19/23Team MemberRelationshipSpecialtyStart End Date Lio Muñoz MD [address] [place], [place] [phone] PCP - GeneralFamily Medicine11/09/23 Ramone Herrera DO [address] [place] [address] Referring PhysicianNeurology05/19/23Team MemberRelationshipSpecialtyStart End Lio Muñoz MD [address] [place] [address] PCP - GeneralFamily Medicine11/09/23 Ramone Herrera DO [address] [place] [address] Referring PhysicianNeurology05/19/23Team MemberRelationshipSpecialtyStart End Date Lio Muñoz DO [address] [place] [address] PCP - GeneralFamily Medicine08/07/24Team MemberRelationshipSpecialtyStart DateEnd Date Lio Muñoz DO [address] [place] [address] PCP - GeneralFamily Medicine08/07/24Team MemberRelationshipSpecialtyStart DateEnd Date Lio Muñoz MD [address] [place] [address] PCP - GeneralFamily Medicine11/09/23 Ramone Herrera DO [address] [place] [address] Referring PhysicianNeurology05/19/23Team MemberRelationshipSpecialtyStart DateEnd Date Lio Muñoz MD [address] [place] [address] PCP - GeneralFamily Medicine11/09/23 Ramone Herrera DO [address] [place] [address] Referring PhysicianNeurology05/19/23 Team Status: Inactive Member Role Status Dates Lio Muñoz DO Attending Provider Active Start: August 23, 2024 End: August 23, 2024Team MemberRelationshipSpecialtyStart DateEnd Date Lio Muñoz DO [address] [place] [address] PCP - GeneralFamily Medicine08/07/24Team MemberRelationshipSpecialtyStart DateEnd Date Lio Muñoz MD [address] [place] [address] PCP - GeneralFamily Medicine11/09/23 Ramone Herrera DO [address] [phone] Referring PhysicianNeurology05/19/23Team MemberRelationshipSpecialtyStart DateEnd Date Lio Muñoz MD [address] [place], [place] [address] PCP - GeneralFamily Medicine11/09/23 Ramone Herrera DO [address] [place], [place] [phone] Referring PhysicianNeurology05/19/23Team MemberRelationshipSpecialtyStart DateEnd Date Lio Muñoz MD [address] [place] [address] PCP - GeneralFamily Medicine11/09/23 Ramone Herrera DO [address] [phone] Referring PhysicianNeurology05/19/23Team MemberRelationshipSpecialtyStart End Lio Muñoz MD [address] [place] [address] PCP - GeneralFamily Medicine11/09/23 Ramone Hererra DO [address] [phone] Referring PhysicianNeurology05/19/23Team MemberRelationshipSpecialtyStart DateEnd Date Lio Muñoz DO [address] [place] [address] PCP - [facility]08/07/24Team MemberRelationshipSpecialtyStart DateEnd Date Lio Muñoz DO [address] [place] [address] PCP - [facility]08/07/24 Team Status: Active Member Role/Relationship Status Dates NON STAFF Primary Care Provider Active Team Status: Inactive Member Role/Relationship Status Dates LEONARD Paredes Attending Provider Active Start: December 19, 2024 End: December 19, 2024NON STAFFPrimary Care ProviderActiveStart: December 19, 2024 End: December 19, 2024 Goals (unrecognized section and content) Goals may be documented in a n alternate section Reason for Visit (unrecogniz ed section and content) ReasonOnset LlqvYqgqsqahCDO08/02/2024Anesthesia consent obtainedReasonComments Toenail CareNon dm nail careReasonCommentsToenail CareNon DM nail careReason CommentsConvulsionsReasonCommentsSeizuresReasonCommentsMedicare breast and PelvicReasonCommentsIngrown ToenailLt great toenailReasonCommentsFollow-upF/U LT grt nail avulsionReasonCommentsToenail CareNon DM nail careFoot PainRT foot painReasonCommentsBreast LumpReasonCommentsNew PatientMassRight breast mass SpecialtyDiagnoses / ProceduresReferred By ContactReferred To ContactBreast Surgery Diagnoses Mastodynia, female Mass of right breast, unspecified quadrant Linn Red MD [address] [address] Phone: tel: fax: Yesenia Serrano MD [address] [facility], [address] [address] Phone: tel: fax: Referral IDStatusReasonStart DateExpiration DateVisits RequestedVisits [id number] Review/[id number]Z/U RT foot joint inj u3CuisepYajcumjmOzqmxh-wzNzuuetMoehqbkmCigzyunxfnB/U LT foot 1st met joint inj s2EtgbohQwsuc SlzjPsqpenehCknwzy94/15/2025DD adult dental restorations 10/08/24 under [facility] at [place]. PAT completed 09/21/24. Consents obtained from Guardian Jessica Celso. KIM RN spoke to Yazmin MARES at [facility] on 10/05/24. Confirmed NPO after 2200. [place] address [id number] [place] [address] Rd - [place] entrance. 0630 arrival time. Staff from [facility] will be accompanying pt DOS.ReasonCommentsPre-surgical EvaluationReasonCommentsFollow-up Right breast mass Scheduled Active and Recently Administ ered Medications (unrecognized section and content) Medication Order// aprepitant (EMEND) capsule (COMPLETED) 40 mg, Oral, ONCE, 1 dose, On Tue10/08/24 at 0730, Pre-op * 0723 (Given - Provider: Artur Sinclair) scopolamine (TRANSDERM-SCOP) 1 MG/3DAYS patch 1 mg, Transdermal, STAT, 1 dose, On Tue10/08/24 at 0730, Pre-op * 0723 (Patch Applied - Provider: Artur Sinclair) Medication Order// acetaminophen (TYLENOL) tablet 650 mg, Oral, PACU ONCE PRN, Starting on Tue10/08/24 at 0803, Until Tue10/08/24 at 1402, Mild Pain (pain score 1,2,3), PACU Now gelatin adsorbable (SURGIFOAM) 12-7 MM sponge (CANCELED) PRN, Starting on Tue10/08/24 at 0855, Until Tue10/08/24 at 0938, Intra-op * 0845 (Given - Provider: Risa Black DDS) HYDROmorphone (DILAUDID) 0.2 MG/ML injection 0.2 mg 0.2 mg, Intravenous, PACU EVERY 15 MIN PRN X 4 DOSES, 4 doses, Starting on Tue10/08/24 at 0803, Until Tue10/10/24 at 0802, Moderate Pain (pain score 4,5,6), PACU Now HYDROmorphone (DILAUDID) 1 mg/mL injection 0.5 mg, Intravenous, PACU EVERY 15 MIN PRN X 4 DOSES, 4 doses, Starting on Tue10/08/24 at 0803, Until Tue10/09/24 at 2359, Severe Pain (pain score 7,8,9,10), PACU Now lidocaine-EPINEPHrine (XYLOCAINE) 2 %-1:545477 injection (CANCELED) PRN, Starting on Tue10/08/24 at 0823, Until Tue10/08/24 at 0938, Intra-op * 0823 (Given - Provider: Risa Black DDS) naloxone (NARCAN) 0.4 MG/ML injection 0.4 mg, Intravenous, PRN, Starting on Tue10/08/24 at 0803, Until Discontinued, Respiratory Rate Less Than 8 for adults and less than 12 for Peds or for suspected overdose, PACU Now ondansetron (ZOFRAN) 4 MG/2ML injection 4 mg, Intravenous, PACU ONCE PRN, Starting on Tue10/08/24 at 0803, Until Tue10/08/24 at 1402, Nausea, Vomiting, PACU Now oxyCODONE immediate release tablet 10 mg, Oral, PRN, 1 dose, Starting on Tue10/08/24 at 0803, Until Discontinued, Moderate Pain (pain score 4,5,6), PACU Now sodium chloride 0.9 % injection 3 mL, Intravenous, PRN, Starting on Tue10/08/24 at 0803, Until Discontinued, For medication administration and blood draw, PACU Now FOR RECORDS PERTAINING TO PATIENTS WHO ARE [...] BE BASED ON THE PRIMARY CLINICAL RECORDS. [facility] [employer] [facility]. provides no warranty or guarantee of the accuracy or completeness of information in this document.
--- OUTSIDE RECORDS SUMMARY | 2025-01-05 17:42 | XMS_ITS | Clinical Summary ---
Author Organization [facility] Address [id number] [address] [place] [address] Care Team Providers Care Bottling Attendant Name Role Phone Wanda Lio Kody SUN Primary Care Provider Allergies Active AllergyReactionsCriticalityNoted TlwbIjbvdepmRhngivgcarfj86/18/2024 Tiudzhjcfkk38/18/8451Wiiagwxppv92/18/9665Hzqchrqnr62/18/8507Hcgounbiqj81/18/2024 Other06/09/2012 [employer] Medications MedicationSigDispense QuantityRefillsLast FilledStart DateEnd DateStatus atomoxetine (STRATTERA) 40 mg capsule Take 1 capsule (40 mg total) by mouth in the morning.Active atomoxetine (STRATTERA) 60 mg capsule Take 1 capsule (60 mg total) by mouth in the morning. mORNING.Active acetaminophen (TYLENOL) 325 mg tablet Take 1 tablet (325 mg total) by mouth every 4 (four) hours as needed.Active calcium carbonate-vitamin D3 600 mg(1,500mg) -800 units tablet Take 1 tablet by mouth in the morning and 1 tablet before bedtime.04/26/2023 Active fluticasone propionate (FLONASE) 50 mcg/actuation nasal spray Administer 1 spray into each nostril in the morning.05/29/2023ctive guanFACINE (TENEX) 2 mg tablet Take 1 tablet (2 mg total) by mouth nightly.05/29/2023ctive lamoTRIgine (LaMICtal) 100 mg tablet Take 1 tablet (100 mg total) by mouth in the morning.07/21/2023ctive lamoTRIgine (LaMICtal) 150 mg tablet Take 1 tablet (150 mg total) by mouth in the morning.07/21/2023ctive lamoTRIgine (LaMICtal) 200 mg tablet Take 0.5 tablets (100 mg total) by mouth in the morning.07/21/2023ctive loperamide (IMODIUM A-D) 2 mg tablet Take 1 tablet (2 mg total) by mouth as needed in the morning and 1 tablet (2 mg total) as needed atnoon and 1 tablet (2 mg total) as needed in the evening. 05/29/2023ctive loratadine (CLARITIN) 10 mg tablet Take 1 tablet (10 mg total) by mouth in the morning.05/29/2023ctive metoprolol tartrate (LOPRESSOR) 100 mg tablet Take 1 tablet (100 mg total) by mouth in the morning and 1 tablet (100 mg total) before bedtime.07/21/2023ctive montelukast (SINGULAIR) 10 mg tablet Take 1 tablet (10 mg total) by mouth nightly.07/21/2023ctive OLANZapine (ZyPREXA) 20 mg tablet Take 1 tablet (20 mg total) by mouth nightly. Total 30mg07/21/2023ctive paliperidone (INVEGA) 6 mg 24 hr tablet Take 1 tablet (6 mg total) by mouth every morning.07/21/2023ctive docusate sodium (COLACE) 100 mg capsule Take 1 capsule (100 mg total) by mouth in the morning and 1 capsule (100 mg total) before bedtime.05/29/2023ctive ibuprofen (ADVIL,MOTRIN) 200 mg tablet Take 1 tablet (200 mg total) by mouth every 6 (six) hours as needed.05/29/2023 Active levonorgestreL-ethinyl estrad (AVIANE,ALESSE,LESSINA) 0.1-20 mg-mcg per tablet Take 1 tablet by mouth in the morning.Active omeprazole (PriLOSEC) 20 mg capsule Take 1 capsule (20 mg total) by mouth every morning before breakfast.05/10/2023 Active carBAMazepine XR (TEGretol XR) 400 mg 12 hr tablet Take 200 mg by mouth in the morning and 200 mg at noon and 200 mg before bedtime.05/29/2023ctive cloNIDine (CATAPRES) 0.2 mg tablet Take 1 tablet (0.2 mg total) by mouth in the morning and 1 tablet (0.2 mg total) at noon and 1 tablet (0.2 mg total) before bedtime.05/30/2024Active dicyclomine (BENTYL) 20 mg tablet Take 1 tablet (20 mg total) by mouth every 6 (six) hours.4Active FIBER-LAX 625 mg tablet Take 1 tablet (625 mg total) by mouth in the morning.4Active fenofibrate micronized (LOFIBRA) 134 mg capsule Take 1 capsule (134 mg total) by mouth every morning before breakfast.07/21/2023 Active clindamycin (CLEOCIN) 300 mg capsule 5Active polyethylene glycol (GLYCOLAX) 17 gram/dose powder Take 17 g by mouth.4Active albuterol (PROVENTIL,VENTOLIN) 2.5 mg /3 mL (0.083 %) nebulizer solution INHALE 1 VIAL VIA NEBULIZER EVERY 6 HOURS NEEDED FOR 2 WEEKS5Active guaiFENesin (MUCINEX) 600 mg tablet extended release 12hr TAKE ONE TABLET BY MOUTH TWICE A DAY NEEDED FOR NASAL CONGESTION AND COUGH ZXZVDHS75/11/2025Active Active Problems ProblemNoted DateDiagnosed DateMass of right kremsv1408/08/2024reast skin changes 08/08/20244287Hxmpsnhogzti59/05/2024 Encounters DateTypeDepartmentCare DfqnQdxrskfpoky76/30/2025 11:00 AM EDTOffice Visit [facility] [address] [place] [address] Abby Bauman PA Cellulitis of right breast (Primary Dx)11/20/2024Telephone [facility] [address] [place] [address] Luz Marina Nunez LPN 11/20/2024Travelfrom Last 3 Months Social History Tobacco UseTypesPacks/DayYears UsedDateSmoking Tobacco: NeverSmokeless Tobacco: Never Tobacco Cessation:Counseling Given: Not Answered Alcohol UseStandard Drinks/WeekCommentsNever0 (1 standard drink = 0.6 oz pure alcohol)CommentsNoSex and Gender InformationValueDate RecordedSex Assigned at BirthNot on fileLegal McrPbofhx83/07/2024 12:38 PM ESTGender IdentityNot on fileSexual OrientationNot on file Last Filed Vital Signs Vital SignReadingTime TakenCommentsBlood Jqroqiei907/9111/20/2024 10:58 AM EDT Ebmzl6013/30/2025 10:58 AM EDTTemperature--Respiratory Ldto208111/20/2024 10:58 AM EDTOxygen Mcdqffootr996%07/28/2023 2:07 PM EDTInhaled Oxygen Concentration-- Ihhmzk81.4 kg (164 lb)11/20/2024 10:58 AM PWATegemw083.8 cm (5' 4.49 )11/20/2024 10:58 AM EDTBody Mass Index27.7311/20/2024 10:58 AM EDT Plan of Treatment Health MaintenanceDue DateLast DoneCommentsDepression Jcwgmjjrj77/14/1999Adult BMI Follow Up Plan2004COVID-19 Vaccine ( season)2024 12/08/2023, 12/08/2022, 12/09/2021, Additional history existsInfluenza Vaccine /, 12/08/2022, 12/09/2021, Additional history existsAdult BMI Hvxjtasyw82Tobacco Vqdinrgan31Pap Smear /DTaP,Tdap and Td Vaccines (7 - Td or Tdap)11/11/2029 11/12/2019, 11/29/2001, 12/03/1991, Additional history exists Medical Devices Not on file Insurance * Guarantor: Migdalia ConnellyAccogian TypeRelation to PatientDate of BirthPhoneBilling AddressPersonal/AgbybeEzim58/[birth year]/[address] [address] Care Teams Team MemberRelationshipSpecialtyStart DateEnd Date Lio Muñoz DO [address] [place] [address] [facility]
--- OUTSIDE RECORDS SUMMARY | 2025-01-05 17:43 | XMS_ITS | Clinical Summary ---
Author Organization [facility] Address [address] [place] [address] Care Team Providers Care Guest Services Coordinator Name Role Phone Ramone Herrera DO Unavailable [phone] Lio Muñoz MD Primary Care Provider [phone] Allergies Active AllergyReactionsCriticalityNoted TppfZqvagxdpIvumnvxxvkxKykycma76/19/2013 ImpznsflvolrSnpcuyp66/19/6613KltjezcjdkgyazhfVlurxwx72/07/2024extromethorphan Hbr06/09/2012Food06/09/2012 Peterson Slaw XlxhfkrslrBbaexdm91/19/8979YsbmuyehzNsnehbp38/19/3966DpxyodhliiOiytzut10/19/2013 Wummyfhksaefvysf10/19/2013Valproic IkslMzygvxm73/24/2019 Per OSH H+P 08/2018 Medications MedicationSigDispense QuantityRefillsLast FilledStart DateEnd DateStatus acetaminophen (Tylenol) 325 MG tablet TAKE TWO TABLETS BY MOUTH TWICE A DAY NEEDED FOR TEMP OR GENERAL DISCOMFORT Active atomoxetine (Strattera) 40 MG capsule 04/27/2023ctive atomoxetine (Strattera) 60 MG capsule 1 (one) time each day at the same timeActive Calcium+D3 600-20 MG-MCG tablet Take 1 tablet by mouth in the morning and 1 tablet before bedtime.04/26/2023 Active Calcium Polycarbophil (fiber) 625 MG tablet every 8 (eight) hoursActive cloNIDine (Catapres) 0.2 MG tablet 1 (one) time each day at the same timeActive dicyclomine (Bentyl) 20 MG tablet every 12 (twelve) hoursActive Docusate Sodium (DSS) 100 MG capsule 1 (one) time each day at the same timeActive fenofibrate micronized (Lofibra) 134 MG capsule 1 (one) time each day at the same timeActive fluticasone (Flonase) 50 MCG/ACT nasal spray INHALE 2 SPRAYS INTO EACH NOSTRIL ONCE DAILY NEEDEDActive guanFACINE (Tenex) 2 MG tablet 1 (one) time each day at the same timeActive lamoTRIgine (LaMICtal) 150 MG tablet Take 300 mg by mouth at onszgqx3504/27/2023ctive lamoTRIgine (LaMICtal) 200 MG tablet Take 1 tablet by mouth Daily04/27/2023ctive lamoTRIgine (LaMICtal) 100 MG tablet 1 (one) time each day at the same timeActive Aviane 0.1-20 MG-MCG tablet Take 1 tablet by mouth DailyActive loratadine (Claritin) 10 MG tablet 1 (one) time each day at the same timeActive metoprolol tartrate (Lopressor) 100 MG tablet every 12 (twelve) hoursActive montelukast (Singulair) 10 MG tablet 1 (one) time each day at the same timeActive OLANZapine (ZyPREXA) 10 MG tablet 04/27/2023ctive OLANZapine (ZyPREXA) 20 MG tablet 1 (one) time each day at the same timeActive omeprazole (PriLOSEC) [address] capsule 1 (one) time each day at the same timeActive paliperidone (Invega) 6 MG 24 hr tablet 1 tablet in the morning and 1 tablet before bedtime.04/27/2023ctive sennosides (Senokot) 8.6 MG tablet Twice daily05/29/2023ctive tacrolimus (Protopic) 0.1 % ointment Indications:Lip licking dermatitisApply to affected areas bid prn when flared 60 g ctive Additional Information Patient not taking.Reported on 02/29/2024 ibuprofen (Motrin) 50 mg split tablet Take 400 mg by mouthActive carBAMazepine XR (TEGretol XR) 200 MG 12 hr tablet Take 200 mg by mouth in the morning and 200 mg before bedtime. Do not crush, chew, or split..Active Active Problems ProblemNoted DateDiagnosed DateAnger blztiwct04/23/2024 Overview (07/14/2023): Seemingly stable per report from the patient's caregiver today. PLAN: - Follow closely with psychiatry and primary care provider for management Hcktbntjma25/23/2024 Overview (07/14/2023): The patient has a history of behavioral reactions and outbursts that can be convulsive in nature. Per documentation, these have resembled seizures but seem to be nonepileptic. However, the patient does have developmental delay which increases seizure risk. She has been stable on lamotrigine and carbamazepine without concerns for any breakthrough seizures recently. However, sodium level on 03/22/23was low (123), and it is possible that carbamazepine was contributory. The patient's carbamazepine dose was subsequently decreased, and sodium level recheck on 03/13/23 was only mildly low (134). PLAN: - Continue lamotrigine PO 200 mg in morning and 400 mg in the evening (primarily for mood/psych) - Continue carbamazepine XR PO 200 mg in the morning, 200 mg in the afternoon, and 400mg in the evening for now - Recheck sodium level now and 1 month. Further recommendations to follow dependent upon lab results. If sodium levels remain low, would consider further dose reduction of carbamazepine -Medication compliance discussed - No driving (the patient does not) - I advised the caregiver to notify the office or have the patient evaluated should the patient experience seizure-like activity oracute alteration of mental status in the future Alteration of phvnszsqfyogt10/23/2024 Overview (07/14/2023): The patient and caregiver deny any episodes of altered consciousness or awareness since the prior appointment at [facility]. Development delay07/14/2023 Overview (07/14/2023): Risk factor for seizures. Bipolar pqoqhqir76/13/2024Essential dqflujpvtlzy27/13/2024Seizure disorder 05/04/2023ure dyxwvofidvumxldtcbbq41/13/2024ttention deficit disorder with azysftozimohv64/04/2013 Overview (05/04/2023): Attention deficit disorder with hyperactivity Encounters DateTypeDepartmentCare XxmvSiavzvmwohl08/25/2025Abstract [facility] [address] [facility] [place] [phone] Bhanu Charlton, DPM FACFAS 11/14/2024 9:00 AM EDTProcedure Visit [facility] [address] [facility] [place] [phone] Bhanu Charlton, DPM FACFAS Onychomycosis (Primary Dx); Pain in left toe(s); Pain in right toe(s)11/14/2024amboo flowsheet [facility] [address] [place] [phone] Bhanu Charlton, DPM FACFAS from Last 3 Months Family History RelationNameStatusCommentsMotherAlive Social History Tobacco UseTypesPacks/DayYears UsedDateSmoking Tobacco: NeverSmokeless Tobacco: Never Tobacco Cessation:Counseling Given: Yes Alcohol UseStandard Drinks/WeekCommentsNever0 (1 standard drink = 0.6 oz pure alcohol)CommentsUnknownSex and Gender InformationValueDate RecordedSex Assigned at BirthNot on fileLegal BwwIsdrfu34/15/2023 10:14 PM EDTGender IdentityNot on fileSexual OrientationNot on file Last Filed Vital Signs Vital SignReadingTime TakenCommentsBlood Fxsrdbbp392/6609 9:29 AM EDT Taumk3086 9:29 AM EDTTemperature--Respiratory Lbft6049 10:33 AM EDTOxygen Mnufwnkapd48%06/04/2024 10:33 AM EDTInhaled Oxygen Concentration-- Wtqqfx36.4 kg (197 lb)11/14/2024 9:29 AM JGVRnsdcy080.6 cm (5' 4 )11/14/2024 9:29 AM EDTBody Mass Index33.8109 9:29 AM EDT Plan of Treatment DateTypeDepartmentCare Team (Latest Contact Info)Pkgwoxayaxp69/10/2025 9:10 AM ESTProcedure Visit [facility] [address] [place] [address] Bhanu Cahrlton, DPM FACFAS [address] [place] [address] Insurance Care Teams Team MemberRelationshipSpecialtyStart DateEnd Date Lio Muñoz MD [address] [place] [id number] PCP - GeneralFamily Medicine11/09/23 Ramone Herrera DO [address] [place] [address] Referring PhysicianNeurology05/19/23
--- OUTSIDE RECORDS SUMMARY | 2025-01-05 17:45 | XMS_ITS | Patient Health Record ---
Author Organization [facility] Address [address] [place] [address] Care Team Providers Care Holter Scanning Technician Name Role Phone Lexus Thapa Primary Care Provider [phone] Dr. Rickie Hebert Unavailable [phone] Irish Ramsey Unavailable [phone] Reason For Referral No Information Encounters Encounter Location Date Provider Diagnosis [facility] [address] [place] [address] 04/16/2024 Lexus Thapa [facility] [place] [address]/24/2025 Irish Shah dental procedure status Z98.818 and Encounter for dental examination and cleaning with abnormal findings Z01.21[facility] [address] [place] [address]/remberto ThapaDental caries on pit and fissure surface penetrating into dentin K02.52 Assessments Encounter Date Diagnosis (ICD Code) Assessment Notes Treatment Notes Treatment Clinical Notes Section Notes 04/16/2024 Other dental procedure status (I CD-10 - Z98.818) 06/19/2024Dental caries on pit and fissure surface penetrating into dentin (ICD- 10 - K02.52)04/16/2024Encounter for dental examination and cleaning with abnormal findings (ICD-10 - Z01.21) Plan Of Treatment Next Appt Details Provider Name:Rickie Garg, 0 05/01/2025 09:30:00 AM, [address] [place], [address], Insurance Providers Payer Name Payer Address Payer Phone Subscriber Number Group Number Insured Name Patient Relationship to Insured Coverage Start Date Coverage End Date [employer] [place] [address] [place] [id number] [phone] [id number] Micaela CARD - patient is the [id number] 2022
--- OUTSIDE RECORDS SUMMARY | 2025-01-05 17:46 | XMS_ITS | Clinical Summary ---
Author Organization [facility] Address [address] [facility] [place] [address] Care Team Providers Care Weatherseal Technician Name Role Phone Unavailable Primary Care Provider Unavailabl e Source Comments The following information is NOT included in Care Everywhere downloads:Psychiatric notes, ECG results, Cardiac Rehab notes, Pulmonary Function notes, data from SmartForms (includes but not limited toPregnancy data,audiograms, eye exams, pre-surgical evaluation notes, well-child exam data).[facility] Allergies Active AllergyReactionsCriticalityNoted DzffOdaagxrwHvxdetd69/19/2013moxicillin 06/09/2012Valproic Acid09/13/2018 Per OSH H+P 08/2018 Food06/09/2012 Peterson Slaw Pjrrpcfieq08/19/3065Nkrunetda53/19/8961Xouzasekvj34/19/2013Sympathomimetics 06/09/2012Dextromethorphan Hbr06/09/2012 Medications MedicationSigDispense QuantityRefillsLast FilledStart DateEnd DateStatus montelukast (SINGULAIR) 10 MG tablet Take 10 mg by mouth daily.Active lamoTRIgine (LAMICTAL) 100 MG tablet Take 100 mg by mouth at bedtime.Active omeprazole (PRILOSEC) 20 MG capsule Take 20 mg by mouth daily.Active olanzapine (ZYPREXA) 20 MG tablet Take 20 mg by mouth at bedtime.Active dicyclomine (BENTYL) 20 MG tablet Take 20 mg by mouth 2 times a day.Active docusate sodium (COLACE) 100 MG capsule Take 200 mg by mouth 2 times daily.Active loratadine (CLARITIN) 10 MG tablet Take 10 mg by mouth daily.Active fenofibrate micronized (LOFIBRA) 134 MG capsule Take 134 mg by mouth at bedtime.Active guanFACINE HCl 2 MG TABS Take 2 mg by mouth 3 times daily.Active cloNIDine (CATAPRES) 0.2 MG tablet Take 0.2 mg by mouth 3 times daily.1Active atomoxetine (STRATTERA) 40 MG capsule Take 40 mg by mouth every evening.Active atomoxetine (STRATTERA) 60 MG capsule Take 60 mg by mouth every morning.Active Aviane 0.1-20 MG-MCG per tablet Take 1 Tablet by mouth daily.Active Calcium+D3 600-20 MG-MCG TABS Take 1 Tablet by mouth 2 times daily.Active lamotrigine (LaMICtal) 150 MG tablet Take 300 mg by mouth at bedtime.Active lamotrigine (LaMICtal) 200 MG tablet Take 200 mg by mouth every morning.Active paliperidone (INVEGA) 6 MG 24 hour tablet Take 6 mg by mouth 2 times a day.Active Polyethylene Glycol 3350 (PEG 3350) 17 GM/SCOOP POWD Take 17 g by mouth every morning.4Active acetaminophen (TYLENOL) 325 mg tablet Take 650 mg by mouth 2 times daily as needed for Pain or Fever.Active Calcium Carbonate Antacid (Tums Smoothies) 750 MG CHEW Take 2 Tablets by mouth every 4 hours as needed.4Active FLUTICASONE PROPIONATE, NASAL, NASAL Use 2 Sprays in each nostril daily as needed for Other.Active IBUPROFEN ORAL Take 400 mg by mouth every 4 hours as needed for Pain.Active Loperamide HCl 2 MG tab Take 4 mg by mouth as needed for Other.Active ondansetron (Zofran) 4 MG tablet Take 4 mg by mouth every 6 hours as needed for Nausea.Active metoprolol (LOPRESSOR) 25 MG tablet Take 25 mg by mouth 3 times daily.Active carBAMazepine ER (CARBATROL) 100 MG CR capsule Take 100 mg by mouth daily. At 4 pmActive carBAMazepine (TEGRETOL XR) 200 MG SR tablet Take 1 Tablet by mouth 2 times daily.5Active polycarbophil (Fiber-Lax) 625 MG tablet Take 2 Tablets by mouth every morning.Active metoprolol (LOPRESSOR) 100 MG tablet Take 100 mg by mouth 3 times a day.Active Cholecalciferol (Vitamin D3) 125 MCG (5000 UT) CAPS Take 125 mcg by mouth daily.Active acetaminophen (TYLENOL) 500 MG tablet Take 1 Tablet by mouth every 6 hours as needed for Pain or Fever. 30 Tablet 10/08/2024 10:08 AM EDT5Active ibuprofen (MOTRIN) 400 MG tablet Take 1 Tablet by mouth every 6 hours as needed for Pain. 90 Tablet 10:08 AM EDT5Active Active Problems ProblemNoted DateDiagnosed DateDissociative /11/2024Impulse control /11/2024Gastroesophageal reflux mylthyf4402/01/20243857Oqeiccjg70/11/2024 Posttraumatic stress jfapboad20/08/2024ipolar /03/2024Caries 09/05/2018 Overview (09/05/2018): Added automatically from request for surgery [id number] Dental decay08/26/2016 Overview (08/26/2016): Added automatically from request for surgery [id number] Unspecified dental blyzdw6206/09/2012Chronic periodontitis, jodsnaddsit17/19/2013 Unconfirmed /19/2013Moderate intellectual egkcelzxgrle94/04/2013 Attention deficit hyperactivity disorder (ADHD)05/25/2012 Overview (06/03/2018): Attention deficit disorder with hyperactivity Encounters DateTypeDepartmentCare CziiPsyqsiedgpe31/18/2025 7:44 AM EDTAnesthesia Event [facility] [address] [place] [address] Kedar Moralez MD Fisher, Andrew, MD 10/08/2024 7:30 AM EDT - 10/08/2024 8:57 AM EDTSurgery [facility] [address] [place] [address] Og Mahoney DDS DENTAL QILMDNECMFSQ90/18/2025 6:30 AM EDTProcedure Visit [facility] Dentistry [address] [place] [address] Og Mahoney DDS 10/08/2024 6:30 AM EDT - 10/08/2024 10:19 AM EDTHospital Encounter [facility] [id number] [place], [place] [id number] Og Mahoney, DDS Discharge Disposition: Discharge to Home10/08/2024bstract [facility] Dentistry [address] [place] [address] Risa Black, OSCARS 10/05/2024Telephone [facility] Pre-Admission Testing [address] [place] [address] Alvin Garcia, VISHNU Dental Pain (DD adult dental restorations 10/08/24 under [place] at [facility]. PAT completed 09/21/24. Consentsobtained from Guardian Jessica Houston. KIM RN spoke to Yazmin MARES at [facility] on 10/05/24. Confirmed NPO after 2200. [facility] address [address] [place] [address] - [facility]. 0630 [facility]. [facility] DOS./)from Last 3 Months Immunizations ImmunizationAdministration DatesNext DueDTP (CVX=01)09/06/1988,1986, 1986,1986Hep B (peds/adol, 3-dose) (CVX=08)05/04/2001,11/10/2000, 10/10/2000Hib, unspecified formulation (CVX=17)01/23/1988Influenza, injectable, quadrivalent, preservative (EQW=782)12/15/2016Influenza, injectable, quadrivalent, preservative free (KDY=201)12/17/2020,11/28/2019,11/30/2017, 12/12/2014Influenza, injectable, trivalent, preservative (NXH=298)11/10/2010MMR, Omivaic-Vpndl-Kmuwovu (CVX=03)05/30/1998,04/30/1987Meningococcal conjugate (MCV4,Men-ACWY), Menactra (MCV4P) (JBO=594)07/07/2006Pfizer Monovalent (12+ yrs) SARS-COV-2 (COVID-19) vaccine, mRNA, spike protein, LNP, pres. free, 30mcg/0.3mL dose (VGG=626)03/25/2020,1Polio, oral (OPV) (CVX=02)12/03/1991, 09/06/1988,1986,1986Td (adult), unspecified formulation (HAZ=798) 11/29/2001,12/03/1991Tdap (PRO=549)11/12/2019 Social History Tobacco UseTypesPacks/DayYears UsedDateSmoking Tobacco: NeverSmokeless Tobacco: NeverAlcohol UseStandard Drinks/WeekCommentsNever0 (1 standard drink = 0.6 oz pure alcohol)Substance UseTypesUse/WeekCommentsNeverCommentsNoSex and Gender InformationValueDate RecordedSex Assigned at BirthNot on fileLegal Sex Hopcdz8301/12/2012 4:11 PM ESTGender IdentityNot on fileSexual OrientationNot on file Last Filed Vital Signs Vital SignReadingTime TakenCommentsBlood Nafpswnd869/8908 10:00 AM EDTok for DC per Dr. Moralez, pt will take home BP expwAixqm63462/18/2025 10:00 AM EDT Rsdyxijmeyc76.6 ??C (97.9 ??F)10/08/2024 10:00 AM EDTRespiratory Rate17 10/08/2024 10:00 AM EDTOxygen Zawesilscu74%10/08/2024 10:00 AM EDTInhaled Oxygen Concentration--Wferft87.6 kg (182 lb)10/08/2024 7:13 AM KIGDotsla321.1 cm (5' 5 )10/08/2024 7:13 AM EDTBody Mass Index30.29010/08/2024 7:13 AM EDT Plan of Treatment Health MaintenanceDue DateLast DoneCommentsAnnual Wellness Visit (G0438) 02/21/1999HIV Test2001Hepatitis C Vntspxym35/14/2005Hepatitis A (HAV) Vaccine (optional start 19+ years)2005Pap Smear07/05/2007HPV Vaccine (optional start 27-45 years)2013COVID-19 Vaccine ( season) , 12/17/2020, 03/25/2020, Additional history existsInfluenza Vaccine (#1)/, 11/28/2019, 11/30/2017, Additional history existsDental Oral Exam/, 12/15/2023, 3Dental Pzuxztwhzjo11Dental X-Ray: Lzpfykssi88/, 12/15/2023Tetanus (Td or Tdap) Sexgsae63, 11/29/2001, 12/03/1991Shingles (RZV) Vaccine (1 of 2)2036Hepatitis B (HBV) Vaccine Lcxnkgdtv28/14/2002, 11/10/2000, 10/10/2000Tdap OakbgszIdnrvhtpv34/21/2020 Mammography (shared decision-making, age 35-39)Raznukkma25/19/2025Mammography Dvpxioskotri34/19/2025, 08/09/2024Pneumococcal Vaccine(s)Aged OutNo longer eligible based on patient's age to complete this topic Procedures Procedure NamePriorityDate/TimeAssociated DiagnosisCommentsEXTRACTION, TOOTH Routine ndlvpjyqb39/18/2025 7:32 AM EDT Caries DENTAL RESTORATIONSRoutine fjwljgcae54/18/2025 7:32 AM EDT Caries COMPREHENSIVE FJHNCceowjq77/18/2025 12:00 AM EDTPROPHY ADULT 14 & OLDERRoutine 10/08/2024 12:00 AM EDTTOPICAL JONATHAN OF PONDWONUHoteweq10/18/2025 12:00 AM EDT27 DL RESIN- 2 SURFACES- ZWJAPPJSIlxsigz03/18/2025 12:00 AM EDT24 DIFL RESIN- 4 OR MORE SURFACES- EMTXCKYNZoocjtz16/18/2025 12:00 AM EDT11 DIFL RESIN- 4 OR MORE SURFACES- ARRZLXIBSpnjulc35/18/2025 12:00 AM EDT30 SURG EXTRACTION ERUPTED TOOTH Erbjkxi5610/08/2024 12:00 AM EDT12 SURG EXTRACTION ERUPTED VJOQSImnumva24/18/2025 12:00 AM EDT28 SURG EXTRACTION ERUPTED ARYVCUhoswpd53/18/2025 12:00 AM EDT25 SURG EXTRACTION ERUPTED NPKCBTpukvtp86/18/2025 12:00 AM EDT26 SURG EXTRACTION ERUPTED RTPQFXewafdx44/18/2025 12:00 AM EDTURINE HCG-IN IWLDLCTulzmne57/18/2025 from Last 3 Months Results * URINE HCG-IN OFFICE (10/08/2024)ComponentValueRef RangeTest MethodAnalysis TimePerformed AtPathologist SignatureUrine Beta hCGNegativeNegativePositive Internal ControlPositivePositiveNegative Internal ControlNegativeNegative Specimen (Source)Anatomical Location / LateralityCollection Method / Volume Collection TimeReceived TimeUrineURINE SPECIMEN / Kpoylzd5610/08/2024 Narrative Authorizing ProviderResult TypeResult StatusMireille Sofia DDSEC BACK OFFICE LABSFinal Result from Last 3 Months Insurance [address] [place] [address] * Guarantor: Migdalia Connelly TypeRelation to PatientDate of BirthPhone Billing AddressDental SikjtvXope90/14/[address] [address]
[2025-01-05 18:18] LABS: Glucose Urine UA NEGATIVE (NEGATIVE)
== END 2025-01-05 17:35 | disposition home or self-care (01) ==
LOC: LAB 17:34
PROVIDERS: PCP Family Medicine; Visit Provider Family Medicine
DX: R35.0 Frequency of micturition (principal)
CPT/HCPCS: 81003

== ENCOUNTER 2025-01-07 06:32 | Outpatient (OUT) | payer MEDICARE, MEDICAID, SELFPAY ==
--- OUTSIDE RECORDS SUMMARY | 2023-09-02 05:50 | XMS_ITS ---
Author Organization [facility] Address [address] [place] [address] Care Team Providers Care Stave Bolt Equalizer Name Role Phone Lexus Thapa Primary Care Provider REASON FOR VISIT NEW PATIENT DENTAL EXAM Encounters Encounter Location Date Provider Diagnosis [facility] [address] [place] [address] 09/02/2023 Lexus Thapa Plan Of Treatment Next Appt Details Provider Name:Rickie Garg, 0 05/01/2025 09:30:00 AM, [address] [place], [address], Progress Notes * PJ CARDDOB:1985 ([age] yo F)Acc No.[id number]:09/02/2023 Patient:?KAE CARDAH :?Lexus Thapa DDSDOB:1985???Age:38 Y ???Sex:FemaleDate:09/02/2023hone:[phone]:[address] [place] [address], [place] Subjective: * Chief Complaints: * N EW PATIENT DENTAL EXAM * Electronic signature of Lexus Thapa DDS on 01/07/2025 at 06:36 AM ESTSign off status: Pending * Provider: Kody Thapa DDS Date: 0 09/02/2023 Generated for Printing/Faxing/eTransmitting on:?01/07/2025 06:36 AM EST
--- OUTSIDE RECORDS SUMMARY | 2023-09-23 05:25 | XMS_ITS ---
Author Organization [facility] Address [address] [facility] [place] [address] Care Team Providers Care Machine Clothing Man Name Role Phone Lexus Thapa Primary Care Provider [phone] Dr. Rickie Hebert Unavailable [phone] REASON FOR VISIT NEW PT EXAM Encounters Encounter Location Date Provider Diagnosis [facility] [address] [place] [address] 09/23/2023 Rickie Garg Plan Of Treatment Next Appt Details Provider Name:Rickie Garg, 0 05/01/2025 09:30:00 AM, [address] [place], [address], Progress Notes * PJ CARDDOB:1985 ([age] yo F)Acc No.[id number]:09/23/2023 Patient:?PJ CARD :?ROBERT CheneyOB:1985???Age:38 Y???Sex: FemaleDate:09/23/2023hone:[phone]:[address] [place] [address]Cfe:Lexus Thapa Subjective: * Chief Complaints: * N EW PT EXAM * Electronic signature of Dr. Rickie Garg , [facility], [id number] on 01/07/2025 at 06:36 AM ESTSign off status: Pending * Provider: Tru Garg DDS Date: 0 09/23/2023 Generated for Printing/Faxing/eTransmitting on:?01/07/2025 06:36 AM EST
--- OUTSIDE RECORDS SUMMARY | 2023-11-01 08:30 | XMS_ITS ---
Author Organization [facility] Address [address] [place] [address] Care Team Providers Care Business Support Coordinator Name Role Phone Lexus Thapa Primary Care Provider REASON FOR VISIT NEW PT EXAM Encounters Encounter Location Date Provider Diagnosis [facility] [address] [place] [address] 11/01/2023 Lexus Thapa Plan Of Treatment Next Appt Details Provider Name:Rickie Garg, 0 05/01/2025 09:30:00 AM, [address] [place], [address], Progress Notes * PJ CARDDOB:1985 ([age] yo F)Acc No.[id number]:11/01/2023 Patient:?PJ CARD :?Lexus Thapa DDSDOB:1985???Age:38 Y ???Sex:FemaleDate:11/01/2023hone:[phone]:[address] [place] [address], [place], [place] Subjective: * Chief Complaints: * N EW PT EXAM * Electronic signature of Lexus Thapa DDS on 01/07/2025 at 06:36 AM ESTSign off status: Pending * Provider: Kody Thapa DDS Date: 0 11/01/2023 Generated for Printing/Faxing/eTransmitting on:?01/07/2025 06:36 AM EST
--- OUTSIDE RECORDS SUMMARY | 2024-05-04 04:20 | XMS_ITS ---
Author Organization [facility] Address [address] [facility] [place] [address] Care Team Providers Care Cracker Off Name Role Phone Lexus Thapa Primary Care Provider [phone] Dr. Rickie Hebert Unavailable [phone] REASON FOR VISIT tooth loose bottom right [place] Encounters Encounter Location Date Provider Diagnosis [facility] [address] [facility] [place] [address] 05/04/2024 Rickie Garg Plan Of Treatment Next Appt Details Provider Name:Rickie Garg, 0 05/01/2025 09:30:00 AM, [address] [place], [address], Progress Notes * PJ CARDDOB:1985 ([age] yo F)Acc No.[id number]:05/04/2024 Patient:?PJ CARD :?Rickie Garg DDSDOB:1985???Age:38 Y???Sex: FemaleDate:05/04/2024Phone:[phone]:[address] [place] [address]Itw:Lexus Thapa Subjective: * Chief Complaints: * T ooth loose bottom right -[place] * Electronic signature of Dr. Rickie Garg , DMD, [id number] on 01/07/2025 at 06:36 AM ESTSign off status: Pending * Provider: Tru Garg DDS Date: 0 05/04/2024 Generated for Printing/Faxing/eTransmitting on:?01/07/2025 06:36 AM EST
--- OUTSIDE RECORDS SUMMARY | 2024-11-01 04:30 | XMS_ITS ---
Author Organization [facility] Servic es Address [address] [place] [address] Care Team Providers Care Capacitor Assembler Name Role Phone Lexus Thapa Primary Care Provider [phone] Dr. Rickie Hebert Unavailable [phone] REASON FOR VISIT 6 month f/u Encounters Encounter Location Date Provider Diagnosis [facility] [place] [address] [place] [address] 2024 Rickie Garg Plan Of Treatment Next Appt Details Provider Name:Rickie Garg, 0 05/01/2025 09:30:00 AM, [address], [address], Progress Notes * PJ CARDDOB:1985 ([age] yo F)Acc No.[id number]:11/01/2024 Patient:?PJ CARD :?ROBERT CheneyOB:1985???Age:39 Y???Sex: FemaleDate:11/01/2024Phone:[phone]:[address] [place] [address]Nva:Lexus Thapa Subjective: * Chief Complaints: * 6 month f/u * Electronic signature of Dr. Rickie Garg , [facility], [id number] on 01/07/2025 at 06:36 AM ESTSign off status: Pending * Provider: Tru Garg DDS Date: 0 11/01/2024 Generated for Printing/Faxing/eTransmitting on:?01/07/2025 06:36 AM EST
--- OUTSIDE RECORDS SUMMARY | 2024-11-13 03:45 | XMS_ITS ---
Author Organization [facility] Address [address] [place] [address] Care Team Providers Care Heater Worker Name Role Phone Lexus Thapa Primary Care Provider [phone] REASON FOR VISIT CROWN PREP Encounters Encounter Location Date Provider Diagnosis [facility] [address] [place] [address] 11/13/2024 Lexus Thapa Plan Of Treatment Next Appt Details Provider Name:Rickie Garg, 0 05/01/2025 09:30:00 AM, [address] [place], [address], Progress Notes * STEPHIEPJDOB:1985 ([age] yo F)Acc No.[id number]:11/13/2024 Patient:?PJ CARD :?Lexus Thapa DDSDOB:1985???Age:39 Y ???Sex:FemaleDate:11/13/2024Phone:[phone]:[address] [place] [address], [employer] [place] Subjective: * Chief Complaints: * C ROWN PREP * Electronic signature of Lexus Thapa DDS on 01/07/2025 at 06:36 AM ESTSign off status: Pending * Provider: Kody Thapa DDS Date: 0 11/13/2024 Generated for Printing/Faxing/eTransmitting on:?01/07/2025 06:36 AM EST
--- OUTSIDE RECORDS SUMMARY | 2024-12-11 04:30 | XMS_ITS ---
Author Organization [facility] Address [address] [place] [address] Care Team Providers Care Duplicate Maker Name Role Phone Lexus Thapa Primary Care Provider [phone] REASON FOR VISIT CROWN SEAT Encounters Encounter Location Date Provider Diagnosis [facility] [address] [place] [address] 12/11/2024 Lexus Thapa Plan Of Treatment Next Appt Details Provider Name:Rickie Garg, 0 05/01/2025 09:30:00 AM, [address] [place], [address], Progress Notes * STEPHIEPJDOB:1985 ([age] yo F)Acc No.[id number]:12/11/2024 Patient:?PJ CARD :?Lexus Thapa DDSDOB:1985???Age:39 Y ???Sex:FemaleDate:12/11/2024Phone:[phone]:[address] [place] [address], [place] Subjective: * Chief Complaints: * C ROWN SEAT * Electronic signature of Lexus Thapa DDS on 01/07/2025 at 06:35 AM ESTSign off status: Pending * Provider: Kody Thapa DDS Date: Generated for Printing/Faxing/eTransmitting on:?01/07/2025 06:35 AM EST
--- OUTSIDE RECORDS SUMMARY | 2025-01-07 06:35 | XMS_ITS | CCD ---
Author Organization [facility] Care Team Providers Care Rn Birthing Name Role Phone SYSTEM, PROVIDER NOT IN [...] Provider Unavailabl e IMAN Amanda Emergency Provider [phone] DO Jass Yaneyda Admit Provider DO Arvind Regan Attending Provider [phone] IMAN Amanda Emergency Provider [phone] DO Jass Yazid Admit Provider DO Rico Romero Attending Provider [phone] DO Lio Muñoz Primary Care Provider DO Titi Terry Emergency Provider ЕленаiaRamone Mcguire DO Unavailable [phone] Lio Muñoz MD Primary Care Provider Unavailable Primary Care Provider Unavailabl e Unavailable Primary Care Provider Unavailabl e Sharon DO, Christopher Unavailable [phone] MuñozLio aggarwal DO Primary Care Provider TEOFILO, LINN L Attending Unavailable TEOFILO, LINN L Referring Unavailable MUÑOZ, LIO A Primary Care Unavailable TEOFILO, LINN L Attending Unavailable TEOFILO, LINN L Referring Unavailable MUÑOZ, LIO A Primary Care Unavailable Muñoz DO, Lio A Attending Provider [phone] MuñozArmani aggarwalel A Admitting Unavailable Muñoz, Lio [...] MUÑOZ, LIO A Primary Care Unavailable Rashid PULP PRESS TENDER-KETTLE TENDER-CMigdalia Attending Provider NON STAFF Primary Care Provider Unavailvarsha e Allergies Allergy ClassificationReported Allergen(s)Allergy TypeDate of OnsetReaction(s) FacilityAdrenergic Agonists (1 source)PseudoephedrineDrug Wzqxzzh55-81-2140Oeqvffx ReactionMetrohealth [facility] Medical CenterARIPiprazole (1 source)ARIPiprazoleDrug Hxkzkas81-92-2286Khdfyls ReactionMetrohealth [facility] Medical CenterChlorpheniramine (1 source)ChlorpheniramineDrug Sowbayd41-23-5473Sqrkoka ReactionFirMercy Health Fairfield HospitalDextromethorphan (1 source)DextromethorphanDrug Qrgzzlj43-71-2222Xsfvpyp ReactionMetrohealth [facility] Medical CenterguaiFENesin (1 source)guaiFENesinDrug Qyayuyx51-85-6578Ewtjezd ReactionMetrohealth [facility] Medical CentermetyroSINE (1 source)metyroSINEDrug Xuhbook99-06-6777Kxubmzq ReactionMetrohealth [facility] Medical CenterMolindone (1 source)MolindoneDrug Dywbwrc05-24-1668Votyast ReactionMetrohealth [facility] Medical CenterPenicillins (antibiotic) (1 source)AmoxicillinDrug Riauwvl38-06-1535Mmdnybr ReactionMetrohealth [facility] Medical CenterPhenylpropanolamine (1 source)PhenylpropanolamineDrug Kvyllhj88-09-9156Svzzeoo ReactionMetrohealth [facility] Medical CenterValproate (1 source)ValproateDrug Yjaflop58-02-6718Svvqznu ReactionMet[facility]health [facility] Center (20 sources)Amoxicillin; Translations: [AMOXICILLIN]Drug Rilstna50-05-0148 [facility] (20 sources)ARIPiprazole; Translations: [Abilify]Drug Ykjcsek16-91-5180 [facility] Work Phone: (20 sources)Dextromethorphan; Translations: [DEXTROMETHORPHAN HBR]Drug Allergy 72-38-9213RksqbCqfgjp (20 sources)metyroSINE; Translations: [METYROSINE]Drug Szhbbkk50-99-5058Irxmxkf [facility] (20 sources)Molindone; Translations: [MOLINDONE]Drug Xathhfp06-46-3169Qivxaae [facility] (20 sources)Nalbuphine; Translations: [NALBUPHINE]Drug Jdvjggh68-93-5246Szfkbys [facility] (20 sources)Valproate; Translations: [VALPROIC ACID]Drug Sndjltk13-74-1885 [facility] (20 sources)Food; Translations: [FOOD]Propensity to adverse reactions to drug 55-27-0864SuotuDkarwf (20 sources)Sympathomimetics; Translations: [SYMPATHOMIMETICS]Propensity to adverse reactions to nhqe38-43-9241Jxkztth ReactionMetroHealth (1 source)AmoxicillinDrug AllergyThe [facility] (1 source)metyroSINEDrug AllergyThe [facility] (1 source)MolindoneDrug AllergyThe [facility] (1 source)NalbuphineDrug AllergyThe [facility] (1 source)ValproateDrug AllergyThe [facility] (1 source)Vicks 44 Custom CareDrug allergy (disorder)[facility] (20 sources)ARIPiprazole; Translations: [ARIPIPRAZOLE]Drug Ndsdezu82-01-4141 [facility] (20 sources)ChlorpheniramineDrug Zfwsrhz21-45-7397HcbjiefQrciabywaSelect Medical [facility] [place] (4 sources)DextromethorphanDrug Ecfkpfe51-29-7668Rlutnqp [facility] (4 sources)guaiFENesinDrug Qzcpclr60-21-2767HzhnsegSheltering Arms Hospital (4 sources)PhenylpropanolamineDrug Swjrwzw93-69-0071Bmxpbdx [facility] (4 sources)PseudoephedrineDrug Himqdjy20-73-0924Yfsrwru [facility] (4 sources)ValproateDrug Cdplfbv43-87-8731Kljdida [facility] (9 sources)metyroSINEDrug Yzdacpf22-50-3913BwiRjuajr Health System (8 sources)Other; Translations: [OTHER]Propensity to adverse -39-8399 [facility] Medications Current Medications MedicationDrug Class(es)DatesSig (Normalized)Sig (Original)acetaminophen 500 mg oral tablet (20 sources)Start: 12-53-2045musj 1 tablet by mouth every six hours as needed for painacetaminophen (TYLENOL) 500 MG tablet Take 1 Tablet by mouth every 6 hours as needed for Pain or Fever. 30 Tablet 10/08/2024 10:08 AM EDT 10/08/2024 ActiveStart: 10-08-2024 End: 06-09-9256276 mg, Oral, PACU ONCE PRN, Starting on Tue10/08/24 at 0803, Until Tue10/08/24 at 1402, Mild Pain (pain score 1,2,3), PACU NowStart: 87-51-1445azax 2 capsules by mouth twice daily as needed for painAcetaminophen 325 mg capsule Active 650 MG PO Twice daily as needed for fever or pain August 06, 2023 12:00am Complies with drug therapyStart: 17-80-8364kokj 650 mg by mouth twice dailyAcetaminophen Active [...] 0.83 mg/ml inhalation solution (5 sources)beta2-Adrenergic AgonistStart: 48-67-9949zdvx 1 dose by inhalation every six hours as neededalbuterol (PROVENTIL,VENTOLIN) 2.5 mg /3 mL (0.083 %) nebulizer solution INHALE 1 VIAL VIA NEBULIZER EVERY 6 HOURS NEEDED FOR 2 WEEKS 05/23/2024 Activeatomoxetine 60 mg oral capsule (20 sources)Norepinephrine Reuptake InhibitorStart: 43-46-7501jjcs 1 capsule by mouth once daily in the morningStart: 50-01-4418jmiv 1 capsule by mouth once daily in the eveningbusPIRone hydrochloride 10 mg oral tablet (4 sources)take 1 tablet by mouth twice dailybusPIRone (BUSPAR) 10 MG tablet Take 10 mg by mouth 2 times daily. Activecalcium carbonate 750 mg chewable tablet (20 sources)Start: 18-42-0276ahrx 2 tablets by mouth every four hours as needed Calcium Carbonate Antacid (Tums Smoothies) 750 MG CHEW Take 2 Tablets by mouth every 4 hours as needed. 05/29/2023 ActiveStart: 12-44-5103pzpf 1 tablet by mouth every four hours as neededcalcium carbonate 1500 mg / cholecalciferol 200 unt oral capsule (20 sources)Vitamin DStart: 08-35-9631chnv 1 capsule by mouth twice dailyStart: 88-93-4760covt 1 tablet by mouth in the morningcalcium carbonate-vitamin D3 600 mg(1,500mg) -800 units tablet Take 1 tablet by mouth in the morning and 1 tablet before bedtime. 04/26/2023 ActiveStart: 71-00-3853ewrk 1 tablet by mouth in the morningCalcium+D3 600-20 MG-MCG tablet Take 1 tablet by mouth in the morning and 1 tablet before bedtime. 04/26/2023 Activetake 1 tablet by mouth twice daily Calcium+D3 600-20 MG-MCG TABS Take 1 Tablet by mouth 2 times daily. Active calcium polycarbophil 625 mg oral tablet (20 sources)Start: 89-38-3906fbkw 1 tablet by mouth in the morningFIBER-LAX 625 mg tablet Take 1 tablet (625 mg total) by mouth in the morning. 07/21/2023 ActiveStart: 05-29-2023 End: 20-32-9387Ptbzkfi Polycarbophil (FIBER-LAX ORAL) Take by mouth. 09/21/2024 DiscontinuedCalcium Polycarbophil (FIBER-LAX ORAL) Take by mouth. ActiveCalcium Polycarbophil (FIBER-LAX ORAL) Take by mouth. 0 Gezylz99 hr carBAMazepine 200 mg extended release oral tablet (20 sources)Mood StabilizerStart: 72-39-9456tubx 1 tablet by mouth twice daily carBAMazepine (TEGRETOL XR) 200 MG SR tablet Take 1 Tablet by mouth 2 times daily. 09/21/2024 ActiveStart: 11-12-6323vcvl 1 tablet by mouth three times dailyStart: 27-28-8487hjrf 400 mg by mouth once daily in the evening Carbamazepine Active 400 MG PO Every evening May 29, 2023 12:00amStart: 04-27-2023 End: 61-58-2602iykx 1 tablet by mouth three times dailycarBAMazepine (TEGRETOL XR) 200 MG SR tablet Take 200 mg by mouth 3 times daily. 11/16/2023 09/21/2024 Discontinuedtake 1 capsule by mouth once daily in the eveningcarBAMazepine ER (CARBATROL) 100 MG CR capsule Take 100 mg by mouth daily. At 4 pm Active End: 81-45-9192ovmr 1 tablet by mouth once dailycarbamazepine (TEGretol-XR) [...] 300 mg oral capsule (7 sources)Lincosamide AntibacterialStart: 95-34-6300tiwlfqfffzy (CLEOCIN) 300 mg capsule 08/05/2024 ActiveStart: 10-74-8665acyx 1 capsule by mouth three times dailyclindamycin (CLEOCIN) 300 MG capsule Take 1 Capsule by mouth 3 times daily for 7 days. 21 Capsule 07/14/2020 ActivecloNIDine hydrochloride 0.2 mg oral tablet (20 sources)Central alpha-2 Adrenergic AgonistStart: 70-70-2750iycr 1 tablet by mouth three times dailycloNIDine (Catapres) 0.2 MG tablet 1 (one) time each day at the same time Activedicyclomine hydrochloride 20 mg oral tablet (20 sources)AnticholinergicStart: 79-39-2662juza 1 tablet by mouth every six hoursdicyclomine (BENTYL) 20 mg tablet Take 1 tablet (20 mg total) by mouth every 6 (six) hours. 07/21/2023 ActiveStart: 80-52-5873mrrr 1 tablet by mouth twice dailydicyclomine (Bentyl) 20 MG tablet every 12 (twelve) hours Active docusate sodium 100 mg oral capsule (20 sources)Start: 68-13-4957tmfk 1 capsule by mouth twice daily as needed for constipationStart: 86-84-2104codb 2 capsules by mouth twice dailyStart: 89-99-0023ogkt 200 mg by mouth twice dailyDocusate Sodium Active 200 MG PO Twice daily Jalyn 7th, 2024 12:00amDocusate Sodium (DSS) 100 MG capsule 1 (one) time each day at the same time Activetake 1 capsule by mouth three times daily docusate sodium (COLACE) 100 MG capsule Take 100 mg by mouth 3 times daily. ActiveLevonorgestrel-Ethinyl Estrad (20 sources)Progestin, Estrogen, Progestin-containing Intrauterine DeviceStart: 94-53-9016ojjf 1 tablet by mouth once dailyStart: 81-84-8063feru 1 tablet by mouth once dailyLevonorgestrel-Ethinyl Estrad [...] capsule (20 sources)Peroxisome Proliferator Receptor alpha AgonistStart: 35-58-1165zeog 1 capsule by mouth once daily before breakfastfenofibrate micronized (LOFIBRA) 134 mg capsule Take 1 capsule (134 mg total) by mouth every morning before breakfast. 07/21/2023 ActiveStart: 90-98-9438vozw 1 tablet by mouth at bedtime fluticasone propionate 0.05 mg/actuat metered dose nasal spray (20 sources)CorticosteroidStart: 77-30-9010zqoi 1 spray(s) nasal route in the morningfluticasone propionate (FLONASE) 50 mcg/actuation nasal spray Administer 1 spray into each nostril in the morning. 05/29/2023 ActiveStart: 87-84-2849alca 1 spray(s) nasal route once daily as [...] mg/ml ophthalmic solution (5 sources)Non-Standardized Chemical AllergenStart: 50-35-4038sxwl 0.012-0.2 drop(s) into the eye(s) three times daily as jtduqs68 hr guaiFENesin 600 mg extended release oral tablet (5 sources)Start: 13-80-2108xefw 1 tablet by mouth twice daily as needed for congestion and coughguaiFENesin (MUCINEX) 600 mg tablet extended release 12hr TAKE ONE TABLET BY MOUTH TWICE A DAY NEEDED FOR NASAL CONGESTION AND COUGH MUCINEX 06/01/2024 ActiveguanFACINE 2 mg oral tablet (20 sources)Central alpha-2 Adrenergic AgonistStart: 30-70-3116kmnr 1 tablet by mouth once dailyguanFACINE (TENEX) 2 mg tablet Take 1 tablet (2 mg total) by mouth nightly. 05/29/2023 ActiveStart: 87-70-1886qbfi 1 tablet by mouth three times dailytake [...] mg oral tablet (20 sources)Nonsteroidal Anti-inflammatory DrugStart: 08-69-2968rrdj 1 tablet by mouth every six hours as needed for painibuprofen (MOTRIN) 400 MG tablet Take 1 Tablet by mouth every 6 hours as needed for Pain. 90 Tablet2 10/08/2024 10:08 AM EDT 10/08/2024 ActiveStart: 35-42-9818sark 1 tablet by mouth every six hours as neededibuprofen (ADVIL,MOTRIN) 200 mg tablet Take 1 tablet (200 mg total) by mouth every 6 (six) hours asneeded. 05/29/2023 ActiveStart: 65-35-0690edsf 2 tablets by mouth every four to [...] oral tablet (20 sources)Mood Stabilizer, Anti-epileptic AgentStart: 68-21-9774ydpg 1 tablet by mouth in the morninglamoTRIgine (LaMICtal) 150 mg tablet Take 1 tablet (150 mg total) by mouth in the morning. 07/21/2023 ActiveStart: 78-98-2195hdpy 0.5 tablet by mouth in the morninglamoTRIgine (LaMICtal) 200 mg tablet Take 0.5 tablets (100 mg total) by mouth in the morning. 07/21/2023 ActiveStart: 29-95-5204szhw 1 tablet by mouth at bedtimeStart: 62-73-2308Veiqp: 04-27-2023 take 1 tablet by mouth once daily in the morningStart: 84-36-7016bczo 2 tablets by mouth at bedtimelamoTRIgine (LaMICtal) 150 MG tablet Take 300 mg by mouth at bedtime 04/27/2023 Activetake 2 tablets by mouth once dailylamotrigine (LAMICTAL) 25 MG tablet Take 50 mg by mouth daily. Activeloperamide hydrochloride 2 mg oral tablet (20 sources)Opioid AgonistStart: 95-12-5992xeahciaswz (IMODIUM A-D) 2 mg tablet Take 1 tablet (2 mg total) by mouth as needed in the morning and 1 tablet (2 mg total) as needed at noon and 1 tablet (2 mg total) as needed in the evening. 05/29/2023 ActiveStart: 19-46-9521ixzu 1 tablet by mouth three times daily as neededloperamide (IMODIUM A-D) 2 mg tablet Take 1 tablet (2 mg total) by mouth 3 (three) times a day as needed. 05/29/2023 ActiveStart: 65-79-4079krkccvqefr 10 mg oral tablet (20 sources)Start: 47-15-5040kkvv 1 tablet by mouth once dailymetoprolol tartrate 100 mg oral tablet (20 sources)beta-Adrenergic BlockerStart: 05-29-2023 End: 98-27-7066hyiu 1 tablet by mouth four times dailymetoprolol [...] mg oral tablet (20 sources)Leukotriene Receptor AntagonistStart: 28-08-8355nyfs 1 tablet by mouth once dailynaltrexone hydrochloride 50 mg oral tablet (4 sources)Opioid Antagonisttake 1 tablet by mouth once dailynaltrexone (DEPADE) 50 MG tablet Take 50 mg by mouth daily. ActiveOLANZapine 20 mg oral tablet (20 sources)Atypical AntipsychoticStart: 27-67-6307lmbl 1 tablet by mouth once dailyOLANZapine (ZyPREXA) 20 mg tablet Take 1 tablet (20 mg total) by mouth nightly. Total 30mg 07/21/2023 ActiveStart: 96-56-2393Cypjq: 04-27-2023 End: 47-09-6657jfsk 1 tablet by mouth once daily at bedtimeomeprazole 20 mg delayed release oral capsule (20 sources)Proton Pump InhibitorStart: 78-95-6522ctlw 1 capsule by mouth once daily2 ml ondansetron 2 mg/ml injection (20 sources)Serotonin-3 Receptor AntagonistStart: 10-08-2024 End: 39-12-3445xjwg 4 mg intravenously once as needed for nausea4 mg, Intravenous, PACU ONCE PRN, Starting on Tue10/08/24 at 0803, Until Tue10/08/24 at 1402, Nausea, Vomiting, PACU NowStart: 05-29-2023 End: 63-47-4293acrz 1 tablet by mouth every six hours [...] 5 mg oral tablet (1 source)Opioid AgonistStart: 71-41-347604 mg, Oral, PRN, 1 dose, Starting on Tue10/08/24 at 0803, Until Discontinued, Moderate Pain (pain score 4,5,6), PACU Now24 hr paliperidone 6 mg extended release oral tablet (20 sources)Atypical AntipsychoticStart: 87-05-4934xpqk 1 tablet by mouth once daily in the morningpaliperidone (INVEGA) 6 mg 24 hr tablet Take 1 tablet (6 mg total) by mouth every morning. 07/21/2023 ActiveStart: 21-96-1878cxtz 1 tablet by mouth twice dailyStart: 02-27-7307qhikkbdtroom (Invega) 6 MG 24 hr tablet 1 tablet in the morning and 1 tablet before bedtime. 04/27/2023 Activepetrolatum 1 mg/mg topical ointment (5 sources)Start: 66-71-2028ilwdaxboqrti glycol 3350 87362 mg powder for oral solution (20 sources)Osmotic LaxativeStart: 51-68-6472zxykiarkflgc glycol (GLYCOLAX) 17 gram/dose powder Take 17 g by mouth. 11/18/2023 ActiveStart: 08-28-6510vcytlqwm 400 mg oral capsule (2 sources)Start: 37-01-2450Rzgkxefp Husk (Metamucil) 0.4 gram capsule (1 source)Start: 65-86-0043Tuqlciwa Husk (Metamucil) 0.4 gram capsule Active 0.4 GM PO Daily August 06, 2023 12:00amraNITIdine 150 mg oral tablet (4 sources)Histamine-2 Receptor Antagonisttake 1 tablet by mouth twice daily ranitidine (ZANTAC) 150 MG tablet Take 150 mg by mouth 2 times daily. Wbdzwp89 hr scopolamine 0.0139 mg/hr transdermal system (1 source)AnticholinergicStart: 10-08-2024 End: mg, Transdermal, STAT, 1 dose, On Tue10/08/24 at 0730, Pre-op Sennosides (Senna) 8.6 mg capsule (3 sources)Start: 39-60-4550zyqv 2 capsules by mouth twice dailySennosides (Senna) 8.6 mg capsule Active 17.2 MG PO Twice daily May 29, 2023 12:00am sennosides, long term 8.6 mg oral tablet (20 sources)Start: 23-83-9777qhjbixwetq (Senokot) 8.6 MG tablet Twice daily 05/29/2023 ActiveStart: 48-37-1928gmbb 2 capsules by mouth twice daily as needed for constipationsimethicone 250 mg oral capsule (3 sources)Start: 81-03-6748bufw 1 capsule by mouth twice daily as needed tacrolimus 0.001 mg/mg topical ointment (20 sources)Calcineurin Inhibitor ImmunosuppressantStart: 93-47-1103kaxegxrxwh (Protopic) 0.1 % ointment Indications: Lip licking dermatitis Apply to affected areas bid prn when flared 60 g 11 12/09/2023 Activezolpidem tartrate 10 mg oral tablet (4 sources)gamma-Aminobutyric Acid-ergic AgonistStart: 29-70-4382gylrwcbl (AMBIEN) 10 MG tablet 06/10/2020 Active Completed/Discontinued Medications MedicationDrug Class(es)DatesSig (Normalized)Sig (Original)aprepitant 40 mg oral capsule (1 source)Substance P/Neurokinin-1 Receptor AntagonistStart: 10-08-2024 End: 60-51-8406wkcp 1 dose by mouth once40 mg, Oral, ONCE, 1 dose, On Tue10/08/24 at 0730, Pre-opStart: 10-08-2024 End: 18-38-6840dntd 1 dose by mouth once40 mg, Oral, ONCE, 1 dose, On Tue10/08/24 at 0730, Pre-opcalcium chloride 0.0014 meq/ml / potassium chloride 0.004 meq/ml / sodium chloride 0.103 meq/ml / sodium lactate 0.028 meq/ml injectable solution (3 sources)Start: 12-15-2023 End: 94-21-3134Yqurfrnanry, PRN CONTINUOUS, Starting on Melanie 12/15/23 at 0832, Until Melanie 12/15/23 at 0925dexmedetomidine 0.1 mg/ml injectable solution (3 sources)Central alpha-2 Adrenergic AgonistStart: 12-15-2023 End: 29-75-1724Snbgvnnqqel Push, PRN, Starting on Melanie 12/15/23 at 0834, Until Melanie 12/15/23 at 0925, Intra-opdiazePAM 5 mg oral tablet (5 sources)BenzodiazepineStart: 05-29-2023 End: 63-18-5707vbpw 1 tablet by mouth onceDiazepam 5 mg tablet Discontinued 5 MG PO As Directed May 29, 2023 12:00am August 06, 2023 9:27pm 1 hour prior to proceduredoxycycline hyclate 100 mg oral capsule (5 sources)Tetracycline-class DrugStart: 05-29-2023 End: 63-96-1073fugg 1 capsule by mouth twice dailyDoxycycline Hyclate 100 mg capsule Discontinued 100 MG PO Twice daily May 29, 2023 12:00am August 06, 2023 9:27pm x 10 days, started on 05/28/23fluorouracil 50 mg/ml topical cream (5 sources)Nucleoside Metabolic InhibitorStart: 05-29-2023 End: 89-10-7558Djhlmdknvdup (Efudex) 5 % cream Discontinued 1 APPLIC TOPICAL Twice daily May 29, 2023 12:00am August 06, 2023 9:27pm1 ml glycopyrrolate 0.2 mg/ml injection (3 sources)Start: 12-15-2023 End: 85-01-3994Tsistughzkr, PRN, Starting on Melanie 12/15/23 at 0834, Until Melanie 12/15/23 at 0925, Intra-op1 ml ketorolac tromethamine 30 mg/ml cartridge (3 sources)Nonsteroidal Anti-inflammatory Drug, Cyclooxygenase InhibitorStart: 12-15-2023 End: 85-89-2297Tifcbwmvqzz Push, PRN, Starting on Melanie 12/15/23 at 0912, Until Melanie 12/15/23 at 0925midazolam 1 mg/ml injectable solution (3 sources)BenzodiazepineStart: 12-15-2023 End: 34-82-1481Eohklfhfayc, PRN, Starting on Melanie 12/15/23 at 0834, Until Melanie 12/15/23 at 0925, Intra-opmoxifloxacin 400 mg oral tablet (4 sources)Quinolone AntimicrobialStart: 06-01-2023 End: 92-71-4705prra 1 tablet by mouth once dailyMoxifloxacin 400 [...] mg oral tablet (5 sources)Start: 05-29-2023 End: 11-98-2539gkgm 1 tablet by mouth once dailyPrednisone 50 [...] stress disorder; Translations: [Post-traumatic stress disorder, unspecified]Onset: 848410-30-5961JxkedcmWjkwipbjr-bgeyahp, conduct, and disruptive behavior disorders (20 sources)Attention deficit hyperactivity disorder; Translations: [Attention- deficit hyperactivity disorder, unspecified type]Onset: ChronicDevelopmental disorders (20 sources)Moderate intellectual disability; Translations: [Moderate intellectual disabilities]Onset: 755327-31-0481QortgcdXocqaqtsv of lipid metabolism (20 sources)Hypercholesterolemia; Translations: [Pure hypercholesterolemia, unspecified]Onset: 105652-78-3818HxnurnySzdqbewoi of teeth and jaw (20 sources)Chronic periodontitis; Translations: [Chronic periodontitis, unspecified]Onset: 649354-87-9307CgvqhczDxxruaxf; convulsions (20 sources)Seizure disorder; Translations: [Epilepsy, unspecified, not intractable, without status epilepticus]Onset: hronic Epilepsy; convulsions (20 sources)Seizure; Translations: [Unspecified convulsions]Onset: 07-14-2023 23-36-8650JewvwlscIheuvqyqvv disorders (11 sources)Gastroesophageal reflux disease; Translations: [Gastro-esophageal reflux disease without esophagitis]Onset: 704784-07-6238QeakrijNelxygqct hypertension (20 sources)Hypertensive disorder; Translations: [Essential (primary) hypertension]Onset: 276020-55-4976CmmamegCtkpfzplepjbw symptoms and ill- defined conditions (5 sources)Unspecified abnormal findings in urine; Translations: [Other abnormal findings in urine]Onset: 47-42-4604NqviuqznWezjgwxw; including migraine (14 sources)Headache; Translations: [Headache]Onset: EpisodicImpulse control disorders, NEC (11 sources)Impulse control disorder; Translations: [Impulse disorder, unspecified]Onset: 504533-79-8267UdgcuygImxhprqcrynlb mental health disorders (11 sources)Dissociative disorder; Translations: [Dissociative and conversion disorder, unspecified]Onset: 168746-54-6235WoqeeizNmmi disorders (20 sources)Bipolar disorder; Translations: [Bipolar disorder, unspecified] Onset: 912701-08-0378ZzxitimUfsubds (4 sources)Onychomycosis; Translations: [Tinea unguium]00-87-2690GanonsugGvmeh bone disease and musculoskeletal deformities (3 sources)Exostosis of right foot; Translations: [Other specified disorders of bone, ankle and foot]81-10-0424RhfjgsgoVklyq connective tissue disease (4 sources)Pain of toe of right foot; Translations: [Pain in right toe(s)] 36-49-5338RcgszcudTlunn connective tissue disease (6 sources)Pain of toe of left foot; Translations: [Pain in left toe(s)] 58-79-4242IadimfvrOujnk connective tissue disease (3 sources)Enthesopathy of lower limb; Translations: [Other enthesopathy of right foot and ankle]78-63-8151OpzdzpvwQaneu connective tissue disease (2 sources)Pain in right foot; Translations: [Pain in right foot]08-07-2024 EpisodicOther gastrointestinal disorders (3 sources)Constipation; Translations: [Constipation, unspecified]08-06-2023 EpisodicOther nutritional; endocrine; and metabolic disorders (1 source)Body mass index 30+ - obesity; Translations: [Body mass index (BMI) 30.0-30.9, adult]36-49-0924YeqecdtFkigt skin disorders (4 sources)Ingrowing nail; Translations: [Ingrowing nail]73-87-4019Jxsxmktl Residual codes; unclassified (2 sources)Other specified health status; Translations: [Failure of outpatient treatment]18-52-3950SnnfiofiXxwu and subcutaneous tissue infections (12 sources)Cellulitis of periorbital region; Translations: [Periorbital cellulitis]62-21-7823BgsoytolIlqtydppiidf (1 source)Medicare breast and PelvicOnset: 17-13-3902Hxrgsidwzcpy (1 source)New PatientOnset: 98-71-2669Defeplizgqcs (1 source)MassOnset: 08-09-2024 Past or Other Problems Problem ClassificationProblemDateDocumented DateEpisodic/ChronicAnxiety disorders (20 sources)Anger reaction; Translations: [Irritability and anger]Onset: 031827-52-0329SeeuypryMksxntcqa of teeth and jaw (20 sources)Dental caries; Translations: [Dental caries, unspecified]Onset: 872912-77-1208ZqrufxzbQanmu and electrolyte disorders (14 sources)Hyponatremia; Translations: [Hypo-osmolality and hyponatremia]Onset: 785183-72-3481RiqtfpevZhmqqhwkcweex and screening for infectious disease (1 source)Encounter for screening for human papillomavirus (HPV); Translations: [ENC SCREENING HUMAN PAPILLOMAVIRUS]Onset: 95-80-9065UaaqhtuoDecbrjgblwbv breast conditions (20 sources)Pain of breast; Translations: [Lump in right breast]Onset: 386387-25-1796PselnwuxKkvox nutritional; endocrine; and metabolic disorders (20 sources)Developmental delay; Translations: [Unspecified lack of expected normal physiological development in childhood]Onset: EpisodicOther screening for suspected conditions (not mental disorders or infectious disease) (20 sources)Possible ; Translations: [Encounter for test, result unknown]Onset: 948996-31-3883HmkghxpxSlpyy skin disorders (5 sources)Breast changes; Translations: [Changes in skin texture]Onset: 981115-19-2469PxgeopxkLiiqt skin disorders (1 source)Changes in skin texture; Translations: [Changes in skin texture]Onset: 45-02-2071HjaquetgEkwbrlic codes; unclassified (20 sources)Disturbance of consciousness; Translations: [Transient alteration of awareness]Onset: 092243-90-4066Yinctbni Results Test NameValueInterpretationReference RangeFacilityAnesthesia Postprocedure Evaluationon 88-59-5774Cnzsnosraplug Authentication Interface Message Text Anesthesia Postoperative Assessment: [...] ANESTHESIA NOTABLE EVENTS: No notable events documented.NormalThe [facility] SystemAnesthesia Preprocedure Evaluationon 76-13-2985Orsmdnikhgzpk Authentication Interface Message Text Attestation signed by [...] decay) Endo (+) obesity (-) diabetes mellitus flumer - negative ROS Neuro/Psych (+) bipolar disorder, [...] were discussed with the patient and/or legal ict sales representative. The risks, benefits and alternatives were reviewed. Questions regarding anesthesia were answered. Patient and/or legal ict sales representative knows such anesthetics and procedures may be performed by Resident physicians, Certified Anesthesiologist Assistants, or Certified Nurse Anesthetists under the supervision of a physician. The patient /or the patient's legal ict sales representative agree with the plan for anesthesia. [facility]An[facility] Emergency Departmenton 10-08-2024 Drill Sharpener Authentication Interface Message TextPatient taken to PACU. [...] Valdovinos DDS; Location: [facility] [place]; Service: Dental CHOLECYSTECTOMY (2009) Per OSH H+P 08/2018 DENTAL RESTORATIONS (09/15/2018) Procedure: DENTAL RESTORATIONS; Surgeon: Og Grant DDS; Location: [facility]; Service: Dental DENTAL RESTORATIONS (07/14/2020) Procedure: DENTAL RESTORATIONS; Surgeon: Og Grant DDS; Location: [facility]; Service: Dental Allergies: Abilify, Amoxicillin, Depakote [valproic acid], Food, Metyrosine, Moban [molindone], Nubain [nalbuphine], Sympathomimetics, and Vicks 44 cough relief [dextromethorphan hbr] Basic Operating Room Facts: Surgeon(s): Og Grant DDS Anesthesiologist: Kedar Moralez MD Tombstone Erector Helper: Randi Rico MD; Enio Wells MD DENTAL [...] 09/05/2018 Added automatically from request for surgery [id number] Constipation Per OSH H+P 08/2018 Dental decay 08/26/2016 Added automatically from request for surgery [id number] Developmental delay Per OSH H+P 08/2018 Hormone [...] disease K21.9 Headache R51.9 Posttraumatic stress disorder F43.10[facility] SystemBrief Operative Noteon 42-91-5821Kdqgznsarengy Authentication Interface Message TextBrief Operative Note PHE OR 3 Migdalia E Stephie 39 year old female Surgical Contact Serial Number: [id number] Preoperative Diagnosis: Pre-op Diagnosis * Caries [K02.9] [...] Posttraumatic stress disorder Procedures: Full mouth xrays [99134] Comprehensive exam [51680] Prophy [54125] Fluoride application [95578] Restorative [45743] Surgical extractions [23232] Surgeon(s): Surgeon(s): Og Grant DDS Staff: Surveyor Geodetic Nurse: Rosanna Monroe RN Dental Resident: Risa Black DDS Anesthesia: General Anesthesiologist: Kedar Moralez MD Tombstone Erector Helper: Randi Rico MD; Enio Wells MD Specimen(s): [...] Signed by Risa Black DDS 10/08/2024 9:24 [facility]ENTERFarmLink Interval H AND P Noteon 02-33-9137Uehxbxxlfokmt Authentication Interface Message TextH AND P reviewed. [...] anatomically possible Risa Black DDS 10/08/2024 7:15 [facility]ENTERWayConnected SystemOP Noteon 05-73-1698Kegencvjdukpg Authentication Interface Message TextOperative Note PHE OR 3 Migdalia Connelly 39 year old female Surgical Contact Serial Number: [id number] Preoperative Diagnosis: Pre-op Diagnosis * Caries [K02.9] [...] Posttraumatic stress disorder Procedures: Full mouth xrays [67026] Comprehensive exam [86483] Prophy [53454] Fluoride application [08535] Restorative [23043] Surgical extractions [98158] Surgeon(s): Surgeon(s): Og Grant DDS Staff: Surveyor Geodetic Nurse: Rosanna Monroe RN Dental Resident: Risa [...] mg by mouth 2 times a day.NormalThe [facility] SystemProgress Noteson 84-52-2794Rmpqdvoejimvy Authentication Interface Message Text----- Tuesday, October 08, 2024 at 9:47:45 AM ----- ----- Provider: Satinder Obiren DDS -- Clinic: [facility] ----- [...] Note Type: OP Note Status: Cosign Needed Weigher Bulker: Risa Black DDS (Resident) Cosign Required: Yes Operative Note P[facility] OR 3 Migdalia Connelly 39 year old female Surgical Contact Serial Number: [id number] Preoperative Diagnosis: Pre-op Diagnosis * Caries [K02.9] [...] Posttraumatic stress disorder Procedures: Full mouth xrays [54514] Comprehensive exam [35547] Prophy [29705] Fluoride application [52406] Restorative [56812] Surgical extractions [56106] Surgeon(s): Surgeon(s): Og Grant DDS Staff: Surveyor Geodetic Nurse: Baillie, Rosanna, RN Dental Resident: Risa [...] daily. * lo (more content not included)...NormalThe [employer] Development SystemURINE HCG-IN OFFICEOrdered By: Artur Sinclair on 61-73-7759ZSY ( test) Ql (U)Negative NegativeMetroHealthNegative Internal ControlNegativeNegativeMetroHealthPositive Internal ControlPositivePositiveMetroHealthMetroHealthTelephone Encounteron 39-41-2190Szskbizwszrne Authentication Interface Message TextDr. Chatman made aware that CBC and CMP from 05/03/24 received from [facility] and scanned into [employer]. Addendum: Dr. 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 [...] Neck Extension: FROM Mouth (more content not included)...NormalRiverview Health Institute SystemPatient Instructionson 40-08-0949Eeqtlsrbhjftp Authentication Interface Message Text RECOMMENDATIONS: Patient was [...] alternative/herbal medication 10 days before surgery Brenden CasonPremier Health [facility] SystemProgress Noteson 08-28-2024 Drill Sharpener Authentication Interface Message TextNurse (LATASHA) was contacted for PAT AND OR Visit scheduled -- confirmed information with nurse , also informed nurse importance of receiving PSE call -- if not received surgery will be canceled ----- Wednesday, August 28, 2024 at 12:25:15 PM ----- ----- Provider: HANNAH Ramírez Dental-[facility]er -- [place] -----NormalWood County HospitalUrine Cultureon 33-75-2415Opbmwesm identified Cx Nom (U)<9,000 colonies/ml mixed bacterial skin contaminants 2 Days PERFORMED BY: [address] [address] PATHOLOGIST CONVERTER SKIMMER CHARLENE BEDOYA M.D.[facility] Physician GroupComment on above: Performed By: #### CUU #### [place] [address] USAMAMM DIAGNOSTIC BILATERAL W CADon 73-73-9179LBKT DIAGNOSTIC BILATERAL W CADMAMM DIAGNOSTIC BILATERAL W CAD MIGDALIA STEPHIE 1985 [id number], [id number] EXAM: MAMM DIAGNOSTIC BILATERAL W CAD, US [...] MD on 08/09/2024 11:36 AM 1 b [facility] NorthAnesthesia Postprocedure Evaluationon 33-30-4743Vitcfoqxfptqz Authentication Interface Message TextAnesthesia Postoperative Assessment: Vital [...] home. ANESTHESIA NOTABLE EVENTS: No notable events documented.NormalMount St. Mary HospitalLionsharp Voiceboard SystemAnesthesia Preprocedure Evaluationon 42-05-0919Hexpcmreuwcky Authentication Interface Message TextASA: 2 No history of anesthetic complications NPO status: >8 hours Past Medical History and Review of Systems Pulmonary (-) sleep apnea Dental ROS (+) teeth problems Endo flumer (-) not (negative in clinic today) Neuro/Psych [...] were discussed with the patient and/or legal ict sales representative. The risks, benefits and alternatives were reviewed. Questions regarding anesthesia were answered. Patient and/or legal ict sales representative knows such anesthetics and procedures may be performed by Resident physicians, Certified Anesthesiologist Assistants, or Certified Nurse Anesthetists under the supervision of a physician. The patient /or the patient's legal ict sales representative agree with the plan for anesthesia. MHPATFORMNormAnna Jaques HospitalLionsharp Voiceboard SystemProgress Noteson 82-94-8187Lefppedxcdlib Authentication Interface Message Text----- February at 10:34:06 AM ----- ----- Provider: Shelby Frias DMD -- [place] ----- PT. WAS SEEN IN [facility] UNDER TWILIGHT SEDATION WITH ANESTHESIA TEAM. Anesthesia diagnosis: Unspecified mental disorder- F09 and Other intellectual disabilities- F78 Dental diagnosis: Dental Caries, unspecified - K02.9 COMPOSITE ROMAN CATHOLIC Patient is scheduled for Mu-Ism on tooth #23 MFL and 24 DFL. Reviewed Medical History. Patient is ready for treatment. Topical Benzocaine gel applied at the injection site for 2 minutes. Administered 2 carpules of Lidocaine, 2% with Epinephrine 1:100,000,. Cotton roll isolation achieved. Decay/existing gnosticism removed, cavity prepared. Selectively etched enamel with 37% phosphoric acid, rinsed, and blot dried. OptiBond bowles applied and light-cured. Condensed packable composite shade A2 in light cured increments using Mylar strip and wedge. Finished with finishing burs, checked occlusion, verified proximal contacts and gnosticism was polished. Rinsed and suctioned intraorally, advised [...] ----- Provider: Shelby Frias DMD -- Clinic: [place] -----[employer] Telephone Encounteron 39-42-3772Bhbvddsxgowed Authentication Interface Message TextAnesthesia consent obtained by Dr. Koch and scanned into [employer].NormalC[facility] Development SystemPAT Call Historyon 18-01-1718Dimmwojieodus Authentication Interface Message TextTelephone History Migdalia Connelly, [id number] 02/01/2024 Patient was identified by name and date of with Nurse Latasha from [place]. Needs: Physical, Neck Circumference, Glasses, BHCG, Intellectual [...] 1 hour prior to arriving (Nurse at [place] - Latasha- aware) 02/01/2024-[place] to provide most recent labs (fax number given) 02/14/2024-[facility] consent obtained - see interactive media director 38 year old 190.6 lbs 5' 5 [...] 09/05/2018 Added automatically from request for surgery [id number] Constipation Per OSH H+P 08/2018 Dental decay 08/26/2016 Added automatically from request for surgery [id number] Developmental delay Per OSH H+P 08/2018 Hormone [...] Decay, Dental Caries, Peridontitis, Endo (+) obesity flumer (+) irregular periods Neuro/Psych (+) bipolar disorder, [...] Valdovinos DDS; Location: [facility] [place]; Service: Dental DENTAL RESTORATIONS N/A 09/15/2018 Procedure: DENTAL RESTORATIONS; Surgeon: Og Grant DDS; Location: [facility] [place]; Service: Dental DENTAL RESTORATIONS Bilateral 07/14/2020 Procedure: DENTAL RESTORATIONS; Surgeon: Og Grant DDS; Location: [facility] [place]; Service: Dental SOCIAL HISTORY: Social History Socioeconomic History Marital status: Single Tobacco Use Smoking status: Never Smokeless tobacco: Never Substance and Sexual Activity Alcohol use: Never Drug use: Never PAIN ASSESSMENT: Severity: 0 Location: N/A LABORATORY DATA: [facility] 10/24/2023 LABS TESTS REVIEWED: CXRay: No [...] 2 MG ta (more content not included)...NormalThe [employer] Development SystemAddendum Noteon 99-10-3587Knyzugmrvmfhn Authentication Interface Message TextAddendum created 12/15/23 1134 by Orquidea Florez MD Clinical Note SignedNoWilson Street Hospital [facility] Development SystemTranscription SpinNoteation Interface Message TextAddendum created 12/15/23 1026 by Domingo Carrion APRN-CRNA Flowsheet accepted, LDA properties acceptedNoSalem City HospitalLifeBook System Anesthesia Postprocedure Evaluationon 78-45-0684Bwdweztyqgyow Authentication Interface Message TextAnesthesia Postoperative Assessment: Vital [...] home. ANESTHESIA NOTABLE EVENTS: No notable events documented.[facility] SystemAnesthesia Preprocedure Evaluationon 16-86-2665Ggvlushqoxqby Authentication Interface Message TextASA: 2 No history of anesthetic complications PSE status: Had PSE NPO status: >8 hours Past Medical History and Review of Systems (Full ROS completed in PSE) Pulmonary (-) sleep apnea Dental ROS (+) teeth problems Endo flumer (-) not (negative in clinic today) Neuro/Psych [...] were discussed with the patient and/or legal ict sales representative. The risks, benefits and alternatives were reviewed. Questions regarding anesthesia were answered. Patient and/or legal ict sales representative knows such anesthetics and procedures may be performed by Resident physicians, Certified Anesthesiologist Assistants, or Certified Nurse Anesthetists under the supervision of a physician. The patient /or the patient's legal ict sales representative agree with the plan for anesthesia. [facility] HospitalAnesthesia [facility] Emergency Departmenton 12-15-2023 Drill Sharpener Authentication Interface Message TextPatient recovered by ACTUARIAL CONSULTANT in room. Patient is awake, comfortable, and [...] Valdovinos DDS; Location: [facility] [place]; Service: Dental CHOLECYSTECTOMY (2009) Per OSH H+P 08/2018 DENTAL RESTORATIONS (09/15/2018) Procedure: DENTAL RESTORATIONS; Surgeon: Og Grant DDS; Location: [facility] [place]; Service: Dental DENTAL RESTORATIONS (07/14/2020) Procedure: DENTAL RESTORATIONS; Surgeon: Og Grant DDS; Location: [facility] [place]; Service: Dental Allergies: Abilify, Amoxicillin, Depakote [valproic acid], Food, Metyrosine, Moban [molindone], Nubain [nalbuphine], Sympathomimetics, and Vicks 44 cough relief [dextromethorphan hbr] Basic Operating Room Facts: * No surgeons listed * Anesthesiologist: Orquidea Florez MD ACTUARIAL CONSULTANT: Domingo Carrion APRN-ACTUARIAL CONSULTANT DENTAL VISIT Intraoperative Events: No acute event [...] of the report was received. Ian Soliz [facility] SystemBlood Attestationon 12-15-2023 Drill Sharpener Authentication Interface Message TextBlood Attestation: ATTESTATION OF INFORMED CONSENT FOR BLOOD: The transfusion of blood and/or blood components were discussed with the patient and/or legal ict sales representative. The risks, benefits and alternatives were reviewed. Questions regarding blood transfusions were answered. The patient /or the patient's legal ict sales representative agree with the plan for transfusion of blood and/or blood components.NormalThe [facility] SystemProgress Noteson 58-28-8010Fdnftoqcuhodi Authentication Interface Message Text----- November at 9:52:24 AM ----- ----- Provider: Orlando Alejandro, Resident -- [place] ----- PT WAS SEEN IN [facility] UNDER TWILIGHT SEDATION WITH ANESTHESIA TEAM Anesthesia [...] status of dentition on the charting. COMPOSITE ROMAN CATHOLIC Patient is scheduled for Mu-Ism on tooth #26 surface B5. Topical Benzocaine gel applied at the injection site for 2 minutes. Administered 0.5 carpules of Lidocaine, 2% with Epinephrine 1:100,000,. Isolation achieved. Decay/existing gnosticism removed, cavity prepared. Selectively etched enamel with 37% phosphoric acid, rinsed, and blot dried. OptiBond bowles applied and light-cured. Condensed packable composite shade A2 in light cured increments. Finished with finishing burs, checked occlusion, verified proximal contacts and gnosticism was polished. SIMPLE EXTRACTION tooth # 7 [...] ----- Provider: Shelby Frias DMD -- [place] -----NormalThe [employer] System PAT Appt H AND Jaspreet 12-53-1242Lgrfqdzyksmvj Authentication Interface Message Text Attestation signed by [...] Jones MD Pre-Admission Testing Consultation Migdalia Connelly, [id number] 38 year old Female 11/23/2023 Consult placed to [facility] due to significant PMH of HLD, HTN, seizures, moderate intellectual disability. [facility] Triage Risk Score Total Score: 3 2 Patient is on more than 2 antihypertension medications. 1 Patient has history of hyperlipidemia. Migdalia Connelly is scheduled for Dental Mu-Ism Pre-Op diagnosis of: Dental Carries HISTORY OF PRESENT ILLNESS: Patient is a 38 year old female with a pmh of HLD, HTN, seizures, moderate intellectual disability. Patient is here for pre-admission optimization and education prior to surgery. RECENT ILLNESS: Serious illness or hospitalization within the last six months. No STOP BANG: STOP-BANG Row Name 11/23/23 8500 History of sleep apnea? Yes Snoring No [...] Valdovinos DDS; Location: [facility] [place]; Service: Dental DENTAL RESTORATIONS N/A 09/15/2018 Procedure: DENTAL RESTORATIONS; Surgeon: Og Grant DDS; Location: [facility]; Service: Dental DENTAL RESTORATIONS Bilateral 07/14/2020 Procedure: DENTAL RESTORATIONS; Surgeon: Og Grant DDS; Location: [facility] [place]; Service: Dental Past Medical History and Review [...] mg by mouth d (more content not included)...NormalRiverview Health Institute SystemTelephone Encounteron 11-23-2023 Drill Sharpener Authentication Interface Message TextAnesthesia consent obtained and scanned into [employer]. Scheduled for surgery 12/15/2023.NormalThe [facility] SystemProgress Noteson 52-63-9912Peeisdbmsdqwb Authentication Interface Message TextParent/guardian/patient was contacted for PAT AND IV Sedation scheduled -- confirmed information with patient, also informed mom importance of going to PAT appointment -- if missed, IV Sedation will be cancelled, and you will be placed back on wait list 12/15/2023----- Tuesday, November 07, 2023 at 2:17:34 PM ----- ----- Provider: HANNAH Ramírez [facility] -- [place] -----[facility] SystemTranscription SpinNoteation Interface Message TextParent/guardian/patient was contacted for PAT AND IV Sedation scheduled -- confirmed information with patient, also informed mom importance of going to PAT appointment -- if missed, IV Sedation will be cancelled, and you will be placed back on wait list 12/15/2023----- Tuesday, November 07, 2023 at 2:12:30 PM ----- ----- Provider: HANNAH Ramírez Dental-[facility]er -- [place] -----[facility] SystemProess Noteson 49-08-1661Rnbppfxpqbhej SpinNoteation Interface Message Text----- Thursday, October 19, 2023 at 11:01:41 AM ----- ----- Provider: [id number] Veronica, Resident -- Clinic: [place] ----- LIMITED EXAM Patient presents for Emergency [...] consented to treatment today. Pt here with metal casket assembler to discuss IV sedation as a quicker [...] sedation. Informed both the patient and the metal casket assembler. Treatment request for IV sedation will be sent for the patient. Next Visit: IV sedation and appropriate treatment. ----- Signed on Thursday, October 19, 2023 at 1:27:08 PM ----- ----- Provider: Satinder Obrien DDS -- Clinic: [place] -----NormalThe [facility] Alanine aminotransferase [Enzymatic activity/volume] in Serum or PlasmaOrdered By: Titi Terry on 65-13-6389CZW [Catalytic activity/Vol]25 U/L7-52 [facility] CenterAlbumin [Mass/volume] in Serum or Plasma by Bromocresol green (BCG) dye binding methoOrdered By: Titi Terry on 28-25-4048Acqdbyu BCG dye [Mass/Vol]4.0 g/dL3.5-5.7FOhio State Harding HospitalAlkaline phosphatase [Enzymatic activity/volume] in Serum or PlasmaOrdered By: Titi Terry on 82-44-0187VRQ [Catalytic activity/Vol]32 U/L34-104 [facility] Medical CenterAspartate aminotransferase [Enzymatic activity/volume] in Serum or PlasmaOrdered By: Titi Terry on 34-86-3648BPW [Catalytic activity/Vol]24 U/L78-09OtuczgbizMetrohealth Cleveland Heights Medical CenterBacteria [Presence] in Urine by AutomatedOrdered By: HEBERT SILVA on 62-83-9227Anbtmvjq Auto Ql (U)2+ [HPF]None SeenMetrohealth Cleveland Heights Medical CenterBasophils Auto (Bld) [#/Vol]Ordered By: Titi Terry on 37-77-8937Jjermwczy (Bld) [#/Vol] 0.0 10*3/uL0.0-0.2FOhio State Harding HospitalBasophils/100 WBC Auto (Bld) Ordered By: Titi Terry on 45-07-3414Nqxwtwqrl/100 WBC (Bld)0.3 %.[facility] Medical CenterBilirubin Test strip Ql (U)Ordered By: HEBERT TEMP on 51-43-1900Awuvjwqme Ql (U)NegativeNegativeMetrohealth [facility] Center Bilirubin.direct [Mass/volume] in Serum or PlasmaOrdered By: Titi Terry on 67-58-7408Attrcztvx.direct [Mass/Vol]0.10 mg/dL0.03-0.18FOhio State Harding HospitalBilirubin.total [Mass/volume] in Serum or PlasmaOrdered By: Titi Terry on 63-04-3169Vqugrebsg [Mass/Vol]0.3 mg/dL0.3-1.0[facility] Medical CenterCOVID CepheidOrdered By: Titi Terry on 08-06-2023 SARS-CoV-2 (COVID-19) Ab IA QlNegativeNegFort Hamilton Hospital Comment on above:This is a duplicate Cepheid Xpert Xpress CoV-2/Flu/RSV Plus RNA by RT-PCR result to be used for statistical tracking purpose only.SARS-CoV-2 (COVID-19) RNA ROSENDO+probe Ql (Unsp spec)[facility] CenterCalcium [Mass/volume] in Serum or PlasmaOrdered By: Titi Terry on 08-06-2023 Calcium [Mass/Vol]8.8 mg/dL8.6-10.3FOhio State Harding HospitalCarbon dioxide, total [Moles/volume] in Serum or PlasmaOrdered By: Titi Terry on 95-93-4130RV3 [Moles/Vol]22.4 mmol/L21.0-31.0[facility] Chloride [Moles/volume] in Serum or PlasmaOrdered By: Titi Terry on 48-53-5812Spdwslfg [Moles/Vol]99 mmol/B26-904WpzuzprhyMetrohealth Cleveland Heights Medical Center Color Auto (U)Ordered By: PROVIDER TEMP on 93-14-5716Nqidf (U)YellowYellow [facility] CenterCreatinine [Mass/volume] in Serum or Plasma Ordered By: Titi Terry on 86-61-1234Cobvbtpldw [Mass/Vol]0.56 mg/dL 0.60-1.20[facility] Medical CenterEosinophils Auto (Bld) [#/Vol]Ordered By: Titi Terry on 16-18-6536Qvmjibqpkus (Bld) [#/Vol]0.0 10*3/uL0.0-0.45 [facility] CenterEosinophils/100 WBC Auto (Bld)Ordered By: Titi Terry on 96-69-9492Rjsotkpyrbb/100 WBC (Bld)0.3 %.[facility] Medical CenterEpithelial cells.non-squamous [#/area] in Urine sediment by Automated countOrdered By: PROVIDER TEMP on 39-18-9517Oonaxkfmio cells.non- squamous Auto (Urine sed) [#/Area]1-2 [HPF]None SeenMetrohealth Cleveland Heights Medical CenterEpithelial cells.squamous [#/area] in Urine sediment by Automated count Ordered By: PROVIDER TEMP on 24-65-4172Ugxwlrnpcp cells.squamous Auto (Urine sed) [#/Area]10-19 [HPF]0-2FOhio State Harding HospitalErythrocyte distribution width Auto (RBC) [Ratio]Ordered By: Titi Terry on 08-06-2023 Erythrocyte distribution width (RBC) [Ratio]13.0 %11.9-15.3FOhio State Harding HospitalErythrocytes [#/area] in Urine sediment by Automated countOrdered By: PROVIDER TEMP on 44-25-6474YRW Auto (Urine sed) [#/Area]5-9 [HPF]0-4 [facility] CenterGlobulin Calc (S) [Mass/Vol]Ordered By: Titi Terry on 67-33-9711Ogoibqmb (S) [Mass/Vol]2.9 g/dLMetrohealth Cleveland Heights Medical CenterGlucose [Mass/volume] in Serum or PlasmaOrdered By: Titi Terry on 90-44-3448Wwjawyq [Mass/Vol]116 mg/iC38-327AvjbmntacMetrohealth Cleveland Heights Medical Center Comment on above:ADA recommended reference rangeRandom Glucose Reference Range is dependent on time and content of last meal. Glucose of more than 200 mg/dL in a nonstressed, ambulatory subject supports the diagnosisof Diabetes Mellitus. Glucose [Mass/volume] in Urine by Test stripOrdered By: PROVIDER TEMP on 97-17-2550Nggdlgn Test strip (U) [Mass/Vol]Normal mg/dLNormalMetrohealth Cleveland Heights Medical CenterHematocrit Auto (Bld) [Volume fraction]Ordered By: Titi Terry on 48-03-1079Uaynovndus (Bld) [Volume fraction]32.9 %34.0-46.4FOhio State Harding HospitalHemoglobin Test strip Ql (U)Ordered By: PROVIDER TEMP on 55-42-2138Lzeavltevb Ql (U)NegativeNegativeMetrohealth [facility] Center Hemoglobin [Mass/volume] in BloodOrdered By: Titi Terry on 08-06-2023 Hemoglobin (Bld) [Mass/Vol]11.4 g/dL11.8-15.4FOhio State Harding Hospital Hyaline casts [#/area] in Urine sediment by Automated countOrdered By: PROVIDER TEM on 49-69-8175Vytknhk casts Auto (Urine sed) [#/Area]None [LPF]0-8[facility] CenterKetones Test strip Ql (U)Ordered By: PROVIDER TEMP on 86-17-0970Lhbdldh Ql (U)NegativeNegativeMetrohealth Cleveland Heights Medical Center Leukocyte esterase [Presence] in Urine by Test stripOrdered By: PROVIDER TEMP on 10-74-8946Vocpiiamt esterase Test strip Ql (U)2+NegativeMetrohealth Cleveland Heights Medical CenterLeukocytes [#/area] in Urine sediment by Automated countOrdered By: PROVIDER TEMP on 53-82-7166FJZ Auto (Urine sed) [#/Area]10-19 [HPF]0-4 [facility] CenterLeukocytes [#/volume] corrected for nucleated erythrocytes in Blood by Automated counOrdered By: Titi Terry on 43-65-2198LHB corrected for nucl RBC Auto (Bld) [#/Vol]9.0 10*3/uL3.8-11.6 [facility] CenterLipase [Enzymatic activity/volume] in Serum or PlasmaOrdered By: Titi Terry on 22-11-1267Rhnjtr [Catalytic activity/Vol] 25.0 U/L11.0-82.0[facility] CenterLymphocytes Auto (Bld) [#/Vol] Ordered By: Titi Terry on 12-19-0942Vgzgcdtskzd (Bld) [#/Vol]0.6 10*3/uL 1.00-4.8[facility] CenterLymphocytes/100 WBC Auto (Bld)Ordered By: Titi Terry on 26-46-8485Gzzeozoahwc/100 WBC (Bld)6.2 %.[facility] Auto (RBC) [Entitic mass]Ordered By: Titi Terry on 70-54-0060HNL (RBC) [Entitic mass]32.0 pg24.7-34.3FWilson HealthHC Auto (RBC) [Mass/Vol]Ordered By: Titi Terry on 50-32-4220YCVI (RBC) [Mass/Vol]34.8 g/dL32.0-35.0[facility] CenterMCV Auto (RBC) [Entitic vol]Ordered By: Titi Terry on 14-59-2122NFD (RBC) [Entitic vol]92.0 zV24-999IqtsfismvMetrohealth Cleveland Heights Medical CenterMonocyte distribution width [Entitic volume] in Blood by AutomatedOrdered By: Titi Terry on 08-06-2023 Monocyte distribution width Auto (Bld) [Entitic vol]28.85 %0.00-20.00[facility] CenterComment on above:For adults in ED, MDW > 20.0 may be associated with a higher risk of sepsis during the first 12 hrs of hospital admissionMonocytes Auto (Bld) [#/Vol]Ordered By: Titi Terry on 08-06-2023 Monocytes (Bld) [#/Vol]0.4 10*3/uL0.0-0.8[facility] Monocytes/100 WBC Auto (Bld)Ordered By: Titi Terry on 08-06-2023 Monocytes/100 WBC (Bld)4.2 %.[facility] CenterMucus [Presence] in Urine by AutomatedOrdered By: PROVIDER TEMP on 12-75-3942Npfir Auto Ql (U) Rare [LPF][facility] CenterNeutrophils Auto (Bld) [#/Vol]Ordered By: Titi Terry on 09-75-4098Tqxwbxisphj (Bld) [#/Vol]8.0 10*3/uL1.8-7.7 [facility] CenterNeutrophils/100 WBC Auto (Bld)Ordered By: Titi Terry on 74-03-8929Nvzyxftdxwh/100 WBC (Bld)89.0 %.[facility] CenterNitrite Test strip Ql (U)Ordered By: PROVIDER TEMP on 08-06-2023 Nitrite Ql (U)NegativeNegativeMetrohealth Cleveland Heights Medical CenterNo Panel InformationOrdered By: Titi Terry on 86-92-4204Zcnklxxja GFR (CKD-EPI)> 60.0 mL/MinMetrohealth Cleveland Heights Medical CenterPharmacy Creatinine Clearance (Chem 142.49[facility] CenterNucleated erythrocytes [Presence] in Blood by Automated countOrdered By: Titi Terry on 68-29-9592Nlcygvbrp RBC Auto Ql (Bld)0.0 /100{WBC}0-0.5FOhio State Harding HospitalPlatelet mean volume Auto (Bld) [Entitic vol]Ordered By: Titi Terry on 08-06-2023 Platelet mean volume (Bld) [Entitic vol]6.8 fL6.3-10.7FOhio State Harding HospitalPlatelets Auto (Bld) [#/Vol]Ordered By: Titi Terry on 08-06-2023 Platelets (Bld) [#/Vol]294 10*3/oM753-482AsentdqciMetrohealth Cleveland Heights Medical Center Potassium [Moles/volume] in Serum or PlasmaOrdered By: Titi Terry on 96-50-2626Txaydbwpj [Moles/Vol]3.7 mmol/L3.5-5.1[facility] CenterProtein Test strip (U) [Mass/Vol]Ordered By: PROVIDER TEMP on 08-06-2023 Protein (U) [Mass/Vol]NegativeNegativeMetrohealth Cleveland Heights Medical CenterProtein [Mass/volume] in Serum or PlasmaOrdered By: Titi Terry on 08-06-2023 Protein [Mass/Vol]6.9 g/dL6.4-8.9[facility] CenterRBC Auto (Bld) [#/Vol]Ordered By: Titi Terry on 86-83-4440JCY (Bld) [#/Vol]3.57 10*6/uL 3.60-5.00[facility] Hospitalerum or plasma albumin/globulin mass ratioOrdered By: Titi Terry on 76-03-7383Vunjmzt/Globulin [Mass ratio]1.4 {ratio}[facility] Hospitalerum or plasma anion gap determination Ordered By: Titi Terry on 26-13-3509Rfagx gap [Moles/Vol]13.3 mmol/L 6.0-15.0[facility] Hospitalerum or plasma non-glucuronidated bilirubin measurement (mass/volume)Ordered By: Titi Terry on 08-06-2023 Bilirubin.indirect [Mass/Vol]0.2 mg/dLMarion Hospitalodium [Moles/volume] in Serum or PlasmaOrdered By: Titi Terry on 08-06-2023 Sodium [Moles/Vol]131 mmol/O815-519HbvbdwcfgMarion Hospitalpecific gravity Test strip (U) [Rel density]Ordered By: PROVIDER TEMP on 08-06-2023 Specific gravity (U) [Rel density]1.0221.001-1.030[facility] CenterUrea nitrogen [Mass/volume] in Serum or PlasmaOrdered By: Titi Terry on 18-30-5473Suqu nitrogen [Mass/Vol]6 mg/dL7-25[facility] CenterUrine appearanceOrdered By: PROVIDER TEMP on 76-86-7567Vqejyhjxxm (U) CloudyClearFOhio State Harding HospitalUrobilinogen Test strip (U) [Mass/Vol]Ordered By: PROVIDER TEMP on 77-58-0731Ygpashbmkpyg (U) [Mass/Vol] Normal mg/dLNormalMetrohealth Cleveland Heights Medical CenterWBC Auto (Bld) [#/Vol]Ordered By: Titi Terry on 19-63-8500OXE (Bld) [#/Vol]9.0 10*3/uL3.8-11.6FOhio State Harding HospitalpH Test strip (U)Ordered By: HEBERT TEMP on 08-06-2023 pH (U)6.5 [pH]5.0-9.0[facility] CenterAlanine aminotransferase [Enzymatic activity/volume] in Serum or PlasmaOrdered By: Rico Romero on 47-84-3509FYC [Catalytic activity/Vol]15 U/L7-52[facility] CenterAlbumin [Mass/volume] in Serum or Plasma by Bromocresol green (BCG) dye binding methoOrdered By: Rico Romero on 76-38-0452Qzrrhod BCG dye [Mass/Vol]3.5 g/dL3.5-5.7FOhio State Harding HospitalAlkaline phosphatase [Enzymatic activity/volume] in Serum or PlasmaOrdered By: Rico Romero on 60-26-9856WDX [Catalytic activity/Vol]42 U/N67-726RevouejkjMetrohealth Cleveland Heights Medical CenterAspartate aminotransferase [Enzymatic activity/volume] in Serum or Plasma Ordered By: Rico Romero on 14-17-2985UNZ [Catalytic activity/Vol]13 U/L 13-39[facility] CenterBand form neutrophils/100 WBC Manual cnt (Bld)Ordered By: Arvind Regan on 50-42-0401Blsc form neutrophils/100 WBC (Bld)5 %0-5FOhio State Harding HospitalBasophils Auto (Bld) [#/Vol]Ordered By: Arvind Regan on 66-13-7921Ojxmyqcqk (Bld) [#/Vol]N/[facility] HospitalBasophils/100 WBC Auto (Bld)Ordered By: Arvind Regan on 06-01-2023 Basophils/100 WBC (Bld)N/[facility] HospitalBilirubin.total [Mass/volume] in Serum or PlasmaOrdered By: Rico Romero on 06-01-2023 Bilirubin [Mass/Vol]0.2 mg/dL0.3-1.0[facility] CenterC reactive protein [Mass/volume] in Serum or PlasmaOrdered By: Rico Romero on 10-40-2955GDF [Mass/Vol]1.1 mg/dL0.0-0.5FOhio State Harding HospitalCalcium [Mass/volume] in Serum or PlasmaOrdered By: Rico Romero on 06-01-2023 Calcium [Mass/Vol]8.9 mg/dL8.6-10.3FOhio State Harding HospitalCarbon dioxide, total [Moles/volume] in Serum or PlasmaOrdered By: Rico Romero on 27-05-4786GV7 [Moles/Vol]26.6 mmol/L21.0-31.0[facility] CenterChloride [Moles/volume] in Serum or PlasmaOrdered By: Rico Romero on 38-58-2413Rciinnvz [Moles/Vol]102 mmol/Q09-756KesieazvjMetrohealth Cleveland Heights Medical CenterCreatinine [Mass/volume] in Serum or PlasmaOrdered By: Rico Romero on 32-42-0936Xbxrzwrgsf [Mass/Vol]0.43 mg/dL0.60-1.20[facility] CenterEosinophils Auto (Bld) [#/Vol]Ordered By: Arvind Murdocksein on 00-06-7500Vcouzfdszzm (Bld) [#/Vol]N/[facility] Eosinophils/100 WBC Auto (Bld)Ordered By: Arvind Jass on 06-01-2023 Eosinophils/100 WBC (Bld)N/[facility] HospitalEosinophils/100 WBC Manual cnt (Bld)Ordered By: Arvind Jass on 95-34-2295Tddskyqsxbp/100 WBC (Bld)4 %1-3FOhio State Harding HospitalErythrocyte distribution width Auto (RBC) [Ratio]Ordered By: Arvind Murdocksein on 17-22-1688Evafquphdzw distribution width (RBC) [Ratio]13.7 %11.9-15.3FOhio State Harding HospitalErythrocyte sedimentation rate by Photometric methodOrdered By: Rico Romero on 86-53-8839RYU Photometric method (Bld) [Velocity]30 mm/hr0-19[facility] CenterGlobulin Calc (S) [Mass/Vol]Ordered By: Rico Romero on 81-91-9416Kxoaitor (S) [Mass/Vol]3.0 g/dLMetrohealth Cleveland Heights Medical Center Glucose [Mass/volume] in Serum or PlasmaOrdered By: Rico Romero on 62-94-8074Sfmvhir [Mass/Vol]107 mg/oI85-097HwtqsszerMetrohealth [facility] Center Comment on above:ADA recommended reference rangeRandom Glucose Reference Range is dependent on time and content of last meal. Glucose of more than 200 mg/dL in a nonstressed, ambulatory subject supports the diagnosisof Diabetes Mellitus. Hematocrit Auto (Bld) [Volume fraction]Ordered By: Arvind Regan on 06-01-2023 Hematocrit (Bld) [Volume fraction]35.5 %34.0-46.4FOhio State Harding HospitalHemoglobin [Mass/volume] in BloodOrdered By: Arvind Regan on 06-01-2023 Hemoglobin (Bld) [Mass/Vol]11.7 g/dL11.8-15.4FOhio State Harding Hospital Leukocytes [#/volume] corrected for nucleated erythrocytes in Blood by Automated counOrdered By: Arvind Regan on 77-35-5507NJJ corrected for nucl RBC Auto (Bld) [#/Vol]10.1 10*3/uL3.8-11.6FOhio State Harding HospitalLymphocytes Auto (Bld) [#/Vol]Ordered By: Arvind Regan on 06-88-8942Dkjslxbzhli (Bld) [#/Vol]N/[facility] HospitalLymphocytes/100 WBC Auto (Bld)Ordered By: Arvind Regan on 81-79-2933Lijvjiuymae/100 WBC (Bld)N/[facility] HospitalLymphocytes/100 WBC Manual cnt (Bld)Ordered By: Arvind Regan on 11-34-0638Aujuxagnhrc/100 WBC (Bld)24 %18-42[facility] HospitalH Auto (RBC) [Entitic mass]Ordered By: Yaneyda Jass on 45-42-3491VTM (RBC) [Entitic mass]31.0 pg24.7-34.3FOhio State Harding HospitalMCHC Auto (RBC) [Mass/Vol]Ordered By: Arvind Jass on 21-36-0081EBEP (RBC) [Mass/Vol]33.0 g/dL 32.0-35.0[facility] CenterMCV Auto (RBC) [Entitic vol]Ordered By: Arvind Murdocksein on 54-10-8182HBO (RBC) [Entitic vol]93.9 oQ61-041AjgwogthxMetrohealth Cleveland Heights Medical CenterMonocytes Auto (Bld) [#/Vol]Ordered By: Arvind Murdocksein on 15-07-4328Odqfqcpcy (Bld) [#/Vol]N/[facility] Monocytes/100 WBC Auto (Bld)Ordered By: Arvind Murdocksein on 88-93-6690Dafwnhvam/100 WBC (Bld)N/[facility] HospitalMonocytes/100 WBC Manual cnt (Bld) Ordered By: Arvind Jass on 18-32-2636Hbjsilqgz/100 WBC (Bld)6 %2-11[facility] CenterMyelocytes/100 WBC Manual cnt (Bld)Ordered By: Arvind Murdocksein on 19-89-4007Vgdlqqvarv/100 WBC (Bld)11 %0-0[facility] CenterNeutrophils Auto (Bld) [#/Vol]Ordered By: Arvind Murdocksein on 06-01-2023 Neutrophils (Bld) [#/Vol]N/[facility] HospitalNeutrophils/100 WBC Auto (Bld)Ordered By: neyda Murdocksein on 81-73-6174Okbdyreokmd/100 WBC (Bld)N/A [facility] CenterNo Panel InformationOrdered By: Rico Romero on 15-78-9973Uueiqibzp GFR (CKD-EPI)> 60.0 mL/MinMetrohealth Cleveland Heights Medical CenterPharmacy Creatinine Clearance (Cdes076.30[facility] CenterNucleated erythrocytes [Presence] in Blood by Automated count Ordered By: Arvind Regan on 23-31-6571Mzaazqkdw RBC Auto Ql (Bld)N/AFOhio State Harding HospitalPlatelet adequacy [Presence] in Blood by Light microscopy Ordered By: Arvind Regan on 41-51-4120Znajfcqig LM Ql (Bld)IncreasedNormal [facility] CenterPlatelet mean volume Auto (Bld) [Entitic vol] Ordered By: Arvind Poncein on 35-23-7959Qxyzpwip mean volume (Bld) [Entitic vol] 6.1 fL6.3-10.7FOhio State Harding HospitalPlatelet morphology finding [Identifier] in BloodOrdered By: Arvind Regan on 57-16-5390Xycwwtmu morphology finding Nom (Bld)NormalNormCleveland Clinic Marymount HospitalPlatelets Auto (Bld) [#/Vol]Ordered By: Arvind Regan on 38-94-9634Nbjrpnbka (Bld) [#/Vol]456 10*3/tG108-149FjpimpvpaMetrohealth Cleveland Heights Medical CenterPotassium [Moles/volume] in Serum or PlasmaOrdered By: Rico Romero on 31-85-1905Lrxkhaawt [Moles/Vol]4.3 mmol/L3.5-5.1FOhio State Harding HospitalProtein [Mass/volume] in Serum or PlasmaOrdered By: Rico Romero on 65-81-4733Jssligo [Mass/Vol]6.5 g/dL 6.4-8.9[facility] CenterRB Auto (Bld) [#/Vol]Ordered By: Arvind Regan on 92-56-6658WMD (Bld) [#/Vol]3.77 10*6/uL3.60-5.00[facility] morphologyOrdered By: rAvind Regan on 78-24-0957YKC morphology finding Nom (Bld)NormalNoParkview Health Bryan Hospital Segmented neutrophils/100 WBC Manual cnt (Bld)Ordered By: Arvind Regan on 38-94-3032Mhdwnqqth neutrophils/100 WBC (Bld)51 %50-70[facility] Hospitalerum or plasma albumin/globulin mass ratioOrdered By: Rico Romero on 66-63-3750Ikdbxzb/Globulin [Mass ratio]1.2 {ratio}[facility] Hospitalerum or plasma anion gap determinationOrdered By: Rico Romero on 09-72-7989Sodud gap [Moles/Vol]11.7 mmol/L6.0-15.0 [facility] Hospitalodium [Moles/volume] in Serum or PlasmaOrdered By: Rcio Romero on 93-81-4649Tyqudg [Moles/Vol]136 mmol/I599-494 [facility] CenterUrea nitrogen [Mass/volume] in Serum or Plasma Ordered By: Rico Romero on 15-54-4562Eqoi nitrogen [Mass/Vol]9 mg/dL 7-25[facility] CenterWBC Auto (Bld) [#/Vol]Ordered By: Arvind Regan on 51-74-1991KPA (Bld) [#/Vol]10.1 10*3/uL3.8-11.6FOhio State Harding HospitalLactate [Moles/volume] in Serum or PlasmaOrdered By: Anamaria Benton on 62-71-4387Znlbsgy [Moles/Vol]1.4 mmol/L0.5-2.2FOhio State Harding HospitalMetamyelocytes/100 WBC Manual cnt (Bld)Ordered By: Arvind Regan on 82-91-3083Qbmtmdjaxcuwad/100 WBC (Bld)8 %0-0[facility] CenterNo Panel InformationOrdered By: Arvind Regan on 57-90-8234Ynilop for Pathologist ReviewOrdered path reviewMetrohealth Cleveland Heights Medical CenterPolychromasia [Presence] in Blood by Light microscopyOrdered By: Arvind Regan on 05-31-2023 Polychromasia LM Ql (Bld)SlightMetrohealth [facility] Center Promyelocytes/100 WBC Manual cnt (Bld)Ordered By: Arvind Regan on 05-31-2023 Promyelocytes/100 WBC (Bld)1 %0-0[facility] Hospitalerum or plasma trough vancomycin levelOrdered By: Arvind Regan on 11-59-2032Ojamsrkrse trough [Mass/Vol]7.4 ug/mL10.0-20.0[facility] CenterComment on above:Last dose: -Basophils/100 WBC Manual cnt (Bld)Ordered By: Arvind Regan on 38-19-0278Sdnhhzxno/100 WBC (Bld)0 %0-2FOhio State Harding Hospital Magnesium [Mass/volume] in Serum or PlasmaOrdered By: Arvind Regan on 05-75-4589Pqofuxiib [Mass/Vol]1.8 mg/dL1.9-2.7FOhio State Harding Hospital Vancomycin [Mass/volume] in Serum or Plasma --peakOrdered By: Arvind Regan on 54-01-2985Mbxqcwjnlk peak [Mass/Vol]14.1 ug/mL20.0-40.0[facility] CenterComment on above:Last dose: -Anisocytosis LM Ql (Bld)Ordered By: Venita Amanda on 67-46-7866Xmisapevvqvy Ql (Bld)SlightMetrohealth Cleveland Heights Medical CenterBacterial blood cultureOrdered By: Venita Amanda on 05-29-2023 Bacteria identified Cx Nom (Bld)NO GROWTH 5 DAYSMetrohealth Cleveland Heights Medical CenterBacteria identified Cx Nom (Bld)NO GROWTH 5 DAYSMetrohealth [facility] Heights Medical CenterBand form neutrophils/100 WBC Manual cnt (Bld)Ordered By: Venita Amanda on 63-69-4846Jeff form neutrophils/100 WBC (Bld)1 %0-5FOhio State Harding HospitalBasophils Auto (Bld) [#/Vol]Ordered By: Venita Amanda on 89-77-7523Aoefxuhlr (Bld) [#/Vol]NMcKitrick Hospital Basophils/100 WBC Auto (Bld)Ordered By: Venita Amanda on 05-29-2023 Basophils/100 WBC (Bld)N/[facility] HospitalCalcium [Mass/volume] in Serum or PlasmaOrdered By: Venita Amanda on 56-19-1910Rmlloqo [Mass/Vol] 9.0 mg/dL8.6-10.3FOhio State Harding HospitalCarbon dioxide, total [Moles/volume] in Serum or PlasmaOrdered By: Venita Amanda on 65-03-6025OT3 [Moles/Vol]24.6 mmol/L21.0-31.0[facility] CenterChloride [Moles/volume] in Serum or PlasmaOrdered By: Venita Amanda on 05-29-2023 Chloride [Moles/Vol]99 mmol/Z65-169FfpzwprveMetrohealth Cleveland Heights Medical CenterCreatinine [Mass/volume] in Serum or PlasmaOrdered By: Venita Amanda on 05-29-2023 Creatinine [Mass/Vol]0.55 mg/dL0.60-1.20[facility] Eosinophils Auto (Bld) [#/Vol]Ordered By: Venita Amanda on 05-29-2023 Eosinophils (Bld) [#/Vol]N/AFOhio State Harding HospitalEosinophils/100 WBC Auto (Bld)Ordered By: Venita Amanda on 43-56-5043Tjnhsqqyhym/100 WBC (Bld)N/A [facility] CenterErythrocyte distribution width Auto (RBC) [Ratio]Ordered By: Venita Amanda on 49-38-0243Lciduzrefaw distribution width (RBC) [Ratio]13.7 %11.9-15.3FOhio State Harding HospitalGlucose [Mass/volume] in Serum or PlasmaOrdered By: Venita Amanda on 12-65-6503Xymegxc [Mass/Vol]163 mg/tC98-808WgxytpcvyMetrohealth Cleveland Heights Medical CenterComment on above:ADA recommended reference rangeRandom Glucose Reference Range is dependent on time and content of last meal. Glucose of more than 200 mg/dL in a nonstressed, ambulatory subject supports the diagnosisof Diabetes Mellitus.Hematocrit Auto (Bld) [Volume fraction]Ordered By: Venita Amanda on 89-95-4561Bdvixajygg (Bld) [Volume fraction]35.6 %34.0-46.4FOhio State Harding HospitalHemoglobin [Mass/volume] in BloodOrdered By: Venita Amanda on 06-10-7479Vyckpdhdpj (Bld) [Mass/Vol]11.8 g/dL11.8-15.4FOhio State Harding HospitalHypochromia LM Ql (Bld)Ordered By: Venita Amanda on 38-22-8394Vhxqrnmmajy Ql (Bld)Slight [facility] CenterLactate [Moles/volume] in Serum or Plasma Ordered By: Venita Amanda on 16-64-3153Gkqaagq [Moles/Vol]3.0 mmol/L0.5-2.2 [facility] CenterComment on above:Critical valueresult calledat 1423 on 05/29/23--- 05/29/23 1424 ---Lactic previously reported as: 3.0 *H mmol/LLeukocytes [#/volume] corrected for nucleated erythrocytes in Blood by Automated counOrdered By: Venita Amanda on 93-76-0912IJB corrected for nucl RBC Auto (Bld) [#/Vol]8.7 10*3/uL3.8-11.6FOhio State Harding Hospital Lymphocytes Auto (Bld) [#/Vol]Ordered By: Venita Amanda on 05-29-2023 Lymphocytes (Bld) [#/Vol]N/AFOhio State Harding HospitalLymphocytes/100 WBC Auto (Bld)Ordered By: Venita Amanda on 02-72-6757Fdqeqwgfuws/100 WBC (Bld)N/A [facility] CenterLymphocytes/100 WBC Manual cnt (Bld)Ordered By: Venita Amanda on 58-56-1759Drwhduimyzx/100 WBC (Bld)23 %18-42[facility] Auto (RBC) [Entitic mass]Ordered By: Venita Amanda on 80-29-4493KSI (RBC) [Entitic mass]31.0 pg24.7-34.3FOhio State Harding HospitalMCHC Auto (RBC) [Mass/Vol]Ordered By: Venita Amanda on 18-42-2594QXAK (RBC) [Mass/Vol]33.2 g/dL32.0-35.0Park[facility] HospitalV Auto (RBC) [Entitic vol]Ordered By: Venita Amanda on 69-77-0822ZUP (RBC) [Entitic vol]93.2 wX32-302AffxusjdmMetrohealth Cleveland Heights Medical CenterMetamyelocytes/100 WBC Manual cnt (Bld)Ordered By: Venita Amanda on 42-46-6331Aysvvtpzhwaeps/100 WBC (Bld)4 %0-0[facility] CenterMonocyte distribution width [Entitic volume] in Blood by AutomatedOrdered By: Venita Amanda on 70-73-9256Bisatejn distribution width Auto (Bld) [Entitic vol]18.14 %0.00-20.00[facility] CenterMonocytes Auto (Bld) [#/Vol]Ordered By: Venita Amanda on 69-69-5729Dljeaejee (Bld) [#/Vol]N/[facility] Monocytes/100 WBC Auto (Bld)Ordered By: Venita Amanda on 05-29-2023 Monocytes/100 WBC (Bld)N/[facility] HospitalMonocytes/100 WBC Manual cnt (Bld)Ordered By: Venita Amanda on 94-30-3649Uvprzccqb/100 WBC (Bld) 1 %2-11[facility] CenterMyelocytes/100 WBC Manual cnt (Bld) Ordered By: Venita Amanda on 89-52-0547Nnfgfkbhmg/100 WBC (Bld)12 %0-0 [facility] CenterNeutrophils Auto (Bld) [#/Vol]Ordered By: Venita Amanda on 71-35-6438Ymnfzgplfxo (Bld) [#/Vol]N/[facility] HospitalNeutrophils/100 WBC Auto (Bld)Ordered By: Venita Amanda on 11-73-7413Kyxzpsposvh/100 WBC (Bld)N/[facility] HospitalNo Panel InformationOrdered By: Venita Amanda on 34-31-5875Iqpgehhxu GFR (CKD-EPI)> 60.0 mL/MinMetrohealth Cleveland Heights Medical CenterPharmacy Creatinine Clearance (Chem 149.21[facility] Hospitallides for Pathologist ReviewOrdered path reviewMetrohealth [facility] Heights Medical CenterNucleated erythrocytes [Presence] in Blood by Automated countOrdered By: Venita Amanda on 62-68-1569Idhnzubdc RBC Auto Ql (Bld)N/AFOhio State Harding HospitalPlatelet adequacy [Presence] in Blood by Light microscopyOrdered By: Venita Amanda on 67-83-1186Sngmycdlv LM Ql (Bld)NormalNoParkview Health Bryan HospitalPlatelet mean volume Auto (Bld) [Entitic vol]Ordered By: Venita Amanda on 65-56-9398Deynnfgk mean volume (Bld) [Entitic vol]6.4 fL6.3-10.7FOhio State Harding HospitalPlatelet morphology finding [Identifier] in BloodOrdered By: eVnita Amanda on 83-16-4883Fcxjqgnk morphology finding Nom (Bld)NormalNormCleveland Clinic Marymount HospitalPlatelets Auto (Bld) [#/Vol]Ordered By: Venita Amanda on 24-79-8482Zucuqyhgx (Bld) [#/Vol]403 10*3/mU686-903PsrmfohqvMetrohealth Cleveland Heights Medical CenterPolychromasia [Presence] in Blood by Light microscopyOrdered By: Venita Amanda on 81-93-5103Aswgrvffyneef LM Ql (Bld)SlightMetrohealth Cleveland Heights Medical CenterPotassium [Moles/volume] in Serum or PlasmaOrdered By: Venita Amanda on 94-82-2716Ijpvkgyfs [Moles/Vol]4.0 mmol/L3.5-5.1FOhio State Harding HospitalRBC Auto (Bld) [#/Vol]Ordered By: Venita Amanda on 73-16-2633YLR (Bld) [#/Vol]3.82 10*6/uL3.60-5.00[facility] CenterRB morphology Ordered By: Venita Amanda on 66-13-5746DUZ morphology finding Nom (Bld)N/A [facility] Hospitalegmented neutrophils/100 WBC Manual cnt (Bld) Ordered By: Venita Amanda on 97-28-0548Utuqzckri neutrophils/100 WBC (Bld)59 % 50-70[facility] Hospitalerum or plasma anion gap determination Ordered By: Venita Amanda on 16-55-1902Rjbdd gap [Moles/Vol]TNPMetrohealth Cleveland Heights Medical CenterComment on above:Test not performedSerum or plasma free cefuroxime measurement (mass/volume)Ordered By: Arvind Regan on 05-29-2023 Cefuroxime free [Mass/Vol]NegativeNegativeMetrohealth [facility] Comment on above:Performed at: - [facility] [id number] Director: Tyrell Fernandez PhD, Phone: [phone] [Moles/volume] in Serum or PlasmaOrdered By: Venita Amanda on 29-43-9417Zxacav [Moles/Vol]134 mmol/H410-147TlwmsbvarMetrohealth Cleveland Heights Medical CenterUrea nitrogen [Mass/volume] in Serum or PlasmaOrdered By: Venita Amanda on [id number] nitrogen [Mass/Vol]11 mg/dL7-25[facility] Medical CenterWBC Auto (Bld) [#/Vol]Ordered By: Venita Amanda on 29-30-8067SZH (Bld) [#/Vol]8.7 10*3/uL 3.8-11.6FOhio State Harding HospitalCarbamazepineOrdered By: SYSTEM SYSTEM on [id number] Lvl6.9 microgram/mLNormal4.0-12.0Remisol ChemComment on above:Performed By: #### [id number], [id number] #### [facility] [address] [place], [place] [address]Lvjuzgkou Orderon 18-77-6393Isrxodcif Order [id number]#1.00TIFFNormalFishMercy Medical CenterodiumOrdered By: SYSTEM SYSTEM on 21-79-6142Ssoqjz [Moles/Vol]134 mmol/L Zfj566-151Zhysage ChemComment on above:Performed By: #### [id number], [id number] #### [facility] [address] [place], [place] [address]BHHVOYVSRHnolbec By: SYSTEM SYSTEM on 42-16-6844Zfpydqiq Lvl8.7 microgram/mLNormal4.0 - 12.0 mcg/mLRemisol ChemSodium [Moles/Vol]123 mmol/LLow 135 - 145 mmol/LRemisol ChemCarbamazepineon 73-50-7262Wshoqgvk Lvl8.7 microgram/mLNormal4.0-12.0Prem[facility] CenterComment on above:Performed By: #### [id number], [id number] #### [facility] [address] [place], [place] [address]Rmehmiulc Orderon 29-85-6820Rhhnuimmn Order [id number]#1.00TIFFNormalPremier Health Atrium Medical Centerodiumon 75-78-3730Huaivm [Moles/Vol]123 mmol/HQhh908-453OosymqPremier Health Upper Valley Medical CenterComment on above:Performed By: #### [id number], [id number] #### [facility] [address] [place], [place] [address]KP (CLEAN/CATCH) FACILITY MAINTENANCE HELPER/MICRO IF IND.on 46-18-4720Iqyshfdrv Ql (U) NegativeNormalNEGATIVEMetrohealth Cleveland Heights Medical CenterComment on above:Performed By: #### UACSIND #### [facility] [address] [place] [address] Dr. Pio Kurtz (U)CLEARNormalCLEARMetrohealth Cleveland Heights Medical CenterComment on above: Performed By: #### UACSIND #### [facility] [address] [place] [address] Dr. Pio Velázquez (U)LT. YELLOWNormalYELLOWMetrohealth Cleveland Heights Medical CenterComment on above:Performed By: #### UACSIND #### [facility] [address] [place] [address] Dr. Pio MackGlucose Ql (U)NegativeNormalNEGATIVEMetrohealth Cleveland Heights Medical CenterComment on above:Performed By: #### UACSIND #### [facility] [address] [place] [address] Dr. Pio MackHemoglobin Ql (U)NegativeNormalNEGGenesis Hospital Comment on above:Performed By: #### UACSIND #### [facility] [address] [address] [address] Pio Osheaones Ql (U)NegativeNormalNEGATIVEThe [facility] Medical CenterComment on above:Performed By: #### UACSIND #### [facility] [address] [place] [address] Dr. Pio MackLEUKOCYTESNegativeNormalNEGATIVEThe [facility] Medical CenterComment on above:Performed By: #### UACSIND #### [facility] [address] [place] [address] Dr. Pio Barkertrite Ql (U)NegativeNormalNEGATIVEMetrohealth Cleveland Heights Medical CenterComment on above:Performed By: #### UACSIND #### [facility] [address] [place] [address] Dr. Poi Posadas (U)7.5 [pH]Normal5-9The [facility] Medical CenterComment on above: Performed By: #### UACSIND #### [facility] [address] [place] [address] Dr. Pio MackSPEC GRAVITY1.325Csoqqf7.005-<=1.025The [facility] Valley Medical CenterComment on above:Performed By: #### UACSIND #### [facility] [address] [place] [address] Dr. Pio May PROTEINNegativeNormalNEGATIVE/ TRACEThe [facility] Comment on above:Performed By: #### UACSIND #### [facility] [address] [place] [address] Dr. Pio Rivera MICRO INDNOT INDICATEDNormalThChildren's Hospital for RehabilitationComment on above:Performed By: #### UACSIND #### [facility] [address] [place] [address] Dr. Pio Melgozagen Qn (U)0.2 {Polina'U}/dLNormal0.2 - 1.0The [facility] Medical CenterComment on above:Performed By: #### UACSIND #### [facility] [address] [place] [address] Dr. Pio Quiñones ACOG PANEL 2: 30 to 66on 05-06-2022..NormalMetrohealth Cleveland Heights Medical CenterComtrinity health shel[facility] hospital on above:Result Comment: Performed at: WBPerformed By: #### [id number] #### [facility] [address] [place] [address] Dr. Pio Baer Gdln ACOG Tetedtl39-57DopablRtuGuernsey Memorial HospitalComment on above:Performed By: #### [id number] #### [facility] [address] [place] [address] Dr. Pio MackDIAGNOSIS:CommentSCCI Hospital Lima on above: Result Comment: NEGATIVE FOR INTRAEPITHELIAL LESION OR MALIGNANCY. Performed at: WBPerformed By: #### [id number] #### [facility] [address] [place] [address] Dr. Pio Milner AptimaNegativeNormalNegativeMetrohealth Cleveland Heights Medical CenterComtrinity health shel[facility] hospital on above:Result Comment: This nucleic acid amplification test detects fourteen high-risk HPV types (16,18,31,33,35,39,45,51,52,56,58,59,66,68) without differentiation. Performed at: =GPerformed By: #### [id number] #### [facility] [address] [place] [address] Dr. Pio Milner Genotype ReflexCommentProMedica Toledo HospitalComtrinity health shelby hospital on above:Result Comment: Criteria not met, HPV Genotype not performed. Performed at: WBPerformed By: #### [id number] #### [facility] [address] [place] [address] Dr. Pio MackMethodology:CommentSCCI Hospital Lima on above: Result Comment: This liquid based ThinPrep(R) pap test was screened with the use of an image guided system. Performed at: WBPerformed By: #### [id number] #### [facility] [address] [place] [address] Dr. Pio MackNote:CommentSCCI Hospital Lima on above:Result Comment: The Pap smear is a screening test designed to aid in the detection of premalignant and malignant conditions of the uterine cervix. It is not a diagnostic procedure and should not be used as the sole means of detecting cervical cancer. Both false-positive and false-negative reports do occur. . Performed at: WBPerformed By: #### [id number] #### [facility] [address] [place] [address] Dr. Pio MackPerformed by:CommentProMedica Toledo HospitalComtrinity health shelby hospital on above: Result Comment: Mary Anne Poe, Battery Tester Field (ASCP) Performed at: WBPerformed By: #### [id number] #### [facility] [address] [place] [address] Dr. Pio MackSpecimen adequacy:CommentSCCI Hospital Lima on above:Result Comment: Satisfactory for evaluation. Endocervical and/or squamous metaplastic cells (endocervical component) are present. Performed at: WBPerformed By: #### [id number] #### [facility] [address] [place] [address] Dr. Pio Mack Vital Signs Date TimeVital SignValuePerforming VimojzdpkJekxmtnk29-61-2452 09:03-0400Body .83 Juankapil Mike PULP PRESS TENDER-KETTLE TENDER-C Work Phone: 1(012)969-[address] [place], [place] 7926110-29-2025 09:03-0400 Body mass index (BMI) [Ratio]31.4 kg/l8WoxcfMigdalia Mike PULP PRESS TENDER-KETTLE TENDER-C Work Phone: 1(917)166-[address] [place], [place] 7926110-29-2025 09:03-0400 Body ewcayy24.36 kgriley Mike PULP PRESS TENDER-KETTLE TENDER-C Work Phone: 1([phone] [place], [place] 7926110-29-2025 09:03-0400 Diastolic blood mm[Hg]Migdalia Rashid PULP PRESS TENDER-KETTLE TENDER-C Work Phone: 1([phone] [place], [place] 79[address]110-29-2025 09:03-0400 Heart rate67 /Rahel Mike PULP PRESS TENDER-KETTLE TENDER-C Work Phone: [facility]10-29-2025 09:03-0400 Respiratory rate16 /minSarah Rashid PULP PRESS TENDER-KETTLE TENDER-C Work Phone: [facility]10-29-2025 09:03-0400 SaO2% (BldA) [Mass fraction]98 %Migdalia Mike PULP PRESS TENDER-KETTLE TENDER-C Work Phone: [facility]10-29-2025 09:03-0400 Systolic blood kxitgnwo539 mm[Hg]Migdalia Mike PULP PRESS TENDER-KETTLE TENDER-C Work Phone: [facility]09-30-2025 10:58-0400 Body eadfqi814.8 cmKatherine Romp PA Work Phone: [facility] [employer] Zmeacb92-41-8310 10:58-0400Body mass index (BMI) [Ratio]27.73 kg/d7Xvpipdkje Romp PA Work Phone: [facility] HospitalDizzywood Kbroon31-30-0436 10:58-0400Body beutzk33.39 kgKatherine Romp PA Work Phone: [facility] HospitalQuickfilter Technologies09-30-2025 10:58-0400Diastolic blood wiflqorr17 mm[Hg]Abby Romp PA Work Phone: [facility] [employer] Kiveos20-23-0773 10:58-0400Heart rate 62 /minKatherine Romp PA Work Phone: [facility] HospitalQuickfilter Technologies09-30-2025 10:58-0400 Respiratory rate16 /minKatherine Romp PA Work Phone: [facility] HospitalQuickfilter Technologies09-30-2025 10:58-0400Systolic blood ukautneh056 mm[Hg]Abby Romp PA Work Phone: [facility] [employer] Resfne43-41-9302 09:29-0400Body .6 cmMarc Dolce DPM FACFAS Work Phone: [facility] CenterSrqrnbfdst81-57-8269 09:29-0400Body mass index (BMI) [Ratio]33.81 kg/m2Maryusuf Charlton DPM FACFAS Work Phone: 1(545)[address] [place], [place] 8050309-24-2025 09:29-0400Body akhriw88.36 kgMarc Latesha DPM FACFAS Work Phone: 1(324)[address] [place], [place] 8050309-24-2025 09:29-0400Diastolic blood tbcavelp48 mm[Hg]Bhanu Charlton DPM FACFAS Work Phone: 1(488)[address] [place], [place] 8050309-24-2025 09:29-0400Heart rate75 /min Bhanu Charlton DPM FACFAS Work Phone: 1(184)[address] [place], [place] 8050309-24-2025 09:29-0400Systolic blood ygzpfndq683 mm[Hg]Bhanu Charlton DPM FACFAS Work Phone: 1(066)[address] [place], [place] 8050308-18-2025 10:00-0400Body temperature 97.9 [degF]Ogjesus manuel Grant DDS Work Phone: met709-9329JjjmuFcbwbd07-238966RurgxDrlmqu36-09-3058 10:00-0400Diastolic blood qulehufh56 mm[Hg]Ogjesus manuel Grant DDS Work Phone: MetroHealthComment on above:ok for DC per Dr. Moralez, pt will take home BP wmyn04-38-6158 10:00-0400Heart hofn329 /minCatiaith Avinash-Romainjarodi DDS Work Phone: [phone]tPkneim09-17-5099 10:00-0400Respiratory rate17 /minCatiaith Avinash-Romainhni DDS Work Phone: 1(913) [phone]kOzvbyn38-53-2445 10:00-5920VrJ6% (BldA) [Mass fraction]94 %Ogjesus manuel Gongyulia DDS Work Phone: 1(501) [phone]pBrzbsz29-07-2152 10:00-0400Systolic blood etnnaklj452 mm[Hg]Og OakleyRomainmerlyn DDS Work Phone: MetroHealthComment on above:ok for DC per Dr. Moralez, pt will take home BP njre73-88-1097 07:13-0400Body vjfhux472.1 cmLmarilu Grant DDS Work Phone: met802-7777YcaseVcmxmc95-539762KngchGerryz66-10-6561 07:13-0400Body mass index (BMI) [Ratio]30.29 kg/g6VnmxaOg Grant DDS Work Phone: 1(861) [phone]fHcguhr74-67-0593 07:13-0400Body trteep98.56 kg Og Grant DDS Work Phone: 1(445) [phone]qJooyuf07-31-8793 09:36-0400Body .6 cm Bhanu Charlton DPM FACFAS Work Phone: [phone]08-13-2025 09:36-0400Body mass index (BMI) [Ratio]33.81 kg/m2Marc Ivance DPM FACFAS Work Phone: 1(696)[address] [place], [place] 8050308-13-2025 09:36-0400Body ladkif74.36 kgMarc Dolce DPM FACFAS Work Phone: 1(378)[address] [place], [place] 8050308-13-2025 09:36-0400Diastolic blood iffnqejq81 mm[Hg]Bhanu Charlton DPM FACFAS Work Phone: 1(449)[address] [place], [place] 8050308-13-2025 09:36-0400Heart rate72 /min Bhanu Charlton DPM FACFAS Work Phone: 1(994)[address] [place] [address]-13-2025 09:36-0400Systolic blood trhbiauz587 mm[Hg]Bhanu Charlton DPM FACFAS Work Phone: 1(895)[address] [place], [place] 8050308-01-2025 14:39-0400Body mass index (BMI) [Ratio]30.44 kg/k4JnaawkzrGlenn Chatman MD Work Phone: 1(881) [phone]rCpkuqb51-96-2357 14:39-0400Body hwajyqwrasf20.81 [degF]Glenn Chatman MD Work Phone: 1(315) [phone]mUeedbm05-15-1328 14:39-0400Body .96 kg Glenn Chatman MD Work Phone: 1(647) [phone]aKhalmh97-04-6504 14:39-0400Diastolic blood eomqwbmn66 mm[Hg]Glenn Chatman MD Work Phone: 1(238) [phone]QbtpgPoxprn91-98-3920 14:39-0400Heart rate85 /min Glenn Chatman MD Work Phone: 1(175) [phone]QicelCaajdy79-55-5107 14:39-0400Respiratory rate18 /minEmmanjanice Chatman MD Work Phone: 1(380) [phone]bLowixh88-05-7769 14:39-0400Systolic blood oqpagmet811 mm[Hg]Glenn Chatman MD Work Phone: 1(738) [phone]vRuanja94-94-7620 10:32-0400Body eowrph767.8 cm Linn Red MD Work Phone: [facility]07-15-2025 10:32-0400Body mass index (BMI) [Ratio]31.03 kg/o2JeygyLinn Red MD Work Phone: [facility]07-15-2025 10:32-0400Body svfagp08.28 kgLinn Red MD Work Phone: [facility]07-15-2025 10:32-0400Diastolic blood qdpyvonc54 mm[Hg]Linn Red MD Work Phone: [facility]07-15-2025 10:32-0400Systolic blood wvaohgri512 mm[Hg]Linn Red MD Work Phone: [facility]07-01-2025 10:31-0400Body umcnpn028.6 cmMarc Latesha BERNSTEIN FACFAS Work Phone: [facility] CenterHkjoxrbaas80-43-0575 10:31-0400Body mass index (BMI) [Ratio]33.81 kg/m2Marc Dolce DPM FACFAS Work Phone: [facility] CenterLiogmegfyr62-53-9119 10:31-0400Body fvkjwe04.36 kgMaryusuf Charlton DPM FACFAS Work Phone: [facility] CenterIigmxjkuik00-29-1231 10:31-0400Diastolic blood bxucipin24 mm[Hg]Bhanu Charlton DPM FACFAS Work Phone: [facility] CenterAngsoaiuam41-98-8597 10:31-0400Heart rate70 /min Bhanu Charlton DPM FACFAS Work Phone: [facility] CenterXwmdiqaufw08-00-3234 10:31-0400Systolic blood fxvbmhjo128 mm[Hg]Bhanu Charlton DPM FACFAS Work Phone: [phone] CenterFwlhibzhvt36-30-7994 09:36-0400Body pdqxja127.8 cmGrjuan carlos Haque PULP PRESS TENDER-GINNER Work Phone: [facility]06-19-2025 09:36-0400Body mass index (BMI) [Ratio]31.45 kg/i4Ozcbuecwjuan carlos Haque PULP PRESS TENDER-GINNER Work Phone: [facility]06-19-2025 09:36-0400Body niwodu17.37 kgGrjuan carlos Haque PULP PRESS TENDER-GINNER Work Phone: [facility]06-19-2025 09:36-0400Diastolic blood ephvwtep02 mm[Hg]Eve Haque PULP PRESS TENDER-GINNER Work Phone: [facility]06-19-2025 09:36-0400Heart rate 69 /minJohanjuan carlos Haque PULP PRESS TENDER-GINNER Work Phone: [facility]06-19-2025 09:36-0400 Respiratory rate16 /minGrjuan carlos Haque PULP PRESS TENDER-GINNER Work Phone: [facility]06-19-2025 09:36-0400Systolic blood bufkokwu761 mm[Hg]Eve Haque PULP PRESS TENDER-GINNER Work Phone: [facility]06-17-2025 14:12-0400Body .8 Martha Red MD Work Phone: [facility]06-17-2025 14:12-0400Body mass index (BMI) [Ratio]31.54 kg/k9IhzqrLinn Red MD Work Phone: [facility]06-17-2025 14:12-0400Body mfmfli34.64 kgLinn Red MD Work Phone: [facility]06-17-2025 14:12-0400Diastolic blood lycxmkbt89 mm[Hg]Linn Red MD Work Phone: [facility]06-17-2025 14:12-0400Systolic blood mm[Hg]Linn Red MD Work Phone: [facility]06-17-2025 09:53-0400Body lgcmiz060.6 cmMarc Dolce DPM FACFAS Work Phone: 1(726)[address] [place], [place] 8050306-17-2025 09:53-0400Body mass index (BMI) [Ratio]33.81 kg/m2Marc Dolce DPM FACFAS Work Phone: 1(664)[address] [place], [place] 8050306-17-2025 09:53-0400Body vivpbv86.36 kgMarc Dolce DPM FACFAS Work Phone: 1(863)[address] [place], [place] 8050306-17-2025 09:53-0400Diastolic blood qheyxcbr97 mm[Hg]Bhanu Charlton DPM FACFAS Work Phone: 1(321)[address] [place], [place] 8050306-17-2025 09:53-0400Heart rate71 /min Bhanu Charlton DPM FACFAS Work Phone: 1(996)[address] [place], [place] 8050306-17-2025 09:53-0400Systolic blood varifzry173 mm[Hg]Bhanu Charlton DPM FACFAS Work Phone: 1(375)[address] [place], [place] 8050305-28-2025 10:55-0400Body .6 cmMarc Dolce DPM FACFAS Work Phone: 1(419)[address] [place], [place] 8050305-28-2025 10:55-0400Body mass index (BMI) [Ratio]33.81 kg/m2Marc Dolce DPM FACFAS Work Phone: 1(419)[address] [place], [place] 8050305-28-2025 10:55-0400Body jnpifp13.36 kgMarc Dolce DPM FACFAS Work Phone: 1(419)[address] [place], [place] 8050305-28-2025 10:55-0400Diastolic blood mm[Hg]Bhanu Dolce DPM FACFAS Work Phone: 1(419)[address] [place], [place] 80[address]305-28-2025 10:55-0400Heart rate72 /min Bhanu Dolce DPM FACFAS Work Phone: 1(419)[address] [place], [place] 8050305-28-2025 10:55-0400Systolic blood uwmrtpps020 mm[Hg]Bhanu Dolce DPM FACFAS Work Phone: 1(419)[address] [place], [place] 8050305-14-2025 10:23-0400Body ikjrda712.6 cmMarc Dolce DPM FACFAS Work Phone: 1(419)[address] [place], [place] 8050305-14-2025 10:23-0400Body mass index (BMI) [Ratio]33.81 kg/m2Marc Dolce DPM FACFAS Work Phone: 1(419)[address] [place], [place] 80[address]305-14-2025 10:23-0400Body qhumgg82.36 kgMarc Dolce DPM FACFAS Work Phone: 1(419)[address] [place] [address]-14-2025 10:23-0400Diastolic blood kxbcadbl47 mm[Hg]Bhanu Dolce DPM FACFAS Work Phone: 1(419)[address] [place], [place] 8050305-14-2025 10:23-0400Heart rate75 /min Bhanu Dolce DPM FACFAS Work Phone: 1(419)[address] [place], [place] 8050305-14-2025 10:23-0400Systolic blood lqmjanpo772 mm[Hg]Bhanu Lovece DPM FACFAS Work Phone: 1(419)[address] [place], [place] 8050304-23-2025 13:33-0400Body rduqoo271.1 cmZaid Joshua PULP PRESS TENDER-CNM Work Phone: [facility]04-23-2025 13:33-0400Body mass index (BMI) [Ratio]32.05 kg/r9IgwloZaid Joshua PULP PRESS TENDER-CNM Work Phone: [facility]04-23-2025 13:33-0400Body ynbrhv59.36 kgZaid Joshua PULP PRESS TENDER-CNM Work Phone: [facility]04-23-2025 13:33-0400Diastolic blood ensetmty58 mm[Hg]Zaid Joshua PULP PRESS TENDER-CNM Work Phone: [facility]04-23-2025 13:33-0400Systolic blood ulagrqlw422 mm[Hg]Zaid Joshua APRN-CNM Work Phone: [facility]04-14-2025 10:33-0400Body clfapo564.6 cmAparveen Mike PA Work Phone: [facility] CenterPqzlclovuq54-69-2053 10:33-0400Body mass index (BMI) [Ratio]33.81 kg/m2Valentina Mike PA Work Phone: [facility] CenterDguifhikmv89-81-0024 10:33-0400Body .36 kgValentina Mike PA Work Phone: [facility] CenterSeqaxlyylo79-84-3901 10:33-0400Diastolic blood eyamvbxo75 mm[Hg]Valentina Mike PA Work Phone: [place] [address]Nzjtfbkrji01-35-8417 10:33-0400Heart rate73 /min Valentina Mike PA Work Phone: [place] [address]Vmifwopyeg91-89-6195 10:33-0400Respiratory rate16 /minValentina Mike PA Work Phone: [address] [address]Jhahxhxodj74-63-5752 10:33-2334AnF3% (BldA) [Mass fraction]96 %Valentina Mike PA Work Phone: [facility] CenterMggiwnzdkc46-05-1708 10:33-0400Systolic blood mm[Hg]Valentina Mike PA Work Phone: [facility] CenterOkjbjwosbp31-25-4018 11:05-0500Body mass index (BMI) [Ratio]31.24 kg/q1AplsbzDamien Jones SPRING FORMER Work Phone: [facility] CenterElkdpmgimw38-88-4967 11:05-0500Body gqemnm32.56 kgDamien Jones SPRING FORMER Work Phone: 1(700)676-[facility]Cross[facility] CenterCkjsojfwqy22-69-7550 11:05-0500Diastolic blood qvcomjrc26 mm[Hg]Damien Jones SPR[employer]MER Work Phone: 1(323)018-[facility] CenterHhflqvknig19-20-6882 11:05-0500Heart rate84 /min Damien Jones [employer]MER Work Phone: [facility] CenterAdrmhdfyra47-27-6839 11:05-0500Systolic blood flinnmvc838 mm[Hg]Damiendaksha Jones SPR[employer] FORMER Work Phone: 1(806)673-[facility] CenterAtbhvrrbbj79-62-1756 09:30-0500Body dpzwar517.6 cmMarc Dolce DPM FACFAS Work Phone: [phone] CenterAtzksvyeap72-11-2192 09:30-0500Body mass index (BMI) [Ratio]31.58 kg/m2Marc Dolce DPM FACFAS Work Phone: 1(808)[address] [place], [place] 8050301-07-2025 09:30-0500Body pisbar34.46 kgMarc Dolce DPM FACFAS Work Phone: 1(281)[address] [place], [place] 8050301-07-2025 09:30-0500Diastolic blood dhesfkic58 mm[Hg]Bhanu Charlton DPM FACFAS Work Phone: 1(919)[address] [place], [place] 8050301-07-2025 09:30-0500Heart rate71 /min Bhanu Charlton DPM FACFAS Work Phone: 1(129)618-[address] [place], [place] [address]Tiqyfjtimw00-30-9357 09:30-0500Systolic blood kylsmzqq490 mm[Hg]Bhanu Charlton DPM FACFAS Work Phone: 1(921)[address] [place], [place] 8050312-11-2024 09:00-0500Body glsbaf399.1 cmCatherkeshawn Denton TYFejslJzwjgq61-02-9543 09:00-0500Body mass index (BMI) [Ratio]31.72 kg/x7Otxcikpaxkeshawn Denton LIYkhxiHjmhqd07-54-9589 09:00-0500Body .46 kgCatindia Denton TVRaqkvSidgfd48-83-7400 09:17-0400Body xikanqysjag91.2 [degF]Micaela VELEZ Work Phone: [phone]XpebnVrlprh17-39-7642 09:17-0400Respiratory rate0 /min Micaela VELEZ Work Phone: [phone]KkqisDepzjd89-19-0136 09:16-0400Diastolic blood ehjqsjla36 mm[Hg]Micaela VELEZ Work Phone: [phone]VeydkLwwdzc89-95-1303 09:16-0400Heart rate84 /min Micaela VELEZ Work Phone: [phone]MowuxBuwbtz92-10-0543 09:16-1788TfR0% (BldA) [Mass fraction]95 %Micaela VELEZ Work Phone: [phone]PbsxgWxhljr49-11-6368 09:16-0400Systolic blood rraxrqbi029 mm[Hg]Micaela VELEZ Work Phone: 1(840) [phone]sDfpcvy79-13-8444 09:19-0400Body .6 cm Bhanu Charlton DPM FACFAS Work Phone: [facility] CenterObtijiwwva34-65-7673 09:19-0400Body mass index (BMI) [Ratio]31.58 kg/m2Marc Dolce DPM FACFAS Work Phone: [facility] CenterJdnlylmjcg73-43-4679 09:19-0400Body ozsqiu81.46 kgMarc Dolce DPM FACFAS Work Phone: [facility] CenterScqitncaiz27-17-5349 09:19-0400Diastolic blood liuwbzdb23 mm[Hg]Bhanu Charlton DPM FACFAS Work Phone: [facility] CenterGfcginyjib33-22-7710 09:19-0400Heart rate68 /min Bhanu Charlton DPM FACFAS Work Phone: [facility] CenterXjroqoicmx27-78-6469 09:19-0400Systolic blood polyjlfk087 mm[Hg]Bhanu Charlton DPM FACFAS Work Phone: [facility] CenterKtwfbhgaaf30-39-4465 09:37-0400Diastolic blood ngnoqmvh95 mm[Hg]Case Melchor MD Work Phone: [facility]09-05-2024 09:37-0400Heart rate 65 /minCase Melchor MD Work Phone: [address] [place], [place] [id number] 09:37-0400Systolic blood kuwglcfm956 mm[Hg]Case Melchor MD Work Phone: [facility]09-05-2024 09:34-0400Body xbgawu42.46 kgCase Melchor MD Work Phone: [facility]06-15-2024 22:14-0400Diastolic blood wfwtirjp80 mm[Hg]IMAN Pathakney Saffle Work Phone: [facility]06-15-2024 22:14-0400 Heart rate85 /minBLANCASherlyn Venita Saffle Work Phone: [facility]06-15-2024 22:14-0400 Respiratory rate22 /minAPRSherlyn Venita Saffle Work Phone: [facility]06-15-2024 22:14-0400 SaO2% (BldA) [Mass fraction]100 %PULP PRESS TENDER Venita Saffle Work Phone: [facility]06-15-2024 22:14-0400 Systolic blood yemksnqi234 mm[Hg]PULP PRESS TENDER Venita Saffle Work Phone: [facility]06-15-2024 19:54-0400 Body kukwgv615.83 cmAPRSherlyn Venita Saffle Work Phone: [facility]06-15-2024 19:54-0400 Body ytcqmmadhmy67.2 [degF]IMAN Nathan Saffle Work Phone: [facility]06-15-2024 19:54-0400 Body wpejne84 kgAPRSherlyn Nathan Saffle Work Phone: [facility]06-06-2024 14:10-0400 Diastolic blood nvidacpk64 mm[Hg]Case Melchor MD Work Phone: [facility]06-06-2024 14:10-0400Heart rate 75 /minCase Melchor MD Work Phone: [facility]06-06-2024 14:10-0400Systolic blood dyljqfjg592 mm[Hg]Case Melchor MD Work Phone: [facility]06-06-2024 14:07-0400Body jxuobv38.74 kgCase Melchor MD Work Phone: [facility]06-06-2024 14:07-9467VvK0% (BldA) [Mass fraction]100 %Case Melchor MD Work Phone: [facility]04-10-2024 12:00-0400Body .3 [degF]IMAN Nathan Saffle Work Phone: [facility]04-10-2024 12:00-0400 Diastolic blood bdvhhpyk36 mm[Hg]IMAN Nathan Saffle Work Phone: [facility]04-10-2024 12:00-0400 Heart rate82 /minIMAN Nathan Saffle Work Phone: [facility]04-10-2024 12:00-0400 Respiratory rate18 /minIMAN Nathan Saffle Work Phone: [facility]04-10-2024 12:00-0400 SaO2% (BldA) [Mass fraction]98 %IMAN Nathan Saffle Work Phone: [facility]04-10-2024 12:00-0400 Systolic blood mooepqpk871 mm[Hg]IMAN Nathan Saffle Work Phone: [facility]04-10-2024 06:00-0400 Body yuluyb47 kgAPRSherlyn Francoisfle Work Phone: [facility]04-08-2024 12:46-0400 Body ulbqii873.1 cmAPRSherlyn Francoisfle Work Phone: [facility]04-07-2024 16:36-0400 Diastolic blood vhaciquy89 mm[Hg][facility]04-07-2024 16:36-0400Systolic blood rfmrrnuz200 mm[Hg][facility] 05-29-2023 15:48-0400Body xzkakqppzos76.1 [degF][facility]04-07-2024 15:48-0400Heart rate90 /[facility] 05-29-2023 15:48-0400Respiratory rate18 /[facility] 05-29-2023 15:48-2396AvI6% (BldA) [Mass fraction]96 %[facility]04-07-2024 13:05-0400Body rmrioq112.1 cmMet[facility] 05-29-2023 13:05-0400Body evijwo93.6 kgMet[facility] Encounters Encounter DateEncounter TypeCare ProviderFacilityStart: 12-19-2024 End: 46-72-9276puoddaonfuGYP STAFF-[facility] NeurologyStart: 12-19-2024 End: 62-52-0564Poxckzk encounter Sarah Mike APRN-FNP-C-[facility] Work Phone: Start: 11-20-2024 End: 21-02-5303Ypetjiuui encounterSally von Mati [facility] Surgical OncologyStart: 11-20-2024 End: 00-41-6188Vauhlg outpatient visit 25 minutesKatherkeshawn Recinos Merna PYLE Work Phone: [facility] Surgical OncologyComment on above:Cellulitis of right breast (Primary Dx)Start: 11-20-2024 End: 32-52-5782gykntnfzymFRBQVFWOA H ROMPProMedica [facility] Hospitaltart: 11-14-2024 End: 04-85-5263Wounsc flowsheetMarc D Dolce DPM FACFAS Work Phone: noms [facility]art: 11-14-2024 End: 90-82-7213Pzpqsn flowsheetMarc D Dolce DPM FACFAS Work Phone: noms [facility]tart: 11-14-2024 End: 09-49-5390Oyfomwc encounter procedureMarc D Dolce DPM FACFAS Work Phone: noms NMA PODComment on above:Onychomycosis (Primary Dx); Pain in left toe(s); Pain in right toe(s)Start: 11-14-2024 End: 19-55-2635elfyvmiifyGJVW D DOLCENot AvailableStart: 55-11-8854xbokvcxsox OG GONGIFacility:METROHealthStart: 10-08-2024 End: 34-49-2390nqpvgtozklVSRZM AL-MASHNIFacility:METROHealthStart: 10-08-2024 End: 90-51-8093Laesxcj encounter procedureOg Grant DDS Work Phone: [facility] DentistryStart: 10-08-2024 End: 24-30-9689Fordklolvz hospital visit by physicianOg Grant DDS Work Phone: metIDEA [facility]PHEREScotland [facility] Ambulatory SurgeryStart: 10-05-2024 End: 05-84-3316Bvcmccgug encounterAlvin Garcia RNMetroHealth Pre-Admission TestingComment on above:Dental (DD adult dental restorations 10/08/24 under [place] at [facility]. PAT completed 09/21/24. Consents obtained from Guardian Jessica Houston. KIM RN spoke to Yazmin MARES at [facility] on 10/05/24. Confirmed NPO after 2199. [place] address [address] [place] [address]. 0630 [facility]. [facility] DOS./)Start: 10-03-2024 End: 60-84-0469Gzddxs flowsheetMarc D Dolce DPM FACFAS Work Phone: noms [facility] CenterwnStart: 10-03-2024 End: 96-05-6828Clbwyy flowsheetMarc D Dolce DPM FACFAS Work Phone: noms [facility] Hospitaltart: 10-03-2024 End: 29-68-3654Emddderwm encounterJulienne Ty RNMetroHealth Pre-Admission TestingStart: 10-03-2024 End: 84-51-6102Zkomys outpatient visit 15 minutesMarc D Dolce DPM FACFAS Work Phone: noms NMA PODComment on above:Exostosis of right foot (Primary Dx); Other enthesopathy of right foot and ankleStart: 10-03-2024 End: 89-52-7685ayyhaiubiiBDWJ D DOLCENot AvailableStart: 09-28-2024 End: 92-53-1415Olaxnunoo encounterJulienne Ty RNMetroHealth Pre-Admission TestingStart: 62-20-6859dfjebqwfjbNKDNUFGR BOAKYEFacility:METROHealthStart: 09-21-2024 End: 12-70-2345Ukfvkk outpatient new 45 minutesGlenn Chatman MD Work Phone: MetMount [facility] Pediatric Comprehensive CareComment on above:Pre-op evaluation (Primary Dx); Body mass index (BMI) 30.0-30.9, adultStart: 09-21-2024 End: 25-84-5916Eyezfbsbdmvxs examination doneGlenn Chatman MD Work Phone: [facility] Work Phone: Start: 09-04-2024 End: 39-33-8141Tccubr outpatient visit 15 minutesComita Red MD Work Phone: [facility] Obstetrics/GynecologyComment on above:Mastodynia, female (Primary Dx)Start: 09-04-2024 End: 57-41-7014xmuvvmeavyIHSXKMultiCare [facility]acon[facility] Hospital Ambulatory PPGStart: 08-23-2024 End: 37-54-8358pmhuzkwzqjUdesev A [facility] Work Phone: Start: 08-23-2024 End: 86-27-2568Blguerhk ReferredMease [facility] DO-LAB [facility] Start: 08-21-2024 End: 98-60-9436Xuedpv flowsheetMarc D Dolce DPM FACFAS Work Phone: noms ASC PODStart: 08-21-2024 End: 84-58-8966Babxhj flowsheetMarc D Dolce DPM FACFAS Work Phone: noms ASC PODStart: 08-21-2024 End: 19-69-9803Ldhufl outpatient visit 15 minutesMarc D Dolce DPM FACFAS Work Phone: noms NMA PODComment on above:Exostosis of right foot (Primary Dx); Other enthesopathy of right foot and ankle; Right foot painStart: 08-21-2024 End: 64-11-7954ljqreevwnjQWFK D DOLCENot AvailableStart: 08-09-2024 End: 11-26-5638dqggenittyUOJQANewark Hospital HospitalStart: 08-09-2024 End: 02-62-7298Bxfbve outpatient new 30 minutesEve Haque PULP PRESS TENDER-GINNER Work Phone: [facility] Surgical OncologyComment on above:Mass of right breast, unspecified quadrant (Primary Dx); Breast skin changes; Mastodynia, femaleStart: 08-09-2024 End: 83-42-0169mjtbcaahsqVGPEUEAPEmily Ni [facility] HospitalStart: 08-08-2024 End: 90-34-6607Rnrelbjtl to same day surgery centerMitaylor Black DDS Work Phone: Met[facility]. [facility] DentistryStart: 08-07-2024 End: 34-66-7087Xukbfy outpatient visit 15 minutesLinn Red MD Work Phone: [facility] Obstetrics/GynecologyComment on above:Mastodynia, female (Primary Dx); Mass of right breast, unspecified quadrantStart: 08-07-2024 End: 12-52-9223mxbiaerykmABMBVSt. Vincent's [facility] Ambulatory PPGStart: 08-07-2024 End: 69-83-6041Wmrgrw flowsheetMarc D Dolce DPM FACFAS Work Phone: NOMS ASC PODStart: 08-07-2024 End: 40-57-3080Qxkmrd flowsheetMarc D Dolce DPM FACFAS Work Phone: [facility] ASC PODStart: 08-07-2024 End: 02-36-8876Xdyxtg outpatient visit 15 minutesMarc D Dolce DPM FACFAS Work Phone: NOM[facility] NMA PODComment on above:Exostosis of right foot (Primary Dx); Other enthesopathy of right foot and ankle; Pain in right toe(s); Right foot pain; Onychomycosis; Pain in left toe(s)Start: 08-07-2024 End: 08-32-2896osnemzaeqmGJKF D DOLCENot AvailableStart: 07-18-2024 End: 69-11-9134Zwszfy flowsheetMarc D Dolce DPM FACFAS Work Phone: [phone] ASC PODStart: 07-18-2024 End: 41-85-1284Xysrmd flowsheetMarc D Dolce DPM FACFAS Work Phone: [phone]-NOMS ASC PODStart: 07-18-2024 End: 31-08-1017Hoocmw outpatient visit 15 minutesMarc D Dolce DPM FACFAS Work Phone: noMS NMA PODComment on above:Abscess, toe, left (Primary Dx); OnychocryptosisStart: 07-18-2024 End: 83-05-0809dgnndvxknsVYIU D DOLCENot AvailableStart: 2024 End: 21-41-3336Nlwnry flowsheetMarc D Dolce DPM FACFAS Work Phone: noms ASC PODStart: 2024 End: 53-39-3818Gosggv flowsheetMarc D Dolce DPM FACFAS Work Phone: NOWB ASC PODStart: 2024 End: 54-64-1528Cxhxqg outpatient visit 15 minutesMarc D Dolce DPM FACFAS Work Phone: noms NMA PODComment on above:Onychocryptosis (Primary Dx); Pain in left toe(s); Abscess, toe, leftStart: 2024 End: 42-60-1332dvbqmqtnfuURNP D DOLCENot AvailableStart: 06-13-2024 End: 87-09-8835Wfkbaj pelvic examinationZaid Joshua IMAN-JEANNINEM Work Phone: [facility] Work Phone: Start: 06-13-2024 End: 96-90-1717Bthihqh encounter procedureZaid Joshua IMAN-CNM Work Phone: [facility] Obstetrics/GynecologyComment on above:Encounter for breast and pelvic examination (Primary Dx)Start: 06-13-2024 End: 71-58-9471xptxckfbnuZWXQU [facility] Ambulatory PPGStart: 00-23-5069Plqexpjst for gynecological examination (general) (routine) without abnormal findingsMSCASSIEU.[facility] Ambulatory PPGStart: 06-04-2024 End: 03-62-4484Jmengi Yesenia PYLE Work Phone: aNA SALUEStart: 06-04-2024 End: 89-95-8126Oqzpbwrosalia PYLE Work Phone: aNA DANICAEVUEStart: 06-04-2024 End: 24-18-8412Kkmlas outpatient visit 15 minutesPamelaanay Rashid PA Work Phone: aNA BELLEVUEComment on above:Convulsions, unspecified convulsion type (CMS/HCC) (Primary Dx); Hyponatremia; Developmental delay; Anger reactionStart: 06-04-2024 End: 81-57-0749vrgdgqafrsHWHN HILLNot AvailableStart: 05-08-2024 End: 51-39-4337svgdydpqmbWUZJ D DOLCENot AvailableStart: 02-29-2024 End: 15-44-2781Uthpyh Margoth Jones [employer] Work Phone: aNA BELLEVUEStart: 02-29-2024 End: 53-96-3991Eodeuvrosalia Jones [employer]MER Work Phone: ANA BELLEVUEStart: 02-29-2024 End: 95-53-7305Jrvkzb outpatient visit 25 minutesDamien Jones [employer] Work Phone: aNA BELLEVUEComment on above:Convulsions, unspecified convulsion type (CMS/HCC) (Primary Dx); Hyponatremia; Developmental delay; Anger reactionStart: 02-29-2024 End: 97-53-3343vvhsobzjfbMXHMMY MORRISNot AvailableStart: 02-28-2024 End: 17-12-2310Hjbzva flowsheetMarc D Dolce DPM FACFAS Work Phone: NOM[facility] ASC PODStart: 02-28-2024 End: 07-82-1669Wtettp flowsheetMarc D Dolce DPM FACFAS Work Phone: [facility] ASC PODStart: 02-28-2024 End: 18-69-7487Ifodeyq encounter procedureMarc D Dolce DPM FACFAS Work Phone: NOMS NMA PODComment on above:Onychomycosis (Primary Dx); Pain in right toe(s); Pain in left toe(s)Start: 02-28-2024 End: 01-19-8590ultqfinzffXPQW D DOLCENot AvailableStart: 02-23-2024 End: 29-06-8348Tfenakq encounter procedureJennifer Altagracia MEHTA Work Phone: [facility] HospitalStart: 02-23-2024 End: 71-50-1035eregxxcyxjLDCJQGB PROVIDERFacility:[facility] HospitalStart: 02-14-2024 End: 09-16-3521Lyoztqcli encounterJusujit Sanchez RNTr[facility] Pre-Admission TestingStart: 02-01-2024 End: 69-92-5947Xwoerxo evaluation of patient and reportPenny Denton RN [facility] Pre-Admission TestingComment on above:Pre-op evaluation (Primary Dx)Start: 02-01-2024 End: 53-97-0855Dzmrrmihnolid examination doneCatindia Denton RNTr[facility] Health System [facility] Campus Start: 45-46-7360xkvyijlfcfOKQAAYP PROVIDERFacility:[facility] HospitalStart: 02-01-2024 Encounter for other preprocedural examinationUNKNOWN PROVIDERThe [facility] SystemStart: 01-07-2024 End: 78-45-8444Znazsj encounterMetroHealthStart: 12-15-2023 End: 63-09-6194gcnslcinqrMLYZBZ GJINIFacility:[facility] HospitalStart: 12-15-2023 End: 56-32-8087Iphypwyqsm Saira Florez MD Work Phone: [facility] HospitalStart: 12-15-2023 End: 09-17-1165Sheuctk encounter procedureMarleni Alejandro DDS Work Phone: [facility] HospitalComment on above:Caries (Primary Dx)Start: 12-09-2023 End: 64-01-9655Yrrofm flowsheetNatalie A Felter PULP PRESS TENDER-GINNER Work Phone: noMS SWS DERMStart: 12-09-2023 End: 10-56-0040Ssuofg flowsheetNatalie A Felter PULP PRESS TENDER-GINNER Work Phone: noms SWS DERMStart: 12-09-2023 End: 22-57-2346Dhshbn outpatient new 30 minutesNatalie A Felter PULP PRESS TENDER-GINNER Work Phone: noms SWS DERMComment on above:Lip licking dermatitis Start: 12-09-2023 End: 86-07-8322lcqcdtsbuzEHIOLYW A FELTERNot AvailableStart: 11-23-2023 End: 91-78-7943Vjnvqqqra encounterMeldeep Webblos RNMetroHealth Pre-Admission TestingComment on above:PAT (Anesthesia consent obtained)Start: 11-23-2023 ambulatoryUNKNOWN PROVIDERFacility:METROHealthStart: 11-09-2023 End: 37-53-1493Ryygkn flowsheetMarc D Dolce DPM FACFAS Work Phone: noms ASC PODStart: 11-09-2023 End: 11-18-1560Vcjrvy flowsheetMarc D Dolce DPM FACFAS Work Phone: noms ASC PODStart: 11-09-2023 End: 29-71-1975Nqlrssd encounter procedureMarc D Dolce DPM FACFAS Work Phone: noms NMA PODComment on above:Onychomycosis (Primary Dx); Pain in right toe(s); Pain in left toe(s)Start: 10-27-2023 End: 36-04-0525Fkvdiz outpatient visit 25 minutesCase Melchor MD Work Phone: [facility] Comment on above:Hyponatremia (Primary Dx)Start: 10-19-2023 End: 11-64-1840Cvxzgpd encounter Ellen Veronica DDS Work Phone: [facility] HospitalComment on above:Caries (Primary Dx)Start: 22-89-1258hxckyxshxrYYWF GOODMAN Facility:METROHealthStart: 08-06-2023 End: 15-76-8606Qlnddsbzv department patient visitIMAN Amanda Work Phone: [facility] Work Phone: Start: 08-01-2023 End: 25-40-0274Idrukbhug encounterScanning Provider ExternalPHN [facility] HospitaloStart: 07-28-2023 End: 34-47-9296Pdpjhp outpatient new 45 Lazara Melchor MD Work Phone: [facility] Comment on above:Hyponatremia (Primary Dx)Start: 05-30-2023 End: 50-89-5556Mqwxacnirr and management of inpatientAPRN Venita Amanda Work Phone: [facility] Work Phone: Start: 51-66-9032Omtvygjecs and management of inpatientU[facility] Work Phone: Start: 53-00-4528abuehghvnhu encounterNON STAFF [facility] Work Phone: Start: 05-29-2023 End: 39-84-9635Jhc-patient / Non-visitFirrappahannock general hospital [facility] Work Phone: Start: 28-63-3636Twlkjk Michelle Melchor MD Work Phone: [facility] Comment on above:Hyponatremia (Primary Dx)Start: 04-13-2023 End: 70-95-8485sbiniqdhtjWEEAXM HERRINGFacility:FTMCStart: 04-13-2023 End: 55-21-9840Yll Drop offDANIEL MUÑOZ [facility] Start: 02-23-2023 End: 06-92-0681Zvg Drop offDANIEL MUÑOZ [facility] Start: 02-23-2023 End: 22-72-4473ljudiuqksjUEYGHP HERRINGFacility:FTMCStart: 13-09-2325sszxxppyfa DR LIO A HERRINGFacility:H3Bimpu: 06-10-2022 End: 25-85-4084Mtlusri encounter procedureElivesna Albarran DDS Work Phone: [facility] DentistryStart: 05-17-2022 End: 17-49-9325aqawaceldyGN DANIEL A HERRINGFacility:U4Yuhqc: 04-28-2022 End: 20-09-3424gqsqcttxgbMF SONAL CARRERO .Facility:Z9Ngyba: 39-84-3194Fghelo encounterMetroHealthStart: 05-08-2018 End: 33-83-2304Jrrpmbx encounter procedurePROVIDER NOT IN [facility] Procedures DateProcedureProcedure DetailPerforming ClinicianStart: 64-37-4394Vsblht-up visitFollow-upKATHERINE H ROMPStart: 31-03-8601Uxptm test visual color felipe Black DDS Work Phone: Start: 82-46-8903Rqxxyz-up visitFollow-upCORIAnay Almazan KOVACHStart: 45-71-1086Zstdzmzvlhb observation [Identifier] in Cervix by Cyto Yvette MONTANEZ Work Phone: Start: 71-93-3622MCOG-CoV-2, Influenza & RSV (PCR)IMAN Amanda Work Phone: Start: 30-69-2996GW of facial bones with contrast Start: 33-11-3884Ikdyc culture for bacteria, including anaerobic screenAPRSherlyn Amanda Work Phone: Plan of Treatment DateCare ActivityDetailAuthorStart: 45-88-8540Xkhnwukr (RZV) Vaccine (1 of 2) Shingles (RZV) Vaccine (1 of 2)MetroHealthStart: 15-90-1447LIhG,Tdap and Td Vaccines (7 - Td or Tdap)DTaP,Tdap and Td Vaccines (7 - Td or Tdap)[facility] [employer] Voiceboard SystemStart: 12-29-9869Qemnbhv vaccinationTetanus (Td or Tdap) Booster MetroHealthStart: 54-43-1305Wuswgogrp for malignant neoplasm of cervixPap Smear [facility] Uniontart: 36-45-8534Zicyc BMI ScreeningAdult BMI Screening [facility] Uniontart: 65-72-7920Hkrxoan ScreeningTobacco Screening [facility] Uniontart: 92-06-1223Lawkc BMI ScreeningAdult BMI Screening [facility] SystemStart: 27-42-4501Ozxpuwz ScreeningTobacco Screening [facility]tart: 67-32-9537Llusq BMI ScreeningAdult BMI Screening [facility]tart: 28-14-2380Mlzgsue ScreeningTobacco Screening [facility]tart: 23-05-8395Ddwwg BMI ScreeningAdult BMI Screening [facility]tart: 38-75-8505Suxkhss ScreeningTobacco Screening [facility] Uniontart: 01-30-2025 End: 32-38-5410Xticatk encounter emaggifdi61/10/2025 9:10 AM EST Procedure Visit [facility] [address] [place] [phone] Bhanu Charlton, DPM FACFAS [address] [place] [address] [facility] NMA PODStart: 04-43-8460Moydpgucr vaccinationInfluenza Vaccine (#1)MetroHealthStart: 11-20-2024 End: 23-35-5088Fhbquba encounter /30/2025 11:00 AM EDT Office Visit [facility] [address] [phone] Abby Bauman PA [address] [place] [phone] [facility] OncologyStart: 11-14-2024 End: 01-59-9216Lexebsz encounter procedureNOMS NMA PODComment on above:Arrived Start: 11-06-2024 End: 15-90-7144Yoepfkj encounter svnoeluxa57/16/2025 9:40 AM EDT Procedure Visit [facility] [address] [address] Bhanu Charlton, DPM FACFAS [address] [place], [place] [address] [facility] Start: 93-60-8458Zgzabkdnx vaccinationMercy Health West Hospitalca [facility] SystemStart: 10-17-2024 End: 06-73-2488Rnygnav encounter bxwyhluew30/27/2025 8:40 AM EDT Office Visit [facility] [address] [phone] Migdalia Mike, DIOGO [address] [place] [address] [facility] VIRAMONTESYStart: 10-08-2024 End: 04-75-4382Cxtbltytn to same day surgery [facility] Ambulatory SurgeryComment on above:DENTAL RESTORATIONSStart: 10-08-2024 End: 10-97-7919FMAONO RESTORATIONSMetroHealthStart: 67-04-5752Yzimydeifv hospital visit by physicianKettering Health Ambulatory SurgeryStart: 10-08-2024 End: 51-07-6954Rxsnkdr encounter phaqwbrgs25/18/2025 6:30 AM EDT Procedure Visit [facility] [address] [place] [address] Og Grant, DDS [address] [place], [place] [id number] [facility] DentistryStart: 10-03-2024 End: 87-27-5805Hnbvjicm Hqgymrj5710/03/2024 9:30 AM EDT Clinical Support [facility] [address] [place] [address] Bhanu Charlton, DPM FACFAS [address] [place] [address] ArrivedNOMT AD PODComment on above:ArrivedStart: 09-04-2024 End: 08-84-0840Gbfoqtr encounter dyxvzfnwh44/15/2025 10:00 AM EDT Office [facility] [address] [place] [phone] Linn Red MD [address] [place] [address] [facility]/GynecologyStart: 08-27-2024 End: 08-67-6362Svprjlv encounter pwrogxvme38/07/2025 10:20 AM EDT Office Visit [facility] [place] [address] [place] [address] Valentina Mike PA [address] [place] [address] [facility] GOFFtart: 12-10-6054IhimfFayette [facility] Start: 59-17-0175Qqyzbfth identified in Urine by CultureCommunity Memorial Hospitaltart: 08-21-2024 End: 22-68-1673Dpyuhcdd SupportNorthern Minnesota Foot & Ankle SpecialistsComment on above:ArrivedStart: 08-07-2024 End: 05-80-1975FR Breast duct - right Views W contrast intra ductMammography diagnostic unilateral right with CAD Imaging Routine Mastodynia, female Mass of right breast, unspecified quadrant Expected: 08/07/2024, Expires: 08/07/2025 [facility] Work Phone: Comment on above:Expected: 08/07/2024, Expires: 08/07/2025Start: 08-07-2024 End: 72-88-2818TY Breast - bilateral WO and W contrast IVMR bilateral breast with and without contrast with CAD Imaging Routine Mastodynia, female Mass of ri ght breast, unspecified quadrant Expected: 08/07/2024, Expires: 08/07/2025 [facility] SystemComment on above:Expected: 08/07/2024, Expires: 08/07/2025Start: 08-07-2024 End: 19-89-4232HJ Breast - right limitedUltrasound breast limited right Imaging Routine Mastodynia, female Mass of right breast, unspecified quadrant Expected: 08/07/2024, Expires: 08/07/2025[facility] SystemComment on above:Expected: 08/07/2024, Expires: 08/07/2025Start: 08-07-2024 End: 99-72-2234Zudnbxs encounter procedureNOMS NMA PODComment on above:Arrived Start: 07-18-2024 End: 86-09-8236Pufzagg encounter procedureNOMS NMA PODComment on above:Arrived Start: 2024 End: 85-71-4128Bcfpvkx encounter yknplcviq94/14/2025 10:20 AM EDT Office Visit [facility] [address] [place] [address] Hjonj, Marc D, DPM FACFAS [address] [place] [address] ArrivedNOMS NMA PODComment on above:ArrivedStart: 06-04-2024 End: 45-19-2808Wvauwwg encounter bwnfrrxoo05/14/2025 10:40 AM EDT Office Visit [facility] GARC[facility] [address] [place] [phone] Valentina Mike PA [address] [place], [place] [phone] ArrivedGHULAM GARCIAComment on above:ArrivedStart: 05-17-2024 End: 90-49-2166Xihgqkp encounter aixlbynfx69/27/2025 8:40 AM EDT Office Visit [facility] GARCIA [address] [place] [phone] Damien Jones NP [address] [place], [place] [id number] [facility] GOFFtart: 05-08-2024 End: 07-95-5919Xiufwhf encounter dtgtpupvc60/18/2025 9:30 AM EDT Procedure Visit [facility] [address] [place] [address] Bhanu Charlton, DPM FACFAS [address] [place] [address] [facility] NMA PODStart: 02-29-2024 End: 00-45-8907Aaprser encounter procedureNOMS [facility] ROUTEComment on above:ArrivedStart: 02-28-2024 End: 21-50-1439Pivlbmw encounter procedureNOMS NMA PODComment on above:Arrived Start: 02-23-2024 End: 63-68-8098Kagspzo encounter dxbwjqokd38/02/2025 10:50 AM EST Procedure Visit [facility] [address] [place] [address] Sabra Frias DMD [address] [place] [address] [facility] Start: 02-01-2024 End: 88-84-5044Nlugbiv evaluation of patient and lfvtsl2502/01/2024 9:00 AM EST Nurse Visit [facility] [address] [place] [id number] Penny Denton RN [address] [place], [place] [address]WdsgcWlxgalKettering Health Pre-Admission TestingStart: 12-15-2023 End: 01-93-3205Kvbilze encounter weiniejot40/24/2024 12:00 PM EDT Procedure Visit [facility] [address] [place] [address] Sabra Frias DMD [address] [place] [address] [facility] Start: 12-09-2023 End: 61-29-8431Zyqyqvl encounter tyfqetofg36/18/2024 12:40 PM EDT Office Visit [facility]ERM [address] [place] [phone] Tylerlizeth Ivory Gates, IMAN-GINNER [address] [place] [address] ArrivedNOMS SWS DERMComment on above: ArrivedStart: 78-53-6537Zzirlenfg vaccinationInfluenza Vaccine (#1)[facility] Start: 10-27-2023 End: 54-58-4776Ccojeka encounter /05/2024 9:30 AM EDT Office Visit [facility] [place] [address] [place] [address] Case Melchor MD [address] [place] [phone] [facility]: 04-45-2834DBRUP-19 Vaccine ( season)COVID-19 Vaccine ( season)[facility]: 10-23-2023 COVID-19 Vaccine ( season)COVID-19 Vaccine ( season) [facility]: 50-56-7370Qjoavicpu vaccinationMetroHealthStart: 52-47-9927UQ of head without contrastCT head/brain wo [facility] Start: 02-85-6938BE Unspecified body region WO contrastMarion Hospitaltart: 28-88-2818Hszditysso radiography of abdomenMarion Hospitaltart: 81-58-4457Mcoetoak identified in Urine by Culture [facility] Hospitaltart: 07-28-2023 End: 04-61-9376Zsatntq encounter gypfchuzk13/06/2024 2:30 PM EDT Office Visit [facility] [address] [place] [address] Case Melchor MD [address] [place] [address] [facility]: 07-28-2023 End: 29-08-3867ZucxmknjNcupulef Lab Routine Hyponatremia Expected: 07/28/2023 (Approximate), Expires: 07/20/2024[facility] Work Phone: Comment on above:Expected: 07/28/2023 (Approximate), Expires: 07/20/2024Start: 07-28-2023 End: 83-41-9353Plydedooee of Serum or PlasmaOsmolality Lab Routine Hyponatremia Expected: 07/28/2023 (Approximate), Expires: 07/20/2024[facility] Comment on above:Expected: 07/28/2023 (Approximate), Expires: 07/20/2024Start: 07-28-2023 End: 12-48-5382Ifjujbxirz, urineOsmolality, urine Lab Routine Hyponatremia Expected: 07/28/2023 (Approximate), Expires: 07/20/2024[facility] Comment on above:Expected: 07/28/2023 (Approximate), Expires: 07/20/2024Start: 07-28-2023 End: 26-19-5840OZP with ReflexTSH with Reflex Lab Routine Hyponatremia Expected: 07/28/2023 (Approximate), Expires: 07/20/2024[facility]Comment on above:Expected: 07/28/2023 (Approximate), Expires: 07/20/2024Start: 07-28-2023 End: 19-78-1841Flevl [Mass/volume] in Serum or PlasmaUric acid Lab Routine Hyponatremia Expected: 07/28/2023 (Approximate), Expires: 07/20/2024[facility]Comment on above:Expected: 07/28/2023 (Approximate), Expires: 07/20/2024Start: 06-09-2023 End: 95-14-7869Fnvelso encounter fitwgfwxf82/18/2024 10:00 AM EDT Office Visit [facility] [address] [place] [address] [facility]GynecologyStart: 42-37-6039IxkzelcuhMarion Hospitaltart: 74-10-4794UnlovqdxrMarion Hospitaltart: 80-27-2575UcsrpysjlMarion Hospitaltart: 62-87-7647NbslhccmxMarion Hospitaltart: 54-67-6174AtsspbryiMarion Hospitaltart: 15-75-5056KavlhectaMarion Hospitaltart: 35-37-3261NhdxcvssjMarion Hospitaltart: 06-01-2023 End: 45-38-3400JbzydynsnMarion Hospitaltart: 54-02-4804TzmjxjpzsMarion Hospitaltart: 63-07-6087Yerbcmwqumnkp metabolic 2000 panel - Serum or PlasmaMarion Hospitaltart: 05-30-2023 End: 37-07-5627GzgfwiojkMarion Hospitaltart: 55-98-6026Mcgqavpg admissionMarion Hospitaltart: 14-49-1554GfqwremibMarion Hospitaltart: 67-47-4841Fldbjjdt identified in Blood by CultureMarion Hospitaltart: 15-35-0905Fdvqs culture for bacteria, including anaerobic screenBlood CultureMarion Hospitaltart: 05-29-2023 [facility]: 55-28-9129FLCGG-19 Vaccine ( season)COVID-19 Vaccine ()[facility]: 05-03-2022 End: 21-93-4874Pbethan encounter kllcyhztb47/13/2023 Procedure Visit Dentistry Holli Nguyen, DDS [address] [place] [address] [facility]istry[facility]: 11-21-2021 Influenza vaccinationInfluenza Vaccine (#1)[facility]Start: 76-43-0666TWSAP-19 Vaccine (4 - Booster for Pfizer series)COVID-19 Vaccine (4 - Booster for Pfizer series)[facility]HealthStart: 06-33-2429Ukygkzhov for malignant neoplasm of cervix [facility] HealthcareStart: 62-02-2620WCI Vaccine (optional start 27-45 years)HPV Vaccine (optional start 27-45 years)[facility]HealthStart: 89-35-2551Mijacd wellness visitAnnual Wellness Visit (G0438)[facility]HealthStart: 93-26-5162Cjamynbnh for malignant neoplasm of cervixPap SmearMetroHealthStart: 26-96-3887BHsM,Tdap and Td Vaccines (1 - Tdap)DTaP,Tdap and Td Vaccines (1 - Tdap)[facility] SystemStart: 13-67-1951Gtybxdqww A (HAV) Vaccine (optional start 19+ years) Hepatitis A (HAV) Vaccine (optional start 19+ years)[facility]HealthStart: 2004 Adult BMI Follow Up PlanAdult BMI Follow Up PlanProTrihealth [facility] SystemStart: 25-93-7521Ymjuw BMI ScreeningAdult BMI ScreeningProTrihealth Mccull[facility] SystemStart: 39-97-1753Lxmbukbwn C screeningHepatitis C AntibodyMetroHealthStart: 2001 HIV screeningHIV TestMetroHealthStart: 89-87-1449Jaibnn wellness visitAnnual Wellness Visit (G0438)[facility]HealthStart: 90-35-9934Oebwwsyqik ScreeningDepression ScreeningProTrihealth Mcc[facility] SystemStart: 71-37-7842Lwadedx ScreeningTobacco ScreeningProTrihealth Mccull[facility] SystemStart: 89-16-7689Rvialrvop for malignant neoplasm of breastMetroHealth End: 52-85-0994Inevy metabolic 2000 panel - Serum or PlasmaBasic Metabolic Panel Lab Routine Hyponatremia 1 Occurrences starting 05/25/2023 until 05/24/2024[facility] Work Phone: Comment on above:1 Occurrences starting 05/25/2023 until 05/24/2024 End: 40-60-5172Lrsgd metabolic 2000 panel - Serum or PlasmaBASIC METABOLIC PANEL Lab Routine Pre-op evaluation 1 Occurrences starting 09/21/2024 until 09/22/19 26[email or web address] Work Phone: Comment on above:1 Occurrences starting 09/21/2024 until 09/21/2025 End: 32-74-1477LZV panel - Blood by Automated countCBC without diff Lab Routine Hyponatremia 1 Occurrences starting 05/25/2023 until 05/24/2024ProTrihealth [facility] Hospital SystemComment on above:1 Occurrences starting 05/25/2023 until 05/24/2024BC panel - Blood by Automated countCOMPLETE BLOOD COUNT Lab Routine Pre-op evaluation Ordered: 09/21/2024[facility]HealthComment on above:Ordered: 09/21/2024 Cefuroxime free [Mass/volume] in Serum or PlasmaMetrohealth Cleveland Heights Medical CenterDENTAL RESTORATIONSDENTAL RESTORATIONS Routine scheduled CariesMetroHealth End: 11-45-1860Nofwlnrys [Mass/volume] in Serum or PlasmaMagnesium Lab Routine Hyponatremia 1 Occurrences starting 05/25/2023 until 05/24/2024ProTri[facility] Hospital SystemComment on above:1 Occurrences starting 05/25/2023 until 05/24/2024Patient EducationConstipation, Adult (DC) Headache, Adult (DC)[facility] Work Phone: Patient referralUc Health Ctr Work Phone: End: 25-92-0761Tnhcdqgib [Mass/volume] in Serum or PlasmaPhosphorus Lab Routine Hyponatremia 1 Occurrences starting 05/25/2023 until 05/24/2024ProTri[facility] SystemComment on above:1 Occurrences starting 05/25/2023 until 05/24/2024 End: 19-23-1000Xwrmgup creat ratioProtein creat ratio Lab Routine Hyponatremia 1 Occurrences starting 05/25/2023 until 05/24/2024Pro[facility] SystemComment on above:1 Occurrences starting 05/25/2023 until 05/24/2024Sodium [Moles/volume] in Serum or PlasmaSodium Lab Routine Hyponatremia Ordered: 02/29/2024[facility] Work Phone: comment on above:Ordered: 02/29/2024 End: 10-06-3054Eyxgib, urine, randomSodium, urine, random Lab Routine Hyponatremia 1 Occurrences starting 07/28/2023 until 07/20/2024[facility]Comment [facility]:1 Occurrences starting 07/28/2023 until 07/20/2024 End: 25-85-7515IcjnkyfdsdPjaetfyodi Lab Routine Hyponatremia 1 Occurrences starting 05/25/2023 until 05/24/2024[facility]Comment on above:1 Occurrences starting 05/25/2023 until 05/24/2024Urine Creatinine,RdmUrine Creatinine,Rdm Lab Routine Hyponatremia Ordered: 07/28/2023[facility] HospitalComment on above:Ordered: 07/28/2023 End: 00-66-4633Yjujm test visual color cmprsn methsURINE HCG-IN OFFICE Lab Routine One time for 1 Occurrences starting 12/15/2023 until 12/15/2023[email or web address] Work Phone: comment on above:One time for 1 Occurrences starting 12/15/2023 until 12/15/2023 Immunizations Immunization DateImmunizationNotesCare DrwejlraPaqignvi57-27-3119kchhyxzsy virus vaccine, unspecified formulationIvory NAPOLES Work Phone: [facility] CenterXummmkdcta77-78-7311cijxmelsa virus vaccine, unspecified formulationCase Melchor MD Work Phone: [facility] NorthCyrqqg61-56-7081yvheqqwtb, injectable, quadrivalent, preservative ewxrWwqzhTutkdm63-74-3117ovuumnxmw virus vaccine, unspecified ytpphhesibzTubewTmjwue95-05-1818Tdjxfs (12+ yrs) SARS-COV-2 (COVID-19) vaccine, mRNA, spike protein, LNP, pres. free, 30 mcg/0.3mL dose (ZNX=309)WgaykXfktcd44-55-4485Jzvzjh (12+ yrs) SARS-COV-2 (COVID-19) vaccine, mRNA, spike protein, LNP, pres. free, 30 mcg/0.3mL dose (QWW=344)[facility] 71-77-8692rosrhfmzz, injectable, quadrivalent, preservative freeTrinity Health System West Campus 70-73-6693pqnvwlh toxoid, reduced diphtheria toxoid, and acellular pertussis vaccine, mvjowzmaFzqruGfcchk88-55-3243aotmzdnso, injectable, quadrivalent, preservative jmwdEzyuqQwcnia30-03-5320zawwpforw, injectable, quadrivalent, contains vmwonmpvkhlpZoxrcDptfhp06-98-1799ifrqnlcar, injectable, quadrivalent, preservative niztGidhdQillhr33-57-3515tkkubhwdy, seasonal, injectableMetroAshtabula General Hospital 73-65-1368lpspqrmyjmmvp polysaccharide (groups A, C, Y and W-135) diphtheria toxoid conjugate vaccine (MCV4P)QnkksSyrsbk04-18-4048RH(adult) unspecified zcefsslyobkXabypNkjubm15-08-9488yaeamdoya B vaccine, pediatric or pediatric/adolescent pdvkubKoyhwImaupn54-19-8107kdtpeqjzu B vaccine, pediatric or pediatric/adolescent cgoiivKkhftNoktgx77-79-3760ugvawhmec B vaccine, pediatric or pediatric/adolescent ykalfaRaimjRpfpky18-75-0818wooanhh, mumps and rubella virus yndnlntTuarcCnclar13-82-3890BY(adult) unspecified formulation JzymqVratzq46-67-0568bfxnloyde poliovirus vaccine, live, oralMetroAshtabula General Hospital 86-77-3802yyggyotnca, tetanus toxoids and pertussis yofarchTacjnVzskce76-49-2003 trivalent poliovirus vaccine, live, pimyMmgqbRdheaq38-46-5393suzlsfjoxbx influenzae type b vaccine, conjugate unspecified formulationTrinity Health System West Campus 10-48-7441wbpfdcc, mumps and rubella virus pdihbhcGrdlfHakylo88-97-5992 diphtheria, tetanus toxoids and pertussis kqopcscWukudTzrnap05-66-0001 diphtheria, tetanus toxoids and pertussis yhulxbzXsrxfWpvvey43-64-9123nndcuwvux poliovirus vaccine, live, csvbSfjsqWiicgm94-25-7328lyysiekheh, tetanus toxoids and pertussis jwfxawbJevlrUwztas56-56-0095cbeorfisz poliovirus vaccine, live, oralMetroHealth Payers DatePayer CategoryPayerPolicy [id number] --Stand AloneDENTAL-MEDICAID [id number] 2019Medicaid [id number] 2008Medicare FFEDICARE [id number] 2007Medicare [id number] 2..1.417676.3.57[id number] 2..1.119061.3.579.2.31952-98-2182Luyxgwo6990728 2..1.737633.3.579.[id number] 2..1.510842.3.57[id number] 2..1.011713.3.579.2.17083-66-1701Zeosxyw855556978 2.0.1.061047.3.579.2.118121-41-1096Zbpsseh036653290 2..1.735492.3.579.[id number] 2.16.840.1.827602.3.579.[id number] 2.16.840.1.281283.3.579.2.183805-56-8748Zuwhlpo789253937 2.16.840.1.981410.3.579.2.870393-77-7974Ltabivy419005904 2.16.840.1.323541.3.579.2.81232-77-1212Tpxiued284113624 2.16840.1.075018.3.579.2.26247-77-0815Xtqmrtz478655093 2.16840.1.483945.3.579.2.12353-99-8062Bkcdosy406707685 2.840.1.268933.3.579.2.04550-44-3181Ngiclkp813971299 2.16840.1.616279.3.579.2.79301-67-0245Anffiaw525117413 2.16840.1.872492.3.579.2.45415-13-0566Qkwgwus311483867 2.16840.1.200061.3.579.2.28467-95-0352Dsbzatf572615072 2.840.1.546704.3.579.2.36090-28-8369Fkzebfa39142166 2.16840.1.661528.3.579.2.207573-90-9401Ejhtkts91165020 2.16840.1.407864.3.579.2.127213-95-3022Rqauejx50349864 2.16840.1.001366.3.579.2.393025-15-1449Geoaxrw40193884 2.16.840.1.803574.3.579.2.355201-58-8522Rvvfjzj8666623 2.16.840.1.137733.3.579.2.483348-33-9947Kvzddty3217549 2.16.840.1.716898.3.579.2.951131-97-8332Ssrgahw8450615 2.16.840.1.205713.3.579.2.711317-04-7287Prmmbeq8041215 2.16.840.1.298690.3.579.2.885017-86-2844Zvfvvwc7780349 2.16.840.1.533392.3.579.2.245671-94-7733Hvhloup4060868 2.16.840.1.650158.3.579.2.140822-64-2615Kbpgrde7879593 2.16.840.1.560886.3.579.2.886219-47-9586Cubolvl455723351 2.16.840.1.842461.3.579.2.109499-97-5460Vjssljt269072555 2.16.840.1.822586.3.579.2.1286 [id number] 1960Medicare [id number] Social History DateTypeDetailFacilityStart: 06-13-2020 End: 16-68-3271Jhtoozh smoking status NHISNever smoked tobaccoMetroHealth Work Phone: Start: 06-13-2020 End: 53-42-9755Gebgwmo use and exposureSmokeless tobacco non-userMetroHealth Start: 07-15-2020 End: 42-90-1127Llodbas intakeLifetime non-drinker (finding)[facility]HealthStart: 64-45-8647Aprhrqm SDOH Alcohol Qxvvlqrvo5RgifxUwlunvGeccw: 99-10-6710Ynt Assigned At BirthNot on fileMetroAshtabula General HospitalTobacco smoking statusNo Smoking Status EnteredNorwalk Memorial Hospitaltart: 07-15-2020 End: 34-90-6080Jfa Assigned At [facility] HospitalFeAvita Health System Ontario Hospitaltart: 72-85-9676Ppj Assigned At [facility]tart: 69-02-5661Mxhdnee smoking status NHISUnknown if ever smokedMarion Hospitaltart: 07-15-2020 End: 53-56-0696Skkfdud of Social functionMetroHealthStart: 01-12-2012 End: 20-47-5656MkkTlwsev (finding)[facility]HealthStart: 02-01-2024 End: 13-52-8609Sitrtfr of drug misuse behaviorHas never misused drugs (situation)MetroHealthNEGATED: Highlighted rowMetrohealth [facility] Goals DatePatient GoalDesired Activity/State Functional Status CzpiXirirtrtvzWjktflHjigyhxb63-33-2147Yblgrwtqbr statusPatient at Baseline [facility] Work Phone: Mental Status XpulBpkoegdsviUeyqdyDlbsivvb28-39-1222Pqqfarxyj functionCognitive Status Patient at BaselineSelect Medical [facility] Work Phone: Clinical Notes 06-10-2022 to 11-20-2024 Note Date & XvxwXuihFfucibsg33-42-4659 Miscellaneous Notes* Telephone Encounter - Luz Marina Nunez LPN - 11/20/2024 12:56 PM EDT [facility] called request last office note to be faxed to [phone]. Office note faxed. documented in this encounterSelect Medical [facility]09-30-2025 Telephone encounter Note* Telephone Encounter - Luz Marina Nunez LPN - 11/20/2024 12:56 PM EDT [facility] called request last office note to be faxed to [phone]. Office note faxed. [employer]09-30-2025 History of Present illness Narrative* EDENILSON Morton [...] form dated (11/20/2024). HPI (08/09/2024) Eve Haque GINNER: Migdalia Connelly is a 39 y.o. female who presents with right breastchanges. History obtained from chart reviewed, additional information provided primarily by the facility staff present with her but patient is able to offer some input as well. Patient was seen by EMBROIDERER on 08/07/24 with complaints of right breast and nipple tenderness/inversion that started on 08/02. This progressed t/o the course of several days to include swelling, firmness, redness and warmth. Clindamycin was initiated on 08/05. BDM, U/S, and breast MRI ordered. She is scheduled for BDM and U/S on 08/28 at [place]. Patient does note some improvement since starting Clindamycin. Career Development Consultant feels redness is improved compared to earlier in the week. Past Medical History Past Medical History: Diagnosis Date Astigmatism Attention deficit disorder with hyperactivity Bipolar 1 disorder (CMS-HCC) Constipation Dissociative disorder GERD (gastroesophageal reflux disease) History of pineal cyst Hormone imbalance Hypercholesterolemia Hyperopia Hypertension Impulse control disorder Moderate intellectual disability Mood disorder OCD (obsessive compulsive disorder) Osteopenia Patellar bursitis, right Pituitary microadenoma ([facility]-HCC) PTSD (post-traumatic stress disorder) Seizure disorder ([facility]) Past Surgical History Past Surgical History: [...] PA-C [facility] EDENILSON Morton 11/20/24 1111 documented in this encounterMercy Health West HospitalQuickfilter Technologies09-24-2025 History of Present illness Narrative* Bhanu Charlton [...] with hyperactivity 05/25/2012 Bipolar disorder ([facility]) 05/04/2023 Essential hypertension 05/04/2023 Seizure disorder ([facility]) 05/04/2023 Pure hypercholesterolemia 05/04/2023 Anger reaction 07/14/2023 Convulsion ([facility]) 07/14/2023 Alteration of consciousness 07/14/2023 Development delay 07/14/2023 Resolved Ambulatory Problems Diagnosis Date Noted No Resolved Ambulatory Problems Past Medical History: Diagnosis Date ADHD (attention deficit hyperactivity disorder) Astigmatism Convulsions ([facility]) Developmental delay GERD (gastroesophageal reflux disease) Hypercholesterolemia Hyperopia Hypertension Impulse control disorder Intellectual disability Mental disorder Mood disorder OCD (obsessive compulsive disorder) Osteopenia PTSD (post-traumatic stress disorder) Seizures ([facility]) Medications: Current Outpatient Medications: acetaminophen (Tylenol) [...] subungual debris. They were painful to palpation 03628 on the right 83977 on the left. VASC: DP /PT were nonpalpable bilateral. Capillary refill time < 3 seconds Digits 1-5 bilateral NEURO: [place] [employer] 5.07 monofilament was intact B/L. Vibratory [...] 1through 10. DAY Laura documented in this encounterCrossroads Regional Medical CenterEkcxiawimh06-45-4697 Hospital Discharge instructions* Discharge Instructions* Yady Lewis RN - 10/08/2024 9:34 AM EDT Basic Extraction Instructions - [employer] - Department of Dentistry Biting on [...] was done to speak with a dentist. [facility] [phone]; [facility] [phone];and [place] [phone]. On the weekends or evenings you can contact the Dental Resident universal branch consultant at [phone] and ask the ram car operator to page the Dental Resident. HELPING [...] you may contact your physician by calling [phone] and asking for the resident universal branch consultant for DENTAL service. Special Care Needs: Activity: [...] very uncomfortable and can t urinate, call [phone] or come to the emergency room. A [...] going instructions. Rev. 09/26 documented in this [id number] Surgery Postoperative evaluation and management note* Brief Operative Note - Risa Black DDS - 10/08/2024 8:06 AM EDT Brief Operative Note [facility] OR 3 Migdalia Connelly 39 year old female Surgical Contact Serial Number: [id number] Preoperative Diagnosis: Pre-op Diagnosis * Caries [K02.9] [...] Posttraumatic stress disorder Procedures: Full mouth xrays [01658] Comprehensive exam [27807] Prophy [53040] Fluoride application [19515] Restorative [99067] Surgical extractions [79500] Surgeon(s): Surgeon(s): Og Grant DDS Staff: Surveyor Geodetic Nurse: Rosanna Monroe RN Dental Resident: Risa Black DDS Anesthesia: General Anesthesiologist: Kedar Moralez MD Tombstone Erector Helper: Randi Rico MD; Enio Wells MD Specimen(s): [...] Grant DDS at 10/08/2024 9:49 AM EDT OlzbkAnqkpb54-90-4721 Surgery Surgical operation note* OP Note - Risa Black DDS - 10/08/2024 8:06 AM EDT Operative Note [facility] OR 3 Migdalia Connelly 39 year old female Surgical Contact Serial Number: [id number] Preoperative Diagnosis: Pre-op Diagnosis * Caries [K02.9] [...] Posttraumatic stress disorder Procedures: Full mouth xrays [42801] Comprehensive exam [70472] Prophy [80569] Fluoride application [69977] Restorative [47587] Surgical extractions [69825] Surgeon(s): Surgeon(s): Og Grant DDS Staff: Surveyor Geodetic Nurse: Rosanna Monroe RN Dental Resident: Risa [...] Grant DDS at 10/08/2024 9:50 AM EDT QbtdnGmuelm94-39-8486 Miscellaneous Notes* Brief Operative Note - Risa Black DDS - 10/08/2024 8:06 AM EDT Brief Operative Note [facility] OR 3 Migdalia Connelly 39 year old female Surgical Contact Serial Number: [id number] Preoperative Diagnosis: Pre-op Diagnosis * Caries [K02.9] [...] Posttraumatic stress disorder Procedures: Full mouth xrays [94991] Comprehensive exam [93718] Prophy [78341] Fluoride application [63667] Restorative [31281] Surgical extractions [85290] Surgeon(s): Surgeon(s): Og Grant DDS Staff: Surveyor Geodetic Nurse: Rosanna Monroe RN Dental Resident: Risa Black DDS Anesthesia: General Anesthesiologist: Kedar Moralez MD Tombstone Erector Helper: Randi Rico MD; Enio Wells MD Specimen(s): [...] year old female Surgical Contact Serial Number: [id number] Preoperative Diagnosis: Pre-op Diagnosis * Caries [K02.9] [...] Posttraumatic stress disorder Procedures: Full mouth xrays [66496] Comprehensive exam [05786] Prophy [34787] Fluoride application [00270] Restorative [21985] Surgical extractions [37103] Surgeon(s): Surgeon(s): Og Grant DDS Staff: Surveyor Geodetic Nurse: Rosanna Monroe RN Dental Resident: Risa [...] 10/08/2024 9:50 AM EDT documented in this myqrcmrikLxkhsNubdxn15-83-9464 History of Present illness Narrative* Og Grant [...] Note Type: OP Note Status: Cosign Needed Weigher Bulker: Risa Black DDS (Resident) Cosign Required: Yes Operative Note [facility] OR 3 Migdalia Connelly 39 year old female Surgical Contact Serial Number: [id number] Preoperative Diagnosis: Pre-op Diagnosis * Caries [K02.9] [...] Posttraumatic stress disorder Procedures: Full mouth xrays [23112] Comprehensive exam [59981] Prophy [34772] Fluoride application [13172] Restorative [58177] Surgical extractions [31437] Surgeon(s): Surgeon(s): Og Grant DDS Staff: Surveyor Geodetic Nurse: Rosanna Monroe RN Dental Resident: Risa [...] 2024 at 9:50:51 AM ----- ----- Provider: [id number] Ed Obrien DDS -- Clinic: [facility] ----- documented in this s[id number] Telephone encounter Note* Telephone Encounter - Megha Sanchez RN - 10/03/2024 10:[address] Chatman made aware that CBC and CMP from 05/03/24 [facility] Addendum: Dr. Chatman states that he has reviewed labs and results are acceptable on 10/04 via secureSpaceILt. RxptdQorqfy44-75-2341 Miscellaneous Notes* Telephone Encounter - Megha Sanchez RN - 10/03/2024 10:[address] Chatman made aware that CBC and CMP from 05/03/24 received from [facility] and [facility] [employer]. documented in this [id number] Miscellaneous Notes* Telephone Encounter - Megha Sanchez RN - 10/03/2024 10:[address] Chatman made aware that CBC and CMP from 05/03/24 [facility]. Addendum: Dr. Chatman states that he has reviewed labs and results are acceptable on 10/04 via securechat. documented in this [id number] History of Present illness Narrative* Bhanu Charlton, [...] < 3 seconds Digits 1-5 bilateral NEURO: [place] [employer] 5.07 monofilament was intact B/L. Vibratory [...] Bhanu Charlton DPM FACFAS documented in this encounterCrossroads Regional Medical [id number] NoteAnesthesia consent obtained by Dr. Velez for 10/08 dental procedure and scanned into [facility]08-08-2025 Telephone encounter Note* Telephone Encounter - Megha Sanchez RN - 09/28/2024 3:42 PM EDT Anesthesia consent obtained by Dr. Velez for 10/08 dental procedure and scanned into [facility]. [id number] Miscellaneous Notes* Telephone Encounter - Megha Sanchez RN - 09/28/2024 3:42 PM EDT Anesthesia consent obtained by Dr. Velez for 10/08 dental procedure and scanned into [facility]. 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: h/o Seizures on AEDs Microadenoma in Pituitary [...] pending : at baseline Glenn Chatman MD [phone] [1] Allergies Allergen Reactions Abilify Amoxicillin Depakote [Valproic Acid] Per OSH H+P 08/2018 Food Peterson Slaw Metyrosine Moban [Molindone] Nubain [Nalbuphine] Sympathomimetics Vicks 44 Cough Relief [Dextromethorphan Hbr] [2] Past Medical History: Diagnosis Date Attention deficit hyperactivity disorder (ADHD) 05/25/2012 Attention deficit disorder with hyperactivity Caries 09/05/2018 Added automatically from request for surgery [id number] Constipation Per OSH H+P 08/2018 Dental decay 08/26/2016 Added automatically from request for surgery [id number] Developmental delay Per OSH H+P 08/2018 Hormone [...] Grant DDS; Location: [facility] Surgery [place]; Service: Dental DENTAL RESTORATIONS Bilateral 07/14/2020 Procedure: DENTAL RESTORATIONS; Surgeon: Og Grant DDS; Location: [facility] Surgery [place]; Service: Dental [4] Social History Tobacco Use Smoking Status Never Smokeless Tobacco Never documented in this [id number] History of Present illness Narrative* Linn Red [...] disorder) Osteopenia Patellar bursitis, right Pituitary microadenoma ([facility]-HCC) PTSD (post-traumatic stress disorder) Seizure disorder ([facility]) SURGICAL HX Past Surgical History: Procedure Laterality [...] mammogram and ultrasound results with patient and home care liaison. Discussed how the patient has been feeling since she finished her antibiotics. Discussed the patients skin picking could bethe source of infection. Advised to keep appointment with breast clinic. Recommend yearly mammograms. FOREST CLEMENTE 09/04/24 1046 LINN RED MD documented in this encounterMercy Health West HospitalAirSense Wireless [facility] [id number] History of Present illness Narrative* Bhanu Charlton [...] with hyperactivity 05/25/2012 Bipolar disorder ([facility]) 05/04/2023 Essential hypertension 05/04/2023 Seizure disorder ([facility]) 05/04/2023 Pure hypercholesterolemia 05/04/2023 Anger reaction 07/14/2023 Convulsion ([facility]) 07/14/2023 Alteration of consciousness 07/14/2023 Development delay 07/14/2023 Resolved Ambulatory Problems Diagnosis Date Noted No Resolved Ambulatory Problems Past Medical History: Diagnosis Date ADHD (attention deficit hyperactivity disorder) Astigmatism Convulsions ([facility]) Developmental delay GERD (gastroesophageal reflux disease) Hypercholesterolemia Hyperopia Hypertension Impulse control disorder Intellectual disability Mental disorder Mood disorder OCD (obsessive compulsive disorder) Osteopenia PTSD (post-traumatic stress disorder) Seizures ([facility]) Medications: Current Outpatient Medications: acetaminophen (Tylenol) [...] < 3 seconds Digits 1-5 bilateral NEURO: [place] Ami 5.07 monofilament was intact B/L. Vibratory [...] up 1month DAY Laura documented in this encounterCrossroads Regional Medical [id number] History of Present illness Narrative* Eve Haque, PULP PRESS TENDER-GINNER - 08/09/2024 9:30 AM EDT Images from [...] input as well. Patient was seen by EMBROIDERER on 08/07/24 with complaints of right breast and nipple tenderness/inversion that started on 08/02. This progressed t/o the course of several days to include swelling, firmness, redness and warmth. Clindamycin was initiated on 08/05. BDM, U/S, and breast MRI ordered. She is scheduled for BDM and U/S on 08/28 at [place]. Patient does note some improvement since starting Clindamycin. Career Development Consultant feels redness is improved compared to earlier [...] medications, and allergies have been reviewed in [facility]. PAST MEDICAL HISTORY: Past Medical History: [...] care provider present. Spoke with staff at [facility] - patient will be worked in today for BD and U/S. Will await results to determine next steps, as appropriate. Continue antibiotic course as advised. Follow up pending results of testing. The patient understands and agrees with the plan as discussed. All questions answered. Eve Haque CNP [facility] Total time spent was 39 minutes: Preparing to see the patient (e.g., review of tests) Obtaining and/or reviewing separately obtained history Performing a medically appropriate examination and/or evaluation Counseling and educating the patient/family/caregiver Ordering medications, tests, or procedures Referring and communicating with other health care connector (not separately reported) Documenting clinical information in the electronic or other health record Independently interpreting results (not separately reported) and communicating results to the patient/family/caregiver YESIKA Armstrong 08/09/24 1711 documented in this encounterSelect Medical Specialty [facility]06-17-2025 History of Present illness Narrative* Linn Red MD - 08/07/2024 2:30 PM EDT Migdalia Connelly is a 39 y.o.female. No LMP recorded.. She presents with breast tenderness. According to report that was brought with pt: On 08/02/24 Mgidalia began to complain that her right nipple [...] mammogram. Discussed follow up care with patients home care liaison who believes she will tolerate a mammogram, she states if CT is needed she may need some sedation. Mammogram, ultrasound, MRI, and breast specialist requisition provided. FU 4-6WKS MD DAMON MILLER, [facility] Aundrea Leis 08/07/24 1447 Aundrea Leis 08/07/24 1458 documented in this encounterSelect Medical Specialty [facility]06-17-2025 History of Present illness Narrative* Bhanu Charlton [...] Essential hypertension 05/04/2023 Seizure disorder ([facility]) 05/04/2023 Pure hypercholesterolemia 05/04/2023 Anger reaction 07/14/2023 Convulsion ([facility]) 07/14/2023 Alteration of consciousness 07/14/2023 Development delay 07/14/2023 Resolved Ambulatory Problems Diagnosis Date Noted No Resolved Ambulatory Problems Past Medical History: Diagnosis Date ADHD (attention deficit hyperactivity disorder) Astigmatism Convulsions ([facility]) Developmental delay GERD (gastroesophageal reflux disease) [...] subungual debris. They were painful to palpation 89974 on the right 88735 on the left. VASC: DP /PT were nonpalpable bilateral. Capillary refill time < 3 seconds Digits 1-5 bilateral NEURO: [place] Ami 5.07 monofilament was intact B/L. Vibratory [...] modifications she will be going to an damage prevention coordinator to have new shoes purchase follow up 2 weeks for reexamine. DAY Laura documented in this encounterCrossroads Regional Medical [id number] History of Present illness Narrative* DAY Laura [...] Date Noted Attention deficit disorder with hyperactivity ([facility]) 05/25/2012 Bipolar disorder 05/04/2023 Essential hypertension ([facility]) 05/04/2023 Seizure disorder ([facility]) 05/04/2023 Pure hypercholesterolemia ([facility]) 05/04/2023 Anger reaction 07/14/2023 Convulsion ([facility]) 07/14/2023 Alteration of consciousness 07/14/2023 Development delay 07/14/2023 Resolved Ambulatory Problems Diagnosis Date Noted No Resolved Ambulatory Problems Past Medical History: Diagnosis Date ADHD (attention deficit hyperactivity disorder) ([facility]) Astigmatism Convulsions ([facility]) Developmental delay GERD (gastroesophageal reflux disease) Hypercholesterolemia ([facility]) Hyperopia Hypertension ([facility] Impulse control disorder ([facility] Intellectual disability ([facility]) Mental disorder Mood disorder ([facility]) OCD (obsessive compulsive disorder) ([facility]) Osteopenia PTSD (post-traumatic stress disorder) ([facility]) Seizures ([facility]) Medications: Current Outpatient Medications: acetaminophen (Tylenol) [...] up p.r.n. DAY Laura documented in this encounterCrossroads Regional Medical [id number] History of Present illness Narrative* DAY Laura [...] Date Noted Attention deficit disorder with hyperactivity ([facility]HCC) 05/25/2012 Bipolar disorder 05/04/2023 Essential hypertension ([facility]) 05/04/2023 Seizure disorder ([facility]) 05/04/2023 Pure hypercholesterolemia ([facility]) 05/04/2023 Anger reaction 07/14/2023 Convulsion ([facility]) 07/14/2023 Alteration of consciousness 07/14/2023 Development delay 07/14/2023 Resolved Ambulatory Problems Diagnosis Date Noted No Resolved Ambulatory Problems Past Medical History: Diagnosis Date ADHD (attention deficit hyperactivity disorder) ([facility]) Astigmatism Convulsions ([facility]) Developmental delay GERD (gastroesophageal reflux disease) Hypercholesterolemia ([facility]) Hyperopia Hypertension ([facility] Impulse control disorder ([facility]) Intellectual disability ([facility]) Mental disorder Mood disorder ([facility]) OCD (obsessive compulsive disorder) ([facility]) Osteopenia PTSD (post-traumatic stress disorder) ([facility]) Seizures ([facility]) Medications: Current Outpatient Medications: acetaminophen (Tylenol) [...] < 3 seconds Digits 1-5 bilateral NEURO: [place] Ami 5.07 monofilament was intact B/L. Vibratory [...] Bhanu Charlton DPM FACBART documented in this encounterCrossroads Regional Medical [id number] History of Present illness Narrative* Zaid Joshua [...] nursing note reviewed. Exam conducted with a industrial renderer present. Constitutional: General: She is not in [...] TARIK Leblanc 06/13/24 1415 documented in this encounterSelect Medical Specialty [facility]04-14-2025 History of Present illness Narrative* EDENILSON Rush - 06/04/2024 10:40 AM EDT Images from the original note were not included. Chief Complaint Patient presents with Seizures Subjective Migdalia Connelly, 38 y.o., female SEIZURE -resident at [place], here today with house aide -labs to [...] Diagnosis Date ADHD (attention deficit hyperactivity disorder) ([facility]/HCC) Alteration of consciousness Anger reaction Astigmatism Bipolar disorder Convulsions (CMS/HCC) Developmental delay GERD (gastroesophageal reflux disease) Hypercholesterolemia (CMS/HCC) Hyperopia Hypertension (CMS/HCC) Impulse control disorder ([facility]/HCC) Intellectual disability ([facility]/HCC) Mental disorder Mental retardation, mild Mood disorder (CMS/HCC) OCD (obsessive compulsive disorder) ([facility]) Osteopenia PTSD (post-traumatic stress disorder) ([facility]) Seizures ([facility]) No past surgical history on file. [...] , wrist extensors , wrist flexor , production engineer strength 5/5. LUE Strength deltoid , biceps , triceps , wrist extensors , wrist flexor , production engineer strength 5/5. RLE Strength illopsoas, quadriceps, tibialis [...] 134 (L). LFTs (WNL) Routine EEG at [facility] in March 2018: Normal MRI of the brain w and w/o contrast at [facility] on 10/18/13 and 06/30/16: Stable right adenohypophyseal [...] plan, and return instructions documented in this encounterCrossroads Regional Medical [id number] History of Present illness Narrative* Damien Jones [...] (CMS/HCC) Impulse control disorder (CMS/HCC) Intellectual disability ([facility]) Mental disorder Mental retardation, mild Mood disorder ([facility]/HCC) OCD (obsessive compulsive disorder) ([facility] Osteopenia PTSD (post-traumatic stress disorder) ([facility]) Seizures ([facility]) History reviewed. No pertinent surgical history. [...] , wrist extensors , wrist flexor , production engineer strength 5/5. LUE Strength deltoid , biceps , triceps , wrist extensors , wrist flexor , production engineer strength 5/5. RLE Strength illopsoas, quadriceps, tibialis [...] LLE knee reflex 1+. Negative Brian's Coordination: Fckhbg-ui-rvcy testing is normal Gait: Normal Review and [...] 134 (L). LFTs (WNL) Routine EEG at [facility] in March 2018: Normal MRI of the brain w and w/o contrast at [facility] on 10/18/13 and 06/30/16: Stable right adenohypophyseal [...] plan, and return instructions documented in this encounterCrossroads Regional Medical [id number] History of Present illness Narrative* Bhanu Charlton [...] Diagnosis Date ADHD (attention deficit hyperactivity disorder) ([facility]) Alteration of consciousness Anger reaction Astigmatism Bipolar disorder ([facility]/HCC) Convulsions ([facility]/HCC) Developmental delay GERD (gastroesophageal reflux disease) Hypercholesterolemia (CMS/HCC) Hyperopia Hypertension ([facility]/HCC) Impulse control disorder ([facility]/HCC) Intellectual disability ([facility]/HCC) Mental disorder Mental retardation, mild Mood disorder ([facility]/HCC) OCD (obsessive compulsive disorder) ([facility]/HCC) Osteopenia PTSD (post-traumatic stress disorder) ([facility]/HCC) Seizures ([facility]) Medications: Current Outpatient Medications: acetaminophen (Tylenol) [...] subungual debris. They were painful to palpation 53212 on the right 59555 on the left. VASC: DP /PT were nonpalpable bilateral. Capillary refill time < 3 seconds Digits 1-5 bilateral NEURO: [place] Ami 5.07 monofilament was intact B/L. Vibratory [...] 1through 10. DAY Laura documented in this encounterCrossroads Regional Medical [id number] NotePatient recovered by anesthesia in procedure room.[facility] [id number] History of Present illness Narrative* Sabra Frias DMD - 02/23/2024 9:37 AM EST ----- Thursday, February 23, 2024 at 10:34:06 AM ----- ----- Provider: Shelby Frias DMD -- Clinic: [facility] ----- PT. WAS SEEN IN [facility] UNDER TWILIGHT SEDATION WITH ANESTHESIA TEAM. Anesthesia diagnosis: Unspecified mental disorder- F09 and Other intellectual disabilities- F78 Dental diagnosis: Dental Caries, unspecified - K02.9 COMPOSITE ROMAN CATHOLIC Patient is scheduled for Mu-Ism on tooth #23 MFL and 24 DFL. Reviewed Medical History. Patient is ready for treatment. Topical Benzocaine gel applied at the injection site for 2 minutes. Administered 2 carpules of Lidocaine, 2% with Epinephrine 1:100,000,. Cotton roll isolation achieved. Decay/existing gnosticism removed, cavity prepared. Selectively etched enamel with 37% phosphoric acid, rinsed, and blot dried. OptiBond bowles applied and light-cured. Condensed packable composite shade A2 in light cured increments using Mylar strip and wedge. Finished with finishing burs, checked occlusion, verified proximal contacts and gnosticism was polished. Rinsed and suctioned intraorally, advised [...] ----- Provider: Shelby Frias DMD -- Clinic: [facility] ----- documented in this [id number] Telephone encounter Note* Telephone Encounter - Megha Sanchez RN - 02/14/2024 10:24 AM EST Anesthesia consent obtained by Dr. Koch and scanned into [employer]. [id number] Miscellaneous Notes* Telephone Encounter - Megha Sanchez RN - 02/14/2024 10:24 AM EST Anesthesia consent obtained by Dr. Koch and scanned into [employer]. documented in this [id number] Instructions* Discharge Instructions* Penny Denton RN - 02/01/2024 9:44 AM EST You are you have surgery with Dr. Frias on 02/22/2023 at [facility] which is located at [address] [place] [address] PATIENT MEDICATION INSTRUCTIONS: On the morning of [...] unless otherwise contacted. Expect a call from [employer] one business day prior to surgery for [...] your Preparing for Your Surgery/Procedure booklet or [facility] [email or web address] if you have questions. Contact the Pre-Admission Testing department at [phone] or your surgeon's officewith any questions that [...] stay with you after surgery. Please call [employer] if you need transportation assistance or have concerns about going home [phone]. PEDIATRIC or ADOLESCENTS: Parents or a legal [...] signs of dehydration. Thank you for choosing [facility]; it is our pleasure to care for you. documented in this [id number] Evaluation note* PAT Call History - Penny Denton RN - 02/01/2024 9:20 AM EST Images from the original note were not included. Telephone History Migdalia Connelly, [id number] 02/01/2024 Patient was identified by name and date of with Nurse Latasha from [place]. Needs: Physical, Neck Circumference, Glasses, BHCG, Intellectual Disability, Anxiety and Seizure Precautions on DOS. Ifthe patient becomes ill prior to procedure or surgery, they are to call their provider or surgeon'soffice directly. 02/01/2024 - communicated with patient will need urine test the morning of the procedure 02/01/2024-Spoke with Dr. Florez (Anesthesia) in regards to anxiety with last procedure - indicates that [place] can give her 5 mg Valium at least 1 hour prior to arriving (Nurse at [place] - Latasha-aware) 02/01/2024-[place] to provide most recent labs (fax number given) 02/14/2024-LG consent obtained - see interactive media director 38 year old 190.6 lbs 5' 5 [...] 09/05/2018 Added automatically from request for surgery [id number] Constipation Per OSH H+P 08/2018 Dental decay 08/26/2016 Added automatically from request for surgery [id number] Developmental delay Per OSH H+P 08/2018 Hormone [...] Decay, Dental Caries, Peridontitis, Endo (+) obesity flumer (+) irregular periods Neuro/Psych (+) bipolar disorder, [...] DENTAL RESTORATIONS; Surgeon: Og Grant DDS; Location: [facility]; Service: Dental DENTAL RESTORATIONS Bilateral 07/14/2020 Procedure: DENTAL RESTORATIONS; Surgeon: Og Grant DDS; Location: [facility]; Service: Dental SOCIAL HISTORY: Social History Socioeconomic History Marital status: Single Tobacco Use Smoking status: Never Smokeless tobacco: Never Substance and Sexual Activity Alcohol use: Never Drug use: Never PAIN ASSESSMENT: Severity: 0 Location: N/A LABORATORY DATA: [facility] 10/24/2023 LABS TESTS REVIEWED: CXRay: No [...] unless otherwise contacted. [facility] business [facility] prior to surgery for [...] your Preparing for Your Surgery/Procedure booklet or [facility] CenterReveal[facility] [email or web address] if you have questions. Contact the Pre-Admission Testing department at [phone] or your surgeon's officewith any questions that [...] stay with you after surgery. Please call [employer] if you need transportation assistance or have concerns about going home [phone]. PEDIATRIC or ADOLESCENTS: Parents or a legal [...] signs of dehydration. Thank you for choosing [facility]; it is our pleasure to care for you. Penny Denton RN Time Spent Performing this Telephone History: 30 [id number] Miscellaneous Notes* PAT Call History - Penny Denton RN - 02/01/2024 9:20 AM EST Images from the original note were not included. Telephone History Migdalia Cueva Stephie, [id number] 02/01/2024 Patient was identified by name and date of with Nurse Anaya from [place]. Needs: Physical, Neck Circumference, Glasses, BHCG, Intellectual Disability, Anxiety and Seizure Precautions on DOS. Ifthe patient becomes ill prior to procedure or surgery, they are to call their provider or surgeon'soffice directly. 02/01/2024 - communicated with patient will need urine test the morning of the procedure 02/01/2024-Spoke with Dr. Florez (Anesthesia) in regards to anxiety with last procedure - indicates that [facility] can give her 5 mg Valium at least 1 hour prior to arriving (Nurse at [place] - Latasha-aware) 02/01/2024-[place] to provide most recent labs (fax number given) 02/14/2024-LG consent obtained - see interactive media director 38 year old 190.6 lbs 5' 5 [...] 09/05/2018 Added automatically from request for surgery [id number] Constipation Per OSH H+P 08/2018 Dental decay 08/26/2016 Added automatically from request for surgery [id number] Developmental delay Per OSH H+P 08/2018 Hormone [...] Decay, Dental Caries, Peridontitis, Endo (+) obesity flumer (+) irregular periods Neuro/Psych (+) bipolar disorder, [...] Valdovinos DDS; Location: [facility] Surgery [place]; Service: Dental DENTAL RESTORATIONS N/A 09/15/2018 Procedure: DENTAL RESTORATIONS; Surgeon: Og Grant DDS; Location: [facility]; Service: Dental DENTAL RESTORATIONS Bilateral 07/14/2020 Procedure: DENTAL RESTORATIONS; Surgeon: Og Grant DDS; Location: [facility]; Service: Dental SOCIAL HISTORY: Social History Socioeconomic History Marital status: Single Tobacco Use Smoking status: Never Smokeless tobacco: Never Substance and Sexual Activity Alcohol use: Never Drug use: Never PAIN ASSESSMENT: Severity: 0 Location: N/A LABORATORY DATA: [facility] 10/24/2023 LABS TESTS REVIEWED: CXRay: No [...] unless otherwise contacted. Expect a call from [employer] one business day prior to surgery for [...] your Preparing for Your Surgery/Procedure booklet or [email or web address] if you have questions. Contact the Pre-Admission Testing department at [phone] or your surgeon's officewith any questions that [...] stay with you after surgery. Please call [employer] if you need transportation assistance or have concerns about going home [phone]. PEDIATRIC or ADOLESCENTS: Parents or a legal [...] signs of dehydration. Thank you for choosing [facility]; it is our pleasure to care for you. Penny Denton RN Time Spent Performing this Telephone History: 30 documented in this [id number] Note* Addendum Note - Orquidea Florez MD - 12/15/2023 11:34 AM EDT Addendum created 12/15/231133 by Orquidea Florez MD Clinical Note Signed [id number] Miscellaneous Notes* Addendum Note - Orquidea Florez [...] 12/15/2023 9:24 AM EDT Patient recovered by ACTUARIAL CONSULTANT in room. Patient is awake, comfortable, and [...] Valdovinos DDS; Location: [facility] [place]; Service: Dental CHOLECYSTECTOMY (2009) Per OSH H+P 08/2018 DENTAL RESTORATIONS (09/15/2018) Procedure: DENTAL RESTORATIONS; Surgeon: Og Grant DDS; Location: [facility] [place]; Service: Dental DENTAL RESTORATIONS (07/14/2020) Procedure: DENTAL RESTORATIONS; Surgeon: Og Grant DDS; Location: [facility] [place]; Service: Dental Allergies: Abilify, Amoxicillin, Depakote [valproic acid], Food, Metyrosine, Moban [molindone], Nubain [nalbuphine], Sympathomimetics, and Vicks 44 cough relief [dextromethorphan hbr] Basic Operating Room Facts: * No surgeons listed * Anesthesiologist: Orquidea Florez MD ACTUARIAL CONSULTANT: Domingo Carrion APRN-CRNA DENTAL VISIT Intraoperative Events: [...] was received. MAXIMO Soliz documented in this [id number] Procedure anesthesia Narrative * Procedure NameResponsible AnesthesiologistAnesthesia Start TimeAnesthesia Stop TimeDENTAL VISITOrquidea Florez MD12/15/23 78525612/15/23 0925DateTime SfvkxBnjguqt27/24/954208933228Ch Start Scis3661Ny Zqosy4732Hkewocbizdwa Verify The anesthesia team has reviewed the patient's vital signs immediately prior to induction. MAXIMO Soliz0833Procedure TimeoutConfirm the correct patient identity: Yes Confirm the correct procedure: Yes Confirm the correct procedural site: Yes Confirm signed informed consent: Yes Confirm prophylactic antibiotic administration (if applicable): N/A Discuss fire risk mitigation (if applicable): Yes Anesthesia Staff MAXIMO Soliz Proceduralist Altagracia Additional Staff 0834An Udmgocebj8729Iefakgisqu Ihaahnd2493sy stop [id number] completed my SBAR handoff to the receiving nurse in the receiving unit.09AN Stop* NameTotalglycopyrrolate (ROBINUL) injection 0.2 mg/mL0.1 mgMidazolam 1 mg/mL5 mgDexmedetomidine injection 100 mcg/mL56 mcg Ketorolac 30 mg/mL15 mgLactated Udjujzw24 mL * Agents Name N2O O2 Flow Rate (l/min) * Blood No blood administrations on file. TypeDetailsPlacementRemovalSurgical Wound06/09 0000 by Carola Hansen RNSurgical Wound09/15/18; 1148; Incision; N/A; Mouth09/15/18 1148 by Mayte Poole RNWound07/14/20; 1023; Bilateral; Other (Comment); Surgical - Gkwbzfnk37/24/21 1023 by Felix Oro RNAirway Dkamose29/24/24; 0833; Nasal Cannula; 12/15/23; 0833 by Domingo Carrion APRN-CRNA12/15/23 0920 by Domingo Carrion APRN-CRNAdocumented in this encounter [id number] Note* Addendum Note - Domingo Carrion APRN-CRNA - 12/15/2023 10:26 AM EDT Addendum created 12/15/23 1026 by Domingo Carrion APRN-CRNA Flowsheet accepted, LDA properties accepted [facility] Work Phone: 1(576) 694-176210-24-2024 Note* Addendum Note - Domingo Carrion APRN- CRNA - 12/15/2023 10:26 AM EDT Addendum created 12/15/23 1026 by Domingo Carrion APRN-CRNA Flowsheet accepted, LDA properties accepted [facility] Work Phone: 1(185) 610-387610-24-2024 Miscellaneous Notes* Addendum Note - Domingo Carrion APRN-CRNA - 12/15/2023 10:26 AM EDT Addendum created 12/15/23 1026 by Domingo Carrion APRN-CRNA Flowsheet accepted, LDA properties accepted * Anesthesia Transfer Of Care - Domingo Carrion APRN-CRNA - 12/15/2023 9:24 AM EDT Patient recovered by ACTUARIAL CONSULTANT in room. Patient is awake, comfortable, and [...] Valdovinos DDS; Location: [facility] [place]; Service: Dental CHOLECYSTECTOMY (2009) Per OSH H+P 08/2018 DENTAL RESTORATIONS (09/15/2018) Procedure: DENTAL RESTORATIONS; Surgeon: Og Grant DDS; Location: [facility] [place]; Service: Dental DENTAL RESTORATIONS (07/14/2020) Procedure: DENTAL RESTORATIONS; Surgeon: Og Grant DDS; Location: [facility]; Service: Dental Allergies: Abilify, Amoxicillin, Depakote [valproic acid], Food, Metyrosine, Moban [molindone], Nubain [nalbuphine], Sympathomimetics, and Vicks 44 cough relief [dextromethorphan hbr] Basic Operating Room Facts: * No surgeons listed * Anesthesiologist: Orquidea Florez MD ACTUARIAL CONSULTANT: Domingo Carrion APRN-RAVINDRA DENTAL VISIT Intraoperative Events: [...] was received. MAXIMO Soliz documented in this [id number] Anesthesiology Postoperative evaluation and management note* Anesthesia [...] ANESTHESIA NOTABLE EVENTS: No notable events documented. [facility] Work Phone: 1(268) 948-871410-24-2024 Surgical operation note* Anesthesia Postprocedure Evaluation - [...] apnea Dental ROS (+) teeth problems Endo flumer (-) not (negative in clinic today) Neuro/Psych [...] were discussed with the patient and/or legal ict sales representative. The risks, benefitsand alternatives were reviewed. Questions regarding anesthesia were answered. Patient and/or legal ict sales representative knows such anesthetics and procedures may be performed by Resident physicians, Certified Anesthesiologist Assistants, or Certified Nurse Anesthetists under the supervision of a physician. The patient /or the patient s legal ict sales representative agree with the plan for anesthesia. MHPATFORM documented in this [id number] Surgical operation note* Anesthesia Postprocedure Evaluation - [...] apnea Dental ROS (+) teeth problems Endo flumer (-) not (negative in clinic today) Neuro/Psych [...] were discussed with the patient and/or legal ict sales representative. The risks, benefitsand alternatives were reviewed. Questions regarding anesthesia were answered. Patient and/or legal ict sales representative knows such anesthetics and procedures may be performed by Resident physicians, Certified Anesthesiologist Assistants, or Certified Nurse Anesthetists under the supervision of a physician. The patient /or the patient s legal ict sales representative agree with the plan for anesthesia. MHPATFORM documented in this [id number] Surgical operation note* Anesthesia Postprocedure Evaluation - [...] apnea Dental ROS (+) teeth problems Endo flumer (-) not (negative in clinic today) Neuro/Psych [...] were discussed with the patient and/or legal ict sales representative. The risks, benefitsand alternatives were reviewed. Questions regarding anesthesia were answered. Patient and/or legal ict sales representative knows such anesthetics and procedures may be performed by Resident physicians, Certified Anesthesiologist Assistants, or Certified Nurse Anesthetists under the supervision of a physician. The patient /or the patient s legal ict sales representative agree with the plan for anesthesia. [employer]FORM documented in this [id number] Anesthesiology Postoperative evaluation and management note* Anesthesia Transfer Of Care - Domingo Carrion APRN- RAVINDRA - 12/15/2023 9:24 AM EDT Patient recovered by ACTUARIAL CONSULTANT in room. Patient is awake, comfortable, and [...] Valdovinos DDS; Location: [facility] [place]; Service: Dental CHOLECYSTECTOMY (2009) Per OSH H+P 08/2018 DENTAL RESTORATIONS (09/15/2018) Procedure: DENTAL RESTORATIONS; Surgeon: Og Grant DDS; Location: [facility] [place]; Service: Dental DENTAL RESTORATIONS (07/14/2020) Procedure: DENTAL RESTORATIONS; Surgeon: Og Grant DDS; Location: [facility] [place]; Service: Dental Allergies: Abilify, Amoxicillin, Depakote [valproic acid], Food, Metyrosine, Moban [molindone], Nubain [nalbuphine], Sympathomimetics, and Vicks 44 cough relief [dextromethorphan hbr] Basic Operating Room Facts: * No surgeons listed * Anesthesiologist: Orquidea Florez MD ACTUARIAL CONSULTANT: Domingo Carrion APRN-ACTUARIAL CONSULTANT DENTAL VISIT Intraoperative Events: No acute event [...] of the report was received. MAXIMO Soliz [employer] Work Phone: 1(456) 615-721510-24-2024 Miscellaneous Notes* Anesthesia Transfer Of Care - Domingo Carrion APRN-CRNA - 12/15/2023 9:24 AM EDT Patient recovered by ACTUARIAL CONSULTANT in room. Patient is awake, comfortable, and [...] Valdovinos DDS; Location: [facility] [place]; Service: Dental CHOLECYSTECTOMY (2009) Per OSH H+P 08/2018 DENTAL RESTORATIONS (09/15/2018) Procedure: DENTAL RESTORATIONS; Surgeon: Og Grant DDS; Location: [facility] [place]; Service: Dental DENTAL RESTORATIONS (07/14/2020) Procedure: DENTAL RESTORATIONS; Surgeon: Og Grant DDS; Location: [facility]; Service: Dental Allergies: Abilify, Amoxicillin, Depakote [valproic acid], Food, Metyrosine, Moban [molindone], Nubain [nalbuphine], Sympathomimetics, and Vicks 44 cough relief [dextromethorphan hbr] Basic Operating Room Facts: * No surgeons listed * Anesthesiologist: Orquidea Florez MD ACTUARIAL CONSULTANT: Domingo Carrion APRN-RAVINDRA DENTAL VISIT Intraoperative Events: [...] was received. MAXIMO Soliz documented in this [id number] History of Present illness Narrative* Marleni Alejandro DDS - 12/15/2023 8:53 AM EDT ----- November at 9:52:24 AM ----- ----- Provider: Resident Eric -- Clinic: [place] ----- PT WAS SEEN [facility] UNDER [...] status of dentition on the charting. COMPOSITE ROMAN CATHOLIC Patient is scheduled for Mu-Ism on tooth #26 surface B5. Topical Benzocaine gel applied at theinjection site for 2 minutes. Administered 0.5 carpules of Lidocaine, 2% with Epinephrine 1:100,000,. Isolation achieved. Decay/existing gnosticism removed, cavity prepared. Selectively etched enamel with 37% phosphoric acid, rinsed, and blot dried. OptiBond bowles applied and light-cured. Condensed packable composite shade A2 in light cured increments. Finished with finishing burs, checked occlusion, verified proximal contacts and gnosticism was polished. SIMPLE EXTRACTION tooth # 7 [...] ----- Provider: Shelby Frias DMD -- Clinic: [place] ----- documented in this [id number] Progress note* Blood Attestation - Orquidea Florez MD - 12/15/2023 8:26 AM EDT Blood Attestation: ATTESTATION OF INFORMED CONSENT FOR BLOOD: The transfusion of blood and/or blood components were discussed with the patient and/or legal ict sales representative. The risks, benefits and alternatives were reviewed. Questions regarding blood transfusions were answered. The patient /or the patient s legal ict sales representative agree with the plan for transfusion of blood and/or blood components. [facility] Work Phone: 1(178) 514-474610-24-2024 Miscellaneous Notes* Blood Attestation - Orquidea Florez MD - 12/15/2023 8:26 AM EDT Blood Attestation: ATTESTATION OF INFORMED CONSENT FOR BLOOD: The transfusion of blood and/or blood components were discussed with the patient and/or legal ict sales representative. The risks, benefits and alternatives were reviewed. Questions regarding blood transfusions were answered. The patient /or the patient s legal ict sales representative agree with the plan for transfusion of blood and/or blood components. documented in this [id number] Anesthesiology Preoperative evaluation and management note* Anesthesia Preprocedure Evaluation - Orquidea Florez MD - 12/15/2023 7:54 AM EDT ASA: 2 No history of anesthetic complications PSE status: Had PSE NPO status: >8 hours Past Medical History and Review of Systems (Full ROS completed in PSE) Pulmonary (-) sleep apnea Dental ROS (+) teeth problems Endo flumer (-) not (negative in clinic today) Neuro/Psych [...] were discussed with the patient and/or legal ict sales representative. The risks, benefitsand alternatives were reviewed. Questions regarding anesthesia were answered. Patient and/or legal ict sales representative knows such anesthetics and procedures may be performed by Resident physicians, Certified Anesthesiologist Assistants, or Certified Nurse Anesthetists under the supervision of a physician. The patient /or the patient s legal ict sales representative agree with the plan for anesthesia. MHPATFORM [id number] History of Present illness Narrative* YESIKA Mac [...] for any new/changing lesions documented in this encounterCrossroads Regional Medical [id number] Telephone encounter Note* Telephone Encounter - Idania Campbell RN - 11/23/2023 2:56 PM EDT Anesthesia consent obtained and scanned into [employer]. Scheduled for surgery 12/15/2023. [id number] Miscellaneous Notes* Telephone Encounter - Idania Campbell RN - 11/23/2023 2:56 PM EDT Anesthesia consent obtained and scanned into [employer]. Scheduled for surgery 12/15/2023. documented in this [id number] NoteDo not eat or drink anything after [...] the Pre Admission Testing (PAT) department at [phone], or your surgeon's office, with any additional questions.[facility] Medical CenterLionsharp Voiceboard [id number] History of Present illness Narrative* Bhanu Charlton [...] Anger reaction Astigmatism Bipolar disorder (CMS/HCC) Convulsions ([facility]/HCC) Developmental delay GERD (gastroesophageal reflux disease) Hypercholesterolemia (CMS/HCC) Hyperopia Hypertension (CMS/HCC) Impulse control disorder (CMS/HCC) Intellectual disability ([facility]/HCC) Mental disorder Mental retardation, mild Mood disorder (CMS/HCC) OCD (obsessive compulsive disorder) ([facility]) Osteopenia PTSD (post-traumatic stress disorder) ([facility]) Seizures ([facility]) Medications: Current Outpatient Medications: acetaminophen (Tylenol) [...] subungual debris. They were painful to palpation 96249 on the right 86429 on the left. VASC: DP /PT were nonpalpable bilateral. Capillary refill time < 3 seconds Digits 1-5 bilateral NEURO: [place] Ami 5.07 monofilament was intact B/L. Vibratory [...] 1through 10. DAY Laura documented in this encounterCrossroads Regional Medical [id number] History of Present illness Narrative* Case Melchor [...] results found for: IRONSAT , FERRITIN , [id number] , FOLATE Mineral and Bone Labs: No [...] of your patients! Please contact me at [phone] (Office) or [phone] (Answering service) with any questions. CASE MELCHOR MD [facility] This note was created with the assistance of a speech-recognition program. Although the intention is to generate a document that actually reflects the content of the visit, no guarantees can be provided that every mistake has been identified and corrected by editing. documented in this encounterSelect [facility]-28-[facility] History of Present illness Narrative* Lizandro Veronica DDS - 10/19/2023 10:05 AM EDT ----- Thursday, October 19, 2023 at 11:01:41 AM ----- ----- Provider: [id number] Resident Marco -- Clinic: [place] ----- LIMITED EXAM Patient presents for Emergency [...] consented to treatment today. Pt here with metal casket assembler to discuss IV sedation as a quicker [...] sedation. Informed both the patient and the metal casket assembler. Treatment request for IV sedation will be sent for the patient. Next Visit: IV sedation and appropriate treatment. ----- Signed on Thursday, October 19, 2023 at 1:27:08 PM ----- ----- Provider: [id number] Ed Obrien DDS -- Clinic: [place] ----- documented in this [id number] Miscellaneous Notes* Telephone Encounter - Cesia Lang - 08/01/2023 3:02 PM EDT [facility] called and requested the last progress note to be faxed to [phone]. Faxed note. documented in this encounterSelect Medical Specialty [facility]06-10-2024 Telephone encounter Note* Telephone Encounter - Cesia Lang - 08/01/2023 3:02 PM EDT [facility] called and requested the last progress note to be faxed to [phone]. Faxed note. [facility]06-06-2024 History of Present illness Narrative* Case Melchor [...] constantly. She is a resident at the [facility] full- time. She is reasonably functional. Her [...] results found for: IRONSAT , FERRITIN , [id number] , FOLATE Mineral and Bone Labs: No [...] of your patients! Please contact me at [phone] (Office) or [phone] (Answering service) with any questions. CASE MELCHOR MD [facility] This note was created with the assistance of a speech-recognition program. Although the intention is to generate a document that actually reflects the content of the visit, no guarantees can be provided that every mistake has been identified and corrected by editing. documented in this encounterSelect Medical Specialty [facility]04-10-2024 Discharge summary Author Rico Romero [facility] June 01, 2023 3:06pmNote Date/TimeApr2023 12:23pm[place] [address] Discharge Summary Signed Patient: Migdalia Connelly MR#: [id number] : 1985 Acct:[id number] Age/Sex: 37 / F Adm Date: 4 Loc: 4N Room: 1M5759-[address]: Rico Romero DO Copies to: [...] with developmental delay who lives at the [facility]. She hadbeen cared for at an outside [...] before she will be transferred back to [place]. She was also given the discharge instructions [...] % (Auto) N/A, Lymph % (Auto) N/A, Ceiba % (Auto) N/A, Eos % (Auto) N/A, Baso % (Auto) N/A, Nucleat RBC Rel Count N/A, Neut # (Auto) N/A, Lymph # (Auto) N/A, Ceiba # (Auto) N/A, Eos # (Auto) N/A, [...] <Electronically signed by Rico Romero DO> 06/01/23 1670 [facility] Work Phone: 1(161) 843-725004-09-2024 Progress note Author Rico Romero [facility] May 31, 2023 11:47amNote Date/TimeApril 2023 11:47[place] [address] Hospitalist Progress Note Signed Patient: Migdalia Connelly MR#: [id number] : 1985 Acct:[id number] Age/Sex: 37 / F Adm Date: 4 Loc: 4N Room: 2U5996-3 Type: ADM IN Attending Dr: Rico Romero [...] Capsule PO 05/28/24 19:29 40 mg DAILY@1929 [facility] Administration Bisacodyl 10 mg 05/29/23 15:58 Bisacodyl [...] Capsule PO 05/28/24 19:29 200 mg BID@899,1929 [facility] Administration Emollient Ointment 1 applic 05/29/23 18:01 05/30/23 11:30 Petrolatum,White 99 Gm Oint...G. TOPICAL 1 applic BID PRN Administration dry skin Enoxaparin Sodium 40 mg 05/30/23 10:00 05/31/23 08:18 Enoxaparin 40 Mg/0.4 Ml Syringe SUBCUT 05/29/24 09:59 40 mg DAILY@10 [facility] Administration Fenofibrate 145 mg 05/29/23 19:30 05/30/23 20:04 Fenofibrate Nanocrystallized 145 Mg Tablet PO 05/28/24 19:29 145 mg DAILY@1929 [facility] Administration Fluticasone Propionate 2 spray 05/29/23 18:01 Fluticasone Propionate [place] 120 [place]/16 Gm Bottle INTRANASAL 05/28/24 18:00 DAILY PRN allergy symptoms Guanfacine HCl 2 mg 05/29/23 19:30 05/31/23 08:15 Guanfacine 1 Mg Tablet PO 05/28/24 19:29 2 mg TID@0900,1400,1929 [facility] Administration Hydralazine HCl 10 mg 05/29/23 [...] [Efudex] TOPICAL 05/28/24 20:59 Not Given BID [facility] Non-Formulary Medication 1 tab 05/30/23 09:00 05/31/23 [...] signed by Rico Romero, DO> 05/31/23 1147 [facility] Work Phone: 1(155) 338-625004-08-2024 Progress note Author Anamaria Benton [facility] May 30, 2023 12:21pmNote Date/TimeApril 2023 12:21pm[place] [address] Hospitalist Progress Note Signed Patient: Migdalia Connelly MR#: [id number] : 1985 Acct:[id number] Age/Sex: 37 / F Adm Date: 4 Loc: 4 Room: 2H6478-6 Type: ADM INOo Attending Dr: Anamaria Benton [...] Tab.Er.12h PO 05/28/24 19:29 400 mg DAILY@1929 [facility] Administration Clonidine HCl 0.2 mg 05/29/23 19:30 05/30/23 11:29 Clonidine 0.2 Mg Tablet PO 05/28/24 19:29 0.2 mg 0900,1400,1929 [facility] Administration Diazepam 5 mg 05/29/23 18:15 Diazepam 5 Mg Tablet PO 11/25/23 18:14 ONCE PRN 1 HOUR PRIOR TO PROCEDURE Dicyclomine HCl 20 mg 05/29/23 19:30 05/30/23 08:25 Dicyclomine 20 Mg Tablet PO 05/28/24 19:29 20 mg BID@899,1929 [facility] Administration Diphenhydramine HCl 25 mg 05/29/23 15:51 05/29/23 20:04 Diphenhydramine 25 Mg Capsule PO 05/28/24 15:50 25 mg Q8H PRN Administration Severe rash or Itching Docusate Sodium 200 mg 05/29/23 19:30 05/30/23 08:24 Docusate 100 Mg Capsule PO 05/28/24 19:29 200 mg BID@0900,0 [facility] Administration Emollient Ointment 1 applic 05/29/23 18:01 05/30/23 11:30 Petrolatum,White 99 Gm Oint...G. TOPICAL 1 applic BID PRN Administration dry skin Enoxaparin Sodium 40 mg 05/30/23 10:00 05/30/23 09:11 Enoxaparin 40 Mg/0.4 Ml Syringe SUBCUT 05/29/24 09:59 40 mg DAILY@10 [facility] Administration Fenofibrate 145 mg 05/29/23 19:30 05/29/23 20:00 Fenofibrate Nanocrystallized 145 Mg Tablet PO 05/28/24 19:29 145 mg DAILY@1930 [facility] Administration Fluticasone Propionate 2 spray 05/29/23 18:01 Fluticasone Propionate [place] 120 [place]/16 Gm Bottle INTRANASAL 05/28/24 18:00 DAILY PRN [...] [facility] Work Phone: 1(585) 266-605004-07-2024 History and physical note Author Arvind Regan [facility] May 29, 2023 4:12pmNote Date/TimeApr2023 4:01pm[place] [address] Hospitalist H&P Signed Patient: Migdalia Connelly MR#: [id number] : 1985 Acct:[id number] Age/Sex: 37 / F Adm Date: 4 Loc: 4 Room: [address] [place] [address] Type: ADM INOo Attending Dr: Arvind Regan DO Copies to: NON STAFF Arvind Regan DO~ HPI DATE OF EXAMINATION: 05/29/23 CHIEF COMPLAINT: Concern for worsening facial cellulitis HISTORY OF PRESENT ILLNESS: This is a 37-year-old female with MRDD who lives in a [facility]ci who presents [facility] ER with her caregiver with concern for worsening facial cellulitis. Patient was just discharged from [facility] on Tuesday after being treated [...] negative unless noted below or in HPI [facility] Medical History (Updated 05/29/23 @ 16:10 by [...] 13:36 Lymph % (Auto) N/A 05/29/23 13:36 Ceiba % (Auto) N/A 05/29/23 13:36 Eos % (Auto) N/A 05/29/23 13:36 Baso % (Auto) N/A 05/29/23 13:36 Nucleat RBC Rel Count N/A 05/29/23 13:36 Neut # (Auto) N/A 05/29/23 13:36 Lymph # (Auto) N/A 05/29/23 13:36 Ceiba # (Auto) N/A 05/29/23 13:36 Eos # [...] periorbital cellulitis where she was hospitalized at [facility] and treated with IV antibiotics [...] <Electronically signed by Arvind Regan DO> 05/29/23 [facility] Work Phone: 1(344) 508-200204-03-2024 Miscellaneous Notes* Telephone Encounter - Cesia Lang - 05/25/2023 11:38 AM EDT Called and scheduled new pt appt with nurse from [facility]. Labs ordered and faxed to facility. [facility] Telephone encounter Note* Telephone Encounter - Cesia Petersenev - 05/25/2023 11:38 AM EDT Called and scheduled new pt appt with nurse from [facility]. Labs ordered and faxed to facility. [facility] [employer] Voiceboard [id number] History of Present illness Narrative* Scarlett Albarran DDS - 06/10/2022 1:29 PM EDT ----- May at 3:52:48 PM ----- ----- Provider: [id number] Resident Betsy -- Clinic: [place] ----- OR EVALUATION Patient presents for evaluation [...] treatment in the OR was sent out [phone] NOTE: Note: Pt seen in the OR about 2 years ago. Next Visit: OR ----- Signed on May at 4:11:20 PM ----- ----- Provider: [id number] Ed Obrien DDS -- Clinic: [place] ----- documented in this encounterMetroHealthEvaluation + Plan note No data available for this section [facility]* Diagnosis Onset Date Resolution Status Periorbital cellulitis [facility] Work Phone: Evaluation note* Diagnosis Onset Date Resolution Status Bipolar disorder acuteFailure of outpatient treatmentacuteHypercholesterolemiaacuteHypertension acuteModerate intellectual disabilityacutePeriorbital cellulitisacutePTSD (post- traumatic stress disorder)acuteSeizure disorderacute [facility] Work Phone: Evaluation note* Diagnosis Onset Date Resolution Status Bipolar disorder acuteHypercholesterolemiaacuteHypertensionacutePTSD (post-traumatic stress disorder)acuteSeizure disorderacutePeriorbital cellulitisresolved [facility] Work Phone: Evaluation note* Diagnosis Caries- Primary Unspecified dental caries documented in this encounter [facility]* Diagnosis Lip licking dermatitis [facility] encounter [facility]* Diagnosis Caries- Primary Unspecified dental caries documented in this encounter [facility]* Diagnosis Onychomycosis- Primary Dermatophytosis of nail Pain in right toe(s) Pain in left toe(s) documented in this encounter [facility]* Diagnosis Pre-op evaluation- Primary Preoperative examination, unspecified documented in this encounter [facility]* Diagnosis Onychomycosis- Primary Dermatophytosis of nail Pain in right toe(s) Pain in left toe(s) documented in this encounter [facility] HealthcareEvaluation note* Diagnosis Convulsions, unspecified convulsion type (CMS/HCC)- Primary Hyponatremia Hyposmolality and/or hyponatremia Developmental delay Unspecified delay in development Anger reaction Undersocialized conduct disorder, aggressive type, unspecified documented in this encounter [facility] HealthcareEvaluation note* Diagnosis Hyponatremia- Primary Hyposmolality [...] aggressive type, unspecified documented in this encounter [facility] HealthcareEvaluation note* Diagnosis Encounter for breast and pelvic examination- Primary [facility]* Diagnosis Onychocryptosis- Primary Ingrowing nail Pain in left toe(s) Abscess, toe, left documented in this encounter [facility] HealthcareEvaluation note* Diagnosis Abscess, toe, left- Primary Onychocryptosis Ingrowing nail documented in this encounter [facility] HealthcareEvaluation note* Diagnosis Exostosis of right foot- Primary Other enthesopathy of right foot and ankle Pain in right toe(s) Right foot pain Pain in soft tissues of limb Onychomycosis Dermatophytosis of nail Pain in left toe(s) documented in this encounter [facility] HealthcareEvaluation note* Diagnosis Mastodynia, female- Primary Mass of right breast, unspecified quadrant documented in this encounter [facility]* Diagnosis Caries- Primary Unspecified dental caries documented in this encounter [facility]* Diagnosis Mass of right breast, unspecified quadrant- Primary Breast skin changes Mastodynia, female documented in this encounter [facility]* Diagnosis Exostosis of right foot- Primary Other enthesopathy of right foot and ankle Right foot pain Pain in soft tissues of limb documented in this encounter [facility] HealthcareEvaluation noteNo assessment information availableSelect Medical [facility] Work Phone: Evaluation note* Diagnosis Mastodynia, female- Primary documented in this encounter [facility]* Diagnosis Exostosis of right foot- Primary Other enthesopathy of right foot and ankle documented in this encounter [facility] HealthcareEvaluation note* Diagnosis Caries- Primary Unspecified dental caries Pre-op evaluation- Primary Preoperative examination, unspecified Body mass index (BMI) 30.0-30.9, adult Caries Unspecified dental caries documented in this encounter [facility]* Diagnosis Caries- Primary Unspecified dental caries documented in this encounter [facility]* Diagnosis Onychomycosis- Primary Dermatophytosis of nail Pain in left toe(s) Pain in right toe(s) documented in this encounter [facility] HealthcareEvaluation note* Diagnosis Cellulitis of right breast- Primary documented in this encounter [facility]* Diagnosis Onset Date Resolution Status Admit Date Convulsions resolvedOctober 2024 9:02am [facility] Work Phone: History and physical note Author Arvind Regan [facility] May 29, 2023 4:12pmNote Date/TimeApril 2023 4:01pm[place] [address] Hospitalist H&P Signed Patient: Migdalia Connelly MR#: [id number] : 1985 Acct:[id number] Age/Sex: 37 / F Adm Date: 4 Loc: 4N Room: [address] [place] [address] Type: ADM INOo Attending Dr: Arvind Regan DO Copies to: NON STAFF Arvind Regan DO~ HPI DATE OF EXAMINATION: 05/29/23 CHIEF COMPLAINT: Concern for worsening facial cellulitis HISTORY OF PRESENT ILLNESS: This is a 37-year-old female with MRDD who lives in a fci who presents [facility] ER with her caregiver with concern for worsening facial cellulitis. Patient was just discharged from [facility] on Tuesday after being treated [...] negative unless noted below or in HPI [facility] Medical History (Updated 05/29/23 @ 16:10 by [...] 13:36 Lymph % (Auto) N/A 05/29/23 13:36 Ceiba % (Auto) N/A 05/29/23 13:36 Eos % (Auto) N/A 05/29/23 13:36 Baso % (Auto) N/A 05/29/23 13:36 Nucleat RBC Rel Count N/A 05/29/23 13:36 Neut # (Auto) N/A 05/29/23 13:36 Lymph # (Auto) N/A 05/29/23 13:36 Ceiba # (Auto) N/A 05/29/23 13:36 Eos # [...] periorbital cellulitis where she was hospitalized at [facility] and treated with IV antibiotics [...] instructions No data available for this section [facility] instructions Additional Instructions DO continue [...] Start TimeAnesthesia Stop TimeDENTAL Orquidea Arcos MD12/15/23 41846512/15/23 3832NojwLddrItafwNefbzgj79/24/995432246697Qn Start Vdiq3224Wy Brwnh1272Ohpjogehmhhf VerifyThe anesthesia team has reviewed the patient's vital signs immediately prior to induction. MAXIMO Soliz0833Procedure TimeoutConfirm the correct patient identity: Yes Confirm the correct procedure: Yes Confirm the correct procedural site: Yes Confirm signed informed consent: Yes Confirm prophylactic antibiotic administration (if applicable): N/A Discuss fire risk mitigation (if applicable): Yes Anesthesia Staff MAXIMO Soliz Proceduralist Altagracia Additional Staff 0834An Nmamclkuy0667Nsudbhnmcc Enwdqst1114ua stop nwxm5351 HandoffI completed my SBAR handoff to the receiving nurse in the receiving unit.0925AN Stop* NameTotalglycopyrrolate (ROBINUL) injection 0.2 mg/mL0.1 mg Midazolam 1 mg/mL5 mgDexmedetomidine injection 100 mcg/mL56 mcgKetorolac 30 mg/mL15 mgLactated Veawfdp99 mL * Agents Name N2O O2 Flow Rate (l/min) * Blood No blood administrations on file. TypeDetailsPlacementRemovalSurgical Wound06/09 0000 by Carola Hansen RNSurgical Wound09/15/18; 1148; Incision; N/A; Mouth09/15/18 1148 by Mayte Poole RNWound07/14/20; 1023; Bilateral; Other (Comment); Surgical - Fegicumt04/24/21 1023 by Felix Oro RNAirway Foehmgd41/24/24; 0833; Nasal Pbhqzyw15/24/24 0833 by Domingo Carrion APRN-CRNAdocumented in this encounter [facility]HealthProcedure anesthesia Narrative* Procedure NameResponsible AnesthesiologistAnesthesia Start TimeAnesthesia Stop TimeDENTAL Orquidea Arcos MD12/15/23 15903212/15/23 7418XyhzYwgrOaqcwRocdicf34/24/992121111195Cd Start Jxhh8270Kc Oboug2447Skrjehpkhpfw VerifyThe anesthesia team has reviewed the patient's vital signs immediately prior to induction. MAXIMO Soliz0833Procedure TimeoutConfirm the correct patient identity: Yes Confirm the correct procedure: Yes Confirm the correct procedural site: Yes Confirm signed informed consent: Yes Confirm prophylactic antibiotic administration (if applicable): N/A Discuss fire risk mitigation (if applicable): Yes Anesthesia Staff MAXIMO Soliz Proceduralist Altagracia Additional Staff 0834An Mdhksanxz7219Sjbmfjeiwh Vnyiire9753kp stop lsli8676 HandoffI completed my SBAR handoff to the receiving nurse in the receiving unit.0925AN Stop* NameTotalglycopyrrolate (ROBINUL) injection 0.2 mg/mL0.1 mg Midazolam 1 mg/mL5 mgDexmedetomidine injection 100 mcg/mL56 mcgKetorolac 30 mg/mL15 mgLactated Hprjsea65 mL * Agents Name N2O O2 Flow Rate (l/min) * Blood No blood administrations on file. TypeDetailsPlacementRemovalSurgical Wound06/09 0000 by Carola Hansen RNSurgical Wound09/15/18; 1148; Incision; N/A; Mouth09/15/18 1148 by Mayte Poole RNWound07/14/20; 1023; Bilateral; Other (Comment); Surgical - Ktkrdbou75/24/21 1023 by Felix Oro RNAirway Atdkxby66/24/24; 0833; Nasal Cannula; 12/15/23; 0833 by Domingo Carrion APRN-CRNA12/15/23 0920 by Domingo Carrion APRN-CRNAdocumented in this encounter [facility]HealthProgress note No data available for this section [facility] HospitalReason for referral (narrative)No reason for referral information available[facility] Work Phone: Reason for visit Narrative* Service Level Authorization (Routine) - ClosedSpecialtyDiagnoses / ProceduresReferred By ContactReferred To ContactAnesthesiology Diagnoses Caries Sabra Frias, DMD [address] [place] [address] Phone: tel: fax: [facility] PRE ADMISSION TESTING [address] [place] [address] Phone: tel: Referral IDStatusReasonStart DateExpiration DateVisits RequestedVisits [id number]/24/202410/ [facility] CampusReason for visit Narrative* Consultation (Routine) - Pending Review SpecialtyDiagnoses / ProceduresReferred By ContactReferred To Contact Nephrology Diagnoses Hyponatremia Damien Jones, PULP PRESS TENDER-GINNER [address] [place] [address] Ph[address] Nephrology geni [place] [address] [place] [address] Referral IDStatusReasonStart DateExpiration DateVisits RequestedVisits [id number] Review Specialty Services Required [facility]Reason for visit Narrative* Auth/Cert (Routine)Specialty Diagnoses / ProceduresReferred By ContactReferred To ContactAmbulatory Surgery Diagnoses Caries Caries [K02.9] Procedures UNLISTED PROCEDURE, DENTOALVEOLAR STRUCTURES ANESTHESIA, INTRAORAL PROC, W/BX; NOS DENTAL RESTORATIONS Og Grant, DDS [address] [place] [address] Phone: tel: fax: [facility] [address] [place] [phone] Phone: tel: Referral IDStatusReasonStart DateExpiration DateVisits RequestedVisits [id number] [facility] Summary Purpose Family History No Family History [...] Contact Anesthesiology Diagnoses Caries Sabra Frias DMD [address] [place] [address] [facility] PRE ADMISSION TESTING [address] [place] [address] Referral IDStatusReasonStart DateExpiration DateVisits RequestedVisits [id number]/24/202410/24/202511 Scheduling Instructions Your surgical team will reach out to you to schedule a pre-admission testing appointment. QuestionAnswer Reason for consult? Recommended PAT Risk Score SpecialtyDiagnoses / ProceduresReferred By ContactReferred To Contact Anesthesiology Diagnoses Caries Og Grant, HALINA [address] [place] [address] [facility] PRE ADMISSION TESTING [address] [place] [address] Referral IDStatFaizan DateExpiration DateVisits RequestedVisits [id number]/28/20248/28/202511 Scheduling Instructions Your surgical team will reach out to you to schedule a pre-admission testing appointment. QuestionAnswer Reason for consult? Recommended PAT Risk Score Additional Source Comments INFORMATION SOURCE (unrecogn ized section and content) DATE CREATED AUTHOR 05/12/2018 [facility] DATE CREATED AUTHOR AUTHOR'S ORGANIZ ATION 07/30/2022 [facility] DATE CREATED AUTHOR AUTHOR'S ORGANIZ ATION 04/21/2023 [facility] DATE CREATED AUTHOR AUTHOR'S ORGANIZ ATION 08/12/2024 [facility] DATE CREATED AUTHOR AUTHOR'S ORGANIZ ATION 08/26/2024 [facility] DATE CREATED AUTHOR AUTHOR'S ORGANIZ ATION 09/08/2024 [facility] DATE CREATED AUTHOR AUTHOR'S ORGANIZ ATION 10/15/2024 [facility] DATE CREATED AUTHOR AUTHOR'S ORGANIZ ATION 11/15/2024 [facility] DATE CREATED AUTHOR AUTHOR'S ORGANIZ ATION 11/25/[address] [facility] Patient Care team informatio n (unrecognized [...] Active Member Role Status Dates Venita Amanda PULP PRESS TENDER Emergency Provider Active Start: May 29, 2023 End: June 01, 2023Yaenyda Murdocksein , DOAdmit Provider, Attending ProviderActive Start: [...] 2023Team MemberRelationshipSpecialtyStart DateEnd Date Lio Muñoz MD [address] [place] [address] PCP - GeneralFamily Medicine11/09/23 Ramone Herrera DO [address] [phone] Referring PhysicianNeurology05/19/23Team MemberRelationshipSpecialtyStart DateEnd Lio Muñoz MD [address] [place], [place] [address] PCP - GeneralFamily Medicine11/09/23 Ramone Herrera DO [address] [phone] Referring PhysicianNeurology05/19/23Team MemberRelationshipSpecialtyStart DateEnd Lio Muñoz MD [address] [place] [address] PCP - GeneralFamily Medicine11/09/23 Ramone Herrera DO [address] [phone] Referring PhysicianNeurology05/19/23Team MemberRelationshipSpecialtyStart End Lio Muñoz MD [address] [place], [place] [address] PCP - GeneralFamily Medicine11/09/23 Ramone Herrera DO [address] [phone] Referring PhysicianNeurology05/19/23Team MemberRelationshipSpecialtyStart DateEnd Lio Muñoz MD [address] [place], [place] [address] PCP - GeneralFamily Medicine11/09/23 Ramone Herrera DO [address] [place] [address] Referring PhysicianNeurology05/19/23Team MemberRelationshipSpecialtyStart DateEnd Date Lio Muñoz MD [address] [place] [address] PCP - GeneralFamily Medicine11/09/23 Ramone Herrera DO [address] [place] [address] Referring PhysicianNeurology05/19/23Team MemberRelationshipSpecialtyStart DateEnd Date Lio Muñoz MD [address] [place] [address] PCP - GeneralFamily Medicine11/09/23 Ramone Herrera DO [address] [place] [address] Referring PhysicianNeurology05/19/23Team MemberRelationshipSpecialtyStart End Lio Muñoz MD [address] [place] [address] PCP - GeneralFamily Medicine11/09/23 Ramone Herrera DO [address] [place] [address] Referring PhysicianNeurology05/19/23Team MemberRelationshipSpecialtyStart End Date Lio Muñoz MD [address] [place] [address] PCP - GeneralFamily Medicine11/09/23 Ramone Herrera DO [address] [place] [address] Referring PhysicianNeurology05/19/23Team MemberRelationshipSpecialtyStart DateEnd Date Lio Muñoz MD [address] [place], [place] [address] PCP - GeneralFamily Medicine11/09/23 Ramone Herrera DO [address] [place] [address] Referring PhysicianNeurology05/19/23Team MemberRelationshipSpecialtyStart End Date Lio Muñoz MD [address] [place], [place] [address] PCP - GeneralFamily Medicine11/09/23 Ramone Herrera DO [address] [place] [address] Referring PhysicianNeurology05/19/23Team MemberRelationshipSpecialtyStart End Lio Muñoz MD [address] [place] [address] PCP - GeneralFamily Medicine11/09/23 Ramone Herrera DO [address] [place] [address] Referring PhysicianNeurology05/19/23Team MemberRelationshipSpecialtyStart End Date Lio Muñoz DO [address] [place] [address] PCP - GeneralFamily Medicine08/07/24Team MemberRelationshipSpecialtyStart DateEnd Date Lio Muñoz DO [address] [place] [address] PCP - GeneralFamily Medicine08/07/24Team MemberRelationshipSpecialtyStart DateEnd Date Lio Muñoz MD [address] [place] [address] PCP - GeneralFamily Medicine11/09/23 Ramone Herrera DO [address] [place] [address] Referring PhysicianNeurology05/19/23Team MemberRelationshipSpecialtyStart DateEnd Date Lio Muñoz MD [address] [place] [address] PCP - GeneralFamily Medicine11/09/23 Ramone Herrera DO [address] [place] [address] Referring PhysicianNeurology05/19/23 Team Status: Inactive Member Role Status Dates Lio Muñoz DO Attending Provider Active Start: August 23, 2024 End: August 23, 2024Team MemberRelationshipSpecialtyStart DateEnd Date Lio Muñoz DO [address] [place] [address] PCP - GeneralFamily Medicine08/07/24Team MemberRelationshipSpecialtyStart DateEnd Date Lio Muñoz MD [address] [place] [address] PCP - GeneralFamily Medicine11/09/23 Ramone Herrera DO [address] [phone] Referring PhysicianNeurology05/19/23Team MemberRelationshipSpecialtyStart DateEnd Date Lio Muñoz MD [address] [place], [place] [address] PCP - GeneralFamily Medicine11/09/23 Ramone Herrera DO [address] [place], [place] [phone] Referring PhysicianNeurology05/19/23Team MemberRelationshipSpecialtyStart DateEnd Date Lio Muñoz MD [address] [place] [address] PCP - GeneralFamily Medicine11/09/23 Ramone Herrera DO [address] [phone] Referring PhysicianNeurology05/19/23Team MemberRelationshipSpecialtyStart End Lio Muñoz MD [address] [place] [address] PCP - GeneralFamily Medicine11/09/23 Ramone Herrera DO [address] [phone] Referring PhysicianNeurology05/19/23Team MemberRelationshipSpecialtyStart DateEnd Date Lio Muñoz DO [address] [place] [address] PCP - [facility]08/07/24Team MemberRelationshipSpecialtyStart DateEnd Date Lio uMñoz DO [address] [place] [address] PCP - [facility]08/07/24 Team Status: Active Member Role/Relationship Status [...] Visit (unrecogniz ed section and content) ReasonOnset ZckaExwcnpyoEUG50/02/2024Anesthesia consent obtainedReasonComments Toenail CareNon dm nail careReasonCommentsToenail CareNon DM nail careReason CommentsConvulsionsReasonCommentsSeizuresReasonCommentsMedicare breast and PelvicReasonCommentsIngrown ToenailLt great toenailReasonCommentsFollow-upF/U LT grt nail avulsionReasonCommentsToenail CareNon DM nail careFoot PainRT foot painReasonCommentsBreast LumpReasonCommentsNew PatientMassRight breast mass SpecialtyDiagnoses / ProceduresReferred By ContactReferred To ContactBreast Surgery Diagnoses Mastodynia, female Mass of right breast, unspecified quadrant Linn Red MD [address] [place] [address] Phone: tel: fax: Yesenia Serrano MD [address] [facility], [address] [address] Phone: tel: fax: Referral IDStatusReasonStart DateExpiration DateVisits RequestedVisits [id number] Review/[id number]P/U RT foot joint inj l0EimpajTtlfaeqmHvtfsp-nmHfzydsEqukhptdVxbsuiyzscD/U LT foot 1st met joint inj r2YmqsxbAfwkj LdtqTptegdudQlbnxs89/15/2025DD adult dental restorations 10/08/24 under [facility] at [facility]. PAT completed 09/21/24. Consents obtained from Guardian Jessica Celso. KIM RN spoke to Yazmin MARES at [facility] on 10/05/24. Confirmed NPO after 2200. [facility] address [address] [place] [address] Rd - [address]ax entrance. 0630 arrival time. Staff from [facility] will be accompanying pt DOS.ReasonCommentsPre-surgical EvaluationReasonCommentsFollow-up [...] score 7,8,9,10), PACU Now lidocaine-EPINEPHrine (XYLOCAINE) 2 %-1:189761 injection (CANCELED) PRN, Starting on Tue10/08/24 at [...] BE BASED ON THE PRIMARY CLINICAL RECORDS. [facility]. provides no warranty or guarantee of the accuracy or completeness of information in this document.
--- OUTSIDE RECORDS SUMMARY | 2025-01-07 06:36 | XMS_ITS | Clinical Summary ---
Author Organization [facility] Address [id number] [place] [address] Care Team Providers Care Network Systems Integrator Name Role Phone Wanda Lio Kody SUN Primary Care Provider Allergies Active AllergyReactionsCriticalityNoted GcfbHbjnmcxiMxryfolumhhj18/18/2024 Ieehdlbfxds92/18/9312Hgvkmjqtic00/18/6832Upgossarp59/18/3739Mlovloqeeq61/18/2024 Other06/09/2012 [employer] Medications MedicationSigDispense QuantityRefillsLast FilledStart DateEnd [...] DAY NEEDED FOR NASAL CONGESTION AND COUGH TSWRLUA09/11/2025Active Active Problems ProblemNoted DateDiagnosed DateMass of right jvavcc0108/08/2024reast skin changes 08/08/20240466Hrbxnxldudhh49/05/2024 Encounters DateTypeDepartmentCare ZqziAyrtoepqfen78/30/2025 11:00 AM EDTOffice Visit [facility] [address] [place] [address] Abby Bauman PA Cellulitis of right breast (Primary Dx)11/20/2024Telephone [facility] [address] [place] [address] Luz Marina Nunez LPN 11/20/2024Travelfrom Last 3 Months Social History Tobacco UseTypesPacks/DayYears UsedDateSmoking Tobacco: NeverSmokeless Tobacco: Never Tobacco Cessation:Counseling Given: Not Answered Alcohol UseStandard Drinks/WeekCommentsNever0 (1 standard drink = 0.6 oz pure alcohol)CommentsNoSex and Gender InformationValueDate RecordedSex Assigned at BirthNot on fileLegal TkiUihaig82/07/2024 12:38 PM ESTGender IdentityNot on fileSexual OrientationNot on file Last Filed Vital Signs Vital SignReadingTime TakenCommentsBlood Zapfhehz366/9111/20/2024 10:58 AM EDT Lymul0485/30/2025 10:58 AM EDTTemperature--Respiratory Qajo007911/20/2024 10:58 AM EDTOxygen Rvfcwxghue386%07/28/2023 2:07 PM EDTInhaled Oxygen Concentration-- Hmltpw92.4 kg (164 lb)11/20/2024 10:58 AM NHXTmjkuw883.8 cm (5' 4.49 )11/20/2024 10:58 AM EDTBody Mass Index27.7311/20/2024 10:58 AM EDT Plan of Treatment Health MaintenanceDue DateLast DoneCommentsDepression Svbibjspo42/14/1999Adult BMI Follow Up Plan2004COVID-19 Vaccine ( season)2024 12/08/2023, 12/08/2022, 12/09/2021, Additional history existsInfluenza Vaccine /, 12/08/2022, 12/09/2021, Additional history existsAdult BMI Mvoshnbxs99Tobacco Fpuucwqte13Pap Smear /DTaP,Tdap and Td Vaccines (7 - Td or Tdap)11/11/2029 11/12/2019, 11/29/2001, 12/03/1991, Additional history exists Medical Devices Not on file Insurance * Guarantor: Migdalia ConnellyAccogian TypeRelation to PatientDate of BirthPhoneBilling AddressPersonal/EnjchkZipp50/14/[address] [address] Care Teams Team MemberRelationshipSpecialtyStart DateEnd Date Lio Muñoz DO [address] [place] [address] [facility] - [facility]08/07/24
--- OUTSIDE RECORDS SUMMARY | 2025-01-07 06:36 | XMS_ITS | Clinical Summary ---
Author Organization [facility] Address [address] [place] [address] Care Team Providers Care Auto Top Mechanic Name Role Phone Ramone Herrera DO Unavailable [phone] Lio Muñoz MD Primary Care Provider [phone] Allergies Active AllergyReactionsCriticalityNoted BzrfYqiazopiNcyaijqxeofHgvwmwr77/19/2013 WrybuordrbfePxdjrjc46/19/0415WvnsxasfumfhdyhwWcbgbdj00/07/2024extromethorphan Hbr06/09/2012Food06/09/2012 Peterson Slaw PyfedimxfuBhekhbv50/19/3484MhzfopfivKdeifis24/19/7820OabedxlvheEitqoky43/19/2013 Qiciynattgifnfqe99/19/2013Valproic YvpaTixuzoi60/24/2019 Per OSH H+P 08/2018 Medications MedicationSigDispense QuantityRefillsLast [...] tablet Take 300 mg by mouth at xzuzsec5604/27/2023ctive lamoTRIgine (LaMICtal) 200 MG tablet Take 1 [...] or split..Active Active Problems ProblemNoted DateDiagnosed DateAnger ibrcfwnr34/23/2024 Overview (07/14/2023): Seemingly stable per report from the patient's caregiver today. PLAN: - Follow closely with psychiatry and primary care provider for management Bvxlnnkfxp72/23/2024 Overview (07/14/2023): The patient has a history [...] mental status in the future Alteration of bnbqkiwnxgbhr13/23/2024 Overview (07/14/2023): The patient and caregiver deny any episodes of altered consciousness or awareness since the prior appointment at [facility]. Development delay07/14/2023 Overview (07/14/2023): Risk factor for seizures. Bipolar ijlsaapc37/13/2024Essential qtvsafqqnpjq43/13/2024Seizure disorder 05/04/2023ure ezrdqpkxmgwyfzuyvvss42/13/2024ttention deficit disorder with jxehrjicogbed16/04/2013 Overview (05/04/2023): Attention deficit disorder with hyperactivity Encounters DateTypeDepartmentCare CiduJvpjneldbta34/25/2025Abstract [facility] [address] [place] [address] Bhanu Charlton, DPM FACFAS 11/14/2024 9:00 AM EDTProcedure Visit [facility] [address] [place] [address] Bhanu Charlton, DPM FACFAS Onychomycosis (Primary Dx); Pain in left toe(s); Pain in right toe(s)11/14/2024amboo flowsheet [facility] [address] [place] [phone] Bhanu Charlton, DPM FACFAS from Last 3 Months Family History RelationNameStatusCommentsMotherAlive Social History Tobacco UseTypesPacks/DayYears UsedDateSmoking Tobacco: NeverSmokeless Tobacco: Never Tobacco Cessation:Counseling Given: Yes Alcohol UseStandard Drinks/WeekCommentsNever0 (1 standard drink = 0.6 oz pure alcohol)CommentsUnknownSex and Gender InformationValueDate RecordedSex Assigned at BirthNot on fileLegal JciHspoda74/15/2023 10:14 PM EDTGender IdentityNot on fileSexual OrientationNot on file Last Filed Vital Signs Vital SignReadingTime TakenCommentsBlood Tgeziztr900/6609 9:29 AM EDT Vcxfj3099 9:29 AM EDTTemperature--Respiratory Gnzd2754 10:33 AM EDTOxygen Kolmakzkid15%06/04/2024 10:33 AM EDTInhaled Oxygen Concentration-- Enehcg79.4 kg (197 lb)11/14/2024 9:29 AM AWHJnlfbo156.6 cm (5' 4 )11/14/2024 9:29 AM EDTBody Mass Index33.8109 9:29 AM EDT Plan of Treatment DateTypeDepartmentCare Team (Latest Contact Info)Ywmqwlqyrqx92/10/2025 9:10 AM ESTProcedure Visit [facility] [address] [place] [address] Bhanu Charlton, DPM FACFAS [address] [place] [address] Insurance Care Teams Team MemberRelationshipSpecialtyStart DateEnd Date Lio Muñoz MD [address] [place] [address] [phone] PCP - GeneralFamily Medicine11/09/23 Ramone Herrera DO [address] [place] [address] Referring PhysicianNeurology05/19/23
--- OUTSIDE RECORDS SUMMARY | 2025-01-07 06:37 | XMS_ITS | Patient Health Record ---
Author Organization [facility] Address [address] [place] [address] Care Team Providers Care Jockey'S Agent Name Role Phone Lexus Thapa Primary Care Provider [phone] Dr. Rickie Hebert Unavailable [phone] Irish Ramsey Unavailable [phone] Reason For Referral No Information Encounters Encounter Location Date Provider Diagnosis [facility] [address] [place] [address] 04/16/2024 Lexus Thapa [facility] [place] [address]/24/2025 Irish Shah dental procedure status Z98.818 and Encounter for dental examination and cleaning with abnormal findings Z01.21[facility] [address] [place] [address]/remberto ThapaDental caries on pit and fissure surface [...] Garg, 0 05/01/2025 09:30:00 AM, [address] [place], [address], Insurance Providers Payer Name Payer Address Payer Phone Subscriber Number Group Number Insured Name Patient Relationship to Insured Coverage Start Date Coverage End Date D[place]ICA[place] [address] [place] [address] [phone] [id number] Micaela CARD - patient is the [id number] 2022
--- OUTSIDE RECORDS SUMMARY | 2025-01-07 06:37 | XMS_ITS | Clinical Summary ---
Author Organization [facility] Address [address] [facility] [place] [address] Care Team Providers Care Casing Tester Name Role Phone Unavailable Primary Care Provider Unavailabl e Source Comments The following information is NOT included in Care Everywhere downloads:Psychiatric notes, ECG results, Cardiac Rehab notes, Pulmonary Function notes, data from SmartForms (includes but not limited toPregnancy data,audiograms, eye exams, pre-surgical evaluation notes, well-child exam data).[facility] Allergies Active AllergyReactionsCriticalityNoted OtagEpnixenvKjwtvru87/19/2013moxicillin 06/09/2012Valproic Acid09/13/2018 Per OSH H+P 08/2018 Food06/09/2012 Peterson Slaw Hfczbyihnf33/19/6932Rhkkstllx45/19/7900Mxpiiwsulk46/19/2013Sympathomimetics 06/09/2012Dextromethorphan Hbr06/09/2012 Medications MedicationSigDispense QuantityRefillsLast FilledStart DateEnd [...] AM EDT5Active Active Problems ProblemNoted DateDiagnosed DateDissociative aykffdvo56/11/2024Impulse control eshsvfph60/11/2024Gastroesophageal reflux xymiwsy3602/01/20243813Ulefdgfx66/11/2024 Posttraumatic stress diltrgpp07/08/2024ipolar fibifgwr99/03/2024Caries 09/05/2018 Overview (09/05/2018): Added automatically from request for surgery [id number] Dental decay08/26/2016 Overview (08/26/2016): Added automatically from request for surgery [id number] Unspecified dental xkvzoi7906/09/2012Chronic periodontitis, wrhbjazrcqo70/19/2013 Unconfirmed igvgiofnd19/19/2013Moderate intellectual hszalacqirur75/04/2013 Attention deficit hyperactivity disorder (ADHD)05/25/2012 Overview (06/03/2018): Attention deficit disorder with hyperactivity Encounters DateTypeDepartmentCare FrlrUemhwzzimey95/18/2025 7:44 AM EDTAnesthesia Event [facility] Amb[facility] Surgery [address] [place] [address] Kedar Moralez MD Fisher, Andrew, MD 10/08/2024 7:30 AM EDT - 10/08/2024 8:57 AM EDTSurgery [facility] [address] [place] [address] Og Mahoney DDS DENTAL RHAHALGZWTOP76/18/2025 6:30 AM EDTProcedure Visit [facility] Dentistry [address] [place] [address] Og Mahoney DDS 10/08/2024 6:30 AM EDT - 10/08/2024 10:19 AM EDTHospital Encounter [facility] Amb[facility] Surgery [address] [place] [address] Og Mahoney DDS Discharge Disposition: Discharge to Home10/08/2024bstract [facility] Dentistry [address] [place], [place] [phone] Risa Black DDS from Last 3 Months Immunizations ImmunizationAdministration DatesNext DueDTP (CVX=01)09/06/1988,1986, 1986,1986Hep B (peds/adol, 3-dose) (CVX=08)05/04/2001,11/10/2000, 10/10/2000Hib, unspecified formulation (CVX=17)01/23/1988Influenza, injectable, quadrivalent, preservative (IWH=564)12/15/2016Influenza, injectable, quadrivalent, preservative free (AFU=209)12/17/2020,11/28/2019,11/30/2017, 12/12/2014Influenza, injectable, trivalent, preservative (KYS=479)11/10/2010MMR, Hyrznrc-Gxldk-Zpgwxal (CVX=03)05/30/1998,04/30/1987Meningococcal conjugate (MCV4,Men-ACWY), Menactra (MCV4P) (RIM=996)07/07/2006Pfizer Monovalent (12+ yrs) SARS-COV-2 (COVID-19) vaccine, mRNA, spike protein, LNP, pres. free, 30mcg/0.3mL dose (NHA=200)03/25/2020,1Polio, oral (OPV) (CVX=02)12/03/1991, 09/06/1988,1986,1986Td (adult), unspecified formulation (VDM=939) 11/29/2001,12/03/1991Tdap (IHB=193)11/12/2019 Social History Tobacco UseTypesPacks/DayYears UsedDateSmoking Tobacco: NeverSmokeless Tobacco: NeverAlcohol UseStandard Drinks/WeekCommentsNever0 (1 standard drink = 0.6 oz pure alcohol)Substance UseTypesUse/WeekCommentsNeverCommentsNoSex and Gender InformationValueDate RecordedSex Assigned at BirthNot on fileLegal Sex Ymzodv6901/12/2012 4:11 PM ESTGender IdentityNot on fileSexual OrientationNot on file Last Filed Vital Signs Vital SignReadingTime TakenCommentsBlood Nzbnbyjp924/8910/08/2024 10:00 AM EDTok for DC per Dr. Moralez, pt will take home BP ximrEolpt14048/18/2025 10:00 AM EDT Ivjrbrtmlqz71.6 ??C (97.9 ??F)10/08/2024 10:00 AM EDTRespiratory Rate17 10/08/2024 10:00 AM EDTOxygen Tvilasqpjt02%10/08/2024 10:00 AM EDTInhaled Oxygen Concentration--Fydlth38.6 kg (182 lb)10/08/2024 7:13 AM ZTZNcbrho752.1 cm (5' 5 )10/08/2024 7:13 AM EDTBody Mass Index30.29010/08/2024 7:13 AM EDT Plan of Treatment Health MaintenanceDue DateLast DoneCommentsAnnual Wellness Visit (G0438) 02/21/1999HIV Test2001Hepatitis C Tvsihvfj12/14/2005Hepatitis A (HAV) Vaccine (optional start 19+ years)2005Pap Smear07/05/2007HPV Vaccine (optional start 27-45 years)2013COVID-19 Vaccine (2024- season) /, 12/17/2020, 03/25/2020, Additional history existsInfluenza Vaccine (#1)/, 11/28/2019, 11/30/2017, Additional history existsDental Oral Exam, 12/15/2023, 3Dental Usmomypanjc44Dental X-Ray: Gvgildadq79/19/132001, 12/15/2023Tetanus (Td or Tdap) Exeorss93, 11/29/2001, 12/03/1991Shingles (RZV) Vaccine (1 of 2)2036Hepatitis B (HBV) Vaccine Pdxoxbxzr50/14/2002, 11/10/2000, 10/10/2000Tdap FzlycttCoghftowj11/21/2020 Mammography (shared decision-making, age 35-39)Zzlhsqhfg17/19/2025Mammography Znplngrmjisx42/19/2025, 08/09/2024Pneumococcal Vaccine(s)Aged OutNo longer eligible based on patient's age to complete this topic Procedures Procedure NamePriorityDate/TimeAssociated DiagnosisCommentsEXTRACTION, TOOTH Routine /18/2025 7:32 AM EDT Caries DENTAL RESTORATIONSRoutine gwywetbke00/18/2025 7:32 AM EDT Caries COMPREHENSIVE UHFJRtbgvxj64/18/2025 12:00 AM EDTPROPHY ADULT 14 & OLDERRoutine 10/08/2024 12:00 AM EDTTOPICAL JONATHAN OF XTGJVYFETavlskv38/18/2025 12:00 AM EDT27 DL RESIN- 2 SURFACES- PVSTGLFMGvbzkxs40/18/2025 12:00 AM EDT24 DIFL RESIN- 4 OR MORE SURFACES- MFEQSCIRJdbewht44/18/2025 12:00 AM EDT11 DIFL RESIN- 4 OR MORE SURFACES- MJBQTTWHDetxjlz78/18/2025 12:00 AM EDT30 SURG EXTRACTION ERUPTED TOOTH Wwjbiqt5310/08/2024 12:00 AM EDT12 SURG EXTRACTION ERUPTED JQVYZLkxrrxe16/18/2025 12:00 AM EDT28 SURG EXTRACTION ERUPTED PYKAUCazqqon57/18/2025 12:00 AM EDT25 SURG EXTRACTION ERUPTED HALLAHoxelab21/18/2025 12:00 AM EDT26 SURG EXTRACTION ERUPTED DQLGGFrmreks09/18/2025 12:00 AM EDTURINE HCG-IN UUYFSAQcmeznt12/18/2025 from Last 3 Months Results * URINE HCG-IN OFFICE (10/08/2024)ComponentValueRef RangeTest MethodAnalysis TimePerformed AtPathologist SignatureUrine Beta hCGNegativeNegativePositive Internal ControlPositivePositiveNegative Internal ControlNegativeNegative Specimen (Source)Anatomical Location / LateralityCollection Method / Volume Collection TimeReceived TimeUrineURINE SPECIMEN / Irjmrdy7410/08/2024 Narrative Authorizing ProviderResult TypeResult StatusMireindu Sofia [facility] BACK OFFICE LABSFinal Result from Last 3 Months Insurance
[2025-01-08 08:10] LABS: Lithium (Eskalith(R)), Serum 0.8 mmol/L (0.5-1.2)
== END 2025-01-07 06:33 | disposition home or self-care (01) ==
LOC: LAB 06:33
PROVIDERS: PCP Family Medicine; Visit Provider Family Medicine
DX: F31.9 Bipolar disorder, unspecified (principal); Z51.81 Encounter for therapeutic drug level monitoring; F43.10 Post-traumatic stress disorder, unspecified
CPT/HCPCS: 36415; 80178

== ENCOUNTER 2025-01-31 06:50 | Outpatient (OUT) | payer MEDICARE, MEDICAID, SELFPAY ==
--- OUTSIDE RECORDS SUMMARY | 2025-01-30 09:10 | XMS_ITS | Encounter Summary ---
Author Organization [facility] Address [address] [place] [address] Care Team Providers Care Back Padder Name Role Phone Ramone Herrera DO Unavailable [phone] Lio Muñoz MD Primary Care Provider Reason for Visit * ReasonCommentsToenail CareNon DM nail careFoot PainB/L foot pain , requesting an injection Encounter Details DateTypeDepartmentCare Team (Latest Contact Info)Pmghqgvdauc01/10/2025 9:10 AM ESTProcedure Visit [facility] [address] [place] [address] Bhanu Charlton, DPM FACFAS [address] [place] [address] Arthritis of foot, left (Primary Dx); Onychomycosis; Pain in left toe(s); Other enthesopathy of left foot and ankle; Pain in right toe(s) Social History Tobacco UseTypesPacks/DayYears UsedDateSmoking Tobacco: NeverSmokeless Tobacco: Never Tobacco Cessation:Counseling Given: Yes Alcohol UseStandard Drinks/WeekCommentsNever0 (1 standard drink = 0.6 oz pure alcohol)CommentsUnknownSex and Gender InformationValueDate RecordedSex Assigned at BirthNot on fileLegal RbdOsuhsl78/15/2023 10:14 PM EDTGender IdentityNot on fileSexual OrientationNot on filedocumented as of this encounter Last Filed Vital Signs Vital SignReadingTime TakenCommentsBlood Jmglbwjc708/6801/30/2025 9:12 AM EST Vqqcj649301/30/2025 9:12 AM ESTTemperature--Respiratory Rate--Oxygen Saturation-- Inhaled Oxygen Concentration--Qcteyf30.4 kg (197 lb)01/30/2025 9:12 AM ESTHeight 162.6 cm (5' 4 )01/30/2025 9:12 AM ESTBody Mass Index33.8101/30/2025 9:12 AM EST documented in this encounter Progress Notes * Bhanu Charlton DPM FACFAS - 01/30/2025 9:10 AM EST Images from the original note [...] but she states it does hurt in shoes left Foot Allergies: Allergies Allergen Reactions Amoxicillin Unknown Aripiprazole Unknown Chlorpheniramine Unknown Dextromethorphan Hbr Food Peterson Slaw Metyrosine Unknown Molindone Unknown Nalbuphine Unknown Sympathomimetics Valproic Acid Unknown Per OSH H+P 08/2018 Past Medical History: Active Ambulatory Problems Diagnosis Date Noted Attention deficit disorder with hyperactivity 05/25/2012 Bipolar disorder ([facility]) 05/04/2023 Essential hypertension 05/04/2023 Seizure disorder ([facility]) 05/04/2023 Pure hypercholesterolemia 05/04/2023 Anger reaction 07/14/2023 Convulsion ([facility]) 07/14/2023 Alteration of consciousness 07/14/2023 Development delay 07/14/2023 Resolved Ambulatory Problems Diagnosis Date Noted No Resolved Ambulatory Problems Past Medical History: Diagnosis Date ADHD (attention deficit hyperactivity disorder) Astigmatism Convulsions ([facility]) Developmental delay GERD (gastroesophageal reflux disease) Hypercholesterolemia Hyperopia Hypertension Impulse control disorder Intellectual disability Mental disorder Mood disorder OCD (obsessive compulsive disorder) Osteopenia PTSD (post-traumatic stress disorder) Seizures ([facility]) Medications: Current Outpatient Medications: acetaminophen [...] subungual debris. They were painful to palpation 11622 on the right 33423 on the left. VASC: DP /PT were nonpalpable bilateral. Capillary refill time < 3 seconds Digits 1-5 bilateral NEURO: [place] Ami 5.07 monofilament was intact B/L. Vibratory sensation was intact B/L Musculoskeletal: Muscle strength was +5 over 5 all intrinsic and extrinsic muscles tested. Exostosis noted at the 1st metatarsocuneiform joint mild tenderness noted with direct palpation bursal formation noted left foot Diagnostic ultrasound: DIAGNOSTIC ULTRASOUND 12 MEGAHERTZ LINEAR PROBE REVEALED: hypoechoic capsulitis bursitis noted about the 1st metatarsocuneiform joint with spur formation noted left ASSESSMENT 1. Arthritis of foot, left 2. Onychomycosis 3. Pain in left toe(s) 4. Other enthesopathy of left foot and ankle 5. Pain in right toe(s) PLAN The patient was educated on [...] 2% lidocaine plain and 1 cc of Michelle estone Soluspan 6 mg ml left foot the ultrasonic guidance. A 12 megahertz linear probe was used forthe injection in order to ensure exact placement and to avoid injection into underlying subcutaneous tissue. I discussed removal of the exostosis and soft tissue mass if the cortisone injection does not help. I did recommended shoe gear modifications she will be going to an fresh meat grader to have new shoes purchase follow up 2 weeks for reexamine. DAY Laura documented in this encounter Plan of Treatment DateTypeDepartmentCare Team (Latest Contact Info)Woqhlpoxpvp74/31/2025 10:00 AM ESTClinical Support [facility] [address] [place] [address] Bhanu Charlton DPM FACFAS [address] [place] [address] 04/10/2025 9:10 AM ESTProcedure Visit [facility] [address] [place] [address] Bhanu Charlton DPM FACFAS [address] [place] [address] documented as of this encounter Visit Diagnoses Diagnosis Arthritis of foot, left- Primary Onychomycosis Dermatophytosis of nail Pain in left toe(s) Other enthesopathy of left foot and ankle Pain in right toe(s) documented in this encounter Care Teams Team MemberRelationshipSpecialtyStart DateEnd Date Lio Muñoz MD [address] [place] [address] PCP - GeneralFamily Medicine11/09/23 Ramone Herrera DO [address] [place] [address] Referring PhysicianNeurology05/19/23documented as of this encounter
--- OUTSIDE RECORDS SUMMARY | 2025-01-31 06:52 | XMS_ITS | Clinical Summary ---
Author Organization [facility] Address [address] [place] [address] Care Team Providers Care Tombstone Setter Name Role Phone Ramone Herrera DO Unavailable [phone] Lio Muñoz MD Primary Care Provider [phone] Allergies Active AllergyReactionsCriticalityNoted OeptRbsswpjdFkjoglrpafnQqslkvg03/19/2013 VvilrdsldwkcNtecqfm16/19/6989GntlhbnihhcwlecbPhfsoey11/07/2024extromethorphan Hbr06/09/2012Food06/09/2012 Peterson Slaw KvajujduxoBoysrwi85/19/8495ThrziwtydBmkaiep45/19/2108TwcdedmppjShhfggv83/19/2013 Rzcsnibdgakcrguy49/19/2013Valproic TewrMinlbhw53/24/2019 Per OSH H+P 08/2018 Medications MedicationSigDispense QuantityRefillsLast [...] tablet Take 300 mg by mouth at zbdqtdf1904/27/2023ctive lamoTRIgine (LaMICtal) 200 MG tablet Take 1 [...] or split..Active Active Problems ProblemNoted DateDiagnosed DateAnger vukzekdg65/23/2024 Overview (07/14/2023): Seemingly stable per report from the patient's caregiver today. PLAN: - Follow closely with psychiatry and primary care provider for management Mnthnqptsi03/23/2024 Overview (07/14/2023): The patient has a history [...] mental status in the future Alteration of etogolmlarqbr80/23/2024 Overview (07/14/2023): The patient and caregiver deny any episodes of altered consciousness or awareness since the prior appointment at [facility]. Development delay07/14/2023 Overview (07/14/2023): Risk factor for seizures. Bipolar jhyxgyaj83/13/2024Essential kpzztaxcxnfg11/13/2024Seizure disorder 05/04/2023ure kmyxfzpreghvbuzaxcms88/13/2024ttention deficit disorder with vhyvnterzquzf67/04/2013 Overview (05/04/2023): Attention deficit disorder with hyperactivity Encounters DateTypeDepartmentCare DklcHjljwvdamax66/10/2025 9:10 AM ESTProcedure Visit [facility] [address] [place] [phone] Bhanu Charlton, DPM FACFAS Arthritis of foot, left (Primary Dx); Onychomycosis; Pain in left toe(s); Other enthesopathy of left foot and ankle; Pain in right toe(s)01/30/2025amboo flowsheet [facility] [address] [place] [address] Bhanu Charlton, DPM FACFAS 11/15/2024bstract [facility] [address] [facility] [place] [address] Bhanu Charlton, DPM FACFAS 11/14/2024 9:00 AM EDTProcedure Visit [facility] [address] [place] [phone] Bhanu Charlton, DPM FACFAS Onychomycosis (Primary Dx); Pain in left toe(s); Pain in right toe(s)11/14/2024amboo [facility] [address] [place] [address] Bhanu Charlton, DPM FACFAS from Last 3 Months Family History RelationNameStatusCommentsMotherAlive Social History Tobacco UseTypesPacks/DayYears UsedDateSmoking Tobacco: NeverSmokeless Tobacco: Never Tobacco Cessation:Counseling Given: Yes Alcohol UseStandard Drinks/WeekCommentsNever0 (1 standard drink = 0.6 oz pure alcohol)CommentsUnknownSex and Gender InformationValueDate RecordedSex Assigned at BirthNot on fileLegal VacJsqjec16/15/2023 10:14 PM EDTGender IdentityNot on fileSexual OrientationNot on file Last Filed Vital Signs Vital SignReadingTime TakenCommentsBlood Sayfnglo827/6801/30/2025 9:12 AM EST Gfnby044601/30/2025 9:12 AM ESTTemperature--Respiratory Zxcz676706/04/2024 10:33 AM EDTOxygen Yobblcoymw54%06/04/2024 10:33 AM EDTInhaled Oxygen Concentration-- Aszupw63.4 kg (197 lb)01/30/2025 9:12 AM SDJWiuydq389.6 cm (5' 4 )01/30/2025 9:12 AM ESTBody Mass Index33.8101/30/2025 9:12 AM EST Plan of Treatment DateTypeDepartmentCare Team (Latest Contact Info)Ojsculoyzbx84/31/2025 10:00 AM ESTClinical Support [facility] [address] [place] [phone] Bhanu Charlton, DPM FACFAS [address] [place] [address] 04/10/2025 9:10 AM ESTProcedure Visit [facility] [address] [place] [phone] Bhanu Charlton, DPM FACFAS [address] [place] [address] Insurance Care Teams Team MemberRelationshipSpecialtyStart DateEnd Lio Muñoz MD [address] [place] [address] PCP - GeneralFamily Medicine11/09/23 Ramone Herrera DO [address] [place] [address] Referring PhysicianNeurology05/19/23
--- OUTSIDE RECORDS SUMMARY | 2025-01-31 06:52 | XMS_ITS | Clinical Summary ---
Author Organization [facility] Address [id number] [address] [place] [address] Care Team Providers Care Cartography Supervisor Name Role Phone Wanda Lio Kody SUN Primary Care Provider Allergies Active AllergyReactionsCriticalityNoted DyryOfuafvilAxdqghbtxlxh41/18/2024 Ywirvkqrriu41/18/5352Mfapboiana31/18/0433Vkivnfrcn23/18/1771Snywpanobh44/18/2024 Other06/09/2012 Sympathomimetics Medications MedicationSigDispense QuantityRefillsLast FilledStart DateEnd [...] DAY NEEDED FOR NASAL CONGESTION AND COUGH WYYJOOT16/11/2025Active Active Problems ProblemNoted DateDiagnosed DateMass of right nnrwub2908/08/2024reast skin changes 08/08/20248552Seubloczqflx02/05/2024 Encounters DateTypeDepartmentCare AtgtUaydgnpqnxw46/30/2025 11:00 AM EDTOffice Visit [facility] [address] [place] [address] Abby Bauman PA Cellulitis of right breast (Primary Dx)11/20/2024Telephone [facility] [address] [place] [address] Luz Marina Nunez LPN 11/20/2024Travelfrom Last 3 Months Social History Tobacco UseTypesPacks/DayYears UsedDateSmoking Tobacco: NeverSmokeless Tobacco: Never Tobacco Cessation:Counseling Given: Not Answered Alcohol UseStandard Drinks/WeekCommentsNever0 (1 standard drink = 0.6 oz pure alcohol)CommentsNoSex and Gender InformationValueDate RecordedSex Assigned at BirthNot on fileLegal JqoIxaign04/07/2024 12:38 PM ESTGender IdentityNot on fileSexual OrientationNot on file Last Filed Vital Signs Vital SignReadingTime TakenCommentsBlood Vnfzywbp702/9111/20/2024 10:58 AM EDT Nnyyo4193/30/2025 10:58 AM EDTTemperature--Respiratory Iest657311/20/2024 10:58 AM EDTOxygen Dlvgazbkdc331%07/28/2023 2:07 PM EDTInhaled Oxygen Concentration-- Bsdtdg77.4 kg (164 lb)11/20/2024 10:58 AM KLSNkonzh952.8 cm (5' 4.49 )11/20/2024 10:58 AM EDTBody Mass Index27.7311/20/2024 10:58 AM EDT Plan of Treatment Health MaintenanceDue DateLast DoneCommentsDepression Pbtrnlirs62/14/1999Adult BMI Follow Up Plan2004COVID-19 Vaccine ( season)2024 12/08/2023, 12/08/2022, 12/09/2021, Additional history existsInfluenza Vaccine /, 12/08/2022, 12/09/2021, Additional history existsAdult BMI Jlxjcfzrk06Tobacco Xvvaisiou47Pap Smear /DTaP,Tdap and Td Vaccines (7 - Td or Tdap)11/11/2029 11/12/2019, 11/29/2001, 12/03/1991, Additional history exists Medical Devices Not on file Insurance * Guarantor: Migdalia ConnellyAccogian TypeRelation to PatientDate of BirthPhoneBilling AddressPersonal/JwhbtjCcdc58/[birth year]/[address] [address] Care Teams Team MemberRelationshipSpecialtyStart DateEnd Date Lio Muñoz DO [address] [place] [address] [facility]
--- OUTSIDE RECORDS SUMMARY | 2025-01-31 06:52 | XMS_ITS | Clinical Summary ---
Author Organization [facility] Address [address] [facility] [place] [address] Care Team Providers Care Lease Out Man Name Role Phone Unavailable Primary Care Provider Unavailabl e Source Comments The following information is NOT included in Care Everywhere downloads:Psychiatric notes, ECG results, Cardiac Rehab notes, Pulmonary Function notes, data from SmartForms (includes but not limited toPregnancy data,audiograms, eye exams, pre-surgical evaluation notes, well-child exam data).[facility] Allergies Active AllergyReactionsCriticalityNoted PvcdFscqdkzbYvkbsxl68/19/2013moxicillin 06/09/2012Valproic Acid09/13/2018 Per OSH H+P 08/2018 Food06/09/2012 Peterson Slaw Omozryydpu00/19/4626Jvlhihkfk27/19/1844Bxqxgaghec80/19/2013Sympathomimetics 06/09/2012Dextromethorphan Hbr06/09/2012 Medications MedicationSigDispense QuantityRefillsLast FilledStart DateEnd [...] AM EDT5Active Active Problems ProblemNoted DateDiagnosed DateDissociative oaluihbd68/11/2024Impulse control nugdvear76/11/2024Gastroesophageal reflux xxvjbry2602/01/20242449Ixsckuya88/11/2024 Posttraumatic stress /08/2024ipolar zqxpapzw73/03/2024Caries 09/05/2018 Overview (09/05/2018): Added automatically from request for surgery [id number] Dental decay08/26/2016 Overview (08/26/2016): Added automatically from request for surgery [id number] Unspecified dental cgrymq6506/09/2012Chronic periodontitis, drvauwwrcvn90/19/2013 Unconfirmed aiefioupt49/19/2013Moderate intellectual /04/2013 Attention deficit hyperactivity disorder (ADHD)05/25/2012 Overview (06/03/2018): Attention deficit disorder with hyperactivity Immunizations ImmunizationAdministration DatesNext DueDTP (CVX=01)09/06/1988,1986, 1986,1986Hep B (peds/adol, 3-dose) (CVX=08)05/04/2001,11/10/2000, 10/10/2000Hib, unspecified formulation (CVX=17)01/23/1988Influenza, injectable, quadrivalent, preservative (NHG=468)12/15/2016Influenza, injectable, quadrivalent, preservative free (BTP=564)12/17/2020,11/28/2019,11/30/2017, 12/12/2014Influenza, injectable, trivalent, preservative (BGB=401)11/10/2010MMR, Gdaxvbt-Ypbjo-Kbqafxg (CVX=03)05/30/1998,04/30/1987Meningococcal conjugate (MCV4,Men-ACWY), Menactra (MCV4P) (SBP=991)07/07/2006Pfizer Monovalent (12+ yrs) SARS-COV-2 (COVID-19) vaccine, mRNA, spike protein, LNP, pres. free, 30mcg/0.3mL dose (JSR=306)03/25/2020,1Polio, oral (OPV) (CVX=02)12/03/1991, 09/06/1988,1986,1986Td (adult), unspecified formulation (DLY=744) 11/29/2001,12/03/1991Tdap (TXM=859)11/12/2019 Social History Tobacco UseTypesPacks/DayYears UsedDateSmoking Tobacco: NeverSmokeless Tobacco: NeverAlcohol UseStandard Drinks/WeekCommentsNever0 (1 standard drink = 0.6 oz pure alcohol)Substance UseTypesUse/WeekCommentsNeverCommentsNoSex and Gender InformationValueDate RecordedSex Assigned at BirthNot on fileLegal Sex Lfkljw7301/12/2012 4:11 PM ESTGender IdentityNot on fileSexual OrientationNot on file Last Filed Vital Signs Vital SignReadingTime TakenCommentsBlood Ntkjkqey225/8908 10:00 AM EDTok for DC per Dr. Moralez, pt will take home BP tjwfUtjoo77747/18/2025 10:00 AM EDT Gfkihrvoynj30.6 ??C (97.9 ??F)10/08/2024 10:00 AM EDTRespiratory Rate17 10/08/2024 10:00 AM EDTOxygen Nhsjpnjpfi43%10/08/2024 10:00 AM EDTInhaled Oxygen Concentration--Mcjkwj33.6 kg (182 lb)10/08/2024 7:13 AM ZRHQjvmpr416.1 cm (5' 5 )10/08/2024 7:13 AM EDTBody Mass Index30.29010/08/2024 7:13 AM EDT Plan of Treatment Health MaintenanceDue DateLast DoneCommentsAnnual Wellness Visit (G0438) 02/21/1999HIV Test2001Hepatitis C Rnpkoftu66/14/2005Hepatitis A (HAV) Vaccine (optional start 19+ years)2005Pap Smear07/05/2007HPV Vaccine (optional start 27-45 years)2013COVID-19 Vaccine ( season) , 12/17/2020, 03/25/2020, Additional history existsInfluenza Vaccine (#1)/, 11/28/2019, 11/30/2017, Additional history existsDental Oral Exam/, 12/15/2023, 3Dental Psvlyxvurbt64/19/202608/Dental X-Ray: Oarxtiepb31/, 12/15/2023Tetanus (Td or Tdap) Qftarwg64, 11/29/2001, 12/03/1991Shingles (RZV) Vaccine (1 of 2)2036Hepatitis B (HBV) Vaccine Vdobqgfym49/14/2002, 11/10/2000, 10/10/2000Tdap EgomxveZjhnahign35/21/2020 Mammography (shared decision-making, age 35-39)Jqnkyyqib16/19/2025Mammography Qxpmosbaxwtv32/19/2025, 08/09/2024Pneumococcal Vaccine(s)Aged OutNo longer eligible based on patient's age to complete this topic Procedures Procedure NamePriorityDate/TimeAssociated DiagnosisCommentsPROPHY ADULT 14 & HZCQOHbzugda66/18/2025 12:00 AM EDTCOMPREHENSIVE YFLPOvrwmhr75/18/2025 12:00 AM EDTfrom Last 3 Months or Most Recently Relevant to Health Maintenance Insurance * Guarantor: Migdalia Connelly EAccount TypeRelation to PatientDate of BirthPhone Billing AddressPersonal/ZgqsooSxxa08/14/[address] [address]
--- OUTSIDE RECORDS SUMMARY | 2025-01-31 06:52 | XMS_ITS | Encounter Summary ---
Author Organization [facility] Address [address] [place] [address] Care Team Providers Care Dye Stand Loader Name Role Phone Ramone Herrera DO Unavailable [phone] Lio Muñoz MD Primary Care Provider Encounter Details DateTypeDepartmentCare Team (Latest Contact Info)Leyquajktck23/10/2025amboo flowsheet [facility] [address] [place] [address] Bhanu Charlton, DPM FACFAS [address] [place] [address] Social History Tobacco UseTypesPacks/DayYears UsedDateSmoking Tobacco: NeverSmokeless Tobacco: NeverAlcohol UseStandard Drinks/WeekCommentsNever0 (1 standard drink = 0.6 oz pure alcohol)CommentsUnknownSex and Gender InformationValueDate Recorded Sex Assigned at BirthNot on fileLegal AauGpicsh16/15/2023 10:14 PM EDTGender IdentityNot on fileSexual OrientationNot on filedocumented as of this encounter Plan of Treatment DateTypeDepartmentCare Team (Latest Contact Info)Nxhhptqejto53/31/2025 10:00 AM ESTClinical Support [facility] [address] [place] [address] Bhanu Charlton, DPM FACFAS [address] [place] [address] 04/10/2025 9:10 AM ESTProcedure Visit [facility] [address] [place] [address] Bhanu Charlton, DPM FACFAS [address] [facility] [place] [address] documented as of this encounter Visit Diagnoses Not on filedocumented in this encounter Care Teams Team MemberRelationshipSpecialtyStart DateEnd Date Lio Muñoz MD [address] [place] [address] PCP - GeneralFamily Medicine11/09/23 Ramone Herrera DO [address] [place] [address] Referring PhysicianNeurology05/19/23documented as of this encounter
--- OUTSIDE RECORDS SUMMARY | 2025-01-31 06:53 | XMS_ITS | CCD ---
Author Organization [facility] CliniSymo Care Team Providers Care Machine Sizer Name Role Phone SYSTEM, PROVIDER NOT IN [...] Care Unavailable LIO MUÑOZ Primary Care Physician [phone] LIO MUÑOZ Attending Unavailable MUÑOZ, LIO Admitting Unavailable MUÑOZ, LIO Attending Unavailable MUÑOZ, LIO Admitting Unavailable NON STAFF Primary Care Provider Unavailabl e IMAN Amanda Emergency Provider [phone] DO Jass Yaneyda Admit Provider DO Arvind Regan Attending Provider IMAN Amanda Emergency Provider DO Jass Yazid Admit Provider DO Rico Romero Attending Provider DO Lio Muñoz Primary Care Provider DO Titi Terry Emergency Provider ЕленаnjRamone Mcguire DO Unavailable [phone] Lio Muñoz MD Primary Care Provider [phone] Unavailable Primary Care Provider Unavailabl e Unavailable Primary Care Provider Unavailabl e Sharon DO, Christopher Unavailable MuñozLio aggarwal DO Primary Care Provider TEOFILO, [...] Primary Care Unavailable Sharon DO, Christopher Unavailable [phone] LIZANDRO VERONICA Attending Unavailable PROVIDER, UNKNOWN Admitting [...] MUÑOZ, LIO A Primary Care Unavailable Rashid PANTOGRAPHER-TURKISH RUBBER-CMigdalia Attending Provider NON STAFF Primary Care Provider Unavailvarsha e Allergies Allergy ClassificationReported Allergen(s)Allergy TypeDate of OnsetReaction(s) FacilityAdrenergic Agonists (1 source)PseudoephedrineDrug Bkockwi67-12-1959Dbvxutw ReactionCity HospitalARIPiprazole (1 source)ARIPiprazoleDrug Gdtmetf28-99-9078Hibwrft ReactionCity HospitalChlorpheniramine (1 source)ChlorpheniramineDrug Khmqnqi53-10-0850Agxqwzg ReactionFirTriHealth Bethes[facility] Butler HospitalDextromethorphan (1 source)DextromethorphanDrug Izpthzm38-84-8711Dzlcuan ReactionCity HospitalguaiFENesin (1 source)guaiFENesinDrug Iafmehp79-65-9426Mdmhxdg ReactionCity HospitalmetyroSINE (1 source)metyroSINEDrug Stdibea17-99-2152Uhrrbdk ReactionCity HospitalMolindone (1 source)MolindoneDrug Fuerhea24-28-5387Irsyyej ReactionCity HospitalPenicillins (antibiotic) (1 source)AmoxicillinDrug Ivgcwzv55-61-5966Lcpaglv ReactionCity HospitalPhenylpropanolamine (1 source)PhenylpropanolamineDrug Dmpkrlr58-27-8336Apybifu ReactionCity HospitalValproate (1 source)ValproateDrug Lfpzbwd23-35-4776Acymudt [facility] (20 sources)Amoxicillin; Translations: [AMOXICILLIN]Drug Tsvkfkv35-08-3429 [facility] (20 sources)ARIPiprazole; Translations: [Abilify]Drug Gpzquli11-41-9471 [facility] Work Phone: (20 sources)Dextromethorphan; Translations: [DEXTROMETHORPHAN HBR]Drug Allergy 20-42-4928ManhaCswzsx (20 sources)metyroSINE; Translations: [METYROSINE]Drug Jealzqu50-41-7129Bjbvyhe [facility] (20 sources)Molindone; Translations: [MOLINDONE]Drug Otivhjv09-93-9271Vtgjkyc [facility] (20 sources)Nalbuphine; Translations: [NALBUPHINE]Drug Shlfzrh28-11-2551Canjyoj [facility] (20 sources)Valproate; Translations: [VALPROIC ACID]Drug Iuuqpcc82-29-3468 [facility] (20 sources)Food; Translations: [FOOD]Propensity to adverse reactions to drug 98-44-1106VmksdJbgidg (20 sources)Sympathomimetics; Translations: [SYMPATHOMIMETICS]Propensity to adverse reactions to fnbr42-45-5771Icjscxk [facility] (1 source)AmoxicillinDrug AllergyThe [facility] (1 source)metyroSINEDrug AllergyThe [facility] (1 source)MolindoneDrug AllergyThe [facility] (1 source)NalbuphineDrug AllergyThe [facility] (1 source)ValproateDrug AllergyThe [facility] (1 source)Vicks 44 Custom CareDrug allergy (disorder)[facility] (20 sources)ARIPiprazole; Translations: [ARIPIPRAZOLE]Drug Crzfqbl72-57-1422 [facility] (20 sources)ChlorpheniramineDrug Saiodaa05-76-0000VlesjyyEqpbahbvyCherrington Hospital (4 sources)DextromethorphanDrug Pmqugus40-01-4039Yeweiaj [facility] (4 sources)guaiFENesinDrug Emjosne48-51-3155NpjddpmMer[facility] Health [facility] (4 sources)PhenylpropanolamineDrug Btrpsdw97-59-9701Uydonxp [facility] (4 sources)PseudoephedrineDrug Miyluov42-66-1518Ryjmrmu [facility] (4 sources)ValproateDrug Mmknkji40-16-1892Ajtusvt [facility] (9 sources)metyroSINEDrug Vasrwmr62-44-8746AlpEmnbfk Health System (8 sources)Other; Translations: [OTHER]Propensity to adverse rqpwidybf21-69-3832 [facility] Medications Current Medications MedicationDrug Class(es)DatesSig (Normalized)Sig (Original)acetaminophen 500 mg oral tablet (20 sources)Start: 78-65-8089zhte 1 tablet by mouth every six hours as needed for painacetaminophen (TYLENOL) 500 MG tablet Take 1 Tablet by mouth every 6 hours as needed for Pain or Fever. 30 Tablet 10/08/2024 10:08 AM EDT 10/08/2024 ActiveStart: 10-08-2024 End: 79-26-8686891 mg, Oral, PACU ONCE PRN, Starting on Tue10/08/24 at 0803, Until Tue10/08/24 at 1402, Mild Pain (pain score 1,2,3), PACU NowStart: 39-29-1155ogdb 2 capsules by mouth twice daily as needed for painAcetaminophen 325 mg capsule Active 650 MG PO Twice daily as needed for fever or pain August 06, 2023 12:00am Complies with drug therapyStart: 18-22-9929nbmf 650 mg by mouth twice dailyAcetaminophen Active [...] 0.83 mg/ml inhalation solution (5 sources)beta2-Adrenergic AgonistStart: 12-77-6725hdus 1 dose by inhalation every six hours as neededalbuterol (PROVENTIL,VENTOLIN) 2.5 mg /3 mL (0.083 %) nebulizer solution INHALE 1 VIAL VIA NEBULIZER EVERY 6 HOURS NEEDED FOR 2 WEEKS 05/23/2024 Activeatomoxetine 60 mg oral capsule (20 sources)Norepinephrine Reuptake InhibitorStart: 12-47-7544auuw 1 capsule by mouth once daily in the morningStart: 91-04-3385oqny 1 capsule by mouth once daily in the eveningbusPIRone hydrochloride 10 mg oral tablet (4 sources)take 1 tablet by mouth twice dailybusPIRone (BUSPAR) 10 MG tablet Take 10 mg by mouth 2 times daily. Activecalcium carbonate 750 mg chewable tablet (20 sources)Start: 06-75-2504hthv 2 tablets by mouth every four hours as needed Calcium Carbonate Antacid (Tums Smoothies) 750 MG CHEW Take 2 Tablets by mouth every 4 hours as needed. 05/29/2023 ActiveStart: 52-23-9516oipt 1 tablet by mouth every four hours as neededcalcium carbonate 1500 mg / cholecalciferol 200 unt oral capsule (20 sources)Vitamin DStart: 74-59-3355uilt 1 capsule by mouth twice dailyStart: 93-98-6977stiw 1 tablet by mouth in the morningcalcium carbonate-vitamin D3 600 mg(1,500mg) -800 units tablet Take 1 tablet by mouth in the morning and 1 tablet before bedtime. 04/26/2023 ActiveStart: 28-48-3489mesm 1 tablet by mouth in the morningCalcium+D3 600-20 MG-MCG tablet Take 1 tablet by mouth in the morning and 1 tablet before bedtime. 04/26/2023 Activetake 1 tablet by mouth twice daily Calcium+D3 600-20 MG-MCG TABS Take 1 Tablet by mouth 2 times daily. Active calcium polycarbophil 625 mg oral tablet (20 sources)Start: 71-09-3458zyjg 1 tablet by mouth in the morningFIBER-LAX 625 mg tablet Take 1 tablet (625 mg total) by mouth in the morning. 07/21/2023 ActiveStart: 05-29-2023 End: 28-60-3649Xqqaqcl Polycarbophil (FIBER-LAX ORAL) Take by mouth. 09/21/2024 DiscontinuedCalcium Polycarbophil (FIBER-LAX ORAL) Take by mouth. ActiveCalcium Polycarbophil (FIBER-LAX ORAL) Take by mouth. 0 Fraila75 hr carBAMazepine 200 mg extended release oral tablet (20 sources)Mood StabilizerStart: 42-35-2074vdkg 1 tablet by mouth twice daily carBAMazepine (TEGRETOL XR) 200 MG SR tablet Take 1 Tablet by mouth 2 times daily. 09/21/2024 ActiveStart: 05-57-1652essx 1 tablet by mouth three times dailyStart: 21-98-9313kkgd 400 mg by mouth once daily in the evening Carbamazepine Active 400 MG PO Every evening May 29, 2023 12:00amStart: 04-27-2023 End: 13-95-3750pafc 1 tablet by mouth three times dailycarBAMazepine (TEGRETOL XR) 200 MG SR tablet Take 200 mg by mouth 3 times daily. 11/16/2023 09/21/2024 Discontinuedtake 1 capsule by mouth once daily in the eveningcarBAMazepine ER (CARBATROL) 100 MG CR capsule Take 100 mg by mouth daily. At 4 pm Active End: 43-26-3959ccak 1 tablet by mouth once dailycarbamazepine (TEGretol-XR) [...] 300 mg oral capsule (7 sources)Lincosamide AntibacterialStart: 61-45-2069nswhefasmfp (CLEOCIN) 300 mg capsule 08/05/2024 ActiveStart: 28-49-2745tphz 1 capsule by mouth three times dailyclindamycin (CLEOCIN) 300 MG capsule Take 1 Capsule by mouth 3 times daily for 7 days. 21 Capsule 07/14/2020 ActivecloNIDine hydrochloride 0.2 mg oral tablet (20 sources)Central alpha-2 Adrenergic AgonistStart: 69-69-2311mpho 1 tablet by mouth three times dailycloNIDine (Catapres) 0.2 MG tablet 1 (one) time each day at the same time Activedicyclomine hydrochloride 20 mg oral tablet (20 sources)AnticholinergicStart: 51-00-0739qjey 1 tablet by mouth every six hoursdicyclomine (BENTYL) 20 mg tablet Take 1 tablet (20 mg total) by mouth every 6 (six) hours. 07/21/2023 ActiveStart: 43-57-1762xtey 1 tablet by mouth twice dailydicyclomine (Bentyl) 20 MG tablet every 12 (twelve) hours Active docusate sodium 100 mg oral capsule (20 sources)Start: 68-49-1367tqvz 1 capsule by mouth twice daily as needed for constipationStart: 96-45-6198cvwz 2 capsules by mouth twice dailyStart: 66-96-0075ehge 200 mg by mouth twice dailyDocusate Sodium Active 200 MG PO Twice daily Jalyn 7th, 2024 12:00amDocusate Sodium (DSS) 100 MG capsule 1 (one) time each day at the same time Activetake 1 capsule by mouth three times daily docusate sodium (COLACE) 100 MG capsule Take 100 mg by mouth 3 times daily. ActiveLevonorgestrel-Ethinyl Estrad (20 sources)Progestin, Estrogen, Progestin-containing Intrauterine DeviceStart: 94-92-4474xbdu 1 tablet by mouth once dailyStart: 36-35-3093wwdk 1 tablet by mouth once dailyLevonorgestrel-Ethinyl Estrad [...] capsule (20 sources)Peroxisome Proliferator Receptor alpha AgonistStart: 47-78-7622kfoi 1 capsule by mouth once daily before breakfastfenofibrate micronized (LOFIBRA) 134 mg capsule Take 1 capsule (134 mg total) by mouth every morning before breakfast. 07/21/2023 ActiveStart: 83-49-7473nmmo 1 tablet by mouth at bedtime fluticasone propionate 0.05 mg/actuat metered dose nasal spray (20 sources)CorticosteroidStart: 10-32-3054twhw 1 spray(s) nasal route in the morningfluticasone propionate (FLONASE) 50 mcg/actuation nasal spray Administer 1 spray into each nostril in the morning. 05/29/2023 ActiveStart: 62-35-6232fxiu 1 spray(s) nasal route once daily as [...] mg/ml ophthalmic solution (5 sources)Non-Standardized Chemical AllergenStart: 65-49-3635uvnb 0.012-0.2 drop(s) into the eye(s) three times daily as uwuaov32 hr guaiFENesin 600 mg extended release oral tablet (5 sources)Start: 17-34-9955obns 1 tablet by mouth twice daily as needed for congestion and coughguaiFENesin (MUCINEX) 600 mg tablet extended release 12hr TAKE ONE TABLET BY MOUTH TWICE A DAY NEEDED FOR NASAL CONGESTION AND COUGH MUCINEX 06/01/2024 ActiveguanFACINE 2 mg oral tablet (20 sources)Central alpha-2 Adrenergic AgonistStart: 11-92-5366lxab 1 tablet by mouth once dailyguanFACINE (TENEX) 2 mg tablet Take 1 tablet (2 mg total) by mouth nightly. 05/29/2023 ActiveStart: 35-21-0053czrh 1 tablet by mouth three times dailytake [...] mg oral tablet (20 sources)Nonsteroidal Anti-inflammatory DrugStart: 04-19-6759obed 1 tablet by mouth every six hours as needed for painibuprofen (MOTRIN) 400 MG tablet Take 1 Tablet by mouth every 6 hours as needed for Pain. 90 Tablet2 10/08/2024 10:08 AM EDT 10/08/2024 ActiveStart: 55-24-1413tedq 1 tablet by mouth every six hours as neededibuprofen (ADVIL,MOTRIN) 200 mg tablet Take 1 tablet (200 mg total) by mouth every 6 (six) hours asneeded. 05/29/2023 ActiveStart: 65-10-7306hmnw 2 tablets by mouth every four to [...] oral tablet (20 sources)Mood Stabilizer, Anti-epileptic AgentStart: 58-35-5210ezdf 1 tablet by mouth in the morninglamoTRIgine (LaMICtal) 150 mg tablet Take 1 tablet (150 mg total) by mouth in the morning. 07/21/2023 ActiveStart: 33-05-3709xaoy 0.5 tablet by mouth in the morninglamoTRIgine (LaMICtal) 200 mg tablet Take 0.5 tablets (100 mg total) by mouth in the morning. 07/21/2023 ActiveStart: 23-71-1158yawn 1 tablet by mouth at bedtimeStart: 64-39-5175Fdyyl: 04-27-2023 take 1 tablet by mouth once daily in the morningStart: 74-76-1531hoox 2 tablets by mouth at bedtimelamoTRIgine (LaMICtal) 150 MG tablet Take 300 mg by mouth at bedtime 04/27/2023 Activetake 2 tablets by mouth once dailylamotrigine (LAMICTAL) 25 MG tablet Take 50 mg by mouth daily. Activeloperamide hydrochloride 2 mg oral tablet (20 sources)Opioid AgonistStart: 93-67-8025ckepuowaka (IMODIUM A-D) 2 mg tablet Take 1 tablet (2 mg total) by mouth as needed in the morning and 1 tablet (2 mg total) as needed at noon and 1 tablet (2 mg total) as needed in the evening. 05/29/2023 ActiveStart: 59-43-7594zbhz 1 tablet by mouth three times daily as neededloperamide (IMODIUM A-D) 2 mg tablet Take 1 tablet (2 mg total) by mouth 3 (three) times a day as needed. 05/29/2023 ActiveStart: 81-46-8122qprysiryfe 10 mg oral tablet (20 sources)Start: 37-68-9901etuf 1 tablet by mouth once dailymetoprolol tartrate 100 mg oral tablet (20 sources)beta-Adrenergic BlockerStart: 05-29-2023 End: 08-62-3258zgxc 1 tablet by mouth four times dailymetoprolol [...] mg oral tablet (20 sources)Leukotriene Receptor AntagonistStart: 15-34-3716vcpn 1 tablet by mouth once dailynaltrexone hydrochloride 50 mg oral tablet (4 sources)Opioid Antagonisttake 1 tablet by mouth once dailynaltrexone (DEPADE) 50 MG tablet Take 50 mg by mouth daily. ActiveOLANZapine 20 mg oral tablet (20 sources)Atypical AntipsychoticStart: 01-63-7994kfaw 1 tablet by mouth once dailyOLANZapine (ZyPREXA) 20 mg tablet Take 1 tablet (20 mg total) by mouth nightly. Total 30mg 07/21/2023 ActiveStart: 68-97-4246Mpwoj: 04-27-2023 End: 59-57-8862mjro 1 tablet by mouth once daily at bedtimeomeprazole 20 mg delayed release oral capsule (20 sources)Proton Pump InhibitorStart: 40-06-6488ioet 1 capsule by mouth once daily2 ml ondansetron 2 mg/ml injection (20 sources)Serotonin-3 Receptor AntagonistStart: 10-08-2024 End: 12-35-6949wsig 4 mg intravenously once as needed for nausea4 mg, Intravenous, PACU ONCE PRN, Starting on Tue10/08/24 at 0803, Until Tue10/08/24 at 1402, Nausea, Vomiting, PACU NowStart: 05-29-2023 End: 02-07-4316kfqo 1 tablet by mouth every six hours [...] 5 mg oral tablet (1 source)Opioid AgonistStart: 82-26-241129 mg, Oral, PRN, 1 dose, Starting on Tue10/08/24 at 0803, Until Discontinued, Moderate Pain (pain score 4,5,6), PACU Now24 hr paliperidone 6 mg extended release oral tablet (20 sources)Atypical AntipsychoticStart: 64-56-1688rfrs 1 tablet by mouth once daily in the morningpaliperidone (INVEGA) 6 mg 24 hr tablet Take 1 tablet (6 mg total) by mouth every morning. 07/21/2023 ActiveStart: 31-19-1661fqvp 1 tablet by mouth twice dailyStart: 39-33-1898zhuoatlqemof (Invega) 6 MG 24 hr tablet 1 tablet in the morning and 1 tablet before bedtime. 04/27/2023 Activepetrolatum 1 mg/mg topical ointment (5 sources)Start: 58-14-7579yvkftwcwylhy glycol 3350 89231 mg powder for oral solution (20 sources)Osmotic LaxativeStart: 67-18-5874pzjiidzqfqli glycol (GLYCOLAX) 17 gram/dose powder Take 17 g by mouth. 11/18/2023 ActiveStart: 05-75-4674pmubzozc 400 mg oral capsule (2 sources)Start: 90-79-1269Cslwtyda Husk (Metamucil) 0.4 gram capsule (1 source)Start: 96-90-6578Httjmggc Husk (Metamucil) 0.4 gram capsule Active 0.4 GM PO Daily August 06, 2023 12:00amraNITIdine 150 mg oral tablet (4 sources)Histamine-2 Receptor Antagonisttake 1 tablet by mouth twice daily ranitidine (ZANTAC) 150 MG tablet Take 150 mg by mouth 2 times daily. Epedew22 hr scopolamine 0.0139 mg/hr transdermal system (1 source)AnticholinergicStart: 10-08-2024 End: mg, Transdermal, STAT, 1 dose, On Tue10/08/24 at 0730, Pre-op Sennosides (Senna) 8.6 mg capsule (3 sources)Start: 50-66-3428cntz 2 capsules by mouth twice dailySennosides (Senna) 8.6 mg capsule Active 17.2 MG PO Twice daily May 29, 2023 12:00am sennosides, snf 8.6 mg oral tablet (20 sources)Start: 41-42-4340hyupeafeqh (Senokot) 8.6 MG tablet Twice daily 05/29/2023 ActiveStart: 80-30-9919wdev 2 capsules by mouth twice daily as needed for constipationsimethicone 250 mg oral capsule (3 sources)Start: 88-71-6351nucv 1 capsule by mouth twice daily as needed tacrolimus 0.001 mg/mg topical ointment (20 sources)Calcineurin Inhibitor ImmunosuppressantStart: 22-27-8461eodujblgde (Protopic) 0.1 % ointment Indications: Lip licking dermatitis Apply to affected areas bid prn when flared 60 g 11 12/09/2023 Activezolpidem tartrate 10 mg oral tablet (4 sources)gamma-Aminobutyric Acid-ergic AgonistStart: 48-56-6170jkpharfl (AMBIEN) 10 MG tablet 06/10/2020 Active Completed/Discontinued Medications MedicationDrug Class(es)DatesSig (Normalized)Sig (Original)aprepitant 40 mg oral capsule (1 source)Substance P/Neurokinin-1 Receptor AntagonistStart: 10-08-2024 End: 15-05-6427cyaz 1 dose by mouth once40 mg, Oral, ONCE, 1 dose, On Tue10/08/24 at 0730, Pre-opStart: 10-08-2024 End: 03-62-8127bwfg 1 dose by mouth once40 mg, Oral, ONCE, 1 dose, On Tue10/08/24 at 0730, Pre-opcalcium chloride 0.0014 meq/ml / potassium chloride 0.004 meq/ml / sodium chloride 0.103 meq/ml / sodium lactate 0.028 meq/ml injectable solution (3 sources)Start: 12-15-2023 End: 52-98-9888Xmascxgwnog, PRN CONTINUOUS, Starting on Melanie 12/15/23 at 0832, Until Melanie 12/15/23 at 0925dexmedetomidine 0.1 mg/ml injectable solution (3 sources)Central alpha-2 Adrenergic AgonistStart: 12-15-2023 End: 95-21-0038Dtstfoqpulv Push, PRN, Starting on Melanie 12/15/23 at 0834, Until Melanie 12/15/23 at 0925, Intra-opdiazePAM 5 mg oral tablet (5 sources)BenzodiazepineStart: 05-29-2023 End: 92-93-9941mvdj 1 tablet by mouth onceDiazepam 5 mg tablet Discontinued 5 MG PO As Directed May 29, 2023 12:00am August 06, 2023 9:27pm 1 hour prior to proceduredoxycycline hyclate 100 mg oral capsule (5 sources)Tetracycline-class DrugStart: 05-29-2023 End: 57-42-8192vnxi 1 capsule by mouth twice dailyDoxycycline Hyclate 100 mg capsule Discontinued 100 MG PO Twice daily May 29, 2023 12:00am August 06, 2023 9:27pm x 10 days, started on 05/28/23fluorouracil 50 mg/ml topical cream (5 sources)Nucleoside Metabolic InhibitorStart: 05-29-2023 End: 91-28-1240Xbkbopekukxq (Efudex) 5 % cream Discontinued 1 APPLIC TOPICAL Twice daily May 29, 2023 12:00am August 06, 2023 9:27pm1 ml glycopyrrolate 0.2 mg/ml injection (3 sources)Start: 12-15-2023 End: 31-09-4482Glljjmuvzde, PRN, Starting on Melanie 12/15/23 at 0834, Until Melanie 12/15/23 at 0925, Intra-op1 ml ketorolac tromethamine 30 mg/ml cartridge (3 sources)Nonsteroidal Anti-inflammatory Drug, Cyclooxygenase InhibitorStart: 12-15-2023 End: 53-87-8462Vuaxprtxuia Push, PRN, Starting on Melanie 12/15/23 at 0912, Until Melanie 12/15/23 at 0925midazolam 1 mg/ml injectable solution (3 sources)BenzodiazepineStart: 12-15-2023 End: 55-05-4611Zsukzegjeva, PRN, Starting on Melanie 12/15/23 at 0834, Until Melanie 12/15/23 at 0925, Intra-opmoxifloxacin 400 mg oral tablet (4 sources)Quinolone AntimicrobialStart: 06-01-2023 End: 45-49-4279ariv 1 tablet by mouth once dailyMoxifloxacin 400 [...] mg oral tablet (5 sources)Start: 05-29-2023 End: 45-68-1391lhbj 1 tablet by mouth once dailyPrednisone 50 [...] stress disorder; Translations: [Post-traumatic stress disorder, unspecified]Onset: 437997-58-5970IvkdmgnJswianogx-cyiqetu, conduct, and disruptive behavior disorders (20 sources)Attention deficit hyperactivity disorder; Translations: [Attention- deficit hyperactivity disorder, unspecified type]Onset: ChronicDevelopmental disorders (20 sources)Moderate intellectual disability; Translations: [Moderate intellectual disabilities]Onset: 290718-90-2092ImivwjzPqzdktokh of lipid metabolism (20 sources)Hypercholesterolemia; Translations: [Pure hypercholesterolemia, unspecified]Onset: 743566-22-3877VmgccrtZtiffxlus of teeth and jaw (20 sources)Chronic periodontitis; Translations: [Chronic periodontitis, unspecified]Onset: 724131-47-4119BanywqhUpapjhhr; convulsions (20 sources)Seizure disorder; Translations: [Epilepsy, unspecified, not intractable, without status epilepticus]Onset: hronic Epilepsy; convulsions (20 sources)Seizure; Translations: [Unspecified convulsions]Onset: 07-14-2023 12-53-4816IfihnctjWeulehmcxo disorders (11 sources)Gastroesophageal reflux disease; Translations: [Gastro-esophageal reflux disease without esophagitis]Onset: 489323-52-0165EqhckoqPazlmvurb hypertension (20 sources)Hypertensive disorder; Translations: [Essential (primary) hypertension]Onset: 311306-27-5559NslboogDmweryddqiawl symptoms and ill- defined conditions (5 sources)Unspecified abnormal findings in urine; Translations: [Other abnormal findings in urine]Onset: 15-36-8318GrnmrtvbFstgqimy; including migraine (14 sources)Headache; Translations: [Headache]Onset: EpisodicImpulse control disorders, NEC (11 sources)Impulse control disorder; Translations: [Impulse disorder, unspecified]Onset: 229962-82-8541WyvnmopUpsgijyeifjdh mental health disorders (11 sources)Dissociative disorder; Translations: [Dissociative and conversion disorder, unspecified]Onset: 013138-01-5339PixrusvKukc disorders (20 sources)Bipolar disorder; Translations: [Bipolar disorder, unspecified] Onset: 749493-29-1048TfhvdlsUdqziel (4 sources)Onychomycosis; Translations: [Tinea unguium]70-56-4509XzqerduhBwqgi bone disease and musculoskeletal deformities (3 sources)Exostosis of right foot; Translations: [Other specified disorders of bone, ankle and foot]59-50-6128TjgplpuxGkkhe connective tissue disease (4 sources)Pain of toe of right foot; Translations: [Pain in right toe(s)] 57-96-0101KfmcbcqwHsusn connective tissue disease (6 sources)Pain of toe of left foot; Translations: [Pain in left toe(s)] 27-62-2153ElvocsmsRdtzs connective tissue disease (3 sources)Enthesopathy of lower limb; Translations: [Other enthesopathy of right foot and ankle]86-30-0191EvfwkvqgKxauk connective tissue disease (2 sources)Pain in right foot; Translations: [Pain in right foot]08-07-2024 EpisodicOther gastrointestinal disorders (3 sources)Constipation; Translations: [Constipation, unspecified]08-06-2023 EpisodicOther nutritional; endocrine; and metabolic disorders (1 source)Body mass index 30+ - obesity; Translations: [Body mass index (BMI) 30.0-30.9, adult]88-33-6915LuulgfcXczta skin disorders (4 sources)Ingrowing nail; Translations: [Ingrowing nail]54-54-3961Divioceb Residual codes; unclassified (2 sources)Other specified health status; Translations: [Failure of outpatient treatment]12-55-8862IzvmfttsYijh and subcutaneous tissue infections (12 sources)Cellulitis of periorbital region; Translations: [Periorbital cellulitis]44-65-4252IinpjjvuXzfbhyxmylml (1 source)Medicare breast and PelvicOnset: 01-99-8231Pzofqjzrbyuy (1 source)New PatientOnset: 39-81-4661Aqxazxwenqqk (1 source)MassOnset: 08-09-2024 Past or Other Problems Problem ClassificationProblemDateDocumented DateEpisodic/ChronicAnxiety disorders (20 sources)Anger reaction; Translations: [Irritability and anger]Onset: 580953-34-7320QvtpurdxTfipmllzx of teeth and jaw (20 sources)Dental caries; Translations: [Dental caries, unspecified]Onset: 614397-09-2098GvdtmsqxZlvnw and electrolyte disorders (14 sources)Hyponatremia; Translations: [Hypo-osmolality and hyponatremia]Onset: 406171-99-6924QifietmcJpkdphqksyptk and screening for infectious disease (1 source)Encounter for screening for human papillomavirus (HPV); Translations: [ENC SCREENING HUMAN PAPILLOMAVIRUS]Onset: 98-29-6469ZogefhfaVgwkmqqtiwyp breast conditions (20 sources)Pain of breast; Translations: [Lump in right breast]Onset: 974934-77-9517DvulycsmYybrb nutritional; endocrine; and metabolic disorders (20 sources)Developmental delay; Translations: [Unspecified lack of expected normal physiological development in childhood]Onset: EpisodicOther screening for suspected conditions (not mental disorders or infectious disease) (20 sources)Possible ; Translations: [Encounter for test, result unknown]Onset: 449980-12-6399IpnetvxbGqock skin disorders (5 sources)Breast changes; Translations: [Changes in skin texture]Onset: [id number] skin disorders (1 source)Changes in skin texture; Translations: [Changes in skin texture]Onset: 43-63-7646IyaamqfcEfouffrs codes; unclassified (20 sources)Disturbance of consciousness; Translations: [Transient alteration of awareness]Onset: 028685-06-4713Zwkyicbq Results Test NameValueInterpretationReference RangeFacilityAnesthesia Postprocedure Evaluationon 76-88-4168Vucddvzefblrn Authentication Interface Message Text Anesthesia Postoperative Assessment: [...] ANESTHESIA NOTABLE EVENTS: No notable events documented.NormalThe [facility] Hospital SystemAnesthesia Preprocedure Evaluationon 20-94-8970Wfstkuqqkieet Authentication Interface Message Text Attestation signed by [...] decay) Endo (+) obesity (-) diabetes mellitus 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 The risks, benefits and alternatives were reviewed. Questions regarding anesthesia were answered. Patient and/or legal special service representative knows such anesthetics and procedures may be performed by Resident physicians, Certified Anesthesiologist Assistants, or Certified Nurse Anesthetists under the supervision of a physician. The patient /or the patient's legal special service representative agree with the plan for anesthesia. 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 [...] DENTAL RESTORATIONS; Surgeon: Bhavin Valdovinos DDS; Location: [facility]; Service: Dental CHOLECYSTECTOMY (2009) Per OSH H+P [...] Og Grant DDS Anesthesiologist: Kedar Moralez MD Hand Fretted Instrument Maker: Randi Rico MD; Enio eWlls MD DENTAL RESTORATIONS (Bilateral: Mouth) EXTRACTION, TOOTH [...] 09/05/2018 Added automatically from request for surgery [id number] Constipation Per OSH H+P 08/2018 Dental decay 08/26/2016 Added automatically from request for surgery [id number] Developmental delay Per OSH H+P 08/2018 Hormone [...] disease K21.9 Headache R51.9 Posttraumatic stress disorder F43.10[facility] SystemBrief Operative Noteon 21-78-2748Cvlyvaqegxyjk Authentication Interface Message TextBrief Operative Note PHE OR 3 Migdalia E Stephie 39 year old female Surgical Contact Serial Number: [id number] Preoperative Diagnosis: Pre-op Diagnosis * Caries [K02.9] [...] Posttraumatic stress disorder Procedures: Full mouth xrays [50307] Comprehensive exam [68205] Prophy [88191] Fluoride application [18976] Restorative [42438] Surgical extractions [71592] Surgeon(s): Surgeon(s): Og Grant DDS Staff: Citrus Picker Nurse: Rosanna Monroe RN Dental Resident: Risa Black DDS Anesthesia: General Anesthesiologist: Kedar Moralez MD Hand Fretted Instrument Maker: Randi Rico MD; Enio Wells MD Specimen(s): [...] by Risa Black DDS 10/08/2024 9:24 [facility] CENTERQuandoo Interval H AND P Noteon 51-78-7480Tscyntlyhwkgp Authentication Interface Message TextH AND P reviewed. [...] possible Risa Black DDS 10/08/2024 7:15 [facility] CENTERSilverLine Global SystemOP Noteon 46-93-8566Nydufcbsbumxr Authentication Interface Message TextOperative Note PHE OR 3 Migdalia Connelly 39 year old female Surgical Contact Serial Number: [id number] Preoperative Diagnosis: Pre-op Diagnosis * Caries [K02.9] [...] Posttraumatic stress disorder Procedures: Full mouth xrays [48420] Comprehensive exam [03223] Prophy [06963] Fluoride application [18481] Restorative [32202] Surgical extractions [09673] Surgeon(s): Surgeon(s): Og Grant DDS Staff: Citrus Picker Nurse: Rosanna Monroe RN Dental Resident: Risa [...] mg by mouth 2 times a day.NormalThe [facility] SystemProgress Noteson 27-20-4543Wmlrzkrbtyciy Authentication Interface Message Text----- Tuesday, October 08, 2024 at 9:47:45 AM ----- ----- Provider: Satinder Obrien DDS -- Clinic: [facility] ----- [place] notes, pt is ready for [...] Note Type: OP Note Status: Cosign Needed Supervisor Rework: Risa Black DDS (Resident) Cosign Required: Yes Operative Note PHE OR 3 Migdalia Connelly 39 year old female Surgical Contact Serial Number: [id number] Preoperative Diagnosis: Pre-op Diagnosis * Caries [K02.9] [...] Posttraumatic stress disorder Procedures: Full mouth xrays [19812] Comprehensive exam [82966] Prophy [52492] Fluoride application [46744] Restorative [56626] Surgical extractions [11501] Surgeon(s): Surgeon(s): Og Grant DDS Staff: Citrus Picker Nurse: Baillie, Rosanna, RN Dental Resident: Risa [...] daily. * lo (more content not included)...NormalThe [employer] SystemURINE HCG-IN OFFICEOrdered By: Artur Sinclair on 11-03-8329DML ( test) Ql (U)Negative NegativeMetroHealthNegative Internal ControlNegativeNegativeMetroHealthPositive Internal ControlPositivePositiveMetroHealthMetroHealthTelephone Encounteron 83-26-9880Qlwalaxfqzadu Authentication Interface Message TextDr. Chatman made aware that CBC and CMP from 05/03/24 received from [facility] and scanned into Prezma. Addendum: Dr. 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 [...] Neck Extension: FROM Mouth (more content not included)...NormalLicking Memorial Hospital SystemPatient Instructionson 87-53-5593Kgwjxlmbbqgmz Authentication Interface Message Text RECOMMENDATIONS: Patient was [...] alternative/herbal medication 10 days before surgery Brenden CasonCleveland Clinic South Pointe Hospital SystemProgress Noteson 08-28-2024 Construction Trades Contractor Authentication Interface Message TextNurse (LATASHA) was contacted for PAT AND OR Visit scheduled -- confirmed information with nurse , also informed nurse importance of receiving PSE call -- if not received surgery will be canceled ----- Wednesday, August 28, 2024 at 12:25:15 PM ----- ----- Provider: HANNAH Ramírez Dental-Heat Reader -- [place] -----NormalSamaritan HospitalUrine Cultureon 15-64-0528Ghpnlzql identified Cx Nom (U)<9,000 colonies/ml mixed bacterial skin contaminants 2 Days PERFORMED BY: [address] [address] PATHOLOGIST PROTEIN SPECIALIST CHARLENE BEDOYA M.D.[facility] Physician GroupComment on above: Performed By: #### CU[facility] #### [place] [address] USAMAMM DIAGNOSTIC BILATERAL W CADon 75-03-2197JWHM DIAGNOSTIC BILATERAL W CADMAMM DIAGNOSTIC BILATERAL W CAD MIGDALIA STEPHIE 1985 [id number], [id number] EXAM: MAMM DIAGNOSTIC BILATERAL W CAD, US [...] MD on 08/09/2024 11:36 AM [address] [facility] HospitalAnesthesia Postprocedure Evaluationon 14-73-6157Usgiovxijabmm Authentication Interface Message TextAnesthesia Postoperative Assessment: Vital [...] home. 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 The risks, benefits and alternatives were reviewed. Questions regarding anesthesia were answered. Patient and/or legal special service representative knows such anesthetics and procedures may be performed by Resident physicians, Certified Anesthesiologist Assistants, or Certified Nurse Anesthetists under the supervision of a physician. The patient /or the patient's legal special service representative agree with the plan for anesthesia. MHPATFORMNormWestern Massachusetts HospitalPositron SystemProgress Noteson 68-24-2551Qzssqrnvtuqwn Authentication Interface Message Text----- February at 10:34:06 AM ----- ----- Provider: Shelby Frias DMD -- [place] ----- PT. WAS SEEN IN [facility] UNDER TWILIGHT SEDATION WITH ANESTHESIA TEAM. Anesthesia diagnosis: Unspecified mental disorder- F09 and Other intellectual disabilities- F78 Dental diagnosis: Dental Caries, unspecified - K02.9 COMPOSITE BAHAI Patient is scheduled for [facility] on tooth #23 MFL and 24 DFL. Reviewed Medical History. Patient is ready for treatment. Topical Benzocaine gel applied at the injection site for 2 minutes. Administered 2 carpules of Lidocaine, 2% with Epinephrine 1:100,000,. Cotton roll isolation achieved. Decay/existing bahai removed, cavity prepared. Selectively etched enamel with 37% phosphoric acid, rinsed, and blot dried. OptiBond bowles applied and light-cured. Condensed packable composite shade A2 in light cured increments using Mylar strip and wedge. Finished with finishing burs, checked occlusion, verified proximal contacts and bahai was polished. Rinsed and suctioned intraorally, advised [...] ----- Provider: Shelby Frias DMD -- Clinic: [place] -----[place] Telephone Encounteron 80-12-4826Lvcvvdibrerns Authentication Interface Message TextAnesthesia consent obtained by Dr. Koch and scanned into Prezma.NormalUpper Valley Medical Center [employer] SystemPAT Call Historyon 55-30-7647Cxsddbzlehcjw Authentication Interface Message TextTelephone History Migdalia Connelly, [id number] 02/01/2024 Patient was identified by name and date of with Nurse Latasha from [place]. 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 Neuro/Psych (+) bipolar disorder, [...] DENTAL RESTORATIONS; Surgeon: Bhavin Valdovinos DDS; Location: [facility]; Service: Dental DENTAL RESTORATIONS N/A 09/15/2018 Procedure: DENTAL RESTORATIONS; Surgeon: Og Grant DDS; Location: [facility]; Service: Dental DENTAL RESTORATIONS Bilateral 07/14/2020 Procedure: DENTAL RESTORATIONS; Surgeon: Og Grant DDS; Location: [facility]; Service: Dental SOCIAL HISTORY: Social History Socioeconomic History Marital status: Single Tobacco Use Smoking status: Never Smokeless tobacco: Never Substance and Sexual Activity Alcohol use: Never Drug use: Never PAIN ASSESSMENT: Severity: 0 Location: N/A LABORATORY DATA: [facility] 10/24/2023 LABS TESTS REVIEWED: CXRay: No Chest [...] 2 MG ta (more content not included)...NormalThe [employer] SystemAddendum Noteon 28-71-9178Dqxoqtbbjcqiv Authentication Interface Message TextAddendum created 12/15/23 1134 by Orquidea Florez MD Clinical Note SignedNoRegional Medical Center [employer] SystemTranscription Aptidataation Interface Message TextAddendum created 12/15/23 1026 by Domingo Carrion APRN-CRNA Flowsheet accepted, LDA properties acceptedNoUniversity Hospitals Cleveland Medical CenterOhio Airships System Anesthesia Postprocedure Evaluationon 31-55-3356Eykrmeutfhpxb Authentication Interface Message TextAnesthesia Postoperative Assessment: Vital [...] home. 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 The risks, benefits and alternatives were reviewed. Questions regarding anesthesia were answered. Patient and/or legal special service representative knows such anesthetics and procedures may be performed by Resident physicians, Certified Anesthesiologist Assistants, or Certified Nurse Anesthetists under the supervision of a physician. The patient /or the patient's legal special service representative agree with the plan for anesthesia. [facility] CampusAnesthesia Transfer Of Beebe Medical Centeron 12-15-2023 Construction Trades Contractor Authentication Interface Message TextPatient recovered by GEM SETTER in room. Patient is awake, comfortable, and [...] DENTAL RESTORATIONS; Surgeon: Bhavin Valdovinos DDS; Location: [facility]; Service: Dental CHOLECYSTECTOMY (2009) Per OSH H+P 08/2018 DENTAL RESTORATIONS (09/15/2018) Procedure: DENTAL RESTORATIONS; Surgeon: Og Grant DDS; Location: [facility]; Service: Dental DENTAL RESTORATIONS (07/14/2020) Procedure: DENTAL RESTORATIONS; Surgeon: Og Grant DDS; Location: [facility]; Service: Dental Allergies: Abilify, Amoxicillin, Depakote [valproic acid], Food, Metyrosine, Moban [molindone], Nubain [nalbuphine], Sympathomimetics, and Vicks 44 cough relief [dextromethorphan hbr] Basic Operating Room Facts: * No surgeons listed * Anesthesiologist: Orquidea Florez MD GEM SETTER: Domingo Carrion APRN-GEM SETTER DENTAL VISIT Intraoperative Events: No acute event [...] of the report was received. Ian Soliz [facility] SystemBlood Attestationon 12-15-2023 Construction Trades Contractor Authentication Interface Message TextBlood Attestation: ATTESTATION OF INFORMED CONSENT FOR BLOOD: The transfusion of blood and/or blood components were discussed with the patient and/or legal special service representative. The risks, benefits and alternatives were reviewed. Questions regarding blood transfusions were answered. The patient /or the patient's legal special service representative agree with the plan for transfusion of blood and/or blood components.NormalThe [facility] SystemProgress Noteson 94-46-3094Mdqdcupblptnj Authentication Interface Message Text----- November at 9:52:24 AM ----- ----- Provider: Orlando Alejandro, Resident -- [place] ----- PT WAS SEEN IN [facility] UNDER TWILIGHT SEDATION WITH ANESTHESIA TEAM [...] status of dentition on the charting. COMPOSITE BAHAI Patient is scheduled for [facility] on tooth #26 surface B5. Topical Benzocaine gel applied at the injection site for 2 minutes. Administered 0.5 carpules of Lidocaine, 2% with Epinephrine 1:100,000,. Isolation achieved. Decay/existing bahai removed, cavity prepared. Selectively etched enamel with 37% phosphoric acid, rinsed, and blot dried. OptiBond bowles applied and light-cured. Condensed packable composite shade A2 in light cured increments. Finished with finishing burs, checked occlusion, verified proximal contacts and bahai was polished. SIMPLE EXTRACTION tooth # 7 [...] ----- Provider: Shelby Frias DMD -- [place]: [place] -----NormalThe [employer] System PAT Appt H AND Jaspreet 56-25-2973Owrxyrinbbnjc Authentication Interface Message Text Attestation signed by [...] Jones MD Pre-Admission Testing Consultation Migdalia Connelly, [id number] 38 year old Female 11/23/2023 Consult placed to [facility] due to significant PMH of HLD, HTN, seizures, moderate intellectual disability. [facility] Triage Risk Score Total Score: 3 2 Patient is on more than 2 antihypertension medications. 1 Patient has history of hyperlipidemia. Migdalia Connelly is scheduled for Dental [facility] Pre-Op diagnosis of: Dental Carries HISTORY OF PRESENT ILLNESS: Patient is a 38 year old female with a pmh of HLD, HTN, seizures, moderate intellectual disability. Patient is here for pre-admission optimization and education prior to surgery. RECENT ILLNESS: Serious illness or hospitalization within the last six months. No STOP BANG: STOP-BANG Row Name 11/23/23 9912 History of sleep apnea? Yes Snoring No [...] DENTAL RESTORATIONS; Surgeon: Bhavin Valdovinos DDS; Location: [facility]; Service: Dental DENTAL RESTORATIONS N/A 09/15/2018 Procedure: DENTAL RESTORATIONS; Surgeon: Og Grant DDS; Location: [facility]; Service: Dental DENTAL RESTORATIONS Bilateral 07/14/2020 Procedure: DENTAL RESTORATIONS; Surgeon: Og Grant DDS; Location: [facility]; Service: Dental Past Medical History and Review [...] mg by mouth d (more content not included)...NormalLicking Memorial Hospital SystemTelephone Encounteron 11-23-2023 Construction Trades Contractor Authentication Interface Message TextAnesthesia consent obtained and scanned into [employer]. Scheduled for surgery 12/15/2023.NormalThe [facility] SystemProgress Noteson 82-38-7685Ypgwnjyfmrche Authentication Interface Message TextParent/guardian/patient was contacted for PAT AND IV Sedation scheduled -- confirmed information with patient, also informed mom importance of going to PAT appointment -- if missed, IV Sedation will be cancelled, and you will be placed back on wait list 12/15/2023----- Tuesday, November 07, 2023 at 2:17:34 PM ----- ----- Provider: HANNAH Ramírez Dental-Heat Reader -- [place]: [place] -----[facility] SystemTranscription Aptidataation Interface Message TextParent/guardian/patient was contacted for PAT AND IV Sedation scheduled -- confirmed information with patient, also informed mom importance of going to PAT appointment -- if missed, IV Sedation will be cancelled, and you will be placed back on wait list 12/15/2023----- Tuesday, November 07, 2023 at 2:12:30 PM ----- ----- Provider: HANNAH Ramírez Dental-Heat Reader -- [place]: [place] -----[facility] SystemProess Noteson 08-85-7087Hoannikzvyrgk Aptidataation Interface Message Text----- Thursday, October 19, 2023 at 11:01:41 AM ----- ----- Provider: [id number] Veronica, Resident -- Clinic: [place] ----- LIMITED EXAM Patient presents for Emergency [...] consented to treatment today. Pt here with manager biostatistics to discuss IV sedation as a quicker [...] sedation. 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 Treatment request for IV sedation will be sent for the patient. Next Visit: IV sedation and appropriate treatment. ----- Signed on Thursday, October 19, 2023 at 1:27:08 PM ----- ----- Provider: Satinder Obrien DDS -- Clinic: [place] -----NormalThe [facility] Alanine aminotransferase [Enzymatic activity/volume] in Serum or PlasmaOrdered By: Titi Terry on 34-20-4533QLL [Catalytic activity/Vol]25 U/L7-52 City HospitalAlbumin [Mass/volume] in Serum or Plasma by Bromocresol green (BCG) dye binding methoOrdered By: Titi Terry on 09-89-9418Hjvxeoz BCG dye [Mass/Vol]4.0 g/dL3.5-5.7FUniversity Hospitals Portage Medical CenterAlkaline phosphatase [Enzymatic activity/volume] in Serum or PlasmaOrdered By: Titi Terry on 29-13-1767LYW [Catalytic activity/Vol]32 U/L34-104 City HospitalAspartate aminotransferase [Enzymatic activity/volume] in Serum or PlasmaOrdered By: Titi Terry on 07-98-8914CUW [Catalytic activity/Vol]24 U/T04-68BbhemaydxCity HospitalBacteria [Presence] in Urine by AutomatedOrdered By: HEBERT SILVA on 29-48-2678Vecdtaqk Auto Ql (U)2+ [HPF]None SeenCity HospitalBasophils Auto (Bld) [#/Vol]Ordered By: Titi Terry on 80-81-1700Cpxppwbnh (Bld) [#/Vol] 0.0 10*3/uL0.0-0.2FUniversity Hospitals Portage Medical CenterBasophils/100 WBC Auto (Bld) Ordered By: Titi Terry on 33-34-6461Udwzeyavb/100 WBC (Bld)0.3 %.City HospitalBilirubin Test strip Ql (U)Ordered By: HEBERT TEMP on 54-63-1381Khpcnusjn Ql (U)NegativeNegativeCity Hospital Bilirubin.direct [Mass/volume] in Serum or PlasmaOrdered By: Titi Terry on 40-67-4666Dwknksmxw.direct [Mass/Vol]0.10 mg/dL0.03-0.18FUniversity Hospitals Portage Medical CenterBilirubin.total [Mass/volume] in Serum or PlasmaOrdered By: Titi Terry on 75-54-6831Rwujcuwis [Mass/Vol]0.3 mg/dL0.3-1.0City HospitalCOVID CepheidOrdered By: Titi Terry on 08-06-2023 SARS-CoV-2 (COVID-19) Ab IA QlNegativeNegOhioHealth O'Bleness [facility] Comment on above:This is a duplicate Cepheid Xpert Xpress CoV-2/Flu/RSV Plus RNA by RT-PCR result to be used for statistical tracking purpose only.SARS-CoV-2 (COVID-19) RNA ROSENDO+probe Ql (Unsp spec)City HospitalCalcium [Mass/volume] in Serum or PlasmaOrdered By: Titi Terry on 08-06-2023 Calcium [Mass/Vol]8.8 mg/dL8.6-10.3FUniversity Hospitals Portage Medical CenterCarbon dioxide, total [Moles/volume] in Serum or PlasmaOrdered By: Titi Terry on 83-63-2844XZ3 [Moles/Vol]22.4 mmol/L21.0-31.0[facility] Chloride [Moles/volume] in Serum or PlasmaOrdered By: Titi Terry on 43-53-5822Oanuxncw [Moles/Vol]99 mmol/A27-430KykktiybqCity Hospital Color Auto (U)Ordered By: PROVIDER TEMP on 54-73-8535Nwlxi (U)YellowYellow City HospitalCreatinine [Mass/volume] in Serum or Plasma Ordered By: Titi Terry on 25-41-9647Dgcevzbkac [Mass/Vol]0.56 mg/dL 0.60-1.20City HospitalEosinophils Auto (Bld) [#/Vol]Ordered By: Titi Terry on 27-18-5028Ysiejkyafhn (Bld) [#/Vol]0.0 10*3/uL0.0-0.45 City HospitalEosinophils/100 WBC Auto (Bld)Ordered By: Titi Terry on 96-45-2268Ffzhmwnyzma/100 WBC (Bld)0.3 %.City HospitalEpithelial cells.non-squamous [#/area] in Urine sediment by Automated countOrdered By: PROVIDER TEMP on 69-21-5142Riwoczbvvr cells.non- squamous Auto (Urine sed) [#/Area]1-2 [HPF]None SeenCity HospitalEpithelial cells.squamous [#/area] in Urine sediment by Automated count Ordered By: PROVIDER TEMP on 12-79-0290Abcmlxzjbu cells.squamous Auto (Urine sed) [#/Area]10-19 [HPF]0-2FUniversity Hospitals Portage Medical CenterErythrocyte distribution width Auto (RBC) [Ratio]Ordered By: Titi Terry on 08-06-2023 Erythrocyte distribution width (RBC) [Ratio]13.0 %11.9-15.3FUniversity Hospitals Portage Medical CenterErythrocytes [#/area] in Urine sediment by Automated countOrdered By: PROVIDER TEMP on 97-78-0157LTG Auto (Urine sed) [#/Area]5-9 [HPF]0-4 City HospitalGlobulin Calc (S) [Mass/Vol]Ordered By: Titi Terry on 19-48-7375Huouwciy (S) [Mass/Vol]2.9 g/dLCity HospitalGlucose [Mass/volume] in Serum or PlasmaOrdered By: Titi Terry on 85-61-0303Mvkhsfx [Mass/Vol]116 mg/cR14-232ZtnlsjcisCity Hospital Comment on above:ADA recommended reference rangeRandom Glucose Reference Range is dependent on time and content of last meal. Glucose of more than 200 mg/dL in a nonstressed, ambulatory subject supports the diagnosisof Diabetes Mellitus. Glucose [Mass/volume] in Urine by Test stripOrdered By: PROVIDER TEMP on 42-25-2540Sqwoogo Test strip (U) [Mass/Vol]Normal mg/dLNormalCity HospitalHematocrit Auto (Bld) [Volume fraction]Ordered By: Titi Terry on 22-74-5385Jsnuycsmfs (Bld) [Volume fraction]32.9 %34.0-46.4FUniversity Hospitals Portage Medical CenterHemoglobin Test strip Ql (U)Ordered By: PROVIDER TEMP on 79-18-0298Icygtjttbd Ql (U)NegativeNegativeCity Hospital Hemoglobin [Mass/volume] in BloodOrdered By: Titi Terry on 08-06-2023 Hemoglobin (Bld) [Mass/Vol]11.4 g/dL11.8-15.4FUniversity Hospitals Portage Medical Center Hyaline casts [#/area] in Urine sediment by Automated countOrdered By: PROVIDER TEM on 46-47-0336Luksddw casts Auto (Urine sed) [#/Area]None [LPF]0-8City HospitalKetones Test strip Ql (U)Ordered By: PROVIDER TEMP on 78-13-2225Hjduxvg Ql (U)NegativeNegativeCity Hospital Leukocyte esterase [Presence] in Urine by Test stripOrdered By: PROVIDER TEMP on 87-44-1807Bbdlskmlj esterase Test strip Ql (U)2+NegativeCity HospitalLeukocytes [#/area] in Urine sediment by Automated countOrdered By: PROVIDER TEMP on 83-45-1038UCS Auto (Urine sed) [#/Area]10-19 [HPF]0-4 City HospitalLeukocytes [#/volume] corrected for nucleated erythrocytes in Blood by Automated counOrdered By: Titi Terry on 54-07-2707CXE corrected for nucl RBC Auto (Bld) [#/Vol]9.0 10*3/uL3.8-11.6 City HospitalLipase [Enzymatic activity/volume] in Serum or PlasmaOrdered By: Titi Terry on 39-37-5157Usvyar [Catalytic activity/Vol] 25.0 U/L11.0-82.0City HospitalLymphocytes Auto (Bld) [#/Vol] Ordered By: Titi Terry on 65-91-0437Oiqluypjjqc (Bld) [#/Vol]0.6 10*3/uL 1.00-4.8City HospitalLymphocytes/100 WBC Auto (Bld)Ordered By: Titi Terry on 40-60-5646Sxooahoelzx/100 WBC (Bld)6.2 %.[facility] Auto (RBC) [Entitic mass]Ordered By: Titi Terry on 31-87-9950CSZ (RBC) [Entitic mass]32.0 pg24.7-34.3FUC Medical CenterHC Auto (RBC) [Mass/Vol]Ordered By: Titi Terry on 03-06-1215WBBK (RBC) [Mass/Vol]34.8 g/dL32.0-35.0City HospitalMCV Auto (RBC) [Entitic vol]Ordered By: Titi Terry on 85-91-4755SSV (RBC) [Entitic vol]92.0 vX02-973HhdblwtmjCity HospitalMonocyte distribution width [Entitic volume] in Blood by AutomatedOrdered By: Titi Terry on 08-06-2023 Monocyte distribution width Auto (Bld) [Entitic vol]28.85 %0.00-20.00City HospitalComment on above:For adults in ED, MDW > 20.0 may be associated with a higher risk of sepsis during the first 12 hrs of hospital admissionMonocytes Auto (Bld) [#/Vol]Ordered By: Titi Terry on 08-06-2023 Monocytes (Bld) [#/Vol]0.4 10*3/uL0.0-0.8[facility] Monocytes/100 WBC Auto (Bld)Ordered By: Titi Terry on 08-06-2023 Monocytes/100 WBC (Bld)4.2 %.City HospitalMucus [Presence] in Urine by AutomatedOrdered By: PROVIDER TEMP on 01-41-8936Tjemf Auto Ql (U) Rare [LPF]City HospitalNeutrophils Auto (Bld) [#/Vol]Ordered By: Titi Terry on 08-25-6114Vzwuzmvrzcv (Bld) [#/Vol]8.0 10*3/uL1.8-7.7 City HospitalNeutrophils/100 WBC Auto (Bld)Ordered By: Titi Terry on 22-26-8800Nmcmvwbiwcv/100 WBC (Bld)89.0 %.City HospitalNitrite Test strip Ql (U)Ordered By: PROVIDER TEMP on 08-06-2023 Nitrite Ql (U)NegativeNegativeCity HospitalNo Panel InformationOrdered By: Titi Terry on 13-52-3437Aqhthwlxh GFR (CKD-EPI)> 60.0 mL/MinCity HospitalPharmacy Creatinine Clearance (Chem 142.49City HospitalNucleated erythrocytes [Presence] in Blood by Automated countOrdered By: Titi Terry on 54-80-4006Ynpyhoucs RBC Auto Ql (Bld)0.0 /100{WBC}0-0.5FUniversity Hospitals Portage Medical CenterPlatelet mean volume Auto (Bld) [Entitic vol]Ordered By: Titi Terry on 08-06-2023 Platelet mean volume (Bld) [Entitic vol]6.8 fL6.3-10.7FUniversity Hospitals Portage Medical CenterPlatelets Auto (Bld) [#/Vol]Ordered By: Titi Terry on 08-06-2023 Platelets (Bld) [#/Vol]294 10*3/jY784-367StlrfgrivCity Hospital Potassium [Moles/volume] in Serum or PlasmaOrdered By: Titi Terry on 19-72-9854Czgjbyhua [Moles/Vol]3.7 mmol/L3.5-5.1[facility] CenterProtein Test strip (U) [Mass/Vol]Ordered By: PROVIDER TEMP on 08-06-2023 Protein (U) [Mass/Vol]NegativeNegativeCity HospitalProtein [Mass/volume] in Serum or PlasmaOrdered By: Titi Terry on 08-06-2023 Protein [Mass/Vol]6.9 g/dL6.4-8.9City HospitalRBC Auto (Bld) [#/Vol]Ordered By: Titi Terry on 58-97-3266GPJ (Bld) [#/Vol]3.57 10*6/uL 3.60-5.00[facility] Hospitalerum or plasma albumin/globulin mass ratioOrdered By: Titi Terry on 48-01-1463Kwpvxax/Globulin [Mass ratio]1.4 {ratio}[facility] Hospitalerum or plasma anion gap determination Ordered By: Titi Terry on 83-75-6885Ikzjs gap [Moles/Vol]13.3 mmol/L 6.0-15.0[facility] Hospitalerum or plasma non-glucuronidated bilirubin measurement (mass/volume)Ordered By: Titi Terry on 08-06-2023 Bilirubin.indirect [Mass/Vol]0.2 mg/dLAdams County Hospitalodium [Moles/volume] in Serum or PlasmaOrdered By: Titi Terry on 08-06-2023 Sodium [Moles/Vol]131 mmol/H780-997RysucdssgAdams County Hospitalpecific gravity Test strip (U) [Rel density]Ordered By: PROVIDER TEMP on 08-06-2023 Specific gravity (U) [Rel density]1.0221.001-1.030City HospitalUrea nitrogen [Mass/volume] in Serum or PlasmaOrdered By: Titi Terry on 76-53-8776Crxs nitrogen [Mass/Vol]6 mg/dL7-25City HospitalUrine appearanceOrdered By: PROVIDER TEMP on 06-34-0204Eoywlkwrpu (U) CloudyClearFUniversity Hospitals Portage Medical CenterUrobilinogen Test strip (U) [Mass/Vol]Ordered By: PROVIDER TEMP on 00-84-7755Ssodyxpsvmry (U) [Mass/Vol] Normal mg/dLNormalCity HospitalWBC Auto (Bld) [#/Vol]Ordered By: Titi Terry on 02-17-2689DAQ (Bld) [#/Vol]9.0 10*3/uL3.8-11.6FUniversity Hospitals Portage Medical CenterpH Test strip (U)Ordered By: HEBERT TEMP on 08-06-2023 pH (U)6.5 [pH]5.0-9.0City HospitalAlanine aminotransferase [Enzymatic activity/volume] in Serum or PlasmaOrdered By: Rico Romero on 04-33-0192PGS [Catalytic activity/Vol]15 U/L7-52City HospitalAlbumin [Mass/volume] in Serum or Plasma by Bromocresol green (BCG) dye binding methoOrdered By: Rico Romero on 22-78-0007Kxzlnwa BCG dye [Mass/Vol]3.5 g/dL3.5-5.7FUniversity Hospitals Portage Medical CenterAlkaline phosphatase [Enzymatic activity/volume] in Serum or PlasmaOrdered By: Rico Romero on 41-20-7758NZF [Catalytic activity/Vol]42 U/F49-837ImfhhdyhmCity HospitalAspartate aminotransferase [Enzymatic activity/volume] in Serum or Plasma Ordered By: Rico Romero on 09-61-6605LNO [Catalytic activity/Vol]13 U/L 13-39City HospitalBand form neutrophils/100 WBC Manual cnt (Bld)Ordered By: Arvind Regan on 93-43-9849Rhqz form neutrophils/100 WBC (Bld)5 %0-5FUniversity Hospitals Portage Medical CenterBasophils Auto (Bld) [#/Vol]Ordered By: Arvind Regan on 89-59-1251Bglteximq (Bld) [#/Vol]N/[facility] HospitalBasophils/100 WBC Auto (Bld)Ordered By: Arvind Regan on 06-01-2023 Basophils/100 WBC (Bld)N/[facility] HospitalBilirubin.total [Mass/volume] in Serum or PlasmaOrdered By: Rico Romero on 06-01-2023 Bilirubin [Mass/Vol]0.2 mg/dL0.3-1.0City HospitalC reactive protein [Mass/volume] in Serum or PlasmaOrdered By: Rico Romero on 18-80-9577LXS [Mass/Vol]1.1 mg/dL0.0-0.5FUniversity Hospitals Portage Medical CenterCalcium [Mass/volume] in Serum or PlasmaOrdered By: Rico Romero on 06-01-2023 Calcium [Mass/Vol]8.9 mg/dL8.6-10.3FUniversity Hospitals Portage Medical CenterCarbon dioxide, total [Moles/volume] in Serum or PlasmaOrdered By: Rico Romero on 56-72-8044QB1 [Moles/Vol]26.6 mmol/L21.0-31.0City HospitalChloride [Moles/volume] in Serum or PlasmaOrdered By: Rico Romero on 74-82-4001Zyrhbxjs [Moles/Vol]102 mmol/C14-706MarvsmlahCity HospitalCreatinine [Mass/volume] in Serum or PlasmaOrdered By: Rico Romero on 76-61-5839Oeaodhsyhq [Mass/Vol]0.43 mg/dL0.60-1.20City HospitalEosinophils Auto (Bld) [#/Vol]Ordered By: Arvind Murdocksein on 15-04-3253Mxsntvxapkt (Bld) [#/Vol]N/[facility] Eosinophils/100 WBC Auto (Bld)Ordered By: Arvind Jass on 06-01-2023 Eosinophils/100 WBC (Bld)N/[facility] HospitalEosinophils/100 WBC Manual cnt (Bld)Ordered By: Arvind Jass on 64-12-7395Xpwonxbxjpn/100 WBC (Bld)4 %1-3FUniversity Hospitals Portage Medical CenterErythrocyte distribution width Auto (RBC) [Ratio]Ordered By: Arvind Murdocksein on 59-71-1166Gshmbnqwajr distribution width (RBC) [Ratio]13.7 %11.9-15.3FUniversity Hospitals Portage Medical CenterErythrocyte sedimentation rate by Photometric methodOrdered By: Rico Romero on 65-51-6798ENN Photometric method (Bld) [Velocity]30 mm/hr0-19City HospitalGlobulin Calc (S) [Mass/Vol]Ordered By: Rico Romero on 75-95-7596Wifzywoc (S) [Mass/Vol]3.0 g/dLCity Hospital Glucose [Mass/volume] in Serum or PlasmaOrdered By: Rico Romero on 30-38-3591Rhugtge [Mass/Vol]107 mg/bK28-135AjaqzvjxqCity Hospital Comment on above:ADA recommended reference rangeRandom Glucose Reference Range is dependent on time and content of last meal. Glucose of more than 200 mg/dL in a nonstressed, ambulatory subject supports the diagnosisof Diabetes Mellitus. Hematocrit Auto (Bld) [Volume fraction]Ordered By: Arvind Regan on 06-01-2023 Hematocrit (Bld) [Volume fraction]35.5 %34.0-46.4FUniversity Hospitals Portage Medical CenterHemoglobin [Mass/volume] in BloodOrdered By: Arvind Regan on 06-01-2023 Hemoglobin (Bld) [Mass/Vol]11.7 g/dL11.8-15.4FUniversity Hospitals Portage Medical Center Leukocytes [#/volume] corrected for nucleated erythrocytes in Blood by Automated counOrdered By: Arvind Regan on 92-14-9341RPK corrected for nucl RBC Auto (Bld) [#/Vol]10.1 10*3/uL3.8-11.6FUniversity Hospitals Portage Medical CenterLymphocytes Auto (Bld) [#/Vol]Ordered By: Arvind Regan on 87-10-2743Immzfekuqep (Bld) [#/Vol]N/[facility] HospitalLymphocytes/100 WBC Auto (Bld)Ordered By: Arvind Regan on 62-03-0876Obkbaxmslwz/100 WBC (Bld)N/[facility] HospitalLymphocytes/100 WBC Manual cnt (Bld)Ordered By: Arvind Regan on 28-82-5370Qeiljurgtfi/100 WBC (Bld)24 %18-42[facility] CampusH Auto (RBC) [Entitic mass]Ordered By: Yaneyda Jass on 13-42-2282HMF (RBC) [Entitic mass]31.0 pg24.7-34.3FUniversity Hospitals Portage Medical CenterMCHC Auto (RBC) [Mass/Vol]Ordered By: Arvind Jass on 74-13-8494RSEO (RBC) [Mass/Vol]33.0 g/dL 32.0-35.0City HospitalMCV Auto (RBC) [Entitic vol]Ordered By: Arvind Murdocksein on 81-19-2175YPM (RBC) [Entitic vol]93.9 nJ58-528ZnzaxvywgCity HospitalMonocytes Auto (Bld) [#/Vol]Ordered By: Arvind Murdocksein on 36-57-9219Hejrrbqnq (Bld) [#/Vol]N/[facility] Monocytes/100 WBC Auto (Bld)Ordered By: Arvind Murdocksein on 08-58-2263Oibilovul/100 WBC (Bld)N/[facility] HospitalMonocytes/100 WBC Manual cnt (Bld) Ordered By: Arvind Jass on 95-41-2325Cqzxyfxon/100 WBC (Bld)6 %2-11City HospitalMyelocytes/100 WBC Manual cnt (Bld)Ordered By: Arvind Murdocksein on 44-57-3305Orcxwzifcv/100 WBC (Bld)11 %0-0City HospitalNeutrophils Auto (Bld) [#/Vol]Ordered By: Arvind Murdocksein on 06-01-2023 Neutrophils (Bld) [#/Vol]N/[facility] HospitalNeutrophils/100 WBC Auto (Bld)Ordered By: neyda Murdocksein on 54-47-5682Liyfhxbclxg/100 WBC (Bld)N/A City HospitalNo Panel InformationOrdered By: Rico Romero on 54-63-3529Nabwfvnhp GFR (CKD-EPI)> 60.0 mL/MinCity HospitalPharmacy Creatinine Clearance (Oedb668.30City HospitalNucleated erythrocytes [Presence] in Blood by Automated count Ordered By: Arvind Regan on 52-99-4779Rrvvdsoqc RBC Auto Ql (Bld)N/AFUniversity Hospitals Portage Medical CenterPlatelet adequacy [Presence] in Blood by Light microscopy Ordered By: Arvind Regan on 41-51-7314Vqbgtjdaq LM Ql (Bld)IncreasedNormal City HospitalPlatelet mean volume Auto (Bld) [Entitic vol] Ordered By: Arvind Poncein on 67-99-7759Mcsjvsxp mean volume (Bld) [Entitic vol] 6.1 fL6.3-10.7FUniversity Hospitals Portage Medical CenterPlatelet morphology finding [Identifier] in BloodOrdered By: Arvind Regan on 69-39-1662Nrwtvcai morphology finding Nom (Bld)NormalNormCherrington HospitalPlatelets Auto (Bld) [#/Vol]Ordered By: Arvind Regan on 86-54-8018Klksudpir (Bld) [#/Vol]456 10*3/lL520-794FcclsopfoCity HospitalPotassium [Moles/volume] in Serum or PlasmaOrdered By: Rico Romero on 73-25-2811Kcsojbmjj [Moles/Vol]4.3 mmol/L3.5-5.1FUniversity Hospitals Portage Medical CenterProtein [Mass/volume] in Serum or PlasmaOrdered By: Rico Romero on 66-66-1356Zkzqjic [Mass/Vol]6.5 g/dL 6.4-8.9City HospitalRB Auto (Bld) [#/Vol]Ordered By: Arvind Regan on 82-25-9682UFR (Bld) [#/Vol]3.77 10*6/uL3.60-5.00[facility] morphologyOrdered By: Arvind Regan on 25-51-6260VFM morphology finding Nom (Bld)NormalNoSt. Charles Hospital Segmented neutrophils/100 WBC Manual cnt (Bld)Ordered By: Arvind Regan on 30-13-5394Vwgfngdtn neutrophils/100 WBC (Bld)51 %50-70[facility] Hospitalerum or plasma albumin/globulin mass ratioOrdered By: Rico Romero on 13-24-8256Mmazdoy/Globulin [Mass ratio]1.2 {ratio}[facility] Hospitalerum or plasma anion gap determinationOrdered By: Rico Romero on 27-31-5085Gnyha gap [Moles/Vol]11.7 mmol/L6.0-15.0 [facility] Hospitalodium [Moles/volume] in Serum or PlasmaOrdered By: Rico Romero on 80-91-5774Ulrqli [Moles/Vol]136 mmol/Y490-083 City HospitalUrea nitrogen [Mass/volume] in Serum or Plasma Ordered By: Rico Romero on 29-83-3371Ofvt nitrogen [Mass/Vol]9 mg/dL 7-25City HospitalWBC Auto (Bld) [#/Vol]Ordered By: Arvind Regan on 11-82-3718JGN (Bld) [#/Vol]10.1 10*3/uL3.8-11.6FUniversity Hospitals Portage Medical CenterLactate [Moles/volume] in Serum or PlasmaOrdered By: Anamaria Benton on 84-91-4906Bdnesfo [Moles/Vol]1.4 mmol/L0.5-2.2FUniversity Hospitals Portage Medical CenterMetamyelocytes/100 WBC Manual cnt (Bld)Ordered By: Arvind Regan on 77-02-9817Rpdgkarztjugtb/100 WBC (Bld)8 %0-0City HospitalNo Panel InformationOrdered By: Arvind Regan on 41-71-0315Rvqvhn for Pathologist ReviewOrdered path reviewCity HospitalPolychromasia [Presence] in Blood by Light microscopyOrdered By: Arvind Regan on 05-31-2023 Polychromasia LM Ql (Bld)SlightCity Hospital Promyelocytes/100 WBC Manual cnt (Bld)Ordered By: Arvind Regan on 05-31-2023 Promyelocytes/100 WBC (Bld)1 %0-0[facility] Hospitalerum or plasma trough vancomycin levelOrdered By: Arvind Regan on 48-30-6801Jcakadhxip trough [Mass/Vol]7.4 ug/mL10.0-20.0City HospitalComment on above:Last dose: -Basophils/100 WBC Manual cnt (Bld)Ordered By: Arvind Regan on 02-13-9413Gahmdtsai/100 WBC (Bld)0 %0-2FUniversity Hospitals Portage Medical Center Magnesium [Mass/volume] in Serum or PlasmaOrdered By: Arvind Regan on 18-98-9228Yukwuydjn [Mass/Vol]1.8 mg/dL1.9-2.7FUniversity Hospitals Portage Medical Center Vancomycin [Mass/volume] in Serum or Plasma --peakOrdered By: Arvind Regan on 62-74-2013Yviyrytmkf peak [Mass/Vol]14.1 ug/mL20.0-40.0City HospitalComment on above:Last dose: -Anisocytosis LM Ql (Bld)Ordered By: Venita Amanda on 94-58-0299Kmugmcdoxxyd Ql (Bld)SlightCity HospitalBacterial blood cultureOrdered By: Venita Amanda on 05-29-2023 Bacteria identified Cx Nom (Bld)NO GROWTH 5 DAYSCity HospitalBacteria identified Cx Nom (Bld)NO GROWTH 5 DAYSCity HospitalBand form neutrophils/100 WBC Manual cnt (Bld)Ordered By: Venita Amanda on 00-71-6923Obod form neutrophils/100 WBC (Bld)1 %0-5FUniversity Hospitals Portage Medical CenterBasophils Auto (Bld) [#/Vol]Ordered By: Venita Amanda on 95-58-8202Rmeijdfdn (Bld) [#/Vol]NMercy Health Allen Hospital Basophils/100 WBC Auto (Bld)Ordered By: Venita Amanda on 05-29-2023 Basophils/100 WBC (Bld)N/[facility] HospitalCalcium [Mass/volume] in Serum or PlasmaOrdered By: Venita Amanda on 84-48-1490Ukqhwvp [Mass/Vol] 9.0 mg/dL8.6-10.3FUniversity Hospitals Portage Medical CenterCarbon dioxide, total [Moles/volume] in Serum or PlasmaOrdered By: Venita Amanda on 26-97-5494MZ2 [Moles/Vol]24.6 mmol/L21.0-31.0City HospitalChloride [Moles/volume] in Serum or PlasmaOrdered By: Venita Amanda on 05-29-2023 Chloride [Moles/Vol]99 mmol/M33-490PtrtnktlnCity HospitalCreatinine [Mass/volume] in Serum or PlasmaOrdered By: Venita Amanda on 05-29-2023 Creatinine [Mass/Vol]0.55 mg/dL0.60-1.20[facility] Eosinophils Auto (Bld) [#/Vol]Ordered By: Venita Amanda on 05-29-2023 Eosinophils (Bld) [#/Vol]N/AFUniversity Hospitals Portage Medical CenterEosinophils/100 WBC Auto (Bld)Ordered By: Venita Amanda on 19-26-6092Icpfqfckmxf/100 WBC (Bld)N/A City HospitalErythrocyte distribution width Auto (RBC) [Ratio]Ordered By: Venita Amanda on 99-10-2903Afntflucekh distribution width (RBC) [Ratio]13.7 %11.9-15.3FUniversity Hospitals Portage Medical CenterGlucose [Mass/volume] in Serum or PlasmaOrdered By: Venita Amanda on 75-42-9138Doaktmd [Mass/Vol]163 mg/tQ77-202JhrltlwmuCity HospitalComment on above:ADA recommended reference rangeRandom Glucose Reference Range is dependent on time and content of last meal. Glucose of more than 200 mg/dL in a nonstressed, ambulatory subject supports the diagnosisof Diabetes Mellitus.Hematocrit Auto (Bld) [Volume fraction]Ordered By: Venita Amanda on 92-22-3010Efvfgftizr (Bld) [Volume fraction]35.6 %34.0-46.4FUniversity Hospitals Portage Medical CenterHemoglobin [Mass/volume] in BloodOrdered By: Venita Amanda on 47-51-6780Hunppuikdn (Bld) [Mass/Vol]11.8 g/dL11.8-15.4FUniversity Hospitals Portage Medical CenterHypochromia LM Ql (Bld)Ordered By: Venita Amanda on 59-34-2897Coiwgjjkogz Ql (Bld)Slight City HospitalLactate [Moles/volume] in Serum or Plasma Ordered By: Venita Amanda on 68-05-9863Vtakzxa [Moles/Vol]3.0 mmol/L0.5-2.2 City HospitalComment on above:Critical valueresult calledat 1423 on 05/29/23--- 05/29/23 1424 ---Lactic previously reported as: 3.0 *H mmol/LLeukocytes [#/volume] corrected for nucleated erythrocytes in Blood by Automated counOrdered By: Venita Amanda on 33-70-9259DYF corrected for nucl RBC Auto (Bld) [#/Vol]8.7 10*3/uL3.8-11.6FUniversity Hospitals Portage Medical Center Lymphocytes Auto (Bld) [#/Vol]Ordered By: Venita Amanda on 05-29-2023 Lymphocytes (Bld) [#/Vol]N/AFUniversity Hospitals Portage Medical CenterLymphocytes/100 WBC Auto (Bld)Ordered By: Venita Amanda on 97-28-8988Kjjefjitggk/100 WBC (Bld)N/A City HospitalLymphocytes/100 WBC Manual cnt (Bld)Ordered By: Venita Amanda on 57-43-2124Sycmziaozlb/100 WBC (Bld)23 %18-42[facility] Auto (RBC) [Entitic mass]Ordered By: Venita Amanda on 00-86-3889XRB (RBC) [Entitic mass]31.0 pg24.7-34.3FUniversity Hospitals Portage Medical CenterMCHC Auto (RBC) [Mass/Vol]Ordered By: Venita Amanda on 65-08-1949KOXR (RBC) [Mass/Vol]33.2 g/dL32.0-35.0[facility] CampusV Auto (RBC) [Entitic vol]Ordered By: Venita Amanda on 39-94-7805KFZ (RBC) [Entitic vol]93.2 qW88-995MspowkquoCity HospitalMetamyelocytes/100 WBC Manual cnt (Bld)Ordered By: Venita Amanda on 55-96-6086Wepbozbtufymgz/100 WBC (Bld)4 %0-0City HospitalMonocyte distribution width [Entitic volume] in Blood by AutomatedOrdered By: Venita Amanda on 57-80-3081Dxvyyeri distribution width Auto (Bld) [Entitic vol]18.14 %0.00-20.00City HospitalMonocytes Auto (Bld) [#/Vol]Ordered By: Venita Amanda on 71-30-0699Khhkrcndo (Bld) [#/Vol]N/[facility] Monocytes/100 WBC Auto (Bld)Ordered By: Venita Amanda on 05-29-2023 Monocytes/100 WBC (Bld)N/[facility] HospitalMonocytes/100 WBC Manual cnt (Bld)Ordered By: Venita Amanda on 93-69-4676Rjuxmxzdy/100 WBC (Bld) 1 %2-11City HospitalMyelocytes/100 WBC Manual cnt (Bld) Ordered By: Venita Amanda on 66-56-3484Zkxiqngxcw/100 WBC (Bld)12 %0-0 City HospitalNeutrophils Auto (Bld) [#/Vol]Ordered By: Venita Amanda on 33-38-7635Hqytpccczle (Bld) [#/Vol]N/[facility] HospitalNeutrophils/100 WBC Auto (Bld)Ordered By: Venita Amanda on 11-07-1670Kwssqzmglcq/100 WBC (Bld)N/[facility] HospitalNo Panel InformationOrdered By: Venita Amanda on 83-88-9583Adrolqklw GFR (CKD-EPI)> 60.0 mL/MinCity HospitalPharmacy Creatinine Clearance (Chem 149.21Ad[facility] County Hospitallides for Pathologist ReviewOrdered path reviewCity HospitalNucleated erythrocytes [Presence] in Blood by Automated countOrdered By: Venita Amanda on 33-85-8887Lerzksjks RBC Auto Ql (Bld)N/AFUniversity Hospitals Portage Medical CenterPlatelet adequacy [Presence] in Blood by Light microscopyOrdered By: Venita Amanda on 52-44-2434Roqctgmrf LM Ql (Bld)NormalNoSt. Charles HospitalPlatelet mean volume Auto (Bld) [Entitic vol]Ordered By: Venita Amanda on 56-32-9043Bgqtvaap mean volume (Bld) [Entitic vol]6.4 fL6.3-10.7FUniversity Hospitals Portage Medical CenterPlatelet morphology finding [Identifier] in BloodOrdered By: Venita Amanda on 84-22-9174Sdneftov morphology finding Nom (Bld)NormalNormCherrington HospitalPlatelets Auto (Bld) [#/Vol]Ordered By: Venita Amanda on 36-19-1102Whpubodjq (Bld) [#/Vol]403 10*3/kF366-311TokijnfyjCity HospitalPolychromasia [Presence] in Blood by Light microscopyOrdered By: Venita Amanda on 24-88-8081Gbtdqkstrfqzf LM Ql (Bld)SlightCity HospitalPotassium [Moles/volume] in Serum or PlasmaOrdered By: Venita Amanda on 07-60-1250Hcesbrwga [Moles/Vol]4.0 mmol/L3.5-5.1FUniversity Hospitals Portage Medical CenterRBC Auto (Bld) [#/Vol]Ordered By: Venita Amanda on 69-29-3198MKO (Bld) [#/Vol]3.82 10*6/uL3.60-5.00City HospitalRB morphology Ordered By: Venita Amanda on 44-62-3332LSO morphology finding Nom (Bld)N/A [facility] Hospitalegmented neutrophils/100 WBC Manual cnt (Bld) Ordered By: Venita Amanda on 53-08-0492Zbadqovxw neutrophils/100 WBC (Bld)59 % 50-70[facility] Hospitalerum or plasma anion gap determination Ordered By: Venita Amanda on 47-98-5393Zxgxd gap [Moles/Vol]TNPCity HospitalComment on above:Test not performedSerum or plasma free cefuroxime measurement (mass/volume)Ordered By: Arvind Regan on 05-29-2023 Cefuroxime free [Mass/Vol]NegativeNegativeCity Hospital Comment on above:Performed at: - [facility] [id number] Director: Tyrell Fernandez PhD, Phone: [phone] [Moles/volume] in Serum or PlasmaOrdered By: Venita Amanda on 72-67-6846Ptygcp [Moles/Vol]134 mmol/V823-010QiuvswyfzCity HospitalUrea nitrogen [Mass/volume] in Serum or PlasmaOrdered By: Venita Amanda on 51-08-7100Iaaf nitrogen [Mass/Vol]11 mg/dL7-25City HospitalWBC Auto (Bld) [#/Vol]Ordered By: Venita Amanda on 78-24-7085HIA (Bld) [#/Vol]8.7 10*3/uL 3.8-11.6FUniversity Hospitals Portage Medical CenterCarbamazepineOrdered By: SYSTEM SYSTEM on 61-77-4682Bscsmuki Lvl6.9 microgram/mLNormal4.0-12.0Remisol ChemComment on above:Performed By: #### [id number], [id number] #### [facility] [address], [place] [address]Cvfiljipc Orderon 95-48-4357Sckbfoydc Order [id number]#1.00TIFFNormalFishJohns Hopkins HospitalodiumOrdered By: SYSTEM SYSTEM on 46-53-6457Koshts [Moles/Vol]134 mmol/L Boy255-112Ljppwii ChemComment on above:Performed By: #### [id number], [id number] #### [facility] [address], [place] [address]TYPNHOMCAOnqmpid By: SYSTEM SYSTEM on 58-94-3298Lgfvjzfx Lvl8.7 microgram/mLNormal4.0 - 12.0 mcg/mLRemisol ChemSodium [Moles/Vol]123 mmol/LLow 135 - 145 mmol/LRemisol ChemCarbamazepineon 45-13-3899Lddqvovw Lvl8.7 microgram/mLNormal4.0-12.0[facility] City HospitalComment on above:Performed By: #### [id number], [id number] #### [facility] [address], [place] [address]Amfeqsext Orderon [id number] Order [id number]#1.00TIFF[address] Hospitalodiumon 88-41-0594Qlknyd [Moles/Vol]123 mmol/VUkx627-224PboptoSalem City HospitalComment on above:Performed By: #### [id number], [id number] #### [facility] [address], [place] [address]ZU (CLEAN/CATCH) [employer] ARCHITECT/MICRO IF IND.on 67-07-8874Fpbeifdkn Ql (U) NegativeNormalNEGATIVEHocking Valley Community HospitalComment on above:Performed By: #### UACSIND #### [facility] [address] [place] [address] Dr. Pio Kurtz (U)CLEARNormalCLEARHocking Valley Community HospitalComment on above: Performed By: #### UACSIND #### [facility] [address] [place] [address] Dr. Pio Velázquez (U)LT. YELLOWNormalYELLOWHocking Valley Community HospitalComment on above:Performed By: #### UACSIND #### [facility] [address] [place] [address] Dr. Pio MackGlucose Ql (U)NegativeNormalNEGATIVEHocking Valley Community HospitalComment on above:Performed By: #### UACSIND #### [facility] [address] [place] [address] Dr. Pio MackHemoglobin Ql (U)NegativeNormalNEGUniversity Hospitals [facility] Comment on above:Performed By: #### UACSIND #### [facility] [address] [address] [address] Pio Osheaones Ql (U)NegativeNormalNEGATIVEThe [facility] HospitalComment on above:Performed By: #### UACSIND #### [facility] [address] [place] [address] Dr. Pio MackLEUKOCYTESNegativeNormalNEGATIVEThe [facility] HospitalComment on above:Performed By: #### UACSIND #### [facility] [address] [place] [address] Dr. Pio Barkertrite Ql (U)NegativeNormalNEGATIVEHocking Valley Community HospitalComment on above:Performed By: #### UACSIND #### [facility] [address] [place] [address] Dr. Pio Posadas (U)7.5 [pH]Normal5-9The [facility] HospitalComment on above: Performed By: #### UACSIND #### [facility] [address] [place] [address] Dr. Pio MackSPEC GRAVITY1.415Zycgwd7.005-<=1.025The [facility] Community HospitalComment on above:Performed By: #### UACSIND #### [facility] [address] [place] [address] Dr. Pio May PROTEINNegativeNormalNEGATIVE/ TRACEThe [facility] Comment on above:Performed By: #### UACSIND #### [facility] [address] [place] [address] Dr. Pio Rivera MICRO INDNOT INDICATEDNormalThGalion Community HospitalComment on above:Performed By: #### UACSIND #### [facility] [address] [place] [address] Dr. Pio Melgozagen Qn (U)0.2 {Polina'U}/dLNormal0.2 - 1.0The [facility] HospitalComment on above:Performed By: #### UACSIND #### [facility] [address] [place] [address] Dr. Pio Quiñones ACOG PANEL 2: 30 to 66on 05-06-2022..NormalHocking Valley Community HospitalCommunson healthcare [facility] on above:Result Comment: Performed at: WBPerformed By: #### [id number] #### [facility] [address] [place] [address] Dr. Pio Baer Gdln ACOG Dmjwjru91-49RfqepnXlqMercy Health Fairfield HospitalComment on above:Performed By: #### [id number] #### [facility] [address] [place] [address] Dr. Pio MackDIAGNOSIS:CommentBucyrus Community Hospital on above: Result Comment: NEGATIVE FOR INTRAEPITHELIAL LESION OR MALIGNANCY. Performed at: WBPerformed By: #### [id number] #### [facility] [address] [place] [address] Dr. Pio Milner AptimaNegativeNormalNegativeHocking Valley Community HospitalCommunson healthcare cadillac hospital on above:Result Comment: This nucleic acid amplification test detects fourteen high-risk HPV types (16,18,31,33,35,39,45,51,52,56,58,59,66,68) without differentiation. Performed at: =GPerformed By: #### [id number] #### [facility] [address] [place] [address] Dr. Pio Milner Genotype ReflexCommentBlanchard Valley Health System Bluffton HospitalCommunson healthcare cad[facility] hospital on above:Result Comment: Criteria not met, HPV Genotype not performed. Performed at: WBPerformed By: #### [id number] #### [facility] [address] [place] [address] Dr. Pio MackMethodology:CommentBucyrus Community Hospital on above: Result Comment: This liquid based ThinPrep(R) pap test was screened with the use of an image guided system. Performed at: WBPerformed By: #### [id number] #### [facility] [address] [place] [address] Dr. Pio MackNote:CommentBucyrus Community Hospital on above:Result Comment: The Pap smear is a screening test designed to aid in the detection of premalignant and malignant conditions of the uterine cervix. It is not a diagnostic procedure and should not be used as the sole means of detecting cervical cancer. Both false-positive and false-negative reports do occur. . Performed at: WBPerformed By: #### [id number] #### [facility] [address] [place] [address] Dr. Pio MackPerformed by:CommentBlanchard Valley Health System Bluffton HospitalCommunson healthcare cad[facility] hospital on above: Result Comment: Mary Anne Poe, Live Games Dealer (ASCP) Performed at: WBPerformed By: #### [id number] #### [facility] [address] [place] [address] Dr. Pio MackSpecimen adequacy:CommentBucyrus Community Hospital on above:Result Comment: Satisfactory for evaluation. Endocervical and/or squamous metaplastic cells (endocervical component) are present. Performed at: WBPerformed By: #### [id number] #### [facility] [address] [place] [address] Dr. Pio Mack Vital Signs Date TimeVital SignValuePerforming KbvfcabfvPvtpivpu74-45-8074 09:03-0400Body wcxeqg537.83 Juankapil Mike PANTOGRAPHER-TURKISH RUBBER-C Work Phone: 1([phone] [place], [place] 7608810-29-2025 09:03-0400 Body mass index (BMI) [Ratio]31.4 kg/q3BickpMigdalia Mike PANTOGRAPHER-TURKISH RUBBER-C Work Phone: 1(560)032-[address] [place], [place] 7608810-29-2025 09:03-0400 Body .36 kgriley Mike PANTOGRAPHER-TURKISH RUBBER-C Work Phone: 1(751)521-[address] [place], [place] 7608810-29-2025 09:03-0400 Diastolic blood obvxijny96 mm[Hg]Migdalia Rashid PANTOGRAPHER-TURKISH RUBBER-C Work Phone: 1(653)060-[address] [place], [place] 7608810-29-2025 09:03-0400 Heart rate67 /Rahel Mike PANTOGRAPHER-TURKISH RUBBER-C Work Phone: [facility]10-29-2025 09:03-0400 Respiratory rate16 /minSarah Rashid PANTOGRAPHER-TURKISH RUBBER-C Work Phone: [facility]10-29-2025 09:03-0400 SaO2% (BldA) [Mass fraction]98 %Migdalia Mike PANTOGRAPHER-TURKISH RUBBER-C Work Phone: [facility]10-29-2025 09:03-0400 Systolic blood ksdkrzux253 mm[Hg]Migdalia Mike PANTOGRAPHER-TURKISH RUBBER-C Work Phone: [facility]09-30-2025 10:58-0400 Body .8 cmKatherine Romp PA Work Phone: [facility] Positron Mwtltx68-77-2861 10:58-0400Body mass index (BMI) [Ratio]27.73 kg/v2Wekchgktd Romp PA Work Phone: [facility] Jdpypp97-18-5966 10:58-0400Body wsrala22.39 kgKatherine Romp PA Work Phone: [facility]09-30-2025 10:58-0400Diastolic blood mm[Hg]Abby Romp PA Work Phone: [facility] Pos[employer]ron Tpetap14-25-0006 10:58-0400Heart rate 62 /minKatherine Romp PA Work Phone: [facility]09-30-2025 10:58-0400 Respiratory rate16 /minKatherine Romp PA Work Phone: [facility]09-30-2025 10:58-0400Systolic blood iguyqcvf822 mm[Hg]Abby Romp PA Work Phone: [facility] Pos[employer]ron Kpjvut12-07-2316 09:29-0400Body rvpefr299.6 cmMarc Dolce DPM FACFAS Work Phone: [facility] SystemJjlrhasqzc43-60-7999 09:29-0400Body mass index (BMI) [Ratio]33.81 kg/m2Maryusuf Charlton DPM FACFAS Work Phone: [phone] [place], [place] 9360409-24-2025 09:29-0400Body .36 kgMarc Latesha DPM FACFAS Work Phone: [phone] [place], [place] 9360409-24-2025 09:29-0400Diastolic blood samrgfix87 mm[Hg]Bhanu Charlton DPM FACFAS Work Phone: [phone])[address] [place], [place] 9360409-24-2025 09:29-0400Heart rate75 /min Bhanu Charlton DPM FACFAS Work Phone: [phone] [place], [place] 9360409-24-2025 09:29-0400Systolic blood mssndzoi233 mm[Hg]Bhanu Charlton DPM FACFAS Work Phone: 1(087)[address] [place], [place] 9360408-18-2025 10:00-0400Body temperature 97.9 [degF]Ogjesus manuel Grant DDS Work Phone: met483-4590PofxlJblfvl04-015788VfpqmHqyfma65-16-0189 10:00-0400Diastolic blood mm[Hg]Ogjesus manuel Grant DDS Work Phone: MetroHealthComment on above:ok for DC per Dr. Moralez, pt will take home BP vukl32-20-2151 10:00-0400Heart gxti600 /minCatiaith Avinash-Romainjarodi DDS Work Phone: [phone]mDsxyqk26-88-5137 10:00-0400Respiratory rate17 /minCatiaith Avinash-Romainhni DDS Work Phone: 1(938) [phone]eCoanko61-53-4100 10:00-2309BfI3% (BldA) [Mass fraction]94 %Ogjesus manuel Gongyulia DDS Work Phone: 1(573) [phone]jQtfjnr38-85-5722 10:00-0400Systolic blood jtaceuur288 mm[Hg]Og OakleyRomainmerlyn DDS Work Phone: [facility]HealthComment on above:ok for DC per Dr. Moralez, pt will take home BP ckvh50-71-0663 07:13-0400Body vxoxfc168.1 cmLmarilu Grant DDS Work Phone: met832-1430EextfPzsgci54-183992NhzddLigris17-62-3089 07:13-0400Body mass index (BMI) [Ratio]30.29 kg/y0DhzmhOg Grant DDS Work Phone: 1(741) [phone]fIfmfjc65-93-8223 07:13-0400Body cpyimy66.56 kg Og Grant DDS Work Phone: 1(170) [phone]eqpIklqdt56-28-2173 09:36-0400Body gjzoab897.6 cm Bhanu Charlton DPM FACFAS Work Phone: [phone]08-13-2025 09:36-0400Body mass index (BMI) [Ratio]33.81 kg/m2Marc Ivance DPM FACFAS Work Phone: [phone] [place], [place] 9360408-13-2025 09:36-0400Body epeghq52.36 kgMarc Dolce DPM FACFAS Work Phone: [phone])[address] [place], [place] 9360408-13-2025 09:36-0400Diastolic blood yzkkhwpl23 mm[Hg]Bhanu Charlton DPM FACFAS Work Phone: 1(995)[address] [place], [place] 9360408-13-2025 09:36-0400Heart rate72 /min Bhanu Charlton DPM FACFAS Work Phone: 1(510)[address] [place] [address]-13-2025 09:36-0400Systolic blood riwrmeak134 mm[Hg]Bhanu Charlton DPM FACFAS Work Phone: [phone])[address] [place], [place] 9360408-01-2025 14:39-0400Body mass index (BMI) [Ratio]30.44 kg/r7IzchgqxkGlenn Chatman MD Work Phone: 1(764) [phone]wCxqgqg70-28-2119 14:39-0400Body jmwrjsblwia21.81 [degF]Glenn Chatman MD Work Phone: 1(588) [phone]hUnjpqd23-48-6020 14:39-0400Body nqcpfo66.96 kg Glenn Chatman MD Work Phone: 1(399) [phone]oFttwob23-57-4761 14:39-0400Diastolic blood gytlvzek93 mm[Hg]Glenn Chatman MD Work Phone: 1(860) [phone]bWxbucr45-95-9111 14:39-0400Heart rate85 /min Glenn Chatman MD Work Phone: 1(959) [phone]WlhdsFsjgqu38-52-2371 14:39-0400Respiratory rate18 /minEmmanjanice Chatman MD Work Phone: 1(436) [phone]uEcttlv94-40-1331 14:39-0400Systolic blood rksyikjg459 mm[Hg]Glenn Chatman MD Work Phone: 1(245) [phone]fFeydcy90-75-2988 10:32-0400Body ihspcp662.8 cm Linn Red MD Work Phone: [facility]07-15-2025 10:32-0400Body mass index (BMI) [Ratio]31.03 kg/j7PxwrsLinn Red MD Work Phone: [facility]07-15-2025 10:32-0400Body ebzecw17.28 kgLinn Red MD Work Phone: [facility]07-15-2025 10:32-0400Diastolic blood yjuzwgwz43 mm[Hg]Linn Red MD Work Phone: [facility]07-15-2025 10:32-0400Systolic blood lfrzqiki869 mm[Hg]Linn Red MD Work Phone: [facility]07-01-2025 10:31-0400Body fkcekr729.6 cmMarc Latesha BERNSTEIN FACFAS Work Phone: [facility] SystemMbinjqzaft47-85-6867 10:31-0400Body mass index (BMI) [Ratio]33.81 kg/m2Marc Dolce DPM FACFAS Work Phone: [facility] SystemMjefyfpaos05-99-9181 10:31-0400Body zobylw07.36 kgMaryusuf Charlton DPM FACFAS Work Phone: [facility] SystemCrmezmwfmz68-58-2673 10:31-0400Diastolic blood otycehye25 mm[Hg]Bhanu Charlton DPM FACFAS Work Phone: [facility] SystemMhnypgafoq36-66-3356 10:31-0400Heart rate70 /min Bhanu Charlton DPM FACFAS Work Phone: [facility] SystemDfokkfceyj48-92-7475 10:31-0400Systolic blood bqogywii234 mm[Hg]Bhanu Charlton DPM FACFAS Work Phone: [phone] SystemYmprbjmosi18-22-4931 09:36-0400Body qtahga590.8 cmGrjuan carlos Haque PANTOGRAPHER-MEDIA MARKETING COORDINATOR Work Phone: [facility]06-19-2025 09:36-0400Body mass index (BMI) [Ratio]31.45 kg/n7Trnqnxyvjuan carlos Haque PANTOGRAPHER-MEDIA MARKETING COORDINATOR Work Phone: [facility]06-19-2025 09:36-0400Body lycoxh44.37 kgGrjuan carlos Haque PANTOGRAPHER-MEDIA MARKETING COORDINATOR Work Phone: [facility]06-19-2025 09:36-0400Diastolic blood fybmiycu08 mm[Hg]Eve Haque PANTOGRAPHER-MEDIA MARKETING COORDINATOR Work Phone: [facility]06-19-2025 09:36-0400Heart rate 69 /minJohanjuan carlos Haque PANTOGRAPHER-MEDIA MARKETING COORDINATOR Work Phone: [facility]06-19-2025 09:36-0400 Respiratory rate16 /minGrjuan carlos Haque PANTOGRAPHER-MEDIA MARKETING COORDINATOR Work Phone: [facility]06-19-2025 09:36-0400Systolic blood pthawger843 mm[Hg]Eve Haque PANTOGRAPHER-MEDIA MARKETING COORDINATOR Work Phone: [facility]06-17-2025 14:12-0400Body fljebm743.8 Martha Red MD Work Phone: [facility]06-17-2025 14:12-0400Body mass index (BMI) [Ratio]31.54 kg/e0NqaisLinn Red MD Work Phone: [facility]06-17-2025 14:12-0400Body ompfmw38.64 kgLinn Red MD Work Phone: [facility]06-17-2025 14:12-0400Diastolic blood zkbcspev59 mm[Hg]Linn Red MD Work Phone: [facility]06-17-2025 14:12-0400Systolic blood mpcxeapo427 mm[Hg]Linn Red MD Work Phone: [facility]06-17-2025 09:53-0400Body sqzazu164.6 cmMarc Dolce DPM FACFAS Work Phone: 1(710)[address] [place], [place] 9360406-17-2025 09:53-0400Body mass index (BMI) [Ratio]33.81 kg/m2Marc Dolce DPM FACFAS Work Phone: 1(802)[address] [place], [place] 9360406-17-2025 09:53-0400Body bfohtx27.36 kgMarc Dolce DPM FACFAS Work Phone: [phone])[address] [place], [place] 9360406-17-2025 09:53-0400Diastolic blood mm[Hg]Bhanu Charlton DPM FACFAS Work Phone: 1(136)[address] [place], [place] 9360406-17-2025 09:53-0400Heart rate71 /min Bhanu Charlton DPM FACFAS Work Phone: 1(060)[address] [place], [place] 9360406-17-2025 09:53-0400Systolic blood jczjgwjo389 mm[Hg]Bhanu Charlton DPM FACFAS Work Phone: 1(425)[address] [place], [place] 9360405-28-2025 10:55-0400Body husgks171.6 cmMarc Dolce DPM FACFAS Work Phone: 1(419)[address] [place], [place] 9360405-28-2025 10:55-0400Body mass index (BMI) [Ratio]33.81 kg/m2Marc Dolce DPM FACFAS Work Phone: 1(419)[address] [place], [place] 9360405-28-2025 10:55-0400Body jrrqhe40.36 kgMarc Dolce DPM FACFAS Work Phone: 1(419)[address] [place], [place] 9360405-28-2025 10:55-0400Diastolic blood ikerdlea87 mm[Hg]Bhanu Dolce DPM FACFAS Work Phone: 1(419)[address] [place], [place] 9360405-28-2025 10:55-0400Heart rate72 /min Bhanu Dolce DPM FACFAS Work Phone: 1(419)[address] [place], [place] 9360405-28-2025 10:55-0400Systolic blood kkyojxsu118 mm[Hg]Bhanu Dolce DPM FACFAS Work Phone: 1(419)[address] [place], [place] 9360405-14-2025 10:23-0400Body csqapj653.6 cmMarc Dolce DPM FACFAS Work Phone: 1(419)[address] [place], [place] 9360405-14-2025 10:23-0400Body mass index (BMI) [Ratio]33.81 kg/m2Marc Dolce DPM FACFAS Work Phone: 1(419)[address] [place], [place] 9360405-14-2025 10:23-0400Body xaplbq97.36 kgMarc Dolce DPM FACFAS Work Phone: 1(419)[address] [place] [address]-14-2025 10:23-0400Diastolic blood hwttizex49 mm[Hg]Bhanu Dolce DPM FACFAS Work Phone: 1(419)[address] [place], [place] 9360405-14-2025 10:23-0400Heart rate75 /min Bhanu Dolce DPM FACFAS Work Phone: 1(419)[address] [place], [place] 9360405-14-2025 10:23-0400Systolic blood hmedrnja282 mm[Hg]Bhanu Lovece DPM FACFAS Work Phone: 1(419)[address] [place], [place] 9360404-23-2025 13:33-0400Body xfjuum707.1 cmZaid Joshua PANTOGRAPHER-CNM Work Phone: [facility]04-23-2025 13:33-0400Body mass index (BMI) [Ratio]32.05 kg/r6CaawwZaid Joshua PANTOGRAPHER-CNM Work Phone: [facility]04-23-2025 13:33-0400Body jsjyjg10.36 kgZaid Joshua PANTOGRAPHER-CNM Work Phone: [facility]04-23-2025 13:33-0400Diastolic blood ykjtsrvw81 mm[Hg]Zaid Joshua PANTOGRAPHER-CNM Work Phone: [facility]04-23-2025 13:33-0400Systolic blood ckdmmxhy794 mm[Hg]Zaid Joshua APRN-CNM Work Phone: [facility]04-14-2025 10:33-0400Body .6 cmAparveen Mike PA Work Phone: [facility] SystemNeqdxexzxm55-48-5502 10:33-0400Body mass index (BMI) [Ratio]33.81 kg/m2Valentina Mike PA Work Phone: [facility] SystemBuwnapexwp82-06-5001 10:33-0400Body wwhaic46.36 kgValentina Mike PA Work Phone: [facility] SystemCglxhbpsjd81-68-1963 10:33-0400Diastolic blood bqseclwh68 mm[Hg]Valentina Mike PA Work Phone: [place] [address]Klutzllnkb84-61-0190 10:33-0400Heart rate73 /min Valentina Mike PA Work Phone: [place] [address]Jbvbaplahr98-43-0388 10:33-0400Respiratory rate16 /minValentina Mike PA Work Phone: [place] [address]Rwwzssjygo31-32-2139 10:33-1374UmG7% (BldA) [Mass fraction]96 %Valentina Mike PA Work Phone: [facility] SystemHpxnszfwki09-34-9704 10:33-0400Systolic blood tqguvowt163 mm[Hg]Valentina Mike PA Work Phone: [facility] SystemIdelncrtga16-40-8578 11:05-0500Body mass index (BMI) [Ratio]31.24 kg/e5ImcoyvDamien Jones SUPERVISOR BINDERY Work Phone: [facility] SystemCoziybptnd44-21-6331 11:05-0500Body yrtpyx97.56 kgDamien Jones SUPERVISOR BINDERY Work Phone: 1(697)533-[facility] SystemVjqnjyeool35-05-2202 11:05-0500Diastolic blood mcqfhxyq77 mm[Hg]Damien Jones SUPERVISOR BINDERY Work Phone: 1(881)283-[facility] SystemXlmvyhvaid71-68-0026 11:05-0500Heart rate84 /min Damien Jones SUPERVISOR BINDERY Work Phone: [facility] SystemSpwgkhtiue34-74-9212 11:05-0500Systolic blood dpvojzus068 mm[Hg]Damiendaksha Jones SUPERVISOR BINDERY Work Phone: 1(922)367-[facility] SystemWzdvtuklkk04-48-5861 09:30-0500Body ojgqjh388.6 cmMarc Dolce DPM FACFAS Work Phone: [phone] SystemQbouefmgpz15-28-7870 09:30-0500Body mass index (BMI) [Ratio]31.58 kg/m2Marc Dolce DPM FACFAS Work Phone: 1(422)[address] [place], [place] 9360401-07-2025 09:30-0500Body mwwmwa82.46 kgMarc Dolce DPM FACFAS Work Phone: 1(735)[address] [place], [place] 9360401-07-2025 09:30-0500Diastolic blood yzqqscnt56 mm[Hg]Bhanu Charlton DPM FACFAS Work Phone: 1(647)[address] [place], [place] 9360401-07-2025 09:30-0500Heart rate71 /min Bhanu Charlton DPM FACFAS Work Phone: 1(155)952-[address] [place], [place] [address]Dleoxmqhtw05-22-7822 09:30-0500Systolic blood wpxxevks280 mm[Hg]Bhanu Charlton DPM FACFAS Work Phone: 1(880)[address] [place], [place] 9360412-11-2024 09:00-0500Body hhgokd857.1 cmCatherkeshawn Denton AATbsvgJcayff47-59-4261 09:00-0500Body mass index (BMI) [Ratio]31.72 kg/l5Ebhlgbjihkeshawn Denton TCZyubnMikzmj32-92-3718 09:00-0500Body rdckoa26.46 kgCatindia Denton PSQurczFsrlmk02-15-2008 09:17-0400Body rrssgbychcf02.2 [degF]Micaela VELEZ Work Phone: [phone]wXxafyt50-83-8051 09:17-0400Respiratory rate0 /min Micaela VELEZ Work Phone: [phone]KmnnfMjxava68-84-6226 09:16-0400Diastolic blood hqmwajfz13 mm[Hg]Micaela VELEZ Work Phone: [phone])[phone]memGzgksa36-19-2460 09:16-0400Heart rate84 /min Micaela VELEZ Work Phone: [phone]UnnvwSrdvqz57-41-2989 09:16-8993PeH8% (BldA) [Mass fraction]95 %Micaela VELEZ Work Phone: [phone]GvzdaIgblkl35-50-5918 09:16-0400Systolic blood umhlblwz346 mm[Hg]Micaela VELEZ Work Phone: 1(784) [phone]PlogzIxzpah19-51-3943 09:19-0400Body wywpno650.6 cm Bhanu Charlton DPM FACFAS Work Phone: [facility] SystemTgrvbpwfvs38-88-1129 09:19-0400Body mass index (BMI) [Ratio]31.58 kg/m2Marc Dolce DPM FACFAS Work Phone: [facility] SystemLzlcjgeckx35-41-2763 09:19-0400Body yuraas64.46 kgMarc Dolce DPM FACFAS Work Phone: [facility] SystemDyfrdpxmfc70-77-9840 09:19-0400Diastolic blood nvylnjte88 mm[Hg]Bhanu Charlton DPM FACFAS Work Phone: [facility] SystemBjwmyhxalf35-96-1763 09:19-0400Heart rate68 /min Bhanu Charlton DPM FACFAS Work Phone: [facility] SystemEsntysdsyp90-48-3768 09:19-0400Systolic blood hyvctitj288 mm[Hg]Bhanu Charlton DPM FACFAS Work Phone: [facility] SystemUntgctkuse21-11-4845 09:37-0400Diastolic blood ymdukylz25 mm[Hg]Case Melchor MD Work Phone: [facility]09-05-2024 09:37-0400Heart rate 65 /minCase Melchor MD Work Phone: [address] [place], [place] 8914209-05-2024 09:37-0400Systolic blood mm[Hg]Case Melchor MD Work Phone: [facility]09-05-2024 09:34-0400Body todeay98.46 kgCase Melchor MD Work Phone: [facility]06-15-2024 22:14-0400Diastolic blood ysmhkchc95 mm[Hg]IMAN Pathakney Saffle Work Phone: [facility]06-15-2024 22:14-0400 Heart rate85 /minBLANCASherlyn Venita Saffle Work Phone: [facility]06-15-2024 22:14-0400 Respiratory rate22 /minAPRSherlyn Venita Saffle Work Phone: [facility]06-15-2024 22:14-0400 SaO2% (BldA) [Mass fraction]100 %PANTOGRAPHER Venita Saffle Work Phone: [facility]06-15-2024 22:14-0400 Systolic blood cxnnifki636 mm[Hg]PANTOGRAPHER Venita Saffle Work Phone: [facility]06-15-2024 19:54-0400 Body bdahjh666.83 cmAPRSherlyn Venita Saffle Work Phone: [facility]06-15-2024 19:54-0400 Body omixbtsogxp75.2 [degF]IMAN Nathan Saffle Work Phone: [facility]06-15-2024 19:54-0400 Body ymasyc46 kgAPRSherlyn Nathan Saffle Work Phone: [facility]06-06-2024 14:10-0400 Diastolic blood evrsjbbr48 mm[Hg]Case Melchor MD Work Phone: [facility]06-06-2024 14:10-0400Heart rate 75 /minCase Melchor MD Work Phone: [facility]06-06-2024 14:10-0400Systolic blood xgkcoaqw626 mm[Hg]Case Melchor MD Work Phone: [facility]06-06-2024 14:07-0400Body aqmgvk06.74 kgCase Melchor MD Work Phone: [facility]06-06-2024 14:07-5486AyI1% (BldA) [Mass fraction]100 %Case Melchor MD Work Phone: [facility]04-10-2024 12:00-0400Body rwhsdqasplf29.3 [degF]IMAN Nathan Saffle Work Phone: [facility]04-10-2024 12:00-0400 Diastolic blood crgrhtej66 mm[Hg]IMAN Nathan Saffle Work Phone: [facility]04-10-2024 12:00-0400 Heart rate82 /minIMAN Nathan Saffle Work Phone: [facility]04-10-2024 12:00-0400 Respiratory rate18 /minIMAN Nathan Saffle Work Phone: [facility]04-10-2024 12:00-0400 SaO2% (BldA) [Mass fraction]98 %IMAN Nathan Saffle Work Phone: [facility]04-10-2024 12:00-0400 Systolic blood qeecuxdv560 mm[Hg]IMAN Nathan Saffle Work Phone: [facility]04-10-2024 06:00-0400 Body pdijkm28 kgAPRSherlyn Francoisfle Work Phone: [facility]04-08-2024 12:46-0400 Body .1 cmAPRSherlyn Francoisfle Work Phone: [facility]04-07-2024 16:36-0400 Diastolic blood ivftqctx62 mm[Hg][facility]04-07-2024 16:36-0400Systolic blood asmygfoe505 mm[Hg][facility] 05-29-2023 15:48-0400Body xjlhayskwwv44.1 [degF][facility]04-07-2024 15:48-0400Heart rate90 /[facility] 05-29-2023 15:48-0400Respiratory rate18 /[facility] 05-29-2023 15:48-6919ZfL0% (BldA) [Mass fraction]96 %[facility]04-07[facility] 13:05-0400Body .1 [facility] 05[facility]2023 13:05-0400Body vtuwyq77.6 [facility] En[facility] Encounter DateEncounter TypeCare ProviderFacilityStart: 12-19-2024 End: 96-99-1936jlmbsedmmwVLH STAFF-[facility] NeurologyStart: 12-19-2024 End: 51-68-4910Avgxiqc encounter Sarah Mike APRN-FNP-C-[facility] Work Phone: Start: 11-20-2024 End: 59-70-4148Hbxrkamql encounterSally von Mati [facility] OncologyStart: 11-20-2024 End: 19-80-8187Wfqvlz outpatient visit 25 minutesKatherkeshawn Recinos Merna PYLE Work Phone: [facility] Surgical OncologyComment on above:Cellulitis of right breast (Primary Dx)Start: 11-20-2024 End: 33-59-4924gwedfmzrcdPFRNJRCPX H ROMPProMedica Parkview Healthtart: 11-14-2024 End: 25-62-5281Qqomzf flowsheetMarc D Dolce DPM FACFAS Work Phone: [facility]: 11-14-2024 End: 37-75-0875Eirmlh flowsheetMarc D Dolce DPM FACFAS Work Phone: [facility]: 11-14-2024 End: 26-63-6162Ofnecys encounter procedureMarc D Dolce DPM FACFAS Work Phone: noms [facility] PODComment on above:Onychomycosis (Primary Dx); Pain in left toe(s); Pain in right toe(s)Start: 11-14-2024 End: 41-01-5324vunqeyozxoGOFT D DOLCENot AvailableStart: 37-00-4768qzoiwcemmn OG GONGIFacility:METROHealthStart: 10-08-2024 End: 63-62-8474chkwzzylwtAIMSY AL-MASHNIFacility:METROHealthStart: 10-08-2024 End: 14-93-0399Eiwxqgo encounter procedureOg Grant DDS Work Phone: [facility] DentistryStart: 10-08-2024 End: 77-62-3680Nqysxgkbce hospital visit by physicianOg Grant DDS Work Phone: [facility]SCritical [facility] Ambulatory SurgeryStart: 10-05-2024 End: 38-70-5154Yakbfzfut encounterAlvin Garcia RNMetroHealth Pre-Admission TestingComment on above:Dental (DD adult dental restorations 10/08/24 under [place] at [facility]. PAT completed 09/21/24. Consents obtained from Guardian Jessica Houston. KIM RN spoke to Yazmin MARES at [facility] on 10/05/24. Confirmed NPO after 2199. [facility] address [id number] [place] [address]. 0630 [facility] time. [facility] DOS./)Start: 10-03-2024 End: 76-57-5421Rvpnnk flowsheetMarc D Dolce DPM FACFAS Work Phone: noms [facility] CampuswnStart: 10-03-2024 End: 25-71-6652Mylpmv flowsheetMarc D Dolce DPM FACFAS Work Phone: [facility]oms [facility] Hospitaltart: 10-03-2024 End: 03-49-1387Mjbfyzavt encounterJulienne Ty RNMetroHealth Pre-Admission TestingStart: 10-03-2024 End: 45-91-4431Kunqsy outpatient visit 15 minutesMarc D Dolce DPM FACFAS Work Phone: noms NMA PODComment on above:Exostosis of right foot (Primary Dx); Other enthesopathy of right foot and ankleStart: 10-03-2024 End: 90-66-5695yqynykwgwmKLME D DOLCENot AvailableStart: 09-28-2024 End: 77-05-7962Ppfdwsxoo encounterJulienne Ty RNMetroHealth Pre-Admission TestingStart: 65-67-7446lpdcduiayhBFBZCCGM BOAKYEFacility:METROHealthStart: 09-21-2024 End: 51-89-2624Aqzaod outpatient new 45 minutesGlenn Chatman MD Work Phone: MetOhio[facility] Pediatric Comprehensive CareComment on above:Pre-op evaluation (Primary Dx); Body mass index (BMI) 30.0-30.9, adultStart: 09-21-2024 End: 58-70-0669Futeurmwfwhmd examination doneGlenn Chatman MD Work Phone: [facility] Work Phone: Start: 09-04-2024 End: 23-18-2840Wldnsf outpatient visit 15 minutesComita Red MD Work Phone: [facility] Obstetrics/GynecologyComment on above:Mastodynia, female (Primary Dx)Start: 09-04-2024 End: 00-92-7540egtitnnxalRPPVWMadigan Army Medical Center Ambulatory PPGStart: 08-23-2024 End: 40-10-4936cvdkwfgifaFleddg [facility] Work Phone: Start: 08-23-2024 End: 57-87-9652Qwnogltd ReferredGood Samaritan Medical Center DO-LAB Path Spec [place] [facility] Start: 08-21-2024 End: 79-92-9104Edwqfm flowsheetMarc D Dolce DPM FACFAS Work Phone: noms ASC PODStart: 08-21-2024 End: 54-78-1994Wlkyal flowsheetMarc D Dolce DPM FACFAS Work Phone: noms ASC PODStart: 08-21-2024 End: 05-02-1891Kjwclz outpatient visit 15 minutesMarc D Dolce DPM FACFAS Work Phone: noms NMA PODComment on above:Exostosis of right foot (Primary Dx); Other enthesopathy of right foot and ankle; Right foot painStart: 08-21-2024 End: 60-08-6608gjhknaukxwHXVQ D DOLCENot AvailableStart: 08-09-2024 End: 51-51-5492zrmxaadtjgURZOXAvita Health System [facility] HospitalStart: 08-09-2024 End: 58-87-4386Cixajs outpatient new 30 minutesEve Haque PANTOGRAPHER-MEDIA MARKETING COORDINATOR Work Phone: [facility] Surgical OncologyComment on above:Mass of right breast, unspecified quadrant (Primary Dx); Breast skin changes; Mastodynia, femaleStart: 08-09-2024 End: 44-97-5825jozlxubdapFCCAGZZBEmily Ni [facility] HospitalStart: 08-08-2024 End: 98-74-8861Bbgiomidn to same day surgery centerMitaylor Black DDS Work Phone: [facility] DentistryStart: 08-07-2024 End: 69-31-5191Atfvik outpatient visit 15 minutesLinn Red MD Work Phone: [facility] Obstetrics/GynecologyComment on above:Mastodynia, female (Primary Dx); Mass of right breast, unspecified quadrantStart: 08-07-2024 End: 59-65-2490yvvdnpwxplBAEOCBrooks Memorial Hospital Ambulatory PPGStart: 08-07-2024 End: 11-92-1879Fvwnfk flowsheetMarc D Dolce DPM FACFAS Work Phone: NOMS ASC PODStart: 08-07-2024 End: 26-01-6839Eucsnr flowsheetMarc D Dolce DPM FACFAS Work Phone: [facility] ASC PODStart: 08-07-2024 End: 82-61-1099Uvcihq outpatient visit 15 minutesMarc D Dolce DPM FACFAS Work Phone: NOMS NMA PODComment on above:Exostosis of right foot (Primary Dx); Other enthesopathy of right foot and ankle; Pain in right toe(s); Right foot pain; Onychomycosis; Pain in left toe(s)Start: 08-07-2024 End: 49-57-4908fksndrvknxTLEM D DOLCENot AvailableStart: 07-18-2024 End: 95-90-2223Votdfx flowsheetMarc D Dolce DPM FACFAS Work Phone: [phone] ASC PODStart: 07-18-2024 End: 67-72-5382Frczgj flowsheetMarc D Dolce DPM FACFAS Work Phone: [phone] ASC PODStart: 07-18-2024 End: 39-86-9179Evyykj outpatient visit 15 minutesMarc D Dolce DPM FACFAS Work Phone: noMS NMA PODComment on above:Abscess, toe, left (Primary Dx); OnychocryptosisStart: 07-18-2024 End: 50-05-4066jvahwvcixpFQKK D DOLCENot AvailableStart: 2024 End: 73-51-4067Whhtwv flowsheetMarc D Dolce DPM FACFAS Work Phone: noms ASC PODStart: 2024 End: 72-49-1961Lqgsro flowsheetMarc D Dolce DPM FACFAS Work Phone: NOHW ASC PODStart: 2024 End: 23-30-7474Kqcgnj outpatient visit 15 minutesMarc D Dolce DPM FACFAS Work Phone: noms NMA PODComment on above:Onychocryptosis (Primary Dx); Pain in left toe(s); Abscess, toe, leftStart: 2024 End: 61-59-1551ozmfkvhugmYPLF D DOLCENot AvailableStart: 06-13-2024 End: 19-81-1196Nduwwe pelvic examinationZaid Joshua IMAN-JEANNINEM Work Phone: [facility] Work Phone: Start: 06-13-2024 End: 71-36-3750Ukyyafj encounter procedureZaid Joshua IMAN-CNM Work Phone: [facility] Physicians Obstetrics/GynecologyComment on above:Encounter for breast and pelvic examination (Primary Dx)Start: 06-13-2024 End: 47-39-5457ofthnfrzczVPGCO [facility] Ambulatory PPGStart: 95-82-1652Gylepatez for gynecological examination (general) (routine) without abnormal findingsFLCASSIEHudson Valley Hospital Ambulatory PPGStart: 06-04-2024 End: 13-88-3697Ugikhm Yesenia PYLE Work Phone: aNA SALUEStart: 06-04-2024 End: 26-24-1096Thwndorosalia PYLE Work Phone: aNA DANICAEVUEStart: 06-04-2024 End: 07-10-9555Kpjogw outpatient visit 15 minutesPamelaanay Rashid PA Work Phone: aNA BELLEVUEComment on above:Convulsions, unspecified convulsion type (CMS/HCC) (Primary Dx); Hyponatremia; Developmental delay; Anger reactionStart: 06-04-2024 End: 67-03-2398ukrvorpwgdKHXH HILLNot AvailableStart: 05-08-2024 End: 44-54-4336komwohhgwqOVOQ D DOLCENot AvailableStart: 02-29-2024 End: 85-05-8592Iybssw Margoth Jones SUPERVISOR BINDERY Work Phone: aNA BELLEVUEStart: 02-29-2024 End: 57-89-4442Hpddkkrosalia Jones SUPERVISOR BINDERY Work Phone: ANA BELLEVUEStart: 02-29-2024 End: 89-23-1562Rthsog outpatient visit 25 minutesDamien Jones SUPERVISOR BINDERY Work Phone: aNA BELLEVUEComment on above:Convulsions, unspecified convulsion type (CMS/HCC) (Primary Dx); Hyponatremia; Developmental delay; Anger reactionStart: 02-29-2024 End: 98-55-1982bmlmpopjwbPYYETY MORRISNot AvailableStart: 02-28-2024 End: 24-00-1550Ywfqdp flowsheetMarc D Dolce DPM FACFAS Work Phone: N[facility] ASC PODStart: 02-28-2024 End: 31-96-3573Ymhlyo flowsheetMarc D Dolce DPM FACFAS Work Phone: [facility] ASC PODStart: 02-28-2024 End: 02-13-6947Oldiqwi encounter procedureMarc D Dolce DPM FACFAS Work Phone: NOMS NMA PODComment on above:Onychomycosis (Primary Dx); Pain in right toe(s); Pain in left toe(s)Start: 02-28-2024 End: 93-23-5320ledksdlptuBGIO D DOLCENot AvailableStart: 02-23-2024 End: 72-63-2169Uzgmosi encounter procedureJennifer Altagracia MEHTA Work Phone: [facility] CenterStart: 02-23-2024 End: 25-98-5385oplczblapaLCDSDGT PROVIDERFacility:[facility] HospitalStart: 02-14-2024 End: 17-18-5396Pjkrptduf encounterJusujit Sanchez RNMagruder Memorial Hospital Pre-Admission TestingStart: 02-01-2024 End: 49-26-3485Xygqmfu evaluation of patient and reportPenny Denton RN [facility] Pre-Admission TestingComment on above:Pre-op evaluation (Primary Dx)Start: 02-01-2024 End: 10-84-1861Gugjyajuqgspm examination doneCatindia Denton RNMagruder Memorial Hospital Start: 19-45-7072ybsmywvfkzAOCLTUI PROVIDERFacility:[facility] HospitalStart: 02-01-2024 Encounter for other preprocedural examinationUNKNOWN PROVIDERThe [facility] SystemStart: 01-07-2024 End: 23-79-7553Zwibcn encounterMetroHealthStart: 12-15-2023 End: 55-70-4193zvafnpwtjtHIFWAA GJINIFacility:[facility] HospitalStart: 12-15-2023 End: 19-46-2875Spyxoczlqr Saira Florez MD Work Phone: [facility] CenterStart: 12-15-2023 End: 58-96-0071Ozsrnsp encounter procedureMarleni Alejandro DDS Work Phone: [facility] Medical CenterComment on above:Caries (Primary Dx)Start: 12-09-2023 End: 73-09-8061Bbsonx flowsheetNatalie A Felter PANTOGRAPHER-MEDIA MARKETING COORDINATOR Work Phone: noMS SWS DERMStart: 12-09-2023 End: 25-24-5995Cfevsa flowsheetNatalie A Felter PANTOGRAPHER-MEDIA MARKETING COORDINATOR Work Phone: noms SWS DERMStart: 12-09-2023 End: 64-77-9296Uuxowj outpatient new 30 minutesNatalie A Felter PANTOGRAPHER-MEDIA MARKETING COORDINATOR Work Phone: noms SWS DERMComment on above:Lip licking dermatitis Start: 12-09-2023 End: 15-35-0013jnrrkgwxwgOHWUHVB A FELTERNot AvailableStart: 11-23-2023 End: 93-55-5782Lckoacpgx encounterMeldeep Webblos RNMetroHealth Pre-Admission TestingComment on above:PAT (Anesthesia consent obtained)Start: 11-23-2023 ambulatoryUNKNOWN PROVIDERFacility:METROHealthStart: 11-09-2023 End: 80-16-7192Bzanur flowsheetMarc D Dolce DPM FACFAS Work Phone: noms ASC PODStart: 11-09-2023 End: 87-86-3518Kmbpry flowsheetMarc D Dolce DPM FACFAS Work Phone: noms ASC PODStart: 11-09-2023 End: 17-40-9712Ksgfceq encounter procedureMarc D Dolce DPM FACFAS Work Phone: noms NMA PODComment on above:Onychomycosis (Primary Dx); Pain in right toe(s); Pain in left toe(s)Start: 10-27-2023 End: 03-43-3302Sdsuaz outpatient visit 25 minutesCase Melchor MD Work Phone: [facility] Comment on above:Hyponatremia (Primary Dx)Start: 10-19-2023 End: 62-93-3237Suycnhl encounter Ellen Veronica DDS Work Phone: [facility]Middletown HospitalComment on above:Caries (Primary Dx)Start: 21-93-0776tmvvrekugkZHVI GOODMAN Facility:METROHealthStart: 08-06-2023 End: 34-56-2640Lorfspqxx department patient visitIMAN Amanda Work Phone: [facility] Work Phone: Start: 08-01-2023 End: 36-47-3373Uqhtjetxl encounterScanning Provider ExternalPHN [facility] HospitaloStart: 07-28-2023 End: 35-27-3299Jrkjfs outpatient new 45 Lazara Melchor MD Work Phone: T [facility] Comment on above:Hyponatremia (Primary Dx)Start: 05-30-2023 End: 90-05-4141Egfathxjqo and management of inpatientAPRN Venita Amanda Work Phone: [facility] [place] [facility] Work Phone: Start: 49-67-4888Fawqtcwswr and management of inpatientKettering Health [facility] Work Phone: Start: 40-86-9977iumlxjkggrr encounterNON STAFF [facility] Work Phone: Start: 05-29-2023 End: 79-52-3837Crp-patient / Non-visitFirsentara [facility] Work Phone: Start: 69-61-0835Czpppr Michelle Melchor MD Work Phone: S [facility] Comment on above:Hyponatremia (Primary Dx)Start: 04-13-2023 End: 66-58-8830geerbenqqvLFLEBM HERRINGFacility:FTMCStart: 04-13-2023 End: 32-19-5152Evk Drop offDANIEL MUÑOZ [facility] Start: 02-23-2023 End: 23-28-0836Hsn Drop offDANIEL MUÑOZ [facility] Start: 02-23-2023 End: 06-31-8860tvdrmwcgygJOQTCG HERRINGFacility:FTMCStart: 47-58-1939hnsfaiedgz DR LIO A HERRINGFacility:E7Wpndm: 06-10-2022 End: 86-02-6682Jbpsure encounter procedureElivesna Albarran DDS Work Phone: [facility] DentistryStart: 05-17-2022 End: 04-04-7228eyzylqeidaFM DANIEL A HERRINGFacility:N2Fcvff: 04-28-2022 End: 14-15-5327guarufbfpcRF SONAL CARRERO .Facility:B5Bkzkp: 94-36-0856Wwklwo encounterMetroHealthStart: 05-08-2018 End: 48-83-1215Ecpummb encounter procedurePROVIDER NOT IN [facility] Procedures DateProcedureProcedure DetailPerforming ClinicianStart: 46-50-8258Mhbmun-up visitFollow-upKATHERINE H ROMPStart: 04-12-6538Tmgyd test visual color felipe Black DDS Work Phone: Start: 03-40-1303Mhuxjy-up visitFollow-upCORIAnay Almazan KOVACHStart: 43-09-7625Xoinwxprrhn observation [Identifier] in Cervix by Cyto Yvette MONTANEZ Work Phone: Start: 99-32-2520NSLV-CoV-2, Influenza & RSV (PCR)IMAN Amanda Work Phone: Start: 01-75-1163WL of facial bones with contrast Start: 60-44-0203Vacup culture for bacteria, including anaerobic screenAPRSherlyn Amanda Work Phone: Plan of Treatment DateCare ActivityDetailAuthorStart: 11-40-8180Ddtvlsqw (RZV) Vaccine (1 of 2) Shingles (RZV) Vaccine (1 of 2)MetroHealthStart: 02-96-7486WErL,Tdap and Td Vaccines (7 - Td or Tdap)DTaP,Tdap and Td Vaccines (7 - Td or Tdap)[facility] Positron SystemStart: 25-52-1375Dmefocy vaccinationTetanus (Td or Tdap) Booster MetroHealthStart: 25-53-7637Crjmjpzyu for malignant neoplasm of cervixPap Smear [facility] Claytontart: 04-38-5733Vumvh BMI ScreeningAdult BMI Screening [facility] Claytontart: 81-24-9170Jvjfhnk ScreeningTobacco Screening [facility] Claytontart: 21-25-9019Lnmlo BMI ScreeningAdult BMI Screening [facility] SystemStart: 98-05-3559Fkveizo ScreeningTobacco Screening [facility] Claytontart: 92-25-7995Lneac BMI ScreeningAdult BMI Screening [facility] Claytontart: 73-71-0024Aodgzhw ScreeningTobacco Screening [facility] Claytontart: 52-41-8255Kouqs BMI ScreeningAdult BMI Screening [facility] Claytontart: 63-83-3413Aoatrhz ScreeningTobacco Screening [facility] Claytontart: 01-30-2025 End: 51-67-1285Hzqrzui encounter jhuprduqb36/10/2025 9:10 AM EST Procedure Visit [facility] [address] [place] [address] Bhanu Charlton, DPM FACFAS [address] [place] [address] N[facility] NMA PODStart: 69-46-5180Vysanwucd vaccinationInfluenza Vaccine (#1)[facility]roHealthStart: 11-20-2024 End: 84-84-7471Bzejozp encounter zsmwdgxif77/30/2025 11:00 AM EDT Office Visit [facility] [address], [place] [phone] Abby Bauman PA [address] [place] [phone] [facility] Surgical OncologyStart: 11-14-2024 End: 10-40-4748Lffqzts encounter procedureNOMS NMA PODComment on above:Arrived Start: 11-06-2024 End: 33-84-8044Nezquvf encounter jdqalqdqv94/16/2025 9:40 AM EDT Procedure Visit [facility] [address] [facility] [place] [address] Bhanu Charlton, DPM FACFAS [address] [place], [place] [address] [facility] Start: 37-08-6317Xnvehvlhn vaccinationOhioHealthca [facility] System [facility] SystemStart: 10-17-2024 End: 69-92-1791Enpmmbu encounter pvpanodel44/27/2025 8:40 AM EDT Office Visit [facility] [address] [phone] Migdalia Mike, DIOGO [address] [place] [address] [facility] VIRAMONTESYStart: 10-08-2024 End: 74-85-9604Uavhpcmgi to same day surgery [facility] Ambulatory SurgeryComment on above:DENTAL RESTORATIONSStart: 10-08-2024 End: 33-23-7812ILSLCW RESTORATIONSMetroHealthStart: 99-24-8969Kchxtikfyb hospital visit by physicianSamaritan Hospital Ambulatory SurgeryStart: 10-08-2024 End: 41-74-9460Tlqdrcy encounter danpyrdrt28/18/2025 6:30 AM EDT Procedure Visit [facility] [address] [place] [address] Og Grant, DDS [address] [place], [place] [phone] [facility] DentistryStart: 10-03-2024 End: 51-68-5524Fbfzgrcj Epuufqd2610/03/2024 9:30 AM EDT Clinical Support [facility] [address] [facility] [place] [address] Bhanu Charlton, DPM FACFAS [address] [place] [address] ArrivedNOAR AD PODComment on above:ArrivedStart: 09-04-2024 End: 12-43-8876Cwerqyz encounter /15/2025 10:00 AM EDT Office Visit [facility] [address] [place] [phone] Linn Red MD [address] [place] [address] [facility] Obstetrics/GynecologyStart: 08-27-2024 End: 41-66-9735Bgyhpwe encounter ypovrwksa54/07/2025 10:20 AM EDT Office Visit [facility] [place] [address] [place] [address] Valentina Mike PA [address] [place] [address] [facility]UL[facility] GOFFtart: 18-03-3590LjehiKing's Daughters [facility] [place] Start: 53-68-1182Vooythvj identified in Urine by CultureCleveland Clinic Marymount Hospitaltart: 08-21-2024 End: 78-61-7333Jtfwzgfx SupportNorthern Missouri Foot & Ankle SpecialistsComment on above:ArrivedStart: 08-07-2024 End: 41-61-2039JR Breast duct - right Views W contrast intra ductMammography diagnostic unilateral right with CAD Imaging Routine Mastodynia, female Mass of right breast, unspecified quadrant Expected: 08/07/2024, Expires: 08/07/2025 [facility] Work Phone: Comment on above:Expected: 08/07/2024, Expires: 08/07/2025Start: 08-07-2024 End: 93-70-9782HC Breast - bilateral WO and W contrast IVMR bilateral breast with and without contrast with CAD Imaging Routine Mastodynia, female Mass of ri ght breast, unspecified quadrant Expected: 08/07/2024, Expires: 08/07/2025 [facility] SystemComment on above:Expected: 08/07/2024, Expires: 08/07/2025Start: 08-07-2024 End: 26-04-4077CN Breast - right limitedUltrasound breast limited right Imaging Routine Mastodynia, female Mass of right breast, unspecified quadrant Expected: 08/07/2024, Expires: 08/07/2025[facility] SystemComment on above:Expected: 08/07/2024, Expires: 08/07/2025Start: 08-07-2024 End: 14-73-5388Hbdjmuy encounter procedureNOMS NMA PODComment on above:Arrived Start: 07-18-2024 End: 73-43-8978Icynclv encounter procedureNOMS NMA PODComment on above:Arrived Start: 2024 End: 51-17-2663Damspym encounter ownqhuxfc59/14/2025 10:20 AM EDT Office Visit [facility] [address] [place] [address] Wfjsy, Marc D, DPM FACFAS [address] [place] [address] ArrivedNOMS NMA PODComment on above:ArrivedStart: 06-04-2024 End: 14-64-3161Cxdwtqp encounter odlngpztt72/14/2025 10:40 AM EDT Office Visit [facility] GARC[facility] [address] [place] [phone] Valentina Mike PA [address] [place], [place] [phone] ArrivedGHULAM GARCIAComment on above:ArrivedStart: 05-17-2024 End: 77-05-0400Smbqfop encounter xtoeqpyqb47/27/2025 8:40 AM EDT Office Visit [facility] GARCIA [address] [place] [phone] Damien Jones NP [address] [place], [place] [address] [facility] GOFFtart: 05-08-2024 End: 85-84-1844Odernvs encounter elnvfuhvv38/18/2025 9:30 AM EDT Procedure Visit [facility] [address] [place] [address] Bhanu Charlton, DPM FACFAS [address] [place] [address] [facility]OM[facility] NMA PODStart: 02-29-2024 End: 24-96-6139Khpoiek encounter procedureNOMS [facility] ROUTEComment on above:ArrivedStart: 02-28-2024 End: 20-04-5025Opkvrmi encounter procedureNOMS NMA PODComment on above:Arrived Start: 02-23-2024 End: 72-10-4675Gksxqpe encounter kzmishhby66/02/2025 10:50 AM EST Procedure Visit [facility] [address] [place] [address] Sabra Frias DMD [address] [place] [address] [facility] Start: 02-01-2024 End: 59-94-3508Cyemwxd evaluation of patient and rqmziu0602/01/2024 9:00 AM EST [facility] [address] [place] [address] Penny Denton RN [address] [place], [place] [address]ImdtuGaorsjSamaritan Hospital Pre-Admission TestingStart: 12-15-2023 End: 96-18-6757Gvkwfcd encounter lqbqcepvl26/24/2024 12:00 PM EDT Procedure Visit [facility] [address] [place] [address] Sabra Frias DMD [address] [place] [address] [facility] Start: 12-09-2023 End: 14-27-3290Hiufyxr encounter jbbvilywn65/18/2024 12:40 PM EDT Office Visit [facility] [address] [place] [address] Tylerlizeth Ivory Gates, IMAN-MEDIA MARKETING COORDINATOR [address] [place] [address] ArrivedNOMS SWS DERMComment on above: ArrivedStart: 57-91-1608Lkiemlrtg vaccinationInfluenza Vaccine (#1)[facility] Start: 10-27-2023 End: 58-97-5796Ucvqxvj encounter vrtbndxqy04/05/2024 9:30 AM EDT Office Visit [facility] [place] [address] [place] [address] Case Melchor MD [address] [place] [phone] [facility]: 55-72-1070UOPTX-19 Vaccine ( season)COVID-19 Vaccine ( season)[facility]HealthStart: 10-23-2023 COVID-19 Vaccine ( season)COVID-19 Vaccine ( season) [facility]HealthStart: 81-03-3482Nlahfegjj vaccinationMetroHealthStart: 39-91-7537QZ of head without contrastCT head/brain wo [facility] Start: 99-39-5267VB Unspecified body region WO contrastAdams County Hospitaltart: 38-66-5929Vggzzjsing radiography of abdomenAdams County Hospitaltart: 45-61-6641Ikuyekar identified in Urine by Culture [facility] Hospitaltart: 07-28-2023 End: 13-42-3595Mwgylwg encounter vnsgrrurs69/06/2024 2:30 PM EDT Office Visit [facility] [address] [place] [address] Case Melchor MD [address] [place] [address] [facility] FremontStart: 07-28-2023 End: 68-53-4911JjrqcictKiaulhne Lab Routine Hyponatremia Expected: 07/28/2023 (Approximate), Expires: 07/20/2024[facility] Work Phone: Comment on above:Expected: 07/28/2023 (Approximate), Expires: 07/20/2024Start: 07-28-2023 End: 58-69-7821Srwnlejqza of Serum or PlasmaOsmolality Lab Routine Hyponatremia Expected: 07/28/2023 (Approximate), Expires: 07/20/2024[facility] Comment on above:Expected: 07/28/2023 (Approximate), Expires: 07/20/2024Start: 07-28-2023 End: 08-87-0508Ddbsccbano, urineOsmolality, urine Lab Routine Hyponatremia Expected: 07/28/2023 (Approximate), Expires: 07/20/2024[facility] Comment on above:Expected: 07/28/2023 (Approximate), Expires: 07/20/2024Start: 07-28-2023 End: 81-59-6058LXZ with ReflexTSH with Reflex Lab Routine Hyponatremia Expected: 07/28/2023 (Approximate), Expires: 07/20/2024[facility] CenterComment on above:Expected: 07/28/2023 (Approximate), Expires: 07/20/2024Start: 07-28-2023 End: 02-78-7794Myfex [Mass/volume] in Serum or PlasmaUric acid Lab Routine Hyponatremia Expected: 07/28/2023 (Approximate), Expires: 07/20/2024[facility] CenterComment on above:Expected: 07/28/2023 (Approximate), Expires: 07/20/2024Start: 06-09-2023 End: 90-24-4559Opojznq encounter /18/2024 10:00 AM EDT Office [facility] [address] [place] [address] [facility]/GynecologyStart: 02-29-6850UfchckdbzAdams County Hospitaltart: 67-74-3421BxxgaugtlAdams County Hospitaltart: 65-32-3077OqmwyoovpAdams County Hospitaltart: 06-56-8076MmcyppbylAdams County Hospitaltart: 44-85-3210AfwcxowcqAdams County Hospitaltart: 06-85-1204SdnrwgungAdams County Hospitaltart: 18-74-9330YqrfrtpldAdams County Hospitaltart: 06-01-2023 End: 50-81-5569DiaynyvdpAdams County Hospitaltart: 93-59-0426TjnisbrjtAdams County Hospitaltart: 35-41-9976Pskrnwtuvchvu metabolic 2000 panel - Serum or PlasmaAdams County Hospitaltart: 05-30-2023 End: 83-75-2676EjiorhwodAdams County Hospitaltart: 40-22-5593Ltxvohou admissionAdams County Hospitaltart: 91-50-7079IpqvkdjjwAdams County Hospitaltart: 56-75-3229Msmlqbdl identified in Blood by CultureAdams County Hospitaltart: 32-41-4619Xvitr culture for bacteria, including anaerobic screenBlood CultureAdams County Hospitaltart: 05-29-2023 [facility]: 67-04-0897OXEQN-19 Vaccine ( season)COVID-19 Vaccine ()[facility]: [facility] End: 95-05-6716Xkwknht encounter dfwpanvss05/13/2023 Procedure Visit Dentistry Holli Nguyen, DDS [address] [place] [address] [facility] 11-21-2021 Influenza vaccinationInfluenza Vaccine (#1)[facility]: 66-61-3180SDUAA-19 Vaccine (4 - Booster for Pfizer series)COVID-19 Vaccine (4 - Booster for Pfizer series)[facility]: 24-40-9441Cmheuxfdh for malignant neoplasm of cervix [facility]: 31-20-0611NDW Vaccine (optional start 27-45 years)HPV Vaccine (optional start 27-45 years)[facility]: 72-79-4952Tqandw wellness visitAnnual Wellness Visit ([id number])[facility]: 77-71-8526Dsuenidui for malignant neoplasm of cervixPap SmearMetroHealthStart: 17-76-4017TGmA,Tdap and Td Vaccines (1 - Tdap)DTaP,Tdap and Td Vaccines (1 - Tdap)[facility]: 83-71-1080Kbckwmrpk A (HAV) Vaccine (optional start 19+ years) Hepatitis A (HAV) Vaccine (optional start 19+ years)[facility]HealthStart: 2004 Adult BMI Follow Up PlanAdult BMI Follow Up PlanProUniversity Hospitals [facility] SystemStart: 81-39-4746Tqdnu BMI ScreeningAdult BMI ScreeningProUniversity Hospitals E[facility] SystemStart: 43-60-7947Dommegvgb C screeningHepatitis C AntibodyMetroHealthStart: 2001 HIV screeningHIV TestMetroHealthStart: 28-24-7248Rlxykm wellness visitAnnual Wellness Visit (G0438)MetroHealthStart: 51-08-8564Qslznzocoo ScreeningDepression ScreeningProUniversity Hospitals E[facility] SystemStart: 20-76-9404Xdywypt ScreeningTobacco ScreeningProUniversity Hospitals [facility] SystemStart: 84-57-8315Cdsrdpbqi for malignant neoplasm of breastMetroHealth End: 58-58-5587Gfpts metabolic 2000 panel - Serum or PlasmaBasic Metabolic Panel Lab Routine Hyponatremia 1 Occurrences starting 05/25/2023 until 05/24/2024[facility] Work Phone: Comment on above:1 Occurrences starting 05/25/2023 until 05/24/2024 End: 34-64-1902Aywdi metabolic 2000 panel - Serum or PlasmaBASIC METABOLIC PANEL Lab Routine Pre-op evaluation 1 Occurrences starting 09/21/2024 until 09/22/19 26[facility] Work Phone: Comment on above:1 Occurrences starting 09/21/2024 until 09/21/2025 End: 77-30-1017VXP panel - Blood by Automated countCBC without diff Lab Routine Hyponatremia 1 Occurrences starting 05/25/2023 until 05/24/2024ProUniversity Hospitals [facility] SystemComment on above:1 Occurrences starting 05/25/2023 until 05/24/2024BC panel - Blood by Automated countCOMPLETE BLOOD COUNT Lab Routine Pre-op evaluation Ordered: 09/21/2024MetroHealthComment on above:Ordered: 09/21/2024 Cefuroxime free [Mass/volume] in Serum or PlasmaCity HospitalDENTAL RESTORATIONSDENTAL RESTORATIONS Routine scheduled CariesMetroHealth End: 67-56-3504Tevuvwlmm [Mass/volume] in Serum or PlasmaMagnesium Lab Routine Hyponatremia 1 Occurrences starting 05/25/2023 until 05/24/2024ProUniversity Hospitals [facility] SystemComment on above:1 Occurrences starting 05/25/2023 until 05/24/2024Patient EducationConstipation, Adult (DC) Headache, Adult (DC)[facility] Work Phone: Patient referralKettering Health [facility] Work Phone: End: 32-98-2560Fxmduwirn [Mass/volume] in Serum or PlasmaPhosphorus Lab Routine Hyponatremia 1 Occurrences starting 05/25/2023 until 05/24/2024ProUniversity Hospitals [facility] SystemComment on above:1 Occurrences starting 05/25/2023 until 05/24/2024 End: 66-78-7003Xtbqlew creat ratioProtein creat ratio Lab Routine Hyponatremia 1 Occurrences starting 05/25/2023 until 05/24/2024ProUniversity Hospitals [facility] SystemComment on above:1 Occurrences starting 05/25/2023 until 05/24/2024Sodium [Moles/volume] in Serum or PlasmaSodium Lab Routine Hyponatremia Ordered: 02/29/2024[facility] Work Phone: comment on above:Ordered: 02/29/2024 End: 90-49-1411Fgzipf, urine, randomSodium, urine, random Lab Routine Hyponatremia 1 Occurrences starting 07/28/2023 until 07/20/2024[facility] CenterComment [facility] above:1 Occurrences starting 07/28/2023 until 07/20/2024 End: 09-83-4335SgtkhinckuAbqjfrgewh Lab Routine Hyponatremia 1 Occurrences starting 05/25/2023 until 05/24/2024[facility] CenterComment on above:1 Occurrences starting 05/25/2023 until 05/24/2024Urine Creatinine,RdmUrine Creatinine,Rdm Lab Routine Hyponatremia Ordered: 07/28/2023[facility] HospitalComment on above:Ordered: 07/28/2023 End: 82-53-0746Tcgrv test visual color cmprsn methsURINE HCG-IN OFFICE Lab Routine One time for 1 Occurrences starting 12/15/2023 until 12/15/2023[facility] Work Phone: comment on above:One time for 1 Occurrences starting 12/15/2023 until 12/15/2023 Immunizations Immunization DateImmunizationNotesCare UnqzozqkTetcoxax97-10-2812mtnegplhy virus vaccine, unspecified formulationIvory NAPOLES Work Phone: [facility] SystemQcjnuzuvfy75-86-2068uxvlupdlv virus vaccine, unspecified formulationCase Melchor MD Work Phone: [facility] CenterAfavli35-18-8529llhotbsxe, injectable, quadrivalent, preservative xflxSkwtsFkuneq02-89-2112tgcoshnpi virus vaccine, unspecified nmtaypzfeijDlpquRwlrfo72-71-1422Ohssov (12+ yrs) SARS-COV-2 (COVID-19) vaccine, mRNA, spike protein, LNP, pres. free, 30 mcg/0.3mL dose (ONQ=276)XyxkxPghuuz53-30-3827Tffajx (12+ yrs) SARS-COV-2 (COVID-19) vaccine, mRNA, spike protein, LNP, pres. free, 30 mcg/0.3mL dose (IRC=916)[facility] 44-47-6535lctdkjjnx, injectable, quadrivalent, preservative freeMagruder Memorial Hospital 86-76-6126rbxowjp toxoid, reduced diphtheria toxoid, and acellular pertussis vaccine, qfzlogyoLxqktQmxbae40-35-9898sqjmnzsnu, injectable, quadrivalent, preservative gjfwIrcvzNdokzz27-62-8823qjnblsxhv, injectable, quadrivalent, contains lremubgjoeyaVmuwvLcwdqx21-06-0762ythrkkpca, injectable, quadrivalent, preservative bnzvExbakWjgiue82-75-5819kfvrkcqhj, seasonal, injectableMetroMemorial Health System [facility] 27-44-8125lusblbevvojbo polysaccharide (groups A, C, Y and W-135) diphtheria toxoid conjugate vaccine (MCV4P)UudenIpeakf71-51-0274AM(adult) unspecified rkucsmpwdqdFuedtYikase42-81-7268alhzaiqmz B vaccine, pediatric or pediatric/adolescent gishffXndmjHsulcg46-89-2037ipxzwzpfl B vaccine, pediatric or pediatric/adolescent osebqhUpaddZnvsdl84-70-5846kiqvcvowl B vaccine, pediatric or pediatric/adolescent vasinvCvgzfWheoxv74-72-8666zvgyqfl, mumps and rubella virus ldsukzmNzfhiEbzrlc86-50-3561IN(adult) unspecified formulation VuossVfvdyg59-10-4033dupquxozk poliovirus vaccine, live, oralMetroMemorial Health System [facility] 83-95-8169xbgtcejljr, tetanus toxoids and pertussis bdlurugYywnaJkuihn12-11-0556 trivalent poliovirus vaccine, live, akdyTxtkoZfeakh43-02-1120jzfgbfabtpl influenzae type b vaccine, conjugate unspecified formulationMag[facility] 93-35-1690iwqxurm, mumps and rubella virus bzkwiupNqlgeXyerkp58-54-6896 diphtheria, tetanus toxoids and pertussis sqcrobyLlglsCucmru87-32-4393 diphtheria, tetanus toxoids and pertussis ndzbaoqNisqgRrsagz53-87-0588bvbyhwamx poliovirus vaccine, live, zcwpQvsmkGiuhtp12-60-0153gfenqpfvle, tetanus toxoids and pertussis erxuxwtKeglmYckiga29-53-8275kvwdlhqdu poliovirus vaccine, live, oralMetroHealth Payers DatePayer CategoryPayerPolicy [id number] --Stand AloneDENTAL-MEDICAID [id number] 2019Medicaid [id number] 2008Medicare FFEDICARE [id number] 2007Medicare 1.2.840.[id number] 2..1.358055.3.57[id number] 2..1.315945.3.579.[id number] 2..1.090668.3.579.[id number] 2..1.232963.3.579.2.33600-58-6520Wnrqieo81844570 2..1.054364.3.57[id number] 2.0.1.726046.3.57[id number] 2..1.557888.3.579.[id number] 2.16.840.1.362500.3.579.2.0006[id number] 2.16.840.1.198145.3.579.2.060340-25-8127Ecddvzi353720437 2.16.840.1.681473.3.579.2.227126-50-3110Wrgxzph570170254 2.16.840.1.688602.3.579.2.33191-85-4207Kuoiypc482368400 2.16840.1.523036.3.579.2.51096-89-0866Dwkfqdx177569897 2.16840.1.830726.3.579.2.72587-07-2882Tyjfbli859978554 2.840.1.075701.3.579.2.43519-43-6325Lxljhys037649929 2.16840.1.998388.3.579.2.44948-53-4290Fyspgjm130615327 2.16840.1.428517.3.579.2.31299-29-1499Dwlnfwe177070099 2.16840.1.693922.3.579.2.06201-03-9860Tfultkg441868623 2.840.1.571078.3.579.2.50150-76-8295Yeyaqhu86942576 2.16840.1.873658.3.579.2.663143-53-2772Hvxbhln29950371 2.16840.1.355309.3.579.2.141496-37-4905Fsowykf00457785 2.16840.1.122797.3.579.2.660319-84-4364Tsnzdmz69049209 2.16.840.1.230256.3.579.2.896111-93-5244Jwznqzw1233594 2.16.840.1.471549.3.579.2.492687-53-9585Isdeqhq3604322 2.16.840.1.255961.3.579.2.824385-01-5779Ueraeiy1217597 2.16.840.1.805448.3.579.2.283052-48-5000Alxysmh2242794 2.16.840.1.143790.3.579.2.464277-22-7641Ypdjndu4719592 2.16.840.1.446176.3.579.2.967558-58-7530Etbqysz2522046 2.16.840.1.731229.3.579.2.209482-16-8916Npiznkt7356255 2.16.840.1.083313.3.579.2.762110-34-4547Kqqxkwi873398934 2.16.840.1.060518.3.579.2.514898-55-7755Jwzurwi886373859 2.16.840.1.778123.3.579.2.1286 [id number] 1960Medicare [id number] Social History DateTypeDetailFacilityStart: 06-13-2020 End: 09-68-6725Clcbvmz smoking status NHISNever smoked tobaccoMetroHealth Work Phone: Start: 06-13-2020 End: 44-29-4695Ynztcjv use and exposureSmokeless tobacco non-userMetroHealth Start: 07-15-2020 End: 89-41-1918Idjoqzb intakeLifetime non-drinker (finding)MetroHealthStart: 66-54-8554Nvnfuso SDOH Alcohol Qajjappuq8CmyeiCdlbpdHoezk: 93-76-0400Ptd Assigned At BirthNot on fileMetroMemorial Health System Marietta Memorial HospitalTobacco smoking statusNo Smoking Status EnteredUniversity Hospitals Lake West Medical Centertart: 07-15-2020 End: 97-19-9754Ywh Assigned At [facility]Fe[facility] Hospitaltart: 66-70-8134Ufj Assigned At [facility]art: 96-53-8268Trrgqfh smoking status NHISUnknown if ever smokedAdams County Hospitaltart: 07-15-2020 End: 66-93-9817Hqspcih of Social functionMetroHealthStart: 01-12-2012 End: 94-18-3786OcyMzfqhz (finding)MetroHealthStart: 02-01-2024 End: 59-61-1939Nehuiau of drug misuse behaviorHas never misused drugs (situation)MetroHealthNEGATED: Highlighted rowCity Hospital Goals DatePatient GoalDesired Activity/State Functional Status EnnnMrpzfsupttVmvwvwDwnpddyr07-12-3826Ivqzdafpuw statusPatient at Baseline [facility] Work Phone: Mental Status MieeFdcubbppyySxskbiZzcvhszk76-53-5655Kwfuiyual functionCognitive Status [facility] at [facility] Work Phone: Clinical Notes 06-10-2022 to 11-20-2024 Note Date & PfqpKccjMvuzjish08-42-7149 Miscellaneous Notes* Telephone Encounter - Luz Marina Nunez LPN - 11/20/2024 12:56 PM EDT [facility] called request last office note to be faxed to [phone]. Office note faxed. documented in this encounterFairfield Medical Center09-30-2025 Telephone encounter Note* Telephone Encounter - Luz Marina Nunez LPN - 11/20/2024 12:56 PM EDT [facility] called request last office note to be faxed to [phone]. Office note faxed. [employer]09-30-2025 History of Present illness Narrative* EDENILSON Morton [...] form dated (11/20/2024). HPI (08/09/2024) Eve Haque MEDIA MARKETING COORDINATOR: Migdalia Connelly is a 39 y.o. female who presents with right breastchanges. History obtained from chart reviewed, additional information provided primarily by the facility staff present with her but patient is able to offer some input as well. Patient was seen by ELECTRONIC TEST TECHNICIAN on 08/07/24 with complaints of right breast and nipple tenderness/inversion that started on 08/02. This progressed t/o the course of several days to include swelling, firmness, redness and warmth. Clindamycin was initiated on 08/05. BDM, U/S, and breast MRI ordered. She is scheduled for BDM and U/S on 08/28 at [facility]. Patient does note some improvement since starting Clindamycin. Pleating Supervisor feels redness is improved compared to earlier in the week. Past Medical History Past Medical History: Diagnosis Date Astigmatism Attention deficit disorder with hyperactivity Bipolar 1 disorder (CMS-HCC) Constipation Dissociative disorder GERD (gastroesophageal reflux disease) History of pineal cyst Hormone imbalance Hypercholesterolemia Hyperopia Hypertension Impulse control disorder Moderate intellectual disability Mood disorder OCD (obsessive compulsive disorder) Osteopenia Patellar bursitis, right Pituitary microadenoma ([facility]) PTSD (post-traumatic stress disorder) Seizure disorder ([facility]) Past Surgical History Past Surgical History: [...] PA-C [facility] EDENILSON Morton 11/20/24 1112 documented in this encounterOhioHealthAllurion Technologies09-24-2025 History of Present illness Narrative* Bhanu [...] deficit disorder with hyperactivity 05/25/2012 Bipolar disorder ([facility]) 05/04/2023 Essential hypertension 05/04/2023 Seizure disorder ([facility]) 05/04/2023 Pure hypercholesterolemia 05/04/2023 Anger reaction 07/14/2023 Convulsion ([facility]) 07/14/2023 Alteration of consciousness 07/14/2023 Development delay 07/14/2023 Resolved Ambulatory Problems Diagnosis Date Noted No Resolved Ambulatory Problems Past Medical History: Diagnosis Date ADHD (attention deficit hyperactivity disorder) Astigmatism Convulsions ([facility]) Developmental delay GERD (gastroesophageal reflux disease) Hypercholesterolemia Hyperopia Hypertension Impulse control disorder Intellectual disability Mental disorder Mood disorder OCD (obsessive compulsive disorder) Osteopenia PTSD (post-traumatic stress disorder) Seizures ([facility]) Medications: Current Outpatient Medications: acetaminophen (Tylenol) [...] subungual debris. They were painful to palpation 58417 on the right 32010 on the left. VASC: DP /PT were nonpalpable bilateral. Capillary refill time < 3 seconds Digits 1-5 bilateral NEURO: [place] Ami 5.07 monofilament was intact B/L. Vibratory [...] 1through 10. DAY Laura documented in this encounterFreeman Health SystemOcihaqzdnm06-70-0816 Hospital Discharge instructions* Discharge Instructions* Yady Lewis RN - 10/08/2024 9:34 AM EDT Basic Extraction Instructions - [employer] [facility] - Department of Dentistry Biting on [...] was done to speak with a dentist. [facility] [phone]; [facility] [phone];and [place] [phone]. On the weekends or evenings you can contact the Dental Resident stock preparation operator at [phone] and ask the side stitching machine operator to page the Dental Resident. HELPING [...] you may contact your physician by calling [phone] and asking for the resident stock preparation operator for DENTAL service. Special Care Needs: Activity: [...] very uncomfortable and can t urinate, call [phone] or come to the emergency room. A [...] going instructions. Rev. 09/26 documented in this izwdmdavwQyhrbJqygfh77-85-7892 Surgery Postoperative evaluation and management note* Brief Operative Note - Risa Black DDS - 10/08/2024 8:06 AM EDT Brief Operative Note [facility] OR 3 Migdalia Connelly 39 year old female Surgical Contact Serial Number: [id number] Preoperative Diagnosis: Pre-op Diagnosis * Caries [K02.9] [...] Posttraumatic stress disorder Procedures: Full mouth xrays [39079] Comprehensive exam [24349] Prophy [34030] Fluoride application [75751] Restorative [04510] Surgical extractions [03865] Surgeon(s): Surgeon(s): Og Grant DDS Staff: Citrus Picker Nurse: Rosanna Monroe RN Dental Resident: Risa Black DDS Anesthesia: General Anesthesiologist: Kedar Moralez MD Hand Fretted Instrument Maker: Randi Rico MD; Enio Wells MD Specimen(s): [...] Grant DDS at 10/08/2024 9:49 AM EDT JuspfTlszne67-41-1472 Surgery Surgical operation note* OP Note - Risa Black DDS - 10/08/2024 8:06 AM EDT Operative Note [facility] OR 3 Migdalia Connelly 39 year old female Surgical Contact Serial Number: [id number] Preoperative Diagnosis: Pre-op Diagnosis * Caries [K02.9] [...] Posttraumatic stress disorder Procedures: Full mouth xrays [80099] Comprehensive exam [43581] Prophy [54064] Fluoride application [19899] Restorative [70041] Surgical extractions [44005] Surgeon(s): Surgeon(s): Og Grant DDS Staff: Citrus Picker Nurse: Rosanna Monroe RN Dental Resident: Risa [...] Grant DDS at 10/08/2024 9:50 AM EDT HztlvOspuir25-95-6251 Miscellaneous Notes* Brief Operative Note - Risa Black DDS - 10/08/2024 8:06 AM EDT Brief Operative Note [facility] OR 3 Migdalia Connelly 39 year old female Surgical Contact Serial Number: [id number] Preoperative Diagnosis: Pre-op Diagnosis * Caries [K02.9] [...] Posttraumatic stress disorder Procedures: Full mouth xrays [49550] Comprehensive exam [00899] Prophy [96392] Fluoride application [56815] Restorative [80273] Surgical extractions [78329] Surgeon(s): Surgeon(s): Og Grant DDS Staff: Citrus Picker Nurse: Rosanna Monroe RN Dental Resident: Risa Black DDS Anesthesia: General Anesthesiologist: Kedar Moralez MD Hand Fretted Instrument Maker: Randi Rico MD; Enio Wells MD Specimen(s): [...] year old female Surgical Contact Serial Number: [id number] Preoperative Diagnosis: Pre-op Diagnosis * Caries [K02.9] [...] Posttraumatic stress disorder Procedures: Full mouth xrays [40141] Comprehensive exam [26584] Prophy [86358] Fluoride application [68643] Restorative [57233] Surgical extractions [96716] Surgeon(s): Surgeon(s): Og Grant DDS Staff: Citrus Picker Nurse: Rosanna Monroe RN Dental Resident: Risa [...] 10/08/2024 9:50 AM EDT documented in this xmqqstzceNhpujQtdpgg43-56-9948 History of Present illness Narrative* Og Grant [...] Note Type: OP Note Status: Cosign Needed Supervisor Rework: Risa Black DDS (Resident) Cosign Required: Yes Operative Note [facility] OR 3 Migdalia Connelly 39 year old female Surgical Contact Serial Number: [id number] Preoperative Diagnosis: Pre-op Diagnosis * Caries [K02.9] [...] Posttraumatic stress disorder Procedures: Full mouth xrays [48334] Comprehensive exam [87203] Prophy [50405] Fluoride application [10702] Restorative [68322] Surgical extractions [10549] Surgeon(s): Surgeon(s): Og Grant DDS Staff: Citrus Picker Nurse: Rosanna Monroe RN Dental Resident: Risa [...] 2024 at 9:50:51 AM ----- ----- Provider: [id number] Ed Obrien DDS -- Clinic: [facility] ----- documented in this nsmowerlgDvvplRzxdps47-07-4039 Telephone encounter Note* Telephone Encounter - Megha Sanchez RN - 10/03/2024 10:[address] Chatman made aware that CBC and CMP [facility] 05/03/24 [facility] [place] Addendum: Dr. Chatman states that he has reviewed labs and results are acceptable on 10/04 via secureTSCAt. YofozCznovn12-87-6559 Miscellaneous Notes* Telephone Encounter - Megha Sanchez RN - 10/03/2024 10:[address] Chatman made aware that CBC and CMP from 05/03/24 received from [facility]. documented in this dxvzvwyklXxyrpTexcup70-50-6736 Miscellaneous Notes* Telephone Encounter - Megha Sanchez RN - 10/03/2024 10:[address] Chatman made aware that CBC and CMP from 05/03/24 [facility]. Addendum: Dr. Chatman states that he has reviewed labs and results are acceptable on 10/04 via securechat. documented in this h[id number] History of Present illness Narrative* Bhanu Charlton, [...] < 3 seconds Digits 1-5 bilateral NEURO: [place] Ami 5.07 monofilament was intact B/L. Vibratory [...] Bhanu Charlton DPM FACFAS documented in this encounterFreeman Health SystemNjqmcayyqg6131 NoteAnesthesia consent obtained by Dr. Velez for 10/08 dental procedure and scanned into [facility]08-08-2025 Telephone encounter Note* Telephone Encounter - Megha Sanchez RN - 09/28/2024 3:42 PM EDT Anesthesia consent obtained by Dr. Velez for 10/08 dental procedure and scanned into [facility]. WhqcnVlbunj79-26-3756 Miscellaneous Notes* Telephone Encounter - Megha Sanchez RN - 09/28/2024 3:42 PM EDT Anesthesia consent obtained by Dr. Velez for 10/08 dental procedure and scanned into [facility]. documented in this [id number] Instructions* Patient Instructions* Glenn Chatman MD - [...] surgery Glenn Chatman MD documented in this z[id number] History of Present illness Narrative* Glenn Chatman [...] fever, chills, night sweats, and weight loss [employer] ARCHITECT: h/o Seizures on AEDs Microadenoma in Pituitary [...] pending : at baseline Glenn Chatman MD [phone] [1] Allergies Allergen Reactions Abilify Amoxicillin Depakote [Valproic Acid] Per OSH H+P 08/2018 Food Pteerson Slaw Metyrosine Moban [Molindone] Nubain [Nalbuphine] Sympathomimetics Vicks 44 Cough Relief [Dextromethorphan Hbr] [2] Past Medical History: Diagnosis Date Attention deficit hyperactivity disorder (ADHD) 05/25/2012 Attention deficit disorder with hyperactivity Caries 09/05/2018 Added automatically from request for surgery [id number] Constipation Per OSH H+P 08/2018 Dental decay 08/26/2016 Added automatically from request for surgery [id number] Developmental delay Per OSH H+P 08/2018 Hormone [...] DENTAL RESTORATIONS; Surgeon: Bhavin Valdovinos DDS; Location: [facility]; Service: Dental DENTAL RESTORATIONS N/A 09/15/2018 Procedure: DENTAL RESTORATIONS; Surgeon: Og Grant DDS; Location: [facility]; Service: Dental DENTAL RESTORATIONS Bilateral 07/14/2020 Procedure: DENTAL RESTORATIONS; Surgeon: Og Grant DDS; Location: [facility]; Service: Dental [4] Social History Tobacco Use Smoking Status Never Smokeless Tobacco Never documented in this q[id number] History of Present illness Narrative* Linn Red [...] disorder) Osteopenia Patellar bursitis, right Pituitary microadenoma ([facility]) PTSD (post-traumatic stress disorder) Seizure disorder ([facility]) SURGICAL HX Past Surgical History: Procedure [...] mammogram and ultrasound results with patient and animal caretaker supervisor. Discussed how the patient has been feeling since she finished her antibiotics. Discussed the patients skin picking could bethe source of infection. Advised to keep appointment with breast clinic. Recommend yearly mammograms. FOREST CLEMENTE 09/04/24 1046 LINN RED MD documented in this encounterOhioHealthLiquid State Kalkaska Memorial Health CenterXoallq44-14-9666 History of Present illness Narrative* Bhanu Charlton [...] deficit disorder with hyperactivity 05/25/2012 Bipolar disorder ([facility]) 05/04/2023 Essential hypertension 05/04/2023 Seizure disorder ([facility]) 05/04/2023 Pure hypercholesterolemia 05/04/2023 Anger reaction 07/14/2023 Convulsion ([facility]) 07/14/2023 Alteration of consciousness 07/14/2023 Development delay 07/14/2023 Resolved Ambulatory Problems Diagnosis Date Noted No Resolved Ambulatory Problems Past Medical History: Diagnosis Date ADHD (attention deficit hyperactivity disorder) Astigmatism Convulsions ([facility]) Developmental delay GERD (gastroesophageal reflux disease) Hypercholesterolemia Hyperopia Hypertension Impulse control disorder Intellectual disability Mental disorder Mood disorder OCD (obsessive compulsive disorder) Osteopenia PTSD (post-traumatic stress disorder) Seizures ([facility]) Medications: Current Outpatient Medications: acetaminophen (Tylenol) [...] < 3 seconds Digits 1-5 bilateral NEURO: [place] Ami 5.07 monofilament was intact B/L. Vibratory [...] up 1month DAY Laura documented in this encounterFreeman Health SystemAjodcaaujw10-40-8342 History of Present illness Narrative* Eve Haque, PANTOGRAPHER-MEDIA MARKETING COORDINATOR - 08/09/2024 9:30 AM EDT Images from [...] input as well. Patient was seen by ELECTRONIC TEST TECHNICIAN on 08/07/24 with complaints of right breast and nipple tenderness/inversion that started on 08/02. This progressed t/o the course of several days to include swelling, firmness, redness and warmth. Clindamycin was initiated on 08/05. BDM, U/S, and breast MRI ordered. She is scheduled for BDM and U/S on 08/28 at [facility]. Patient does note some improvement since starting Clindamycin. Pleating Supervisor feels redness is improved compared to earlier [...] medications, and allergies have been reviewed in [facility]. PAST MEDICAL HISTORY: Past Medical History: Diagnosis [...] care provider present. Spoke with staff at [facility] - patient will be worked in today for BD and U/S. Will await results to determine next steps, as appropriate. Continue antibiotic course as advised. Follow up pending results of testing. The patient understands and agrees with the plan as discussed. All questions answered. Eve Haque CNP [facility] Total time spent was 39 minutes: Preparing to see the patient (e.g., review of tests) Obtaining and/or reviewing separately obtained history Performing a medically appropriate examination and/or evaluation Counseling and educating the patient/family/caregiver Ordering medications, tests, or procedures Referring and communicating with other health caregivers non medical (not separately reported) Documenting clinical information in the electronic or other health record Independently interpreting results (not separately reported) and communicating results to the patient/family/caregiver YESIKA Armstrong 08/09/24 1711 documented in this encounterFairfield Medical Center06-17-2025 History of Present illness Narrative* [...] mammogram. Discussed follow up care with patients animal caretaker supervisor who believes she will tolerate a mammogram, she states if CT is needed she may need some sedation. Mammogram, ultrasound, MRI, and breast specialist requisition provided. FU 4-6WKS MD DAMON MILLER, [facility] Aundrea Leis 08/07/24 1447 Aundrea Leis 08/07/24 1458 documented in this encounterFairfield Medical Center06-17-2025 History of Present illness Narrative* [...] (HCC) 05/04/2023 Essential hypertension 05/04/2023 Seizure disorder ([facility]) 05/04/2023 Pure hypercholesterolemia 05/04/2023 Anger reaction 07/14/2023 Convulsion ([facility]) 07/14/2023 Alteration of consciousness 07/14/2023 Development delay 07/14/2023 Resolved Ambulatory Problems Diagnosis Date Noted No Resolved Ambulatory Problems Past Medical History: Diagnosis Date ADHD (attention deficit hyperactivity disorder) Astigmatism Convulsions ([facility]) Developmental delay GERD (gastroesophageal reflux disease) [...] subungual debris. They were painful to palpation 03139 on the right 79424 on the left. VASC: DP /PT were nonpalpable bilateral. Capillary refill time < 3 seconds Digits 1-5 bilateral NEURO: [place] Ami 5.07 monofilament was intact B/L. Vibratory [...] modifications she will be going to an coiled tubing supervisor to have new shoes purchase follow up 2 weeks for reexamine. DAY Laura documented in this encounterFreeman Health [id number] History of Present illness Narrative* DAY Laura [...] Date Noted Attention deficit disorder with hyperactivity ([facility]) 05/25/2012 Bipolar disorder 05/04/2023 Essential hypertension ([facility]) 05/04/2023 Seizure disorder ([facility]) 05/04/2023 Pure hypercholesterolemia ([facility]) 05/04/2023 Anger reaction 07/14/2023 Convulsion ([facility]) 07/14/2023 Alteration of consciousness 07/14/2023 Development delay 07/14/2023 Resolved Ambulatory Problems Diagnosis Date Noted No Resolved Ambulatory Problems Past Medical History: Diagnosis Date ADHD (attention deficit hyperactivity disorder) ([facility]) Astigmatism Convulsions ([facility]) Developmental delay GERD (gastroesophageal reflux disease) Hypercholesterolemia ([facility]) Hyperopia Hypertension ([facility]) Impulse control disorder ([facility]) Intellectual disability ([facility]) Mental disorder Mood disorder ([facility]) OCD (obsessive compulsive disorder) ([facility]) Osteopenia PTSD (post-traumatic stress disorder) ([facility]) Seizures ([facility]) Medications: Current Outpatient Medications: acetaminophen (Tylenol) [...] up p.r.n. DAY Laura documented in this encounterFreeman Health SystemMpzgsolkpr10-78-2558 History of Present illness Narrative* DAY Laura [...] Date Noted Attention deficit disorder with hyperactivity ([facility]/HCC) 05/25/2012 Bipolar disorder 05/04/2023 Essential hypertension ([facility]) 05/04/2023 Seizure disorder ([facility]) 05/04/2023 Pure hypercholesterolemia ([facility]) 05/04/2023 Anger reaction 07/14/2023 Convulsion ([facility]) 07/14/2023 Alteration of consciousness 07/14/2023 Development delay 07/14/2023 Resolved Ambulatory Problems Diagnosis Date Noted No Resolved Ambulatory Problems Past Medical History: Diagnosis Date ADHD (attention deficit hyperactivity disorder) ([facility]) Astigmatism Convulsions ([facility]) Developmental delay GERD (gastroesophageal reflux disease) Hypercholesterolemia ([facility]) Hyperopia Hypertension ([facility]) Impulse control disorder ([facility]) Intellectual disability ([facility]) Mental disorder Mood disorder ([facility]) OCD (obsessive compulsive disorder) ([facility]) Osteopenia PTSD (post-traumatic stress disorder) ([facility]) Seizures ([facility]) Medications: Current Outpatient Medications: acetaminophen (Tylenol) [...] < 3 seconds Digits 1-5 bilateral NEURO: [place] Ami 5.07 monofilament was intact B/L. Vibratory [...] Bhanu Charlton DPM FACBART documented in this encounterFreeman Health [id number] History of Present illness Narrative* Zaid Joshua [...] nursing note reviewed. Exam conducted with a repair miller present. Constitutional: General: She is not in [...] TARIK Leblanc 06/13/24 1415 documented in this encounterFairfield Medical Center04-14-2025 History of Present illness Narrative* EDENILSON Rush - 06/04/2024 10:40 AM EDT Images from the original note were not included. Chief Complaint Patient presents with Seizures Subjective Migdalia Connelly, 38 y.o., female SEIZURE -resident at [place], here today with house aide -labs to [...] Diagnosis Date ADHD (attention deficit hyperactivity disorder) ([facility]/HCC) Alteration of consciousness Anger reaction Astigmatism Bipolar disorder Convulsions (CMS/HCC) Developmental delay GERD (gastroesophageal reflux disease) Hypercholesterolemia (CMS/HCC) Hyperopia Hypertension (CMS/HCC) Impulse control disorder ([facility]/HCC) Intellectual disability ([facility]/HCC) Mental disorder Mental retardation, mild Mood disorder (CMS/HCC) OCD (obsessive compulsive disorder) ([facility]) Osteopenia PTSD (post-traumatic stress disorder) ([facility]) Seizures ([facility]) No past surgical history on file. [...] , wrist extensors , wrist flexor , sand caster apprentice strength 5/5. LUE Strength deltoid , biceps , triceps , wrist extensors , wrist flexor , sand caster apprentice strength 5/5. RLE Strength illopsoas, quadriceps, tibialis [...] 134 (L). LFTs (WNL) Routine EEG at [facility] in March 2018: Normal MRI of the brain w and w/o contrast at [facility] on 10/18/13 and 06/30/16: Stable right [...] plan, and return instructions documented in this encounterFreeman Health SystemYtsqwiqtyj96-61-6210 History of Present illness Narrative* Damien Jones [...] (CMS/HCC) Impulse control disorder (CMS/HCC) Intellectual disability ([facility]) Mental disorder Mental retardation, mild Mood disorder ([facility]/HCC) OCD (obsessive compulsive disorder) ([facility]) Osteopenia PTSD (post-traumatic stress disorder) ([facility]) Seizures ([facility]) History reviewed. No pertinent surgical history. [...] , wrist extensors , wrist flexor , sand caster apprentice strength 5/5. LUE Strength deltoid , biceps , triceps , wrist extensors , wrist flexor , sand caster apprentice strength 5/5. RLE Strength illopsoas, quadriceps, tibialis [...] LLE knee reflex 1+. Negative Brian's Coordination: Kfafbi-cx-kubv testing is normal Gait: Normal Review and [...] 134 (L). LFTs (WNL) Routine EEG at [facility] in March 2018: Normal MRI of the brain w and w/o contrast at [facility] on 10/18/13 and 06/30/16: Stable right [...] plan, and return instructions documented in this encounterFreeman Health [id number] History of Present illness Narrative* Bhanu Charlton [...] Diagnosis Date ADHD (attention deficit hyperactivity disorder) ([facility]) Alteration of consciousness Anger reaction Astigmatism Bipolar disorder ([facility]/HCC) Convulsions ([facility]/HCC) Developmental delay GERD (gastroesophageal reflux disease) Hypercholesterolemia (CMS/HCC) Hyperopia Hypertension ([facility]/HCC) Impulse control disorder ([facility]/HCC) Intellectual disability ([facility]/HCC) Mental disorder Mental retardation, mild Mood disorder ([facility]/HCC) OCD (obsessive compulsive disorder) ([facility]/HCC) Osteopenia PTSD (post-traumatic stress disorder) ([facility]/HCC) Seizures ([facility]) Medications: Current Outpatient Medications: acetaminophen (Tylenol) [...] subungual debris. They were painful to palpation 01634 on the right 91201 on the left. VASC: DP /PT were nonpalpable bilateral. Capillary refill time < 3 seconds Digits 1-5 bilateral NEURO: [place] Ami 5.07 monofilament was intact B/L. Vibratory [...] 1through 10. DAY Laura documented in this encounterFreeman Health SystemWuazvtjoui26-12-7078 NotePatient recovered by anesthesia in procedure room.[facility] [id number] History of Present illness Narrative* Sabra Frias DMD - 02/23/2024 9:37 AM EST ----- Thursday, February 23, 2024 at 10:34:06 AM ----- ----- Provider: Shelby Frias DMD -- Clinic: [place] ----- PT. WAS SEEN IN [facility] UNDER TWILIGHT SEDATION WITH ANESTHESIA TEAM. Anesthesia diagnosis: Unspecified mental disorder- F09 and Other intellectual disabilities- F78 Dental diagnosis: Dental Caries, unspecified - K02.9 COMPOSITE BAHAI Patient is scheduled for [facility] on tooth #23 MFL and 24 DFL. Reviewed Medical History. Patient is ready for treatment. Topical Benzocaine gel applied at the injection site for 2 minutes. Administered 2 carpules of Lidocaine, 2% with Epinephrine 1:100,000,. Cotton roll isolation achieved. Decay/existing bahai removed, cavity prepared. Selectively etched enamel with 37% phosphoric acid, rinsed, and blot dried. OptiBond bowles applied and light-cured. Condensed packable composite shade A2 in light cured increments using Mylar strip and wedge. Finished with finishing burs, checked occlusion, verified proximal contacts and bahai was polished. Rinsed and suctioned intraorally, advised [...] ----- Provider: Shelby Frias DMD -- Clinic: [place] ----- documented in this [id number] Telephone encounter Note* Telephone Encounter - Megha Sanchez RN - 02/14/2024 10:24 AM EST Anesthesia consent obtained by Dr. Koch and scanned into [employer]. [id number] Miscellaneous Notes* Telephone Encounter - Megha Sanchez RN - 02/14/2024 10:24 AM EST Anesthesia consent obtained by Dr. Koch and scanned into [employer]. documented in this [id number] Instructions* Discharge Instructions* Penny Denton RN - 02/01/2024 9:44 AM EST You are you have surgery with Dr. Frias on 02/22/2023 at [facility] which is located at [address] [place] [address] PATIENT MEDICATION INSTRUCTIONS: On the morning of [...] unless otherwise contacted. Expect a call from [employer] one business day prior to surgery for [...] your Preparing for Your Surgery/Procedure booklet or [email or web address] if you have questions. Contact the Pre-Admission Testing department at [phone] or your surgeon's officewith any questions that [...] stay with you after surgery. Please call [place] if you need transportation assistance or have concerns about going home [phone]. PEDIATRIC or ADOLESCENTS: Parents or a legal [...] signs of dehydration. Thank you for choosing [facility]; it is our pleasure to care for you. documented in this [id number] Evaluation note* PAT Call History - Penny Denton RN - 02/01/2024 9:20 AM EST Images from the original note were not included. Telephone History Migdalia Connelly, [id number] 02/01/2024 Patient was identified by name and date of with Nurse Latasha from [place]. Needs: Physical, Neck Circumference, Glasses, BHCG, Intellectual Disability, Anxiety and Seizure Precautions on DOS. Ifthe patient becomes ill prior to procedure or surgery, they are to call their provider or surgeon'soffice directly. 02/01/2024 - communicated with patient will need urine test the morning of the procedure 02/01/2024-Spoke with Dr. Florez (Anesthesia) in regards to anxiety with last procedure - indicates that [place] can give her 5 mg Valium at least 1 hour prior to arriving (Nurse at [place] - [facility]-[place]) 02/01/2024-[facility] to provide most recent labs (fax number given) 02/14/2024-LG consent obtained - see social media senior associate 38 year old 190.6 lbs 5' 5 [...] 09/05/2018 Added automatically from request for surgery [id number] Constipation Per OSH H+P 08/2018 Dental decay 08/26/2016 Added automatically from request for surgery [id number] Developmental delay Per OSH H+P 08/2018 Hormone [...] Decay, Dental Caries, Peridontitis, Endo (+) obesity 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 [facility] one business day prior to surgery [...] your Preparing for Your Surgery/Procedure booklet or [email or web address] if you have questions. Contact the Pre-Admission Testing department at [phone] or your surgeon's officewith any questions that [...] stay with you after surgery. Please call [place] if you need transportation assistance or have concerns about going home [phone]. PEDIATRIC or ADOLESCENTS: Parents or a legal [...] signs of dehydration. Thank you for choosing [facility]; it is our pleasure to care for you. Penny Denton RN Time Spent Performing this Telephone History: 30 [id number] Miscellaneous Notes* PAT Call History - Penny Denton RN - 02/01/2024 9:20 AM EST Images from the original note were not included. Telephone History Migdalia Cueva Stephie, [id number] 02/01/2024 Patient was identified by name and date of with Nurse Anaya from [place]. Needs: Physical, Neck Circumference, Glasses, BHCG, Intellectual Disability, Anxiety and Seizure Precautions on DOS. Ifthe patient becomes ill prior to procedure or surgery, they are to call their provider or surgeon'soffice directly. 02/01/2024 - communicated with patient will need urine test the morning of the procedure 02/01/2024-Spoke with Dr. Florez (Anesthesia) in regards to anxiety with last procedure - indicates that [place] can give her 5 mg Valium at least 1 hour prior to arriving (Nurse at [place] - [place]) 02/01/2024-[place] to provide most recent labs (fax number given) 02/14/2024-LG consent obtained - see social media senior associate 38 year old 190.6 lbs 5' 5 [...] 09/05/2018 Added automatically from request for surgery [id number] Constipation Per OSH H+P 08/2018 Dental decay 08/26/2016 Added automatically from request for surgery [id number] Developmental delay Per OSH H+P 08/2018 Hormone [...] Decay, Dental Caries, Peridontitis, Endo (+) obesity 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 Expect a call from [employer] one business day prior to surgery for [...] your Preparing for Your Surgery/Procedure booklet or [email or web address] if you have questions. Contact the Pre-Admission Testing department at [phone] or your surgeon's officewith any questions that [...] stay with you after surgery. Please call [place] if you need transportation assistance or have concerns about going home [phone]. PEDIATRIC or ADOLESCENTS: Parents or a legal [...] signs of dehydration. Thank you for choosing [facility]; it is our pleasure to care for you. Penny Denton RN Time Spent Performing this Telephone History: 30 documented in this [id number] Note* Addendum Note - Orquidea Florez MD - 12/15/2023 11:34 AM EDT Addendum created 12/15/231133 by Orquidea Florez MD Clinical Note Signed [id number] Miscellaneous Notes* Addendum Note - Orquidea Florez [...] 12/15/2023 9:24 AM EDT Patient recovered by GEM SETTER in room. Patient is awake, comfortable, and [...] DENTAL RESTORATIONS; Surgeon: Bhavin Valdovinos DDS; Location: [facility]; Service: Dental CHOLECYSTECTOMY (2009) Per OSH H+P 08/2018 DENTAL RESTORATIONS (09/15/2018) Procedure: DENTAL RESTORATIONS; Surgeon: Og Grant DDS; Location: [facility]; Service: Dental DENTAL RESTORATIONS (07/14/2020) Procedure: DENTAL RESTORATIONS; Surgeon: Og Grant DDS; Location: [facility]; Service: Dental Allergies: Abilify, Amoxicillin, Depakote [valproic acid], Food, Metyrosine, Moban [molindone], Nubain [nalbuphine], Sympathomimetics, and Vicks 44 cough relief [dextromethorphan hbr] Basic Operating Room Facts: * No surgeons listed * Anesthesiologist: Orquidea Florez MD GEM SETTER: Domingo Carrion APRN-CRNA DENTAL VISIT Intraoperative Events: [...] was received. MAXIMO Soliz documented in this [id number] Procedure anesthesia Narrative * Procedure NameResponsible AnesthesiologistAnesthesia Start TimeAnesthesia Stop TimeDENTAL VISITOrquidea Florez MD12/15/23 31710112/15/23 0925DateTime WtkvvFwindxh72/24/512009966892Jg Start Oxrz8138Ke Rlmqo1808Uogybqiggzpy Verify The anesthesia team has reviewed the patient's vital signs immediately prior to induction. MAXIMO Soliz0833Procedure TimeoutConfirm the correct patient identity: Yes Confirm the correct procedure: Yes Confirm the correct procedural site: Yes Confirm signed informed consent: Yes Confirm prophylactic antibiotic administration (if applicable): N/A Discuss fire risk mitigation (if applicable): Yes Anesthesia Staff MAXIMO Soliz Proceduralist Altagracia Additional Staff 0834An Fvjzdoiql8305Krgzqsiroq Mhzrhja4368fq stop [id number] completed my SBAR handoff to the receiving nurse in the receiving unit.09AN Stop* NameTotalglycopyrrolate (ROBINUL) injection 0.2 mg/mL0.1 mgMidazolam 1 mg/mL5 mgDexmedetomidine injection 100 mcg/mL56 mcg Ketorolac 30 mg/mL15 mgLactated Acpjxsg56 mL * Agents Name N2O O2 Flow Rate (l/min) * Blood No blood administrations on file. TypeDetailsPlacementRemovalSurgical Wound06/09 0000 by Carola Hansen RNSurgical Wound09/15/18; 1148; Incision; N/A; Mouth09/15/18 1148 by Mayte Poole RNWound07/14/20; 1023; Bilateral; Other (Comment); Surgical - Jjvmuzul75/24/21 1023 by Felix Oro RNAirway Kcoousz54/24/24; 0833; Nasal Cannula; 12/15/23; 0833 by Domingo Carrion APRN-CRNA12/15/23 0920 by Domingo Carrion APRN-CRNAdocumented in this encounter [id number] Note* Addendum Note - Domingo Carrion APRN-CRNA - 12/15/2023 10:26 AM EDT Addendum created 12/15/23 1026 by Domingo Carrion APRN-CRNA Flowsheet accepted, LDA properties accepted [facility] Work Phone: 1(591) 629-873610-24-2024 Note* Addendum Note - Domingo Carrion APRN- CRNA - 12/15/2023 10:26 AM EDT Addendum created 12/15/23 1026 by Domingo Carrion APRN-CRNA Flowsheet accepted, LDA properties accepted [facility] Work Phone: 1(552) 817-244610-24-2024 Miscellaneous Notes* Addendum Note - Domingo Carrion APRN-CRNA - 12/15/2023 10:26 AM EDT Addendum created 12/15/23 1026 by Domingo Carrion APRN-CRNA Flowsheet accepted, LDA properties accepted * Anesthesia Transfer Of Care - Domingo Carrion APRN-CRNA - 12/15/2023 9:24 AM EDT Patient recovered by GEM SETTER in room. Patient is awake, comfortable, and [...] DENTAL RESTORATIONS; Surgeon: Bhavin Valdovinos DDS; Location: [facility]; Service: Dental CHOLECYSTECTOMY (2009) Per OSH H+P 08/2018 DENTAL RESTORATIONS (09/15/2018) Procedure: DENTAL RESTORATIONS; Surgeon: Og Grant DDS; Location: [facility]; Service: Dental DENTAL RESTORATIONS (07/14/2020) Procedure: DENTAL RESTORATIONS; Surgeon: Og Grant DDS; Location: [facility]; Service: Dental Allergies: Abilify, Amoxicillin, Depakote [valproic acid], Food, Metyrosine, Moban [molindone], Nubain [nalbuphine], Sympathomimetics, and Vicks 44 cough relief [dextromethorphan hbr] Basic Operating Room Facts: * No surgeons listed * Anesthesiologist: Orquidea Florez MD GEM SETTER: Domingo Carrion APRN-RAVINDRA DENTAL VISIT Intraoperative Events: [...] was received. MAXIMO Soliz documented in this [id number] Anesthesiology Postoperative evaluation and management note* Anesthesia [...] ANESTHESIA NOTABLE EVENTS: No notable events documented. 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 Attestation: Anesthesia options were discussed with the patient and/or legal special service representative. The risks, benefitsand alternatives were reviewed. Questions regarding anesthesia were answered. Patient and/or legal special service representative knows such anesthetics and procedures may be performed by Resident physicians, Certified Anesthesiologist Assistants, or Certified Nurse Anesthetists under the supervision of a physician. The patient /or the patient s legal special service representative agree with the plan for anesthesia. 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 The risks, benefitsand alternatives were reviewed. Questions regarding anesthesia were answered. Patient and/or legal special service representative knows such anesthetics and procedures may be performed by Resident physicians, Certified Anesthesiologist Assistants, or Certified Nurse Anesthetists under the supervision of a physician. The patient /or the patient s legal special service representative agree with the plan for anesthesia. 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 The risks, benefitsand alternatives were reviewed. Questions regarding anesthesia were answered. Patient and/or legal special service representative knows such anesthetics and procedures may be performed by Resident physicians, Certified Anesthesiologist Assistants, or Certified Nurse Anesthetists under the supervision of a physician. The patient /or the patient s legal special service representative agree with the plan for anesthesia. MHPATFORM documented in this [id number] Anesthesiology Postoperative evaluation and management note* Anesthesia Transfer Of Care - Domingo Carrion APRN- RAVINDRA - 12/15/2023 9:24 AM EDT Patient recovered by GEM SETTER in room. Patient is awake, comfortable, and [...] DENTAL RESTORATIONS; Surgeon: Bhavin Valdovinos DDS; Location: [facility]; Service: Dental CHOLECYSTECTOMY (2009) Per OSH H+P 08/2018 DENTAL RESTORATIONS (09/15/2018) Procedure: DENTAL RESTORATIONS; Surgeon: Og Grant DDS; Location: [facility]; Service: Dental DENTAL RESTORATIONS (07/14/2020) Procedure: DENTAL RESTORATIONS; Surgeon: Og Grant DDS; Location: [facility]; Service: Dental Allergies: Abilify, Amoxicillin, Depakote [valproic acid], Food, Metyrosine, Moban [molindone], Nubain [nalbuphine], Sympathomimetics, and Vicks 44 cough relief [dextromethorphan hbr] Basic Operating Room Facts: * No surgeons listed * Anesthesiologist: Orquidea Florez MD GEM SETTER: Domingo Carrion APRN-GEM SETTER DENTAL VISIT Intraoperative Events: No acute event [...] of the report was received. MAXIMO Soliz [employer] Work Phone: 1(867) 393-199110-24-2024 Miscellaneous Notes* Anesthesia Transfer Of Care - Domingo Carrion APRN-CRNA - 12/15/2023 9:24 AM EDT Patient recovered by GEM SETTER in room. Patient is awake, comfortable, and [...] DENTAL RESTORATIONS; Surgeon: Bhavin Valdovinos DDS; Location: [facility]; Service: Dental CHOLECYSTECTOMY (2009) Per OSH H+P 08/2018 DENTAL RESTORATIONS (09/15/2018) Procedure: DENTAL RESTORATIONS; Surgeon: Og Grant DDS; Location: [facility]; Service: Dental DENTAL RESTORATIONS (07/14/2020) Procedure: DENTAL RESTORATIONS; Surgeon: Og Grant DDS; Location: [facility]; Service: Dental Allergies: Abilify, Amoxicillin, Depakote [valproic acid], Food, Metyrosine, Moban [molindone], Nubain [nalbuphine], Sympathomimetics, and Vicks 44 cough relief [dextromethorphan hbr] Basic Operating Room Facts: * No surgeons listed * Anesthesiologist: Orquidea Florez MD GEM SETTER: Domingo Carrion APRN-RAVINDRA DENTAL VISIT Intraoperative Events: [...] was received. MAXIMO Soliz documented in this [id number] History of Present illness Narrative* Marleni Alejandro DDS - 12/15/2023 8:53 AM EDT ----- November at 9:52:24 AM ----- ----- Provider: Resident Eric -- Clinic: [place] ----- PT WAS SEEN [facility] UND[facility] [...] status of dentition on the charting. COMPOSITE BAHAI Patient is scheduled for [facility] on tooth #26 surface B5. Topical Benzocaine gel applied at theinjection site for 2 minutes. Administered 0.5 carpules of Lidocaine, 2% with Epinephrine 1:100,000,. Isolation achieved. Decay/existing bahai removed, cavity prepared. Selectively etched enamel with 37% phosphoric acid, rinsed, and blot dried. OptiBond bowles applied and light-cured. Condensed packable composite shade A2 in light cured increments. Finished with finishing burs, checked occlusion, verified proximal contacts and bahai was polished. SIMPLE EXTRACTION tooth # 7 [...] ----- Provider: Shelby Frias DMD -- Clinic: [place] ----- documented in this [id number] Progress note* Blood Attestation - Orquidea Florez MD - 12/15/2023 8:26 AM EDT Blood Attestation: ATTESTATION OF INFORMED CONSENT FOR BLOOD: The transfusion of blood and/or blood components were discussed with the patient and/or legal special service representative. The risks, benefits and alternatives were reviewed. Questions regarding blood transfusions were answered. The patient /or the patient s legal special service representative agree with the plan for transfusion of blood and/or blood components. [facility] Work Phone: 1(117) 150-605710-24-2024 Miscellaneous Notes* Blood Attestation - Orquidea Florez MD - 12/15/2023 8:26 AM EDT Blood Attestation: ATTESTATION OF INFORMED CONSENT FOR BLOOD: The transfusion of blood and/or blood components were discussed with the patient and/or legal special service representative. The risks, benefits and alternatives were reviewed. Questions regarding blood transfusions were answered. The patient /or the patient s legal special service representative agree with the plan for transfusion of blood and/or blood components. 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 The risks, benefitsand alternatives were reviewed. Questions regarding anesthesia were answered. Patient and/or legal special service representative knows such anesthetics and procedures may be performed by Resident physicians, Certified Anesthesiologist Assistants, or Certified Nurse Anesthetists under the supervision of a physician. The patient /or the patient s legal special service representative agree with the plan for anesthesia. MHPATFORM [id number] History of Present illness Narrative* YESIKA Mac [...] for any new/changing lesions documented in this encounterFreeman Health [id number] Telephone encounter Note* Telephone Encounter - Idania Campbell RN - 11/23/2023 2:56 PM EDT Anesthesia consent obtained and scanned into [employer]. Scheduled for surgery 12/15/2023. [id number] Miscellaneous Notes* Telephone Encounter - Idania Campbell RN - 11/23/2023 2:56 PM EDT Anesthesia consent obtained and scanned into [employer]. Scheduled for surgery 12/15/2023. documented in this [id number] NoteDo not eat or drink anything after [...] the Pre Admission Testing (PAT) department at [phone], or your surgeon's office, with any additional questions.[facility] CenterPositron [id number] History of Present illness Narrative* Bhanu Charlton [...] Anger reaction Astigmatism Bipolar disorder (CMS/HCC) Convulsions ([facility]/HCC) Developmental delay GERD (gastroesophageal reflux disease) Hypercholesterolemia (CMS/HCC) Hyperopia Hypertension (CMS/HCC) Impulse control disorder (CMS/HCC) Intellectual disability ([facility]/HCC) Mental disorder Mental retardation, mild Mood disorder (CMS/HCC) OCD (obsessive compulsive disorder) ([facility]) Osteopenia PTSD (post-traumatic stress disorder) ([facility]) Seizures ([facility]) Medications: Current Outpatient Medications: acetaminophen (Tylenol) [...] subungual debris. They were painful to palpation 59062 on the right 94450 on the left. VASC: DP /PT were nonpalpable bilateral. Capillary refill time < 3 seconds Digits 1-5 bilateral NEURO: [place] Ami 5.07 monofilament was intact B/L. Vibratory [...] 1through 10. DAY Laura documented in this encounterFreeman Health [id number] History of Present illness Narrative* Case Melchor [...] results found for: IRONSAT , FERRITIN , [id number] , FOLATE Mineral and Bone Labs: No [...] of your patients! Please contact me at [phone] (Office) or [phone] (Answering service) with any questions. CASE MELCHOR MD [facility] This note was created with the assistance of a speech-recognition program. Although the intention is to generate a document that actually reflects the content of the visit, no guarantees can be provided that every mistake has been identified and corrected by editing. documented in this encounterFairfield Medical Center08-28-2024 History of Present illness Narrative* Lizandro Veronica DDS - 10/19/2023 10:05 AM EDT ----- Thursday, October 19, 2023 at 11:01:41 AM ----- ----- Provider: [id number] Resident Marco -- Clinic: [place] ----- LIMITED EXAM Patient presents for Emergency [...] consented to treatment today. Pt here with manager biostatistics to discuss IV sedation as a quicker [...] sedation. 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 Treatment request for IV sedation will be sent for the patient. Next Visit: IV sedation and appropriate treatment. ----- Signed on Thursday, October 19, 2023 at 1:27:08 PM ----- ----- Provider: [id number] Ed Obrien DDS -- Clinic: [place] ----- documented in this [id number] Miscellaneous Notes* Telephone Encounter - Cesia Lang - 08/01/2023 3:02 PM EDT [facility] called and requested the last progress note to be faxed to [phone]. Faxed note. documented in this encounterFairfield Medical Center06-10-2024 Telephone encounter Note* Telephone Encounter - Cesia Lang - 08/01/2023 3:02 PM EDT [facility] called and requested the last progress note to be faxed to [phone]. Faxed note. [facility]06-[facility] History of Present illness Narrative* [...] constantly. She is a resident at the [facility] full- time. She is reasonably functional. [...] results found for: IRONSAT , FERRITIN , [id number] , FOLATE Mineral and Bone Labs: No [...] of your patients! Please contact me at [phone] (Office) or [phone] (Answering service) with any questions. CASE MELCHOR MD [facility] This note was created with the assistance of a speech-recognition program. Although the intention is to generate a document that actually reflects the content of the visit, no guarantees can be provided that every mistake has been identified and corrected by editing. documented in this encounterFairfield Medical Center04-10-2024 Discharge summary Author Rico Romero [facility] June 01, 2023 3:06pmNote Date/TimeApr2023 12:23pm[place] [address] Discharge Summary Signed Patient: Migdalia Connelly MR#: [id number] : 1985 Acct:[id number] Age/Sex: 37 / F Adm Date: 4 Loc: 4N Room: 3F7963-[address]: Rico Romero DO Copies to: [...] with developmental delay who lives at the [facility]. She hadbeen cared for at an [...] before she will be transferred back to [place]. She was also given the discharge instructions [...] % (Auto) N/A, Lymph % (Auto) N/A, [place] % (Auto) N/A, Eos % (Auto) N/A, Baso % (Auto) N/A, Nucleat RBC Rel Count N/A, Neut # (Auto) N/A, Lymph # (Auto) N/A, [place] # (Auto) N/A, Eos # (Auto) N/A, [...] <Electronically signed by Rico Romero DO> 06/01/23 8185 [facility] Work Phone: 1(692) 996-310804-09-2024 Progress note Author Rico Romero [facility] May 31, 2023 11:47amNote Date/TimeApril 2023 11:47[place] [address] Hospitalist Progress Note Signed Patient: Migdalia Connelly MR#: [id number] : 1985 Acct:[id number] Age/Sex: 37 / F Adm Date: 4 Loc: 4N Room: 6R7254-6 Type: ADM IN Attending Dr: Rico Romero [...] Capsule PO 05/28/24 19:29 40 mg DAILY@1929 [facility] Administration Bisacodyl 10 mg 05/29/23 15:58 [...] Capsule PO 05/28/24 19:29 200 mg BID@899,1929 [facility] Administration Emollient Ointment 1 applic 05/29/23 18:01 05/30/23 11:30 Petrolatum,White 99 Gm Oint...G. TOPICAL 1 applic BID PRN Administration dry skin Enoxaparin Sodium 40 mg 05/30/23 10:00 05/31/23 08:18 Enoxaparin 40 Mg/0.4 Ml Syringe SUBCUT 05/29/24 09:59 40 mg DAILY@10 [facility] Administration Fenofibrate 145 mg 05/29/23 19:30 05/30/23 20:04 Fenofibrate Nanocrystallized 145 Mg Tablet PO 05/28/24 19:29 145 mg DAILY@1929 [facility] Administration Fluticasone Propionate 2 spray 05/29/23 18:01 Fluticasone Propionate Koloa 120 Koloa/16 Gm Bottle INTRANASAL 05/28/24 18:00 DAILY PRN allergy symptoms Guanfacine HCl 2 mg 05/29/23 19:30 05/31/23 08:15 Guanfacine 1 Mg Tablet PO 05/28/24 19:29 2 mg TID@0900,1400,1929 [facility] Administration Hydralazine HCl 10 mg 05/29/23 [...] Tablet PO 05/28/24 19:29 400 mg DAILY@1930 [facility] Administration Lamotrigine 200 mg 05/30/23 09:00 05/31/23 [...] [Efudex] TOPICAL 05/28/24 20:59 Not Given BID [facility] Non-Formulary Medication 1 tab 05/30/23 09:00 [...] signed by Rico Romero, DO> 05/31/23 1147 [facility] Work Phone: 1(293) 482-742204-08-2024 Progress note Author Anamaria [facility] May 30, 2023 12:21pmNote Date/TimeApril 2023 12:21pm[place] [address] Hospitalist Progress Note Signed Patient: Migdalia Connelly MR#: [id number] : 1985 Acct:[id number] Age/Sex: 37 / F Adm Date: 4 Loc: 4 Room: 4K3319-3 Type: ADM INOo Attending Dr: Anamaria Benton [...] Tab.Er.12h PO 05/28/24 19:29 400 mg DAILY@1929 [facility] Administration Clonidine HCl 0.2 mg 05/29/23 19:30 05/30/23 11:29 Clonidine 0.2 Mg Tablet PO 05/28/24 19:29 0.2 mg 0900,1400,1929 [facility] Administration Diazepam 5 mg 05/29/23 18:15 Diazepam 5 Mg Tablet PO 11/25/23 18:14 ONCE PRN 1 HOUR PRIOR TO PROCEDURE Dicyclomine HCl 20 mg 05/29/23 19:30 05/30/23 08:25 Dicyclomine 20 Mg Tablet PO 05/28/24 19:29 20 mg BID@899,1929 [facility] Administration Diphenhydramine HCl 25 mg 05/29/23 15:51 05/29/23 20:04 Diphenhydramine 25 Mg Capsule PO 05/28/24 15:50 25 mg Q8H PRN Administration Severe rash or Itching Docusate Sodium 200 mg 05/29/23 19:30 05/30/23 08:24 Docusate 100 Mg Capsule PO 05/28/24 19:29 200 mg BID@0900,0 [facility] Administration Emollient Ointment 1 applic 05/29/23 18:01 05/30/23 11:30 Petrolatum,White 99 Gm Oint...G. TOPICAL 1 applic BID PRN Administration dry skin Enoxaparin Sodium 40 mg 05/30/23 10:00 05/30/23 09:11 Enoxaparin 40 Mg/0.4 Ml Syringe SUBCUT 05/29/24 09:59 40 mg DAILY@10 [facility] Administration Fenofibrate 145 mg 05/29/23 19:30 05/29/23 20:00 Fenofibrate Nanocrystallized 145 Mg Tablet PO 05/28/24 19:29 145 mg DAILY@1930 [facility] Administration Fluticasone Propionate 2 spray 05/29/23 18:01 Fluticasone Propionate Koloa 120 Koloa/16 Gm Bottle INTRANASAL 05/28/24 18:00 DAILY PRN [...] signed by Anamaria Benton MD> 05/30/23 1221 [facility] Work Phone: 1(663) 208-598604-07-2024 History and physical note Author Arvind [facility] May 29, 2023 4:12pmNote Date/TimeApr2023 4:01pmD[place] [address] Hospitalist H&P Signed Patient: Migdalia Connelly MR#: [id number] : 1985 Acct:[id number] Age/Sex: 37 / F Adm Date: 4 Loc: 4 Room: [address] [place] [address] Type: ADM INOo Attending Dr: Arvind Regan DO Copies to: NON STAFF Arvind Regan DO~ HPI DATE OF EXAMINATION: 05/29/23 CHIEF COMPLAINT: Concern for worsening facial cellulitis HISTORY OF PRESENT ILLNESS: This is a 37-year-old female with MRDD who lives in a [facility] who presents [facility] ER with her caregiver with concern for worsening facial cellulitis. Patient was just discharged from [facility] on Tuesday after being treated for [...] noted below or in HPI [facility] Medical History (Updated 05/29/23 @ 16:10 by [...] 13:36 Lymph % (Auto) N/A 05/29/23 13:36 [place] % (Auto) N/A 05/29/23 13:36 Eos % (Auto) N/A 05/29/23 13:36 Baso % (Auto) N/A 05/29/23 13:36 Nucleat RBC Rel Count N/A 05/29/23 13:36 Neut # (Auto) N/A 05/29/23 13:36 Lymph # (Auto) N/A 05/29/23 13:36 [place] # (Auto) N/A 05/29/23 13:36 Eos # [...] periorbital cellulitis where she was hospitalized at [facility] and treated with IV antibiotics and [...] <Electronically signed by Arvind Regan DO> 05/29/23 [facility] Work Phone: 1(407) 848-901904-03-2024 Miscellaneous Notes* Telephone Encounter - Cesia Lang - 05/25/2023 11:38 AM EDT Called and scheduled new pt appt with nurse from [facility]. Labs ordered and faxed to facility. documented in this encounterFairfield Medical Center04-03-2024 Telephone encounter Note* Telephone Encounter - Cesia Petersenev - 05/25/2023 11:38 AM EDT Called and scheduled new pt appt with nurse from [facility]. Labs ordered and faxed to facility. [facility] Positron [id number] History of Present illness Narrative* Scarlett Albarran DDS - 06/10/2022 1:29 PM EDT ----- May at 3:52:48 PM ----- ----- Provider: [id number] Resident Betsy -- Clinic: [place] ----- OR [...] treatment in the OR was sent out [phone] NOTE: Note: Pt seen in the OR about 2 years ago. Next Visit: OR ----- Signed on May at 4:11:20 PM ----- ----- Provider: [id number] Ed Obrien DDS -- Clinic: [place] ----- documented in this encounterMetroHealthEvaluation + Plan note No data available for this section [facility]* Diagnosis Onset Date Resolution Status Periorbital cellulitis [facility] Work Phone: Evaluation note* Diagnosis Onset Date Resolution Status Bipolar disorder acuteFailure of outpatient treatmentacuteHypercholesterolemiaacuteHypertension acuteModerate intellectual disabilityacutePeriorbital cellulitisacutePTSD (post- traumatic stress disorder)acuteSeizure disorderacute [facility] Work Phone: Evaluation note* Diagnosis Onset Date Resolution Status Bipolar disorder acuteHypercholesterolemiaacuteHypertensionacutePTSD (post-traumatic stress disorder)acuteSeizure disorderacutePeriorbital cellulitisresolved [facility] Work Phone: Evaluation note* Diagnosis Caries- Primary Unspecified dental caries documented in this encounter [facility]* Diagnosis Lip licking dermatitis [facility]* Diagnosis Caries- Primary Unspecified dental caries documented in [facility]* Diagnosis Onychomycosis- Primary Dermatophytosis of nail Pain in right toe(s) Pain in left toe(s) documented in this encounter [facility]* Diagnosis Pre-op evaluation- Primary Preoperative examination, unspecified documented in this encounter [facility]* Diagnosis Onychomycosis- Primary Dermatophytosis of nail Pain in right toe(s) Pain in left toe(s) documented in this encounter [facility] HealthcareEvaluation note* Diagnosis Convulsions, unspecified convulsion type (CMS/HCC)- Primary Hyponatremia Hyposmolality and/or hyponatremia Developmental delay Unspecified delay in development Anger reaction Undersocialized conduct disorder, aggressive type, unspecified documented in this encounter [facility] HealthcareEvaluation note* Diagnosis Hyponatremia- Primary Hyposmolality and/or [...] aggressive type, unspecified documented in this encounter [facility] HealthcareEvaluation note* Diagnosis Encounter for breast and pelvic examination- Primary [facility]* Diagnosis Onychocryptosis- Primary Ingrowing nail Pain in left toe(s) Abscess, toe, left documented in this encounter [facility] note* Diagnosis Abscess, toe, left- Primary Onychocryptosis Ingrowing nail documented in this encounter [facility] HealthcareEvaluation note* Diagnosis Exostosis of right foot- Primary Other enthesopathy of right foot and ankle Pain in right toe(s) Right foot pain Pain in soft tissues of limb Onychomycosis Dermatophytosis of nail Pain in left toe(s) documented in this encounter [facility] HealthcareEvaluation note* Diagnosis Mastodynia, female- Primary Mass of right breast, unspecified quadrant documented [facility]* Diagnosis Caries- Primary Unspecified dental caries [facility]* Diagnosis Mass of right breast, unspecified quadrant- Primary Breast skin changes Mastodynia, female documented [facility]* Diagnosis Exostosis of right foot- Primary Other enthesopathy of right foot and ankle Right foot pain Pain in soft tissues of limb documented in this encounter [facility] HealthcareEvaluation noteNo assessment information availableW[facility]oster [facility] Work Phone: Evaluation note* Diagnosis Mastodynia, female- Primary documented in this [facility]* Diagnosis Exostosis of right foot- Primary Other enthesopathy of right foot and ankle documented in this encounter [facility] HealthcareEvaluation note* Diagnosis Caries- Primary Unspecified dental caries Pre-op evaluation- Primary Preoperative examination, unspecified Body mass index (BMI) 30.0-30.9, adult Caries Unspecified dental caries [facility]* Diagnosis Caries- Primary Unspecified dental caries documented [facility]* Diagnosis Onychomycosis- Primary Dermatophytosis of nail Pain in left toe(s) Pain in right toe(s) documented in this encounter [facility] HealthcareEvaluation note* Diagnosis Cellulitis of right breast- Primary documented in this encounter [facility]* Diagnosis Onset Date Resolution Status Admit Date Convulsions resolvedOctober 2024 9:02am [facility] Work Phone: History and physical note Author Arvind [facility] May 29, 2023 4:12pmNote Date/TimeApril 2023 4:01pm[place] [address] Hospitalist H&P Signed Patient: Migdalia Connelly MR#: [id number] : 1985 Acct:[id number] Age/Sex: 37 / F Adm Date: 4 Loc: 4N Room: [address] [place] [address] Type: ADM INOo Attending Dr: Arvind Regan DO Copies to: NON STAFF Arvind Regan DO~ HPI DATE OF EXAMINATION: 05/29/23 CHIEF COMPLAINT: Concern for worsening facial cellulitis HISTORY OF PRESENT ILLNESS: This is a 37-year-old female with MRDD who lives in a [facility] who presents [facility] ER with her caregiver with concern for worsening facial cellulitis. Patient was just discharged from [facility] on Tuesday after being treated for [...] noted below or in HPI [facility] Medical History (Updated 05/29/23 @ 16:10 by [...] 13:36 Lymph % (Auto) N/A 05/29/23 13:36 [place] % (Auto) N/A 05/29/23 13:36 Eos % (Auto) N/A 05/29/23 13:36 Baso % (Auto) N/A 05/29/23 13:36 Nucleat RBC Rel Count N/A 05/29/23 13:36 Neut # (Auto) N/A 05/29/23 13:36 Lymph # (Auto) N/A 05/29/23 13:36 [place] # (Auto) N/A 05/29/23 13:36 Eos # [...] periorbital cellulitis where she was hospitalized at [facility] and treated with IV antibiotics and [...] signed by Arvind Regan DO> 05/29/23 1612 [facility] Work Phone: Hospital Discharge instructions No data available for this section [facility] Additional Instructions DO continue to finish all of the antibiotic pills that was prescribed by Radha: Doxycycline. DO NOT take any of the prednisone that was prescribed by Radha. This is not needed anymore. DO take the extra antibiotic we are sending home at this time: Avelox.[facility] Work Phone: Hospital Discharge instructions Additional Instructions Take simethicone as prescribed for abdominal distention. Take Metamucil Colace and MiraLAX as prescribed constipation. Make sure to take drinking plenty of water each day. Take Naprosyn as prescribed for headache. Follow-up with your primary care provider for ongoing treatment.[facility] Work Phone: InstructionsNot on filedocumented in [...] Start TimeAnesthesia Stop TimeDENTAL Orquidea Arcos MD12/15/23 72698112/15/23 7594SohtNrgtMwdvxPaoauxr11/24/895424366852Ek Start Bgpc2259Wr Bsxgu4198Ngwcbrbzfviw VerifyThe anesthesia team has reviewed the patient's vital signs immediately prior to induction. MAXIMO Soliz0833Procedure TimeoutConfirm the correct patient identity: Yes Confirm the correct procedure: Yes Confirm the correct procedural site: Yes Confirm signed informed consent: Yes Confirm prophylactic antibiotic administration (if applicable): N/A Discuss fire risk mitigation (if applicable): Yes Anesthesia Staff MAXIMO Soliz Proceduralist Altagracia Additional Staff 0834An Rtzohfpcu9526Mdlxpuvafj Oudwqdu9688sb stop [id number] HandoffI completed my SBAR handoff to the receiving nurse in the receiving unit.0925AN Stop* NameTotalglycopyrrolate (ROBINUL) injection 0.2 mg/mL0.1 mg Midazolam 1 mg/mL5 mgDexmedetomidine injection 100 mcg/mL56 mcgKetorolac 30 mg/mL15 mgLactated Jmlhdak16 mL * Agents Name N2O O2 Flow Rate (l/min) * Blood No blood administrations on file. TypeDetailsPlacementRemovalSurgical Wound06/09 0000 by Carola Hansen RNSurgical Wound09/15/18; 1148; Incision; N/A; Mouth09/15/18 1148 by Mayte Poole RNWound07/14/20; 1023; Bilateral; Other (Comment); Surgical - Cyycmbek02/24/21 1023 by Felix Oro RNAirway Hofmcwp73/24/24; 0833; Nasal Wffuayf05/24/24 0833 by Domingo Carrion APRN-CRNAdocumented in this encounter [facility]Procedure anesthesia Narrative* Procedure NameResponsible AnesthesiologistAnesthesia Start TimeAnesthesia Stop TimeDENTAL Orquidea Arcos MD12/15/23 71732412/15/23 5180KttrBorbStqpvFfqhyho21/24/153377325990Qo Start Qnke5692Xf Iywfo2495Luiclyvshskd VerifyThe anesthesia team has reviewed the patient's vital signs immediately prior to induction. MAXIMO Soliz0833Procedure TimeoutConfirm the correct patient identity: Yes Confirm the correct procedure: Yes Confirm the correct procedural site: Yes Confirm signed informed consent: Yes Confirm prophylactic antibiotic administration (if applicable): N/A Discuss fire risk mitigation (if applicable): Yes Anesthesia Staff MAXIMO Soliz Proceduralist Altagracia Additional Staff 0834An Soedmtiuu4297Ixqkbfhpig Wgmsgho6668tv stop [id number] HandoffI completed my SBAR handoff to the receiving nurse in the receiving unit.0925AN Stop* NameTotalglycopyrrolate (ROBINUL) injection 0.2 mg/mL0.1 mg Midazolam 1 mg/mL5 mgDexmedetomidine injection 100 mcg/mL56 mcgKetorolac 30 mg/mL15 mgLactated Tkfohqs54 mL * Agents Name N2O O2 Flow Rate (l/min) * Blood No blood administrations on file. TypeDetailsPlacementRemovalSurgical Wound06/09 0000 by Carola Hansen RNSurgical Wound09/15/18; 1148; Incision; N/A; Mouth09/15/18 1148 by Mayte Poole RNWound07/14/20; 1023; Bilateral; Other (Comment); Surgical - Hsbbsruo91/24/21 1023 by Felix Oro RNAirway Bgvnstv49/24/24; 0833; Nasal Cannula; 12/15/23; 0833 by Domingo Carrion APRN-CRNA12/15/23 0920 by Domingo Carrion APRN-CRNAdocumented in this encounter [facility]HealthProgress note No data available for this section [facility] HospitalReason for referral (narrative)No reason for referral information availableK[facility] Work Phone: Reason for visit Narrative* Service Level Authorization (Routine) - ClosedSpecialtyDiagnoses / ProceduresReferred By ContactReferred To ContactAnesthesiology Diagnoses Caries Sabra Frias, DMD [address] [place] [address] Phone: tel: fax: [facility] PRE ADMISSION TESTING [address] [place] [address] Phone: tel: Referral IDStatusReasonStart DateExpiration DateVisits RequestedVisits [id number]/24/202410/ [facility] HospitalReason for visit Narrative* Consultation (Routine) - Pending Review SpecialtyDiagnoses / ProceduresReferred By ContactReferred To Contact Nephrology Diagnoses Hyponatremia Damien Jones, PANTOGRAPHER-MEDIA MARKETING COORDINATOR [address] [place] [address] Ph[address] Nephrology geni [place] [address] [place] [address] Referral IDStatusReasonStart DateExpiration DateVisits RequestedVisits [id number] Review Specialty Services Required [facility] CenterReason for [facility] Narrative* Auth/Cert (Routine)Specialty Diagnoses / ProceduresReferred By ContactReferred To ContactAmbulatory Surgery Diagnoses Caries Caries [K02.9] Procedures UNLISTED PROCEDURE, DENTOALVEOLAR STRUCTURES ANESTHESIA, INTRAORAL PROC, W/BX; NOS DENTAL RESTORATIONS Og Grant, DDS [address] [place] [address] Phone: tel: fax: [facility] [address] [place] [phone] Phone: tel: Referral IDStatusReasonStart DateExpiration DateVisits RequestedVisits [id number] [facility] Summary Purpose Family History No [...] Contact Anesthesiology Diagnoses Caries Sabra Frias DMD [address] [place] [address] [facility] PRE ADMISSION TESTING [address] [place] [address] Referral IDStatusReasonStart DateExpiration DateVisits RequestedVisits [id number]/24/202410/24/202511 Scheduling Instructions Your surgical team will reach out to you to schedule a pre-admission testing appointment. QuestionAnswer Reason for consult? Recommended PAT Risk Score SpecialtyDiagnoses / ProceduresReferred By ContactReferred To Contact Anesthesiology Diagnoses Caries Og Grant, HALINA [address] [place] [address] [facility] PRE ADMISSION TESTING [address] [place] [address] Referral IDStatFaizan DateExpiration DateVisits RequestedVisits [id number]/28/20248/28/202511 Scheduling Instructions Your surgical team will reach out to you to schedule a pre-admission testing appointment. QuestionAnswer Reason for consult? Recommended PAT Risk Score Additional Source Comments INFORMATION SOURCE (unrecogn ized section and content) DATE CREATED AUTHOR 05/12/2018 [facility] DATE CREATED AUTHOR AUTHOR'S ORGANIZ ATION 07/30/2022 [facility] DATE CREATED AUTHOR AUTHOR'S ORGANIZ ATION 04/21/2023 [facility] DATE CREATED AUTHOR AUTHOR'S ORGANIZ ATION 08/12/2024 [facility] DATE CREATED AUTHOR AUTHOR'S ORGANIZ ATION 08/26/2024 [facility] DATE CREATED AUTHOR AUTHOR'S ORGANIZ ATION 09/08/2024 [facility] DATE CREATED AUTHOR AUTHOR'S ORGANIZ ATION 10/15/2024 [facility] DATE CREATED AUTHOR AUTHOR'S ORGANIZ ATION 11/15/2024 [facility] DATE CREATED AUTHOR AUTHOR'S ORGANIZ ATION 11/25/2024 [facility] Patient Care team informatio n (unrecognized [...] Active Member Role Status Dates Venita Amanda PANTOGRAPHER Emergency Provider Active Start: May 29, 2023 [...] Active Start: May 29, 2023 End: May 31Arayn Naidu ProviderActiveStart: May 29, 2023 End: June 01, 2023Arvind Murdocksein , DOAdmit Provider, Attending Provider, Other ProviderActiveStart: May 29, 2023 End: June 01, 2023 Team Status: Inactive Member Role Status Dates Lio Muñoz DO Primary Care Provider Active Start: August 06, 2023 End: August 07, 2023Dorcas Gilliam ProviderActiveStart: August 06, 2023 End: August 07, 2023Team MemberRelationshipSpecialtyStart DateEnd Date Lio Muñoz MD [address] [place] [address] PCP - GeneralFamily Medicine11/09/23 Ramone Herrera DO [address] [phone] Referring PhysicianNeurology05/19/23Team MemberRelationshipSpecialtyStart DateEnd Lio Muñoz MD [address] [place], [place] [phone] PCP - GeneralFamily Medicine11/09/23 Ramone Herrera DO [address] [phone] Referring PhysicianNeurology05/19/23Team MemberRelationshipSpecialtyStart DateEnd Lio Muñoz MD [address] [place] [address] PCP - GeneralFamily Medicine11/09/23 Ramone Herrera DO [address] [phone] Referring PhysicianNeurology05/19/23Team MemberRelationshipSpecialtyStart End Lio Muñoz MD [address] [place], [place] [phone] PCP - GeneralFamily Medicine11/09/23 Ramone Herrera DO [address] [phone] Referring PhysicianNeurology05/19/23Team MemberRelationshipSpecialtyStart DateEnd Lio Muñoz MD [address] [place], [place] [phone] PCP - GeneralFamily Medicine11/09/23 Ramone Herrera DO [address] [place] [address] Referring PhysicianNeurology05/19/23Team MemberRelationshipSpecialtyStart DateEnd Date Lio Muñoz MD [address] [place] [address] PCP - GeneralFamily Medicine11/09/23 Ramone Herrera DO [address] [place] [address] Referring PhysicianNeurology05/19/23Team MemberRelationshipSpecialtyStart DateEnd Date Lio Muñoz MD [address] [place] [address] PCP - GeneralFamily Medicine11/09/23 Ramone Herrera DO [address] [place] [address] Referring PhysicianNeurology05/19/23Team MemberRelationshipSpecialtyStart End Lio Muñoz MD [address] [place] [address] PCP - GeneralFamily Medicine11/09/23 Ramone Herrera DO [address] [place] [address] Referring PhysicianNeurology05/19/23Team MemberRelationshipSpecialtyStart End Date Lio Muñoz MD [address] [place] [address] PCP - GeneralFamily Medicine11/09/23 Ramone Herrera DO [address] [place] [address] Referring PhysicianNeurology05/19/23Team MemberRelationshipSpecialtyStart DateEnd Date Lio Muñoz MD [address] [place], [place] [phone] PCP - GeneralFamily Medicine11/09/23 Ramone Herrera DO [address] [place] [address] Referring PhysicianNeurology05/19/23Team MemberRelationshipSpecialtyStart End Date Lio Muñoz MD [address] [place], [place] [phone] PCP - GeneralFamily Medicine11/09/23 Ramone Herrera DO [address] [place] [address] Referring PhysicianNeurology05/19/23Team MemberRelationshipSpecialtyStart End Lio Muñoz MD [address] [place] [address] PCP - GeneralFamily Medicine11/09/23 Ramone Herrera DO [address] [place] [address] Referring PhysicianNeurology05/19/23Team MemberRelationshipSpecialtyStart End Date Lio Muñoz DO [address] [place] [address] PCP - GeneralFamily Medicine08/07/24Team MemberRelationshipSpecialtyStart DateEnd Date Lio Muñoz DO [address] [place] [address] PCP - GeneralFamily Medicine08/07/24Team MemberRelationshipSpecialtyStart DateEnd Date Lio Muñoz MD [address] [place] [address] PCP - GeneralFamily Medicine11/09/23 Ramone Herrera DO [address] [place] [address] Referring PhysicianNeurology05/19/23Team MemberRelationshipSpecialtyStart DateEnd Date Lio Muñoz MD [address] [place] [address] PCP - GeneralFamily Medicine11/09/23 Ramone Herrera DO [address] [place] [address] Referring PhysicianNeurology05/19/23 Team Status: Inactive Member Role Status Dates Lio Muñoz DO Attending Provider Active Start: August 23, 2024 End: August 23, 2024Team MemberRelationshipSpecialtyStart DateEnd Date Lio Muñoz DO [address] [place] [address] PCP - GeneralFamily Medicine08/07/24Team MemberRelationshipSpecialtyStart DateEnd Date Lio Muñoz MD [address] [place] [address] PCP - GeneralFamily Medicine11/09/23 Ramone Herrera DO [address] [phone] Referring PhysicianNeurology05/19/23Team MemberRelationshipSpecialtyStart DateEnd Date Lio Muñoz MD [address] [place], [place] [phone] PCP - GeneralFamily Medicine11/09/23 Ramone Herrera DO [address] [place], [place] [phone] Referring PhysicianNeurology05/19/23Team MemberRelationshipSpecialtyStart DateEnd Date Lio Muñoz MD [address] [place] [address] PCP - GeneralFamily Medicine11/09/23 Ramone Herrera DO [address] [phone] Referring PhysicianNeurology05/19/23Team MemberRelationshipSpecialtyStart End Lio Muñoz MD [address] [place] [address] PCP - GeneralFamily Medicine11/09/23 Ramone Herrera DO [address] [phone] Referring PhysicianNeurology05/19/23Team MemberRelationshipSpecialtyStart DateEnd Date Lio Muñoz DO [address] [place] [address] PCP - [facility]08/07/24Team MemberRelationshipSpecialtyStart DateEnd Date Lio Muñoz DO [address] [place] [address] PCP - [facility]08/07/24 Team Status: Active Member Role/Relationship [...] Visit (unrecogniz ed section and content) ReasonOnset EnmzMrjrnkjiUBE45/02/2024Anesthesia consent obtainedReasonComments Toenail CareNon dm nail careReasonCommentsToenail CareNon DM nail careReason CommentsConvulsionsReasonCommentsSeizuresReasonCommentsMedicare breast and PelvicReasonCommentsIngrown ToenailLt great toenailReasonCommentsFollow-upF/U LT grt nail avulsionReasonCommentsToenail CareNon DM nail careFoot PainRT foot painReasonCommentsBreast LumpReasonCommentsNew PatientMassRight breast mass SpecialtyDiagnoses / ProceduresReferred By ContactReferred To ContactBreast Surgery Diagnoses Mastodynia, female Mass of right breast, unspecified quadrant Linn Red MD [address] [place] [address] Phone: tel: fax: Yesenai Serrano MD [address] [facility], [address] [address] Phone: tel: fax: Referral IDStatusReasonStart DateExpiration DateVisits RequestedVisits [id number] Review/034556EnmucdCqdgwrazRximxsdmalH/U RT foot joint inj t9HcuxadVtqkkaaaKexgyq-aaXgwrziAdkooeyuGiixnjhgnqZ/U LT foot 1st met joint inj h9NpagrgTbsxs CussBbipzjwxPwkrnc12/15/2025DD adult dental restorations 10/08/24 under [facility] at [facility]. PAT completed 09/21/24. Consents obtained from Guardian Jessica Celso. KIM RN spoke to Yazmin MARES at [facility] on 10/05/24. Confirmed NPO after 2200. [facility] address [address] [place] [address] Rd - [place] entrance. 0630 arrival time. Staff from [facility] will be accompanying pt DOS.ReasonCommentsPre-surgical EvaluationReasonCommentsFollow-up [...] Pre-op * 0723 (Patch Applied - Provider: Artru Sinclair) Medication Order// acetaminophen (TYLENOL) tablet 650 [...] score 7,8,9,10), PACU Now lidocaine-EPINEPHrine (XYLOCAINE) 2 %-1:648013 injection (CANCELED) PRN, Starting on Tue10/08/24 at [...] CLINICAL RECORDS. [facility] [employer] [facility]. provides no warranty or guarantee of the accuracy or completeness of information in this document.
[2025-02-01 08:09] LABS: Lithium (Eskalith(R)), Serum 1.4 mmol/L (0.5-1.2)
== END 2025-01-31 06:51 | disposition home or self-care (01) ==
LOC: LAB 06:50
PROVIDERS: PCP Family Medicine; Visit Provider Family Medicine
DX: F31.9 Bipolar disorder, unspecified (principal); R47.81 Slurred speech; R26.81 Unsteadiness on feet; Z79.899 Other long term (current) drug therapy
CPT/HCPCS: 36415; 80178

== ENCOUNTER 2025-02-02 06:38 | Outpatient (OUT) | payer MEDICARE, MEDICAID, SELFPAY ==
--- OUTSIDE RECORDS SUMMARY | 2023-09-02 05:50 | XMS_ITS ---
Author Organization [facility] Address [address] [place] [address] Care Team Providers Care Science Faculty Member Name Role Phone Lexus Thapa Primary Care Provider REASON FOR VISIT NEW PATIENT DENTAL EXAM Encounters Encounter Location Date Provider Diagnosis [facility] [address] [place] [address] 09/02/2023 Lexus Thapa Plan Of Treatment Next Appt Details Provider Name:Rickie Garg, 0 05/01/2025 09:30:00 AM, [address], [place], [address], Progress Notes * PJ CARDDOB:1985 ([age] yo F)Acc No.[id number]:09/02/2023 Patient:?KAE CARDAH :?Lexus Thapa DDSDOB:1985???Age:38 Y ???Sex:FemaleDate:09/02/2023hone:[phone]:[address] [place] [address], [place], [place] Subjective: * Chief Complaints: * N EW PATIENT DENTAL EXAM * Electronic signature of Lexus Thapa DDS on 02/02/2025 at 06:42 AM ESTSign off status: Pending * Provider: Kody Thapa DDS Date: 0 09/02/2023 Generated for Printing/Faxing/eTransmitting on:?02/02/2025 06:42 AM EST
--- OUTSIDE RECORDS SUMMARY | 2023-09-23 05:25 | XMS_ITS ---
Author Organization [facility] Address [address] [facility] [[email or web address]] [place] [address] Care Team Providers Care Geographical Historian Name Role Phone Lexus Thapa Primary Care Provider [phone] Dr. Rickie Hebert Unavailable [phone] REASON FOR VISIT NEW PT EXAM Encounters Encounter Location Date Provider Diagnosis [facility] [address] [facility] [place] [address] 09/23/2023 Rickie Garg Plan Of Treatment Next Appt Details Provider Name:Rickie Garg, 0 05/01/2025 09:30:00 AM, [address] [place], [address], Progress Notes * PJ CARDDOB:1985 ([age] yo F)Acc No.[id number]:09/23/2023 Patient:?PJ CARD :?ROBERT CheneyOB:1985???Age:38 Y???Sex: FemaleDate:09/23/2023hone:[phone]:[address] [place] [address]Sip:Lexus Thapa Subjective: * Chief Complaints: * N EW PT EXAM * Electronic signature of Dr. Rickie Garg , [facility], [id number] on 02/02/2025 at 06:42 AM ESTSign off status: Pending * Provider: Tru Garg DDS Date: 0 09/23/2023 Generated for Printing/Faxing/eTransmitting on:?02/02/2025 06:42 AM EST
--- OUTSIDE RECORDS SUMMARY | 2023-11-01 08:30 | XMS_ITS ---
Author Organization [facility] Address [address] [place] [address] Care Team Providers Care General Worker Name Role Phone Lexus Thapa Primary Care Provider [phone] REASON FOR VISIT NEW PT EXAM Encounters Encounter Location Date Provider Diagnosis [facility] [address] [place] [address] 11/01/2023 Lexus Thapa Plan Of Treatment Next Appt Details Provider Name:Rickie Garg, 0 05/01/2025 09:30:00 AM, [address] [place], [address], Progress Notes * PJ CARDDOB:1985 ([age] yo F)Acc No.[id number]:11/01/2023 Patient:?PJ CARD :?Lexus Thapa DDSDOB:1985???Age:38 Y ???Sex:FemaleDate:11/01/2023hone:[phone]:[address] [place] [address], [place] Subjective: * Chief Complaints: * N EW PT EXAM * Electronic signature of Lexus Thapa DDS on 02/02/2025 at 06:43 AM ESTSign off status: Pending * Provider: Kody Thapa DDS Date: 0 11/01/2023 Generated for Printing/Faxing/eTransmitting on:?02/02/2025 06:43 AM EST
--- OUTSIDE RECORDS SUMMARY | 2024-05-04 04:20 | XMS_ITS ---
Author Organization [facility] Address [address] [facility] [place] [address] Care Team Providers Care Weather Stripper Name Role Phone Lexus Thapa Primary Care Provider [phone] Dr. Rickie Hebert Unavailable [phone] REASON FOR VISIT tooth loose bottom right [place] Encounters Encounter Location Date Provider Diagnosis [facility] [address] [facility] [place] [address] 05/04/2024 Rickie Garg Plan Of Treatment Next Appt Details Provider Name:Rickie Garg, 0 05/01/2025 09:30:00 AM, [address] [place], [address], Progress Notes * PJ CARDDOB:1985 ([age] yo F)Acc No.[id number]:05/04/2024 Patient:?PJ CARD :?Rickie Garg DDSDOB:1985???Age:38 Y???Sex: FemaleDate:05/04/2024Phone:[phone]:[address] [place] [address]Zoz:Lexus Thapa Subjective: * Chief Complaints: * T ooth loose bottom right -[place] * Electronic signature of Dr. Rickie Garg , DMD, [id number] on 02/02/2025 at 06:42 AM ESTSign off status: Pending * Provider: Tru Garg DDS Date: 0 05/04/2024 Generated for Printing/Faxing/eTransmitting on:?02/02/2025 06:42 AM EST
--- OUTSIDE RECORDS SUMMARY | 2024-11-01 04:30 | XMS_ITS ---
Author Organization [facility] Address [address] [place] [address] Care Team Providers Care Cotton Farmer Name Role Phone Lexus Thapa Primary Care Provider [phone] Dr. Rickie Hebert Unavailable [phone] REASON FOR VISIT 6 month f/u Encounters Encounter Location Date Provider Diagnosis [facility] [place] [address] [place] [address] 2024 Rickie Garg Plan Of Treatment Next Appt Details Provider Name:Rickie Garg, 0 05/01/2025 09:30:00 AM, [address] [place], [address], Progress Notes * PJ CARDDOB:1985 ([age] yo F)Acc No.[id number]:11/01/2024 Patient:?PJ CARD :?ROBERT CheneyOB:1985???Age:39 Y???Sex: FemaleDate:11/01/2024Phone:[phone]:[address] [place] [address]Xjj:Lexus Thapa Subjective: * Chief Complaints: * 6 month f/u * Electronic signature of Dr. Rickie Garg , [facility], [id number] on 02/02/2025 at 06:42 AM ESTSign off status: Pending * Provider: Tru Garg DDS Date: 0 11/01/2024 Generated for Printing/Faxing/eTransmitting on:?02/02/2025 06:42 AM EST
--- OUTSIDE RECORDS SUMMARY | 2024-11-13 03:45 | XMS_ITS ---
Author Organization [facility] Address [address] [place] [address] Care Team Providers Care Larder Cook Name Role Phone Lexus Thapa Primary Care Provider [phone] REASON FOR VISIT CROWN PREP Encounters Encounter Location Date Provider Diagnosis [facility] [address] [address] 11/13/2024 Lxeus Thapa Plan Of Treatment Next Appt Details Provider Name:Rickie Garg, 0 05/01/2025 09:30:00 AM, [address] [place], [address], Progress Notes * STEPHIEPJDOB:1985 ([age] yo F)Acc No.[id number]:11/13/2024 Patient:?PJ CARD :?Lexus Thapa DDSDOB:1985???Age:39 Y ???Sex:FemaleDate:11/13/2024Phone:[phone]:[address] [place] [address], [place], [place] Subjective: * Chief Complaints: * C ROWN PREP * Electronic signature of Lexus Thapa DDS on 02/02/2025 at 06:42 AM ESTSign off status: Pending * Provider: Kody Thapa DDS Date: 0 11/13/2024 Generated for Printing/Faxing/eTransmitting on:?02/02/2025 06:42 AM EST
--- OUTSIDE RECORDS SUMMARY | 2024-12-11 04:30 | XMS_ITS ---
Author Organization [facility] Address [address] [place] [address] Care Team Providers Care Car Hopper Name Role Phone Lexus Thapa Primary Care Provider [phone] REASON FOR VISIT CROWN SEAT Encounters Encounter Location Date Provider Diagnosis [facility] [address] [place] [address] 12/11/2024 Lexus Thapa Plan Of Treatment Next Appt Details Provider Name:Rickie Garg, 0 05/01/2025 09:30:00 AM, [address] [place], [address], Progress Notes * PJ CARDDOB:1985 ([age] yo F)Acc No.[id number]:12/11/2024 Patient:?PJ CARD :?Lexus Thapa DDSDOB:1985???Age:39 Y ???Sex:FemaleDate:12/11/2024Phone:[phone]:[address] [place] [address], [place] Subjective: * Chief Complaints: * C ROWN SEAT * Electronic signature of Lexus Thapa DDS on 02/02/2025 at 06:42 AM ESTSign off status: Pending * Provider: Kody Thapa DDS Date: Generated for Printing/Faxing/eTransmitting on:?02/02/2025 06:42 AM EST
--- OUTSIDE RECORDS SUMMARY | 2025-01-30 09:10 | XMS_ITS | Encounter Summary ---
Author Organization [facility] Address [address] [place] [address] Care Team Providers Care Community Service Worker Name Role Phone Ramone Herrera DO Unavailable [phone] Lio Muñoz MD Primary Care Provider Reason for Visit * ReasonCommentsToenail CareNon DM nail careFoot PainB/L foot pain , requesting an injection Encounter Details DateTypeDepartmentCare Team (Latest Contact Info)Rjneqztqyzf52/10/2025 9:10 AM ESTProcedure Visit [facility] [address] [place] [phone] Bhanu Charlton, DPM FACFAS [address] [place] [address] Arthritis of foot, left (Primary Dx); Onychomycosis; Pain in left toe(s); Other enthesopathy of left foot and ankle; Pain in right toe(s) Social History Tobacco UseTypesPacks/DayYears UsedDateSmoking Tobacco: NeverSmokeless Tobacco: Never Tobacco Cessation:Counseling Given: Yes Alcohol UseStandard Drinks/WeekCommentsNever0 (1 standard drink = 0.6 oz pure alcohol)CommentsUnknownSex and Gender InformationValueDate RecordedSex Assigned at BirthNot on fileLegal OurMvcitj66/15/2023 10:14 PM EDTGender IdentityNot on fileSexual OrientationNot on filedocumented as of this encounter Last Filed Vital Signs Vital SignReadingTime TakenCommentsBlood Zxoikeqi870/6801/30/2025 9:12 AM EST Wfsmz133301/30/2025 9:12 AM ESTTemperature--Respiratory Rate--Oxygen Saturation-- Inhaled Oxygen Concentration--Fwcsmf53.4 kg (197 lb)01/30/2025 9:12 AM ESTHeight 162.6 [...] hyperactivity 05/25/2012 Bipolar disorder ([facility]) 05/04/2023 Essential hypertension 05/04/2023 Seizure disorder ([facility]) 05/04/2023 Pure hypercholesterolemia 05/04/2023 Anger reaction 07/14/2023 Convulsion ([facility]) 07/14/2023 Alteration of consciousness 07/14/2023 Development delay 07/14/2023 Resolved Ambulatory Problems Diagnosis Date Noted No Resolved Ambulatory Problems Past Medical History: Diagnosis Date ADHD (attention deficit hyperactivity disorder) Astigmatism Convulsions ([facility]) Developmental delay GERD (gastroesophageal reflux disease) Hypercholesterolemia Hyperopia Hypertension Impulse control disorder Intellectual disability Mental disorder Mood disorder OCD (obsessive compulsive disorder) Osteopenia PTSD (post-traumatic stress disorder) Seizures ([facility]) Medications: Current Outpatient Medications: acetaminophen (Tylenol) [...] subungual debris. They were painful to palpation 08851 on the right 54317 on the left. VASC: DP /PT were nonpalpable bilateral. Capillary refill time < 3 seconds Digits 1-5 bilateral NEURO: [place] Ami 5.07 monofilament was intact B/L. Vibratory [...] modifications she will be going to an shoe turner to have new shoes purchase follow up 2 weeks for reexamine. DAY Laura documented in this encounter Plan of Treatment DateTypeDepartmentCare Team (Latest Contact Info)Maxkbtpaeln39/31/2025 10:00 AM ESTClinical Support [facility] [address] [place] [address] Bhanu Charlton DPM FACFAS [address] [place] [address] 04/10/2025 9:10 AM ESTProcedure Visit [facility] [address] [place] [address] Bhanu Charlton DPM FACFAS [address] [place] [address] documented as of this encounter Visit Diagnoses Diagnosis Arthritis of foot, left- Primary Onychomycosis Dermatophytosis of nail Pain in left toe(s) Other enthesopathy of left foot and ankle Pain in right toe(s) documented in this encounter Care Teams Team MemberRelationshipSpecialtyStart DateEnd Date Lio Muñoz MD [address] [place] [address] PCP - GeneralFamily Medicine11/09/23 Ramone Herrera DO [address] [place] [address] Referring PhysicianNeurology05/19/23documented as of this encounter
--- OUTSIDE RECORDS SUMMARY | 2025-02-02 06:42 | XMS_ITS | Clinical Summary ---
Author Organization [facility] Address [id number] [address] [place] [address] Care Team Providers Care Community Resource Officer Name Role Phone Wanda Lio Kody SUN Primary Care Provider Allergies Active AllergyReactionsCriticalityNoted PkdsXyjbfyzwRaxqethqslef82/18/2024 Sfjygnpzqnw39/18/8641Updsmlcsvm38/18/8042Clakviyzj90/18/2305Mudtmjeyhx40/18/2024 Other06/09/2012 [employer] Medications MedicationSigDispense QuantityRefillsLast FilledStart DateEnd [...] DAY NEEDED FOR NASAL CONGESTION AND COUGH ODHUGTI82/11/2025Active Active Problems ProblemNoted DateDiagnosed DateMass of right paahio7708/08/2024reast skin changes 08/08/20246117Caaxknqlqdzz64/05/2024 Encounters DateTypeDepartmentCare YhkuRvjiydmcnvd01/30/2025 11:00 AM EDTOffice Visit [facility] [address] [place] [address] Abby Bauman PA Cellulitis of right breast (Primary Dx)11/20/2024Telephone [facility] [address] [place] [address] Luz Marina Nunez LPN 11/20/2024Travelfrom Last 3 Months Social History Tobacco UseTypesPacks/DayYears UsedDateSmoking Tobacco: NeverSmokeless Tobacco: Never Tobacco Cessation:Counseling Given: Not Answered Alcohol UseStandard Drinks/WeekCommentsNever0 (1 standard drink = 0.6 oz pure alcohol)CommentsNoSex and Gender InformationValueDate RecordedSex Assigned at BirthNot on fileLegal LndNqfezr56/07/2024 12:38 PM ESTGender IdentityNot on fileSexual OrientationNot on file Last Filed Vital Signs Vital SignReadingTime TakenCommentsBlood Eitqmnql092/9111/20/2024 10:58 AM EDT Gqmid7992/30/2025 10:58 AM EDTTemperature--Respiratory Iffg921011/20/2024 10:58 AM EDTOxygen Qnehsicqcz616%07/28/2023 2:07 PM EDTInhaled Oxygen Concentration-- Xhwohe91.4 kg (164 lb)11/20/2024 10:58 AM NPFSlqqbd713.8 cm (5' 4.49 )11/20/2024 10:58 AM EDTBody Mass Index27.7311/20/2024 10:58 AM EDT Plan of Treatment Health MaintenanceDue DateLast DoneCommentsDepression Cjrvyonlz47/14/1999Adult BMI Follow Up Plan2004COVID-19 Vaccine ( season)2024 12/08/2023, 12/08/2022, 12/09/2021, Additional history existsInfluenza Vaccine /, 12/08/2022, 12/09/2021, Additional history existsAdult BMI Lgcjlkyst96Tobacco Lwkyhconx38Pap Smear /DTaP,Tdap and Td Vaccines (7 - Td or Tdap)11/11/2029 11/12/2019, 11/29/2001, 12/03/1991, Additional history exists Medical Devices Not on file Insurance * Guarantor: Migdalia ConnellyAccogian TypeRelation to PatientDate of BirthPhoneBilling AddressPersonal/HbdubhUiir85/[birth year][address] [address] Care Teams Team MemberRelationshipSpecialtyStart DateEnd Date Lio Muñoz DO [address] [place] [address] [facility]
--- OUTSIDE RECORDS SUMMARY | 2025-02-02 06:43 | XMS_ITS | Clinical Summary ---
Author Organization [facility] Address [address] [place] [address] Care Team Providers Care Lead Principal Technical Architect Name Role Phone Ramone Herrera DO Unavailable [phone] Lio Muñoz MD Primary Care Provider [phone] Allergies Active AllergyReactionsCriticalityNoted XgzkSdabirbwWgkptklcqqeZcnxour23/19/2013 HtgvfhdqdjkdTgizpof30/19/1008AsotasfbwoszzgleZxzoksg41/07/2024extromethorphan Hbr06/09/2012Food06/09/2012 Peterson Slaw XvkndtkezdCsycwyi54/19/6617ZsdfbikgpBeauclj40/19/8175SwrtdjlvwkOsnlwff83/19/2013 Yrbzyirdlkawalcd27/19/2013Valproic HddaAmvffol14/24/2019 Per OSH H+P 08/2018 Medications MedicationSigDispense QuantityRefillsLast [...] tablet Take 300 mg by mouth at mjyzwyy3204/27/2023ctive lamoTRIgine (LaMICtal) 200 MG tablet Take 1 [...] or split..Active Active Problems ProblemNoted DateDiagnosed DateAnger ldceygjt92/23/2024 Overview (07/14/2023): Seemingly stable per report from the patient's caregiver today. PLAN: - Follow closely with psychiatry and primary care provider for management Eqjuggsnux01/23/2024 Overview (07/14/2023): The patient has a history [...] mental status in the future Alteration of qlxrbhwvtavbe38/23/2024 Overview (07/14/2023): The patient and caregiver deny any episodes of altered consciousness or awareness since the prior appointment at [facility]. Development delay07/14/2023 Overview (07/14/2023): Risk factor for seizures. Bipolar pnoknyfl40/13/2024Essential vbflepdcwfdz89/13/2024Seizure disorder 05/04/2023ure usgxhwcvzybcftprawcp84/13/2024ttention deficit disorder with wqiagwdzyqwdw11/04/2013 Overview (05/04/2023): Attention deficit disorder with hyperactivity Encounters DateTypeDepartmentCare RxtuGolwuwanmlt86/10/2025 9:10 AM ESTProcedure Visit [facility] [address] [place] [phone] Bhanu Charlton, DPM FACFAS Arthritis of foot, left (Primary Dx); Onychomycosis; Pain in left toe(s); Other enthesopathy of left foot and ankle; Pain in right toe(s)01/30/2025amboo flowsheet [facility] [address] [place] [address] Bhanu Charlton, DPM FACFAS 11/15/2024bstract [facility] [address] [facility] [place] [address] Bhanu Charlton, DPM FACFAS 11/14/2024 9:00 AM EDTProcedure Visit [facility] [address] [place] [address] Bhanu Charlton, DPM FACFAS Onychomycosis (Primary Dx); Pain in left toe(s); Pain in right toe(s)11/14/2024amboo [facility] [address] [place] [address] Bhanu Charlton, DPM FACFAS from Last 3 Months Family History RelationNameStatusCommentsMotherAlive Social History Tobacco UseTypesPacks/DayYears UsedDateSmoking Tobacco: NeverSmokeless Tobacco: Never Tobacco Cessation:Counseling Given: Yes Alcohol UseStandard Drinks/WeekCommentsNever0 (1 standard drink = 0.6 oz pure alcohol)CommentsUnknownSex and Gender InformationValueDate RecordedSex Assigned at BirthNot on fileLegal CgcLltwgy13/15/2023 10:14 PM EDTGender IdentityNot on fileSexual OrientationNot on file Last Filed Vital Signs Vital SignReadingTime TakenCommentsBlood Ovatskpf382/6801/30/2025 9:12 AM EST Rsuna167601/30/2025 9:12 AM ESTTemperature--Respiratory Ztth881706/04/2024 10:33 AM EDTOxygen Ybaajpqzxn29%06/04/2024 10:33 AM EDTInhaled Oxygen Concentration-- Pkbpia89.4 kg (197 lb)01/30/2025 9:12 AM JMKMwylhm114.6 cm (5' 4 )01/30/2025 9:12 AM ESTBody Mass Index33.8101/30/2025 9:12 AM EST Plan of Treatment DateTypeDepartmentCare Team (Latest Contact Info)Wbdsmqimjpa53/31/2025 10:00 AM ESTClinical Support [facility] [address] [place] [phone] Bhanu Charlton, DPM FACFAS [address] [place] [address] 04/10/2025 9:10 AM ESTProcedure Visit [facility] [address] [place] [phone] Bhanu Charlton, DPM FACFAS [address] [place] [address] Insurance Care Teams Team MemberRelationshipSpecialtyStart DateEnd Lio Muñoz MD [address] [place] [address] PCP - GeneralFamily Medicine11/09/23 Ramone Herrera DO [address] [place] [address] Referring PhysicianNeurology05/19/23
--- OUTSIDE RECORDS SUMMARY | 2025-02-02 06:43 | XMS_ITS | Clinical Summary ---
Author Organization [facility] Address [address] [facility] [place] [address] Care Team Providers Care Collar Stay Fuser Tender Name Role Phone Unavailable Primary Care Provider Unavailabl e Source Comments The following information is NOT included in Care Everywhere downloads:Psychiatric notes, ECG results, Cardiac Rehab notes, Pulmonary Function notes, data from SmartForms (includes but not limited toPregnancy data,audiograms, eye exams, pre-surgical evaluation notes, well-child exam data).[facility] Allergies Active AllergyReactionsCriticalityNoted XxcdRqykldqhVeagrrg91/19/2013moxicillin 06/09/2012Valproic Acid09/13/2018 Per OSH H+P 08/2018 Food06/09/2012 Peterson Slaw Vbwprvbgck32/19/9691Iahutkcub60/19/2503Izwcxlhmtz54/19/2013Sympathomimetics 06/09/2012Dextromethorphan Hbr06/09/2012 Medications MedicationSigDispense QuantityRefillsLast FilledStart DateEnd [...] AM EDT5Active Active Problems ProblemNoted DateDiagnosed DateDissociative nuovgpqs26/11/2024Impulse control xpcikadi13/11/2024Gastroesophageal reflux ddczrwr6002/01/20242486Kcfimczg28/11/2024 Posttraumatic stress /08/2024ipolar /03/2024Caries 09/05/2018 Overview (09/05/2018): Added automatically from request for surgery [id number] Dental decay08/26/2016 Overview (08/26/2016): Added automatically from request for surgery [id number] Unspecified dental popuaa2306/09/2012Chronic periodontitis, sarqhxtiwsg31/19/2013 Unconfirmed gttrujmkf84/19/2013Moderate intellectual yiaqtonixxbs23/04/2013 Attention deficit hyperactivity disorder (ADHD)05/25/2012 Overview (06/03/2018): Attention deficit disorder with hyperactivity Immunizations ImmunizationAdministration DatesNext DueDTP (CVX=01)09/06/1988,1986, 1986,1986Hep B (peds/adol, 3-dose) (CVX=08)05/04/2001,11/10/2000, 10/10/2000Hib, unspecified formulation (CVX=17)01/23/1988Influenza, injectable, quadrivalent, preservative (YDO=799)12/15/2016Influenza, injectable, quadrivalent, preservative free (BTE=476)12/17/2020,11/28/2019,11/30/2017, 12/12/2014Influenza, injectable, trivalent, preservative (ITV=372)11/10/2010MMR, Cnohoqj-Wzofl-Jrtgqfw (CVX=03)05/30/1998,04/30/1987Meningococcal conjugate (MCV4,Men-ACWY), Menactra (MCV4P) (BKF=313)07/07/2006Pfizer Monovalent (12+ yrs) SARS-COV-2 (COVID-19) vaccine, mRNA, spike protein, LNP, pres. free, 30mcg/0.3mL dose (JIT=901)03/25/2020,1Polio, oral (OPV) (CVX=02)12/03/1991, 09/06/1988,1986,1986Td (adult), unspecified formulation (MRA=951) 11/29/2001,12/03/1991Tdap (QQW=080)11/12/2019 Social History Tobacco UseTypesPacks/DayYears UsedDateSmoking Tobacco: NeverSmokeless Tobacco: NeverAlcohol UseStandard Drinks/WeekCommentsNever0 (1 standard drink = 0.6 oz pure alcohol)Substance UseTypesUse/WeekCommentsNeverCommentsNoSex and Gender InformationValueDate RecordedSex Assigned at BirthNot on fileLegal Sex Kwiwnw4301/12/2012 4:11 PM ESTGender IdentityNot on fileSexual OrientationNot on file Last Filed Vital Signs Vital SignReadingTime TakenCommentsBlood Iggjldbq016/8908 10:00 AM EDTok for DC per Dr. Moralez, pt will take home BP dtpiToyga36709/18/2025 10:00 AM EDT Sncffvrketu62.6 ??C (97.9 ??F)10/08/2024 10:00 AM EDTRespiratory Rate17 10/08/2024 10:00 AM EDTOxygen Qyjpcywaux29%10/08/2024 10:00 AM EDTInhaled Oxygen Concentration--Pkbtnu98.6 kg (182 lb)10/08/2024 7:13 AM NTNFzezpc560.1 cm (5' 5 )10/08/2024 7:13 AM EDTBody Mass Index30.29010/08/2024 7:13 AM EDT Plan of Treatment Health MaintenanceDue DateLast DoneCommentsAnnual Wellness Visit (G0438) 02/21/1999HIV Test2001Hepatitis C Bptsqrdg14/14/2005Hepatitis A (HAV) Vaccine (optional start 19+ years)2005Pap Smear07/05/2007HPV Vaccine (optional start 27-45 years)2013COVID-19 Vaccine ( season) , 12/17/2020, 03/25/2020, Additional history existsInfluenza Vaccine (#1)/, 11/28/2019, 11/30/2017, Additional history existsDental Oral Exam/, 12/15/2023, 3Dental Ndltffqputr69/19/202608/Dental X-Ray: Ztlpbuoab28/, 12/15/2023Tetanus (Td or Tdap) Wwpijbf18, 11/29/2001, 12/03/1991Shingles (RZV) Vaccine (1 of 2)2036Hepatitis B (HBV) Vaccine Woxbwcxls78/14/2002, 11/10/2000, 10/10/2000Tdap ZjxqlcdNfwdyunhf01/21/2020 Mammography (shared decision-making, age 35-39)Rqbjpzhrs30/19/2025Mammography Nlzgioyeiknt39/19/2025, 08/09/2024Pneumococcal Vaccine(s)Aged OutNo longer eligible based on patient's age to complete this topic Procedures Procedure NamePriorityDate/TimeAssociated DiagnosisCommentsPROPHY ADULT 14 & OCZKEDnhhqeo26/18/2025 12:00 AM EDTCOMPREHENSIVE DNJOCrpdhka49/18/2025 12:00 AM EDTfrom Last 3 Months or Most Recently Relevant to Health Maintenance Insurance * Guarantor: Migdalia Connelly EAccount TypeRelation to PatientDate of BirthPhone Billing AddressPersonal/CowimvIlcp17/14/[address] [address]
--- OUTSIDE RECORDS SUMMARY | 2025-02-02 06:43 | XMS_ITS | Encounter Summary ---
Author Organization [facility] Address [address] [place] [address] Care Team Providers Care Knot Tying Operator Name Role Phone Ramone Herrera DO Unavailable [phone] Lio Muñoz MD Primary Care Provider Encounter Details DateTypeDepartmentCare Team (Latest Contact Info)Xkcyqmvyybq52/10/2025amboo flowsheet [facility] [address] [place] [address] Bhanu Charlton, DPM FACFAS [address] [place] [address] Social History Tobacco UseTypesPacks/DayYears UsedDateSmoking Tobacco: NeverSmokeless Tobacco: NeverAlcohol UseStandard Drinks/WeekCommentsNever0 (1 standard drink = 0.6 oz pure alcohol)CommentsUnknownSex and Gender InformationValueDate Recorded Sex Assigned at BirthNot on fileLegal HpaDasqan84/15/2023 10:14 PM EDTGender IdentityNot on fileSexual OrientationNot on filedocumented as of this encounter Plan of Treatment DateTypeDepartmentCare Team (Latest Contact Info)Frxbtzwizcy34/31/2025 10:00 AM ESTClinical Support [facility] [address] [place] [phone] Bhanu Charlton, DPM FACFAS [address] [place] [address] 04/10/2025 9:10 AM ESTProcedure Visit [facility] [address] [facility] [place] [address] Bhanu Charlton, DPM FACFAS [address] [facility] [place] [address] documented as of this encounter Visit Diagnoses Not on filedocumented in this encounter Care Teams Team MemberRelationshipSpecialtyStart DateEnd Date Lio Muñoz MD [address] [place] [id number] PCP - GeneralFamily Medicine11/09/23 Ramone Herrera DO [address] [place] [address] Referring PhysicianNeurology05/19/23documented as of this encounter
--- OUTSIDE RECORDS SUMMARY | 2025-02-02 06:43 | XMS_ITS | CCD ---
Author Organization [facility] CliniSyor Care Team Providers Care Credit Portfolio Advisor Name Role Phone SYSTEM, PROVIDER NOT IN [...] Provider Unavailabl e IMAN Amanda Emergency Provider [phone] DO Jass Yaneyda Admit Provider DO Arvind Regan Attending Provider IMAN Amanda Emergency Provider DO Jass Yazid Admit Provider DO Rico Romero Attending Provider [phone] DO Lio Muñoz Primary Care Provider DO Titi Terry Emergency Provider ЕленаnjRamone Mcguire DO Unavailable Lio Muñoz MD Primary [...] Unavailable Muñoz DO, Lio A Attending Provider [phone] MuñozArmani aggarwalel A Admitting Unavailable Muñoz, Lio [...] MUÑOZ, LIO A Primary Care Unavailable Rashid TRAINING AND DEVELOPMENT COORDINATOR-SOCIAL WORK THERAPIST-CMigdalia Attending Provider NON STAFF Primary Care Provider Unavailvarsha e Allergies Allergy ClassificationReported Allergen(s)Allergy TypeDate of OnsetReaction(s) FacilityAdrenergic Agonists (1 source)PseudoephedrineDrug Xclfgow84-81-8937Esnhgly ReactionMercy Health Clermont HospitalARIPiprazole (1 source)ARIPiprazoleDrug Sdqrqkv80-69-2021Ztedxup ReactionMercy Health Clermont HospitalChlorpheniramine (1 source)ChlorpheniramineDrug Fewiccb02-97-1379Barxino ReactionFirProtestant Deaconess HospitalDextromethorphan (1 source)DextromethorphanDrug Yxuuysh96-23-0692Ofhukuy ReactionMercy Health Clermont HospitalguaiFENesin (1 source)guaiFENesinDrug Gokddux28-41-5196Coddneq ReactionMercy Health Clermont HospitalmetyroSINE (1 source)metyroSINEDrug Ewtbvup01-82-3383Lppvzhb ReactionMercy Health Clermont HospitalMolindone (1 source)MolindoneDrug Hghmtbk53-32-9152Fqgqwiw ReactionMercy Health Clermont HospitalPenicillins (antibiotic) (1 source)AmoxicillinDrug Jtpdpey85-21-7825Rvkforv ReactionMercy Health Clermont HospitalPhenylpropanolamine (1 source)PhenylpropanolamineDrug Vtecftn70-68-1051Yfrlmaq ReactionMercy Health Clermont HospitalValproate (1 source)ValproateDrug Rpvzapj55-08-0459Awkvzhx ReactionMercy Health Clermont Hospital (20 sources)Amoxicillin; Translations: [AMOXICILLIN]Drug Xxontlo32-23-0591 [facility] (20 sources)ARIPiprazole; Translations: [Abilify]Drug Wsxqiks31-76-2069 [facility] Work Phone: (20 sources)Dextromethorphan; Translations: [DEXTROMETHORPHAN HBR]Drug Allergy 49-59-1419WjrsoQtbbic (20 sources)metyroSINE; Translations: [METYROSINE]Drug Nhmrgtd41-48-6813Ifnfwyf [facility] (20 sources)Molindone; Translations: [MOLINDONE]Drug Htinbsx32-29-7657Haunntj [facility] (20 sources)Nalbuphine; Translations: [NALBUPHINE]Drug Aqniqmj85-61-0872Rusarke [facility] (20 sources)Valproate; Translations: [VALPROIC ACID]Drug Bbwmajf03-69-0554 [facility] (20 sources)Food; Translations: [FOOD]Propensity to adverse reactions to drug 48-11-3789MoilgNvkfsx (20 sources)Sympathomimetics; Translations: [SYMPATHOMIMETICS]Propensity to adverse reactions to htbh44-28-6544Abdqeov ReactionMet[facility] (1 source)AmoxicillinDrug AllergyThe [facility] (1 source)metyroSINEDrug AllergyThe [facility] (1 source)MolindoneDrug AllergyThe [facility] (1 source)NalbuphineDrug AllergyThe [facility] (1 source)ValproateDrug AllergyThe [facility] (1 source)Vicks 44 Custom CareDrug allergy (disorder)[facility] (20 sources)ARIPiprazole; Translations: [ARIPIPRAZOLE]Drug Lecmnbk93-65-8458 [facility] (20 sources)ChlorpheniramineDrug Yrlkrgf58-52-7305MbzflxyCftitcbwhSelect [facility]ty [facility] [place] (4 sources)DextromethorphanDrug Tcxeomx27-26-8708Pgjctsl [facility] (4 sources)guaiFENesinDrug Pcvgxwz84-65-7140SzgttaySheltering Arms Hospital (4 sources)PhenylpropanolamineDrug Ilndmeq95-76-3192Ddsqxeq [facility] (4 sources)PseudoephedrineDrug Kgfwgfx90-74-5351Mitnldi [facility] (4 sources)ValproateDrug Vsulvrs30-96-0857Qxqgdqa [facility] (9 sources)metyroSINEDrug Vjrhhyv88-59-5970GskCofjww Health System (8 sources)Other; Translations: [OTHER]Propensity to adverse qsqkccibb23-57-0730 [facility] Medications Current Medications MedicationDrug Class(es)DatesSig (Normalized)Sig (Original)acetaminophen 500 mg oral tablet (20 sources)Start: 04-37-5411jisu 1 tablet by mouth every six hours as needed for painacetaminophen (TYLENOL) 500 MG tablet Take 1 Tablet by mouth every 6 hours as needed for Pain or Fever. 30 Tablet 10/08/2024 10:08 AM EDT 10/08/2024 ActiveStart: 10-08-2024 End: 17-31-5575426 mg, Oral, PACU ONCE PRN, Starting on Tue10/08/24 at 0803, Until Tue10/08/24 at 1402, Mild Pain (pain score 1,2,3), PACU NowStart: 51-77-8642ffby 2 capsules by mouth twice daily as needed for painAcetaminophen 325 mg capsule Active 650 MG PO Twice daily as needed for fever or pain August 06, 2023 12:00am Complies with drug therapyStart: 91-45-9785fdtl 650 mg by mouth twice dailyAcetaminophen Active [...] 0.83 mg/ml inhalation solution (5 sources)beta2-Adrenergic AgonistStart: 73-78-1085sgwg 1 dose by inhalation every six hours as neededalbuterol (PROVENTIL,VENTOLIN) 2.5 mg /3 mL (0.083 %) nebulizer solution INHALE 1 VIAL VIA NEBULIZER EVERY 6 HOURS NEEDED FOR 2 WEEKS 05/23/2024 Activeatomoxetine 60 mg oral capsule (20 sources)Norepinephrine Reuptake InhibitorStart: 32-53-6214gsac 1 capsule by mouth once daily in the morningStart: 39-11-2661fhje 1 capsule by mouth once daily in the eveningbusPIRone hydrochloride 10 mg oral tablet (4 sources)take 1 tablet by mouth twice dailybusPIRone (BUSPAR) 10 MG tablet Take 10 mg by mouth 2 times daily. Activecalcium carbonate 750 mg chewable tablet (20 sources)Start: 35-43-2534gnem 2 tablets by mouth every four hours as needed Calcium Carbonate Antacid (Tums Smoothies) 750 MG CHEW Take 2 Tablets by mouth every 4 hours as needed. 05/29/2023 ActiveStart: 02-16-7547cqmi 1 tablet by mouth every four hours as neededcalcium carbonate 1500 mg / cholecalciferol 200 unt oral capsule (20 sources)Vitamin DStart: 52-22-4444xsnx 1 capsule by mouth twice dailyStart: 27-76-0267awkw 1 tablet by mouth in the morningcalcium carbonate-vitamin D3 600 mg(1,500mg) -800 units tablet Take 1 tablet by mouth in the morning and 1 tablet before bedtime. 04/26/2023 ActiveStart: 22-66-4485xcni 1 tablet by mouth in the morningCalcium+D3 600-20 MG-MCG tablet Take 1 tablet by mouth in the morning and 1 tablet before bedtime. 04/26/2023 Activetake 1 tablet by mouth twice daily Calcium+D3 600-20 MG-MCG TABS Take 1 Tablet by mouth 2 times daily. Active calcium polycarbophil 625 mg oral tablet (20 sources)Start: 54-27-5199ywoz 1 tablet by mouth in the morningFIBER-LAX 625 mg tablet Take 1 tablet (625 mg total) by mouth in the morning. 07/21/2023 ActiveStart: 05-29-2023 End: 22-15-1108Vsbpmsr Polycarbophil (FIBER-LAX ORAL) Take by mouth. 09/21/2024 DiscontinuedCalcium Polycarbophil (FIBER-LAX ORAL) Take by mouth. ActiveCalcium Polycarbophil (FIBER-LAX ORAL) Take by mouth. 0 Zdawky57 hr carBAMazepine 200 mg extended release oral tablet (20 sources)Mood StabilizerStart: 03-69-9460pkhn 1 tablet by mouth twice daily carBAMazepine (TEGRETOL XR) 200 MG SR tablet Take 1 Tablet by mouth 2 times daily. 09/21/2024 ActiveStart: 53-86-0928xopl 1 tablet by mouth three times dailyStart: 55-14-0279eqyp 400 mg by mouth once daily in the evening Carbamazepine Active 400 MG PO Every evening May 29, 2023 12:00amStart: 04-27-2023 End: 84-75-8507aiwj 1 tablet by mouth three times dailycarBAMazepine (TEGRETOL XR) 200 MG SR tablet Take 200 mg by mouth 3 times daily. 11/16/2023 09/21/2024 Discontinuedtake 1 capsule by mouth once daily in the eveningcarBAMazepine ER (CARBATROL) 100 MG CR capsule Take 100 mg by mouth daily. At 4 pm Active End: 13-95-0230yvyw 1 tablet by mouth once dailycarbamazepine (TEGretol-XR) [...] 300 mg oral capsule (7 sources)Lincosamide AntibacterialStart: 33-99-4917ajoiaubyjzc (CLEOCIN) 300 mg capsule 08/05/2024 ActiveStart: 49-36-0715ytkg 1 capsule by mouth three times dailyclindamycin (CLEOCIN) 300 MG capsule Take 1 Capsule by mouth 3 times daily for 7 days. 21 Capsule 07/14/2020 ActivecloNIDine hydrochloride 0.2 mg oral tablet (20 sources)Central alpha-2 Adrenergic AgonistStart: 29-68-1009idgd 1 tablet by mouth three times dailycloNIDine (Catapres) 0.2 MG tablet 1 (one) time each day at the same time Activedicyclomine hydrochloride 20 mg oral tablet (20 sources)AnticholinergicStart: 68-86-4201qeah 1 tablet by mouth every six hoursdicyclomine (BENTYL) 20 mg tablet Take 1 tablet (20 mg total) by mouth every 6 (six) hours. 07/21/2023 ActiveStart: 02-38-6810ktfk 1 tablet by mouth twice dailydicyclomine (Bentyl) 20 MG tablet every 12 (twelve) hours Active docusate sodium 100 mg oral capsule (20 sources)Start: 03-04-0531hptq 1 capsule by mouth twice daily as needed for constipationStart: 12-68-9269vqmk 2 capsules by mouth twice dailyStart: 57-84-5252gdmg 200 mg by mouth twice dailyDocusate Sodium Active 200 MG PO Twice daily Jalyn 7th, 2024 12:00amDocusate Sodium (DSS) 100 MG capsule 1 (one) time each day at the same time Activetake 1 capsule by mouth three times daily docusate sodium (COLACE) 100 MG capsule Take 100 mg by mouth 3 times daily. ActiveLevonorgestrel-Ethinyl Estrad (20 sources)Progestin, Estrogen, Progestin-containing Intrauterine DeviceStart: 06-05-7766wymv 1 tablet by mouth once dailyStart: 90-51-2030drbh 1 tablet by mouth once dailyLevonorgestrel-Ethinyl Estrad [...] capsule (20 sources)Peroxisome Proliferator Receptor alpha AgonistStart: 19-88-6285ziki 1 capsule by mouth once daily before breakfastfenofibrate micronized (LOFIBRA) 134 mg capsule Take 1 capsule (134 mg total) by mouth every morning before breakfast. 07/21/2023 ActiveStart: 56-00-7199gtye 1 tablet by mouth at bedtime fluticasone propionate 0.05 mg/actuat metered dose nasal spray (20 sources)CorticosteroidStart: 74-04-8408wenp 1 spray(s) nasal route in the morningfluticasone propionate (FLONASE) 50 mcg/actuation nasal spray Administer 1 spray into each nostril in the morning. 05/29/2023 ActiveStart: 92-45-5729ibew 1 spray(s) nasal route once daily as [...] mg/ml ophthalmic solution (5 sources)Non-Standardized Chemical AllergenStart: 69-04-1989wtiz 0.012-0.2 drop(s) into the eye(s) three times daily as oqedlp53 hr guaiFENesin 600 mg extended release oral tablet (5 sources)Start: 33-12-5422vogn 1 tablet by mouth twice daily as needed for congestion and coughguaiFENesin (MUCINEX) 600 mg tablet extended release 12hr TAKE ONE TABLET BY MOUTH TWICE A DAY NEEDED FOR NASAL CONGESTION AND COUGH MUCINEX 06/01/2024 ActiveguanFACINE 2 mg oral tablet (20 sources)Central alpha-2 Adrenergic AgonistStart: 83-24-1149nxqz 1 tablet by mouth once dailyguanFACINE (TENEX) 2 mg tablet Take 1 tablet (2 mg total) by mouth nightly. 05/29/2023 ActiveStart: 28-47-7133auwn 1 tablet by mouth three times dailytake [...] mg oral tablet (20 sources)Nonsteroidal Anti-inflammatory DrugStart: 93-77-4389swrt 1 tablet by mouth every six hours as needed for painibuprofen (MOTRIN) 400 MG tablet Take 1 Tablet by mouth every 6 hours as needed for Pain. 90 Tablet2 10/08/2024 10:08 AM EDT 10/08/2024 ActiveStart: 93-65-3515hxbl 1 tablet by mouth every six hours as neededibuprofen (ADVIL,MOTRIN) 200 mg tablet Take 1 tablet (200 mg total) by mouth every 6 (six) hours asneeded. 05/29/2023 ActiveStart: 58-89-8147uuxz 2 tablets by mouth every four to [...] oral tablet (20 sources)Mood Stabilizer, Anti-epileptic AgentStart: 20-07-5035gcrf 1 tablet by mouth in the morninglamoTRIgine (LaMICtal) 150 mg tablet Take 1 tablet (150 mg total) by mouth in the morning. 07/21/2023 ActiveStart: 82-65-8449jayx 0.5 tablet by mouth in the morninglamoTRIgine (LaMICtal) 200 mg tablet Take 0.5 tablets (100 mg total) by mouth in the morning. 07/21/2023 ActiveStart: 91-33-3641mcru 1 tablet by mouth at bedtimeStart: 03-20-1733Blokm: 04-27-2023 take 1 tablet by mouth once daily in the morningStart: 20-98-4113eyis 2 tablets by mouth at bedtimelamoTRIgine (LaMICtal) 150 MG tablet Take 300 mg by mouth at bedtime 04/27/2023 Activetake 2 tablets by mouth once dailylamotrigine (LAMICTAL) 25 MG tablet Take 50 mg by mouth daily. Activeloperamide hydrochloride 2 mg oral tablet (20 sources)Opioid AgonistStart: 48-21-7524illgskmyxf (IMODIUM A-D) 2 mg tablet Take 1 tablet (2 mg total) by mouth as needed in the morning and 1 tablet (2 mg total) as needed at noon and 1 tablet (2 mg total) as needed in the evening. 05/29/2023 ActiveStart: 91-78-9990pthp 1 tablet by mouth three times daily as neededloperamide (IMODIUM A-D) 2 mg tablet Take 1 tablet (2 mg total) by mouth 3 (three) times a day as needed. 05/29/2023 ActiveStart: 33-32-1870pajhhkdnun 10 mg oral tablet (20 sources)Start: 93-32-9792fqvq 1 tablet by mouth once dailymetoprolol tartrate 100 mg oral tablet (20 sources)beta-Adrenergic BlockerStart: 05-29-2023 End: 98-73-0214oqtp 1 tablet by mouth four times dailymetoprolol [...] mg oral tablet (20 sources)Leukotriene Receptor AntagonistStart: 55-05-9855fetb 1 tablet by mouth once dailynaltrexone hydrochloride 50 mg oral tablet (4 sources)Opioid Antagonisttake 1 tablet by mouth once dailynaltrexone (DEPADE) 50 MG tablet Take 50 mg by mouth daily. ActiveOLANZapine 20 mg oral tablet (20 sources)Atypical AntipsychoticStart: 81-29-9836dbwi 1 tablet by mouth once dailyOLANZapine (ZyPREXA) 20 mg tablet Take 1 tablet (20 mg total) by mouth nightly. Total 30mg 07/21/2023 ActiveStart: 56-27-3369Vhxso: 04-27-2023 End: 51-91-8090ontw 1 tablet by mouth once daily at bedtimeomeprazole 20 mg delayed release oral capsule (20 sources)Proton Pump InhibitorStart: 12-59-3771swrk 1 capsule by mouth once daily2 ml ondansetron 2 mg/ml injection (20 sources)Serotonin-3 Receptor AntagonistStart: 10-08-2024 End: 53-41-8622leju 4 mg intravenously once as needed for nausea4 mg, Intravenous, PACU ONCE PRN, Starting on Tue10/08/24 at 0803, Until Tue10/08/24 at 1402, Nausea, Vomiting, PACU NowStart: 05-29-2023 End: 19-92-6969mtja 1 tablet by mouth every six hours [...] 5 mg oral tablet (1 source)Opioid AgonistStart: 29-80-577434 mg, Oral, PRN, 1 dose, Starting on Tue10/08/24 at 0803, Until Discontinued, Moderate Pain (pain score 4,5,6), PACU Now24 hr paliperidone 6 mg extended release oral tablet (20 sources)Atypical AntipsychoticStart: 30-20-9209udwn 1 tablet by mouth once daily in the morningpaliperidone (INVEGA) 6 mg 24 hr tablet Take 1 tablet (6 mg total) by mouth every morning. 07/21/2023 ActiveStart: 06-69-2346dkmk 1 tablet by mouth twice dailyStart: 89-86-0950hatttobikgwg (Invega) 6 MG 24 hr tablet 1 tablet in the morning and 1 tablet before bedtime. 04/27/2023 Activepetrolatum 1 mg/mg topical ointment (5 sources)Start: 55-62-8211xcotjpyusaja glycol 3350 93276 mg powder for oral solution (20 sources)Osmotic LaxativeStart: 18-05-4349lpriyejcxbah glycol (GLYCOLAX) 17 gram/dose powder Take 17 g by mouth. 11/18/2023 ActiveStart: 35-31-1767qrnsrfhz 400 mg oral capsule (2 sources)Start: 78-19-3211Lbnzwsdu Husk (Metamucil) 0.4 gram capsule (1 source)Start: 67-39-0860Rvbwduri Husk (Metamucil) 0.4 gram capsule Active 0.4 GM PO Daily August 06, 2023 12:00amraNITIdine 150 mg oral tablet (4 sources)Histamine-2 Receptor Antagonisttake 1 tablet by mouth twice daily ranitidine (ZANTAC) 150 MG tablet Take 150 mg by mouth 2 times daily. Ivudjl11 hr scopolamine 0.0139 mg/hr transdermal system (1 source)AnticholinergicStart: 10-08-2024 End: mg, Transdermal, STAT, 1 dose, On Tue10/08/24 at 0730, Pre-op Sennosides (Senna) 8.6 mg capsule (3 sources)Start: 31-44-8336qkyi 2 capsules by mouth twice dailySennosides (Senna) 8.6 mg capsule Active 17.2 MG PO Twice daily May 29, 2023 12:00am sennosides, half-way 8.6 mg oral tablet (20 sources)Start: 78-27-8078elqhratvyf (Senokot) 8.6 MG tablet Twice daily 05/29/2023 ActiveStart: 29-48-5770ctmy 2 capsules by mouth twice daily as needed for constipationsimethicone 250 mg oral capsule (3 sources)Start: 81-97-6290tgev 1 capsule by mouth twice daily as needed tacrolimus 0.001 mg/mg topical ointment (20 sources)Calcineurin Inhibitor ImmunosuppressantStart: 97-94-1871igruycyaty (Protopic) 0.1 % ointment Indications: Lip licking dermatitis Apply to affected areas bid prn when flared 60 g 11 12/09/2023 Activezolpidem tartrate 10 mg oral tablet (4 sources)gamma-Aminobutyric Acid-ergic AgonistStart: 93-18-7932btdkmium (AMBIEN) 10 MG tablet 06/10/2020 Active Completed/Discontinued Medications MedicationDrug Class(es)DatesSig (Normalized)Sig (Original)aprepitant 40 mg oral capsule (1 source)Substance P/Neurokinin-1 Receptor AntagonistStart: 10-08-2024 End: 72-42-3705rvpz 1 dose by mouth once40 mg, Oral, ONCE, 1 dose, On Tue10/08/24 at 0730, Pre-opStart: 10-08-2024 End: 51-25-4846kuvn 1 dose by mouth once40 mg, Oral, ONCE, 1 dose, On Tue10/08/24 at 0730, Pre-opcalcium chloride 0.0014 meq/ml / potassium chloride 0.004 meq/ml / sodium chloride 0.103 meq/ml / sodium lactate 0.028 meq/ml injectable solution (3 sources)Start: 12-15-2023 End: 93-84-1317Kuearaixteg, PRN CONTINUOUS, Starting on Melanie 12/15/23 at 0832, Until Melanie 12/15/23 at 0925dexmedetomidine 0.1 mg/ml injectable solution (3 sources)Central alpha-2 Adrenergic AgonistStart: 12-15-2023 End: 58-28-3778Deakwomenil Push, PRN, Starting on Melanie 12/15/23 at 0834, Until Melanie 12/15/23 at 0925, Intra-opdiazePAM 5 mg oral tablet (5 sources)BenzodiazepineStart: 05-29-2023 End: 12-00-4415bqsy 1 tablet by mouth onceDiazepam 5 mg tablet Discontinued 5 MG PO As Directed May 29, 2023 12:00am August 06, 2023 9:27pm 1 hour prior to proceduredoxycycline hyclate 100 mg oral capsule (5 sources)Tetracycline-class DrugStart: 05-29-2023 End: 63-32-1242ynnk 1 capsule by mouth twice dailyDoxycycline Hyclate 100 mg capsule Discontinued 100 MG PO Twice daily May 29, 2023 12:00am August 06, 2023 9:27pm x 10 days, started on 05/28/23fluorouracil 50 mg/ml topical cream (5 sources)Nucleoside Metabolic InhibitorStart: 05-29-2023 End: 91-33-1902Tvqqtkfdjxpx (Efudex) 5 % cream Discontinued 1 APPLIC TOPICAL Twice daily May 29, 2023 12:00am August 06, 2023 9:27pm1 ml glycopyrrolate 0.2 mg/ml injection (3 sources)Start: 12-15-2023 End: 64-46-6021Utsulcalijd, PRN, Starting on Melanie 12/15/23 at 0834, Until Melanie 12/15/23 at 0925, Intra-op1 ml ketorolac tromethamine 30 mg/ml cartridge (3 sources)Nonsteroidal Anti-inflammatory Drug, Cyclooxygenase InhibitorStart: 12-15-2023 End: 29-23-9646Tuihywjxgrh Push, PRN, Starting on Melanie 12/15/23 at 0912, Until Melanie 12/15/23 at 0925midazolam 1 mg/ml injectable solution (3 sources)BenzodiazepineStart: 12-15-2023 End: 09-70-9761Hhakpabixje, PRN, Starting on Melanie 12/15/23 at 0834, Until Melanie 12/15/23 at 0925, Intra-opmoxifloxacin 400 mg oral tablet (4 sources)Quinolone AntimicrobialStart: 06-01-2023 End: 23-79-0335ixqi 1 tablet by mouth once dailyMoxifloxacin 400 [...] mg oral tablet (5 sources)Start: 05-29-2023 End: 85-39-1829rqje 1 tablet by mouth once dailyPrednisone 50 [...] stress disorder; Translations: [Post-traumatic stress disorder, unspecified]Onset: 045225-45-2954HbgvthuInvropdbo-ucyrxfm, conduct, and disruptive behavior disorders (20 sources)Attention deficit hyperactivity disorder; Translations: [Attention- deficit hyperactivity disorder, unspecified type]Onset: ChronicDevelopmental disorders (20 sources)Moderate intellectual disability; Translations: [Moderate intellectual disabilities]Onset: 617120-94-6522QybudafZbexsrzag of lipid metabolism (20 sources)Hypercholesterolemia; Translations: [Pure hypercholesterolemia, unspecified]Onset: 261072-81-3317XvlomtlGoktuoejc of teeth and jaw (20 sources)Chronic periodontitis; Translations: [Chronic periodontitis, unspecified]Onset: 794611-63-6545WapyhcnMosjekcw; convulsions (20 sources)Seizure disorder; Translations: [Epilepsy, unspecified, not intractable, without status epilepticus]Onset: hronic Epilepsy; convulsions (20 sources)Seizure; Translations: [Unspecified convulsions]Onset: 07-14-2023 31-15-5132UtcnugvrZmfauqzajc disorders (11 sources)Gastroesophageal reflux disease; Translations: [Gastro-esophageal reflux disease without esophagitis]Onset: 889050-49-6318NcikbiuDbjkmkfly hypertension (20 sources)Hypertensive disorder; Translations: [Essential (primary) hypertension]Onset: 813040-57-9514PctdzkxWxsjptmlxnthd symptoms and ill- defined conditions (5 sources)Unspecified abnormal findings in urine; Translations: [Other abnormal findings in urine]Onset: 53-61-6672BfadsaybExiiirxb; including migraine (14 sources)Headache; Translations: [Headache]Onset: EpisodicImpulse control disorders, NEC (11 sources)Impulse control disorder; Translations: [Impulse disorder, unspecified]Onset: 905800-11-9694SqxcspaWmpfuujuuhrax mental health disorders (11 sources)Dissociative disorder; Translations: [Dissociative and conversion disorder, unspecified]Onset: 222964-54-3303MoovtifXuop disorders (20 sources)Bipolar disorder; Translations: [Bipolar disorder, unspecified] Onset: 707264-79-1859ItubeuaQlexlbo (4 sources)Onychomycosis; Translations: [Tinea unguium]34-39-9239IyfvjglfMfcvq bone disease and musculoskeletal deformities (3 sources)Exostosis of right foot; Translations: [Other specified disorders of bone, ankle and foot]50-98-7491AmyfmynnZcung connective tissue disease (4 sources)Pain of toe of right foot; Translations: [Pain in right toe(s)] 84-56-3351QrakjumuUfcbc connective tissue disease (6 sources)Pain of toe of left foot; Translations: [Pain in left toe(s)] 41-99-8798TgmywlyvPiqmz connective tissue disease (3 sources)Enthesopathy of lower limb; Translations: [Other enthesopathy of right foot and ankle]13-95-9629LvnotsewPykml connective tissue disease (2 sources)Pain in right foot; Translations: [Pain in right foot]08-07-2024 EpisodicOther gastrointestinal disorders (3 sources)Constipation; Translations: [Constipation, unspecified]08-06-2023 EpisodicOther nutritional; endocrine; and metabolic disorders (1 source)Body mass index 30+ - obesity; Translations: [Body mass index (BMI) 30.0-30.9, adult]02-38-1056RvtdfubYcxlr skin disorders (4 sources)Ingrowing nail; Translations: [Ingrowing nail]42-65-8821Bispxiow Residual codes; unclassified (2 sources)Other specified health status; Translations: [Failure of outpatient treatment]39-71-4937JcrjyjqeYgjc and subcutaneous tissue infections (12 sources)Cellulitis of periorbital region; Translations: [Periorbital cellulitis]17-78-1044OvurudfdJydnctzqbsyl (1 source)Medicare breast and PelvicOnset: 13-97-7567Thwnmtmzfopl (1 source)New PatientOnset: 39-57-5620Fwdwrfjqgowf (1 source)MassOnset: 08-09-2024 Past or Other Problems Problem ClassificationProblemDateDocumented DateEpisodic/ChronicAnxiety disorders (20 sources)Anger reaction; Translations: [Irritability and anger]Onset: 865006-42-0764MaulsnuaDkkezkmev of teeth and jaw (20 sources)Dental caries; Translations: [Dental caries, unspecified]Onset: 838626-37-7699SajegbdyQhfcu and electrolyte disorders (14 sources)Hyponatremia; Translations: [Hypo-osmolality and hyponatremia]Onset: 283025-73-7981PpxzuqptAqlfelbkhgspk and screening for infectious disease (1 source)Encounter for screening for human papillomavirus (HPV); Translations: [ENC SCREENING HUMAN PAPILLOMAVIRUS]Onset: 12-27-9177EmyygmjbUponrpymwbyt breast conditions (20 sources)Pain of breast; Translations: [Lump in right breast]Onset: 904584-03-2997ShvdkfzzFxxgb nutritional; endocrine; and metabolic disorders (20 sources)Developmental delay; Translations: [Unspecified lack of expected normal physiological development in childhood]Onset: EpisodicOther screening for suspected conditions (not mental disorders or infectious disease) (20 sources)Possible ; Translations: [Encounter for test, result unknown]Onset: 429821-73-7511YstlwoibSosos skin disorders (5 sources)Breast changes; Translations: [Changes in skin texture]Onset: 981740-70-7130SzilxjikFkkyl skin disorders (1 source)Changes in skin texture; Translations: [Changes in skin texture]Onset: 94-65-4666WoapjwnsIlqiszae codes; unclassified (20 sources)Disturbance of consciousness; Translations: [Transient alteration of awareness]Onset: [id number] Results Test NameValueInterpretationReference RangeFacilityAnesthesia Postprocedure Evaluationon 76-85-9568Cprmdbwpqbfnc Authentication Interface Message Text Anesthesia Postoperative Assessment: [...] ANESTHESIA NOTABLE EVENTS: No notable events documented.NormalThe [facility] SystemAnesthesia Preprocedure Evaluationon 26-95-0817Lnknoedukbeve Authentication Interface Message Text Attestation signed by [...] decay) Endo (+) obesity (-) diabetes mellitus 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 - negative ROS Neuro/Psych (+) bipolar disorder, [...] discussed with the patient and/or legal customer engagement representative. The risks, benefits and alternatives were reviewed. Questions regarding anesthesia were answered. Patient and/or legal customer engagement representative knows such anesthetics and procedures may be performed by Resident physicians, Certified Anesthesiologist Assistants, or Certified Nurse Anesthetists under the supervision of a physician. The patient /or the patient's legal customer engagement representative agree with the plan for anesthesia. [facility] HospitalAnesthesia [facility] Of [facility] Centeron 10-08-2024 Window Assembler Authentication Interface Message TextPatient taken to PACU. [...] DENTAL RESTORATIONS (09/03/2016) Procedure: DENTAL RESTORATIONS; Surgeon: hBavin Valdovinos DDS; Location: [facility] [place]; Service: Dental CHOLECYSTECTOMY (2009) Per OSH H+P 08/2018 DENTAL RESTORATIONS (09/15/2018) Procedure: DENTAL RESTORATIONS; Surgeon: Og Grant DDS; Location: [facility]; Service: Dental DENTAL RESTORATIONS (07/14/2020) Procedure: DENTAL RESTORATIONS; Surgeon: Og Grant DDS; Location: [facility]; Service: Dental Allergies: Abilify, Amoxicillin, Depakote [valproic acid], Food, Metyrosine, Moban [molindone], Nubain [nalbuphine], Sympathomimetics, and Vicks 44 cough relief [dextromethorphan hbr] Basic Operating Room Facts: Surgeon(s): Og Grant DDS Anesthesiologist: Kedar Moralez MD Mud Temperer: Randi Rico MD; Enio Wells MD DENTAL [...] 09/05/2018 Added automatically from request for surgery [id number] Constipation Per OSH H+P 08/2018 Dental decay 08/26/2016 Added automatically from request for surgery [id number] Developmental delay Per OSH H+P 08/2018 Hormone [...] disease K21.9 Headache R51.9 Posttraumatic stress disorder F43.10[facility] SystemBrief Operative Noteon 72-85-7524Bjnxiqjtfohnm Authentication Interface Message TextBrief Operative Note [facility] OR 3 Migdalia E Stephie 39 year old female Surgical Contact Serial Number: [id number] Preoperative Diagnosis: Pre-op Diagnosis * Caries [K02.9] [...] Posttraumatic stress disorder Procedures: Full mouth xrays [72038] Comprehensive exam [41217] Prophy [61369] Fluoride application [45029] Restorative [91356] Surgical extractions [10472] Surgeon(s): Surgeon(s): Og Grant DDS Staff: Food And Beverage Order Clerk Nurse: Rosanna Monroe RN Dental Resident: Risa Black DDS Anesthesia: General Anesthesiologist: Kedar Moralez MD Mud Temperer: Randi Rico MD; Enio Wells MD Specimen(s): [...] Signed by Risa Black DDS 10/08/2024 9:24 BANNERRemCare Interval H AND P Noteon 10-31-7881Cnpnqnvgpntjh Authentication Interface Message TextH AND P reviewed. [...] anatomically possible Risa Black DDS 10/08/2024 7:15 BANNERRebelMouse SystemOP Noteon 94-92-4148Dtffnqkxwivvh Authentication Interface Message TextOperative Note [facility] OR 3 Migdalia Connelly 39 year old female Surgical Contact Serial Number: [id number] Preoperative Diagnosis: Pre-op Diagnosis * Caries [K02.9] [...] Posttraumatic stress disorder Procedures: Full mouth xrays [60166] Comprehensive exam [98462] Prophy [64702] Fluoride application [69207] Restorative [51809] Surgical extractions [22332] Surgeon(s): Surgeon(s): Og Grant DDS Staff: Food And Beverage Order Clerk Nurse: Rosanna Monroe RN Dental Resident: Risa [...] mg by mouth 2 times a day.NormalThe [facility] SystemProgress Noteson 90-19-4960Aubfowimvsgfk Authentication Interface Message Text----- Tuesday, October 08, 2024 at 9:47:45 AM ----- ----- Provider: Satinder Obrien DDS -- Clinic: [facility] ----- [place] notes, pt is ready for [...] Note Type: OP Note Status: Cosign Needed Swing Grinder: Risa Black DDS (Resident) Cosign Required: Yes Operative Note [facility] OR 3 Migdalia Connelly 39 year old female Surgical Contact Serial Number: [id number] Preoperative Diagnosis: Pre-op Diagnosis * Caries [K02.9] [...] Posttraumatic stress disorder Procedures: Full mouth xrays [56347] Comprehensive exam [57940] Prophy [51536] Fluoride application [63173] Restorative [08927] Surgical extractions [21601] Surgeon(s): Surgeon(s): Og Grant DDS Staff: Food And Beverage Order Clerk Nurse: Baillie, Rosanna, RN Dental Resident: Risa [...] daily. * lo (more content not included)...NormalThe N-of-One SystemURINE HCG-IN OFFICEOrdered By: Artur Sinclair on 94-96-5781DCG ( test) Ql (U)Negative NegativeMetroHealthNegative Internal ControlNegativeNegativeMetroHealthPositive Internal ControlPositivePositiveMetroHealthMetroHealthTelephone Encounteron 77-03-2077Vgtnyyekvadzp Authentication Interface Message TextDr. Chatman made aware that CBC and CMP from 05/03/24 received from [facility] and scanned into [employer]. Addendum: Dr. Chatman states that he has reviewed labs and results are acceptable on 10/04 via secure chat.NormalThe N-of-One SystemH AND P (View-Only)on 72-14-0046Tlktfzgvwlkdb Authentication Interface Message TextBlood pressure 138/85, pulse [...] fever, chills, night sweats, and weight loss NEW ACCOUNTS CLERK: h/o Seizures on AEDs Microadenoma in Pituitary [...] Neck Extension: FROM Mouth (more content not included)...NormalWhite Hospital SystemPatient Instructionson 49-76-2593Sstzghuygxxbd Authentication Interface Message Text RECOMMENDATIONS: Patient was [...] alternative/herbal medication 10 days before surgery Brenden CasonUniversity Hospitals Ahu[facility] SystemProgress Noteson 08-28-2024 Window Assembler Authentication Interface Message TextNurse (LATASHA) was contacted for PAT AND OR Visit scheduled -- confirmed information with nurse , also informed nurse importance of receiving PSE call -- if not received surgery will be canceled ----- Wednesday, August 28, 2024 at 12:25:15 PM ----- ----- Provider: HANNAH Ramírez Dental-Vacuum Forming Machine Operator -- Clinic: [place] -----NormalSelect Medical Cleveland Clinic Rehabilitation Hospital, Edwin ShawUrine Cultureon 32-24-4821Wpvwejdj identified Cx Nom (U)<9,000 colonies/ml mixed bacterial skin contaminants 2 Days PERFORMED BY: [address] [address] PATHOLOGIST POTATO SPOTTER CHARLENE BEDOYA M.D.[facility] Physician GroupComment on above: Performed By: #### CUU #### [place] [address] USAMAMM DIAGNOSTIC BILATERAL W CADon 18-59-6145NQCU DIAGNOSTIC BILATERAL W CADMAMM DIAGNOSTIC BILATERAL W CAD MIGDALIA STEPHIE 1985 [id number], [id number] EXAM: MAMM DIAGNOSTIC BILATERAL W CAD, US [...] MD on 08/09/2024 11:36 AM 1 b [facility]red HealthcareAnesthesia Postprocedure Evaluationon 55-16-3930Xeinbqdyrsrsu Authentication Interface Message TextAnesthesia Postoperative Assessment: Vital [...] home. ANESTHESIA NOTABLE EVENTS: No notable events documented.NormalNationwide Children'S HospitalStadion Money Management SystemAnesthesia Preprocedure Evaluationon 42-37-2032Lfjcjkzhudqlg Authentication Interface Message TextASA: 2 No history of anesthetic complications NPO status: >8 hours Past Medical History and Review of Systems Pulmonary (-) sleep apnea Dental ROS (+) teeth problems Endo 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 (-) not (negative in clinic today) Neuro/Psych [...] discussed with the patient and/or legal customer engagement representative. The risks, benefits and alternatives were reviewed. Questions regarding anesthesia were answered. Patient and/or legal customer engagement representative knows such anesthetics and procedures may be performed by Resident physicians, Certified Anesthesiologist Assistants, or Certified Nurse Anesthetists under the supervision of a physician. The patient /or the patient's legal customer engagement representative agree with the plan for anesthesia. MHPATFORMNormRutland Heights State HospitalStadion Money Management SystemProgress Noteson 69-10-1795Kfehkknbrdtwb Authentication Interface Message Text----- February at 10:34:06 AM ----- ----- Provider: Shelby Frias DMD -- Clinic: [place] ----- PT. WAS SEEN IN [facility] UNDER TWILIGHT SEDATION WITH ANESTHESIA TEAM. Anesthesia diagnosis: Unspecified mental disorder- F09 and Other intellectual disabilities- F78 Dental diagnosis: Dental Caries, unspecified - K02.9 COMPOSITE ANABAPTIST Patient is scheduled for Sabianist on tooth #23 MFL and 24 DFL. Reviewed Medical History. Patient is ready for treatment. Topical Benzocaine gel applied at the injection site for 2 minutes. Administered 2 carpules of Lidocaine, 2% with Epinephrine 1:100,000,. Cotton roll isolation achieved. Decay/existing sikh removed, cavity prepared. Selectively etched enamel with 37% phosphoric acid, rinsed, and blot dried. OptiBond bowles applied and light-cured. Condensed packable composite shade A2 in light cured increments using Mylar strip and wedge. Finished with finishing burs, checked occlusion, verified proximal contacts and sikh was polished. Rinsed and suctioned intraorally, advised [...] ----- Provider: Shelby Frias DMD -- Clinic: [place] -----Clzby Telephone Encounteron 30-98-2163Efdhgsqpfhhwf Authentication Interface Message TextAnesthesia consent obtained by Dr. Koch and scanned into [employer].NormalKettering Health Troy N-of-One SystemPAT Call Historyon 46-07-8938Bdotpocvjkcvd Authentication Interface Message TextTelephone History Migdalia Connelly, [id number] 02/01/2024 Patient was identified by name and date of with Nurse Latasha from [place]. 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 38 year old 190.6 lbs 5' 5 [...] 09/05/2018 Added automatically from request for surgery [id number] Constipation Per OSH H+P 08/2018 Dental decay 08/26/2016 Added automatically from request for surgery [id number] Developmental delay Per OSH H+P 08/2018 Hormone [...] Decay, Dental Caries, Peridontitis, Endo (+) obesity 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 (+) irregular periods Neuro/Psych (+) bipolar disorder, [...] DENTAL RESTORATIONS; Surgeon: Bhavin Valdovinos DDS; Location: [facility] [place]; Service: Dental DENTAL RESTORATIONS N/A 09/15/2018 Procedure: DENTAL RESTORATIONS; Surgeon: Og Grant DDS; Location: [facility] [place]; Service: Dental DENTAL RESTORATIONS Bilateral 07/14/2020 Procedure: DENTAL RESTORATIONS; Surgeon: Og Grant DDS; Location: [facility] [place]; Service: Dental SOCIAL HISTORY: Social History Socioeconomic History Marital status: Single Tobacco Use Smoking status: Never Smokeless tobacco: Never Substance and Sexual Activity Alcohol use: Never Drug use: Never PAIN ASSESSMENT: Severity: 0 Location: N/A LABORATORY DATA: [facility] 10/24/2023 LABS TESTS REVIEWED: CXRay: No Chest [...] 2 MG ta (more content not included)...NormalThe N-of-One SystemAddendum Noteon 42-52-1383Teepbahbdrhxb Authentication Interface Message TextAddendum created 12/15/23 1134 by Orquidea Florez MD Clinical Note SignedNoCenterville N-of-One SystemTranscription Techmed Healthcareation Interface Message TextAddendum created 12/15/23 1026 by Domingo Carrion APRN-CRNA Flowsheet accepted, LDA properties acceptedNoChildren's Hospital for RehabilitationEntrec System Anesthesia Postprocedure Evaluationon 17-61-5356Wdpydurhfkjtk Authentication Interface Message TextAnesthesia Postoperative Assessment: Vital [...] home. ANESTHESIA NOTABLE EVENTS: No notable events documented.[facility] N-of-One SystemAnesthesia Preprocedure Evaluationon 20-09-0945Gddwetsqxkldz Authentication Interface Message TextASA: 2 No history of anesthetic complications PSE status: Had PSE NPO status: >8 hours Past Medical History and Review of Systems (Full ROS completed in PSE) Pulmonary (-) sleep apnea Dental ROS (+) teeth problems Endo 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 (-) not (negative in clinic today) Neuro/Psych [...] discussed with the patient and/or legal customer engagement representative. The risks, benefits and alternatives were reviewed. Questions regarding anesthesia were answered. Patient and/or legal customer engagement representative knows such anesthetics and procedures may be performed by Resident physicians, Certified Anesthesiologist Assistants, or Certified Nurse Anesthetists under the supervision of a physician. The patient /or the patient's legal customer engagement representative agree with the plan for anesthesia. [facility] HospitalAnesthesia Transfer Of [facility] Psychiatric Centeron 12-15-2023 Window Assembler Authentication Interface Message TextPatient recovered by STRINGED INSTRUMENT TUNER in room. Patient is awake, comfortable, and [...] DENTAL RESTORATIONS; Surgeon: Bhavin Valdovinos DDS; Location: [facility] [place]; Service: Dental CHOLECYSTECTOMY (2009) Per OSH H+P 08/2018 DENTAL RESTORATIONS (09/15/2018) Procedure: DENTAL RESTORATIONS; Surgeon: Og Grant DDS; Location: [facility] [place]; Service: Dental DENTAL RESTORATIONS (07/14/2020) Procedure: DENTAL RESTORATIONS; Surgeon: Og Grant DDS; Location: [facility] [place]; Service: Dental Allergies: Abilify, Amoxicillin, Depakote [valproic acid], Food, Metyrosine, Moban [molindone], Nubain [nalbuphine], Sympathomimetics, and Vicks 44 cough relief [dextromethorphan hbr] Basic Operating Room Facts: * No surgeons listed * Anesthesiologist: Orquidea Florez MD STRINGED INSTRUMENT TUNER: Domingo Carrion APRN-STRINGED INSTRUMENT TUNER DENTAL VISIT Intraoperative Events: No acute event [...] of the report was received. Ian Soliz [facility] SystemBlood Attestationon 12-15-2023 Window Assembler Authentication Interface Message TextBlood Attestation: ATTESTATION OF INFORMED CONSENT FOR BLOOD: The transfusion of blood and/or blood components were discussed with the patient and/or legal customer engagement representative. The risks, benefits and alternatives were reviewed. Questions regarding blood transfusions were answered. The patient /or the patient's legal customer engagement representative agree with the plan for transfusion of blood and/or blood components.NormalThe [facility] SystemProgress Noteson 23-90-3703Euylrfnzlqqpw Authentication Interface Message Text----- November at 9:52:24 AM ----- ----- Provider: Orlando Alejandro, Resident -- Clinic: [place] ----- PT WAS SEEN IN [facility] UNDER TWILIGHT SEDATION WITH ANESTHESIA TEAM Anesthesia [...] status of dentition on the charting. COMPOSITE ANABAPTIST Patient is scheduled for Sabianist on tooth #26 surface B5. Topical Benzocaine gel applied at the injection site for 2 minutes. Administered 0.5 carpules of Lidocaine, 2% with Epinephrine 1:100,000,. Isolation achieved. Decay/existing sikh removed, cavity prepared. Selectively etched enamel with 37% phosphoric acid, rinsed, and blot dried. OptiBond bowles applied and light-cured. Condensed packable composite shade A2 in light cured increments. Finished with finishing burs, checked occlusion, verified proximal contacts and sikh was polished. SIMPLE EXTRACTION tooth # 7 [...] ----- Provider: Shelby Frias DMD -- Clinic: [place] -----NormalThe N-of-One System PAT Appt H AND Jaspreet 58-30-7559Huqnelpomebzj Authentication Interface Message Text Attestation signed by [...] Jones MD Pre-Admission Testing Consultation Migdalia Connelly, [id number] 38 year old Female 11/23/2023 Consult placed to [facility] due to significant PMH of HLD, HTN, seizures, moderate intellectual disability. [facility] Triage Risk Score Total Score: 3 2 Patient is on more than 2 antihypertension medications. 1 Patient has history of hyperlipidemia. Migdalia Connelly is scheduled for Dental Sabianist Pre-Op diagnosis of: Dental Carries HISTORY OF PRESENT ILLNESS: Patient is a 38 year old female with a pmh of HLD, HTN, seizures, moderate intellectual disability. Patient is here for pre-admission optimization and education prior to surgery. RECENT ILLNESS: Serious illness or hospitalization within the last six months. No STOP BANG: STOP-BANG Row Name 11/23/23 4438 History of sleep apnea? Yes Snoring No [...] DENTAL RESTORATIONS; Surgeon: Bhavin Valdovinos DDS; Location: [facility] [place]; Service: Dental DENTAL RESTORATIONS N/A 09/15/2018 Procedure: DENTAL RESTORATIONS; Surgeon: Og Grant DDS; Location: [facility]; Service: Dental DENTAL RESTORATIONS Bilateral 07/14/2020 Procedure: DENTAL RESTORATIONS; Surgeon: Og Grant DDS; Location: [facility] [place]; Service: Dental Past Medical History and Review [...] mg by mouth d (more content not included)...NormalWhite Hospital SystemTelephone Encounteron 11-23-2023 Window Assembler Authentication Interface Message TextAnesthesia consent obtained and scanned into [employer]. Scheduled for surgery 12/15/2023.NormalThe [facility] SystemProgress Noteson 89-09-2050Lhghcuqajsowg Authentication Interface Message TextParent/guardian/patient was contacted for PAT AND IV Sedation scheduled -- confirmed information with patient, also informed mom importance of going to PAT appointment -- if missed, IV Sedation will be cancelled, and you will be placed back on wait list 12/15/2023----- Tuesday, November 07, 2023 at 2:17:34 PM ----- ----- Provider: HANNAH Ramírez Dental-Vacuum Forming Machine Operator -- Clinic: [place] -----[facility] SystemTranscription Techmed Healthcareation Interface Message TextParent/guardian/patient was contacted for PAT AND IV Sedation scheduled -- confirmed information with patient, also informed mom importance of going to PAT appointment -- if missed, IV Sedation will be cancelled, and you will be placed back on wait list 12/15/2023----- Tuesday, November 07, 2023 at 2:12:30 PM ----- ----- Provider: HANNAH Ramírez Dental-Vacuum Forming Machine Operator -- Clinic: [place] -----[facility] SystemProess Noteson 56-09-8260Kdsuihwgjonpc Techmed Healthcareation Interface Message Text----- Thursday, October 19, 2023 at 11:01:41 AM ----- ----- Provider: [id number] Veronica, Resident -- Clinic: [place] ----- LIMITED EXAM Patient presents for Emergency [...] consented to treatment today. Pt here with java web application developer to discuss IV sedation as a quicker [...] sedation. Informed both the patient and the java web application developer. Treatment request for IV sedation will be sent for the patient. Next Visit: IV sedation and appropriate treatment. ----- Signed on Thursday, October 19, 2023 at 1:27:08 PM ----- ----- Provider: Satinder Obrien DDS -- Clinic: [place] -----NormalThe [facility] Alanine aminotransferase [Enzymatic activity/volume] in Serum or PlasmaOrdered By: Titi Terry on 39-01-7512DTU [Catalytic activity/Vol]25 U/L7-52 [facility] HospitalAlbumin [Mass/volume] in Serum or Plasma by Bromocresol green (BCG) dye binding methoOrdered By: Titi Terry on 67-75-4404Sedjlfs BCG dye [Mass/Vol]4.0 g/dL3.5-5.7FClermont County HospitalAlkaline phosphatase [Enzymatic activity/volume] in Serum or PlasmaOrdered By: Titi Terry on 07-64-2153TRG [Catalytic activity/Vol]32 U/L34-104 [facility] HospitalAspartate aminotransferase [Enzymatic activity/volume] in Serum or PlasmaOrdered By: Titi Terry on 39-18-4632FQQ [Catalytic activity/Vol]24 U/Y47-60WivvviuiwMercy Health Clermont HospitalBacteria [Presence] in Urine by AutomatedOrdered By: HEBERT SILVA on 57-42-9849Ribluhmw Auto Ql (U)2+ [HPF]None SeenMercy Health Clermont HospitalBasophils Auto (Bld) [#/Vol]Ordered By: Titi Terry on 71-01-0066Jvwbjkcwo (Bld) [#/Vol] 0.0 10*3/uL0.0-0.2FClermont County HospitalBasophils/100 WBC Auto (Bld) Ordered By: Titi Terry on 54-35-8897Avtwtonqg/100 WBC (Bld)0.3 %.[facility] HospitalBilirubin Test strip Ql (U)Ordered By: HEBERT TEMP on 62-45-9633Djajebpju Ql (U)NegativeNegativeMercy Health Clermont Hospital Bilirubin.direct [Mass/volume] in Serum or PlasmaOrdered By: Titi Terry on 71-55-4009Xqnspgfsm.direct [Mass/Vol]0.10 mg/dL0.03-0.18FClermont County HospitalBilirubin.total [Mass/volume] in Serum or PlasmaOrdered By: Titi Terry on 24-38-5861Rohjqsnni [Mass/Vol]0.3 mg/dL0.3-1.0[facility] HospitalCOVID CepheidOrdered By: Titi Terry on 08-06-2023 SARS-CoV-2 (COVID-19) Ab IA QlNegativeNegProMedica Bay Park Hospital Comment on above:This is a duplicate Cepheid Xpert Xpress CoV-2/Flu/RSV Plus RNA by RT-PCR result to be used for statistical tracking purpose only.SARS-CoV-2 (COVID-19) RNA ROSENDO+probe Ql (Unsp spec)[facility] HospitalCalcium [Mass/volume] in Serum or PlasmaOrdered By: Titi Terry on 08-06-2023 Calcium [Mass/Vol]8.8 mg/dL8.6-10.3FClermont County HospitalCarbon dioxide, total [Moles/volume] in Serum or PlasmaOrdered By: Titi Terry on 55-52-4787WK7 [Moles/Vol]22.4 mmol/L21.0-31.0[facility] Chloride [Moles/volume] in Serum or PlasmaOrdered By: Titi Terry on 09-50-4837Hceuwyxq [Moles/Vol]99 mmol/M33-961RofojazcvMercy Health Clermont Hospital Color Auto (U)Ordered By: PROVIDER TEMP on 38-19-1497Wphqe (U)YellowYellow [facility] HospitalCreatinine [Mass/volume] in Serum or Plasma Ordered By: Titi Terry on 74-90-9471Vsjtwiugtt [Mass/Vol]0.56 mg/dL 0.60-1.20[facility] HospitalEosinophils Auto (Bld) [#/Vol]Ordered By: Titi Terry on 85-75-1722Uekspjhbakq (Bld) [#/Vol]0.0 10*3/uL0.0-0.45 [facility] HospitalEosinophils/100 WBC Auto (Bld)Ordered By: Titi Terry on 70-92-4473Sqoprqkijjt/100 WBC (Bld)0.3 %.[facility] HospitalEpithelial cells.non-squamous [#/area] in Urine sediment by Automated countOrdered By: PROVIDER TEMP on 68-99-4177Vhryqvsiel cells.non- squamous Auto (Urine sed) [#/Area]1-2 [HPF]None SeenMercy Health Clermont HospitalEpithelial cells.squamous [#/area] in Urine sediment by Automated count Ordered By: PROVIDER TEMP on 40-06-9220Kcbjsgwdbr cells.squamous Auto (Urine sed) [#/Area]10-19 [HPF]0-2FClermont County HospitalErythrocyte distribution width Auto (RBC) [Ratio]Ordered By: Titi Terry on 08-06-2023 Erythrocyte distribution width (RBC) [Ratio]13.0 %11.9-15.3FClermont County HospitalErythrocytes [#/area] in Urine sediment by Automated countOrdered By: PROVIDER TEMP on 72-78-9879UKC Auto (Urine sed) [#/Area]5-9 [HPF]0-4 [facility] HospitalGlobulin Calc (S) [Mass/Vol]Ordered By: Titi Terry on 31-33-8562Ghlmevxu (S) [Mass/Vol]2.9 g/dLMercy Health Clermont HospitalGlucose [Mass/volume] in Serum or PlasmaOrdered By: Titi Terry on 51-14-6440Ugoqgco [Mass/Vol]116 mg/eF81-168YnrpmhgvjMercy Health Clermont Hospital Comment on above:ADA recommended reference rangeRandom Glucose Reference Range is dependent on time and content of last meal. Glucose of more than 200 mg/dL in a nonstressed, ambulatory subject supports the diagnosisof Diabetes Mellitus. Glucose [Mass/volume] in Urine by Test stripOrdered By: PROVIDER TEMP on 53-03-9647Frdxftw Test strip (U) [Mass/Vol]Normal mg/dLNormalMercy Health Clermont HospitalHematocrit Auto (Bld) [Volume fraction]Ordered By: Titi Terry on 55-48-1045Uoaizlnkrc (Bld) [Volume fraction]32.9 %34.0-46.4FClermont County HospitalHemoglobin Test strip Ql (U)Ordered By: PROVIDER TEMP on 44-44-6352Depxyzseqz Ql (U)NegativeNegativeMercy Health Clermont Hospital Hemoglobin [Mass/volume] in BloodOrdered By: Titi Terry on 08-06-2023 Hemoglobin (Bld) [Mass/Vol]11.4 g/dL11.8-15.4FClermont County Hospital Hyaline casts [#/area] in Urine sediment by Automated countOrdered By: PROVIDER TEM on 26-05-0025Xchyapg casts Auto (Urine sed) [#/Area]None [LPF]0-8[facility] HospitalKetones Test strip Ql (U)Ordered By: PROVIDER TEMP on 20-42-6893Kgtzpwz Ql (U)NegativeNegativeMercy Health Clerm[facility] Hospital Leukocyte esterase [Presence] in Urine by Test stripOrdered By: PROVIDER TEMP on 29-42-2790Whyyxqwhj esterase Test strip Ql (U)2+NegativeMercy Health Clermont HospitalLeukocytes [#/area] in Urine sediment by Automated countOrdered By: PROVIDER TEMP on 96-02-4748VSB Auto (Urine sed) [#/Area]10-19 [HPF]0-4 [facility] HospitalLeukocytes [#/volume] corrected for nucleated erythrocytes in Blood by Automated counOrdered By: Titi Terry on 74-82-1905PJM corrected for nucl RBC Auto (Bld) [#/Vol]9.0 10*3/uL3.8-11.6 [facility] HospitalLipase [Enzymatic activity/volume] in Serum or PlasmaOrdered By: Titi Terry on 17-92-7737Bmrqlb [Catalytic activity/Vol] 25.0 U/L11.0-82.0[facility] HospitalLymphocytes Auto (Bld) [#/Vol] Ordered By: Titi Terry on 59-97-9731Gbdvobfnrqe (Bld) [#/Vol]0.6 10*3/uL 1.00-4.8[facility] HospitalLymphocytes/100 WBC Auto (Bld)Ordered By: Titi Terry on 65-37-0090Uufxywoshdt/100 WBC (Bld)6.2 %.[facility] Auto (RBC) [Entitic mass]Ordered By: Titi Terry on 86-08-5010ZOX (RBC) [Entitic mass]32.0 pg24.7-34.3FOhioHealthHC Auto (RBC) [Mass/Vol]Ordered By: Titi Terry on 11-88-4976TJJG (RBC) [Mass/Vol]34.8 g/dL32.0-35.0[facility] HospitalMCV Auto (RBC) [Entitic vol]Ordered By: Titi Terry on 02-65-8148YJK (RBC) [Entitic vol]92.0 kV49-332ZwguznrzbMercy Health Clermont HospitalMonocyte distribution width [Entitic volume] in Blood by AutomatedOrdered By: Titi Terry on 08-06-2023 Monocyte distribution width Auto (Bld) [Entitic vol]28.85 %0.00-20.00[facility] HospitalComment on above:For adults in ED, MDW > 20.0 may be associated with a higher risk of sepsis during the first 12 hrs of hospital admissionMonocytes Auto (Bld) [#/Vol]Ordered By: Titi Terry on 08-06-2023 Monocytes (Bld) [#/Vol]0.4 10*3/uL0.0-0.8[facility] Monocytes/100 WBC Auto (Bld)Ordered By: Titi Terry on 08-06-2023 Monocytes/100 WBC (Bld)4.2 %.[facility] HospitalMucus [Presence] in Urine by AutomatedOrdered By: PROVIDER TEMP on 03-17-4835Xuxdr Auto Ql (U) Rare [LPF][facility] HospitalNeutrophils Auto (Bld) [#/Vol]Ordered By: Titi Terry on 41-72-8398Kaqmmuccvmd (Bld) [#/Vol]8.0 10*3/uL1.8-7.7 [facility] HospitalNeutrophils/100 WBC Auto (Bld)Ordered By: Titi Terry on 57-51-7293Vnhobojdkjl/100 WBC (Bld)89.0 %.[facility] HospitalNitrite Test strip Ql (U)Ordered By: PROVIDER TEMP on 08-06-2023 Nitrite Ql (U)NegativeNegativeMercy Health Clermont HospitalNo Panel InformationOrdered By: Titi Terry on 53-89-8951Lkfhkkbso GFR (CKD-EPI)> 60.0 mL/MinMercy Health Clermont HospitalPharmacy Creatinine Clearance (Chem 142.49[facility] HospitalNucleated erythrocytes [Presence] in Blood by Automated countOrdered By: Titi Terry on 95-29-3701Sypluppty RBC Auto Ql (Bld)0.0 /100{WBC}0-0.5FClermont County HospitalPlatelet mean volume Auto (Bld) [Entitic vol]Ordered By: Titi Terry on 08-06-2023 Platelet mean volume (Bld) [Entitic vol]6.8 fL6.3-10.7FClermont County HospitalPlatelets Auto (Bld) [#/Vol]Ordered By: Titi Terry on 08-06-2023 Platelets (Bld) [#/Vol]294 10*3/rO768-345PogwpojqbMercy Health Clermont Hospital Potassium [Moles/volume] in Serum or PlasmaOrdered By: Titi Terry on 65-79-9869Nutoqayno [Moles/Vol]3.7 mmol/L3.5-5.1[facility] CenterProtein Test strip (U) [Mass/Vol]Ordered By: PROVIDER TEMP on 08-06-2023 Protein (U) [Mass/Vol]NegativeNegativeMercy Health Clermont HospitalProtein [Mass/volume] in Serum or PlasmaOrdered By: Titi Terry on 08-06-2023 Protein [Mass/Vol]6.9 g/dL6.4-8.9[facility] HospitalRBC Auto (Bld) [#/Vol]Ordered By: Titi Terry on 60-38-1407AUP (Bld) [#/Vol]3.57 10*6/uL 3.60-5.00[facility] Memorialerum or plasma albumin/globulin mass ratioOrdered By: Titi Terry on 83-11-9814Tywssls/Globulin [Mass ratio]1.4 {ratio}[facility] Memorialerum or plasma anion gap determination Ordered By: Titi Terry on 54-97-3182Lgyqo gap [Moles/Vol]13.3 mmol/L 6.0-15.0[facility] Memorialerum or plasma non-glucuronidated bilirubin measurement (mass/volume)Ordered By: Titi Terry on 08-06-2023 Bilirubin.indirect [Mass/Vol]0.2 mg/dLKettering Health Greene Memorialodium [Moles/volume] in Serum or PlasmaOrdered By: Titi Terry on 08-06-2023 Sodium [Moles/Vol]131 mmol/I542-103LbetbeazxKettering Health Greene Memorialpecific gravity Test strip (U) [Rel density]Ordered By: PROVIDER TEMP on 08-06-2023 Specific gravity (U) [Rel density]1.0221.001-1.030[facility] HospitalUrea nitrogen [Mass/volume] in Serum or PlasmaOrdered By: Titi Terry on 12-44-8836Khpv nitrogen [Mass/Vol]6 mg/dL7-25[facility] HospitalUrine appearanceOrdered By: PROVIDER TEMP on 45-94-9682Yvratjlsvj (U) CloudyClearFClermont County HospitalUrobilinogen Test strip (U) [Mass/Vol]Ordered By: PROVIDER TEMP on 83-39-0877Zdpxtqrihwxz (U) [Mass/Vol] Normal mg/dLNormalMercy Health Clermont HospitalWBC Auto (Bld) [#/Vol]Ordered By: Titi Terry on 01-89-1895THI (Bld) [#/Vol]9.0 10*3/uL3.8-11.6FClermont County HospitalpH Test strip (U)Ordered By: HEBERT TEMP on 08-06-2023 pH (U)6.5 [pH]5.0-9.0[facility] HospitalAlanine aminotransferase [Enzymatic activity/volume] in Serum or PlasmaOrdered By: Rico Romero on 92-23-0994EKJ [Catalytic activity/Vol]15 U/L7-52[facility] HospitalAlbumin [Mass/volume] in Serum or Plasma by Bromocresol green (BCG) dye binding methoOrdered By: Rico Romero on 81-65-3181Kptqkur BCG dye [Mass/Vol]3.5 g/dL3.5-5.7FClermont County HospitalAlkaline phosphatase [Enzymatic activity/volume] in Serum or PlasmaOrdered By: Rico Romero on 57-07-8451HYP [Catalytic activity/Vol]42 U/Q29-858XfzyckxtaMercy Health Clermont HospitalAspartate aminotransferase [Enzymatic activity/volume] in Serum or Plasma Ordered By: Rico Romero on 77-24-6998LNI [Catalytic activity/Vol]13 U/L 13-39[facility] HospitalBand form neutrophils/100 WBC Manual cnt (Bld)Ordered By: Arvind Regan on 95-18-6115Jydv form neutrophils/100 WBC (Bld)5 %0-5FClermont County HospitalBasophils Auto (Bld) [#/Vol]Ordered By: Arvind Regan on 24-90-5279Zwxmyfipl (Bld) [#/Vol]N/[facility] SystemBasophils/100 WBC Auto (Bld)Ordered By: Arvind Regan on 06-01-2023 Basophils/100 WBC (Bld)N/[facility] SystemBilirubin.total [Mass/volume] in Serum or PlasmaOrdered By: Rico Romero on 06-01-2023 Bilirubin [Mass/Vol]0.2 mg/dL0.3-1.0[facility] HospitalC reactive protein [Mass/volume] in Serum or PlasmaOrdered By: Rico Romero on 46-89-3428RWN [Mass/Vol]1.1 mg/dL0.0-0.5FClermont County HospitalCalcium [Mass/volume] in Serum or PlasmaOrdered By: Rico Romero on 06-01-2023 Calcium [Mass/Vol]8.9 mg/dL8.6-10.3FClermont County HospitalCarbon dioxide, total [Moles/volume] in Serum or PlasmaOrdered By: Rico Romero on 61-76-7981TV2 [Moles/Vol]26.6 mmol/L21.0-31.0[facility] HospitalChloride [Moles/volume] in Serum or PlasmaOrdered By: Rico Romero on 25-33-1848Asixnqvl [Moles/Vol]102 mmol/B64-796NgfsekdguMercy Health Clermont HospitalCreatinine [Mass/volume] in Serum or PlasmaOrdered By: Rico Romero on 54-98-5008Hxvveimapv [Mass/Vol]0.43 mg/dL0.60-1.20[facility] HospitalEosinophils Auto (Bld) [#/Vol]Ordered By: Arvind Murdocksein on 35-15-4258Tadhquijilq (Bld) [#/Vol]N/[facility] Eosinophils/100 WBC Auto (Bld)Ordered By: Arvind Jass on 06-01-2023 Eosinophils/100 WBC (Bld)N/[facility] SystemEosinophils/100 WBC Manual cnt (Bld)Ordered By: Arvind Jass on 12-14-6300Qmfdwccfolp/100 WBC (Bld)4 %1-3FClermont County HospitalErythrocyte distribution width Auto (RBC) [Ratio]Ordered By: Arvind Murdocksein on 57-57-0345Wiphcsgwwti distribution width (RBC) [Ratio]13.7 %11.9-15.3FClermont County HospitalErythrocyte sedimentation rate by Photometric methodOrdered By: Rico Romero on 83-85-9761EUK Photometric method (Bld) [Velocity]30 mm/hr0-19[facility] HospitalGlobulin Calc (S) [Mass/Vol]Ordered By: Rico Romero on 58-59-0935Cvknvszk (S) [Mass/Vol]3.0 g/dLMercy Health Clermont Hospital Glucose [Mass/volume] in Serum or PlasmaOrdered By: Rico Romero on 43-08-2287Hnnareq [Mass/Vol]107 mg/yI67-686HdogaifjlMercy Health Clermont Hospital Comment on above:ADA recommended reference rangeRandom Glucose Reference Range is dependent on time and content of last meal. Glucose of more than 200 mg/dL in a nonstressed, ambulatory subject supports the diagnosisof Diabetes Mellitus. Hematocrit Auto (Bld) [Volume fraction]Ordered By: Arvind Regan on 06-01-2023 Hematocrit (Bld) [Volume fraction]35.5 %34.0-46.4FClermont County HospitalHemoglobin [Mass/volume] in BloodOrdered By: Arvind Regan on 06-01-2023 Hemoglobin (Bld) [Mass/Vol]11.7 g/dL11.8-15.4FClermont County Hospital Leukocytes [#/volume] corrected for nucleated erythrocytes in Blood by Automated counOrdered By: Arvind Regan on 39-45-6501UQJ corrected for nucl RBC Auto (Bld) [#/Vol]10.1 10*3/uL3.8-11.6FClermont County HospitalLymphocytes Auto (Bld) [#/Vol]Ordered By: Arvind Regan on 44-50-6167Mnnzvgntsxm (Bld) [#/Vol]N/[facility] SystemLymphocytes/100 WBC Auto (Bld)Ordered By: Arvind Regan on 91-55-8731Peehvjkryau/100 WBC (Bld)N/[facility] SystemLymphocytes/100 WBC Manual cnt (Bld)Ordered By: Arvind Regan on 04-88-8616Piaynfkoqza/100 WBC (Bld)24 %18-42[facility] CenterH Auto (RBC) [Entitic mass]Ordered By: Yaneyda Jass on 50-94-1191NXS (RBC) [Entitic mass]31.0 pg24.7-34.3FClermont County HospitalMCHC Auto (RBC) [Mass/Vol]Ordered By: Arvind Jass on 36-68-3250TWXW (RBC) [Mass/Vol]33.0 g/dL 32.0-35.0[facility] HospitalMCV Auto (RBC) [Entitic vol]Ordered By: Arvind Murdocksein on 06-18-5100DCF (RBC) [Entitic vol]93.9 xF08-414NoqhgagffMercy Health Clermont HospitalMonocytes Auto (Bld) [#/Vol]Ordered By: Arvind Murdocksein on 17-01-2080Twzhmzrwb (Bld) [#/Vol]N/[facility] Monocytes/100 WBC Auto (Bld)Ordered By: Arvind Murdocksein on 75-30-1060Ggmvgajdi/100 WBC (Bld)N/[facility] SystemMonocytes/100 WBC Manual cnt (Bld) Ordered By: Arvind Jass on 04-70-0169Maxywrmvj/100 WBC (Bld)6 %2-11[facility] HospitalMyelocytes/100 WBC Manual cnt (Bld)Ordered By: Arvind Murdocksein on 18-50-0392Fjyoqcpwpi/100 WBC (Bld)11 %0-0[facility] HospitalNeutrophils Auto (Bld) [#/Vol]Ordered By: Arvind Murdocksein on 06-01-2023 Neutrophils (Bld) [#/Vol]N/[facility] SystemNeutrophils/100 WBC Auto (Bld)Ordered By: neyda Murdocksein on 62-70-3518Nlketameqih/100 WBC (Bld)N/A [facility] HospitalNo Panel InformationOrdered By: Rico Romero on 15-97-5732Buitryllv GFR (CKD-EPI)> 60.0 mL/MinMercy Health Clermont HospitalPharmacy Creatinine Clearance (Ucdo608.30[facility] HospitalNucleated erythrocytes [Presence] in Blood by Automated count Ordered By: Arvind Regan on 64-92-8009Bpxoprxpr RBC Auto Ql (Bld)N/AFClermont County HospitalPlatelet adequacy [Presence] in Blood by Light microscopy Ordered By: Arvind Regan on 99-12-2012Whntdkrkz LM Ql (Bld)IncreasedNormal [facility] HospitalPlatelet mean volume Auto (Bld) [Entitic vol] Ordered By: Arvind Poncein on 12-18-6198Bzbqbrhm mean volume (Bld) [Entitic vol] 6.1 fL6.3-10.7FClermont County HospitalPlatelet morphology finding [Identifier] in BloodOrdered By: Arvind Regan on 19-34-9843Wqobjbsa morphology finding Nom (Bld)NormalNormOhioHealth Hardin Memorial HospitalPlatelets Auto (Bld) [#/Vol]Ordered By: Arvind Regan on 53-98-1810Rtgcbacgq (Bld) [#/Vol]456 10*3/nQ823-321GegkbjbzhMercy Health Clermont HospitalPotassium [Moles/volume] in Serum or PlasmaOrdered By: Rico Romero on 60-81-4016Buzxsqacl [Moles/Vol]4.3 mmol/L3.5-5.1FClermont County HospitalProtein [Mass/volume] in Serum or PlasmaOrdered By: Rico Romero on 01-54-5341Iptrged [Mass/Vol]6.5 g/dL 6.4-8.9[facility] HospitalRB Auto (Bld) [#/Vol]Ordered By: Arvind Regan on 10-51-5993TNC (Bld) [#/Vol]3.77 10*6/uL3.60-5.00[facility] morphologyOrdered By: Arvind Regan on 35-44-8299ZQH morphology finding Nom (Bld)NormalNoTrinity Health System Segmented neutrophils/100 WBC Manual cnt (Bld)Ordered By: Arvind Regan on 52-81-6638Mylzkngou neutrophils/100 WBC (Bld)51 %50-70[facility] Memorialerum or plasma albumin/globulin mass ratioOrdered By: Rico Romero on 04-38-9612Dkitxqp/Globulin [Mass ratio]1.2 {ratio}[facility] Memorialerum or plasma anion gap determinationOrdered By: Rico Romero on 93-60-9408Lwrls gap [Moles/Vol]11.7 mmol/L6.0-15.0 [facility] Memorialodium [Moles/volume] in Serum or PlasmaOrdered By: Rico Romero on 65-42-1404Tyvvrt [Moles/Vol]136 mmol/S113-438 [facility] HospitalUrea nitrogen [Mass/volume] in Serum or Plasma Ordered By: Rico Romero on 81-81-1509Lqtq nitrogen [Mass/Vol]9 mg/dL 7-25[facility] HospitalWBC Auto (Bld) [#/Vol]Ordered By: Arvind Regan on 46-35-0208FRR (Bld) [#/Vol]10.1 10*3/uL3.8-11.6FClermont County HospitalLactate [Moles/volume] in Serum or PlasmaOrdered By: Anamaria Benton on 50-48-5298Blziufm [Moles/Vol]1.4 mmol/L0.5-2.2FClermont County HospitalMetamyelocytes/100 WBC Manual cnt (Bld)Ordered By: Arvind Regan on 79-72-2711Ficuuvrdpslcbq/100 WBC (Bld)8 %0-0[facility] HospitalNo Panel InformationOrdered By: Arvind Regan on 95-85-8952Gvrsoe for Pathologist ReviewOrdered path reviewMercy Health Clermont HospitalPolychromasia [Presence] in Blood by Light microscopyOrdered By: Arvind Regan on 05-31-2023 Polychromasia LM Ql (Bld)SlightMercy Health Cl[facility]ont Hospital Promyelocytes/100 WBC Manual cnt (Bld)Ordered By: Arvind Regan on 05-31-2023 Promyelocytes/100 WBC (Bld)1 %0-0[facility] Memorialerum or plasma trough vancomycin levelOrdered By: Arvind Regan on 10-86-7568Taekrrtxyl trough [Mass/Vol]7.4 ug/mL10.0-20.0[facility] HospitalComment on above:Last dose: -Basophils/100 WBC Manual cnt (Bld)Ordered By: Arvind Regan on 19-61-7972Gqwfuboet/100 WBC (Bld)0 %0-2FClermont County Hospital Magnesium [Mass/volume] in Serum or PlasmaOrdered By: Arvind Regan on 10-05-7953Qyymvfixd [Mass/Vol]1.8 mg/dL1.9-2.7FClermont County Hospital Vancomycin [Mass/volume] in Serum or Plasma --peakOrdered By: Arvind Regan on 38-88-5565Qdzzbelrqe peak [Mass/Vol]14.1 ug/mL20.0-40.0[facility] HospitalComment on above:Last dose: -Anisocytosis LM Ql (Bld)Ordered By: Venita Amanda on 23-10-3818Lsfnjyqykmmf Ql (Bld)SlightMercy Health Clermont HospitalBacterial blood cultureOrdered By: Venita Amanda on 05-29-2023 Bacteria identified Cx Nom (Bld)NO GROWTH 5 DAYSMercy Health Clermont HospitalBacteria identified Cx Nom (Bld)NO GROWTH 5 DAYSMercy Health Clermont HospitalBand form neutrophils/100 WBC Manual cnt (Bld)Ordered By: Venita Amanda on 48-19-7703Ygrd form neutrophils/100 WBC (Bld)1 %0-5FClermont County HospitalBasophils Auto (Bld) [#/Vol]Ordered By: Venita Amanda on 77-17-9354Prlsbmucb (Bld) [#/Vol]NHolzer Hospital Basophils/100 WBC Auto (Bld)Ordered By: Venita Amanda on 05-29-2023 Basophils/100 WBC (Bld)N/[facility] SystemCalcium [Mass/volume] in Serum or PlasmaOrdered By: Venita Amanda on 96-76-7553Fbbcmyz [Mass/Vol] 9.0 mg/dL8.6-10.3FClermont County HospitalCarbon dioxide, total [Moles/volume] in Serum or PlasmaOrdered By: Venita Amanda on 70-19-1762QQ9 [Moles/Vol]24.6 mmol/L21.0-31.0[facility] HospitalChloride [Moles/volume] in Serum or PlasmaOrdered By: Venita Amanda on 05-29-2023 Chloride [Moles/Vol]99 mmol/S29-270LwuabjeoqMercy Health Clermont HospitalCreatinine [Mass/volume] in Serum or PlasmaOrdered By: Venita Amanda on 05-29-2023 Creatinine [Mass/Vol]0.55 mg/dL0.60-1.20[facility] Eosinophils Auto (Bld) [#/Vol]Ordered By: Venita Amanda on 05-29-2023 Eosinophils (Bld) [#/Vol]N/AFClermont County HospitalEosinophils/100 WBC Auto (Bld)Ordered By: Venita Amanda on 91-92-5820Aepknqqylbu/100 WBC (Bld)N/A [facility] HospitalErythrocyte distribution width Auto (RBC) [Ratio]Ordered By: Venita Amanda on 52-05-9508Nldmomuesfc distribution width (RBC) [Ratio]13.7 %11.9-15.3FClermont County HospitalGlucose [Mass/volume] in Serum or PlasmaOrdered By: Venita Amanda on 32-14-0016Zdiserg [Mass/Vol]163 mg/jE97-177AqmwfijyvMercy Health Clermont HospitalComment on above:ADA recommended reference rangeRandom Glucose Reference Range is dependent on time and content of last meal. Glucose of more than 200 mg/dL in a nonstressed, ambulatory subject supports the diagnosisof Diabetes Mellitus.Hematocrit Auto (Bld) [Volume fraction]Ordered By: Venita Amanda on 65-26-9063Xqvstymrcd (Bld) [Volume fraction]35.6 %34.0-46.4FClermont County HospitalHemoglobin [Mass/volume] in BloodOrdered By: Venita Amanda on 85-65-1921Piscvazjyo (Bld) [Mass/Vol]11.8 g/dL11.8-15.4FClermont County HospitalHypochromia LM Ql (Bld)Ordered By: Venita Amanda on 92-75-5874Glhbjjamhxy Ql (Bld)Slight [facility] HospitalLactate [Moles/volume] in Serum or Plasma Ordered By: Venita Amanda on 31-78-5222Bmakfnj [Moles/Vol]3.0 mmol/L0.5-2.2 [facility] HospitalComment on above:Critical valueresult calledat 1423 on 05/29/23--- 05/29/23 1424 ---Lactic previously reported as: 3.0 *H mmol/LLeukocytes [#/volume] corrected for nucleated erythrocytes in Blood by Automated counOrdered By: Venita Amanda on 67-77-7006DOU corrected for nucl RBC Auto (Bld) [#/Vol]8.7 10*3/uL3.8-11.6FClermont County Hospital Lymphocytes Auto (Bld) [#/Vol]Ordered By: Venita Amanda on 05-29-2023 Lymphocytes (Bld) [#/Vol]N/AFClermont County HospitalLymphocytes/100 WBC Auto (Bld)Ordered By: Venita Amanda on 01-72-2833Bfdiyodstzt/100 WBC (Bld)N/A [facility] HospitalLymphocytes/100 WBC Manual cnt (Bld)Ordered By: Venita Amanda on 60-06-9824Xisnkrnzfld/100 WBC (Bld)23 %18-42[facility] Auto (RBC) [Entitic mass]Ordered By: Venita Amanda on 17-59-6559VYL (RBC) [Entitic mass]31.0 pg24.7-34.3FClermont County HospitalMCHC Auto (RBC) [Mass/Vol]Ordered By: Venita Amanda on 80-96-5144GPZB (RBC) [Mass/Vol]33.2 g/dL32.0-35.0[facility] CenterV Auto (RBC) [Entitic vol]Ordered By: Venita Amanda on 48-96-3453EFB (RBC) [Entitic vol]93.2 dX18-674GhxhaugklMercy Health Clermont HospitalMetamyelocytes/100 WBC Manual cnt (Bld)Ordered By: Venita Amanda on 69-06-5639Lsbbaqusoyoerg/100 WBC (Bld)4 %0-0[facility] HospitalMonocyte distribution width [Entitic volume] in Blood by AutomatedOrdered By: Venita Amanda on 59-09-1315Yzfdmzfj distribution width Auto (Bld) [Entitic vol]18.14 %0.00-20.00[facility] HospitalMonocytes Auto (Bld) [#/Vol]Ordered By: Venita Amanda on 52-32-4329Munehydkx (Bld) [#/Vol]N/[facility] Monocytes/100 WBC Auto (Bld)Ordered By: Venita Amanda on 05-29-2023 Monocytes/100 WBC (Bld)N/[facility] SystemMonocytes/100 WBC Manual cnt (Bld)Ordered By: Venita Amanda on 47-48-2153Lokkmzkom/100 WBC (Bld) 1 %2-11[facility] HospitalMyelocytes/100 WBC Manual cnt (Bld) Ordered By: Venita Amanda on 10-28-8061Xjrngwebnw/100 WBC (Bld)12 %0-0 [facility] HospitalNeutrophils Auto (Bld) [#/Vol]Ordered By: Venita Amanda on 63-99-7387Rskweekbhgq (Bld) [#/Vol]N/[facility] SystemNeutrophils/100 WBC Auto (Bld)Ordered By: Venita mAanda on 53-72-6533Bezocqrblzn/100 WBC (Bld)N/[facility] SystemNo Panel InformationOrdered By: Venita Amanda on 38-64-6188Doaiaeaan GFR (CKD-EPI)> 60.0 mL/MinMercy Health Clermont HospitalPharmacy Creatinine Clearance (Chem 149.21[facility] Memoriallides for Pathologist ReviewOrdered path reviewMercy Health Clermont HospitalNucleated erythrocytes [Presence] in Blood by Automated countOrdered By: Venita Amanda on 16-15-7621Rqaxeeepa RBC Auto Ql (Bld)N/AFClermont County HospitalPlatelet adequacy [Presence] in Blood by Light microscopyOrdered By: Venita Amanda on 09-71-8404Qyldguhrb LM Ql (Bld)NormalNoTrinity Health SystemPlatelet mean volume Auto (Bld) [Entitic vol]Ordered By: Venita Amanda on 69-96-1483Akjpyjzu mean volume (Bld) [Entitic vol]6.4 fL6.3-10.7FClermont County HospitalPlatelet morphology finding [Identifier] in BloodOrdered By: Venita Amanda on 59-46-8607Cqhtvmlh morphology finding Nom (Bld)NormalNormOhioHealth Hardin Memorial HospitalPlatelets Auto (Bld) [#/Vol]Ordered By: Venita Amanda on 52-33-5282Wxypmbyyk (Bld) [#/Vol]403 10*3/hT388-860KrtqrkjpzMercy Health Clermont HospitalPolychromasia [Presence] in Blood by Light microscopyOrdered By: Venita Amanda on 03-31-5366Ajzucmyeemrcl LM Ql (Bld)SlightMercy Health Clermont HospitalPotassium [Moles/volume] in Serum or PlasmaOrdered By: Venita Amanda on 78-40-7497Atynbphbi [Moles/Vol]4.0 mmol/L3.5-5.1FClermont County HospitalRBC Auto (Bld) [#/Vol]Ordered By: Venita Amanda on 48-16-7644BGZ (Bld) [#/Vol]3.82 10*6/uL3.60-5.00[facility] HospitalRB morphology Ordered By: Venita Amanda on 34-46-5930QYE morphology finding Nom (Bld)N/A [facility] Memorialegmented neutrophils/100 WBC Manual cnt (Bld) Ordered By: Venita Amanda on 40-44-3657Gxlwqjvmf neutrophils/100 WBC (Bld)59 % 50-70[facility] Memorialerum or plasma anion gap determination Ordered By: Venita Amanda on 56-63-5464Tqmxa gap [Moles/Vol]TNPMercy Health Clermont HospitalComment on above:Test not performedSerum or plasma free cefuroxime measurement (mass/volume)Ordered By: Arvind Regan on 05-29-2023 Cefuroxime free [Mass/Vol]NegativeNegativeMercy Health Clermont Hospital Comment on above:Performed at: - [facility] [id number] Director: Tyrell Fernandez PhD, Phone: [phone] [Moles/volume] in Serum or PlasmaOrdered By: Venita Amanda on 99-89-9971Gwcifk [Moles/Vol]134 mmol/U123-880FqhpmvxpaMercy Health Clermont HospitalUrea nitrogen [Mass/volume] in Serum or PlasmaOrdered By: Venita Amanda on 69-13-1173Ksca nitrogen [Mass/Vol]11 mg/dL7-25[facility] HospitalWBC Auto (Bld) [#/Vol]Ordered By: Venita Amanda on 36-15-4785FZT (Bld) [#/Vol]8.7 10*3/uL 3.8-11.6FClermont County HospitalCarbamazepineOrdered By: SYSTEM SYSTEM on 26-87-0122Udokruui Lvl6.9 microgram/mLNormal4.0-12.0Remisol ChemComment on above:Performed By: #### [id number], [id number] #### [facility] [address], [place] [address]Wpncnntec Orderon 75-93-4175Zhzukwvdk Order [id number]#1.00TIFFNormalFishGreater Baltimore Medical CenterodiumOrdered By: SYSTEM SYSTEM on 39-75-3244Ercqnv [Moles/Vol]134 mmol/L Wvi984-243Yuqqcoo ChemComment on above:Performed By: #### [id number] #### [facility] [address], [place] [address]SKPXMBRNBPtngcxn By: SYSTEM SYSTEM on 51-51-2987Rrbzcbmc Lvl8.7 microgram/mLNormal4.0 - 12.0 mcg/mLRemisol ChemSodium [Moles/Vol]123 mmol/LLow 135 - 145 mmol/LRemisol ChemCarbamazepineon 15-90-8883Vwkhjhrg Lvl8.7 microgram/mLNormal4.0-12.0The Jewish HospitalComment on above:Performed By: #### [id number], [id number] #### [facility] [address], [place] [address]Iebbaewpl Orderon 99-05-7569Fiduwhkfd Order [id number]#1.00TIFFNormalCleveland Clinic Fairview Hospitalodiumon 18-69-4196Zfdwop [Moles/Vol]123 mmol/SDbs725-846OqhfxqThe Jewish HospitalComment on above:Performed By: #### [id number], [id number] #### [facility] [address], [place] [address]QJ (CLEAN/CATCH) NEW ACCOUNTS CLERK/MICRO IF IND.on 25-85-3141Vhbfbnwqh Ql (U) NegativeNormalNEGATIVERegency Hospital Cleveland WestComment on above:Performed By: #### UACSIND #### [facility] [address] [place] [address] Dr. Pio Kurtz (U)CLEARNormalCLEARRegency Hospital Cleveland WestComment on above: Performed By: #### UACSIND #### [facility] [address] [place] [address] Dr. Pio Velázquez (U)LT. YELLOWNormalYELLOWRegency Hospital Cleveland WestComment on above:Performed By: #### UACSIND #### [facility] [facility] [address] [place] [address] Dr. Pio MackGlucose Ql (U)NegativeNormalNEGATIVERegency Hospital Cleveland WestComment on above:Performed By: #### UACSIND #### [facility] [address] [place] [address] Dr. Pio MackHemoglobin Ql (U)NegativeNormalNEGCleveland Clinic Hill[facility] Comment on above:Performed By: #### UACSIND #### [facility] [address] [address] [address] Pio Osheaones Ql (U)NegativeNormalNEGATIVEThe [facility] HospitalComment on above:Performed By: #### UACSIND #### [facility] [address] [place] [address] Dr. Pio MackLEUKOCYTESNegativeNormalNEGATIVEThe [facility] HospitalComment on above:Performed By: #### UACSIND #### [facility] [address] [place] [address] Dr. Pio Barkertrite Ql (U)NegativeNormalNEGATIVERegency Hospital Cleveland WestComment on above:Performed By: #### UACSIND #### [facility] [address] [place] [address] Dr. Pio Posadas (U)7.5 [pH]Normal5-9The [facility] HospitalComment on above: Performed By: #### UACSIND #### [facility] [address] [place] [address] Dr. Pio MackSPEC GRAVITY1.729Cwamhl3.005-<=1.025The [facility] HospitalComment on above:Performed By: #### UACSIND #### [facility] [address] [place] [address] Dr. Pio May PROTEINNegativeNormalNEGATIVE/ TRACEThe [facility] Comment on above:Performed By: #### UACSIND #### [facility] [address] [place] [address] Dr. Pio Rivera MICRO INDNOT INDICATEDNormalThMartins Ferry HospitalComment on above:Performed By: #### UACSIND #### [facility] [address] [place] [address] Dr. Pio Melgozagen Qn (U)0.2 {Polina'U}/dLNormal0.2 - 1.0The [facility] HospitalComment on above:Performed By: #### UACSIND #### [facility] [address] [place] [address] Dr. Pio Quiñones ACOG PANEL 2: 31 to 66on 05-06-2022..NormalRegency Hospital Cleveland WestComc.s. [facility] on above:Result Comment: Performed at: WBPerformed By: #### [id number] #### [facility] [address] [place] [address] Dr. Pio Baer Gdln ACOG Awsbpex45-44TjwpbgPovThe Jewish HospitalComment on above:Performed By: #### [id number] #### [facility] [address] [place] [address] Dr. Pio MackDIAGNOSIS:CommentMercy Health Defiance Hospital on above: Result Comment: NEGATIVE FOR INTRAEPITHELIAL LESION OR MALIGNANCY. Performed at: WBPerformed By: #### [id number] #### [facility] [address] [place] [address] Dr. Pio Milner AptimaNegativeNormalNegativeRegency Hospital Cleveland WestComc.s. [facility] hospital on above:Result Comment: This nucleic acid amplification test detects fourteen high-risk HPV types (16,18,31,33,35,39,45,51,52,56,58,59,66,68) without differentiation. Performed at: =GPerformed By: #### [id number] #### [facility] [address] [place] [address] Dr. Pio Milner Genotype ReflexCommentTwin City HospitalComc.s. [facility] on above:Result Comment: Criteria not met, HPV Genotype not performed. Performed at: WBPerformed By: #### [id number] #### [facility] [address] [place] [address] Dr. Pio MackMethodology:CommentMercy Health Defiance Hospital on above: Result Comment: This liquid based ThinPrep(R) pap test was screened with the use of an image guided system. Performed at: WBPerformed By: #### [id number] #### [facility] [address] [place] [address] Dr. Pio MackNote:CommentMercy Health Defiance Hospital on above:Result Comment: The Pap smear is a screening test designed to aid in the detection of premalignant and malignant conditions of the uterine cervix. It is not a diagnostic procedure and should not be used as the sole means of detecting cervical cancer. Both false-positive and false-negative reports do occur. . Performed at: WBPerformed By: #### [id number] #### [facility] [address] [place] [address] Dr. Pio MackPerformed by:CommentTwin City HospitalComc.s. mott children's hospital on above: Result Comment: Mary Anne Poe, Hull Builder (ASCP) Performed at: WBPerformed By: #### [id number] #### [facility] [address] [place] [address] Dr. Pio MackSpecimen adequacy:CommentMercy Health Defiance Hospital on above:Result Comment: Satisfactory for evaluation. Endocervical and/or squamous metaplastic cells (endocervical component) are present. Performed at: WBPerformed By: #### [id number] #### [facility] [address] [place] [address] Dr. Pio Mack Vital Signs Date TimeVital SignValuePerforming KgviotegyFimqrdft69-32-5601 09:03-0400Body xectmc575.83 Juankapil Mike TRAINING AND DEVELOPMENT COORDINATOR-SOCIAL WORK THERAPIST-C Work Phone: 1([phone])628-[address] [place], [place] 5233310-29-2025 09:03-0400 Body mass index (BMI) [Ratio]31.4 kg/q0PucnmMigdalia Mike TRAINING AND DEVELOPMENT COORDINATOR-SOCIAL WORK THERAPIST-C Work Phone: 1(983)736-[address] [place], [place] 5233310-29-2025 09:03-0400 Body ynrmfl13.36 kgriley Mike TRAINING AND DEVELOPMENT COORDINATOR-SOCIAL WORK THERAPIST-C Work Phone: 1([phone] [place], [place] 5233310-29-2025 09:03-0400 Diastolic blood mm[Hg]Migdalia Rashid TRAINING AND DEVELOPMENT COORDINATOR-SOCIAL WORK THERAPIST-C Work Phone: 1(692)860-[address] [place], [place] 5233310-29-2025 09:03-0400 Heart rate67 /Rahel Mike TRAINING AND DEVELOPMENT COORDINATOR-SOCIAL WORK THERAPIST-C Work Phone: [facility]10-29-2025 09:03-0400 Respiratory rate16 /minSarah Rashid TRAINING AND DEVELOPMENT COORDINATOR-SOCIAL WORK THERAPIST-C Work Phone: [facility]10-29-2025 09:03-0400 SaO2% (BldA) [Mass fraction]98 %Migdalia Mike TRAINING AND DEVELOPMENT COORDINATOR-SOCIAL WORK THERAPIST-C Work Phone: [facility]10-29-2025 09:03-0400 Systolic blood mm[Hg]Migdalia Mike TRAINING AND DEVELOPMENT COORDINATOR-SOCIAL WORK THERAPIST-C Work Phone: [facility]09-30-2025 10:58-0400 Body ybgsgd979.8 cmKatherine Romp PA Work Phone: [facility] [employer] Hggxrt86-70-1119 10:58-0400Body mass index (BMI) [Ratio]27.73 kg/y4Ijhlcgoej Romp PA Work Phone: [facility] HospitalCompete Youaax22-45-8053 10:58-0400Body .39 kgKatherine Romp PA Work Phone: [facility] HospitalKingdee09-30-2025 10:58-0400Diastolic blood hnxjzzhy32 mm[Hg]Abby Romp PA Work Phone: [facility] [employer] Bwnxnp92-42-8793 10:58-0400Heart rate 62 /minKatherine Romp PA Work Phone: [facility] HospitalKingdee09-30-2025 10:58-0400 Respiratory rate16 /minKatherine Romp PA Work Phone: [facility] HospitalKingdee09-30-2025 10:58-0400Systolic blood wmqmpswu573 mm[Hg]Abby Romp PA Work Phone: [facility] [employer] Fbmesl06-50-7833 09:29-0400Body .6 cmMarc Dolce DPM FACFAS Work Phone: [facility] InstituteEewbzjhwlb35-69-2997 09:29-0400Body mass index (BMI) [Ratio]33.81 kg/m2Maryusuf Charlton DPM FACFAS Work Phone: 1(235)[address] [place], [place] 5164909-24-2025 09:29-0400Body dyxlof87.36 kgMarc Latesha DPM FACFAS Work Phone: 1(963)[address] [place], [place] 5164909-24-2025 09:29-0400Diastolic blood ypoeivde26 mm[Hg]Bhanu Charlton DPM FACFAS Work Phone: 1(504)[address] [place], [place] 5164909-24-2025 09:29-0400Heart rate75 /min Bhanu Charlton DPM FACFAS Work Phone: 1(853)[address] [place], [place] 5164909-24-2025 09:29-0400Systolic blood wtteqcsd763 mm[Hg]Bhanu Charlton DPM FACFAS Work Phone: 1(206)[address] [place], [place] 5164908-18-2025 10:00-0400Body temperature 97.9 [degF]Ogjesus manuel Grant DDS Work Phone: met173-8542CdeanTetgkr87-675388UxmamUyllio19-36-7491 10:00-0400Diastolic blood nfrhhuds10 mm[Hg]Ogjesus manuel Grant DDS Work Phone: MetroHealthComment on above:ok for DC per Dr. Moralez, pt will take home BP exza68-65-2674 10:00-0400Heart phoi028 /minCatiaith Avinash-Romainjarodi DDS Work Phone: [phone]zEcocsl62-29-9583 10:00-0400Respiratory rate17 /minCatiaith Avinash-Romainhni DDS Work Phone: 1(505) [phone]eCljbsa31-78-6330 10:00-1471LtY6% (BldA) [Mass fraction]94 %Ogjesus manuel Gongyulia DDS Work Phone: 1(129) [phone]qGsulyx47-13-2354 10:00-0400Systolic blood ivrqnlkx483 mm[Hg]Og OakleyRomainmerlyn DDS Work Phone: MetroHealthComment on above:ok for DC per Dr. Moralez, pt will take home BP blyc09-32-5533 07:13-0400Body cahibz552.1 cmLmarilu Grant DDS Work Phone: [phone]aWbhxzk07-64-0902 07:13-0400Body mass index (BMI) [Ratio]30.29 kg/z3XtmddOg Grant DDS Work Phone: 1(424) [phone]mQkyrea12-74-8227 07:13-0400Body muayqv94.56 kg Og Grant DDS Work Phone: 1(430) [phone]lSjetjn39-00-2221 09:36-0400Body jhviyz492.6 cm Bhanu Charlton DPM FACFAS Work Phone: 1(822)[address]08-13-2025 09:36-0400Body mass index (BMI) [Ratio]33.81 kg/m2Marc Ivance DPM FACFAS Work Phone: 1(688)[address] [place], [place] 5164908-13-2025 09:36-0400Body sbehqv61.36 kgMarc Dolce DPM FACFAS Work Phone: 1(634)[address] [place], [place] 5164908-13-2025 09:36-0400Diastolic blood tqjroona97 mm[Hg]Bhanu Charlton DPM FACFAS Work Phone: 1(544)[address] [place], [place] 5164908-13-2025 09:36-0400Heart rate72 /min Bhanu Charlton DPM FACFAS Work Phone: 1(911)[address] [place] [address]-13-2025 09:36-0400Systolic blood xcyltwcj515 mm[Hg]Bhanu Charlton DPM FACFAS Work Phone: 1(978)[address] [place], [place] 5164908-01-2025 14:39-0400Body mass index (BMI) [Ratio]30.44 kg/x8MuirqiveGlenn Chatman MD Work Phone: 1(443) [phone]dPxczjy37-37-4192 14:39-0400Body wrxzaazvlxn02.81 [degF]Glenn Chatman MD Work Phone: 1(675) [phone]uHsvdlf88-58-0393 14:39-0400Body wccdai40.96 kg Glenn Chatman MD Work Phone: 1(288) [phone]zRlgzxt99-70-3261 14:39-0400Diastolic blood sufucgku24 mm[Hg]Glenn Chatman MD Work Phone: 1(950) [phone]fScpbtb48-61-6916 14:39-0400Heart rate85 /min Glenn Chatman MD Work Phone: 1(288) [phone]aSpqjwx06-17-2396 14:39-0400Respiratory rate18 /minEmmanjanice Chatman MD Work Phone: 1(680) [phone]aYuzpam81-90-3929 14:39-0400Systolic blood mwoxmpic477 mm[Hg]Glenn Chatman MD Work Phone: 1(131) [phone]iQnddhv50-51-9079 10:32-0400Body scyzjy026.8 cm Linn Red MD Work Phone: [facility]07-15-2025 10:32-0400Body mass index (BMI) [Ratio]31.03 kg/j0VtizyLinn Red MD Work Phone: [facility]07-15-2025 10:32-0400Body xinvlh10.28 kgLinn Red MD Work Phone: [facility]07-15-2025 10:32-0400Diastolic blood uxmedhlo38 mm[Hg]Linn Red MD Work Phone: [facility]07-15-2025 10:32-0400Systolic blood jwezhoaw136 mm[Hg]Linn Red MD Work Phone: [facility]07-01-2025 10:31-0400Body .6 cmMarc Latesha BERNSTEIN FACFAS Work Phone: [facility] InstituteUkjccgfdom22-45-6234 10:31-0400Body mass index (BMI) [Ratio]33.81 kg/m2Marc Dolce DPM FACFAS Work Phone: [facility] InstituteKkjtyqpwvg14-08-8046 10:31-0400Body bjjorc76.36 kgMaryusuf Charlton DPM FACFAS Work Phone: [facility] InstituteRipftpcyiq29-59-1050 10:31-0400Diastolic blood ooagredj80 mm[Hg]Bhanu Charlton DPM FACFAS Work Phone: [facility] InstituteNgsgeyormn05-88-9195 10:31-0400Heart rate70 /min Bhanu Charlton DPM FACFAS Work Phone: [facility] InstituteKbsiqpshaz81-68-4730 10:31-0400Systolic blood xjbjrbek083 mm[Hg]Bhanu Charlton DPM FACFAS Work Phone: [phone] InstituteJxuxoelgni46-93-4454 09:36-0400Body gwvkme586.8 cmGrjuan carlos Haque TRAINING AND DEVELOPMENT COORDINATOR-ICING MAKER Work Phone: [facility]06-19-2025 09:36-0400Body mass index (BMI) [Ratio]31.45 kg/g7Rfaxwvupjuan carlos Haque TRAINING AND DEVELOPMENT COORDINATOR-ICING MAKER Work Phone: [facility]06-19-2025 09:36-0400Body irkirq96.37 kgGrjuan carlos Haque TRAINING AND DEVELOPMENT COORDINATOR-ICING MAKER Work Phone: [facility]06-19-2025 09:36-0400Diastolic blood zhxmiiks54 mm[Hg]Eve Haque TRAINING AND DEVELOPMENT COORDINATOR-ICING MAKER Work Phone: [facility]06-19-2025 09:36-0400Heart rate 69 /minJohanjuan carlos Haque TRAINING AND DEVELOPMENT COORDINATOR-ICING MAKER Work Phone: [facility]06-19-2025 09:36-0400 Respiratory rate16 /minGrjuan carlos Haque TRAINING AND DEVELOPMENT COORDINATOR-ICING MAKER Work Phone: [facility]06-19-2025 09:36-0400Systolic blood odsificu920 mm[Hg]Eve Haque TRAINING AND DEVELOPMENT COORDINATOR-ICING MAKER Work Phone: [facility]06-17-2025 14:12-0400Body .8 Martha Red MD Work Phone: [facility]06-17-2025 14:12-0400Body mass index (BMI) [Ratio]31.54 kg/s9LihleLinn Red MD Work Phone: [facility]06-17-2025 14:12-0400Body ieymem98.64 kgLinn Red MD Work Phone: [facility]06-17-2025 14:12-0400Diastolic blood lsavbvhh36 mm[Hg]Linn Red MD Work Phone: [facility]06-17-2025 14:12-0400Systolic blood imxnfskc856 mm[Hg]Linn Red MD Work Phone: [facility]06-17-2025 09:53-0400Body gyobnz621.6 cmMarc Dolce DPM FACFAS Work Phone: 1(109)[address] [place], [place] 5164906-17-2025 09:53-0400Body mass index (BMI) [Ratio]33.81 kg/m2Marc Dolce DPM FACFAS Work Phone: 1(994)[address] [place], [place] 5164906-17-2025 09:53-0400Body sdirst99.36 kgMarc Dolce DPM FACFAS Work Phone: 1(909)[address] [place], [place] 5164906-17-2025 09:53-0400Diastolic blood aoiymgtd70 mm[Hg]Bhanu Charlton DPM FACFAS Work Phone: 1(507)[address] [place], [place] 5164906-17-2025 09:53-0400Heart rate71 /min Bhanu Charlton DPM FACFAS Work Phone: 1(303)[address] [place], [place] 5164906-17-2025 09:53-0400Systolic blood scvwicxd912 mm[Hg]Bhanu Charlton DPM FACFAS Work Phone: 1(918)[address] [place], [place] 5164905-28-2025 10:55-0400Body kdotyj920.6 cmMarc Dolce DPM FACFAS Work Phone: 1(419)[address] [place], [place] 5164905-28-2025 10:55-0400Body mass index (BMI) [Ratio]33.81 kg/m2Marc Dolce DPM FACFAS Work Phone: 1(419)[address] [place], [place] 5164905-28-2025 10:55-0400Body afyvjj32.36 kgMarc Dolce DPM FACFAS Work Phone: 1(419)[address] [place], [place] 5164905-28-2025 10:55-0400Diastolic blood cjhqbcun02 mm[Hg]Bhanu Dolce DPM FACFAS Work Phone: 1(419)[address] [place], [place] 5164905-28-2025 10:55-0400Heart rate72 /min Bhanu Dolce DPM FACFAS Work Phone: 1(419)[address] [place], [place] 5164905-28-2025 10:55-0400Systolic blood mm[Hg]Bhanu Dolce DPM FACFAS Work Phone: 1(419)[address] [place], [place] 5164905-14-2025 10:23-0400Body atasyf161.6 cmMarc Dolce DPM FACFAS Work Phone: 1(419)[address] [place], [place] 5164905-14-2025 10:23-0400Body mass index (BMI) [Ratio]33.81 kg/m2Marc Dolce DPM FACFAS Work Phone: 1(419)[address] [place], [place] 5164905-14-2025 10:23-0400Body arrjvh59.36 kgMarc Dolce DPM FACFAS Work Phone: 1(419)[address] [place] [address]-14-2025 10:23-0400Diastolic blood ukbdeqbi46 mm[Hg]Bhanu Dolce DPM FACFAS Work Phone: 1(419)[address] [place], [place] 5164905-14-2025 10:23-0400Heart rate75 /min Bhanu Dolce DPM FACFAS Work Phone: 1(419)[address] [place], [place] 5164905-14-2025 10:23-0400Systolic blood jhqypggv954 mm[Hg]Bhanu Lovece DPM FACFAS Work Phone: 1(419)[address] [place], [place] 5164904-23-2025 13:33-0400Body egaers859.1 cmZaid Joshua TRAINING AND DEVELOPMENT COORDINATOR-CNM Work Phone: [facility]04-23-2025 13:33-0400Body mass index (BMI) [Ratio]32.05 kg/e1VhlbvZaid Joshua TRAINING AND DEVELOPMENT COORDINATOR-CNM Work Phone: [facility]04-23-2025 13:33-0400Body hancdf33.36 kgZaid Joshua TRAINING AND DEVELOPMENT COORDINATOR-CNM Work Phone: [facility]04-23-2025 13:33-0400Diastolic blood tfcpispp35 mm[Hg]Zaid Joshua TRAINING AND DEVELOPMENT COORDINATOR-CNM Work Phone: [facility]04-23-2025 13:33-0400Systolic blood tkatihtg023 mm[Hg]Zaid Joshua APRN-CNM Work Phone: [facility]04-14-2025 10:33-0400Body pervnk285.6 cmAparveen Mike PA Work Phone: [facility] InstituteXtsrwcaanz72-60-6249 10:33-0400Body mass index (BMI) [Ratio]33.81 kg/m2Valentina Mike PA Work Phone: [facility] InstituteUvgyhbyztr89-97-7855 10:33-0400Body ridyhy41.36 kgValentina Mike PA Work Phone: [facility] InstituteWsxgvtdobo08-29-5386 10:33-0400Diastolic blood jhuccloc48 mm[Hg]Valentina Mike PA Work Phone: [address] [address]Mabcimgtif19-46-3635 10:33-0400Heart rate73 /min Valentina Mike PA Work Phone: [address] [address]Nyfgqwhdba08-72-6593 10:33-0400Respiratory rate16 /minValentina Mike PA Work Phone: [address] [address]Yaluddoxvz86-59-0217 10:33-1130JgZ1% (BldA) [Mass fraction]96 %Valentina Mike PA Work Phone: [facility] InstituteOgjqpcyslk37-66-6527 10:33-0400Systolic blood rgzoeagm933 mm[Hg]Valentina Mike PA Work Phone: [facility] InstituteVbcrewglgu38-51-5906 11:05-0500Body mass index (BMI) [Ratio]31.24 kg/v8PhnjtcDamien Jones SIMPLEX PRINTER INSTALLER Work Phone: [facility] InstituteTwrhxzamrd43-20-1743 11:05-0500Body nejvwu40.56 kgDamien Jones SIMPLEX PRINTER INSTALLER Work Phone: 1(412)389-[facility] [facility] [place]7[facility] InstituteMpcoonqfsg60-51-0234 11:05-0500Diastolic blood lcgihddk80 mm[Hg]Damien Jones SIMPLEX PRINTER INSTALLER Work Phone: 1(971)260-[facility] [place] [facility] [place]4[facility] InstituteIbdcwhgcod34-71-4563 11:05-0500Heart rate84 /min Damien Jones SIMPLEX PRINTER INSTALLER Work Phone: [facility] InstituteJceytvmfuy18-46-2749 11:05-0500Systolic blood ohdjjaro913 mm[Hg]Damiendaksha Jones SIMPLEX PRINTER INSTALLER Work Phone: 1(584)320-[facility] [place] [facility] [place]7[facility] InstituteAwsyhvixih96-79-7301 09:30-0500Body qhkzyb378.6 cmMarc Dolce DPM FACFAS Work Phone: [phone] InstituteKqzmnvvdnq39-17-2820 09:30-0500Body mass index (BMI) [Ratio]31.58 kg/m2Marc Dolce DPM FACFAS Work Phone: 1(049)[address] [place], [place] 5164901-07-2025 09:30-0500Body jyvjba94.46 kgMarc Dolce DPM FACFAS Work Phone: 1(890)[address] [place], [place] 5164901-07-2025 09:30-0500Diastolic blood mm[Hg]Bhanu Charlton DPM FACFAS Work Phone: 1(158)[address] [place], [place] 5164901-07-2025 09:30-0500Heart rate71 /min Bhanu Charlton DPM FACFAS Work Phone: 1(291)562-[address] [place], [place] [address]Zdiryfqkgy10-66-2551 09:30-0500Systolic blood ttvuongi487 mm[Hg]Bhanu Charlton DPM FACFAS Work Phone: 1(503)[address] [place], [place] 5164912-11-2024 09:00-0500Body .1 cmCatherkeshawn Denton BPYvkqnGdcfuf09-74-9224 09:00-0500Body mass index (BMI) [Ratio]31.72 kg/t8Smmqovplbkeshawn Denton VPXeqnhZctmaq89-85-8211 09:00-0500Body wxxuor37.46 kgCatindia Denton JXCrrouHwmboy93-10-6250 09:17-0400Body wnqwdcjhcuj83.2 [degF]Micaela VELEZ Work Phone: [phone]0-996084ByvchTybrbm51-95-9149 09:17-0400Respiratory rate0 /min Micaela VELEZ Work Phone: [phone]AnliqZsvrgq18-37-8256 09:16-0400Diastolic blood mm[Hg]Micaela VELEZ Work Phone: [phone])[phone]WhgcaWkxdcy64-66-7830 09:16-0400Heart rate84 /min Micaela VELEZ Work Phone: 1216)[phone]YyidzPdymyl08-40-0900 09:16-4560ItO4% (BldA) [Mass fraction]95 %Micaela VELEZ Work Phone: [phone])[phone]oxnlNnqwif07-77-7450 09:16-0400Systolic blood ddiypgjg278 mm[Hg]Micaela VELEZ Work Phone: 1(180) [phone]rRywqpk92-18-1021 09:19-0400Body epmcee757.6 cm Bhanu Charlton DPM FACFAS Work Phone: [facility] InstituteIrsdnjxskg61-16-6014 09:19-0400Body mass index (BMI) [Ratio]31.58 kg/m2Marc Dolce DPM FACFAS Work Phone: [facility] InstituteCupfcvxfqq18-80-0016 09:19-0400Body osfkhq69.46 kgMarc Dolce DPM FACFAS Work Phone: [facility] InstituteOrrmuorhha41-70-0245 09:19-0400Diastolic blood htxepmni05 mm[Hg]Bhanu Charlton DPM FACFAS Work Phone: [facility] InstituteMhaksuupwl99-61-3136 09:19-0400Heart rate68 /min Bhanu Charlton DPM FACFAS Work Phone: [facility] InstituteHsnzdxsmzf37-90-8874 09:19-0400Systolic blood bwroaicm094 mm[Hg]Bhanu Charlton DPM FACFAS Work Phone: [facility] InstituteAsazctdciv98-52-7062 09:37-0400Diastolic blood jqubhyzz24 mm[Hg]Case Melchor MD Work Phone: [facility]09-05-2024 09:37-0400Heart rate 65 /minCase Melchor MD Work Phone: [address] [place], [place] 2936909-05-2024 09:37-0400Systolic blood grskkacj809 mm[Hg]Case Melchor MD Work Phone: [facility]09-05-2024 09:34-0400Body hdbfmy11.46 kgCase Melchor MD Work Phone: [facility]06-15-2024 22:14-0400Diastolic blood kylwnlmg55 mm[Hg]IMAN Pathakney Saffle Work Phone: [facility]06-15-2024 22:14-0400 Heart rate85 /minBLANCASherlyn Venita Saffle Work Phone: [facility]06-15-2024 22:14-0400 Respiratory rate22 /minAPRSherlyn Venita Saffle Work Phone: [facility]06-15-2024 22:14-0400 SaO2% (BldA) [Mass fraction]100 %TRAINING AND DEVELOPMENT COORDINATOR Venita Saffle Work Phone: [facility]06-15-2024 22:14-0400 Systolic blood uokqyvhw506 mm[Hg]TRAINING AND DEVELOPMENT COORDINATOR Venita Saffle Work Phone: [facility]06-15-2024 19:54-0400 Body xplilk336.83 cmAPRSherlyn Venita Saffle Work Phone: [facility]06-15-2024 19:54-0400 Body uehvvnrenhe94.2 [degF]IMAN Nathan Saffle Work Phone: [facility]06-15-2024 19:54-0400 Body qolfwd33 kgAPRSherlyn Nathan Saffle Work Phone: [facility]06-06-2024 14:10-0400 Diastolic blood tobswbuk00 mm[Hg]Case Melchor MD Work Phone: [facility]06-06-2024 14:10-0400Heart rate 75 /minCase Melchor MD Work Phone: [facility]06-06-2024 14:10-0400Systolic blood bledsmwe474 mm[Hg]Case Melchor MD Work Phone: [facility]06-06-2024 14:07-0400Body uezzow76.74 kgCase Melchor MD Work Phone: [facility]06-06-2024 14:07-3838HsW4% (BldA) [Mass fraction]100 %Case Melchor MD Work Phone: [facility]04-10-2024 12:00-0400Body qvufrngyrin59.3 [degF]IMAN Nathan Saffle Work Phone: [facility]04-10-2024 12:00-0400 Diastolic blood pwphxfac87 mm[Hg]IMAN Nathan Saffle Work Phone: [facility]04-10-2024 12:00-0400 Heart rate82 /minIMAN Nathan Saffle Work Phone: [facility]04-10-2024 12:00-0400 Respiratory rate18 /minIMAN Nathan Saffle Work Phone: [facility]04-10-2024 12:00-0400 SaO2% (BldA) [Mass fraction]98 %IMAN Nathan Saffle Work Phone: [facility]04-10-2024 12:00-0400 Systolic blood ycebzjpv089 mm[Hg]IMAN Nathan Saffle Work Phone: [facility]04-10-2024 06:00-0400 Body rdgnib44 kgAPRSherlyn Francoisfle Work Phone: [facility]04-08-2024 12:46-0400 Body cxiebr429.1 cmAPRSherlyn Francoisfle Work Phone: [facility]04-07-2024 16:36-0400 Diastolic blood qxjekvtd01 mm[Hg][facility]04-07-2024 16:36-0400Systolic blood wumwdvwr039 mm[Hg][facility] 05-29-2023 15:48-0400Body abgqetabfxm89.1 [degF][facility]04-07-2024 15:48-0400Heart rate90 /[facility] 05-29-2023 15:48-0400Respiratory rate18 /[facility] 05-29-2023 15:48-5842DuG9% (BldA) [Mass fraction]96 %[facility]04-07-2024 13:05-0400Body xwyalm447.1 [facility]29-[facility]23 13:05-0400Body dduggi26.6 kgMer[facility] Health [facility] Encounters Encounter DateEncounter TypeCare ProviderFacilityStart: 12-19-2024 End: 51-39-7387ahrffjccryRYC STAFF-[facility] NeurologyStart: 12-19-2024 End: 68-54-7820Khusneq encounter Sarah Mike APRN-FNP-C-[facility] Work Phone: Start: 11-20-2024 End: 62-08-1441Uaivxyhzk encounterSally von Mati [facility] Surgical OncologyStart: 11-20-2024 End: 59-11-8083Qwdqdl outpatient visit 25 minutesKatherkeshawn Recinos Merna PYLE Work Phone: [facility] Surgical OncologyComment on above:Cellulitis of right breast (Primary Dx)Start: 11-20-2024 End: 68-80-7393zihbdpyudeBIOEQJJWT H ROMPProMedica Regency Hospital Toledotart: 11-14-2024 End: 34-61-8826Ihgkph flowsheetMarc D Dolce DPM FACFAS Work Phone: noms [facility] Hospitaltart: 11-14-2024 End: 58-04-4639Rxtiqf flowsheetMarc D Dolce DPM FACFAS Work Phone: [facility]oms [facility] Hospitaltart: 11-14-2024 End: 39-01-3111Npaydio encounter procedureMarc D Dolce DPM FACFAS Work Phone: noms NMA PODComment on above:Onychomycosis (Primary Dx); Pain in left toe(s); Pain in right toe(s)Start: 11-14-2024 End: 11-56-6367ucufiqyesuCLBQ D DOLCENot AvailableStart: 30-93-2152aeeljoxfwi OG GONGIFacility:METROHealthStart: 10-08-2024 End: 92-10-2173pbmdfegfeuFXGVF AL-MASHNIFacility:METROHealthStart: 10-08-2024 End: 50-17-3133Axqsrlz encounter procedureOg Grant DDS Work Phone: [facility] DentistryStart: 10-08-2024 End: 24-99-3651Insxtadnza hospital visit by physicianOg Grant DDS Work Phone: metBuilt InAtrium Health Stanly Ambulatory SurgeryStart: 10-05-2024 End: 24-03-3404Udxjzrrng encounterAlvin Garcia RNMetroHealth Pre-Admission TestingComment on above:Dental (DD adult dental restorations 10/08/24 under [place] at [place]. PAT completed 09/21/24. Consents obtained from Guardian Jessica Houston. KIM RN spoke to Yazmin MARES at [facility] on 10/05/24. Confirmed NPO after 2199. [place] address [id number] [place] [address]. 0630 arrival time. [facility] DOS./)Start: 10-03-2024 End: 82-40-2824Pjaplw flowsheetMarc D Dolce DPM FACFAS Work Phone: noms [facility] HospitalwnStart: 10-03-2024 End: 35-10-6197Ezddja flowsheetMarc D Dolce DPM FACFAS Work Phone: noms [facility] Hospitaltart: 10-03-2024 End: 21-20-0526Sfqerxole encounterJulienne Ty RNMetroHealth Pre-Admission TestingStart: 10-03-2024 End: 45-10-0068Ugyrtz outpatient visit 15 minutesMarc D Dolce DPM FACFAS Work Phone: noms NMA PODComment on above:Exostosis of right foot (Primary Dx); Other enthesopathy of right foot and ankleStart: 10-03-2024 End: 01-79-0849bzrkvqhaybFWVK D DOLCENot AvailableStart: 09-28-2024 End: 57-24-4493Uavcaigii encounterJulienne Ty RNMetroHealth Pre-Admission TestingStart: 05-63-0907whhboljatpWNMRDQYP BOAKYEFacility:METROHealthStart: 09-21-2024 End: 37-25-0567Cjzekz outpatient new 45 minutesGlenn Chatman MD Work Phone: [facility]Brown [facility] Pediatric Comprehensive CareComment on above:Pre-op evaluation (Primary Dx); Body mass index (BMI) 30.0-30.9, adultStart: 09-21-2024 End: 86-70-7029Prwdwoovdqlip examination doneGlenn Chatman MD Work Phone: [facility] Work Phone: Start: 09-04-2024 End: 79-43-4067Fbzwbj outpatient visit 15 minutesComita Red MD Work Phone: [facility] Obstetrics/GynecologyComment on above:Mastodynia, female (Primary Dx)Start: 09-04-2024 End: 41-11-1227snmnsqfwpgVWCBPVeterans Health Administration Ambulatory PPGStart: 08-23-2024 End: 02-32-6558gmgyynnwceOqwcvg A [facility] Work Phone: Start: 08-23-2024 End: 35-02-7143Eswgfjty ReferredPalm Bay Community Hospital DO-LAB [facility] Start: 08-21-2024 End: 74-98-9344Gawsmq flowsheetMarc D Dolce DPM FACFAS Work Phone: noms ASC PODStart: 08-21-2024 End: 51-63-8000Jjozgf flowsheetMarc D Dolce DPM FACFAS Work Phone: noms ASC PODStart: 08-21-2024 End: 85-99-4855Kyeukd outpatient visit 15 minutesMarc D Dolce DPM FACFAS Work Phone: noms NMA PODComment on above:Exostosis of right foot (Primary Dx); Other enthesopathy of right foot and ankle; Right foot painStart: 08-21-2024 End: 29-09-0881vwvvnuquouEAUS D DOLCENot AvailableStart: 08-09-2024 End: 83-40-4475losiyuusmcYCDAFMercy Health St. [facility] HospitalStart: 08-09-2024 End: 67-94-6085Hekvce outpatient new 30 minutesEve Haque TRAINING AND DEVELOPMENT COORDINATOR-ICING MAKER Work Phone: [facility] Surgical OncologyComment on above:Mass of right breast, unspecified quadrant (Primary Dx); Breast skin changes; Mastodynia, femaleStart: 08-09-2024 End: 69-94-9053esyuaiuwrbWIIGLVHTEmily Ni [facility] HospitalStart: 08-08-2024 End: 34-29-1585Wufauqirs to same day surgery centerMitaylor Black DDS Work Phone: MetB[facility] DentistryStart: 08-07-2024 End: 17-06-8886Hhtodr outpatient visit 15 minutesLinn Red MD Work Phone: [facility] Obstetrics/GynecologyComment on above:Mastodynia, female (Primary Dx); Mass of right breast, unspecified quadrantStart: 08-07-2024 End: 10-44-7095wghietrrzlWAJNINYC Health + Hospitals Ambulatory PPGStart: 08-07-2024 End: 06-89-8172Batudr flowsheetMarc D Dolce DPM FACFAS Work Phone: NOMS ASC PODStart: 08-07-2024 End: 85-13-1271Nzolum flowsheetMarc D Dolce DPM FACFAS Work Phone: NOM[facility] ASC PODStart: 08-07-2024 End: 96-99-4173Vmncbn outpatient visit 15 minutesMarc D Dolce DPM FACFAS Work Phone: NOMS NMA PODComment on above:Exostosis of right foot (Primary Dx); Other enthesopathy of right foot and ankle; Pain in right toe(s); Right foot pain; Onychomycosis; Pain in left toe(s)Start: 08-07-2024 End: 50-76-8662mwapngcgvnBLBU D DOLCENot AvailableStart: 07-18-2024 End: 68-43-2752Uxbwba flowsheetMarc D Dolce DPM FACFAS Work Phone: [phone] ASC PODStart: 07-18-2024 End: 67-42-3264Unkxfj flowsheetMarc D Dolce DPM FACFAS Work Phone: [phone] ASC PODStart: 07-18-2024 End: 79-44-1477Lfadnu outpatient visit 15 minutesMarc D Dolce DPM FACFAS Work Phone: noMS NMA PODComment on above:Abscess, toe, left (Primary Dx); OnychocryptosisStart: 07-18-2024 End: 01-54-7394hyzpuoabfhIIEG D DOLCENot AvailableStart: 2024 End: 53-18-5522Xmawah flowsheetMarc D Dolce DPM FACFAS Work Phone: noms ASC PODStart: 2024 End: 48-59-4784Zcxrtq flowsheetMarc D Dolce DPM FACFAS Work Phone: NOQS ASC PODStart: 2024 End: 95-66-5509Tpisbc outpatient visit 15 minutesMarc D Dolce DPM FACFAS Work Phone: noms NMA PODComment on above:Onychocryptosis (Primary Dx); Pain in left toe(s); Abscess, toe, leftStart: 2024 End: 32-18-9443ztrbduxsyaILTF D DOLCENot AvailableStart: 06-13-2024 End: 93-54-4035Shhvez pelvic examinationZaid Joshua IMAN-JEANNINEM Work Phone: [facility] Work Phone: Start: 06-13-2024 End: 88-34-2778Nmredsb encounter procedureZaid Joshua IMAN-CNM Work Phone: [facility] Physicians Obstetrics/GynecologyComment on above:Encounter for breast and pelvic examination (Primary Dx)Start: 06-13-2024 End: 98-34-5915zenmnglgycHFLGH [facility] Ambulatory PPGStart: 61-63-1221Rydaldlmc for gynecological examination (general) (routine) without abnormal findingsWYCASSIENewYork-Presbyterian Lower [facility] Hospital Ambulatory PPGStart: 06-04-2024 End: 46-48-0818Ljuqau Yesenia PYLE Work Phone: aNA SALUEStart: 06-04-2024 End: 68-09-3734Bhinvkrosalia PYLE Work Phone: aNA DANICAEVUEStart: 06-04-2024 End: 17-54-7445Gykens outpatient visit 15 minutesPamelaanay Rashid PA Work Phone: aNA BELLEVUEComment on above:Convulsions, unspecified convulsion type (CMS/HCC) (Primary Dx); Hyponatremia; Developmental delay; Anger reactionStart: 06-04-2024 End: 37-74-5229aznizqeqpwJTTV HILLNot AvailableStart: 05-08-2024 End: 32-01-8920itownezjlzRDEC D DOLCENot AvailableStart: 02-29-2024 End: 74-00-4451Rbcneh Margoth Jones SIMPLEX PRINTER INSTALLER Work Phone: aNA BELLEVUEStart: 02-29-2024 End: 27-66-4088Pawlxcrosalia Jones SIMPLEX PRINTER INSTALLER Work Phone: ANA BELLEVUEStart: 02-29-2024 End: 20-99-8522Vjuphz outpatient visit 25 minutesDamien Jones SIMPLEX PRINTER INSTALLER Work Phone: aNA BELLEVUEComment on above:Convulsions, unspecified convulsion type (CMS/HCC) (Primary Dx); Hyponatremia; Developmental delay; Anger reactionStart: 02-29-2024 End: 83-35-6730voiwbyjmlaSOAOVX MORRISNot AvailableStart: 02-28-2024 End: 57-73-4563Hwyliq flowsheetMarc D Dolce DPM FACFAS Work Phone: NOMS ASC PODStart: 02-28-2024 End: 46-08-0230Tbaptz flowsheetMarc D Dolce DPM FACFAS Work Phone: [facility] ASC PODStart: 02-28-2024 End: 68-91-9956Ukfydld encounter procedureMarc D Dolce DPM FACFAS Work Phone: NOMS NMA PODComment on above:Onychomycosis (Primary Dx); Pain in right toe(s); Pain in left toe(s)Start: 02-28-2024 End: 06-08-8553brajjpyolaCPTO D DOLCENot AvailableStart: 02-23-2024 End: 07-73-8350Lcmuicx encounter procedureJennifer Altagracia MEHTA Work Phone: [facility] SystemStart: 02-23-2024 End: 95-08-6442jlesivjlfrBVKMPMD PROVIDERFacility:[facility] HospitalStart: 02-14-2024 End: 97-06-9164Junbzhfei encounterJusujit Sanchez RNKn[facility] Hospital Pre-Admission TestingStart: 02-01-2024 End: 54-02-8365Ooxlkum evaluation of patient and reportPenny Denton RN [facility] Pre-Admission TestingComment on above:Pre-op evaluation (Primary Dx)Start: 02-01-2024 End: 20-74-2206Rxszhvoqsojmc examination doneCatindia Denton RNKn[facility] Hospital Start: 76-37-2591zcfakztcfoHUGEGJJ PROVIDERFacility:[facility] HospitalStart: 02-01-2024 Encounter for other preprocedural examinationUNKNOWN PROVIDERThe [facility] SystemStart: 01-07-2024 End: 01-50-4765Zctuee encounterMetroHealthStart: 12-15-2023 End: 11-51-8540zizzbgpnmsCQRLGL GJINIFacility:[facility] HospitalStart: 12-15-2023 End: 56-56-8026Smgoiipxkq Saira Florez MD Work Phone: [facility] SystemStart: 12-15-2023 End: 27-06-0154Szlbhpf encounter procedureMarleni Alejandro DDS Work Phone: [facility] SystemComment on above:Caries (Primary Dx)Start: 12-09-2023 End: 55-75-8994Pmdhmm flowsheetNatalie A Felter TRAINING AND DEVELOPMENT COORDINATOR-ICING MAKER Work Phone: noMS SWS DERMStart: 12-09-2023 End: 91-98-5280Sphdco flowsheetNatalie A Felter TRAINING AND DEVELOPMENT COORDINATOR-ICING MAKER Work Phone: noms SWS DERMStart: 12-09-2023 End: 28-68-6254Hjexcd outpatient new 30 minutesNatalie A Felter TRAINING AND DEVELOPMENT COORDINATOR-ICING MAKER Work Phone: noms SWS DERMComment on above:Lip licking dermatitis Start: 12-09-2023 End: 96-92-2263ezdouvppmvMJZQBCA A FELTERNot AvailableStart: 11-23-2023 End: 26-60-0996Hkuelghrn encounterMeldeep Webblos RNMetroHealth Pre-Admission TestingComment on above:PAT (Anesthesia consent obtained)Start: 11-23-2023 ambulatoryUNKNOWN PROVIDERFacility:METROHealthStart: 11-09-2023 End: 39-77-5123Eiyosj flowsheetMarc D Dolce DPM FACFAS Work Phone: noms ASC PODStart: 11-09-2023 End: 75-58-0284Jfpzvt flowsheetMarc D Dolce DPM FACFAS Work Phone: noms ASC PODStart: 11-09-2023 End: 21-32-0585Gtznjbk encounter procedureMarc D Dolce DPM FACFAS Work Phone: noms NMA PODComment on above:Onychomycosis (Primary Dx); Pain in right toe(s); Pain in left toe(s)Start: 10-27-2023 End: 06-48-8468Bgzlgj outpatient visit 25 minutesCase Melchor MD Work Phone: [facility] Comment on above:Hyponatremia (Primary Dx)Start: 10-19-2023 End: 36-19-2262Kggysnc encounter Ellen Veronica DDS Work Phone: [facility] GeneralComment on above:Caries (Primary Dx)Start: 92-42-5702piezvezvglDLDN GOODMAN Facility:METROHealthStart: 08-06-2023 End: 42-78-8888Qaxtpnwwn department patient visitIMAN Amanda Work Phone: [facility] Work Phone: Start: 08-01-2023 End: 31-49-2883Kqaoaqulj encounterScanning Provider ExternalPHN [facility] CenteroStart: 07-28-2023 End: 17-74-8405Ouaqzc outpatient new 45 Lazara Melchor MD Work Phone: F [facility] Comment on above:Hyponatremia (Primary Dx)Start: 05-30-2023 End: 46-99-0096Pabxbhbqgj and management of inpatientAPRN Venita Amanda Work Phone: [facility] [place] [facility] Work Phone: Start: 13-39-3855Ifhlspsqtg and management of inpatientMorrow [facility] Work Phone: Start: 59-71-9468ehbmqgkqaxn encounterNON STAFF [facility] Work Phone: Start: 05-29-2023 End: 62-70-5376Cks-patient / Non-visitFiraugusta health Physician [facility] OutPt Work Phone: Start: 36-71-3641Gwoklh Michelle Melchor MD Work Phone: I [facility] Comment on above:Hyponatremia (Primary Dx)Start: 04-13-2023 End: 05-26-7836oaaswbupiqXHIYFD HERRINGFacility:FTMCStart: 04-13-2023 End: 45-96-1677Tth Drop offDANIEL MUÑOZ [facility] Start: 02-23-2023 End: 05-88-5808Eaw Drop offDANIEL MUÑOZ [facility] Start: 02-23-2023 End: 75-16-9011gqaeufstszMDBGBX HERRINGFacility:FTMCStart: 52-98-9032oqhjadaxyn DR LIO A HERRINGFacility:J9Zeiaf: 06-10-2022 End: 96-90-9458Pwuukmm encounter procedureElivesna Albarran DDS Work Phone: [facility] DentistryStart: 05-17-2022 End: 66-86-1709pxgleuycfvOK DANIEL A HERRINGFacility:R8Lsbec: 04-28-2022 End: 53-66-2537swcaaeupqaDL SONAL CARRERO .Facility:Y9Riemf: 87-82-8857Ihxtjb encounterMetroHealthStart: 05-08-2018 End: 06-76-0590Segogne encounter procedurePROVIDER NOT IN [facility] Procedures DateProcedureProcedure DetailPerforming ClinicianStart: 75-88-9648Pubbqn-up visitFollow-upKATHERINE H ROMPStart: 70-67-8820Mgfwn test visual color felipe Black DDS Work Phone: Start: 99-35-5866Zgvblc-up visitFollow-upCORIAnay Almazan KOVACHStart: 93-90-9268Zakppksfkdr observation [Identifier] in Cervix by Cyto Yvette MONTANEZ Work Phone: Start: 85-16-7880XWXO-CoV-2, Influenza & RSV (PCR)IMAN Amanda Work Phone: Start: 48-49-9974SN of facial bones with contrast Start: 32-57-2435Wrwrv culture for bacteria, including anaerobic screenAPRSherlyn Amanda Work Phone: Plan of Treatment DateCare ActivityDetailAuthorStart: 09-81-5487Skdkcaoq (RZV) Vaccine (1 of 2) Shingles (RZV) Vaccine (1 of 2)MetroHealthStart: 95-97-2652DLlM,Tdap and Td Vaccines (7 - Td or Tdap)DTaP,Tdap and Td Vaccines (7 - Td or Tdap)[facility] [employer] Money Management SystemStart: 79-83-6448Gphpcas vaccinationTetanus (Td or Tdap) Booster MetroHealthStart: 40-71-1047Zcfcwepvq for malignant neoplasm of cervixPap Smear [facility] Healthtart: 78-69-5945Ourbc BMI ScreeningAdult BMI Screening [facility]art: 75-53-2633Uryvtgl ScreeningTobacco Screening [facility]art: 13-92-5171Wvcan BMI ScreeningAdult BMI Screening [facility] SystemStart: 41-39-4882Ydoncwk ScreeningTobacco Screening [facility]art: 36-76-6968Dyvox BMI ScreeningAdult BMI Screening [facility]: 35-17-1016Mkuaybd ScreeningTobacco Screening [facility]: 24-61-0054Sxxxd BMI ScreeningAdult BMI Screening [facility]art: 08-57-9243Ixmxkux ScreeningTobacco Screening [facility]htart: 01-30-2025 End: 68-03-8077Ibadahj encounter mobybkhlj92/10/2025 9:10 AM EST Procedure Visit [facility] [address] [facility] [place] [address] Bhanu Charlton, DPM FACFAS [address] [place] [address] [facility] NMA PODStart: 37-47-7496Pktdzpacx vaccinationInfluenza Vaccine (#1)MetroHealthStart: 11-20-2024 End: 04-20-8672Ftgwiow encounter ycxqhlvum75/30/2025 11:00 AM EDT Office Visit [facility] [address], [place] [phone] Abby Bauman PA [address] [place] [phone] [facility] Surgical OncologyStart: 11-14-2024 End: 75-78-0902Dvqfocz encounter procedureNOMS NMA PODComment on above:Arrived Start: 11-06-2024 End: 20-89-4480Xfeoqkq encounter tucfoqcmy58/16/2025 9:40 AM EDT Procedure Visit [facility] [address] [facility] [place] [address] Bhanu Charlton, DPM FACFAS [address] [place], [place] [address] [facility] Start: 23-41-6697Xoxfplzqr vaccinationOhioHealth O'Bleness Hospitalca [facility] SystemStart: 10-17-2024 End: 55-53-1692Hcpztut encounter iiwqtrlnu87/27/2025 8:40 AM EDT Office Visit [facility] [address] [phone] Migdalia Mike, DIOGO [address] [place] [address] [facility] VIRAMONTESYStart: 10-08-2024 End: 18-18-6940Rssqxcwnw to same day surgery [facility] Ambulatory SurgeryComment on above:DENTAL RESTORATIONSStart: 10-08-2024 End: 84-85-5285PRQLZQ RESTORATIONSMetroHealthStart: 08-54-4818Wwzkqtqbnw hospital visit by physicianAv[facility] Ambulatory SurgeryStart: 10-08-2024 End: 63-91-6730Hemadch encounter /18/2025 6:30 AM EDT Procedure Visit [facility] [address] [place] [address] Og Grant, DDS [address] [place], [place] [phone] [facility] DentistryStart: 10-03-2024 End: 20-22-7027Hzymmlkg Bviknht8710/03/2024 9:30 AM EDT Clinical Support [facility] [address] [facility] [place] [address] Bhanu Charlton, DPM FACFAS [address] [place] [address] ArrivedNONC AD PODComment on above:ArrivedStart: 09-04-2024 End: 23-75-1001Kjxholj encounter /15/2025 10:00 AM EDT Office [facility] [address] [place] [phone] Linn Red MD [address] [place] [address] [facility] Obstetric[facility]/GynecologyStart: 08-27-2024 End: 48-20-8408Tzzgtqe encounter xmkvljmea27/07/2025 10:20 AM EDT Office Visit [facility] [place] [address] [place] [address] Valentina Mike PA [address] [place] [address] [facility] GOFFtart: 39-94-3174Y[facility]dyfNewark [facility] Start: 59-57-3787Anrdsqin identified in Urine by CultureBucyrus Community Hospitaltart: 08-21-2024 End: 01-40-8905Ckgofbni SupportNorthern Texas Foot & Ankle SpecialistsComment on above:ArrivedStart: 08-07-2024 End: 40-78-2094YV Breast duct - right Views W contrast intra ductMammography diagnostic unilateral right with CAD Imaging Routine Mastodynia, female Mass of right breast, unspecified quadrant Expected: 08/07/2024, Expires: 08/07/2025 [facility] Work Phone: Comment on above:Expected: 08/07/2024, Expires: 08/07/2025Start: 08-07-2024 End: 53-48-2440YV Breast - bilateral WO and W contrast IVMR bilateral breast with and without contrast with CAD Imaging Routine Mastodynia, female Mass of ri ght breast, unspecified quadrant Expected: 08/07/2024, Expires: 08/07/2025 [facility] SystemComment on above:Expected: 08/07/2024, Expires: 08/07/2025Start: 08-07-2024 End: 04-36-7909CY Breast - right limitedUltrasound breast limited right Imaging Routine Mastodynia, female Mass of right breast, unspecified quadrant Expected: 08/07/2024, Expires: 08/07/2025[facility] SystemComment on above:Expected: 08/07/2024, Expires: 08/07/2025Start: 08-07-2024 End: 25-68-4904Lhdvnll encounter procedureNOMS NMA PODComment on above:Arrived Start: 07-18-2024 End: 37-53-0399Xdtkpvf encounter procedureNOMS NMA PODComment on above:Arrived Start: 2024 End: 16-28-2457Wkdbvyw encounter /14/2025 10:20 AM EDT Office Visit [facility] [address] [facility] [place] [address] Bpkqp, Marc D, DPM FACFAS [address] [place] [address] ArrivedNOMS NMA PODComment on above:ArrivedStart: 06-04-2024 End: 14-97-7182Xpbajbp encounter riypiexeb74/14/2025 10:40 AM EDT Office Visit [facility] GARCIA [address] [place] [phone] Valentina Mike PA [address] [place], [place] [phone] ArrivedGHULAM GARCIAComment on above:ArrivedStart: 05-17-2024 End: 21-34-3200Afveorw encounter hatjncoik43/27/2025 8:40 AM EDT Office Visit [facility] GARCIA [address] [place] [address] Damien Jones NP [address] [place], [place] [id number] [facility] GOFFtart: 05-08-2024 End: 11-49-2177Wuuxeaa encounter trjiugffe57/18/2025 9:30 AM EDT Procedure Visit [facility] [address] [place] [address] Bhanu Charlton, DPM FACFAS [address] [place] [address] [facility] NMA PODStart: 02-29-2024 End: 94-14-5164Qumwzsm encounter procedureNOMS [facility] ROUTEComment on above:ArrivedStart: 02-28-2024 End: 43-68-6012Qizcjhx encounter procedureNOMS NMA PODComment on above:Arrived Start: 02-23-2024 End: 71-47-2213Hngthxn encounter wivzljfau17/02/2025 10:50 AM EST Procedure Visit [facility] [address] [place] [address] Sabra Frias DMD [address] [place] [address] [facility] Start: 02-01-2024 End: 39-86-2335Uyfhpks evaluation of patient and uownbc0302/01/2024 9:00 AM EST Nurse Visit [facility] Pre-Ad[facility] Testing [address] [place] [address] Penny Denton RN [address] [place], [place] [address]CbioiCflqvsAvita Health System [facility] Pre-Admission TestingStart: 12-15-2023 End: 46-04-7762Rqfxaqp encounter qsonpkubb96/24/2024 12:00 PM EDT Procedure Visit [facility] [address] [place] [address] Sabra Frias DMD [address] [place] [address] [facility] Start: 12-09-2023 End: 24-99-9124Jdolxkz encounter munuyhcko29/18/2024 12:40 PM EDT Office Visit [facility] [address] [place] [address] Tylerlizeth Ivory Gates, IMAN-ICING MAKER [address] [place] [address] ArrivedNOMS SWS DERMComment on above: ArrivedStart: 72-94-6121Uynagwfyx vaccinationInfluenza Vaccine (#1)[facility] Start: 10-27-2023 End: 00-07-1799Weqzkye encounter euqumkimf21/05/2024 9:30 AM EDT Office Visit [facility] [address] [place] [address] Case Melchor MD [address] [place] [phone] [facility]: 67-53-8628MOKKO-19 Vaccine ( season)COVID-19 Vaccine ( season)[facility]Start: 10-23-2023 COVID-19 Vaccine ( season)COVID-19 Vaccine ( season) [facility]HealthStart: 35-56-0381Bhqqteenv vaccinationMetroHealthStart: 05-20-7578OQ of head without contrastCT head/brain wo [facility] Start: 74-88-3572KK Unspecified body region WO contrastKettering Health Greene Memorialtart: 80-44-9920Xyfarntfnn radiography of abdomenKettering Health Greene Memorialtart: 39-16-9870Yojgsprc identified in Urine by Culture [facility] Memorialtart: 07-28-2023 End: 46-37-1537Elafikg encounter afatlikkx26/06/2024 2:30 PM EDT Office Visit [facility] [address] [place] [address] Case Melchor MD [address] [place] [address] [facility] FremontStart: 07-28-2023 End: 74-81-8985VquvlxtzCqtxiril Lab Routine Hyponatremia Expected: 07/28/2023 (Approximate), Expires: 07/20/2024[facility] Work Phone: Comment on above:Expected: 07/28/2023 (Approximate), Expires: 07/20/2024Start: 07-28-2023 End: 16-96-2071Dmtrooekop of Serum or PlasmaOsmolality Lab Routine Hyponatremia Expected: 07/28/2023 (Approximate), Expires: 07/20/2024[facility] Comment on above:Expected: 07/28/2023 (Approximate), Expires: 07/20/2024Start: 07-28-2023 End: [id number], urineOsmolality, urine Lab Routine Hyponatremia Expected: 07/28/2023 (Approximate), Expires: 07/20/2024[facility] Comment on above:Expected: 07/28/2023 (Approximate), Expires: 07/20/2024Start: 07-28-2023 End: [id number] with ReflexTSH with Reflex Lab Routine Hyponatremia Expected: 07/28/2023 (Approximate), Expires: 07[facility]/20[facility]Expected: 07/28/2023 (Approximate), Expires: 07/20/2024Start: 07-28-2023 End: [id number] [Mass/volume] in Serum or PlasmaUric acid Lab Routine Hyponatremia Expected: 07/28/2023 (Approximate), Expires: 07/20/2024[facility]Expected: 07/28/2023 (Approximate), Expires: 07/20/2024Start: 06-09-2023 End: 92-29-0347Gcjsdqh encounter tqytigsqz82/18/2024 10:00 AM EDT Office Visit [facility] [address] [place] [address] [facility]/GynecologyStart: 71-19-5238FqrttvvzxKettering Health Greene Memorialtart: 48-19-3899GemktjteaKettering Health Greene Memorialtart: 00-22-0713NhcyevbhhKettering Health Greene Memorialtart: 97-23-0517GbgcgyfopKettering Health Greene Memorialtart: 50-43-3215PoqnodcvtKettering Health Greene Memorialtart: 95-89-8607ZcudyfsqvKettering Health Greene Memorialtart: 91-07-0754ExcdotpztKettering Health Greene Memorialtart: 06-01-2023 End: 25-73-3663IhbrxljbqKettering Health Greene Memorialtart: 74-86-2243IptzqqxemKettering Health Greene Memorialtart: 11-96-6089Gvztdvfimqfpn metabolic 2000 panel - Serum or PlasmaKettering Health Greene Memorialtart: 05-30-2023 End: 13-25-7378XfruwmwheKettering Health Greene Memorialtart: 92-66-8889Kfvyycct admissionKettering Health Greene Memorialtart: 31-16-6166GkcgcanglKettering Health Greene Memorialtart: 19-48-8903Rmtaowcs identified in Blood by CultureKettering Health Greene Memorialtart: 43-95-8202Qoqvu culture for bacteria, including anaerobic screenBlood CultureKettering Health Greene Memorialtart: 05-29-2023 [facility]tart: 94-45-6375IFFAS-19 Vaccine ( season)COVID-19 Vaccine ()[facility]: [facility] End: 67-02-6127Kldrhgj encounter nluojlmdp04/13/2023 Procedure Visit Dentistry Holli Nguyen, DDS [address] [place] [address] [facility] DentistryStart: 11-21-2021 Influenza vaccinationInfluenza Vaccine (#1)[facility]: 25-18-2051EWXKP-19 Vaccine (4 - Booster for Pfizer series)COVID-19 Vaccine (4 - Booster for Pfizer series)[facility]HealthStart: 58-42-2147Ykcxwqnhf for malignant neoplasm of cervix [facility] HealthcareStart: 42-72-6174TVS Vaccine (optional start 27-45 years)HPV Vaccine (optional start 27-45 years)[facility]HealthStart: 28-82-0404Gllenz wellness visitAnnual Wellness Visit (G0438)[facility]HealthStart: 19-88-7237Dsfqomayu for malignant neoplasm of cervixPap SmearMetroHealthStart: 76-00-7391WMoL,Tdap and Td Vaccines (1 - Tdap)DTaP,Tdap and Td Vaccines (1 - Tdap)[facility] SystemStart: 03-50-2208Onoqxhesj A (HAV) Vaccine (optional start 19+ years) Hepatitis A (HAV) Vaccine (optional start 19+ years)[facility]HealthStart: 2004 Adult BMI Follow Up PlanAdult BMI Follow Up PlanProAdena Health System SystemStart: 72-79-1285Napds BMI ScreeningAdult BMI ScreeningProAdena Health System SystemStart: 99-48-8166Cbubrcrbq C screeningHepatitis C AntibodyMetroHealthStart: 2001 HIV screeningHIV TestMetroHealthStart: 08-89-3581Xypyrt wellness visitAnnual Wellness Visit (G0438)[facility]HealthStart: 01-33-7501Mkjuipitaa ScreeningDepression ScreeningProAdena Health System SystemStart: 15-36-7607Ydncqwa ScreeningTobacco ScreeningProAdena Health System SystemStart: 59-04-0105Bipxampuj for malignant neoplasm of breastMetroHealth End: 59-01-3769Fixse metabolic 2000 panel - Serum or PlasmaBasic Metabolic Panel Lab Routine Hyponatremia 1 Occurrences starting 05/25/2023 until 05/24/2024[facility] Work Phone: Comment on above:1 Occurrences starting 05/25/2023 until 05/24/2024 End: 50-29-4661Tassr metabolic 2000 panel - Serum or PlasmaBASIC METABOLIC PANEL Lab Routine Pre-op evaluation 1 Occurrences starting 09/21/2024 until 09/22/19 26[facility]ITALOggiFinogi SYSTEM Work Phone: Comment on above:1 Occurrences starting 09/21/2024 until 09/21/2025 End: 39-11-7762JYZ panel - Blood by Automated countCBC without diff Lab Routine Hyponatremia 1 Occurrences starting 05/25/2023 until 05/24/2024ProAdena Health System SystemComment on above:1 Occurrences starting 05/25/2023 until 05/24/2024BC panel - Blood by Automated countCOMPLETE BLOOD COUNT Lab Routine Pre-op evaluation Ordered: 09/21/2024MetroHealthComment on above:Ordered: 09/21/2024 Cefuroxime free [Mass/volume] in Serum or PlasmaMercy Health Clermont HospitalDENTAL RESTORATIONSDENTAL RESTORATIONS Routine scheduled CariesMetroHealth End: 92-60-0864Wlogwxcrw [Mass/volume] in Serum or PlasmaMagnesium Lab Routine Hyponatremia 1 Occurrences starting 05/25/2023 until 05/24/2024ProAdena Health System SystemComment on above:1 Occurrences starting 05/25/2023 until 05/24/2024Patient EducationConstipation, Adult (DC) Headache, Adult (DC)[facility] Work Phone: Patient referralMorrow County Hospital Ctr Work Phone: End: 81-26-5954Hlppqzwyi [Mass/volume] in Serum or PlasmaPhosphorus Lab Routine Hyponatremia 1 Occurrences starting 05/25/2023 until 05/24/2024ProAdena Health System SystemComment on above:1 Occurrences starting 05/25/2023 until 05/24/2024 End: 38-03-8255Rlsdmfd creat ratioProtein creat ratio Lab Routine Hyponatremia 1 Occurrences starting 05/25/2023 until 05/24/2024ProAdena Health System SystemComment on above:1 Occurrences starting 05/25/2023 until 05/24/2024Sodium [Moles/volume] in Serum or PlasmaSodium Lab Routine Hyponatremia Ordered: 02/29/2024[facility] Work Phone: comment on above:Ordered: 02/29/2024 End: 53-99-7223Ohiccy, urine, randomSodium, urine, random Lab Routine Hyponatremia 1 Occurrences starting 07/28/2023 until 07/20/2024[facility] HospitalComment on above:1 Occurrences starting 07/28/2023 until 07/20/2024 End: 05-78-1069GdcxcxmnhiKyaactrclz Lab Routine Hyponatremia 1 Occurrences starting 05/25/2023 until 05/24/2024[facility] HospitalComment on above:1 Occurrences starting 05/25/2023 until 05/24/2024Urine Creatinine,RdmUrine Creatinine,Rdm Lab Routine Hyponatremia Ordered: 07/28/2023[facility] HospitalComment on above:Ordered: 07/28/2023 End: 28-19-3579Nrnlu test visual color cmprsn methsURINE HCG-IN OFFICE Lab Routine One time for 1 Occurrences starting 12/15/2023 until 12/15/2023[facility]ITALOggiFinogi SYSTEM Work Phone: comment on above:One time for 1 Occurrences starting 12/15/2023 until 12/15/2023 Immunizations Immunization DateImmunizationNotesCare TgebclavZkxvuwxe32-12-7185xvuoimzqg virus vaccine, unspecified formulationIvory NAPOLES Work Phone: [facility] InstituteQmwnpkmfcv56-17-5757bhkbpjcbw virus vaccine, unspecified formulationCase Melchor MD Work Phone: [facility] HospitalJdlszp99-13-6666rxvgdetzt, injectable, quadrivalent, preservative uzhaPjtqlHnaduk12-17-0317ntplcglsa virus vaccine, unspecified wvmmalirwifCpmjnMuvtkw52-75-5186Anzkxz (12+ yrs) SARS-COV-2 (COVID-19) vaccine, mRNA, spike protein, LNP, pres. free, 30 mcg/0.3mL dose (VOC=431)FshqlJkexzq85-35-6786Addbgs (12+ yrs) SARS-COV-2 (COVID-19) vaccine, mRNA, spike protein, LNP, pres. free, 30 mcg/0.3mL dose (IKE=043)[facility] 88-71-5433scpvkfjxf, injectable, quadrivalent, preservative freeKnox Community Hospital 59-24-1766hkorhqu toxoid, reduced diphtheria toxoid, and acellular pertussis vaccine, ukssnszwVloofIgdacl01-85-0941cxhldkbau, injectable, quadrivalent, preservative lklxNgiabJarghk54-29-1220fnyujeeeq, injectable, quadrivalent, contains lwiwebjsxlncDtwwyEvatmm98-47-3286phnpkdshf, injectable, quadrivalent, preservative plfyAmnboFwccvj70-18-4202acvzlihvy, seasonal, injectableMetroKettering Health – Soin Medical Center 85-72-1211fqtlajfaghnxb polysaccharide (groups A, C, Y and W-135) diphtheria toxoid conjugate vaccine (MCV4P)BrpavZsemty56-76-6968SK(adult) unspecified msoxqleziukIojsuThcurw67-76-0537vyeuthmyz B vaccine, pediatric or pediatric/adolescent xpgcwyVtcwaSmfnnq83-94-7607teyyyewam B vaccine, pediatric or pediatric/adolescent ggdtdjGwlnrWxmqjr93-54-4902dfyfmivfn B vaccine, pediatric or pediatric/adolescent doxmqzWghvjKligtr80-92-6143gdboerd, mumps and rubella virus ezwcikzAxuarIrjksm66-22-1838RN(adult) unspecified formulation KbehiLcyvqx33-24-0107cymezkwgb poliovirus vaccine, live, oralMetroKettering Health – Soin Medical Center 95-21-6272lvrqpmcxsm, tetanus toxoids and pertussis enlwptlCxnilLkgzak87-32-9603 trivalent poliovirus vaccine, live, mlxmByvveHhsrfc70-87-6584vpxviexcyhz influenzae type b vaccine, conjugate unspecified formulationKnox Community Hospital 61-32-5599edrxlzx, mumps and rubella virus gtgxzveDsyqvLwoidj75-72-1551 diphtheria, tetanus toxoids and pertussis vjlcgdvCcfxkIfjuwh39-36-7342 diphtheria, tetanus toxoids and pertussis zhzqouoRbvviPcmxlu77-10-4540ljpajmbcu poliovirus vaccine, live, ocnpTuysbSkayzq85-40-1749xlgrqzmklr, tetanus toxoids and pertussis aaszqjzPcyhhAmhixw71-34-5128hterwkjgc poliovirus vaccine, live, oralMetroHealth Payers DatePayer CategoryPayerPolicy [id number] --Stand AloneDENTAL-MEDICAID [id number] 2019Medicaid [id number] 2008Medicare FFEDICARE [id number] 2007Medicare [id number] 2..1.563733.3.57[id number] 2..1.755871.3.57[id number] 2..1.170671.3.579.2.87378-07-6440Bxvcmvj65494225 2..1.369609.3.579.[id number] 2..1.065747.3.579.2.82345-10-6332Geyrrml538394824 2.0.1.515873.3.579.2.756542-55-8681Uosieeb422486812 2..1.499647.3.579.2.806810-13-5999Nrhjorh106080019 2.16.840.1.972836.3.579.2.495716-37-7601Qvcpkec418178279 2.16.840.1.454487.3.579.2.645073-46-7462Ejwlyop397419122 2.16.840.1.705623.3.579.2.506553-73-5602Vdtkkvs956176596 2.16.840.1.741244.3.579.2.98084-42-4863Rrqduuw762191249 2.16840.1.813272.3.579.2.97406-63-7028Ysfblkt755665203 2.16840.1.845754.3.579.2.80256-96-8422Zapbqkb789144903 2.840.1.851264.3.579.2.87467-19-4564Iosakis334170371 2.16840.1.719098.3.579.2.61517-87-1207Nqhpnco192210470 2.16840.1.179073.3.579.2.33171-06-2059Yoqhidb097755474 2.16840.1.429325.3.579.2.94830-72-6843Ppuhplw829035850 2.840.1.868522.3.579.2.65871-28-3953Pbsqxdj84645486 2.16840.1.485242.3.579.2.341278-80-5474Wokcafe61061598 2.16840.1.501174.3.579.2.256553-47-4969Zzbujde16653465 2.16840.1.937242.3.579.2.651642-14-5639Juonrhy54155086 2.16.840.1.442589.3.579.2.964328-87-6090Wqehzca8048042 2.16.840.1.120479.3.579.2.574673-23-6879Jexkmze2379331 2.16.840.1.508794.3.579.2.493725-67-1292Zbqoidq7898572 2.16.840.1.721355.3.579.2.800271-48-8913Pwwechc5002679 2.16.840.1.201724.3.579.2.102804-22-2449Gdplibc6368154 2.16.840.1.906247.3.579.2.254864-39-9864Vaxuxzx1236669 2.16.840.1.843052.3.579.2.131735-85-0034Siqqyes8754888 2.16.840.1.246687.3.579.2.658170-35-4607Aflmija388653282 2.16.840.1.638860.3.579.2.948739-48-8208Smyptzn133711397 2.16.840.1.464340.3.579.2.1286 [id number] 1960Medicare [id number] Social History DateTypeDetailFacilityStart: 06-13-2020 End: 68-05-2317Rmhsbdc smoking status NHISNever smoked tobaccoMetroHealth Work Phone: Start: 06-13-2020 End: 1986Hstsgaa use and exposureSmokeless tobacco non-userMetroHealth Start: 07-15-2020 End: 36-25-6074Emxzkhh intakeLifetime non-drinker (finding)[facility]roHealthStart: 82-80-2167Ighotsd SDOH Alcohol Ragevssuz1VqbspZsxwiwNzpha: 03-89-0237Wsg Assigned At BirthNot on fileMetroKettering Health – Soin Medical CenterTobacco smoking statusNo Smoking Status EnteredKindred Hospital Limatart: 07-15-2020 End: 72-95-9743Sdv Assigned At [facility] HospitalFeNationwide Children's Hospitaltart: 18-76-3028Dbp Assigned At [facility] Hospitaltart: 72-16-8266Brbrjvh smoking status NHISUnknown if ever smokedKettering Health Greene Memorialtart: 07-15-2020 End: 22-04-1243Xztsufv of Social functionMetroHealthStart: 01-12-2012 End: 22-91-2241UdeVvyalp (finding)MetroHealthStart: 02-01-2024 End: 96-46-9178Htxmnpy of drug misuse behaviorHas never misused drugs (situation)MetroHealthNEGATED: Highlighted rowMercy Health Clermont Hospital Goals DatePatient GoalDesired Activity/State Functional Status SuikEgiuclpnbtMdzznaMxpfnclf54-76-2046Gwfbectzxi statusPatient at [facility] Work Phone: Mental Status ZdfiQuaiialdqfPyowxcXugmjhfh56-74-4731Xkqnkuxed functionCognitive Status [facility] at [facility] Work Phone: Clinical Notes 06-10-2022 to 11-20-2024 Note Date & YgdzZjjxNxwiksfq07-47-0400 Miscellaneous Notes* Telephone Encounter - Luz Marina Nunez LPN - 11/20/2024 12:56 PM EDT [facility] called request last office note to be faxed to [phone]. Office note faxed. documented in this encounterPremier Health [facility] Hospital09-30-2025 Telephone encounter Note* Telephone Encounter - Luz Marina Nunez LPN - 11/20/2024 12:56 PM EDT [facility] called request last office note to be faxed to [phone]. Office note faxed. [email or web address] History of Present illness Narrative* EDENILSON Morton [...] form dated (11/20/2024). HPI (08/09/2024) Eve Haque ICING MAKER: Migdalia Connelly is a 39 y.o. female who presents with right breastchanges. History obtained from chart reviewed, additional information provided primarily by the facility staff present with her but patient is able to offer some input as well. Patient was seen by APPLICATIONS DEVELOPER on 08/07/24 with complaints of right breast and nipple tenderness/inversion that started on 08/02. This progressed t/o the course of several days to include swelling, firmness, redness and warmth. Clindamycin was initiated on 08/05. BDM, U/S, and breast MRI ordered. She is scheduled for BDM and U/S on 08/28 at [place]. Patient does note some improvement since starting Clindamycin. Oil Rigger feels redness is improved compared to earlier [...] stress disorder) Seizure disorder ([facility] Past Surgical History Past Surgical History: Procedure [...] PA-C [facility] EDENILSON Morton 11/20/24 1118 documented in this encounterOhioHealth O'Bleness HospitalKingdee09-24-2025 History of Present illness Narrative* Bhanu Charlton [...] deficit disorder with hyperactivity 05/25/2012 Bipolar disorder ([facility]) 05/04/2023 Essential hypertension 05/04/2023 Seizure disorder ([facility]) 05/04/2023 Pure hypercholesterolemia 05/04/2023 Anger reaction 07/14/2023 Convulsion ([facility]) 07/14/2023 Alteration of consciousness 07/14/2023 Development delay 07/14/2023 Resolved Ambulatory Problems Diagnosis Date Noted No Resolved Ambulatory Problems Past Medical History: Diagnosis Date ADHD (attention deficit hyperactivity disorder) Astigmatism Convulsions ([facility]) Developmental delay GERD (gastroesophageal reflux disease) Hypercholesterolemia Hyperopia Hypertension Impulse control disorder Intellectual disability Mental disorder Mood disorder OCD (obsessive compulsive disorder) Osteopenia PTSD (post-traumatic stress disorder) Seizures ([facility]) Medications: Current Outpatient Medications: acetaminophen (Tylenol) 325 [...] subungual debris. They were painful to palpation 68793 on the right 44153 on the left. VASC: DP /PT were nonpalpable bilateral. Capillary refill time < 3 seconds Digits 1-5 bilateral NEURO: [place] Ami 5.07 monofilament was intact B/L. Vibratory [...] 10. DAY Laura documented in this encounterFreeman Heart InstituteGhbwhdpyqo40-62-4175 Hospital Discharge instructions* Discharge Instructions* Yady Lewis RN - 10/08/2024 9:34 AM EDT Basic Extraction Instructions - [facility] - Department of Dentistry Biting on [...] was done to speak with a dentist. [facility] [phone]; [facility] [phone];and Bernie [phone]. On the weekends or evenings you can contact the Dental Resident medication care manager at [phone] and ask the casting wheel operator to page the Dental Resident. HELPING [...] you may contact your physician by calling [phone] and asking for the resident medication care manager for DENTAL service. Special Care Needs: [...] very uncomfortable and can t urinate, call [phone] or come to the emergency room. A [...] going instructions. Rev. 09/26 documented in this kaxgnprkeMzonhSzyzeq46-53-7240 Surgery Postoperative evaluation and management note* Brief Operative Note - Risa Black DDS - 10/08/2024 8:06 AM EDT Brief Operative Note [facility] OR 3 Migdalia Connelly 39 year old female Surgical Contact Serial Number: [id number] Preoperative Diagnosis: Pre-op Diagnosis * Caries [K02.9] [...] Posttraumatic stress disorder Procedures: Full mouth xrays [01642] Comprehensive exam [88783] Prophy [38171] Fluoride application [77933] Restorative [02784] Surgical extractions [67670] Surgeon(s): Surgeon(s): Og Grant DDS Staff: Food And Beverage Order Clerk Nurse: Rosanna Monroe RN Dental Resident: Risa Black DDS Anesthesia: General Anesthesiologist: Kedar Moralez MD Mud Temperer: Randi Rico MD; Enio Wells MD Specimen(s): [...] Grant DDS at 10/08/2024 9:49 AM EDT GllpzZapmaw67-55-6394 Surgery Surgical operation note* OP Note - Risa Black DDS - 10/08/2024 8:06 AM EDT Operative Note [facility] OR 3 Migdalia Connelly 39 year old female Surgical Contact Serial Number: [id number] Preoperative Diagnosis: Pre-op Diagnosis * Caries [K02.9] [...] Posttraumatic stress disorder Procedures: Full mouth xrays [22824] Comprehensive exam [43098] Prophy [37951] Fluoride application [22915] Restorative [94795] Surgical extractions [75712] Surgeon(s): Surgeon(s): Og Grant DDS Staff: Food And Beverage Order Clerk Nurse: Rosanna Monroe RN Dental Resident: Risa [...] Grant DDS at 10/08/2024 9:50 AM EDT EryswJbfzcs71-50-4483 Miscellaneous Notes* Brief Operative Note - Risa Black DDS - 10/08/2024 8:06 AM EDT Brief Operative Note P[facility] OR 3 Migdalia Connelly 39 year old female Surgical Contact Serial Number: [id number] Preoperative Diagnosis: Pre-op Diagnosis * Caries [K02.9] [...] Posttraumatic stress disorder Procedures: Full mouth xrays [30831] Comprehensive exam [90192] Prophy [22830] Fluoride application [97027] Restorative [95652] Surgical extractions [53798] Surgeon(s): Surgeon(s): Og Grant DDS Staff: Food And Beverage Order Clerk Nurse: Rosanna Monroe RN Dental Resident: Risa Black DDS Anesthesia: General Anesthesiologist: Kedar Moralez MD Mud Temperer: Randi Rico MD; Enio Wells MD Specimen(s): [...] year old female Surgical Contact Serial Number: [id number] Preoperative Diagnosis: Pre-op Diagnosis * Caries [K02.9] [...] Posttraumatic stress disorder Procedures: Full mouth xrays [08399] Comprehensive exam [75349] Prophy [64806] Fluoride application [03991] Restorative [77994] Surgical extractions [42751] Surgeon(s): Surgeon(s): Og Grant DDS Staff: Food And Beverage Order Clerk Nurse: Rosanna Monroe RN Dental Resident: Risa [...] 10/08/2024 9:50 AM EDT documented in this dlkmxfgizOixvbAadzrj07-88-3076 History of Present illness Narrative* Og Grant [...] Note Type: OP Note Status: Cosign Needed Swing Grinder: Risa Black DDS (Resident) Cosign Required: Yes Operative Note [facility] OR 3 Migdalia Connelly 39 year old female Surgical Contact Serial Number: [id number] Preoperative Diagnosis: Pre-op Diagnosis * Caries [K02.9] [...] Posttraumatic stress disorder Procedures: Full mouth xrays [98871] Comprehensive exam [14926] Prophy [97186] Fluoride application [56064] Restorative [87322] Surgical extractions [46243] Surgeon(s): Surgeon(s): Og Grant DDS Staff: Food And Beverage Order Clerk Nurse: Rosanna Monroe RN Dental Resident: Risa [...] 2024 at 9:50:51 AM ----- ----- Provider: [id number] Ed Obrien DDS -- Clinic: [facility] ----- documented in this arrpsviriNvdziCfqjmt96-03-9996 Telephone encounter Note* Telephone Encounter - Megha Sanchez RN - 10/03/2024 10:[address] Chatman made aware that CBC and CMP from 05/03/24 [facility]. Addendum: Dr. Chatman states that he has reviewed labs and results are acceptable on 10/04 via secureXOJETt. FizbzVesosb47-32-9374 Miscellaneous Notes* Telephone Encounter - Megha Sanchez RN - 10/03/2024 10:[address] Chatman made aware that CBC and CMP from 05/03/24 received from [facility] and [facility] [employer]. documented in this smbiohkwwSnslmVkqaqt24-89-1393 Miscellaneous Notes* Telephone Encounter - Megha Sanchez RN - 10/03/2024 10:[address] Chatman made aware that CBC and CMP from 05/03/24 [facility]. Addendum: Dr. Chatman states that he has reviewed labs and results are acceptable on 10/04 via securechat. documented in this kxatfisddSkawtZlflwp07-10-1771 History of Present illness Narrative* Bhanu Charlton, [...] < 3 seconds Digits 1-5 bilateral NEURO: [place] Ami 5.07 monofilament was intact B/L. Vibratory [...] Charlton DPM FACFAS documented in this encounterFreeman Heart InstituteZikjpysffd73-98-5[address] Velez for 10/08 dental procedure and scanned into [facility]08-08-2025 Telephone encounter Note* Telephone Encounter - Megha Sanchez RN - 09/28/2024 3:42 PM EDT Anesthesia consent obtained by Dr. Velez for 10/08 dental procedure and scanned into [facility]. DtrgfJjzyrl95-89-0834 Miscellaneous Notes* Telephone Encounter - Megha Sanchez RN - 09/28/2024 3:42 PM EDT Anesthesia consent obtained by Dr. Velez for 10/08 dental procedure and scanned into [facility]. 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 [...] pending : at baseline Glenn Chatman MD [phone] [1] Allergies Allergen Reactions Abilify Amoxicillin Depakote [Valproic Acid] Per OSH H+P 08/2018 Food Peterson Slaw Metyrosine Moban [Molindone] Nubain [Nalbuphine] Sympathomimetics Vicks 44 Cough Relief [Dextromethorphan Hbr] [2] Past Medical History: Diagnosis Date Attention deficit hyperactivity disorder (ADHD) 05/25/2012 Attention deficit disorder with hyperactivity Caries 09/05/2018 Added automatically from request for surgery [id number] Constipation Per OSH H+P 08/2018 Dental decay 08/26/2016 Added automatically from request for surgery [id number] Developmental delay Per OSH H+P 08/2018 Hormone [...] DENTAL RESTORATIONS; Surgeon: Bhavin Valdovinos DDS; Location: [facility]; Service: Dental DENTAL RESTORATIONS N/A 09/15/2018 Procedure: DENTAL RESTORATIONS; Surgeon: Og Grant DDS; Location: [facility] Surgery [place]; Service: Dental DENTAL RESTORATIONS Bilateral 07/14/2020 Procedure: DENTAL RESTORATIONS; Surgeon: Og Grant DDS; Location: [facility] Surgery [place]; Service: Dental [4] Social History Tobacco Use Smoking Status Never Smokeless Tobacco Never documented in this d[id number] History of Present illness Narrative* Linn Red [...] mammogram and ultrasound results with patient and medication care manager. Discussed how the patient has been feeling since she finished her antibiotics. Discussed the patients skin picking could bethe source of infection. Advised to keep appointment with breast clinic. Recommend yearly mammograms. FOREST CLEMENTE 09/04/24 1046 LINN RED MD documented in this encounterOhioHealth O'Bleness HospitalBUMP Network [facility] HospitalZohtul93-59-1844 History of Present illness Narrative* Bhanu Charlton [...] deficit disorder with hyperactivity 05/25/2012 Bipolar disorder ([facility]) 05/04/2023 Essential hypertension 05/04/2023 Seizure disorder ([facility]) 05/04/2023 Pure hypercholesterolemia 05/04/2023 Anger reaction 07/14/2023 Convulsion ([facility]) 07/14/2023 Alteration of consciousness 07/14/2023 Development delay 07/14/2023 Resolved Ambulatory Problems Diagnosis Date Noted No Resolved Ambulatory Problems Past Medical History: Diagnosis Date ADHD (attention deficit hyperactivity disorder) Astigmatism Convulsions ([facility]) Developmental delay GERD (gastroesophageal reflux disease) Hypercholesterolemia Hyperopia Hypertension Impulse control disorder Intellectual disability Mental disorder Mood disorder OCD (obsessive compulsive disorder) Osteopenia PTSD (post-traumatic stress disorder) Seizures ([facility]) Medications: Current Outpatient Medications: acetaminophen (Tylenol) 325 [...] < 3 seconds Digits 1-5 bilateral NEURO: [place] Am[place] 5.07 monofilament was intact B/L. Vibratory [...] 1month DAY Laura documented in this encounterFreeman Heart [id number] History of Present illness Narrative* Eve Haque, TRAINING AND DEVELOPMENT COORDINATOR-ICING MAKER - 08/09/2024 9:30 AM EDT Images from the original note were not included. 08/09/2024 DIAGNOSIS: Migdalia Connelly is a 39 y.o. female who [facility] for evaluation and recommendations regarding a right breast mass. HISTORY OF PRESENT ILLNESS: iMgdalia Connelly is a 39 y.o. female who presents with right breast changes. History obtained from chart reviewed, additional information provided primarily by the facility staff present with her but patient is able to offer some input as well. Patient was seen by APPLICATIONS DEVELOPER on 08/07/24 with complaints of right breast and nipple tenderness/inversion that started on 08/02. This progressed t/o the course of several days to include swelling, firmness, redness and warmth. Clindamycin was initiated on 08/05. BDM, U/S, and breast MRI ordered. She is scheduled for BDM and U/S on 08/28 at [place]. Patient does note some improvement since starting Clindamycin. Oil Rigger feels redness is improved compared to earlier [...] medications, and allergies have been reviewed in [facility]. PAST MEDICAL HISTORY: Past Medical History: [...] care provider present. Spoke with staff at [facility] - patient will be worked in today for BD and U/S. Will await results to determine next steps, as appropriate. Continue antibiotic course as advised. Follow up pending results of testing. The patient understands and agrees with the plan as discussed. All questions answered. Eve Haque CNP [facility] Total time spent was 39 minutes: Preparing to see the patient (e.g., review of tests) Obtaining and/or reviewing separately obtained history Performing a medically appropriate examination and/or evaluation Counseling and educating the patient/family/caregiver Ordering medications, tests, or procedures Referring and communicating with other health cardiac care nurse (not separately reported) Documenting clinical information in the electronic or other health record Independently interpreting results (not separately reported) and communicating results to the patient/family/caregiver YESIKA Armstrong 08/09/24 1711 documented in this encounterPremier Health Miami [facility]06-17-2025 History of Present illness Narrative* Linn Red [...] mammogram. Discussed follow up care with patients medication care manager who believes she will tolerate a mammogram, she states if CT is needed she may need some sedation. Mammogram, ultrasound, MRI, and breast specialist requisition provided. FU 4-6WKS MD DAMON MILLER, [facility] Audnrea Leis 08/07/24 1447 Aundrea Leis 08/07/24 1458 documented in this encounterPremier Health Miami Valley Hospital06-17-2025 History of Present illness Narrative* Bhanu Charlton [...] (HCC) 05/04/2023 Essential hypertension 05/04/2023 Seizure disorder ([facility]) 05/04/2023 Pure hypercholesterolemia 05/04/2023 Anger reaction 07/14/2023 Convulsion ([facility]) 07/14/2023 Alteration of consciousness 07/14/2023 Development delay 07/14/2023 Resolved Ambulatory Problems Diagnosis Date Noted No Resolved Ambulatory Problems Past Medical History: Diagnosis Date ADHD (attention deficit hyperactivity disorder) Astigmatism Convulsions ([facility]) Developmental delay GERD (gastroesophageal reflux disease) Hypercholesterolemia [...] subungual debris. They were painful to palpation 94775 on the right 46561 on the left. VASC: DP /PT were nonpalpable bilateral. Capillary refill time < 3 seconds Digits 1-5 bilateral NEURO: [place] Ami 5.07 monofilament was intact B/L. Vibratory [...] modifications she will be going to an inspector optical instrument to have new shoes purchase follow up 2 weeks for reexamine. DAY Laura documented in this encounterFreeman Heart [id number] History of Present illness Narrative* DAY Laura [...] deficit disorder with hyperactivity ([facility]) 05/25/2012 Bipolar disorder 05/04/2023 Essential hypertension ([facility]) 05/04/2023 Seizure disorder ([facility]) 05/04/2023 Pure hypercholesterolemia ([facility]) 05/04/2023 Anger reaction 07/14/2023 Convulsion ([facility]) 07/14/2023 Alteration of consciousness 07/14/2023 Development delay 07/14/2023 Resolved Ambulatory Problems Diagnosis Date Noted No Resolved Ambulatory Problems Past Medical History: Diagnosis Date ADHD (attention deficit hyperactivity disorder) ([facility]) Astigmatism Convulsions ([facility]) Developmental delay GERD (gastroesophageal reflux disease) Hypercholesterolemia ([facility]) Hyperopia Hypertension ([facility] Impulse control disorder ([facility]) Intellectual disability ([facility]) Mental disorder Mood disorder ([facility]) OCD (obsessive compulsive disorder) ([facility]) Osteopenia PTSD (post-traumatic stress disorder) ([facility]) Seizures ([facility]) Medications: Current Outpatient Medications: acetaminophen (Tylenol) 325 [...] p.r.n. DAY Laura documented in this encounterFreeman Heart [id number] History of Present illness Narrative* DAY Laura [...] disorder 05/04/2023 Essential hypertension ([facility]) 05/04/2023 Seizure disorder ([facility]) 05/04/2023 Pure hypercholesterolemia ([facility]) 05/04/2023 Anger reaction 07/14/2023 Convulsion ([facility]) 07/14/2023 Alteration of consciousness 07/14/2023 Development delay 07/14/2023 Resolved Ambulatory Problems Diagnosis Date Noted No Resolved Ambulatory Problems Past Medical History: Diagnosis Date ADHD (attention deficit hyperactivity disorder) ([facility]) Astigmatism Convulsions ([facility]) Developmental delay GERD (gastroesophageal reflux disease) Hypercholesterolemia ([facility]) Hyperopia Hypertension ([facility]) Impulse control disorder ([facility]) Intellectual disability ([facility]) Mental disorder Mood disorder ([facility]) OCD (obsessive compulsive disorder) ([facility]) Osteopenia PTSD (post-traumatic stress disorder) ([facility]) Seizures ([facility]) Medications: Current Outpatient Medications: acetaminophen (Tylenol) 325 [...] < 3 seconds Digits 1-5 bilateral NEURO: [place] Ami 5.07 monofilament was intact B/L. Vibratory [...] Charlton DPM FACBART documented in this encounterFreeman Heart [id number] History of Present illness Narrative* Zaid Joshua [...] nursing note reviewed. Exam conducted with a manager semiconductor present. Constitutional: General: She is not in [...] or PRN. DAMON MIKE CMA - TARIK Yaets 06/13/24 2:12 PM TARIK Leblanc 06/13/24 1415 documented in this encounterPremier Health [facility] Hospital04-14-2025 History of Present illness Narrative* EDENILSON Rush - 06/04/2024 10:40 AM EDT Images from the original note were not included. Chief Complaint Patient presents with Seizures Subjective Migdalia Connelly, 38 y.o., female SEIZURE -resident at [place], here today with house aide -labs to [...] OCD (obsessive compulsive disorder) ([facility]) Osteopenia PTSD (post-traumatic stress disorder) ([facility]) Seizures ([facility]) No past surgical history on file. No [...] , wrist extensors , wrist flexor , public health sanitarian strength 5/5. LUE Strength deltoid , biceps , triceps , wrist extensors , wrist flexor , public health sanitarian strength 5/5. RLE Strength illopsoas, quadriceps, tibialis [...] 134 (L). LFTs (WNL) Routine EEG at [facility] in March 2018: Normal MRI of the brain w and w/o contrast at [facility] on 10/18/13 and 06/30/16: Stable right [...] and return instructions documented in this encounterFreeman Heart [id number] History of Present illness Narrative* Damien Jones [...] disorder (CMS/HCC) Intellectual disability ([facility]) Mental disorder Mental retardation, mild Mood disorder ([facility]/HCC) OCD (obsessive compulsive disorder) ([facility]) Osteopenia PTSD (post-traumatic stress disorder) ([facility]) Seizures ([facility]) History reviewed. No pertinent surgical history. No [...] , wrist extensors , wrist flexor , public health sanitarian strength 5/5. LUE Strength deltoid , biceps , triceps , wrist extensors , wrist flexor , public health sanitarian strength 5/5. RLE Strength illopsoas, quadriceps, tibialis [...] LLE knee reflex 1+. Negative Brian's Coordination: Aoypks-jr-kjkp testing is normal Gait: Normal Review and [...] 134 (L). LFTs (WNL) Routine EEG at [facility] in March 2018: Normal MRI of the brain w and w/o contrast at [facility] on 10/18/13 and 06/30/16: Stable right [...] and return instructions documented in this encounterFreeman Heart [id number] History of Present illness Narrative* Bhanu Charlton [...] (attention deficit hyperactivity disorder) ([facility]) Alteration of consciousness Anger reaction Astigmatism Bipolar [facility] Seizures ([facility]) Medications: Current Outpatient Medications: acetaminophen (Tylenol) 325 [...] subungual debris. They were painful to palpation 48771 on the right 67883 on the left. VASC: DP /PT were nonpalpable bilateral. Capillary refill time < 3 seconds Digits 1-5 bilateral NEURO: [place] Ami 5.07 monofilament was intact B/L. Vibratory [...] 10. DAY Laura documented in this encounterFreeman Heart [id number] NotePatient recovered by anesthesia in procedure room.[facility] [id number] History of Present illness Narrative* Sabra Frias DMD - 02/23/2024 9:37 AM EST ----- Thursday, February 23, 2024 at 10:34:06 AM ----- ----- Provider: Shelby Frias DMD -- Clinic: [place] ----- PT. WAS SEEN IN [facility] UNDER TWILIGHT SEDATION WITH ANESTHESIA TEAM. Anesthesia diagnosis: Unspecified mental disorder- F09 and Other intellectual disabilities- F78 Dental diagnosis: Dental Caries, unspecified - K02.9 COMPOSITE ANABAPTIST Patient is scheduled for Sabianist on tooth #23 MFL and 24 DFL. Reviewed Medical History. Patient is ready for treatment. Topical Benzocaine gel applied at the injection site for 2 minutes. Administered 2 carpules of Lidocaine, 2% with Epinephrine 1:100,000,. Cotton roll isolation achieved. Decay/existing sikh removed, cavity prepared. Selectively etched enamel with 37% phosphoric acid, rinsed, and blot dried. OptiBond bowles applied and light-cured. Condensed packable composite shade A2 in light cured increments using Mylar strip and wedge. Finished with finishing burs, checked occlusion, verified proximal contacts and sikh was polished. Rinsed and suctioned intraorally, advised [...] ----- Provider: Shelby Frias DMD -- Clinic: [facility] ----- documented in this [id number] Telephone encounter Note* Telephone Encounter - Megha Sanchez RN - 02/14/2024 10:24 AM EST Anesthesia consent obtained by Dr. Koch and scanned into [employer]. [id number] Miscellaneous Notes* Telephone Encounter - Megha Sanchez RN - 02/14/2024 10:24 AM EST Anesthesia consent obtained by Dr. Koch and scanned into [employer]. documented in this [id number] Instructions* Discharge Instructions* Penny Denton RN - 02/01/2024 9:44 AM EST You are you have surgery with Dr. Frias on 02/22/2023 at [facility] which is located at [address] [place] [address] PATIENT MEDICATION INSTRUCTIONS: On the morning of [...] unless otherwise contacted. Expect a call from [facility] one business day prior to surgery for [...] your Preparing for Your Surgery/Procedure booklet or [email or web address] if you have questions. Contact the Pre-Admission Testing department at [phone] or your surgeon's officewith any questions that [...] valuables, credit cards, or large amounts of guerar. Do NOT wear lotion or strong-smelling fragrance [...] stay with you after surgery. Please call [facility] [employer] if you need transportation assistance or have concerns about going home [phone]. PEDIATRIC or ADOLESCENTS: Parents or a legal [...] signs of dehydration. Thank you for choosing [facility]; it is our pleasure to care for you. documented in this [id number] Evaluation note* PAT Call History - Penny Denton RN - 02/01/2024 9:20 AM EST Images from the original note were not included. Telephone History Migdalia Connelly, [id number] 02/01/2024 Patient was identified by name and date of with Nurse Latasha from [place]. Needs: Physical, Neck Circumference, Glasses, BHCG, Intellectual Disability, Anxiety and Seizure Precautions on DOS. Ifthe patient becomes ill prior to procedure or surgery, they are to call their provider or surgeon'soffice directly. 02/01/2024 - communicated with patient will need urine test the morning of the procedure 02/01/2024-Spoke with Dr. 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 38 year old 190.6 lbs 5' 5 [...] 09/05/2018 Added automatically from request for surgery [id number] Constipation Per OSH H+P 08/2018 Dental decay 08/26/2016 Added automatically from request for surgery [id number] Developmental delay Per OSH H+P 08/2018 Hormone [...] Decay, Dental Caries, Peridontitis, Endo (+) obesity 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 (+) irregular periods Neuro/Psych (+) bipolar disorder, [...] DENTAL RESTORATIONS; Surgeon: Bhavin Valdovinos DDS; Location: [facility]; Service: Dental DENTAL RESTORATIONS N/A 09/15/2018 Procedure: DENTAL RESTORATIONS; Surgeon: Og Grant DDS; Location: [facility]; Service: Dental DENTAL RESTORATIONS Bilateral 07/14/2020 Procedure: DENTAL RESTORATIONS; Surgeon: Og Grant DDS; Location: [facility]; Service: Dental SOCIAL HISTORY: Social History Socioeconomic History Marital status: Single Tobacco Use Smoking status: Never Smokeless tobacco: Never Substance and Sexual Activity Alcohol use: Never Drug use: Never PAIN ASSESSMENT: Severity: 0 Location: N/A LABORATORY DATA: [facility] 10/24/2023 LABS TESTS REVIEWED: CXRay: No Chest [...] unless otherwise contacted. [facility] one business day prior to [...] your Preparing for Your Surgery/Procedure booklet or [email or web address] if you have questions. Contact the Pre-Admission Testing department at [phone] or your surgeon's officewith any questions that [...] stay with you after surgery. Please call [facility] [employer] if you need transportation assistance or have concerns about going home [phone]. PEDIATRIC or ADOLESCENTS: Parents or a legal [...] signs of dehydration. Thank you for choosing [facility]; it is our pleasure to care for you. Penny Denton RN Time Spent Performing this Telephone History: 30 [id number] Miscellaneous Notes* PAT Call History - Penny Denton RN - 02/01/2024 9:20 AM EST Images from the original note were not included. Telephone History Migdalia Cueva Stephie, [id number] 02/01/2024 Patient was identified by name and date of with Nurse Anaya from [place]. Needs: Physical, Neck Circumference, Glasses, BHCG, Intellectual Disability, Anxiety and Seizure Precautions on DOS. Ifthe patient becomes ill prior to procedure or surgery, they are to call their provider or surgeon'soffice directly. 02/01/2024 - communicated with patient will need urine test the morning of the procedure 02/01/2024-Spoke with Dr. 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 38 year old 190.6 lbs 5' 5 [...] 09/05/2018 Added automatically from request for surgery [id number] Constipation Per OSH H+P 08/2018 Dental decay 08/26/2016 Added automatically from request for surgery [id number] Developmental delay Per OSH H+P 08/2018 Hormone [...] Decay, Dental Caries, Peridontitis, Endo (+) obesity 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 (+) irregular periods Neuro/Psych (+) bipolar disorder, [...] DENTAL RESTORATIONS; Surgeon: Bhavin Valdovinos DDS; Location: [facility] [place]; Service: Dental DENTAL RESTORATIONS N/A 09/15/2018 Procedure: DENTAL RESTORATIONS; Surgeon: Og Grant DDS; Location: [facility]; Service: Dental DENTAL RESTORATIONS Bilateral 07/14/2020 Procedure: DENTAL RESTORATIONS; Surgeon: Og Grant DDS; Location: [facility]; Service: Dental SOCIAL HISTORY: Social History Socioeconomic History Marital status: Single Tobacco Use Smoking status: Never Smokeless tobacco: Never Substance and Sexual Activity Alcohol use: Never Drug use: Never PAIN ASSESSMENT: Severity: 0 Location: N/A LABORATORY DATA: [facility] 10/24/2023 LABS TESTS REVIEWED: CXRay: No Chest [...] unless otherwise contacted. Expect a call from [facility] one business day prior to surgery for [...] your Preparing for Your Surgery/Procedure booklet or [email or web address] if you have questions. Contact the Pre-Admission Testing department at [phone] or your surgeon's officewith any questions that [...] stay with you after surgery. Please call [facility] [employer] if you need transportation assistance or have concerns about going home [phone]. PEDIATRIC or ADOLESCENTS: Parents or a legal [...] signs of dehydration. Thank you for choosing [facility]; it is our pleasure to care for you. Penny Denton RN Time Spent Performing this Telephone History: 30 documented in this [id number] Note* Addendum Note - Orquidea Florez MD - 12/15/2023 11:34 AM EDT Addendum created 12/15/231133 by Orquidea Florez MD Clinical Note Signed [id number] Miscellaneous Notes* Addendum Note - Orquidea Florez [...] 12/15/2023 9:24 AM EDT Patient recovered by STRINGED INSTRUMENT TUNER in room. Patient is awake, comfortable, and [...] DENTAL RESTORATIONS; Surgeon: Bhavin Valdovinos DDS; Location: [facility] [place]; Service: Dental CHOLECYSTECTOMY (2009) Per OSH H+P 08/2018 DENTAL RESTORATIONS (09/15/2018) Procedure: DENTAL RESTORATIONS; Surgeon: Og Grant DDS; Location: [facility] [place]; Service: Dental DENTAL RESTORATIONS (07/14/2020) Procedure: DENTAL RESTORATIONS; Surgeon: Og Grant DDS; Location: [facility] [place]; Service: Dental Allergies: Abilify, Amoxicillin, Depakote [valproic acid], Food, Metyrosine, Moban [molindone], Nubain [nalbuphine], Sympathomimetics, and Vicks 44 cough relief [dextromethorphan hbr] Basic Operating Room Facts: * No surgeons listed * Anesthesiologist: Orquidea Florez MD STRINGED INSTRUMENT TUNER: Domingo Carrion APRN-CRNA DENTAL VISIT Intraoperative Events: [...] was received. MAXIMO Soliz documented in this [id number] Procedure anesthesia Narrative * Procedure NameResponsible AnesthesiologistAnesthesia Start TimeAnesthesia Stop TimeDENTAL VISITOrquidea Florez MD12/15/23 24069812/15/23 0925DateTime PwvubGqsaert01/24/[id number] Start Gliw4949Mp Tflzy2077Inkqiiqlsipf Verify The anesthesia team has reviewed the patient's vital signs immediately prior to induction. MAXIMO Soliz0833Procedure TimeoutConfirm the correct patient identity: Yes Confirm the correct procedure: Yes Confirm the correct procedural site: Yes Confirm signed informed consent: Yes Confirm prophylactic antibiotic administration (if applicable): N/A Discuss fire risk mitigation (if applicable): Yes Anesthesia Staff MAXIMO Soliz Proceduralist Altagracia Additional Staff 0834An [id number] Yvmsoti1517aq stop [id number] completed my SBAR handoff to the receiving nurse in the receiving unit.09AN Stop* NameTotalglycopyrrolate (ROBINUL) injection 0.2 mg/mL0.1 mgMidazolam 1 mg/mL5 mgDexmedetomidine injection 100 mcg/mL56 mcg Ketorolac 30 mg/mL15 mgLactated Yzwutra52 mL * Agents Name N2O O2 Flow Rate (l/min) * Blood No blood administrations on file. TypeDetailsPlacementRemovalSurgical Wound06/09 0000 by Carola Hansen RNSurgical Wound09/15/18; 1148; Incision; N/A; Mouth09/15/18 1148 by Mayte Poole RNWound07/14/20; 1023; Bilateral; Other (Comment); Surgical - Ozdxywgn68/24/21 1023 by Felix [place] [employer] Fddfwwf09/24/24; 0833; Nasal Cannula; 12/15/23; 0833 by Domingo Carrion APRN-CRNA12/15/23 0920 by Domingo Carrion APRN-CRNAdocumented in this encounter [id number] Note* Addendum Note - Domingo Carrion APRN-CRNA - 12/15/2023 10:26 AM EDT Addendum created 12/15/23 1026 by Domingo Carrion APRN-CRNA Flowsheet accepted, LDA properties accepted [facility] Work Phone: 1(350) 308-264110-24-2024 Note* Addendum Note - Domingo Carrion APRN- CRNA - 12/15/2023 10:26 AM EDT Addendum created 12/15/23 1026 by Domingo Carrion APRN-CRNA Flowsheet accepted, LDA properties accepted [facility] Work Phone: 1(888) 560-643010-24-2024 Miscellaneous Notes* Addendum Note - Dominog Carrion APRN-CRNA - 12/15/2023 10:26 AM EDT Addendum created 12/15/23 1026 by Domingo Carrion APRN-CRNA Flowsheet accepted, LDA properties accepted * Anesthesia Transfer Of Care - Domingo Carrion APRN-CRNA - 12/15/2023 9:24 AM EDT Patient recovered by STRINGED INSTRUMENT TUNER in room. Patient is awake, comfortable, and [...] DENTAL RESTORATIONS; Surgeon: Bhavin Valdovinos DDS; Location: [facility] [place]; Service: Dental CHOLECYSTECTOMY (2009) Per OSH H+P 08/2018 DENTAL RESTORATIONS (09/15/2018) Procedure: DENTAL RESTORATIONS; Surgeon: Og Grant DDS; Location: [facility] [place]; Service: Dental DENTAL RESTORATIONS (07/14/2020) Procedure: DENTAL RESTORATIONS; Surgeon: Og Grant DDS; Location: [facility]; Service: Dental Allergies: Abilify, Amoxicillin, Depakote [valproic acid], Food, Metyrosine, Moban [molindone], Nubain [nalbuphine], Sympathomimetics, and Vicks 44 cough relief [dextromethorphan hbr] Basic Operating Room Facts: * No surgeons listed * Anesthesiologist: Orquidea Florez MD STRINGED INSTRUMENT TUNER: Domingo Carrion APRN-RAVINDRA DENTAL VISIT Intraoperative Events: [...] was received. MAXIMO Soliz documented in this [id number] Anesthesiology Postoperative evaluation and management note* Anesthesia [...] ANESTHESIA NOTABLE EVENTS: No notable events documented. 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 The risks, benefitsand alternatives were reviewed. Questions regarding anesthesia were answered. Patient and/or legal customer engagement representative knows such anesthetics and procedures may be performed by Resident physicians, Certified Anesthesiologist Assistants, or Certified Nurse Anesthetists under the supervision of a physician. The patient /or the patient s legal customer engagement representative agree with the plan for anesthesia. 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 The risks, benefitsand alternatives were reviewed. Questions regarding anesthesia were answered. Patient and/or legal customer engagement representative knows such anesthetics and procedures may be performed by Resident physicians, Certified Anesthesiologist Assistants, or Certified Nurse Anesthetists under the supervision of a physician. The patient /or the patient s legal customer engagement representative agree with the plan for anesthesia. 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 The risks, benefitsand alternatives were reviewed. Questions regarding anesthesia were answered. Patient and/or legal customer engagement representative knows such anesthetics and procedures may be performed by Resident physicians, Certified Anesthesiologist Assistants, or Certified Nurse Anesthetists under the supervision of a physician. The patient /or the patient s legal customer engagement representative agree with the plan for anesthesia. [employer] documented in this [id number] Anesthesiology Postoperative evaluation and management note* Anesthesia Transfer Of Care - Domingo Carrion APRN- RAVINDRA - 12/15/2023 9:24 AM EDT Patient recovered by STRINGED INSTRUMENT TUNER in room. Patient is awake, comfortable, and [...] DENTAL RESTORATIONS; Surgeon: Bhavin Valdovinos DDS; Location: [facility] [place]; Service: Dental CHOLECYSTECTOMY (2009) Per OSH H+P 08/2018 DENTAL RESTORATIONS (09/15/2018) Procedure: DENTAL RESTORATIONS; Surgeon: Og Grant DDS; Location: [facility] [place]; Service: Dental DENTAL RESTORATIONS (07/14/2020) Procedure: DENTAL RESTORATIONS; Surgeon: Og Grant DDS; Location: [facility] [place]; Service: Dental Allergies: Abilify, Amoxicillin, Depakote [valproic acid], Food, Metyrosine, Moban [molindone], Nubain [nalbuphine], Sympathomimetics, and Vicks 44 cough relief [dextromethorphan hbr] Basic Operating Room Facts: * No surgeons listed * Anesthesiologist: Orquidea Florez MD STRINGED INSTRUMENT TUNER: Domingo Carrion APRN-STRINGED INSTRUMENT TUNER DENTAL VISIT Intraoperative Events: No acute event [...] of the report was received. MAXIMO Soliz [employer] Work Phone: 1(464) 215-402210-24-2024 Miscellaneous Notes* Anesthesia Transfer Of Care - Domingo Carrion APRN-CRNA - 12/15/2023 9:24 AM EDT Patient recovered by STRINGED INSTRUMENT TUNER in room. Patient is awake, comfortable, and [...] DENTAL RESTORATIONS; Surgeon: Bhavin Valdovinos DDS; Location: [facility] [place]; Service: Dental CHOLECYSTECTOMY (2009) Per OSH H+P 08/2018 DENTAL RESTORATIONS (09/15/2018) Procedure: DENTAL RESTORATIONS; Surgeon: Og Grant DDS; Location: [facility] [place]; Service: Dental DENTAL RESTORATIONS (07/14/2020) Procedure: DENTAL RESTORATIONS; Surgeon: Og Grant DDS; Location: [facility]; Service: Dental Allergies: Abilify, Amoxicillin, Depakote [valproic acid], Food, Metyrosine, Moban [molindone], Nubain [nalbuphine], Sympathomimetics, and Vicks 44 cough relief [dextromethorphan hbr] Basic Operating Room Facts: * No surgeons listed * Anesthesiologist: Orquidea Florez MD STRINGED INSTRUMENT TUNER: Domingo Carrion APRN-RAVINDRA DENTAL VISIT Intraoperative Events: [...] was received. MAXIMO Soliz documented in this [id number] History of Present illness Narrative* Marleni Alejandro DDS - 12/15/2023 8:53 AM EDT ----- November at 9:52:24 AM ----- ----- Provider: Resident Eric -- Clinic: [place] ----- PT WAS SEEN [facility] UND[facility] [...] status of dentition on the charting. COMPOSITE ANABAPTIST Patient is scheduled for Sabianist on tooth #26 surface B5. Topical Benzocaine gel applied at theinjection site for 2 minutes. Administered 0.5 carpules of Lidocaine, 2% with Epinephrine 1:100,000,. Isolation achieved. Decay/existing sikh removed, cavity prepared. Selectively etched enamel with 37% phosphoric acid, rinsed, and blot dried. OptiBond bowles applied and light-cured. Condensed packable composite shade A2 in light cured increments. Finished with finishing burs, checked occlusion, verified proximal contacts and sikh was polished. SIMPLE EXTRACTION tooth # 7 [...] ----- Provider: Shelby Frias DMD -- Clinic: [place] ----- documented in this [id number] Progress note* Blood Attestation - Orquidea Florez MD - 12/15/2023 8:26 AM EDT Blood Attestation: ATTESTATION OF INFORMED CONSENT FOR BLOOD: The transfusion of blood and/or blood components were discussed with the patient and/or legal customer engagement representative. The risks, benefits and alternatives were reviewed. Questions regarding blood transfusions were answered. The patient /or the patient s legal customer engagement representative agree with the plan for transfusion of blood and/or blood components. [facility] Work Phone: 1(803) 751-586510-24-2024 Miscellaneous Notes* Blood Attestation - Orquidea Florez MD - 12/15/2023 8:26 AM EDT Blood Attestation: ATTESTATION OF INFORMED CONSENT FOR BLOOD: The transfusion of blood and/or blood components were discussed with the patient and/or legal customer engagement representative. The risks, benefits and alternatives were reviewed. Questions regarding blood transfusions were answered. The patient /or the patient s legal customer engagement representative agree with the plan for transfusion of blood and/or blood components. 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 The risks, benefitsand alternatives were reviewed. Questions regarding anesthesia were answered. Patient and/or legal customer engagement representative knows such anesthetics and procedures may be performed by Resident physicians, Certified Anesthesiologist Assistants, or Certified Nurse Anesthetists under the supervision of a physician. The patient /or the patient s legal customer engagement representative agree with the plan for anesthesia. MHPATFORM [id number] History of Present illness Narrative* YESIKA Mac [...] any new/changing lesions documented in this encounterFreeman Heart [id number] Telephone encounter Note* Telephone Encounter - Idania Campbell RN - 11/23/2023 2:56 PM EDT Anesthesia consent obtained and scanned into [employer]. Scheduled for surgery 12/15/2023. [id number] Miscellaneous Notes* Telephone Encounter - Idania Campbell RN - 11/23/2023 2:56 PM EDT Anesthesia consent obtained and scanned into [employer]. Scheduled for surgery 12/15/2023. documented in this [id number] NoteDo not eat or drink anything after [...] the Pre Admission Testing (PAT) department at [phone], or your surgeon's office, with any additional questions.[facility] [id number] History of Present illness Narrative* Bhanu Charlton [...] OCD (obsessive compulsive disorder) ([facility] Osteopenia PTSD (post-traumatic stress disorder) ([facility]) Seizures ([facility]) Medications: Current Outpatient Medications: acetaminophen (Tylenol) 325 [...] subungual debris. They were painful to palpation 88093 on the right 95681 on the left. VASC: DP /PT were nonpalpable bilateral. Capillary refill time < 3 seconds Digits 1-5 bilateral NEURO: [place] Ami 5.07 monofilament was intact B/L. Vibratory [...] 10. DAY Laura documented in this encounterFreeman Heart [id number] History of Present illness Narrative* Case Melchor [...] results found for: IRONSAT , FERRITIN , [id number] , FOLATE Mineral and Bone Labs: No [...] of your patients! Please contact me at [phone] (Office) or [phone] (Answering service) with any questions. CASE MELCHOR MD [facility] This note was created with the [...] 2023 at 11:01:41 AM ----- ----- Provider: [id number] Resident Marco -- Clinic: [place] ----- LIMITED EXAM Patient presents for Emergency [...] consented to treatment today. Pt here with java web application developer to discuss IV sedation as a quicker [...] sedation. Informed both the patient and the java web application developer. Treatment request for IV sedation will be sent for the patient. Next Visit: IV sedation and appropriate treatment. ----- Signed on Thursday, October 19, 2023 at 1:27:08 PM ----- ----- Provider: [id number] Ed Obrien DDS -- Clinic: [place] ----- documented in this [id number] Miscellaneous Notes* Telephone Encounter - Cesia Lang - 08/01/2023 3:02 PM EDT [facility] called and requested the last progress note to be faxed to [phone]. Faxed note. [facility] Telephone encounter Note* Telephone Encounter - Cesia Lang - 08/01/2023 3:02 PM EDT [facility] called and requested the last progress note to be faxed to [phone]. Faxed note. [facility]06-06-2024 [...] constantly. She is a resident at the [facility] full- time. She is reasonably functional. Her [...] results found for: IRONSAT , FERRITIN , [id number] , FOLATE Mineral and Bone Labs: No [...] of your patients! Please contact me at [phone] (Office) or [phone] (Answering service) with any questions. CASE MELCHOR MD [facility] This note was created with the assistance of a speech-recognition program. Although the intention is to generate a document that actually reflects the content of the visit, no guarantees can be provided that every mistake has been identified and corrected by editing. documented in this encounterPremier [facility]04-10-2024 Discharge summary Author Rico Romero [facility] June 01, 2023 3:06pmNote Date/TimeApr2023 12:23pm[place] [address] Discharge Summary Signed Patient: Migdalia Connelly MR#: [id number] : 1985 Acct:[id number] Age/Sex: 37 / F Adm Date: 4 Loc: 4N Room: 6F0489-[address]: Rico Romero DO Copies to: [...] with developmental delay who lives at the [facility]. She hadbeen cared for at an [...] before she will be transferred back to [place]. She was also given the discharge instructions [...] % (Auto) N/A, Lymph % (Auto) N/A, [place] % (Auto) N/A, Eos % (Auto) N/A, Baso % (Auto) N/A, Nucleat RBC Rel Count N/A, Neut # (Auto) N/A, Lymph # (Auto) N/A, [place] # (Auto) N/A, Eos # (Auto) N/A, [...] <Electronically signed by Rico Romero DO> 06/01/23 [facility] Work Phone: 1(853) 647-670904-09-2024 Progress note Author Rico Romero [facility] May 31, 2023 11:47amNote Date/TimeApril 2023 11:47[place] [address] Hospitalist Progress Note Signed Patient: Migdalia Connelly MR#: [id number] : 1985 Acct:[id number] Age/Sex: 37 / F Adm Date: 4 Loc: 4N Room: 8I3662-2 Type: ADM IN Attending Dr: Rico Romero [...] Capsule PO 05/28/24 19:29 40 mg DAILY@1929 [facility] Administration Bisacodyl 10 mg 05/29/23 15:58 Bisacodyl [...] Capsule PO 05/28/24 19:29 200 mg BID@899,1929 [facility] Administration Emollient Ointment 1 applic 05/29/23 18:01 05/30/23 11:30 Petrolatum,White 99 Gm Oint...G. TOPICAL 1 applic BID PRN Administration dry skin Enoxaparin Sodium 40 mg 05/30/23 10:00 05/31/23 08:18 Enoxaparin 40 Mg/0.4 Ml Syringe SUBCUT 05/29/24 09:59 40 mg DAILY@10 [facility] Administration Fenofibrate 145 mg 05/29/23 19:30 05/30/23 20:04 Fenofibrate Nanocrystallized 145 Mg Tablet PO 05/28/24 19:29 145 mg DAILY@1929 [facility] Administration Fluticasone Propionate 2 spray 05/29/23 18:01 Fluticasone Propionate Chester 120 Chester/16 Gm Bottle INTRANASAL 05/28/24 18:00 DAILY PRN allergy symptoms Guanfacine HCl 2 mg 05/29/23 19:30 05/31/23 08:15 Guanfacine 1 Mg Tablet PO 05/28/24 19:29 2 mg TID@0900,1400,1929 [facility] Administration Hydralazine HCl 10 mg 05/29/23 16:01 [...] [Efudex] TOPICAL 05/28/24 20:59 Not Given BID [facility] Non-Formulary Medication 1 tab 05/30/23 09:00 05/31/23 [...] signed by Rico Romero, DO> 05/31/23 [facility] Work Phone: 1([phone]) 848-651504-08-2024 Progress note Author Anamaria Benton [facility] May 30, 2023 12:21pmNote Date/TimeApril 2023 12:21pm[place] [address] Hospitalist Progress Note Signed Patient: Migdalia Connelly MR#: [id number] : 1985 Acct:[id number] Age/Sex: 37 / F Adm Date: 4 Loc: 4 Room: 7E1692-0 Type: ADM INOo Attending Dr: Anamaria Benton [...] Tablet PO 05/28/24 19:29 1 tab BID@09,1929 [facility] Administration Calcium Carbonate 500 mg 05/29/23 18:01 Calcium Carbonate 500 Mg Tab.Chew PO Q4HR PRN dyspepsia Calcium Polycarbophil 1,250 mg 05/30/23 09:00 05/30/23 08:25 Calcium Polycarbophil 625 Mg Tablet PO 05/29/24 08:59 1,250 mg DAILY [facility] Administration Carbamazepine 400 mg 05/29/23 19:30 05/29/23 20:03 Carbamazepine Xr.12hr 200 Mg Tab.Er.12h PO 05/28/24 19:29 400 mg DAILY@1929 [facility] Administration Clonidine HCl 0.2 mg 05/29/23 19:30 05/30/23 11:29 Clonidine 0.2 Mg Tablet PO 05/28/24 19:29 0.2 mg 0900,1400,1929 [facility] Administration Diazepam 5 mg 05/29/23 18:15 Diazepam 5 Mg Tablet PO 11/25/23 18:14 ONCE PRN 1 HOUR PRIOR TO PROCEDURE Dicyclomine HCl 20 mg 05/29/23 19:30 05/30/23 08:25 Dicyclomine 20 Mg Tablet PO 05/28/24 19:29 20 mg BID@899,1929 [facility] Administration Diphenhydramine HCl 25 mg 05/29/23 15:51 05/29/23 20:04 Diphenhydramine 25 Mg Capsule PO 05/28/24 15:50 25 mg Q8H PRN Administration Severe rash or Itching Docusate Sodium 200 mg 05/29/23 19:30 05/30/23 08:24 Docusate 100 Mg Capsule PO 05/28/24 19:29 200 mg BID@0900,0 [facility] Administration Emollient Ointment 1 applic 05/29/23 18:01 05/30/23 11:30 Petrolatum,White 99 Gm Oint...G. TOPICAL 1 applic BID PRN Administration dry skin Enoxaparin Sodium 40 mg 05/30/23 10:00 05/30/23 09:11 Enoxaparin 40 Mg/0.4 Ml Syringe SUBCUT 05/29/24 09:59 40 mg DAILY@10 [facility] Administration Fenofibrate 145 mg 05/29/23 19:30 05/29/23 20:00 Fenofibrate Nanocrystallized 145 Mg Tablet PO 05/28/24 19:29 145 mg DAILY@1930 [facility] Administration Fluticasone Propionate 2 spray 05/29/23 18:01 Fluticasone Propionate Chester 120 Chester/16 Gm Bottle INTRANASAL 05/28/24 18:00 DAILY PRN [...] signed by Anamaria Benton MD> 05/30/23 [facility] Work Phone: 1(910) 723-121004-07-2024 History and physical note Author Arvind Regan [facility] May 29, 2023 4:12pmNote Date/TimeApr2023 4:01pm[place] [address] Hospitalist H&P Signed Patient: Migdalia Connelly MR#: [id number] : 1985 Acct:[id number] Age/Sex: 37 / F Adm Date: 4 Loc: 4 Room: [address] [place] [address] Type: ADM INOo Attending Dr: Arvind Regan DO Copies to: NON STAFF Arvind Regan DO~ HPI DATE OF EXAMINATION: 05/29/23 CHIEF COMPLAINT: Concern for worsening facial cellulitis HISTORY OF PRESENT ILLNESS: This is a 37-year-old female with MRDD who lives in a intermediate who [facility] ER with her caregiver with concern for worsening facial cellulitis. Patient was just discharged from [facility] on Tuesday after being treated for [...] unless noted below or in HPI [facility] Medical History (Updated 05/29/23 @ [...] 13:36 Lymph % (Auto) N/A 05/29/23 13:36 [place] % (Auto) N/A 05/29/23 13:36 Eos % (Auto) N/A 05/29/23 13:36 Baso % (Auto) N/A 05/29/23 13:36 Nucleat RBC Rel Count N/A 05/29/23 13:36 Neut # (Auto) N/A 05/29/23 13:36 Lymph # (Auto) N/A 05/29/23 13:36 [place] # (Auto) N/A 05/29/23 13:36 Eos # [...] periorbital cellulitis where she was hospitalized at [facility] and treated with IV antibiotics and [...] <Electronically signed by Arvind Regan DO> 05/29/23 [facility] Work Phone: 1(803) 700-460404-03-2024 Miscellaneous Notes* Telephone Encounter - Cesia Lang [...] Hospital. Labs ordered and faxed to facility. [facility] [employer] [id number] History of Present illness Narrative* Scarlett Albarran DDS - 06/10/2022 1:29 PM EDT ----- May at 3:52:48 PM ----- ----- Provider: [id number] Resident Betsy -- Clinic: [place] ----- OR EVALUATION Patient presents for evaluation [...] treatment in the OR was sent out [phone] NOTE: Note: Pt seen in the OR about 2 years ago. Next Visit: OR ----- Signed on May at 4:11:20 PM ----- ----- Provider: [id number] Ed Obrien DDS -- Clinic: [place] ----- documented in this encounterMetroHealthEvaluation + Plan note No data available for this section [facility]* Diagnosis Onset Date Resolution Status Periorbital cellulitis [facility] Work Phone: Evaluation note* Diagnosis Onset Date Resolution Status Bipolar disorder acuteFailure of outpatient treatmentacuteHypercholesterolemiaacuteHypertension acuteModerate intellectual disabilityacutePeriorbital cellulitisacutePTSD (post- traumatic stress disorder)acuteSeizure disorderacute [facility] Work Phone: Evaluation note* Diagnosis Onset Date Resolution Status Bipolar disorder acuteHypercholesterolemiaacuteHypertensionacutePTSD (post-traumatic stress disorder)acuteSeizure disorderacutePeriorbital cellulitisresolved [facility] Work Phone: Evaluation note* Diagnosis Caries- Primary Unspecified dental caries documented in this encounter [facility]* Diagnosis Lip licking dermatitis [facility]* Diagnosis Caries- Primary Unspecified dental caries documented in this encounter [facility]* Diagnosis Onychomycosis- Primary Dermatophytosis of nail Pain in right toe(s) Pain in left toe(s) documented in this encounter [facility]* Diagnosis Pre-op evaluation- Primary Preoperative examination, unspecified documented [facility] this encounter [facility]* Diagnosis Onychomycosis- Primary Dermatophytosis of nail Pain in right toe(s) Pain in left toe(s) documented in this encounter [facility] HealthcareEvaluation note* Diagnosis Convulsions, unspecified convulsion type (CMS/HCC)- Primary Hyponatremia Hyposmolality and/or hyponatremia Developmental delay Unspecified delay in development Anger reaction Undersocialized conduct disorder, aggressive type, unspecified documented in this encounter [facility] HealthcareEvaluation note* Diagnosis Hyponatremia- Primary Hyposmolality and/or [...] aggressive type, unspecified documented in this encounter [facility] HealthcareEvaluation note* Diagnosis Encounter for breast and pelvic examination- Primary [facility]* Diagnosis Onychocryptosis- Primary Ingrowing nail Pain in left toe(s) Abscess, toe, left documented in this encounter [facility] HealthcareEvaluation note* Diagnosis Abscess, toe, left- Primary Onychocryptosis Ingrowing nail documented in this encounter [facility] Healthcare[facility] note* Diagnosis Exostosis of right foot- Primary Other enthesopathy of right foot and ankle Pain in right toe(s) Right foot pain Pain in soft tissues of limb Onychomycosis Dermatophytosis of nail Pain in left toe(s) documented in this encounter [facility] HealthcareEvaluation note* Diagnosis Mastodynia, female- Primary Mass of right breast, unspecified quadrant [facility]* Diagnosis Caries- Primary Unspecified dental caries [facility]* Diagnosis Mass of right breast, unspecified quadrant- Primary Breast skin changes Mastodynia, female documented [facility]* Diagnosis Exostosis of right foot- Primary Other enthesopathy of right foot and ankle Right foot pain Pain in soft tissues of limb documented in this encounter [facility] HealthcareEvaluation noteNo assessment information availableMemorial Hospital Work Phone: Evaluation note* Diagnosis Mastodynia, female- Primary [facility]* Diagnosis Exostosis of right foot- Primary Other enthesopathy of right foot and ankle documented in this encounter [facility] HealthcareEvaluation note* Diagnosis Caries- Primary Unspecified dental caries Pre-op evaluation- Primary Preoperative examination, unspecified Body mass index (BMI) 30.0-30.9, adult Caries Unspecified dental caries [facility]* Diagnosis Caries- Primary Unspecified dental caries documented [facility]* Diagnosis Onychomycosis- Primary Dermatophytosis of nail Pain in left toe(s) Pain in right toe(s) documented in this encounter [facility] HealthcareEvaluation note* Diagnosis Cellulitis of right breast- Primary documented in [facility]* Diagnosis Onset Date Resolution Status Admit Date Convulsions resolvedOctober 2024 9:02am [facility] Work Phone: History and physical note Author Arvind Regan [facility] May 29, 2023 4:12pmNote Date/TimeApril 2023 4:01pm[place] [address] Hospitalist H&P Signed Patient: Migdalia Connelly MR#: [id number] : 1985 Acct:[id number] Age/Sex: 37 / F Adm Date: 4 Loc: 4N Room: [address] [place] [address] Type: ADM INOo Attending Dr: Arvind Regan DO Copies to: NON STAFF Arvind Regan DO~ HPI DATE OF EXAMINATION: 05/29/23 CHIEF COMPLAINT: Concern for worsening facial cellulitis HISTORY OF PRESENT ILLNESS: This is a 37-year-old female with MRDD who lives in [place] who [facility] with her caregiver with concern for worsening facial cellulitis. Patient was just discharged from [facility] on Tuesday after being treated for [...] unless noted below or in HPI [facility] Medical History (Updated 05/29/23 @ [...] 13:36 Lymph % (Auto) N/A 05/29/23 13:36 [place] % (Auto) N/A 05/29/23 13:36 Eos % (Auto) N/A 05/29/23 13:36 Baso % (Auto) N/A 05/29/23 13:36 Nucleat RBC Rel Count N/A 05/29/23 13:36 Neut # (Auto) N/A 05/29/23 13:36 Lymph # (Auto) N/A 05/29/23 13:36 [place] # (Auto) N/A 05/29/23 13:36 Eos # [...] periorbital cellulitis where she was hospitalized at [facility] and treated with IV antibiotics and [...] signed by Arvind Regan DO> 05/29/23 1612 [facility] Work Phone: Hospital Discharge instructions No data available for this section [facility] Additional Instructions DO continue to finish all of the antibiotic pills that was prescribed by Radha: Doxycycline. DO NOT take any of the prednisone that was prescribed by Radha. This is not needed anymore. DO take the extra antibiotic we are sending home at this time: Avelox.[facility] Work Phone: Hospital Discharge instructions Additional Instructions Take simethicone as prescribed for abdominal distention. Take Metamucil Colace and MiraLAX as prescribed constipation. Make sure to take drinking plenty of water each day. Take Naprosyn as prescribed for headache. Follow-up with your primary care provider for ongoing treatment.[facility] Work Phone: InstructionsNot on filedocumented in [...] Start TimeAnesthesia Stop TimeDENTAL Orquidea Arcos MD12/15/23 79127812/15/23 8452ZkbcXrntVnleqNiesmap76/24/882490496013Ai Start Lguy1089Wt Lodxi5173Xoulfxrqtzou VerifyThe anesthesia team has reviewed the patient's vital signs immediately prior to induction. MAXIMO Soliz0833Procedure TimeoutConfirm the correct patient identity: Yes Confirm the correct procedure: Yes Confirm the correct procedural site: Yes Confirm signed informed consent: Yes Confirm prophylactic antibiotic administration (if applicable): N/A Discuss fire risk mitigation (if applicable): Yes Anesthesia Staff MAXIMO Soliz Proceduralist Altagracia Additional Staff 0834An Agwkupsbx8995Ufcxvabpxw Skscfda9732mb stop pimh1771 HandoffI completed my SBAR handoff to the receiving nurse in the receiving unit.0925AN Stop* NameTotalglycopyrrolate (ROBINUL) injection 0.2 mg/mL0.1 mg Midazolam 1 mg/mL5 mgDexmedetomidine injection 100 mcg/mL56 mcgKetorolac 30 mg/mL15 mgLactated Zycweqg70 mL * Agents Name N2O O2 Flow Rate (l/min) * Blood No blood administrations on file. TypeDetailsPlacementRemovalSurgical Wound06/09 0000 by Carola Hansen RNSurgical Wound09/15/18; 1148; Incision; N/A; Mouth09/15/18 1148 by Mayte Poole RNWound07/14/20; 1023; Bilateral; Other (Comment); Surgical - Yqfrgzzm65/24/21 1023 by Felix Oro RNAirway Fubwcff69/24/24; 0833; Nasal Tpipmhd37/24/24 0833 by Domingo Carrion APRN-CRNAdocumented in this encounter [facility] Narrative* Procedure NameResponsible AnesthesiologistAnesthesia Start TimeAnesthesia Stop TimeDENTAL Orquidea Arcos MD12/15/23 26883412/15/23 7134CgsfAkjdLeaipNtrqjcy22/24/884651543647Iu Start Sxvp1598Zq Notzb4208Writwsxcokus VerifyThe anesthesia team has reviewed the patient's vital signs immediately prior to induction. MAXIMO Soliz0833Procedure TimeoutConfirm the correct patient identity: Yes Confirm the correct procedure: Yes Confirm the correct procedural site: Yes Confirm signed informed consent: Yes Confirm prophylactic antibiotic administration (if applicable): N/A Discuss fire risk mitigation (if applicable): Yes Anesthesia Staff MAXIMO Soliz Proceduralist Altagracia Additional Staff 0834An Zcztpkodz9650Ucekhwlupf Lhmyeee5342bc stop ayhn8902 HandoffI completed my SBAR handoff to the receiving nurse in the receiving unit.0925AN Stop* NameTotalglycopyrrolate (ROBINUL) injection 0.2 mg/mL0.1 mg Midazolam 1 mg/mL5 mgDexmedetomidine injection 100 mcg/mL56 mcgKetorolac 30 mg/mL15 mgLactated Kxpedvr91 mL * Agents Name N2O O2 Flow Rate (l/min) * Blood No blood administrations on file. TypeDetailsPlacementRemovalSurgical Wound06/09 0000 by Carola Hansen RNSurgical Wound09/15/18; 1148; Incision; N/A; Mouth09/15/18 1148 by Mayte Poole RNWound07/14/20; 1023; Bilateral; Other (Comment); Surgical - Ksjkfody51/24/21 1023 by Felix Oro RNAirway Lgqtfmn94/24/24; 0833; Nasal Cannula; 12/15/23; 0833 by Domingo Carrion APRN-CRNA12/15/23 0920 by Domingo Carrion APRN-CRNAdocumented in this encounter [facility] No data available for this section [facility] TroyReason for referral (narrative)No reason for referral information [facility] Work Phone: Reason for visit Narrative* Service Level Authorization (Routine) - ClosedSpecialtyDiagnoses / ProceduresReferred By ContactReferred To ContactAnesthesiology Diagnoses Caries Sabra Frias, DMD [address] [place] [address] Phone: tel: fax: [facility] PRE ADMISSION TEST[facility] [address] [place] [address] Phone: tel: Referral IDStatusReasonStart DateExpiration DateVisits RequestedVisits [id number]/24/202410/ [facility] Narrative* Consultation (Routine) - Pending Review SpecialtyDiagnoses / ProceduresReferred By ContactReferred To Contact Nephrology Diagnoses Hyponatremia Damien Jones, TRAINING AND DEVELOPMENT COORDINATOR-ICING MAKER [address] [place] [address] Phn Nephrology geni [place] [address] [place] [address] Referral IDStatusReasonStart DateExpiration DateVisits RequestedVisits [id number] Review Specialty Services Required [facility]Reason for [facility] Narrative* Auth/Cert (Routine)Specialty Diagnoses / ProceduresReferred By ContactReferred To ContactAmbulatory Surgery Diagnoses Caries Caries [K02.9] Procedures UNLISTED PROCEDURE, DENTOALVEOLAR STRUCTURES ANESTHESIA, INTRAORAL PROC, W/BX; NOS DENTAL RESTORATIONS Og Grant, DDS [address] [place] [address] Phone: tel: fax: [facility] [address] [place] [phone] Phone: tel: Referral IDStatusReasonStart DateExpiration DateVisits RequestedVisits [id number] [facility] Summary Purpose Family History No Family [...] Contact Anesthesiology Diagnoses Caries Sabra Frias DMD [address] [place] [address] [facility]MISSION [facility] [address] [place] [address] Referral IDStatusReasonStart DateExpiration DateVisits RequestedVisits [id number]/24/202410/24/202511 Scheduling Instructions Your surgical team will reach out to you to schedule a pre-admission testing appointment. QuestionAnswer Reason for consult? Recommended PAT Risk Score SpecialtyDiagnoses / ProceduresReferred By ContactReferred To Contact Anesthesiology Diagnoses Caries Og Grant, HALINA [address] [place] [address] [facility] ADMISSION [facility] [address] [place] [address] Referral IDStatFaizan DateExpiration DateVisits RequestedVisits [id number]/28/20248/28/202511 Scheduling Instructions Your surgical team will reach out to you to schedule a pre-admission testing appointment. QuestionAnswer Reason for consult? Recommended PAT Risk Score Additional Source Comments INFORMATION SOURCE (unrecogn ized section and content) DATE CREATED AUTHOR 05/12/2018 [facility] DATE CREATED AUTHOR AUTHOR'S ORGANIZ ATION 07/30/2022 [facility] DATE CREATED AUTHOR AUTHOR'S ORGANIZ ATION 04/21/2023 [facility] DATE CREATED AUTHOR AUTHOR'S ORGANIZ ATION 08/12/2024 [facility] DATE CREATED AUTHOR AUTHOR'S ORGANIZ ATION 08/26/2024 [facility] DATE CREATED AUTHOR AUTHOR'S ORGANIZ ATION 09/08/2024 [facility] DATE CREATED AUTHOR AUTHOR'S ORGANIZ ATION 10/15/2024 [facility] DATE CREATED AUTHOR AUTHOR'S ORGANIZ ATION 11/15/2024 [facility] DATE CREATED AUTHOR AUTHOR'S ORGANIZ ATION 11/25/2024 [facility] Patient Care team informatio n (unrecognized section [...] Active Member Role Status Dates Venita Amanda TRAINING AND DEVELOPMENT COORDINATOR Emergency Provider Active Start: May 29, 2023 [...] 2023Team MemberRelationshipSpecialtyStart DateEnd Date Lio Muñoz MD [address] [place] [address] PCP - GeneralFamily Medicine11/09/23 Ramone Herrera DO [address] [phone] Referring PhysicianNeurology05/19/23Team MemberRelationshipSpecialtyStart DateEnd Lio Muñoz MD [address] [place], [place] [phone] PCP - GeneralFamily Medicine11/09/23 Ramone Herrera DO [address] [phone] Referring PhysicianNeurology05/19/23Team MemberRelationshipSpecialtyStart DateEnd Lio Muñoz MD [address] [place] [address] PCP - GeneralFamily Medicine11/09/23 Ramone Herrera DO [address] [phone] Referring PhysicianNeurology05/19/23Team MemberRelationshipSpecialtyStart End Lio Muñoz MD [address] [place], [place] [phone] PCP - GeneralFamily Medicine11/09/23 Ramone Herrera DO [address] [phone] Referring PhysicianNeurology05/19/23Team MemberRelationshipSpecialtyStart DateEnd Lio Muñoz MD [address] [place], [place] [phone] PCP - GeneralFamily Medicine11/09/23 Ramone Herrera DO [address] [place] [address] Referring PhysicianNeurology05/19/23Team MemberRelationshipSpecialtyStart DateEnd Date Lio Muñoz MD [address] [place] [address] PCP - GeneralFamily Medicine11/09/23 Ramone Herrera DO [address] [place] [address] Referring PhysicianNeurology05/19/23Team MemberRelationshipSpecialtyStart DateEnd Date Lio Muñoz MD [address] [place] [address] PCP - GeneralFamily Medicine11/09/23 Ramone Herrera DO [address] [place] [address] Referring PhysicianNeurology05/19/23Team MemberRelationshipSpecialtyStart End Lio Muñoz MD [address] [place] [address] PCP - GeneralFamily Medicine11/09/23 Ramone Herrera DO [address] [place] [address] Referring PhysicianNeurology05/19/23Team MemberRelationshipSpecialtyStart End Date Lio Muñoz MD [address] [place] [address] PCP - GeneralFamily Medicine11/09/23 Ramone Herrera DO [address] [place] [address] Referring PhysicianNeurology05/19/23Team MemberRelationshipSpecialtyStart DateEnd Date Lio Muñoz MD [address] [place], [place] [phone] PCP - GeneralFamily Medicine11/09/23 Ramone Herrera DO [address] [place] [address] Referring PhysicianNeurology05/19/23Team MemberRelationshipSpecialtyStart End Date Lio Muñoz MD [address] [place], [place] [phone] PCP - GeneralFamily Medicine11/09/23 Ramone Herrera DO [address] [place] [address] Referring PhysicianNeurology05/19/23Team MemberRelationshipSpecialtyStart End Lio Muñoz MD [address] [place] [address] PCP - GeneralFamily Medicine11/09/23 Ramone Herrera DO [address] [place] [address] Referring PhysicianNeurology05/19/23Team MemberRelationshipSpecialtyStart End Date Lio Muñoz DO [address] [place] [address] PCP - GeneralFamily Medicine08/07/24Team MemberRelationshipSpecialtyStart DateEnd Date Lio Muñoz DO [address] [place] [address] PCP - GeneralFamily Medicine08/07/24Team MemberRelationshipSpecialtyStart DateEnd Date Lio Muñoz MD [address] [place] [address] PCP - GeneralFamily Medicine11/09/23 Ramone Herrera DO [address] [place] [address] Referring PhysicianNeurology05/19/23Team MemberRelationshipSpecialtyStart DateEnd Date Lio Muñoz MD [address] [place] [address] PCP - GeneralFamily Medicine11/09/23 Ramone Herrera DO [address] [place] [address] Referring PhysicianNeurology05/19/23 Team Status: Inactive Member Role Status Dates Lio Muñoz DO Attending Provider Active Start: August 23, 2024 End: August 23, 2024Team MemberRelationshipSpecialtyStart DateEnd Date Lio Muñoz DO [address] [place] [address] PCP - GeneralFamily Medicine08/07/24Team MemberRelationshipSpecialtyStart DateEnd Date Lio Muñoz MD [address] [place] [address] PCP - GeneralFamily Medicine11/09/23 Ramone Herrera DO [address] [phone] Referring PhysicianNeurology05/19/23Team MemberRelationshipSpecialtyStart DateEnd Date Lio Muñoz MD [address] [place], [place] [phone] PCP - GeneralFamily Medicine11/09/23 Ramone Herrera DO [address] [place], [place] [phone] Referring PhysicianNeurology05/19/23Team MemberRelationshipSpecialtyStart DateEnd Date Lio Muñoz MD [address] [place] [address] PCP - GeneralFamily Medicine11/09/23 Ramone Herrera DO [address] [phone] Referring PhysicianNeurology05/19/23Team MemberRelationshipSpecialtyStart End Lio Muñoz MD [address] [place] [address] PCP - GeneralFamily Medicine11/09/23 Ramone Herrera DO [address] [phone] Referring PhysicianNeurology05/19/23Team MemberRelationshipSpecialtyStart DateEnd Date Lio Muñoz DO [address] [place] [address] PCP - [facility]08/07/24Team MemberRelationshipSpecialtyStart DateEnd Date Lio Muñoz DO [address] [place] [address] PCP - [facility]08/07/24 Team Status: Active Member Role/Relationship Status [...] Visit (unrecogniz ed section and content) ReasonOnset QdohJdoahnagMNG49/02/2024Anesthesia consent obtainedReasonComments Toenail CareNon dm nail careReasonCommentsToenail CareNon DM nail careReason CommentsConvulsionsReasonCommentsSeizuresReasonCommentsMedicare breast and PelvicReasonCommentsIngrown ToenailLt great toenailReasonCommentsFollow-upF/U LT grt nail avulsionReasonCommentsToenail CareNon DM nail careFoot PainRT foot painReasonCommentsBreast LumpReasonCommentsNew PatientMassRight breast mass SpecialtyDiagnoses / ProceduresReferred By ContactReferred To ContactBreast Surgery Diagnoses Mastodynia, female Mass of right breast, unspecified quadrant Linn Red MD [address] [place] [address] Phone: tel: fax: Yesenia Serrano MD [address] [facility], [address] [address] Phone: tel: fax: Referral IDStatusReasonStart DateExpiration DateVisits RequestedVisits [id number] Review/[id number]qaR/U RT foot joint inj b9YrjpqmYwulcximJljtjz-lxTsbapvKbktjoitDdinfkodytG/U LT foot 1st met joint inj d2QwfzirOzzzh EwvuZpdbclvpQxgsbd84/15/2025DD adult dental restorations 10/08/24 under [facility] at [facility]. PAT completed 09/21/24. Consents obtained from Guardian Jessica Celso. KIM RN spoke to Yazmin MARES at [facility] on 10/05/24. Confirmed NPO after 2200. [place] address [address] [place] [address] Rd - [address] entrance. 0630 arrival time. Staff from [facility] will be accompanying pt DOS.ReasonCommentsPre-surgical EvaluationReasonCommentsFollow-up Right breast mass Scheduled Active and Recently Administ ered Medications (unrecognized section and content) Medication Order// aprepitant (EMEND) capsule (COMPLETED) 40 mg, Oral, ONCE, 1 dose, On Tue10/08/24 at 0730, Pre-op * 0723 (Given - Provider: Artur Sincliar) scopolamine (TRANSDERM-SCOP) 1 MG/3DAYS patch 1 mg, [...] score 7,8,9,10), PACU Now lidocaine-EPINEPHrine (XYLOCAINE) 2 %-1:251231 injection (CANCELED) PRN, Starting on Tue10/08/24 at [...] BE BASED ON THE PRIMARY CLINICAL RECORDS. [facility] [employer] [facility]. provides no warranty or guarantee of the accuracy or completeness of information in this document.
--- OUTSIDE RECORDS SUMMARY | 2025-02-02 06:43 | XMS_ITS | Patient Health Record ---
Author Organization [facility] Address [address] [place] [address] Care Team Providers Care Textile Engineer Name Role Phone Lexus Thapa Primary Care Provider [phone] Dr. Rickie Hebert Unavailable [phone] Irish Ramsey Unavailable [phone] Reason For Referral No Information Encounters Encounter Location Date Provider Diagnosis [facility] [address] [place] [address] 04/16/2024 Lexus Thapa [facility] [place] [address]/24/2025 Irish Shah dental procedure status Z98.818 and Encounter for dental examination and cleaning with abnormal findings Z01.21[facility] [address] [place] [address]/remberto ThapaDental caries on pit and fissure surface [...] Garg, 0 05/01/2025 09:30:00 AM, [address] [place], [address], Insurance Providers Payer Name Payer Address Payer Phone Subscriber Number Group Number Insured Name Patient Relationship to Insured Coverage Start Date Coverage End Date D[place] [address] [place] [phone] [id number] Micaela CARD - patient is the [id number] 2022
[2025-02-03 07:09] LABS: Lithium (Eskalith(R)), Serum 1.3 mmol/L (0.5-1.2)
== END 2025-02-02 06:39 | disposition home or self-care (01) ==
LOC: LAB 06:40
PROVIDERS: PCP Family Medicine; Visit Provider Family Medicine
DX: F31.9 Bipolar disorder, unspecified (principal); Z79.899 Other long term (current) drug therapy; R79.89 Other specified abnormal findings of blood chemistry
CPT/HCPCS: 36415; 80178

== ENCOUNTER 2025-02-11 06:38 | Outpatient (OUT) | payer MEDICARE, MEDICAID, SELFPAY ==
--- OUTSIDE RECORDS SUMMARY | 2023-09-02 05:50 | XMS_ITS ---
Author Organization [facility] Address [address] [place] [address] Care Team Providers Care Opticianry Teacher Name Role Phone Lexus Thapa Primary Care Provider REASON FOR VISIT NEW PATIENT DENTAL EXAM Encounters Encounter Location Date Provider Diagnosis [facility] [address] [place] [address] 09/02/2023 Lexus Thapa Plan Of Treatment Next Appt Details Provider Name:Rickie Garg, 0 05/01/2025 09:30:00 AM, [address] [place], [address], Progress Notes * PJ CARDDOB:1985 ([age] yo F)Acc No.[id number]:09/02/2023 Patient:?KAE CARDAH :?Lexus Thapa DDSDOB:1985???Age:38 Y ???Sex:FemaleDate:09/02/2023hone:[phone]:[address] [place] [address], [place], [place] Subjective: * Chief Complaints: * N EW PATIENT DENTAL EXAM * Electronic signature of Lexus Thapa DDS on 02/11/2025 at 06:41 AM ESTSign off status: Pending * Provider: Kody Thapa DDS Date: 0 09/02/2023 Generated for Printing/Faxing/eTransmitting on:?02/11/2025 06:41 AM EST
--- OUTSIDE RECORDS SUMMARY | 2023-09-23 05:25 | XMS_ITS ---
Author Organization [facility] Address [address] [facility] [place] [address] Care Team Providers Care Bobbin Cleaner Hand Name Role Phone Lexus Thapa Primary Care Provider [phone] Dr. Rickie Hebert Unavailable [phone] REASON FOR VISIT NEW PT EXAM Encounters Encounter Location Date Provider Diagnosis [facility] [address] [facility] [place] [address] 09/23/2023 Rickie Garg Plan Of Treatment Next Appt Details Provider Name:Rickie Garg, 0 05/01/2025 09:30:00 AM, [address] [place], [address], Progress Notes * PJ CARDDOB:1985 ([age] yo F)Acc No.[id number]:09/23/2023 Patient:?PJ CARD :?ROBERT CheneyOB:1985???Age:38 Y???Sex: FemaleDate:09/23/2023hone:[phone]:[address] [place] [address]Abt:Lexus Thapa Subjective: * Chief Complaints: * N EW PT EXAM * Electronic signature of Dr. Rickie Garg , [facility], [id number] on 02/11/2025 at 06:41 AM ESTSign off status: Pending * Provider: Tru Garg DDS Date: 0 09/23/2023 Generated for Printing/Faxing/eTransmitting on:?02/11/2025 06:41 AM EST
--- OUTSIDE RECORDS SUMMARY | 2023-11-01 08:30 | XMS_ITS ---
Author Organization [facility] Address [address] [place] [address] Care Team Providers Care Shrimp Peeler Name Role Phone Lexus Thapa Primary Care Provider [phone] REASON FOR VISIT NEW PT EXAM Encounters Encounter Location Date Provider Diagnosis [facility] [address] [place] [address] 11/01/2023 Lexus Thapa Plan Of Treatment Next Appt Details Provider Name:Rickie Garg, 0 05/01/2025 09:30:00 AM, [address] [place], [address], Progress Notes * PJ CARDDOB:1985 ([age] yo F)Acc No.[id number]:11/01/2023 Patient:?PJ CARD :?Lexus Thapa DDSDOB:1985???Age:38 Y ???Sex:FemaleDate:11/01/2023hone:[phone]:[address] [place] [address], [place], [place] Subjective: * Chief Complaints: * N EW PT EXAM * Electronic signature of Lexus Thapa DDS on 02/11/2025 at 06:41 AM ESTSign off status: Pending * Provider: Kody Thapa DDS Date: 0 11/01/2023 Generated for Printing/Faxing/eTransmitting on:?02/11/2025 06:41 AM EST
--- OUTSIDE RECORDS SUMMARY | 2024-05-04 04:20 | XMS_ITS ---
Author Organization [facility] Address [address] [facility] [place] [address] Care Team Providers Care Dental Assistant Instructor Name Role Phone Lexus Thapa Primary Care Provider [phone] Dr. Rickie Hebert Unavailable [phone] REASON FOR VISIT tooth loose bottom right [place] Encounters Encounter Location Date Provider Diagnosis [facility] [address] [facility] [place] [address] 05/04/2024 Rickie Garg Plan Of Treatment Next Appt Details Provider Name:Rickie Garg, 0 05/01/2025 09:30:00 AM, [address] [place], [address], Progress Notes * PJ CARDDOB:1985 ([age] yo F)Acc No.[id number]:05/04/2024 Patient:?PJ CARD :?Rickie Garg DDSDOB:1985???Age:38 Y???Sex: FemaleDate:05/04/2024Phone:[phone]:[address] [place] [address]Ueu:Lexus Thapa Subjective: * Chief Complaints: * T ooth loose bottom right -[place] * Electronic signature of Dr. Rickie Garg , DMD, [id number] on 02/11/2025 at 06:41 AM ESTSign off status: Pending * Provider: Tru Garg DDS Date: 0 05/04/2024 Generated for Printing/Faxing/eTransmitting on:?02/11/2025 06:41 AM EST
--- OUTSIDE RECORDS SUMMARY | 2024-11-01 04:30 | XMS_ITS ---
Author Organization [facility] Servic es Address [address] [place] [address] Care Team Providers Care Grades 9 12 Tutor Name Role Phone Lexus Thapa Primary Care Provider [phone] Dr. Rickie Hebert Unavailable [phone] REASON FOR VISIT 6 month f/u Encounters Encounter Location Date Provider Diagnosis [facility] [place] [address] [place] [address] 2024 Rickie Garg Plan Of Treatment Next Appt Details Provider Name:Rickie Garg, 0 05/01/2025 09:30:00 AM, [address], [address], Progress Notes * PJ CARDDOB:1985 ([age] yo F)Acc No.[id number]:11/01/2024 Patient:?PJ CARD :?ROBERT CheneyOB:1985???Age:39 Y???Sex: FemaleDate:11/01/2024Phone:[phone]:[address] [place] [address]Hnp:Lexus Thapa Subjective: * Chief Complaints: * 6 month f/u * Electronic signature of Dr. Rickie Garg , [facility], [id number] on 02/11/2025 at 06:41 AM ESTSign off status: Pending * Provider: Tru Garg DDS Date: 0 11/01/2024 Generated for Printing/Faxing/eTransmitting on:?02/11/2025 06:41 AM EST
--- OUTSIDE RECORDS SUMMARY | 2024-11-13 03:45 | XMS_ITS ---
Author Organization [facility] Address [address] [place] [address] Care Team Providers Care Nuclear Monitoring Technician Name Role Phone Lexus Thapa Primary Care Provider REASON FOR VISIT CROWN PREP Encounters Encounter Location Date Provider Diagnosis [facility] [address] [place] [address] 11/13/2024 Lexus Thapa Plan Of Treatment Next Appt Details Provider Name:Rickie Garg, 0 05/01/2025 09:30:00 AM, [address] [place], [address], Progress Notes * STEPHIEPJDOB:1985 ([age] yo F)Acc No.[id number]:11/13/2024 Patient:?PJ CARD :?Lexus Thapa DDSDOB:1985???Age:39 Y ???Sex:FemaleDate:11/13/2024Phone:[phone]:[address] [place] [address], [place] Subjective: * Chief Complaints: * C ROWN PREP * Electronic signature of Lexus Thapa DDS on 02/11/2025 at 06:40 AM ESTSign off status: Pending * Provider: Kody Thapa DDS Date: 0 11/13/2024 Generated for Printing/Faxing/eTransmitting on:?02/11/2025 06:40 AM EST
--- OUTSIDE RECORDS SUMMARY | 2024-12-11 04:30 | XMS_ITS ---
Author Organization [facility] Address [address] [place] [address] Care Team Providers Care Building Manager Name Role Phone Lexus Thapa Primary Care Provider [phone] REASON FOR VISIT CROWN SEAT Encounters Encounter Location Date Provider Diagnosis [facility] [address] [place] [address] 12/11/2024 Lexus Thapa Plan Of Treatment Next Appt Details Provider Name:Rickie Garg, 0 05/01/2025 09:30:00 AM, [address], [place], [address], Progress Notes * PJ CARDDOB:1985 ([age] yo F)Acc No.[id number]:12/11/2024 Patient:?PJ CARD :?Lexus Thapa DDSDOB:1985???Age:39 Y ???Sex:FemaleDate:12/11/2024Phone:[phone]:[address] [place] [address], [place], [place] Subjective: * Chief Complaints: * C ROWN SEAT * Electronic signature of Lexus Thapa DDS on 02/11/2025 at 06:40 AM ESTSign off status: Pending * Provider: Kody Thapa DDS Date: Generated for Printing/Faxing/eTransmitting on:?02/11/2025 06:40 AM EST
--- OUTSIDE RECORDS SUMMARY | 2025-01-30 09:10 | XMS_ITS | Encounter Summary ---
Author Organization [facility] Address [address] [place] [address] Care Team Providers Care Informatica Name Role Phone Ramone Herrera DO Unavailable [phone] Lio Muñoz MD Primary Care Provider Reason for Visit * ReasonCommentsToenail CareNon DM nail careFoot PainB/L foot pain , requesting an injection Encounter Details DateTypeDepartmentCare Team (Latest Contact Info)Wedbqntbfau49/10/2025 9:10 AM ESTProcedure Visit [facility] [address] [place] [address] Bhanu Charlton, DPM FACFAS [address] [place] [address] Arthritis of foot, left (Primary Dx); Onychomycosis; Pain in left toe(s); Other enthesopathy of left foot and ankle; Pain in right toe(s) Social History Tobacco UseTypesPacks/DayYears UsedDateSmoking Tobacco: NeverSmokeless Tobacco: Never Tobacco Cessation:Counseling Given: Yes Alcohol UseStandard Drinks/WeekCommentsNever0 (1 standard drink = 0.6 oz pure alcohol)CommentsUnknownSex and Gender InformationValueDate RecordedSex Assigned at BirthNot on fileLegal BjqQgthze54/15/2023 10:14 PM EDTGender IdentityNot on fileSexual OrientationNot on filedocumented as of this encounter Last Filed Vital Signs Vital SignReadingTime TakenCommentsBlood Eoujdlml037/6801/30/2025 9:12 AM EST Eoheh610801/30/2025 9:12 AM ESTTemperature--Respiratory Rate--Oxygen Saturation-- Inhaled Oxygen Concentration--Tpawgm35.4 kg (197 lb)01/30/2025 9:12 AM ESTHeight 162.6 cm (5' 4 )01/30/2025 9:12 AM ESTBody Mass Index33.8101/30/2025 9:12 AM EST documented in this encounter Progress Notes * Bhanu Charlton DPM FACFAS - 01/30/2025 9:10 AM EST Images from the original note were not included. patient: Migdalia Conenlly : 1985 PCP: Lio Muñoz MD SUBJECTIVE [...] deficit disorder with hyperactivity 05/25/2012 Bipolar disorder ([facility]) 05/04/2023 Essential hypertension 05/04/2023 Seizure disorder ([facility]) 05/04/2023 Pure hypercholesterolemia 05/04/2023 Anger reaction 07/14/2023 Convulsion ([facility]) 07/14/2023 Alteration of consciousness 07/14/2023 Development delay 07/14/2023 Resolved Ambulatory Problems Diagnosis Date Noted No Resolved Ambulatory Problems Past Medical History: Diagnosis Date ADHD (attention deficit hyperactivity disorder) Astigmatism Convulsions ([facility]) Developmental delay GERD (gastroesophageal reflux disease) Hypercholesterolemia Hyperopia Hypertension Impulse control disorder Intellectual disability Mental disorder Mood disorder OCD (obsessive compulsive disorder) Osteopenia PTSD (post-traumatic stress disorder) Seizures ([facility]) Medications: Current Outpatient Medications: acetaminophen (Tylenol) 325 [...] subungual debris. They were painful to palpation 27181 on the right [address]297 on the left. VASC: DP /PT were nonpalpable bilateral. Capillary refill time < 3 seconds Digits 1-5 bilateral NEURO: [place] Ami 5.07 monofilament was intact B/L. Vibratory [...] modifications she will be going to an incident response consultant to have new shoes purchase follow up 2 weeks for reexamine. DAY Laura documented in this encounter Plan of Treatment DateTypeDepartmentCare Team (Latest Contact Info)Uwkfdfzrafl80/22/2025 10:00 AM ESTOffice Visit [facility] [address] [place] [address] Josh Elizalde DPM [address] [address] 02/20/2025 10:00 AM ESTClinical Support [facility] [address] [place] [address] Bhanu Charlton DPM FACFAS [address] [place] [address] 04/10/2025 9:10 AM ESTProcedure Visit [facility] [address] [facility] [place] [address] Bhanu Charlton, DPM FACFAS [address] [facility] [place] [address] documented as of this encounter Visit Diagnoses Diagnosis Arthritis of foot, left- Primary Onychomycosis Dermatophytosis of nail Pain in left toe(s) Other enthesopathy of left foot and ankle Pain in right toe(s) Other enthesopathy of left foot and ankle- Primary documented in this encounter Care Teams Team MemberRelationshipSpecialtyStart DateEnd Date Lio Muñoz MD [address] [place] [address] PCP - GeneralFamily Medicine11/09/23 Ramone Herrera DO [address] [place] [address] Referring PhysicianNeurology05/19/23documented as of this encounter
--- OUTSIDE RECORDS SUMMARY | 2025-02-11 06:41 | XMS_ITS | Clinical Summary ---
Author Organization [facility] Address [address] [place] [address] Care Team Providers Care Unified Communications Architect Name Role Phone Ramone Herrera DO Unavailable [phone] Lio Muñoz MD Primary Care Provider [phone] Allergies Active AllergyReactionsCriticalityNoted NlbeVcbzpobdUytayerhunfFqdxibw92/19/2013 CycdnlnriboeMflnxxk29/19/4742LltbuuqugncnvbxbAfralrp24/07/2024extromethorphan Hbr06/09/2012Food06/09/2012 Peterson Slaw KwybhfecpkKiwrtmb50/19/4735ZtqhzfhwoMcyeivb51/19/0306GpnxxdfwucTtgcfkw43/19/2013 Snaabfkayyresltp95/19/2013Valproic UobuQttroam64/24/2019 Per OSH H+P 08/2018 Medications MedicationSigDispense QuantityRefillsLast [...] tablet Take 300 mg by mouth at aovlywy5304/27/2023ctive lamoTRIgine (LaMICtal) 200 MG tablet Take 1 [...] or split..Active Active Problems ProblemNoted DateDiagnosed DateAnger ixbamwrh10/23/2024 Overview (07/14/2023): Seemingly stable per report from the patient's caregiver today. PLAN: - Follow closely with psychiatry and primary care provider for management Sibvukljxq70/23/2024 Overview (07/14/2023): The patient has a history [...] mental status in the future Alteration of /23/2024 Overview (07/14/2023): The patient and caregiver deny any episodes of altered consciousness or awareness since the prior appointment at [facility]. Development delay07/14/2023 Overview (07/14/2023): Risk factor for seizures. Bipolar ygwwoqum48/13/2024Essential hqvhuwgjdfzk92/13/2024Seizure disorder 05/04/2023ure haljwkmsemwigbqsspol30/13/2024ttention deficit disorder with souctwmuggixi59/04/2013 Overview (05/04/2023): Attention deficit disorder with hyperactivity Encounters DateTypeDepartmentCare GzfhGhwxjgmmoim78/10/2025 9:10 AM ESTProcedure Visit [facility] [address] [place] [address] Bhanu Charlton, DPM FACFAS Arthritis of foot, left (Primary Dx); Onychomycosis; Pain in left toe(s); Other enthesopathy of left foot and ankle; Pain in right toe(s)01/30/2025amboo flowsheet [facility] [address] [place] [address] Bhanu Charlton, DPM FACFAS 11/15/2024bstract [facility] [address] [place] [address] Bhanu Charlton, DPM FACFAS 11/14/2024 9:00 AM EDTProcedure Visit [facility] [address] [place] [address] Bhanu Charlton, DPM FACFAS Onychomycosis (Primary Dx); Pain in left toe(s); Pain in right toe(s)11/14/2024amboo [facility] [address] [place] [address] Bhanu Charlton, DPM FACFAS from Last 3 Months Family History RelationNameStatusCommentsMotherAlive Social History Tobacco UseTypesPacks/DayYears UsedDateSmoking Tobacco: NeverSmokeless Tobacco: Never Tobacco Cessation:Counseling Given: Yes Alcohol UseStandard Drinks/WeekCommentsNever0 (1 standard drink = 0.6 oz pure alcohol)CommentsUnknownSex and Gender InformationValueDate RecordedSex Assigned at BirthNot on fileLegal HddLsuuiy12/15/2023 10:14 PM EDTGender IdentityNot on fileSexual OrientationNot on file Last Filed Vital Signs Vital SignReadingTime TakenCommentsBlood Krpwpfqi921/6801/30/2025 9:12 AM EST Ndnxa901601/30/2025 9:12 AM ESTTemperature--Respiratory Ixif379906/04/2024 10:33 AM EDTOxygen Fyvsnpwnjg09%06/04/2024 10:33 AM EDTInhaled Oxygen Concentration-- Ylhckb82.4 kg (197 lb)01/30/2025 9:12 AM PHNCgnknu024.6 cm (5' 4 )01/30/2025 9:12 AM ESTBody Mass Index33.8101/30/2025 9:12 AM EST Plan of Treatment DateTypeDepartmentCare Team (Latest Contact Info)Exepiwxernk76/22/2025 10:00 AM ESTOffice Visit [facility] [address] [place] [address] Josh Elizalde DPM [address] [address] 02/20/2025 10:00 AM ESTClinical Support [facility] [address] [place] [address] Bhanu Charlton, DPM FACFAS [address] [place] [address] 04/10/2025 9:10 AM ESTProcedure Visit [facility] [address] [place] [address] Bhanu Charlton, DPM FACFAS [address] [place] [address] Insurance [address] [place] [address] Care Teams Team MemberRelationshipSpecialtyStart DateEnd iLo Muñoz MD [address] [place] [phone] PCP - GeneralFamily Medicine11/09/23 Ramone Herrera DO [address] [facility] [address] [place] [address] Referring PhysicianNeurology05/19/23
--- OUTSIDE RECORDS SUMMARY | 2025-02-11 06:41 | XMS_ITS | Patient Health Record ---
Author Organization [facility] Address [address] [place] [address] Care Team Providers Care Inclusion Specialist Name Role Phone Lexus Thapa Primary Care Provider [phone] Dr. Rickie Hebert Unavailable [phone] Irish Ramsey Unavailable [phone] Reason For Referral No Information Encounters Encounter Location Date Provider Diagnosis [facility] [address] [place] [address] 04/16/2024 Lexus Thapa [facility] [place] [address]/24/2025 Irish Shah dental procedure status Z98.818 and Encounter for dental examination and cleaning with abnormal findings Z01.21[facility] [address] [place] [address]/remberto ThapaDental caries on pit and fissure surface penetrating into dentin K02.52 Assessments Encounter Date Diagnosis (ICD Code) Assessment Notes Treatment Notes Treatment Clinical Notes Section Notes 06/19/2024 Dental caries on pit and fissure surface penetrating into dentin (ICD-10 - K02.52) 04/16/2024Other dental procedure status (ICD-10 - Z98.818)04/16/2024Encounter for dental examination and cleaning with abnormal findings (ICD-10 - Z01.21) Plan Of Treatment Next Appt Details Provider Name:Rickie Garg, 0 05/01/2025 09:30:00 AM, [address] [facility] [place], [address], Insurance Providers Payer Name Payer Address Payer Phone Subscriber Number Group Number Insured Name Patient Relationship to Insured Coverage Start Date Coverage End Date [employer] [place] [address] [place] [address] [phone] [id number] Micaela CARD - patient is the [id number] 2022
--- OUTSIDE RECORDS SUMMARY | 2025-02-11 06:41 | XMS_ITS | Clinical Summary ---
Author Organization [facility] Address [address] [facility] [place] [address] Care Team Providers Care Newsagent Name Role Phone Unavailable Primary Care Provider Unavailabl e Source Comments The following information is NOT included in Care Everywhere downloads:Psychiatric notes, ECG results, Cardiac Rehab notes, Pulmonary Function notes, data from SmartForms (includes but not limited toPregnancy data,audiograms, eye exams, pre-surgical evaluation notes, well-child exam data).[facility] Allergies Active AllergyReactionsCriticalityNoted NqxwSsseyqymNbpenqg10/19/2013moxicillin 06/09/2012Valproic Acid09/13/2018 Per OSH H+P 08/2018 Food06/09/2012 Peterson Slaw Jasdltmbtf11/19/9901Ptnzezqbx62/19/8051Vholdzruym25/19/2013Sympathomimetics 06/09/2012Dextromethorphan Hbr06/09/2012 Medications MedicationSigDispense QuantityRefillsLast FilledStart DateEnd [...] AM EDT5Active Active Problems ProblemNoted DateDiagnosed DateDissociative towskyrd95/11/2024Impulse control /11/2024Gastroesophageal reflux rxdkqld6402/01/20246892Lkjwtjlc30/11/2024 Posttraumatic stress enlljsgx67/08/2024ipolar /03/2024Caries 09/05/2018 Overview (09/05/2018): Added automatically from request for surgery [id number] Dental decay08/26/2016 Overview (08/26/2016): Added automatically from request for surgery [id number] Unspecified dental ssrlsd9506/09/2012Chronic periodontitis, bhsakopibhc13/19/2013 Unconfirmed kesaasqub10/19/2013Moderate intellectual myovuvifuelz79/04/2013 Attention deficit hyperactivity disorder (ADHD)05/25/2012 Overview (06/03/2018): Attention deficit disorder with hyperactivity Immunizations ImmunizationAdministration DatesNext DueDTP (CVX=01)09/06/1988,1986, 1986,1986Hep B (peds/adol, 3-dose) (CVX=08)05/04/2001,11/10/2000, 10/10/2000Hib, unspecified formulation (CVX=17)01/23/1988Influenza, injectable, quadrivalent, preservative (SZK=712)12/15/2016Influenza, injectable, quadrivalent, preservative free (NRA=545)12/17/2020,11/28/2019,11/30/2017, 12/12/2014Influenza, injectable, trivalent, preservative (ICT=987)11/10/2010MMR, Jhxxynz-Oogwe-Edqteca (CVX=03)05/30/1998,04/30/1987Meningococcal conjugate (MCV4,Men-ACWY), Menactra (MCV4P) (AFZ=932)07/07/2006Pfizer Monovalent (12+ yrs) SARS-COV-2 (COVID-19) vaccine, mRNA, spike protein, LNP, pres. free, 30mcg/0.3mL dose (GUO=210)03/25/2020,1Polio, oral (OPV) (CVX=02)12/03/1991, 09/06/1988,1986,1986Td (adult), unspecified formulation (KXE=033) 11/29/2001,12/03/1991Tdap (KWC=177)11/12/2019 Social History Tobacco UseTypesPacks/DayYears UsedDateSmoking Tobacco: NeverSmokeless Tobacco: NeverAlcohol UseStandard Drinks/WeekCommentsNever0 (1 standard drink = 0.6 oz pure alcohol)Substance UseTypesUse/WeekCommentsNeverCommentsNoSex and Gender InformationValueDate RecordedSex Assigned at BirthNot on fileLegal Sex Vnwjxn6701/12/2012 4:11 PM ESTGender IdentityNot on fileSexual OrientationNot on file Last Filed Vital Signs Vital SignReadingTime TakenCommentsBlood Zwfdqshy347/8908 10:00 AM EDTok for DC per Dr. Moralez, pt will take home BP vqbcJsfuq50313/18/2025 10:00 AM EDT Prxewzxokqq03.6 ??C (97.9 ??F)10/08/2024 10:00 AM EDTRespiratory Rate17 10/08/2024 10:00 AM EDTOxygen Ggreipyrqk17%10/08/2024 10:00 AM EDTInhaled Oxygen Concentration--Phmrhr68.6 kg (182 lb)10/08/2024 7:13 AM MBGPggoyl135.1 cm (5' 5 )10/08/2024 7:13 AM EDTBody Mass Index30.29010/08/2024 7:13 AM EDT Plan of Treatment Health MaintenanceDue DateLast DoneCommentsAnnual Wellness Visit (G0438) 02/21/1999HIV Test2001Hepatitis C Bfjqptuv68/14/2005Hepatitis A (HAV) Vaccine (optional start 19+ years)2005Pap Smear07/05/2007HPV Vaccine (optional start 27-45 years)2013COVID-19 Vaccine ( season) , 12/17/2020, 03/25/2020, Additional history existsInfluenza Vaccine (#1)/, 11/28/2019, 11/30/2017, Additional history existsDental Oral Exam/, 12/15/2023, 3Dental Tfsvoqsnhbu17/19/202608/Dental X-Ray: Gwvpfgxji46/, 12/15/2023Tetanus (Td or Tdap) Klnwyqo66, 11/29/2001, 12/03/1991Shingles (RZV) Vaccine (1 of 2)2036Hepatitis B (HBV) Vaccine Sikgncanh68/14/2002, 11/10/2000, 10/10/2000Tdap GegprbiCnkdpjeng10/21/2020 Mammography (shared decision-making, age 35-39)Xtgzodjam60/19/2025Mammography Lsbnvzgxegdz01/19/2025, 08/09/2024Pneumococcal Vaccine(s)Aged OutNo longer eligible based on patient's age to complete this topic Procedures Procedure NamePriorityDate/TimeAssociated DiagnosisCommentsPROPHY ADULT 14 & YCFAXWqctdjy28/18/2025 12:00 AM EDTCOMPREHENSIVE JLCLXszijig79/18/2025 12:00 AM EDTfrom Last 3 Months or Most Recently Relevant to Health Maintenance Insurance * Guarantor: Migdalia Connelly EAccount TypeRelation to PatientDate of BirthPhone Billing AddressPersonal/VbidaxUfpu65/14/[address] [address]
--- OUTSIDE RECORDS SUMMARY | 2025-02-11 06:41 | XMS_ITS | Encounter Summary ---
Author Organization [facility] Address [address] [place] [address] Care Team Providers Care Religious Education Teacher Name Role Phone Ramone Herrera DO Unavailable [phone] Lio Muñoz MD Primary Care Provider Encounter Details DateTypeDepartmentCare Team (Latest Contact Info)Xrvqsinvhxi83/10/2025amboo flowsheet [facility] [address] [place] [address] Bhanu Charlton, DAY FACFAS [address] [place] [address] Social History Tobacco UseTypesPacks/DayYears UsedDateSmoking Tobacco: NeverSmokeless Tobacco: NeverAlcohol UseStandard Drinks/WeekCommentsNever0 (1 standard drink = 0.6 oz pure alcohol)CommentsUnknownSex and Gender InformationValueDate Recorded Sex Assigned at BirthNot on fileLegal VsiLweaup12/15/2023 10:14 PM EDTGender IdentityNot on fileSexual OrientationNot on filedocumented as of this encounter Plan of Treatment DateTypeDepartmentCare Team (Latest Contact Info)Aogzrwhvuep13/22/2025 10:00 AM ESTOffice Visit [facility] [address] [place] [phone] oJsh Elizalde DPM [address] [address] 02/20/2025 10:00 AM ESTClinical Support [facility] [address] [place] [address] Bhanu Charlton, DPM FACFAS [address] [place] [address] 04/10/2025 9:10 AM ESTProcedure Visit [facility] [address] [place] [address] Bhanu Charlton, DPM FACFAS [address] [place] [address] documented as of this encounter Visit Diagnoses Not on filedocumented in this encounter Care Teams Team MemberRelationshipSpecialtyStart DateEnd Date Loi Muñoz MD [address] [place] [id number] PCP - GeneralFamily Medicine11/09/23 Ramone Herrera DO [address] [address] Referring PhysicianNeurology05/19/23documented as of this encounter
[2025-02-12 08:08] LABS: Lithium (Eskalith(R)), Serum 1.2 mmol/L (0.5-1.2)
== END 2025-02-11 06:39 | disposition home or self-care (01) ==
LOC: LAB 06:38
PROVIDERS: PCP Family Medicine; Visit Provider Family Medicine
DX: Z79.899 Other long term (current) drug therapy (principal); R79.9 Abnormal finding of blood chemistry, unspecified
CPT/HCPCS: 36415; 80178